=== PATIENT | female | born 1945 | race Caucasian/White ===

== ENCOUNTER 2016-07-17 10:48 | Outpatient (RCR) | payer MEDICARE, OTHER ==
--- OUTSIDE RECORDS SUMMARY | 2016-04-25 08:10 | XMS REPORT | Continuity of Care Document ---
Author Author [facility] Organization [facility] Address Unknown Phone Unavailable Care Team Providers Care Medical Psychotherapist Name Role Phone Shonda Robbins PCP [phone] Source Comments Some departments are not documenting in the electronic medical record. If you do not see the information that you expected, contact Release of Information in the Health Information Management department at [phone] for further assistance in locating additional records.[facility] Active Allergies and Adverse Reactions No Known Allergies Current Medications Prescription Sig. Disp. Refills Start End Date Status Date LEVOTHYROXINE SODIUM Take 50 mg by mouth. Active (LEVOTHYROXINE PO) acyclovir (ZOVIRAX) 400 Take 400 mg by mouth Active mg tablet Twice Daily. estrogens, conjugated,+, Apply 0.5 g to affected Active (PREMARIN) 0.625 mg/g area Every Mo & Tu. vaginal cream mupirocin (BACTROBAN) 2 % Apply to affected area Active topical ointment Twice Daily. fluconazole (DIFLUCAN) 40 Take 200 mg by mouth Active mg/mL oral suspension Daily. FOLIC ACID PO Take 2 mg by mouth Twice Active Daily. potassium chloride,+, Take 20 mEq by mouth Active (MICRO-K) 10 mEq capsule Daily. MULTIVITAMINS Take 1 Tab by mouth Active (MULTI-VITAMIN PO) Daily. CALCIUM CARBONATE/VITAMIN Take 600 mg by mouth Active D2 (CALCIUM + VITAMIN D Daily. PO) magnesium oxide (MAG-OX) Take 400 mg by mouth Active 400 mg tablet Daily. lorazepam (ATIVAN) 0.5 mg Take 1 mg by mouth Twice Active tablet Daily as needed. albuterol 0.083% Inhale 2.5 mg solution as Active (PROVENTIL; VENTOLIN) 2.5 directed As Needed for mg /3 mL (0.083 %) Wheezing. nebulizer solution Active Problems Problem Noted Date SAH (subarachnoid hemorrhage) (HCC) 12/05/2009 Multiple myeloma, without mention of having achieved remission 12/02/2009 Personal history of DVT (deep vein thrombosis) 12/02/2009 Overview: Right leg S/P insertion of IVC (inferior vena caval) filter 12/02/2009 Thrombocytopenia (HCC) 12/02/2009 Social History Tobacco Use Types Packs/Day Years Used Date Former Smoker Quit: 07/21/1979 Alcohol Use Drinks/Week oz/Week Comments No Last Filed Vital Signs Vital Sign Reading Time Taken Blood Pressure 112/72 12/05/2009 4:14 PM CDT Pulse 112 12/05/2009 4:14 PM CDT Temperature 36.7 C (98.1 F) 12/05/2009 4:14 PM CDT Respiratory Rate - - Height 1.575 m (5' 2") 12/04/2009 12:04 PM CDT Weight 62.37 kg (137 lb 8 oz) 12/05/2009 8:42 AM CDT Body Mass Index 25.14 12/05/2009 8:42 AM CDT Oxygen Saturation 96% 12/05/2009 4:14 PM CDT Plan of Care Health Maintenance Due Date Last Done Comments Physical (Comprehensive) 1954 Exam Pertussis Vaccine 1958 Tetanus Vaccine 1964 Breast Cancer Screening 1987 Colorectal Cancer 1997 Screening Shingles Vaccine 2007 Osteoporosis Screening 2012 Prevnar/Pneumovax (#1) 2012 Influenza Vaccine 03/21/2016 Results from Last 3 Months Not on file
[2016-04-25 08:47] LABS: BASOPHILS % (AUTO) 1 % (0-10); EOSINOPHILS # (AUTO) 0.1 10^3/uL (0.0-0.3); EOSINOPHILS % (AUTO) 3 % (0-10); LYMPHOCYTES # (AUTO) 0.5 X 10^3 (1.0-4.0); LYMPHOCYTES % (AUTO) 28 % (12-44); MEAN CORPUSCULAR HEMOGLOBIN 34 PG (25-34); MEAN CORPUSCULAR HGB CONC 35 G/DL (32-36); MEAN CORPUSCULAR VOLUME 98 FL (80-99); MEAN PLATELET VOLUME 10.6 FL (7.4-10.4); MONOCYTES # (AUTO) 0.5 X 10^3 (0.0-1.0); MONOCYTES % (AUTO) 28 % (0-12); NEUTROPHILS # (AUTO) 0.8 X 10^3 (1.8-7.8); NEUTROPHILS % (AUTO) 41 % (42-75); PLATELET COUNT 140 10^3/uL (130-400); RED BLOOD COUNT 4.01 10^6/uL (4.35-5.85); RED CELL DISTRIBUTION WIDTH 13.9 % (10.0-14.5); WHITE BLOOD COUNT 1.9 10^3/uL (4.3-11.0)
[2016-04-25 09:14] LABS: ALBUMIN 3.9 G/DL (3.2-4.5); BILIRUBIN,TOTAL 1.1 MG/DL (0.1-1.0); CALCIUM 9.5 MG/DL (8.5-10.1); CREATININE SERUM 1.04 MG/DL (0.60-1.30); POTASSIUM 4.3 MMOL/L (3.6-5.0)
[2016-04-26 01:31] LABS: LIGHT CHAIN KAPPA SERUM QUANT 41.39 mg/L (3.30-19.40); LIGHT CHAIN LAMBDA SERUM QUANT 27.03 mg/L (5.71-26.30)
[2016-04-30 16:05] LABS: BASOPHILS % (AUTO) 1 % (0-10); EOSINOPHILS # (AUTO) 0.1 10^3/uL (0.0-0.3); EOSINOPHILS % (AUTO) 3 % (0-10); LYMPHOCYTES # (AUTO) 0.7 X 10^3 (1.0-4.0); LYMPHOCYTES % (AUTO) 36 % (12-44); MEAN CORPUSCULAR HEMOGLOBIN 33 PG (25-34); MEAN CORPUSCULAR HGB CONC 34 G/DL (32-36); MEAN CORPUSCULAR VOLUME 97 FL (80-99); MEAN PLATELET VOLUME 10.7 FL (7.4-10.4); MONOCYTES # (AUTO) 0.6 X 10^3 (0.0-1.0); MONOCYTES % (AUTO) 35 % (0-12); NEUTROPHILS # (AUTO) 0.5 X 10^3 (1.8-7.8); NEUTROPHILS % (AUTO) 26 % (42-75); PLATELET COUNT 138 10^3/uL (130-400); RED BLOOD COUNT 3.87 10^6/uL (4.35-5.85); RED CELL DISTRIBUTION WIDTH 13.8 % (10.0-14.5); WHITE BLOOD COUNT 1.8 10^3/uL (4.3-11.0)
[2016-04-30 16:44] LABS: ALANINE AMINOTRANSFERASE 28 U/L (0-55); ALBUMIN 3.6 G/DL (3.2-4.5); ANION GAP 13 MMOL/L (5-14); ASPARTATE AMINO TRANSFERASE 18 U/L (5-34); BILIRUBIN,TOTAL 0.8 MG/DL (0.1-1.0); BLOOD UREA NITROGEN 11 MG/DL (7-18); BUN/CREATININE RATIO 13; CALCIUM 9.5 MG/DL (8.5-10.1); CARBON DIOXIDE 16 MMOL/L (21-32); CHLORIDE 103 MMOL/L (98-107); CREATININE SERUM 0.86 MG/DL (0.60-1.30); GFR ESTIMATED > 60; GLUCOSE 114 MG/DL (70-105); POTASSIUM 4.1 MMOL/L (3.6-5.0); SODIUM 132 MMOL/L (135-145); TOTAL PROTEIN 7.1 G/DL (6.4-8.2)
[2016-05-09 16:07] LABS: CALCIUM 8.9 MG/DL (8.5-10.1); CREATININE SERUM 0.93 MG/DL (0.60-1.30); POTASSIUM 3.7 MMOL/L (3.6-5.0)
[~2016-07-17 10:48] MED LIST: ACYC-109 PO; ACYC400T PO; ACYC400T79; ASP81CT; CALC-9 PO; CLD600T; CYAN10006 PO; DAPS100T3 PO; DECADRON; DENOSUMAB 60 MG/1 ML (PROLIA) CANCER CTR SQ SCH; DXM4T PO; ESCI20TA; FERR-74 PO; FLC100T1; FLC1T; FLUC200T; FLUO20CA25 PO; HYDR-3583 PO; HYDR1TAB PO; KCL20TCR; KCL20TCR PO; LENA15CA PO; LETR2.5T5 PO; LEVO500T78 PO; LEVO500T80 PO; LEVO75TA6 PO; LORA1TAB PO; LOVA20TA2 PO; LVT.05T PO; MGX400T; MPR22T; MPR22TI; MULT-418; MULT-608 PO; MULT1TAB63; NF-SYM625 PO; NIAC1CAP PO; OLAN2.5T19 PO; OMEP20CA12 PO; OMEP20TA2 PO; OXYC-309 PO; OXYC-471 PO; OXYC1CAP PO; OXYCODONE; POTA20TA8 PO; PREMARIN VAG CR45 GM VG; STOOL SOFTENER; WRF1T; [UNRECOGNIZED DRUG - OTHER]
== END 2016-07-24 | disposition home or self-care (01) ==
LOC: ONC 10:48
PROVIDERS: ATTEND Internal Medicine Hematology & Oncology
DX: C90.00 Multiple myeloma not having achieved remission (principal); C50.412 Malignant neoplasm of upper-outer quadrant of left female breast; M85.80 Other specified disorders of bone density and structure, unspecified site; Z92.21 Personal history of antineoplastic chemotherapy; Z92.3 Personal history of irradiation; Z79.811 Long term (current) use of aromatase inhibitors; Z79.899 Other long term (current) drug therapy; Z45.2 Encounter for adjustment and management of vascular access device
CPT/HCPCS: 36415; 36591; 80048; 80053; 82232; 82306; 82728; 82784; 83883; 85025; 87040; 96372; 96523; 99213

== ENCOUNTER 2016-11-05 10:11 | Outpatient (RCR) | payer MEDICARE, OTHER ==
--- OUTSIDE RECORDS SUMMARY | 2016-08-08 09:54 | XMS REPORT | Continuity of Care Document ---
Author Author [facility] Organization [facility] Address Unknown Phone Unavailable Care Team Providers Care Veterinary Milk Specialist Name Role Phone Shonda Robbins PCP [phone] Source Comments Some departments are not documenting in the electronic medical record. If you do not see the information that you expected, contact Release of Information in the Health Information Management department at [phone] for further assistance in locating additional records.[facility] Active Allergies and Adverse Reactions No [...]
[2016-08-08 10:24] LABS: BASOPHILS % (AUTO) 1 % (0-10); EOSINOPHILS # (AUTO) 0.1 10^3/uL (0.0-0.3); EOSINOPHILS % (AUTO) 2 % (0-10); LYMPHOCYTES % (AUTO) 30 % (12-44); MEAN CORPUSCULAR HEMOGLOBIN 32 PG (25-34); MEAN CORPUSCULAR HGB CONC 32 G/DL (32-36); MEAN CORPUSCULAR VOLUME 98 FL (80-99); MONOCYTES # (AUTO) 0.4 X 10^3 (0.0-1.0); MONOCYTES % (AUTO) 11 % (0-12); NEUTROPHILS # (AUTO) 1.9 X 10^3 (1.8-7.8); NEUTROPHILS % (AUTO) 57 % (42-75); PLATELET COUNT 225 10^3/uL (130-400); RED BLOOD COUNT 3.77 10^6/uL (4.35-5.85); RED CELL DISTRIBUTION WIDTH 14.7 % (10.0-14.5); WHITE BLOOD COUNT 3.3 10^3/uL (4.3-11.0)
[2016-08-08 10:52] LABS: ALANINE AMINOTRANSFERASE 17 U/L (0-55); ALBUMIN 3.5 G/DL (3.2-4.5); ANION GAP 10 MMOL/L (5-14); ASPARTATE AMINO TRANSFERASE 14 U/L (5-34); BILIRUBIN,TOTAL 0.5 MG/DL (0.1-1.0); BLOOD UREA NITROGEN 20 MG/DL (7-18); BUN/CREATININE RATIO 23; CARBON DIOXIDE 21 MMOL/L (21-32); CHLORIDE 108 MMOL/L (98-107); CREATININE SERUM 0.86 MG/DL (0.60-1.30); GFR ESTIMATED > 60; GLUCOSE 112 MG/DL (70-105); POTASSIUM 4.3 MMOL/L (3.6-5.0); SODIUM 139 MMOL/L (135-145); TOTAL PROTEIN 6.9 G/DL (6.4-8.2)
[2016-08-09 06:15] LABS: LIGHT CHAIN KAPPA SERUM QUANT 48.17 mg/L (3.30-19.40); LIGHT CHAIN LAMBDA SERUM QUANT 61.17 mg/L (5.71-26.30)
[2016-10-31 10:30] LABS: BASOPHILS % (AUTO) 2 % (0-10); EOSINOPHILS % (AUTO) 2 % (0-10); LYMPHOCYTES # (AUTO) 0.7 X 10^3 (1.0-4.0); LYMPHOCYTES % (AUTO) 37 % (12-44); MEAN CORPUSCULAR HEMOGLOBIN 32 PG (25-34); MEAN CORPUSCULAR HGB CONC 33 G/DL (32-36); MEAN CORPUSCULAR VOLUME 97 FL (80-99); MEAN PLATELET VOLUME 9.1 FL (7.4-10.4); MONOCYTES # (AUTO) 0.5 X 10^3 (0.0-1.0); MONOCYTES % (AUTO) 27 % (0-12); NEUTROPHILS # (AUTO) 0.6 X 10^3 (1.8-7.8); NEUTROPHILS % (AUTO) 33 % (42-75); PLATELET COUNT 206 10^3/uL (130-400); RED BLOOD COUNT 3.78 10^6/uL (4.35-5.85); RED CELL DISTRIBUTION WIDTH 13.3 % (10.0-14.5); WHITE BLOOD COUNT 1.8 10^3/uL (4.3-11.0)
[2016-10-31 10:55] LABS: ALANINE AMINOTRANSFERASE 13 U/L (0-55); ALBUMIN 3.3 G/DL (3.2-4.5); ANION GAP 12 MMOL/L (5-14); ASPARTATE AMINO TRANSFERASE 11 U/L (5-34); BILIRUBIN,TOTAL 0.5 MG/DL (0.1-1.0); BLOOD UREA NITROGEN 11 MG/DL (7-18); BUN/CREATININE RATIO 13; CALCIUM 9.5 MG/DL (8.5-10.1); CARBON DIOXIDE 22 MMOL/L (21-32); CHLORIDE 101 MMOL/L (98-107); CREATININE SERUM 0.87 MG/DL (0.60-1.30); GFR ESTIMATED > 60; GLUCOSE 127 MG/DL (70-105); POTASSIUM 4.2 MMOL/L (3.6-5.0); SODIUM 135 MMOL/L (135-145); TOTAL PROTEIN 6.7 G/DL (6.4-8.2)
[2016-11-01 04:10] LABS: LIGHT CHAIN KAPPA SERUM QUANT 45.29 mg/L (3.30-19.40); LIGHT CHAIN LAMBDA SERUM QUANT 38.14 mg/L (5.71-26.30)
[~2016-11-05 10:11] MED LIST changes: -DENOSUMAB 60 MG/1 ML (PROLIA) CANCER CTR SQ SCH
== END 2016-11-06 | disposition home or self-care (01) ==
LOC: ONC 10:11
PROVIDERS: ATTEND Internal Medicine Hematology & Oncology
DX: C90.00 Multiple myeloma not having achieved remission (principal); C50.412 Malignant neoplasm of upper-outer quadrant of left female breast; M85.80 Other specified disorders of bone density and structure, unspecified site; Z92.21 Personal history of antineoplastic chemotherapy; Z92.3 Personal history of irradiation; Z79.811 Long term (current) use of aromatase inhibitors; Z79.899 Other long term (current) drug therapy
CPT/HCPCS: 36591; 80053; 82232; 82784; 83883; 85025; 96523; 99213

== ENCOUNTER 2017-03-03 07:50 | Outpatient (RCR) | payer MEDICARE, OTHER ==
[~2017-03-03 07:50] MED LIST changes: -OLAN2.5T19 PO; +OLAN2.5T27 PO
[2017-03-03 08:11] LABS: BASOPHILS % (AUTO) 1 % (0-10); EOSINOPHILS # (AUTO) 0.1 10^3/uL (0.0-0.3); EOSINOPHILS % (AUTO) 5 % (0-10); LYMPHOCYTES % (AUTO) 49 % (12-44); MEAN CORPUSCULAR HEMOGLOBIN 35 PG (25-34); MEAN CORPUSCULAR HGB CONC 35 G/DL (32-36); MEAN CORPUSCULAR VOLUME 100 FL (80-99); MEAN PLATELET VOLUME 9.6 FL (7.4-10.4); MONOCYTES # (AUTO) 0.5 X 10^3 (0.0-1.0); MONOCYTES % (AUTO) 24 % (0-12); NEUTROPHILS # (AUTO) 0.4 X 10^3 (1.8-7.8); NEUTROPHILS % (AUTO) 22 % (42-75); PLATELET COUNT 155 10^3/uL (130-400); RED BLOOD COUNT 3.83 10^6/uL (4.35-5.85); RED CELL DISTRIBUTION WIDTH 14.1 % (10.0-14.5)
[2017-03-03 08:37] LABS: ALANINE AMINOTRANSFERASE 20 U/L (0-55); ALBUMIN 3.8 GM/DL (3.2-4.5); ANION GAP 12 MMOL/L (5-14); ASPARTATE AMINO TRANSFERASE 15 U/L (5-34); BILIRUBIN,TOTAL 0.7 MG/DL (0.1-1.0); BLOOD UREA NITROGEN 15 MG/DL (7-18); BUN/CREATININE RATIO 16; CALCIUM 9.6 MG/DL (8.5-10.1); CARBON DIOXIDE 23 MMOL/L (21-32); CHLORIDE 105 MMOL/L (98-107); CREATININE SERUM 0.92 MG/DL (0.60-1.30); GFR ESTIMATED > 60; GLUCOSE 132 MG/DL (70-105); POTASSIUM 3.9 MMOL/L (3.6-5.0); SODIUM 140 MMOL/L (135-145); TOTAL PROTEIN 7.1 GM/DL (6.4-8.2)
[2017-03-04 06:37] LABS: LIGHT CHAIN KAPPA SERUM QUANT 38.05 mg/L (3.30-19.40); LIGHT CHAIN LAMBDA SERUM QUANT 23.25 mg/L (5.71-26.30)
== END 2017-03-09 | disposition home or self-care (01) ==
LOC: ONC 07:50
PROVIDERS: ATTEND Internal Medicine Hematology & Oncology
DX: C90.00 Multiple myeloma not having achieved remission (principal); C50.412 Malignant neoplasm of upper-outer quadrant of left female breast; M85.80 Other specified disorders of bone density and structure, unspecified site; Z92.21 Personal history of antineoplastic chemotherapy; Z92.3 Personal history of irradiation; Z79.811 Long term (current) use of aromatase inhibitors; Z79.899 Other long term (current) drug therapy; Z45.2 Encounter for adjustment and management of vascular access device
CPT/HCPCS: 36591; 80053; 82232; 82784; 83883; 85025; 96523

== ENCOUNTER 2017-04-14 08:56 | Outpatient (RCR) | payer MEDICARE, OTHER | END 2017-04-19 | disposition home or self-care (01) | LOC: ONC 08:56 | PROVIDERS: ATTEND Internal Medicine Hematology & Oncology | DX: C90.00 Multiple myeloma not having achieved remission (principal); C50.412 Malignant neoplasm of upper-outer quadrant of left female breast; M85.80 Other specified disorders of bone density and structure, unspecified site; Z92.21 Personal history of antineoplastic chemotherapy; Z92.3 Personal history of irradiation; Z79.811 Long term (current) use of aromatase inhibitors; Z79.899 Other long term (current) drug therapy; Z45.2 Encounter for adjustment and management of vascular access device | CPT/HCPCS: 96523; 99213 ==

== ENCOUNTER 2017-08-11 09:59 | Outpatient (RCR) | payer MEDICARE, OTHER ==
[2017-06-30 09:57] LABS: BASOPHILS % (AUTO) 1 % (0-10); EOSINOPHILS # (AUTO) 0.1 10^3/uL (0.0-0.3); EOSINOPHILS % (AUTO) 4 % (0-10); HEMATOCRIT 39 % (35-52); HEMOGLOBIN 13.1 G/DL (11.5-16.0); LYMPHOCYTES # (AUTO) 1.1 X 10^3 (1.0-4.0); LYMPHOCYTES % (AUTO) 48 % (12-44); MEAN CORPUSCULAR HEMOGLOBIN 35 PG (25-34); MEAN CORPUSCULAR HGB CONC 34 G/DL (32-36); MEAN CORPUSCULAR VOLUME 103 FL (80-99); MEAN PLATELET VOLUME 10.1 FL (7.4-10.4); MONOCYTES # (AUTO) 0.5 X 10^3 (0.0-1.0); MONOCYTES % (AUTO) 23 % (0-12); NEUTROPHILS # (AUTO) 0.6 X 10^3 (1.8-7.8); NEUTROPHILS % (AUTO) 25 % (42-75); PLATELET COUNT 175 10^3/uL (130-400); RED BLOOD COUNT 3.77 10^6/uL (4.35-5.85); RED CELL DISTRIBUTION WIDTH 13.6 % (10.0-14.5); WHITE BLOOD COUNT 2.4 10^3/uL (4.3-11.0)
[2017-06-30 10:19] LABS: ALBUMIN 3.7 GM/DL (3.2-4.5); BILIRUBIN,TOTAL 0.9 MG/DL (0.1-1.0); CALCIUM 9.4 MG/DL (8.5-10.1); CREATININE SERUM 1.01 MG/DL (0.60-1.30); POTASSIUM 4.2 MMOL/L (3.6-5.0); TOTAL PROTEIN 7.3 GM/DL (6.4-8.2)
[~2017-08-11 09:59] MED LIST changes: -FERR-74 PO; +FERR325T18 PO
== END 2017-08-25 | disposition home or self-care (01) ==
LOC: ONC 09:59
PROVIDERS: ATTEND Internal Medicine Hematology & Oncology
DX: C90.00 Multiple myeloma not having achieved remission (principal); C50.412 Malignant neoplasm of upper-outer quadrant of left female breast; M85.80 Other specified disorders of bone density and structure, unspecified site; Z92.21 Personal history of antineoplastic chemotherapy; Z92.3 Personal history of irradiation; Z79.811 Long term (current) use of aromatase inhibitors; Z79.899 Other long term (current) drug therapy; Z45.2 Encounter for adjustment and management of vascular access device
CPT/HCPCS: 36591; 80053; 82232; 82784; 83883; 85025; 96523; 99213

== ENCOUNTER 2017-09-11 08:57 | Inpatient (IN) | payer MEDICARE, OTHER ==
[~2017-09-11] VITALS: Ht 152.4 cm; Wt 75.1 kg
[2017-09-11] MEDS ORDERED: NS IV 1000 ML 1,000 ML ONE (09:22)
[2017-09-11] MEDS ORDERED: NS IV 1000 ML 1,000 ML IV SCH (09:30)
[2017-09-11 09:37] LABS: BASOPHILS % (AUTO) 0 % (0-10); EOSINOPHILS % (AUTO) 0 % (0-10); HEMATOCRIT 38 % (35-52); HEMOGLOBIN 13.2 G/DL (11.5-16.0); LYMPHOCYTES # (AUTO) 0.4 X 10^3 (1.0-4.0); LYMPHOCYTES % (AUTO) 14 % (12-44); MEAN CORPUSCULAR HEMOGLOBIN 34 PG (25-34); MEAN CORPUSCULAR HGB CONC 35 G/DL (32-36); MEAN CORPUSCULAR VOLUME 97 FL (80-99); MEAN PLATELET VOLUME 10.4 FL (7.4-10.4); MONOCYTES # (AUTO) 0.6 X 10^3 (0.0-1.0); MONOCYTES % (AUTO) 22 % (0-12); NEUTROPHILS # (AUTO) 1.7 X 10^3 (1.8-7.8); NEUTROPHILS % (AUTO) 64 % (42-75); PLATELET COUNT 177 10^3/uL (130-400); RED CELL DISTRIBUTION WIDTH 13.9 % (10.0-14.5); WHITE BLOOD COUNT 2.7 10^3/uL (4.3-11.0)
[2017-09-11 10:01] LABS: ALANINE AMINOTRANSFERASE 39 U/L (0-55); ALBUMIN 3.5 GM/DL (3.2-4.5); ALKALINE PHOSPHATASE 79 U/L (40-136); BILIRUBIN,TOTAL 1.3 MG/DL (0.1-1.0); BUN/CREATININE RATIO 25; CALCIUM 9.6 MG/DL (8.5-10.1); CARBON DIOXIDE 13 MMOL/L (21-32); CHLORIDE 103 MMOL/L (98-107); CREATINE KINASE 115 U/L (29-168); CREATININE SERUM 2.63 MG/DL (0.60-1.30); GFR ESTIMATED 18; GLUCOSE 136 MG/DL (70-105); SODIUM 132 MMOL/L (135-145); TOTAL PROTEIN 7.7 GM/DL (6.4-8.2)
--- NOTE | 2017-09-11 10:11 | ED Cough/URI ---
General Chief Complaint: Cough/Cold/Flu Symptoms Stated Complaint: WEAK,FEELS VERY SICK Nursing Triage Note: PATIENT STATES THAT SHE HAS HAD A COUGH AND SHORTNESS OF BREATH FOR 5 DAYS. SHE HAD BODY ACHES AND NO APPETITIE. Source: patient, family Exam Limitations: no limitations History of Present Illness Date Seen by Provider: Sep 11, 2017 Time Seen by Provider: 10:06 Initial Comments The patient is a 72-year-old white female who has been ill for 5 days with a cough fever and sputum production. Allergies and Home Medications Allergies Coded Allergies: No Known Drug Allergies (Verified Allergy, Unknown, 07/13/08) Home Medications Acyclovir 400 Mg Tablet, 400 MG PO 1200,1700, (Reported) Calcium Carbonate/Vitamin D3 1 Each Tablet, 1 TAB PO DAILY, (Reported) Cyanocobalamin (Vitamin B-12) 1,000 Mcg Tablet, 1,000 MCG PO DAILY, (Reported) Ferrous Sulfate 325 Mg Tablet, 325 MG PO 1700, (Reported) Fluoxetine HCl 20 Mg Capsule, 20 MG PO DAILY, (Reported) Letrozole 2.5 Mg Tablet, 2.5 MG PO DAILY, (Reported) Levofloxacin 500 Mg Tablet, 500 MG PO DAILY@11, #4 Prescribed by: MARGE SPRINGER on 05/04/16 1037 Levothyroxine Sodium 75 Mcg Tablet, 75 MCG PO DAILY, (Reported) Lovastatin 20 Mg Tablet, 20 MG PO DAILY, (Reported) Multivitamins 1 Tab Tablet, 1 TAB PO DAILY, (Reported) Niacin/Inositol Niacinate 1 Each Capsule, 500 MG PO HS, (Reported) Olanzapine 2.5 Mg Tablet, 2.5 MG PO DAILY, (Reported) Omeprazole 20 Mg Capsule.dr, 20 MG PO 1200,1700, (Reported) Oxycodone HCl/Acetaminophen 1 Each Tablet, 1 TAB PO HS, (Reported) Potassium Chloride 20 Meq Tab.er.prt, 20 MEQ PO BID, (Reported) Constitutional: see HPI EENTM: no symptoms reported Respiratory: see HPI, cough, dyspnea on exertion, orthopnea, phlegm, wheezing Cardiovascular: no symptoms reported Gastrointestinal: no symptoms reported Genitourinary: no symptoms reported Musculoskeletal: no symptoms reported Skin: no symptoms reported Psychiatric/Neurological: No Symptoms Reported Hematologic/Lymphatic: No Symptoms Reported Immunological/Allergic: no symptoms reported Past Ncwtxej-Lmaiuw-Ragljv Hx Patient Social History Alcohol Use: Denies Use Recreational Drug Use: No Smoking Status: Never a Smoker Former Smoker, Quit: Apr 30, 1987 2nd Hand Smoke Exposure: No Recent Foreign Travel: No Contact w/Someone Who Travel: No Recent Infectious Disease Expo: No Recent Hopitalizations: Yes Seasonal Allergies Seasonal Allergies: Yes Surgeries History of Surgeries: Yes Surgeries: Hysterectomy, Lumpectomy, Orthopedic Respiratory History of Respiratory Disorde: No Cardiovascular History of Cardiac Disorders: Yes Cardiac Disorders: High Cholesterol Neurological History of Neurological Disord: No Reproductive System Hx Reproductive Disorders: No Sexually Transmitted Disease: No Gastrointestinal History of Gastrointestinal Di: No Musculoskeletal History of Musculoskeletal Dis: Yes (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) Endocrine History of Endocrine Disorders: No Cancer History of Cancer: Yes (MULTIPLE MYELOMA) Cancer: Breast Psychosocial History of Psychiatric Problem: Yes Behavioral Health Disorders: Anxiety, Depression Integumentary History of Skin or Integumenta: No Blood Transfusions History of Blood Disorders: Yes (MULT.MYELOMA,TCP) Adverse Reaction to a Blood Tr: No Family Medical History Significant Family History: Heart Disease, Hypertension Physical Exam Vital Signs Vital Signs - First Documented 09/11/17 09:11 Pulse 110 Resp 26 B/P (MAP) 76/3 (27) Pulse Ox 90 O2 Delivery Room Air Capillary Refill : Less Than 3 Seconds General Appearance: mild distress, moderate distress Eyes: Bilateral Eye Normal Inspection HEENT: normal ENT inspection Neck: full range of motion Respiratory: rhonchi, wheezing Cardiovascular: normal peripheral pulses, regular rate, rhythm, no edema, no gallop, no JVD, no murmur Gastrointestinal: normal bowel sounds Extremities: normal range of motion, non-tender, normal inspection, no pedal edema, no calf tenderness, normal capillary refill, pelvis stable Neurologic/Psychiatric: cytology supervisor II-XII nml as tested, no motor/sensory deficits, alert, normal mood/affect, oriented x 3 Skin: normal color, warm/dry, cyanosis, cool, diaphoresis, damp Lymphatic: no adenopathy, axilla node tender (R), axilla node tender (L), inguinal node tender (R), inguinal node tender (L) Focused Exam Evaluation Lactate Level Laboratory Tests 09/11/17 09:25: Lactic Acid Level 1.80 Lactic Acid Level Laboratory Tests Test 09/11/17 09:25 Lactic Acid Level 1.80 MMOL/L (0.50-2.00) Progress/Results/Core Measures Suspected Sepsis Recent Fever Within 48 Hours: No Infection Criteria Present: Suspected New Infection New/Unexplained Altered Menta: No Sepsis Screen: Possible Severe Sepsis Risk Sepsis Diagnosis: SIRS Temperature: Pulse: 110 Respiratory Rate: 26 Laboratory Tests 09/11/17 09:25: White Blood Count 2.7L Blood Pressure 76 /3 Mean: 27 Laboratory Tests 09/11/17 09:25: Lactic Acid Level 1.80 Laboratory Tests 09/11/17 09:25: Creatinine 2.63H, Platelet Count 177, Total Bilirubin 1.3H Results/Orders Lab Results Laboratory Tests Test 09/11/17 09:25 09/11/17 10:00 Range/Units White Blood Count 2.7 L 4.3-11.0 10^3/uL Red Blood Count 3.90 L 4.35-5.85 10^6/uL Hemoglobin 13.2 11.5-16.0 G/DL Hematocrit 38 35-52 % Mean Corpuscular Volume 97 80-99 FL Mean Corpuscular Hemoglobin 34 25-34 PG Mean Corpuscular Hemoglobin Concent 35 32-36 G/DL Red Cell Distribution Width 13.9 10.0-14.5 % Platelet Count 177 130-400 10^3/uL Mean Platelet Volume 10.4 7.4-10.4 FL Neutrophils (%) (Auto) 64 42-75 % Lymphocytes (%) (Auto) 14 12-44 % Monocytes (%) (Auto) 22 H 0-12 % Eosinophils (%) (Auto) 0 0-10 % Basophils (%) (Auto) 0 0-10 % Neutrophils # (Auto) 1.7 L 1.8-7.8 X 10^3 Lymphocytes # (Auto) 0.4 L 1.0-4.0 X 10^3 Monocytes # (Auto) 0.6 0.0-1.0 X 10^3 Eosinophils # (Auto) 0.0 0.0-0.3 10^3/uL Basophils # (Auto) 0.0 0.0-0.1 10^3/uL Sodium Level 132 L 135-145 MMOL/L Potassium Level 5.0 3.6-5.0 MMOL/L Chloride Level 103 98-107 MMOL/L Carbon Dioxide Level 13 L 21-32 MMOL/L Anion Gap 16 H 5-14 MMOL/L Blood Urea Nitrogen 65 H 7-18 MG/DL Creatinine 2.63 H 0.60-1.30 MG/DL Estimat Glomerular Filtration Rate 18 BUN/Creatinine Ratio 25 Glucose Level 136 H 70-105 MG/DL Lactic Acid Level 1.80 0.50-2.00 MMOL/L Calcium Level 9.6 8.5-10.1 MG/DL Total Bilirubin 1.3 H 0.1-1.0 MG/DL Aspartate Amino Transf (AST/SGOT) 32 5-34 U/L Alanine Aminotransferase (ALT/SGPT) 39 0-55 U/L Alkaline Phosphatase 79 40-136 U/L Total Creatine Kinase 115 29-168 U/L Troponin I < 0.30 <0.30 NG/ML Total Protein 7.7 6.4-8.2 GM/DL Albumin 3.5 3.2-4.5 GM/DL Micro Results Microbiology 09/11/17 Influenza Types A,B Antigen (ARMANDO) - Final, Complete My Orders Orders - PASCUAL NAVA MD Cbc With Automated Diff (09/11/17 09:15) Comprehensive Metabolic Panel (09/11/17 09:15) Creatine Kinase (09/11/17 09:15) Troponin I (09/11/17 09:15) Ua Culture If Indicated (09/11/17 09:15) Chest 1 View, Ap/Pa Only (09/11/17 09:15) Ekg Tracing (09/11/17 09:15) Ns Iv 1000 Ml (Sodium Chloride 0.9%) (09/11/17 09:30) Ns Iv 1000 Ml (Sodium Chloride 0.9%) (09/11/17 09:22) Saline Lock/Iv-Start (09/11/17 09:35) Blood Culture (09/11/17 10:04) Influenza A And B Antigens (09/11/17 10:04) Sputum Culture (09/11/17 10:04) Lactic Acid Analyzer (09/11/17 10:04) Vital Signs/I&O Vital Sign - Last 12Hours 09/11/17 09:11 Pulse 110 Resp 26 B/P (MAP) 76/3 (27) Pulse Ox 90 O2 Delivery Room Air Capillary Refill : Less Than 3 Seconds Blood Pressure Mean: 27 Departure Communication (Admissions) Progress Notes [address] Robbins. The patient will be admitted as a febrile leukopenia Impression Impression: Primary Impression: febrile leukopenia/pneumonia Disposition: ADMITTED INPATIENT Condition: Stable/Unchanged Admissions Decision to Admit Reason: Admit from ER (General) Decision to Admit/Date: Sep 11, 2017 Time/Decision to Admit Time: 11:54 Departure-Patient Inst. Referrals: ORTEGA ROBBINS MD (PCP/Family) Primary Care Physician PASCUAL NAVA MD Sep 11, 2017 10:11
--- NOTE | 2017-09-11 10:25 | Diagnostic Imaging Report ---
INDICATION: Chest congestion and cough. TIME OF EXAM: 10:05 a.m. Correlation is made with prior study from 05/02/2016. The heart size is stable. Left chest wall port has tip overlying SVC. There is some mild elevation of right hemidiaphragm which appears chronic. There is a suggestion of mild patchy infiltrate in the left mid to upper lung field. The right lung is fairly clear. No effusion is seen. There is no pneumothorax. IMPRESSION: Patchy infiltrate/atelectasis left mid upper lung field. Dictated by: Dictated on workstation # [id number]
[2017-09-11] MEDS ORDERED: NS 1000 ML IV BAG IV ONE (11:00)
[2017-09-11 11:59] LABS: BILIRUBIN,URINE NEGATIVE (NEGATIVE); CLARITY,URINE CLEAR; COLOR,URINE YELLOW; GLUCOSE, URINE (UA) NEGATIVE (NEGATIVE); KETONES,URINE NEGATIVE (NEGATIVE); LEUKOCYTE ESTERASE ,URINE 1+ (NEGATIVE); NITRITE,URINE NEGATIVE (NEGATIVE); PH,URINE 5 (5-9); PROTEIN,URINE 2+ (NEGATIVE); UROBILINOGEN,URINE NORMAL (NORMAL)
[2017-09-11 12:14] LABS: BACTERIA,URINE LARGE /HPF; RBC,URINE 0-2 /HPF; SQUAMOUS EPITHELIAL CELL,UR 0-2 /HPF
[2017-09-11] MEDS ORDERED: CEFEPIME HCL 2 GM (MAXIPIME) VIAL ONE (12:14)
[2017-09-11] MEDS ORDERED: NS (IVPB) 0 ML ONE (12:15)
[2017-09-11] MEDS ORDERED: CEFEPIME INJECTION 2,000 MG in NS (IVPB) 50 ML IV ONE (12:15)
[2017-09-11 13:20] VITALS: BP 115/57
[2017-09-11] MEDS ORDERED: MULT1TAB69 PO (13:59)
[2017-09-11] MEDS ORDERED: CALC-6 PO (13:59)
[2017-09-11] MEDS ORDERED: NIAC500T24 PO (13:59)
[2017-09-11] MEDS ORDERED: LOSA50TA36 PO (13:59)
[2017-09-11] MEDS ORDERED: ASPI-983 PO (14:17)
[2017-09-11] MEDS ORDERED: VANCOMYCIN 1250 MG/NS 250 ML IVPB IV NR ×2 (14:30)
[2017-09-11] MEDS: NS IV 1000 ML 1,000 ML IV SCH (14:31)
[2017-09-11 15:04] VITALS: BP 108/53
[2017-09-11] MEDS ORDERED: RT-ALBUTEROL/IPRATROPIUM 3 ML (DUONEB) VIAL INH PRN (15:15)
[2017-09-11 16:00] VITALS: BP 127/68
--- NOTE | 2017-09-11 16:15 | History & Physicial ---
History of Present Illness History of Present Illness Reason for visit/HPI PT IS A 72 Y/O FEMALE WHO PRESENTED TO THE HOSPITAL AFTER HAVING OVER 5 DAYS OF PROGRESSIVE ILLNESS. SHE APPARENTLY STARTED TO HAVE COUGH, CONGESTION, SHORTNESS OF BREATH AND HER FAMILY TRIED TO CONVINCE HER TO COME TO THE OFFICE OR HOSPITAL EARLIER THIS WEEK, BUT SHE REFUSED UNTIL TODAY. HER DAUGHTER CALLED THE OFFICE, GOT HER AN APPT, AND THEN CANCELLED THE APPT AND TOOK HER TO THE EMERGENCY DEPARTMENT INSTEAD. SHE WAS SEEN IN THE ER AND FOUND TO HAVE PNEUMONIA, INFLUENZA A, AND URINARY TRACT INFECTION. Date of Admission Sep 11, 2017 at 12:00 Date Seen by Provider: Sep 11, 2017 Time Seen by Provider: 18:50 I consulted on this patient on 09/11/17 16:15 Attending Physician Ortega Robbins MD Admitting Physician Ortega Robbins MD Consult Allergies and Home Medications Allergies Coded Allergies: No Known Drug Allergies (Verified , 09/11/17) Home Medications Acyclovir 400 Mg Tablet, 400 MG PO DAILY, (Reported) Aspirin 81 Mg Tablet.dr, 81 MG PO DAILY, (Reported) Calcium Carbonate/Vitamin D3 1 Each Tablet, 1 TAB PO DAILY, (Reported) Cyanocobalamin (Vitamin B-12) 1,000 Mcg Tablet, 1,000 MCG PO DAILY, (Reported) Ferrous Sulfate 325 Mg Tablet, 325 MG PO 1700, (Reported) Fluoxetine HCl 20 Mg Capsule, 20 MG PO DAILY, (Reported) Letrozole 2.5 Mg Tablet, 2.5 MG PO DAILY, (Reported) Levothyroxine Sodium 75 Mcg Tablet, 75 MCG PO DAILY, (Reported) Losartan Potassium 50 Mg Tablet, 50 MG PO DAILY, (Reported) Lovastatin 20 Mg Tablet, 20 MG PO HS, (Reported) Multivitamin 1 Each Tablet, 1 TAB PO DAILY, (Reported) Niacinamide 500 Mg Tablet, 500 MG PO HS, (Reported) Olanzapine 2.5 Mg Tablet, 2.5 MG PO DAILY, (Reported) Omeprazole 20 Mg Capsule.dr, 20 MG PO 1200,1700, (Reported) Oxycodone HCl/Acetaminophen 1 Each Tablet, 1 TAB PO Q4H PRN for PAIN-MODERATE, ( Reported) Potassium Chloride 20 Meq Tab.er.prt, 20 MEQ PO BID, (Reported) Past Kaqxzvb-Fidsss-Bkykhm Hx Patient Social History Marrital Status: Living Status: LIVES AT HOME WITHHSER Employed/Student: retired Alcohol Use: Denies Use Recreational Drug Use: No Smoking Status: Former Smoker Former Smoker, Quit: Apr 30, 1987 2nd Hand Smoke Exposure: No Physical Abuse Screen: No Sexual Abuse: No Recent Foreign Travel: No Contact w/other who traveled: No Recent Hopitalizations: Yes Recent Infectious Disease Expo: No Immunizations Up To Date Date of Influenza Vaccine: Apr 20, 2017 Seasonal Allergies Seasonal Allergies: Yes Surgeries Yes Hysterectomy, Lumpectomy, Orthopedic Respiratory No Cardiovascular Yes High Cholesterol Neurological No Reproductive System : No Hx Reproductive Disorders: No Sexually Transmitted Disease: No Genitourinary No Gastrointestinal No Musculoskeletal Yes Endocrine History of Endocrine Disorders: No HEENT History of HEENT Disorders: No Loss of Vision: Denies Cancer Yes (MULTIPLE MYELOMA) Breast Did You Recieve Any Treatments: Yes Type of Treatment: Chemotherapy, Other (BONE MARROW TRANSPLANT) Psychosocial History of Psychiatric Problem: Yes Behavioral Health Disorders: Anxiety, Depression Integumentary History of Skin or Integumenta: No Blood Transfusions History of Blood Disorders: Yes (MULT.MYELOMA) Adverse Reaction to a Blood Tr: No Reviewed Nursing Assessment Reviewed/Agree w Nursing PMH: Yes Family Medical History Significant Family History: Heart Disease, Hypertension Family Hx: Constitutional: chills, diaphoresis, fever, malaise, weakness EENTM: hoarseness, No blurred vision, No mouth pain, No throat pain Respiratory: cough, dyspnea on exertion, phlegm, short of breath, wheezing Cardiovascular: No chest pain, No edema, No palpitations Gastrointestinal: No abdominal pain, No constipation, No diarrhea, No nausea, No vomiting Genitourinary: frequency Musculoskeletal: No back pain, No joint pain, muscle weakness Skin: no symptoms reported Psychiatric/Neurological: Denies Anxiety, Depressed All Other Systems Reviewed Negative Unless Noted: Yes Physical Exam Vital Signs Vital Signs - First Documented 09/11/17 09/11/17 09/11/17 09:11 13:20 14:58 Temp 100.2 Pulse 110 Resp 26 B/P (MAP) 76/53 (61) Pulse Ox 90 O2 Delivery Room Air O2 Flow Rate 2.50 Capillary Refill : Less Than 3 SecondsLess Than 3 Seconds General Appearance: WD/WN, Mild Distress Eyes: Bilateral Eye Normal Inspection, Bilateral Eye PERRL, Bilateral Eye EOMI HEENT: PERRL/EOMI, Pharynx Normal Neck: Full Range of Motion, Supple Respiratory: Crackles (IN BASES), Decreased Breath Sounds, Rhonci, Wheezing Cardiovascular: Regular Rate, Rhythm, No Edema Gastrointestinal: Normal Bowel Sounds, Non Tender, Soft Rectal: Deferred Back: Normal Inspection, No CVA Tenderness, No Vertebral Tenderness Extremity: Normal Capillary Refill, No Pedal Edema Neurologic/Psychiatric: Alert, Oriented x3, Normal Mood/Affect Skin: Warm/Dry Lymphatic: No Adenopathy Assessment/Plan Assessment and Plan INFLUENZA PNEUMONIA DEHYDRATION ACUTE RENAL INSUFFICIENCY URINARY TRACT INFECTION CHRONIC DEPRESSION CHRONIC NEUTROPENIA WITH WHITE COUNT NORMAL, BUT ELEVATED FOR THIS PATIENT. INFLUENZA AND PNEUMONIA - START TAMIFLU AND CONTINUE WITH BROAD SPECTRUM COVERAGE UNTIL SPUTUM AND BLOOD CULTURES RETURN. MONITOR SYMPTOMS. MONITOR SERIAL CHEST XRAYS, MAT PROTOCOL. DEHYDRATION - IV FLUIDS FOR HYDRATION ACUTE RENAL INSUFFICIENCY - IV FLUIDS, MONITOR RENAL FUNCTION WITH SERIAL LABS. URINARY TRACT INFECTION - ON IV ANTIBIOTICS, WAIT ON URINE CULTURE. CHRONIC DEPRESSION - RESUME HOME MEDICATIONS. CHRONIC NEUTROPENIA WITH WHITE COUNT NORMAL, BUT ELEVATED FOR THIS PATIENT. PT IS ACUTELY ILL AND I EXPECT THAT SHE WILL NEED TO BE IN THE HOSPITAL AT LEAST 3-4 MIDNIGHTS SHE HAS SIGNIFICANT ILLNESS AND WILL NEED IV ANTIBIOTICS , HYDRATION, AND PHYSICAL THERAPY. I SUSPECT THAT SHE WILL NEED A FEW WEEKS A JAIL FOR SKILLED THERAPY FOR RECOVERY PRIOR TO GOING HOME. FAMILY H INDICATED THAT THEY WOULD PREFER [facility] ON DISCHARGE. Problems: Admission Diagnosis INFLUENZA PNEUMONIA DEHYDRATION ACUTE RENAL INSUFFICIENCY URINARY TRACT INFECTION CHRONIC DEPRESSION CHRONIC NEUTROPENIA WITH WHITE COUNT NORMAL, BUT ELEVATED FOR THIS PATIENT. Clinical Quality Measures DVT/VTE Risk/Contraindication: Risk Factor Score Per Nursin RFS Level Per Nursing on Admit: 4+=Very High ORTEGA ROBBINS MD Sep 11, 2017 16:15
[2017-09-11] MEDS ORDERED: ACETAMINOPHEN 500 MG TAB (TYLENOL) PO PRN (18:15)
[2017-09-11] MEDS ORDERED: NS IV 1000 ML 1,000 ML IV ONE (19:15)
[2017-09-11 19:45] VITALS: BP 106/66
[2017-09-11] MEDS ORDERED: OSELTAMIVIR 30 MG (TAMIFLU) BOX OF 10 PO SCH (20:00)
[2017-09-11] MEDS ORDERED: KETOROLAC 15 MG/ML VIAL IVP NR (20:30)
[2017-09-11] MEDS ORDERED: OSELTAMIVIR 75 MG (TAMIFLU) BOX OF 10 PO SCH (21:00)
[2017-09-11] MEDS: RT-ALBUTEROL/IPRATROPIUM 3 ML (DUONEB) VIAL INH SCH (21:04)
--- NOTE | 2017-09-11 22:05 | CONSULTATION REPORT ---
DATE OF SERVICE: 09/11/2017 The patient is admitted to room 432. REFERRING AND PRIMARY PHYSICIAN: Disha Robbins MD. IMPRESSION: 1. A 72-year-old female admitted with fever, diarrhea and increasing weakness. 2. Influenza A positive. 3. Acute on chronic renal failure due to dehydration. 4. 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 On surveillance since then without active treatment. 5. Stage I breast cancer, status post lumpectomy and sentinel lymph node biopsy followed by radiation therapy. Currently, on adjuvant hormonal therapy with letrozole 2.5 mg daily. RECOMMENDATIONS: 1. Agree with inpatient admission and aggressive IV hydration. Symptomatic care for influenza A. 2. Monitor her CBC and CMP serially. 3. With regards to multiple myeloma and breast cancer, the patient has been stable clinically and she does not need any treatment or investigation at this point. Once she is taking her oral medications, I will restart the letrozole 2.5 mg daily. 4. We will follow the patient with you. BRIEF HISTORY: The patient is a 72-year-old female who was admitted to the hospital with a 5-day history of fever, diarrhea and increasing weakness. She was evaluated in the emergency room and found to be positive for influenza A. Further workup showed acute on chronic renal failure due to dehydration. She was aggressively hydrated and admitted to the hospital for further management. She had borderline leukopenia and neutropenia and hematology consultation was obtained. PAST MEDICAL HISTORY: The patient has a history of multiple myeloma, IgA subtype, diagnosed in 2004. She underwent radiation to lower thoracic and lumbar spine initially followed by tandem transplants in 05/2005 and 08/2005. Recurrence of myeloma diagnosed in January 2007 and underwent chemotherapy with VDT/PACE regimen followed by VDT maintenance until August 2007 when it was changed to VRd regimen and continued until 08/2009. The maintenance was changed to Revlimid and dexamethasone until 11/2009 when the patient developed a subarachnoid hemorrhage and sepsis as well as significant thrombocytopenia. At this time, maintenance treatment for myeloma was discontinued and the patient has been on surveillance since then without evidence of progression. The patient was diagnosed with left breast cancer and underwent a lumpectomy and sentinel lymph node biopsy followed by adjuvant radiation therapy. She has been on adjuvant hormonal therapy with letrozole 2.5 mg daily since then. She has a history of osteoporosis and some treatment with calcium, vitamin D and Prolia. She also has hypothyroidism, gastroesophageal reflux disease and depression. Remote history of DVT and on anticoagulation. SOCIAL HISTORY: The patient is and lives in [facility]. 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 A [id number] history of tobacco use in the remote past. No history of alcohol or other recreational drug use. FAMILY HISTORY: Unremarkable with no major malignancies that the patient knows of. History of coronary artery disease in her mother. Her sister has history of multiple sclerosis. PHYSICAL EXAMINATION: GENERAL: Today showed elderly female, weak appearing, awake and oriented and in mild distress due to the myalgias. VITAL SIGNS: Her temperature was 98.4, pulse rate of 108, respirations 20, blood pressure 127/68 with 93% saturation on 2.5 liters of oxygen by nasal cannula. During evaluation at the emergency room, her blood pressure was 76/53 with pulse rate of 110. HEENT: Normocephalic, extraocular muscles intact, conjunctivae pink. Oral mucosa dry. NECK: Supple, with no JVD. No cervical, supraclavicular or axillary lymphadenopathy palpable. CHEST: Symmetrical. LUNGS: With rhonchi and scattered lung young bilaterally. No wheezes or rales heard. HEART: Tachycardic, regular with no murmurs heard. ABDOMEN: Obese, soft, nontender with no hepatosplenomegaly or other masses palpable. EXTREMITIES: Showed no edema. NEUROLOGIC: Showed no focal motor deficits. LABORATORY DATA: CBC done today showed WBC 2.7, hemoglobin 13.2, platelet count 177,000 with neutrophil count of 1.7. Chemistry panel showed sodium 132 and CO2 level of 13. BUN was 65 and creatinine 2.63 with GFR 18. Previous chemistry panel from 06/30/2017 had shown BUN of 14 and creatinine 1.01 with GFR of 54 mL per minute. Total bilirubin was slightly elevated at 1.3 with the rest of the liver function studies within normal limits. Lactic acid level was 1.8. Urinalysis done today showed leukocyte esterase 1+, 5-10 WBC and large bacteria. Coarse granular casts were more than 50. Culture is pending. Chest x-ray done today showed patchy infiltrate and atelectasis in the left mid upper lung field. Thank you for allowing me to participate in this patient's care. I will follow the patient with you and make appropriate recommendations. Job ID: [id number] DocumentID: [id number] Dictated Date: 09/11/2017 18:27:50 Director Plans Date: 09/11/2017 22:04:38 Dictated By: MARGE SPRINGER MD [facility]ara
[2017-09-12 00:25] VITALS: BP 101/54
[2017-09-12] MEDS: NS IV 1000 ML 1,000 ML IV SCH ×3 (01:35→19:50)
[2017-09-12] MEDS: RT-ALBUTEROL/IPRATROPIUM 3 ML (DUONEB) VIAL INH SCH ×6 (03:39→21:12)
[2017-09-12 04:10] VITALS: BP 99/55
[2017-09-12 06:08] LABS: BASOPHILS % (AUTO) 1 % (0-10); EOSINOPHILS % (AUTO) 0 % (0-10); HEMATOCRIT 29 % (35-52); HEMOGLOBIN 9.8 G/DL (11.5-16.0); LYMPHOCYTES # (AUTO) 0.2 X 10^3 (1.0-4.0); LYMPHOCYTES % (AUTO) 29 % (12-44); MEAN CORPUSCULAR HEMOGLOBIN 33 PG (25-34); MEAN CORPUSCULAR HGB CONC 34 G/DL (32-36); MEAN CORPUSCULAR VOLUME 100 FL (80-99); MONOCYTES # (AUTO) 0.3 X 10^3 (0.0-1.0); MONOCYTES % (AUTO) 46 % (0-12); NEUTROPHILS # (AUTO) 0.2 X 10^3 (1.8-7.8); NEUTROPHILS % (AUTO) 23 % (42-75); PLATELET COUNT 144 10^3/uL (130-400); RED BLOOD COUNT 2.93 10^6/uL (4.35-5.85); RED CELL DISTRIBUTION WIDTH 14.1 % (10.0-14.5)
[2017-09-12 06:10] LABS: WHITE BLOOD COUNT 0.7 10^3/uL (4.3-11.0)
[2017-09-12] MEDS: LEVOTHYROXINE 75 MCG (LEVOTHROID) TABLET PO SCH (06:33)
[2017-09-12 06:36] LABS: ALBUMIN 2.6 GM/DL (3.2-4.5); BILIRUBIN,TOTAL 0.7 MG/DL (0.1-1.0); CALCIUM 7.9 MG/DL (8.5-10.1); CREATININE SERUM 1.35 MG/DL (0.60-1.30); POTASSIUM 4.7 MMOL/L (3.6-5.0); TOTAL PROTEIN 5.4 GM/DL (6.4-8.2)
[2017-09-12 08:00] VITALS: BP 116/58
--- NOTE | 2017-09-12 08:51 | Progress Note (SOAP) ---
Subjective Date Seen by Provider: Sep 12, 2017 Time Seen by Provider: 09:20 Subjective/Events-last exam PT STILL FEELING QUITE POORLY - HER DAUGHTER REPORTS THAT HER MOM HAS BEEN PERSISTENTLY COUGHING, HAVING INTERMITTENT FEVERS AND HAS BEEN HAVING PAIN ON HER BUTTOCKS WELL. Review of Systems General: Chills, Night Sweats, Fatigue, Malaise HEENT: No Head Aches Pulmonary: Dyspnea, Cough Cardiovascular: No: Chest Pain Gastrointestinal: No: Nausea, Abdominal Pain Genitourinary: No Dysuria, Frequency, Incontinence Neurological: Weakness Objective Exam Vital Signs Date Time Temp Pulse Resp B/P (MAP) Pulse Ox O2 Delivery O2 Flow Rate FiO2 09/12/17 04:10 97.7 88 26 99/55 (70) 96 Nasal Cannula 2.50 09/12/17 03:39 97 Nasal Cannula 2.00 09/12/17 00:25 96.6 103 20 101/54 (70) 93 Nasal Cannula 2.50 09/11/17 21:05 95 Nasal Cannula 2.00 09/11/17 20:20 93 Nasal Cannula 2.50 09/11/17 19:45 98.7 104 22 106/66 (79) 93 Nasal Cannula 2.50 09/11/17 16:00 98.4 108 20 127/68 (87) 93 Nasal Cannula 2.50 09/11/17 15:04 110 90 09/11/17 14:58 Nasal Cannula 2.50 09/11/17 13:20 100.2 106 28 115/57 (76) 09/11/17 13:11 110 26 108/53 (61) 90 09/11/17 09:11 110 26 76/53 (61) 90 Room Air I & O 09/12/17 07:00 Intake Total 1712.5 ml Balance 1712.5 ml Capillary Refill : Less Than 3 SecondsLess Than 3 Seconds General Appearance: No Apparent Distress, WD/WN HEENT: PERRL/EOMI, Pharynx Normal Neck: Full Range of Motion, Supple Respiratory: Chest Non Tender, Decreased Breath Sounds Cardiovascular: Regular Rate, Rhythm Gastrointestinal: normal bowel sounds, non tender, soft, no organomegaly, no pulsatile mass Extremity: Non Tender, No Calf Tenderness, No Pedal Edema Neurologic/Psychiatric: Alert Skin: Ecchymosis (OF BUTTOCK/VAGINAL REGION) Results Lab Laboratory Tests 09/11/17 09:25: White Blood Count 2.7L, Red Blood Count 3.90L, Hemoglobin 13.2, Hematocrit 38, Mean Corpuscular Volume 97, Mean Corpuscular Hemoglobin 34, Mean Corpuscular Hemoglobin Concent 35, Red Cell Distribution Width 13.9, Platelet Count 177, Mean Platelet Volume 10.4, Neutrophils (%) (Auto) 64, Lymphocytes (%) (Auto) 14 , Monocytes (%) (Auto) 22H, Eosinophils (%) (Auto) 0, Basophils (%) (Auto) 0, Neutrophils # (Auto) 1.7L, Lymphocytes # (Auto) 0.4L, Monocytes # (Auto) 0.6, Eosinophils # (Auto) 0.0, Basophils # (Auto) 0.0, Sodium Level 132L, Potassium Level 5.0, Chloride Level 103, Carbon Dioxide Level 13L, Anion Gap 16H, Blood Urea Nitrogen 65H, Creatinine 2.63H, Estimat Glomerular Filtration Rate 18, BUN/ Creatinine Ratio 25, Glucose Level 136H, Lactic Acid Level 1.80, Calcium Level 9.6, Total Bilirubin 1.3H, Aspartate Amino Transf (AST/SGOT) 32, Alanine Aminotransferase (ALT/SGPT) 39, Alkaline Phosphatase 79, Total Creatine Kinase 115, Troponin I < 0.30, Total Protein 7.7, Albumin 3.5 09/11/17 11:51: Urine Color YELLOW, Urine Clarity CLEAR, Urine pH 5, Urine Specific [place] 1.015L, Urine Protein 2+H, Urine Glucose (UA) NEGATIVE, Urine Ketones NEGATIVE, Urine Nitrite NEGATIVE, Urine Bilirubin NEGATIVE, Urine Urobilinogen NORMAL, Urine Leukocyte Esterase 1+H, Urine RBC (Auto) 1+H, Urine RBC 0-2, Urine WBC 5- 10H, Urine Squamous Epithelial Cells 0-2, Urine Crystals NONE, Urine Bacteria LARGEH, Urine Casts PRESENT, Urine Coarse Granular Casts >50H, Urine Mucus NEGATIVE, Urine Culture Indicated YES 09/12/17 05:55: White Blood Count 0.7*L, Red Blood Count 2.93L, Hemoglobin 9.8#L, Hematocrit 29L , Mean Corpuscular Volume 100H, Mean Corpuscular Hemoglobin 33, Mean Corpuscular Hemoglobin Concent 34, Red Cell Distribution Width 14.1, Platelet Count 144, Mean Platelet Volume 10.0, Neutrophils (%) (Auto) 23L, Lymphocytes (% ) (Auto) 29, Monocytes (%) (Auto) 46H, Eosinophils (%) (Auto) 0, Basophils (%) ( Auto) 1, Neutrophils # (Auto) 0.2L, Lymphocytes # (Auto) 0.2L, Monocytes # (Auto ) 0.3, Eosinophils # (Auto) 0.0, Basophils # (Auto) 0.0, Sodium Level 140, Potassium Level 4.7, Chloride Level 118#H, Carbon Dioxide Level 13L, Anion Gap 9 , Blood Urea Nitrogen 47H, Creatinine 1.35H, Estimat Glomerular Filtration Rate 39, BUN/Creatinine Ratio 35, Glucose Level 86, Calcium Level 7.9L, Total Bilirubin 0.7, Aspartate Amino Transf (AST/SGOT) 23, Alanine Aminotransferase ( ALT/SGPT) 27, Alkaline Phosphatase 78, Total Protein 5.4L, Albumin 2.6L Microbiology 09/11/17 Influenza Types A,B Antigen (ARMANDO) - Final, Complete 09/11/17 Urine Culture - Preliminary, Resulted Escherichia coli Assessment/Plan Assessment/Plan Assess & Plan/Chief Complaint INFLUENZA PNEUMONIA DEHYDRATION ACUTE RENAL INSUFFICIENCY URINARY TRACT INFECTION CHRONIC DEPRESSION CHRONIC NEUTROPENIA WITH WHITE COUNT NORMAL, BUT ELEVATED FOR THIS PATIENT. INFLUENZA AND PNEUMONIA - STARTED TAMIFLU AND CONTINUE WITH ANTIBIOTICS - CHANGE TO ROCEPHIN - HAEMOPHILUS INFLUENZAE AND ECOLI AND INFLUENZA A - CLOSELY MONITOR SYMPTOMS. MONITOR SERIAL CHEST XRAYS, MAT PROTOCOL. DEHYDRATION - IV FLUIDS FOR HYDRATION ACUTE RENAL INSUFFICIENCY - IV FLUIDS, MONITOR RENAL FUNCTION WITH SERIAL LABS. URINARY TRACT INFECTION - ON IV ANTIBIOTICS, WAIT ON URINE CULTURE. CHRONIC DEPRESSION - RESUME HOME MEDICATIONS. NEUTROPENIA - DR. SPRINGER WILL GIVE GRANIX TODAY - ANTICIPATE INCREASE IN WHITE COUNT, MONITOR SYMPTOMS. PT IS ACUTELY ILL AND I EXPECT THAT SHE WILL NEED TO BE IN THE HOSPITAL AT LEAST 3-4 MIDNIGHTS SHE HAS SIGNIFICANT ILLNESS AND WILL NEED IV ANTIBIOTICS , HYDRATION, AND PHYSICAL THERAPY. I SUSPECT THAT SHE WILL NEED A FEW WEEKS A SENIOR LIVING FOR SKILLED THERAPY FOR RECOVERY PRIOR TO GOING HOME. FAMILY H INDICATED THAT THEY WOULD PREFER [facility] ON DISCHARGE. Clinical Quality Measures DVT/VTE Risk/Contraindication: Risk Factor Score Per Nursin RFS Level Per Nursing on Admit: 4+=Very High ORTEGA PIERRE MD Sep 12, 2017 08:51
--- NOTE | 2017-09-12 09:05 | Diagnostic Imaging Report ---
Indication: Cough and congestion. Time of exam: 8:49 AM Correlation is made with prior study from one day earlier. Findings: Left chest wall port has tip overlying the SVC. The heart size is stable. Minimal infiltrate left mid lung is seen. There is also some questionable minimal infiltrate or atelectasis in the right base. No effusion or pneumothorax is seen. Impression: Minimal bilateral infiltrate/atelectasis, similar to the examination one day earlier. Dictated by: Dictated on workstation # [id number]
[2017-09-12] MEDS: FLUoxetine HCL 20 MG (PROzac) CAP PO SCH (09:07)
[2017-09-12] MEDS: ACYCLOVIR 400 MG TABLET (ZOVIRAX) PO SCH (09:07)
[2017-09-12] MEDS: OLANZapine 2.5 MG (ZyPREXA) TAB PO SCH (09:08)
[2017-09-12] MEDS: OSELTAMIVIR 30 MG (TAMIFLU) BOX OF 10 PO SCH ×2 (09:08→19:50)
[2017-09-12] MEDS: cefTRIAXone INJECTION 1,000 MG in NS (IVPB) 50 ML IV SCH (10:43)
--- NOTE | 2017-09-12 11:29 | Progress Note-Standard ---
Standard Progress Note Progress Notes/Assess & Plan Date Seen by Provider: Sep 12, 2017 Time Seen by Provider: 11:23 Progress/Assessment & Plan 72-year-old female well-known to me with history of multiple myeloma diagnosed in 2004 as well as stage I breast cancer diagnosed in 2010. Patient was initially treated with the tandem transplants and maintenance therapy until 2009 for the myeloma. All treatments discontinued at that time because of severe cytopenias and subarachnoid bleeding. She is on adjuvant hormonal treatment for the breast cancer with letrozole 2.5 mg daily. Patient admitted with increasing weakness, fever, diarrhea and vomiting. Initial evaluation showed she was positive for influenza A. Chest x-ray showed infiltrates consistent with pneumonia and sputum studies showing Haemophilus influenza. UA showing more than 100,000 colonies of Escherichia coli. Patient is on ceftriaxone. Had evidence of acute on chronic renal failure due to dehydration at the time of admission. This has improved significantly with hydration. Patient is feeling better clinically and exam is stable. Lab work reviewed and total white count has dropped to 0.7. Because of bacterial pneumonia and urinary tract infection, I will start her on G-CSF 480 g subcutaneous daily until ANC more than 10,000. Daily CBC ordered. Dr. Rodriguez is covering this weekend for any problems. MARGE SPRINGER Sep 12, 2017 11:29
[2017-09-12] MEDS: TBO-FILGRASTIM 480 MCG/0.8 ML (GRANIX) SQ SCH (11:31)
[2017-09-12 12:00] VITALS: BP 119/65
[2017-09-12] MEDS ORDERED: CEFEPIME 1 GM/NS 50 ML IV SCH ×2 (12:00)
[2017-09-12] MEDS: oxyCODONE/APAP 5/325MG (PERCOCET 5) TABLET PO PRN ×2 (14:01→19:50)
[2017-09-12] MEDS ORDERED: VANCOMYCIN 1 GM/NS 250 ML IVPB IV SCH ×2 (14:30)
[2017-09-12 15:58] VITALS: BP 110/55
[2017-09-12] MEDS ORDERED: PATIENT MAY USE OWN MEDS, ALL MC SCH (17:45)
[2017-09-12] MEDS: LETROZOLE 2.5 MG (FEMARA) TAB PO SCH (17:53)
[2017-09-12 19:40] VITALS: BP 123/58
[2017-09-12] MEDS: MENTHOL/ZINC OXIDE (CALMOSEPTINE) 113 GM TUBE TOP SCH (19:59)
[2017-09-13] VITALS (20 sets, daily range): BP systolic 117–156; BP diastolic 57–86
[2017-09-13] MEDS: RT-ALBUTEROL/IPRATROPIUM 3 ML (DUONEB) VIAL INH SCH ×6 (02:00→21:06)
[2017-09-13] MEDS: oxyCODONE/APAP 5/325MG (PERCOCET 5) TABLET PO PRN ×2 (03:54→08:24)
[2017-09-13] MEDS: NS IV 1000 ML 1,000 ML IV SCH (05:45)
[2017-09-13] MEDS: LEVOTHYROXINE 75 MCG (LEVOTHROID) TABLET PO SCH (05:45)
[2017-09-13 06:01] LABS: BASOPHILS % (AUTO) 1 % (0-10); EOSINOPHILS % (AUTO) 1 % (0-10); HEMATOCRIT 29 % (35-52); HEMOGLOBIN 9.9 G/DL (11.5-16.0); LYMPHOCYTES # (AUTO) 0.3 X 10^3 (1.0-4.0); LYMPHOCYTES % (AUTO) 16 % (12-44); MEAN CORPUSCULAR HEMOGLOBIN 33 PG (25-34); MEAN CORPUSCULAR HGB CONC 34 G/DL (32-36); MEAN CORPUSCULAR VOLUME 99 FL (80-99); MEAN PLATELET VOLUME 9.6 FL (7.4-10.4); MONOCYTES # (AUTO) 0.5 X 10^3 (0.0-1.0); MONOCYTES % (AUTO) 23 % (0-12); NEUTROPHILS # (AUTO) 1.3 X 10^3 (1.8-7.8); NEUTROPHILS % (AUTO) 59 % (42-75); PLATELET COUNT 164 10^3/uL (130-400); RED BLOOD COUNT 2.96 10^6/uL (4.35-5.85); RED CELL DISTRIBUTION WIDTH 14.6 % (10.0-14.5); WHITE BLOOD COUNT 2.2 10^3/uL (4.3-11.0)
[2017-09-13 06:31] LABS: CALCIUM 8.1 MG/DL (8.5-10.1); CREATININE SERUM 0.94 MG/DL (0.60-1.30); POTASSIUM 4.4 MMOL/L (3.6-5.0)
[2017-09-13] MEDS: cefTRIAXone INJECTION 1,000 MG in NS (IVPB) 50 ML IV SCH (08:17)
[2017-09-13] MEDS: MENTHOL/ZINC OXIDE (CALMOSEPTINE) 113 GM TUBE TOP SCH ×2 (08:18→22:51)
[2017-09-13] MEDS: OSELTAMIVIR 30 MG (TAMIFLU) BOX OF 10 PO SCH ×2 (08:18→21:28)
[2017-09-13] MEDS: TBO-FILGRASTIM 480 MCG/0.8 ML (GRANIX) SQ SCH (08:19)
[2017-09-13] MEDS: OLANZapine 2.5 MG (ZyPREXA) TAB PO SCH (08:19)
[2017-09-13] MEDS: FLUoxetine HCL 20 MG (PROzac) CAP PO SCH (08:19)
[2017-09-13] MEDS: LETROZOLE 2.5 MG (FEMARA) TAB PO SCH (08:19)
[2017-09-13] MEDS: ACYCLOVIR 400 MG TABLET (ZOVIRAX) PO SCH (08:19)
--- NOTE | 2017-09-13 12:49 | Physician Progress Note ---
Progress Note Assessment/Plan Time Seen by Provider: 12:35 Events since last exam Cover for Dr Vail. 72-year-old female well-known to me with history of multiple myeloma diagnosed in 2004 as well as stage I breast cancer diagnosed in 2010. Patient was initially treated with the tandem transplants and maintenance therapy until 2009 for the myeloma. All treatments discontinued at that time because of severe cytopenias and subarachnoid bleeding. She is on adjuvant hormonal treatment for the breast cancer with letrozole 2.5 mg daily. Patient admitted with increasing weakness, fever, diarrhea and vomiting. Initial evaluation showed she was positive for influenza A. Chest x-ray showed infiltrates consistent with pneumonia and sputum studies showing Haemophilus influenza. UA showing more than 100,000 colonies of Escherichia coli. Patient is on ceftriaxone. Had evidence of acute on chronic renal failure due to dehydration at the time of admission. This has improved significantly with hydration. Lab work reviewed and total white count has dropped to 0.7. Because of bacterial pneumonia and urinary tract infection, Dr Vail started her on G-CSF 480 g subcutaneous daily yesterday until ANC more than 10,000. Her respiratory status is worsening today and she is on Bi-Pap Fi O2 35% . She is labor in breathing and respiratory rate 35/min. Dr Cordero decided to transfer her to ICU now. Her WBC is better today 2.2 and ANC 1.3. Hb 9.9, Plt 146k. CXR 09/12/17 showed minimal changes compared to 09/11/17. Assessment/Plan IMPRESSION: 1. A 72-year-old female admitted with fever, diarrhea and increasing weakness. 2. Influenza A positive. 3. Acute on chronic renal failure due to dehydration, resolved. 4. 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 On surveillance since then without active treatment. 5. Stage I breast cancer, status post lumpectomy and sentinel lymph node biopsy followed by radiation therapy. Currently, on adjuvant hormonal therapy with letrozole 2.5 mg daily. 6. Respiratory insufficiency/distress on Bi-PAP. Required transferring to ICU. Hemophilia influenza and influenza A. RECOMMENDATIONS: 1. Agree close ICU monitory and support and symptomatic care for influenza A. I think her ANC recovering triggered inflammatory reactions, possible overwhelming reactive to the infection which made the respiratory symptoms worse at this moment. I also anticipate her CXR will be worse in the next day or 2 due to the leukocytes recovery and infiltrating to her lung to fight the infection. She is on Rocephin for bacterial coverage. 2. I would hold off the Granix for today. Monitor her CBC and CMP serially. Maybe another dose tomorrow. We are walking on the very narrow balance line between infection and overwhelming inflammatory reaction of the leukocytes to the infection. If her ANC is drop tomorrow and lower <0.5, then I would give another dose of Granix at 480mcg tomorrow. 3. With regards to multiple myeloma and breast cancer, the patient has been stable clinically and she does not need any treatment or investigation at this point. Once she is taking her oral medications, I will restart the letrozole 2.5 mg daily. 4. Will f/u with you. Vitals Last set of Vitals Signs Vital Signs Date Time Temp Pulse Resp B/P (MAP) Pulse Ox O2 Delivery O2 Flow Rate FiO2 09/13/17 10:31 98 21 96 35.00 09/13/17 08:00 Vapotherm 35 09/13/17 08:00 97.7 140/63 (88) I&O I&O Intake and Output 09/13/17 00:00 Intake Total 4100 ml Output Total 900 ml Balance 3200 ml Intake Oral 1100 ml IV Total 3000 ml Output Urine Total 900 ml # Voids 3 # Bowel Movements 4 Labs Laboratory Tests 09/13/17 05:55: White Blood Count 2.2L, Red Blood Count 2.96L, Hemoglobin 9.9L, Hematocrit 29L, Mean Corpuscular Volume 99, Mean Corpuscular Hemoglobin 33, Mean Corpuscular Hemoglobin Concent 34, Red Cell Distribution Width 14.6H, Platelet Count 164, Mean Platelet Volume 9.6, Neutrophils (%) (Auto) 59, Lymphocytes (%) (Auto) 16, Monocytes (%) (Auto) 23H, Eosinophils (%) (Auto) 1, Basophils (%) (Auto) 1, Neutrophils # (Auto) 1.3L, Lymphocytes # (Auto) 0.3L, Monocytes # (Auto) 0.5, Eosinophils # (Auto) 0.0, Basophils # (Auto) 0.0, Sodium Level 139, Potassium Level 4.4, Chloride Level 118H, Carbon Dioxide Level 11L, Anion Gap 10, Blood Urea Nitrogen 28H, Creatinine 0.94, Estimat Glomerular Filtration Rate 59, BUN/ Creatinine Ratio 30, Glucose Level 90, Calcium Level 8.1L Microbiology 09/11/17 Blood Culture - Preliminary, Resulted No growth 09/11/17 Influenza Types A,B Antigen (ARMANDO) - Final, Complete 09/11/17 Urine Culture - Final, Complete Escherichia coli Clinical Quality Measures DVT/VTE Risk/Contraindication: Risk Factor Score Per Nursin RFS Level Per Nursing on Admit: 4+=Very High BENNY DOHERTY MD Sep 13, 2017 12:49
[2017-09-13 13:07] LABS: ABG BASE EXCESS -11.8 MMOL/L (-2.5-2.5); ABG OXYGEN SATURATION 98 % (94-100); ABG PCO2 34 MMHG (35-45); ABG PO2 93 MMHG (79-93); ABG TCO2 15.4 MMOL/L (21.0-31.0)
[2017-09-13 13:20] LABS: ABG PH 7.24 (7.37-7.43); ALLENS TEST YES-POS; INSPIRED O2 35%; PATIENT TEMP 97.7; VENTILATOR NO
--- NOTE | 2017-09-13 13:20 | Progress Note-Hospitalist ---
Progress Note Progress Notes/Assess & Plan Date Seen 09/13/17 Time Seen by Provider: 12:15 Diagonsis/Assessment & Plan Patient requiring BiPAP now after nasal cannula was no longer enough to support her oxygen demands Patient appears to be declining slowly so will transfer up to the ICU Very complicated case and becoming more more complicated Conferred with Dr. Mace who will be consulted for respiratory failure We'll check ABG and chest x-ray Putting transfer orders Patient on BiPAP and appears to be mildly frightened and chronically ill, at bedside Regular rate and rhythm, clear to auscultation bilaterally but diminished in all young and subtle wheeze at end expiratory phase No edema Laboratory Tests 09/13/17 05:55 Acute respiratory failure requiring BiPAP placement pulmonology consultation and ICU transfer Assessment per primary care provider Dr. Robbins: INFLUENZA Tamiflu PNEUMONIA on Rocephin for Haemophilus influenza DEHYDRATION on IV fluids ACUTE RENAL INSUFFICIENCY much improved URINARY TRACT INFECTION ESCHERICHIA coli on Rocephin CHRONIC DEPRESSION CHRONIC NEUTROPENIA WITH WHITE COUNT NORMAL, BUT ELEVATED FOR THIS PATIENT. Plan: Check ABG Check chest x-ray Check morning repeat labs Consult pulmonology Transfer to ICU Guarded prognosis appears to be very chronically ill and debilitated and becoming more complex of the hours past CECY ALBARRAN DO Sep 13, 2017 13:20
[2017-09-13 13:30] LABS: BASOPHILS % (AUTO) 0 % (0-10); EOSINOPHILS % (AUTO) 1 % (0-10); HEMATOCRIT 30 % (35-52); HEMOGLOBIN 10.2 G/DL (11.5-16.0); LYMPHOCYTES # (AUTO) 0.4 X 10^3 (1.0-4.0); LYMPHOCYTES % (AUTO) 15 % (12-44); MEAN CORPUSCULAR HEMOGLOBIN 34 PG (25-34); MEAN CORPUSCULAR HGB CONC 34 G/DL (32-36); MEAN CORPUSCULAR VOLUME 100 FL (80-99); MEAN PLATELET VOLUME 9.5 FL (7.4-10.4); MONOCYTES # (AUTO) 0.6 X 10^3 (0.0-1.0); MONOCYTES % (AUTO) 20 % (0-12); NEUTROPHILS # (AUTO) 1.8 X 10^3 (1.8-7.8); NEUTROPHILS % (AUTO) 63 % (42-75); PLATELET COUNT 163 10^3/uL (130-400); RED CELL DISTRIBUTION WIDTH 14.7 % (10.0-14.5); WHITE BLOOD COUNT 2.9 10^3/uL (4.3-11.0)
[2017-09-13] MEDS ORDERED: TROUGH ORDER-PHARMACY XX NR (13:30)
[2017-09-13 13:44] LABS: ALANINE AMINOTRANSFERASE 25 U/L (0-55); ALBUMIN 2.5 GM/DL (3.2-4.5); ALKALINE PHOSPHATASE 77 U/L (40-136); BILIRUBIN,TOTAL 0.6 MG/DL (0.1-1.0); BUN/CREATININE RATIO 27; CALCIUM 8.4 MG/DL (8.5-10.1); CARBON DIOXIDE 11 MMOL/L (21-32); CHLORIDE 119 MMOL/L (98-107); CREATININE SERUM 0.89 MG/DL (0.60-1.30); GFR ESTIMATED > 60; GLUCOSE 81 MG/DL (70-105); POTASSIUM 4.5 MMOL/L (3.6-5.0); SODIUM 141 MMOL/L (135-145); TOTAL PROTEIN 5.8 GM/DL (6.4-8.2)
[2017-09-13] MEDS ORDERED: morphine INJ 4 MG/ML 1 ML (VIAL/SYRINGE) ONE (13:52)
[2017-09-13] MEDS: morphine INJ 4 MG/ML 1 ML (VIAL/SYRINGE) IVP PRN ×2 (13:57→20:17)
[2017-09-13 14:13] LABS: BAND NEUTROPHILS 30 %; EOSINOPHILS % (MANUAL) 1 %; LYMPHOCYTES % (MANUAL) 23 %; METAMYELOCYTES % 4 %; MONOCYTES % (MANUAL) 14 %; NEUTROPHILS % (MANUAL) 28 %
[2017-09-13 14:14] LABS: RBC MORPH NORMAL
[2017-09-13] MEDS ORDERED: SODIUM BICARB 8.4% 50 MEQ/50 ML (ABBOTT) SYR IV NR (14:51)
[2017-09-13] MEDS: methylPREDNISolone 40 MG/ML (Solu-MEDROL) VIAL IV SCH ×2 (14:57→18:21)
[2017-09-13] MEDS: LACTATED RINGERS 1,000 ML IV SCH ×2 (14:58→21:28)
--- NOTE | 2017-09-13 15:06 | Diagnostic Imaging Report ---
Portable erect AP chest at 134 hours. INDICATION: Febrile, neutropenia. FINDINGS: The heart size is stable when compared to the prior exam of 09/12/2017. In the interval since the prior study, however the alveolar/interstitial pulmonary infiltrates involving the upper lobes have increased somewhat. The abnormal parenchymal densities in the lung bases are essentially no different. The mediastinum is not widened. The osseous structures are intact. The left-sided Port-A-Cath remains stable in position. IMPRESSION: The appearance of the chest has worsened somewhat since the prior study as there has been increase the amount of pneumonia/atelectasis involving both upper lobes. A followup exam would be recommended for continued evaluation. Dictated by: Dictated on workstation # [id number]
[2017-09-13] MEDS: LORazepam INJ 2 MG/ML (ATIVAN) VIAL IVP PRN ×2 (15:21→20:19)
[2017-09-13 16:03] LABS: BILIRUBIN,URINE NEGATIVE (NEGATIVE); CLARITY,URINE SLIGHTLY CLOUDY; COLOR,URINE YELLOW; GLUCOSE, URINE (UA) NEGATIVE (NEGATIVE); KETONES,URINE NEGATIVE (NEGATIVE); LEUKOCYTE ESTERASE ,URINE NEGATIVE (NEGATIVE); NITRITE,URINE NEGATIVE (NEGATIVE); PH,URINE 5 (5-9); PROTEIN,URINE 2+ (NEGATIVE); UROBILINOGEN,URINE NORMAL (NORMAL)
[2017-09-13 16:25] LABS: RBC,URINE 0-2 /HPF; WBC,URINE 0-2 /HPF
[2017-09-13 16:26] LABS: AMORPHOUS SEDIMENT,UR FEW AMOR URATES /LPF; BACTERIA,URINE NEGATIVE /HPF; SQUAMOUS EPITHELIAL CELL,UR 0-2 /HPF
[2017-09-13 16:28] LABS: ABG BASE EXCESS -8.2 MMOL/L (-2.5-2.5); ABG OXYGEN SATURATION 97 % (94-100); ABG PCO2 33 MMHG (35-45); ABG PO2 73 MMHG (79-93); ABG TCO2 17.8 MMOL/L (21.0-31.0)
[2017-09-13 16:29] LABS: ABG PH 7.32 (7.37-7.43)
[2017-09-13 16:30] LABS: ALLENS TEST YES-POS
[2017-09-13 16:31] LABS: INSPIRED O2 35%; PATIENT TEMP 97.5; VENTILATOR NO
[2017-09-13] MEDS ORDERED: SODIUM BICARBONATE 8.4% VIAL 150 MEQ in D5W 1000 ML IV SOLUTION 1,000 ML IV SCH (17:15)
[2017-09-13] MEDS: inSUlin (REGULAR) HUMAN 1 UNIT/0.01 ML (CHARGE PER UNIT) SC SCH (18:21)
[2017-09-13 20:17] LABS: ABG BASE EXCESS -6.3 MMOL/L (-2.5-2.5); ABG OXYGEN SATURATION 100 % (94-100); ABG PCO2 33 MMHG (35-45); ABG PH 7.36 (7.37-7.43); ABG PO2 115 MMHG (79-93); ABG TCO2 19.3 MMOL/L (21.0-31.0)
[2017-09-13 20:18] LABS: INSPIRED O2 35%; PATIENT TEMP 97.6; VENTILATOR NO
[2017-09-14] VITALS (26 sets, daily range): BP systolic 99–153; BP diastolic 46–83
[2017-09-14] MEDS: LACTATED RINGERS 1,000 ML IV SCH (00:30)
[2017-09-14] MEDS: inSUlin (REGULAR) HUMAN 1 UNIT/0.01 ML (CHARGE PER UNIT) SC SCH ×3 (00:30→11:43)
[2017-09-14] MEDS: methylPREDNISolone 40 MG/ML (Solu-MEDROL) VIAL IV SCH ×4 (00:31→16:56)
[2017-09-14] MEDS: morphine INJ 4 MG/ML 1 ML (VIAL/SYRINGE) IVP PRN ×6 (00:31→21:41)
[2017-09-14] MEDS: RT-ALBUTEROL/IPRATROPIUM 3 ML (DUONEB) VIAL INH SCH ×8 (02:18→23:35)
[2017-09-14 03:16] LABS: BASOPHILS % (AUTO) 0 % (0-10); EOSINOPHILS % (AUTO) 1 % (0-10); HEMATOCRIT 26 % (35-52); LYMPHOCYTES # (AUTO) 0.3 X 10^3 (1.0-4.0); LYMPHOCYTES % (AUTO) 5 % (12-44); MEAN CORPUSCULAR HEMOGLOBIN 34 PG (25-34); MEAN CORPUSCULAR HGB CONC 34 G/DL (32-36); MEAN CORPUSCULAR VOLUME 99 FL (80-99); MEAN PLATELET VOLUME 9.6 FL (7.4-10.4); MONOCYTES # (AUTO) 0.8 X 10^3 (0.0-1.0); MONOCYTES % (AUTO) 13 % (0-12); NEUTROPHILS # (AUTO) 5.1 X 10^3 (1.8-7.8); NEUTROPHILS % (AUTO) 82 % (42-75); PLATELET COUNT 175 10^3/uL (130-400); RED BLOOD COUNT 2.67 10^6/uL (4.35-5.85); RED CELL DISTRIBUTION WIDTH 14.3 % (10.0-14.5); WHITE BLOOD COUNT 6.2 10^3/uL (4.3-11.0)
[2017-09-14 03:26] LABS: BUN/CREATININE RATIO 24; CALCIUM 8.4 MG/DL (8.5-10.1); CARBON DIOXIDE 20 MMOL/L (21-32); CHLORIDE 113 MMOL/L (98-107); CREATININE SERUM 0.85 MG/DL (0.60-1.30); GFR ESTIMATED > 60; GLUCOSE 199 MG/DL (70-105); MAGNESIUM 1.4 MG/DL (1.8-2.4); PHOSPHORUS 2.6 MG/DL (2.3-4.7); POTASSIUM 3.7 MMOL/L (3.6-5.0); SODIUM 147 MMOL/L (135-145)
[2017-09-14] MEDS: LORazepam INJ 2 MG/ML (ATIVAN) VIAL IVP PRN (03:28)
[2017-09-14] MEDS: POTASSIUM CL 10MEQ/50ML IVPB 50 ML IV SCH ×6 (03:32→23:52)
[2017-09-14] MEDS: KCL 20 MEQ TAB (K-DUR) PO SCH (03:33)
[2017-09-14 03:40] LABS: ABG BASE EXCESS -0.7 MMOL/L (-2.5-2.5); ABG OXYGEN SATURATION 97 % (94-100); ABG PCO2 40 MMHG (35-45); ABG PH 7.39 (7.37-7.43); ABG PO2 74 MMHG (79-93); ABG TCO2 24.9 MMOL/L (21.0-31.0); ALLENS TEST YES-POS; INSPIRED O2 35%; PATIENT TEMP 98.2; VENTILATOR NO
[2017-09-14] MEDS: MAGNESIUM 1 GM/100 ML IVPB 100 ML IV SCH ×5 (05:47→23:43)
--- NOTE | 2017-09-14 07:44 | Pulmonary Consultation ---
History of Present Illness History of Present Illness Date of Consultation 09/14/17 07:36 Time Seen by Provider: 06:26 Date of Admission History of Present Illness 72yo presented to ED secondary to worsening SOB, cough, chest congestion. Onset has been over the last week. She was dx in the ED with pneumonia, influ A and acute UTI. no previous episodes like this. No sick contacts. I am consulted for pulmonary management. Allergies and Home Medications Allergies Coded Allergies: No Known Drug Allergies (Verified , 09/11/17) Home Medications Acyclovir 400 Mg Tablet, 400 MG PO DAILY, (Reported) Aspirin 81 Mg Tablet.dr, 81 MG PO DAILY, (Reported) Calcium Carbonate/Vitamin D3 1 Each Tablet, 1 TAB PO DAILY, (Reported) Cyanocobalamin (Vitamin B-12) 1,000 Mcg Tablet, 1,000 MCG PO DAILY, (Reported) Ferrous Sulfate 325 Mg Tablet, 325 MG PO 1700, (Reported) Fluoxetine HCl 20 Mg Capsule, 20 MG PO DAILY, (Reported) Letrozole 2.5 Mg Tablet, 2.5 MG PO DAILY, (Reported) Levothyroxine Sodium 75 Mcg Tablet, 75 MCG PO DAILY, (Reported) Losartan Potassium 50 Mg Tablet, 50 MG PO DAILY, (Reported) Lovastatin 20 Mg Tablet, 20 MG PO HS, (Reported) Multivitamin 1 Each Tablet, 1 TAB PO DAILY, (Reported) Niacinamide 500 Mg Tablet, 500 MG PO HS, (Reported) Olanzapine 2.5 Mg Tablet, 2.5 MG PO DAILY, (Reported) Omeprazole 20 Mg Capsule.dr, 20 MG PO 1200,1700, (Reported) Oxycodone HCl/Acetaminophen 1 Each Tablet, 1 TAB PO Q4H PRN for PAIN-MODERATE, ( Reported) Potassium Chloride 20 Meq Tab.er.prt, 20 MEQ PO BID, (Reported) Past [id number] Hx Patient Social History Alcohol Use: Denies Use Recreational Drug Use: No Smoking Status: Former Smoker Former Smoker, Quit: Apr 30, 1987 2nd Hand Smoke Exposure: No Recent Foreign Travel: No Contact w/Someone Who Travel: No Recent Infectious Disease Expo: No Recent Hopitalizations: Yes Immunizations Up To Date Date of Influenza Vaccine: Apr 20, 2017 Seasonal Allergies Seasonal Allergies: Yes Surgeries History of Surgeries: Yes Surgeries: Hysterectomy, Lumpectomy, Orthopedic Respiratory History of Respiratory Disorde: No Cardiovascular History of Cardiac Disorders: Yes Cardiac Disorders: High Cholesterol Neurological History of Neurological Disord: No Reproductive System : No Hx Reproductive Disorders: No Sexually Transmitted Disease: No Genitourinary History of Genitourinary Disor: No Gastrointestinal History of Gastrointestinal Di: No Musculoskeletal History of Musculoskeletal Dis: Yes Endocrine History of Endocrine Disorders: No HEENT History of HEENT Disorders: No Loss of Vision: Denies Cancer History of Cancer: Yes (MULTIPLE MYELOMA) Cancer: Breast Did You Recieve Any Treatments: Yes Type of Tx Receive: Chemotherapy, Other (BONE MARROW TRANSPLANT) Psychosocial History of Psychiatric Problem: Yes Behavioral Health Disorders: Anxiety, Depression Integumentary History of Skin or Integumenta: No Blood Transfusions History of Blood Disorders: Yes (MULT.MYELOMA) Adverse Reaction to a Blood Tr: No Reviewed Nursing Assessment Reviewed/Agree w Nursing PMH: Yes Family Medical History Significant Family History: Heart Disease, Hypertension Family Medial History: Review of Systems Time Seen by Provider: 06:29 Constitutional: Fever, Chills, Sweats, Weakness, Malaise Eyes: No: Pain, Vision change, Conjunctivae inflammation, Eyelid inflammation, Other, Redness ENT: No: Ear pain, Ear discharge, Nose pain, Nose discharge, Nose congestion, Mouth pain, Mouth swelling, Throat pain, Throat swelling, Other Respiratory: Cough, Dry, Shortness of breath, SOB with excertion, No: Wheezing Cardiovascular: Paroxysmal Noc. Dyspnea, Lt Headedness, No: Chest Pain, Palpitations, Orthopnea, Edema, Other Gastrointestinal: No: Nausea, Vomiting, Abdominal Pain, Diarrhea, Constipation , Melena, Hematochezia, Other Genitourinary: No Dysuria, No Frequency, No Incontinence, No Hematuria, No Retention, No Other Musculoskeletal: No: other, neck pain, shoulder pain, arm pain, back pain, hand pain, leg pain, foot pain Neurological: Weakness, Confusion Exam Exam Vital Signs Date Time Temp Pulse Resp B/P (MAP) Pulse Ox O2 Delivery O2 Flow Rate FiO2 09/14/17 07:00 86 27 142/70 (94) 92 NIV Bilevel 35.00 09/14/17 07:00 86 09/14/17 06:47 87 24 35.00 09/14/17 06:00 75 21 148/70 (96) 93 NIV Bilevel 35.00 09/14/17 05:00 72 24 144/69 (94) 95 NIV Bilevel 35.00 09/14/17 04:35 84 24 35.00 09/14/17 04:00 85 24 141/70 (93) 93 NIV Bilevel 35.00 09/14/17 04:00 97.3 09/14/17 04:00 95 NIV Bilevel 35 09/14/17 03:00 99 25 148/73 (98) 93 NIV Bilevel 35.00 09/14/17 02:18 94 26 35.00 09/14/17 02:00 68 26 147/70 (95) 94 NIV Bilevel 35.00 09/14/17 01:00 67 09/14/17 01:00 71 22 139/73 (95) 95 NIV Bilevel 35.00 09/14/17 00:00 76 21 137/74 (95) 96 NIV Bilevel 35.00 09/14/17 00:00 97.2 09/14/17 00:00 95 NIV Bilevel 35 09/13/17 23:49 96 14 35.00 09/13/17 23:00 77 22 137/69 (91) 96 NIV Bilevel 35.00 09/13/17 22:00 87 26 130/68 (88) 96 NIV Bilevel 35.00 09/13/17 21:06 87 22 35.00 09/13/17 21:00 84 23 118/62 (80) 97 NIV Bilevel 35.00 09/13/17 20:19 96 32 35.00 09/13/17 20:00 103 32 145/79 (101) 99 NIV Bilevel 35.00 09/13/17 20:00 96 NIV Bilevel 35 09/13/17 19:32 97.9 NIV Bilevel 35.00 09/13/17 19:00 95 09/13/17 19:00 109 26 124/63 (83) 99 NIV Bilevel 35.00 09/13/17 18:29 97 24 35.00 09/13/17 18:00 90 24 133/67 (89) 97 NIV Bilevel 35.00 09/13/17 17:00 94 26 127/70 (89) 97 NIV Bilevel 35.00 09/13/17 16:51 97 28 35.00 09/13/17 16:50 NIV Bilevel 35 09/13/17 16:00 108 31 137/57 (83) 96 NIV Bilevel 35.00 09/13/17 15:45 114 29 150/84 (106) 96 NIV Bilevel 35.00 09/13/17 15:30 116 34 156/86 (109) 96 NIV Bilevel 35.00 09/13/17 15:15 112 36 97 NIV Bilevel 35.00 09/13/17 15:00 110 35 136/78 (97) 98 NIV Bilevel 35.00 09/13/17 14:45 102 24 140/77 (98) 98 NIV Bilevel 35.00 09/13/17 14:30 104 28 136/75 (95) 99 NIV Bilevel 35.00 09/13/17 14:24 100 23 35.00 09/13/17 14:15 98 26 98 NIV Bilevel 35.00 09/13/17 14:00 101 31 98 NIV Bilevel 35.00 09/13/17 13:45 101 32 145/80 (101) NIV Bilevel 35.00 09/13/17 13:30 NIV Bilevel 35 09/13/17 13:30 104 20 141/64 (89) 92 NIV Bilevel 35.00 09/13/17 13:15 99 20 137/83 (101) 93 NIV Bilevel 35.00 09/13/17 13:15 30 35.00 09/13/17 12:00 97.7 94 22 119/59 (79) 97 Nasal Cannula 2.50 09/13/17 10:31 98 21 96 35.00 09/13/17 08:43 95 32 96 35.00 09/13/17 08:00 96 Vapotherm 25.00 35 09/13/17 08:00 97.7 101 24 140/63 (88) 99 Nasal Cannula 2.50 I & O 09/14/17 07:00 Intake Total 900 ml Output Total 2025 ml Balance -1125 ml General Appearance: WD/WN, Anxious, Mild Distress, Moderate Distress HEENT: PERRL/EOMI, Pharynx Normal Neck: Full Range of Motion, Supple Respiratory: Chest Non Tender, Decreased Breath Sounds Cardiovascular: Regular Rate, Rhythm Capillary Refill: Less Than 3 Seconds Gastrointestinal: normal bowel sounds, non tender, soft, no organomegaly, no pulsatile mass Extremity: Non Tender, No Calf Tenderness, No Pedal Edema Neurologic/Psychiatric: Alert Skin: Ecchymosis (OF BUTTOCK/VAGINAL REGION) Lymphatic: No Adenopathy Results Lab Laboratory Tests 09/13/17 05:55 09/13/17 13:13 09/14/17 02:55 Assessment/Plan Assessment/Plan Admission Dx Acute respiratory failure -requiring BiPAP -Check BNP-- pt may need lasix Metabolic acidosis -D/C bicarb gtt Hypernatremia, Hyperchloremia -CHange IVF to D5W -Monitor Influenza A -Tamiflu Pneumonia -Rocephin UTI with Ecoli Acute Renal Failure Chronic Neutropenia 255 a Clinical Quality Measures DVT/VTE Risk/Contraindication: Risk Factor Score Per Nursin RFS Level Per Nursing on Admit: 4+=Very High FORTUNATO BARR DO Sep 14, 2017 07:44
[2017-09-14] MEDS: OSELTAMIVIR 30 MG (TAMIFLU) BOX OF 10 PO SCH ×2 (08:00→20:00)
[2017-09-14] MEDS ORDERED: TBO-FILGRASTIM 300 MCG/0.5 ML (GRANIX) SQ SCH (09:00)
[2017-09-14] MEDS: LEVOTHYROXINE 75 MCG (LEVOTHROID) TABLET PO SCH ×2 (09:00→09:03)
[2017-09-14] MEDS: ACYCLOVIR 400 MG TABLET (ZOVIRAX) PO SCH ×2 (09:00→09:04)
[2017-09-14] MEDS: OLANZapine 2.5 MG (ZyPREXA) TAB PO SCH ×2 (09:00→09:43)
[2017-09-14] MEDS: FLUoxetine HCL 20 MG (PROzac) CAP PO SCH ×2 (09:00→09:03)
[2017-09-14] MEDS: LETROZOLE 2.5 MG (FEMARA) TAB PO SCH ×2 (09:00→09:43)
[2017-09-14] MEDS: D5W 1000 ML IV SOLUTION 1,000 ML IV SCH (09:03)
[2017-09-14] MEDS: cefTRIAXone INJECTION 1,000 MG in NS (IVPB) 50 ML IV SCH (09:04)
[2017-09-14] MEDS: PANTOPRAZOLE 40 MG/10 ML (PROTONIX) VIAL IV SCH (09:04)
[2017-09-14] MEDS: MENTHOL/ZINC OXIDE (CALMOSEPTINE) 113 GM TUBE TOP SCH ×2 (09:04→21:37)
--- NOTE | 2017-09-14 09:39 | Diagnostic Imaging Report ---
INDICATION: Dyspnea. COMPARISON: 09/13/2017. FINDINGS: The heart size is normal. There is bilateral airspace disease. Underlying central pulmonary venous congestion cannot be excluded. There is no pleural effusion or pneumothorax. Infusaport catheter overlies the left hemithorax. IMPRESSION: Persistent bilateral airspace disease with likely underlying central pulmonary venous congestion. Dictated by: Dictated on workstation # [id number]
[2017-09-14] MEDS ORDERED: FUROSEMIDE 40 MG/4 ML INJ (LASIX) IVP NR (11:03)
--- NOTE | 2017-09-14 11:35 | Progress Note-Hospitalist ---
Progress Note Progress Notes/Assess & Plan Date Seen 09/14/17 Time Seen by Provider: 11:45 Diagonsis/Assessment & Plan Patient is confused and not oriented to day Requiring Vapotherm alternating with BiPAP Lasix 40 MG IV [address] Mace due to elevated BNP considering chest x-ray shows pulmonary congestion and she does have crackles on exam today Bicarbonate drip was discontinued with good resolution of acidosis Patient becoming more more complex each and every day Patient on BiPAP alternating with Vapotherm and is slightly confused today, chronically ill, at bedside along with daughter Regular rate and rhythm, clear to auscultation bilaterally but diminished in all young and subtle wheeze at end expiratory phase No edema Laboratory Tests 09/13/17 13:13 09/14/17 02:55 Assessment: Acute respiratory failure requiring BiPAP placement pulmonology consultation and ICU transfer now on Vapotherm with volume overload noted on chest x-ray and elevated BNP with crackles on exam Assessment per primary care provider Dr. Robbins: INFLUENZA Tamiflu PNEUMONIA on Rocephin for Haemophilus influenza DEHYDRATION on IV fluids ACUTE RENAL INSUFFICIENCY much improved URINARY TRACT INFECTION ESCHERICHIA coli on Rocephin CHRONIC DEPRESSION CHRONIC NEUTROPENIA WITH WHITE COUNT NORMAL, BUT ELEVATED FOR THIS PATIENT. Encephalopathy with confusion Plan: Monitor chest x-ray Check morning repeat labs Consult pulmonology is appreciated Maintain in ICU Guarded prognosis appears to be very chronically ill and debilitated and becoming more complex of the hours past CECY ALBARRAN DO Sep 14, 2017 11:35
--- NOTE | 2017-09-14 12:38 | Physician Progress Note ---
Progress Note Assessment/Plan Time Seen by Provider: 12:00 Events since last exam She is more confused today. She is off Bi-PAP since 8am this morning, back on nasal canula high flow O2. Tolerated well so far O2 sat 90-91%. WBC and ANC much better at 6.7 and 5.3 respectively. Assessment/Plan IMPRESSION: 1. A 72-year-old female admitted with fever, diarrhea and increasing weakness. 2. Influenza A positive. 3. Acute on chronic renal failure due to dehydration, resolved. 4. 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 On surveillance since then without active treatment. 5. Stage I breast cancer, status post lumpectomy and sentinel lymph node biopsy followed by radiation therapy. Currently, on adjuvant hormonal therapy with letrozole 2.5 mg daily. 6. Respiratory insufficiency/distress on Bi-PAP. Required transferring to ICU yesterday. Hemophilia influenza and influenza A. She is slightly better today and back on nasal canula O2 high flow. 7. Leukopenia. RECOMMENDATIONS: 1. Continue ICU monitory and support and symptomatic care for influenza A. I think her ANC recovering triggered inflammatory reactions, possible overwhelming reactive to the infection which made the respiratory symptoms worse at this moment. Her CXR was worse as I anticipated due to the leukocytes recovery and infiltrating to her lung to fight the infection. She is on Rocephin for bacterial coverage. 2. Since he WBC 6.7 and absolute neutrophil # 5.1 today. I would stop the Granix. 3. With regards to multiple myeloma and breast cancer, the patient has been stable clinically and she does not need any treatment or investigation at this point. 4. Anticipate a slow recovery due to her multiple co-morbidities. 5. Dr. Vail will be back tomorrow. Vitals Last set of Vitals Signs Vital Signs Date Time Temp Pulse Resp B/P (MAP) Pulse Ox O2 Delivery O2 Flow Rate FiO2 09/14/17 12:27 NIV Bilevel 35.00 09/14/17 12:00 92 32 152/76 (101) 91 09/14/17 11:55 97.7 09/14/17 10:31 50 I&O I&O Intake and Output 09/14/17 00:00 Intake Total 2500 ml Output Total 1352 ml Balance 1148 ml Intake Oral 600 ml IV Total 1900 ml Output Urine Total 1350 ml Urine/Stool Mix 2 ml # Voids 1 Labs Laboratory Tests 09/13/17 13:00: Blood Gas Puncture Site RT RAD, Blood Gas Patient Temperature 97.7, Arterial Blood pH 7.24*L, Arterial Blood Partial Pressure CO2 34L, Arterial Blood Partial Pressure O2 93, Arterial Blood HCO3 14*L, Arterial Blood Total CO2 15.4L , Arterial Blood Oxygen Saturation 98, Arterial Blood Base Excess -11.8L, Jesse Test YES-POS, Blood Gas Ventilator Setting NO, Blood Gas Inspired Oxygen 35% 09/13/17 13:13: White Blood Count 2.9L, Red Blood Count 3.00L, Hemoglobin 10.2L, Hematocrit 30L , Mean Corpuscular Volume 100H, Mean Corpuscular Hemoglobin 34, Mean Corpuscular Hemoglobin Concent 34, Red Cell Distribution Width 14.7H, Platelet Count 163, Mean Platelet Volume 9.5, Neutrophils (%) (Auto) 63, Lymphocytes (%) (Auto) 15, Monocytes (%) (Auto) 20H, Eosinophils (%) (Auto) 1, Basophils (%) ( Auto) 0, Neutrophils # (Auto) 1.8, Lymphocytes # (Auto) 0.4L, Monocytes # (Auto ) 0.6, Eosinophils # (Auto) 0.0, Basophils # (Auto) 0.0, Neutrophils % (Manual) 28, Lymphocytes % (Manual) 23, Monocytes % (Manual) 14, Eosinophils % (Manual) 1 , Metamyelocytes % 4, Band Neutrophils 30, Blood Morphology Comment NORMAL, Sodium Level 141, Potassium Level 4.5, Chloride Level 119H, Carbon Dioxide Level 11L, Anion Gap 11, Blood Urea Nitrogen 24H, Creatinine 0.89, Estimat Glomerular Filtration Rate > 60, BUN/Creatinine Ratio 27, Glucose Level 81, Calcium Level 8.4L, Total Bilirubin 0.6, Aspartate Amino Transf (AST/SGOT) 18, Alanine Aminotransferase (ALT/SGPT) 25, Alkaline Phosphatase 77, B-Type Natriuretic Peptide 471.2H, Total Protein 5.8L, Albumin 2.5L 09/13/17 13:40: Lactic Acid Level 0.93 09/13/17 15:00: Lactic Acid Level 0.84, Urine Color YELLOW, Urine Clarity SLIGHTLY CLOUDY, Urine pH 5, Urine Specific [place] 1.015L, Urine Protein 2+H, Urine Glucose (UA ) NEGATIVE, Urine Ketones NEGATIVE, Urine Nitrite NEGATIVE, Urine Bilirubin NEGATIVE, Urine Urobilinogen NORMAL, Urine Leukocyte Esterase NEGATIVE, Urine RBC (Auto) 2+H, Urine RBC 0-2, Urine WBC 0-2, Urine Squamous Epithelial Cells 0- 2, Urine Crystals PRESENTH, Urine Amorphous Sediment FEW SHERRY URATESH, Urine Bacteria NEGATIVE, Urine Casts NONE, Urine Mucus NEGATIVE, Urine Culture Indicated NO 09/13/17 16:15: Blood Gas Puncture Site L RAD, Blood Gas Patient Temperature 97.5, Arterial Blood pH 7.32*L, Arterial Blood Partial Pressure CO2 33L, Arterial Blood Partial Pressure O2 73L, Arterial Blood HCO3 17*L, Arterial Blood Total CO2 17.8L, Arterial Blood Oxygen Saturation 97, Arterial Blood Base Excess -8.2L, Jesse Test YES-POS, Blood Gas Ventilator Setting NO, Blood Gas Inspired Oxygen 35% 09/13/17 18:13: Glucometer 118H 09/13/17 20:10: Blood Gas Puncture Site R RAD, Blood Gas Patient Temperature 97.6, Arterial Blood pH 7.36L, Arterial Blood Partial Pressure CO2 33L, Arterial Blood Partial Pressure O2 115H, Arterial Blood HCO3 18L, Arterial Blood Total CO2 19.3L, Arterial Blood Oxygen Saturation 100, Arterial Blood Base Excess -6.3L, Jesse Test NA, Blood Gas Ventilator Setting NO, Blood Gas Inspired Oxygen 35% 09/14/17 00:26: Glucometer 171H 09/14/17 02:55: White Blood Count 6.2, Red Blood Count 2.67L, Hemoglobin 9.0L, Hematocrit 26L, Mean Corpuscular Volume 99, Mean Corpuscular Hemoglobin 34, Mean Corpuscular Hemoglobin Concent 34, Red Cell Distribution Width 14.3, Platelet Count 175, Mean Platelet Volume 9.6, Neutrophils (%) (Auto) 82H, Lymphocytes (%) (Auto) 5L , Monocytes (%) (Auto) 13H, Eosinophils (%) (Auto) 1, Basophils (%) (Auto) 0, Neutrophils # (Auto) 5.1, Lymphocytes # (Auto) 0.3L, Monocytes # (Auto) 0.8, Eosinophils # (Auto) 0.0, Basophils # (Auto) 0.0, Sodium Level 147H, Potassium Level 3.7, Chloride Level 113H, Carbon Dioxide Level 20L, Anion Gap 14, Blood Urea Nitrogen 20H, Creatinine 0.85, Estimat Glomerular Filtration Rate > 60, BUN /Creatinine Ratio 24, Glucose Level 199H, Calcium Level 8.4L, Phosphorus Level 2.6, Magnesium Level 1.4L 09/14/17 03:25: Blood Gas Puncture Site RIGHT RADIAL, Blood Gas Patient Temperature 98.2, Arterial Blood pH 7.39, Arterial Blood Partial Pressure CO2 40, Arterial Blood Partial Pressure O2 74L, Arterial Blood HCO3 24, Arterial Blood Total CO2 24.9, Arterial Blood Oxygen Saturation 97, Arterial Blood Base Excess -0.7, Jesse Test YES-POS, Blood Gas Ventilator Setting NO, Blood Gas Inspired Oxygen 35% 09/14/17 05:13: Glucometer 192H 09/14/17 08:30: B-Type Natriuretic Peptide 453.5H 09/14/17 11:17: Glucometer 193H Microbiology 09/11/17 Blood Culture - Preliminary, Resulted No growth 09/11/17 Influenza Types A,B Antigen (ARMANDO) - Final, Complete 09/11/17 Urine Culture - Final, Complete Escherichia coli Clinical Quality Measures DVT/VTE Risk/Contraindication: Risk Factor Score Per Nursin RFS Level Per Nursing on Admit: 4+=Very High BENNY DOHERTY MD Sep 14, 2017 12:38
[2017-09-14] MEDS ORDERED: RT-ALBUTEROL/IPRATROPIUM 3 ML (DUONEB) VIAL INH SCH ×2 (14:45→16:00)
[2017-09-14 16:19] LABS: ABG BASE EXCESS 5.5 MMOL/L (-2.5-2.5); ABG OXYGEN SATURATION 95 % (94-100); ABG PCO2 43 MMHG (35-45); ABG PH 7.45 (7.37-7.43); ABG PO2 64 MMHG (79-93)
[2017-09-14 16:20] LABS: ALLENS TEST YES-POS; INSPIRED O2 45%; PATIENT TEMP 97.1; VENTILATOR NO
[2017-09-14] MEDS ORDERED: HALOPERIDOL 5 MG/ML (HALDOL) AMP IV PRN (17:15)
[2017-09-14 17:33] LABS: BASOPHILS # (AUTO) 0.1 10^3/uL (0.0-0.1); BASOPHILS % (AUTO) 1 % (0-10); EOSINOPHILS % (AUTO) 0 % (0-10); HEMATOCRIT 28 % (35-52); HEMOGLOBIN 9.5 G/DL (11.5-16.0); LYMPHOCYTES # (AUTO) 0.3 X 10^3 (1.0-4.0); LYMPHOCYTES % (AUTO) 3 % (12-44); MEAN CORPUSCULAR HEMOGLOBIN 34 PG (25-34); MEAN CORPUSCULAR HGB CONC 34 G/DL (32-36); MEAN CORPUSCULAR VOLUME 98 FL (80-99); MEAN PLATELET VOLUME 10.1 FL (7.4-10.4); MONOCYTES # (AUTO) 0.7 X 10^3 (0.0-1.0); MONOCYTES % (AUTO) 8 % (0-12); NEUTROPHILS % (AUTO) 88 % (42-75); PLATELET COUNT 164 10^3/uL (130-400); RED BLOOD COUNT 2.82 10^6/uL (4.35-5.85); RED CELL DISTRIBUTION WIDTH 14.1 % (10.0-14.5); WHITE BLOOD COUNT 9.1 10^3/uL (4.3-11.0)
[2017-09-14 17:49] LABS: ALANINE AMINOTRANSFERASE 21 U/L (0-55); ALBUMIN 2.5 GM/DL (3.2-4.5); ALKALINE PHOSPHATASE 74 U/L (40-136); AMMONIA 22 UMOL/L (11-32); BILIRUBIN,TOTAL 0.7 MG/DL (0.1-1.0); BUN/CREATININE RATIO 20; CALCIUM 8.3 MG/DL (8.5-10.1); CARBON DIOXIDE 26 MMOL/L (21-32); CHLORIDE 107 MMOL/L (98-107); CREATININE SERUM 0.87 MG/DL (0.60-1.30); GFR ESTIMATED > 60; GLUCOSE 187 MG/DL (70-105); POTASSIUM 2.9 MMOL/L (3.6-5.0); SODIUM 146 MMOL/L (135-145); TOTAL PROTEIN 5.5 GM/DL (6.4-8.2)
--- NOTE | 2017-09-14 18:55 | Diagnostic Imaging Report ---
PROCEDURE: CT chest and abdomen without contrast. TECHNIQUE: Axial images were obtained from the thoracic inlet through the iliac crest without the administration of intravenous contrast. DATE: 09/14/2017. COMPARISON: Chest radiograph 09/14/2017. INDICATION: 72-year-old female, cough and congestion. Dyspnea. PROCEDURE: Axial noncontrasted CT images of the chest and abdomen. Noncontrasted limits the evaluation of the mediastinum and vascular structures. There is limited evaluation of the abdominal parenchymal organs and vasculature without the use of intravenous contrast. FINDINGS: There is respiratory motion artifact. There is somewhat patchy multifocal alveolar consolidation in the right upper lobe, right middle lobe, right lower lobe, left lower lobe, and left upper lobe. There is a somewhat nodular area of consolidation in the superior aspect of the left lower lobe on axial image 20 which measures 12 mm in size. This may potentially relate to the alveolar consolidative process although a separate pulmonary nodule would be difficult to exclude. There is a trace left pleural effusion. There is no pneumothorax. The heart is not grossly enlarged. There are AP window lymph nodes measuring up to 11 mm in short axis. There is a anterior paratracheal lymph node measuring 9 mm in short axis on axial image 18. There is a subcarinal lymph node on axial image 26 which measures 1.6 cm in short axis. The liver is diffusely decreased in attenuation consistent with diffuse fatty infiltration of the liver. There is significant motion artifact at the level of the abdomen. The gallbladder is mildly distended. There is question of layering high-density material within the gallbladder versus artifact. There are no findings to suggest acute cholecystitis. There is no intrahepatic or extrapelvic bile duct dilation. The main pancreatic duct is not abnormally dilated. Grossly unremarkable appearance of the pancreatic parenchyma. The spleen is not enlarged. The adrenal glands are unremarkable. There is a low-attenuation right renal mass on axial image 69 measuring up to 4.6 cm in size with internal attenuation consistent with a benign cyst. The urinary collecting systems are not distended. There is no identified stone in the visualized portions of the ureters. There is an inferior vena cava filter. There is a very small hiatal hernia. The visualized segments of the intestinal tract are not distended. There is no identified free intraperitoneal air. There is a small amount of fluid near the lower esophagus. There is no identified additional free fluid in the abdomen. There is an expansile lytic lesion of the left iliac bone with absence of the overlying cortex on axial image 77 measuring at least 5.1 x 2.1 cm in size. There is an anchor in the right humeral head. There are kyphoplasty changes of the T8 vertebral body. There are compression deformities of T6 and T7, T10, T12, L1, L2, L3, and L4 of uncertain exact age. There is a mixed lucent and sclerotic appearance of the T12, L1, and L2 vertebral bodies. There are also patchy areas of sclerosis in T6 and a lucent lesion in the T1 vertebral body measuring up to 9 mm in size. IMPRESSION: 1. Multifocal somewhat patchy lung consolidation most likely relating to multifocal pneumonia including atypical infectious etiologies in the differential diagnosis. Pneumonitis would be a primary differential diagnostic consideration. 2. Trace left pleural effusion. 3. Prominent AP window and paratracheal lymph nodes which may potentially relate to the alveolar consolidative process although are nonspecific. 4. Diffuse fatty infiltration of the liver. 5. Destructive soft tissue attenuation of the left iliac bone which is present previously dating back to 07/28/2012. This is not FDG avid on prior PET/CT. Multiple lucent and sclerotic lesions of the thoracic and lumbar spine. There are multiple compression deformities of unclear exact age. Dictated by: Dictated on workstation # [id number]
[2017-09-15] VITALS (39 sets, daily range): BP systolic 95–154; BP diastolic 42–79
[2017-09-15] MEDS: POTASSIUM CL 10MEQ/50ML IVPB 50 ML IV SCH ×4 (00:08→06:00)
[2017-09-15] MEDS: methylPREDNISolone 40 MG/ML (Solu-MEDROL) VIAL IV SCH ×5 (00:16→23:58)
[2017-09-15] MEDS: inSUlin (REGULAR) HUMAN 1 UNIT/0.01 ML (CHARGE PER UNIT) SC SCH ×5 (00:17→23:57)
[2017-09-15] MEDS: RT-ALBUTEROL/IPRATROPIUM 3 ML (DUONEB) VIAL INH SCH ×11 (01:51→22:02)
[2017-09-15] MEDS: morphine INJ 4 MG/ML 1 ML (VIAL/SYRINGE) IVP PRN ×2 (02:30→04:51)
[2017-09-15 03:32] LABS: ABG BASE EXCESS 3.5 MMOL/L (-2.5-2.5); ABG OXYGEN SATURATION 94 % (94-100); ABG PCO2 41 MMHG (35-45); ABG PH 7.44 (7.37-7.43); ABG PO2 61 MMHG (79-93); ABG TCO2 28.8 MMOL/L (21.0-31.0)
[2017-09-15 03:41] LABS: ALLENS TEST YES-POS; INSPIRED O2 50%
[2017-09-15 03:42] LABS: PATIENT TEMP 98.1; VENTILATOR NO
[2017-09-15 03:46] LABS: BASOPHILS % (AUTO) 0 % (0-10); EOSINOPHILS % (AUTO) 0 % (0-10); HEMATOCRIT 28 % (35-52); HEMOGLOBIN 9.5 G/DL (11.5-16.0); LYMPHOCYTES # (AUTO) 0.3 X 10^3 (1.0-4.0); LYMPHOCYTES % (AUTO) 2 % (12-44); MEAN CORPUSCULAR HEMOGLOBIN 34 PG (25-34); MEAN CORPUSCULAR HGB CONC 34 G/DL (32-36); MEAN CORPUSCULAR VOLUME 99 FL (80-99); MEAN PLATELET VOLUME 10.2 FL (7.4-10.4); MONOCYTES # (AUTO) 0.6 X 10^3 (0.0-1.0); MONOCYTES % (AUTO) 6 % (0-12); NEUTROPHILS % (AUTO) 92 % (42-75); PLATELET COUNT 174 10^3/uL (130-400); RED BLOOD COUNT 2.83 10^6/uL (4.35-5.85); RED CELL DISTRIBUTION WIDTH 14.2 % (10.0-14.5); WHITE BLOOD COUNT 10.9 10^3/uL (4.3-11.0)
[2017-09-15 04:10] LABS: ALANINE AMINOTRANSFERASE 23 U/L (0-55); ALBUMIN 2.6 GM/DL (3.2-4.5); ALKALINE PHOSPHATASE 86 U/L (40-136); BILIRUBIN,TOTAL 0.6 MG/DL (0.1-1.0); BUN/CREATININE RATIO 19; CALCIUM 8.1 MG/DL (8.5-10.1); CARBON DIOXIDE 23 MMOL/L (21-32); CHLORIDE 109 MMOL/L (98-107); CREATININE SERUM 0.88 MG/DL (0.60-1.30); GFR ESTIMATED > 60; GLUCOSE 238 MG/DL (70-105); MAGNESIUM 2.3 MG/DL (1.8-2.4); PHOSPHORUS 1.7 MG/DL (2.3-4.7); POTASSIUM 3.7 MMOL/L (3.6-5.0); SODIUM 145 MMOL/L (135-145); TOTAL PROTEIN 5.5 GM/DL (6.4-8.2)
[2017-09-15] MEDS ORDERED: POTASSIUM PHOSPHATE INJ 30 MM in NS (IVPB) 250 ML IV ONE (05:45)
--- NOTE | 2017-09-15 05:50 | Pulmonary Progress Note ---
Subjective Time Seen by Provider: 05:53 Subjective/Events-last exam Pt has increased WOB and is confused. Exam Exam Vital Signs Date Time Temp Pulse Resp B/P (MAP) Pulse Ox O2 Delivery O2 Flow Rate FiO2 09/15/17 05:16 125 31 95 NIV Bilevel 60.00 09/15/17 05:00 112 24 100/66 (77) 99 NIV Bilevel 90.00 09/15/17 04:49 122 43 99 NIV Bilevel 90.00 09/15/17 04:00 98.1 NIV Bilevel 50.00 09/15/17 04:00 NIV Bilevel 50 09/15/17 04:00 114 20 118/56 (76) 94 NIV Bilevel 50.00 09/15/17 03:30 114 40 93 50.00 09/15/17 03:00 122 21 127/75 (92) 91 NIV Bilevel 50.00 09/15/17 02:00 96 23 104/59 (74) 94 NIV Bilevel 50.00 09/15/17 01:51 96 24 95 50.00 09/15/17 01:00 101 25 95/48 (64) 94 NIV Bilevel 50.00 09/15/17 01:00 101 09/15/17 00:00 97.1 NIV Bilevel 09/15/17 00:00 NIV Bilevel 50 09/15/17 00:00 106 21 108/42 (64) 94 NIV Bilevel 50.00 09/14/17 23:35 116 23 93 50.00 09/14/17 23:00 101 21 100/50 (67) 96 NIV Bilevel 50.00 09/14/17 22:00 112 33 99/46 (63) 95 NIV Bilevel 50.00 09/14/17 21:35 116 31 92 50.00 09/14/17 21:00 113 22 122/57 (78) 93 NIV Bilevel 50.00 09/14/17 20:13 92 21 95 50.00 09/14/17 20:00 NIV Bilevel 50 09/14/17 20:00 97.8 NIV Bilevel 50.00 09/14/17 20:00 90 23 115/54 (74) 94 NIV Bilevel 50.00 09/14/17 19:00 115 33 114/66 (82) 92 NIV Bilevel 50.00 09/14/17 19:00 115 09/14/17 18:26 87 22 96 50.00 09/14/17 18:00 NIV Bilevel 45.00 09/14/17 17:00 105 35 120/78 (92) 93 NIV Bilevel 45.00 09/14/17 16:34 87 25 45.00 09/14/17 16:00 92 27 128/61 (83) 92 NIV Bilevel 45.00 09/14/17 16:00 97.1 NIV Bilevel 45.00 09/14/17 16:00 NIV Bilevel 45 09/14/17 15:00 92 30 144/72 (96) 93 NIV Bilevel 45.00 09/14/17 14:33 88 93 45 09/14/17 14:15 82 20 45.00 09/14/17 14:00 75 21 151/68 (95) 93 NIV Bilevel 45.00 09/14/17 13:00 80 27 146/63 (90) 92 NIV Bilevel 45.00 09/14/17 13:00 80 09/14/17 12:34 105 39 45.00 09/14/17 12:27 NIV Bilevel 45.00 09/14/17 12:00 Vapotherm 25.00 50 09/14/17 12:00 92 32 152/76 (101) 91 Vapotherm 50.00 25.00 09/14/17 11:55 97.7 Vapotherm 50.00 25.00 09/14/17 11:00 81 25 153/76 (101) 94 Vapotherm 50.00 25.00 09/14/17 10:31 92 Vapotherm 25.00 50 09/14/17 10:00 103 28 152/80 (104) 92 Vapotherm 50.00 25.00 09/14/17 09:18 92 Vapotherm 25.00 50 09/14/17 09:18 Vapotherm 50.00 25.00 09/14/17 09:00 101 18 150/83 (105) 92 NIV Bilevel 35.00 09/14/17 08:00 98.7 NIV Bilevel 35.00 09/14/17 08:00 NIV Bilevel 35 09/14/17 07:00 86 27 142/70 (94) 92 NIV Bilevel 35.00 09/14/17 07:00 86 09/14/17 06:47 87 24 35.00 09/14/17 06:00 75 21 148/70 (96) 93 NIV Bilevel 35.00 I & O 09/15/17 07:00 Intake Total 2450 ml Output Total 1850 ml Balance 600 ml General Appearance: WD/WN, Anxious, Chronically ill, Moderate Distress HEENT: PERRL/EOMI, Pharynx Normal Neck: Full Range of Motion, Supple Respiratory: Chest Non Tender, Decreased Breath Sounds, Rhonci Cardiovascular: Regular Rate, Rhythm Capillary Refill: Less Than 3 Seconds Gastrointestinal: normal bowel sounds, non tender, soft, no organomegaly, no pulsatile mass Extremity: Non Tender, No Calf Tenderness, No Pedal Edema Neurologic/Psychiatric: Alert Skin: Normal Color, Cool, Ecchymosis, Pallor Lymphatic: No Adenopathy Results Lab Laboratory Tests 09/13/17 05:55 09/13/17 13:13 09/14/17 02:55 09/14/17 17:20 09/15/17 03:35 Assessment/Plan Assessment/Plan Admission Dx Acute respiratory failure -requiring BiPAP -Pt is having progressive increased WOB with RR in the 30-40's even while on BiPAP and is getting very confused agitated. Ct of chest reviewed and shows extensive bilateral infiltrates. -Will discuss with family regarding intubation and mechanical ventilation. -Repeat Lasix Metabolic acidosis -D/C bicarb gtt Hypernatremia, Hyperchloremia -CHange IVF to D5W -Monitor Influenza A -Tamiflu Pneumonia -Rocephin secondary to progressive SOB and extensive pulmonary infiltrates will change to Zosyn and add Vanco. -Repeat Knutson cultures including sputum after pt is intubated. UTI with Ecoli Acute Renal Failure Chronic Neutropenia Discussed with and medical staff regarding current medical condition and need for intubation. PT is a full code. agreed with intubation. ICU Time spent with patient, family and medical staff not including intubation is 60min. a Clinical Quality Measures DVT/VTE Risk/Contraindication: Risk Factor Score Per Nursin RFS Level Per Nursing on Admit: 4+=Very High FORTUNATO BARR DO Sep 15, 2017 05:50
[2017-09-15] MEDS: D5W 1000 ML IV SOLUTION 1,000 ML IV SCH (05:52)
[2017-09-15] MEDS: KCL 20 MEQ TAB (K-DUR) PO SCH (06:00)
[2017-09-15] MEDS: MAGNESIUM 1 GM/100 ML IVPB 100 ML IV SCH (06:00)
[2017-09-15] MEDS ORDERED: NS IV 1000 ML 1,000 ML ONE (06:03)
[2017-09-15] MEDS ORDERED: PROPOFOL DRIP (ICU) 100 ML IV ONE (06:03)
[2017-09-15] MEDS: LEVOTHYROXINE 75 MCG (LEVOTHROID) TABLET PO SCH (06:30)
[2017-09-15] MEDS ORDERED: NS IV 1000 ML 1,000 ML IV SCH ×2 (06:50→14:15)
--- NOTE | 2017-09-15 07:05 | Pulmonary Procedures ---
Pulmonary Procedures Date of Procedure Date of Service: Sep 15, 2017 Reason for Intubation: Repsiratory failure Time of Intubation: 07:04 Intubation Method: orotracheal Tube Size: 8 Medications: Propofol, Succinylcholine, Versed Positive End Tide CO2: Yes Breath Sounds after Intubation: bilateral-equal Intubation Complications: no complications Post Intubation Xray: Yes FORTUNATO BARR DO Sep 15, 2017 07:05
[2017-09-15] MEDS: PROPOFOL DRIP (ICU) 100 ML IV SCH ×4 (07:27→21:32)
[2017-09-15] MEDS ORDERED: fentaNYL INJECTION 1,250 MCG in NS (IVPB) 225 ML IV SCH (07:30)
--- NOTE | 2017-09-15 08:01 | Diagnostic Imaging Report ---
INDICATION: Post intubation FINDINGS: Portable view of the chest is compared to an exam from earlier the same day. An endotracheal tube has been placed in good position. [id number] remains in place. An orogastric tube has been placed in good position. Bilateral pulmonary infiltrates are unchanged. IMPRESSION: Interval enteric tube and endotracheal tube in place in good position. Bilateral pulmonary infiltrates appear stable. Dictated by: Dictated on workstation # [id number]
--- NOTE | 2017-09-15 08:26 | Progress Note (SOAP) ---
Subjective Date Seen by Provider: Sep 15, 2017 Time Seen by Provider: 08:40 Subjective/Events-last exam PT IS A 72 Y/O FEMALE WHO WAS ADMITTED WITH INFLUENZA AND H INFLUENZAE AND UTI. SHE WAS NOT IMPROVING OVER THE WEEKEND AND ENDED UP WITH INCREASED SHORTNESS OF BREATH AND WAS INTUBATED EARLY THIS MORNING. SHE IS UNABLE TO COMMUNICATE WITH ME TODAY DUE TO HER INTUBATED STATUS. Review of Systems PT INTUBATED. Objective Exam Vital Signs Date Time Temp Pulse Resp B/P (MAP) Pulse Ox O2 Delivery O2 Flow Rate FiO2 09/15/17 08:00 118 18 115/53 (73) 98 Mechanical Ventilator 100.00 09/15/17 07:27 130 28 109/61 97 Mechanical Ventilator 100.00 09/15/17 07:00 132 09/15/17 07:00 133 12 129/67 (87) 94 Mechanical Ventilator 100.00 09/15/17 06:36 112 31 95 60.00 09/15/17 06:00 112 33 131/69 (89) 97 NIV Bilevel 60.00 09/15/17 05:16 125 31 95 NIV Bilevel 60.00 09/15/17 05:00 112 24 100/66 (77) 99 NIV Bilevel 90.00 09/15/17 04:49 122 43 99 NIV Bilevel 90.00 09/15/17 04:00 98.1 NIV Bilevel 50.00 09/15/17 04:00 NIV Bilevel 50 09/15/17 04:00 114 20 118/56 (76) 94 NIV Bilevel 50.00 09/15/17 03:30 114 40 93 50.00 09/15/17 03:00 122 21 127/75 (92) 91 NIV Bilevel 50.00 09/15/17 02:00 96 23 104/59 (74) 94 NIV Bilevel 50.00 09/15/17 01:51 96 24 95 50.00 09/15/17 01:00 101 25 95/48 (64) 94 NIV Bilevel 50.00 09/15/17 01:00 101 09/15/17 00:00 97.1 NIV Bilevel 09/15/17 00:00 NIV Bilevel 50 09/15/17 00:00 106 21 108/42 (64) 94 NIV Bilevel 50.00 09/14/17 23:35 116 23 93 50.00 09/14/17 23:00 101 21 100/50 (67) 96 NIV Bilevel 50.00 09/14/17 22:00 112 33 99/46 (63) 95 NIV Bilevel 50.00 09/14/17 21:35 116 31 92 50.00 2/18 21:00 113 22 122/57 (78) 93 NIV Bilevel 50.00 09/14/17 20:13 92 21 95 50.00 09/14/17 20:00 NIV Bilevel 50 09/14/ 20:00 97.8 NIV Bilevel 50.00 09/14/ 20:00 90 23 115/54 (74) 94 NIV Bilevel 50.00 09/14/17 19:00 115 33 114/66 (82) 92 NIV Bilevel 50.00 09/14/17 19:00 115 09/14/17 18:26 87 22 96 50.00 09/14/17 18:00 NIV Bilevel 45.00 09/14/17 17:00 105 35 120/78 (92) 93 NIV Bilevel 45.00 09/14/17 16:34 87 25 45.00 09/14/17 16:00 92 27 128/61 (83) 92 NIV Bilevel 45.00 09/14/17 16:00 97.1 NIV Bilevel 45.00 09/14/17 16:00 NIV Bilevel 45 09/14/17 15:00 92 30 144/72 (96) 93 NIV Bilevel 45.00 09/14/17 14:33 88 93 45 09/14/17 14:15 82 20 45.00 09/14/17 14:00 75 21 151/68 (95) 93 NIV Bilevel 45.00 09/14/17 13:00 80 27 146/63 (90) 92 NIV Bilevel 45.00 09/14/17 13:00 80 09/14/17 12:34 105 39 45.00 09/14/17 12:27 NIV Bilevel 45.00 09/14/17 12:00 Vapotherm 25.00 50 18 12:00 92 32 152/76 (101) 91 Vapotherm 50.00 25.00 18 11:55 97.7 Vapotherm 50.00 25.00 18 11:00 81 25 153/76 (101) 94 Vapotherm 50.00 25.00 09/14/17 10:31 92 Vapotherm 25.00 50 09/14/17 10:00 103 28 152/80 (104) 92 Vapotherm 50.00 25.00 09/14/17 09:18 92 Vapotherm 25.00 50 09/14/17 09:18 Vapotherm 50.00 25.00 09/14/17 09:00 101 18 150/83 (105) 92 NIV Bilevel 35.00 I & O 09/15/17 07:00 Intake Total 2450 ml Output Total 2000 ml Balance 450 ml Capillary Refill : Less Than 3 SecondsLess Than 3 Seconds General Appearance: Other (INTUBATED) Respiratory: Crackles, Decreased Breath Sounds Cardiovascular: Regular Rate, Rhythm Gastrointestinal: normal bowel sounds, soft Extremity: Normal Capillary Refill, No Pedal Edema Neurologic/Psychiatric: Alert, Oriented x3, No Motor/Sensory Deficits, Normal Mood/Affect Skin: Warm/Dry Results Lab Laboratory Tests 09/14/17 08:30: B-Type Natriuretic Peptide 453.5H 09/14/17 11:17: Glucometer 193H 09/14/17 16:10: Blood Gas Puncture Site R RAD, Blood Gas Patient Temperature 97.1, Arterial Blood pH 7.45H, Arterial Blood Partial Pressure CO2 43, Arterial Blood Partial Pressure O2 64L, Arterial Blood HCO3 30H, Arterial Blood Total CO2 31.0, Arterial Blood Oxygen Saturation 95, Arterial Blood Base Excess 5.5H, Jesse Test YES-POS, Blood Gas Ventilator Setting NO, Blood Gas Inspired Oxygen 45% 09/14/17 17:20: White Blood Count 9.1, Red Blood Count 2.82L, Hemoglobin 9.5L, Hematocrit 28L, Mean Corpuscular Volume 98, Mean Corpuscular Hemoglobin 34, Mean Corpuscular Hemoglobin Concent 34, Red Cell Distribution Width 14.1, Platelet Count 164, Mean Platelet Volume 10.1, Neutrophils (%) (Auto) 88H, Lymphocytes (%) (Auto) 3L , Monocytes (%) (Auto) 8, Eosinophils (%) (Auto) 0, Basophils (%) (Auto) 1, Neutrophils # (Auto) 8.0H, Lymphocytes # (Auto) 0.3L, Monocytes # (Auto) 0.7, Eosinophils # (Auto) 0.0, Basophils # (Auto) 0.1, Sodium Level 146H, Potassium Level 2.9L, Chloride Level 107, Carbon Dioxide Level 26, Anion Gap 13, Blood Urea Nitrogen 17, Creatinine 0.87, Estimat Glomerular Filtration Rate > 60, BUN/ Creatinine Ratio 20, Glucose Level 187H, Calcium Level 8.3L, Total Bilirubin 0.7 , Aspartate Amino Transf (AST/SGOT) 17, Alanine Aminotransferase (ALT/SGPT) 21, Alkaline Phosphatase 74, Ammonia 22, Total Protein 5.5L, Albumin 2.5L 09/14/17 19:45: Magnesium Level 1.6L, Troponin I < 0.30 09/15/17 00:10: Glucometer 256H 09/15/17 03:25: Blood Gas Puncture Site RIGHT RADIAL, Blood Gas Patient Temperature 98.1, Arterial Blood pH 7.44H, Arterial Blood Partial Pressure CO2 41, Arterial Blood Partial Pressure O2 61L, Arterial Blood HCO3 28H, Arterial Blood Total CO2 28.8 , Arterial Blood Oxygen Saturation 94, Arterial Blood Base Excess 3.5H, Jesse Test YES-POS, Blood Gas Ventilator Setting NO, Blood Gas Inspired Oxygen 50% 09/15/17 03:35: Magnesium Level 2.3, White Blood Count 10.9, Red Blood Count 2.83L, Hemoglobin 9.5L, Hematocrit 28L, Mean Corpuscular Volume 99, Mean Corpuscular Hemoglobin 34 , Mean Corpuscular Hemoglobin Concent 34, Red Cell Distribution Width 14.2, Platelet Count 174, Mean Platelet Volume 10.2, Neutrophils (%) (Auto) 92H, Lymphocytes (%) (Auto) 2L, Monocytes (%) (Auto) 6, Eosinophils (%) (Auto) 0, Basophils (%) (Auto) 0, Neutrophils # (Auto) 10.0H, Lymphocytes # (Auto) 0.3L, Monocytes # (Auto) 0.6, Eosinophils # (Auto) 0.0, Basophils # (Auto) 0.0, Sodium Level 145, Potassium Level 3.7, Chloride Level 109H, Carbon Dioxide Level 23, Anion Gap 13, Blood Urea Nitrogen 17, Creatinine 0.88, Estimat Glomerular Filtration Rate > 60, BUN/Creatinine Ratio 19, Glucose Level 238H, Calcium Level 8.1L, Phosphorus Level 1.7L, Total Bilirubin 0.6, Aspartate Amino Transf (AST/SGOT) 20, Alanine Aminotransferase (ALT/SGPT) 23, Alkaline Phosphatase 86, Total Protein 5.5L, Albumin 2.6L Microbiology 09/13/17 Blood Culture - Preliminary, Resulted No growth 09/11/17 Influenza Types A,B Antigen (ARMANDO) - Final, Complete 09/11/17 Urine Culture - Final, Complete Escherichia coli Assessment/Plan Assessment/Plan Assess & Plan/Chief Complaint RESPIRATORY FAILURE INFLUENZA PNEUMONIA DEHYDRATION ACUTE RENAL INSUFFICIENCY URINARY TRACT INFECTION CHRONIC DEPRESSION CHRONIC NEUTROPENIA WITH WHITE COUNT NORMAL, BUT ELEVATED FOR THIS PATIENT. INFLUENZA AND PNEUMONIA - CONTINUE WITH INTUBATED STATUS - CONTINUE WITH ANTIBIOTICS - MEDICATION ADJUSTED BY DR. BARR HAEMOPHILUS INFLUENZAE AND ECOLI AND INFLUENZA A - CLOSELY MONITOR SYMPTOMS. MONITOR SERIAL CHEST XRAYS, MAT PROTOCOL. DEHYDRATION - IV FLUIDS FOR HYDRATION ACUTE RENAL INSUFFICIENCY - IV FLUIDS, MONITOR RENAL FUNCTION WITH SERIAL LABS. URINARY TRACT INFECTION - ON IV ANTIBIOTICS. CHRONIC DEPRESSION - HOLDING ORAL MEDICATIONS NEUTROPENIA - RESOLVED AFTER GRANIX THIS WEEKEND. PT IS ACUTELY ILL AND I EXPECT THAT SHE WILL NEED TO BE IN THE HOSPITAL AT LEAST 3-4 MIDNIGHTS SHE HAS SIGNIFICANT ILLNESS AND WILL NEED IV ANTIBIOTICS , HYDRATION, AND PHYSICAL THERAPY. I SUSPECT THAT SHE WILL NEED A FEW WEEKS A ASSISTED FOR SKILLED THERAPY FOR RECOVERY PRIOR TO GOING HOME. FAMILY H INDICATED THAT THEY WOULD PREFER [facility] ON DISCHARGE. Clinical Quality Measures DVT/VTE Risk/Contraindication: Risk Factor Score Per Nursin RFS Level Per Nursing on Admit: 4+=Very High ORTEGA PIERRE MD Sep 15, 2017 08:26
--- NOTE | 2017-09-15 08:32 | Diagnostic Imaging Report ---
INDICATION: Dyspnea. COMPARISON: 09/14/2017. FINDINGS: Single frontal radiographic view of the chest was obtained and continues to demonstrate scattered patchy alveolar infiltrates. Overall, aeration has not significantly changed. There is no large effusion or pneumothorax. Cardiac silhouette and pulmonary vasculature are within normal limits. Left-sided subclavian Port-A-Cath is present with tip in the SVC. Bony structures show no new acute adverse changes. IMPRESSION: Stable exam of the chest showing scattered bilateral patchy infiltrates. Dictated by: Dictated on workstation # [id number]
[2017-09-15] MEDS: FLUoxetine HCL 20 MG (PROzac) CAP PO SCH (08:43)
[2017-09-15] MEDS: PANTOPRAZOLE 40 MG/10 ML (PROTONIX) VIAL IV SCH (08:58)
[2017-09-15] MEDS: cefTRIAXone INJECTION 1,000 MG in NS (IVPB) 50 ML IV SCH (08:58)
[2017-09-15] MEDS ORDERED: SUCCINYLCHOLINE INJ 100 MG/5 ML SYR INJ ONE (09:52)
[2017-09-15] MEDS ORDERED: MIDAZOLAM 5 MG/5 ML (VERSED) VIAL IJ ONE (09:52)
[2017-09-15] MEDS: OSELTAMIVIR 30 MG (TAMIFLU) BOX OF 10 PO SCH (10:56)
[2017-09-15] MEDS: OLANZapine 2.5 MG (ZyPREXA) TAB PO SCH (10:56)
[2017-09-15] MEDS: LETROZOLE 2.5 MG (FEMARA) TAB PO SCH (10:56)
[2017-09-15] MEDS: ACYCLOVIR 400 MG TABLET (ZOVIRAX) PO SCH (10:56)
[2017-09-15] MEDS: MENTHOL/ZINC OXIDE (CALMOSEPTINE) 113 GM TUBE TOP SCH ×2 (10:57→21:33)
--- NOTE | 2017-09-15 12:24 | Diagnostic Imaging Report ---
PROCEDURE: CT head without contrast. TECHNIQUE: Multiple contiguous axial images were obtained through the brain without the use of intravenous contrast. INDICATION: Mental status changes. COMPARISON: No prior studies are available for comparison. FINDINGS: The ventricles and sulci are appropriate for the patient's age. There is moderate periventricular hypodensity noted consistent with chronic microvascular ischemia. No sulcal effacement is seen. There is no midline shift. No acute intra-axial or extra-axial hemorrhage is identified. Cisterns are patent. Visualized paranasal sinuses are clear. IMPRESSION: Changes of chronic white matter disease. No acute intracranial process is detected. Dictated by: Dictated on workstation # [id number]
--- NOTE | 2017-09-15 14:27 | Occ Therapy Progress Note ---
Therapy Progress Note Pt. intubated at this time. Will continue to monitor pt. closely. Will wait to evaluate pt. at this time. 1430 LAUREN BOWEN OT Sep 15, 2017 14:27
[2017-09-16] VITALS (33 sets, daily range): BP systolic 119–167; BP diastolic 61–99
[2017-09-16] MEDS: RT-ALBUTEROL/IPRATROPIUM 3 ML (DUONEB) VIAL INH SCH ×12 (00:02→22:52)
[2017-09-16] MEDS: PROPOFOL DRIP (ICU) 100 ML IV SCH ×4 (03:00→20:17)
[2017-09-16] MEDS: D5W 1000 ML IV SOLUTION 1,000 ML IV SCH (03:03)
[2017-09-16 03:30] LABS: BASOPHILS % (AUTO) 0 % (0-10); EOSINOPHILS % (AUTO) 0 % (0-10); HEMATOCRIT 27 % (35-52); HEMOGLOBIN 8.8 G/DL (11.5-16.0); LYMPHOCYTES # (AUTO) 0.3 X 10^3 (1.0-4.0); LYMPHOCYTES % (AUTO) 4 % (12-44); MEAN CORPUSCULAR HEMOGLOBIN 34 PG (25-34); MEAN CORPUSCULAR HGB CONC 33 G/DL (32-36); MEAN CORPUSCULAR VOLUME 102 FL (80-99); MEAN PLATELET VOLUME 10.6 FL (7.4-10.4); MONOCYTES # (AUTO) 0.4 X 10^3 (0.0-1.0); MONOCYTES % (AUTO) 6 % (0-12); NEUTROPHILS # (AUTO) 5.7 X 10^3 (1.8-7.8); NEUTROPHILS % (AUTO) 90 % (42-75); PLATELET COUNT 160 10^3/uL (130-400); RED BLOOD COUNT 2.62 10^6/uL (4.35-5.85); RED CELL DISTRIBUTION WIDTH 14.9 % (10.0-14.5); WHITE BLOOD COUNT 6.3 10^3/uL (4.3-11.0)
[2017-09-16 03:32] LABS: ABG BASE EXCESS 2.1 MMOL/L (-2.5-2.5); ABG OXYGEN SATURATION 88 % (94-100); ABG PCO2 43 MMHG (35-45); ABG PH 7.41 (7.37-7.43); ABG PO2 53 MMHG (79-93); ABG TCO2 27.6 MMOL/L (21.0-31.0)
[2017-09-16 03:36] LABS: ALLENS TEST YES-POS; INSPIRED O2 50%; PATIENT TEMP 98.9; VENTILATOR YES
[2017-09-16 03:50] LABS: BUN/CREATININE RATIO 18; CALCIUM 7.7 MG/DL (8.5-10.1); CARBON DIOXIDE 24 MMOL/L (21-32); CHLORIDE 110 MMOL/L (98-107); CREATININE SERUM 0.79 MG/DL (0.60-1.30); GFR ESTIMATED > 60; GLUCOSE 184 MG/DL (70-105); MAGNESIUM 1.9 MG/DL (1.8-2.4); PHOSPHORUS 3.7 MG/DL (2.3-4.7); POTASSIUM 3.7 MMOL/L (3.6-5.0); SODIUM 143 MMOL/L (135-145)
[2017-09-16] MEDS: POTASSIUM CL 10MEQ/50ML IVPB 50 ML IV SCH (05:51)
[2017-09-16] MEDS: KCL 20 MEQ TAB (K-DUR) PO SCH (05:52)
[2017-09-16] MEDS: MAGNESIUM 1 GM/100 ML IVPB 100 ML IV SCH (05:52)
[2017-09-16] MEDS: methylPREDNISolone 40 MG/ML (Solu-MEDROL) VIAL IV SCH ×3 (06:24→18:29)
[2017-09-16] MEDS: inSUlin (REGULAR) HUMAN 1 UNIT/0.01 ML (CHARGE PER UNIT) SC SCH ×3 (06:33→18:30)
[2017-09-16] MEDS: LEVOTHYROXINE 75 MCG (LEVOTHROID) TABLET PO SCH (06:35)
[2017-09-16] MEDS ORDERED: NS IV 1000 ML 1,000 ML IV SCH (07:00)
--- NOTE | 2017-09-16 07:13 | Pulmonary Progress Note ---
Subjective Date Seen by Provider: Sep 16, 2017 Time Seen by Provider: 07:36 Subjective/Events-last exam Pt is coughing and appears agitated. Exam Exam Vital Signs Date Time Temp Pulse Resp B/P (MAP) Pulse Ox O2 Delivery O2 Flow Rate FiO2 09/16/17 06:51 108 21 94 50 09/16/17 04:06 92 21 95 50 09/16/17 04:00 98.9 09/16/17 04:00 Mechanical Ventilator 50 09/16/17 03:00 87 18 149/69 (95) 96 Mechanical Ventilator 50.00 09/16/17 03:00 88 09/16/17 02:01 96 23 95 50 09/16/17 02:00 99 24 143/72 (95) 95 Mechanical Ventilator 50.00 09/16/17 01:00 92 09/16/17 01:00 92 19 142/65 (90) 96 Mechanical Ventilator 50.00 09/16/17 00:02 94 19 97 50 09/16/17 00:00 101 18 145/69 (94) 97 Mechanical Ventilator 50.00 09/16/17 00:00 Mechanical Ventilator 50 09/15/17 23:23 98.2 09/15/17 23:00 97 20 133/62 (85) 96 Mechanical Ventilator 50.00 09/15/17 22:03 114 27 96 50 09/15/17 22:00 113 22 138/67 (90) 96 Mechanical Ventilator 50.00 09/15/17 21:32 98 09/15/17 21:00 102 20 126/62 (83) 96 Mechanical Ventilator 50.00 09/15/17 20:06 99.3 Mechanical Ventilator 50.00 09/15/17 20:00 Mechanical Ventilator 50 09/15/17 20:00 98 20 127/68 (87) 96 Mechanical Ventilator 50.00 09/15/17 19:56 96 20 96 50 09/15/17 19:45 96 20 132/62 (85) 96 Mechanical Ventilator 50.00 09/15/17 19:30 102 19 141/66 (91) 96 Mechanical Ventilator 50.00 09/15/17 19:15 105 18 149/68 (95) 96 Mechanical Ventilator 50.00 09/15/17 19:00 104 09/15/17 19:00 104 21 148/68 (94) 96 Mechanical Ventilator 50.00 09/15/17 18:14 91 21 98 50 09/15/17 18:00 101 18 148/79 (102) 98 Mechanical Ventilator 50.00 09/15/17 17:00 98 20 135/65 (88) 98 Mechanical Ventilator 50.00 09/15/17 16:50 0 09/15/17 16:50 98.9 09/15/17 16:34 92 19 98 50 09/15/17 16:00 94 20 139/70 (93) 98 Mechanical Ventilator 50.00 09/15/17 15:38 112 27 144/70 96 Mechanical Ventilator 50.00 09/15/17 15:00 120 28 148/69 (95) 93 Mechanical Ventilator 50.00 09/15/17 14:45 50.00 09/15/17 14:44 93 20 99 60 09/15/17 14:00 103 21 137/68 (91) 96 Mechanical Ventilator 60.00 09/15/17 13:40 60.00 09/15/17 13:00 89 18 133/68 (89) 100 Mechanical Ventilator 70.00 09/15/17 13:00 89 09/15/17 12:40 84 18 99 70 09/15/17 12:00 111 22 132/65 (87) 99 Mechanical Ventilator 70.00 09/15/17 11:39 70 09/15/17 11:37 98.2 09/15/17 11:00 100 20 127/62 (83) 99 Mechanical Ventilator 70.00 09/15/17 10:45 70.00 09/15/17 10:37 103 18 137/62 97 Mechanical Ventilator 70.00 09/15/17 10:29 85 18 99 80 09/15/17 10:00 89 18 121/58 (79) 99 Mechanical Ventilator 80.00 09/15/17 09:23 98 19 100 100 09/15/17 09:19 80.00 09/15/17 09:09 97.5 09/15/17 09:00 100 09/15/17 09:00 100 17 113/59 (77) 100 Mechanical Ventilator 100.00 09/15/17 08:15 09/15/17 08:00 118 18 115/53 (73) 98 Mechanical Ventilator 100.00 09/15/17 07:27 130 28 109/61 97 Mechanical Ventilator 100.00 I & O 09/16/17 07:00 Intake Total 3900 ml Output Total 645 ml Balance 3255 ml General Appearance: WD/WN, Anxious, Chronically ill, Moderate Distress HEENT: PERRL/EOMI, Pharynx Normal Neck: Full Range of Motion, Supple Respiratory: Chest Non Tender, Decreased Breath Sounds, Rhonci Cardiovascular: Regular Rate, Rhythm Capillary Refill: Less Than 3 Seconds Gastrointestinal: normal bowel sounds, non tender, soft, no organomegaly, no pulsatile mass Extremity: Non Tender, No Calf Tenderness, No Pedal Edema Neurologic/Psychiatric: Alert Skin: Normal Color, Cool, Ecchymosis, Pallor Lymphatic: No Adenopathy Results Lab Laboratory Tests 09/14/17 17:20 09/15/17 03:35 09/16/17 03:10 Assessment/Plan Assessment/Plan Acute respiratory failure - mechanical ventilation. -Pt is currently on Diprivan and Fentanyl gtt. CUrrently pt is coughing and appears agitated. Will give a bolus of Fentanyl for sedation. Pneumonia with Helophilus -Pt has extensive Bilateral infiltrates. -Will plan on bedside bronchoscopy tomorrow morning. - Change Abx to Zosyn Decreased UO -Will give 1 liter IVF bolus and increase IVF to 100cc/hr after bolus UTI with Ecoli Acute Renal Failure - improved -Monitor Chronic Neutropenia I discussed with patients family, pharmacy and RN pt's current medications and IVF. Family consents to bronchoscopy. Time spent with patient 60min. Labs and radiology reviewed. Critical Care: Critically Ill Patient Time spent with patient (mins): 60 FORTUNATO BARR DO Sep 16, 2017 07:13
--- NOTE | 2017-09-16 07:30 | Diagnostic Imaging Report ---
INDICATION: Dyspnea. COMPARISON: Comparison is made with the prior examination dated 09/15/2017. FINDINGS: The lines and tubes are in satisfactory position. This is cardiomegaly. There is some venous congestion. There are bilateral pulmonary infiltrates. There is a left pleural effusion. There is no pneumothorax. IMPRESSION: Increasing bilateral pulmonary infiltrates with a left pleural effusion. Cardiomegaly and some central pulmonary venous congestion. Dictated by: Dictated on workstation # [id number]
--- NOTE | 2017-09-16 07:59 | Physical Therapy Progress Note ---
Therapy Progress Note Patient remains sedated and on ventilator. Per report, patient will have a bronch tomorrow. PT will evaluate when patient is medically stable. HARSHA JACKSON PT Sep 16, 2017 07:59
[2017-09-16] MEDS ORDERED: PIPERACILLIN SODIUM/TAZOBACTAM 4.5 GM in NS (IVPB) 100 ML IV NR (08:00)
--- NOTE | 2017-09-16 08:12 | Progress Note (SOAP) ---
Subjective Date Seen by Provider: Sep 16, 2017 Time Seen by Provider: 08:20 Subjective/Events-last exam PT INTUBATED - UNRESPONSIVE. Review of Systems PT INTUBATED AND UNABLE TO RESPOND Objective Exam Vital Signs Date Time Temp Pulse Resp B/P (MAP) Pulse Ox O2 Delivery O2 Flow Rate FiO2 09/16/17 06:51 108 21 94 50 09/16/17 06:00 100 23 150/70 (96) 96 Mechanical Ventilator 50.00 09/16/17 05:00 118 35 156/88 (110) 93 Mechanical Ventilator 50.00 09/16/17 04:06 92 21 95 50 09/16/17 04:00 98.9 09/16/17 04:00 Mechanical Ventilator 50 09/16/17 04:00 92 21 156/75 (102) 96 Mechanical Ventilator 50.00 09/16/17 03:00 87 18 149/69 (95) 96 Mechanical Ventilator 50.00 09/16/17 03:00 88 09/16/17 02:01 96 23 95 50 09/16/17 02:00 99 24 143/72 (95) 95 Mechanical Ventilator 50.00 09/16/17 01:00 92 09/16/17 01:00 92 19 142/65 (90) 96 Mechanical Ventilator 50.00 09/16/17 00:02 94 19 97 50 09/16/17 00:00 101 18 145/69 (94) 97 Mechanical Ventilator 50.00 09/16/17 00:00 Mechanical Ventilator 50 09/15/17 23:23 98.2 09/15/17 23:00 97 20 133/62 (85) 96 Mechanical Ventilator 50.00 09/15/17 22:03 114 27 96 50 09/15/17 22:00 113 22 138/67 (90) 96 Mechanical Ventilator 50.00 09/15/17 21:32 98 09/15/17 21:00 102 20 126/62 (83) 96 Mechanical Ventilator 50.00 09/15/17 20:06 99.3 Mechanical Ventilator 50.00 09/15/17 20:00 Mechanical Ventilator 50 09/15/17 20:00 98 20 127/68 (87) 96 Mechanical Ventilator 50.00 09/15/17 19:56 96 20 96 50 09/15/17 19:45 96 20 132/62 (85) 96 Mechanical Ventilator 50.00 09/15/17 19:30 102 19 141/66 (91) 96 Mechanical Ventilator 50.00 09/15/17 19:15 105 18 149/68 (95) 96 Mechanical Ventilator 50.00 09/15/17 19:00 104 09/15/17 19:00 104 21 148/68 (94) 96 Mechanical Ventilator 50.00 09/15/17 18:14 91 21 98 50 09/15/17 18:00 101 18 148/79 (102) 98 Mechanical Ventilator 50.00 09/15/17 17:00 98 20 135/65 (88) 98 Mechanical Ventilator 50.00 09/15/17 16:50 0 09/15/17 16:50 98.9 09/15/17 16:34 92 19 98 50 09/15/17 16:00 94 20 139/70 (93) 98 Mechanical Ventilator 50.00 09/15/17 15:38 112 27 144/70 96 Mechanical Ventilator 50.00 09/15/17 15:00 120 28 148/69 (95) 93 Mechanical Ventilator 50.00 09/15/17 14:45 50.00 09/15/17 14:44 93 20 99 60 09/15/17 14:00 103 21 137/68 (91) 96 Mechanical Ventilator 60.00 09/15/17 13:40 60.00 09/15/17 13:00 89 18 133/68 (89) 100 Mechanical Ventilator 70.00 09/15/17 13:00 89 09/15/17 12:40 84 18 99 70 09/15/17 12:00 111 22 132/65 (87) 99 Mechanical Ventilator 70.00 09/15/17 11:39 70 09/15/17 11:37 98.2 09/15/17 11:00 100 20 127/62 (83) 99 Mechanical Ventilator 70.00 09/15/17 10:45 70.00 09/15/17 10:37 103 18 137/62 97 Mechanical Ventilator 70.00 09/15/17 10:29 85 18 99 80 09/15/17 10:00 89 18 121/58 (79) 99 Mechanical Ventilator 80.00 09/15/17 09:23 98 19 100 100 09/15/17 09:19 80.00 09/15/17 09:09 97.5 09/15/17 09:00 100 09/15/17 09:00 100 17 113/59 (77) 100 Mechanical Ventilator 100.00 09/15/17 08:15 I & O 09/16/17 07:00 Intake Total 3900 ml Output Total 645 ml Balance 3255 ml Capillary Refill : Less Than 3 SecondsLess Than 3 Seconds General Appearance: Other (PT INTUBATED, SEDATED) Respiratory: Decreased Breath Sounds Cardiovascular: Regular Rate, Rhythm, No Edema Gastrointestinal: normal bowel sounds, soft Neurologic/Psychiatric: Other (INTUBATED) Skin: Warm/Dry Results Lab Laboratory Tests 09/15/17 11:36: Glucometer 175H 09/15/17 18:17: Glucometer 203H 09/15/17 23:52: Glucometer 185H 09/16/17 03:10: White Blood Count 6.3, Red Blood Count 2.62L, Hemoglobin 8.8L, Hematocrit 27L, Mean Corpuscular Volume 102H, Mean Corpuscular Hemoglobin 34, Mean Corpuscular Hemoglobin Concent 33, Red Cell Distribution Width 14.9H, Platelet Count 160, Mean Platelet Volume 10.6H, Neutrophils (%) (Auto) 90H, Lymphocytes (%) (Auto) 4L, Monocytes (%) (Auto) 6, Eosinophils (%) (Auto) 0, Basophils (%) (Auto) 0, Neutrophils # (Auto) 5.7, Lymphocytes # (Auto) 0.3L, Monocytes # (Auto) 0.4, Eosinophils # (Auto) 0.0, Basophils # (Auto) 0.0, Sodium Level 143, Potassium Level 3.7, Chloride Level 110H, Carbon Dioxide Level 24, Anion Gap 9, Blood Urea Nitrogen 14, Creatinine 0.79, Estimat Glomerular Filtration Rate > 60, BUN/ Creatinine Ratio 18, Glucose Level 184H, Calcium Level 7.7L, Phosphorus Level 3.7, Magnesium Level 1.9 09/16/17 03:25: Blood Gas Puncture Site RIGHT RADIAL, Blood Gas Patient Temperature 98.9, Arterial Blood pH 7.41, Arterial Blood Partial Pressure CO2 43, Arterial Blood Partial Pressure O2 53L, Arterial Blood HCO3 26, Arterial Blood Total CO2 27.6, Arterial Blood Oxygen Saturation 88L, Arterial Blood Base Excess 2.1, Jesse Test YES-POS, Blood Gas Ventilator Setting YES, Blood Gas Inspired Oxygen 50% Microbiology 09/13/17 Blood Culture - Preliminary, Resulted No growth 09/13/17 MRSA Screen - Final, Complete MRSA not isolated 09/11/17 Urine Culture - Final, Complete Escherichia coli Assessment/Plan Assessment/Plan Assess & Plan/Chief Complaint RESPIRATORY FAILURE INFLUENZA PNEUMONIA DEHYDRATION ACUTE RENAL INSUFFICIENCY URINARY TRACT INFECTION CHRONIC DEPRESSION CHRONIC NEUTROPENIA WITH WHITE COUNT NORMAL, BUT ELEVATED FOR THIS PATIENT. INFLUENZA AND PNEUMONIA - CONTINUE WITH INTUBATED STATUS - CONTINUE WITH ANTIBIOTICS - MEDICATION ADJUSTED BY DR. BARR HAEMOPHILUS INFLUENZAE AND ECOLI AND INFLUENZA A - CLOSELY MONITOR SYMPTOMS. MONITOR SERIAL CHEST XRAYS, MAT PROTOCOL. DEHYDRATION - IV FLUIDS FOR HYDRATION ACUTE RENAL INSUFFICIENCY - IV FLUIDS, MONITOR RENAL FUNCTION WITH SERIAL LABS. URINARY TRACT INFECTION - ON IV ANTIBIOTICS. CHRONIC DEPRESSION - HOLDING ORAL MEDICATIONS NEUTROPENIA - RESOLVED AFTER GRANIX. PT IS ACUTELY ILL AND I EXPECT THAT SHE WILL NEED TO BE IN THE HOSPITAL AT LEAST 3-4 MIDNIGHTS SHE HAS SIGNIFICANT ILLNESS AND WILL NEED IV ANTIBIOTICS , HYDRATION, AND PHYSICAL THERAPY. I SUSPECT THAT SHE WILL NEED A FEW WEEKS A [facility] FOR SKILLED THERAPY FOR RECOVERY PRIOR TO GOING HOME. FAMILY H INDICATED THAT THEY WOULD PREFER [facility] ON DISCHARGE. Clinical Quality Measures DVT/VTE Risk/Contraindication: Risk Factor Score Per Nursin RFS Level Per Nursing on Admit: 4+=Very High ORTEGA PIERRE MD Sep 16, 2017 08:12
--- NOTE | 2017-09-16 09:43 | Occ Therapy Progress Note ---
Therapy Progress Note Pt. continues to be on sedation and mechanical support. Will continue to monitor and evaluate when off ventilation. [id number] LAUREN BOWEN OT Sep 16, 2017 09:43
[2017-09-16] MEDS: OLANZapine 2.5 MG (ZyPREXA) TAB PO SCH (09:56)
[2017-09-16] MEDS: ACYCLOVIR 400 MG TABLET (ZOVIRAX) PO SCH (09:57)
[2017-09-16] MEDS: MENTHOL/ZINC OXIDE (CALMOSEPTINE) 113 GM TUBE TOP SCH ×2 (09:57→21:27)
[2017-09-16] MEDS: FLUoxetine HCL 20 MG (PROzac) CAP PO SCH (09:57)
[2017-09-16] MEDS: PANTOPRAZOLE 40 MG/10 ML (PROTONIX) VIAL IV SCH (09:57)
[2017-09-16] MEDS: LETROZOLE 2.5 MG (FEMARA) TAB PO SCH (09:58)
[2017-09-16] MEDS: PIPERACILLIN SODIUM/TAZOBACTAM 4.5 GM in NS (IVPB) 100 ML IV SCH ×2 (12:55→21:26)
[2017-09-16] MEDS: fentaNYL INJECTION 1,250 MCG in NS (IVPB) 250 ML IV SCH (15:57)
[2017-09-17] VITALS (24 sets, daily range): BP systolic 117–181; BP diastolic 58–102
[2017-09-17] MEDS: RT-ALBUTEROL/IPRATROPIUM 3 ML (DUONEB) VIAL INH SCH ×13 (00:17→22:17)
[2017-09-17] MEDS: D5W 1000 ML IV SOLUTION 1,000 ML IV SCH ×5 (00:27→21:10)
[2017-09-17] MEDS: PROPOFOL DRIP (ICU) 100 ML IV SCH ×2 (00:27→04:34)
[2017-09-17 03:30] LABS: BASOPHILS % (AUTO) 0 % (0-10); EOSINOPHILS % (AUTO) 0 % (0-10); HEMATOCRIT 27 % (35-52); HEMOGLOBIN 8.9 G/DL (11.5-16.0); LYMPHOCYTES # (AUTO) 0.3 X 10^3 (1.0-4.0); LYMPHOCYTES % (AUTO) 5 % (12-44); MEAN CORPUSCULAR HEMOGLOBIN 34 PG (25-34); MEAN CORPUSCULAR HGB CONC 33 G/DL (32-36); MEAN CORPUSCULAR VOLUME 102 FL (80-99); MEAN PLATELET VOLUME 10.5 FL (7.4-10.4); MONOCYTES # (AUTO) 0.4 X 10^3 (0.0-1.0); MONOCYTES % (AUTO) 7 % (0-12); NEUTROPHILS # (AUTO) 4.5 X 10^3 (1.8-7.8); NEUTROPHILS % (AUTO) 87 % (42-75); PLATELET COUNT 165 10^3/uL (130-400); RED BLOOD COUNT 2.62 10^6/uL (4.35-5.85); RED CELL DISTRIBUTION WIDTH 14.9 % (10.0-14.5); WHITE BLOOD COUNT 5.2 10^3/uL (4.3-11.0)
[2017-09-17 03:32] LABS: ABG BASE EXCESS 0.3 MMOL/L (-2.5-2.5); ABG OXYGEN SATURATION 97 % (94-100); ABG PCO2 42 MMHG (35-45); ABG PH 7.39 (7.37-7.43); ABG PO2 80 MMHG (79-93); ABG TCO2 26.1 MMOL/L (21.0-31.0)
[2017-09-17 03:34] LABS: ALLENS TEST YES-POS; INSPIRED O2 50%; PATIENT TEMP 97.8; VENTILATOR YES
[2017-09-17 03:46] LABS: BUN/CREATININE RATIO 15; CALCIUM 7.6 MG/DL (8.5-10.1); CARBON DIOXIDE 21 MMOL/L (21-32); CHLORIDE 108 MMOL/L (98-107); CREATININE SERUM 0.85 MG/DL (0.60-1.30); GFR ESTIMATED > 60; GLUCOSE 195 MG/DL (70-105); MAGNESIUM 1.7 MG/DL (1.8-2.4); PHOSPHORUS 3.5 MG/DL (2.3-4.7); POTASSIUM 3.7 MMOL/L (3.6-5.0); SODIUM 140 MMOL/L (135-145)
[2017-09-17] MEDS: MAGNESIUM 1 GM/100 ML IVPB 100 ML IV SCH ×3 (04:11→05:12)
[2017-09-17] MEDS: PIPERACILLIN SODIUM/TAZOBACTAM 4.5 GM in NS (IVPB) 100 ML IV SCH ×3 (05:12→21:14)
[2017-09-17] MEDS: KCL 20 MEQ TAB (K-DUR) PO SCH (05:12)
[2017-09-17] MEDS: methylPREDNISolone 40 MG/ML (Solu-MEDROL) VIAL IV SCH ×4 (05:12→18:09)
[2017-09-17] MEDS: POTASSIUM CL 10MEQ/50ML IVPB 50 ML IV SCH (05:12)
[2017-09-17] MEDS: inSUlin (REGULAR) HUMAN 1 UNIT/0.01 ML (CHARGE PER UNIT) SC SCH ×4 (05:12→18:09)
--- NOTE | 2017-09-17 05:58 | Pulmonary Progress Note ---
Subjective Time Seen by Provider: 05:56 Subjective/Events-last exam Pt is sedated on vent. Exam Exam Vital Signs Date Time Temp Pulse Resp B/P (MAP) Pulse Ox O2 Delivery O2 Flow Rate FiO2 09/17/17 05:00 104 23 149/76 (100) 96 Mechanical Ventilator 50.00 09/17/17 04:55 116 32 96 50 09/17/17 04:34 99 09/17/17 04:32 96 22 96 50 09/17/17 04:00 98 22 145/64 (91) 95 Mechanical Ventilator 50.00 09/17/17 04:00 Mechanical Ventilator 50 09/17/17 03:00 96 21 147/62 (90) 95 Mechanical Ventilator 50.00 09/17/17 02:55 95 22 95 50 09/17/17 02:00 101 20 139/63 (88) 95 Mechanical Ventilator 50.00 09/17/17 01:00 108 09/17/17 01:00 109 28 117/76 (90) 92 Mechanical Ventilator 50.00 09/17/17 00:27 99 09/17/17 00:17 106 25 94 50 09/17/17 00:00 97.4 09/17/17 00:00 Mechanical Ventilator 50 09/17/17 00:00 85 18 150/68 (95) 95 Mechanical Ventilator 50.00 09/16/17 23:00 90 21 145/64 (91) 95 Mechanical Ventilator 50.00 09/16/17 22:52 87 20 96 50 09/16/17 22:00 92 20 140/62 (88) 96 Mechanical Ventilator 50.00 09/16/17 21:00 98 22 138/61 (86) 95 Mechanical Ventilator 50.00 09/16/17 20:17 108 09/16/17 20:08 98 23 95 50 09/16/17 20:00 Mechanical Ventilator 50 09/16/17 20:00 102 25 153/65 (94) 96 Mechanical Ventilator 50.00 09/16/17 19:45 97.6 09/16/17 19:00 103 25 141/65 (90) 95 Mechanical Ventilator 50.00 09/16/17 19:00 104 09/16/17 18:36 96 21 96 50 09/16/17 18:00 99 22 136/75 (95) 93 Mechanical Ventilator 50.00 09/16/17 17:00 114 28 119/74 (89) 91 Mechanical Ventilator 50.00 09/16/17 16:29 116 32 91 50 09/16/17 16:01 Mechanical Ventilator 09/16/17 16:00 114 30 126/78 (94) 92 Mechanical Ventilator 50.00 09/16/17 16:00 Mechanical Ventilator 50 09/16/17 16:00 98.6 09/16/17 15:57 96.8 09/16/17 15:00 100 21 133/77 (95) 94 Mechanical Ventilator 50.00 09/16/17 14:51 97 23 94 50 09/16/17 14:00 103 25 126/76 (93) 94 Mechanical Ventilator 50.00 09/16/17 13:00 110 26 136/65 (88) 95 Mechanical Ventilator 50.00 09/16/17 13:00 106 09/16/17 12:53 107 26 95 50 09/16/17 12:10 135/68 09/16/17 12:00 Mechanical Ventilator 50 09/16/17 12:00 98.6 09/16/17 11:00 114 31 137/75 (95) 96 Mechanical Ventilator 50.00 09/16/17 10:03 31 94 50 09/16/17 10:00 100 29 167/95 (119) 94 Mechanical Ventilator 50.00 09/16/17 09:00 89 19 152/93 (112) 95 Mechanical Ventilator 50.00 09/16/17 08:00 Mechanical Ventilator 50 09/16/17 08:00 100 24 155/96 (115) 95 Mechanical Ventilator 50.00 09/16/17 07:00 116 09/16/17 07:00 97.8 09/16/17 07:00 121 32 166/99 (121) 92 Mechanical Ventilator 50.00 09/16/17 06:51 108 21 94 50 09/16/17 06:00 100 23 150/70 (96) 96 Mechanical Ventilator 50.00 I & O 09/17/17 07:00 Intake Total 3130 ml Output Total 1985 ml Balance 1145 ml General Appearance: Other (PT INTUBATED, SEDATED) HEENT: PERRL/EOMI, Pharynx Normal Neck: Full Range of Motion, Supple Respiratory: Decreased Breath Sounds Cardiovascular: Regular Rate, Rhythm, No Edema Capillary Refill: Less Than 3 Seconds Gastrointestinal: normal bowel sounds, soft Extremity: Normal Capillary Refill, No Pedal Edema Neurologic/Psychiatric: Other (INTUBATED) Skin: Warm/Dry Lymphatic: No Adenopathy Results Lab Laboratory Tests 09/16/17 03:10 09/17/17 03:20 Assessment/Plan Assessment/Plan Acute respiratory failure - mechanical ventilation. -Pt is currently on Diprivan and Fentanyl gtt. Currently pt is coughing and appears agitated. Will give a bolus of Fentanyl for sedation. Pneumonia with Helophilus -Pt has extensive Bilateral infiltrates. -bedside bronchoscopy this morning - Zosyn Decreased UO -Will give 1 liter IVF bolus and increase IVF to 100cc/hr after bolus UTI with Ecoli Acute Renal Failure - improved -Monitor Chronic Neutropenia I discussed with RN, RT, and family at bedside pt's current condition and plan of care. Family understands pt is getting better however still critical on vent. All questions answered. time spent with patient not including bronchoscopy is 45 min. Critical Care: Critically Ill Patient Time spent with patient (mins): 45 Advance Care discuss with: family member (s) FORTUNATO BARR DO Sep 17, 2017 05:57
[2017-09-17] MEDS ORDERED: fentaNYL INJECTION 100 MCG/2 ML AMP ONE (06:02)
[2017-09-17] MEDS ORDERED: MIDAZOLAM 5 MG/5 ML (VERSED) VIAL ONE (06:02)
--- NOTE | 2017-09-17 06:25 | Pulmonary Procedures ---
Pulmonary Procedures Date of Procedure Date of Service: Sep 17, 2017 Bronch Bronchoscopy with bronchoalveolar lavage (BAL), transbronchial washes and, brushes. Preop DX Mucous plugging, PNA Postop DX: same Complications: none After informed consent obtained and formal time out pt was sedated using Fentanyl and Versed. Bronchoscope was advanced through ET tube . An anatomical tour was undertaken down to the segmental bronchi bilaterally. No endobronchial lesions noted. From the RML a bronchoalveolar lavage (BAL), transbronchial washes. Bilateral wash was obtained. Brushes were obtained from LLL. Pt tolerated procedure well. No complications noted. Stat CXR is pending. FORTUNATO BARR DO Sep 17, 2017 06:25
[2017-09-17] MEDS ORDERED: NS (IVPB) 50 ML ONE (06:34)
[2017-09-17] MEDS ORDERED: DEXMEDETOMIDINE INJECTION 200 MCG in NS (IVPB) 50 ML IV SCH (06:45)
--- NOTE | 2017-09-17 07:45 | Diagnostic Imaging Report ---
INDICATION: Respiratory failure. EXAMINATION: Portable chest at 03:23 a.m. FINDINGS: There is an ET tube projecting over the trachea. NG tube is projecting over the stomach. Left subclavian Port-A-Cath tip projects over the SVC. There is some bilateral perihilar atelectasis. The right upper lobe infiltrate has improved from the previous day. IMPRESSION: Improved aeration of lungs with some residual perihilar atelectasis. The right upper lobe infiltrate is near completely resolved. Dictated by: Dictated on workstation # [id number]
--- NOTE | 2017-09-17 08:24 | Diagnostic Imaging Report ---
INDICATION: Post bronchoscopy. Time of exam 7:48 AM Correlation is made to prior examination from earlier the same morning. The endotracheal tube has the tip in stable position above the tirso. The nasogastric tube passes below the diaphragm has the tip at the region of the gastric body. A left subclavian central venous catheter has tip overlying the SVC. The heart is mildly enlarged. There are worsening bilateral predominately perihilar pulmonary infiltrates. There is also some patchy infiltrate in the right lung base medially. There is blurring of the left hemidiaphragm, new since earlier today, suggestive of developing left basilar infiltrate or atelectasis. No pneumothorax is seen. IMPRESSION: 1. Worsening bilateral pulmonary infiltrates when compared to examination earlier the same day. Dictated by: Dictated on workstation # [id number]
--- NOTE | 2017-09-17 08:32 | Progress Note (SOAP) ---
Subjective Date Seen by Provider: Sep 17, 2017 Time Seen by Provider: 08:20 Subjective/Events-last exam PT INTUBATED, UNABLE TO RESPOND Review of Systems PT INTUBATED AND UNABLE TO RESPOND Objective Exam Vital Signs Date Time Temp Pulse Resp B/P (MAP) Pulse Ox O2 Delivery O2 Flow Rate FiO2 09/17/17 07:54 97 30 92 50 09/17/17 06:34 Mechanical Ventilator 70.00 09/17/17 06:28 96 25 90 60 09/17/17 06:00 107 26 129/61 (83) 100 Mechanical Ventilator 50.00 09/17/17 05:00 104 23 149/76 (100) 96 Mechanical Ventilator 50.00 09/17/17 04:55 116 32 96 50 09/17/17 04:34 99 09/17/17 04:32 96 22 96 50 09/17/17 04:00 98 22 145/64 (91) 95 Mechanical Ventilator 50.00 09/17/17 04:00 Mechanical Ventilator 50 09/17/17 03:00 96 21 147/62 (90) 95 Mechanical Ventilator 50.00 09/17/17 02:55 95 22 95 50 09/17/17 02:00 101 20 139/63 (88) 95 Mechanical Ventilator 50.00 09/17/17 01:00 108 09/17/17 01:00 109 28 117/76 (90) 92 Mechanical Ventilator 50.00 09/17/17 00:27 99 09/17/17 00:17 106 25 94 50 09/17/17 00:00 97.4 09/17/17 00:00 Mechanical Ventilator 50 09/17/17 00:00 85 18 150/68 (95) 95 Mechanical Ventilator 50.00 09/16/17 23:00 90 21 145/64 (91) 95 Mechanical Ventilator 50.00 09/16/17 22:52 87 20 96 50 09/16/17 22:00 92 20 140/62 (88) 96 Mechanical Ventilator 50.00 09/16/17 21:00 98 22 138/61 (86) 95 Mechanical Ventilator 50.00 09/16/17 20:17 108 09/16/17 20:08 98 23 95 50 09/16/17 20:00 Mechanical Ventilator 50 09/16/17 20:00 102 25 153/65 (94) 96 Mechanical Ventilator 50.00 09/16/17 19:45 97.6 09/16/17 19:00 103 25 141/65 (90) 95 Mechanical Ventilator 50.00 09/16/17 19:00 104 09/16/17 18:36 96 21 96 50 09/16/17 18:00 99 22 136/75 (95) 93 Mechanical Ventilator 50.00 09/16/17 17:00 114 28 119/74 (89) 91 Mechanical Ventilator 50.00 09/16/17 16:29 116 32 91 50 09/16/17 16:01 Mechanical Ventilator 09/16/17 16:00 114 30 126/78 (94) 92 Mechanical Ventilator 50.00 09/16/17 16:00 Mechanical Ventilator 50 09/16/17 16:00 98.6 09/16/17 15:57 96.8 09/16/17 15:00 100 21 133/77 (95) 94 Mechanical Ventilator 50.00 09/16/17 14:51 97 23 94 50 09/16/17 14:00 103 25 126/76 (93) 94 Mechanical Ventilator 50.00 09/16/17 13:00 110 26 136/65 (88) 95 Mechanical Ventilator 50.00 09/16/17 13:00 106 09/16/17 12:53 107 26 95 50 09/16/17 12:10 135/68 09/16/17 12:00 Mechanical Ventilator 50 09/16/17 12:00 98.6 09/16/17 11:00 114 31 137/75 (95) 96 Mechanical Ventilator 50.00 09/16/17 10:03 31 94 50 09/16/17 10:00 100 29 167/95 (119) 94 Mechanical Ventilator 50.00 09/16/17 09:00 89 19 152/93 (112) 95 Mechanical Ventilator 50.00 I & O 09/17/17 07:00 Intake Total 3330 ml Output Total 1985 ml Balance 1345 ml Capillary Refill : Less Than 3 SecondsLess Than 3 Seconds General Appearance: Other (INTUBATED, SEDATED) Respiratory: Chest Non Tender, Other (CRACKLES AND RHONCHI, INTUBATED) Cardiovascular: Tachycardia Gastrointestinal: normal bowel sounds, soft Neurologic/Psychiatric: Other (SEDATED, INTUBATED) Results Lab Laboratory Tests 09/16/17 12:48: Glucometer 170H 09/16/17 18:24: Glucometer 196H 09/16/17 23:45: Glucometer 188H 09/17/17 03:20: White Blood Count 5.2, Red Blood Count 2.62L, Hemoglobin 8.9L, Hematocrit 27L, Mean Corpuscular Volume 102H, Mean Corpuscular Hemoglobin 34, Mean Corpuscular Hemoglobin Concent 33, Red Cell Distribution Width 14.9H, Platelet Count 165, Mean Platelet Volume 10.5H, Neutrophils (%) (Auto) 87H, Lymphocytes (%) (Auto) 5L, Monocytes (%) (Auto) 7, Eosinophils (%) (Auto) 0, Basophils (%) (Auto) 0, Neutrophils # (Auto) 4.5, Lymphocytes # (Auto) 0.3L, Monocytes # (Auto) 0.4, Eosinophils # (Auto) 0.0, Basophils # (Auto) 0.0, Blood Gas Puncture Site LEFT RADIAL, Blood Gas Patient Temperature 97.8, Arterial Blood pH 7.39, Arterial Blood Partial Pressure CO2 42, Arterial Blood Partial Pressure O2 80, Arterial Blood HCO3 25, Arterial Blood Total CO2 26.1, Arterial Blood Oxygen Saturation 97, Arterial Blood Base Excess 0.3, Jesse Test YES-POS, Blood Gas Ventilator Setting YES, Blood Gas Inspired Oxygen 50%, Sodium Level 140, Potassium Level 3.7, Chloride Level 108H, Carbon Dioxide Level 21, Anion Gap 11, Blood Urea Nitrogen 13, Creatinine 0.85, Estimat Glomerular Filtration Rate > 60, BUN/ Creatinine Ratio 15, Glucose Level 195H, Calcium Level 7.6L, Phosphorus Level 3.5, Magnesium Level 1.7L Microbiology 09/13/17 Blood Culture - Preliminary, Resulted No growth 09/15/17 Gram Stain - Final, Resulted 09/15/17 Sputum Culture - Preliminary, Resulted Usual/normal roddy isolated. 09/11/17 Urine Culture - Final, Complete Escherichia coli Assessment/Plan Assessment/Plan Assess & Plan/Chief Complaint RESPIRATORY FAILURE INFLUENZA PNEUMONIA DEHYDRATION ACUTE RENAL INSUFFICIENCY URINARY TRACT INFECTION CHRONIC DEPRESSION CHRONIC NEUTROPENIA WITH WHITE COUNT NORMAL, BUT ELEVATED FOR THIS PATIENT. INFLUENZA AND PNEUMONIA - CONTINUE WITH INTUBATED STATUS - CONTINUE WITH ANTIBIOTICS - MEDICATION ADJUSTED BY DR. BARR HAEMOPHILUS INFLUENZAE AND ECOLI AND INFLUENZA A - CLOSELY MONITOR SYMPTOMS. MONITOR SERIAL CHEST XRAYS, MAT PROTOCOL. DEHYDRATION - IV FLUIDS FOR HYDRATION ACUTE RENAL INSUFFICIENCY - IV FLUIDS, MONITOR RENAL FUNCTION WITH SERIAL LABS. URINARY TRACT INFECTION - ON IV ANTIBIOTICS. CHRONIC DEPRESSION - HOLDING ORAL MEDICATIONS NEUTROPENIA - RESOLVED AFTER GRANIX. SHE WILL NEED A FEW WEEKS A CARE HOME FOR SKILLED THERAPY FOR RECOVERY PRIOR TO GOING HOME. FAMILY H INDICATED THAT THEY WOULD PREFER [facility] ON DISCHARGE. Clinical Quality Measures DVT/VTE Risk/Contraindication: Risk Factor Score Per Nursin RFS Level Per Nursing on Admit: 4+=Very High ORTEGA PIERRE MD Sep 17, 2017 08:32
[2017-09-17] MEDS: PANTOPRAZOLE 40 MG/10 ML (PROTONIX) VIAL IV SCH (09:11)
[2017-09-17] MEDS: OLANZapine 2.5 MG (ZyPREXA) TAB PO SCH (09:12)
[2017-09-17] MEDS: LEVOTHYROXINE 75 MCG (LEVOTHROID) TABLET PO SCH (09:12)
[2017-09-17] MEDS: LETROZOLE 2.5 MG (FEMARA) TAB PO SCH (09:12)
[2017-09-17] MEDS: FLUoxetine HCL 20 MG (PROzac) CAP PO SCH (09:12)
[2017-09-17] MEDS: MENTHOL/ZINC OXIDE (CALMOSEPTINE) 113 GM TUBE TOP SCH ×2 (09:17→21:07)
[2017-09-17] MEDS: ACYCLOVIR 400 MG TABLET (ZOVIRAX) PO SCH (09:18)
[2017-09-17] MEDS: DEXMEDETOMIDINE INJECTION 1,000 MCG in NS (IVPB) 240 ML IV SCH (10:42)
--- NOTE | 2017-09-17 14:20 | Physical Therapy Progress Note ---
Therapy Progress Note Patient still intubated and sedated. Will check back tomorrow to see if patient status has improved. FALLON ANDERSEN PT Sep 17, 2017 14:20
[2017-09-17] MEDS: fentaNYL INJECTION 1,250 MCG in NS (IVPB) 250 ML IV SCH (15:08)
[2017-09-18] VITALS (25 sets, daily range): BP systolic 99–149; BP diastolic 49–110
[2017-09-18] MEDS: methylPREDNISolone 40 MG/ML (Solu-MEDROL) VIAL IV SCH ×5 (00:01→23:04)
[2017-09-18] MEDS: inSUlin (REGULAR) HUMAN 1 UNIT/0.01 ML (CHARGE PER UNIT) SC SCH ×5 (00:05→23:10)
[2017-09-18] MEDS: RT-ALBUTEROL/IPRATROPIUM 3 ML (DUONEB) VIAL INH SCH ×9 (00:06→22:07)
[2017-09-18] MEDS: DEXMEDETOMIDINE INJECTION 1,000 MCG in NS (IVPB) 240 ML IV SCH (01:19)
[2017-09-18] MEDS: morphine INJ 4 MG/ML 1 ML (VIAL/SYRINGE) IVP PRN ×4 (02:06→20:40)
[2017-09-18 03:26] LABS: ABG BASE EXCESS 1.3 MMOL/L (-2.5-2.5); ABG OXYGEN SATURATION 97 % (94-100); ABG PCO2 37 MMHG (35-45); ABG PH 7.45 (7.37-7.43); ABG PO2 76 MMHG (79-93); ABG TCO2 26.2 MMOL/L (21.0-31.0)
[2017-09-18 03:29] LABS: ALLENS TEST YES-POS; INSPIRED O2 35% FIO2; PATIENT TEMP 97.6; VENTILATOR YES
[2017-09-18 03:34] LABS: BASOPHILS % (AUTO) 0 % (0-10); EOSINOPHILS % (AUTO) 0 % (0-10); HEMATOCRIT 31 % (35-52); HEMOGLOBIN 10.4 G/DL (11.5-16.0); LYMPHOCYTES # (AUTO) 0.2 X 10^3 (1.0-4.0); LYMPHOCYTES % (AUTO) 5 % (12-44); MEAN CORPUSCULAR HEMOGLOBIN 33 PG (25-34); MEAN CORPUSCULAR HGB CONC 33 G/DL (32-36); MEAN CORPUSCULAR VOLUME 101 FL (80-99); MEAN PLATELET VOLUME 10.8 FL (7.4-10.4); MONOCYTES # (AUTO) 0.3 X 10^3 (0.0-1.0); MONOCYTES % (AUTO) 6 % (0-12); NEUTROPHILS # (AUTO) 4.1 X 10^3 (1.8-7.8); NEUTROPHILS % (AUTO) 89 % (42-75); PLATELET COUNT 162 10^3/uL (130-400); RED BLOOD COUNT 3.11 10^6/uL (4.35-5.85); RED CELL DISTRIBUTION WIDTH 14.4 % (10.0-14.5); WHITE BLOOD COUNT 4.6 10^3/uL (4.3-11.0)
[2017-09-18 04:03] LABS: CALCIUM 7.8 MG/DL (8.5-10.1); CREATININE SERUM 1.03 MG/DL (0.60-1.30); MAGNESIUM 1.6 MG/DL (1.8-2.4); PHOSPHORUS 3.5 MG/DL (2.3-4.7); POTASSIUM 3.4 MMOL/L (3.6-5.0)
[2017-09-18] MEDS: MAGNESIUM 1 GM/100 ML IVPB 100 ML IV SCH ×3 (04:35→06:00)
[2017-09-18] MEDS: POTASSIUM CL 10MEQ/50ML IVPB 50 ML IV SCH ×6 (04:36→17:25)
--- NOTE | 2017-09-18 05:59 | Pulmonary Progress Note ---
Subjective Time Seen by Provider: 05:59 Subjective/Events-last exam Pt appears much improved. Exam Exam Vital Signs Date Time Temp Pulse Resp B/P (MAP) Pulse Ox O2 Delivery O2 Flow Rate FiO2 09/18/17 04:05 105 27 94 35 09/18/17 04:00 97.6 Mechanical Ventilator 35.00 09/18/17 04:00 107 33 95 09/18/17 04:00 Mechanical Ventilator 35 09/18/17 03:00 109 24 141/91 (108) 95 Mechanical Ventilator 35.00 09/18/17 02:58 106 28 95 35 09/18/17 02:00 130 37 119/77 (91) 93 Mechanical Ventilator 35.00 09/18/17 01:40 120 28 94 35 09/18/17 01:00 113 25 119/81 (94) 95 Mechanical Ventilator 35.00 09/18/17 01:00 114 09/18/17 00:06 99 24 95 35 09/18/17 00:00 Mechanical Ventilator 35 09/18/17 00:00 97.3 Mechanical Ventilator 35.00 09/18/17 00:00 98 24 121/82 (95) 95 Mechanical Ventilator 35.00 09/17/17 23:00 92 25 138/80 (99) 94 Mechanical Ventilator 35.00 09/17/17 22:17 77 25 96 35 09/17/17 22:00 82 25 168/93 (118) 96 Mechanical Ventilator 35.00 09/17/17 21:00 84 24 164/92 (116) 95 Mechanical Ventilator 35.00 09/17/17 20:15 90 Vapotherm 20.00 45 09/17/17 20:11 79 20 96 35 09/17/17 20:00 78 19 176/102 (126) 97 Mechanical Ventilator 35.00 09/17/17 20:00 Mechanical Ventilator 35 09/17/17 20:00 65.6 09/17/17 19:00 80 09/17/17 19:00 84 23 171/96 (121) 95 Mechanical Ventilator 35.00 09/17/17 18:16 95 35 94 35 09/17/17 18:00 98 32 163/89 (113) 90 Mechanical Ventilator 35.00 09/17/17 17:13 105 31 174/97 (122) 94 Mechanical Ventilator 60.00 09/17/17 16:13 77 20 97 35 09/17/17 16:00 Mechanical Ventilator 35 09/17/17 14:21 81 23 96 35 09/17/17 13:00 90 09/17/17 12:00 98 28 137/88 (104) 100 Mechanical Ventilator 60.00 09/17/17 12:00 Mechanical Ventilator 35 09/17/17 11:58 113 55 100 40 09/17/17 11:00 92 25 181/88 (119) 100 Mechanical Ventilator 60.00 09/17/17 10:05 93 26 100 40 09/17/17 10:00 90 25 173/87 (115) 100 Mechanical Ventilator 60.00 09/17/17 09:37 98.5 09/17/17 09:19 98 93 50 09/17/17 09:00 92 26 176/84 (114) 98 Mechanical Ventilator 60.00 09/17/17 08:00 Mechanical Ventilator 50 09/17/17 08:00 98 28 160/67 (98) 95 Mechanical Ventilator 60.00 09/17/17 07:54 97 30 92 50 09/17/17 07:00 111 24 128/58 (81) 98 Mechanical Ventilator 60.00 09/17/17 07:00 111 09/17/17 06:34 Mechanical Ventilator 70.00 09/17/17 06:28 96 25 90 60 09/17/17 06:00 107 26 129/61 (83) 100 Mechanical Ventilator 50.00 I & O 09/18/17 07:00 Intake Total 452 ml Output Total 3050 ml Balance -2598 ml General Appearance: Mild Distress HEENT: PERRL/EOMI, Pharynx Normal Neck: Full Range of Motion, Supple Respiratory: Decreased Breath Sounds Cardiovascular: Regular Rate, Rhythm, No Edema Capillary Refill: Less Than 3 Seconds Gastrointestinal: normal bowel sounds, soft Extremity: Normal Capillary Refill, No Pedal Edema Neurologic/Psychiatric: Other (INTUBATED) Skin: Warm/Dry Lymphatic: No Adenopathy Results Lab Laboratory Tests 09/17/17 03:20 09/18/17 03:00 Assessment/Plan Assessment/Plan Acute respiratory failure - mechanical ventilation. -Will try to wean ventilator today. -Pt is currently only on Precedex. She is following all commands. Pneumonia with Helophilus -Pt has extensive Bilateral infiltrates. -bedside bronchoscopy this morning - Zosyn UTI with Ecoli Acute Renal Failure - improved -Monitor Chronic Neutropenia Critical Care: Critically Ill Patient FORTUNATO BARR DO Sep 18, 2017 05:59
[2017-09-18] MEDS: KCL 20 MEQ TAB (K-DUR) PO SCH (06:00)
[2017-09-18] MEDS: PIPERACILLIN SODIUM/TAZOBACTAM 4.5 GM in NS (IVPB) 100 ML IV SCH ×3 (06:24→23:04)
[2017-09-18] MEDS: LEVOTHYROXINE 75 MCG (LEVOTHROID) TABLET PO SCH (06:32)
[2017-09-18] MEDS: D5W 1000 ML IV SOLUTION 1,000 ML IV SCH (07:23)
--- NOTE | 2017-09-18 07:54 | Diagnostic Imaging Report ---
INDICATION: Shortness of breath. COMPARISON: 09/17/2017. FINDINGS: ET tube remains in good position as does left Port-A-Cath and NG tube. Lungs show moderate aeration. There has been moderate clearing of the bilateral alveolar infiltrates. Mild perihilar infiltrates remain present. There does continue to be some mild basilar atelectasis bilaterally which is causing some obscuration of left hemidiaphragm. IMPRESSION: 1. Some improvement in aeration though there continues to be basilar atelectasis more severe on the left. 2. There has been significant decrease in upper lobe alveolar infiltrate since previous exam. Dictated by: Dictated on workstation # [id number]
--- NOTE | 2017-09-18 08:24 | Occ Therapy Progress Note ---
Therapy Progress Note Pt. continues on mechanical ventilation. Possible weaning today. Will continue to monitor and evaluate pt. properly after she has been weaned off ventilator. [id number] LAUREN BOWEN OT Sep 18, 2017 08:24
--- NOTE | 2017-09-18 08:34 | Progress Note (SOAP) ---
Subjective Date Seen by Provider: Sep 18, 2017 Time Seen by Provider: 08:20 Subjective/Events-last exam PT INTUBATED, MOVED FACE BUT DID NOT OPEN EYES WHEN I TALKED TO PT THIS MORNING Review of Systems PT INTUBATED AND UNABLE TO RESPOND Objective Exam Vital Signs Date Time Temp Pulse Resp B/P (MAP) Pulse Ox O2 Delivery O2 Flow Rate FiO2 09/18/17 08:17 98 35 09/18/17 07:58 98 27 95 35 09/18/17 07:00 103 09/18/17 06:16 104 28 95 35 09/18/17 06:00 99 22 130/89 (103) 95 Mechanical Ventilator 35.00 09/18/17 05:00 104 22 139/88 (105) 95 Mechanical Ventilator 35.00 09/18/17 04:05 105 27 94 35 09/18/17 04:00 97.6 Mechanical Ventilator 35.00 09/18/17 04:00 107 33 95 09/18/17 04:00 Mechanical Ventilator 35 09/18/17 04:00 108 24 137/96 (110) 95 Mechanical Ventilator 35.00 09/18/17 03:00 109 24 141/91 (108) 95 Mechanical Ventilator 35.00 09/18/17 02:58 106 28 95 35 09/18/17 02:00 130 37 119/77 (91) 93 Mechanical Ventilator 35.00 09/18/17 01:40 120 28 94 35 09/18/17 01:00 113 25 119/81 (94) 95 Mechanical Ventilator 35.00 09/18/17 01:00 114 09/18/17 00:06 99 24 95 35 09/18/17 00:00 Mechanical Ventilator 35 09/18/17 00:00 97.3 Mechanical Ventilator 35.00 09/18/17 00:00 98 24 121/82 (95) 95 Mechanical Ventilator 35.00 09/17/17 23:00 92 25 138/80 (99) 94 Mechanical Ventilator 35.00 09/17/17 22:17 77 25 96 35 09/17/17 22:00 82 25 168/93 (118) 96 Mechanical Ventilator 35.00 09/17/17 21:00 84 24 164/92 (116) 95 Mechanical Ventilator 35.00 09/17/17 20:15 90 Vapotherm 20.00 45 09/17/17 20:11 79 20 96 35 09/17/17 20:00 78 19 176/102 (126) 97 Mechanical Ventilator 35.00 09/17/17 20:00 Mechanical Ventilator 35 09/17/17 20:00 65.6 09/17/17 19:00 80 09/17/17 19:00 84 23 171/96 (121) 95 Mechanical Ventilator 35.00 09/17/17 18:16 95 35 94 35 09/17/17 18:00 98 32 163/89 (113) 90 Mechanical Ventilator 35.00 09/17/17 17:13 105 31 174/97 (122) 94 Mechanical Ventilator 60.00 09/17/17 16:13 77 20 97 35 09/17/17 16:00 Mechanical Ventilator 35 09/17/17 14:21 81 23 96 35 09/17/17 13:00 90 09/17/17 12:00 98 28 137/88 (104) 100 Mechanical Ventilator 60.00 09/17/17 12:00 Mechanical Ventilator 35 09/17/17 11:58 113 55 100 40 09/17/17 11:00 92 25 181/88 (119) 100 Mechanical Ventilator 60.00 09/17/17 10:05 93 26 100 40 09/17/17 10:00 90 25 173/87 (115) 100 Mechanical Ventilator 60.00 09/17/17 09:37 98.5 09/17/17 09:19 98 93 50 09/17/17 09:00 92 26 176/84 (114) 98 Mechanical Ventilator 60.00 I & O 09/18/17 07:00 Intake Total 452 ml Output Total 3740 ml Balance -3288 ml Capillary Refill : Less Than 3 SecondsLess Than 3 Seconds General Appearance: Other (INTUBATED, SEDATED) Respiratory: Chest Non Tender, Other (SLIGHTLY IMPROVED AIR MOVEMENT) Cardiovascular: Tachycardia Gastrointestinal: normal bowel sounds, soft Neurologic/Psychiatric: Other (INTUBATED, SEDATED) Results Lab Laboratory Tests 09/17/17 11:30: Glucometer 164H 09/17/17 17:53: Glucometer 165H 09/18/17 00:00: Glucometer 184H 09/18/17 03:00: White Blood Count 4.6, Red Blood Count 3.11L, Hemoglobin 10.4L, Hematocrit 31L, Mean Corpuscular Volume 101H, Mean Corpuscular Hemoglobin 33, Mean Corpuscular Hemoglobin Concent 33, Red Cell Distribution Width 14.4, Platelet Count 162, Mean Platelet Volume 10.8H, Neutrophils (%) (Auto) 89H, Lymphocytes (%) (Auto) 5L, Monocytes (%) (Auto) 6, Eosinophils (%) (Auto) 0, Basophils (%) (Auto) 0, Neutrophils # (Auto) 4.1, Lymphocytes # (Auto) 0.2L, Monocytes # (Auto) 0.3, Eosinophils # (Auto) 0.0, Basophils # (Auto) 0.0, Sodium Level 140, Potassium Level 3.4L, Chloride Level 105, Carbon Dioxide Level 19L, Anion Gap 16H, Blood Urea Nitrogen 16, Creatinine 1.03, Estimat Glomerular Filtration Rate 53, BUN/ Creatinine Ratio 16, Glucose Level 231H, Calcium Level 7.8L, Phosphorus Level 3.5, Magnesium Level 1.6L 09/18/17 03:14: Blood Gas Puncture Site R RAD, Blood Gas Patient Temperature 97.6, Arterial Blood pH 7.45H, Arterial Blood Partial Pressure CO2 37, Arterial Blood Partial Pressure O2 76L, Arterial Blood HCO3 25, Arterial Blood Total CO2 26.2, Arterial Blood Oxygen Saturation 97, Arterial Blood Base Excess 1.3, Jesse Test YES-POS, Blood Gas Ventilator Setting YES, Blood Gas Inspired Oxygen 35% FIO2 Microbiology 09/13/17 Blood Culture - Preliminary, Resulted No growth 09/17/17 Gram Stain - Final, Resulted 09/17/17 Bronchial Culture - Preliminary, Resulted Usual/normal roddy isolated. 09/17/17 Fungal Culture, Resulted Pending 09/11/17 Urine Culture - Final, Complete Escherichia coli Assessment/Plan Assessment/Plan Assess & Plan/Chief Complaint RESPIRATORY FAILURE INFLUENZA PNEUMONIA DEHYDRATION ACUTE RENAL INSUFFICIENCY URINARY TRACT INFECTION CHRONIC DEPRESSION CHRONIC NEUTROPENIA WITH WHITE COUNT NORMAL, BUT ELEVATED FOR THIS PATIENT. INFLUENZA AND PNEUMONIA - CONTINUE WITH INTUBATED STATUS - BRONCHOSCOPY YESTERDAY, WEANING ABLE PER DR. BARR - CHEST XRAY IMPROVED - CONTINUE WITH ANTIBIOTICS - MEDICATION ADJUSTED BY DR. BARR HAEMOPHILUS INFLUENZAE AND ECOLI AND INFLUENZA A - CLOSELY MONITOR SYMPTOMS. MONITOR SERIAL CHEST XRAYS, MAT PROTOCOL. DEHYDRATION - IV FLUIDS FOR HYDRATION ACUTE RENAL INSUFFICIENCY - IV FLUIDS, MONITOR RENAL FUNCTION WITH SERIAL LABS. URINARY TRACT INFECTION - ON IV ANTIBIOTICS. CHRONIC DEPRESSION - HOLDING ORAL MEDICATIONS NEUTROPENIA - RESOLVED AFTER GRANIX. PT IS ACUTELY ILL AND I EXPECT THAT SHE WILL NEED TO BE IN THE HOSPITAL AT LEAST 3-4 MIDNIGHTS SHE HAS SIGNIFICANT ILLNESS AND WILL NEED IV ANTIBIOTICS , HYDRATION, AND PHYSICAL THERAPY. I SUSPECT THAT SHE WILL NEED A FEW WEEKS A HALFWAY FOR SKILLED THERAPY FOR RECOVERY PRIOR TO GOING HOME. FAMILY H INDICATED THAT THEY WOULD PREFER [facility] ON DISCHARGE. Clinical Quality Measures DVT/VTE Risk/Contraindication: Risk Factor Score Per Nursin RFS Level Per Nursing on Admit: 4+=Very High ORTEGA PIERRE MD Sep 18, 2017 08:34
--- NOTE | 2017-09-18 10:21 | Physical Therapy Progress Note ---
Therapy Progress Note Patient continues to requires mechanical ventilator with possible weaning today. PT will continue to monitor patient medical status. HARSHA JACKSON PT Sep 18, 2017 10:21
[2017-09-18 10:29] LABS: ABG BASE EXCESS 2.4 MMOL/L (-2.5-2.5); ABG OXYGEN SATURATION 96 % (94-100); ABG PCO2 39 MMHG (35-45); ABG PH 7.44 (7.37-7.43); ABG PO2 69 MMHG (79-93); ABG TCO2 27.6 MMOL/L (21.0-31.0)
[2017-09-18 10:30] LABS: ALLENS TEST YES-POS; INSPIRED O2 35%; VENTILATOR YES
[2017-09-18 10:31] LABS: PATIENT TEMP 96.7
[2017-09-18] MEDS: PANTOPRAZOLE 40 MG/10 ML (PROTONIX) VIAL IV SCH (10:59)
[2017-09-18] MEDS: FLUoxetine HCL 20 MG (PROzac) CAP PO SCH (10:59)
[2017-09-18] MEDS: ACYCLOVIR 400 MG TABLET (ZOVIRAX) PO SCH (11:00)
[2017-09-18] MEDS: MENTHOL/ZINC OXIDE (CALMOSEPTINE) 113 GM TUBE TOP SCH ×2 (11:00→21:18)
[2017-09-18] MEDS: OLANZapine 2.5 MG (ZyPREXA) TAB PO SCH (11:00)
[2017-09-18] MEDS: LETROZOLE 2.5 MG (FEMARA) TAB PO SCH (11:01)
--- NOTE | 2017-09-18 14:31 | Physical Therapy Evaluation ---
PT Evaluation-General Medical Diagnosis Admission Date Sep 11, 2017 at 12:00 Medical Diagnosis: pneumonia/leukopenia Onset Date: Sep 11, 2017 Therapy Diagnosis Therapy Diagnosis: generalized weakness/debility Height/Weight Height (Feet): 5 Height (Inches): 0.00 Weight (Pounds): 175 Weight (Ounces): 6.4 Precautions Precautions/Isolations: Fall Prevention, Standard Precautions Weight Bear Status Right Lower Extremity: Right Full Weight Bearing Left Lower Extremity: Left Full Weight Bearing Referral Physician: Nakita Reason for Referral: Evaluation/Treatment Medical History Additional Medical History multiple melanoma Current History ED with weakness, cough and SOB x 5 days Reviewed History: Yes Social History Home: Single Level Current Living Status: Spouse Prior/Core FIM Prior Level of Function Functional [place] Measure 0=Not Assessed/NA 4=Minimal Assistance 1=Total Assistance 5=Supervision or Setup 2=Maximal Assistance 6=Modified [place] 3=Moderate Assistance 7=Complete [place] Bed Mobility: 7 Transfers (B,C,W/C) (FIM): 7 Gait: 7 PT Evaluation-Current Subjective Patient agrees to PT. She was extubated on this date. Pain Numeric Pain Scale: 0-No Pain Location: No Pain Reported Objective Patient Orientation: Normal For Age Problem Solving: Fair Attachments: SCD's, Oxygen (vapotherm), Sauer Catheter, IV ROM/Strength ROM Lower Extremities bilateral LE WNL Strength Lower Extremities 2/5 grossly bilaterally Integumentary/Posture Integumentary refer to nursing notes Bladder Incontinence: Sauer Cath Posture slightly kyphotic due to weakness Neuromuscular (Tone, Coordination, Reflexes) diminished coordination due to weakness Sensory Vision: Functional Hearing: Functional Sensation Right Lower Extremit: Intact Sensation Left Lower Extremity: Intact Transfers Functional [place] Measure 0=Not Assessed/NA 4=Minimal Assistance 1=Total Assistance 5=Supervision or Setup 2=Maximal Assistance 6=Modified [place] 3=Moderate Assistance 7=Complete [place] Transfers (B, C, W/C) (FIM): 1 Scootin Rollin Supine to/from Sit: 1 Patient dependent assist with mobility. Patient sat EOB x 8 minutes CGA. Gait Anticipated Mode of Locomotion: Walk Balance Sitting Static: Fair Sitting Dynamic: Poor Assessment/Needs 72 y.o. female, will benefit from skilled PT to address functional strength and mobility to improve current LOF. Patient presents with extreme weakness due to patient has been intubated for several days. Rehab Potential: Guarded PT Short Term Goals Short Term Goals Time Frame: Oct 03, 2017 Transfers (B,C,W/C) (FIM): 4 Gait (FIM): 2 Distance (FIM): 3=909-90 ft Gait Distance Comment: 100' Gait Level of Assist: 4 Gait Assistive Device: FWW PT [facility] Goals Fire Prevention Officer Goals PT [facility] Goals Time Frame: Oct 18, 2017 Transfers (B,C,W/C) (FIM): 6 Gait (FIM): 6 Gait distance (FIM): 3=150 ft Distance: 300' Gait Level of Assist: 6 Gait Assistive Device: None, FWW PT Plan Problem List Problem List: Activity Tolerance, Functional Strength, Safety, Balance, Gait, Transfer, Bed Mobility Treatment/Plan Treatment Plan: Continue Plan of Care Treatment Plan: Bed Mobility, Education, Functional Activity Sanchez, Functional Strength, Gait, Safety, Therapeutic Exercise, Transfers Treatment Duration: Oct 18, 2017 Frequency: 6 times per week Estimated Hrs Per Day: .5 hour per day Patient and/or Family Agrees t: Yes Time/GCodes Time In: 1355 Time Out: 1420 Total Billed Treatment Time: 25 [facility] PT Sep 18, 2017 14:31
--- NOTE | 2017-09-18 14:49 | ST Dysphagia Evaluation ---
Speech Evaluation-General Medical Diagnosis pneumonia/leukopenia Onset Date: Sep 11, 2017 Therapy Diagnosis Therapy Diagnosis: Oropharyngeal Swallow Grossly WNL Precautions Precautions/Isolations: Fall Prevention, Standard Precautions Referral Referring Physician: Dr. Edmar Mace Reason for Referral: Evaluation/Treatment Clinical Bedside Swallowing Evaluation Medical History Current History The patient was recently admitted with influenza type A and pneumonia. Reviewed History: Yes Social History Current Living Status: Spouse Speech PLF/Current-Dysphagia Prior Level of Function The patient stated she consumed a regular diet with thin liquids prior to hospitalization without any difficulties or signs/symptoms of aspiration or laryngeal penetration. Subjective The patient was seated upright in bed, receiving supplemental oxygen via nasal cannula (humidified air). The patient greeted the clinician appropriately and was agreeable to participation in the dysphagia evaluation. To note, the patient appears significantly weak and fatigued. Cognitive Status Patient Orientation: Person, Place Oral Motor Skills Dentition: Natural Ability to Follow Directions: Good The patient was NPO pending the results of the swallowing evaluation. Oral Expression Ability: No Impairment Voice Voice Phonatory-Based Quality: Breathy, Weak Voice Pitch: Normal Voice Loudness: Moderately Soft/Quiet Face Facial Symmetry: Symmetrical Oral-Facial Assessment Oral-Facial Dentition: Normal Labial Seal Description: Weak Smile: Normal Puff Cheeks: Reduced Strength (Bilaterally.) Lingual Protrusion: Normal Lingual ROM: Normal Lingual Strength: Abnormal (Reduced strength, bilaterally.) Pharynx Velopharyngeal Move.: Normal Volitional Dry Swallow: Yes Dysphagia Evaluation Consistencies Presented: Regular, Thin Liquid, Pureed - Minimally increased mastication time was noted with the cracker. The cracker was cleared by the oral cavity with a subsequent drink of thin liquid. - No pharyngeal impairments were noted throughout the evaluation. The patient did not report odynophagia upon swallowing. - No signs/symptoms of aspiration or laryngeal penetration were visualized with thin liquid, puree, or solid consistencies tested. Dietary Recommendations: Regular Liquid Recommendations: Thin Swallowing Precautions: Alternate Liquids/Solids, Small Bites and Sips, Sitting Upright 90 Degrees Dysphagia Evaluation Summary The patient demonstrated an oropharyngeal swallow grossly within normal limits. Speech Production Support Manager Goals Production Support Manager Goals 1. The patient will tolerate a diet of the least restrictive consistency without signs/symptoms of aspiration or laryngeal penetration. Time Frame: Three Days Speech-Plan Treatment Plan Speech Therapy Treatment Plan: Continue Plan of Care Continue skilled speech pathology to target swallowing safety. Treatment Duration: Sep 22, 2017 Frequency: 3 times per week Estimated Hrs Per Day: .25 hour per day Rehab Potential: Guarded Safety Risks/Education Teaching Recipient: Patient Teaching Methods: Discussion Response to Teaching: Verbalize Understanding Education Topics Provided: Results, Recommendations, Plan of Care (Also shared with RN) Time Speech Therapy Time In: 14:30 Speech Therapy Time Out: 14:45 Total Billed Time: 15 Billed Treatment Time 1, YESENIA CALDERON Sep 18, 2017 14:49
[2017-09-18] MEDS: fentaNYL INJECTION 1,250 MCG in NS (IVPB) 250 ML IV SCH (15:08)
[2017-09-18] MEDS ORDERED: FUROSEMIDE 40 MG/4 ML INJ (LASIX) IVP SCH (16:00)
[2017-09-18] MEDS: HALOPERIDOL 5 MG/ML (HALDOL) AMP IV PRN (19:52)
[2017-09-18] MEDS: oxyCODONE/APAP 5/325MG (PERCOCET 5) TABLET PO PRN (20:12)
[2017-09-18] MEDS ORDERED: LORazepam INJ 2 MG/ML (ATIVAN) VIAL ONE (20:41)
[2017-09-18] MEDS ORDERED: LORazepam INJ 2 MG/ML (ATIVAN) VIAL IVP ONE (20:45)
[2017-09-19] VITALS (31 sets, daily range): BP systolic 97–147; BP diastolic 53–111
[2017-09-19] MEDS: RT-ALBUTEROL/IPRATROPIUM 3 ML (DUONEB) VIAL INH SCH ×6 (01:53→22:02)
[2017-09-19] MEDS: morphine INJ 4 MG/ML 1 ML (VIAL/SYRINGE) IVP PRN ×3 (02:47→17:43)
[2017-09-19 03:11] LABS: BASOPHILS % (AUTO) 1 % (0-10); EOSINOPHILS % (AUTO) 0 % (0-10); HEMATOCRIT 32 % (35-52); HEMOGLOBIN 10.5 G/DL (11.5-16.0); LYMPHOCYTES # (AUTO) 0.3 X 10^3 (1.0-4.0); LYMPHOCYTES % (AUTO) 5 % (12-44); MEAN CORPUSCULAR HEMOGLOBIN 34 PG (25-34); MEAN CORPUSCULAR HGB CONC 33 G/DL (32-36); MEAN CORPUSCULAR VOLUME 102 FL (80-99); MEAN PLATELET VOLUME 10.3 FL (7.4-10.4); MONOCYTES # (AUTO) 0.3 X 10^3 (0.0-1.0); MONOCYTES % (AUTO) 5 % (0-12); NEUTROPHILS # (AUTO) 5.2 X 10^3 (1.8-7.8); NEUTROPHILS % (AUTO) 89 % (42-75); PLATELET COUNT 171 10^3/uL (130-400); RED BLOOD COUNT 3.13 10^6/uL (4.35-5.85); RED CELL DISTRIBUTION WIDTH 14.6 % (10.0-14.5); WHITE BLOOD COUNT 5.8 10^3/uL (4.3-11.0)
[2017-09-19 03:15] LABS: ABG BASE EXCESS 8.6 MMOL/L (-2.5-2.5); ABG OXYGEN SATURATION 98 % (94-100); ABG PCO2 50 MMHG (35-45); ABG PH 7.44 (7.37-7.43); ABG PO2 93 MMHG (79-93); ABG TCO2 34.7 MMOL/L (21.0-31.0)
[2017-09-19 03:16] LABS: ALLENS TEST YES-POS; INSPIRED O2 40% BIPAP; VENTILATOR YES
[2017-09-19 03:30] LABS: CALCIUM 7.8 MG/DL (8.5-10.1); CREATININE SERUM 1.11 MG/DL (0.60-1.30); MAGNESIUM 1.9 MG/DL (1.8-2.4); PHOSPHORUS 4.1 MG/DL (2.3-4.7); POTASSIUM 4.7 MMOL/L (3.6-5.0)
[2017-09-19] MEDS: POTASSIUM CL 10MEQ/50ML IVPB 50 ML IV SCH (04:17)
[2017-09-19] MEDS: KCL 20 MEQ TAB (K-DUR) PO SCH (04:17)
[2017-09-19] MEDS: MAGNESIUM 1 GM/100 ML IVPB 100 ML IV SCH (04:17)
--- NOTE | 2017-09-19 04:40 | Pulmonary Progress Note ---
Subjective Time Seen by Provider: 04:40 Subjective/Events-last exam Pt is requiring BiPAP and has been confused through the night. Exam Exam Vital Signs Date Time Temp Pulse Resp B/P (MAP) Pulse Ox O2 Delivery O2 Flow Rate FiO2 09/19/17 04:00 112 38 128/71 (90) 95 NIV Bilevel 50.00 09/19/17 04:00 NIV Bilevel 50 09/19/17 03:59 113 24 94 40.00 09/19/17 03:00 112 23 112/70 (84) 95 NIV Bilevel 50.00 09/19/17 02:00 110 22 111/56 (74) 96 NIV Bilevel 50.00 09/19/17 01:53 112 26 98 50.00 09/19/17 01:00 112 09/19/17 01:00 114 23 107/58 (74) 97 NIV Bilevel 50.00 09/19/17 00:16 115 27 96 50.00 09/19/17 00:08 NIV Bilevel 50 09/19/17 00:00 97.7 09/19/17 00:00 116 34 105/53 (70) 93 NIV Bilevel 50.00 09/18/17 23:00 116 25 102/49 (66) 97 NIV Bilevel 50.00 09/18/17 22:07 111 24 97 50.00 09/18/17 22:00 106 23 99/66 (77) 98 Vapotherm 50.00 30.00 09/18/17 21:00 113 26 110/58 (75) 97 Vapotherm 50.00 30.00 09/18/17 20:00 113 21 106/87 (93) 92 Vapotherm 50.00 30.00 09/18/17 20:00 Vapotherm 30.00 50 09/18/17 19:40 99.1 118 24 124/71 (88) 95 Vapotherm 50.00 30.00 09/18/17 19:00 117 09/18/17 18:34 95 Vapotherm 30.00 50 09/18/17 18:00 112 23 115/68 (84) 99 Vapotherm 50.00 30.00 09/18/17 17:00 113 20 113/89 (97) 92 Vapotherm 50.00 30.00 09/18/17 16:00 Vapotherm 30.00 50 09/18/17 16:00 98.4 Vapotherm 50.00 30.00 09/18/17 16:00 108 24 136/86 (103) 95 High Flow N/C 5.00 09/18/17 15:00 Vapotherm 50.00 30.00 09/18/17 15:00 111 26 129/70 (89) 92 High Flow N/C 5.00 09/18/17 14:58 111 28 30.00 09/18/17 14:00 112 25 104/96 (99) 93 High Flow N/C 5.00 09/18/17 13:54 High Flow N/C 5.00 09/18/17 13:00 106 24 118/95 (103) 94 High Flow N/C 5.00 09/18/17 13:00 101 09/18/17 12:00 97.1 09/18/17 12:00 Vapotherm 20.00 50 09/18/17 12:00 107 19 125/93 (104) 91 High Flow N/C 5.00 09/18/17 11:25 High Flow N/C 5.00 09/18/17 11:00 104 24 126/103 (111) 93 Mechanical Ventilator 35.00 09/18/17 10:25 91 23 95 35 09/18/17 10:00 89 24 140/107 (118) 96 Mechanical Ventilator 35.00 09/18/17 09:00 94 24 149/110 (123) 95 Mechanical Ventilator 35.00 09/18/17 08:17 98 35 09/18/17 08:00 Mechanical Ventilator 35 09/18/17 08:00 98 27 140/87 (104) 94 Mechanical Ventilator 35.00 09/18/17 07:58 98 27 95 35 09/18/17 07:00 103 09/18/17 07:00 103 27 138/83 (101) 95 Mechanical Ventilator 35.00 09/18/17 06:16 104 28 95 35 09/18/17 06:00 99 22 130/89 (103) 95 Mechanical Ventilator 35.00 09/18/17 05:00 104 22 139/88 (105) 95 Mechanical Ventilator 35.00 I & O 09/19/17 07:00 Intake Total 700 ml Output Total 5425 ml Balance -4725 ml General Appearance: Mild Distress HEENT: PERRL/EOMI, Pharynx Normal Neck: Full Range of Motion, Supple Respiratory: Decreased Breath Sounds Cardiovascular: Regular Rate, Rhythm, No Edema Capillary Refill: Less Than 3 Seconds Gastrointestinal: normal bowel sounds, soft Extremity: Normal Capillary Refill, No Pedal Edema Neurologic/Psychiatric: Other (INTUBATED) Skin: Warm/Dry Lymphatic: No Adenopathy Results Lab Laboratory Tests 09/18/17 03:00 09/19/17 03:00 Assessment/Plan Assessment/Plan Acute respiratory failure -Pt is off vent however requiring BiPAP Pneumonia with Helophilus - Zosyn Delirium -Start Risperidal 1mg BID -Haldol PRN -Morphine PRN UTI with Ecoli Acute Renal Failure - improved -Monitor Chronic Neutropenia 233 Critical Care: Critically Ill Patient FORTUNATO BARR DO Sep 19, 2017 04:40
[2017-09-19] MEDS: PIPERACILLIN SODIUM/TAZOBACTAM 4.5 GM in NS (IVPB) 100 ML IV SCH ×3 (05:13→22:26)
[2017-09-19] MEDS: methylPREDNISolone 40 MG/ML (Solu-MEDROL) VIAL IV SCH ×2 (05:13→11:54)
[2017-09-19] MEDS: inSUlin (REGULAR) HUMAN 1 UNIT/0.01 ML (CHARGE PER UNIT) SC SCH ×4 (05:13→20:59)
[2017-09-19] MEDS: LEVOTHYROXINE 75 MCG (LEVOTHROID) TABLET PO SCH (06:44)
--- NOTE | 2017-09-19 08:15 | Diagnostic Imaging Report ---
Indication: Followup. Shortness of air. Comparison: 09/18/2017 Findings: Single frontal radiographic view of the chest was obtained and demonstrates interval extubation. Left-sided Port-A-Cath is in stable position. Lungs continue to show low inspiratory volumes, but overall aeration is improved. Some patchy infiltrate type opacities remain bilaterally. There is no large effusion or pneumothorax. Cardiac silhouette and pulmonary vasculature are stable. Impression: 1. Interval extubation. 2. Persistent low lung volumes, but overall improved aeration. Continued followup is recommended. Dictated by: Dictated on workstation # [id number]
--- NOTE | 2017-09-19 08:17 | Progress Note (SOAP) ---
Subjective Date Seen by Provider: Sep 19, 2017 Time Seen by Provider: 08:10 Subjective/Events-last exam PT CONFUSED, DOES NOT KNOW WHO I AM TODAY. SHE DENIES PAIN, BUT IS NOT FOLLOWING QUESTIONS VERY WELL Review of Systems General: Fatigue Pulmonary: Dyspnea Cardiovascular: No: Chest Pain Gastrointestinal: No: Nausea, Vomiting Genitourinary: Other (TA IN PLACE) Musculoskeletal: No: neck pain Neurological: Weakness, Confusion PT CONFUSED, WEAK, HAS BEEN GRABBING AT ITEMS Objective Exam Vital Signs Date Time Temp Pulse Resp B/P (MAP) Pulse Ox O2 Delivery O2 Flow Rate FiO2 09/19/17 07:00 108 09/19/17 06:26 93 Vapotherm 30.00 40 09/19/17 06:00 112 28 128/73 (91) 92 Vapotherm 40.00 30.00 09/19/17 05:22 Vapotherm 40.00 30.00 09/19/17 05:00 109 25 120/70 (87) 95 Vapotherm 50.00 30.00 09/19/17 04:57 Vapotherm 50.00 30.00 09/19/17 04:00 112 38 128/71 (90) 95 NIV Bilevel 50.00 09/19/17 04:00 NIV Bilevel 50 09/19/17 04:00 98.0 09/19/17 03:59 113 24 94 40.00 09/19/17 03:00 112 23 112/70 (84) 95 NIV Bilevel 50.00 09/19/17 02:00 110 22 111/56 (74) 96 NIV Bilevel 50.00 09/19/17 01:53 112 26 98 50.00 09/19/17 01:00 112 09/19/17 01:00 114 23 107/58 (74) 97 NIV Bilevel 50.00 09/19/17 00:16 115 27 96 50.00 09/19/17 00:08 NIV Bilevel 50 09/19/17 00:00 97.7 09/19/17 00:00 116 34 105/53 (70) 93 NIV Bilevel 50.00 09/18/17 23:00 116 25 102/49 (66) 97 NIV Bilevel 50.00 09/18/17 22:07 111 24 97 50.00 09/18/17 22:00 106 23 99/66 (77) 98 Vapotherm 50.00 30.00 09/18/17 21:00 113 26 110/58 (75) 97 Vapotherm 50.00 30.00 09/18/17 20:00 113 21 106/87 (93) 92 Vapotherm 50.00 30.00 09/18/17 20:00 Vapotherm 30.00 50 09/18/17 19:40 99.1 118 24 124/71 (88) 95 Vapotherm 50.00 30.00 09/18/17 19:00 117 09/18/17 18:34 95 Vapotherm 30.00 50 09/18/17 18:00 112 23 115/68 (84) 99 Vapotherm 50.00 30.00 09/18/17 17:00 113 20 113/89 (97) 92 Vapotherm 50.00 30.00 09/18/17 16:00 Vapotherm 30.00 50 09/18/17 16:00 98.4 Vapotherm 50.00 30.00 09/18/17 16:00 108 24 136/86 (103) 95 High Flow N/C 5.00 09/18/17 15:00 Vapotherm 50.00 30.00 09/18/17 15:00 111 26 129/70 (89) 92 High Flow N/C 5.00 09/18/17 14:58 111 28 30.00 09/18/17 14:00 112 25 104/96 (99) 93 High Flow N/C 5.00 09/18/17 13:54 High Flow N/C 5.00 09/18/17 13:00 106 24 118/95 (103) 94 High Flow N/C 5.00 09/18/17 13:00 101 09/18/17 12:00 97.1 09/18/17 12:00 Vapotherm 20.00 50 09/18/17 12:00 107 19 125/93 (104) 91 High Flow N/C 5.00 09/18/17 11:25 High Flow N/C 5.00 09/18/17 11:00 104 24 126/103 (111) 93 Mechanical Ventilator 35.00 09/18/17 10:25 91 23 95 35 09/18/17 10:00 89 24 140/107 (118) 96 Mechanical Ventilator 35.00 09/18/17 09:00 94 24 149/110 (123) 95 Mechanical Ventilator 35.00 I & O 09/19/17 07:00 Intake Total 700 ml Output Total 5775 ml Balance -5075 ml Capillary Refill : Less Than 3 SecondsLess Than 3 Seconds General Appearance: WD/WN, Mild Distress (CONFUSION) HEENT: PERRL/EOMI Neck: Full Range of Motion, Supple Respiratory: Chest Non Tender, Crackles, Decreased Breath Sounds Cardiovascular: Tachycardia Gastrointestinal: normal bowel sounds, non tender, soft, no organomegaly Extremity: Pedal Edema Neurologic/Psychiatric: Alert, Disoriented x3 Skin: Warm/Dry Results Lab Laboratory Tests 09/18/17 10:23: Blood Gas Puncture Site RT RAD, Blood Gas Patient Temperature 96.7, Arterial Blood pH 7.44H, Arterial Blood Partial Pressure CO2 39, Arterial Blood Partial Pressure O2 69L, Arterial Blood HCO3 26, Arterial Blood Total CO2 27.6, Arterial Blood Oxygen Saturation 96, Arterial Blood Base Excess 2.4, Jesse Test YES-POS, Blood Gas Ventilator Setting YES, Blood Gas Inspired Oxygen 35% 09/18/17 11:52: Glucometer 187H 09/18/17 17:23: Glucometer 118H 09/18/17 23:10: Glucometer 114H 09/19/17 03:00: White Blood Count 5.8, Red Blood Count 3.13L, Hemoglobin 10.5L, Hematocrit 32L, Mean Corpuscular Volume 102H, Mean Corpuscular Hemoglobin 34, Mean Corpuscular Hemoglobin Concent 33, Red Cell Distribution Width 14.6H, Platelet Count 171, Mean Platelet Volume 10.3, Neutrophils (%) (Auto) 89H, Lymphocytes (%) (Auto) 5L , Monocytes (%) (Auto) 5, Eosinophils (%) (Auto) 0, Basophils (%) (Auto) 1, Neutrophils # (Auto) 5.2, Lymphocytes # (Auto) 0.3L, Monocytes # (Auto) 0.3, Eosinophils # (Auto) 0.0, Basophils # (Auto) 0.0, Sodium Level 147H, Potassium Level 4.7, Chloride Level 105, Carbon Dioxide Level 28, Anion Gap 14, Blood Urea Nitrogen 21H, Creatinine 1.11, Estimat Glomerular Filtration Rate 49, BUN/ Creatinine Ratio 19, Glucose Level 140H, Calcium Level 7.8L, Phosphorus Level 4.1, Magnesium Level 1.9, B-Type Natriuretic Peptide 86.4 09/19/17 03:10: Blood Gas Puncture Site R RAD, Blood Gas Patient Temperature 98.0, Arterial Blood pH 7.44H, Arterial Blood Partial Pressure CO2 50H, Arterial Blood Partial Pressure O2 93, Arterial Blood HCO3 33H, Arterial Blood Total CO2 34.7H, Arterial Blood Oxygen Saturation 98, Arterial Blood Base Excess 8.6H, Jesse Test YES-POS, Blood Gas Ventilator Setting YES, Blood Gas Inspired Oxygen 40% BIPAP Microbiology 09/13/17 Blood Culture - Final, Complete No growth 09/17/17 Gram Stain - Final, Resulted 09/17/17 Bronchial Culture - Preliminary, Resulted Usual/normal orddy isolated. 09/17/17 Fungal Culture, Resulted Pending 09/11/17 Urine Culture - Final, Complete Escherichia coli Assessment/Plan Assessment/Plan Assess & Plan/Chief Complaint RESPIRATORY FAILURE INFLUENZA PNEUMONIA DEHYDRATION ACUTE RENAL INSUFFICIENCY URINARY TRACT INFECTION CHRONIC DEPRESSION CHRONIC NEUTROPENIA WITH WHITE COUNT NORMAL, BUT ELEVATED FOR THIS PATIENT. INFLUENZA AND PNEUMONIA - PT EXTUBATED YESTERDAY - NOW ON VAPOTHERM - - CHEST XRAY IMPROVED - CONTINUE WITH ANTIBIOTICS - MEDICATION ADJUSTED BY DR. BARR HAEMOPHILUS INFLUENZAE AND ECOLI AND INFLUENZA A - CLOSELY MONITOR SYMPTOMS. MONITOR SERIAL CHEST XRAYS, MAT PROTOCOL. DEHYDRATION - IV FLUIDS FOR HYDRATION ACUTE RENAL INSUFFICIENCY -IMPROVED WITH HYDRATION - PT TO CONTINUE WITH IV FLUIDS, MONITOR RENAL FUNCTION WITH SERIAL LABS. URINARY TRACT INFECTION - ON IV ANTIBIOTICS. CHRONIC DEPRESSION - AND HISTORY OF SCHIZOPHRENIFORM DISORDER - PT ON ZYPREXA SERIALLY - THIS HAS BEEN HELD FOR A WEEK - WILL RESTART AT TID TODAY DUE TO HER SYMPTOMS, MAY NEED TO BE DECREASED TO ONE TIME A DAY ON FRIDAY. NEUTROPENIA - RESOLVED AFTER GRANIX. SHE WILL NEED A FEW WEEKS A JAIL FOR SKILLED THERAPY FOR RECOVERY PRIOR TO GOING HOME. FAMILY H INDICATED THAT THEY WOULD PREFER [facility] ON DISCHARGE. Clinical Quality Measures Admission Status Admission Dx INFLUENZA PNEUMONIA DEHYDRATION ACUTE RENAL INSUFFICIENCY URINARY TRACT INFECTION CHRONIC DEPRESSION CHRONIC NEUTROPENIA WITH WHITE COUNT NORMAL, BUT ELEVATED FOR THIS PATIENT. DVT/VTE Risk/Contraindication: Risk Factor Score Per Nursin RFS Level Per Nursing on Admit: 4+=Very High ORTEGA PIERRE MD Sep 19, 2017 08:17
[2017-09-19] MEDS: MENTHOL/ZINC OXIDE (CALMOSEPTINE) 113 GM TUBE TOP SCH ×2 (08:19→20:59)
[2017-09-19] MEDS: FLUoxetine HCL 20 MG (PROzac) CAP PO SCH (08:19)
[2017-09-19] MEDS: ACYCLOVIR 400 MG TABLET (ZOVIRAX) PO SCH (08:19)
[2017-09-19] MEDS: OLANZapine 2.5 MG (ZyPREXA) TAB PO SCH ×3 (08:19→20:57)
[2017-09-19] MEDS: PANTOPRAZOLE 40 MG/10 ML (PROTONIX) VIAL IV SCH (08:19)
[2017-09-19] MEDS: LETROZOLE 2.5 MG (FEMARA) TAB PO SCH (08:20)
[2017-09-19] MEDS ORDERED: FUROSEMIDE 40 MG/4 ML INJ (LASIX) IVP SCH (09:00)
[2017-09-19] MEDS ORDERED: risperiDONE 1 MG (RisperDAL) TAB PO SCH (09:00)
[2017-09-19] MEDS: meTOprolol TARTRATE 25 MG (LOPRESSOR) TABLET PO SCH ×2 (09:53→20:58)
--- NOTE | 2017-09-19 10:08 | Physical Therapy Daily Note ---
PT Daily Note-Current Subjective Pt asleep Supine in bed upon arrival. Pt & daughter that is present, agree for pt to have PT. Mental Status Patient Orientation: Person, Unresponsive Attachments: Oxygen, IV Transfers Functional [place] Measure 0=Not Assessed/NA 4=Minimal Assistance 1=Total Assistance 5=Supervision or Setup 2=Maximal Assistance 6=Modified [place] 3=Moderate Assistance 7=Complete IndependenceIRFPAI Quality Coding Scale 6 Independent with activity with or without an assistive device 5 Patient requires set up or clean up by helper. Patient completes activity by themselves 4 Supervision or touching assist (CGA). [place] provide cues , steadying assist 3 The helper provides less than half the effort to complete the activity 2 The helper provides more than half the effort to complete the activity 1 Dependent. The helper does all the effort to complete an activity 7 Patient refused to complete or attempt activity 9 The patient did not perform the activity before the current illness or injury 88 Not attempted due to Medical conditions or safety concerns Weight Bearing Right Lower Extremity: Right Full Weight Bearing Left Lower Extremity: Left Full Weight Bearing Exercises Supine Ex: Ankle pumps, Quad Set, Heel Slides, Straight leg raise, Hip abd/add Supine Reps: 10 (All Exercise were PROM-AAROM.) Treatments Pt has difficulty staying awake during tx. Pt completes Supine Ex in bed at PROM-AAROM. Pt takes a couple short rest breaks during Ex. Pt resting in bed at end of tx with all needs met and family present. Assessment Current Status: Good Progress Pt doesn't verbalize anything. Pt is difficult to keep awake during tx. PT Short Term Goals Short Term Goals Time Frame: Oct 03, 2017 Transfers (B,C,W/C) (FIM): 4 Gait (FIM): 2 Distance (FIM): 8=533-19 ft Gait Distance Comment: 100' Gait Level of Assist: 4 Gait Assistive Device: FWW PT Alf Goals Marketing Services Vice President Goals PT Alf Goals Time Frame: Oct 18, 2017 Transfers (B,C,W/C) (FIM): 6 Gait (FIM): 6 Gait distance (FIM): 3=150 ft Distance: 300' Gait Level of Assist: 6 Gait Assistive Device: None, FWW PT Plan Problem List Problem List: Activity Tolerance, Functional Strength, Safety, Balance, Gait, Transfer, Bed Mobility, ROM Treatment/Plan Treatment Plan: Continue Plan of Care Treatment Plan: Bed Mobility, Education, Functional Activity Sanchez, Functional Strength, Gait, Safety, Therapeutic Exercise, Transfers Treatment Duration: Oct 18, 2017 Frequency: 6 times per week Estimated Hrs Per Day: .5 hour per day Patient and/or Family Agrees t: Yes Safety Risks/Education Patient Education: Correct Positioning, Disease Process, Safety Issues Teaching Recipient: Family Teaching Methods: Discussion Response to Teaching: Verbalize Understanding Time/GCodes Time In: 835 Time Out: 900 Total Billed Treatment Time: 25 Total Billed Treatment 1, EX x2 (25m) ROSA HICKEY TESTER ELECTRONIC SCALE Sep 19, 2017 10:08
[2017-09-19] MEDS ORDERED: FUROSEMIDE 40 MG/4 ML INJ (LASIX) IVP ONE (13:00)
--- NOTE | 2017-09-19 13:29 | Speech Therapy Daily Note ---
Speech Daily Progress Note Subjective Date Seen by Provider: Sep 19, 2017 Time Seen by Provider: 09:45 The patient was sitting upright in bed, sleeping upon entrance. The patient recently completed a respiratory treatment. Per patient's RN, the patient is fatigued often, however, does rouse easily. The patient did wake with gentle verbal prompting. Per RN, the patient consumed her breakfast (oatmeal) without difficulty. Objective Thin Liquid: Due to the patient's level of fatigue, only thin liquid was reassessed to allow the patient to continue resting. No signs/symptoms of aspiration were demonstrated with three ounces of thin liquid via straw sip. The patient's vocal quality remained clear and her SpO2% remained stable. The clinician provided education to the patient's family member in the room re: signs/symptoms of aspiration and laryngeal penetration. The clinician requested the family member share any observations of this symptoms with staff if observed. Assessment Assessment Current Status: Good Progress Treatment Plan Continue Plan of Care Speech Jail Goals Jail Goals 1. The patient will tolerate a diet of the least restrictive consistency without signs/symptoms of aspiration or laryngeal penetration. Time Frame: Three Days Speech-Plan Treatment Plan Speech Therapy Treatment Plan: Continue Plan of Care Continue skilled speech pathology to target swallowing safety. Treatment Duration: Sep 22, 2017 Frequency: 3 times per week Estimated Hrs Per Day: .25 hour per day Rehab Potential: Guarded Safety Risks/Education Teaching Recipient: Patient Teaching Methods: Discussion Response to Teaching: Verbalize Understanding Education Topics Provided: Results, Recommendations, Signs/Symptoms of Aspiration Time Speech Therapy Time In: 09:45 Speech Therapy Time Out: 09:55 Total Billed Time: 10 Billed Treatment Time 1, YESENIA PILLAI Sep 19, 2017 13:29
[2017-09-19] MEDS: HALOPERIDOL 5 MG/ML (HALDOL) AMP IV PRN (14:03)
--- NOTE | 2017-09-19 14:21 | Occupational Therapy Eval ---
OT Evaluation-General/PLF Medical Diagnosis Admission Date Sep 11, 2017 at 12:00 Medical Diagnosis: pneumonia/leukopenia Onset Date: Sep 11, 2017 Therapy Diagnosis Therapy Diagnosis: Decreased self care skills Height/Weight Height (Feet): 5 Height (Inches): 0.00 Weight (Pounds): 175 Weight (Ounces): 9.0 Precautions Precautions/Isolations: Fall Prevention, Standard Precautions Safety Interventions: Reorient-PRN Referral Physician: Nakita Medical History Additional Medical History high cholesterol, multiple myeloma, anxiety, depression Reviewed History: Yes Social History Home: Single Level Current Living Status: Spouse ADL-Prior Level of Function ADL PLOF Comments Pt unable to provide information regarding PLOF. Pt states she lives alone, but nursing states she lives with spouse. OT Current Status Subjective RN reports pt is back on Bi-pap, but is okay for bed level activity. Pt has eyes closed, but easily awakens. Mental Status/Objective Patient Orientation: Person Attachments: Sauer Catheter, IV, Oxygen Current Glasses/Contacts: Yes Upper Extremity ROM Pt has decreased AROM, but PROM is grossly functional Upper Extremity Coordination Decreased Upper Extremity Strength Pt participates in AAROM bilateral UE. Impaired strength bilaterally. Edema: Pt has edema in hands L>R ADL-Treatment ADL-Current Pt is on Bi-pap, RN states okay to participate in bed level activity. Pt participated in UE assessment/ ROM. Pt awakens easily, but has decreased level of alertness and requires multiple cues to participate. Pt resting in bed with needs met after session. Functional [place] Measure 0=Not Assessed/NA 4=Minimal Assistance 1=Total Assistance 5=Supervision or Setup 2=Maximal Assistance 6=Modified [place] 3=Moderate Assistance 7=Complete IndependenceIRFPAI Quality Coding Scale 6 Independent with activity with or without an assistive device 5 Patient requires set up or clean up by helper. Patient completes activity by themselves 4 Supervision or touching assist (CGA). [place] provide cues , steadying assist 3 The helper provides less than half the effort to complete the activity 2 The helper provides more than half the effort to complete the activity 1 Dependent. The helper does all the effort to complete an activity 7 Patient refused to complete or attempt activity 9 The patient did not perform the activity before the current illness or injury 88 Not attempted due to Medical conditions or safety concerns Education OT Patient Education: Rehab process Teaching Recipient: Patient Teaching Methods: Discussion Response to Teaching: Reinforcement Needed OT Short Term Goals Short Term Goals Time Frame: Oct 03, 2017 Eating(FIM): 5 Grooming(FIM): 4 Upper Body Dressing(FIM): 4 Additional Short Term Goals: 2-Verbalize Understanding, 3-ImproveStrength/Sanchez 1=Demonstrate adherence to instructed precautions during ADL tasks. 2=Patient will verbalize/demonstrate understanding of assistive devices/ modifications for ADL. 3=Patient will improve strength/tolerance for activity to enable patient to perform ADL's. OT Custodial Goals Custodial Goals Time Frame: Oct 10, 2017 Eating (FIM): 6 Grooming(FIM): 5 Bathing(FIM): 4 Upper Body Dressing(FIM): 5 Lower Body Dressing(FIM): 5 Toilet/Commode Transfer(FIM): 5 Additional Goals: 2-Verbalize Understanding, 3-ImproveStrength/Sanchez 1=Demonstrate adherence to instructed precautions during ADL tasks. 2=Patient will verbalize/demonstrate understanding of assistive devices/ modifications for ADL. 3=Patient will improve strength/tolerance for activity to enable patient to perform ADL's. OT Education/Plan Problem List/Assessment Assessment: Decreased Activ Tolerance, Decreased UE Strength, Dependent Transfers, Impaired Coordination, Impaired Self-Care Skills Pt demonstrates decreased activity tolerance, mobility, strength, and ADL functioning. Pt to benefit from skilled OT intervention for ADL training, transfers, strengthening, and safety education to improve level of independence and allow safe discharge plan. Discharge Recommendations Plan/Recommendations: Continue POC Treatment Plan/Plan of Care Treatment,Training & Education: Yes Patient would benefit from OT for education, treatment and training to promote independence in ADL's, mobility, safety and/or upper extremity function for ADL' s. Plan of Care: ADL Retraining, Functional Mobility, UE Funct Exercise/Act Treatment Duration: Oct 10, 2017 Frequency: 5 times per week Estimated Hrs Per Day: .25 hour per day Rehab Potential: Guarded Time/GCodes Start Time: 13:23 Stop Time: 13:35 Total Time Billed (hr/min): 12 Billed Treatment Time 1 visit, [facility](12minutes) KAITLYNN PERALTA OT Sep 19, 2017 14:21
[2017-09-20] VITALS (28 sets, daily range): BP systolic 95–123; BP diastolic 50–88
[2017-09-20] MEDS: RT-ALBUTEROL/IPRATROPIUM 3 ML (DUONEB) VIAL INH SCH ×6 (03:15→22:32)
[2017-09-20 03:37] LABS: ABG BASE EXCESS 11.3 MMOL/L (-2.5-2.5); ABG OXYGEN SATURATION 96 % (94-100); ABG PCO2 45 MMHG (35-45); ABG PO2 70 MMHG (79-93); ABG TCO2 36.7 MMOL/L (21.0-31.0)
[2017-09-20 03:38] LABS: ALLENS TEST YES-POS; INSPIRED O2 40% BIPAP; PATIENT TEMP 97.6; VENTILATOR NO
[2017-09-20 03:39] LABS: BASOPHILS % (AUTO) 1 % (0-10); EOSINOPHILS % (AUTO) 1 % (0-10); HEMATOCRIT 36 % (35-52); HEMOGLOBIN 11.4 G/DL (11.5-16.0); LYMPHOCYTES % (AUTO) 19 % (12-44); MEAN CORPUSCULAR HEMOGLOBIN 33 PG (25-34); MEAN CORPUSCULAR HGB CONC 32 G/DL (32-36); MEAN CORPUSCULAR VOLUME 105 FL (80-99); MEAN PLATELET VOLUME 10.8 FL (7.4-10.4); MONOCYTES # (AUTO) 0.3 X 10^3 (0.0-1.0); MONOCYTES % (AUTO) 5 % (0-12); NEUTROPHILS % (AUTO) 75 % (42-75); PLATELET COUNT 165 10^3/uL (130-400); RED BLOOD COUNT 3.41 10^6/uL (4.35-5.85); RED CELL DISTRIBUTION WIDTH 14.7 % (10.0-14.5); WHITE BLOOD COUNT 5.3 10^3/uL (4.3-11.0)
[2017-09-20 04:03] LABS: CALCIUM 8.1 MG/DL (8.5-10.1); CREATININE SERUM 1.25 MG/DL (0.60-1.30); MAGNESIUM 1.9 MG/DL (1.8-2.4); POTASSIUM 3.5 MMOL/L (3.6-5.0)
[2017-09-20] MEDS: POTASSIUM CL 10MEQ/50ML IVPB 50 ML IV SCH ×3 (05:02→06:00)
[2017-09-20] MEDS: MAGNESIUM 1 GM/100 ML IVPB 100 ML IV SCH (06:00)
[2017-09-20] MEDS: inSUlin (REGULAR) HUMAN 1 UNIT/0.01 ML (CHARGE PER UNIT) SC SCH ×4 (06:00→21:14)
[2017-09-20] MEDS: KCL 20 MEQ TAB (K-DUR) PO SCH (06:00)
--- NOTE | 2017-09-20 06:03 | Pulmonary Progress Note ---
Subjective Time Seen by Provider: 06:06 Subjective/Events-last exam PT is doing better. No complications noted. Exam Exam Vital Signs Date Time Temp Pulse Resp B/P (MAP) Pulse Ox O2 Delivery O2 Flow Rate FiO2 09/20/17 05:00 106 29 102/69 (80) 96 NIV Bilevel 40.00 09/20/17 04:00 105 25 95/69 (78) 96 NIV Bilevel 40.00 09/20/17 04:00 97.6 NIV Bilevel 40.00 09/20/17 04:00 96 NIV Bilevel 40 09/20/17 03:00 102 22 119/78 (92) NIV Bilevel 40.00 09/20/17 02:00 100 25 107/76 (86) NIV Bilevel 40.00 09/20/17 01:00 115 09/20/17 01:00 115 26 111/58 (75) 87 NIV Bilevel 40.00 09/20/17 00:38 100 23 97 40.00 09/20/17 00:00 96.8 NIV Bilevel 40.00 09/20/17 00:00 108 27 103/84 (90) 96 NIV Bilevel 40.00 09/20/17 00:00 96 NIV Bilevel 40 09/19/17 23:00 111 22 97/77 (84) 96 NIV Bilevel 40.00 09/19/17 22:00 112 34 128/91 (103) NIV Bilevel 40.00 09/19/17 21:00 104 31 122/95 (104) 98 NIV Bilevel 40.00 09/19/17 20:00 103 31 134/71 (92) 96 NIV Bilevel 40.00 09/19/17 20:00 98.0 NIV Bilevel 40.00 09/19/17 20:00 96 NIV Bilevel 40 09/19/17 19:00 108 09/19/17 19:00 104 28 133/96 (108) Vapotherm 40.00 30.00 09/19/17 18:00 98 133/104 (114) Vapotherm 40.00 30.00 09/19/17 17:00 102 28 139/77 (97) 95 Vapotherm 40.00 30.00 09/19/17 16:10 94 Vapotherm 30.00 40 09/19/17 16:00 105 28 126/80 (95) 92 Vapotherm 40.00 30.00 09/19/17 16:00 99.2 Vapotherm 09/19/17 15:34 136/86 (103) 09/19/17 15:00 106 36 147/107 (120) 96 NIV Bilevel 40.00 09/19/17 14:00 110 24 144/95 (111) 96 NIV Bilevel 40.00 09/19/17 13:46 109 32 97 40.00 09/19/17 13:00 98 30 129/85 (100) 96 NIV Bilevel 40.00 09/19/17 12:59 100 09/19/17 12:20 94 Vapotherm 30.00 40 09/19/17 12:00 96 22 112/65 (81) 97 Vapotherm 40.00 30.00 09/19/17 11:59 98.6 Vapotherm 40.00 30.00 09/19/17 11:00 98 24 126/82 (97) 95 Vapotherm 40.00 30.00 09/19/17 10:00 110 20 125/78 (94) 95 Vapotherm 40.00 30.00 09/19/17 09:50 95 Vapotherm 30.00 40 09/19/17 09:00 113 25 99/54 (69) 95 Vapotherm 40.00 30.00 09/19/17 08:20 94 Vapotherm 30.00 40 09/19/17 08:00 99.3 Vapotherm 40.00 30.00 09/19/17 08:00 112 22 112/70 (84) 93 Vapotherm 40.00 30.00 09/19/17 07:00 108 22 117/75 (89) 93 Vapotherm 40.00 30.00 09/19/17 07:00 108 09/19/17 06:26 93 Vapotherm 30.00 40 09/19/17 06:00 112 28 128/73 (91) 92 Vapotherm 40.00 30.00 I & O 09/20/17 07:00 Intake Total 635 ml Output Total 3075 ml Balance -2440 ml General Appearance: WD/WN, Mild Distress (CONFUSION) HEENT: PERRL/EOMI Neck: Full Range of Motion, Supple Respiratory: Chest Non Tender, Crackles, Decreased Breath Sounds Cardiovascular: Tachycardia Capillary Refill: Less Than 3 Seconds Gastrointestinal: normal bowel sounds, non tender, soft, no organomegaly Extremity: Pedal Edema Neurologic/Psychiatric: Alert, Disoriented x3 Skin: Warm/Dry Lymphatic: No Adenopathy Results Lab Laboratory Tests 09/19/17 03:00 09/20/17 03:30 Assessment/Plan Assessment/Plan Acute respiratory failure -Pt is off vent however requiring BiPAP -Off BiPAP during the day back to BiPAP at night decrease to 12/6 Pneumonia with Helophilus - Zosyn Hypernatremia -Add D5W at 50cc/hr -monitor -Hold lasix Delirium -Zyprexa -Haldol PRN -Morphine PRN UTI with Ecoli Acute Renal Failure - improved -Monitor Chronic Neutropenia 233 Critical Care: Critically Ill Patient FORTUNATO BARR DO Sep 20, 2017 06:03
[2017-09-20] MEDS: PIPERACILLIN SODIUM/TAZOBACTAM 4.5 GM in NS (IVPB) 100 ML IV SCH ×3 (06:11→21:12)
[2017-09-20] MEDS: D5W 1000 ML IV SOLUTION 1,000 ML IV SCH (06:55)
[2017-09-20] MEDS: LEVOTHYROXINE 75 MCG (LEVOTHROID) TABLET PO SCH (06:57)
[2017-09-20] MEDS: MENTHOL/ZINC OXIDE (CALMOSEPTINE) 113 GM TUBE TOP SCH ×2 (08:55→21:11)
[2017-09-20] MEDS: FLUoxetine HCL 20 MG (PROzac) CAP PO SCH (08:55)
[2017-09-20] MEDS: meTOprolol TARTRATE 25 MG (LOPRESSOR) TABLET PO SCH ×2 (08:55→21:11)
[2017-09-20] MEDS: OLANZapine 2.5 MG (ZyPREXA) TAB PO SCH ×3 (08:55→21:11)
[2017-09-20] MEDS: PANTOPRAZOLE 40 MG/10 ML (PROTONIX) VIAL IV SCH (08:55)
[2017-09-20] MEDS: methylPREDNISolone 40 MG/ML (Solu-MEDROL) VIAL IV SCH ×2 (08:55→21:11)
[2017-09-20] MEDS: ACYCLOVIR 400 MG TABLET (ZOVIRAX) PO SCH (08:55)
[2017-09-20] MEDS: LETROZOLE 2.5 MG (FEMARA) TAB PO SCH (08:56)
--- NOTE | 2017-09-20 09:07 | Diagnostic Imaging Report ---
CHEST 1 VIEW, AP/PA ONLY INDICATION: Shortness of air. COMPARISON: 09/19/2017. FINDINGS: Support Devices: Stable left subclavian catheter. Chest: Patchy bibasilar heterogeneous pulmonary opacities are unchanged, and remain greater on the left. No pneumothorax. Possible trace left pleural effusion is unchanged. IMPRESSION: 1. Stable support devices. 2. No adverse development. Dictated by: Dictated on workstation # [id number]
--- NOTE | 2017-09-20 14:19 | Physical Therapy Daily Note ---
PT Daily Note-Current Subjective Pt is alert, able to give intermittent responses to questions (verbally and with non-verbal signs). Transfers Functional [place] Measure 0=Not Assessed/NA 4=Minimal Assistance 1=Total Assistance 5=Supervision or Setup 2=Maximal Assistance 6=Modified [place] 3=Moderate Assistance 7=Complete IndependenceIRFPAI Quality Coding Scale 6 Independent with activity with or without an assistive device 5 Patient requires set up or clean up by helper. Patient completes activity by themselves 4 Supervision or touching assist (CGA). [place] provide cues , steadying assist 3 The helper provides less than half the effort to complete the activity 2 The helper provides more than half the effort to complete the activity 1 Dependent. The helper does all the effort to complete an activity 7 Patient refused to complete or attempt activity 9 The patient did not perform the activity before the current illness or injury 88 Not attempted due to Medical conditions or safety concerns Weight Bearing Right Lower Extremity: Right Full Weight Bearing Left Lower Extremity: Left Full Weight Bearing Exercises Supine Ex: LE Protocol Supine Reps: 20 Verbal cues needed to keep pt participating with PT. She provided ~25% effort for exercises. Assessment Pt was able to participate with exercises, and was able to perform supine short arc quad exercises completely (I). PT Short Term Goals Short Term Goals Time Frame: Oct 03, 2017 Gait (FIM): 2 Distance (FIM): 8=698-04 ft Gait Distance Comment: 100' Gait Level of Assist: 4 Gait Assistive Device: FWW PT Nursing Home Goals Nursing Home Goals PT Nursing Home Goals Time Frame: Oct 18, 2017 Transfers (B,C,W/C) (FIM): 6 Gait (FIM): 6 Gait distance (FIM): 3=150 ft Distance: 300' Gait Level of Assist: 6 Gait Assistive Device: None, FWW PT Plan Treatment/Plan Treatment Plan: Continue Plan of Care Treatment Plan: Bed Mobility, Education, Functional Activity Sanchez, Functional Strength, Gait, Safety, Therapeutic Exercise, Transfers Treatment Duration: Oct 18, 2017 Frequency: 6 times per week Estimated Hrs Per Day: .5 hour per day Patient and/or Family Agrees t: Yes Time/GCodes Time In: 1248 Time Out: 1305 Total Billed Treatment Time: 17 Total Billed Treatment 1, ex 17 DELICIA SIMS PT Sep 20, 2017 14:19
[2017-09-21] VITALS (24 sets, daily range): BP systolic 109–134; BP diastolic 49–106
[2017-09-21] MEDS: D5W 1000 ML IV SOLUTION 1,000 ML IV SCH ×2 (02:00→22:20)
[2017-09-21] MEDS: RT-ALBUTEROL/IPRATROPIUM 3 ML (DUONEB) VIAL INH SCH ×5 (02:26→20:05)
[2017-09-21 03:31] LABS: BASOPHILS % (AUTO) 0 % (0-10); EOSINOPHILS % (AUTO) 0 % (0-10); HEMATOCRIT 30 % (35-52); HEMOGLOBIN 9.3 G/DL (11.5-16.0); LYMPHOCYTES # (AUTO) 0.3 X 10^3 (1.0-4.0); LYMPHOCYTES % (AUTO) 14 % (12-44); MEAN CORPUSCULAR HEMOGLOBIN 33 PG (25-34); MEAN CORPUSCULAR HGB CONC 31 G/DL (32-36); MEAN CORPUSCULAR VOLUME 106 FL (80-99); MEAN PLATELET VOLUME 10.9 FL (7.4-10.4); MONOCYTES # (AUTO) 0.1 X 10^3 (0.0-1.0); MONOCYTES % (AUTO) 6 % (0-12); NEUTROPHILS # (AUTO) 1.9 X 10^3 (1.8-7.8); NEUTROPHILS % (AUTO) 80 % (42-75); PLATELET COUNT 131 10^3/uL (130-400); RED CELL DISTRIBUTION WIDTH 14.5 % (10.0-14.5); WHITE BLOOD COUNT 2.4 10^3/uL (4.3-11.0)
[2017-09-21 04:09] LABS: CALCIUM 7.6 MG/DL (8.5-10.1); CREATININE SERUM 0.96 MG/DL (0.60-1.30); MAGNESIUM 1.6 MG/DL (1.8-2.4); PHOSPHORUS 3.6 MG/DL (2.3-4.7); POTASSIUM 3.5 MMOL/L (3.6-5.0)
[2017-09-21] MEDS: MAGNESIUM 1 GM/100 ML IVPB 100 ML IV SCH ×3 (04:31→05:30)
[2017-09-21] MEDS: KCL 20 MEQ TAB (K-DUR) PO SCH (04:31)
[2017-09-21] MEDS: POTASSIUM CL 10MEQ/50ML IVPB 50 ML IV SCH ×3 (04:31→05:30)
[2017-09-21] MEDS: inSUlin (REGULAR) HUMAN 1 UNIT/0.01 ML (CHARGE PER UNIT) SC SCH ×4 (04:38→21:20)
[2017-09-21] MEDS: PIPERACILLIN SODIUM/TAZOBACTAM 4.5 GM in NS (IVPB) 100 ML IV SCH ×3 (05:05→21:20)
[2017-09-21] MEDS: LEVOTHYROXINE 75 MCG (LEVOTHROID) TABLET PO SCH (06:23)
[2017-09-21] MEDS: meTOprolol TARTRATE 25 MG (LOPRESSOR) TABLET PO SCH ×2 (08:12→21:19)
[2017-09-21] MEDS: OLANZapine 2.5 MG (ZyPREXA) TAB PO SCH ×3 (08:12→21:34)
[2017-09-21] MEDS: PANTOPRAZOLE 40 MG/10 ML (PROTONIX) VIAL IV SCH (08:12)
[2017-09-21] MEDS: methylPREDNISolone 40 MG/ML (Solu-MEDROL) VIAL IV SCH ×2 (08:12→21:21)
[2017-09-21] MEDS: FLUoxetine HCL 20 MG (PROzac) CAP PO SCH (08:12)
[2017-09-21] MEDS: ACYCLOVIR 400 MG TABLET (ZOVIRAX) PO SCH (08:12)
[2017-09-21] MEDS: MENTHOL/ZINC OXIDE (CALMOSEPTINE) 113 GM TUBE TOP SCH ×2 (08:13→21:20)
[2017-09-21] MEDS: LETROZOLE 2.5 MG (FEMARA) TAB PO SCH (08:14)
--- NOTE | 2017-09-21 09:44 | Diagnostic Imaging Report ---
INDICATION: Shortness of breath EXAM: Portable chest at 3:51 AM FINDINGS: The left subclavian Port-A-Cath tip projects over the SVC. Heart size and pulmonary vascularity are normal. The lungs are clear. There are no effusions or pneumothoraces. IMPRESSION: Suboptimal inspiration. No appreciable change from the previous day. Dictated by: Dictated on workstation # [id number]
--- NOTE | 2017-09-21 14:52 | Progress Note-Hospitalist ---
Standard Progress Note Progress Notes/Assess & Plan Date Seen 09/21/17 Time Seen by Provider: 14:47 Assess & Plan/Chief Complaint The patient is a 72-year-old white female known to me from her presentation to the emergency room immediately prior to her admission. She has had a difficult hospital course with ultimate intubation. She was weaned with difficulty and was extubated on 09/19. The nurses report she is more alert today. Of interest today her vital signs are normal. Her white blood count is noted to have declined from 5.3-2.4. And her hemoglobin from 11.4-9.3 both since yesterday. The cause is not clear at this time. Physical exam: We have an elderly female who appears much older than her stated age. Lungs show shallow respirations but are clear. CV is regular without murmur. Extremities show no edema. She is currently on O2 by nasal cannula with SaO2 is 88. Impression: Influenza a. 2.pneumonia and respiratory failure. 3.prolonged and difficult course On the ventilator. 4.relative hypoxia Labs Laboratory Tests 09/20/17 03:30 09/21/17 03:15 PASCUAL NAVA MD Sep 21, 2017 14:52
--- NOTE | 2017-09-21 17:08 | Pulmonary Progress Note ---
Subjective Time Seen by Provider: 17:07 Subjective/Events-last exam Pt is doing better. Will transfer to 4th floor. Exam Exam Vital Signs Date Time Temp Pulse Resp B/P (MAP) Pulse Ox O2 Delivery O2 Flow Rate FiO2 09/21/17 16:26 93 Vapotherm 20.00 30 09/21/17 16:25 98.5 Vapotherm 30.00 20.00 09/21/17 15:11 94 Vapotherm 20.00 35 09/21/17 14:00 85 29 119/63 (81) 96 Vapotherm 30.00 20.00 09/21/17 13:00 81 09/21/17 13:00 81 29 129/65 (86) 95 Vapotherm 30.00 20.00 09/21/17 12:13 71 96 30 09/21/17 12:05 95 Vapotherm 30.00 40 09/21/17 12:00 Vapotherm 30.00 20.00 09/21/17 11:00 80 27 122/60 (80) 92 Vapotherm 30.00 20.00 09/21/17 10:38 Vapotherm 30.00 20.00 09/21/17 10:37 96 Vapotherm 25.00 35 09/21/17 10:00 78 25 124/68 (86) 97 Vapotherm 40.00 30.00 09/21/17 09:00 80 24 123/106 (112) 97 Vapotherm 40.00 30.00 09/21/17 08:12 95 Vapotherm 30.00 40 09/21/17 08:00 80 20 113/62 (79) 95 Vapotherm 40.00 30.00 09/21/17 08:00 97.7 Vapotherm 40.00 30.00 09/21/17 07:00 89 09/21/17 07:00 89 28 115/66 (82) 95 Vapotherm 40.00 30.00 09/21/17 06:32 98 Vapotherm 30.00 40 09/21/17 06:26 Vapotherm 40.00 30.00 09/21/17 06:24 74 28 95 30.00 09/21/17 06:00 73 26 132/75 (94) 96 NIV Bilevel 30.00 09/21/17 05:00 78 29 130/73 (92) 95 NIV Bilevel 30.00 09/21/17 04:20 82 22 97 30.00 09/21/17 04:00 84 25 134/75 (94) 96 NIV Bilevel 30.00 09/21/17 03:20 95 NIV Bilevel 30 09/21/17 03:15 98.9 09/21/17 03:00 80 29 130/65 (86) 95 NIV Bilevel 30.00 09/21/17 02:26 78 21 96 30.00 09/21/17 02:00 82 19 124/59 (80) 97 NIV Bilevel 30.00 09/21/17 01:00 82 09/21/17 01:00 80 25 127/79 (95) 96 NIV Bilevel 30.00 09/21/17 00:28 83 15 95 30.00 09/21/17 00:00 88 24 127/62 (83) 94 NIV Bilevel 30.00 09/20/17 23:35 98.0 94 NIV Bilevel 30.00 09/20/17 23:20 94 NIV Bilevel 30 09/20/17 23:00 89 33 110/59 (76) 96 NIV Bilevel 30.00 09/20/17 22:36 NIV Bilevel 30.00 09/20/17 22:32 85 28 92 30.00 09/20/17 22:00 89 27 105/56 (72) 93 Vapotherm 40.00 30.00 09/20/17 21:00 101 22 122/66 (84) 95 Vapotherm 40.00 30.00 09/20/17 20:00 101 21 112/80 (91) 96 Vapotherm 40.00 30.00 09/20/17 19:30 95 Vapotherm 30.00 40 09/20/17 19:02 100 09/20/17 19:00 99.2 97 26 100/50 (67) 92 Vapotherm 40.00 30.00 09/20/17 18:46 94 Vapotherm 30.00 40 09/20/17 18:00 86 26 120/67 (84) 93 Vapotherm 40.00 30.00 I & O 09/21/17 07:00 Intake Total 1700 ml Output Total 1240 ml Balance 460 ml General Appearance: WD/WN, Mild Distress (CONFUSION) HEENT: PERRL/EOMI Neck: Full Range of Motion, Supple Respiratory: Chest Non Tender, Crackles, Decreased Breath Sounds Cardiovascular: Tachycardia Capillary Refill: Less Than 3 Seconds Gastrointestinal: normal bowel sounds, non tender, soft, no organomegaly Extremity: Pedal Edema Neurologic/Psychiatric: Alert, Disoriented x3 Skin: Warm/Dry Lymphatic: No Adenopathy Results Lab Laboratory Tests 09/20/17 03:30 09/21/17 03:15 Assessment/Plan Assessment/Plan Acute respiratory failure -Pt is doing better Pneumonia with Helophilus - Zosyn Hypernatremia -D5W at 50cc/hr -monitor -Hold lasix UTI with Ecoli Acute Renal Failure - improved -Monitor Chronic Neutropenia 232 Critical Care: Critically Ill Patient FORTUNATO BARR DO Sep 21, 2017 17:08
[2017-09-22] VITALS (7 sets, daily range): BP systolic 107–132; BP diastolic 58–70
[2017-09-22] MEDS: oxyCODONE/APAP 5/325MG (PERCOCET 5) TABLET PO PRN (02:56)
[2017-09-22] MEDS: PIPERACILLIN SODIUM/TAZOBACTAM 4.5 GM in NS (IVPB) 100 ML IV SCH ×3 (05:05→21:06)
[2017-09-22] MEDS: inSUlin (REGULAR) HUMAN 1 UNIT/0.01 ML (CHARGE PER UNIT) SC SCH ×4 (05:51→20:49)
[2017-09-22] MEDS: LEVOTHYROXINE 75 MCG (LEVOTHROID) TABLET PO SCH (05:51)
[2017-09-22 06:21] LABS: BASOPHILS % (AUTO) 0 % (0-10); EOSINOPHILS % (AUTO) 1 % (0-10); HEMATOCRIT 29 % (35-52); LYMPHOCYTES # (AUTO) 0.6 X 10^3 (1.0-4.0); LYMPHOCYTES % (AUTO) 21 % (12-44); MEAN CORPUSCULAR HEMOGLOBIN 33 PG (25-34); MEAN CORPUSCULAR HGB CONC 31 G/DL (32-36); MEAN CORPUSCULAR VOLUME 106 FL (80-99); MEAN PLATELET VOLUME 10.5 FL (7.4-10.4); MONOCYTES # (AUTO) 0.3 X 10^3 (0.0-1.0); MONOCYTES % (AUTO) 9 % (0-12); NEUTROPHILS # (AUTO) 1.8 X 10^3 (1.8-7.8); NEUTROPHILS % (AUTO) 69 % (42-75); PLATELET COUNT 130 10^3/uL (130-400); RED BLOOD COUNT 2.71 10^6/uL (4.35-5.85); RED CELL DISTRIBUTION WIDTH 14.5 % (10.0-14.5); WHITE BLOOD COUNT 2.7 10^3/uL (4.3-11.0)
[2017-09-22] MEDS: RT-ALBUTEROL/IPRATROPIUM 3 ML (DUONEB) VIAL INH SCH ×4 (06:58→18:49)
[2017-09-22 07:00] LABS: BUN/CREATININE RATIO 19; CALCIUM 7.6 MG/DL (8.5-10.1); CARBON DIOXIDE 32 MMOL/L (21-32); CHLORIDE 102 MMOL/L (98-107); CREATININE SERUM 0.91 MG/DL (0.60-1.30); GFR ESTIMATED > 60; GLUCOSE 124 MG/DL (70-105); MAGNESIUM 1.9 MG/DL (1.8-2.4); PHOSPHORUS 2.7 MG/DL (2.3-4.7); POTASSIUM 3.5 MMOL/L (3.6-5.0); SODIUM 140 MMOL/L (135-145)
--- NOTE | 2017-09-22 08:57 | Progress Note (SOAP) ---
Subjective Review of Systems PT CONFUSED, WEAK, HAS BEEN GRABBING AT ITEMS Objective Exam Vital Signs Date Time Temp Pulse Resp B/P (MAP) Pulse Ox O2 Delivery O2 Flow Rate FiO2 09/22/17 06:58 34 30.00 09/22/17 04:40 97.7 77 23 131/62 (85) 96 Vapotherm 35.00 20.00 09/22/17 03:02 25 30.00 09/22/17 00:13 30 30.00 09/22/17 00:05 98.9 90 22 117/58 (77) 95 Vapotherm 35.00 20.00 09/21/17 22:52 81 28 94 30.00 09/21/17 21:20 93 Vapotherm 20.00 35 09/21/17 20:30 97.8 83 18 117/56 (76) 94 Vapotherm 35.00 20.00 09/21/17 20:05 95 Vapotherm 20.00 35 09/21/17 17:00 89 31 109/49 (69) 93 Vapotherm 30.00 20.00 09/21/17 16:26 93 Vapotherm 20.00 30 09/21/17 16:25 98.5 Vapotherm 30.00 20.00 09/21/17 16:00 90 27 109/60 (76) 96 Vapotherm 30.00 20.00 09/21/17 15:11 94 Vapotherm 20.00 35 09/21/17 15:00 83 31 110/50 (70) 94 Vapotherm 30.00 20.00 09/21/17 14:00 85 29 119/63 (81) 96 Vapotherm 30.00 20.00 09/21/17 13:00 81 09/21/17 13:00 81 29 129/65 (86) 95 Vapotherm 30.00 20.00 09/21/17 12:13 71 96 30 09/21/17 12:05 95 Vapotherm 30.00 40 09/21/17 12:00 Vapotherm 30.00 20.00 09/21/17 11:00 80 27 122/60 (80) 92 Vapotherm 30.00 20.00 09/21/17 10:38 Vapotherm 30.00 20.00 09/21/17 10:37 96 Vapotherm 25.00 35 09/21/17 10:00 78 25 124/68 (86) 97 Vapotherm 40.00 30.00 09/21/17 09:00 80 24 123/106 (112) 97 Vapotherm 40.00 30.00 I & O 09/22/17 07:00 Intake Total 1690 ml Output Total 1725 ml Balance -35 ml Capillary Refill : Less Than 3 SecondsLess Than 3 Seconds Results Lab Laboratory Tests 09/21/17 11:39: Glucometer 190H 09/21/17 16:13: Glucometer 141H 09/21/17 21:03: Glucometer 156H 09/22/17 05:40: Glucometer 165H 09/22/17 06:11: White Blood Count 2.7L, Red Blood Count 2.71L, Hemoglobin 9.0L, Hematocrit 29L, Mean Corpuscular Volume 106H, Mean Corpuscular Hemoglobin 33, Mean Corpuscular Hemoglobin Concent 31L, Red Cell Distribution Width 14.5, Platelet Count 130, Mean Platelet Volume 10.5H, Neutrophils (%) (Auto) 69, Lymphocytes (%) (Auto) 21 , Monocytes (%) (Auto) 9, Eosinophils (%) (Auto) 1, Basophils (%) (Auto) 0, Neutrophils # (Auto) 1.8, Lymphocytes # (Auto) 0.6L, Monocytes # (Auto) 0.3, Eosinophils # (Auto) 0.0, Basophils # (Auto) 0.0, Sodium Level 140, Potassium Level 3.5L, Chloride Level 102, Carbon Dioxide Level 32, Anion Gap 6, Blood Urea Nitrogen 17, Creatinine 0.91, Estimat Glomerular Filtration Rate > 60, BUN/ Creatinine Ratio 19, Glucose Level 124H, Calcium Level 7.6L, Phosphorus Level 2.7, Magnesium Level 1.9 Microbiology 09/13/17 Blood Culture - Final, Complete No growth 09/17/17 Gram Stain - Final, Resulted 09/17/17 Bronchial Culture - Final, Resulted Normal roddy Yeast species 09/17/17 Fungal Culture - Preliminary, Resulted Mary albicans Mary tropicalis 09/11/17 Urine Culture - Final, Complete Escherichia coli Assessment/Plan Assessment/Plan Assess & Plan/Chief Complaint RESPIRATORY FAILURE INFLUENZA PNEUMONIA DEHYDRATION ACUTE RENAL INSUFFICIENCY URINARY TRACT INFECTION CHRONIC DEPRESSION CHRONIC NEUTROPENIA WITH WHITE COUNT NORMAL, BUT ELEVATED FOR THIS PATIENT. INFLUENZA AND PNEUMONIA - PT EXTUBATED YESTERDAY - NOW ON VAPOTHERM - - CHEST XRAY IMPROVED - CONTINUE WITH ANTIBIOTICS - MEDICATION ADJUSTED BY DR. BARR HAEMOPHILUS INFLUENZAE AND ECOLI AND INFLUENZA A - CLOSELY MONITOR SYMPTOMS. MONITOR SERIAL CHEST XRAYS, MAT PROTOCOL. DEHYDRATION - IV FLUIDS FOR HYDRATION ACUTE RENAL INSUFFICIENCY -IMPROVED WITH HYDRATION - PT TO CONTINUE WITH IV FLUIDS, MONITOR RENAL FUNCTION WITH SERIAL LABS. URINARY TRACT INFECTION - ON IV ANTIBIOTICS. CHRONIC DEPRESSION - AND HISTORY OF SCHIZOPHRENIFORM DISORDER - PT ON ZYPREXA SERIALLY - THIS HAS BEEN HELD FOR A WEEK - WILL RESTART AT TID TODAY DUE TO HER SYMPTOMS, MAY NEED TO BE DECREASED TO ONE TIME A DAY ON FRIDAY. NEUTROPENIA - RESOLVED AFTER GRANIX. SHE WILL NEED A FEW WEEKS A SKILLED NURSING FOR SKILLED THERAPY FOR RECOVERY PRIOR TO GOING HOME. FAMILY H INDICATED THAT THEY WOULD PREFER [facility] ON DISCHARGE. Clinical Quality Measures Admission Status Admission Dx INFLUENZA PNEUMONIA DEHYDRATION ACUTE RENAL INSUFFICIENCY URINARY TRACT INFECTION CHRONIC DEPRESSION CHRONIC NEUTROPENIA WITH WHITE COUNT NORMAL, BUT ELEVATED FOR THIS PATIENT. DVT/VTE Risk/Contraindication: Risk Factor Score Per Nursin RFS Level Per Nursing on Admit: 4+=Very High ORTEGA PIERRE MD Sep 22, 2017 08:57
[2017-09-22] MEDS ORDERED: fluCOnazole (DIFLUCAN) 100 MG TAB PO NR (09:00)
[2017-09-22] MEDS: PANTOPRAZOLE 40 MG/10 ML (PROTONIX) VIAL IV SCH (09:05)
[2017-09-22] MEDS: methylPREDNISolone 40 MG/ML (Solu-MEDROL) VIAL IV SCH ×2 (09:05→20:49)
[2017-09-22] MEDS: meTOprolol TARTRATE 25 MG (LOPRESSOR) TABLET PO SCH ×2 (09:09→20:48)
[2017-09-22] MEDS: FLUoxetine HCL 20 MG (PROzac) CAP PO SCH (09:10)
[2017-09-22] MEDS: ACYCLOVIR 400 MG TABLET (ZOVIRAX) PO SCH (09:10)
[2017-09-22] MEDS: MENTHOL/ZINC OXIDE (CALMOSEPTINE) 113 GM TUBE TOP SCH ×2 (09:12→20:49)
[2017-09-22] MEDS: OLANZapine 2.5 MG (ZyPREXA) TAB PO SCH ×3 (09:12→20:48)
[2017-09-22] MEDS: LETROZOLE 2.5 MG (FEMARA) TAB PO SCH (09:13)
--- NOTE | 2017-09-22 09:44 | Speech Therapy Daily Note ---
Speech Daily Progress Note Subjective Date Seen by Provider: Sep 22, 2017 Time Seen by Provider: 09:15 The patient was seated upright in bed upon entrance. The patient recently completed her breakfast and stated swallowing with "fine, it was just too much food." The patient denied signs/symptoms of aspiration with any consistency she has consumed. Objective Thin Liquids: The patient was agreeable to consume thin liquids for the clinician since she recently completed her morning meal. The patient did not demonstrate any signs/symptoms of aspiration with multiple, large consecutive straw drinks of thin liquid. The patient's vocal quality remained clear throughout bolus trials. At this time, the speech pathology continues to recommend a regular diet with thin liquids. Assessment Assessment Current Status: Good Progress Treatment Plan Continue Plan of Care Speech Narcotics And/Or Vice Detective Goals Narcotics And/Or Vice Detective Goals 1. The patient will tolerate a diet of the least restrictive consistency without signs/symptoms of aspiration or laryngeal penetration. Time Frame: Three Days Speech-Plan Treatment Plan Speech Therapy Treatment Plan: Discontinue ST, Goals Met The patient has met all goals placed by speech pathology. Due to this, speech pathology will sign off. Treatment Duration: Sep 22, 2017 Frequency: 3 times per week Estimated Hrs Per Day: .25 hour per day Rehab Potential: Guarded Safety Risks/Education Teaching Recipient: Patient Teaching Methods: Discussion Response to Teaching: Verbalize Understanding Education Topics Provided: Results, Recommendations, Plan of Care Time Speech Therapy Time In: 09:15 Speech Therapy Time Out: 09:23 Total Billed Time: 8 Billed Treatment Time 1, YESENIA PILLAI Sep 22, 2017 09:44
--- NOTE | 2017-09-22 13:33 | Physical Therapy Daily Note ---
PT Daily Note-Current Subjective Patient agrees to PT. Patient reports she just woke up. Family present. Pain Numeric Pain Scale: 0-No Pain Location: No Pain Reported Mental Status Patient Orientation: Person, Time, Situation Attachments: Oxygen (vapotherm), Sauer Catheter, IV Transfers Functional [place] Measure 0=Not Assessed/NA 4=Minimal Assistance 1=Total Assistance 5=Supervision or Setup 2=Maximal Assistance 6=Modified [place] 3=Moderate Assistance 7=Complete IndependenceIRFPAI Quality Coding Scale 6 Independent with activity with or without an assistive device 5 Patient requires set up or clean up by helper. Patient completes activity by themselves 4 Supervision or touching assist (CGA). [place] provide cues , steadying assist 3 The helper provides less than half the effort to complete the activity 2 The helper provides more than half the effort to complete the activity 1 Dependent. The helper does all the effort to complete an activity 7 Patient refused to complete or attempt activity 9 The patient did not perform the activity before the current illness or injury 88 Not attempted due to Medical conditions or safety concerns Transfers (B, C, W/C) (FIM): 3 Scootin Rollin Supine to/from Sit: 5 Sit to/from Stand: 3 Bed to/from Chair: 3 mod assist with sit to stand and transfer to chair taking 5 steps. Patient is retropulsive in stand and with gait/transfer. Weight Bearing Right Lower Extremity: Right Full Weight Bearing Left Lower Extremity: Left Full Weight Bearing Gait Training Gait (FIM): 1 Distance (FIM): 1=up to 49 ft Distance: 5 steps Gait Level of Assist: 3 Gait Persons Needed: 1 retropulsive with sit to stand and patient taking 5 steps to chair Exercises Seated Therapy Exercises: Ankle pumps, Long arc quads, Hip flexion Seated Reps: 15 (bilaterally) Assessment Patient ceased treatment to order lunch. Patient is up in recliner with needs met. PT will increase activity as tolerated by patient. PT Short Term Goals Short Term Goals Time Frame: Oct 03, 2017 Gait (FIM): 2 Distance (FIM): 4=180-55 ft Gait Distance Comment: 100' Gait Level of Assist: 4 Gait Assistive Device: FWW PT Fci Goals Fci Goals PT Fci Goals Time Frame: Oct 18, 2017 Transfers (B,C,W/C) (FIM): 6 Gait (FIM): 6 Gait distance (FIM): 3=150 ft Distance: 300' Gait Level of Assist: 6 Gait Assistive Device: None, FWW PT Plan Treatment/Plan Treatment Plan: Continue Plan of Care Treatment Plan: Bed Mobility, Education, Functional Activity Sanchez, Functional Strength, Gait, Safety, Therapeutic Exercise, Transfers Treatment Duration: Oct 18, 2017 Frequency: 6 times per week Estimated Hrs Per Day: .5 hour per day Patient and/or Family Agrees t: Yes Time/GCodes Time In: 1316 Time Out: 1328 Total Billed Treatment Time: 13 Total Billed Treatment 1 visit FA 12 min HARSHA JACKSON PT Sep 22, 2017 13:33
[2017-09-22] MEDS: D5W 1000 ML IV SOLUTION 1,000 ML IV SCH (16:10)
--- NOTE | 2017-09-22 16:41 | Occupational Ther Daily Note ---
OT Current Status-Daily Note Subjective No pain reported. Appearance Pt. in bed. OT and nursing assist pt. to bathe. Mental Status/Objective Patient Orientation: Unable to Assess Functional [place] Measure 0=Not Assessed/NA 4=Minimal Assistance 1=Total Assistance 5=Supervision or Setup 2=Maximal Assistance 6=Modified [place] 3=Moderate Assistance 7=Complete [place] ADL-Treatment Bathing (FIM): 2 (Pt. in bed. Pt. incontinent of bowel. OT and nursing assisted to wash pt. in nadja area and bilateral LE/back. Pt. able to wash face and upper body, arms.) Lower Body Dressing (FIM): 1 Toileting (FIM): 1 Transfers (B, C, W/C) (FIM): 3 (Mod assist supine-sit. Mod assist sit-stand and transfer to chair.) Education OT Patient Education: Correct positioning, Modified ADL techniques, Progress toward Goal/Update tx plan, Purpose of tx/functional activities, Reviewed precautions, Rehab process, Transfer techniques Teaching Recipient: Patient Teaching Methods: Demonstration, Discussion Response to Teaching: Verbalize Understanding, Return Demonstration OT Short Term Goals Short Term Goals Time Frame: Oct 03, 2017 Eating(FIM): 5 Grooming(FIM): 4 Upper Body Dressing(FIM): 4 Additional Short Term Goals: 2-Verbalize Understanding, 3-ImproveStrength/Sanchez 1=Demonstrate adherence to instructed precautions during ADL tasks. 2=Patient will verbalize/demonstrate understanding of assistive devices/ modifications for ADL. 3=Patient will improve strength/tolerance for activity to enable patient to perform ADL's. OT Long-Term Goals Shot Bagger Goals Time Frame: Oct 10, 2017 Eating (FIM): 6 Grooming(FIM): 5 Bathing(FIM): 4 Upper Body Dressing(FIM): 5 Lower Body Dressing(FIM): 5 Toilet/Commode Transfer(FIM): 5 Additional Goals: 2-Verbalize Understanding, 3-ImproveStrength/Sanchez 1=Demonstrate adherence to instructed precautions during ADL tasks. 2=Patient will verbalize/demonstrate understanding of assistive devices/ modifications for ADL. 3=Patient will improve strength/tolerance for activity to enable patient to perform ADL's. OT Education/Plan Problem List/Assessment Assessment: Decreased Activ Tolerance, Dependent Transfers, Impaired Bed Mobility, Impaired Cognition, Impaired Funct Balance, Impaired I ADL's, Impaired Self-Care Skills Pt demonstrates decreased activity tolerance, mobility, strength, and ADL functioning. Pt to benefit from skilled OT intervention for ADL training, transfers, strengthening, and safety education to improve level of independence and allow safe discharge plan. Discharge Recommendations Plan/Recommendations: Continue POC Target Placement To be determined. Treatment Plan/Plan of Care Treatment,Training & Education: Yes Patient would benefit from OT for education, treatment and training to promote independence in ADL's, mobility, safety and/or upper extremity function for ADL' s. Plan of Care: ADL Retraining, Functional Mobility, UE Funct Exercise/Act Treatment Duration: Oct 10, 2017 Frequency: 5 times per week Estimated Hrs Per Day: .25 hour per day Agreement: Yes Rehab Potential: Fair Time/GCodes Start Time: 10:20 Stop Time: 10:30 Total Time Billed (hr/min): 10 Billed Treatment Time 1, ADL x 10minutes LAUREN BOWEN OT Sep 22, 2017 16:41
[2017-09-23 00:18] VITALS: BP 138/65
[2017-09-23 04:00] VITALS: BP 145/70
[2017-09-23] MEDS: PIPERACILLIN SODIUM/TAZOBACTAM 4.5 GM in NS (IVPB) 100 ML IV SCH (05:22)
[2017-09-23] MEDS: LEVOTHYROXINE 75 MCG (LEVOTHROID) TABLET PO SCH (05:22)
[2017-09-23 05:31] LABS: BASOPHILS % (AUTO) 0 % (0-10); EOSINOPHILS % (AUTO) 0 % (0-10); HEMATOCRIT 30 % (35-52); HEMOGLOBIN 9.3 G/DL (11.5-16.0); LYMPHOCYTES # (AUTO) 0.5 X 10^3 (1.0-4.0); LYMPHOCYTES % (AUTO) 15 % (12-44); MEAN CORPUSCULAR HEMOGLOBIN 33 PG (25-34); MEAN CORPUSCULAR HGB CONC 31 G/DL (32-36); MEAN CORPUSCULAR VOLUME 106 FL (80-99); MEAN PLATELET VOLUME 10.5 FL (7.4-10.4); MONOCYTES # (AUTO) 0.3 X 10^3 (0.0-1.0); MONOCYTES % (AUTO) 9 % (0-12); NEUTROPHILS # (AUTO) 2.5 X 10^3 (1.8-7.8); NEUTROPHILS % (AUTO) 76 % (42-75); PLATELET COUNT 142 10^3/uL (130-400); RED BLOOD COUNT 2.83 10^6/uL (4.35-5.85); WHITE BLOOD COUNT 3.3 10^3/uL (4.3-11.0)
[2017-09-23 05:59] LABS: CALCIUM 7.6 MG/DL (8.5-10.1); CREATININE SERUM 0.96 MG/DL (0.60-1.30); MAGNESIUM 1.6 MG/DL (1.8-2.4); PHOSPHORUS 2.7 MG/DL (2.3-4.7); POTASSIUM 3.4 MMOL/L (3.6-5.0)
[2017-09-23] MEDS: inSUlin (REGULAR) HUMAN 1 UNIT/0.01 ML (CHARGE PER UNIT) SC SCH (06:13)
[2017-09-23] MEDS: RT-ALBUTEROL/IPRATROPIUM 3 ML (DUONEB) VIAL INH SCH (06:50)
--- NOTE | 2017-09-23 07:20 | Pulmonary Progress Note ---
Subjective Time Seen by Provider: 07:20 Subjective/Events-last exam Pt is feeling better and requiring less oxygen. Exam Exam Vital Signs Date Time Temp Pulse Resp B/P (MAP) Pulse Ox O2 Delivery O2 Flow Rate FiO2 09/23/17 06:53 92 Vapotherm 15.00 35 09/23/17 02:13 26 30.00 09/23/17 00:25 90 22 95 30.00 09/23/17 00:18 98.4 68 27 138/65 (89) 94 Vapotherm 35.00 15.00 09/22/17 20:48 Vapotherm 15.00 35 09/22/17 20:06 98.4 78 28 123/58 (79) 94 Vapotherm 35.00 15.00 09/22/17 18:49 94 Vapotherm 15.00 35 09/22/17 15:15 98.4 82 28 107/58 (74) 98 Vapotherm 35.00 20.00 09/22/17 15:01 96 Vapotherm 15.00 35 09/22/17 12:30 97.0 74 24 132/70 (90) 96 Vapotherm 35.00 15.00 09/22/17 12:00 97.0 74 20 132/70 (90) 96 Vapotherm 20.00 09/22/17 10:36 96 Vapotherm 15.00 35 09/22/17 08:30 97.4 71 28 129/63 (85) 91 Vapotherm 35.00 20.00 09/22/17 08:00 Vapotherm 20.00 I & O 09/23/17 07:00 Intake Total 1600 ml Output Total 1625 ml Balance -25 ml General Appearance: No Apparent Distress, WD/WN HEENT: PERRL/EOMI Neck: Full Range of Motion, Supple Respiratory: Chest Non Tender, Crackles, Decreased Breath Sounds Cardiovascular: Tachycardia Capillary Refill: Less Than 3 Seconds Gastrointestinal: normal bowel sounds, non tender, soft, no organomegaly Extremity: Pedal Edema Neurologic/Psychiatric: Alert, Disoriented x3 Skin: Warm/Dry Lymphatic: No Adenopathy Results Lab Laboratory Tests 09/22/17 06:11 09/23/17 05:21 Assessment/Plan Assessment/Plan Acute respiratory failure -Pt is doing better -Continue to titrate oxygen Pneumonia with Helophilus, candidiasis - Zosyn, fluconazole UTI with Ecoli Acute Renal Failure - improved -Monitor Chronic Neutropenia 232 Critical Care: Critically Ill Patient FORTUNATO BARR DO Sep 23, 2017 07:20
[2017-09-23 08:00] VITALS: BP 131/63
[2017-09-23] MEDS ORDERED: methylPREDNISolone 40 MG/ML (Solu-MEDROL) VIAL IV SCH (09:00)
[2017-09-23] MEDS ORDERED: fluCOnazole (DIFLUCAN) 100 MG TAB PO SCH (09:00)
--- NOTE | 2017-09-23 09:36 | Discharge Summary ---
Diagnosis/Chief Complaint Date of Admission Sep 11, 2017 at 12:00 Date of Discharge Reason Hospital Visit PT IS A 72 Y/O FEMALE WHO PRESENTED TO THE HOSPITAL AFTER HAVING OVER 5 DAYS OF PROGRESSIVE ILLNESS. SHE APPARENTLY STARTED TO HAVE COUGH, CONGESTION, SHORTNESS OF BREATH AND HER FAMILY TRIED TO CONVINCE HER TO COME TO THE OFFICE OR HOSPITAL EARLIER THIS WEEK, BUT SHE REFUSED UNTIL TODAY. HER DAUGHTER CALLED THE OFFICE, GOT HER AN APPT, AND THEN CANCELLED THE APPT AND TOOK HER TO THE EMERGENCY DEPARTMENT INSTEAD. SHE WAS SEEN IN THE ER AND FOUND TO HAVE PNEUMONIA, INFLUENZA A, AND URINARY TRACT INFECTION. Discharge Summary Discharge Physical Examination Allergies: Coded Allergies: No Known Drug Allergies (Verified , 09/11/17) Vitals & I&Os Vital Signs Date Time Temp Pulse Resp B/P (MAP) Pulse Ox O2 Delivery O2 Flow Rate FiO2 09/23/17 08:00 97.8 76 20 131/63 (85) 98 Vapotherm 35.00 15.00 09/23/17 06:53 35 Hospital Course Pending Labs Laboratory Tests 09/23/17 05:21: White Blood Count 3.3, Red Blood Count 2.83, Hemoglobin 9.3, Hematocrit 30, Mean Corpuscular Volume 106, Mean Corpuscular Hemoglobin 33, Mean Corpuscular Hemoglobin Concent 31, Red Cell Distribution Width 14.0, Platelet Count 142, Mean Platelet Volume 10.5, Neutrophils (%) (Auto) 76, Lymphocytes (%) (Auto) 15 , Monocytes (%) (Auto) 9, Eosinophils (%) (Auto) 0, Basophils (%) (Auto) 0, Neutrophils # (Auto) 2.5, Lymphocytes # (Auto) 0.5, Monocytes # (Auto) 0.3, Eosinophils # (Auto) 0.0, Basophils # (Auto) 0.0, Sodium Level 142, Potassium Level 3.4, Chloride Level 104, Carbon Dioxide Level 25, Anion Gap 13, Blood Urea Nitrogen 16, Creatinine 0.96, Estimat Glomerular Filtration Rate 57, BUN/ Creatinine Ratio 17, Glucose Level 171, Calcium Level 7.6, Phosphorus Level 2.7 , Magnesium Level 1.6 Discharge Instructions to patient/family Please see electronic discharge instructions given to patient. Discharge Medications Reviewed and agree with Discharge Medication list on patient's Discharge Instruction sheet Clinical Quality Measures DVT/VTE Risk/Contraindication: Risk Factor Score Per Nursin RFS Level Per Nursing on Admit: 4+=Very High ORTEGA PIERRE MD Sep 23, 2017 09:36
== END 2017-09-23 09:39 | disposition swing bed (61) | DRG 166 ==
LOC: EDUNIT# 08:57 → ER 08:59 → 4TH 12:00 → ICU 09-13 13:19 → 4TH 09-21 18:45
PROVIDERS: ADMIT Family Medicine; ATTEND Family Medicine
PROC: 5A1955Z Respiratory Ventilation, Greater than 96 Consecutive Hours (ICD-10-PCS; principal; 2017-09-15)
PROC: 0B9D8ZZ Drainage of Right Middle Lung Lobe, Via Natural or Artificial Opening Endoscopic (ICD-10-PCS; 2017-09-17)
PROC: 0BDJ8ZX Extraction of Left Lower Lung Lobe, Via Natural or Artificial Opening Endoscopic, Diagnostic (ICD-10-PCS; 2017-09-17)
PROC: 0BDD8ZX Extraction of Right Middle Lung Lobe, Via Natural or Artificial Opening Endoscopic, Diagnostic (ICD-10-PCS; 2017-09-17)
DX: J10.08 Influenza due to other identified influenza virus with other specified pneumonia (principal); J14 Pneumonia due to Hemophilus influenzae; J96.00 Acute respiratory failure, unspecified whether with hypoxia or hypercapnia; N17.9 Acute kidney failure, unspecified; E86.0 Dehydration; C90.00 Multiple myeloma not having achieved remission; N39.0 Urinary tract infection, site not specified; E87.2 Acidosis; E87.0 Hyperosmolality and hypernatremia; T17.900A Unspecified foreign body in respiratory tract, part unspecified causing asphyxiation, initial encounter; E87.8 Other disorders of electrolyte and fluid balance, not elsewhere classified; E87.70 Fluid overload, unspecified; R41.0 Disorientation, unspecified; F20.81 Schizophreniform disorder; B96.20 Unspecified Escherichia coli [E. coli] as the cause of diseases classified elsewhere; C50.912 Malignant neoplasm of unspecified site of left female breast; D70.9 Neutropenia, unspecified; N18.9 Chronic kidney disease, unspecified; E78.00 Pure hypercholesterolemia, unspecified; F41.9 Anxiety disorder, unspecified; F32.9 Major depressive disorder, single episode, unspecified; E03.9 Hypothyroidism, unspecified; K21.9 Gastro-esophageal reflux disease without esophagitis; M81.0 Age-related osteoporosis without current pathological fracture; Z94.81 Bone marrow transplant status; Z87.891 Personal history of nicotine dependence; Z92.3 Personal history of irradiation; Z92.21 Personal history of antineoplastic chemotherapy; Z79.01 Long term (current) use of anticoagulants; Z86.718 Personal history of other venous thrombosis and embolism
CPT/HCPCS: 36415; 70450; 71045; 71046; 71250; 74150; 80048; 80053; 81000; 82140; 82550; 82805; 82962; 83605; 83735; 83880; 84100; 84484; 85007; 85025; 85027; 87040; 87070; 87081; 87088; 87101; 87106; 87116; 87186; 87205; 87804; 88112; 88305; 88312; 93005; 94002; 94003; 94640; 94660; 94760; 94799; 96361; 96374

== ENCOUNTER 2017-09-23 09:48 | Inpatient (IN) | payer MEDICARE, OTHER ==
[~2017-09-23] VITALS: Ht 152.4 cm; Wt 69.2 kg
[~2017-09-23 09:48] MED LIST changes: +ACETAMINOPHEN 500 MG TAB (TYLENOL) PO PRN; +ASPI-983 PO; +CALC-6 PO; +LOSA50TA36 PO; +MULT1TAB69 PO; +NIAC500T24 PO; +PANTOPRAZOLE 40 MG/10 ML (PROTONIX) VIAL IV SCH; +PATIENT MAY USE OWN MEDS, ALL MC SCH; +morphine INJ 4 MG/ML 1 ML (VIAL/SYRINGE) IVP PRN; +oxyCODONE/APAP 5/325MG (PERCOCET 5) TABLET PO PRN
[2017-09-23] MEDS ORDERED: FLUCONAZOLE 100 MG/50 ML 50 ML IV NR (10:03)
[2017-09-23] MEDS ORDERED: RT-ALBUTEROL/IPRATROPIUM 3 ML (DUONEB) VIAL INH SCH ×2 (11:00→14:00)
[2017-09-23] MEDS: FLUoxetine HCL 20 MG (PROzac) CAP PO SCH (11:13)
[2017-09-23] MEDS: ACYCLOVIR 400 MG TABLET (ZOVIRAX) PO SCH (11:13)
[2017-09-23] MEDS: inSUlin (REGULAR) HUMAN 1 UNIT/0.01 ML (CHARGE PER UNIT) SC SCH ×3 (11:23→20:47)
--- NOTE | 2017-09-23 11:40 | Occupational Therapy Eval ---
OT Evaluation-General/PLF Medical Diagnosis Admission Date Sep 23, 2017 at 09:48 Medical Diagnosis: Pneumonia Onset Date: Sep 11, 2017 Therapy Diagnosis Therapy Diagnosis: Weakness Height/Weight Height (Feet): 5 Height (Inches): 0.00 Weight (Pounds): 170 Weight (Ounces): 4.0 Weight Bear Status Weight Bearing Restriction: Weight Bearing/Tolerated Referral Physician: Dr. Robbins Referral Reason: Activity Tolerance, Self Care, Evaluation/Treatment, Strengthening/ROM Medical History Additional Medical History Multiple myeloma, depression Reviewed History: Yes Social History Home: Single Level Current Living Status: Spouse Entry Into Home: Stairs With Railing Steps Into Home: 1 ADL-Prior Level of Function ADL PLOF Comments Pt. was independent with basic self care skills, cooking, cleaning, and driving previous to hospitalization. DME/Equipment Comments Pt. has a walker, wheelchair, and cane. Drive Self: Yes OT Current Status Subjective Pt. states that she is feeling better today. Appearance Pt. up in chair. Agrees to work with OT. Mental Status/Objective Patient Orientation: Person, Place Attachments: Sauer Catheter, IV Current Glasses/Contacts: Yes Hand Dominance: Right Upper Extremity ROM WFL bilateral UE. ADL-Treatment Functional [place] Measure 0=Not Assessed/NA 4=Minimal Assistance 1=Total Assistance 5=Supervision or Setup 2=Maximal Assistance 6=Modified [place] 3=Moderate Assistance 7=Complete IndependenceIRFPAI Quality Coding Scale 6 Independent with activity with or without an assistive device 5 Patient requires set up or clean up by helper. Patient completes activity by themselves 4 Supervision or touching assist (CGA). [place] provide cues , steadying assist 3 The helper provides less than half the effort to complete the activity 2 The helper provides more than half the effort to complete the activity 1 Dependent. The helper does all the effort to complete an activity 7 Patient refused to complete or attempt activity 9 The patient did not perform the activity before the current illness or injury 88 Not attempted due to Medical conditions or safety concerns Grooming (FIM): 4 (Min assist to thoroughly brush hair.) Lower Body Dressing (FIM): 5 (SBA at chair level to doff/don socks.) Transfers (B, C, W/C) (FIM): 4 (Min assist to stand out of chair.) Pt. states that she was already cleaned up this morning by nursing. OT did notice dried BM on catheter and bottom area. OT washed this and cleansed nadja area while pt. in stance. Pt. states, "I haven't been able to clean myself well." Pt. was able to doff/don socks while seated in chair. Requires min assist to stand out of chair and to balance while OT washes rear nadja area. Pt. is able to brush her hair. Pt. is more able to give information today and more aware of surroundings. All needs met in room. Education OT Patient Education: Correct positioning, Exercise program, Modified ADL techniques, Progress toward Goal/Update tx plan, Purpose of tx/functional activities, Reviewed precautions, Rehab process, Transfer techniques Teaching Recipient: Patient Teaching Methods: Demonstration Response to Teaching: Verbalize Understanding, Return Demonstration OT Short Term Goals Short Term Goals Time Frame: Sep 30, 2017 Eating(FIM): 5 Grooming(FIM): 5 Bathing(FIM): 5 Upper Body Dressing(FIM): 5 Lower Body Dressing(FIM): 5 Toileting(FIM): 5 Transfers (B,C,W/C) (FIM): 5 Toilet/Commode Transfer(FIM): 5 Shower Transfer(FIM): 5 Additional Short Term Goals: 1-Demonstrate ADL Tasks, 2-Verbalize Understanding , 3-ImproveStrength/Sanchez 1=Demonstrate adherence to instructed precautions during ADL tasks. 2=Patient will verbalize/demonstrate understanding of assistive devices/ modifications for ADL. 3=Patient will improve strength/tolerance for activity to enable patient to perform ADL's. OT Keno Dealer Goals Fdc Goals Time Frame: Oct 07, 2017 Eating (FIM): 6 Eating (QC): 6 Groomin Oral Hygiene (QC): 6 Bathing(FIM): 5 Upper Body Dressing(FIM): 6 Lower Body Dressing(FIM): 6 Toileting(FIM): 6 Toileting Hygiene (QC): 6 Transfers (B,C,W/C) (FIM): 6 Toilet/Commode Transfer(FIM): 6 Toilet/Commode Transfer (QC): 6 Shower Transfer(FIM): 5 Additional Goals: 1-Demonstrate ADL Tasks, 2-Verbalize Understanding, 3- ImproveStrength/Sanchez 1=Demonstrate adherence to instructed precautions during ADL tasks. 2=Patient will verbalize/demonstrate understanding of assistive devices/ modifications for ADL. 3=Patient will improve strength/tolerance for activity to enable patient to perform ADL's. OT Education/Plan Problem List/Assessment Assessment: Decreased Activ Tolerance, Decreased UE Strength, Dependent Transfers, Impaired Bed Mobility, Impaired Funct Balance, Impaired I ADL's, Impaired Self-Care Skills Discharge Recommendations Plan/Recommendations: Continue POC Therapy D/C Recommendations: Home w/ Family Support, Occupational Therapy Home Care Treatment Plan/Plan of Care Treatment,Training & Education: Yes Patient would benefit from OT for education, treatment and training to promote independence in ADL's, mobility, safety and/or upper extremity function for ADL' s. Plan of Care: ADL Retraining, Functional Mobility, UE Funct Exercise/Act Treatment Duration: Oct 07, 2017 Frequency: 5 times per week Estimated Hrs Per Day: .5 hour per day Agreement: Yes Rehab Potential: Good Time/GCodes Start Time: 11:00 Stop Time: 11:25 Total Time Billed (hr/min): 25 Billed Treatment Time 1, EVM x 10minutes, ADL x 15minutes LAUREN BOWEN OT Sep 23, 2017 11:40
--- NOTE | 2017-09-23 11:42 | Physical Therapy Evaluation ---
PT Evaluation-General Medical Diagnosis Admission Date Sep 23, 2017 at 09:48 Medical Diagnosis: pneumonia/leukopenia Onset Date: Sep 11, 2017 Therapy Diagnosis Therapy Diagnosis: generalized weakness/debility Height/Weight Height (Feet): 5 Height (Inches): 0.00 Weight (Pounds): 170 Weight (Ounces): 4.0 Precautions Precautions/Isolations: Fall Prevention, Standard Precautions Weight Bear Status Right Lower Extremity: Right Full Weight Bearing Left Lower Extremity: Left Full Weight Bearing Referral Physician: It[place] Reason for Referral: Evaluation/Treatment Medical History Additional Medical History multiple melanoma Current History SWB status Reviewed History: Yes Social History Home: Single Level Current Living Status: Spouse Prior/Core FIM Prior Level of Function Functional [place] Measure 0=Not Assessed/NA 4=Minimal Assistance 1=Total Assistance 5=Supervision or Setup 2=Maximal Assistance 6=Modified [place] 3=Moderate Assistance 7=Complete [place] Bed Mobility: 7 Transfers (B,C,W/C) (FIM): 7 Gait: 7 PT Evaluation-Current Subjective Patient agrees to PT. Pain Numeric Pain Scale: 0-No Pain Location: No Pain Reported Objective Patient Orientation: Person, Time, Situation Attachments: Oxygen, Sauer Catheter, IV ROM/Strength ROM Lower Extremities bilateral LE WNL Strenght Lower Extremities right knee flexion/extension 3/5; hip flexion 3/5; DF/PF 3/5 left knee flexion/extension 3/5; hip flexion 3/5; DF/PF 3/5 Integumentary/Posture Integumentary refer to nursing notes Bowel Incontinence: Yes Bladder Incontinence: Sauer Cath Posture WFL Neuromuscular (Tone, Coordination, Reflexes) slightly diminished coordination due to weakness Sensory Vision: Functional Hearing: Functional Sensation Right Lower Extremit: Intact Sensation Left Lower Extremity: Intact Transfers Functional [place] Measure 0=Not Assessed/NA 4=Minimal Assistance 1=Total Assistance 5=Supervision or Setup 2=Maximal Assistance 6=Modified [place] 3=Moderate Assistance 7=Complete [place] Transfers (B, C, W/C) (FIM): 4 Scootin Rollin Supine to/from Sit: 5 Sit to/from Stand: 4 Sit to Lying (QC): 5 Lying to Sitting/Side of Bed(Q: 5 Sit to Stand (QC): 4 Chair/Mmg-ux-Mqerr Xfer(QC): 4 Gait Does the Patient Walk?: Yes Mode of Locomotion: Walk Anticipated Mode of Locomotion: Walk Gait (FIM): 1 Distance (FIM): 1=up to 49 ft Distance: 45' x 2 Gait Level of Assist: 4 Gait Persons Needed: 1 Gait Assistive Device: FWW Comments/Gait Description slow, steady, functional gait sequence Balance Sitting Static: Normal Sitting Dynamic: Normal Standing Static: Fair Standing Dynamic: Fair Treatment Bilateral LE exercises in supine and sit 15 reps each AP, QS, HS, abd/add, SLR ( AAROM); seated LAQ 25 reps x 2 sets bilaterally Assessment/Needs 72 y.o. female, will benefit from skilled PT to address functional strength and mobility to improve current LOF and to safely return to home with family at maximum LOF. Rehab Potential: Fair PT Usp Goals Boring And Filling Machine Operator Goals PT Boring And Filling Machine Operator Goals Time Frame: Oct 17, 2017 Transfers (B,C,W/C) (FIM): 6 Sit to Lying (QC): 6 Lying-Sitting on Side/Bed(QC): 6 Sit to Stand (QC): 6 Rollin Chair/Hbg-yo-Xufdz Xfer(QC): 6 Does the Patient Walk: Yes Gait (FIM): 6 Gait distance (FIM): 3=150 ft Distance: 300' Walk 50ft with 2 Turns (QC): 6 Walk 150 ft (QC): 6 Gait Level of Assist: 6 Gait Assistive Device: None, FWW PT Plan Problem List Problem List: Activity Tolerance, Functional Strength, Balance, Gait Treatment/Plan Treatment Plan: Continue Plan of Care Treatment Plan: Bed Mobility, Education, Functional Activity Sanchez, Functional Strength, Gait, Safety, Therapeutic Exercise, Transfers Treatment Duration: Oct 17, 2017 Frequency: 11 times per week Estimated Hrs Per Day: .5 hour per day Patient and/or Family Agrees t: Yes Discharge Recommendations Therapy D/C Recommendations: Home w/ Family Support Time/GCodes Time In: 951 Time Out: 1014 Total Billed Treatment Time: 23 Total Billed Treatment 1 visit EVModC 8 min EX 15 min HARSHA JACKSON PT Sep 23, 2017 11:42
[2017-09-23] MEDS: OLANZapine 2.5 MG (ZyPREXA) TAB PO SCH ×2 (14:27→21:18)
[2017-09-23] MEDS: RT-ALBUTEROL/IPRATROPIUM 3 ML (DUONEB) VIAL INH SCH ×2 (15:17→19:54)
--- NOTE | 2017-09-23 15:59 | Physical Therapy Daily Note ---
PT Daily Note-Current Subjective Patient agrees to PT. Pain Numeric Pain Scale: 0-No Pain Location: No Pain Reported Mental Status Patient Orientation: Normal For Age Attachments: Oxygen, Sauer Catheter Transfers Functional [place] Measure 0=Not Assessed/NA 4=Minimal Assistance 1=Total Assistance 5=Supervision or Setup 2=Maximal Assistance 6=Modified [place] 3=Moderate Assistance 7=Complete IndependenceIRFPAI Quality Coding Scale 6 Independent with activity with or without an assistive device 5 Patient requires set up or clean up by helper. Patient completes activity by themselves 4 Supervision or touching assist (CGA). [place] provide cues , steadying assist 3 The helper provides less than half the effort to complete the activity 2 The helper provides more than half the effort to complete the activity 1 Dependent. The helper does all the effort to complete an activity 7 Patient refused to complete or attempt activity 9 The patient did not perform the activity before the current illness or injury 88 Not attempted due to Medical conditions or safety concerns Transfers (B, C, W/C) (FIM): 4 Scootin Roll Left to Right (QC): 5 Supine to/from Sit: 5 Sit to/from Stand: 4 Sit to Lying (QC): 5 Sit to Stand (QC): 4 Chair/Xsq-re-Brcby Xfer(QC): 4 Bed to/from Chair: 4 Weight Bearing Right Lower Extremity: Right Full Weight Bearing Left Lower Extremity: Left Full Weight Bearing Gait Training Does the Patient Walk?: Yes Gait (FIM): 4 Distance (FIM): 3=150 ft Distance: 150' Walk 50 ft with 2 Turns(QC): 4 Walk 150 ft (QC): 4 Gait Level of Assist: 4 Gait Persons Needed: 1 Gait Assistive Device: FWW slow, shuffle gait sequence Assessment Patient much improved with gross motor skills. PT will continue to increase activity as tolerated by patient. PT Short Term Goals Short Term Goals Transfers (B,C,W/C) (FIM): 5 PT Product Inspection Coordinator Goals Longterm Goals PT Longterm Goals Time Frame: Oct 17, 2017 Transfers (B,C,W/C) (FIM): 6 Sit to Lying (QC): 6 Lying-Sitting on Side/Bed(QC): 6 Sit to Stand (QC): 6 Rollin Chair/Ssl-cy-Fgjpl Xfer(QC): 6 Does the Patient Walk: Yes Gait (FIM): 6 Gait distance (FIM): 3=150 ft Distance: 300' Walk 50ft with 2 Turns (QC): 6 Walk 150 ft (QC): 6 Gait Level of Assist: 6 Gait Assistive Device: None, FWW PT Plan Treatment/Plan Treatment Plan: Continue Plan of Care Treatment Plan: Bed Mobility, Education, Functional Activity Sanchez, Functional Strength, Gait, Safety, Therapeutic Exercise, Transfers Treatment Duration: Oct 17, 2017 Frequency: 11 times per week Estimated Hrs Per Day: .5 hour per day Patient and/or Family Agrees t: Yes Time/GCodes Time In: 1506 Time Out: 1516 Total Billed Treatment Time: 10 Total Billed Treatment 1 visit GT 10 min HARSHA JACKSON PT Sep 23, 2017 15:59
[2017-09-23 17:55] VITALS: BP 128/58
[2017-09-23] MEDS: meTOprolol TARTRATE 25 MG (LOPRESSOR) TABLET PO SCH (21:18)
[2017-09-23] MEDS: MENTHOL/ZINC OXIDE (CALMOSEPTINE) 113 GM TUBE TOP SCH (21:18)
[2017-09-24] MEDS: LEVOTHYROXINE 75 MCG (LEVOTHROID) TABLET PO SCH (06:12)
[2017-09-24] MEDS: inSUlin (REGULAR) HUMAN 1 UNIT/0.01 ML (CHARGE PER UNIT) SC SCH ×4 (06:12→20:37)
[2017-09-24 06:15] VITALS: BP 133/60
[2017-09-24] MEDS: RT-ALBUTEROL/IPRATROPIUM 3 ML (DUONEB) VIAL INH SCH ×3 (08:30→19:50)
--- NOTE | 2017-09-24 08:37 | Progress Note (SOAP) ---
Objective Exam Vital Signs Date Time Temp Pulse Resp B/P (MAP) Pulse Ox O2 Delivery O2 Flow Rate FiO2 09/24/17 08:31 92 Nasal Cannula 1.00 09/24/17 06:15 97.9 88 17 133/60 (84) 96 Nasal Cannula 3.00 09/23/17 21:00 Nasal Cannula 3.00 09/23/17 19:54 92 Nasal Cannula 1.50 09/23/17 17:55 98.5 87 20 128/58 (81) 95 Nasal Cannula 3.00 09/23/17 15:19 94 Nasal Cannula 2.00 09/23/17 11:41 100 Nasal Cannula 3.00 I & O 09/24/17 07:00 Intake Total 1450 ml Output Total 950 ml Balance 500 ml Capillary Refill : Results Lab Laboratory Tests 09/23/17 11:23: Glucometer 120H 09/23/17 16:00: Glucometer 116H 09/23/17 20:25: Glucometer 99 09/24/17 05:58: Glucometer 96 ORTEGA PIERRE MD Sep 24, 2017 08:37
[2017-09-24] MEDS: meTOprolol TARTRATE 25 MG (LOPRESSOR) TABLET PO SCH ×2 (08:59→20:42)
[2017-09-24] MEDS: OLANZapine 2.5 MG (ZyPREXA) TAB PO SCH ×3 (08:59→20:42)
[2017-09-24] MEDS: FLUoxetine HCL 20 MG (PROzac) CAP PO SCH (08:59)
[2017-09-24] MEDS: ACYCLOVIR 400 MG TABLET (ZOVIRAX) PO SCH (08:59)
[2017-09-24] MEDS ORDERED: PANTOPRAZOLE 40 MG/10 ML (PROTONIX) VIAL IV SCH (09:00)
[2017-09-24] MEDS: MENTHOL/ZINC OXIDE (CALMOSEPTINE) 113 GM TUBE TOP SCH ×2 (09:00→20:42)
[2017-09-24] MEDS: FLUCONAZOLE 200 MG/100 ML 100 ML IV SCH (09:05)
[2017-09-24] MEDS: methylPREDNISolone 40 MG/ML (Solu-MEDROL) VIAL IV SCH (09:06)
[2017-09-24] MEDS: LETROZOLE 2.5 MG (FEMARA) TAB PO SCH (09:15)
--- NOTE | 2017-09-24 11:16 | Physical Therapy Daily Note ---
PT Daily Note-Current Subjective Patient is in bed and agrees to PT. No c/o. Pain Numeric Pain Scale: 0-No Pain Location: No Pain Reported Mental Status Patient Orientation: Normal For Age Attachments: Oxygen (1L) Transfers Functional [place] Measure 0=Not Assessed/NA 4=Minimal Assistance 1=Total Assistance 5=Supervision or Setup 2=Maximal Assistance 6=Modified [place] 3=Moderate Assistance 7=Complete IndependenceIRFPAI Quality Coding Scale 6 Independent with activity with or without an assistive device 5 Patient requires set up or clean up by helper. Patient completes activity by themselves 4 Supervision or touching assist (CGA). [place] provide cues , steadying assist 3 The helper provides less than half the effort to complete the activity 2 The helper provides more than half the effort to complete the activity 1 Dependent. The helper does all the effort to complete an activity 7 Patient refused to complete or attempt activity 9 The patient did not perform the activity before the current illness or injury 88 Not attempted due to Medical conditions or safety concerns Transfers (B, C, W/C) (FIM): 5 Scootin Roll Left to Right (QC): 5 Supine to/from Sit: 5 Sit to/from Stand: 5 Sit to Lying (QC): 5 Sit to Stand (QC): 5 Chair/Knv-bi-Tzvjl Xfer(QC): 5 Bed to/from Chair: 5 Weight Bearing Right Lower Extremity: Right Full Weight Bearing Left Lower Extremity: Left Full Weight Bearing Gait Training Does the Patient Walk?: Yes Gait (FIM): 5 Distance (FIM): 3=150 ft Distance: 200' Walk 50 ft with 2 Turns(QC): 5 Walk 150 ft (QC): 5 Gait Level of Assist: 5 Gait Assistive Device: FWW slow gait sequence with 4 standing recovery periods due to fatigue. Patient instructed to increase bilateral foot clearance for safety to prevent fall. Patient demonstrated proper technique. Exercises Seated Therapy Exercises: Ankle pumps, Long arc quads, Hip flexion Seated Reps: 25 (2 sets) Standing: Heel/toe raises, Marching Standing Reps: 15 (2 sets) Assessment Patient progressing, however, self limits. PT will increase activity as patient tolerates. PT Short Term Goals Short Term Goals Transfers (B,C,W/C) (FIM): 5 PT Mcc Goals Pharmacy Tech Goals PT Pharmacy Tech Goals Time Frame: Oct 17, 2017 Transfers (B,C,W/C) (FIM): 6 Sit to Lying (QC): 6 Lying-Sitting on Side/Bed(QC): 6 Sit to Stand (QC): 6 Rollin Chair/Yyl-yh-Kpjqu Xfer(QC): 6 Does the Patient Walk: Yes Gait (FIM): 6 Gait distance (FIM): 3=150 ft Distance: 300' Walk 50ft with 2 Turns (QC): 6 Walk 150 ft (QC): 6 Gait Level of Assist: 6 Gait Assistive Device: None, FWW PT Plan Treatment/Plan Treatment Plan: Continue Plan of Care Treatment Plan: Bed Mobility, Education, Functional Activity Sanchez, Functional Strength, Gait, Safety, Therapeutic Exercise, Transfers Treatment Duration: Oct 17, 2017 Frequency: 11 times per week Estimated Hrs Per Day: .5 hour per day Patient and/or Family Agrees t: Yes Time/GCodes Time In: 1025 Time Out: 1048 Total Billed Treatment Time: 23 Total Billed Treatment 1 visit GT 13 min EX 10 min HARSHA JACKSON PT Sep 24, 2017 11:16
[2017-09-24 11:50] VITALS: BP 133/60
[2017-09-24] MEDS ORDERED: RT-ALBUTEROL/IPRATROPIUM 3 ML (DUONEB) VIAL INH PRN (12:15)
--- NOTE | 2017-09-24 13:50 | Occupational Ther Daily Note ---
OT Current Status-Daily Note Subjective No pain reported. Appearance Pt. declines shower at this time, stating she is too tired. Agrees to spongebathe. Mental Status/Objective Patient Orientation: Person, Place Functional [place] Measure 0=Not Assessed/NA 4=Minimal Assistance 1=Total Assistance 5=Supervision or Setup 2=Maximal Assistance 6=Modified [place] 3=Moderate Assistance 7=Complete [place] ADL-Treatment Grooming (FIM): 5 (Set up to brush hair. Pt. declined brushing teeth at this time. States, "I will do it later.") Bathing (FIM): 4 (CGA in stance to wash all parts. Pt. is able to wash feet by bringing them up to her while sitting.) Lower Body Dressing (FIM): 5 (SBA to doff/don socks while seated in chair.) Transfers (B, C, W/C) (FIM): 4 (Pt. requires min assist to stand out of chair. Pt. is able to balance self in stance at walker to wash nadja area.) Education OT Patient Education: Correct positioning, Modified ADL techniques, Progress toward Goal/Update tx plan, Purpose of tx/functional activities, Reviewed precautions, Rehab process, Transfer techniques Teaching Recipient: Patient Teaching Methods: Demonstration, Discussion Response to Teaching: Verbalize Understanding, Return Demonstration OT Short Term Goals Short Term Goals Time Frame: Sep 30, 2017 Eating(FIM): 5 Grooming(FIM): 5 Bathing(FIM): 5 Upper Body Dressing(FIM): 5 Lower Body Dressing(FIM): 5 Toileting(FIM): 5 Transfers (B,C,W/C) (FIM): 5 Toilet/Commode Transfer(FIM): 5 Shower Transfer(FIM): 5 Additional Short Term Goals: 1-Demonstrate ADL Tasks, 2-Verbalize Understanding , 3-ImproveStrength/Sanchez 1=Demonstrate adherence to instructed precautions during ADL tasks. 2=Patient will verbalize/demonstrate understanding of assistive devices/ modifications for ADL. 3=Patient will improve strength/tolerance for activity to enable patient to perform ADL's. OT Halfway Goals Halfway Goals Time Frame: Oct 07, 2017 Eating (FIM): 6 Grooming(FIM): 6 Bathing(FIM): 5 Upper Body Dressing(FIM): 6 Lower Body Dressing(FIM): 6 Toileting(FIM): 6 Transfers (B,C,W/C) (FIM): 6 Toilet/Commode Transfer(FIM): 6 Shower Transfer(FIM): 5 Additional Goals: 1-Demonstrate ADL Tasks, 2-Verbalize Understanding, 3- ImproveStrength/Sanchez 1=Demonstrate adherence to instructed precautions during ADL tasks. 2=Patient will verbalize/demonstrate understanding of assistive devices/ modifications for ADL. 3=Patient will improve strength/tolerance for activity to enable patient to perform ADL's. OT Education/Plan Problem List/Assessment Assessment: Decreased Activ Tolerance, Decreased UE Strength, Impaired I ADL's , Impaired Self-Care Skills Discharge Recommendations Plan/Recommendations: Continue POC Therapy D/C Recommendations: Home w/ Family Support, Occupational Therapy Home Care Treatment Plan/Plan of Care Treatment,Training & Education: Yes Patient would benefit from OT for education, treatment and training to promote independence in ADL's, mobility, safety and/or upper extremity function for ADL' s. Plan of Care: ADL Retraining, Functional Mobility, UE Funct Exercise/Act Treatment Duration: Oct 07, 2017 Frequency: 5 times per week Estimated Hrs Per Day: .5 hour per day Agreement: Yes Rehab Potential: Fair Time/GCodes Start Time: 11:20 Stop Time: 11:35 Total Time Billed (hr/min): 15 Billed Treatment Time 1, ADL x 1 LAUREN BOWEN OT Sep 24, 2017 13:50
--- NOTE | 2017-09-24 14:01 | Physical Therapy Daily Note ---
PT Daily Note-Current Subjective Patient in recliner pre tx, agrees to PT, no complaints of pain. Patient states she has to use the restroom. Appearance Patient in recliner post tx with nurse call, phone, tray, all needs met. in the room. Mental Status Patient Orientation: Normal For Age Attachments: Oxygen Transfers Functional [place] Measure 0=Not Assessed/NA 4=Minimal Assistance 1=Total Assistance 5=Supervision or Setup 2=Maximal Assistance 6=Modified [place] 3=Moderate Assistance 7=Complete IndependenceIRFPAI Quality Coding Scale 6 Independent with activity with or without an assistive device 5 Patient requires set up or clean up by helper. Patient completes activity by themselves 4 Supervision or touching assist (CGA). [place] provide cues , steadying assist 3 The helper provides less than half the effort to complete the activity 2 The helper provides more than half the effort to complete the activity 1 Dependent. The helper does all the effort to complete an activity 7 Patient refused to complete or attempt activity 9 The patient did not perform the activity before the current illness or injury 88 Not attempted due to Medical conditions or safety concerns Transfers (B, C, W/C) (FIM): 4 Sit to/from Stand: 4 Bed to/from Chair: 4 Weight Bearing Right Lower Extremity: Right Full Weight Bearing Left Lower Extremity: Left Full Weight Bearing Gait Training Gait (FIM): 4 Distance: 200' Gait Level of Assist: 4 Gait Persons Needed: 1 Gait Assistive Device: FWW Exercises Seated Therapy Exercises: Ankle pumps, Long arc quads Seated Reps: 20 Treatments ambulation, functional strengthening, transfers. Patient did ambulate to the restroom and did have a loss of balance that required therapist assist. She then stood from the toilet herself without calling for help first and tried to turn to the sink while being unsteady. Assessment Current Status: Fair Progress Patient shows poor safety awareness and is likely to fall. PT Short Term Goals Short Term Goals Transfers (B,C,W/C) (FIM): 5 PT Shelter Goals Conditioning Machine Operator Goals PT Conditioning Machine Operator Goals Time Frame: Oct 17, 2017 Transfers (B,C,W/C) (FIM): 6 Sit to Lying (QC): 6 Lying-Sitting on Side/Bed(QC): 6 Sit to Stand (QC): 6 Rollin Chair/Wop-ee-Vdpzf Xfer(QC): 6 Does the Patient Walk: Yes Gait (FIM): 6 Gait distance (FIM): 3=150 ft Distance: 300' Walk 50ft with 2 Turns (QC): 6 Walk 150 ft (QC): 6 Gait Level of Assist: 6 Gait Assistive Device: None, FWW PT Plan Problem List Problem List: Activity Tolerance, Functional Strength, Safety, Balance, Gait, Transfer Treatment/Plan Treatment Plan: Continue Plan of Care Treatment Plan: Bed Mobility, Education, Functional Activity Sanchez, Functional Strength, Gait, Safety, Therapeutic Exercise, Transfers Treatment Duration: Oct 17, 2017 Frequency: 11 times per week Estimated Hrs Per Day: .5 hour per day Patient and/or Family Agrees t: Yes Safety Risks/Education Patient Education: Gait Training, Transfer Techniques, Safety Issues Teaching Recipient: Patient Teaching Methods: Demonstration, Discussion Response to Teaching: Reinforcement Needed Time/GCodes Time In: 1340 Time Out: 1400 Total Billed Treatment Time: 20 Total Billed Treatment 1 visit GT 20' FALLON ANDERSEN PT Sep 24, 2017 14:01
[2017-09-24 17:45] VITALS: BP 134/65
[2017-09-25] MEDS: PANTOPRAZOLE 40 MG (PROTONIX) TAB PO SCH (05:57)
[2017-09-25] MEDS: LEVOTHYROXINE 75 MCG (LEVOTHROID) TABLET PO SCH (05:57)
[2017-09-25 06:02] VITALS: BP 120/57
[2017-09-25 06:26] LABS: HEMOGLOBIN 9.9 G/DL (11.5-16.0); MEAN PLATELET VOLUME 10.6 FL (7.4-10.4); RED BLOOD COUNT 2.95 10^6/uL (4.35-5.85); RED CELL DISTRIBUTION WIDTH 14.4 % (10.0-14.5); WHITE BLOOD COUNT 3.7 10^3/uL (4.3-11.0)
[2017-09-25 06:49] LABS: ALANINE AMINOTRANSFERASE 166 U/L (0-55); ALBUMIN 2.9 GM/DL (3.2-4.5); ALKALINE PHOSPHATASE 62 U/L (40-136); BILIRUBIN,TOTAL 0.8 MG/DL (0.1-1.0); BUN/CREATININE RATIO 10; CALCIUM 8.2 MG/DL (8.5-10.1); CARBON DIOXIDE 27 MMOL/L (21-32); CHLORIDE 107 MMOL/L (98-107); CREATININE SERUM 0.88 MG/DL (0.60-1.30); GFR ESTIMATED > 60; GLUCOSE 89 MG/DL (70-105); SODIUM 144 MMOL/L (135-145); TOTAL PROTEIN 5.6 GM/DL (6.4-8.2)
[2017-09-25] MEDS: RT-ALBUTEROL/IPRATROPIUM 3 ML (DUONEB) VIAL INH SCH ×2 (06:59→21:27)
[2017-09-25] MEDS: inSUlin (REGULAR) HUMAN 1 UNIT/0.01 ML (CHARGE PER UNIT) SC SCH ×4 (07:00→20:30)
--- NOTE | 2017-09-25 07:53 | Diagnostic Imaging Report ---
EXAM: CHEST PA/LAT (2 VIEW) INDICATION: Pneumonia. COMPARISON: Chest radiograph 09/21/2017. FINDINGS: Low lung volumes. Normal heart size and central pulmonary vascularity. Increasing atelectasis or infiltrate in the right midlung. Prominence of the interstitium diffusely similar to the prior exam. No pleural effusion or pneumothorax. 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 IVC filter. Multiple compression deformities in the visualized thoracic and lumbar spine are age indeterminate. Vertebroplasty of a midthoracic vertebral body. IMPRESSION: Increasing atelectasis or infiltrate in the right midlung. Diffuse prominence of the interstitium similar to the prior exam. Dictated by: Dictated on workstation # [id number]
--- NOTE | 2017-09-25 08:22 | Progress Note (SOAP) ---
Subjective Time Seen by Provider: 08:20 Subjective/Events-last exam Patient has no complaints today. Patient on half liters of nasal oxygen. Chest x-ray looks worse. Liver enzymes slightly elevated Objective Exam Vital Signs Date Time Temp Pulse Resp B/P (MAP) Pulse Ox O2 Delivery O2 Flow Rate FiO2 09/25/17 07:00 95 Nasal Cannula 0.50 09/25/17 06:02 98.3 67 18 120/57 (78) 95 Nasal Cannula 1.00 09/24/17 21:00 Nasal Cannula 3.00 09/24/17 19:51 92 Nasal Cannula 1.00 09/24/17 17:45 99.0 76 18 134/65 (88) 95 Nasal Cannula 3.00 09/24/17 11:50 77 95 24 09/24/17 11:48 95 Nasal Cannula 1.00 09/24/17 09:00 Nasal Cannula 3.00 09/24/17 08:31 92 Nasal Cannula 1.00 I & O 09/25/17 07:00 Intake Total 2050 ml Balance 2050 ml Capillary Refill : General Appearance: No Apparent Distress, WD/WN HEENT: Normal ENT Inspection Neck: Full Range of Motion Respiratory: Chest Non Tender, No Accessory Muscle Use, No Respiratory Distress Cardiovascular: Regular Rate, Rhythm Results Lab Laboratory Tests 09/24/17 11:20: Glucometer 140H 09/24/17 15:49: Glucometer 199H 09/24/17 20:35: Glucometer 110 09/25/17 06:00: White Blood Count 3.7L, Red Blood Count 2.95L, Hemoglobin 9.9L, Hematocrit 31L, Mean Corpuscular Volume 105H, Mean Corpuscular Hemoglobin 34, Mean Corpuscular Hemoglobin Concent 32, Red Cell Distribution Width 14.4, Platelet Count 192, Mean Platelet Volume 10.6H, Sodium Level 144, Potassium Level 3.0L, Chloride Level 107, Carbon Dioxide Level 27, Anion Gap 10, Blood Urea Nitrogen 9, Creatinine 0.88, Estimat Glomerular Filtration Rate > 60, BUN/Creatinine Ratio 10, Glucose Level 89, Calcium Level 8.2L, Total Bilirubin 0.8, Aspartate Amino Transf (AST/SGOT) 40H, Alanine Aminotransferase (ALT/SGPT) 166H, Alkaline Phosphatase 62, Total Protein 5.6L, Albumin 2.9L Assessment/Plan Assessment/Plan Assess & Plan/Chief Complaint Pneumonia by chest x-ray looking worse. Liver tests slightly elevated CHARLINE LUEVANO DO Sep 25, 2017 08:22
[2017-09-25] MEDS ORDERED: KCL 10 MEQ TAB (MICRO K) PO NR (09:15)
[2017-09-25] MEDS: methylPREDNISolone 40 MG/ML (Solu-MEDROL) VIAL IV SCH (09:32)
[2017-09-25] MEDS: FLUCONAZOLE 200 MG/100 ML 100 ML IV SCH (09:32)
[2017-09-25] MEDS: OLANZapine 2.5 MG (ZyPREXA) TAB PO SCH ×3 (09:33→20:42)
[2017-09-25] MEDS: LETROZOLE 2.5 MG (FEMARA) TAB PO SCH (09:33)
[2017-09-25] MEDS: meTOprolol TARTRATE 25 MG (LOPRESSOR) TABLET PO SCH ×2 (09:33→20:42)
[2017-09-25] MEDS: FLUoxetine HCL 20 MG (PROzac) CAP PO SCH (09:33)
[2017-09-25] MEDS: ACYCLOVIR 400 MG TABLET (ZOVIRAX) PO SCH (09:33)
[2017-09-25] MEDS: MENTHOL/ZINC OXIDE (CALMOSEPTINE) 113 GM TUBE TOP SCH ×2 (09:34→20:42)
--- NOTE | 2017-09-25 11:30 | Physical Therapy Daily Note ---
PT Daily Note-Current Subjective Patient agrees to PT. No c/o Pain Numeric Pain Scale: 0-No Pain Location: No Pain Reported Mental Status Patient Orientation: Normal For Age Attachments: Oxygen (.5L) Transfers Functional [place] Measure 0=Not Assessed/NA 4=Minimal Assistance 1=Total Assistance 5=Supervision or Setup 2=Maximal Assistance 6=Modified [place] 3=Moderate Assistance 7=Complete IndependenceIRFPAI Quality Coding Scale 6 Independent with activity with or without an assistive device 5 Patient requires set up or clean up by helper. Patient completes activity by themselves 4 Supervision or touching assist (CGA). [place] provide cues , steadying assist 3 The helper provides less than half the effort to complete the activity 2 The helper provides more than half the effort to complete the activity 1 Dependent. The helper does all the effort to complete an activity 7 Patient refused to complete or attempt activity 9 The patient did not perform the activity before the current illness or injury 88 Not attempted due to Medical conditions or safety concerns Transfers (B, C, W/C) (FIM): 6 Scootin Roll Left to Right (QC): 6 Supine to/from Sit: 6 Sit to/from Stand: 6 Sit to Lying (QC): 6 Sit to Stand (QC): 6 Weight Bearing Right Lower Extremity: Right Full Weight Bearing Left Lower Extremity: Left Full Weight Bearing Gait Training Does the Patient Walk?: Yes Gait (FIM): 5 Distance (FIM): 3=150 ft Distance: 300' Walk 50 ft with 2 Turns(QC): 5 Walk 150 ft (QC): 5 Gait Level of Assist: 5 Gait Assistive Device: FWW improved foot clearance with gait Exercises Supine Ex: Ankle pumps, Quad Set, Glut sets, Heel Slides, Straight leg raise Supine Reps: 20 (bilaterally) Assessment Patient much improved with functional mobility and strength. Patient ambulate without O2 with SAO2 >90% RA. PT Short Term Goals Short Term Goals Transfers (B,C,W/C) (FIM): 5 PT Assisted Goals Teacher Lip Reading Goals PT Assisted Goals Time Frame: Oct 17, 2017 Transfers (B,C,W/C) (FIM): 6 Sit to Lying (QC): 6 Lying-Sitting on Side/Bed(QC): 6 Sit to Stand (QC): 6 Rollin Chair/Zbi-lc-Fzeck Xfer(QC): 6 Does the Patient Walk: Yes Gait (FIM): 6 Gait distance (FIM): 3=150 ft Distance: 300' Walk 50ft with 2 Turns (QC): 6 Walk 150 ft (QC): 6 Gait Level of Assist: 6 Gait Assistive Device: None, FWW PT Plan Treatment/Plan Treatment Plan: Continue Plan of Care Treatment Plan: Bed Mobility, Education, Functional Activity Sanchez, Functional Strength, Gait, Safety, Therapeutic Exercise, Transfers Treatment Duration: Oct 17, 2017 Frequency: 11 times per week Estimated Hrs Per Day: .5 hour per day Patient and/or Family Agrees t: Yes Time/GCodes Time In: 1053 Time Out: 1116 Total Billed Treatment Time: 23 Total Billed Treatment 1 visit GT 10 min EX 13 min HARSHA JACKSON PT Sep 25, 2017 11:30
--- NOTE | 2017-09-25 15:20 | Occupational Ther Daily Note ---
OT Current Status-Daily Note Subjective No pain reported. Appearance Pt. in bed. Pt. is encouraged to shower. Pt. states, "I just don't feel like taking a shower yet." Pt. does agree to spongebath. Mental Status/Objective Patient Orientation: Person, Place Functional [place] Measure 0=Not Assessed/NA 4=Minimal Assistance 1=Total Assistance 5=Supervision or Setup 2=Maximal Assistance 6=Modified [place] 3=Moderate Assistance 7=Complete [place] ADL-Treatment Grooming (FIM): 5 (Set up to brush hair.) Bathing (FIM): 5 (Pt. is able to wash all parts while seated on side of bed, and in stance with SBA.) Lower Body Dressing (FIM): 5 (Pt.is able to doff/don slipper socks with SBA. No other street clothing available.) Transfers (B, C, W/C) (FIM): 5 (Pt. is able to transfer supine to sit, sit- stand without walker, and back to supine with SBA to wash self.) Education OT Patient Education: Correct positioning, Modified ADL techniques, Progress toward Goal/Update tx plan, Purpose of tx/functional activities, Reviewed precautions, Rehab process, Transfer techniques Teaching Recipient: Patient Teaching Methods: Demonstration, Discussion Response to Teaching: Verbalize Understanding, Return Demonstration OT Short Term Goals Short Term Goals Time Frame: Sep 30, 2017 Eating(FIM): 5 Grooming(FIM): 5 Bathing(FIM): 5 Upper Body Dressing(FIM): 5 Lower Body Dressing(FIM): 5 Toileting(FIM): 5 Transfers (B,C,W/C) (FIM): 5 Toilet/Commode Transfer(FIM): 5 Shower Transfer(FIM): 5 Additional Short Term Goals: 1-Demonstrate ADL Tasks, 2-Verbalize Understanding , 3-ImproveStrength/Sanchez 1=Demonstrate adherence to instructed precautions during ADL tasks. 2=Patient will verbalize/demonstrate understanding of assistive devices/ modifications for ADL. 3=Patient will improve strength/tolerance for activity to enable patient to perform ADL's. OT Snf Goals Field Test Engineer Goals Time Frame: Oct 07, 2017 Eating (FIM): 6 Grooming(FIM): 6 Bathing(FIM): 5 Upper Body Dressing(FIM): 6 Lower Body Dressing(FIM): 6 Toileting(FIM): 6 Transfers (B,C,W/C) (FIM): 6 Toilet/Commode Transfer(FIM): 6 Shower Transfer(FIM): 5 Additional Goals: 1-Demonstrate ADL Tasks, 2-Verbalize Understanding, 3- ImproveStrength/Sanchez 1=Demonstrate adherence to instructed precautions during ADL tasks. 2=Patient will verbalize/demonstrate understanding of assistive devices/ modifications for ADL. 3=Patient will improve strength/tolerance for activity to enable patient to perform ADL's. OT Education/Plan Problem List/Assessment Assessment: Decreased Activ Tolerance, Impaired I ADL's Discharge Recommendations Plan/Recommendations: Continue POC Therapy D/C Recommendations: Home w/ Family Support, Occupational Therapy Home Care Target Placement Home with family support. Pt. states that she feels ready to go home. States that she has a lot of support at home. Treatment Plan/Plan of Care Treatment,Training & Education: Yes Patient would benefit from OT for education, treatment and training to promote independence in ADL's, mobility, safety and/or upper extremity function for ADL' s. Plan of Care: ADL Retraining, Functional Mobility, UE Funct Exercise/Act Treatment Duration: Oct 07, 2017 Frequency: 5 times per week Estimated Hrs Per Day: .5 hour per day Agreement: Yes Rehab Potential: Good Time/GCodes Start Time: 14:15 Stop Time: 14:30 Total Time Billed (hr/min): 15 Billed Treatment Time 1, ADL LAUREN BOWEN OT Sep 25, 2017 15:19
--- NOTE | 2017-09-25 15:30 | Physical Therapy Daily Note ---
PT Daily Note-Current Subjective Patient agrees to PT. Pain Numeric Pain Scale: 0-No Pain Location: No Pain Reported Mental Status Patient Orientation: Normal For Age Attachments: Oxygen (.5L) Transfers Functional [place] Measure 0=Not Assessed/NA 4=Minimal Assistance 1=Total Assistance 5=Supervision or Setup 2=Maximal Assistance 6=Modified [place] 3=Moderate Assistance 7=Complete IndependenceIRFPAI Quality Coding Scale 6 Independent with activity with or without an assistive device 5 Patient requires set up or clean up by helper. Patient completes activity by themselves 4 Supervision or touching assist (CGA). [place] provide cues , steadying assist 3 The helper provides less than half the effort to complete the activity 2 The helper provides more than half the effort to complete the activity 1 Dependent. The helper does all the effort to complete an activity 7 Patient refused to complete or attempt activity 9 The patient did not perform the activity before the current illness or injury 88 Not attempted due to Medical conditions or safety concerns Transfers (B, C, W/C) (FIM): 6 Scootin Roll Left to Right (QC): 6 Supine to/from Sit: 6 Sit to/from Stand: 6 Sit to Lying (QC): 6 Sit to Stand (QC): 6 Chair/Wjq-aw-Fmjhd Xfer(QC): 6 Bed to/from Chair: 6 Weight Bearing Right Lower Extremity: Right Full Weight Bearing Left Lower Extremity: Left Full Weight Bearing Gait Training Does the Patient Walk?: Yes Gait (FIM): 6 Distance (FIM): 3=150 ft Distance: 300' Walk 50 ft with 2 Turns(QC): 6 Walk 150 ft (QC): 6 Gait Level of Assist: 6 Gait Assistive Device: FWW safe and functional Assessment Patient SAO2 did decrease to 85% on RA after ambulation, however, recovered quickly on RA and O2 was placed on at .5L. PT to increase activity as tolerated. PT Short Term Goals Short Term Goals Transfers (B,C,W/C) (FIM): 5 PT Long-Term Goals Long-Term Goals PT Long-Term Goals Time Frame: Oct 17, 2017 Transfers (B,C,W/C) (FIM): 6 Sit to Lying (QC): 6 Lying-Sitting on Side/Bed(QC): 6 Sit to Stand (QC): 6 Rollin Chair/Dek-fc-Ratka Xfer(QC): 6 Does the Patient Walk: Yes Gait (FIM): 6 Gait distance (FIM): 3=150 ft Distance: 300' Walk 50ft with 2 Turns (QC): 6 Walk 150 ft (QC): 6 Gait Level of Assist: 6 Gait Assistive Device: None, FWW PT Plan Treatment/Plan Treatment Plan: Continue Plan of Care Treatment Plan: Bed Mobility, Education, Functional Activity Sanchez, Functional Strength, Gait, Safety, Therapeutic Exercise, Transfers Treatment Duration: Oct 17, 2017 Frequency: 11 times per week Estimated Hrs Per Day: .5 hour per day Patient and/or Family Agrees t: Yes Time/GCodes Time In: 1501 Time Out: 1511 Total Billed Treatment Time: 10 Total Billed Treatment 1 visit GT 10 min HARSHA JACKSON PT Sep 25, 2017 15:30
[2017-09-25 17:05] VITALS: BP 120/57
[2017-09-26] MEDS: PANTOPRAZOLE 40 MG (PROTONIX) TAB PO SCH (05:08)
[2017-09-26] MEDS: LEVOTHYROXINE 75 MCG (LEVOTHROID) TABLET PO SCH (05:08)
[2017-09-26 05:37] LABS: ALANINE AMINOTRANSFERASE 137 U/L (0-55); ALBUMIN 2.8 GM/DL (3.2-4.5); ALKALINE PHOSPHATASE 65 U/L (40-136); BILIRUBIN,TOTAL 0.6 MG/DL (0.1-1.0); BUN/CREATININE RATIO 13; CALCIUM 8.1 MG/DL (8.5-10.1); CARBON DIOXIDE 24 MMOL/L (21-32); CHLORIDE 112 MMOL/L (98-107); CREATININE SERUM 0.86 MG/DL (0.60-1.30); GFR ESTIMATED > 60; GLUCOSE 97 MG/DL (70-105); POTASSIUM 3.4 MMOL/L (3.6-5.0); SODIUM 143 MMOL/L (135-145); TOTAL PROTEIN 5.2 GM/DL (6.4-8.2)
[2017-09-26] MEDS: inSUlin (REGULAR) HUMAN 1 UNIT/0.01 ML (CHARGE PER UNIT) SC SCH ×4 (05:45→20:54)
[2017-09-26 05:55] VITALS: BP 136/65
--- NOTE | 2017-09-26 06:24 | Pulmonary Progress Note ---
Subjective Date Seen by Provider: Sep 25, 2017 (Late entry for 09/25/17 today is 09/26/17 ) Time Seen by Provider: 06:24 Subjective/Events-last exam pt feels and looks much improved. Exam Exam Vital Signs Date Time Temp Pulse Resp B/P (MAP) Pulse Ox O2 Delivery O2 Flow Rate FiO2 09/26/17 05:55 97.8 68 20 136/65 (88) 90 Room Air 09/25/17 21:27 90 Nasal Cannula 1.00 09/25/17 21:00 Room Air 09/25/17 17:05 98.8 80 18 120/57 (78) 94 Room Air 09/25/17 09:37 Nasal Cannula 0.50 09/25/17 07:00 95 Nasal Cannula 0.50 I & O 09/26/17 07:00 Intake Total 2072 ml Balance 2072 ml General Appearance: No Apparent Distress, WD/WN HEENT: Normal ENT Inspection Neck: Full Range of Motion Respiratory: Chest Non Tender, No Accessory Muscle Use, No Respiratory Distress Cardiovascular: Regular Rate, Rhythm Results Lab Laboratory Tests 09/25/17 06:00 09/26/17 05:00 Assessment/Plan Assessment/Plan Acute respiratory failure -Pt is doing better -Continue to titrate oxygen -PT looks and feels good CXR shows worsening -Will repeat CXR as out pt in 6-8wks Atelectasis -Increase activity -IS -SVNs Pneumonia with Helophilus, candidiasis - resolving Acute Renal Failure - improved -Monitor Chronic Neutropenia 232 FORTUNATO BARR DO Sep 26, 2017 06:24
--- NOTE | 2017-09-26 08:51 | Progress Note (SOAP) ---
Subjective Time Seen by Provider: 08:50 Subjective/Events-last exam Patient feeling better today. Patient states she's breathing better Objective Exam Vital Signs Date Time Temp Pulse Resp B/P (MAP) Pulse Ox O2 Delivery O2 Flow Rate FiO2 09/26/17 05:55 97.8 68 20 136/65 (88) 90 Room Air 09/25/17 21:27 90 Nasal Cannula 1.00 09/25/17 21:00 Room Air 09/25/17 17:05 98.8 80 18 120/57 (78) 94 Room Air 09/25/17 09:37 Nasal Cannula 0.50 I & O 09/26/17 07:00 Intake Total 2072 ml Balance 2072 ml Capillary Refill : General Appearance: No Apparent Distress, WD/WN Results Lab Laboratory Tests 09/26/17 05:00 Laboratory Tests 09/25/17 12:27: Glucometer 134H 09/25/17 15:35: Glucometer 162H 09/25/17 20:20: Glucometer 138H 09/26/17 05:00: Sodium Level 143, Potassium Level 3.4L, Chloride Level 112H, Carbon Dioxide Level 24, Anion Gap 7, Blood Urea Nitrogen 11, Creatinine 0.86, Estimat Glomerular Filtration Rate > 60, BUN/Creatinine Ratio 13, Glucose Level 97, Calcium Level 8.1L, Total Bilirubin 0.6, Aspartate Amino Transf (AST/SGOT) 30, Alanine Aminotransferase (ALT/SGPT) 137H, Alkaline Phosphatase 65, Total Protein 5.2L, Albumin 2.8L Assessment/Plan Assessment/Plan Assess & Plan/Chief Complaint Pneumonia by chest x-ray looking worse. Liver tests slightly elevated. . 09/26/17. Pneumonia. Patient feeling better CHARLINE LUEVANO DO Sep 26, 2017 08:51
[2017-09-26] MEDS ORDERED: KCL 10 MEQ TAB (MICRO K) PO NR (09:00)
[2017-09-26] MEDS: RT-ALBUTEROL/IPRATROPIUM 3 ML (DUONEB) VIAL INH SCH ×2 (09:05→20:42)
--- NOTE | 2017-09-26 09:43 | Occupational Ther Daily Note ---
OT Current Status-Daily Note Subjective Pt alert, lying in bed. Pt agreed to therapy. No c/o pain at this time. Mental Status/Objective Patient Orientation: Person, Place, Time, Situation Functional [place] Measure 0=Not Assessed/NA 4=Minimal Assistance 1=Total Assistance 5=Supervision or Setup 2=Maximal Assistance 6=Modified [place] 3=Moderate Assistance 7=Complete [place] ADL-Treatment Pt agreed to shower. Pt ambulated with FWW to bathroom. Pt transferred with supervision to toilet and completed own hygiene. Pt only has hospital gown to manipulate. Pt then transferred to shower using grabbars and shower bench. Pt doffed own socks, after shower pt stated that she had had enough and could not don socks. Pt completed shower using shower bench, grabbar and hand held shower with supervision. Pt then was able to don own hospital gown. Pt stood at sink to complete own grooming with supervision. Pt then ambulated with FWW to bed and was able to lay down without assist. After therapy, pt lying in bed with call light/phone in reach. All needs met in room. Functional [place] Measure 0=Not Assessed/NA 4=Minimal Assistance 1=Total Assistance 5=Supervision or Setup 2=Maximal Assistance 6=Modified [place] 3=Moderate Assistance 7=Complete IndependenceIRFPAI Quality Coding Scale 6 Independent with activity with or without an assistive device 5 Patient requires set up or clean up by helper. Patient completes activity by themselves 4 Supervision or touching assist (CGA). [place] provide cues , steadying assist 3 The helper provides less than half the effort to complete the activity 2 The helper provides more than half the effort to complete the activity 1 Dependent. The helper does all the effort to complete an activity 7 Patient refused to complete or attempt activity 9 The patient did not perform the activity before the current illness or injury 88 Not attempted due to Medical conditions or safety concerns Grooming (FIM): 5 Oral Hygiene (QC): 4 Bathing (FIM): 5 Bathing Location: L Arm, R Arm, L Upper Leg, R Upper Leg, L Lower Leg ( including foot), R Lower Leg (including foot), Chest, Abdomen, Buttocks, Perineal Area Upper Body (FIM): 5 (Set up, donned hospital gown.) Lower Body Dressing (FIM): 4 (Pt declined underwear. Pt doffed socks, declined to don.) Toileting (FIM): 5 Toileting Hygiene (QC): 4 Toilet/Commode Transfer (FIM): 5 Toilet Transfer (QC): 4 Shower Transfer(FIM): 5 OT Short Term Goals Short Term Goals Time Frame: Sep 30, 2017 Eating(FIM): 5 Grooming(FIM): 5 Bathing(FIM): 5 Upper Body Dressing(FIM): 5 Lower Body Dressing(FIM): 5 Toileting(FIM): 5 Transfers (B,C,W/C) (FIM): 5 Toilet/Commode Transfer(FIM): 5 Shower Transfer(FIM): 5 Additional Short Term Goals: 1-Demonstrate ADL Tasks, 2-Verbalize Understanding , 3-ImproveStrength/Sanchez 1=Demonstrate adherence to instructed precautions during ADL tasks. 2=Patient will verbalize/demonstrate understanding of assistive devices/ modifications for ADL. 3=Patient will improve strength/tolerance for activity to enable patient to perform ADL's. OT Cleat Maker Goals Residential Goals Time Frame: Oct 07, 2017 Eating (FIM): 6 Eating (QC): 6 Groomin Oral Hygiene (QC): 6 Bathing(FIM): 5 Upper Body Dressing(FIM): 6 Lower Body Dressing(FIM): 6 Toileting(FIM): 6 Toileting Hygiene (QC): 6 Transfers (B,C,W/C) (FIM): 6 Toilet/Commode Transfer(FIM): 6 Toilet/Commode Transfer (QC): 6 Shower Transfer(FIM): 5 Additional Goals: 1-Demonstrate ADL Tasks, 2-Verbalize Understanding, 3- ImproveStrength/Sanchez 1=Demonstrate adherence to instructed precautions during ADL tasks. 2=Patient will verbalize/demonstrate understanding of assistive devices/ modifications for ADL. 3=Patient will improve strength/tolerance for activity to enable patient to perform ADL's. OT Education/Plan Discharge Recommendations Plan/Recommendations: Continue POC Treatment Plan/Plan of Care Patient would benefit from OT for education, treatment and training to promote independence in ADL's, mobility, safety and/or upper extremity function for ADL' s. Plan of Care: ADL Retraining, Functional Mobility, UE Funct Exercise/Act Treatment Duration: Oct 07, 2017 Frequency: 5 times per week Estimated Hrs Per Day: .5 hour per day Agreement: Yes Rehab Potential: Good Time/GCodes Start Time: 09:10 Stop Time: 09:34 Total Time Billed (hr/min): 24 Billed Treatment Time 1 visit-ADL 2 (24 min) MOLLY SHRESTHA Sep 26, 2017 09:43
[2017-09-26] MEDS: FLUCONAZOLE 200 MG/100 ML 100 ML IV SCH (09:45)
[2017-09-26] MEDS: FLUoxetine HCL 20 MG (PROzac) CAP PO SCH (09:46)
[2017-09-26] MEDS: OLANZapine 2.5 MG (ZyPREXA) TAB PO SCH ×3 (09:46→20:54)
[2017-09-26] MEDS: MENTHOL/ZINC OXIDE (CALMOSEPTINE) 113 GM TUBE TOP SCH ×2 (09:46→20:54)
[2017-09-26] MEDS: LETROZOLE 2.5 MG (FEMARA) TAB PO SCH (09:46)
[2017-09-26] MEDS: ACYCLOVIR 400 MG TABLET (ZOVIRAX) PO SCH (09:46)
[2017-09-26] MEDS: methylPREDNISolone 40 MG/ML (Solu-MEDROL) VIAL IV SCH (09:46)
[2017-09-26] MEDS: meTOprolol TARTRATE 25 MG (LOPRESSOR) TABLET PO SCH ×2 (09:46→20:54)
--- NOTE | 2017-09-26 11:28 | Physical Therapy Daily Note ---
PT Daily Note-Current Subjective Patient is not on O2 upon PT arrival and SAO2 93% RA Pain Numeric Pain Scale: 0-No Pain Location: No Pain Reported Mental Status Patient Orientation: Normal For Age Transfers Functional [place] Measure 0=Not Assessed/NA 4=Minimal Assistance 1=Total Assistance 5=Supervision or Setup 2=Maximal Assistance 6=Modified [place] 3=Moderate Assistance 7=Complete IndependenceIRFPAI Quality Coding Scale 6 Independent with activity with or without an assistive device 5 Patient requires set up or clean up by helper. Patient completes activity by themselves 4 Supervision or touching assist (CGA). [place] provide cues , steadying assist 3 The helper provides less than half the effort to complete the activity 2 The helper provides more than half the effort to complete the activity 1 Dependent. The helper does all the effort to complete an activity 7 Patient refused to complete or attempt activity 9 The patient did not perform the activity before the current illness or injury 88 Not attempted due to Medical conditions or safety concerns Transfers (B, C, W/C) (FIM): 6 Scootin Roll Left to Right (QC): 6 Supine to/from Sit: 6 Sit to/from Stand: 6 Sit to Lying (QC): 6 Sit to Stand (QC): 6 Chair/Non-ye-Yxudy Xfer(QC): 6 Bed to/from Chair: 6 patient toilets self without difficulty Weight Bearing Right Lower Extremity: Right Full Weight Bearing Left Lower Extremity: Left Full Weight Bearing Gait Training Does the Patient Walk?: Yes Gait (FIM): 6 Distance (FIM): 3=150 ft Distance: 300' Walk 50 ft with 2 Turns(QC): 6 Walk 150 ft (QC): 6 Gait Level of Assist: 6 Gait Assistive Device: FWW safe and functional gait sequence Exercises Supine Ex: Ankle pumps, Quad Set, Heel Slides, Straight leg raise Supine Reps: 15 Seated Therapy Exercises: Long arc quads, Hip flexion Seated Reps: 25 Assessment Patient SAO2 decreased to 89% on RA with ambulation, however returned to 93% in 30 seconds. Patient has progressed with treatment plan and is highly motivated with progress. PT Short Term Goals Short Term Goals Transfers (B,C,W/C) (FIM): 5 PT Solar Sales Consultant Goals Solar Sales Consultant Goals PT Solar Sales Consultant Goals Time Frame: Oct 17, 2017 Transfers (B,C,W/C) (FIM): 6 (met 09/26/17) Sit to Lying (QC): 6 (met 09/26/17) Lying-Sitting on Side/Bed(QC): 6 (met 09/26/17) Sit to Stand (QC): 6 (met 09/26/17) Rollin (met 09/26/17) Chair/Udm-co-Ydyqn Xfer(QC): 6 (met 09/26/17) Does the Patient Walk: Yes Gait (FIM): 6 (met 09/26/17) Gait distance (FIM): 3=150 ft Distance: 300' Walk 50ft with 2 Turns (QC): 6 (met 09/26/17) Walk 150 ft (QC): 6 (met 09/26/17) Gait Level of Assist: 6 (met 09/26/17) Gait Assistive Device: None, FWW PT Plan Treatment/Plan Treatment Plan: Continue Plan of Care Treatment Plan: Bed Mobility, Education, Functional Activity Sanchez, Functional Strength, Gait, Safety, Therapeutic Exercise, Transfers Treatment Duration: Oct 17, 2017 Frequency: 11 times per week Estimated Hrs Per Day: .5 hour per day Patient and/or Family Agrees t: Yes Time/GCodes Time In: 1020 Time Out: 1043 Total Billed Treatment Time: 23 Total Billed Treatment 1 visit FA x 2 23 min HARSHA JACKSON PT Sep 26, 2017 11:28
--- NOTE | 2017-09-26 13:43 | Physical Therapy Daily Note ---
PT Daily Note-Current Subjective Patient is very agreeable to participate with PT. Pain Numeric Pain Scale: 0-No Pain Location: No Pain Reported Mental Status Patient Orientation: Normal For Age Transfers Functional [place] Measure 0=Not Assessed/NA 4=Minimal Assistance 1=Total Assistance 5=Supervision or Setup 2=Maximal Assistance 6=Modified [place] 3=Moderate Assistance 7=Complete IndependenceIRFPAI Quality Coding Scale 6 Independent with activity with or without an assistive device 5 Patient requires set up or clean up by helper. Patient completes activity by themselves 4 Supervision or touching assist (CGA). [place] provide cues , steadying assist 3 The helper provides less than half the effort to complete the activity 2 The helper provides more than half the effort to complete the activity 1 Dependent. The helper does all the effort to complete an activity 7 Patient refused to complete or attempt activity 9 The patient did not perform the activity before the current illness or injury 88 Not attempted due to Medical conditions or safety concerns Transfers (B, C, W/C) (FIM): 6 Scootin Roll Left to Right (QC): 6 Supine to/from Sit: 6 Sit to/from Stand: 6 Sit to Lying (QC): 6 Sit to Stand (QC): 6 Chair/Hcl-qn-Nvrlk Xfer(QC): 6 Bed to/from Chair: 6 Weight Bearing Right Lower Extremity: Right Full Weight Bearing Left Lower Extremity: Left Full Weight Bearing Gait Training Does the Patient Walk?: Yes Gait (FIM): 6 Distance (FIM): 3=150 ft Distance: 350' Walk 50 ft with 2 Turns(QC): 6 Walk 150 ft (QC): 6 Gait Level of Assist: 6 Gait Assistive Device: FWW steady reciprocal pattern Assessment Patient SAO2 remained >90% during treatment. Patient progressing. PT Short Term Goals Short Term Goals Transfers (B,C,W/C) (FIM): 5 PT Retirement Goals [place] Blower Goals PT Cottrell Blower Goals Time Frame: Oct 17, 2017 Transfers (B,C,W/C) (FIM): 6 (met 09/26/17) Sit to Lying (QC): 6 (met 09/26/17) Lying-Sitting on Side/Bed(QC): 6 (met 09/26/17) Sit to Stand (QC): 6 (met 09/26/17) Rollin (met 09/26/17) Chair/Cpt-av-Bqnjo Xfer(QC): 6 (met 09/26/17) Does the Patient Walk: Yes Gait (FIM): 6 (met 09/26/17) Gait distance (FIM): 3=150 ft Distance: 300' Walk 50ft with 2 Turns (QC): 6 (met 09/26/17) Walk 150 ft (QC): 6 (met 09/26/17) Gait Level of Assist: 6 (met 09/26/17) Gait Assistive Device: None, FWW PT Plan Treatment/Plan Treatment Plan: Continue Plan of Care Treatment Plan: Bed Mobility, Education, Functional Activity Sanchez, Functional Strength, Gait, Safety, Therapeutic Exercise, Transfers Treatment Duration: Oct 17, 2017 Frequency: 11 times per week Estimated Hrs Per Day: .5 hour per day Patient and/or Family Agrees t: Yes Time/GCodes Time In: 1230 Time Out: 1240 Total Billed Treatment Time: 10 Total Billed Treatment 1 visit FA 10 min HARSHA JACKSON PT Sep 26, 2017 13:43
[2017-09-26 15:45] VITALS: BP 133/65
[2017-09-26 18:00] VITALS: BP 133/65
[2017-09-27 06:00] LABS: HEMOGLOBIN 9.1 G/DL (11.5-16.0); MEAN PLATELET VOLUME 10.5 FL (7.4-10.4); RED BLOOD COUNT 2.68 10^6/uL (4.35-5.85); RED CELL DISTRIBUTION WIDTH 14.9 % (10.0-14.5); WHITE BLOOD COUNT 2.6 10^3/uL (4.3-11.0)
[2017-09-27 06:22] LABS: CALCIUM 7.9 MG/DL (8.5-10.1); CREATININE SERUM 0.95 MG/DL (0.60-1.30); POTASSIUM 3.2 MMOL/L (3.6-5.0)
[2017-09-27] MEDS: PANTOPRAZOLE 40 MG (PROTONIX) TAB PO SCH (06:33)
[2017-09-27] MEDS: LEVOTHYROXINE 75 MCG (LEVOTHROID) TABLET PO SCH (06:33)
[2017-09-27] MEDS: inSUlin (REGULAR) HUMAN 1 UNIT/0.01 ML (CHARGE PER UNIT) SC SCH ×4 (06:34→22:07)
--- NOTE | 2017-09-27 08:05 | Diagnostic Imaging Report ---
INDICATION: Pneumonia COMPARISON: 09/25/2017 FINDINGS: Upright portable view of the chest is obtained. Left Port-A-Cath is unchanged. Heart size and pulmonary vasculature appear stable. There is no pneumothorax or pleural fluid demonstrated. There is increase of the interstitial markings seen on the prior study. There are increasing alveolar opacities in the right lung. IMPRESSION: Increasing alveolar opacities in the right lung superimposed on chronic interstitial findings. Dictated by: Dictated on workstation # [id number]
[2017-09-27] MEDS: FLUCONAZOLE 200 MG/100 ML 100 ML IV SCH (09:08)
[2017-09-27] MEDS: methylPREDNISolone 40 MG/ML (Solu-MEDROL) VIAL IV SCH (09:11)
[2017-09-27] MEDS: ACYCLOVIR 400 MG TABLET (ZOVIRAX) PO SCH (09:13)
[2017-09-27] MEDS: FLUoxetine HCL 20 MG (PROzac) CAP PO SCH (09:13)
[2017-09-27] MEDS: OLANZapine 2.5 MG (ZyPREXA) TAB PO SCH ×3 (09:13→22:06)
[2017-09-27] MEDS: meTOprolol TARTRATE 25 MG (LOPRESSOR) TABLET PO SCH ×2 (09:13→22:07)
[2017-09-27] MEDS: LETROZOLE 2.5 MG (FEMARA) TAB PO SCH (09:14)
[2017-09-27] MEDS: MENTHOL/ZINC OXIDE (CALMOSEPTINE) 113 GM TUBE TOP SCH ×2 (09:15→22:07)
--- NOTE | 2017-09-27 11:25 | Physical Therapy Daily Note ---
PT Daily Note-Current Subjective Pt agreeable and ready for PT. Pt requests BR privileges. Pt denies pain. Mental Status Patient Orientation: Person, Place, Situation Transfers Functional [place] Measure 0=Not Assessed/NA 4=Minimal Assistance 1=Total Assistance 5=Supervision or Setup 2=Maximal Assistance 6=Modified [place] 3=Moderate Assistance 7=Complete IndependenceIRFPAI Quality Coding Scale 6 Independent with activity with or without an assistive device 5 Patient requires set up or clean up by helper. Patient completes activity by themselves 4 Supervision or touching assist (CGA). [place] provide cues , steadying assist 3 The helper provides less than half the effort to complete the activity 2 The helper provides more than half the effort to complete the activity 1 Dependent. The helper does all the effort to complete an activity 7 Patient refused to complete or attempt activity 9 The patient did not perform the activity before the current illness or injury 88 Not attempted due to Medical conditions or safety concerns Weight Bearing Right Lower Extremity: Right Full Weight Bearing Left Lower Extremity: Left Full Weight Bearing Gait Training Gait Assistive Device: FWW Pt (I) with BR use. Pt amb with FWW and CGA-SBA x 300ft. Assessment Current Status: Good Progress PT demonstrated safe mod (I) mobility. Pt declined ther ex. Pt resting in bed with call light and all needs met post therapy. PT Short Term Goals Short Term Goals Transfers (B,C,W/C) (FIM): 5 PT [place] Helper Goals Skilled Nursing Goals PT Skilled Nursing Goals Time Frame: Oct 17, 2017 Transfers (B,C,W/C) (FIM): 6 (met 09/26/17) Sit to Lying (QC): 6 (met 09/26/17) Lying-Sitting on Side/Bed(QC): 6 (met 09/26/17) Sit to Stand (QC): 6 (met 09/26/17) Rollin (met 09/26/17) Chair/Dqk-bu-Klytq Xfer(QC): 6 (met 09/26/17) Does the Patient Walk: Yes Gait (FIM): 6 (met 09/26/17) Gait distance (FIM): 3=150 ft Distance: 300' Walk 50ft with 2 Turns (QC): 6 (met 09/26/17) Walk 150 ft (QC): 6 (met 09/26/17) Gait Level of Assist: 6 (met 09/26/17) Gait Assistive Device: None, FWW PT Plan Treatment/Plan Treatment Plan: Continue Plan of Care Treatment Plan: Bed Mobility, Education, Functional Activity Sanchez, Functional Strength, Gait, Safety, Therapeutic Exercise, Transfers Treatment Duration: Oct 17, 2017 Frequency: 11 times per week Estimated Hrs Per Day: .5 hour per day Patient and/or Family Agrees t: Yes Time/GCodes Time In: 1010 Time Out: 1025 Total Billed Treatment Time: 15 Total Billed Treatment 1,gait 15 min JACK MITTAL CPTA Sep 27, 2017 11:25
--- NOTE | 2017-09-27 13:28 | Progress Note-Hospitalist ---
Subjective HPI/CC On Admission Date Seen by Provider: Sep 27, 2017 Time Seen by Provider: 13:00 Subjective/Events-last exam Patient is without specific complaints. Chest x-ray shows increased interstitial infiltrates on the right Review of Systems Neurological: Weakness Objective Exam Vital Signs Vital Signs Date Time Temp Pulse Resp B/P (MAP) Pulse Ox O2 Delivery O2 Flow Rate FiO2 09/23/17 11:41 100 Nasal Cannula 3.00 09/23/17 17:55 98.5 87 20 128/58 (81) 09/24/17 11:50 24 Capillary Refill : Less Than 3 Seconds General Appearance: No Apparent Distress HEENT: Pale Conjunctivae (R) Respiratory: Crackles, Rales (Anterior and posterior) Cardiovascular: Regular Rate, Rhythm, No Gallop Gastrointestinal: Non Tender, Soft Results/Procedures Lab Laboratory Tests 09/27/17 05:45 Assessment/Plan Assessment and Plan Assess & Plan/Chief Complaint 1. Pneumonia secondary to candidiasis on Diflucan worsening infiltrates, Mycobacterium pending 2. Cancer of the breast on Femara 3. Chronic neutropenia 4. Complaints of diarrhea Will check for C. difficile and start probiotics BLANCA ORTEGA MD Sep 27, 2017 13:28
[2017-09-27] MEDS: RT-ALBUTEROL/IPRATROPIUM 3 ML (DUONEB) VIAL INH SCH ×2 (16:05→23:24)
[2017-09-27] MEDS: LACTOBACILLUS Acidoph/Bulgar (LACTINEX/FLORANEX) TAB PO SCH (16:40)
[2017-09-27 17:44] VITALS: BP 135/68
[2017-09-28 06:10] VITALS: BP 153/71
[2017-09-28] MEDS: LACTOBACILLUS Acidoph/Bulgar (LACTINEX/FLORANEX) TAB PO SCH ×3 (06:35→16:42)
[2017-09-28] MEDS: PANTOPRAZOLE 40 MG (PROTONIX) TAB PO SCH (06:35)
[2017-09-28] MEDS: LEVOTHYROXINE 75 MCG (LEVOTHROID) TABLET PO SCH (06:35)
[2017-09-28] MEDS: inSUlin (REGULAR) HUMAN 1 UNIT/0.01 ML (CHARGE PER UNIT) SC SCH ×4 (06:36→22:24)
[2017-09-28] MEDS: RT-ALBUTEROL/IPRATROPIUM 3 ML (DUONEB) VIAL INH SCH ×2 (08:06→21:07)
[2017-09-28] MEDS: methylPREDNISolone 40 MG/ML (Solu-MEDROL) VIAL IV SCH (08:52)
[2017-09-28] MEDS: FLUCONAZOLE 200 MG/100 ML 100 ML IV SCH (08:52)
[2017-09-28] MEDS: ACYCLOVIR 400 MG TABLET (ZOVIRAX) PO SCH (08:56)
[2017-09-28] MEDS: FLUoxetine HCL 20 MG (PROzac) CAP PO SCH (08:56)
[2017-09-28] MEDS: OLANZapine 2.5 MG (ZyPREXA) TAB PO SCH ×3 (08:56→22:24)
[2017-09-28] MEDS: LETROZOLE 2.5 MG (FEMARA) TAB PO SCH (08:57)
[2017-09-28] MEDS: meTOprolol TARTRATE 25 MG (LOPRESSOR) TABLET PO SCH ×2 (08:57→22:24)
[2017-09-28] MEDS: MENTHOL/ZINC OXIDE (CALMOSEPTINE) 113 GM TUBE TOP SCH ×2 (08:58→22:25)
--- NOTE | 2017-09-28 13:23 | Progress Note-Hospitalist ---
Subjective HPI/CC On Admission Date Seen by Provider: Sep 28, 2017 Time Seen by Provider: 12:30 Subjective/Events-last exam Patient complains primarily of diarrhea. She was started on a probiotic yesterday. Chest x-ray shows increased opacities in the right lung. Review of Systems Gastrointestinal: Diarrhea Objective Exam Vital Signs Vital Signs Date Time Temp Pulse Resp B/P (MAP) Pulse Ox O2 Delivery O2 Flow Rate FiO2 09/23/17 11:41 100 Nasal Cannula 3.00 09/23/17 17:55 98.5 87 20 128/58 (81) 09/24/17 11:50 24 Capillary Refill : Less Than 3 Seconds General Appearance: Chronically ill Neck: Supple Respiratory: Crackles, Rales, Rhonci Cardiovascular: Regular Rate, Rhythm, No Gallop Gastrointestinal: Soft, Other (Upper active bowel sounds) Extremity: Normal Inspection, Non Tender, No Calf Tenderness Neurologic/Psychiatric: Alert, Oriented x3, No Motor/Sensory Deficits, Normal Mood/Affect Skin: Warm/Dry Assessment/Plan Assessment and Plan Assess & Plan/Chief Complaint 1. Pneumonia secondary to candidiasis on Diflucan worsening infiltrates, Mycobacterium pending, AFBs are negative 2. Cancer of the breast on Femara 3. Chronic neutropenia 4. Complaints of diarrhea Will check for C. difficile and start probiotics, will add Questran Time spent with patient (mins): 20 minutes BLANCA ORTEGA MD Sep 28, 2017 13:23
[2017-09-28 18:30] VITALS: BP 140/67
[2017-09-29 06:24] VITALS: BP 140/68
[2017-09-29] MEDS: PANTOPRAZOLE 40 MG (PROTONIX) TAB PO SCH (06:33)
[2017-09-29] MEDS: LACTOBACILLUS Acidoph/Bulgar (LACTINEX/FLORANEX) TAB PO SCH (06:33)
[2017-09-29] MEDS: LEVOTHYROXINE 75 MCG (LEVOTHROID) TABLET PO SCH (06:33)
[2017-09-29] MEDS: inSUlin (REGULAR) HUMAN 1 UNIT/0.01 ML (CHARGE PER UNIT) SC SCH ×2 (06:33→12:00)
[2017-09-29] MEDS: RT-ALBUTEROL/IPRATROPIUM 3 ML (DUONEB) VIAL INH SCH (07:44)
--- NOTE | 2017-09-29 08:13 | Progress Note (SOAP) ---
Subjective Date Seen by Provider: Sep 29, 2017 Time Seen by Provider: 08:13 Subjective/Events-last exam SEE DC SUMMARY Objective Exam Vital Signs Date Time Temp Pulse Resp B/P (MAP) Pulse Ox O2 Delivery O2 Flow Rate FiO2 09/29/17 07:44 95 Room Air 09/29/17 06:24 98.2 72 18 140/68 (92) 92 Room Air 09/28/17 21:07 93 Room Air 09/28/17 21:00 Room Air 09/28/17 18:30 98.6 75 17 140/67 (91) 95 Room Air I & O 09/29/17 07:00 Intake Total 1800 ml Balance 1800 ml Capillary Refill : Less Than 3 Seconds General Appearance: No Apparent Distress Results Lab Laboratory Tests 09/28/17 11:50: Glucometer 171H 09/28/17 16:00: Glucometer 166H 09/28/17 21:03: Glucometer 149H 09/29/17 05:22: Glucometer 89 Microbiology 09/28/17 C. difficile GDH Antigen & Toxins - Final, Complete Assessment/Plan Assessment/Plan Assess & Plan/Chief Complaint SEE DISCHARGE SUMMARY ORTEGA PIERRE MD Sep 29, 2017 08:13
--- NOTE | 2017-09-29 09:03 | Pulmonary Progress Note ---
Exam Exam Vital Signs Date Time Temp Pulse Resp B/P (MAP) Pulse Ox O2 Delivery O2 Flow Rate FiO2 09/29/17 07:44 95 Room Air 09/29/17 06:24 98.2 72 18 140/68 (92) 92 Room Air 09/28/17 21:07 93 Room Air 09/28/17 21:00 Room Air 09/28/17 18:30 98.6 75 17 140/67 (91) 95 Room Air I & O 09/29/17 07:00 Intake Total 1800 ml Balance 1800 ml General Appearance: Chronically ill HEENT: Pale Conjunctivae (R) Neck: Supple Respiratory: Crackles, Rales, Rhonci Cardiovascular: Regular Rate, Rhythm, No Gallop Extremity: Normal Inspection, Non Tender, No Calf Tenderness Neurologic/Psychiatric: Alert, Oriented x3, No Motor/Sensory Deficits, Normal Mood/Affect Skin: Warm/Dry Assessment/Plan Assessment/Plan Acute respiratory failure -Pt is doing better -Continue to titrate oxygen -PT looks and feels good CXR shows worsening -Will repeat CXR as out pt in 6-8wks Atelectasis -Increase activity -IS -SVNs Pneumonia with Helophilus, candidiasis - resolving Acute Renal Failure - improved -Monitor Chronic Neutropenia 232 FORTUNATO BARR DO Sep 29, 2017 09:02
[2017-09-29] MEDS: methylPREDNISolone 40 MG/ML (Solu-MEDROL) VIAL IV SCH (09:22)
[2017-09-29] MEDS: FLUoxetine HCL 20 MG (PROzac) CAP PO SCH (09:23)
[2017-09-29] MEDS: OLANZapine 2.5 MG (ZyPREXA) TAB PO SCH (09:23)
[2017-09-29] MEDS: ACYCLOVIR 400 MG TABLET (ZOVIRAX) PO SCH (09:23)
[2017-09-29] MEDS: meTOprolol TARTRATE 25 MG (LOPRESSOR) TABLET PO SCH (09:23)
[2017-09-29] MEDS: MENTHOL/ZINC OXIDE (CALMOSEPTINE) 113 GM TUBE TOP SCH (09:24)
[2017-09-29] MEDS: LETROZOLE 2.5 MG (FEMARA) TAB PO SCH (09:24)
--- NOTE | 2017-09-29 09:35 | Discharge Summary ---
Diagnosis/Chief Complaint Date of Admission Sep 23, 2017 at 09:48 Date of Discharge Discharge Summary Discharge Physical Examination Allergies: Coded Allergies: No Known Drug Allergies (Verified , 09/11/17) Vitals & I&Os Vital Signs Date Time Temp Pulse Resp B/P (MAP) Pulse Ox O2 Delivery O2 Flow Rate FiO2 09/29/17 07:44 95 Room Air 09/29/17 06:24 98.2 72 18 140/68 (92) 09/25/17 21:27 1.00 09/24/17 11:50 24 Hospital Course Pending Labs Laboratory Tests 09/29/17 05:22: Glucometer 89 Discharge Instructions to patient/family Please see electronic discharge instructions given to patient. Discharge Medications Reviewed and agree with Discharge Medication list on patient's Discharge Instruction sheet ORTEGA PIERRE MD Sep 29, 2017 09:35
[2017-09-29] MEDS ORDERED: CHOL4PAC3 PO (09:37)
[2017-09-29] MEDS ORDERED: METO-333 PO (09:37)
--- NOTE | 2017-09-29 09:39 | D/C HH Face to Face Order ---
D/C Face to Face Orders Instructions for Patient Patient Instructions/FollowUp: pneumonia multiple myeloma uti Physician to follow Patient: prosper Discharge Diet for Home: Regular Diet Patient Data-Allergies,Ht & Wt Patient Allergies: Coded Allergies: No Known Drug Allergies (Verified , 09/11/17) Height (Feet): 5 Height (Inches): 0.00 Weight (Pounds): 152 Weight (Ounces): 9.0 Home Health Need/Face to Face Date of Face to Face: Sep 29, 2017 Clinical Findings: Instability, Muscle weakness, Unsteady gait I have seen Pt dtpw-[id number]: Yes Discharged To: Home Diagnosis/Conditions: pneumonia weakness multiple myeloma Problems/Diagnosis/Condition: Patient is Homebound due to: [place] fall risk due to instabilty, Muscle weakness , Shortness of breath/distress Homebound Status Due to the above stated illness, injury or surgical procedure (medical condition or diagnosis) and associated clinical findings, the patient is homebound because of his/her inability to leave home except with aid of a supportive device and/or person AND leaving the home requires a considerable and taxing effort or is medically contraindicated. Pt req the following assistanc: [facility] Therapy Line Type: [facility] Site Location: Chest Certify Stmt I certify that this patient is under my care and that I, a nurse practitioner or a physician; a administrative assistant office manager working with me, had a face to face encounter that - meets the physician face to face encounter requirements with this patient as dated. ORTEGA PIERRE MD Sep 29, 2017 09:39
--- NOTE | 2017-09-29 09:52 | Therapy Team Discharge Summary ---
Therapy Discharge Summary Discharge Recommendations Date of Discharge Therapy D/C Recommendations: Home w/ Family Support, Occupational Therapy Home Care Physical Therapy Patient has attained all functional goals and will dismiss to home on this date. Patient, upon initial evaluation, requires moderate to minimal assist with mobility and had decreased pulmonary function requiring, ventilator, BiPap , vapotherm, and O2. She is currently on RA and modified independent with all gross motor skills safely. Occupational Therapy Decreased Activ Tolerance, Impaired I ADL's PT Shelter Goals Marketing Services Manager Goals PT Shelter Goals Time Frame: Oct 17, 2017 Transfers (B,C,W/C) (FIM): 6 (met 09/26/17) Sit to Lying (QC): 6 (met 09/26/17) Lying-Sitting on Side/Bed(QC): 6 (met 09/26/17) Sit to Stand (QC): 6 (met 09/26/17) Rollin (met 09/26/17) Chair/Ind-pz-Pbkqq Xfer(QC): 6 (met 09/26/17) Does the Patient Walk: Yes Gait (FIM): 6 (met 09/26/17) Gait distance (FIM): 3=150 ft Distance: 300' Walk 50ft with 2 Turns (QC): 6 (met 09/26/17) Walk 150 ft (QC): 6 (met 09/26/17) Gait Level of Assist: 6 (met 09/26/17) Gait Assistive Device: None, FWW OT Marketing Services Manager Goals Marketing Services Manager Goals Time Frame: Oct 07, 2017 Eating (FIM): 6 Eating (QC): 6 Groomin Oral Hygiene (QC): 6 Bathing(FIM): 5 Upper Body Dressing(FIM): 6 Lower Body Dressing(FIM): 6 Toileting(FIM): 6 Toileting Hygiene (QC): 6 Transfers (B,C,W/C) (FIM): 6 Toilet/Commode Transfer(FIM): 6 Toilet/Commode Transfer (QC): 6 Shower Transfer(FIM): 5 Additional Goals: 1-Demonstrate ADL Tasks, 2-Verbalize Understanding, 3- ImproveStrength/Sanchez 1=Demonstrate adherence to instructed precautions during ADL tasks. 2=Patient will verbalize/demonstrate understanding of assistive devices/ modifications for ADL. 3=Patient will improve strength/tolerance for activity to enable patient to perform ADL's. HARSHA JACKSON PT Sep 29, 2017 09:52
--- NOTE | 2017-09-29 09:52 | Physical Therapy Daily Note ---
PT Daily Note-Current Subjective Patient is very agreeable to participate with PT. Hopeful to go home today. Pain Numeric Pain Scale: 0-No Pain Location: No Pain Reported Mental Status Patient Orientation: Normal For Age Transfers Functional [place] Measure 0=Not Assessed/NA 4=Minimal Assistance 1=Total Assistance 5=Supervision or Setup 2=Maximal Assistance 6=Modified Free[place] 3=Moderate Assistance 7=Complete IndependenceIRFPAI Quality Coding Scale 6 Independent with activity with or without an assistive device 5 Patient requires set up or clean up by helper. Patient completes activity by themselves 4 Supervision or touching assist (CGA). [place] provide cues , steadying assist 3 The helper provides less than half the effort to complete the activity 2 The helper provides more than half the effort to complete the activity 1 Dependent. The helper does all the effort to complete an activity 7 Patient refused to complete or attempt activity 9 The patient did not perform the activity before the current illness or injury 88 Not attempted due to Medical conditions or safety concerns Transfers (B, C, W/C) (FIM): 6 Scootin Roll Left to Right (QC): 6 Supine to/from Sit: 6 Sit to/from Stand: 6 Sit to Lying (QC): 6 Sit to Stand (QC): 6 Weight Bearing Right Lower Extremity: Right Full Weight Bearing Left Lower Extremity: Left Full Weight Bearing Gait Training Does the Patient Walk?: Yes Gait (FIM): 6 Distance (FIM): 3=150 ft Distance: 300' x 2 Walk 50 ft with 2 Turns(QC): 6 Walk 150 ft (QC): 6 Gait Level of Assist: 6 Gait Assistive Device: FWW safe and functional Exercises Seated Therapy Exercises: Ankle pumps, Long arc quads, Hip flexion Seated Reps: 25 (2 sets) Assessment Patient has attained all functional goals and will dismiss to home on this date. Patient, upon initial evaluation, requires moderate to minimal assist with mobility and had decreased pulmonary function requiring, ventilator, BiPap , vapotherm, and O2. She is currently on RA and modified independent with all gross motor skills safely. PT Short Term Goals Short Term Goals Transfers (B,C,W/C) (FIM): 5 PT Senior Care Goals Senior Care Goals PT Senior Care Goals Time Frame: Oct 17, 2017 Transfers (B,C,W/C) (FIM): 6 (met 09/26/17) Sit to Lying (QC): 6 (met 09/26/17) Lying-Sitting on Side/Bed(QC): 6 (met 09/26/17) Sit to Stand (QC): 6 (met 09/26/17) Rollin (met 09/26/17) Chair/Xir-cb-Phzve Xfer(QC): 6 (met 09/26/17) Does the Patient Walk: Yes Gait (FIM): 6 (met 09/26/17) Gait distance (FIM): 3=150 ft Distance: 300' Walk 50ft with 2 Turns (QC): 6 (met 09/26/17) Walk 150 ft (QC): 6 (met 09/26/17) Gait Level of Assist: 6 (met 09/26/17) Gait Assistive Device: None, FWW PT Plan Treatment/Plan Treatment Plan: Discontinue PT, goals met Treatment Plan: Bed Mobility, Education, Functional Activity Sanchez, Functional Strength, Gait, Safety, Therapeutic Exercise, Transfers Treatment Duration: Oct 17, 2017 Frequency: 11 times per week Estimated Hrs Per Day: .5 hour per day Patient and/or Family Agrees t: Yes Time/GCodes Time In: 852 Time Out: 915 Total Billed Treatment Time: 23 Total Billed Treatment 1 visit EX 8 min GT 15 min HARSHA JAKCSON PT Sep 29, 2017 09:52
[2017-09-29] MEDS ORDERED: CHOLESTYRAMINE 4 GM (QUESTRAN LITE, PREVALITE) PKT PO SCH (10:00)
[2017-09-29 12:20] VITALS: BP 140/68
--- NOTE | 2017-09-29 13:08 | Therapy Team Discharge Summary ---
Therapy Discharge Summary Discharge Recommendations Date of Discharge Sep 29, 2017 at 12:20 Therapy D/C Recommendations: Home w/ Family Support, Occupational Therapy Home Care Occupational Therapy Pt. has been seen by occupational therapy to increase overall strength and independence with daily tasks. Pt. requires min/SBA with most tasks. Pt. has met some goals, but continues to work toward progression of others. Pt. tolerated treatment well and is discharging home with family support. Pt. would benefit from in home occupational therapy to make sure that she is independent in all areas. All needs met. Decreased Activ Tolerance, Impaired I ADL's PT Group Home Goals Director Of Rotc Goals PT Group Home Goals Time Frame: Oct 17, 2017 Transfers (B,C,W/C) (FIM): 6 (met 09/26/17) Sit to Lying (QC): 6 (met 09/26/17) Lying-Sitting on Side/Bed(QC): 6 (met 09/26/17) Sit to Stand (QC): 6 (met 09/26/17) Rollin (met 09/26/17) Chair/Jwz-li-Offrs Xfer(QC): 6 (met 09/26/17) Does the Patient Walk: Yes Gait (FIM): 6 (met 09/26/17) Gait distance (FIM): 3=150 ft Distance: 300' Walk 50ft with 2 Turns (QC): 6 (met 09/26/17) Walk 150 ft (QC): 6 (met 09/26/17) Gait Level of Assist: 6 (met 09/26/17) Gait Assistive Device: None, FWW OT Group Home Goals Director Of Rotc Goals Time Frame: Oct 07, 2017 Eating (FIM): 6 (met) Eating (QC): 6 (met) Groomin (met) Oral Hygiene (QC): 6 (met) Bathing(FIM): 5 (met) Upper Body Dressing(FIM): 6 (not met) Lower Body Dressing(FIM): 6 (not met) Toileting(FIM): 6 (not met) Toileting Hygiene (QC): 6 (not met) Transfers (B,C,W/C) (FIM): 6 (not met) Toilet/Commode Transfer(FIM): 6 (not met) Toilet/Commode Transfer (QC): 6 (not met) Shower Transfer(FIM): 5 (not met) Additional Goals: 1-Demonstrate ADL Tasks, 2-Verbalize Understanding, 3- ImproveStrength/Sanchez 1=Demonstrate adherence to instructed precautions during ADL tasks. 2=Patient will verbalize/demonstrate understanding of assistive devices/ modifications for ADL. 3=Patient will improve strength/tolerance for activity to enable patient to perform ADL's. LAUREN BOWEN OT Sep 29, 2017 13:08
== END 2017-09-29 12:20 | disposition home health service (06) | DRG 193 ==
LOC: 4TH 09:48
PROVIDERS: ADMIT Family Medicine; ATTEND Family Medicine
DX: J14 Pneumonia due to Hemophilus influenzae (principal); B37.1 Pulmonary candidiasis; J98.11 Atelectasis; C90.00 Multiple myeloma not having achieved remission; F20.81 Schizophreniform disorder; R19.7 Diarrhea, unspecified; C50.912 Malignant neoplasm of unspecified site of left female breast; D70.9 Neutropenia, unspecified; N18.9 Chronic kidney disease, unspecified; E78.00 Pure hypercholesterolemia, unspecified; F41.9 Anxiety disorder, unspecified; F32.9 Major depressive disorder, single episode, unspecified; E03.9 Hypothyroidism, unspecified; K21.9 Gastro-esophageal reflux disease without esophagitis; M81.0 Age-related osteoporosis without current pathological fracture; R74.8 Abnormal levels of other serum enzymes; Z94.81 Bone marrow transplant status; Z87.891 Personal history of nicotine dependence; Z92.3 Personal history of irradiation; Z92.21 Personal history of antineoplastic chemotherapy; Z79.01 Long term (current) use of anticoagulants; Z86.718 Personal history of other venous thrombosis and embolism
CPT/HCPCS: 36415; 71045; 71046; 80048; 80053; 82962; 85027; 87324; 87449; 94640; 94664; 94760; 94761

== ENCOUNTER → 2018-01-30 | Outpatient (CLI) | payer MEDICARE, OTHER ==
[~2018-01-30] MED LIST changes: -ACETAMINOPHEN 500 MG TAB (TYLENOL) PO PRN; +CHOL4PAC3 PO; +METO-333 PO; -PANTOPRAZOLE 40 MG/10 ML (PROTONIX) VIAL IV SCH; -PATIENT MAY USE OWN MEDS, ALL MC SCH; -morphine INJ 4 MG/ML 1 ML (VIAL/SYRINGE) IVP PRN; -oxyCODONE/APAP 5/325MG (PERCOCET 5) TABLET PO PRN
--- NOTE | 2018-01-30 11:20 | Diagnostic Imaging Report ---
PROCEDURE: MR angiography of the brain without the use of contrast. TECHNIQUE: 3D savi-tn-qjvisa non contrast enhanced MR angiography of the head was performed. A source data was reformatted into rotating MIP projections. INDICATION: Syncope and history of left frontal lobe AVM. COMPARISON: No prior studies are available for comparison. FINDINGS: There is flow in the distal internal carotid arteries and distal vertebral arteries. Flow is identified in the basilar. Carotid siphons are unremarkable. Middle cerebral and anterior cerebral arteries are unremarkable. Bilateral posterior cerebral arteries are unremarkable. No aneurysm is seen. No definite AVM is identified however a large portion of the left frontal lobe was not included on this study. No stenosis is seen. IMPRESSION: Unremarkable MRA of the brain. Dictated by: Dictated on workstation # [id number]
== END ==
LOC: RAD 08:40
PROVIDERS: ATTEND Family Medicine
DX: R55 Syncope and collapse (principal); Q28.2 Arteriovenous malformation of cerebral vessels
CPT/HCPCS: 70544

== ENCOUNTER 2018-02-03 08:45 | Outpatient (RCR) | payer MEDICARE, OTHER ==
[2017-11-10 09:06] LABS: BASOPHILS % (AUTO) 0 % (0-10); EOSINOPHILS # (AUTO) 0.1 10^3/uL (0.0-0.3); EOSINOPHILS % (AUTO) 4 % (0-10); HEMATOCRIT 35 % (35-52); HEMOGLOBIN 11.8 G/DL (11.5-16.0); LYMPHOCYTES % (AUTO) 40 % (12-44); MEAN CORPUSCULAR HEMOGLOBIN 33 PG (25-34); MEAN CORPUSCULAR HGB CONC 34 G/DL (32-36); MEAN CORPUSCULAR VOLUME 96 FL (80-99); MEAN PLATELET VOLUME 9.4 FL (7.4-10.4); MONOCYTES # (AUTO) 0.5 X 10^3 (0.0-1.0); MONOCYTES % (AUTO) 19 % (0-12); NEUTROPHILS # (AUTO) 0.9 X 10^3 (1.8-7.8); NEUTROPHILS % (AUTO) 36 % (42-75); PLATELET COUNT 174 10^3/uL (130-400); RED BLOOD COUNT 3.62 10^6/uL (4.35-5.85); RED CELL DISTRIBUTION WIDTH 14.3 % (10.0-14.5); WHITE BLOOD COUNT 2.5 10^3/uL (4.3-11.0)
[2017-11-10 09:28] LABS: ALANINE AMINOTRANSFERASE 16 U/L (0-55); ALBUMIN 3.7 GM/DL (3.2-4.5); ALKALINE PHOSPHATASE 77 U/L (40-136); BILIRUBIN,TOTAL 0.8 MG/DL (0.1-1.0); BUN/CREATININE RATIO 10; CALCIUM 9.2 MG/DL (8.5-10.1); CARBON DIOXIDE 22 MMOL/L (21-32); CHLORIDE 101 MMOL/L (98-107); GFR ESTIMATED > 60; GLUCOSE 131 MG/DL (70-105); POTASSIUM 4.4 MMOL/L (3.6-5.0); SODIUM 132 MMOL/L (135-145); TOTAL PROTEIN 6.5 GM/DL (6.4-8.2)
[2018-02-03 09:01] LABS: BASOPHILS % (AUTO) 1 % (0-10); EOSINOPHILS # (AUTO) 0.1 10^3/uL (0.0-0.3); EOSINOPHILS % (AUTO) 6 % (0-10); HEMATOCRIT 39 % (35-52); HEMOGLOBIN 12.8 G/DL (11.5-16.0); LYMPHOCYTES % (AUTO) 52 % (12-44); MEAN CORPUSCULAR HEMOGLOBIN 33 PG (25-34); MEAN CORPUSCULAR HGB CONC 33 G/DL (32-36); MEAN CORPUSCULAR VOLUME 98 FL (80-99); MEAN PLATELET VOLUME 9.7 FL (7.4-10.4); MONOCYTES # (AUTO) 0.4 X 10^3 (0.0-1.0); MONOCYTES % (AUTO) 22 % (0-12); NEUTROPHILS # (AUTO) 0.4 X 10^3 (1.8-7.8); NEUTROPHILS % (AUTO) 20 % (42-75); PLATELET COUNT 163 10^3/uL (130-400); RED BLOOD COUNT 3.93 10^6/uL (4.35-5.85); RED CELL DISTRIBUTION WIDTH 13.3 % (10.0-14.5)
[2018-02-03 09:22] LABS: ALBUMIN 3.8 GM/DL (3.2-4.5); BILIRUBIN,TOTAL 0.5 MG/DL (0.1-1.0); CALCIUM 9.8 MG/DL (8.5-10.1); CREATININE SERUM 1.27 MG/DL (0.60-1.30); POTASSIUM 4.5 MMOL/L (3.6-5.0)
== END 2018-02-08 | disposition home or self-care (01) ==
LOC: ONC 08:45
PROVIDERS: ATTEND Internal Medicine Hematology & Oncology
DX: C90.00 Multiple myeloma not having achieved remission (principal); C50.412 Malignant neoplasm of upper-outer quadrant of left female breast; M85.80 Other specified disorders of bone density and structure, unspecified site; Z92.21 Personal history of antineoplastic chemotherapy; Z92.3 Personal history of irradiation; Z79.811 Long term (current) use of aromatase inhibitors; Z79.899 Other long term (current) drug therapy; Z45.2 Encounter for adjustment and management of vascular access device
CPT/HCPCS: 36591; 80053; 82232; 82306; 82728; 82784; 83883; 85025; 96523; 99213

== ENCOUNTER 2018-03-17 08:01 | Outpatient (RCR) | payer MEDICARE, OTHER ==
[~2018-03-17 08:01] MED LIST changes: -LOSA50TA36 PO; +LOSA50TA7 PO
== END 2018-03-20 | disposition home or self-care (01) ==
LOC: ONC 08:01
PROVIDERS: ATTEND Internal Medicine Hematology & Oncology
DX: C90.00 Multiple myeloma not having achieved remission (principal); C50.412 Malignant neoplasm of upper-outer quadrant of left female breast; M85.80 Other specified disorders of bone density and structure, unspecified site; Z92.21 Personal history of antineoplastic chemotherapy; Z92.3 Personal history of irradiation; Z79.811 Long term (current) use of aromatase inhibitors; Z79.899 Other long term (current) drug therapy
CPT/HCPCS: 36591

== ENCOUNTER 2018-07-16 10:26 | Outpatient (RCR) | payer MEDICARE, OTHER ==
[2018-04-28 10:08] LABS: BASOPHILS % (AUTO) 1 % (0-10); EOSINOPHILS # (AUTO) 0.1 10^3/uL (0.0-0.3); EOSINOPHILS % (AUTO) 4 % (0-10); HEMATOCRIT 38 % (35-52); HEMOGLOBIN 12.8 G/DL (11.5-16.0); LYMPHOCYTES # (AUTO) 1.3 X 10^3 (1.0-4.0); LYMPHOCYTES % (AUTO) 40 % (12-44); MEAN CORPUSCULAR HEMOGLOBIN 33 PG (25-34); MEAN CORPUSCULAR HGB CONC 33 G/DL (32-36); MEAN CORPUSCULAR VOLUME 100 FL (80-99); MEAN PLATELET VOLUME 9.5 FL (7.4-10.4); MONOCYTES # (AUTO) 0.5 X 10^3 (0.0-1.0); MONOCYTES % (AUTO) 17 % (0-12); NEUTROPHILS # (AUTO) 1.3 X 10^3 (1.8-7.8); NEUTROPHILS % (AUTO) 39 % (42-75); PLATELET COUNT 192 10^3/uL (130-400); RED BLOOD COUNT 3.83 10^6/uL (4.35-5.85); RED CELL DISTRIBUTION WIDTH 14.3 % (10.0-14.5); WHITE BLOOD COUNT 3.2 10^3/uL (4.3-11.0)
[2018-04-28 10:26] LABS: BILIRUBIN,TOTAL 0.8 MG/DL (0.1-1.0); CALCIUM 9.3 MG/DL (8.5-10.1); CREATININE SERUM 1.07 MG/DL (0.60-1.30); POTASSIUM 4.3 MMOL/L (3.6-5.0); TOTAL PROTEIN 6.9 GM/DL (6.4-8.2)
[2018-07-16 10:59] LABS: BASOPHILS % (AUTO) 0 % (0-10); EOSINOPHILS # (AUTO) 0.1 10^3/uL (0.0-0.3); EOSINOPHILS % (AUTO) 2 % (0-10); HEMATOCRIT 39 % (35-52); HEMOGLOBIN 12.9 G/DL (11.5-16.0); LYMPHOCYTES # (AUTO) 1.5 X 10^3 (1.0-4.0); LYMPHOCYTES % (AUTO) 28 % (12-44); MEAN CORPUSCULAR HEMOGLOBIN 33 PG (25-34); MEAN CORPUSCULAR HGB CONC 33 G/DL (32-36); MEAN CORPUSCULAR VOLUME 99 FL (80-99); MONOCYTES % (AUTO) 19 % (0-12); NEUTROPHILS # (AUTO) 2.5 X 10^3 (1.8-7.8); NEUTROPHILS % (AUTO) 50 % (42-75); PLATELET COUNT 171 10^3/uL (130-400); RED BLOOD COUNT 3.95 10^6/uL (4.35-5.85); RED CELL DISTRIBUTION WIDTH 13.7 % (10.0-14.5); WHITE BLOOD COUNT 5.1 10^3/uL (4.3-11.0)
[2018-07-16 11:20] LABS: ALBUMIN 3.9 GM/DL (3.2-4.5); BILIRUBIN,TOTAL 0.6 MG/DL (0.1-1.0); CALCIUM 9.8 MG/DL (8.5-10.1); CREATININE SERUM 1.14 MG/DL (0.60-1.30); POTASSIUM 4.7 MMOL/L (3.6-5.0)
== END 2018-07-27 | disposition home or self-care (01) ==
LOC: ONC 10:26
PROVIDERS: ATTEND Internal Medicine Hematology & Oncology
DX: C90.00 Multiple myeloma not having achieved remission (principal); C50.412 Malignant neoplasm of upper-outer quadrant of left female breast; M85.80 Other specified disorders of bone density and structure, unspecified site; Z92.21 Personal history of antineoplastic chemotherapy; Z92.3 Personal history of irradiation; Z79.811 Long term (current) use of aromatase inhibitors; Z79.899 Other long term (current) drug therapy; Z45.2 Encounter for adjustment and management of vascular access device
CPT/HCPCS: 36591; 80053; 82232; 82728; 82784; 83883; 85025; 90471; 90686; 96523

== ENCOUNTER 2018-10-22 09:25 | Outpatient (RCR) | payer MEDICARE, OTHER ==
[~2018-10-22 09:25] MED LIST changes: +DENOSUMAB 60 MG/1 ML (PROLIA) CANCER CTR SQ SCH; +LOSA50TA63 PO; -LOSA50TA7 PO
[2018-10-22 09:41] LABS: BASOPHILS % (AUTO) 0 % (0-10); EOSINOPHILS # (AUTO) 0.1 10^3/uL (0.0-0.3); EOSINOPHILS % (AUTO) 4 % (0-10); HEMATOCRIT 39 % (35-52); HEMOGLOBIN 13.1 G/DL (11.5-16.0); LYMPHOCYTES # (AUTO) 1.1 X 10^3 (1.0-4.0); LYMPHOCYTES % (AUTO) 37 % (12-44); MEAN CORPUSCULAR HEMOGLOBIN 33 PG (25-34); MEAN CORPUSCULAR HGB CONC 34 G/DL (32-36); MEAN CORPUSCULAR VOLUME 99 FL (80-99); MEAN PLATELET VOLUME 9.7 FL (7.4-10.4); MONOCYTES # (AUTO) 0.7 X 10^3 (0.0-1.0); MONOCYTES % (AUTO) 24 % (0-12); NEUTROPHILS # (AUTO) 1.1 X 10^3 (1.8-7.8); NEUTROPHILS % (AUTO) 35 % (42-75); PLATELET COUNT 155 10^3/uL (130-400); RED CELL DISTRIBUTION WIDTH 13.6 % (10.0-14.5)
[2018-10-22 10:02] LABS: ALBUMIN 3.9 GM/DL (3.2-4.5); BILIRUBIN,TOTAL 0.7 MG/DL (0.1-1.0); CALCIUM 9.6 MG/DL (8.5-10.1); CREATININE SERUM 1.01 MG/DL (0.60-1.30); POTASSIUM 4.1 MMOL/L (3.6-5.0); TOTAL PROTEIN 6.9 GM/DL (6.4-8.2)
== END 2018-10-28 | disposition home or self-care (01) ==
LOC: ONC 09:25
PROVIDERS: ATTEND Internal Medicine Hematology & Oncology
DX: C90.00 Multiple myeloma not having achieved remission (principal); C50.412 Malignant neoplasm of upper-outer quadrant of left female breast; M85.80 Other specified disorders of bone density and structure, unspecified site; Z92.21 Personal history of antineoplastic chemotherapy; Z92.3 Personal history of irradiation; Z79.811 Long term (current) use of aromatase inhibitors; Z79.899 Other long term (current) drug therapy; Z45.2 Encounter for adjustment and management of vascular access device
CPT/HCPCS: 36591; 80053; 82232; 82728; 82784; 83883; 84155; 84165; 85025; 96372; 96523

== ENCOUNTER 2019-01-28 08:14 | Outpatient (RCR) | payer MEDICARE, OTHER ==
[~2019-01-28 08:14] MED LIST changes: -DENOSUMAB 60 MG/1 ML (PROLIA) CANCER CTR SQ SCH
[2019-01-28 08:44] LABS: BASOPHILS % (AUTO) 0 % (0-10); EOSINOPHILS # (AUTO) 0.1 10^3/uL (0.0-0.3); EOSINOPHILS % (AUTO) 4 % (0-10); HEMATOCRIT 40 % (35-52); HEMOGLOBIN 12.9 G/DL (11.5-16.0); LYMPHOCYTES # (AUTO) 1.2 X 10^3 (1.0-4.0); LYMPHOCYTES % (AUTO) 39 % (12-44); MEAN CORPUSCULAR HEMOGLOBIN 33 PG (25-34); MEAN CORPUSCULAR HGB CONC 32 G/DL (32-36); MEAN CORPUSCULAR VOLUME 101 FL (80-99); MEAN PLATELET VOLUME 10.2 FL (7.4-10.4); MONOCYTES # (AUTO) 0.5 X 10^3 (0.0-1.0); MONOCYTES % (AUTO) 16 % (0-12); NEUTROPHILS # (AUTO) 1.3 X 10^3 (1.8-7.8); NEUTROPHILS % (AUTO) 41 % (42-75); PLATELET COUNT 173 10^3/uL (130-400); RED CELL DISTRIBUTION WIDTH 13.5 % (10.0-14.5); WHITE BLOOD COUNT 3.2 10^3/uL (4.3-11.0)
[2019-01-28 09:05] LABS: ALBUMIN 3.9 GM/DL (3.2-4.5); BILIRUBIN,TOTAL 0.6 MG/DL (0.1-1.0); CALCIUM 9.4 MG/DL (8.5-10.1); CREATININE SERUM 1.2 MG/DL (0.60-1.30); TOTAL PROTEIN 7.2 GM/DL (6.4-8.2)
== END 2019-02-03 | disposition home or self-care (01) ==
LOC: ONC 08:14
PROVIDERS: ATTEND Internal Medicine Hematology & Oncology
DX: C90.00 Multiple myeloma not having achieved remission (principal); C50.412 Malignant neoplasm of upper-outer quadrant of left female breast; M85.80 Other specified disorders of bone density and structure, unspecified site; Z92.21 Personal history of antineoplastic chemotherapy; Z92.3 Personal history of irradiation; Z79.811 Long term (current) use of aromatase inhibitors; Z79.899 Other long term (current) drug therapy
CPT/HCPCS: 36591; 80053; 82232; 82728; 82784; 83883; 85025; 96523; 99213

== ENCOUNTER 2019-03-11 08:29 | Outpatient (RCR) | payer MEDICARE, OTHER ==
[~2019-03-11 08:29] MED LIST changes: +CYAN-41 PO; -CYAN10006 PO; +DENOSUMAB 60 MG/1 ML (PROLIA) CANCER CTR SQ SCH; -OMEP20CA12 PO; +OMEP20CA13 PO
[2019-05-05] MEDS ORDERED: METO-333 PO (14:06)
[2019-05-05] MEDS ORDERED: LEVA1.2543 NEB (14:06)
== END 2019-05-05 | disposition home or self-care (01) ==
LOC: ONC 08:29
PROVIDERS: ATTEND Internal Medicine Hematology & Oncology
DX: C90.00 Multiple myeloma not having achieved remission (principal); C50.412 Malignant neoplasm of upper-outer quadrant of left female breast; M85.80 Other specified disorders of bone density and structure, unspecified site; Z92.21 Personal history of antineoplastic chemotherapy; Z92.3 Personal history of irradiation; Z79.811 Long term (current) use of aromatase inhibitors; Z79.899 Other long term (current) drug therapy
CPT/HCPCS: 36591; 96372; 99213

== ENCOUNTER 2019-05-05 10:39 | Inpatient (IN) | payer MEDICARE, OTHER ==
[~2019-05-05] VITALS: Ht 160 cm; Wt 66.4 kg
[~2019-05-05 10:39] MED LIST changes: -DENOSUMAB 60 MG/1 ML (PROLIA) CANCER CTR SQ SCH; +FLUO20CA45 PO; +OMEP-280 PO; -OMEP20CA13 PO
--- NOTE | 2019-05-05 11:00 | NUR ---
PT DIRECT ADMIT TO ROOM [address] PIERRE OFFICE. PT ARRIVED TO FLOOR VIA WHEELCHAIR WITH AT SIDE. A/OX4. SOA WITH MOVEMENT FROM CHAIR TO BED. PT DENIES ANY ALLERGIES. ORIENTED PT TO ROOM AND CALL LIGHT. NON SLIP SOCKS APPLIED. CALL LIGHT WITHIN REACH.
[2019-05-05 11:03] VITALS: BP 135/80
[2019-05-05] MEDS ORDERED: PHARMACY TO DOSE IV SCH (11:15)
[2019-05-05] MEDS ORDERED: CATHETER FLUSH 10 ML SYR IV PRN (11:15)
[2019-05-05] MEDS ORDERED: PIPERACILLIN/TAZO 4.5 GM/NS 100 ML IV NR ×2 (11:15)
[2019-05-05] MEDS ORDERED: FLUCONAZOLE 200 MG/100 ML 50 ML, EMPTY IV BAG (PVC) 1 EA IV NR ×2 (11:15)
[2019-05-05] MEDS ORDERED: VANCOMYCIN 1250 MG/NS 250 ML IVPB IV NR ×2 (11:30)
--- NOTE | 2019-05-05 11:34 | Diagnostic Imaging Report ---
INDICATION: Pulmonary congestion PA and lateral chest. Left subclavian Port-A-Cath tip projects over the SVC. There is slight prominence of the perihilar lung markings bilaterally. There is no consolidating alveolar infiltrate. There are no effusions or pneumothoraces. IMPRESSION: There may be some perihilar pneumonitis. Dictated by: Dictated on workstation # [id number]
[2019-05-05 11:53] LABS: HEMOGLOBIN 12.2 G/DL (11.5-16.0); MEAN PLATELET VOLUME 9.8 FL (7.4-10.4); RED CELL DISTRIBUTION WIDTH 14.7 % (10.0-14.5)
[2019-05-05 12:00] VITALS: BP 135/80
[2019-05-05 12:15] LABS: ALBUMIN 3.7 GM/DL (3.2-4.5); BILIRUBIN,TOTAL 1.2 MG/DL (0.1-1.0); CALCIUM 8.9 MG/DL (8.5-10.1); CREATININE SERUM 1.31 MG/DL (0.60-1.30); POTASSIUM 4.2 MMOL/L (3.6-5.0); TOTAL PROTEIN 8.1 GM/DL (6.4-8.2)
[2019-05-05] MEDS ORDERED: FLU QUADRIvalent (5+ YOA) 2019-2020 (AFLURIA) 0.5 ML IM ONE (12:30)
--- NOTE | 2019-05-05 12:41 | NUR ---
VANCOMYCIN DOSING SCR 1.31; CRCL ~ 32; BOLUS VANC 20 MG/KG X 66 KG ~ 1250 MG THEN VANC 15 MG/KG ~ 1 GM Q24H CHECK TROUGH LEVEL BEFORE 3RD DOSE 05/07 AT 1030 HOLD DOSE AND CONTACT PHARMACY IF LEVEL IS GREATER THAN 20
[2019-05-05 13:28] VITALS: BP 135/80
--- NOTE | 2019-05-05 13:29 | Occupational Therapy Eval ---
OT Evaluation-General/PLF Medical Diagnosis Admission Date May 05, 2019 at 10:49 Medical Diagnosis: SOB, weakness, back pain Onset Date: May 05, 2019 Therapy Diagnosis Therapy Diagnosis: weakness, back pain, decreased ADL function Height/Weight Height (Feet): 5 Height (Inches): 0.00 Weight (Pounds): 152 Weight (Ounces): 9.0 Precautions Precautions/Isolations: Standard Precautions Weight Bear Status Weight Bearing Restriction: Weight Bearing/Tolerated Referral Physician: Disha Robbins MD Referral Reason: Activity Tolerance, Self Care, Evaluation/Treatment, Strengthening/ROM Medical History Additional Medical History Pt states chronic back pain due to compression within thoracic spine, High Cholesterol, Hypertension, anxiety/ depression, Current History Active problem list: neutropenic fever, multiple myeloma without remission, pneumonia, fever, cough, hypoxia Reviewed History: Yes Social History Home: Single Level Current Living Status: Spouse Entry Into Home: Stairs With Railing Steps Into Home: 3 Steps Inside Home: 0 ADL-Prior Level of Function SCALE: Activities may be completed with or without assistive devices. 4-Mvvumckxuw-gshuazx completes the activity by him/herself with no assistance from a helper. 5-Set-up or Clean-up Assistance-helper sets up or cleans up; patient completes activity. [place] assists only prior to or following the activity. 4-Supervision or Touching Assistance-helper provides verbal cues and/or touching/steadying and/or contact guard assistance as patient completes activity. Assistance may be provided throughout the activity or intermittently. 3-Partial/Moderate Assistance-helper does LESS THAN HALF the effort. [place] lifts, holds or supports trunk or limbs, but provides less than half the effort. 2-Substantial/Maximal Assistance-helper does MORE THAN HALF the effort. [place] lifts or holds trunk or limbs and provides more than half the effort. 0-Zqbghldow-mtpxhd does ALL the effort. Patient does none of the effort to complete the activity. Or, the assistance of 2 or more helpers is required for the patient to complete the activity. If activity was not attempted, code reason: 7-Patient Refused. 9-Not Applicable-not attempted and the patient did not perform the activity before the current illness, exacerbation or injury. 10-Not Attempted due to Environmental Limitations-(lack of equipment, weather restraints, etc.). 88-Not Attempted due to Medical Conditions or Safety Concerns. Self Care: Independent Functional Cognition: Independent DME/Equipment Comments Pt was IND without AE Pt states no grab bars or shower chair present within tub/shower. Pt states she typically takes warm bath, expresses no difficulty getting in/out. 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 Grand daughter lives close by, does not work and able to come to pt's home if needed. Pt's roles within home are to complete cooking/ cleaning/ laundry. Pt's expresses he helps if needed. Pt and state one previous fall due to seizure within past year. 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 Pt expresses 4/10 pain, dull ache at the moment. Pt states 6/10 pain during walking tasks. Pt agreeable to OT eval/ treat. Mental Status/Objective Patient Orientation: Person, Place, Time, Situation, Normal For Age Current Glasses/Contacts: Yes Hearing Aids: No Dentures/Partials: No Hand Dominance: Right Upper Extremity ROM WFL BUE Upper Extremity Coordination WFL BUE Upper Extremity Sensation WFL BUE Pt states numbness/ tingling within bilateral feet at times during the night Upper Extremity Strength WFL BUE= 4/5 Edema: none noted ADL-Treatment Eating (QC): 6 (Pt asks for drink of water, states nursing requests no water for time being. Based on clinical judgement, pt able to eat/ drink IND.) Oral Hygiene (QC): 6 (Based on clinical judgement of coordination and sequencing, pt able to complete teeth brushing IND.) Shower/Bathe Self (QC): 6 (Based on clinical judgement and safety awareness/ ROM/ strength of pt, pt able to complete showering tasks IND. ) Upper Body Dressing (QC): 6 (Based on clinical judgement of pt's ROM, strength, sequencing abilities, pt able to complete UB dressing tasks IND.) Lower Body Dressing (QC): 6 (Pt completes with IND) On/Off Footwear (QC): 6 (Pt completes EOB with IND.) Toileting Hygiene (QC): 6 (Pt completes with IND.) Toilet Transfer (QC): 6 (Pt completes without use of grab bars with IND.) Other Treatments Pt agreeable to OT eval/ treat. Pt states she has no difficulties with I/ADL tasks, was previously IND with all without AE. Pt completes all addressed ADLs with IND. Pt completes bed mob with IND, functional mobility with safety and IND. Pt states pain in mid-back during mobilization to bathroom, states chronic issue. Pt completes UE theraband exercises with skilled cues for positioning and resistance levels. Pt completes 4/4 exercises, 5 reps per arm/ 1 set per exercise. Pt demonstrates competence in abilities to follow modeling and verbal direction. Pt states main concern is "hitting bumps," stating her health fluctuates and she has "had this cough" for a few weeks; pt states she came in to the hospital due to doctor's suggestion. Pt educated on correct positioning. Pt left in bed with call light in reach, all needs met, present. Pt denies need for 1 of 2 bed rails to be up. Education OT Patient Education: Correct positioning, Exercise program, Home exercise program, Purpose of tx/functional activities, Safety issues Teaching Recipient: Patient, Family Teaching Methods: Demonstration, Handout, Discussion Response to Teaching: Verbalize Understanding, Return Demonstration, Reinforcement Needed OT Short Term Goals Short Term Goals Eating(FIM): 6 Grooming(FIM): 6 Bathing(FIM): 6 1=Demonstrate adherence to instructed precautions during ADL tasks. 2=Patient will verbalize/demonstrate understanding of assistive devices/modifications for ADL. 3=Patient will improve strength/tolerance for activity to enable patient to perform ADL's. OT Residential Goals Documentation Coordinator Goals Eating (QC): 6 Oral Hygiene (QC): 6 Shower/Bathe Self (QC): 6 Upper Body Dressing (QC): 6 Lower Body Dressing (QC): 6 On/Off Footwear (QC): 6 Toileting Hygiene (QC): 6 Toilet/Commode Transfer (QC): 6 Additional Goals: 1-Demonstrate ADL Tasks, 2-Verbalize Understanding, 3- ImproveStrength/Sanchez 1=Demonstrate adherence to instructed precautions during ADL tasks. 2=Patient will verbalize/demonstrate understanding of assistive devices/modifications for ADL. 3=Patient will improve strength/tolerance for activity to enable patient to perform ADL's. OT Education/Plan Problem List/Assessment Assessment: Decreased Activ Tolerance, Decreased UE Strength (and endurance) Discharge Recommendations Plan/Recommendations: Continue POC Comment To be determined. Patient/Family Goals Return home with . Treatment Plan/Plan of Care Treatment,Training & Education: Yes Patient would benefit from OT for education, treatment and training to promote independence in ADL's, mobility, safety and/or upper extremity function for ADL's. Plan of Care: Caregiver Training, Functional Mobility, Group Exercise/Act as Ind, UE Funct Exercise/Act Comment Pt to be seen by skilled OT to focus on functional endurance, strength, and education for daily tasks. Treatment Duration: May 05, 2019 Frequency: 5 times per week Estimated Hrs Per Day: .25 hour per day Agreement: Yes Time/GCodes Start Time: 11:35 Stop Time: 12:00 Total Time Billed (hr/min): 25 Billed Treatment Time 1 EVL (10), EX (15)= 25 LAURY LEAL OTR May 05, 2019 13:29
[2019-05-05] MEDS: NS IV 1000 ML 1,000 ML IV SCH (13:32)
[2019-05-05] MEDS: ENOXAPARIN 40 MG/0.4 ML (LOVENOX) SYR SC SCH (13:32)
[2019-05-05] MEDS: LACTOBACILLUS ACIDOPHILUS (PROBIOTIC) CAPSULE PO SCH ×2 (13:32→18:37)
[2019-05-05] MEDS ORDERED: LEVA1.2543 NEB (14:06)
[2019-05-05] MEDS ORDERED: METO-333 PO (14:06)
--- NOTE | 2019-05-05 14:23 | Physical Therapy Evaluation ---
PT Evaluation-General Medical Diagnosis Admission Date May 05, 2019 at 10:49 Medical Diagnosis: SOB, weakness, back pain Onset Date: May 05, 2019 Therapy Diagnosis Therapy Diagnosis: impaired strength, endurance, bed mobility, HAMMONDS Height/Weight Height (Feet): 5 Height (Inches): 0.00 Weight (Pounds): 152 Weight (Ounces): 9.0 Precautions Precautions/Isolations: Standard Precautions Referral Physician: Disha Robbins MD Reason for Referral: Evaluation/Treatment Medical History Additional Medical History Medical History Additional Medical History Pt states chronic back pain due to compression within thoracic spine Current History Active problem list: neutropenic fever, multiple myeloma without remission, pneumonia, fever, cough, hypoxia Reviewed History: Yes Social History Home: Single Level Current Living Status: Spouse Entry Into Home: Stairs With Railing PT Steps Into Home: 2 (rails B/L) PT Steps Inside Home: 0 Prior Prior Level of Function SCALE: Activities may be completed with or without assistive devices. 9-Jbzuncxlhy-hyqajdj completes the activity by him/herself with no assistance from a helper. 5-Set-up or Clean-up Assistance-helper sets up or cleans up; patient completes activity. [place] assists only prior to or following the activity. 4-Supervision or Touching Assistance-helper provides verbal cues and/or touching/steadying and/or contact guard assistance as patient completes activity. Assistance may be provided throughout the activity or intermittently. 3-Partial/Moderate Assistance-helper does LESS THAN HALF the effort. [place] lifts, holds or supports trunk or limbs, but provides less than half the effort. 2-Substantial/Maximal Assistance-helper does MORE THAN HALF the effort. [place] lifts or holds trunk or limbs and provides more than half the effort. 4-Wyckeogbf-rumynk does ALL the effort. Patient does none of the effort to complete the activity. Or, the assistance of 2 or more helpers is required for the patient to complete the activity. If activity was not attempted, code reason: 7-Patient Refused. 9-Not Applicable-not attempted and the patient did not perform the activity before the current illness, exacerbation or injury. 10-Not Attempted due to Environmental Limitations-(lack of equipment, weather restraints, etc.). 88-Not Attempted due to Medical Conditions or Safety Concerns. Bed Mobility: 6 Transfers (B,C,W/C): 6 Gait: 6 Stairs: 6 Indoor Mobility (Ambulation): Independent Stairs: Independent Prior Devices Use: None Pt reports she did all of the cooking and cleaning at home. PT Evaluation-Current Subjective Pt in bed pre-tx. Pt agrees to PT. Pt/Family Goals Pt goals are to get back independence in her home. Objective Patient Orientation: Person, Place, Situation Attachments: Central Line ROM/Strength ROM Lower Extremities WNL Strength Lower Extremities WNL Sensory Vision: Wears Glasses Hearing: Functional Hand Dominance: Right Transfers Roll Left to Right (QC): 6 Lying to Sitting/Side of Bed(Q: 4 (CGA) Sit to Stand (QC): 4 (CGA) Gait Does the Patient Walk?: Yes Mode of Locomotion: Walk Anticipated Mode of Locomotion: Walk Walk 10 feet (QC): 4 (CGA) Walk 50 ft with 2 Turns(QC): 4 (CGA) Walk 150 ft (QC): 4 (CGA) Distance: 200ft Gait Assistive Device: FWW Comments/Gait Description Pt uses step through gait pattern with proper speed of ambulation. Pt demonstrates 2-3 minimal balance problems with no gross LOB. Balance Sitting Static: Normal Sitting Dynamic: Good Standing Static: Good Standing Dynamic: Fair Treatment Gait training, Transfer training. Assessment/Needs Pt with proper step through gait pattern. pt was limited during ambulation to 3 standing rest breaks for HAMMONDS rated 2-3/10 that pt recovered from in 30 seconds and returned to walking. Pt demonstrates slightly impaired dynamic standing balance. Pt in recliner post-tx with feet up. Pt with nurse call light, room phone, and tray table in reach. Rehab Potential: Fair PT Special Tax Auditor Goals Prison Goals PT Prison Goals Time Frame: May 12, 2019 Sit to Lying (QC): 4 (SBA) Lying-Sitting on Side/Bed(QC): 4 (SBA) Sit to Stand (QC): 4 (SBA) Roll Left to Right (QC): 4 (SBA) Chair/Ojn-vk-Orxys Xfer(QC): 4 (SBA) Distance: 500ft with 2 or less standing rest breaks Walk 10 feet (QC): 4 (SBA) Walk 10ft-Uneven Surface(QC): 4 (SBA) Walk 50ft with 2 Turns (QC): 4 (SBA) Walk 150 ft (QC): 4 (SBA) Gait Assistive Device: FWW PT Plan Problem List Problem List: Activity Tolerance, Functional Strength, Safety, Balance, Gait, Transfer, Bed Mobility Treatment/Plan Treatment Plan: Continue Plan of Care Treatment Plan: Bed Mobility, Education, Functional Activity Sanchez, Functional Strength, Gait, Safety, Therapeutic Exercise, Transfers Frequency: 6 times per week Estimated Hrs Per Day: .25 hour per day Patient and/or Family Agrees t: Yes Pt will perform LE exercise, bed mobility, strength training, endurance training, transfer training, and education to improve functional mobility. Safety Risks/Education Patient Education: Gait Training, Transfer Techniques, Correct Positioning, W/C Management, Safety Issues Teaching Recipient: Patient Teaching Methods: Demonstration, Discussion Response to Teaching: Verbalize Understanding, Return Demonstration, Reinforcement Needed Discharge Recommendations Therapy Discharge Recommendati: Other, See Comments (home with family) Equpiment Recommendations-D/C: Front Wheeled Walker Time/GCodes Time In: 1400 Time Out: 1430 Total Billed Treatment Time: 30 Total Billed Treatment 1 visit LYNDON 15' GT 15' FALLON ANDERSEN PT May 05, 2019 14:23
[2019-05-05] MEDS: CATHETER FLUSH 10 ML SYR IV SCH ×2 (14:33→22:00)
--- NOTE | 2019-05-05 14:46 | NUR ---
WENT OVER THE EXT MED HX WITH THE PATIENT AND SHE VERIFIED HOW SHE TAKES THEM. SHE ALSO TAKES THE FOLLOWING OTC: ASPIRIN 81MG DAILY CALCIUM +D DAILY B12 DAILY IRON 1700 MTV DAILY NIACIN HS
[2019-05-05] MEDS: RT-ALBUTEROL/IPRATROPIUM 3 ML (DUONEB) VIAL INH SCH ×2 (15:02→18:30)
--- NOTE | 2019-05-05 15:28 | NUR ---
Swing Bed Note: Qualifies for swing bed for need of multiple IV needs (UTI and Pneumonia) with continued need for Physical et Occupational therapies. Ultimate goal is to return home at prior level of function of independent level of function in all ADL's.
--- NOTE | 2019-05-05 15:33 | NUR ---
Admission Drug Regimen Review: Date: 05/05/19 Time: 153 Review Completed, No Issues found
[2019-05-05 16:30] VITALS: BP 110/73
[2019-05-05] MEDS ORDERED: RT-ALBUTEROL/IPRATROPIUM 3 ML (DUONEB) VIAL INH PRN (17:00)
[2019-05-05] MEDS: PIPERACILLIN/TAZOBACTAM (BULK) 4.5 GM in NS (IVPB) 100 ML IV SCH (18:37)
--- NOTE | 2019-05-05 19:26 | History & Physical ---
History of Present Illness History of Present Illness Reason for visit/HPI THE PATIENT REPORTS THAT SHE HAS RECENTLY BEEN HOSPITALIZED FOR PNEUMONIA AND A URINARY TRACT INFECTION - FROM APRIL 22 TO APRIL 24 SHE WAS HOSPITALIZED AND FROM APRIL 27 TO MAY 02 SHE WAS ON THE SWING BED STATUS. SHE REPORTS THAT SINCE HER DISCHARGE SHE HAS NOT BEEN FEELING WELL, SHE HAS HAD PROGRESSIVE WORSENING OF HER COUGH, PROGRESSIVE FATIGUE AND FEVERS. SHE REPORTS SHORTNESS OF BREATH WITH AMBULATION AND UPON EVALUATION IN THE OFFICE THIS MORNING SHE REPORTS THAT SHE JUST DOES NOT FEEL WELL ENOUGH TO GO HOME. HER OXYGEN WAS AT 90% ON ROOM AIR IN THE OFFICE. HER HAS ALSO BEEN SICK FOR THE PAST FEW DAYS. Date of Admission May 05, 2019 at 10:49 Date Seen by a Provider: May 05, 2019 Time Seen by a Provider: 10:00 I consulted on this patient on 05/05/19 19:26 Attending Physician Ortega Robbins MD Admitting Physician Ortega Robbins MD Consult Allergies and Home Medications Allergies Coded Allergies: No Known Drug Allergies (Verified , 05/05/19) Home Medications Acyclovir 400 Mg Tablet, 400 MG PO DAILY, (Reported) Aspirin 81 Mg Tablet.dr, 81 MG PO DAILY, (Reported) Calcium Carbonate/Vitamin D3 1 Each Tablet, 1 TAB PO DAILY, (Reported) Cyanocobalamin (Vitamin B-12) 1,000 Mcg Tablet, 1,000 MCG PO DAILY, (Reported) Ferrous Sulfate 325 Mg Tablet, 325 MG PO 1700, (Reported) Fluoxetine HCl 20 Mg Capsule, 20 MG PO DAILY, (Reported) Letrozole 2.5 Mg Tablet, 2.5 MG PO DAILY, (Reported) Levalbuterol HCl 1.25 Mg/3 Ml Vial.neb, 1.25 MG NEB Q4H PRN for SHORTNESS OF BREATH, (Reported) Levothyroxine Sodium 75 Mcg Tablet, 75 MCG PO DAILY, (Reported) Lovastatin 20 Mg Tablet, 20 MG PO HS, (Reported) Metoprolol Tartrate 25 Mg Tablet, 12.5 MG PO BID, (Reported) TAKES 1/2 (25MG) TABLET Multivitamin 1 Each Tablet, 1 TAB PO DAILY, (Reported) Niacinamide 500 Mg Tablet, 500 MG PO HS, (Reported) Olanzapine 2.5 Mg Tablet, 2.5 MG PO DAILY, (Reported) Omeprazole 20 Mg Capsule.dr, 20 MG PO 1200,1700, (Reported) Oxycodone HCl/Acetaminophen 1 Each Tablet, 1 TAB PO Q4H PRN for PAIN-MODERATE, (Reported) Patient Home Medication List Home Medication List Reviewed: Yes Past Ipcovdq-Eksncv-Iabsnv Hx Past Med/Social Hx: Reviewed Nursing Past Med/Soc Hx Patient Social History Marrital Status: Living Status: LIVES AT HOME WITH HER SPOUSE Employed/Student: retired Smoking Status: Former Smoker Former Smoker, Quit: Apr 30, 1987 2nd Hand Smoke Exposure: No Physical Abuse Screen: No Sexual Abuse: No Recent Foreign Travel: No Contact w/other who traveled: No Recent Hopitalizations: Yes Recent Infectious Disease Expo: No Immunizations Up To Date Date of Pneumonia Vaccine: May 05, 2017 Date of Influenza Vaccine: Apr 20, 2017 Seasonal Allergies Seasonal Allergies: Yes Past Medical History Surgeries: Hysterectomy, Lumpectomy, Orthopedic Respiratory: Pneumonia Currently Using CPAP: No Currently Using BIPAP: No Cardiac: High Cholesterol, Hypertension : No Reproductive: No Sexually Transmitted Disease: No HIV/AIDS: No Female Reproductive Disorders: Denies Gastrointestinal: Chronic Diarrhea Musculoskeletal: Chronic Back Pain HEENT: Cataract Loss of Vision: Denies Cancer: Leukemia (MULTIPLE MYELOMA), Breast Did You Recieve Any Treatments: Yes What Type of Treatment Did You: Chemotherapy, Other Psychosocial: Anxiety, Depression History of Blood Disorders: Yes (MULT.MYELOMA) Adverse Reaction to Blood Gambino: No Family History Reviewed Nursing Family Hx Diabetes mellitus 19 FATHER Heart Disease, Hypertension Review of Systems Constitutional: No chills; fever, malaise, weakness EENTM: No hoarseness, No throat pain Respiratory: cough, dyspnea on exertion, short of breath Cardiovascular: No chest pain, No palpitations Gastrointestinal: No abdominal pain; loss of appetite Genitourinary: no symptoms reported; No decreased output; frequency Musculoskeletal: no symptoms reported Skin: no symptoms reported Psychiatric/Neurological: Denies Anxiety; Depressed, Weakness All Other Systems Reviewed Negative Unless Noted: Yes Physical Exam Vital Signs Vital Signs - First Documented 05/05/19 05/05/19 05/05/19 11:03 12:00 13:28 Temp 37.0 Pulse 128 Resp 20 B/P (MAP) 135/80 Pulse Ox 94 O2 Delivery Room Air FiO2 21 Capillary Refill : Height, Weight, BMI Height: 5'0.00" Weight: 152lbs. 9.0oz. 69.882713sz; 25.93 BMI Method:Stated General Appearance: WD/WN, Mild Distress (WITH BREATHING) Eyes: Bilateral Eye Normal Inspection, Bilateral Eye PERRL, Bilateral Eye EOMI HEENT: PERRL/EOMI, Pharynx Normal Neck: Full Range of Motion, Non Tender, Supple Respiratory: Chest Non Tender, Crackles (MID LUNG TO BASE BILATERALLY - LEFT GREATER THAN RIGHT), Decreased Breath Sounds, Rhonci, Wheezing Cardiovascular: Tachycardia Gastrointestinal: Normal Bowel Sounds, No Organomegaly, Non Tender, Soft Rectal: Deferred Back: Normal Inspection, No Vertebral Tenderness Extremity: Normal Capillary Refill, Normal Range of Motion, Non Tender, No Calf Tenderness, No Pedal Edema Neurologic/Psychiatric: Alert, Oriented x3, No Motor/Sensory Deficits, Normal Mood/Affect, screwhead polisher II-XII Norm as Tested Skin: Normal Color, Warm/Dry Lymphatic: No Adenopathy Assessment/Plan Assessment and Plan PNEUMONIA HYPOXIA HYPERTENSION CHRONIC LEUKOPENIA SCHIZOPHRENIA HYPOTHYROID CHRONIC IRON DEFICIENCY ANEMIA PNEUMONIA WITH HYPOXIA - PT PLACED ON PNEUMONIA PROTOCOL, RX FOR ZOSYN AND VANCOMYCIN WITH MAT PROTOCOL, WILL MONITOR SERIAL CHEST XRAYS - PT TO BE STARTED ON PREDNISONE. - LACTIC ACID NEGATIVE. HYPERTENSION - RESTART METOPROLOL CHRONIC LEUKOPENIA - MONITOR LABS SCHIZOPHRENIA - RESTART ANTIPSYCHOTICS HYPOTHYROID - RESTART SYNTHROID CHRONIC IRON DEFICIENCY ANEMIA - SUPPORTIVE CARE AT THIS TIME. PT ADMITTED TO THE HOSPITAL ON SWING-BED STATUS DUE TO HER RECURRENT PNEUMONIA AND RECENT HOSPITALIZATION WITH PNEUMONIA. Admission Diagnosis PNEUMONIA HYPOXIA HYPERTENSION CHRONIC LEUKOPENIA SCHIZOPHRENIA HYPOTHYROID CHRONIC IRON DEFICIENCY ANEMIA Admission Status: Other (Swing Bed) Clinical Quality Measures DVT/VTE Risk/Contraindication: Risk Factor Score Per Nursin RFS Level Per Nursing on Admit: 3=High ORTEGA ROBBINS MD May 05, 2019 19:26
[2019-05-05 19:44] VITALS: BP 111/74
[2019-05-05] MEDS: meTOprolol TARTRATE 25 MG (LOPRESSOR) TABLET PO SCH (21:39)
[2019-05-05] MEDS: oxyCODONE/APAP 5/325MG (PERCOCET 5) TABLET PO PRN (21:39)
[2019-05-05 23:35] VITALS: BP 105/63
[2019-05-06] MEDS: PIPERACILLIN/TAZOBACTAM (BULK) 4.5 GM in NS (IVPB) 100 ML IV SCH ×3 (01:46→17:26)
[2019-05-06 04:10] VITALS: BP 111/52
[2019-05-06 05:43] LABS: HEMOGLOBIN 9.9 G/DL (11.5-16.0); MEAN PLATELET VOLUME 9.5 FL (7.4-10.4); RED CELL DISTRIBUTION WIDTH 14.6 % (10.0-14.5); WHITE BLOOD COUNT 1.7 10^3/uL (4.3-11.0)
[2019-05-06] MEDS: CATHETER FLUSH 10 ML SYR IV SCH ×3 (06:00→22:00)
[2019-05-06] MEDS: LACTOBACILLUS ACIDOPHILUS (PROBIOTIC) CAPSULE PO SCH ×3 (06:10→16:27)
[2019-05-06] MEDS: MULTIVIT W/MINERALS TAB (THERAGRAN M) PO SCH (06:10)
[2019-05-06] MEDS: CYANOCOBALAMIN 1,000 MCG (VITAMIN B-12) TABLET PO SCH (06:11)
[2019-05-06] MEDS: RT-ALBUTEROL/IPRATROPIUM 3 ML (DUONEB) VIAL INH SCH ×4 (07:23→18:48)
[2019-05-06 08:02] VITALS: BP 122/55
--- NOTE | 2019-05-06 08:28 | Diagnostic Imaging Report ---
INDICATION: Pneumonia. PA and lateral views of the chest are obtained. FINDINGS: Since examination of one day earlier, there is slight worsening of predominantly interstitial perihilar markings. No new consolidation, pneumothorax or significant pleural fluid is identified. Compression fracture deformities in the lower thoracic and upper lumbar spine are similar. IMPRESSION: Mild worsening perihilar edema and/or pneumonitis compared to study of one day earlier. Dictated by: Dictated on workstation # [id number]
[2019-05-06] MEDS: fluCOnazole (DIFLUCAN) 100 MG TAB PO SCH (08:36)
[2019-05-06] MEDS: OLANZapine 2.5 MG (ZyPREXA) TAB PO SCH (08:36)
[2019-05-06] MEDS: ACYCLOVIR 400 MG TABLET (ZOVIRAX) PO SCH (08:36)
[2019-05-06] MEDS: LEVOTHYROXINE 75 MCG (LEVOTHROID) TABLET PO SCH (08:37)
[2019-05-06] MEDS: ASPIRIN E.C. 81 MG (ECOTRIN) TAB PO SCH (08:37)
[2019-05-06] MEDS: meTOprolol TARTRATE 25 MG (LOPRESSOR) TABLET PO SCH ×2 (08:37→21:28)
[2019-05-06] MEDS: FLUoxetine HCL 20 MG (PROzac) CAP PO SCH (08:38)
[2019-05-06] MEDS: NS IV 1000 ML 1,000 ML IV SCH (08:44)
[2019-05-06] MEDS: LETROZOLE 2.5 MG (FEMARA) TAB PO SCH (08:45)
--- NOTE | 2019-05-06 08:53 | Progress Note ---
Subjective Date Seen by a Provider: May 06, 2019 Time Seen by a Provider: 08:53 Subjective/Events-last exam PT REPORTS THAT SHE IS FEELING BETTER TODAY. SHE STATES THAT HER SHORTNESS OF BREATH HAS IMPROVED A LOT AFTER ADMISSION AND RECEIVING BREATHING TREATMENTS. SHE REPORTS THAT SHE HAS NOT HAD FEVER. Review of Systems General: Fatigue HEENT: No Head Aches Pulmonary: Dyspnea, Cough Cardiovascular: No: Chest Pain Gastrointestinal: No: Nausea, Abdominal Pain Genitourinary: No Dysuria, No Frequency Musculoskeletal: No: back pain Neurological: No: Weakness, Confusion Focused Exam Lactate Level 05/05/19 11:31: Lactic Acid Level 1.80 Objective Exam Last Set of Vital Signs Vital Signs Date Time Temp Pulse Resp B/P (MAP) Pulse Ox O2 Delivery O2 Flow Rate FiO2 05/06/19 08:02 36.5 92 20 122/55 (77) 94 Room Air 05/05/19 13:28 21 Capillary Refill : I&O Intake and Output 05/06/19 00:00 Intake Total 1160 ml Balance 1160 ml Intake Oral 1040 ml IV Total 120 ml # Voids 6 # Bowel Movements 2 Daily Weight Change No No General: Alert, Oriented X3, Cooperative, No Acute Distress HEENT: Atraumatic, PERRLA, Mucous Memb Moist/[place] Neck: Supple Lungs: Other (DECREASED THROUGHOUT - WITH CRACKLES THROUGHOUT) Heart: Regular Rate Abdomen: Normal Bowel Sounds, Soft, No Tenderness Extremities: No Clubbing Skin: No Rashes Neuro: Cranial Nerves 3-12 NL Psych/Mental Status: Mental Status NL, Mood NL Results Lab Laboratory Tests 05/05/19 11:31: Lactic Acid Level 1.80 05/05/19 11:40: White Blood Count 3.0L, Red Blood Count 3.94L, Hemoglobin 12.2, Hematocrit 39, Mean Corpuscular Volume 100H, Mean Corpuscular Hemoglobin 31, Mean Corpuscular Hemoglobin Concent 31L, Red Cell Distribution Width 14.7H, Platelet Count 245, Mean Platelet Volume 9.8, Sodium Level 137, Potassium Level 4.2, Chloride Level 101, Carbon Dioxide Level 24, Anion Gap 12, Blood Urea Nitrogen 16, Creatinine 1.31H, Estimat Glomerular Filtration Rate 40, BUN/Creatinine Ratio 12, Glucose Level 138H, Calcium Level 8.9, Corrected Calcium 9.1, Total Bilirubin 1.2H, Aspartate Amino Transf (AST/SGOT) 25, Alanine Aminotransferase (ALT/SGPT) 22, Alkaline Phosphatase 69, Total Protein 8.1, Albumin 3.7 05/06/19 05:30: White Blood Count 1.7L, Red Blood Count 3.19L, Hemoglobin 9.9L, Hematocrit 32L, Mean Corpuscular Volume 100H, Mean Corpuscular Hemoglobin 31, Mean Corpuscular Hemoglobin Concent 31L, Red Cell Distribution Width 14.6H, Platelet Count 179, Mean Platelet Volume 9.5 Assessment/Plan Assessment/Plan Assess & Plan/Chief Complaint PNEUMONIA HYPOXIA HYPERTENSION CHRONIC LEUKOPENIA SCHIZOPHRENIA HYPOTHYROID CHRONIC IRON DEFICIENCY ANEMIA PNEUMONIA WITH HYPOXIA - PT PLACED ON PNEUMONIA PROTOCOL, RX FOR ZOSYN AND VANCOMYCIN WITH MAT PROTOCOL, WILL MONITOR SERIAL CHEST XRAYS - PT STARTED ON SOLUMEDROL - LACTIC ACID NEGATIVE. HYPERTENSION - RESTARTED METOPROLOL - MONITOR BLOOD PRESSURES CLOSELY CHRONIC LEUKOPENIA - MONITOR LABS SCHIZOPHRENIA - RESTARTED ANTIPSYCHOTICS HYPOTHYROID - RESTARTED SYNTHROID CHRONIC IRON DEFICIENCY ANEMIA - SUPPORTIVE CARE AT THIS TIME. - MONITOR LABS PT ADMITTED TO THE HOSPITAL ON SWING-BED STATUS DUE TO HER RECURRENT PNEUMONIA AND RECENT HOSPITALIZATION WITH PNEUMONIA. THERAPIES STARTED WELL FOR PATIENT DUE TO HER PROLONGED HOSPITALIZATION Clinical Quality Measures Admission Status Admission Dx PNEUMONIA HYPOXIA HYPERTENSION CHRONIC LEUKOPENIA SCHIZOPHRENIA HYPOTHYROID CHRONIC IRON DEFICIENCY ANEMIA DVT/VTE Risk/Contraindication: Risk Factor Score Per Nursin RFS Level Per Nursing on Admit: 3=High ORTEGA PIERRE MD May 06, 2019 08:53
--- NOTE | 2019-05-06 10:03 | Physical Therapy Daily Note ---
PT Daily Note-Current Subjective Pt in bed pre tx. Pt agrees to PT today. Pt reports she is feeling better today and was able to sleep good last night. Pt has decreased pain from yesterday. Appearance Pt in recliner post-tx with LE elevated. Pt with call light, room phone, tray in reach and all needs met. Mental Status Patient Orientation: Person, Place, Situation Attachments: Central Line Transfers SCALE: Activities may be completed with or without assistive devices. 9-Tlfpijqxux-bnvbqtl completes the activity by him/herself with no assistance from a helper. 5-Set-up or Clean-up Assistance-helper sets up or cleans up; patient completes activity. [place] assists only prior to or following the activity. 4-Supervision or Touching Assistance-helper provides verbal cues and/or touching/steadying and/or contact guard assistance as patient completes activity. Assistance may be provided throughout the activity or intermittently. 3-Partial/Moderate Assistance-helper does LESS THAN HALF the effort. [place] lifts, holds or supports trunk or limbs, but provides less than half the effort. 2-Substantial/Maximal Assistance-helper does MORE THAN HALF the effort. [place] lifts or holds trunk or limbs and provides more than half the effort. 8-Tjzklfrnr-uktaqh does ALL the effort. Patient does none of the effort to complete the activity. Or, the assistance of 2 or more helpers is required for the patient to complete the activity. If activity was not attempted, code reason: 7-Patient Refused. 9-Not Applicable-not attempted and the patient did not perform the activity before the current illness, exacerbation or injury. 10-Not Attempted due to Environmental Limitations-(lack of equipment, weather restraints, etc.). 88-Not Attempted due to Medical Conditions or Safety Concerns. Roll Left to Right (QC): 4 (SBA) Sit to Stand (QC): 4 (CGA) Gait Training Does the Patient Walk?: Yes Distance: 350' rest break then 80' Walk 10 feet (QC): 4 (CGA) Walk 50 ft with 2 Turns(QC): 4 (CGA VC to keep FWW close during turns) Walk 150 ft (QC): 4 (CGA) Gait Persons Needed: 1 Gait Assistive Device: FWW Pt ambulates with slightly increased speed today using proper step through pattern. Pt with noted out toeing on R LE with mod pronated R foot. Exercises Supine Ex: Ankle pumps, Heel Slides, Straight leg raise Supine Reps: 20 Treatments Pt performed LE strengthening exercise, bed mobility, transfer training, gait training. Assessment Current Status: Good Progress Pt dick increased ambulation distance with decreased HAMMONDS from last session requiring only 1 rest break this date. PT After School Teacher Goals Halfway Goals PT After School Teacher Goals Time Frame: May 12, 2019 Sit to Lying (QC): 4 (SBA) Lying-Sitting on Side/Bed(QC): 4 (SBA) Sit to Stand (QC): 4 (SBA) Roll Left to Right (QC): 4 (SBA) Chair/Clv-ld-Xwkjq Xfer(QC): 4 (SBA) Distance: 500ft with 2 or less standing rest breaks Walk 10 feet (QC): 4 (SBA) Walk 10ft-Uneven Surface(QC): 4 (SBA) Walk 50ft with 2 Turns (QC): 4 (SBA) Walk 150 ft (QC): 4 (SBA) Gait Assistive Device: FWW PT Plan Problem List Problem List: Activity Tolerance, Functional Strength, Safety, Balance, Gait, Transfer, Bed Mobility Treatment/Plan Treatment Plan: Continue Plan of Care Treatment Plan: Bed Mobility, Education, Functional Activity Sanchez, Functional Strength, Gait, Safety, Therapeutic Exercise, Transfers Frequency: 6 times per week Estimated Hrs Per Day: .25 hour per day Patient and/or Family Agrees t: Yes Safety Risks/Education Patient Education: Gait Training, Transfer Techniques, Correct Positioning, Safety Issues Teaching Recipient: Patient Teaching Methods: Demonstration, Discussion Response to Teaching: Verbalize Understanding, Return Demonstration, Rein forcement Needed Time/GCodes Time In: 938 Time Out: 954 Total Billed Treatment Time: 16 Total Billed Treatment 1 visit 16' FALLON SEYMOUR PT May 06, 2019 10:03
[2019-05-06] MEDS: PANTOPRAZOLE 20 MG TABLET (PROTONIX) PO SCH ×2 (11:01→17:25)
[2019-05-06] MEDS: methylPREDNISolone 125 MG (Solu-MEDROL) VIAL IVP SCH ×3 (11:01→21:28)
[2019-05-06] MEDS ORDERED: VANCOMYCIN 1 GM/NS 250 ML IVPB IV SCH ×2 (11:30)
[2019-05-06] MEDS: ENOXAPARIN 40 MG/0.4 ML (LOVENOX) SYR SC SCH (11:37)
--- NOTE | 2019-05-06 11:39 | Occupational Ther Daily Note ---
OT Current Status-Daily Note Subjective Pt seen in recliner chair, pt states 3/10 pain in back. Pt states she slept well, not too fatigued. Pt agreeable to OT tx session. Mental Status/Objective Patient Orientation: Normal For Age ADL-Treatment Therapy Code Descriptions/Definitions Functional [place] Measure: 0=Not Assessed/NA 4=Minimal Assistance 1=Total Assistance 5=Supervision or Setup 2=Maximal Assistance 6=Modified [place] 3=Moderate Assistance 7=Complete IndependenceSCALE: Activities may be completed with or without assistive devices. 1-Pdcoedxeso-wfczygm completes the activity by him/herself with no assistance from a helper. 5-Set-up or Clean-up Assistance-helper sets up or cleans up; patient completes activity. [place] assists only prior to or following the activity. 4-Supervision or Touching Assistance-helper provides verbal cues and/or touching/steadying and/or contact guard assistance as patient completes activity. Assistance may be provided throughout the activity or intermittently. 3-Partial/Moderate Assistance-helper does LESS THAN HALF the effort. [place] lifts, holds or supports trunk or limbs, but provides less than half the effort. 2-Substantial/Maximal Assistance-helper does MORE THAN HALF the effort. [place] lifts or holds trunk or limbs and provides more than half the effort. 0-Xazndsdyq-rdqlug does ALL the effort. Patient does none of the effort to complete the activity. Or, the assistance of 2 or more helpers is required for the patient to complete the activity. If activity was not attempted, code reason: 7-Patient Refused. 9-Not Applicable-not attempted and the patient did not perform the activity before the current illness, exacerbation or injury. 10-Not Attempted due to Environmental Limitations-(lack of equipment, weather restraints, etc.). 88-Not Attempted due to Medical Conditions or Safety Concerns. Eating (QC): 6 Shower/Bathe Self (QC): 5 (Pt completes sponge bath with wipes to UE with SUP due to IV line. Pt able to manipualte packaging and completed UE bathing.) Other Treatment Pt educated on pursed lip breathing, diaphragmic breathing, and home safety with hand out given to pt. Pt educated of upright-seated benefits throughout the day. Pt states understanding, able to return-demonstrate pursed lip breathing and diaphragmic breathing techniques. Pt states discomfort of back, pt given 2 pillow with instruction to complete donning pillow case. Pt completes activity with IND while seated. Pt requests to bath UE with wipes, completes with SUP due to IV site. Pt left with call light in reach, all needs met. Education OT Patient Education: Correct positioning, Disease process, Purpose of tx/functional activities, Safety issues, Other (see treatment above) Teaching Recipient: Patient Teaching Methods: Demonstration, Handout, Discussion Response to Teaching: Verbalize Understanding, Return Demonstration, Reinforcement Needed OT Short Term Goals Short Term Goals Eating(FIM): 6 Grooming(FIM): 6 Bathing(FIM): 6 1=Demonstrate adherence to instructed precautions during ADL tasks. 2=Patient will verbalize/demonstrate understanding of assistive devic es/modifications for ADL. 3=Patient will improve strength/tolerance for activity to enable patient to perform ADL's. OT Dining Car Steward Goals Dining Car Steward Goals Eating (QC): 6 (met) Oral Hygiene (QC): 6 Shower/Bathe Self (QC): 6 Upper Body Dressing (QC): 6 Lower Body Dressing (QC): 6 On/Off Footwear (QC): 6 Toileting Hygiene (QC): 6 Toilet/Commode Transfer (QC): 6 Additional Goals: 1-Demonstrate ADL Tasks, 2-Verbalize Understanding, 3- ImproveStrength/Sanchez 1=Demonstrate adherence to instructed precautions during ADL tasks. 2=Patient will verbalize/demonstrate understanding of assistive devices/modifications for ADL. 3=Patient will improve strength/tolerance for activity to enable patient to perform ADL's. OT Education/Plan Problem List/Assessment Assessment: Decreased Activ Tolerance, Decreased UE Strength, Impaired I ADL's, Impaired Self-Care Skills Discharge Recommendations Plan/Recommendations: Continue POC Therapy Discharge Recommendati: Intermittent Supervision Treatment Plan/Plan of Care Treatment,Training & Education: Yes Patient would benefit from OT for education, treatment and training to promote independence in ADL's, mobility, safety and/or upper extremity function for ADL's. Plan of Care: Caregiver Training, Functional Mobility, Group Exercise/Act as Ind, UE Funct Exercise/Act Treatment Duration: May 05, 2019 Frequency: 5 times per week Estimated Hrs Per Day: .25 hour per day Agreement: Yes Rehab Potential: Fair Time/GCodes Start Time: 11:15 Stop Time: 11:30 Total Time Billed (hr/min): 15 Billed Treatment Time 1, FA (15) LAURY LEAL OTR May 06, 2019 11:39
[2019-05-06 12:09] LABS: ALBUMIN 3.1 GM/DL (3.2-4.5); BILIRUBIN,TOTAL 0.7 MG/DL (0.1-1.0); CALCIUM 7.7 MG/DL (8.5-10.1); CREATININE SERUM 1.1 MG/DL (0.60-1.30); POTASSIUM 3.9 MMOL/L (3.6-5.0); TOTAL PROTEIN 6.6 GM/DL (6.4-8.2)
--- NOTE | 2019-05-06 14:10 | NUR ---
Pastoral care visit.
[2019-05-06] MEDS: FERROUS SULF 325 MG (IRON) TAB PO SCH (16:27)
[2019-05-06 17:49] VITALS: BP 119/60
[2019-05-06] MEDS: oxyCODONE/APAP 5/325MG (PERCOCET 5) TABLET PO PRN (23:13)
[2019-05-07] MEDS: PIPERACILLIN/TAZOBACTAM (BULK) 4.5 GM in NS (IVPB) 100 ML IV SCH ×3 (01:30→16:57)
[2019-05-07] MEDS: methylPREDNISolone 125 MG (Solu-MEDROL) VIAL IVP SCH ×2 (03:11→09:44)
[2019-05-07] MEDS: NS IV 1000 ML 1,000 ML IV SCH (05:18)
[2019-05-07 06:18] VITALS: BP 118/74
[2019-05-07] MEDS: LEVOTHYROXINE 75 MCG (LEVOTHROID) TABLET PO SCH (06:37)
[2019-05-07] MEDS: LACTOBACILLUS ACIDOPHILUS (PROBIOTIC) CAPSULE PO SCH ×3 (06:37→16:09)
[2019-05-07] MEDS: CYANOCOBALAMIN 1,000 MCG (VITAMIN B-12) TABLET PO SCH (06:37)
[2019-05-07] MEDS: MULTIVIT W/MINERALS TAB (THERAGRAN M) PO SCH (06:40)
[2019-05-07] MEDS: CATHETER FLUSH 10 ML SYR IV SCH ×3 (06:41→21:47)
[2019-05-07] MEDS: RT-ALBUTEROL/IPRATROPIUM 3 ML (DUONEB) VIAL INH SCH ×4 (06:54→19:23)
[2019-05-07] MEDS: fluCOnazole (DIFLUCAN) 100 MG TAB PO SCH (08:06)
--- NOTE | 2019-05-07 08:54 | Physical Therapy Daily Note ---
PT Daily Note-Current Subjective Pt agreeable to PT session. Pt states feeling better today. Pain Numeric Pain Scale: 0-No Pain Appearance Pt supine in bed awake and alert upon arrival. At end of session, pt sitting up in recliner with call light, phone and bedside table within reach. Pt denies need for BRP, Mental Status Patient Orientation: Person, Place, Time, Eyes Open, Situation Attachments: IV Transfers SCALE: Activities may be completed with or without assistive devices. 0-Sjpsgzezup-zwftfws completes the activity by him/herself with no assistance from a helper. 5-Set-up or Clean-up Assistance-helper sets up or cleans up; patient completes activity. [place] assists only prior to or following the activity. 4-Supervision or Touching Assistance-helper provides verbal cues and/or touching/steadying and/or contact guard assistance as patient completes activity. Assistance may be provided throughout the activity or intermittently. 3-Partial/Moderate Assistance-helper does LESS THAN HALF the effort. [place] lifts, holds or supports trunk or limbs, but provides less than half the effort. 2-Substantial/Maximal Assistance-helper does MORE THAN HALF the effort. [place] lifts or holds trunk or limbs and provides more than half the effort. 7-Cerfyzrwn-olnkjz does ALL the effort. Patient does none of the effort to comp lete the activity. Or, the assistance of 2 or more helpers is required for the patient to complete the activity. If activity was not attempted, code reason: 7-Patient Refused. 9-Not Applicable-not attempted and the patient did not perform the activity before the current illness, exacerbation or injury. 10-Not Attempted due to Environmental Limitations-(lack of equipment, weather restraints, etc.). 88-Not Attempted due to Medical Conditions or Safety Concerns. Sit to Lying (QC): 4 (supervision) Sit to Stand (QC): 4 (supervision) Pt demonstrating ability to perform sit to stand upon 1st attempt, good safe techniques with all transitions Gait Training Does the Patient Walk?: Yes Distance: 500 Walk 10 feet (QC): 4 (supervision) Walk 50 ft with 2 Turns(QC): 4 (supervision) Walk 150 ft (QC): 4 (supervision) Gait Persons Needed: 1 Gait Assistive Device: FWW good pace, slight fatigue, slight path deviation, good posture Exercises Standin way Ex=Flex, Abd, Ext (mini lunges each LE), Sit to Stand (x5) Standing Reps: 10 (requiring CGA with gait belt due to instability at times standing on RLE and moving LLE) Treatments bed mobility, transfers, gait, functional mobility, activity tolerance, balance, strength, education, safety Assessment Current Status: Good Progress increase in gait distance with FWW, good technique with all transitions PT Sewage Disposal Worker Goals Sewage Disposal Worker Goals PT Mcfp Goals Time Frame: May 12, 2019 Sit to Lying (QC): 4 (SBA) Lying-Sitting on Side/Bed(QC): 4 (SBA) Sit to Stand (QC): 4 (SBA) Roll Left to Right (QC): 4 (SBA) Chair/Jdp-xx-Odeqc Xfer(QC): 4 (SBA) Distance: 500ft with 2 or less standing rest breaks Walk 10 feet (QC): 4 (SBA) Walk 10ft-Uneven Surface(QC): 4 (SBA) Walk 50ft with 2 Turns (QC): 4 (SBA) Walk 150 ft (QC): 4 (SBA) Gait Assistive Device: FWW PT Plan Treatment/Plan Treatment Plan: Continue Plan of Care Treatment Plan: Bed Mobility, Education, Functional Activity [place], Functional Strength, Gait, Safety, Therapeutic Exercise, Transfers Frequency: 6 times per week Estimated Hrs Per Day: .25 hour per day Patient and/or Family Agrees t: Yes Safety Risks/Education Patient Education: Gait Training, Transfer Techniques, Safety Issues Teaching Recipient: Patient Teaching Methods: Discussion Response to Teaching: Verbalize Understanding, Return Demonstration Time/GCodes Time In: 841 Time Out: 905 Total Billed Treatment Time: 24 Total Billed Treatment 1 visit, GT x13 min, EX 11 [place] STUDENT EDUCATION SPECIALIST May 07, 2019 08:54
[2019-05-07] MEDS: OLANZapine 2.5 MG (ZyPREXA) TAB PO SCH (09:47)
[2019-05-07] MEDS: ASPIRIN E.C. 81 MG (ECOTRIN) TAB PO SCH (09:47)
[2019-05-07] MEDS: meTOprolol TARTRATE 25 MG (LOPRESSOR) TABLET PO SCH ×2 (09:47→21:06)
[2019-05-07] MEDS: FLUoxetine HCL 20 MG (PROzac) CAP PO SCH (09:48)
[2019-05-07] MEDS: ACYCLOVIR 400 MG TABLET (ZOVIRAX) PO SCH (09:48)
[2019-05-07] MEDS: LETROZOLE 2.5 MG (FEMARA) TAB PO SCH (09:51)
[2019-05-07] MEDS ORDERED: TROUGH ORDER-PHARMACY XX NR (10:30)
[2019-05-07 10:46] LABS: HEMOGLOBIN 9.3 G/DL (11.5-16.0); MEAN PLATELET VOLUME 9.6 FL (7.4-10.4); RED CELL DISTRIBUTION WIDTH 14.4 % (10.0-14.5); WHITE BLOOD COUNT 2.8 10^3/uL (4.3-11.0)
--- NOTE | 2019-05-07 10:49 | Progress Note ---
Subjective Date Seen by a Provider: May 07, 2019 Time Seen by a Provider: 09:50 Subjective/Events-last exam PT IS A 73 Y/O FEMALE WHO WAS ADMITTED TO THE HOSPITAL FOR PNEUMONIA - SHE WAS RECENTLY HOSPITALIZED IN [place] FOR PNEUMONIA AND UTI, WAS DISCHARGED AND HAD RECURRENCE OF SYMPTOMS WITHIN 2 DAYS OF DISCHARGE FROM THE HOSPITAL. PT REPORTS THAT SHE IS FEELING BETTER EVERY DAY. SHE REPORTS THAT HER SHORTNESS OF BREATH HAS IMPROVED, SHE STILL HAS A COUGH, BUT IT SEEMS TO BE LESS PRODUCTIVE THAN ON ADMISSION. SHE DENIES ABDOMINAL PAIN, NAUSEA. SHE IS HAVING URINARY FREQUENCY. Review of Systems General: Fatigue HEENT: No Head Aches Pulmonary: Dyspnea, Cough Cardiovascular: No: Chest Pain, Palpitations Gastrointestinal: No: Nausea, Abdominal Pain Genitourinary: No Dysuria; Frequency Neurological: Weakness; No: Confusion Focused Exam Lactate Level 05/05/19 11:31: Lactic Acid Level 1.80 Objective Exam Last Set of Vital Signs Vital Signs Date Time Temp Pulse Resp B/P (MAP) Pulse Ox O2 Delivery O2 Flow Rate FiO2 05/07/19 08:00 95 Room Air 05/07/19 06:18 35.7 75 18 118/74 (89) 05/05/19 13:28 21 Capillary Refill : I&O Intake and Output 05/07/19 00:00 Intake Total 3468 ml Balance 3468 ml Intake Oral 3228 ml IV Total 240 ml # Voids 12 # Bowel Movements 3 General: Alert, Oriented X3, Cooperative, No Acute Distress HEENT: Atraumatic, PERRLA, Mucous Memb Moist/New Site Neck: Supple Lungs: Other (CRACKLES THROUGHOUT - BUT IMPROVED AIR MOVEMENT THROUGHOUT WELL, NO RHONCHI, NO WHEEZING) Heart: Regular Rate, Normal S1 Abdomen: Normal Bowel Sounds, Soft, No Tenderness Neuro: Cranial Nerves 3-12 NL Psych/Mental Status: Mental Status NL, Mood NL Results Lab Laboratory Tests 05/06/19 11:40: Sodium Level 139, Potassium Level 3.9, Chloride Level 107, Carbon Dioxide Level 22, Anion Gap 10, Blood Urea Nitrogen 10, Creatinine 1.10, Estimat Glomerular Filtration Rate 49, BUN/Creatinine Ratio 9, Glucose Level 91, Calcium Level 7.7L , Corrected Calcium 8.4L, Total Bilirubin 0.7, Aspartate Amino Transf (AST/SGOT) 24, Alanine Aminotransferase (ALT/SGPT) 21, Alkaline Phosphatase 67, Total Protein 6.6, Albumin 3.1L 05/07/19 10:35: Microbiology 05/05/19 Blood Culture - Preliminary, Resulted No growth Assessment/Plan Assessment/Plan Assess & Plan/Chief Complaint PNEUMONIA HYPOXIA HYPERTENSION SCHIZOPHRENIA HYPOTHYROID CHRONIC IRON DEFICIENCY ANEMIA HX MULTIPLE MYELOMA WITH CHRONIC LEUKOPENIA PNEUMONIA WITH HYPOXIA - PT PLACED ON PNEUMONIA PROTOCOL, RX FOR ZOSYN AND VANCOMYCIN WITH MAT PROTOCOL, WILL MONITOR SERIAL CHEST XRAYS - PT STARTED ON SOLUMEDROL ON ADMISSION - DOSE DECREASED TO 40MG Q 6 HOURS, WILL DC ON 05/09/19 - LACTIC ACID NEGATIVE. - PROBIOTIC INITIATED TO PREVENT DIARRHEA DUE TO PROLONGED ANTIBIOTIC USE HYPERTENSION - RESTARTED METOPROLOL - MONITOR BLOOD PRESSURES CLOSELY CHRONIC LEUKOPENIA DUE TO HX OF MULTIPLE MYELOMA STATUS POST TREATMENT AND HX OF BREAST CANCER - MONITOR LABS - IMPROVED FROM YESTERDAY. SCHIZOPHRENIA - RESTARTED ANTIPSYCHOTICS HYPOTHYROID - RESTARTED SYNTHROID CHRONIC IRON DEFICIENCY ANEMIA - SUPPORTIVE CARE AT THIS TIME. - MONITOR LABS PT ADMITTED TO THE HOSPITAL ON SWING-BED STATUS DUE TO HER RECURRENT PNEUMONIA AND RECENT HOSPITALIZATION WITH PNEUMONIA. THERAPIES STARTED WELL FOR PATIENT DUE TO HER PROLONGED HOSPITALIZATION Clinical Quality Measures Admission Status Admission Dx PNEUMONIA HYPOXIA HYPERTENSION CHRONIC LEUKOPENIA SCHIZOPHRENIA HYPOTHYROID CHRONIC IRON DEFICIENCY ANEMIA DVT/VTE Risk/Contraindication: Risk Factor Score Per Nursin RFS Level Per Nursing on Admit: 3=High ORTEGA PIERRE MD May 07, 2019 10:49
--- NOTE | 2019-05-07 11:09 | Diagnostic Imaging Report ---
INDICATION: Pneumonia. PA and lateral chest obtained at 10:21 a.m. is compared to yesterday. FINDINGS: Port-A-Cath is unchanged. Heart is borderline in size. Scattered interstitial infiltrate is seen throughout both lungs which appear similar to the prior study. There is no pneumothorax or pleural fluid collection. Patient has had previous kyphoplasty in the thoracic spine. Multiple chronic compression deformities in thoracolumbar spine are similar to yesterday's study. IMPRESSION: Stable bilateral infiltrates which are predominantly interstitial in nature. No pneumothorax or pleural fluid or other new finding. Dictated by: Dictated on workstation # [id number]
--- NOTE | 2019-05-07 11:30 | NUR ---
VANCOMYCIN DOSING TROUGH LEVEL 10.7 - INCREASE DOSE TO VANC 1500 MG Q24H CHECK TROUGH LEVEL BEFORE 3RD DOSE 10/ AT 1030 HOLD DOSE AND CONTACT PHARMACY IF LEVEL IS GREATER THAN 20
--- NOTE | 2019-05-07 11:33 | Occupational Ther Daily Note ---
OT Current Status-Daily Note Subjective Pt alert, lying in bed. First attempt to see pt at 0900, pt stated that she had just finished with a shower and wanted [facility] to come back later in the morning. On second visit, pt agrees to therapy. No c/o pain. Mental Status/Objective Patient Orientation: Person, Place, Time, Situation Attachments: IV ADL-Treatment Per pt and nrsg reports, pt able to complete shower and toileting independently. Pt agrees to dress and complete oral care. Pt able to retrieve clothes from bed and don by self. Pt used safe techniques to hike pants over hips in standing. Pt then ambulated with IV pole to bathroom to complete oral care and grooming standing at sink, independently. After therapy, pt lying in bed with call light/phone in reach. All needs met in room. Therapy Code Descriptions/Definitions Functional [place] Measure: 0=Not Assessed/NA 4=Minimal Assistance 1=Total Assistance 5=Supervision or Setup 2=Maximal Assistance 6=Modified [place] 3=Moderate Assistance 7=Complete IndependenceSCALE: Activities may be completed with or without assistive devices. 9-Wcqkxirvlh-aujvkvp completes the activity by him/herself with no assistance from a helper. 5-Set-up or Clean-up Assistance-helper sets up or cleans up; patient completes activity. Barto assists only prior to or following the activity. 4-Supervision or Touching Assistance-helper provides verbal cues and/or touching/steadying and/or contact guard assistance as patient completes activity. Assistance may be provided throughout the activity or intermittently. 3-Partial/Moderate Assistance-helper does LESS THAN HALF the effort. Barto lifts, holds or supports trunk or limbs, but provides less than half the effort. 2-Substantial/Maximal Assistance-helper does MORE THAN HALF the effort. Barto lifts or holds trunk or limbs and provides more than half the effort. 5-Nqyuijfdv-qbhtle does ALL the effort. Patient does none of the effort to complete the activity. Or, the assistance of 2 or more helpers is required for the patient to complete the activity. If activity was not attempted, code reason: 7-Patient Refused. 9-Not Applicable-not attempted and the patient did not perform the activity before the current illness, exacerbation or injury. 10-Not Attempted due to Environmental Limitations-(lack of equipment, weather restraints, etc.). 88-Not Attempted due to Medical Conditions or Safety Concerns. Eating (QC): 6 (Pt demonstrates ability to set own meals up and uses regular utensils to eat.) Oral Hygiene (QC): 6 Shower/Bathe Self (QC): 6 (Per pt and nrsg report, pt completes independently using shower bench, grabbars and hand held shower.) Upper Body Dressing (QC): 6 Lower Body Dressing (QC): 6 Toileting Hygiene (QC): 6 (Per pt report and nrsg, pt able to complete independently.) Toilet Transfer (QC): 6 (Pt pt and nrsg report, pt able to complete by self.) OT Short Term Goals Short Term Goals Eating(FIM): 6 Grooming(FIM): 6 Bathing(FIM): 6 1=Demonstrate adherence to instructed precautions during ADL tasks. 2=Patient will verbalize/demonstrate understanding of assistive d evices/modifications for ADL. 3=Patient will improve strength/tolerance for activity to enable patient to perform ADL's. OT Jail Goals Jail Goals Eating (QC): 6 (met) Oral Hygiene (QC): 6 (met) Shower/Bathe Self (QC): 6 (met) Upper Body Dressing (QC): 6 (met) Lower Body Dressing (QC): 6 (met) On/Off Footwear (QC): 6 (met) Toileting Hygiene (QC): 6 (met) Toilet/Commode Transfer (QC): 6 (met) Additional Goals: 1-Demonstrate ADL Tasks, 2-Verbalize Understanding, 3- ImproveStrength/Sanchez 1=Demonstrate adherence to instructed precautions during ADL tasks. 2=Patient will verbalize/demonstrate understanding of assistive devices/modifications for ADL. 3=Patient will improve strength/tolerance for activity to enable patient to perform ADL's. OT Education/Plan Discharge Recommendations Plan/Recommendations: Continue POC Treatment Plan/Plan of Care Patient would benefit from OT for education, treatment and training to promote independence in ADL's, mobility, safety and/or upper extremity function for ADL's. Plan of Care: Caregiver Training, Functional Mobility, Group Exercise/Act as Ind, UE Funct Exercise/Act Treatment Duration: May 05, 2019 Frequency: 5 times per week Estimated Hrs Per Day: .25 hour per day Agreement: Yes Rehab Potential: Fair Time/GCodes Start Time: 11:15 Stop Time: 11:30 Total Time Billed (hr/min): 15 Billed Treatment Time 1 visit-ADL 1 (15 min) MOLLY SHRESTHA May 07, 2019 11:33
[2019-05-07] MEDS: PANTOPRAZOLE 20 MG TABLET (PROTONIX) PO SCH ×2 (11:59→16:08)
[2019-05-07] MEDS: VANCOMYCIN INJECTION 1,500 MG in NS IV 500 ML 500 ML IV SCH (11:59)
[2019-05-07] MEDS: ENOXAPARIN 40 MG/0.4 ML (LOVENOX) SYR SC SCH (12:02)
[2019-05-07] MEDS: methylPREDNISolone 40 MG/ML (Solu-MEDROL) VIAL IV SCH ×2 (14:48→21:05)
[2019-05-07] MEDS ORDERED: methylPREDNISolone 125 MG (Solu-MEDROL) VIAL IVP SCH (15:00)
[2019-05-07] MEDS: FERROUS SULF 325 MG (IRON) TAB PO SCH (16:09)
[2019-05-07 18:10] VITALS: BP 111/66
[2019-05-07] MEDS: oxyCODONE/APAP 5/325MG (PERCOCET 5) TABLET PO PRN (21:05)
[2019-05-08] MEDS: NS IV 1000 ML 1,000 ML IV SCH ×2 (01:43→20:55)
[2019-05-08] MEDS: PIPERACILLIN/TAZOBACTAM (BULK) 4.5 GM in NS (IVPB) 100 ML IV SCH ×3 (01:44→16:55)
[2019-05-08] MEDS: methylPREDNISolone 40 MG/ML (Solu-MEDROL) VIAL IV SCH ×4 (04:22→20:45)
[2019-05-08 05:30] VITALS: BP 125/62
[2019-05-08] MEDS: LEVOTHYROXINE 75 MCG (LEVOTHROID) TABLET PO SCH (05:56)
[2019-05-08] MEDS: MULTIVIT W/MINERALS TAB (THERAGRAN M) PO SCH (05:56)
[2019-05-08] MEDS: CYANOCOBALAMIN 1,000 MCG (VITAMIN B-12) TABLET PO SCH (05:56)
[2019-05-08] MEDS: LACTOBACILLUS ACIDOPHILUS (PROBIOTIC) CAPSULE PO SCH ×3 (05:57→16:55)
[2019-05-08] MEDS: RT-ALBUTEROL/IPRATROPIUM 3 ML (DUONEB) VIAL INH SCH ×4 (06:34→21:25)
[2019-05-08 06:57] LABS: HEMOGLOBIN 9.2 G/DL (11.5-16.0); MEAN PLATELET VOLUME 9.9 FL (7.4-10.4); RED CELL DISTRIBUTION WIDTH 14.4 % (10.0-14.5); WHITE BLOOD COUNT 4.6 10^3/uL (4.3-11.0)
[2019-05-08 07:20] LABS: BUN/CREATININE RATIO 11; CALCIUM 6.7 MG/DL (8.5-10.1); CARBON DIOXIDE 18 MMOL/L (21-32); CHLORIDE 110 MMOL/L (98-107); CREATININE SERUM 0.88 MG/DL (0.60-1.30); GFR ESTIMATED > 60; GLUCOSE 116 MG/DL (70-105); POTASSIUM 3.4 MMOL/L (3.6-5.0); SODIUM 140 MMOL/L (135-145)
[2019-05-08] MEDS: OLANZapine 2.5 MG (ZyPREXA) TAB PO SCH (08:58)
[2019-05-08] MEDS: meTOprolol TARTRATE 25 MG (LOPRESSOR) TABLET PO SCH ×2 (08:59→20:45)
[2019-05-08] MEDS: ASPIRIN E.C. 81 MG (ECOTRIN) TAB PO SCH (08:59)
[2019-05-08] MEDS: FLUoxetine HCL 20 MG (PROzac) CAP PO SCH (08:59)
[2019-05-08] MEDS: fluCOnazole (DIFLUCAN) 100 MG TAB PO SCH (08:59)
[2019-05-08] MEDS: LETROZOLE 2.5 MG (FEMARA) TAB PO SCH (09:02)
--- NOTE | 2019-05-08 09:04 | Physical Therapy Daily Note ---
PT Daily Note-Current Subjective Pt agreeable to PT session. States she is looking forward to getting up and walking although feeling a little puny today. Pain Numeric Pain Scale: 0-No Pain Appearance Upon arrival, pt supine in bed with HOB elevated, awake and alert. At end of ses adolfo, pt sitting up in recliner with nurse present, call light, phone and bedside table within reach. Mental Status Patient Orientation: Person, Place, Time, Eyes Open, Situation Attachments: IV Transfers SCALE: Activities may be completed with or without assistive devices. 0-Mrnhytuklf-xutfycs completes the activity by him/herself with no assistance from a helper. 5-Set-up or Clean-up Assistance-helper sets up or cleans up; patient completes activity. [place] assists only prior to or following the activity. 4-Supervision or Touching Assistance-helper provides verbal cues and/or touching/steadying and/or contact guard assistance as patient completes activity. Assistance may be provided throughout the activity or intermittently. 3-Partial/Moderate Assistance-helper does LESS THAN HALF the effort. [place] lifts, holds or supports trunk or limbs, but provides less than half the effort. 2-Substantial/Maximal Assistance-helper does MORE THAN HALF the effort. [place] lifts or holds trunk or limbs and provides more than half the effort. 9-Opoceccci-rgiehj does ALL the effort. Patient does none of the effort to complete the activity. Or, the assistance of 2 or more helpers is required for the patient to complete the activity. If activity was not attempted, code reason: 7-Patient Refused. 9-Not Applicable-not attempted and the patient did not perform the activity before the current illness, exacerbation or injury. 10-Not Attempted due to Environmental Limitations-(lack of equipment, weather restraints, etc.). 88-Not Attempted due to Medical Conditions or Safety Concerns. Roll Left to Right (QC): 6 Sit to Lying (QC): 6 Sit to Stand (QC): 4 Pt demonstrating good technique and I with bed mobility. Supervision with sit to from stand transfers provided, able to rise upon 1st attempt with good safety measures. Gait Training Does the Patient Walk?: Yes Distance: 500(+) Walk 10 feet (QC): 4 Walk 50 ft with 2 Turns(QC): 4 Walk 150 ft (QC): 4 Gait Persons Needed: 1 Gait Assistive Device: FWW pt report of fatigue, slight SOA and dry mouth. Fair pace, decreased step height although clears floor, fair step length. Report of a little bit of a LB ache by end of session Treatments education, safety, bed mobility, transfers, gait, strength, balance, activity tolerance, functional mobility Assessment Current Status: Good Progress Pt continues to progress well toward goals with increasing gait distance and strength PT Nursing Home Goals Veterinary Technician Instructor Goals PT Nursing Home Goals Time Frame: May 12, 2019 Sit to Lying (QC): 4 (SBA) Lying-Sitting on Side/Bed(QC): 4 (SBA) Sit to Stand (QC): 4 (SBA) Roll Left to Right (QC): 4 (SBA) Chair/Wzj-fz-Jsaml Xfer(QC): 4 (SBA) Distance: 500ft with 2 or less standing rest breaks Walk 10 feet (QC): 4 (SBA) Walk 10ft-Uneven Surface(QC): 4 (SBA) Walk 50ft with 2 Turns (QC): 4 (SBA) Walk 150 ft (QC): 4 (SBA) Gait Assistive Device: FWW PT Plan Treatment/Plan Treatment Plan: Continue Plan of Care Treatment Plan: Bed Mobility, Education, Functional Activity Sanchez, Functional Strength, Gait, Safety, Therapeutic Exercise, Transfers Frequency: 6 times per week Estimated Hrs Per Day: .25 hour per day Patient and/or Family Agrees t: Yes Safety Risks/Education Patient Education: Gait Training, Transfer Techniques, Correct Positioning, Safety Issues Teaching Recipient: Patient Teaching Methods: Discussion Response to Teaching: Verbalize Understanding, Return Demonstration Time/GCodes Time In: 846 Time Out: 906 Total Billed Treatment Time: 20 Total Billed Treatment 1 visit, GT x20 min HAROON WILLIS COLLAR BAND CREASER May 08, 2019 09:04
[2019-05-08] MEDS: ACYCLOVIR 400 MG TABLET (ZOVIRAX) PO SCH (09:05)
[2019-05-08] MEDS: CATHETER FLUSH 10 ML SYR IV SCH ×3 (09:22→22:00)
--- NOTE | 2019-05-08 10:00 | Diagnostic Imaging Report ---
INDICATION: Pneumonia. Comparison made with prior examination of 05/07/2019. FINDINGS: Heart size is normal. There is some venous congestion. There are patchy bibasilar infiltrates. There is no pleural perfusion pneumothorax. Mfqfns-E-Qgsg catheter overlies the left hemithorax. Some venous congestion. IMPRESSION: Patchy bibasilar infiltrates. Mild central pulmonary venous congestion. Dictated by: Dictated on workstation # [id number]
[2019-05-08 11:07] VITALS: BP 125/62
[2019-05-08] MEDS: ENOXAPARIN 40 MG/0.4 ML (LOVENOX) SYR SC SCH (11:27)
[2019-05-08] MEDS: PANTOPRAZOLE 20 MG TABLET (PROTONIX) PO SCH ×2 (11:27→16:55)
[2019-05-08] MEDS: VANCOMYCIN INJECTION 1,500 MG in NS IV 500 ML 500 ML IV SCH (12:11)
[2019-05-08] MEDS: oxyCODONE/APAP 5/325MG (PERCOCET 5) TABLET PO PRN ×2 (14:13→20:54)
[2019-05-08] MEDS ORDERED: FLU QUADRIvalent (5+ YOA) 2019-2020 (AFLURIA) 0.5 ML IM ONE ×2 (15:14→20:57)
--- NOTE | 2019-05-08 15:57 | Progress Note - Hospitalist ---
Subjective HPI/CC On Admission Date Seen by Provider: May 08, 2019 Time Seen by Provider: 09:10 she is sitting in her bedside chair this morning. She denies any fevers or chills. She denies any shortness of breath or cough. She is feeling much better today. She denies any abdominal pain, nausea, vomiting. Objective Exam Vital Signs Vital Signs Date Time Temp Pulse Resp B/P (MAP) Pulse Ox O2 Delivery O2 Flow Rate FiO2 05/08/19 15:04 93 Room Air 05/08/19 11:07 36.6 71 05/08/19 09:00 0.00 05/08/19 05:30 18 125/62 (83) 05/05/19 13:28 21 Capillary Refill : General Appearance: No Apparent Distress, WD/WN Respiratory: Lungs Clear, Normal Breath Sounds, No Respiratory Distress Cardiovascular: Regular Rate, Rhythm, No Edema, No Murmur Gastrointestinal: Normal Bowel Sounds, Non Tender, Soft Extremity: Normal Inspection, Non Tender, No Pedal Edema Neurologic/Psychiatric: Alert, Oriented x3, Normal Mood/Affect Skin: Normal Color, Warm/Dry Results/Procedures Lab Laboratory Tests 05/08/19 06:45 Patient resulted labs reviewed. Assessment/Plan Assessment and Plan Assess & Plan/Chief Complaint HCAP -Continue Vanc and Zosyn -Continue Solumedrol WILBER -Cr improving -Continue fluids Leukopenia -Improved HTN Hypothyroidism Schizophrenia Anemia Multiple myeloma -Stable, continue home meds DVT Prophylaxis: Lovenox Diagnosis/Problems Diagnosis/Problems (1) HCAP (healthcare-associated pneumonia) Status: Acute (2) WILBER (acute kidney injury) Status: Resolved Resolution Date/Time: 05/08/19 @ 16:05 Clinical Quality Measures DVT/VTE Risk/Contraindication: Risk Factor Score Per Nursin RFS Level Per Nursing on Admit: 3=High OC GREENWOOD MD May 08, 2019 15:57
[2019-05-08] MEDS ORDERED: KCL 20 MEQ TAB (K-DUR) PO ONE (16:00)
[2019-05-08] MEDS ORDERED: CALCIUM GLUCONATE 10% INJ 4.65 MEQ in NS (IVPB) 50 ML IV ONE (16:00)
[2019-05-08] MEDS: FERROUS SULF 325 MG (IRON) TAB PO SCH (16:55)
[2019-05-08 17:37] VITALS: BP 157/84
[2019-05-09] MEDS: PIPERACILLIN/TAZOBACTAM (BULK) 4.5 GM in NS (IVPB) 100 ML IV SCH ×3 (01:45→16:44)
[2019-05-09] MEDS: methylPREDNISolone 40 MG/ML (Solu-MEDROL) VIAL IV SCH ×2 (02:59→09:17)
[2019-05-09] MEDS: CYANOCOBALAMIN 1,000 MCG (VITAMIN B-12) TABLET PO SCH (05:25)
[2019-05-09] MEDS: LEVOTHYROXINE 75 MCG (LEVOTHROID) TABLET PO SCH (05:25)
[2019-05-09] MEDS: MULTIVIT W/MINERALS TAB (THERAGRAN M) PO SCH (05:25)
[2019-05-09] MEDS: LACTOBACILLUS ACIDOPHILUS (PROBIOTIC) CAPSULE PO SCH ×3 (05:25→16:44)
[2019-05-09] MEDS: CATHETER FLUSH 10 ML SYR IV SCH ×3 (05:27→20:53)
[2019-05-09 05:41] LABS: HEMOGLOBIN 9.1 G/DL (11.5-16.0); MEAN PLATELET VOLUME 10.1 FL (7.4-10.4); WHITE BLOOD COUNT 6.3 10^3/uL (4.3-11.0)
[2019-05-09 06:00] VITALS: BP 166/74
[2019-05-09 06:09] LABS: BUN/CREATININE RATIO 14; CALCIUM 7.1 MG/DL (8.5-10.1); CARBON DIOXIDE 21 MMOL/L (21-32); CHLORIDE 112 MMOL/L (98-107); CREATININE SERUM 0.91 MG/DL (0.60-1.30); GFR ESTIMATED > 60; GLUCOSE 125 MG/DL (70-105); MAGNESIUM 1.7 MG/DL (1.6-2.4); POTASSIUM 3.6 MMOL/L (3.6-5.0); SODIUM 143 MMOL/L (135-145)
[2019-05-09] MEDS: RT-ALBUTEROL/IPRATROPIUM 3 ML (DUONEB) VIAL INH SCH ×4 (06:55→19:01)
[2019-05-09] MEDS ORDERED: CALCIUM GLUCONATE 10% INJ 4.65 MEQ in NS (IVPB) 50 ML IV ONE (07:45)
[2019-05-09] MEDS ORDERED: MAGNESIUM 1 GM/100 ML IVPB 100 ML IV ONE (07:45)
[2019-05-09] MEDS: ACYCLOVIR 400 MG TABLET (ZOVIRAX) PO SCH (09:16)
[2019-05-09] MEDS: fluCOnazole (DIFLUCAN) 100 MG TAB PO SCH (09:16)
[2019-05-09] MEDS: OLANZapine 2.5 MG (ZyPREXA) TAB PO SCH (09:16)
[2019-05-09] MEDS: ASPIRIN E.C. 81 MG (ECOTRIN) TAB PO SCH (09:16)
[2019-05-09] MEDS: meTOprolol TARTRATE 25 MG (LOPRESSOR) TABLET PO SCH ×2 (09:16→20:15)
[2019-05-09] MEDS: LETROZOLE 2.5 MG (FEMARA) TAB PO SCH (09:17)
[2019-05-09] MEDS: FLUoxetine HCL 20 MG (PROzac) CAP PO SCH (09:17)
[2019-05-09] MEDS: ENOXAPARIN 40 MG/0.4 ML (LOVENOX) SYR SC SCH (10:27)
[2019-05-09] MEDS: PANTOPRAZOLE 20 MG TABLET (PROTONIX) PO SCH ×2 (11:52→16:44)
[2019-05-09] MEDS: VANCOMYCIN INJECTION 1,500 MG in NS IV 500 ML 500 ML IV SCH (12:37)
--- NOTE | 2019-05-09 12:46 | Progress Note - Hospitalist ---
Subjective HPI/CC On Admission Date Seen by Provider: May 09, 2019 Time Seen by Provider: 11:10 Subjective/Events-last exam She is resting comfortably in bed today. She denies any fevers, chills, chest pain, dyspnea, abdominal pain, nausea, vomiting. Objective Exam Vital Signs Vital Signs Date Time Temp Pulse Resp B/P (MAP) Pulse Ox O2 Delivery O2 Flow Rate FiO2 05/09/19 10:44 95 Nasal Cannula 2.00 05/09/19 06:00 36.6 64 22 166/74 (104) 05/05/19 13:28 21 Capillary Refill : General Appearance: No Apparent Distress, WD/WN Respiratory: No Respiratory Distress, Wheezing, Other (Wearing nasal cannula) Cardiovascular: Regular Rate, Rhythm, No Edema, No Murmur Gastrointestinal: Normal Bowel Sounds, Non Tender, Soft, Hernia Extremity: Normal Inspection, Non Tender, No Pedal Edema Neurologic/Psychiatric: Alert, Oriented x3 Skin: Normal Color, Warm/Dry Results/Procedures Lab Laboratory Tests 05/09/19 05:20 Patient resulted labs reviewed. Assessment/Plan Assessment and Plan Assess & Plan/Chief Complaint HCAP -Continue Vanc and Zosyn -Continue Solumedrol WILBER -Cr improved -Continue fluids Leukopenia -Improved HTN Hypothyroidism Schizophrenia Anemia Multiple myeloma -Stable, continue home meds DVT Prophylaxis: Lovenox Diagnosis/Problems Diagnosis/Problems (1) HCAP (healthcare-associated pneumonia) Status: Acute (2) WILBER (acute kidney injury) Status: Resolved Resolution Date/Time: 05/08/19 @ 16:05 Clinical Quality Measures DVT/VTE Risk/Contraindication: Risk Factor Score Per Nursin RFS Level Per Nursing on Admit: 3=High OC GREENWOOD MD May 09, 2019 12:46
[2019-05-09] MEDS: FERROUS SULF 325 MG (IRON) TAB PO SCH (16:44)
[2019-05-09] MEDS: NS IV 1000 ML 1,000 ML IV SCH (16:44)
[2019-05-09 17:40] VITALS: BP 150/80
[2019-05-09] MEDS: oxyCODONE/APAP 5/325MG (PERCOCET 5) TABLET PO PRN (20:15)
[2019-05-10] MEDS: PIPERACILLIN/TAZOBACTAM (BULK) 4.5 GM in NS (IVPB) 100 ML IV SCH ×2 (01:18→09:30)
[2019-05-10] MEDS: oxyCODONE/APAP 5/325MG (PERCOCET 5) TABLET PO PRN (04:40)
[2019-05-10] MEDS: CATHETER FLUSH 10 ML SYR IV SCH (05:20)
[2019-05-10] MEDS: LEVOTHYROXINE 75 MCG (LEVOTHROID) TABLET PO SCH (05:33)
[2019-05-10] MEDS: MULTIVIT W/MINERALS TAB (THERAGRAN M) PO SCH (05:33)
[2019-05-10] MEDS: CYANOCOBALAMIN 1,000 MCG (VITAMIN B-12) TABLET PO SCH (05:34)
[2019-05-10] MEDS: LACTOBACILLUS ACIDOPHILUS (PROBIOTIC) CAPSULE PO SCH (05:34)
[2019-05-10 05:42] LABS: HEMOGLOBIN 9.1 G/DL (11.5-16.0); MEAN PLATELET VOLUME 9.8 FL (7.4-10.4); RED CELL DISTRIBUTION WIDTH 14.9 % (10.0-14.5); WHITE BLOOD COUNT 7.4 10^3/uL (4.3-11.0)
[2019-05-10 06:00] VITALS: BP 154/80
[2019-05-10 06:00] LABS: CALCIUM 6.7 MG/DL (8.5-10.1); CREATININE SERUM 0.99 MG/DL (0.60-1.30); POTASSIUM 2.8 MMOL/L (3.6-5.0)
[2019-05-10] MEDS: RT-ALBUTEROL/IPRATROPIUM 3 ML (DUONEB) VIAL INH SCH (07:43)
[2019-05-10] MEDS: fluCOnazole (DIFLUCAN) 100 MG TAB PO SCH (08:14)
[2019-05-10] MEDS: FLUoxetine HCL 20 MG (PROzac) CAP PO SCH (08:14)
[2019-05-10] MEDS: ACYCLOVIR 400 MG TABLET (ZOVIRAX) PO SCH (08:14)
[2019-05-10] MEDS: OLANZapine 2.5 MG (ZyPREXA) TAB PO SCH (08:15)
[2019-05-10] MEDS: meTOprolol TARTRATE 25 MG (LOPRESSOR) TABLET PO SCH (08:15)
[2019-05-10] MEDS: LETROZOLE 2.5 MG (FEMARA) TAB PO SCH (08:16)
[2019-05-10] MEDS: ASPIRIN E.C. 81 MG (ECOTRIN) TAB PO SCH (08:16)
[2019-05-10] MEDS ORDERED: KCL 20 MEQ TAB (K-DUR) PO NR (08:30)
[2019-05-10] MEDS ORDERED: LACT1CAP7 PO (09:10)
[2019-05-10] MEDS ORDERED: IPRA3AMP31 INH (09:10)
[2019-05-10] MEDS ORDERED: AMOX-358 PO (09:10)
--- NOTE | 2019-05-10 09:12 | Discharge Inst-Complex ---
PDI Reconcile Patient Problems Problems Reviewed?: Yes Med Rec & Follow Up Appt. New Medications: Amoxicillin/Potassium Clav (Augmentin 875-125 Tablet) 1 Each Tablet 1 EACH PO BID, #10 TAB Ipratropium/Albuterol Sulfate (Iprat-Albut 0.5-3(2.5) mg/3 ml) 3 Ml Ampul.neb 3 ML INH RTQID, #90 INHALER 1 Refill inhale qid x 3 days then tid x 3 days then bid x 1 wk then as needed for shortness of breath Lactobacillus Acidophilus/Pect (Acidophilus-Pectin Capsule) 1 Each Capsule 2 EACH PO TIDWM, #30 CAP Continued Medications: Acyclovir (Acyclovir) 400 Mg Tablet 400 MG PO DAILY, TAB Aspirin (Aspirin EC) 81 Mg Tablet.dr 81 MG PO DAILY, TAB Calcium Carbonate/Vitamin D3 (Calcium 600 + Vit D 200 Tablet) 1 Each Tablet 1 TAB PO DAILY, TAB Cyanocobalamin (Vitamin B-12) (Vitamin B-12) 1,000 Mcg Tablet 1000 MCG PO DAILY, TAB Ferrous Sulfate (Ferrous Sulfate) 325 Mg Tablet 325 MG PO 1700, TAB Fluoxetine HCl (Fluoxetine HCl) 20 Mg Capsule 20 MG PO DAILY, CAP Letrozole (Letrozole) 2.5 Mg Tablet 2.5 MG PO DAILY, TAB Levothyroxine Sodium (Levothyroxine Sodium) 75 Mcg Tablet 75 MCG PO DAILY, TAB Lovastatin (Lovastatin) 20 Mg Tablet 20 MG PO HS, TAB Metoprolol Tartrate (Metoprolol Tartrate) 25 Mg Tablet 12.5 MG PO BID, TAB TAKES 1/2 (25MG) TABLET Multivitamin (Multivitamins) 1 Each Tablet 1 TAB PO DAILY, TAB Niacinamide (Niacin) 500 Mg Tablet 500 MG PO HS, TAB Olanzapine (Olanzapine) 2.5 Mg Tablet 2.5 MG PO DAILY, TAB Omeprazole (Omeprazole) 20 Mg Capsule.dr 20 MG PO 1200,1700, CAP Oxycodone HCl/Acetaminophen (Oxycodone-Acetaminophen 5-325) 1 Each Tablet 1 TAB PO Q4H PRN for PAIN-MODERATE, TAB Discontinued Medications: Levalbuterol HCl (Levalbuterol HCl) 1.25 Mg/3 Ml Vial.neb 1.25 MG NEB Q4H PRN for SHORTNESS OF BREATH, EA Prescription: Transmitted to Pharmacy ([facility]) Patient Instructions: 1wk follow up with [facility] Activity, Diet and PDI Resume Normal Activity: Yes Discharge Diet: Regular Diet Diet for 24 Hours: No Alcohol Diet After 24 Hours: Clear Liquid if Nauseous Drink 6-8 Glasses of Fluid/Day: Yes Driving Instructions: No Driving for 1 Week Return to The Hospital For: any concern for lifethreatening illness or injury or any acute worsening in condition Symptoms to Reoprt to : Appetite Changes, Fever Over 101 Degrees F, Pain/Pressure in Chest, Diarrhea(Persistant), Questions/Concerns, Shortness of Breath For Problems or Questions: Contact Your Physician, Go to Emergency Room Infection Signs and Symptoms: Temperature Above 101 F ORTEGA PIERRE MD May 10, 2019 09:11
--- NOTE | 2019-05-10 09:22 | Discharge Summary ---
Diagnosis/Chief Complaint Date of Admission May 05, 2019 at 10:49 Date of Discharge Discharge Date: May 10, 2019 Discharge Time: 1000 Admission Diagnosis Admission Diagnosis PNEUMONIA HYPOXIA HYPERTENSION SCHIZOPHRENIA HYPOTHYROID CHRONIC IRON DEFICIENCY ANEMIA HX MULTIPLE MYELOMA WITH CHRONIC LEUKOPENIA Discharge Diagnosis PNEUMONIA HYPOXIA HYPERTENSION SCHIZOPHRENIA HYPOTHYROID CHRONIC IRON DEFICIENCY ANEMIA HX MULTIPLE MYELOMA WITH CHRONIC LEUKOPENIA Reason Hospital Visit THE PATIENT REPORTS THAT SHE HAS RECENTLY BEEN HOSPITALIZED FOR PNEUMONIA AND A URINARY TRACT INFECTION - FROM APRIL 22 TO APRIL 24 SHE WAS HOSPITALIZED AND FROM APRIL 27 TO MAY 02 SHE WAS ON THE SWING BED STATUS. SHE REPORTS THAT SINCE HER DISCHARGE SHE HAS NOT BEEN FEELING WELL, SHE HAS HAD PROGRESSIVE WORSENING OF HER COUGH, PROGRESSIVE FATIGUE AND FEVERS. SHE REPORTS SHORTNESS OF BREATH WITH AMBULATION AND UPON EVALUATION IN THE OFFICE THIS MORNING SHE REPORTS THAT SHE JUST DOES NOT FEEL WELL ENOUGH TO GO HOME. HER OXYGEN WAS AT 90% ON ROOM AIR IN THE OFFICE. HER HAS ALSO BEEN SICK FOR THE PAST FEW DAYS. Discharge Summary Discharge Physical Examination Allergies: Coded Allergies: No Known Drug Allergies (Verified , 05/05/19) Vitals & I&Os Vital Signs Date Time Temp Pulse Resp B/P (MAP) Pulse Ox O2 Delivery O2 Flow Rate FiO2 05/10/19 08:00 Nasal Cannula 3.00 05/10/19 07:44 92 05/10/19 06:00 36.9 70 20 154/80 (104) 05/05/19 13:28 21 General Appearance: Alert, Oriented X3, Cooperative, No Acute Distress HEENT: Atraumatic, PERRLA Respiratory: Other (faint wheezing and crackles in bases, but air movement vastly improved from admission) Cardiovascular: Regular Rate Abdominal: Normal Bowel Sounds, Soft, No Tenderness Extremities: No Clubbing, No Edema Skin: No Rashes, No Breakdown Neuro: Normal Speech, Strength at 5/5 X4 Ext, Cranial Nerves 3-12 NL Psych/Mental Status: Mental Status NL, Mood NL Hospital Course Was the Problem List Reviewed?: Yes PNEUMONIA HYPOXIA HYPERTENSION SCHIZOPHRENIA HYPOTHYROID CHRONIC IRON DEFICIENCY ANEMIA HX MULTIPLE MYELOMA WITH CHRONIC LEUKOPENIA PNEUMONIA WITH HYPOXIA - PT PLACED ON PNEUMONIA PROTOCOL, RX FOR ZOSYN AND VANCOMYCIN WITH MAT PROTOCOL, WILL MONITOR SERIAL CHEST XRAYS - PT STARTED ON SOLUMEDROL ON ADMISSION - DOSE DECREASED TO 40MG Q 6 HOURS, DOSE WAS DC'D ON 05/09/19 - LACTIC ACID NEGATIVE. - PROBIOTIC INITIATED TO PREVENT DIARRHEA DUE TO PROLONGED ANTIBIOTIC USE - DISCHARGE ON AUGMENTIN 875MG BID X 5 MORE DAYS ON DISCHARGE HYPERTENSION - RESTARTED METOPROLOL - MONITOR BLOOD PRESSURES OUTPATIENT CHRONIC LEUKOPENIA DUE TO HX OF MULTIPLE MYELOMA STATUS POST TREATMENT AND HX OF BREAST CANCER - MONITOR LABS - IMPROVED FROM ADMISSION SCHIZOPHRENIA - RESTARTED ANTIPSYCHOTICS HYPOTHYROID - RESTARTED SYNTHROID CHRONIC IRON DEFICIENCY ANEMIA - SUPPORTIVE CARE AT THIS TIME. - MONITOR LABS HYPOKALEMIA - 60MEQ POTASSIUM GIVEN TO PT THIS MORNING. PT ADMITTED TO THE HOSPITAL ON SWING-BED STATUS DUE TO HER RECURRENT PNEUMONIA AND RECENT HOSPITALIZATION WITH PNEUMONIA. THERAPIES STARTED WELL FOR PATIENT DUE TO HER PROLONGED HOSPITALIZATION PT HAS IMPROVED SIGNIFICANTLY - SHE WILL BE DISCHARGED TODAY ON 5 MORE DAYS OF ORAL ANTIBIOTICS, BREATHING TREATMENTS, AND FOLLOW UP IN THE OFFICE IN ONE WEEK FROM DISCHARGE. Pending Labs Laboratory Tests 05/10/19 05:30: White Blood Count 7.4, Red Blood Count 2.90, Hemoglobin 9.1, Hematocrit 29, Mean Corpuscular Volume 99, Mean Corpuscular Hemoglobin 31, Mean Corpuscular Hemogl obin Concent 32, Red Cell Distribution Width 14.9, Platelet Count 186, Mean Platelet Volume 9.8, Sodium Level 143, Potassium Level 2.8, Chloride Level 109, Carbon Dioxide Level 25, Anion Gap 9, Blood Urea Nitrogen 13, Creatinine 0.99, Estimat Glomerular Filtration Rate 55, BUN/Creatinine Ratio 13, Glucose Level 83, Calcium Level 6.7 Discharge Condition at discharge IMPROVED Instructions to patient/family Please see electronic discharge instructions given to patient. Discharge Medications Reviewed and agree with Discharge Medication list on patient's Discharge Instruction sheet Medication List: Active Scripts Active Augmentin 875-125 Tablet (Amoxicillin/Potassium Clav) 1 Each Tablet 1 Each PO BID Acidophilus-Pectin Capsule (Lactobacillus Acidophilus/Pect) 1 Each Capsule 2 Each PO TIDWM Iprat-Albut 0.5-3(2.5) mg/3 ml (Ipratropium/Albuterol Sulfate) 3 Ml Ampul.neb 3 Ml INH RTQID inhale qid x 3 days then tid x 3 days then bid x 1 wk then as needed for shortness of breath Reported Metoprolol Tartrate 25 Mg Tablet 12.5 Mg PO BID TAKES 1/2 (25MG) TABLET Aspirin EC (Aspirin) 81 Mg Tablet.dr 81 Mg PO DAILY Niacin (Niacinamide) 500 Mg Tablet 500 Mg PO HS Calcium 600 + Vit D 200 Tablet (Calcium Carbonate/Vitamin D3) 1 Each Tablet 1 Tab PO DAILY Multivitamins (Multivitamin) 1 Each Tablet 1 Tab PO DAILY Vitamin B-12 (Cyanocobalamin (Vitamin B-12)) 1,000 Mcg Tablet 1,000 Mcg PO DAILY Ferrous Sulfate 325 Mg Tablet 325 Mg PO 1700 Acyclovir 400 Mg Tablet 400 Mg PO DAILY Letrozole 2.5 Mg Tablet 2.5 Mg PO DAILY Oxycodone-Acetaminophen 5-325 (Oxycodone HCl/Acetaminophen) 1 Each Tablet 1 Tab PO Q4H PRN Fluoxetine HCl 20 Mg Capsule 20 Mg PO DAILY Omeprazole 20 Mg Capsule.dr 20 Mg PO 1200,1700 Olanzapine 2.5 Mg Tablet 2.5 Mg PO DAILY Levothyroxine Sodium 75 Mcg Tablet 75 Mcg PO DAILY Lovastatin 20 Mg Tablet 20 Mg PO HS Clinical Quality Measures DVT/VTE Risk/Contraindication: Risk Factor Score Per Nursin RFS Level Per Nursing on Admit: 3=High ORTEGA PIERRE MD May 10, 2019 09:22
--- NOTE | 2019-05-10 09:33 | Diagnostic Imaging Report ---
INDICATION: Pneumonia. Comparison made with prior examination of 05/08/2019. FINDINGS: The heart size is normal. There are patchy bilateral pulmonary infiltrates left greater than right. These appear to be increased size since prior examination. No pleural effusion or pneumothorax. Skcybs-b-Wuoj catheter lies left hemithorax. Some underlying central venous congestion cannot be excluded. IMPRESSION: Increasing bilateral pulmonary infiltrates left greater than right, suspect for pneumonia. Some underlying central pulmonary venous congestion cannot be excluded. Dictated by: Dictated on workstation # [id number]
--- NOTE | 2019-05-11 09:49 | Therapy Team Discharge Summary ---
Therapy Discharge Summary Discharge Recommendations Date of Discharge May 10, 2019 at 11:03 Physical Therapy This patient was admitted to swing bed post acute hospital stay for continued therapy servcies; admission was due to SOA, weakness and back pain. Prior to her hospital admission,, she was mod indep with all mobiltiy. Upon admission to [facility], she did require assist with transfers and gait (120 ft ) needed CGA for safety; sit to stand, she required min assist. Treatment focused on functional strength and balance paired with safety training to enhance her transfers and gait. At discharge, she was able to complete bed mobiltiy without assist but needed CGA for sit to stand; she required SBA with gait at dc but was able to walk 500 ft. She did make progress and met goals to a satisfactory level. Will DC PT at this time. Occupational Therapy Decreased Activ Tolerance, Decreased UE Strength, Impaired I ADL's, Impaired Self-Care Skills PT Care Home Goals Care Home Goals PT Care Home Goals Time Frame: May 12, 2019 Sit to Lying (QC): 4 (SBA) Lying-Sitting on Side/Bed(QC): 4 (SBA) Sit to Stand (QC): 4 (SBA) Chair/Ict-ny-Suilw Xfer(QC): 4 (SBA) Distance: 500ft with 2 or less standing rest breaks Walk 50ft with 2 Turns (QC): 4 (SBA) Walk 150 ft (QC): 4 (SBA) Gait Assistive Device: FWW OT Care Home Goals Medical Lab Specialist Goals Eating (QC): 6 (met) Oral Hygiene (QC): 6 (met) Toileting Hygiene (QC): 6 (met) Toilet/Commode Transfer (QC): 6 (met) Additional Goals: 1-Demonstrate ADL Tasks, 2-Verbalize Understanding, 3- ImproveStrength/Sanchez 1=Demonstrate adherence to instructed precautions during ADL tasks. 2=Patient will verbalize/demonstrate understanding of assistive devices/modifications for ADL. 3=Patient will improve strength/tolerance for activity to enable patient to perform ADL's. MOLLY WEISS PT May 11, 2019 09:49
--- NOTE | 2019-05-13 15:25 | Therapy Team Discharge Summary ---
Therapy Discharge Summary Discharge Recommendations Date of Discharge May 10, 2019 at 11:03 Occupational Therapy Pt admitted to [facility] due to SOA, weakness, back pain. Prior level of function was IND without AE. Upon admission, pt demonstrated IND with all ADL activities, required OT services to address functional mobility, strength, endurance training, and education and safety within the home. Treatment focused on ADL activities with focus on paired education of strengthening, diaphragmatic breathing, energy conservation, and skilled adaptive techniques. Pt d/c'd with a ll goals met. OT d/c at this time. Decreased Activ Tolerance, Decreased UE Strength, Impaired I ADL's, Impaired Self-Care Skills PT Penitentiary Goals Outreach Representative Goals PT Outreach Representative Goals Time Frame: May 12, 2019 Roll Left to Right (QC): 4 (SBA) Sit to Lying (QC): 4 (SBA) Lying-Sitting on Side/Bed(QC): 4 (SBA) Sit to Stand (QC): 4 (SBA) Chair/Kca-qs-Bmcsi Xfer(QC): 4 (SBA) Distance: 500ft with 2 or less standing rest breaks Walk 10 feet (QC): 4 (SBA) Walk 10ft-Uneven Surface(QC): 4 (SBA) Walk 50ft with 2 Turns (QC): 4 (SBA) Walk 150 ft (QC): 4 (SBA) Gait Assistive Device: FWW OT Penitentiary Goals Penitentiary Goals Eating (QC): 6 (met) Oral Hygiene (QC): 6 (met) Shower/Bathe Self (QC): 6 (met) Upper Body Dressing (QC): 6 (met) Lower Body Dressing (QC): 6 (met) On/Off Footwear (QC): 6 (met) Toileting Hygiene (QC): 6 (met) Toilet/Commode Transfer (QC): 6 (met) Additional Goals: 1-Demonstrate ADL Tasks, 2-Verbalize Understanding, 3- ImproveStrength/Sanchez 1=Demonstrate adherence to instructed precautions during ADL tasks. 2=Patient will verbalize/demonstrate understanding of assistive devices/modifications for ADL. 3=Patient will improve strength/tolerance for activity to enable patient to perform ADL's. LAURY LEAL OTR May 13, 2019 15:24
== END 2019-05-10 11:03 | disposition home or self-care (01) | DRG 194 ==
LOC: UNDOADMIN 10:49 → 4TH 10:49
PROVIDERS: ADMIT Family Medicine; ATTEND Family Medicine
DX: J18.9 Pneumonia, unspecified organism (principal); R09.02 Hypoxemia; C90.00 Multiple myeloma not having achieved remission; C95.90 Leukemia, unspecified not having achieved remission; N17.9 Acute kidney failure, unspecified; R35.0 Frequency of micturition; E87.6 Hypokalemia; F20.9 Schizophrenia, unspecified; E03.9 Hypothyroidism, unspecified; D50.9 Iron deficiency anemia, unspecified; E78.00 Pure hypercholesterolemia, unspecified; I10 Essential (primary) hypertension; M54.9 Dorsalgia, unspecified; F41.9 Anxiety disorder, unspecified; F32.9 Major depressive disorder, single episode, unspecified; J30.2 Other seasonal allergic rhinitis; Z87.891 Personal history of nicotine dependence; Z85.3 Personal history of malignant neoplasm of breast; Z92.21 Personal history of antineoplastic chemotherapy; Z87.440 Personal history of urinary (tract) infections; Z23 Encounter for immunization
CPT/HCPCS: 36415; 71046; 80048; 80053; 80202; 83605; 83735; 85027; 87040; 94640; 94664; 94760

== ENCOUNTER → 2019-06-25 | Outpatient (CLI) | payer MEDICARE, OTHER ==
[~2019-06-25] MED LIST changes: +AMOX-358 PO; +CATHETER FLUSH 10 ML SYR IV PRN; +HOLD METFORMIN - RECEIVED CONTRAST 20 ML VIAL IV SCH; +IOHEXOL 350 MG/ML 100 ML (OMNIPAQUE 350) VIAL IV ONE; +IPRA3AMP31 INH; +LACT1CAP7 PO; +LEVA1.2543 NEB; +NS 100 ML (IVPB) BAG IV ONE; +RT-ALBUTEROL SULF 2.5 MG/3 ML PRE-MIX VIAL INH ONE; +RT-ALBUTEROL SULF 2.5 MG/3 ML PRE-MIX VIAL ONE
[2019-06-25 08:55] LABS: CREATININE SERUM 1.13 MG/DL (0.60-1.30)
--- NOTE | 2019-06-25 10:30 | Diagnostic Imaging Report ---
PROCEDURE: CT chest with contrast only. TECHNIQUE: Multiple contiguous axial images were obtained through the chest after administration of intravenous contrast. Auto Exposure Controls were utilized during the CT exam to meet ALARA standards for radiation dose reduction. INDICATION: Cough, pneumonia, history of breast cancer. FINDINGS: The previous CT chest and abdomen exam of 09/14/2017 noted diffuse alveolar/interstitial pulmonary infiltrates involving both lungs. These were felt to be secondary to pneumonia. The possibility of an atypical infectious process was also raised. The recent plain film examination of the chest performed on 05/10/2019 also suggested bilateral pneumonia/atelectasis. On this study, both lungs do seem much better aerated. There are still a few coarse interstitial densities along the periphery of the left upper lobe. I suspect that these are secondary to chronic atelectasis and/or scar formation. There are also a few vague alveolar infiltrates bilaterally. These may also be chronic in nature. There is no consolidated pneumonia identified nor is there any evidence for a pleural effusion. The heart is enlarged but stable when compared to the prior exam. Coronary artery calcifications are evident. The aorta is not abnormally dilated and there is no sign of dissection. The pulmonary arteries were not fully opacified and consequently difficult to assess for pulmonary embolus. There are linear areas of low density in the pulmonary arteries to the right lower lobe. These may be secondary to a flow phenomena as opposed to pulmonary embolus. There is no mediastinal or hilar adenopathy. The thyroid gland where visualized is unremarkable. The prominent hiatal hernia seen on the previous study is again evident. The sections through the upper abdomen failed to show any sign of an acute abnormality. The bone windows again show post kyphoplasty changes involving T8. The compression deformities of T6, T7, T10, T12, L1 and L2 noted previously are again evident and no different. IMPRESSION: 1. The appearance to the chest has improved as both lungs do seem much better aerated. There are chronic pulmonary changes evident but there is no sign of any significant consolidation or pleural effusion. 2. The small defects in the pulmonary arteries to the right lower lobe may well be related to flow phenomena as opposed to pulmonary emboli. Clinical follow-up is recommended. 3. There is cardiomegaly and coronary artery disease. 4. The hiatal hernia seen previously is again evident and no different. 5. Post-kyphoplasty changes of T8 appear stable. The other compression deformities of the lower thoracic and upper lumbar spine appear unchanged as well. Dictated by: Dictated on workstation # [id number]
== END ==
LOC: RT 08:14
PROVIDERS: ATTEND Nurse Practitioner Family
DX: J18.9 Pneumonia, unspecified organism (principal); R91.8 Other nonspecific abnormal finding of lung field; Z87.891 Personal history of nicotine dependence
CPT/HCPCS: 36415; 71260; 82565; 84520; 94060; 94726; 94729

== ENCOUNTER 2019-08-26 12:25 | Outpatient (RCR) | payer MEDICARE, OTHER ==
[~2019-08-26 12:25] MED LIST changes: -CATHETER FLUSH 10 ML SYR IV PRN; -HOLD METFORMIN - RECEIVED CONTRAST 20 ML VIAL IV SCH; -IOHEXOL 350 MG/ML 100 ML (OMNIPAQUE 350) VIAL IV ONE; -NS 100 ML (IVPB) BAG IV ONE; -RT-ALBUTEROL SULF 2.5 MG/3 ML PRE-MIX VIAL INH ONE; -RT-ALBUTEROL SULF 2.5 MG/3 ML PRE-MIX VIAL ONE
[2019-08-26 13:02] LABS: BASOPHILS % (AUTO) 0 % (0-10); EOSINOPHILS # (AUTO) 0.1 10^3/uL (0.0-0.3); EOSINOPHILS % (AUTO) 3 % (0-10); HEMATOCRIT 38 % (35-52); HEMOGLOBIN 12.3 G/DL (11.5-16.0); LYMPHOCYTES # (AUTO) 1.5 X 10^3 (1.0-4.0); LYMPHOCYTES % (AUTO) 32 % (12-44); MEAN CORPUSCULAR HEMOGLOBIN 31 PG (25-34); MEAN CORPUSCULAR HGB CONC 32 G/DL (32-36); MEAN CORPUSCULAR VOLUME 97 FL (80-99); MEAN PLATELET VOLUME 9.7 FL (7.4-10.4); MONOCYTES # (AUTO) 0.9 X 10^3 (0.0-1.0); MONOCYTES % (AUTO) 20 % (0-12); NEUTROPHILS # (AUTO) 2.1 X 10^3 (1.8-7.8); NEUTROPHILS % (AUTO) 45 % (42-75); PLATELET COUNT 184 10^3/uL (130-400); RED CELL DISTRIBUTION WIDTH 14.9 % (10.0-14.5); WHITE BLOOD COUNT 4.6 10^3/uL (4.3-11.0)
[2019-08-26 13:20] LABS: ALBUMIN 3.8 GM/DL (3.2-4.5); BILIRUBIN,TOTAL 0.5 MG/DL (0.1-1.0); CREATININE SERUM 1.17 MG/DL (0.60-1.30); TOTAL PROTEIN 7.2 GM/DL (6.4-8.2)
== END 2019-09-01 | disposition home or self-care (01) ==
LOC: ONC 12:25
PROVIDERS: ATTEND Internal Medicine Hematology & Oncology
DX: C90.00 Multiple myeloma not having achieved remission (principal); C50.412 Malignant neoplasm of upper-outer quadrant of left female breast; M85.80 Other specified disorders of bone density and structure, unspecified site; Z92.21 Personal history of antineoplastic chemotherapy; Z92.3 Personal history of irradiation; Z79.811 Long term (current) use of aromatase inhibitors; Z79.899 Other long term (current) drug therapy
CPT/HCPCS: 36591; 80053; 82232; 82728; 82784; 83883; 85025; 96523

== ENCOUNTER → 2019-09-09 | Outpatient (CLI) | payer MEDICARE, OTHER ==
[~2019-09-09] MED LIST changes: +DENOSUMAB 60 MG/1 ML (PROLIA) CANCER CTR SQ SCH
== END ==
LOC: EDSTATUS 09-02 08:43 → ONC 08:45
PROVIDERS: ATTEND Internal Medicine Hematology & Oncology
DX: C90.00 Multiple myeloma not having achieved remission (principal); C50.412 Malignant neoplasm of upper-outer quadrant of left female breast; M85.88 Other specified disorders of bone density and structure, other site; Z79.811 Long term (current) use of aromatase inhibitors; Z98.890 Other specified postprocedural states
CPT/HCPCS: 96372

== ENCOUNTER → 2019-10-07 | Outpatient (CLI) | payer MEDICARE, OTHER ==
[~2019-10-07] MED LIST changes: -DENOSUMAB 60 MG/1 ML (PROLIA) CANCER CTR SQ SCH; -FLUO20CA45 PO; +FLUO20CA46 PO; +LETR2.5T6 PO; -OMEP-280 PO; +OMEP20CA18 PO
== END ==
LOC: ONC 10:44
PROVIDERS: ATTEND Internal Medicine Hematology & Oncology
DX: Z45.2 Encounter for adjustment and management of vascular access device (principal); C90.00 Multiple myeloma not having achieved remission; C50.412 Malignant neoplasm of upper-outer quadrant of left female breast; Z79.811 Long term (current) use of aromatase inhibitors
CPT/HCPCS: 96523

== ENCOUNTER 2019-11-16 08:28 | Emergency (ER) | payer MEDICARE, OTHER ==
[~2019-11-16] VITALS: Ht 152 cm; Wt 59.0 kg
--- OUTSIDE RECORDS SUMMARY | 2019-11-16 08:43 | XMS REPORT | Clinical Summary ---
Author Author [facility] Organization [facility] Address Unknown Phone Unavailable Care Team Providers Care Knowledge Management Consultant Name Role Phone Disha Robbins MD PCP Piero Jimenez MD Unavailable Unavailable Source Comments Some departments are not documenting in the electronic medical record. If you d o not see the information that you expected, contact [facility] Information in [facility] Information Management department at [phone] for further assistan ce in locating additional records.[facility] Allergies No Known Allergies Medications End Date Status Medication Sig Dispensed Refills Start Date Active LEVOTHYROXINE SODIUM Take 50 mg by 0 (LEVOTHYROXINE PO) mouth. Active acyclovir (ZOVIRAX) 400 Take 400 mg 0 mg tablet by mouth Twice Daily. Active estrogens, conjugated,+, Apply 0.5 g 0 (PREMARIN) 0.625 mg/g to affected vaginal cream area Every Mo & Tu. Active mupirocin (BACTROBAN) 2 % Apply to 0 topical ointment affected area Twice Daily. Active fluconazole (DIFLUCAN) 40 Take 200 mg 0 mg/mL oral suspension by mouth Daily. Active FOLIC ACID PO Take 2 mg by 0 mouth Twice Daily. Active potassium chloride,+, Take 20 mEq 0 (MICRO-K) 10 mEq capsule by mouth Daily. Active MULTIVITAMINS Take 1 Tab by 0 (MULTI-VITAMIN PO) mouth Daily. Active CALCIUM CARBONATE/VITAMIN Take 600 mg 0 D2 (CALCIUM + VITAMIN D by mouth PO) Daily. Active magnesium oxide (MAG-OX) Take 400 mg 0 400 mg tablet by mouth Daily. Active lorazepam (ATIVAN) 0.5 mg Take 1 mg by 0 tablet mouth Twice Daily as needed. Active albuterol 0.083% Inhale 2.5 mg 0 (PROVENTIL; VENTOLIN) 2.5 solution as mg /3 mL (0.083 %) directed As nebulizer solution Needed for Wheezing. Active Problems Problem Noted Date SAH (subarachnoid hemorrhage) 12/05/2009 Multiple myeloma, without mention of having achieved remission 12/02/2009 Personal history of DVT (deep vein thrombosis) 12/02 Overview: Right leg S/P insertion of IVC (inferior vena caval) filter Thrombocytopenia 12/02/2009 Family History Medical History Relation Name Comments Heart Failure Mother Relation Name Status Comments Father Mother Alive Social History Date Tobacco Use Types Packs/Day Years Used Quit: 07/21/1979 Former Smoker Drinks/Week oz/Week Comments Alcohol Use No Sex Assigned at Date Recorded Not on file Industry Job Start Date Occupation Not on file Not on file Not on file Travel End Travel History Travel Start No recent travel history available. Last Filed Vital Signs Reading Time Taken Comments Vital Sign 112/72 12/05/2009 4:14 PM CDT Blood Pressure 112 12/05/2009 4:14 PM CDT Pulse 36.7 C (98.1 F) 12/05/2009 4:14 PM CDT Temperature - - Respiratory Rate 96% 12/05/2009 4:14 PM CDT Oxygen Saturation - - Inhaled Oxygen Concentration 62.4 kg (137 lb 8 oz) 12/05/2009 8:42 AM CDT Weight 157.5 cm (5' 2") 12/04/2009 12:04 PM CDT Height 25.15 12/04/2009 12:04 PM CDT Body Mass Index Plan of Treatment Health Maintenance Due Date Last Done Comments DTAP/TDAP VACCINES (1 - 1965 Tdap) HEPATITIS C SCREENING 1965 PHYSICAL (COMPREHENSIVE) 1965 EXAM BREAST CANCER SCREENING 1987 COLORECTAL CANCER 1997 SCREENING SHINGLES RECOMBINANT 1997 VACCINE (1 of 2) OSTEOPOROSIS 2012 SCREENING/MONITORING PNEUMONIA (PPSV23) 2012 VACCINE (1 of 1 - PPSV23) INFLUENZA VACCINE 04/20/2020 Results Not on filefrom Last 3 Months
--- OUTSIDE RECORDS SUMMARY | 2019-11-16 08:43 | XMS REPORT | Clinical Summary ---
Author Author [facility] Organization [facility] Address Unknown Phone Unavailable Care Team Providers Care Mime Artist Name Role Phone PCP Unavailable Allergies Not on File Medications Not on file Active Problems Not on file Social History Date Tobacco Use Types Packs/Day Years Used Never Assessed Sex Assigned at Date Recorded Not on file Industry Job Start Date Occupation Not on file Not on file Not on file Travel End Travel History Travel Start No recent travel history available. Last Filed Vital Signs Not on file Plan of Treatment Not on file Results Not on filefrom Last 3 Months
--- OUTSIDE RECORDS SUMMARY | 2019-11-16 08:43 | XMS REPORT | Encounter Summary ---
Author Author [facility] Organization [facility] Address Unknown Phone Unavailable Care Team Providers Care Supervisor Fishing Name Role Phone PCP Unavailable Encounter Details Care Team Description Date Type Department 12/05/2009 [facility] al Encounter [address] [place] [address] Social History Date Tobacco Use Types Packs/Day Years Used Never Assessed Sex Assigned at Date Recorded Not on file Industry Job Start Date Occupation Not on file Not on file Not on file Travel End Travel History Travel Start No recent travel history available. documented as of this encounter Plan of Treatment Not on filedocumented as of this encounter Procedures Comments Procedure Name Priority Date/Time Associated Diag nosis HEPARIN INDUCED PLATELET Routine 12/04/2009 ANTIBODY 5:20 PM CDT documented in this encounter Results * Heparin Induced Platelet Antibody (12/04/2009 5:20 PM CDT) Heparin Negative Negative [facility] Antibody Heparin 0.068 0.000 - 0.499 [facility] Antibody Optical Density Specimen Blood Performing Organization Address City/State/Zipcode Ph one Number [facility] [address] [place], [place] [address] [place] documented in this encounter Visit Diagnoses Not on filedocumented in this encounter
--- NOTE | 2019-11-16 08:45 | NUR ---
PT NOT OUTSIDE COVID DOORS. REGISTRATION NOTIFIED WHO STATES SHE IS IN THE WAITING ROOM.
--- OUTSIDE RECORDS SUMMARY | 2019-11-16 08:49 | XMS REPORT | CCD ---
Author Author Nikole Robbins Organization Disha Robbins MD, [facility] Address [address] [place] [address] Phone Care Team Providers Care Director Business Development Name Role Phone PP Unavailable CCM Unavailable Summary Purpose Interface Exchange Insurance Providers Payer name Policy type / Coverage type Covered libertarian ID Effective Begin Date Effective End Date WPS Medicare Part B Medicare Part B [id number] 2018 Unknown [employer] Medicare Part B [id number] Unknown Family history Son Diagnosis Age At Onset No Family Disease Entered N/A Father Diagnosis Age At Onset Diabetes Unknown Heart disease Unknown Daughter Diagnosis Age At Onset No Family Disease Entered N/A Mother Diagnosis Age At Onset Heart disease Unknown Sister Diagnosis Age At Onset No Family Disease Entered N/A Sister Diagnosis Age At Onset No Family Disease Entered N/A Social History Social History Element Codes Description Effective Dates Marital status Unknown M arried 06/26/2011 Employment Unknown Curre ntly unemployed 06/26/[address]: 486363472 Never smoker 06/26/[address]: 628158784 Never drinks alcohol 06/26/2011 Has the patient ever used illegal drugs? 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 Active 01/27/2018 Unknown Other hypotension ICD-9: 458.8 ICD-10: I95.89 Active 10/13/2017 Unknown Ventricular tachycardia ICD-9: 427.1 ICD-10: I47.2 Active 10/13/2017 Unknown Atrophy of thyroid ( acquired) ICD-9: 244.8 ICD-10: E03.4 Active 05/19/2016 Unknown Open bite of left up per arm, initial encounter ICD-9: 880.03 ICD-10: S41.152A Active 05/27/2017 Unknown Mixed hyperlipidemia ICD-9: 272.2 ICD-10: E78.2 Active 03/18/2017 Unknown Rash and other nonsp ecific skin eruption ICD-9: 782.1 ICD-10: R21 Active 12/20/2016 Unknown Acute bronchitis, un specified ICD-9: 466.0 ICD-10: J20.9 Active 12/17/2016 Unknown Cough ICD-9: 786.2 ICD-10: R05 Active 12/17/2016 Unknown Generalized anxiety disorder ICD-9: 300.02 ICD-10: F41.1 Active 09/03/2012 Unknown Mixed hyperlipidemia ICD-9: 272.4 ICD-10: E78.2 Active 09/20/2015 Unknown Encounter for genera l adult medical examination without abnormal findings ICD-9: V70.0 ICD-10: Z00.00 Active 12/10/2015 Unknown Blister (nonthermal) , right great toe, initial encounter ICD-9: 917.2 ICD-10: S90.421A Active 10/05/2015 Unknown Elevated blood-press ure reading, without diagnosis of hypertension ICD-9: 796.2 ICD-10: R03.0 Active 09/20/2015 Unknown Hypothyroidism, unsp ecified ICD-9: 244.9 ICD-10: E03.9 Active 09/20/2015 Unknown Need for pneumococca l vaccine ICD-9: V03.82 Active 12/2014 Unknown Hypertension Unknown Active 01/25/2014 Unknow n DEPRESSIVE DISORDER NEC ICD-9: 311 Active 01/25/2014 Unknown HYPERLIPIDEMIA ICD-9: 272.4 Active 01/25/2014 Unknown HYPOTHYROIDISM ICD-9: 244.9 Active 01/25/2014 Unknown ACUTE PHARYNGITIS ICD-9: 462 Active 01/10/2014 Unknown Ear pain ICD-9: 388.70 Active 09/23/2013 Unknow n BACTERIAL PNEUMONIA ICD- 9: 482.9 Active 09/09/2013 Unknown Encounter for long-t erm (current) use of other medications ICD-9: V58.69 Active 09/09/2013 Unknown ESOPHAGEAL REFLUX ICD-9: 530.81 Active 06/03/2013 Unknown 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: 333.90 Active 12/31/2012 Unknown Renal insufficiency ICD- 9: 593.9 Active 10/01/2012 Unknown KIMANI (generalized anx iety disorder) ICD-9: 300.02 Active Unknown Depression Unknown Active 06/26/2011 Unknow n Gastroesophageal ref lux disease Unknown Active 1 Unknown Hyperlipidemia Unknown Active 06/26/2011 Unknow n Hypothryroidism Unknown Active 06/26/2011 Unknow n multiple myleoma Unknown Active 06/26/2011 Unknow n ACUTE MAXILLARY SINU SITIS ICD-9: 461.0 Active 01/2011 Unknown Problems Condition Codes Effectiv e Dates Condition Status Essential (primary) hypertension ICD-9: 401.1 ICD-10: I10 03/18/2017 Active 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 ICD-10: 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.2 01/27/2018 Active 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 01/27/2018 Active Other hypotension ICD-9: 458.8 ICD-10: I95.89 10/13/2017 Active Ventricular tachycardia ICD-9: 427.1 ICD-10: I47.2 10/13/2017 Active Atrophy of thyroid ( acquired) ICD-9: 244.8 ICD-10: E03.4 05/19/2016 Active Open bite of left up per arm, initial encounter ICD-9: 880.03 ICD-10: S41.152A 05/27/2017 Active Mixed hyperlipidemia ICD-9: 272.2 ICD-10: E78.2 03/18/2017 Active Rash and other nonsp ecific skin eruption ICD-9: 782.1 ICD-10: R21 12/20/2016 Active Acute bronchitis, un specified ICD-9: 466.0 ICD-10: J20.9 12/17/2016 Active Cough ICD-9: 786.2 ICD-10: R05 12/17/2016 Active Generalized anxiety disorder ICD-9: 300.02 ICD-10: F41.1 09/03/2012 Active Mixed hyperlipidemia ICD-9: 272.4 ICD-10: E78.2 09/20/2015 Active Encounter for genera l adult medical examination without abnormal findings ICD-9: V70.0 ICD-10: Z00.00 12/10/2015 Active Blister (nonthermal) , right great toe, initial encounter ICD-9: 917.2 ICD-10: S90.421A 10/05/2015 Active Elevated blood-press ure reading, without diagnosis of hypertension ICD-9: 796.2 ICD-10: R03.0 09/20/2015 Active Hypothyroidism, unsp ecified ICD-9: 244.9 ICD-10: E03.9 09/20/2015 Active Need for pneumococca l vaccine ICD-9: V03.82 07/26/2014 Active Hypertension Unknown 01/25/2014 Active DEPRESSIVE DISORDER NEC ICD-9: 311 01/25/2014 Active HYPERLIPIDEMIA ICD-9: 272.4 01/25/2014 Active HYPOTHYROIDISM ICD-9: 244.9 01/25/2014 Active ACUTE PHARYNGITIS ICD-9: 462 01/10/2014 Active Ear pain ICD-9: 388.70 09/23/2013 Active BACTERIAL PNEUMONIA ICD- 9: 482.9 09/09/2013 Active Encounter for long-t erm (current) use of other medications ICD-9: V58.69 09/09/2013 Active ESOPHAGEAL REFLUX ICD-9: 530.81 06/03/2013 Active 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: 333.90 12/31/2012 Active Renal insufficiency ICD- 9: 593.9 10/01/2012 Active KIMANI (generalized anx iety disorder) ICD-9: 300.02 09/03/2012 Active Depression Unknown 06/26/2011 Active Gastroesophageal ref lux disease Unknown 06/26/2011 Activ e Hyperlipidemia Unknown 06/26/2011 Active Hypothryroidism Unknown 06/26/2011 Active multiple myleoma Unknown 06/26/2011 Active ACUTE MAXILLARY SINU SITIS ICD-9: 461.0 06/26/2011 Active Medications Medication Codes Instruc tions Start Date Stop Date Sta tus Fill Instructions metoprolol tartrate 25 mg tablet RxNorm: 927591 TAKE 1/2 (ONE-HALF) T ABLET BY MOUTH TWICE DAILY 01/01/2019 No Stop Date Active olanzapine 2.5 mg ta blet RxNorm: 605754 TAKE 1 TABLET BY MOUT H ONCE DAILY 12/21/2018 No Stop Date Active fluoxetine 20 mg cap kameron RxNorm: 375543 TAKE 1 CAPSULE BY ANGELIQUE TH ONCE DAILY 11/17/2018 No Stop Date Active lovastatin 20 mg tablet RxNorm: 655686 TAKE 1 TABLET BY MOUTH AT BEDTIME 11/10/2018 No Stop Date Active metoprolol tartrate 25 mg tablet RxNorm: 152904 TAKE 1/2 (ONE-HALF) T ABLET BY MOUTH TWICE DAILY 09/03/2018 12/31/2018 Inactive Synthroid 75 mcg tablet RxNorm: 671540 TAKE ONE TABLET BY MOUTH ONCE DAILY 08/24/2018 No Stop Date Active olanzapine 2.5 mg ta blet RxNorm: 993578 TAKE 1 TABLET BY MOUT H ONCE DAILY 06/24/2018 12/20/2018 In active fluoxetine 20 mg cap kameron RxNorm: 100019 TAKE 1 CAPSULE BY ANGELIQUE TH ONCE DAILY 05/14/2018 11/16/2018 In active metoprolol tartrate 25 mg tablet RxNorm: 483577 1/2 Tablet(s) PO BID 05/07/2018 09/02/2018 Inactive olanzapine 2.5 mg ta blet RxNorm: 099083 TAKE ONE TABLET BY MO UTH ONCE DAILY 12/23/2017 06/23/2018 In active fluoxetine 20 mg cap kameron RxNorm: 732427 TAKE ONE CAPSULE BY M OUTH ONCE DAILY 11/14/2017 05/13/2018 In active lovastatin 20 mg tablet RxNorm: 028261 Tablet(s) TAKE ONE TABLET BY MOUTH AT BE DTIWA 10/24/2017 10/18/2018 Inactive KCL 20 meq RxNorm: 1 PO BID 10/13/2017 No S top Date Active niacin ER 500 mg tab let,extended release RxNorm: 473370 1 Tablet(s) PO QHS 10/13/2017 No Stop Date Active cefdinir 300 mg capsule RxNorm: 907440 1 Capsule(s) PO BID 09/30/2017 10/06/2017 Inactive cefdinir 300 mg capsule RxNorm: 236980 1 Capsule(s) PO BID 09/30/2017 09/29/2017 Inactive Zithromax Z-Yan 250 mg tablet RxNorm: 808954 1 Tablet(s) PO UD 09/30/2017 10/12/2017 Inactive z pack as directed lovastatin 20 mg tablet RxNorm: 790404 Tablet(s) TAKE ONE TABLET BY MOUTH AT BE DTIME 09/10/2017 10/23/2017 Inactive Synthroid 75 mcg tablet RxNorm: 127502 TAKE ONE TABLET BY MOUTH ONCE DAILY 08/01/2017 08/23/2018 In active olanzapine 2.5 mg ta blet RxNorm: 491415 TAKE ONE TABLET BY MO UTH ONCE DAILY 05/27/2017 11/22/2017 In active Zithromax Z-Yan 250 mg tablet RxNorm: 278870 1 Tablet(s) PO UD 04/29/2017 09/29/2017 Inactive z pack as directed fluoxetine 20 mg cap kameron RxNorm: 634898 TAKE ONE CAPSULE BY [facility] ONCE DAILY 04/28/2017 10/24/2017 In active lovastatin 20 mg tablet RxNorm: 574657 TAKE ONE TABLET BY MOUTH AT BEDTIME 04/28/2017 09/09/2017 In active Synthroid 75 mcg tablet RxNorm: 220816 TAKE ONE TABLET BY MOUTH ONCE DAILY 04/08/2017 07/31/2017 In active losartan 50 mg tablet RxNorm: 396661 1 Tablet(s) PO daily 03/20/2017 10/08/2017 Inactive losartan 50 mg tablet RxNorm: 557644 1 Tablet(s) PO daily 03/18/2017 03/19/2017 Inactive olanzapine 2.5 mg ta blet RxNorm: 043609 TAKE ONE TABLET BY MO UT ONCE DAILY 02/28/2017 05/26/2017 In active Kenalog 40 mg/mL kassie pension for injection RxNorm: 3245891 Milliliter(s) Inj 12/20/2016 12/20/2016 In active ceftriaxone 500 mg s olution for injection RxNorm: 8144957 1 Milliliter(s) Inj 12/17/2016 12/17/2016 In active Zithromax Z-Yan 250 mg tablet RxNorm: 527201 1 Tablet(s) PO UD 12/17/2016 12/21/2016 Inactive zpack Kenalog 40 mg/mL kassie pension for injection RxNorm: 0344255 1 Milliliter(s) Inj 12/17/2016 12/17/2016 In active Synthroid 75 mcg tablet RxNorm: 116959 TAKE ONE TABLET BY MOUTH ONCE DAILY 11/08/2016 04/06/2017 In active lovastatin 20 mg tablet RxNorm: 809211 TAKE ONE TABLET BY MOUTH AT BEDTIME 10/28/2016 04/25/2017 In active fluoxetine 20 mg cap kameron RxNorm: 770755 TAKE ONE CAPSULE BY M OUTH ONCE DAILY 10/28/2016 04/25/2017 In active Synthroid 75 mcg tablet RxNorm: 907766 TAKE ONE TABLET BY MOUTH ONCE DAILY 10/08/2016 11/06/2016 In active Zithromax Z-Yan 250 mg tablet RxNorm: 288965 1 Tablet(s) PO UD 07/29/2016 09/16/2016 Inactive zpack as directed olanzapine 2.5 mg ta blet RxNorm: 19990922 TAKE ONE TABLET BY MO UTH ONCE DAILY 07/29/2016 06/23/2018 In active lovastatin 20 mg tablet RxNorm: 102047 TAKE ONE TABLET BY MOUTH AT BEDTIME 07/02/2016 10/27/2016 In active olanzapine 2.5 mg ta blet RxNorm: 244763 TAKE ONE TABLET BY MO UTH ONCE DAILY 04/29/2016 09/16/2016 In active olanzapine 2.5 mg ta blet RxNorm: 909849 TAKE ONE TABLET BY MO UTH ONCE DAILY 04/29/2016 04/28/2016 In active fluoxetine 20 mg cap kameron RxNorm: 377342 TAKE ONE CAPSULE BY M OUTH ONCE DAILY 03/26/2016 09/21/2016 In active olanzapine 2.5 mg ta blet RxNorm: 19990922 Tablet(s) TAKE ONE TA BLET BY MOUTH ONCE DAILY 01/31/2016 03/30/2016 Inactive olanzapine 2.5 mg ta blet RxNorm: 891013 Tablet(s) TAKE ONE TA BLET BY MOUTH ONCE DAILY 01/25/2016 01/30/2016 Inactive lovastatin 20 mg tablet RxNorm: 884300 TAKE ONE TABLET BY MOUTH AT BEDTIME 12/28/2015 06/24/2016 In active fluoxetine 20 mg cap kameron RxNorm: 615771 Capsule(s) TAKE ONE C APSULE BY MOUTH ONCE DAILY 12/28/2015 09/16/2016 Inactive olanzapine 2.5 mg ta blet RxNorm: 19990922 TAKE ONE TABLET BY MO UTH ONCE DAILY 11/24/2015 01/22/2016 In active mupirocin 2 % topica l ointment RxNorm: 009097 1 Application TOP BID 10/06/2015 10/12/2015 Inactive Synthroid 75 mcg tablet RxNorm: 196644 Tablet(s) PO daily TAKE ONE TABLET BY MO MEH EVERY DAY 09/18/2015 09/11/2016 Inactive [SAVINGS FOR NON-COVERED DR UGS -- BIN:[id number], PCN: ASPROD1, Group: XXXXX, ID# [id number], Questions: . THIS IS NOT INSURANCE.] Synthroid 75 mcg tablet RxNorm: 740853 Tablet(s) PO daily TAKE ONE TABLET BY MO [facility] EVERY DAY 09/15/2015 09/17/2015 Inactive [SAVINGS FOR NON-COVERED DR UGS -- BIN:[id number], PCN: ASPROD1, Group: XXXXX, ID# [id number], Questions: . THIS IS NOT INSURANCE.] Synthroid 75 mcg tablet RxNorm: 840334 Tablet(s) TAKE ONE TABLET BY MOUTH EVERY DAY 09/14/2015 09/14/2015 Inactive [SAVINGS FOR NON-COVERED DRUGS -- BIN:00 3585, PCN: ASPROD1, Group: XXXXX, ID# [id number], Questions: . THIS IS NOT INSURANCE.] fluoxetine 20 mg cap kameron RxNorm: 245492 TAKE ONE CAPSULE BY [facility] ONCE DAILY 08/24/2015 12/21/2015 In active lovastatin 20 mg tablet RxNorm: 558389 1 Tablet(s) PO QHS TAKE ONE TABLET BY [facility] AT BEDTIME 05/29/2015 12/24/2015 Inactive [SAVINGS FOR NON-COVERED DR UGS -- BIN:[id number], PCN: ASPROD1, Group: XXXXX, ID# [id number], Questions: . THIS IS NOT INSURANCE.] olanzapine 2.5 mg ta blet RxNorm: 026623 TAKE ONE TABLET BY MO [facility] ONCE DAILY 05/25/2015 11/20/2015 In active olanzapine 2.5 mg ta blet RxNorm: 744391 1 Tablet(s) daily PATRIZIA E ONE TABLET BY MOUTH EVERY DAY 02/27/2015 05/24/2015 Inactive [SAVINGS FOR NON-COVERED DR UGS -- BIN:[id number], PCN: ASPROD1, Group: XXXXX, ID# [id number], Questions: . THIS IS NOT INSURANCE.] fluoxetine 20 mg cap kameron RxNorm: 108131 Capsule(s) TAKE ONE C APSULE BY MOUTH EVERY DAY 02/27/2015 08/23/2015 Inactive prednisone 20 mg tablet RxNorm: 227358 1 Tablet(s) PO BID 01/16/2015 01/18/2015 Inactive prednisone 20 mg tablet RxNorm: 330448 1 Tablet(s) PO BID 01/16/2015 01/15/2015 Inactive Zithromax Z-Yan 250 mg tablet RxNorm: 978510 1 Tablet(s) PO as doc tor directed 01/16/2015 07/28/2016 In active zpack as directed olanzapine 2.5 mg ta blet RxNorm: 053173 1 Tablet(s) daily PATRIZIA E ONE TABLET BY MOUTH EVERY DAY 11/24/2014 02/21/2015 Inactive [SAVINGS FOR NON-COVERED DR UGS -- BIN:[id number], PCN: ASPROD1, Group: XXXXX, ID# [id number], Questions: . THIS IS NOT INSURANCE.] lovastatin 20 mg tablet RxNorm: 769200 1 Tablet(s) PO QHS TAKE ONE TABLET BY [facility] AT BEDTIME 10/26/2014 05/23/2015 Inactive [SAVINGS FOR NON-COVERED DR UGS -- BIN:[id number], PCN: ASPROD1, Group: XXXXX, ID# [id number], Questions: . THIS IS NOT INSURANCE.] Synthroid 75 mcg tablet RxNorm: 153813 1 Tablet(s) PO daily TAKE ONE TABLET BY MOUTH EVERY DAY 09/19/2014 12/17/2014 Inactive Synthroid 75 mcg tablet RxNorm: 224075 Tablet(s) TAKE ONE TABLET BY MOUTH EVERY DAY 09/19/2014 09/13/2015 Inactive [SAVINGS FOR NON-COVERED DRUGS -- BIN:00 3585, PCN: ASPROD1, Group: XXXXX, ID# [id number], Questions: . THIS IS NOT INSURANCE.] fluoxetine 20 mg cap kameron RxNorm: 314957 TAKE ONE CAPSULE BY M OUTH EVERY DAY 08/04/2014 01/30/2015 In active fluoxetine 20 mg cap kameron RxNorm: 167953 1 Capsule(s) PO daily TAKE ONE CAPSULE BY MOUTH EVERY DAY 08/02/2014 08/03/2014 Inactive [SAVINGS FOR UNINSURED ERNIE ENTS -- BIN:[id number], PCN: ASPROD1, Group: [id number], ID# [id number], Process claim through [employer], for questions: . THIS IS NOT INSURANCE.] lovastatin 20 mg tablet RxNorm: 595490 TAKE ONE TABLET BY MOUTH AT BEDTIME 07/25/2014 10/22/2014 In active olanzapine 2.5 mg ta blet RxNorm: 247106 Tablet(s) TAKE ONE TA BLET BY MOUTH EVERY DAY 07/19/2014 07/18/2014 Inactive olanzapine 2.5 mg ta blet RxNorm: 097888 TAKE ONE TABLET BY MO UTH EVERY DAY 07/19/2014 10/16/2014 In active Synthroid 75 mcg tablet RxNorm: 750855 1 Tablet(s) PO daily TAKE ONE TABLET BY MOUTH EVERY DAY 06/20/2014 06/19/2014 Inactive Synthroid 75 mcg tablet RxNorm: 080675 TAKE ONE TABLET BY MOUTH EVERY DAY 06/20/2014 09/18/2014 In active lovastatin 20 mg tablet RxNorm: 710660 TAKE ONE TABLET BY MOUTH AT BEDTIME 04/22/2014 07/20/2014 In active olanzapine 2.5 mg ta blet RxNorm: 452357 TAKE ONE TABLET BY MO UTH EVERY DAY 04/21/2014 07/18/2014 In active Synthroid 75 mcg tablet RxNorm: 959043 TAKE ONE TABLET BY MOUTH EVERY DAY 03/22/2014 06/19/2014 In active fluoxetine 20 mg cap kameron RxNorm: 235034 TAKE ONE CAPSULE BY M OUTH EVERY DAY 02/02/2014 07/31/2014 In active lovastatin 20 mg tablet RxNorm: 886541 TAKE ONE TABLET BY MOUTH AT BEDTIME 01/20/2014 04/19/2014 In active olanzapine 2.5 mg ta blet RxNorm: 944418 TAKE ONE TABLET BY MO UTH EVERY DAY 01/14/2014 04/13/2014 In active amoxicillin 500 mg t ablet RxNorm: 145772 1 Tablet(s) PO TID 01/10/2014 01/16/2014 Inactive Rocephin 500 mg solu tion for injection RxNorm: 969695 Inj 01/1001/10/2014 Inactive Synthroid 75 mcg tablet RxNorm: 407982 Tablet(s) PO TAKE ONE TABLET BY MOUTH EV FERCHO DAY 12/27/2013 03/21/2014 Inactive lovastatin 20 mg tablet RxNorm: 648588 Tablet(s) PO TAKE ONE TABLET BY MOUTH AT BEDTIME 12/20/2013 01/19/2014 Inactive olanzapine 2.5 mg ta blet RxNorm: 089725 Tablet(s) PO TAKE ONE TABLET BY MOUTH EVERY DAY 12/17/2013 01/13/2014 Inactive Synthroid 75 mcg tablet RxNorm: 276344 Tablet(s) PO TAKE ONE TABLET BY MOUTH EV FERCHO DAY 11/22/2013 12/26/2013 Inactive lovastatin 20 mg tablet RxNorm: 469079 Tablet(s) PO TAKE ONE TABLET BY MOUTH AT BEDTIME 11/15/2013 12/19/2013 Inactive olanzapine 2.5 mg ta blet RxNorm: 149877 Tablet(s) PO TAKE ONE TABLET BY MOUTH EVERY DAY 11/15/2013 12/16/2013 Inactive Synthroid 75 mcg tablet RxNorm: 829844 Tablet(s) PO TAKE ONE TABLET BY MOUTH EV FERCHO DAY 10/25/2013 11/21/2013 Inactive lovastatin 20 mg tablet RxNorm: 103992 Tablet(s) PO TAKE ONE TABLET BY MOUTH AT BEDTIME 10/18/2013 11/14/2013 Inactive Zithromax 250 mg tablet RxNorm: 926446 Tablet(s) PO 08/30/2013 07/26/2014 Inactive zpac k as directed Synthroid 75 mcg tablet RxNorm: 511747 Tablet(s) PO TAKE ONE TABLET BY MOUTH EV FERCHO DAY 05/24/2013 10/24/2013 Inactive lovastatin 20 mg tablet RxNorm: 003179 Tablet(s) PO TAKE ONE TABLET BY MOUTH AT BEDTIME 04/19/2013 10/17/2013 Inactive olanzapine 2.5 mg ta blet RxNorm: 158869 1 Tablet(s) PO 02/04/2013 09/01/2013 Inactive fluoxetine 20 mg cap kameron RxNorm: 235541 Capsule(s) PO TAKE ON E CAPSULE BY MOUTH EVERY DAY 01/08/2013 02/01/2014 Inactive olanzapine 5 mg tablet RxNorm: 642164 1/2 Tablet(s) PO daily zyprexa 12/31/2012 02/03/2013 In active Synthroid 75 mcg tablet RxNorm: 992135 1 Tablet(s) PO daily 09/29/2012 03/27/2013 Inactive Vitamin D2 50,000 un it capsule RxNorm: 454260 1 Capsule(s) PO QW 09/29/2012 09/16/2016 Inactive one weekly x 8 weeks then 1000units dorcas y thereafter Synthroid 75 mcg tablet RxNorm: 474245 1 Tablet(s) PO daily 09/29/2012 09/28/2012 Inactive lovastatin 20 mg tablet RxNorm: 942615 Tablet(s) PO TAKE ONE TABLET BY MOUTH AT BEDTIME 09/21/2012 04/18/2013 Inactive fluoxetine 20 mg cap kameron RxNorm: 690365 1 Capsule(s) PO daily TAKE ONE CAPSULE BY MOUTH EVERY DAY 09/16/2012 01/07/2013 Inactive Synthroid 50 mcg tablet RxNorm: 761180 1 Tablet(s) PO daily 09/14/2012 12/31/2012 Inactive brand name only fluoxetine 20 mg cap kameron RxNorm: 978261 Capsule(s) PO TAKE ON E CAPSULE BY MOUTH EVERY DAY 09/07/2012 09/15/2012 Inactive Synthroid 50 mcg tablet RxNorm: 188958 1 Tablet(s) PO daily 09/07/2012 09/13/2012 Inactive brand name only niacin ER 500 mg tab let,extended release RxNorm: 183333 2 Tablet(s) PO daily 09/03/2012 10/12/2017 In active lovastatin 20 mg tablet RxNorm: 020658 1 Tablet(s) PO QHS TAKE ONE TABLET BY MO UTH AT BEDTIME 08/26/2012 09/20/2012 Inactive Zithromax Z-Yan 250 mg tablet RxNorm: 932124 Tablet(s) PO UD 08/13/2012 12/31/2012 Inactive fluoxetine 20 mg cap kameron RxNorm: 465124 Capsule(s) PO 05/11/2012 09/06/2012 Inactive TAKE ONE CAPSULE BY MOUTH EVERY DAY fluoxetine 20 mg cap kameron RxNorm: 470484 1 Capsule(s) PO daily 01/06/2012 05/04/2012 Inactive Zyprexa 5 mg Tab RxNorm: 238758 Tablet(s) PO 01/06/2012 12/31/2012 Inactive TAKE ONE TABLET BY MOUTH EVERY DAY lovastatin 20 mg tablet RxNorm: 251204 Tablet(s) PO 12/24/2011 08/26/2012 Inactive TAKE ONE TABLET BY MOUTH AT BEDTIME Rocephin 500 mg Solu tion for Injection RxNorm: 3609933 Inj 01/201112/31/2012 Inactive Keppra 500 mg tablet RxNorm: 517104 1 Tablet(s) PO BID No Start Date Active omeprazole 20 mg Cap , Delayed Release RxNorm: 539210 1 Capsule(s) PO BID No Start Date Active oxycodone-acetaminop hen 5 mg-325 mg Tab RxNorm: 8413021 1 Tablet(s) PO Q4 OK N No Start Date Active acyclovir 800 mg tablet RxNorm: 531637 1 Tablet(s) PO daily No Start Date Active letrozole 2.5 mg Tab RxNorm: 529475 1 Tablet(s) PO daily No Start Date Active multivitamin Cap RxNorm: 1 Capsule(s) PO daily No Start Date Active Aspirin Low Dose 81 mg tablet,delayed release RxNorm: 891052 1 Tablet(s) PO daily No Start Date Active Calcium 600 + D(3) 6 00 mg (1,500)-200 unit Tab RxNorm: 929019 1 Tablet(s) PO daily No Start Date Active Vitamin B-12 1,000 m cg tablet RxNorm: 199329 1 Tablet(s) PO daily No Start Date Active ferrous sulfate 325 mg (65 mg iron) tablet RxNorm: 172013 1 Tablet(s) PO daily No Start Date Active KCL 20 meq RxNorm: 1 PO daily No Start Date 10/12/2017 Inactive Zyprexa 5 mg Tab RxNorm: 959255 1 Tablet(s) PO daily No Start Date 01/05/2012 Inactive Zithromax Z-Yan 250 mg tablet RxNorm: 816103 Tablet(s) PO UD No Start Date 08/12/2012 Inactive Zithromax Z-Yan 250 mg tablet RxNorm: 871123 1 Tablet(s) PO UD No Start Date 04/28/2017 Inactive z pack as directed niacin ER 500 mg tab let,extended release RxNorm: 9485185 1 Tablet(s) PO daily No Start Date 09/02/2012 Inactive Vitamin D2 50,000 un it capsule RxNorm: 7088482 1 Capsule(s) PO QW No Start Date 09/28/2012 Inactive one weekly x 8 weeks then 1000units dorcas y thereafter Synthroid 50 mcg tablet RxNorm: 474400 1 Tablet(s) PO daily No Start Date 09/06/2012 Inactive brand name only acyclovir 400 mg Tab RxNorm: 836426 1 Tablet(s) PO BID No Start Date 09/15/2012 Inactive Zithromax Z-Yan 250 mg tablet RxNorm: 045854 1 Tablet(s) PO as doc tor directed No Start Date 01/15/2015 Inactive zpack as directed metoprolol tartrate 25 mg tablet RxNorm: 461479 1/2 Tablet(s) PO BID No Start Date 05/06/2018 Inactive fluoxetine 20 mg Tab RxNorm: 950881 1 Tablet(s) PO daily No Start Date 07/26/2014 Inactive REVLIMID 10 mg Cap RxNorm: 731744 1 Capsule(s) PO daily No Start Date 12/31/2012 Inactive lovastatin 20 mg Tab RxNorm: 032805 1 Tablet(s) PO QHS No Start Date 12/23/2011 Inactive aspirin 81 mg Cap, D elayed Release RxNorm: 618491 1 Capsule(s) PO daily No Start Date 12/30/2012 Inactive olanzapine 5 mg tablet RxNorm: 537482 1 Tablet(s) PO daily zyprexa No Start Date 12/30/2012 Inactive Zithromax 250 mg tablet RxNorm: 052963 Tablet(s) PO No Start Date 08/29/2013 Inactive zpac k as directed levofloxacin 500 mg Tab RxNorm: 935746 1 Tablet(s) PO daily No Start Date 06/26/2011 Inactive levothyroxine 50 mcg Tab RxNorm: 328476 1 Tablet(s) PO daily No Start Date 12/31/2012 Inactive dexamethasone 4 mg Tab RxNorm: 612376 2 Tablet(s) PO weekly No Start Date 12/31/2012 Inactive Medication Administered Medication Codes Instruc tions Start Date Status Kenalog 40 mg/mL suspension for injection RxNorm: 1449867 Milliliter 12/20/2016 No longer Active ceftriaxone 500 mg solution for injection RxNorm: 4524338 1Milliliter 12/17/2016 N o longer Active Kenalog 40 mg/mL suspension for injection RxNorm: 0903161 1Milliliter 12/17/2016 N o longer Active Rocephin 500 mg solution for injection RxNorm: 202186 01/10/2014 No longer A ctive Immunizations Vaccine Codes Date Status Influenza CVX: 141 05/26 completed Pneumococcal (Adult) CVX: 33 07/26/2014 completed Assessments Condition Codes Effectiv e Dates Essential (primary) hypertension ICD -10: I10 ICD-9: 401.1 06/30/2018 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 2 ICD-9: 427.1 10/13/2017 Other hypotension ICD-10: I95.89 ICD-9: 458.8 10/13/2017 Open bite of left upper arm, initial encounter ICD-10: S41.152A ICD-9: 880.03 05/27/2017 Mixed hyperlipidemia ICD-10: E78.2 ICD-9: 272.2 03/18/2017 Atrophy of thyroid (acquired) ICD-10 : E03.4 ICD-9: 244.8 03/18/2017 Rash and other nonspecific skin eruption ICD-10: R21 ICD-9: 782.1 12/20/2016 Acute bronchitis, unspecified ICD-10 : J20.9 ICD-9: 466.0 12/17/2016 Cough ICD-10: R05 ICD-9: 786.2 12/17/2016 Mixed hyperlipidemia ICD-10: E78.2 ICD-9: 272.4 09/17/2016 Generalized anxiety disorder ICD-10: F41.1 ICD-9: 300.02 09/17/2016 Encounter for general adult medical exam ination without abnormal findings ICD-10: Z00.00 ICD-9: V70.0 12/11/2015 Blister (nonthermal), right great toe, initial encount er ICD- 10: S90.421A ICD-9: 917.2 10/06/2015 Hypothyroidism, unspecified ICD-10: E03.9 ICD-9: 244.9 09/21/2015 Elevated blood-pressure reading, without diagnosis of hypertension ICD-10: R03.0 ICD-9: 796.2 09/21/2015 HYPOTHYROIDISM ICD-9: 244.9 07/26/2014 Need for pneumococcal vaccine ICD-9: V03.8 2 07/26/2014 HYPERLIPIDEMIA ICD-9: 272.4 07/26/2014 DEPRESSIVE DISORDER NEC ICD-9: 311 01/25/2014 ACUTE PHARYNGITIS ICD-9: 462 01/10/2014 Ear pain ICD-9: 388.70 0 09/23/2013 GENERALIZED ANXIETY DISEASE ICD-9: 300.02 09/23/2013 Encounter for long-term (current) use of other medicat ions ICD-9: V58.69 09/09/2013 BACTERIAL PNEUMONIA ICD-9: 482.9 09/09/2013 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 06/03/2013 ESOPHAGEAL REFLUX ICD-9: 530.81 06/03/2013 Renal insufficiency ICD-9: 593.9 10/01/2012 ACUTE MAXILLARY SINUSITIS ICD-9: 461.0 06/26/2011 Reason For Visit Reason For Visit Effective Dates Notes hypertension 06/30/2018 hypertension 03/03/2018 Hospital Follow Up 01/27/2018 Hospital Follow Up 10/13/2017 hypertension 08/07/2017 bite to the hand 05/27/2017 arm left hypertension 04/10/2017 hypothyroid 03/18/2017 rash 12/20/2016 cough 12/17/2016 hypothyroid 09/17/2016 Hospital Follow Up 05/20/2016 Annual Medicare Wellness Exam 12/11/2015 rash 10/06/2015 anxiety 09/21/2015 anxiety 07/26/2014 anxiety 01/25/2014 sore throat 01/10/2014 earache 09/23/2013 cough 09/09/2013 anxiety 06/03/2013 --Imp roved dyskinesia or tremor 02/04/2013 hyperlipidemia 12/31/2012 hyperlipidemia 10/01/2012 hyperlipidemia 09/03/2012 hypothyroid 06/26/2011 Results Observation Observation Code Item Item Code Result Date Free T4 [id number] FREE T4 1.06 ng/dL 11/18/2016 Tsh Ord6 hTSH II 2.23 uIU/mL 11/18/2016 Cbc With Differential Ord2 WBC 1.66 K/ul 10/22/2016 Cbc With Differential Ord2 RBC 3.98 M/ul 10/22/2016 Cbc With Differential Ord2 HGB 13.2 g/dl 10/22/2016 Cbc With Differential Ord2 HCT 38.7 % 10/22/2016 Cbc With Differential Ord2 Neut% 30.2 % 10/22/2016 Cbc With Differential Ord2 MCV 97.2 fl 10/22/2016 Cbc With Differential Ord2 Lymph% 30.7 % 10/22/2016 Cbc With Differential Ord2 MCH 33.2 pg 10/22/2016 Cbc With Differential Ord2 [place]% 36.7 % 10/22/2016 Cbc With Differential Ord2 MCHC 34.1 pg 10/22/2016 Cbc With Differential Ord2 Eos% 1.8 % 10/22/2016 Cbc With Differential Ord2 Baso% 0.6 % 10/22/2016 Cbc With Differential Ord2 PLT 222 K/ul 10/22/2016 Cbc With Differential Ord2 RDW 14.0 % 10/22/2016 Cbc With Differential Ord2 Neut ABS# 0.50 K/ul 10/22/2016 Cbc With Differential Ord2 Lymph ABS# 0.51 K/ul 10/22/2016 Cbc With Differential Ord2 [place] ABS# 0.6 K/ul 10/22/2016 Cbc With Differential Ord2 Eos ABS# 0.0 K/ul 10/22/2016 Cbc With Differential Ord2 Baso ABS# 0.0 K/ul 10/22/2016 Lipid Ord30 CHOL 99 mg/dL 10/22/2016 Lipid Ord30 HDL 38.0 mg/dl 10/22/2016 Lipid Ord30 TRIG 102 mg/dL 10/22/2016 Lipid Ord30 LDL 41 mg/dL 10/22/2016 Lipid Ord30 C/HDL 2.6 Ratio 10/22/2016 Comp Metabolic Qow183 NA 135 mEq/L 10/22/2016 Comp Metabolic Uju858 K 4.5 mEq/L 10/22/2016 Comp Metabolic Aju510 CL 102 mEq/L 10/22/2016 Comp Metabolic Ebs599 CO2 20.0 mEq/L 10/22/2016 Comp Metabolic Yur195 AN ION GAP 18 10/22/2016 Comp Metabolic Tmn494 GL UCOSE 108 mg/dL 10/22/2016 Comp Metabolic Bfn518 Cr eat 1.1 mg/dL 10/22/2016 Comp Metabolic Amg035 eG FR 53 ml/min/1.73m2 10/22 Comp Metabolic Oiy320 BUN 17 mg/dL 10/22/2016 Comp Metabolic Dim823 B/ C Ratio 15.7 Ratio 10/22/2016 Comp Metabolic Cnj733 CA LCIUM 8.9 mg/dL 10/22/2016 Comp Metabolic Zcf272 AL K PHOS 65 U/L 10/22/2016 Comp Metabolic Hnp339 T(SGOT) 14 U/L 10/22/2016 Comp Metabolic Oyt845 AL T(SGPT) 19 U/L 10/22/2016 Comp Metabolic Cul391 BI LI T 0.8 mg/dL 10/22/2016 Comp Metabolic Aje127 AL BUMIN 3.5 g/dL 10/22/2016 Comp Metabolic Xqh678 TP RO 7.0 g/dL 10/22/2016 Comp Metabolic Afv507 GL OB 3.5 g/dL 10/22/2016 Comp Metabolic Hjn513 A/ G Ratio 1.0 Ratio 10/22/2016 Comp Metabolic Kgv059 Os mo 272 mOsmo 10/22/2016 Manual Differential Ord52 D-Neutr 38 % 10/22/2016 Manual Differential Ord52 D-Bands 15 % 10/22/2016 Manual Differential Ord52 D-Lymph 37 % 10/22/2016 Manual Differential Ord52 D-Eos 4 % 10/22/2016 Manual Differential Ord52 D-[place] 3 % 10/22/2016 Manual Differential Ord52 D-Aty Lymp 3 % 10/22/2016 Free T4 Sej562 FREE T4 1.38 ng/dL 10/22/2016 Tsh Ord6 hTSH II 2.05 uIU/mL 10/22/2016 Free T4 Rcq232 FREE T4 0.85 ng/dL 05/20/2016 Tsh Ord6 hTSH II 0.63 uIU/mL 05/20/2016 CHEM 14 20280123 AST 16 U/L 09/09/2013 CHEM 14 20280123 ALT 20 IU/L 09/09/2013 CHEM 14 20280123 BUN 17 MG/DL 09/09/2013 CHEM 14 0909750 ALBUMIN 3.6 GM/DL 09/09/2013 CHEM 14 8315897 CHLORIDE 102 MMOL/L 09/09/2013 CHEM 14 7641994 BILI TOT 0.3 MG/DL 09/09/2013 CHEM 14 4889482 ALK PHOS 88 U/L 09/09/2013 CHEM 14 1091302 SODIUM 138 MMOL/L 09/09/2013 CHEM 14 9024418 CREATINI NE 1.10 MG/DL 09/09/2013 CHEM 14 7478429 CALCIUM 9.0 MG/DL 09/09/2013 CHEM 14 3908973 POTASSIUM 4.8 MMOL/L 09/09/2013 CHEM 14 4469195 PROT TOT 6.7 GM/DL 09/09/2013 CHEM 14 0581027 GLUCOSE 113 MG/DL 09/09/2013 CHEM 14 0225254 BICARB 27 MMOL/L 09/09/2013 CHEM 14 7819409 ANION GAP 9 MEQ/L 09/09/2013 GFR CALC 9723751 GFR AA 60.0L ML/MIN 09/09/2013 GFR CALC 9427528 GFR NON -AA 50.0L ML/MIN 4 Review of Systems System Result Effective Dates Constitutional No recent illness 06/30/2018 Constitutional No chills 06/30/2018 Constitutional No fatigue 06/30/2018 Constitutional No fever 06/30/2018 Constitutional No insomnia 06/30/2018 Constitutional No malaise 06/30/2018 Eyes No blindness 2017 Eyes No vision change Ears/Nose/Throat/Neck No dental pain 06/30/2018 Ears/Nose/Throat/Neck No dizziness 06/30/2018 Ears/Nose/Throat/Neck No dysphagia 06/30/2018 Ears/Nose/Throat/Neck No headache 06/30/2018 Ears/Nose/Throat/Neck No hearing loss 06/30/2018 Ears/Nose/Throat/Neck No nasal allergies 06/30/2018 Ears/Nose/Throat/Neck No sore throat 06/30/2018 Ears/Nose/Throat/Neck No postnasal drip 06/30/2018 Ears/Nose/Throat/Neck No sinus congestion 06/30/2018 Cardiovascular No chest pain/pressure 06/30/2018 Cardiovascular No dyspnea 06/30/2018 Respiratory No chest congestion 06/30/2018 Respiratory No chest tightness 06/30/2018 Respiratory No cigarette smoking 06/30/2018 Respiratory No cough 05/2018 Respiratory No pedal edema 06/30/2018 Respiratory No snoring 1 08/31/2017 Respiratory No wheezing 06/30/2018 Gastrointestinal No abdominal pain 06/30/2018 Gastrointestinal No constipation 06/30/2018 Gastrointestinal No diarrhea 06/30/2018 Gastrointestinal No nausea 06/30/2018 Genitourinary/Nephrology No dysuria 06/30/2018 Musculoskeletal No stiffness 06/30/2018 Musculoskeletal No swelling 06/30/2018 Musculoskeletal No muscle weakness 06/30/2018 Dermatologic No rash 05/2018 Dermatologic No sores Neurologic No dizziness 06/30/2018 Neurologic No headache 1 08/31/2017 Neurologic No neck pain 06/30/2018 Neurologic No syncope Psychiatric anxiety 06/20 Constitutional No recent illness 03/03/2018 Constitutional No chills 03/03/2018 Constitutional fatigue 0 03/03/2018 Constitutional No fever 03/03/2018 Constitutional No insomnia 03/03/2018 Constitutional No malaise 03/03/2018 Eyes No blindness 2017 Eyes No vision change Ears/Nose/Throat/Neck No dental pain 03/03/2018 Ears/Nose/Throat/Neck No dizziness 03/03/2018 Ears/Nose/Throat/Neck No dysphagia 03/03/2018 Ears/Nose/Throat/Neck No headache 03/03/2018 Ears/Nose/Throat/Neck No hearing loss 03/03/2018 Ears/Nose/Throat/Neck No nasal allergies 03/03/2018 Ears/Nose/Throat/Neck No sore throat 03/03/2018 Ears/Nose/Throat/Neck No postnasal drip 03/03/2018 Ears/Nose/Throat/Neck No sinus congestion 03/03/2018 Cardiovascular No chest pain/pressure 03/03/2018 Cardiovascular No dyspnea 03/03/2018 Respiratory No chest congestion 03/03/2018 Respiratory No chest tightness 03/03/2018 Respiratory No cigarette smoking 03/03/2018 Respiratory No cough Respiratory No pedal edema 03/03/2018 Respiratory No snoring 0 03/03/2018 Respiratory No wheezing 03/03/2018 Gastrointestinal No abdominal pain 03/03/2018 Gastrointestinal No constipation 03/03/2018 Gastrointestinal No diarrhea 03/03/2018 Gastrointestinal gastroesophageal reflux 03/03/2018 Gastrointestinal No nausea 03/03/2018 Genitourinary/Nephrology No dysuria 03/03/2018 Musculoskeletal No stiffness 03/03/2018 Musculoskeletal No swelling 03/03/2018 Musculoskeletal No muscle weakness 03/03/2018 Dermatologic No rash Dermatologic No sores Neurologic No dizziness 03/03/2018 Neurologic No headache 0 03/03/2018 Neurologic No neck pain 03/03/2018 Neurologic No syncope Psychiatric anxiety 02/18 Psychiatric depression 0 03/03/2018 Constitutional recent illness 01/27/2018 Constitutional No chills 01/27/2018 Constitutional fatigue 0 01/27/2018 Constitutional No fever 01/27/2018 Constitutional No insomnia 01/27/2018 Constitutional No malaise 01/27/2018 Eyes No blindness 2017 Eyes No vision change Ears/Nose/Throat/Neck No dental pain 01/27/2018 Ears/Nose/Throat/Neck No dizziness 01/27/2018 Ears/Nose/Throat/Neck No dysphagia 01/27/2018 Ears/Nose/Throat/Neck No headache 01/27/2018 Ears/Nose/Throat/Neck No hearing loss 01/27/2018 Ears/Nose/Throat/Neck No nasal allergies 01/27/2018 Ears/Nose/Throat/Neck No sore throat 01/27/2018 Ears/Nose/Throat/Neck No postnasal drip 01/27/2018 Ears/Nose/Throat/Neck No sinus congestion 01/27/2018 Cardiovascular No chest pain/pressure 01/27/2018 Cardiovascular No dyspnea 01/27/2018 Respiratory No chest congestion 01/27/2018 Respiratory No chest tightness 01/27/2018 Respiratory No cigarette smoking 01/27/2018 Respiratory No cough 04/2018 Respiratory No pedal edema 01/27/2018 Respiratory No snoring 0 01/27/2018 Respiratory No wheezing 01/27/2018 Gastrointestinal No abdominal pain 01/27/2018 Gastrointestinal No constipation 01/27/2018 Gastrointestinal No diarrhea 01/27/2018 Gastrointestinal gastroesophageal reflux 01/27/2018 Gastrointestinal No nausea 01/27/2018 Genitourinary/Nephrology No dysuria 01/27/2018 Musculoskeletal No stiffness 01/27/2018 Musculoskeletal No swelling 01/27/2018 Musculoskeletal No muscle weakness 01/27/2018 Dermatologic No rash 04/2018 Dermatologic No sores Neurologic No dizziness 01/27/2018 Neurologic No headache 0 01/27/2018 Neurologic No neck pain 01/27/2018 Neurologic No syncope Psychiatric anxiety 01/18 Psychiatric depression 0 01/27/2018 Neurologic seizure 01/27 Constitutional No recent illness 10/13/2017 Constitutional No chills 10/13/2017 Constitutional fatigue 0 10/13/2017 Constitutional No fever 10/13/2017 Constitutional No insomnia 10/13/2017 Constitutional No malaise 10/13/2017 Eyes No blindness 2017 Eyes No vision change Ears/Nose/Throat/Neck No dental pain 10/13/2017 Ears/Nose/Throat/Neck No dizziness 10/13/2017 Ears/Nose/Throat/Neck No dysphagia 10/13/2017 Ears/Nose/Throat/Neck No headache 10/13/2017 Ears/Nose/Throat/Neck No hearing loss 10/13/2017 Ears/Nose/Throat/Neck No nasal allergies 10/13/2017 Ears/Nose/Throat/Neck No sore throat 10/13/2017 Ears/Nose/Throat/Neck No postnasal drip 10/13/2017 Ears/Nose/Throat/Neck No sinus congestion 10/13/2017 Cardiovascular No chest pain/pressure 10/13/2017 Cardiovascular No dyspnea 10/13/2017 Respiratory No chest congestion 10/13/2017 Respiratory No chest tightness 10/13/2017 Respiratory No cigarette smoking 10/13/2017 Respiratory No cough Respiratory No pedal edema 10/13/2017 Respiratory No snoring 0 10/13/2017 Respiratory No wheezing 10/13/2017 Gastrointestinal No abdominal pain 10/13/2017 Gastrointestinal No constipation 10/13/2017 Gastrointestinal No diarrhea 10/13/2017 Gastrointestinal gastroesophageal reflux 10/13/2017 Gastrointestinal No nausea 10/13/2017 Genitourinary/Nephrology No dysuria 10/13/2017 Musculoskeletal No stiffness 10/13/2017 Musculoskeletal No swelling 10/13/2017 Musculoskeletal No muscle weakness 10/13/2017 Dermatologic No rash Dermatologic No sores Neurologic No dizziness 10/13/2017 Neurologic No headache 0 10/13/2017 Neurologic No neck pain 10/13/2017 Neurologic No syncope Psychiatric anxiety 09/19 Psychiatric depression 0 10/13/2017 Constitutional No recent illness 08/07/2017 Constitutional No chills 08/07/2017 Constitutional fatigue 0 08/07/2017 Constitutional No fever 08/07/2017 Constitutional No insomnia 08/07/2017 Constitutional No malaise 08/07/2017 Eyes No blindness 2017 Eyes No vision change Ears/Nose/Throat/Neck No dental pain 08/07/2017 Ears/Nose/Throat/Neck No dizziness 08/07/2017 Ears/Nose/Throat/Neck No dysphagia 08/07/2017 Ears/Nose/Throat/Neck No headache 08/07/2017 Ears/Nose/Throat/Neck No hearing loss 08/07/2017 Ears/Nose/Throat/Neck No nasal allergies 08/07/2017 Ears/Nose/Throat/Neck No sore throat 08/07/2017 Ears/Nose/Throat/Neck No postnasal drip 08/07/2017 Ears/Nose/Throat/Neck No sinus congestion 08/07/2017 Cardiovascular No chest pain/pressure 08/07/2017 Cardiovascular No dyspnea 08/07/2017 Respiratory No chest congestion 08/07/2017 Respiratory No chest tightness 08/07/2017 Respiratory No cigarette smoking 08/07/2017 Respiratory No cough Respiratory No pedal edema 08/07/2017 Respiratory No snoring 0 08/07/2017 Respiratory No wheezing 08/07/2017 Gastrointestinal No abdominal pain 08/07/2017 Gastrointestinal No constipation 08/07/2017 Gastrointestinal No diarrhea 08/07/2017 Gastrointestinal gastroesophageal reflux 08/07/2017 Genitourinary/Nephrology No dysuria 08/07/2017 Musculoskeletal No stiffness 08/07/2017 Musculoskeletal No swelling 08/07/2017 Musculoskeletal No muscle weakness 08/07/2017 Dermatologic No rash Dermatologic No sores Neurologic No dizziness 08/07/2017 Neurologic No headache 0 08/07/2017 Neurologic No neck pain 08/07/2017 Neurologic No syncope Psychiatric anxiety 07/21 Psychiatric depression 0 08/07/2017 Gastrointestinal No nausea 08/07/2017 Constitutional recent illness 05/27/2017 Constitutional No night sweats 05/27/2017 Constitutional No chills 05/27/2017 Constitutional No fatigue 05/27/2017 Constitutional No fever 05/27/2017 Constitutional No malaise 05/27/2017 Cardiovascular No chest pain/pressure 05/27/2017 Cardiovascular No dyspnea 05/27/2017 Cardiovascular No edema 05/27/2017 Respiratory No asthma Respiratory No cough 01/2017 Dermatologic sores 05/27 Constitutional No recent illness 04/10/2017 Constitutional No chills 04/10/2017 Constitutional fatigue 0 04/10/2017 Constitutional No fever 04/10/2017 Constitutional No insomnia 04/10/2017 Constitutional No malaise 04/10/2017 Eyes No blindness 2016 Eyes No vision change Ears/Nose/Throat/Neck No dental pain 04/10/2017 Ears/Nose/Throat/Neck No dizziness 04/10/2017 Ears/Nose/Throat/Neck No dysphagia 04/10/2017 Ears/Nose/Throat/Neck No headache 04/10/2017 Ears/Nose/Throat/Neck No hearing loss 04/10/2017 Ears/Nose/Throat/Neck No nasal allergies 04/10/2017 Ears/Nose/Throat/Neck No sore throat 04/10/2017 Ears/Nose/Throat/Neck No postnasal drip 04/10/2017 Ears/Nose/Throat/Neck No sinus congestion 04/10/2017 Cardiovascular No chest pain/pressure 04/10/2017 Cardiovascular No dyspnea 04/10/2017 Respiratory No chest congestion 04/10/2017 Respiratory No chest tightness 04/10/2017 Respiratory No cigarette smoking 04/10/2017 Respiratory No cough Respiratory No pedal edema 04/10/2017 Respiratory No snoring 0 04/10/2017 Respiratory No wheezing 04/10/2017 Gastrointestinal No hemorrhoids 04/10/2017 Gastrointestinal No abdominal pain 04/10/2017 Gastrointestinal No constipation 04/10/2017 Gastrointestinal No diarrhea 04/10/2017 Gastrointestinal gastroesophageal reflux 04/10/2017 Gastrointestinal No melena 04/10/2017 Gastrointestinal No nausea 04/10/2017 Gastrointestinal No vomiting 04/10/2017 Genitourinary/Nephrology No dysuria 04/10/2017 Musculoskeletal No stiffness 04/10/2017 Musculoskeletal No swelling 04/10/2017 Musculoskeletal back pain 04/10/2017 Musculoskeletal No muscle weakness 04/10/2017 Musculoskeletal No myalgias 04/10/2017 Dermatologic No rash Dermatologic No sores Neurologic No dizziness 04/10/2017 Neurologic No headache 0 04/10/2017 Neurologic No neck pain 04/10/2017 Neurologic No syncope Psychiatric anxiety 03/22 Psychiatric depression 0 04/10/2017 Constitutional recent illness 03/18/2017 Constitutional No anorexia 03/18/2017 Constitutional No night sweats 03/18/2017 Constitutional No chills 03/18/2017 Constitutional No diaphoresis 03/18/2017 Constitutional fatigue 0 03/18/2017 Constitutional No fever 03/18/2017 Constitutional No insomnia 03/18/2017 Constitutional No malaise 03/18/2017 Constitutional weight loss 03/18/2017 Eyes No vision change Ears/Nose/Throat/Neck No headache 03/18/2017 Ears/Nose/Throat/Neck No nasal allergies 03/18/2017 Ears/Nose/Throat/Neck nasal discharge 03/18/2017 Ears/Nose/Throat/Neck No sore throat 03/18/2017 Ears/Nose/Throat/Neck No otalgia 03/18/2017 Ears/Nose/Throat/Neck No otitis media 03/18/2017 Ears/Nose/Throat/Neck sinus congestion 03/18/2017 Cardiovascular No chest pain/pressure 03/18/2017 Cardiovascular No dyspnea 03/18/2017 Respiratory No productive sputum 03/18/2017 Respiratory No chest congestion 03/18/2017 Respiratory No chest tightness 03/18/2017 Respiratory No cough Respiratory No dyspnea on exertion 03/18/2017 Respiratory No dyspnea 0 03/18/2017 Gastrointestinal No constipation 03/18/2017 Gastrointestinal No diarrhea 03/18/2017 Genitourinary/Nephrology No dysuria 03/18/2017 Musculoskeletal No joint complaint 03/18/2017 Musculoskeletal No muscle weakness 03/18/2017 Musculoskeletal No myalgias 03/18/2017 Psychiatric No anxiety 0 03/18/2017 Psychiatric depression 0 03/18/2017 Cardiovascular hypertension 03/18/2017 Constitutional recent illness 12/17/2016 Constitutional No anorexia 12/17/2016 Constitutional No chills 12/17/2016 Constitutional No diaphoresis 12/17/2016 Constitutional No night sweats 12/17/2016 Constitutional No fatigue 12/17/2016 Constitutional No fever 12/17/2016 Constitutional No insomnia 12/17/2016 Constitutional No malaise 12/17/2016 Constitutional No weight loss 12/17/2016 Constitutional No weight gain 12/17/2016 Eyes No eye discharge Eyes No eye erythema Ears/Nose/Throat/Neck No dizziness 12/17/2016 Ears/Nose/Throat/Neck No nasal allergies 12/17/2016 Ears/Nose/Throat/Neck nasal discharge 12/17/2016 Ears/Nose/Throat/Neck No otalgia 12/17/2016 Ears/Nose/Throat/Neck sinus congestion 12/17/2016 Ears/Nose/Throat/Neck sore throat 12/17/2016 Cardiovascular No chest pain/pressure 12/17/2016 Cardiovascular No dyspnea 12/17/2016 Cardiovascular No edema 12/17/2016 Respiratory productive sputum 12/17/2016 Respiratory cough 2016 Respiratory chest congestion 12/17/2016 Gastrointestinal No abdominal pain 12/17/2016 Genitourinary/Nephrology No dysuria 12/17/2016 Musculoskeletal No joint complaint 12/17/2016 Dermatologic No rash Neurologic No alteration of consciousness 12/17/2016 Constitutional No recent illness 09/17/2016 Constitutional No chills 09/17/2016 Constitutional fatigue 0 09/17/2016 Constitutional No fever 09/17/2016 Constitutional No insomnia 09/17/2016 Constitutional No malaise 09/17/2016 Eyes No blindness 2016 Eyes No vision change Ears/Nose/Throat/Neck No dental pain 09/17/2016 Ears/Nose/Throat/Neck No dizziness 09/17/2016 Ears/Nose/Throat/Neck No dysphagia 09/17/2016 Ears/Nose/Throat/Neck No headache 09/17/2016 Ears/Nose/Throat/Neck No hearing loss 09/17/2016 Ears/Nose/Throat/Neck No nasal allergies 09/17/2016 Ears/Nose/Throat/Neck No sore throat 09/17/2016 Ears/Nose/Throat/Neck No postnasal drip 09/17/2016 Ears/Nose/Throat/Neck No sinus congestion 09/17/2016 Cardiovascular No chest pain/pressure 09/17/2016 Cardiovascular No dyspnea 09/17/2016 Respiratory No chest congestion 09/17/2016 Respiratory No chest tightness 09/17/2016 Respiratory No cigarette smoking 09/17/2016 Respiratory No cough Respiratory No pedal edema 09/17/2016 Respiratory No snoring 0 09/17/2016 Respiratory No wheezing 09/17/2016 Gastrointestinal No hemorrhoids 09/17/2016 Gastrointestinal No abdominal pain 09/17/2016 Gastrointestinal No constipation 09/17/2016 Gastrointestinal No diarrhea 09/17/2016 Gastrointestinal gastroesophageal reflux 09/17/2016 Gastrointestinal No melena 09/17/2016 Gastrointestinal No nausea 09/17/2016 Gastrointestinal No vomiting 09/17/2016 Genitourinary/Nephrology No dysuria 09/17/2016 Musculoskeletal No stiffness 09/17/2016 Musculoskeletal No swelling 09/17/2016 Musculoskeletal back pain 09/17/2016 Musculoskeletal No muscle weakness 09/17/2016 Musculoskeletal No myalgias 09/17/2016 Dermatologic No rash Dermatologic No sores Neurologic No dizziness 09/17/2016 Neurologic No headache 0 09/17/2016 Neurologic No neck pain 09/17/2016 Neurologic No syncope Psychiatric anxiety 08/22 Psychiatric depression 0 09/17/2016 Constitutional recent illness 05/20/2016 Constitutional No anorexia 05/20/2016 Constitutional No night sweats 05/20/2016 Constitutional No chills 05/20/2016 Constitutional No diaphoresis 05/20/2016 Constitutional fatigue 1 Constitutional No fever 05/20/2016 Constitutional No insomnia 05/20/2016 Constitutional No malaise 05/20/2016 Constitutional weight loss 05/20/2016 Eyes No vision change Ears/Nose/Throat/Neck No headache 05/20/2016 Ears/Nose/Throat/Neck No nasal allergies 05/20/2016 Ears/Nose/Throat/Neck nasal discharge 05/20/2016 Ears/Nose/Throat/Neck No otalgia 05/20/2016 Ears/Nose/Throat/Neck No otitis media 05/20/2016 Ears/Nose/Throat/Neck sinus congestion 05/20/2016 Ears/Nose/Throat/Neck No sore throat 05/20/2016 Cardiovascular No chest pain/pressure 05/20/2016 Cardiovascular No dyspnea 05/20/2016 Respiratory No productive sputum 05/20/2016 Respiratory No chest congestion 05/20/2016 Respiratory No chest tightness 05/20/2016 Respiratory No cough Respiratory No dyspnea on exertion 05/20/2016 Respiratory No dyspnea 1 Gastrointestinal No constipation 05/20/2016 Gastrointestinal No diarrhea 05/20/2016 Genitourinary/Nephrology No dysuria 05/20/2016 Musculoskeletal No joint complaint 05/20/2016 Musculoskeletal No muscle weakness 05/20/2016 Musculoskeletal No myalgias 05/20/2016 Psychiatric No anxiety 1 Psychiatric depression 1 Constitutional No recent illness 12/11/2015 Constitutional No night sweats 12/11/2015 Constitutional No chills 12/11/2015 Constitutional No diaphoresis 12/11/2015 Constitutional No fatigue 12/11/2015 Constitutional No fever 12/11/2015 Constitutional No insomnia 12/11/2015 Constitutional No malaise 12/11/2015 Eyes No vision change Ears/Nose/Throat/Neck No headache 12/11/2015 Ears/Nose/Throat/Neck No nasal allergies 12/11/2015 Ears/Nose/Throat/Neck No nasal discharge 12/11/2015 Ears/Nose/Throat/Neck No otalgia 12/11/2015 Ears/Nose/Throat/Neck No sinus congestion 12/11/2015 Ears/Nose/Throat/Neck No sore throat 12/11/2015 Cardiovascular No chest pain/pressure 12/11/2015 Cardiovascular No dyspnea 12/11/2015 Respiratory No chest congestion 12/11/2015 Respiratory No dyspnea on exertion 12/11/2015 Respiratory No dyspnea 0 12/11/2015 Gastrointestinal No constipation 12/11/2015 Gastrointestinal No diarrhea 12/11/2015 Genitourinary/Nephrology No dysuria 12/11/2015 Musculoskeletal No joint complaint 12/11/2015 Musculoskeletal No muscle weakness 12/11/2015 Musculoskeletal No myalgias 12/11/2015 Dermatologic No rash Dermatologic No sores Psychiatric No anxiety 0 12/11/2015 Psychiatric depression 0 12/11/2015 Ears/Nose/Throat/Neck No postnasal drip 12/11/2015 Cardiovascular No edema 12/11/2015 Respiratory No productive sputum 12/11/2015 Respiratory No cough Neurologic No alteration of consciousness 12/11/2015 Constitutional No recent illness 10/06/2015 Constitutional No anorexia 10/06/2015 Constitutional No night sweats 10/06/2015 Constitutional No chills 10/06/2015 Constitutional No diaphoresis 10/06/2015 Constitutional No fatigue 10/06/2015 Constitutional No fever 10/06/2015 Constitutional No insomnia 10/06/2015 Constitutional No malaise 10/06/2015 Constitutional No weight loss 10/06/2015 Constitutional No weight gain 10/06/2015 Dermatologic sores 10/05 Constitutional No recent illness 09/21/2015 Constitutional No anorexia 09/21/2015 Constitutional No night sweats 09/21/2015 Constitutional No chills 09/21/2015 Constitutional No diaphoresis 09/21/2015 Constitutional No fatigue 09/21/2015 Constitutional No fever 09/21/2015 Constitutional No insomnia 09/21/2015 Constitutional No malaise 09/21/2015 Constitutional No weight loss 09/21/2015 Constitutional No weight gain 09/21/2015 Constitutional No obesity 09/21/2015 Eyes No vision change Ears/Nose/Throat/Neck nasal discharge 09/21/2015 Ears/Nose/Throat/Neck No nasal allergies 09/21/2015 Ears/Nose/Throat/Neck No headache 09/21/2015 Ears/Nose/Throat/Neck No otitis media 09/21/2015 Ears/Nose/Throat/Neck No otalgia 09/21/2015 Ears/Nose/Throat/Neck No sore throat 09/21/2015 Ears/Nose/Throat/Neck No sinus congestion 09/21/2015 Cardiovascular No chest pain/pressure 09/21/2015 Cardiovascular No dyspnea 09/21/2015 Respiratory cough 2015 Respiratory No chest tightness 09/21/2015 Respiratory No chest congestion 09/21/2015 Respiratory productive sputum 09/21/2015 Respiratory No dyspnea 0 09/21/2015 Respiratory No dyspnea on exertion 09/21/2015 Gastrointestinal No diarrhea 09/21/2015 Gastrointestinal No constipation 09/21/2015 Genitourinary/Nephrology No dysuria 09/21/2015 Musculoskeletal No muscle weakness 09/21/2015 Musculoskeletal No myalgias 09/21/2015 Musculoskeletal No joint complaint 09/21/2015 Dermatologic No sores Dermatologic No rash 09/2015 Psychiatric No anxiety 0 09/21/2015 Psychiatric depression 0 09/21/2015 Constitutional No recent illness 07/26/2014 Constitutional No insomnia 07/26/2014 Cardiovascular No chest pain/pressure 07/26/2014 Respiratory No cough 12/2014 Respiratory No cigarette smoking 07/26/2014 Respiratory No chest congestion 07/26/2014 Cardiovascular No dyspnea 07/26/2014 Gastrointestinal No constipation 07/26/2014 Gastrointestinal No diarrhea 07/26/2014 Gastrointestinal No vomiting 07/26/2014 Gastrointestinal No nausea 07/26/2014 Gastrointestinal No abdominal pain 07/26/2014 Genitourinary/Nephrology No dysuria 07/26/2014 Musculoskeletal back pain 07/26/2014 Constitutional No chills 07/26/2014 Constitutional fatigue 0 07/26/2014 Constitutional No fever 07/26/2014 Constitutional No malaise 07/26/2014 Eyes No blindness 2014 Eyes No vision change Ears/Nose/Throat/Neck No dental pain 07/26/2014 Ears/Nose/Throat/Neck No dizziness 07/26/2014 Ears/Nose/Throat/Neck No dysphagia 07/26/2014 Ears/Nose/Throat/Neck No headache 07/26/2014 Ears/Nose/Throat/Neck No hearing loss 07/26/2014 Ears/Nose/Throat/Neck No nasal allergies 07/26/2014 Ears/Nose/Throat/Neck No sore throat 07/26/2014 Ears/Nose/Throat/Neck No postnasal drip 07/26/2014 Ears/Nose/Throat/Neck No sinus congestion 07/26/2014 Respiratory No chest tightness 07/26/2014 Respiratory No pedal edema 07/26/2014 Respiratory No snoring 0 07/26/2014 Respiratory No wheezing 07/26/2014 Gastrointestinal No hemorrhoids 07/26/2014 Gastrointestinal gastroesophageal reflux 07/26/2014 Gastrointestinal No melena 07/26/2014 Musculoskeletal No stiffness 07/26/2014 Musculoskeletal No swelling 07/26/2014 Musculoskeletal No muscle weakness 07/26/2014 Musculoskeletal No myalgias 07/26/2014 Dermatologic No rash 12/2014 Dermatologic No sores Neurologic No dizziness 07/26/2014 Neurologic No headache 0 07/26/2014 Neurologic No neck pain 07/26/2014 Neurologic No syncope Psychiatric anxiety 01/0 12/2014 Psychiatric depression 0 07/26/2014 Hematologic/Lymphatic No petechiae 07/26/2014 Hematologic/Lymphatic No abnormal bl eeding and bruising 07/26/2014 Hematologic/Lymphatic No anemia 07/26/2014 Hematologic/Lymphatic No lymph node enlargement/mass 07/26/2014 Constitutional No recent illness 01/25/2014 Constitutional No chills 01/25/2014 Constitutional fatigue 0 01/25/2014 Constitutional No fever 01/25/2014 Constitutional No insomnia 01/25/2014 Constitutional No malaise 01/25/2014 Eyes No blindness 2013 Eyes No vision change Ears/Nose/Throat/Neck No dental pain 01/25/2014 Ears/Nose/Throat/Neck No dizziness 01/25/2014 Ears/Nose/Throat/Neck No dysphagia 01/25/2014 Ears/Nose/Throat/Neck No headache 01/25/2014 Ears/Nose/Throat/Neck No hearing loss 01/25/2014 Ears/Nose/Throat/Neck No nasal allergies 01/25/2014 Ears/Nose/Throat/Neck No sore throat 01/25/2014 Ears/Nose/Throat/Neck No postnasal drip 01/25/2014 Ears/Nose/Throat/Neck No sinus congestion 01/25/2014 Cardiovascular No chest pain/pressure 01/25/2014 Cardiovascular No dyspnea 01/25/2014 Respiratory No chest tightness 01/25/2014 Respiratory No cigarette smoking 01/25/2014 Respiratory No cough 02/2014 Respiratory No dyspnea 0 01/25/2014 Respiratory No pedal edema 01/25/2014 Respiratory No snoring 0 01/25/2014 Respiratory No wheezing 01/25/2014 Gastrointestinal No hemorrhoids 01/25/2014 Gastrointestinal No abdominal pain 01/25/2014 Gastrointestinal No constipation 01/25/2014 Gastrointestinal No diarrhea 01/25/2014 Gastrointestinal gastroesophageal reflux 01/25/2014 Gastrointestinal No melena 01/25/2014 Gastrointestinal No nausea 01/25/2014 Gastrointestinal No vomiting 01/25/2014 Musculoskeletal No stiffness 01/25/2014 Musculoskeletal No swelling 01/25/2014 Musculoskeletal back pain 01/25/2014 Musculoskeletal No muscle weakness 01/25/2014 Musculoskeletal No myalgias 01/25/2014 Dermatologic No rash 02/2014 Dermatologic No sores Neurologic No dizziness 01/25/2014 Neurologic No headache 0 01/25/2014 Neurologic No neck pain 01/25/2014 Neurologic No syncope Hematologic/Lymphatic No petechiae 01/25/2014 Hematologic/Lymphatic No abnormal bl eeding and bruising 01/25/2014 Hematologic/Lymphatic No anemia 01/25/2014 Hematologic/Lymphatic No lymph node enlargement/mass 01/25/2014 Psychiatric anxiety 07/0 02/2014 Psychiatric depression 0 01/25/2014 Constitutional recent illness 01/10/2014 Constitutional No anorexia 01/10/2014 Constitutional No night sweats 01/10/2014 Constitutional No chills 01/10/2014 Constitutional No diaphoresis 01/10/2014 Constitutional No fatigue 01/10/2014 Constitutional No fever 01/10/2014 Constitutional No insomnia 01/10/2014 Eyes No eye discharge Eyes No eye erythema Ears/Nose/Throat/Neck No nasal allergies 01/10/2014 Ears/Nose/Throat/Neck No nasal discharge 01/10/2014 Ears/Nose/Throat/Neck No sinus congestion 01/10/2014 Ears/Nose/Throat/Neck sore throat 01/10/2014 Ears/Nose/Throat/Neck No dizziness 01/10/2014 Ears/Nose/Throat/Neck No headache 01/10/2014 Cardiovascular No chest pain/pressure 01/10/2014 Cardiovascular No dyspnea 01/10/2014 Respiratory No productive sputum 01/10/2014 Respiratory No chest congestion 01/10/2014 Respiratory No cough Gastrointestinal No abdominal pain 01/10/2014 Gastrointestinal diarrhea 01/10/2014 Gastrointestinal No constipation 01/10/2014 Gastrointestinal No vomiting 01/10/2014 Gastrointestinal No nausea 01/10/2014 Genitourinary/Nephrology No dysuria 01/10/2014 Musculoskeletal No joint complaint 01/10/2014 Dermatologic No rash Dermatologic No sores Constitutional recent illness 09/23/2013 Constitutional No chills 09/23/2013 Constitutional No fatigue 09/23/2013 Constitutional No fever 09/23/2013 Constitutional No insomnia 09/23/2013 Constitutional No malaise 09/23/2013 Cardiovascular No fatigue 09/23/2013 Cardiovascular No edema 09/23/2013 Respiratory No cough 12/2013 Respiratory No cigarette smoking 09/23/2013 Respiratory No chest congestion 09/23/2013 Psychiatric No anxiety 0 09/23/2013 Psychiatric No depression 09/23/2013 Dermatologic No rash 12/2013 Dermatologic No scar 12/2013 Gastrointestinal No abdominal pain 09/23/2013 Gastrointestinal No constipation 09/23/2013 Gastrointestinal No diarrhea 09/23/2013 Constitutional No recent illness 09/09/2013 Constitutional No chills 09/09/2013 Constitutional fatigue 0 09/09/2013 Constitutional No fever 09/09/2013 Constitutional No insomnia 09/09/2013 Constitutional No malaise 09/09/2013 Eyes No blindness 2013 Eyes No vision change Ears/Nose/Throat/Neck No dental pain 09/09/2013 Ears/Nose/Throat/Neck No dizziness 09/09/2013 Ears/Nose/Throat/Neck No dysphagia 09/09/2013 Ears/Nose/Throat/Neck No headache 09/09/2013 Ears/Nose/Throat/Neck No hearing loss 09/09/2013 Ears/Nose/Throat/Neck No nasal allergies 09/09/2013 Ears/Nose/Throat/Neck No sore throat 09/09/2013 Ears/Nose/Throat/Neck No postnasal drip 09/09/2013 Ears/Nose/Throat/Neck No sinus congestion 09/09/2013 Gastrointestinal No hemorrhoids 09/09/2013 Gastrointestinal No abdominal pain 09/09/2013 Gastrointestinal No constipation 09/09/2013 Gastrointestinal No diarrhea 09/09/2013 Gastrointestinal No gastroesophageal reflu x 09/09/2013 Gastrointestinal No melena 09/09/2013 Gastrointestinal No nausea 09/09/2013 Gastrointestinal No vomiting 09/09/2013 Musculoskeletal No stiffness 09/09/2013 Musculoskeletal No swelling 09/09/2013 Musculoskeletal back pain 09/09/2013 Musculoskeletal No muscle weakness 09/09/2013 Musculoskeletal No myalgias 09/09/2013 Dermatologic No rash Dermatologic No sores Neurologic No dizziness 09/09/2013 Neurologic No headache 0 09/09/2013 Neurologic No neck pain 09/09/2013 Neurologic No syncope Psychiatric anxiety 08/22 Psychiatric depression 0 09/09/2013 Hematologic/Lymphatic abnormal ecchymoses 09/09/2013 Hematologic/Lymphatic No petechiae 09/09/2013 Hematologic/Lymphatic No abnormal bl eeding and bruising 09/09/2013 Hematologic/Lymphatic No anemia 09/09/2013 Hematologic/Lymphatic No lymph node enlargement/mass 09/09/2013 Constitutional No chills 06/03/2013 Constitutional No fever 06/03/2013 Cardiovascular No chest pain/pressure 06/03/2013 Cardiovascular No dyspnea 06/03/2013 Respiratory No cough Respiratory No dyspnea 1 08/03/2012 Constitutional No recent illness 06/03/2013 Constitutional fatigue 1 08/03/2012 Constitutional No insomnia 06/03/2013 Constitutional No malaise 06/03/2013 Eyes No blindness 2012 Eyes No vision change Ears/Nose/Throat/Neck No dental pain 06/03/2013 Ears/Nose/Throat/Neck No dizziness 06/03/2013 Ears/Nose/Throat/Neck No dysphagia 06/03/2013 Ears/Nose/Throat/Neck No headache 06/03/2013 Ears/Nose/Throat/Neck No hearing loss 06/03/2013 Ears/Nose/Throat/Neck No nasal allergies 06/03/2013 Ears/Nose/Throat/Neck No sore throat 06/03/2013 Ears/Nose/Throat/Neck No postnasal drip 06/03/2013 Ears/Nose/Throat/Neck No sinus congestion 06/03/2013 Respiratory No chest tightness 06/03/2013 Respiratory No cigarette smoking 06/03/2013 Respiratory No pedal edema 06/03/2013 Respiratory No snoring 1 08/03/2012 Respiratory No wheezing 06/03/2013 Gastrointestinal No hemorrhoids 06/03/2013 Gastrointestinal No abdominal pain 06/03/2013 Gastrointestinal No constipation 06/03/2013 Gastrointestinal No diarrhea 06/03/2013 Gastrointestinal gastroesophageal reflux 06/03/2013 Gastrointestinal No melena 06/03/2013 Gastrointestinal No nausea 06/03/2013 Gastrointestinal No vomiting 06/03/2013 Musculoskeletal No stiffness 06/03/2013 Musculoskeletal No swelling 06/03/2013 Musculoskeletal back pain 06/03/2013 Musculoskeletal No muscle weakness 06/03/2013 Musculoskeletal No myalgias 06/03/2013 Dermatologic No rash Dermatologic No sores Neurologic No dizziness 06/03/2013 Neurologic No headache 1 08/03/2012 Neurologic No neck pain 06/03/2013 Neurologic No syncope Hematologic/Lymphatic No petechiae 06/03/2013 Hematologic/Lymphatic No abnormal bl eeding and bruising 06/03/2013 Hematologic/Lymphatic No anemia 06/03/2013 Hematologic/Lymphatic No lymph node enlargement/mass 06/03/2013 Constitutional No recent illness 02/04/2013 Constitutional No chills 02/04/2013 Constitutional fatigue 0 02/04/2013 Respiratory No chest tightness 02/04/2013 Respiratory No dyspnea 0 02/04/2013 Dermatologic No rash Dermatologic No sores Psychiatric anxiety 01/18 Psychiatric depression 0 02/04/2013 Constitutional No recent illness 12/31/2012 Constitutional No chills 12/31/2012 Constitutional fatigue 0 12/31/2012 Constitutional No fever 12/31/2012 Constitutional No insomnia 12/31/2012 Constitutional No malaise 12/31/2012 Eyes No blindness 2012 Eyes No vision change Ears/Nose/Throat/Neck No dental pain 12/31/2012 Ears/Nose/Throat/Neck No dizziness 12/31/2012 Ears/Nose/Throat/Neck No dysphagia 12/31/2012 Ears/Nose/Throat/Neck No headache 12/31/2012 Ears/Nose/Throat/Neck No hearing loss 12/31/2012 Ears/Nose/Throat/Neck No nasal allergies 12/31/2012 Ears/Nose/Throat/Neck No sore throat 12/31/2012 Ears/Nose/Throat/Neck No postnasal drip 12/31/2012 Ears/Nose/Throat/Neck No sinus congestion 12/31/2012 Respiratory No chest tightness 12/31/2012 Respiratory No cigarette smoking 12/31/2012 Respiratory No dyspnea 0 12/31/2012 Respiratory No pedal edema 12/31/2012 Respiratory No snoring 0 12/31/2012 Respiratory No wheezing 12/31/2012 Gastrointestinal No hemorrhoids 12/31/2012 Gastrointestinal No abdominal pain 12/31/2012 Gastrointestinal No constipation 12/31/2012 Gastrointestinal No diarrhea 12/31/2012 Gastrointestinal No gastroesophageal reflu x 12/31/2012 Gastrointestinal No melena 12/31/2012 Gastrointestinal No nausea 12/31/2012 Gastrointestinal No vomiting 12/31/2012 Musculoskeletal No stiffness 12/31/2012 Musculoskeletal No swelling 12/31/2012 Musculoskeletal back pain 12/31/2012 Musculoskeletal No muscle weakness 12/31/2012 Musculoskeletal No myalgias 12/31/2012 Dermatologic No rash Dermatologic No sores Neurologic No dizziness 12/31/2012 Neurologic No headache 0 12/31/2012 Neurologic No neck pain 12/31/2012 Neurologic No syncope Psychiatric anxiety 12/19 Psychiatric depression 0 12/31/2012 Hematologic/Lymphatic abnormal ecchymoses 12/31/2012 Hematologic/Lymphatic No petechiae 12/31/2012 Hematologic/Lymphatic No abnormal bl eeding and bruising 12/31/2012 Hematologic/Lymphatic No anemia 12/31/2012 Hematologic/Lymphatic No lymph node enlargement/mass 12/31/2012 Gastrointestinal No hemorrhoids 10/01/2012 Gastrointestinal No abdominal pain 10/01/2012 Gastrointestinal No constipation 10/01/2012 Gastrointestinal No diarrhea 10/01/2012 Constitutional No recent illness 10/01/2012 Constitutional No chills 10/01/2012 Constitutional fatigue 0 10/01/2012 Constitutional No fever 10/01/2012 Gastrointestinal No gastroesophageal reflu x 10/01/2012 Gastrointestinal No melena 10/01/2012 Gastrointestinal No nausea 10/01/2012 Gastrointestinal No vomiting 10/01/2012 Musculoskeletal No stiffness 10/01/2012 Musculoskeletal No swelling 10/01/2012 Musculoskeletal back pain 10/01/2012 Musculoskeletal No muscle weakness 10/01/2012 Musculoskeletal No myalgias 10/01/2012 Dermatologic No rash Dermatologic No sores Neurologic No dizziness 10/01/2012 Neurologic No headache 0 10/01/2012 Neurologic No neck pain 10/01/2012 Neurologic No syncope Psychiatric anxiety 09/18 Psychiatric depression 0 10/01/2012 Hematologic/Lymphatic abnormal ecchymoses 10/01/2012 Hematologic/Lymphatic No petechiae 10/01/2012 Hematologic/Lymphatic No abnormal bl eeding and bruising 10/01/2012 Hematologic/Lymphatic No anemia 10/01/2012 Hematologic/Lymphatic No lymph node enlargement/mass 10/01/2012 Constitutional No insomnia 10/01/2012 Constitutional No malaise 10/01/2012 Eyes No blindness 2012 Eyes No vision change Ears/Nose/Throat/Neck No dental pain 10/01/2012 Ears/Nose/Throat/Neck No dizziness 10/01/2012 Ears/Nose/Throat/Neck No dysphagia 10/01/2012 Ears/Nose/Throat/Neck No headache 10/01/2012 Ears/Nose/Throat/Neck No hearing loss 10/01/2012 Ears/Nose/Throat/Neck No nasal allergies 10/01/2012 Ears/Nose/Throat/Neck No sore throat 10/01/2012 Ears/Nose/Throat/Neck No postnasal drip 10/01/2012 Ears/Nose/Throat/Neck No sinus congestion 10/01/2012 Respiratory No chest tightness 10/01/2012 Respiratory No cigarette smoking 10/01/2012 Respiratory cough 2012 Respiratory No dyspnea 0 10/01/2012 Respiratory No pedal edema 10/01/2012 Respiratory No snoring 0 10/01/2012 Respiratory No wheezing 10/01/2012 Constitutional No chills 09/03/2012 Constitutional fatigue 0 09/03/2012 Constitutional No fever 09/03/2012 Constitutional No insomnia 09/03/2012 Constitutional No malaise 09/03/2012 Respiratory No chest tightness 09/03/2012 Respiratory No cigarette smoking 09/03/2012 Respiratory cough 2012 Respiratory No dyspnea 0 09/03/2012 Respiratory No pedal edema 09/03/2012 Respiratory No snoring 0 09/03/2012 Respiratory No wheezing 09/03/2012 Gastrointestinal No hemorrhoids 09/03/2012 Gastrointestinal No abdominal pain 09/03/2012 Gastrointestinal No constipation 09/03/2012 Gastrointestinal No diarrhea 09/03/2012 Gastrointestinal No gastroesophageal reflu x 09/03/2012 Gastrointestinal No melena 09/03/2012 Gastrointestinal No nausea 09/03/2012 Gastrointestinal No vomiting 09/03/2012 Musculoskeletal No stiffness 09/03/2012 Musculoskeletal No swelling 09/03/2012 Musculoskeletal No muscle weakness 09/03/2012 Musculoskeletal No myalgias 09/03/2012 Musculoskeletal back pain 09/03/2012 Neurologic No dizziness 09/03/2012 Neurologic No headache 0 09/03/2012 Constitutional No recent illness 09/03/2012 Neurologic No neck pain 09/03/2012 Neurologic No syncope Hematologic/Lymphatic abnormal ecchymoses 09/03/2012 Hematologic/Lymphatic No petechiae 09/03/2012 Hematologic/Lymphatic No abnormal bl eeding and bruising 09/03/2012 Hematologic/Lymphatic No anemia 09/03/2012 Hematologic/Lymphatic No lymph node enlargement/mass 09/03/2012 Psychiatric depression 0 09/03/2012 Psychiatric anxiety 08/21 Dermatologic No rash Dermatologic No sores Ears/Nose/Throat/Neck No dental pain 09/03/2012 Ears/Nose/Throat/Neck No dizziness 09/03/2012 Ears/Nose/Throat/Neck No dysphagia 09/03/2012 Ears/Nose/Throat/Neck No headache 09/03/2012 Ears/Nose/Throat/Neck No hearing loss 09/03/2012 Ears/Nose/Throat/Neck No nasal allergies 09/03/2012 Ears/Nose/Throat/Neck No sore throat 09/03/2012 Ears/Nose/Throat/Neck No postnasal drip 09/03/2012 Ears/Nose/Throat/Neck No sinus congestion 09/03/2012 Eyes No blindness 2012 Eyes No vision change Constitutional recent illness 06/26/2011 Constitutional No chills 06/26/2011 Constitutional No fever 06/26/2011 Cardiovascular No chest pain/pressure 06/26/2011 Cardiovascular No dyspnea 06/26/2011 Cardiovascular No edema 06/26/2011 Cardiovascular No fatigue 06/26/2011 Respiratory cough 2010 Gastrointestinal No abdominal pain 06/26/2011 Gastrointestinal No constipation 06/26/2011 Gastrointestinal No diarrhea 06/26/2011 Ears/Nose/Throat/Neck No dizziness 06/26/2011 Ears/Nose/Throat/Neck No headache 06/26/2011 Ears/Nose/Throat/Neck sinus congestion 06/26/2011 Musculoskeletal No stiffness 06/26/2011 Musculoskeletal No arthralgia(s) 06/26/2011 Musculoskeletal No back pain 06/26/2011 Dermatologic No rash 01/2011 Dermatologic No sores Neurologic No ataxia 01/2011 Neurologic No dizziness 06/26/2011 Psychiatric depression 1 08/27/2010 Psychiatric No anxiety 1 08/27/2010 Constitutional No night sweats 06/26/2011 Physical Exam Exam Name System Name It em Name Status Result Effective Dates Notes Full Exam - General 1994 Constitutional general appearance Overall: well developed 06/30/2018 None Full Exam - General 1994 Constitutional general appearance Overall: in no acute distress 06/30/2018 None Full Exam - General 1994 Constitutional general appearance Overall: well nourished 06/30/2018 None Full Exam - General 1994 Eyes conjunctiva/eyelids Overall: conjunctiva clear 06/30/2018 None Full Exam - General 1994 Eyes conjunctiva/eyelids Overall: cornea clear 06/30/2018 None Full Exam - General 1994 Eyes conjunctiva/eyelids Overall: eyelids normal 06/30/2018 None Full Exam - General 1994 Eyes pupils and irises Overall: pupils equal, round, reactive to light and accomodation 06/30/2018 None Full Exam - General 1994 Ears/Nose/Throat otoscopic exam Overall: external auditory canals clear 06/30/2018 None Full Exam - General 1994 Ears/Nose/Throat otoscopic exam Overall: tympanic membranes clear 06/30/2018 None Full Exam - General 1994 Ears/Nose/Throat oral cavity/pharynx/larynx Overall: oral mucosa clear 06/30/2018 None Full Exam - General 1994 Ears/Nose/Throat oral cavity/pharynx/larynx Overall: oropharyngeal mucosa clear 06/30/2018 None Full Exam - General 1994 Ears/Nose/Throat oral cavity/pharynx/larynx Overall: no masses 06/30/2018 None Full Exam - General 1994 Respiratory auscultation Overall: breath sounds clear bilaterally 06/30/2018 None Full Exam - General 1994 Respiratory respiratory effort/rhythm Overall: no retractions 06/30/2018 None Full Exam - General 1994 Respiratory respiratory effort/rhythm Overall: normal rate 06/30/2018 None Full Exam - General 1994 Cardiovascular extremities Overall: no clubbing 06/30/2018 None Full Exam - General 1994 Cardiovascular auscultation of heart Overall: regular rate 06/30/2018 None Full Exam - General 1994 Cardiovascular auscultation of heart Overall: normal heart sounds 06/30/2018 None Full Exam - General 1994 Cardiovascular auscultation of heart Overall: no murmurs 06/30/2018 None Full Exam - General 1994 Lymphatic neck nodes Overall: anterior cervical chain benign 06/30/2018 None Full Exam - General 1994 Lymphatic neck nodes Overall: posterior cervical chain benign 06/30/2018 None Full Exam - General 1994 Neurologic gait Overall: no ataxia, no unsteadiness 06/30/2018 None Full Exam - General 1994 Psychiatric orientation/consciousness Overall: oriented to person, place and time 06/30/2018 None Full Exam - General 1994 Psychiatric mood and affect Overall: normal mood and affect 06/30/2018 None Full Exam - General 1994 Psychiatric mood and affect Mood: happy 06/30/2018 None Full Exam - General 1994 Integument inspection of skin Overall: few scattered moles, no gross abnormalities 06/30/2018 None Full Exam - General 1994 Constitutional general appearance Overall: well developed 03/03/2018 None Full Exam - General 1994 Constitutional general appearance Overall: in no acute distress 03/03/2018 None Full Exam - General 1994 Constitutional general appearance Overall: well nourished 03/03/2018 None Full Exam - General 1994 Eyes conjunctiva/eyelids Overall: conjunctiva clear 03/03/2018 None Full Exam - General 1994 Eyes conjunctiva/eyelids Overall: cornea clear 03/03/2018 None Full Exam - General 1994 Eyes conjunctiva/eyelids Overall: eyelids normal 03/03/2018 None Full Exam - General 1994 Eyes pupils and irises Overall: pupils equal, round, reactive to light and accomodation 03/03/2018 None Full Exam - General 1994 Ears/Nose/Throat otoscopic exam Overall: external auditory canals clear 03/03/2018 None Full Exam - General 1994 Ears/Nose/Throat otoscopic exam Overall: tympanic membranes clear 03/03/2018 None Full Exam - General 1994 Ears/Nose/Throat oral cavity/pharynx/larynx Overall: oral mucosa clear 03/03/2018 None Full Exam - General 1994 Ears/Nose/Throat oral cavity/pharynx/larynx Overall: oropharyngeal mucosa clear 03/03/2018 None Full Exam - General 1994 Ears/Nose/Throat oral cavity/pharynx/larynx Overall: no masses 03/03/2018 None Full Exam - General 1994 Respiratory auscultation Overall: breath sounds clear bilaterally 03/03/2018 None Full Exam - General 1994 Respiratory respiratory effort/rhythm Overall: no retractions 03/03/2018 None Full Exam - General 1994 Respiratory respiratory effort/rhythm Overall: normal rate 03/03/2018 None Full Exam - General 1994 Cardiovascular extremities Overall: no clubbing 03/03/2018 None Full Exam - General 1994 Cardiovascular auscultation of heart Overall: regular rate 03/03/2018 None Full Exam - General 1994 Cardiovascular auscultation of heart Overall: normal heart sounds 03/03/2018 None Full Exam - General 1994 Cardiovascular auscultation of heart Overall: no murmurs 03/03/2018 None Full Exam - General 1994 Lymphatic neck nodes Overall: anterior cervical chain benign 03/03/2018 None Full Exam - General 1994 Lymphatic neck nodes Overall: posterior cervical chain benign 03/03/2018 None Full Exam - General 1994 Neurologic gait Overall: no ataxia, no unsteadiness 03/03/2018 None Full Exam - General 1994 Psychiatric orientation/consciousness Overall: oriented to person, place and time 03/03/2018 None Full Exam - General 1994 Psychiatric mood and affect Overall: normal mood and affect 03/03/2018 None Full Exam - General 1994 Psychiatric mood and affect Mood: happy 03/03/2018 None Full Exam - General 1994 Constitutional general appearance Overall: well developed 01/27/2018 None Full Exam - General 1994 Constitutional general appearance Overall: in no acute distress 01/27/2018 None Full Exam - General 1994 Constitutional general appearance Overall: well nourished 01/27/2018 None Full Exam - General 1994 Eyes conjunctiva/eyelids Overall: conjunctiva clear 01/27/2018 None Full Exam - General 1994 Eyes conjunctiva/eyelids Overall: cornea clear 01/27/2018 None Full Exam - General 1994 Eyes conjunctiva/eyelids Overall: eyelids normal 01/27/2018 None Full Exam - General 1994 Eyes pupils and irises Overall: pupils equal, round, reactive to light and accomodation 01/27/2018 None Full Exam - General 1994 Ears/Nose/Throat otoscopic exam Overall: external auditory canals clear 01/27/2018 None Full Exam - General 1994 Ears/Nose/Throat otoscopic exam Overall: tympanic membranes clear 01/27/2018 None Full Exam - General 1994 Ears/Nose/Throat oral cavity/pharynx/larynx Overall: oral mucosa clear 01/27/2018 None Full Exam - General 1994 Ears/Nose/Throat oral cavity/pharynx/larynx Overall: oropharyngeal mucosa clear 01/27/2018 None Full Exam - General 1994 Ears/Nose/Throat oral cavity/pharynx/larynx Overall: no masses 01/27/2018 None Full Exam - General 1994 Respiratory auscultation Overall: breath sounds clear bilaterally 01/27/2018 None Full Exam - General 1994 Respiratory respiratory effort/rhythm Overall: no retractions 01/27/2018 None Full Exam - General 1994 Respiratory respiratory effort/rhythm Overall: normal rate 01/27/2018 None Full Exam - General 1994 Cardiovascular extremities Overall: no clubbing 01/27/2018 None Full Exam - General 1994 Cardiovascular auscultation of heart Overall: regular rate 01/27/2018 None Full Exam - General 1994 Cardiovascular auscultation of heart Overall: normal heart sounds 01/27/2018 None Full Exam - General 1994 Cardiovascular auscultation of heart Overall: no murmurs 01/27/2018 None Full Exam - General 1994 Abdomen abdominal exam Overall: no tenderness 01/27/2018 None Full Exam - General 1994 Abdomen abdominal exam Overall: normal bowel sounds 01/27/2018 None Full Exam - General 1994 Lymphatic neck nodes Overall: anterior cervical chain benign 01/27/2018 None Full Exam - General 1994 Lymphatic neck nodes Overall: posterior cervical chain benign 01/27/2018 None Full Exam - General 1994 Neurologic gait Overall: no ataxia, no unsteadiness 01/27/2018 None Full Exam - General 1994 Psychiatric orientation/consciousness Overall: oriented to person, place and time 01/27/2018 None Full Exam - General 1994 Psychiatric mood and affect Overall: normal mood and affect 01/27/2018 None Full Exam - General 1994 Psychiatric mood and affect Mood: happy 01/27/2018 None Full Exam - General 1994 Constitutional general appearance Overall: well developed 10/13/2017 None Full Exam - General 1994 Constitutional general appearance Overall: in no acute distress 10/13/2017 None Full Exam - General 1994 Constitutional general appearance Overall: well nourished 10/13/2017 None Full Exam - General 1994 Eyes conjunctiva/eyelids Overall: conjunctiva clear 10/13/2017 None Full Exam - General 1994 Eyes conjunctiva/eyelids Overall: cornea clear 10/13/2017 None Full Exam - General 1994 Eyes conjunctiva/eyelids Overall: eyelids normal 10/13/2017 None Full Exam - General 1994 Eyes pupils and irises Overall: pupils equal, round, reactive to light and accomodation 10/13/2017 None Full Exam - General 1994 Ears/Nose/Throat otoscopic exam Overall: external auditory canals clear 10/13/2017 None Full Exam - General 1994 Ears/Nose/Throat otoscopic exam Overall: tympanic membranes clear 10/13/2017 None Full Exam - General 1994 Ears/Nose/Throat oral cavity/pharynx/larynx Overall: oral mucosa clear 10/13/2017 None Full Exam - General 1994 Ears/Nose/Throat oral cavity/pharynx/larynx Overall: oropharyngeal mucosa clear 10/13/2017 None Full Exam - General 1994 Ears/Nose/Throat oral cavity/pharynx/larynx Overall: no masses 10/13/2017 None Full Exam - General 1994 Respiratory auscultation Overall: breath sounds clear bilaterally 10/13/2017 None Full Exam - General 1994 Respiratory respiratory effort/rhythm Overall: no retractions 10/13/2017 None Full Exam - General 1994 Respiratory respiratory effort/rhythm Overall: normal rate 10/13/2017 None Full Exam - General 1994 Cardiovascular extremities Overall: no clubbing 10/13/2017 None Full Exam - General 1994 Cardiovascular auscultation of heart Overall: regular rate 10/13/2017 None Full Exam - General 1994 Cardiovascular auscultation of heart Overall: normal heart sounds 10/13/2017 None Full Exam - General 1994 Cardiovascular auscultation of heart Overall: no murmurs 10/13/2017 None Full Exam - General 1994 Abdomen abdominal exam Overall: no tenderness 10/13/2017 None Full Exam - General 1994 Abdomen abdominal exam Overall: normal bowel sounds 10/13/2017 None Full Exam - General 1994 Lymphatic neck nodes Overall: anterior cervical chain benign 10/13/2017 None Full Exam - General 1994 Lymphatic neck nodes Overall: posterior cervical chain benign 10/13/2017 None Full Exam - General 1994 Neurologic gait Overall: no ataxia, no unsteadiness 10/13/2017 None Full Exam - General 1994 Psychiatric orientation/consciousness Overall: oriented to person, place and time 10/13/2017 None Full Exam - General 1994 Psychiatric mood and affect Overall: normal mood and affect 10/13/2017 None Full Exam - General 1994 Psychiatric mood and affect Mood: happy 10/13/2017 None Full Exam - General 1994 Constitutional general appearance Overall: well developed 08/07/2017 None Full Exam - General 1994 Constitutional general appearance Overall: in no acute distress 08/07/2017 None Full Exam - General 1994 Constitutional general appearance Overall: well nourished 08/07/2017 None Full Exam - General 1994 Eyes conjunctiva/eyelids Overall: conjunctiva clear 08/07/2017 None Full Exam - General 1994 Eyes conjunctiva/eyelids Overall: cornea clear 08/07/2017 None Full Exam - General 1994 Eyes conjunctiva/eyelids Overall: eyelids normal 08/07/2017 None Full Exam - General 1994 Eyes pupils and irises Overall: pupils equal, round, reactive to light and accomodation 08/07/2017 None Full Exam - General 1994 Ears/Nose/Throat otoscopic exam Overall: external auditory canals clear 08/07/2017 None Full Exam - General 1994 Ears/Nose/Throat otoscopic exam Overall: tympanic membranes clear 08/07/2017 None Full Exam - General 1994 Ears/Nose/Throat oral cavity/pharynx/larynx Overall: oral mucosa clear 08/07/2017 None Full Exam - General 1994 Ears/Nose/Throat oral cavity/pharynx/larynx Overall: oropharyngeal mucosa clear 08/07/2017 None Full Exam - General 1994 Ears/Nose/Throat oral cavity/pharynx/larynx Overall: no masses 08/07/2017 None Full Exam - General 1994 Respiratory auscultation Overall: breath sounds clear bilaterally 08/07/2017 None Full Exam - General 1994 Respiratory respiratory effort/rhythm Overall: no retractions 08/07/2017 None Full Exam - General 1994 Respiratory respiratory effort/rhythm Overall: normal rate 08/07/2017 None Full Exam - General 1994 Cardiovascular extremities Overall: no clubbing 08/07/2017 None Full Exam - General 1994 Cardiovascular auscultation of heart Overall: regular rate 08/07/2017 None Full Exam - General 1994 Cardiovascular auscultation of heart Overall: normal heart sounds 08/07/2017 None Full Exam - General 1994 Cardiovascular auscultation of heart Overall: no murmurs 08/07/2017 None Full Exam - General 1994 Neurologic gait Overall: no ataxia, no unsteadiness 08/07/2017 None Full Exam - General 1994 Psychiatric orientation/consciousness Overall: oriented to person, place and time 08/07/2017 None Full Exam - General 1994 Psychiatric mood and affect Overall: normal mood and affect 08/07/2017 None Full Exam - General 1994 Psychiatric mood and affect Mood: happy 08/07/2017 None Full Exam - General 1994 Abdomen abdominal exam Overall: no tenderness 08/07/2017 None Full Exam - General 1994 Abdomen abdominal exam Overall: normal bowel sounds 08/07/2017 None Full Exam - General 1994 Lymphatic neck nodes Overall: anterior cervical chain benign 08/07/2017 None Full Exam - General 1994 Lymphatic neck nodes Overall: posterior cervical chain benign 08/07/2017 None Full Exam - General 1994 Integument inspection of skin Dermatitis: erythema 05/27/2017 4 x 3.5 cm of erythema on left inner forearm, and 5.5 x 5 cm of induration Full Exam - General 1994 Constitutional general appearance Overall: well nourished 05/27/2017 None Full Exam - General 1994 Constitutional general appearance Overall: well developed 05/27/2017 None Full Exam - General 1994 Constitutional general appearance Overall: in no acute distress 05/27/2017 None Full Exam - General 1994 Eyes pupils and irises Overall: pupils equal, round, reactive to light and accomodation 05/27/2017 None Full Exam - General 1994 Ears/Nose/Throat oral cavity/pharynx/larynx Overall: oropharyngeal mucosa clear 05/27/2017 None Full Exam - General 1994 Ears/Nose/Throat oral cavity/pharynx/larynx Overall: no masses 05/27/2017 None Full Exam - General 1994 Ears/Nose/Throat oral cavity/pharynx/larynx Overall: oral mucosa clear 05/27/2017 None Full Exam - General 1994 Respiratory auscultation Overall: breath sounds clear bilaterally 05/27/2017 None Full Exam - General 1994 Respiratory respiratory effort/rhythm Overall: normal rate 05/27/2017 None Full Exam - General 1994 Respiratory respiratory effort/rhythm Overall: no retractions 05/27/2017 None Full Exam - General 1994 Cardiovascular auscultation of heart Overall: regular rate 05/27/2017 None Full Exam - General 1994 Cardiovascular auscultation of heart Overall: normal heart sounds 05/27/2017 None Full Exam - General 1994 Cardiovascular auscultation of heart Overall: no murmurs 05/27/2017 None Full Exam - General 1994 Cardiovascular extremities Overall: no clubbing 05/27/2017 None Full Exam - General 1994 Abdomen abdominal exam Overall: no tenderness 05/27/2017 None Full Exam - General 1994 Abdomen abdominal exam Overall: normal bowel sounds 05/27/2017 None Full Exam - General 1994 Psychiatric orientation/consciousness Overall: oriented to person, place and time 05/27/2017 None Full Exam - General 1994 Psychiatric mood and affect Mood: happy 05/27/2017 None Full Exam - General 1994 Psychiatric mood and affect Overall: normal mood and affect 05/27/2017 None Full Exam - General 1994 Constitutional general appearance Overall: well developed 04/10/2017 None Full Exam - General 1994 Constitutional general appearance Overall: in no acute distress 04/10/2017 None Full Exam - General 1994 Constitutional general appearance Overall: well nourished 04/10/2017 None Full Exam - General 1994 Eyes conjunctiva/eyelids Overall: conjunctiva clear 04/10/2017 None Full Exam - General 1994 Eyes conjunctiva/eyelids Overall: cornea clear 04/10/2017 None Full Exam - General 1994 Eyes conjunctiva/eyelids Overall: eyelids normal 04/10/2017 None Full Exam - General 1994 Eyes pupils and irises Overall: pupils equal, round, reactive to light and accomodation 04/10/2017 None Full Exam - General 1994 Ears/Nose/Throat otoscopic exam Overall: external auditory canals clear 04/10/2017 None Full Exam - General 1994 Ears/Nose/Throat otoscopic exam Overall: tympanic membranes clear 04/10/2017 None Full Exam - General 1994 Ears/Nose/Throat oral cavity/pharynx/larynx Overall: oral mucosa clear 04/10/2017 None Full Exam - General 1994 Ears/Nose/Throat oral cavity/pharynx/larynx Overall: oropharyngeal mucosa clear 04/10/2017 None Full Exam - General 1994 Ears/Nose/Throat oral cavity/pharynx/larynx Overall: no masses 04/10/2017 None Full Exam - General 1994 Respiratory auscultation Overall: breath sounds clear bilaterally 04/10/2017 None Full Exam - General 1994 Respiratory respiratory effort/rhythm Overall: no retractions 04/10/2017 None Full Exam - General 1994 Respiratory respiratory effort/rhythm Overall: normal rate 04/10/2017 None Full Exam - General 1994 Cardiovascular extremities Overall: no clubbing 04/10/2017 None Full Exam - General 1994 Cardiovascular auscultation of heart Overall: regular rate 04/10/2017 None Full Exam - General 1994 Cardiovascular auscultation of heart Overall: normal heart sounds 04/10/2017 None Full Exam - General 1994 Cardiovascular auscultation of heart Overall: no murmurs 04/10/2017 None Full Exam - General 1994 Neurologic gait Overall: no ataxia, no unsteadiness 04/10/2017 None Full Exam - General 1994 Psychiatric orientation/consciousness Overall: oriented to person, place and time 04/10/2017 None Full Exam - General 1994 Psychiatric mood and affect Overall: normal mood and affect 04/10/2017 None Full Exam - General 1994 Psychiatric mood and affect Mood: happy 04/10/2017 None Full Exam - General 1994 Constitutional general appearance Overall: well developed 03/18/2017 None Full Exam - General 1994 Constitutional general appearance Overall: in no acute distress 03/18/2017 None Full Exam - General 1994 Constitutional general appearance Overall: well nourished 03/18/2017 None Full Exam - General 1994 Eyes conjunctiva/eyelids Overall: conjunctiva clear 03/18/2017 None Full Exam - General 1994 Eyes conjunctiva/eyelids Overall: cornea clear 03/18/2017 None Full Exam - General 1994 Eyes conjunctiva/eyelids Overall: eyelids normal 03/18/2017 None Full Exam - General 1994 Eyes pupils and irises Overall: pupils equal, round, reactive to light and accomodation 03/18/2017 None Full Exam - General 1994 Ears/Nose/Throat otoscopic exam Overall: external auditory canals clear 03/18/2017 None Full Exam - General 1994 Ears/Nose/Throat otoscopic exam Overall: tympanic membranes clear 03/18/2017 None Full Exam - General 1994 Ears/Nose/Throat lips/teeth/gingiva Overall: benign lips 03/18/2017 None Full Exam - General 1994 Ears/Nose/Throat lips/teeth/gingiva Overall: normal dentition 03/18/2017 None Full Exam - General 1994 Ears/Nose/Throat lips/teeth/gingiva Overall: benign gingiva 03/18/2017 None Full Exam - General 1994 Ears/Nose/Throat lips/teeth/gingiva Overall: no masses 03/18/2017 None Full Exam - General 1994 Ears/Nose/Throat oral cavity/pharynx/larynx Overall: oral mucosa clear 03/18/2017 None Full Exam - General 1994 Ears/Nose/Throat oral cavity/pharynx/larynx Overall: oropharyngeal mucosa clear 03/18/2017 None Full Exam - General 1994 Ears/Nose/Throat oral cavity/pharynx/larynx Overall: no masses 03/18/2017 None Full Exam - General 1994 Respiratory auscultation Overall: breath sounds clear bilaterally 03/18/2017 None Full Exam - General 1994 Respiratory respiratory effort/rhythm Overall: no retractions 03/18/2017 None Full Exam - General 1994 Respiratory respiratory effort/rhythm Overall: normal rate 03/18/2017 None Full Exam - General 1994 Cardiovascular extremities Overall: no clubbing 03/18/2017 None Full Exam - General 1994 Cardiovascular auscultation of heart Overall: regular rate 03/18/2017 None Full Exam - General 1994 Cardiovascular auscultation of heart Overall: normal heart sounds 03/18/2017 None Full Exam - General 1994 Cardiovascular auscultation of heart Overall: no murmurs 03/18/2017 None Full Exam - General 1994 Abdomen abdominal exam Overall: no tenderness 03/18/2017 None Full Exam - General 1994 Abdomen abdominal exam Overall: normal bowel sounds 03/18/2017 None Full Exam - General 1994 Musculoskeletal gait and station Overall: normal gait 03/18/2017 None Full Exam - General 1994 Musculoskeletal gait and station Overall: normal station 03/18/2017 None Full Exam - General 1994 Integument inspection of skin Overall: no rash, lesions 03/18/2017 None Full Exam - General 1994 Psychiatric orientation/consciousness Overall: oriented to person, place and time 03/18/2017 None Full Exam - General 1994 Psychiatric behavior/psychomotor activity Overall: no tics, normal psychomotor activity 03/18/2017 None Full Exam - General 1994 Psychiatric appearance Overall: well-groomed, good eye contact 03/18/2017 None Full Exam - Dermatology Constitutional general appearance Overall: well nourished 12/20/2016 None Full Exam - Dermatology Constitutional general appearance Overall: well developed 12/20/2016 None Full Exam - Dermatology Constitutional general appearance Overall: in no acute distress 12/20/2016 None Full Exam - Dermatology Constitutional general appearance Overall: of normal body habitus 12/20/2016 None Full Exam - Dermatology Integument insp & palp - left lower extremity Distribution: localized 12/20/2016 small area erythema noted to anteror alonso-no warmth, no raised area Full Exam - Dermatology Integument insp & palp - right lower extremity Distribution: localized 12/20/2016 right posterior thigh- small area of erythema-no rasied lesion, no drainage, no tenderness, itching or warmth Full Exam - ENT Constitutional general appearance Overall: well nourished 12/17/2016 None Full Exam - ENT Constitutional general appearance Overall: well developed 12/17/2016 None Full Exam - ENT Constitutional general appearance Overall: in no acute distress 12/17/2016 None Full Exam - ENT Neurologic orientation Overall: oriented to person, place a nd time 12/17/2016 None Full Exam - ENT Lymphatic palpation of lymph nodes Overall: anterior cervical chain benign 12/17/2016 None Full Exam - ENT Lymphatic palpation of lymph nodes Overall: posterior cervical chain benign 12/17/2016 None Full Exam - ENT Ears/Nose/Throat otoscopic exam Left external auditory canal: partia l cerumen occlusion 12/17/2016 None Full Exam - ENT Ears/Nose/Throat otoscopic exam Right external auditory canal: parti al cerumen occlusion 12/17/2016 None Full Exam - ENT Ears/Nose/Throat otoscopic exam Left tympanic membrane: not visualiz ed 12/17/2016 None Full Exam - ENT Ears/Nose/Throat otoscopic exam Right tympanic membrane: intact 12/17/2016 None Full Exam - ENT Ears/Nose/Throat otoscopic exam Right tympanic membrane: mobile 12/17/2016 None Full Exam - ENT Ears/Nose/Throat oropharynx Overall: oral mucosa clear 12/17/2016 None Full Exam - ENT Face and Head palpation Overall: no sinus tenderness 12/17/2016 None Full Exam - ENT Respiratory auscultation Diffuse: expiratory wheezes 12/17/2016 on the right, left lung CTA Full Exam - ENT Abdomen abdominal exam Overall: no tenderness 12/17/2016 None Full Exam - ENT Abdomen abdominal exam Overall: normal bowel sounds 12/17/2016 None Full Exam - ENT Cardiovascular examination of vasculature Overall: no varicose veins 12/17/2016 None Full Exam - General 1994 Constitutional general appearance Overall: well developed 09/17/2016 None Full Exam - General 1994 Constitutional general appearance Overall: in no acute distress 09/17/2016 None Full Exam - General 1994 Constitutional general appearance Overall: well nourished 09/17/2016 None Full Exam - General 1994 Eyes conjunctiva/eyelids Overall: conjunctiva clear 09/17/2016 None Full Exam - General 1994 Eyes conjunctiva/eyelids Overall: cornea clear 09/17/2016 None Full Exam - General 1994 Eyes conjunctiva/eyelids Overall: eyelids normal 09/17/2016 None Full Exam - General 1994 Eyes pupils and irises Overall: pupils equal, round, reactive to light and accomodation 09/17/2016 None Full Exam - General 1994 Ears/Nose/Throat otoscopic exam Overall: external auditory canals clear 09/17/2016 None Full Exam - General 1994 Ears/Nose/Throat otoscopic exam Overall: tympanic membranes clear 09/17/2016 None Full Exam - General 1994 Ears/Nose/Throat oral cavity/pharynx/larynx Overall: oral mucosa clear 09/17/2016 None Full Exam - General 1994 Ears/Nose/Throat oral cavity/pharynx/larynx Overall: oropharyngeal mucosa clear 09/17/2016 None Full Exam - General 1994 Ears/Nose/Throat oral cavity/pharynx/larynx Overall: no masses 09/17/2016 None Full Exam - General 1994 Respiratory auscultation Overall: breath sounds clear bilaterally 09/17/2016 None Full Exam - General 1994 Respiratory respiratory effort/rhythm Overall: no retractions 09/17/2016 None Full Exam - General 1994 Respiratory respiratory effort/rhythm Overall: normal rate 09/17/2016 None Full Exam - General 1994 Cardiovascular extremities Overall: no clubbing 09/17/2016 None Full Exam - General 1994 Cardiovascular auscultation of heart Overall: regular rate 09/17/2016 None Full Exam - General 1994 Cardiovascular auscultation of heart Overall: normal heart sounds 09/17/2016 None Full Exam - General 1994 Cardiovascular auscultation of heart Overall: no murmurs 09/17/2016 None Full Exam - General 1994 Abdomen abdominal exam Overall: no tenderness 09/17/2016 None Full Exam - General 1994 Abdomen abdominal exam Overall: normal bowel sounds 09/17/2016 None Full Exam - General 1994 Lymphatic neck nodes Overall: anterior cervical chain benign 09/17/2016 None Full Exam - General 1994 Lymphatic neck nodes Overall: posterior cervical chain benign 09/17/2016 None Full Exam - General 1994 Integument inspection of skin Overall: no rash, lesions 09/17/2016 None Full Exam - General 1994 Neurologic gait Overall: no ataxia, no unsteadiness 09/17/2016 None Full Exam - General 1994 Neurologic cranial nerves Overall: crainial nerves 2 - 12 grossly intact 09/17/2016 None Full Exam - General 1994 Psychiatric orientation/consciousness Overall: oriented to person, place and time 09/17/2016 None Full Exam - General 1994 Psychiatric mood and affect Overall: normal mood and affect 09/17/2016 None Full Exam - General 1994 Psychiatric mood and affect Mood: happy 09/17/2016 None Full Exam - General 1994 Constitutional general appearance Overall: well developed 05/20/2016 None Full Exam - General 1994 Constitutional general appearance Overall: in no acute distress 05/20/2016 None Full Exam - General 1994 Constitutional general appearance Overall: well nourished 05/20/2016 None Full Exam - General 1994 Eyes conjunctiva/eyelids Overall: conjunctiva clear 05/20/2016 None Full Exam - General 1994 Eyes conjunctiva/eyelids Overall: cornea clear 05/20/2016 None Full Exam - General 1994 Eyes conjunctiva/eyelids Overall: eyelids normal 05/20/2016 None Full Exam - General 1994 Eyes pupils and irises Overall: pupils equal, round, reactive to light and accomodation 05/20/2016 None Full Exam - General 1994 Ears/Nose/Throat otoscopic exam Overall: external auditory canals clear 05/20/2016 None Full Exam - General 1994 Ears/Nose/Throat otoscopic exam Overall: tympanic membranes clear 05/20/2016 None Full Exam - General 1994 Ears/Nose/Throat lips/teeth/gingiva Overall: benign lips 05/20/2016 None Full Exam - General 1994 Ears/Nose/Throat lips/teeth/gingiva Overall: normal dentition 05/20/2016 None Full Exam - General 1994 Ears/Nose/Throat lips/teeth/gingiva Overall: benign gingiva 05/20/2016 None Full Exam - General 1994 Ears/Nose/Throat lips/teeth/gingiva Overall: no masses 05/20/2016 None Full Exam - General 1994 Ears/Nose/Throat oral cavity/pharynx/larynx Overall: oral mucosa clear 05/20/2016 None Full Exam - General 1994 Ears/Nose/Throat oral cavity/pharynx/larynx Overall: oropharyngeal mucosa clear 05/20/2016 None Full Exam - General 1994 Ears/Nose/Throat oral cavity/pharynx/larynx Overall: no masses 05/20/2016 None Full Exam - General 1994 Respiratory auscultation Overall: breath sounds clear bilaterally 05/20/2016 None Full Exam - General 1994 Respiratory respiratory effort/rhythm Overall: no retractions 05/20/2016 None Full Exam - General 1994 Respiratory respiratory effort/rhythm Overall: normal rate 05/20/2016 None Full Exam - General 1994 Cardiovascular extremities Overall: no clubbing 05/20/2016 None Full Exam - General 1994 Cardiovascular auscultation of heart Overall: regular rate 05/20/2016 None Full Exam - General 1994 Cardiovascular auscultation of heart Overall: normal heart sounds 05/20/2016 None Full Exam - General 1994 Cardiovascular auscultation of heart Overall: no murmurs 05/20/2016 None Full Exam - General 1994 Musculoskeletal gait and station Overall: normal gait 05/20/2016 None Full Exam - General 1994 Musculoskeletal gait and station Overall: normal station 05/20/2016 None Full Exam - General 1994 Integument inspection of skin Overall: no rash, lesions 05/20/2016 None Full Exam - General 1994 Psychiatric orientation/consciousness Overall: oriented to person, place and time 05/20/2016 None Full Exam - General 1994 Psychiatric behavior/psychomotor activity Overall: no tics, normal psychomotor activity 05/20/2016 None Full Exam - General 1994 Psychiatric appearance Overall: well-groomed, good eye contact 05/20/2016 None Full Exam - General 1994 Abdomen abdominal exam Overall: no tenderness 05/20/2016 None Full Exam - General 1994 Abdomen abdominal exam Overall: normal bowel sounds 05/20/2016 None Full Exam - General 1994 Constitutional general appearance Overall: well developed 12/11/2015 None Full Exam - General 1994 Constitutional general appearance Overall: in no acute distress 12/11/2015 None Full Exam - General 1994 Constitutional general appearance Overall: well nourished 12/11/2015 None Full Exam - General 1994 Eyes conjunctiva/eyelids Overall: conjunctiva clear 12/11/2015 None Full Exam - General 1994 Eyes conjunctiva/eyelids Overall: cornea clear 12/11/2015 None Full Exam - General 1994 Eyes conjunctiva/eyelids Overall: eyelids normal 12/11/2015 None Full Exam - General 1994 Eyes pupils and irises Overall: pupils equal, round, reactive to light and accomodation 12/11/2015 None Full Exam - General 1994 Ears/Nose/Throat otoscopic exam Overall: external auditory canals clear 12/11/2015 None Full Exam - General 1994 Ears/Nose/Throat otoscopic exam Overall: tympanic membranes clear 12/11/2015 None Full Exam - General 1994 Ears/Nose/Throat lips/teeth/gingiva Overall: benign lips 12/11/2015 None Full Exam - General 1994 Ears/Nose/Throat lips/teeth/gingiva Overall: normal dentition 12/11/2015 None Full Exam - General 1994 Ears/Nose/Throat lips/teeth/gingiva Overall: benign gingiva 12/11/2015 None Full Exam - General 1994 Ears/Nose/Throat lips/teeth/gingiva Overall: no masses 12/11/2015 None Full Exam - General 1994 Ears/Nose/Throat oral cavity/pharynx/larynx Overall: oral mucosa clear 12/11/2015 None Full Exam - General 1994 Ears/Nose/Throat oral cavity/pharynx/larynx Overall: oropharyngeal mucosa clear 12/11/2015 None Full Exam - General 1994 Ears/Nose/Throat oral cavity/pharynx/larynx Overall: no masses 12/11/2015 None Full Exam - General 1994 Respiratory auscultation Overall: breath sounds clear bilaterally 12/11/2015 None Full Exam - General 1994 Respiratory respiratory effort/rhythm Overall: no retractions 12/11/2015 None Full Exam - General 1994 Respiratory respiratory effort/rhythm Overall: normal rate 12/11/2015 None Full Exam - General 1994 Cardiovascular extremities Overall: no clubbing 12/11/2015 None Full Exam - General 1994 Cardiovascular auscultation of heart Overall: regular rate 12/11/2015 None Full Exam - General 1994 Cardiovascular auscultation of heart Overall: normal heart sounds 12/11/2015 None Full Exam - General 1994 Cardiovascular auscultation of heart Overall: no murmurs 12/11/2015 None Full Exam - General 1994 Musculoskeletal gait and station Overall: normal gait 12/11/2015 None Full Exam - General 1994 Musculoskeletal gait and station Overall: normal station 12/11/2015 None Full Exam - General 1994 Integument inspection of skin Overall: no rash, lesions 12/11/2015 None Full Exam - General 1994 Psychiatric orientation/consciousness Overall: oriented to person, place and time 12/11/2015 None Full Exam - General 1994 Psychiatric appearance Overall: well-groomed, good eye contact 12/11/2015 None Full Exam - General 1994 Abdomen abdominal exam Overall: no tenderness 12/11/2015 None Full Exam - General 1994 Abdomen abdominal exam Overall: normal bowel sounds 12/11/2015 None Full Exam - General 1994 Lymphatic neck nodes Overall: anterior cervical chain benign 12/11/2015 None Full Exam - General 1994 Lymphatic neck nodes Overall: posterior cervical chain benign 12/11/2015 None Full Exam - General 1994 Neurologic gait Overall: no ataxia, no unsteadiness 12/11/2015 None Full Exam - General 1994 Neurologic cranial nerves Overall: crainial nerves 2 - 12 grossly intact 12/11/2015 None Full Exam - General 1994 Psychiatric mood and affect Overall: normal mood and affect 12/11/2015 None Full Exam - General 1994 Psychiatric speech Overall: normal quality, no aphasia 12/11/2015 None Full Exam - General 1994 Psychiatric speech Overall: normal quality, quantity, r ate 12/11/2015 None Full Exam - Dermatology Constitutional general appearance Overall: well nourished 10/06/2015 None Full Exam - Dermatology Constitutional general appearance Overall: well developed 10/06/2015 None Full Exam - Dermatology Constitutional general appearance Overall: in no acute distress 10/06/2015 None Full Exam - Dermatology Constitutional general appearance Overall: of normal body habitus 10/06/2015 None Full Exam - Dermatology Constitutional general appearance Overall: well groomed 10/06/2015 None Full Exam - Dermatology Psychiatric orientation Overall: oriented to person, place and time 10/06/2015 None Full Exam - Dermatology Integument insp & palp - left lower extremity Location: on the foot 10/06/2015 blister right great toe- drained today with 27g needle with small amount of serous fluid-cleansed and covered with neosporin and bandaid. Full Exam - General 1994 Constitutional general appearance Overall: well nourished 09/21/2015 None Full Exam - General 1994 Constitutional general appearance Overall: well developed 09/21/2015 None Full Exam - General 1994 Constitutional general appearance Overall: in no acute distress 09/21/2015 None Full Exam - General 1994 Eyes pupils and irises Overall: pupils equal, round, reactive to light and accomodation 09/21/2015 None Full Exam - General 1994 Eyes conjunctiva/eyelids Overall: conjunctiva clear 09/21/2015 None Full Exam - General 1994 Eyes conjunctiva/eyelids Overall: eyelids normal 09/21/2015 None Full Exam - General 1994 Eyes conjunctiva/eyelids Overall: cornea clear 09/21/2015 None Full Exam - General 1994 Ears/Nose/Throat lips/teeth/gingiva Overall: benign gingiva 09/21/2015 None Full Exam - General 1994 Ears/Nose/Throat lips/teeth/gingiva Overall: no masses 09/21/2015 None Full Exam - General 1994 Ears/Nose/Throat lips/teeth/gingiva Overall: normal dentition 09/21/2015 None Full Exam - General 1994 Ears/Nose/Throat lips/teeth/gingiva Overall: benign lips 09/21/2015 None Full Exam - General 1994 Ears/Nose/Throat oral cavity/pharynx/larynx Overall: oropharyngeal mucosa clear 09/21/2015 None Full Exam - General 1994 Ears/Nose/Throat oral cavity/pharynx/larynx Overall: no masses 09/21/2015 None Full Exam - General 1994 Ears/Nose/Throat oral cavity/pharynx/larynx Overall: oral mucosa clear 09/21/2015 None Full Exam - General 1994 Ears/Nose/Throat otoscopic exam Overall: tympanic membranes clear 09/21/2015 None Full Exam - General 1994 Ears/Nose/Throat otoscopic exam Overall: external auditory canals clear 09/21/2015 None Full Exam - General 1994 Respiratory auscultation Overall: breath sounds clear bilaterally 09/21/2015 None Full Exam - General 1994 Respiratory respiratory effort/rhythm Overall: normal rate 09/21/2015 None Full Exam - General 1994 Respiratory respiratory effort/rhythm Overall: no retractions 09/21/2015 None Full Exam - General 1994 Cardiovascular extremities Overall: no clubbing 09/21/2015 None Full Exam - General 1994 Cardiovascular auscultation of heart Overall: regular rate 09/21/2015 None Full Exam - General 1994 Cardiovascular auscultation of heart Overall: normal heart sounds 09/21/2015 None Full Exam - General 1994 Cardiovascular auscultation of heart Overall: no murmurs 09/21/2015 None Full Exam - General 1994 Musculoskeletal gait and station Overall: normal station 09/21/2015 None Full Exam - General 1994 Musculoskeletal gait and station Overall: normal gait 09/21/2015 None Full Exam - General 1994 Integument inspection of skin Overall: no rash, lesions 09/21/2015 None Full Exam - General 1994 Psychiatric orientation/consciousness Overall: oriented to person, place and time 09/21/2015 None Full Exam - General 1994 Psychiatric behavior/psychomotor activity Overall: no tics, normal psychomotor activity 09/21/2015 None Full Exam - General 1994 Psychiatric appearance Overall: well-groomed, good eye contact 09/21/2015 None Full Exam - General 1994 Constitutional general appearance Overall: well developed 07/26/2014 None Full Exam - General 1994 Constitutional general appearance Overall: in no acute distress 07/26/2014 None Full Exam - General 1994 Constitutional general appearance Overall: well nourished 07/26/2014 None Full Exam - General 1994 Eyes conjunctiva/eyelids Overall: conjunctiva clear 07/26/2014 None Full Exam - General 1994 Eyes conjunctiva/eyelids Overall: cornea clear 07/26/2014 None Full Exam - General 1994 Eyes conjunctiva/eyelids Overall: eyelids normal 07/26/2014 None Full Exam - General 1994 Eyes pupils and irises Overall: pupils equal, round, reactive to light and accomodation 07/26/2014 None Full Exam - General 1994 Ears/Nose/Throat otoscopic exam Overall: external auditory canals clear 07/26/2014 None Full Exam - General 1994 Ears/Nose/Throat otoscopic exam Overall: tympanic membranes clear 07/26/2014 None Full Exam - General 1994 Ears/Nose/Throat oral cavity/pharynx/larynx Overall: oral mucosa clear 07/26/2014 None Full Exam - General 1994 Ears/Nose/Throat oral cavity/pharynx/larynx Overall: oropharyngeal mucosa clear 07/26/2014 None Full Exam - General 1994 Ears/Nose/Throat oral cavity/pharynx/larynx Overall: no masses 07/26/2014 None Full Exam - General 1994 Respiratory auscultation Overall: breath sounds clear bilaterally 07/26/2014 None Full Exam - General 1994 Respiratory respiratory effort/rhythm Overall: no retractions 07/26/2014 None Full Exam - General 1994 Respiratory respiratory effort/rhythm Overall: normal rate 07/26/2014 None Full Exam - General 1994 Cardiovascular extremities Overall: no clubbing 07/26/2014 None Full Exam - General 1994 Cardiovascular auscultation of heart Overall: regular rate 07/26/2014 None Full Exam - General 1994 Cardiovascular auscultation of heart Overall: normal heart sounds 07/26/2014 None Full Exam - General 1994 Cardiovascular auscultation of heart Overall: no murmurs 07/26/2014 None Full Exam - General 1994 Abdomen abdominal exam Overall: no tenderness 07/26/2014 None Full Exam - General 1994 Abdomen abdominal exam Overall: normal bowel sounds 07/26/2014 None Full Exam - General 1994 Lymphatic neck nodes Overall: anterior cervical chain benign 07/26/2014 None Full Exam - General 1994 Lymphatic neck nodes Overall: posterior cervical chain benign 07/26/2014 None Full Exam - General 1994 Integument inspection of skin Overall: no rash, lesions 07/26/2014 None Full Exam - General 1994 Neurologic gait Overall: no ataxia, no unsteadiness 07/26/2014 None Full Exam - General 1994 Neurologic cranial nerves Overall: crainial nerves 2 - 12 grossly intact 07/26/2014 None Full Exam - General 1994 Psychiatric orientation/consciousness Overall: oriented to person, place and time 07/26/2014 None Full Exam - General 1994 Psychiatric mood and affect Overall: normal mood and affect 07/26/2014 None Full Exam - General 1994 Psychiatric mood and affect Mood: happy 07/26/2014 None Full Exam - General 1994 Constitutional general appearance Overall: well developed 01/25/2014 None Full Exam - General 1994 Constitutional general appearance Overall: in no acute distress 01/25/2014 None Full Exam - General 1994 Constitutional general appearance Overall: well nourished 01/25/2014 None Full Exam - General 1994 Eyes conjunctiva/eyelids Overall: conjunctiva clear 01/25/2014 None Full Exam - General 1994 Eyes conjunctiva/eyelids Overall: cornea clear 01/25/2014 None Full Exam - General 1994 Eyes conjunctiva/eyelids Overall: eyelids normal 01/25/2014 None Full Exam - General 1994 Eyes pupils and irises Overall: pupils equal, round, reactive to light and accomodation 01/25/2014 None Full Exam - General 1994 Ears/Nose/Throat otoscopic exam Overall: external auditory canals clear 01/25/2014 None Full Exam - General 1994 Ears/Nose/Throat otoscopic exam Overall: tympanic membranes clear 01/25/2014 None Full Exam - General 1994 Ears/Nose/Throat oral cavity/pharynx/larynx Overall: oral mucosa clear 01/25/2014 None Full Exam - General 1994 Ears/Nose/Throat oral cavity/pharynx/larynx Overall: oropharyngeal mucosa clear 01/25/2014 None Full Exam - General 1994 Ears/Nose/Throat oral cavity/pharynx/larynx Overall: no masses 01/25/2014 None Full Exam - General 1994 Respiratory auscultation Overall: breath sounds clear bilaterally 01/25/2014 None Full Exam - General 1994 Respiratory respiratory effort/rhythm Overall: no retractions 01/25/2014 None Full Exam - General 1994 Respiratory respiratory effort/rhythm Overall: normal rate 01/25/2014 None Full Exam - General 1994 Cardiovascular extremities Overall: no clubbing 01/25/2014 None Full Exam - General 1994 Cardiovascular auscultation of heart Overall: regular rate 01/25/2014 None Full Exam - General 1994 Cardiovascular auscultation of heart Overall: normal heart sounds 01/25/2014 None Full Exam - General 1994 Cardiovascular auscultation of heart Overall: no murmurs 01/25/2014 None Full Exam - General 1994 Abdomen abdominal exam Overall: no tenderness 01/25/2014 None Full Exam - General 1994 Abdomen abdominal exam Overall: normal bowel sounds 01/25/2014 None Full Exam - General 1994 Lymphatic neck nodes Overall: anterior cervical chain benign 01/25/2014 None Full Exam - General 1994 Lymphatic neck nodes Overall: posterior cervical chain benign 01/25/2014 None Full Exam - General 1994 Neurologic gait Overall: no ataxia, no unsteadiness 01/25/2014 None Full Exam - General 1994 Neurologic cranial nerves Overall: crainial nerves 2 - 12 grossly intact 01/25/2014 None Full Exam - General 1994 Psychiatric orientation/consciousness Overall: oriented to person, place and time 01/25/2014 None Full Exam - General 1994 Psychiatric mood and affect Overall: normal mood and affect 01/25/2014 None Full Exam - General 1994 Psychiatric mood and affect Mood: happy 01/25/2014 None Full Exam - General 1994 Integument inspection of skin Overall: no rash, lesions 01/25/2014 None Full Exam - General 1994 Constitutional general appearance Overall: well developed 01/10/2014 None Full Exam - General 1994 Constitutional general appearance Overall: in no acute distress 01/10/2014 None Full Exam - General 1994 Constitutional general appearance Overall: well nourished 01/10/2014 None Full Exam - General 1994 Eyes pupils and irises Overall: pupils equal, round, reactive to light and accomodation 01/10/2014 None Full Exam - General 1994 Ears/Nose/Throat otoscopic exam Overall: external auditory canals clear 01/10/2014 None Full Exam - General 1994 Ears/Nose/Throat oral cavity/pharynx/larynx Overall: oral mucosa clear 01/10/2014 None Full Exam - General 1994 Ears/Nose/Throat oral cavity/pharynx/larynx Overall: oropharyngeal mucosa clear 01/10/2014 None Full Exam - General 1994 Ears/Nose/Throat oral cavity/pharynx/larynx Overall: no masses 01/10/2014 None Full Exam - General 1994 Respiratory auscultation Upper lung field: a normal exam 01/10/2014 None Full Exam - General 1994 Respiratory auscultation Lower lung field: a normal exam 01/10/2014 None Full Exam - General 1994 Respiratory respiratory effort/rhythm Overall: no retractions 01/10/2014 None Full Exam - General 1994 Respiratory respiratory effort/rhythm Overall: normal rate 01/10/2014 None Full Exam - General 1994 Cardiovascular extremities Overall: no clubbing 01/10/2014 None Full Exam - General 1994 Cardiovascular auscultation of heart Overall: regular rate 01/10/2014 None Full Exam - General 1994 Cardiovascular auscultation of heart Overall: normal heart sounds 01/10/2014 None Full Exam - General 1994 Cardiovascular auscultation of heart Overall: no murmurs 01/10/2014 None Full Exam - General 1994 Abdomen abdominal exam Overall: normal bowel sounds 01/10/2014 None Full Exam - General 1994 Lymphatic neck nodes Overall: anterior cervical chain benign 01/10/2014 None Full Exam - General 1994 Lymphatic neck nodes Overall: posterior cervical chain benign 01/10/2014 None Full Exam - General 1994 Neurologic cranial nerves Overall: crainial nerves 2 - 12 grossly intact 01/10/2014 None Full Exam - General 1994 Psychiatric orientation/consciousness Overall: oriented to person, place and time 01/10/2014 None Full Exam - General 1994 Psychiatric mood and affect Overall: normal mood and affect 01/10/2014 None Full Exam - General 1994 Psychiatric mood and affect Mood: happy 01/10/2014 None Full Exam - General 1994 Ears/Nose/Throat otoscopic exam Tympanic membrane: tympanosclerosis 01/10/2014 None Full Exam - General 1994 Constitutional general appearance Overall: well developed 09/23/2013 None Full Exam - General 1994 Constitutional general appearance Overall: in no acute distress 09/23/2013 None Full Exam - General 1994 Constitutional general appearance Overall: well nourished 09/23/2013 None Full Exam - General 1994 Eyes pupils and irises Overall: pupils equal, round, reactive to light and accomodation 09/23/2013 None Full Exam - General 1994 Ears/Nose/Throat otoscopic exam Overall: external auditory canals clear 09/23/2013 None Full Exam - General 1994 Ears/Nose/Throat oral cavity/pharynx/larynx Overall: oral mucosa clear 09/23/2013 None Full Exam - General 1994 Ears/Nose/Throat oral cavity/pharynx/larynx Overall: oropharyngeal mucosa clear 09/23/2013 None Full Exam - General 1994 Ears/Nose/Throat oral cavity/pharynx/larynx Overall: no masses 09/23/2013 None Full Exam - General 1994 Respiratory auscultation Upper lung field: a normal exam 09/23/2013 None Full Exam - General 1994 Respiratory respiratory effort/rhythm Overall: no retractions 09/23/2013 None Full Exam - General 1994 Respiratory respiratory effort/rhythm Overall: normal rate 09/23/2013 None Full Exam - General 1994 Cardiovascular extremities Overall: no clubbing 09/23/2013 None Full Exam - General 1994 Cardiovascular auscultation of heart Overall: regular rate 09/23/2013 None Full Exam - General 1994 Cardiovascular auscultation of heart Overall: normal heart sounds 09/23/2013 None Full Exam - General 1994 Cardiovascular auscultation of heart Overall: no murmurs 09/23/2013 None Full Exam - General 1994 Abdomen abdominal exam Overall: normal bowel sounds 09/23/2013 None Full Exam - General 1994 Lymphatic neck nodes Overall: anterior cervical chain benign 09/23/2013 None Full Exam - General 1994 Lymphatic neck nodes Overall: posterior cervical chain benign 09/23/2013 None Full Exam - General 1994 Neurologic cranial nerves Overall: crainial nerves 2 - 12 grossly intact 09/23/2013 None Full Exam - General 1994 Psychiatric orientation/consciousness Overall: oriented to person, place and time 09/23/2013 None Full Exam - General 1994 Psychiatric mood and affect Overall: normal mood and affect 09/23/2013 None Full Exam - General 1994 Psychiatric mood and affect Mood: happy 09/23/2013 None Full Exam - General 1994 Ears/Nose/Throat otoscopic exam Tympanic membrane: tympanosclerosis 09/23/2013 with cerumen on right on TM. Full Exam - General 1994 Respiratory auscultation Lower lung field: a normal exam 09/23/2013 None Full Exam - General 1994 Constitutional general appearance Overall: well developed 09/09/2013 None Full Exam - General 1994 Constitutional general appearance Overall: in no acute distress 09/09/2013 None Full Exam - General 1994 Constitutional general appearance Overall: well nourished 09/09/2013 None Full Exam - General 1994 Eyes pupils and irises Overall: pupils equal, round, reactive to light and accomodation 09/09/2013 None Full Exam - General 1994 Ears/Nose/Throat otoscopic exam Overall: external auditory canals clear 09/09/2013 None Full Exam - General 1994 Ears/Nose/Throat otoscopic exam Overall: tympanic membranes clear 09/09/2013 None Full Exam - General 1994 Ears/Nose/Throat oral cavity/pharynx/larynx Overall: oral mucosa clear 09/09/2013 None Full Exam - General 1995 Ears/Nose/Throat oral cavity/pharynx/larynx Overall: oropharyngeal mucosa clear 09/09/2013 None Full Exam - General 1994 Ears/Nose/Throat oral cavity/pharynx/larynx Overall: no masses 09/09/2013 None Full Exam - General 1994 Respiratory respiratory effort/rhythm Overall: no retractions 09/09/2013 None Full Exam - General 1994 Respiratory respiratory effort/rhythm Overall: normal rate 09/09/2013 None Full Exam - General 1994 Cardiovascular extremities Overall: no clubbing 09/09/2013 None Full Exam - General 1994 Cardiovascular auscultation of heart Overall: regular rate 09/09/2013 None Full Exam - General 1994 Cardiovascular auscultation of heart Overall: normal heart sounds 09/09/2013 None Full Exam - General 1994 Cardiovascular auscultation of heart Overall: no murmurs 09/09/2013 None Full Exam - General 1994 Abdomen abdominal exam Overall: no tenderness 09/09/2013 None Full Exam - General 1994 Abdomen abdominal exam Overall: normal bowel sounds 09/09/2013 None Full Exam - General 1994 Lymphatic neck nodes Overall: anterior cervical chain benign 09/09/2013 None Full Exam - General 1994 Lymphatic neck nodes Overall: posterior cervical chain benign 09/09/2013 None Full Exam - General 1994 Neurologic cranial nerves Overall: crainial nerves 2 - 12 grossly intact 09/09/2013 None Full Exam - General 1994 Psychiatric orientation/consciousness Overall: oriented to person, place and time 09/09/2013 None Full Exam - General 1994 Psychiatric mood and affect Overall: normal mood and affect 09/09/2013 None Full Exam - General 1994 Psychiatric mood and affect Mood: happy 09/09/2013 None Full Exam - General 1994 Respiratory auscultation Lower lung field: crackles 09/09/2013 None Full Exam - General 1994 Respiratory auscultation Upper lung field: a normal exam 09/09/2013 None Full Exam - General 1994 Constitutional general appearance Overall: well nourished 06/03/2013 None Full Exam - General 1994 Constitutional general appearance Overall: well developed 06/03/2013 None Full Exam - General 1994 Constitutional general appearance Overall: in no acute distress 06/03/2013 None Full Exam - General 1994 Eyes pupils and irises Overall: pupils equal, round, reactive to light and accomodation 06/03/2013 None Full Exam - General 1994 Eyes conjunctiva/eyelids Overall: conjunctiva clear 06/03/2013 None Full Exam - General 1994 Eyes conjunctiva/eyelids Overall: eyelids normal 06/03/2013 None Full Exam - General 1994 Eyes conjunctiva/eyelids Overall: cornea clear 06/03/2013 None Full Exam - General 1994 Ears/Nose/Throat oral cavity/pharynx/larynx Overall: oropharyngeal mucosa clear 06/03/2013 None Full Exam - General 1994 Ears/Nose/Throat oral cavity/pharynx/larynx Overall: no masses 06/03/2013 None Full Exam - General 1994 Ears/Nose/Throat oral cavity/pharynx/larynx Overall: oral mucosa clear 06/03/2013 None Full Exam - General 1994 Ears/Nose/Throat otoscopic exam Overall: tympanic membranes clear 06/03/2013 None Full Exam - General 1994 Ears/Nose/Throat otoscopic exam Overall: external auditory canals clear 06/03/2013 None Full Exam - General 1994 Respiratory respiratory effort/rhythm Overall: normal rate 06/03/2013 None Full Exam - General 1994 Respiratory respiratory effort/rhythm Overall: no retractions 06/03/2013 None Full Exam - General 1995 Respiratory auscultation Overall: breath sounds clear bilaterally 06/03/2013 None Full Exam - General 1995 Cardiovascular auscultation of heart Overall: regular rate 06/03/2013 None Full Exam - General 1995 Cardiovascular auscultation of heart Overall: normal heart sounds 06/03/2013 None Full Exam - General 1995 Cardiovascular auscultation of heart Overall: no murmurs 06/03/2013 None Full Exam - General 1995 Psychiatric orientation/consciousness Overall: oriented to person, place and time 06/03/2013 None Full Exam - General 1995 Neurologic gait Overall: no ataxia, no unsteadiness 06/03/2013 None Full Exam - General 1995 Abdomen abdominal exam Overall: no tenderness 06/03/2013 None Full Exam - General 1995 Abdomen abdominal exam Overall: normal bowel sounds 06/03/2013 None Full Exam - General 1994 Cardiovascular extremities Overall: no clubbing 06/03/2013 None Full Exam - General 1994 Lymphatic neck nodes Overall: anterior cervical chain benign 06/03/2013 None Full Exam - General 1994 Lymphatic neck nodes Overall: posterior cervical chain benign 06/03/2013 None Full Exam - General 1994 Neurologic cranial nerves Overall: crainial nerves 2 - 12 grossly intact 06/03/2013 None Full Exam - General 1994 Psychiatric mood and affect Overall: normal mood and affect 06/03/2013 None Full Exam - General 1994 Psychiatric mood and affect Mood: happy 06/03/2013 None Full Exam - General 1994 Constitutional general appearance Overall: well developed 02/04/2013 None Full Exam - General 1994 Constitutional general appearance Overall: in no acute distress 02/04/2013 None Full Exam - General 1994 Constitutional general appearance Overall: well nourished 02/04/2013 None Full Exam - General 1994 Respiratory auscultation Overall: breath sounds clear bilaterally 02/04/2013 None Full Exam - General 1994 Cardiovascular auscultation of heart Overall: regular rate 02/04/2013 None Full Exam - General 1994 Cardiovascular auscultation of heart Overall: normal heart sounds 02/04/2013 None Full Exam - General 1994 Psychiatric orientation/consciousness Overall: oriented to person, place and time 02/04/2013 None Full Exam - General 1994 Psychiatric mood and affect Overall: normal mood and affect 02/04/2013 None Full Exam - General 1994 Neurologic coordination Overall: no dysdiadochokinesis, no dysmetria 02/04/2013 None Full Exam - General 1994 Neurologic coordination Overall: no tremors 02/04/2013 None Full Exam - General 1994 Neurologic motor Overall: normal bulk, tone 02/04/2013 None Full Exam - General 1994 Constitutional general appearance Overall: well developed 12/31/2012 None Full Exam - General 1995 Constitutional general appearance Overall: in no acute distress 12/31/2012 None Full Exam - General 1994 Constitutional general appearance Overall: well nourished 12/31/2012 None Full Exam - General 1994 Eyes pupils and irises Overall: pupils equal, round, reactive to light and accomodation 12/31/2012 None Full Exam - General 1995 Ears/Nose/Throat otoscopic exam Overall: external auditory canals clear 12/31/2012 None Full Exam - General 1995 Ears/Nose/Throat otoscopic exam Overall: tympanic membranes clear 12/31/2012 None Full Exam - General 1995 Ears/Nose/Throat oral cavity/pharynx/larynx Overall: oral mucosa clear 12/31/2012 None Full Exam - General 1994 Ears/Nose/Throat oral cavity/pharynx/larynx Overall: oropharyngeal mucosa clear 12/31/2012 None Full Exam - General 1995 Ears/Nose/Throat oral cavity/pharynx/larynx Overall: no masses 12/31/2012 None Full Exam - General 1994 Respiratory auscultation Overall: breath sounds clear bilaterally 12/31/2012 None Full Exam - General 1994 Respiratory respiratory effort/rhythm Overall: no retractions 12/31/2012 None Full Exam - General 1994 Respiratory respiratory effort/rhythm Overall: normal rate 12/31/2012 None Full Exam - General 1994 Cardiovascular extremities Overall: no clubbing 12/31/2012 None Full Exam - General 1994 Cardiovascular auscultation of heart Overall: regular rate 12/31/2012 None Full Exam - General 1994 Cardiovascular auscultation of heart Overall: normal heart sounds 12/31/2012 None Full Exam - General 1994 Cardiovascular auscultation of heart Overall: no murmurs 12/31/2012 None Full Exam - General 1994 Abdomen abdominal exam Overall: no tenderness 12/31/2012 None Full Exam - General 1994 Abdomen abdominal exam Overall: normal bowel sounds 12/31/2012 None Full Exam - General 1994 Lymphatic neck nodes Overall: anterior cervical chain benign 12/31/2012 None Full Exam - General 1994 Lymphatic neck nodes Overall: posterior cervical chain benign 12/31/2012 None Full Exam - General 1994 Neurologic cranial nerves Overall: crainial nerves 2 - 12 grossly intact 12/31/2012 None Full Exam - General 1994 Psychiatric orientation/consciousness Overall: oriented to person, place and time 12/31/2012 None Full Exam - General 1994 Psychiatric mood and affect Overall: normal mood and affect 12/31/2012 None Full Exam - General 1995 Psychiatric mood and affect Mood: happy 12/31/2012 None Full Exam - General 1995 Ears/Nose/Throat otoscopic exam Overall: tympanic membranes clear 10/01/2012 None Full Exam - General 1995 Ears/Nose/Throat oral cavity/pharynx/larynx Overall: oral mucosa clear 10/01/2012 None Full Exam - General 1995 Ears/Nose/Throat oral cavity/pharynx/larynx Overall: oropharyngeal mucosa clear 10/01/2012 None Full Exam - General 1995 Ears/Nose/Throat oral cavity/pharynx/larynx Overall: no masses 10/01/2012 None Full Exam - General 1994 Respiratory auscultation Overall: breath sounds clear bilaterally 10/01/2012 None Full Exam - General 1994 Respiratory respiratory effort/rhythm Overall: no retractions 10/01/2012 None Full Exam - General 1994 Respiratory respiratory effort/rhythm Overall: normal rate 10/01/2012 None Full Exam - General 1994 Cardiovascular extremities Overall: no clubbing 10/01/2012 None Full Exam - General 1994 Cardiovascular auscultation of heart Overall: regular rate 10/01/2012 None Full Exam - General 1994 Cardiovascular auscultation of heart Overall: normal heart sounds 10/01/2012 None Full Exam - General 1994 Cardiovascular auscultation of heart Overall: no murmurs 10/01/2012 None Full Exam - General 1994 Abdomen abdominal exam Overall: no tenderness 10/01/2012 None Full Exam - General 1994 Abdomen abdominal exam Overall: normal bowel sounds 10/01/2012 None Full Exam - General 1994 Constitutional general appearance Overall: well developed 10/01/2012 None Full Exam - General 1994 Constitutional general appearance Overall: in no acute distress 10/01/2012 None Full Exam - General 1994 Constitutional general appearance Overall: well nourished 10/01/2012 None Full Exam - General 1994 Eyes pupils and irises Overall: pupils equal, round, reactive to light and accomodation 10/01/2012 None Full Exam - General 1994 Ears/Nose/Throat otoscopic exam Overall: external auditory canals clear 10/01/2012 None Full Exam - General 1995 Lymphatic neck nodes Overall: anterior cervical chain benign 10/01/2012 None Full Exam - General 1995 Lymphatic neck nodes Overall: posterior cervical chain benign 10/01/2012 None Full Exam - General 1995 Neurologic cranial nerves Overall: crainial nerves 2 - 12 grossly intact 10/01/2012 None Full Exam - General 1995 Psychiatric orientation/consciousness Overall: oriented to person, place and time 10/01/2012 None Full Exam - General 1995 Psychiatric mood and affect Overall: normal mood and affect 10/01/2012 None Full Exam - General 1995 Psychiatric mood and affect Mood: happy 10/01/2012 None Full Exam - General 1995 Constitutional general appearance Overall: well nourished 09/03/2012 None Full Exam - General 1995 Constitutional general appearance Overall: well developed 09/03/2012 None Full Exam - General 1994 Constitutional general appearance Overall: in no acute distress 09/03/2012 None Full Exam - General 1994 Respiratory respiratory effort/rhythm Overall: no retractions 09/03/2012 None Full Exam - General 1994 Lymphatic neck nodes Overall: anterior cervical chain benign 09/03/2012 None Full Exam - General 1994 Lymphatic neck nodes Overall: posterior cervical chain benign 09/03/2012 None Full Exam - General 1994 Neurologic cranial nerves Overall: crainial nerves 2 - 12 grossly intact 09/03/2012 None Full Exam - General 1994 Psychiatric mood and affect Mood: happy 09/03/2012 None Full Exam - General 1994 Psychiatric mood and affect Overall: normal mood and affect 09/03/2012 None Full Exam - General 1994 Psychiatric orientation/consciousness Overall: oriented to person, place and time 09/03/2012 None Full Exam - General 1994 Eyes pupils and irises Overall: pupils equal, round, reactive to light and accomodation 09/03/2012 None Full Exam - General 1995 Ears/Nose/Throat otoscopic exam Overall: tympanic membranes clear 09/03/2012 None Full Exam - General 1994 Ears/Nose/Throat otoscopic exam Overall: external auditory canals clear 09/03/2012 None Full Exam - General 1995 Ears/Nose/Throat oral cavity/pharynx/larynx Overall: oropharyngeal mucosa clear 09/03/2012 None Full Exam - General 1995 Ears/Nose/Throat oral cavity/pharynx/larynx Overall: no masses 09/03/2012 None Full Exam - General 1994 Ears/Nose/Throat oral cavity/pharynx/larynx Overall: oral mucosa clear 09/03/2012 None Full Exam - General 1994 Cardiovascular auscultation of heart Overall: regular rate 09/03/2012 None Full Exam - General 1994 Cardiovascular auscultation of heart Overall: normal heart sounds 09/03/2012 None Full Exam - General 1994 Cardiovascular auscultation of heart Overall: no murmurs 09/03/2012 None Full Exam - General 1994 Cardiovascular extremities Overall: no clubbing 09/03/2012 None Full Exam - General 1994 Abdomen abdominal exam Overall: no tenderness 09/03/2012 None Full Exam - General 1994 Abdomen abdominal exam Overall: normal bowel sounds 09/03/2012 None Full Exam - General 1994 Respiratory auscultation Overall: breath sounds clear bilaterally 09/03/2012 None Full Exam - General 1994 Respiratory respiratory effort/rhythm Overall: normal rate 09/03/2012 None Full Exam - General 1994 Musculoskeletal head and neck Overall: cervical spine benign 06/26/2011 None Full Exam - General 1994 Constitutional general appearance Overall: well nourished 06/26/2011 None Full Exam - General 1994 Constitutional general appearance Overall: well developed 06/26/2011 None Full Exam - General 1994 Constitutional general appearance Overall: in no acute distress 06/26/2011 None Full Exam - General 1994 Eyes pupils and irises Overall: pupils equal, round, reactive to light and accomodation 06/26/2011 None Full Exam - General 1994 Ears/Nose/Throat oral cavity/pharynx/larynx Overall: oropharyngeal mucosa clear 06/26/2011 None Full Exam - General 1994 Ears/Nose/Throat oral cavity/pharynx/larynx Overall: no masses 06/26/2011 None Full Exam - General 1994 Ears/Nose/Throat oral cavity/pharynx/larynx Overall: oral mucosa clear 06/26/2011 None Full Exam - General 1994 Ears/Nose/Throat otoscopic exam Overall: tympanic membranes clear 06/26/2011 None Full Exam - General 1994 Musculoskeletal head and neck Overall: head atraumatic 06/26/2011 None Full Exam - General 1994 Ears/Nose/Throat otoscopic exam Overall: external auditory canals clear 06/26/2011 None Full Exam - General 1994 Respiratory respiratory effort/rhythm Overall: normal rate 06/26/2011 None Full Exam - General 1994 Respiratory respiratory effort/rhythm Overall: no retractions 06/26/2011 None Full Exam - General 1994 Respiratory auscultation Overall: breath sounds clear bilaterally 06/26/2011 None Full Exam - General 1994 Cardiovascular auscultation of heart Overall: regular rate 06/26/2011 None Full Exam - General 1994 Cardiovascular auscultation of heart Overall: normal heart sounds 06/26/2011 None Full Exam - General 1994 Cardiovascular auscultation of heart Overall: no murmurs 06/26/2011 None Full Exam - General 1994 Cardiovascular extremities Overall: no clubbing 06/26/2011 None Full Exam - General 1994 Abdomen abdominal exam Overall: no tenderness 06/26/2011 None Full Exam - General 1994 Abdomen abdominal exam Overall: normal bowel sounds 06/26/2011 None Full Exam - General 1994 Psychiatric orientation/consciousness Overall: oriented to person, place and time 06/26/2011 None Full Exam - General 1994 Psychiatric mood and affect Overall: normal mood and affect 06/26/2011 None Full Exam - General 1994 Neurologic gait Overall: no ataxia, no unsteadiness 06/26/2011 None Procedures Procedure Codes Date THER/PROPH/DIAG INJ SC/IM CPT-4: 77688 12/20/2016 TRIAMCINOLONE ACET I [place] NOS CPT-4: J3301 12/20/2016 TRIAMCINOLONE ACET I [place] NOS CPT-4: J3301 12/17/2016 ROCEPHIN, PER 250 MG CPT-4: J0696 12/17/2016 PPPS, SUBSEQ VISIT CPT- 4: G0439 12/11/2015 ADMIN PNEUMOCOCCAL V ACCINE Assigned to/Merissa Dupont CT: [id number] CPT-4: [id number] 07/26/2014 Pneumococcal Polysac charide Vaccine, 23-Valent, Ad CPT-4: 50685 07/26/2014 ROCEPHIN, PER 250 MG CPT-4: J0696 01/10/2014 ROUTINE VENIPUNCTURE CPT-4: 13679 09/09/2013 PRESCRIP TRANSMIT A ERX SY CPT-4: G8553 02/04/2013 PRESCRIP TRANSMIT A ERX SY CPT-4: G8553 12/31/2012 THER/PROPH/DIAG INJ SC/IM CPT-4: 37129 06/26/2011 ROCEPHIN, PER 250 MG CPT-4: J0696 06/26/2011 Vital Signs Date Vital 06/30/2018 Blood Pressure 1: 120/80 Code: 8480-6 BMI: 28.2 Code: 86322-2 Heart Rate 1: 100 bpm Height: 5'1" SpO2: 94% Weight: 149 lbs 03/03/2018 Blood Pressure 1: 122/72 Code: 8480-6 BMI: 28.2 Code: 85941-7 Heart Rate 1: 100 bpm Height: 5'1" SpO2: 94% Weight: 149 lbs 01/27/2018 Blood Pressure 1: 112/70 Code: 8480-6 BMI: 27.8 Code: 53420-3 Heart Rate 1: 94 bpm Height: 5'1" SpO2: 94% Weight: 147 lbs 10/13/2017 Blood Pressure 1: 96/72 Code: 8480-6 BMI: 27.8 Code: 11394-6 Heart Rate 1: 106 bpm Height: 5'1" SpO2: 91% Weight: 147 lbs 08/07/2017 Blood Pressure 1: 120/80 Code: 8480-6 BMI: 29.7 Code: 04341-6 Heart Rate 1: 95 bpm Height: 5'1" SpO2: 94% Weight: 157 lbs 05/27/2017 Blood Pressure 1: 144/88 Code: 8480-6 BMI: 29.3 Code: 72486-6 Heart Rate 1: 94 bpm Height: 5'1" SpO2: 96% Weight: 155 lbs 04/10/2017 Blood Pressure 1: 140/88 Code: 8480-6 Blood Pressure 1: 126/78 Code: 8480-6 BMI: 28.5 Code: 83576-6 Heart Rate 1: 94 bpm Height: 5'1" SpO2: 96% Weight: 151 lbs 03/25/2017 Blood Pressure 1: 120/74 Code: 8480-6 03/18/2017 Blood Pressure 1: 150/98 Code: 8480-6 BMI: 28.6 Code: 07325-4 Heart Rate 1: 114 bpm Height: 5'1" SpO2: 96% Weight: 151 lbs 8 oz 12/17/2016 Blood Pressure 1: 146/86 Code: 8480-6 BMI: 26.1 Code: 03299-9 Heart Rate 1: 94 bpm Height: 5'1" SpO2: 95% Temperature: 36.1 (C ) / 97.0 (F) Weight: 138 lbs 09/17/2016 Blood Pressure 1: 148/88 Code: 8480-6 BMI: 26.5 Code: 47772-9 Heart Rate 1: 86 bpm Height: 5'1" SpO2: 93% Weight: 140 lbs 8 oz 05/20/2016 Blood Pressure 1: 128/82 Code: 8480-6 BMI: 26.3 Code: 77585-1 Heart Rate 1: 99 bpm Height: 5'1" SpO2: 92% Weight: 139 lbs 12/11/2015 Blood Pressure 1: 138/84 Code: 8480-6 BMI: 28.3 Code: 16387-1 Heart Rate 1: 95 bpm Height: 5'1" SpO2: 97% Waist Measure (cm): 89 cm Weight: 150 lbs 10/06/2015 Blood Pressure 1: 128/78 Code: 8480-6 BMI: 28.0 Code: 49270-7 Heart Rate 1: 94 bpm Height: 5'1" SpO2: 96% Weight: 148 lbs 09/21/2015 Blood Pressure 1: 152/78 Code: 8480-6 Blood Pressure 1: 126/94 Code: 8480-6 BMI: 28.0 Code: 71168-2 Heart Rate 1: 104 bpm Height: 5'1" SpO2: 98% Weight: 148 lbs 07/26/2014 Blood Pressure 1: 110/68 Code: 8480-6 BMI: 28.7 Code: 14147-3 Heart Rate 1: 98 bpm Height: 5'1" Weight: 152 lbs 01/25/2014 Blood Pressure 1: 120/78 Code: 8480-6 BMI: 29.3 Code: 63990-2 Heart Rate 1: 104 bpm Height: 5'1" Weight: 155 lbs 01/10/2014 Blood Pressure 1: 138/88 Code: 8480-6 Temperature: 37.1 (C) / 98.7 (F) Weight: 156 lbs 09/23/2013 Blood Pressure 1: 128/78 Code: 8480-6 BMI: 28.9 Code: 55461-8 Heart Rate 1: 88 bpm Height: 5'1" Weight: 153 lbs 09/09/2013 Blood Pressure 1: 110/68 Code: 8480-6 BMI: 28.5 Code: 28877-1 Heart Rate 1: 90 bpm Height: 5'1" SpO2: 90% Weight: 151 lbs 06/03/2013 Blood Pressure 1: 132/82 Code: 8480-6 BMI: 28.9 Code: 82365-0 Heart Rate 1: 88 bpm Height: 5'1" Weight: 153 lbs 02/04/2013 Blood Pressure 1: 140/90 Code: 8480-6 BMI: 29.3 Code: 65091-2 Heart Rate 1: 88 bpm Height: 5'1" Weight: 155 lbs 12/31/2012 Blood Pressure 1: 102/76 Code: 8480-6 BMI: 29.6 Code: 07671-6 Heart Rate 1: 112 bpm Height: 5'1" Weight: 156 lbs 8 oz 10/01/2012 Blood Pressure 1: 116/78 Code: 8480-6 BMI: 29.0 Code: 25414-6 Height: 5'2" Weight: 156 lbs 09/03/2012 Blood Pressure 1: 132/88 Code: 8480-6 Heart Rate 1: 88 bpm Weight: 154 lbs 8 oz 06/26/2011 Blood Pressure 1: 82/58 Code: 8480-6 BMI: 27.5 Code: 21557-7 Heart Rate 1: 80 bpm Height: 5'1" Respiratory Rate: 20 bpm Weight: 145 lbs 8 oz Functional Status No Functional Status data History of Present Illness Symptom Name Status Resu lt Effective Date Notes Quality primary hypert ension 06/30/2018 None Onset and Resolution o ngoing 06/30/2018 None Onset of Symptom durin g adulthood 06/30/2018 None Blood Pressure Values patient checking blood pressure at home - did not bring in readings 06/30/2018 None Alleviating Factors me dication 06/30/2018 None Pertinent Findings Den ies anxiety 06/30/2018 None Pertinent Findings Den ies decreased energy 06/30/2018 None Pertinent Findings Den ies dizziness 06/30/2018 None Pertinent Findings Den ies dyspnea 06/30/2018 None Pertinent Findings Den ies edema 06/30/2018 None Severity not consisten tly severe symptoms, the symptoms fluctuate from no symptoms to anxiety and headaches 06/30/2018 None Frequency of Episodes unchanged 06/30/2018 None Triggers no known asso ciated factors 06/30/2018 None hypertension Quality mily aida hypertension 03/03/2018 None hypertension Onset and Resolution ongoing 03/03/2018 None hypertension Onset of Symptom during adulthood 03/03/2018 None hypertension Blood Pressure Values patient checking blood pressure at home - did not bring in readings 03/03/2018 None hypertension Alleviating Factors medication 03/03/2018 None hypertension Pertinent Findings Denies anxiety 03/03/2018 None hypertension Pertinent Findings Denies decreased energy 03/03/2018 None hypertension Pertinent Findings Denies dizziness 03/03/2018 None hypertension Pertinent Findings Denies dyspnea 03/03/2018 None hypertension Pertinent Findings Denies edema 03/03/2018 None Hospital Follow Up _ Oth er: _ 01/27/2018 None Hospital Follow Up Quality intermittent 01/27/2018 None Hospital Follow Up Onset of Symptom 10 days ago 01/27/2018 None Hospital Follow Up Pertinent Findings Denies pain 01/27/2018 None Hospital Follow Up _ pne umonia 10/13/2017 None Hospital Follow Up _ Oth er: influenza, UTI 10/13/2017 None Hospital Follow Up Quality acute 10/13/2017 None Hospital Follow Up Quality improving 10/13/2017 None Hospital Follow Up Significant Medic al Conditions acute illness 10/13/2017 improved hypertension Quality mily parra hypertension 08/07/2017 None hypertension Onset and Resolution ongoing 08/07/2017 None hypertension Onset of Symptom during adulthood 08/07/2017 None hypertension Alleviating Factors medication 08/07/2017 None hypertension Pertinent Findings Denies dizziness 08/07/2017 None hypertension Pertinent Findings Denies dyspnea 08/07/2017 None hypertension Pertinent Findings Denies edema 08/07/2017 None hypertension Blood Pressure Values patient checking blood pressure at home - did not bring in readings 08/07/2017 None hypertension Pertinent Findings Denies decreased energy 08/07/2017 None hypertension Pertinent Findings Denies anxiety 08/07/2017 None bite to the hand Location on the left 05/27/2017 forearm on left bite to the hand Quality animal bite 05/27/2017 None bite to the hand Quality improving 05/27/2017 None bite to the hand Onset of Symptom 5 days ago 05/27/2017 None bite to the hand Severity moderate 05/27/2017 None bite to the hand Pertinent Findings Denies bruising 05/27/2017 None bite to the hand Pertinent Findings Denies fever 05/27/2017 None bite to the hand Pertinent Findings Denies numbness 05/27/2017 None bite to the hand Pertinent Findings pain with movement 05/27/2017 None hypertension Quality mily parra hypertension 04/10/2017 None hypertension Onset and Resolution ongoing 04/10/2017 None hypertension Onset of Symptom during adulthood 04/10/2017 None hypertension Alleviating Factors medication 04/10/2017 None hypertension Blood Pressure Values pt checking blood pressure - see scanned document 04/10/2017 None hypertension Pertinent Findings Denies dizziness 04/10/2017 None hypertension Pertinent Findings Denies dyspnea 04/10/2017 None hypertension Pertinent Findings Denies edema 04/10/2017 None hypothyroid Location at the level of the thyroid 03/18/2017 None hypothyroid Quality 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 automatic 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 dejah 03/18/2017 None hypothyroid Onset and Resolution ongoing 03/18/2017 None hypothyroid Alleviating Factors medication 03/18/2017 None hyperlipidemia Onset and Resolution gradual in onset 03/18/2017 None hyperlipidemia Onset and Resolution ongoing 03/18/2017 None hyperlipidemia Onset of Symptom during adulthood 03/18/2017 None hyperlipidemia Alleviating Factors medication 03/18/2017 None hyperlipidemia Exacerbating Factors diet 03/18/2017 None rash Location-Major on t he legs 12/20/2016 left anterior lower leg, right thigh cough Location in the yessi ng 12/17/2016 None cough Quality acute 12/17/2016 None cough Onset and Resolution sudden in onset 12/17/2016 None cough Quality hacking 12/17/2016 None cough Quality productive 12/17/2016 None cough Onset of Symptom 4 days ago 12/17/2016 None cough Pertinent Findings chest discomfort 12/17/2016 None cough Pertinent Findings dyspnea 12/17/2016 with exertion cough Pertinent Findings Denies fever 12/17/2016 None cough Pertinent Findings hoarseness 12/17/2016 None cough Pertinent Findings Denies ill contacts 12/17/2016 None cough Pertinent Findings lethargy 12/17/2016 None cough Pertinent Findings Denies muscle aches 12/17/2016 None cough Pertinent Findings nasal congestion 12/17/2016 None cough Pertinent Findings purulent sputum 12/17/2016 None cough Pertinent Findings post nasal drip 12/17/2016 None cough Pertinent Findings sputum production 12/17/2016 None cough Pertinent Findings weakness 12/17/2016 None chest congestion Quality acute 12/17/2016 None chest congestion Onset and Resolution sudden in onset 12/17/2016 None chest congestion Onset of Symptom 4 days ago 12/17/2016 None chest congestion Pertinent Findings chills 12/17/2016 None chest congestion Pertinent Findings cough 12/17/2016 None chest congestion Pertinent Findings decreased energy 12/17/2016 None chest congestion Pertinent Findings dyspnea 12/17/2016 None chest congestion Pertinent Findings Denies fever 12/17/2016 None chest congestion Pertinent Findings nasal congestion 12/17/2016 None chest congestion Pertinent Findings sputum production 12/17/2016 None hypothyroid Onset and Resolution ongoing 09/17/2016 None hypothyroid Alleviating Factors medication 09/17/2016 None hyperlipidemia Onset and Resolution gradual in onset 09/17/2016 None hyperlipidemia Onset and Resolution ongoing 09/17/2016 None hyperlipidemia Onset of Symptom during adulthood 09/17/2016 None hyperlipidemia Alleviating Factors medication 09/17/2016 None hyperlipidemia Exacerbating Factors diet 09/17/2016 None hypothyroid Quality 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 automatic line dejah 09/17/2016 None hypothyroid Location at the level of the thyroid 09/17/2016 None Hospital Follow Up _ pne umonia 05/20/2016 None anxiety Quality chronic 05/20/2016 None anxiety Limitation on Activities does not limit activities 05/20/2016 None anxiety Significant Family History anxiety disorder 05/20/2016 None anxiety Significant Family History depression 05/20/2016 None anxiety Triggers stress 05/20/2016 None anxiety Alleviating Factors medication 05/20/2016 None anxiety Pertinent Findings Denies avoidance behavior 05/20/2016 None anxiety Pertinent Findings Denies dyspnea 05/20/2016 None anxiety Pertinent Findings Denies restlessness 05/20/2016 None sinus congestion Quality acute 05/20/2016 None sinus congestion Severity moderate 05/20/2016 None Annual Medicare Wellness Exam Alcohol Use does not drink any alcohol 12/11/2015 None Annual Medicare Wellness Exam Aspirin Use yes 12/11/2015 None Annual Medicare Wellness Exam Blood Glucose (self reported) don't know 12/11/2015 No ne Annual Medicare Wellness Exam Blood Pressure (self reported) don't know 12/11/2015 No ne Annual Medicare Wellness Exam Choles terol (self reported) don't know 12/11/2015 No ne Annual Medicare Wellness Exam Depres adolfo (last 6 months) some of the time 12/11/2015 None Annual Medicare Wellness Exam Depres adolfo or Hopelessness some of the time 12/11/2015 None Annual Medicare Wellness Exam Descri be Your Health fair 12/11/2015 None Annual Medicare Wellness Exam Exerci se Habits does not exercise 12/11/2015 None Annual Medicare Wellness Exam Handli ng Stress usually leslie effectively 12/11/2015 None Annual Medicare Wellness Exam Hemagl obin A-1C (self reported) don't know 12/11/2015 No ne Annual Medicare Wellness Exam Hours of Sleep 8 12/11/2015 None Annual Medicare Wellness Exam Intera ction with Friends yes 12/11/2015 None Annual Medicare Wellness Exam Intere sts & Pleasure some of the time 12/11/2015 None Annual Medicare Wellness Exam Life S atisfaction satisfied 12/11/2015 Non e Annual Medicare Wellness Exam Motor Vehicle Safety always fastens seat belt: y 12/11/19 16 None Annual Medicare Wellness Exam Motor Vehicle Safety drives after drinking: n 12/11/2015 None Annual Medicare Wellness Exam Motor Vehicle Safety rides with someone who has been drinking: n 12/11/2015 None Annual Medicare Wellness Exam Nutrition servings of fried food / high fat foods per day: 0 12/11/2015 None Annual Medicare Wellness Exam Nutrition servings of high fiber / whole grain per day: 1 12/11/2015 None Annual Medicare Wellness Exam Nutrition servings of vegetables / fruit per day: 2 12/11/2015 None Annual Medicare Wellness Exam Smokin g and Tobacco Use non smoker 12/11/2015 No ne Annual Medicare Wellness Exam Social & Emotional Support always 12/11/2015 None Annual Medicare Wellness Exam Stress some of the time 12/11/2015 None Annual Medicare Wellness Exam Sun Exposure protects skin when outdoors: y 12/11/2015 None rash Location-Major on t he hands 10/06/2015 None rash Location-Major on t he feet 10/06/2015 None rash Color red 10/06/2015 None rash Onset of Symptom 3 weeks ago 10/06/2015 None rash Pertinent Findings Denies itching 10/06/2015 None rash Pertinent Findings tenderness 10/06/2015 None anxiety Quality chronic 09/21/2015 None anxiety Onset and Resolution ongoing 09/21/2015 problems with granddaught er - anxiety Limitation on Activities does not limit activities 09/21/2015 None anxiety Significant Family History anxiety disorder 09/21/2015 None anxiety Significant Family History depression 09/21/2015 None anxiety Triggers stress 09/21/2015 None anxiety Alleviating Factors medication 09/21/2015 None anxiety Pertinent Findings Denies avoidance behavior 09/21/2015 None anxiety Pertinent Findings Denies dyspnea 09/21/2015 None anxiety Pertinent Findings Denies restlessness 09/21/2015 None sinus congestion Onset and Resolution sudden in onset 09/21/2015 None sinus congestion Onset of Symptom 1 weeks ago 09/21/2015 None sinus congestion Pertinent Findings cough 09/21/2015 None sinus congestion Pertinent Findings hoarseness 09/21/2015 None anxiety Quality chronic 07/26/2014 None anxiety Onset and Resolution ongoing 07/26/2014 problems with granddaught er - anxiety Limitation on Activities does not limit activities 07/26/2014 None anxiety Significant Family History anxiety disorder 07/26/2014 None anxiety Significant Family History depression 07/26/2014 None anxiety Triggers stress 07/26/2014 None anxiety Alleviating Factors medication 07/26/2014 None anxiety Pertinent Findings Denies avoidance behavior 07/26/2014 None anxiety Pertinent Findings Denies dyspnea 07/26/2014 None anxiety Pertinent Findings Denies restlessness 07/26/2014 None anxiety Quality chronic 01/25/2014 None anxiety Onset and Resolution ongoing 01/25/2014 problems with granddaught er anxiety Pertinent Findings Denies avoidance behavior 01/25/2014 None anxiety Pertinent Findings Denies dyspnea 01/25/2014 None anxiety Pertinent Findings Denies restlessness 01/25/2014 None anxiety Alleviating Factors medication 01/25/2014 None anxiety Limitation on Activities does not limit activities 01/25/2014 None anxiety Significant Family History anxiety disorder 01/25/2014 None anxiety Significant Family History depression 01/25/2014 None anxiety Triggers stress 01/25/2014 None sore throat Location dif fusely 01/10/2014 None sore throat Quality acute 01/10/2014 None sore throat Onset and Resolution ongoing 01/10/2014 None sore throat Onset of Symptom 3 days ago 01/10/2014 None sore throat Limitation on Activities does not limit oral intake 01/10/2014 None sore throat Frequency of Episodes unchanged 01/10/2014 None sore throat Triggers no known associated factors 01/10/2014 None sore throat Pertinent Findings Denies cough 01/10/2014 None sore throat Pertinent Findings Denies fever 01/10/2014 None sore throat Pertinent Findings Denies ill contacts 01/10/2014 None earache Location right e ar 09/23/2013 "feels stopped up" earache Quality throbbing 09/23/2013 None earache Severity mild 09/23/2013 None earache Triggers allergi es 09/23/2013 None cough Location in the yessi ng 09/09/2013 None earache Location right e ar 09/09/2013 None anxiety Quality chronic 06/03/2013 None anxiety Quality intermit tent 06/03/2013 granddaughter is giving p atient fits. anxiety Onset and Resolution ongoing 06/03/2013 None dyskinesia or tremor Quality dystonia 06/03/2013 --Improved dyskinesia or tremor Quality improving 06/03/2013 None dyskinesia or tremor Onset and Resolution gradual in onset 06/03/2013 while on higher dose of zyprexa dyskinesia or tremor Onset and Resolution resolved 06/03/2013 due to decrease of the zyprexa dyskinesia or tremor Pertinent Findings Denies aphasia 06/03/2013 None dyskinesia or tremor Pertinent Findings Denies bradykinesia 06/03/2013 None dyskinesia or tremor Pertinent Findings Denies dizziness 06/03/2013 None dyskinesia or tremor Pertinent Findings Denies dysphagia 06/03/2013 None dyskinesia or tremor Pertinent Findings Denies dyspnea 06/03/2013 None anxiety Triggers family discord 06/03/2013 None anxiety Triggers stress 06/03/2013 None anxiety Alleviating Factors medication 06/03/2013 None anxiety Pertinent Findings Denies avoidance behavior 06/03/2013 None anxiety Pertinent Findings Denies nausea 06/03/2013 None anxiety Pertinent Findings Denies nightmares 06/03/2013 None anxiety Pertinent Findings Denies pallor 06/03/2013 None anxiety Pertinent Findings Denies palpitations 06/03/2013 None anxiety Pertinent Findings Denies restlessness 06/03/2013 None dyskinesia or tremor Quality dystonia 02/04/2013 None dyskinesia or tremor Quality improving 02/04/2013 None dyskinesia or tremor Onset and Resolution gradual in onset 02/04/2013 while on higher dose of zyprexa dyskinesia or tremor Onset and Resolution resolved 02/04/2013 due to decrease of the zyprexa dose at last clinic visit dyskinesia or tremor Pertinent Findings Denies aphasia 02/04/2013 None dyskinesia or tremor Pertinent Findings Denies bradykinesia 02/04/2013 None dyskinesia or tremor Pertinent Findings Denies dizziness 02/04/2013 None dyskinesia or tremor Pertinent Findings Denies dysarthria 02/04/2013 None dyskinesia or tremor Pertinent Findings Denies dysphagia 02/04/2013 None dyskinesia or tremor Pertinent Findings Denies dyspnea 02/04/2013 None hyperlipidemia Quality c hronic 12/31/2012 None hyperlipidemia Alleviating Factors medication 12/31/2012 None hypothyroid Quality 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 automatic 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 12/31/2012 None hyperlipidemia Onset and Resolution ongoing 12/31/2012 None hyperlipidemia Onset of Symptom during adulthood 12/31/2012 None hyperlipidemia Severity moderate 12/31/2012 None hyperlipidemia Triggers no known associated factors 12/31/2012 None hyperlipidemia Exacerbating Factors diet 12/31/2012 None hyperlipidemia Pertinent Findings Denies edema 12/31/2012 None hyperlipidemia Pertinent Findings Denies nausea 12/31/2012 None hyperlipidemia Pertinent Findings Denies obesity 12/31/2012 None hyperlipidemia Pertinent Findings Denies polyuria 12/31/2012 None hyperlipidemia Pertinent Findings Denies vomiting 12/31/2012 None hyperlipidemia Pertinent Findings Denies xanthelasma 12/31/2012 None hyperlipidemia Significant Family History hyperlipidemia 12/31/2012 None hyperlipidemia Onset and Resolution ongoing 10/01/2012 None hyperlipidemia Onset of Symptom during adulthood 10/01/2012 None hyperlipidemia Severity moderate 10/01/2012 None hyperlipidemia Triggers no known associated factors 10/01/2012 None hyperlipidemia Alleviating Factors medication 10/01/2012 None hyperlipidemia Exacerbating Factors diet 10/01/2012 None hyperlipidemia Pertinent Findings Denies edema 10/01/2012 None hyperlipidemia Pertinent Findings Denies nausea 10/01/2012 None hyperlipidemia Pertinent Findings Denies obesity 10/01/2012 None hyperlipidemia Pertinent Findings Denies polyuria 10/01/2012 None hyperlipidemia Pertinent Findings Denies vomiting 10/01/2012 None hyperlipidemia Pertinent Findings Denies xanthelasma 10/01/2012 None hyperlipidemia Quality c hronic 10/01/2012 None hyperlipidemia Significant Family History hyperlipidemia 10/01/2012 None hyperlipidemia Onset and Resolution ongoing 09/03/2012 None hyperlipidemia Severity moderate 09/03/2012 None hyperlipidemia Onset of Symptom during adulthood 09/03/2012 None hyperlipidemia Triggers no known associated factors 09/03/2012 None hyperlipidemia Alleviating Factors medication 09/03/2012 None hyperlipidemia Exacerbating Factors diet 09/03/2012 None hyperlipidemia Pertinent Findings Denies edema 09/03/2012 None hyperlipidemia Pertinent Findings Denies nausea 09/03/2012 None hyperlipidemia Pertinent Findings Denies obesity 09/03/2012 None hyperlipidemia Pertinent Findings Denies polyuria 09/03/2012 None hyperlipidemia Pertinent Findings Denies vomiting 09/03/2012 None hyperlipidemia Pertinent Findings Denies xanthelasma 09/03/2012 None hyperlipidemia Quality c hronic 09/03/2012 None hyperlipidemia Significant Family History hyperlipidemia 09/03/2012 None hypothyroid Quality 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 automatic 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 dejah 06/26/2011 None cough Location in the yessi ng 06/26/2011 None cough Onset and Resolution sudden in onset 06/26/2011 states [place] gave her a cold cough Onset and Resolution ongoing 06/26/2011 None cough Quality acute 06/26/2011 None cough Quality hacking 06/26/2011 None cough Quality productive 06/26/2011 None cough Limitation on Activities does not limit activities 06/26/2011 None cough Onset of Symptom 9 days ago 06/26/2011 None cough Onset of Symptom d uring adulthood 06/26/2011 None cough Triggers ill conta cts 06/26/2011 None hypothyroid Onset and Resolution ongoing 06/26/2011 None hypothyroid Severity mil d with subclinical signs 06/26/2011 None hypothyroid Triggers no known associated factors 06/26/2011 None Advance Directives No Advance Directive data Encounters Encounter Performer Loca tion Codes Date ([id number]) 95927 EST. P ATIENT, LEVEL III Diagnosis: Essential (primary) hypertension[ICD10: I10] Giovanna Robbins MD, [facility] CPT-4: 30157 06/30/2018 ([id number]) 94291 EST. P ATIENT, LEVEL III Diagnosis: Essential (primary) hypertension[ICD10: I10] Disha Robbins MD, C CPT-4: 11283 03/03/2018 ([id number]) 14294 EST. 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 CPT-4: 85739 01/27/2018 ([id number]) 92216 EST. P ATIENT, LEVEL III Diagnosis: Other hypotension[ICD10: I95.89] Diagnosis: Ventricular tachycardia[ICD10: I47.2] Disha Robbins MD, [facility] CPT-4: 37315 10/13/2017 ([id number]) 98706 EST. P ATIENT, LEVEL III Diagnosis: Essential (primary) hypertension[ICD10: I10] Disha Robbins MD, C CPT-4: 22647 08/07/2017 ([id number]) 69969 EST. P ATIENT, LEVEL III Diagnosis: Open bite of left upper arm, initial encounter[ICD10: S41.152A] Disha Robbins MD, [facility] CPT-4: 39429 05/27/2017 ([id number]) 93699 EST. P ATIENT, LEVEL III Diagnosis: Essential (primary) hypertension[ICD10: I10] Disha Robbins MD, C CPT-4: 23693 04/10/2017 ([id number]) Miscellaneou s no charge Diagnosis: Essential (primary) hypertension[ICD10: I10] Tanna Robbins MD, [facility] CPT-4: 91288 03/25/2017 ([id number]) 63860 EST. P ATIENT, LEVEL IV Diagnosis: Essential (primary) hypertension[ICD10: I10] Diagnosis: Atrophy of thyroid (acquired)[ICD10: E03.4] Diagnosis: Mixed hyperlipidemia[ICD10: E78.2] Disha Robbins MD, [facility] CPT- 4: 01250 03/18/2017 ([id number]) 14346 EST. P ATIENT, LEVEL III Diagnosis: Cough[ICD10: R05] Diagnosis: Acute bronchitis, unspecified[ICD10: J20.9] Giovanna Robbins MD, [facility] CPT-4: 94132 12/17/2016 ([id number]) 57686 EST. P ATIENT, LEVEL IV Diagnosis: Atrophy of thyroid (acquired)[ICD10: E03.4] Diagnosis: Mixed hyperlipidemia[ICD10: E78.2] Diagnosis: Generalized anxiety disorder[ICD10: F41.1] Disha Robbins MD, [facility] CPT-4: 57346 09/17/2016 ([id number]) 01650 EST. P ATIENT, LEVEL III Diagnosis: Atrophy of thyroid (acquired)[ICD10: E03.4] Diagnosis: Generalized anxiety disorder[ICD10: F41.1] Disha Robbins MD, [facility] CPT-4: 85222 05/20/2016 42489 EST. PATIENT, LEVEL II Diagnosis: Blister (nonthermal), right great toe, initial encounter[ICD10: S90.421A] Giovanna Robbins MD, [facility] CPT-4: 29494 10/06/2015 ([id number]) 52919 EST. P ATIENT, LEVEL IV Diagnosis: Elevated blood-pressure reading, without diagnosis of hypertension[ICD10: R03.0] Diagnosis: Mixed hyperlipidemia[ICD10: E78.2] Diagnosis: Hypothyroidism, unspecified[ICD10: E03.9] Giovanna Robbins MD, [facility] CPT-4: 00847 09/21/2015 ([id number]) 64003 EST. P ATIENT, LEVEL IV Diagnosis: HYPERLIPIDEMIA[ICD9: 272.4] Diagnosis: HYPOTHYROIDISM[ICD9: 244.9] Diagnosis: Need for pneumococcal vaccine[ICD9: V03.82] Disha Robbins MD, [facility] CPT-4: 59218 07/26/2014 ([id number]) 23673 EST. P ATIENT, LEVEL IV Diagnosis: HYPERLIPIDEMIA[ICD9: 272.4] Diagnosis: HYPOTHYROIDISM[ICD9: 244.9] Diagnosis: DEPRESSIVE DISORDER NEC[ICD9: 311] Disha Robbins MD, [facility] CPT- 4: 28746 01/25/2014 ([id number]) 42382 EST. P ATIENT, LEVEL III Diagnosis: ACUTE PHARYNGITIS[ICD9: 462] Giovanna Robbins MD, [facility] CPT- 4: 87476 01/10/2014 ([id number]) 68455 EST. P ATIENT, LEVEL III Diagnosis: GENERALIZED ANXIETY DISEASE[ICD9: 300.02] Diagnosis: Ear pain[ICD9: 388.70] Disha Robbins MD, [facility] CPT-4: 78078 09/23/2013 ([id number]) 15816 EST. P ATIENT, LEVEL IV Diagnosis: BACTERIAL PNEUMONIA[ICD9: 482.9] Diagnosis: Encounter for long-term (current) use of other medications[ICD9: V58.69] Diagnosis: HYPOTHYROIDISM[ICD9: 244.9] Diagnosis: DEPRESSIVE DISORDER NEC[ICD9: 311] Disha Robbins MD, [facility] CPT- 4: 31328 09/09/2013 ([id number]) 80344 EST. 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 CPT-4: 94042 06/03/2013 ([id number]) 90623 EST. 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 CPT-4: 37843 12/31/2012 ([id number]) 25685 EST. P ATIENT, LEVEL IV Diagnosis: Renal insufficiency[ICD9: 593.9] Diagnosis: HYPERLIPIDEMIA[ICD9: 272.4] Diagnosis: DEPRESSIVE DISORDER NEC[ICD9: 311] Diagnosis: KIMANI (generalized anxiety disorder)[ICD9: 300.02] Disha Robbins MD, C CPT-4: 01703 10/01/2012 ([id number]) 79669 EST. [facility]: HYPERLIPIDEMIA[ICD9: 272.4] Diagnosis: DEPRESSIVE DISORDER NEC[ICD9: 311] Diagnosis: KIMANI (generalized anxiety disorder)[ICD9: 300.02] Disha Robbins MD, C CPT-4: 48945 09/03/2012 09369 EST. PATIENT, LEVEL IV Diagnosis: HYPOTHYROIDISM[ICD9: 244.9] Diagnosis: HYPERLIPIDEMIA[ICD9: 272.4] Diagnosis: ACUTE MAXILLARY SINUSITIS[ICD9: 461.0] Disha Robbins MD, [facility] CPT-4: 97897 06/26/2011 Plan of Care Planned Activity Notes C odes Status Date Appointment: [phone] [id number] (15 min) Moderate 11/03/2018 Visit Plan: Hypertension - well con trolled - continue with current medications, continue with no added salt diet. Pt has been encouraged to exercise daily. The pt has been advised to call the office if there are any acute concerns about change in blood pressure readings at home. 06/30/2018 Appointment: (15 min) Moderate 06/30/2018 Patient Education: Patient Medication Summary Completed 06/30/2018 Visit Plan: Hypertension - well con trolled - continue with current medications, continue with no added salt diet. Pt has been encouraged to exercise daily. The pt has been advised to call the office if there are any acute concerns about change in blood pressure readings at home. 03/03/2018 Appointment: Disha Robbins WPtel: [phone] [id number] (15 min) Moderate 03/03/2018 Patient Education: Patient Medication Summary Completed 03/03/2018 Appointment: Disha Robbins WPtel: [id number] [place] (15 min) Moderate 02/03/2018 Visit Plan: AVM - discussed with th e patient and her - we will order an MRI of the brain. Pt has been advised that since the seizure she should not be driving and she should continue with Keppra as previously prescribed. 01/27/2018 Appointment: Disha Robbins WPtel: [facility]9 [id number] (15 min) Moderate 01/27/2018 Patient Education: Patient Medication Summary Completed 01/27/2018 Care Plan: MRI BRAIN STEM W/O DYE Pending 01/27/2018 Visit Plan: Blood pressure low - re commended pt to increase the sodium in her diet. Tachycardia - no change in dose of toprol at this time. 10/13/2017 Appointment: Disha Robbins WPtel: [facility]6 [id number] [place] (15 min) Moderate 10/13/2017 Patient Education: Patient Medication Summary Completed 10/13/2017 Visit Plan: Hypertension - well con trolled - continue with current medications, continue with no added salt diet. Pt has been encouraged to exercise daily. The pt has been advised to call the office if there are any acute concerns about change in blood pressure readings at home. 08/07/2017 Appointment: [facility] [phone] [facility] [place] (15 min) Moderate 08/07/2017 Patient Education: Patient Medication Summary Completed 08/07/2017 Visit Plan: Cat bite to arm - cellu litis - continue with augmentin - call if not improving. Advised pt to have animal control pickle pumper the stray cat that bit her. 05/27/2017 Appointment: [facility] [phone] [facility] (15 min) Moderate 05/27/2017 Patient Education: Patient Medication Summary Completed 05/27/2017 Visit Plan: Hypertension - well con trolled - continue with current medications, continue with no added salt diet. Pt has been encouraged to exercise daily. The pt has been advised to call the office if there are any acute concerns about change in blood pressure readings at home. 04/10/2017 Appointment: [facility] [phone] [facility] [place] (15 min) Moderate 04/10/2017 Patient Education: Patient Medication Summary Completed 04/10/2017 Appointment: Nurse Visit 03/25/2017 Patient Education: Patient Medication Summary Completed 03/25/2017 Visit Plan: Hypertension - uncontro lled - the patient's medications have been modified as documented in the visit note. The patient has been counseled to cut back on salt in diet for a no added salt diet, low fat d iet, start an exercise program with low weight bearing exercises and higher aerobic activity for heart health. The patient is to check blood pressure readings as an outpatient and either fax, call, or email the readings to the office next week for practitioner to review. The pt is to call for acute concerns. Pt is to start on Losartan - this is for your elevated blood pressure - take it one time daily return to clinic to check blood pressures. Hypothyroidism - pt with chronic hypothyroidism, continue with current medication, will monitor pt to signs or symptoms of lack of adequate supplementation. Pt is to continue with current dose of medication unless directed otherwise. Check labs at regular intervals wither q 3 months or q 6 months based on previous levels of control. Hyperlipidemia - pt has been counseled about appropriate diet, exercise, and need for low fat food choices. I have discussed the need for the patient to take medications as prescribed. If the patient has negative side effects from the medication, they are to CALL the office and not abruptly discontinue the medication without discussion with a practitioner in the office. We will check labs in 3-6 months for follow up on the patient's chronic medical problem and to assure normal liver response to medications. 03/18/2017 Appointment: [facility]isha [facility]bins [facility]el[facility] [phone] [facility] [place] (15 min) Moderate 03/18/2017 Patient Education: Patient Medication Summary Completed 03/18/2017 Visit Plan: Rash-does not appear to be a drug rash-kenalog injection today in the office-continue abx but if rash worsens, stop abx and call the office-start anti histamine daily -may use benadryl as needed-patient verbalized understanding of plan. 12/20/2016 Appointment: Nurse Visit 12/20/2016 Patient Education: Patient Medication Summary Completed 12/20/2016 Visit Plan: Bronchitis - acute case of bronchitis identified. Pt has been given antibiotics, breathing treatments as appropriate, and pt has been instructed to call if symptoms are not improved, or if symptoms acutely worsen. 12/17/2016 Appointment: [facility]el[facility] [phone] [phone] (30 min) Complex 12/17/2016 Patient Education: Patient Medication Summary Completed 12/17/2016 Visit Plan: Hypothyroidism - pt wit h chronic hypothyroidism, continue with current medication, will monitor pt to signs or symptoms of lack of adequate supplementation. Pt is to continue with current dose of medication unless directed otherwise. Check labs at regular intervals wither q 3 months or q 6 months based on previous levels of control. Hyperlipidemia - pt has been counseled about appropriate diet, exercise, and need for low fat food choices. I have discussed the need for the patient to take medications as prescribed. If the patient has negative side effects from the medication, they are to CALL the office and not abruptly discontinue the medication without discussion with a practitioner in the office. We will check labs in 3-6 months for follow up on the patient's chronic medical problem and to assure normal liver response to medications. plan for labs to be done when she goes to see Dr. Vail for her multiple myeloma Chronic Depression and anxiety - the pt has symptoms of chronic anxiety and depression that have been fairly well controlled since the last office visit. The pt has expected periods of exacerbation with abatement of the symptoms with change in situational exposure. No change in current medications. 09/17/2016 Appointment: Disha Robbins WPtel: [phone] [id number] (15 min) Moderate 09/17/2016 Patient Education: Patient Medication Summary Completed 09/17/2016 Visit Plan: Hypothyroidism - pt wit h chronic hypothyroidism, continue with current medication, will monitor pt to signs or symptoms of lack of adequate supplementation. Pt is to continue with current dose of medication unless directed otherwise. Check labs at regular intervals wither q 3 months or q 6 months based on previous levels of control. Chronic Depression and anxiety - the pt has symptoms of chronic anxiety and depression that have been fairly well controlled since the last office visit. The pt has expected periods of exacerbation with abatement of the symptoms with change in situational exposure. No change in current medications. 05/20/2016 Appointment: Disha Robbins WPtel: [phone] [id number] (15 min) Moderate 05/20/2016 Patient Education: Patient Medication Summary Completed 05/20/2016 Care Plan: Tsh Pending 05/20/2016 Care Plan: Free T4 Pending 05/20/2016 Care Plan: SCREENINGMAMMOGRAPHYDIGITAL LOINC : 19389-4 Pending 12/12/2015 Visit Plan: Medicare Exam - today w e discussed the patients past history, immunizations, preventative exams/evaluations - colonoscopy, fecal occult blood testing, routine labs for renal function, glucose, cholesterol, osteoporosis evaluations, cardiovascular testing and cancer screenings. We have also discussed mental health and the signs/symptoms of depression. The patient was advised of home safety evaluations and the need to make sure that as the aging process continues, we need to be aware of different ways to make the home a safer place to reside. The patient has also been counseled that exercise is necessary - and of utmost importance as we age to help decrease fall risk and to maintain independece in the home. Today we discussed the need for the patient to create paperwork for Advanced directives as well as for the patient to provide this office with a copy of her DOPA paperwork for health care surrogate. 12/11/2015 Appointment: Tanna Marquez WPtel: [phone] [id number] [facility] - Annual Wellness Visit 12/11/2015 Patient Education: Patient Medication Summary Completed 12/11/2015 Visit Plan: Blister of toe-drained today in the office and occlusive dressing applied-RX for bactroban ointment and wound care instructions provided-instructed patient to stop draining blister at home-call for any s/s of infection-redness, drainage, warmth, etc or any other concerns. Patient verbalized understanding of plan. 10/06/2015 Appointment: (30 min) Complex 10/06/2015 Patient Education: Patient Medication Summary Completed 10/06/2015 Visit Plan: Elevated Blood Pressure - without diagnosis of hypertension - pt has been instructed to check blood pressure as an outpatient, record blood pressure and heart rate and report to the clinic in two weeks on the findings. Pt advised to cut back on added salt in the diet. Hyperlipidemia - pt has been counseled about appropriate diet, exercise, and need for low fat food choices. I have discussed the need for the patient to take medications as prescribed. If the patient has negative side effects from the medication, they are to CALL the office and not abruptly discontinue the medication without discussion with a practitioner in the office. We will check labs in 3-6 months for follow up on the patient's chronic medical problem and to assure normal liver response to medications. Hypothyroidism - pt with chronic hypothyroidism, continue with current medication, will monitor pt to signs or symptoms of lack of adequate supplementation. Pt is to continue with current dose of medication unless directed otherwise. Check labs at regular intervals wither q 3 months or q 6 months based on previous levels of control. 09/21/2015 Appointment: (30 min) Complex 09/21/2015 Patient Education: Patient Medication Summary Completed 09/21/2015 Visit Plan: Hyperlipidemia - pt has been counseled about appropriate diet, exercise, and need for low fat food choices. I have discussed the need for the patient to take medications as prescribed. If the patient has negative side effects from the medication, they are to CALL the office and not abruptly discontinue the medication without discussion with a practitioner in the office. We will check labs in 3-6 months for follow up on the patient's chronic medical problem and to assure normal liver response to medications. Hypothyroidism - pt with chronic hypothyroidism, continue with current medication, will monitor pt to signs or symptoms of lack of adequate supplementation. Pt is to continue with current dose of medication unless directed otherwise. Check labs at regular intervals wither q 3 months or q 6 mo nths based on previous levels of control. Chronic Depression and anxiety - the pt has symptoms of chronic anxiety and depression that have been fairly well controlled since the last office visit. The pt has expected periods of exacerbation with abatement of the symptoms with change in situational exposure. No change in current medications. 07/26/2014 Appointment: Disha Robbins WPtel: [phone] [id number] Follow up 07/26/2014 Patient Education: Patient Medication Summary Completed 07/26/2014 Visit Plan: Hyperlipidemia - pt has been counseled about appropriate diet, exercise, and need for low fat food choices. I have discussed the need for the patient to take medications as prescribed. If the patient has negative side effects from the medication, they are to CALL the office and not abruptly discontinue the medication without discussion with a practitioner in the office. We will check labs in 3-6 months for follow up on the patient's chronic medical problem and to assure normal liver response to medications. Hypothyroidism - pt with chronic hypothyroidism, continue with current medication, will monitor pt to signs or symptoms of lack of adequate supplementation. Pt is to continue with current dose of medication unless directed otherwise. Check labs at regular intervals wither q 3 months or q 6 mo nths based on previous levels of control. Chronic Depression and anxiety - the pt has symptoms of chronic anxiety and depression that have been fairly well controlled since the last office visit. The pt has expected periods of exacerbation with abatement of the symptoms with change in situational exposure. No change in current medications. 01/25/2014 Appointment: Disha Robbins WPtel: [id number] Follow up 01/25/2014 Patient Education: Patient Medication Summary Completed 01/25/2014 Visit Plan: Pharyngitis-Discussed n atural and expected course of this diagnosis and need to alert me if symtpoms do not follow expected course, or if any worse. Recommended salt water gargles as needed for pain. Ty lenol/motrin as needed for fever/discomfort. 01/10/2014 Patient Education: Patient Medication Summary Completed 01/10/2014 Appointment: Disha Robbins WPtel: [address] [place], [place] [id number] Follow up 12/02/2013 Visit Plan: Cerumen on Ear drum - c ausing hearing loss, discomfort in ear drum on right - recommended pt to use sweet oil regularly to prevent cerumen build-up. Chronic Depression and anxiety - the pt has symptoms of chronic anxiety and depression that have been fairly well controlled since the last office visit. The pt has expected periods of exacerbation with abatement of the symptoms with change in situational exposure. No change in current medications. 09/23/2013 Appointment: Disha Robbins WPtel: [address] [place], [place] [id number] Follow up 09/23/2013 Patient Education: Patient Medication Summary Completed 09/23/2013 Visit Plan: Pneumonia - Pt has been diagnosed with pneumonia by physical exam. A chest xray has been ordered as have antibiotics. The pt is aware of the diagnosis and the need for acute treatment of this illness. H ypothyroidism - pt with chronic hypothyroidism, continue with current medication, will monitor pt to signs or symptoms of lack of adequate supplementation. Pt is to continue with current dose of medication unless directed otherwise. Check labs at regular intervals wither q 3 months or q 6 months based on previous levels of control. Chronic Depression and anxiety - the pt has symptoms of chronic anxiety and depression that have been fairly well controlled since the last office visit. The pt has expected periods of exacerbation with abatement of the symptoms with change in situational exposure. No change in current medications. 09/09/2013 Appointment: Disha Robbins WPtel: [address] [place], [place] [id number] [place] [address] follow up 09/09/2013 Patient Education: Patient Medication Summary Completed 09/09/2013 Visit Plan: Chronic Depression and anxiety - the pt has symptoms of chronic anxiety and depression that have been fairly well controlled since the last office visit. The pt has expected periods of exacerbation with abatement of the symptoms with change in situational exposure. No change in current medications. 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 Esophageal Reflux - the patient has been counseled against excessive intake of caffiene, spicy foods, peppermint, and cinnamon - all of which can exacerbate esophageal reflux. The patient is to take medications as prescribed and call the office if the symptoms are not improving. 06/03/2013 Appointment: Disha Robibns WPtel: [phone] [id number] Follow up 06/03/2013 Patient Education: Patient Medication Summary Completed 06/03/2013 Visit Plan: Extrapyramidal movement s improved - less tremor noted in clinic - I have recommended the patient to stay on the 2.5mg zyprexa dosing. If her anxiety or depressive symptoms start to become uncontrolled, she is to call clinic [facility], if her movements worsen again, call clinic [facility]. 02/04/2013 Appointment: Disha Robbins WPtel: [facility]8 [facility] Other 02/04/2013 Patient Education: Patient Medication Summary Completed 02/04/2013 Appointment: Disha Robbins WPtel: [phone] [id number] Follow up 01/28/2013 Visit Plan: Extrapyramidal movement disorder - likely due to zyprexa (generic name = olanzepine), therefore, the medication's dose has been decreased to 2.5mg daily. Nikole is to let us know if her movements do not show improvement in the next 1-2 weeks, she will follow up in clinic in 3 weeks. Hyperlipidemia - pt has been counseled about appropriate diet, exercise, and need for low fat food choices. I have discussed the need for the patient to take medications as prescribed. If the patient has negative side effects from the medication, they are to CALL the office and not abruptly discontinue the medication without discussion with a practicioner in the office. We will check labs in 3-6 months for follow up on the patient's chronic medical problem and to assure normal liver response to medications. Hypothyroidism - pt with chronic hypothyroidism, continue with current medication, will monitor pt to signs or symptoms of lack of adequate supplementation. Pt is to continue with current dose of medication unless directed otherwise. Check labs at regular intervals wither q 3 months or q 6 months based on previous levels of control. KIMANI - decrease zyprexa, monitor anxiety and depression on lower dose of medications. 12/31/2012 Appointment: [id number] Follow [facility] 12/31/2012 Patient Education: Patient Medication Summary Completed 12/31/2012 Visit Plan: Renal insufficiency - w ill repeat labs in a few weeks, recommended the following: Increase fluids - NO MOTRIN, IBUPROFEN, MELOXICAM, ALEVE, NAPROSYN. CAN ONLY TAKE TYLENOL BASED PRODUCTS IF NEEDED HEADA CHES OR SINUS INFECTIONS. Chronic Depression and anxiety - the pt has symptoms of chronic anxiety and depression that have been fairly well controlled since the last office visit. The pt has expected periods of exacerbation with abatement of the symptoms with change in situational exposure. No change in current medications. Hyperlipidemia - medication started, discussed dietary changes. 10/01/2012 Appointment: Disha Robbins [facility]Ptel: [id number] Follow up 10/01/2012 Patient Education: Patient Medication Summary Completed 10/01/2012 Visit Plan: Hyperlipidemia - pt has been counseled about appropriate diet, exercise, and need for low fat food choices. I have discussed the need for the patient to take medications as prescribed. If the patient has negative side effects from the medication, they are to CALL the office and not abruptly discontinue the medication without discussion with a practicioner in the office. We will check labs in 3-6 months for follow up on the patient's chronic medical problem and to assure normal liver response to medications.Return visit in 1 month (after September 29 labs) We will increase the Nicacin to 1000 mg PO Daily. Hypothyroidism - pt with chronic hypothyroidism, continue with current medication, will monitor pt to signs or symptoms of lack of adequate supplementation. Pt is to continue with current dose of medication unless directed otherwise. Check labs at regular intervals wither q 3 months or q 6 months based on previous levels of control. We will replace her levothyroxine with samples and recheck labs in 1 month as TSH had risen since last visit. Chronic Depression and anxiety - the pt has symptoms of chronic anxiety and depression that have been fairly well controlled since the last office visit. The pt has expected periods of exacerbation with abatement of the symptoms with change in situational exposure. No change in current medications. 09/03/2012 Appointment: Disha Robbins [facility]Ptel: [phone] [id number] Follow up 09/03/2012 Patient Education: Patient Medication Summary Completed 09/03/2012 Visit Plan: Hypothyroidism - pt wit h chronic hypothyroidism, continue with current medication, will monitor pt to signs or symptoms of lack of adequate supplementation. Pt is to continue with current dose of medication unless directed otherwise. Check labs at regular intervals wither q 3 months or q 6 months based on previous levels of control. Sinusitis - Pt has acute infection - pain in face, maxillary region, Pt informed to use decongestant, RX given to patient, sinus rinses also recommended. Call if symptoms do not show improvement. pt given rocephin shot im today. Hyperlipideia- pt has not gotten here cholesterol labs in over a year, she has beengiven orders to get the labs done. as soon as possible, fasting.. No change in meds at this time. 06/26/2011 Appointment: Disha Robbins [facility]Ptel: [phone] [id number] Other 06/26/2011 Patient Education: Patient Medication Summary Completed 06/26/2011 Instructions Comment . Blister of toe-aster ined today in the office and occlusive dressing applied-RX for bactroban ointment and wound care instructions provided- instructed patient to stop draining blister at home-call for any s/s of infection-redness, drainage, warmth, etc or any other concerns. Patient verbalized understanding of plan. . Hypertension - wel l controlled - continue with current medications, continue with no added salt diet. Pt has been encouraged to exercise daily. The pt has been advised to call the office if there are any acute concerns about change in blood pressure readings at home. . Chronic Depression and anxiety - the pt has symptoms of chronic anxiety and depression that have been fairly well controlled since the last office visit. The pt has expected periods of exacerbation with abatement of the symptoms with change in situational exposure. No change in current medications. 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 Esophageal Reflux - the patient has been counseled against excessive intake of caffiene, spicy foods, peppermint, and cinnamon - all of which can exacerbate esophageal reflux. The patient is to take medications as prescribed and call the office if the symptoms are not improving. . Medicare Exam - to day we discussed the patients past history, immunizations, preventative exams/evaluations - colonoscopy, fecal occult blood testing, routine labs for renal function, glucose, cholesterol, osteoporosis evaluations, cardiovascular testing and cancer screenings. We have also discussed mental health and the signs/symptoms of depression. The patient was advised of home safety evaluations and the need to make sure that as the aging process continues, we need to be aware of different ways to make the home a safer place to reside. The patient has also been counseled that exercise is necessary - and of utmost importance as we age to help decrease fall risk and to maintain independece in the home. Today we discussed the need for the patient to create paperwork for Advanced directives as well as for the patient to provide this office with a copy of her DOPA paperwork for health care surrogate. rocephin/kenalog zpack -start today call later this week if not better and we will add on 2nd antibiotic such as cefdinir . Bronchitis - acute case of bronchitis identified. Pt has been given antibiotics, breathing treatments as appropriate, and pt has been instructed to call if symptoms are not improved, or if symptoms acutely worsen. increase sodium in d iet. Blood pressure low - recommended pt to increase the sodium in her diet. Tachycardia - no change in dose of toprol at this time. . Elevated Blood Pr essure - without diagnosis of hypertension - pt has been instructed to check blood pressure as an outpatient, record blood pressure and heart rate and report to the clinic in two weeks on the findings. Pt advised to cut back on added salt in the diet. Hyperlipidemia - pt has been counseled about appropriate diet, exercise, and need for low fat food choices. I have discussed the need for the patient to take medications as prescribed. If the patient has negative side effects from the medication, they are to CALL the office and not abruptly discontinue the medication without discussion with a practitioner in the office. We will check labs in 3-6 months for follow up on the patient's chronic medical problem and to assure normal liver response to medications. Hypothyroidism - pt with chronic hypothyroidism, continue with current medication, will monitor pt to signs or symptoms of lack of adequate supplementation. Pt is to continue with current dose of medication unless directed otherwise. Check labs at regular intervals wither q 3 months or q 6 months based on previous levels of control. start on Losartan - this is for your elevated blood pressure - take it one time daily return to clinic to check blood pressures. . Hypertension - uncontrolled - the ernie ent's medications have been modified as documented in the visit note. The patient has been counseled to cut back on salt in diet for a no added salt diet, low fat diet, start an exercise program with low weight bearing exercises and higher aerobic activity for heart health. The patient is to check blood pressure readings as an outpatient and either fax, call, or email the readings to the office next week for practitioner to review. The pt is to call for acute concerns. Pt is to start on Losartan - this is for your elevated blood pressure - take it one time daily return to clinic to check blood pressures. Hypothyroidism - pt with chronic hypothyroidism, continue with current medication, will monitor pt to signs or symptoms of lack of adequate supplementation. Pt is to continue with current dose of medication unless directed otherwise. Check labs at regular intervals wither q 3 months or q 6 months based on previous levels of control. Hyperlipidemia - pt has been counseled about appropriate diet, exercise, and need for low fat food choices. I have discussed the need for the patient to take medications as prescribed. If the patient has negative side effects from the medication, they are to CALL the office and not abruptly discontinue the medication without discussion with a practitioner in the office. We will check labs in 3-6 months for follow up on the patient's chronic medical problem and to assure normal liver response to medications. We will increase her Nicacin to 1000 mg PO Daily. We will replace her levothyroxine with samples and recheck labs in 1 month as TSH had risen since last visit. . Hyperlipidemia - pt has been counseled about appropriate diet, exercise, and need for low fat food choices. I have discussed the need for the patient to take medications as prescribed. If the patient has negative side effects from the medication, they are to CALL the office and not abruptly discontinue the medication without discussion with a practicioner in the office. We will check labs in 3-6 months for follow up on the patient's chronic medical problem and to assure normal liver response to medications.Return visit in 1 month (after September 29 labs) We will increase the Nicacin to 1000 mg PO Daily. Hypothyroidism - pt with chronic hypothyroidism, continue with current medication, will monitor pt to signs or symptoms of lack of adequate supplementation. Pt is to continue with current dose of medication unless directed otherwise. Check labs at regular intervals wither q 3 months or q 6 months based on previous levels of control. We will replace her levothyroxine with samples and recheck labs in 1 month as TSH had risen since last visit. Chronic Depression and anxiety - the pt has symptoms of chronic anxiety and depression that have been fairly well controlled since the last office visit. The pt has expected periods of exacerbation with abatement of the symptoms with change in situational exposure. No change in current medications. . Pharyngitis-Discus sed natural and expected course of this diagnosis and need to alert me if symtpoms do not follow expected course, or if any worse. Recommended salt water gargles as needed for pain. Tylenol/motrin as needed for fever/discomfort. . Hypothyroidism - p t with chronic hypothyroidism, continue with current medication, will monitor pt to signs or symptoms of lack of adequate supplementation. Pt is to continue with current dose of medication unless directed otherwise. Check labs at regular intervals wither q 3 months or q 6 months based on previous levels of control. Hyperlipidemia - pt has been counseled about appropriate diet, exercise, and need for low fat food choices. I have discussed the need for the patient to take medications as prescribed. If the patient has negative side effects from the medication, they are to CALL the office and not abruptly discontinue the medication without discussion with a practitioner in the office. We will check labs in 3-6 months for follow up on the patient's chronic medical problem and to assure normal liver response to medications. plan for labs to be done when she goes to see Dr. Vail for her multiple myeloma Chronic Depression and anxiety - the pt has symptoms of chronic anxiety and depression that have been fairly well controlled since the last office visit. The pt has expected periods of exacerbation with abatement of the symptoms with change in situational exposure. No change in current medications. . Rash-does not appe ar to be a drug rash-kenalog injection today in the office-continue abx but if rash worsens, stop abx and call the office-start anti histamine daily -may use benadryl as needed-patient verbalized understanding of plan. . Hyperlipidemia - pt has been counseled about appropriate diet, exercise, and need for low fat food choices. I have discussed the need for the patient to take medications as prescribed. If the patient has negative side effects from the medication, they are to CALL the office and not abruptly discontinue the medication without discussion with a practitioner in the office. We will check labs in 3-6 months for follow up on the patient's chronic medical problem and to assure normal liver response to medications. Hypothyroidism - pt with chronic hypothyroidism, continue with current medication, will monitor pt to signs or symptoms of lack of adequate supplementation. Pt is to continue with current dose of medication unless directed otherwise. Check labs at regular intervals wither q 3 months or q 6 months based on previous levels of control. Chronic Depression and anxiety - the pt has symptoms of chronic anxiety and depression that have been fairly well controlled since the last office visit. The pt has expected periods of exacerbation with abatement of the symptoms with change in situational exposure. No change in current medications. Friday take 1/2 of t he levaquin (levofloxacin), on Friday take a full levaquin, on Friday take 1/2 levaquin, on Friday take full levaquin, friday 1/2 levaquin and Friday full levaquin, then stop. Pneumonia - Pt has been diagnosed with pneumonia by physical exam. A chest xray has been ordered as have antibiotics. The pt is aware of the diagnosis and the need for acute treatment of this illness. Hypothyroidism - pt with chronic hypothyroidism, continue with current medication, will monitor pt to signs or symptoms of lack of adequate supplementation. Pt is to continue with current dose of medication unless directed otherwise. Check labs at regular intervals wither q 3 months or q 6 months based on previous levels of control. Chronic Depression and anxiety - the pt has symptoms of chronic anxiety and depression that have been fairly well controlled since the last office visit. The pt has expected periods of exacerbation with abatement of the symptoms with change in situational exposure. No change in current medications. . Hypothyroidism - p t with chronic hypothyroidism, continue with current medication, will monitor pt to signs or symptoms of lack of adequate supplementation. Pt is to continue with current dose of medication unless directed otherwise. Check labs at regular intervals wither q 3 months or q 6 months based on previous levels of control. Chronic Depression and anxiety - the pt has symptoms of chronic anxiety and depression that have been fairly well controlled since the last office visit. The pt has expected periods of exacerbation with abatement of the symptoms with change in situational exposure. No change in current medications. . Hyperlipidemia - pt has been counseled about appropriate diet, exercise, and need for low fat food choices. I have discussed the need for the patient to take medications as prescribed. If the patient has negative side effects from the medication, they are to CALL the office and not abruptly discontinue the medication without discussion with a practitioner in the office. We will check labs in 3-6 months for follow up on the patient's chronic medical problem and to assure normal liver response to medications. Hypothyroidism - pt with chronic hypothyroidism, continue with current medication, will monitor pt to signs or symptoms of lack of adequate supplementation. Pt is to continue with current dose of medication unless directed otherwise. Check labs at regular intervals wither q 3 months or q 6 months based on previous levels of control. Chronic Depression and anxiety - the pt has symptoms of chronic anxiety and depression that have been fairly well controlled since the last office visit. The pt has expected periods of exacerbation with abatement of the symptoms with change in situational exposure. No change in current medications. go to [facility] week and get a flu shot and the PREVNAR 13 shot - have them send us the documentation of the immunizations. have jt send a copy of the dexa and mammogram to the office thanks. Hypertension - well controlled - continue with current medications, continue with no added salt diet. Pt has been encouraged to exercise daily. The pt has been advised to call the office if there are any acute concerns about change in blood pressure readings at home. . Extrapyramidal mov ements improved - less tremor noted in clinic - I have recommended the patient to stay on the 2.5mg zyprexa dosing. If her anxiety or depressive symptoms start to become uncontrolled, she is to call clinic [facility], if her movements worsen again, call clinic [facility]. . Hypothyroidism - p t with chronic hypothyroidism, continue with current medication, will monitor pt to signs or symptoms of lack of adequate supplementation. Pt is to continue with current dose of medication unless directed otherwise. Check labs at regular intervals wither q 3 months or q 6 months based on previous levels of control. Sinusitis - Pt has acute infection - pain in face, maxillary region, Pt informed to use decongestant, RX given to patient, sinus rinses also recommended. Call if symptoms do not show improvement. pt given rocephin shot im today. Hyperlipideia- pt has not gotten here cholesterol labs in over a year, she has beengiven orders to get the labs done. as soon as possible, fasting.. No change in meds at this time. . 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 Nikole is to let us know if her movements do not show improvement in the next 1-2 weeks, she will follow up in clinic in 3 weeks. Hyperlipidemia - pt has been counseled about appropriate diet, exercise, and need for low fat food choices. I have discussed the need for the patient to take medications as prescribed. If the patient has negative side effects from the medication, they are to CALL the office and not abruptly discontinue the medication without discussion with a practicioner in the office. We will check labs in 3-6 months for follow up on the patient's chronic medical problem and to assure normal liver response to medications. Hypothyroidism - pt with chronic hypothyroidism, continue with current medication, will monitor pt to signs or symptoms of lack of adequate supplementation. Pt is to continue with current dose of medication unless directed otherwise. Check labs at regular intervals wither q 3 months or q 6 months based on previous levels of control. KIMANI - decrease zyprexa, monitor anxiety and depression on lower dose of medications. . AVM - discussed w ith the patient and her - we will order an MRI of the brain. Pt has been advised that since the seizure she should not be driving and she should continue with Keppra as previously prescribed. Increase fluids - NO MOTRIN, IBUPROFEN, MELOXICAM, ALEVE, NAPROSYN. CAN ONLY TAKE TYLENOL BASED PRODUCTS IF NEEDED HEADACHES OR SINUS INFECTIONS.. Renal insufficiency - will repeat labs in a few weeks, recommended the following: Increase fluids - NO MOTRIN, IBUPROFEN, MELOXICAM, ALEVE, NAPROSYN. CAN ONLY TAKE TYLENOL BASED PRODUCTS IF NEEDED HEADACHES OR SINUS INFECTIONS. Chronic Depression and anxiety - the pt has symptoms of chronic anxiety and depression that have been fairly well controlled since the last office visit. The pt has expected periods of exacerbation with abatement of the symptoms with change in situational exposure. No change in current medications. Hyperlipidemia - medication started, discussed dietary changes. . Hypertension - wel l controlled - continue with current medications, continue with no added salt diet. Pt has been encouraged to exercise daily. The pt has been advised to call the office if there are any acute concerns about change in blood pressure readings at home. . Cat bite to arm - cellulitis - continue with augmentin - call if not improving. Advised pt to have animal control pickle pumper the stray cat that bit her. . Cerumen on Ear jet m - causing hearing loss, discomfort in ear drum on right - recommended pt to use sweet oil regularly to prevent cerumen build-up. Chronic Depression and anxiety - the pt has symptoms of chronic anxiety and depression that have been fairly well controlled since the last office visit. The pt has expected periods of exacerbation with abatement of the symptoms with change in situational exposure. No change in current medications. . Hypertension - wel l controlled - continue with current medications, continue with no added salt diet. Pt has been encouraged to exercise daily. The pt has been advised to call the office if there are any acute concerns about change in blood pressure readings at home.
--- OUTSIDE RECORDS SUMMARY | 2019-11-16 08:50 | XMS REPORT | CCD ---
Author Author Nikole Robbins Organization Disha Robbins MD, [facility] Address [address] [place] [address] Phone Care Team Providers Care Continuous Improvement Facilitator Name Role Phone PP Unavailable CCM Unavailable Summary Purpose Interface Exchange Insurance Providers Payer name Policy type / Coverage type Covered constitution party ID Effective Begin Date Effective End Date WPS Medicare Part B Medicare Part B [id number] 2018 Unknown [employer] Medicare Part B [id number] Unknown Family history Son Diagnosis Age At [...] ntly unemployed 06/26/[address]: 758006470 Never smoker 06/26/[address]: 978087719 Never drinks alcohol 06/26/2011 Has the patient [...] Date Stop Date Sta tus Fill Instructions olanzapine 2.5 mg ta blet RxNorm: 120123 TAKE 1 TABLET BY MOUT H ONCE DAILY 12/21/2018 No Stop Date Active fluoxetine 20 mg cap [place] RxNorm: 756399 TAKE 1 CAPSULE BY ANGELIQUE TH ONCE DAILY 11/17/2018 No Stop Date Active lovastatin 20 mg tablet RxNorm: 491362 TAKE 1 TABLET BY MOUTH AT BEDTIME 11/10/2018 No Stop Date Active metoprolol tartrate 25 mg tablet RxNorm: 126742 TAKE 1/2 (ONE-HALF) T ABLET BY MOUTH TWICE DAILY 09/03/2018 No Stop Date Active Synthroid 75 mcg tablet RxNorm: 681543 TAKE ONE TABLET BY MOUTH ONCE DAILY 08/24/2018 No Stop Date Active olanzapine 2.5 mg ta blet RxNorm: 586930 TAKE 1 TABLET BY MOUT H ONCE DAILY 06/24/2018 12/20/2018 In active fluoxetine 20 mg cap [place] RxNorm: 814481 TAKE 1 CAPSULE BY ANGELIQUE TH ONCE DAILY 05/14/2018 11/16/2018 In active metoprolol tartrate 25 mg tablet RxNorm: 878578 1/2 Tablet(s) PO BID 05/07/2018 09/02/2018 Inactive olanzapine 2.5 mg ta blet RxNorm: 998634 TAKE ONE TABLET BY MO UTH ONCE DAILY 12/23/2017 06/23/2018 In active fluoxetine 20 mg cap [place] RxNorm: 211235 TAKE ONE CAPSULE BY M OUTH ONCE DAILY 11/14/2017 05/13/2018 In active lovastatin 20 mg tablet RxNorm: 641355 Tablet(s) TAKE ONE TABLET BY MOUTH AT BE DTIME 10/24/2017 10/18/2018 Inactive KCL 20 meq RxNorm: 1 PO BID 10/13/2017 No S top Date Active niacin ER 500 mg tab let,extended release RxNorm: 781510 1 Tablet(s) PO QHS 10/13/2017 No Stop Date Active cefdinir 300 mg capsule RxNorm: 840431 1 Capsule(s) PO BID 09/30/2017 10/06/2017 Inactive cefdinir 300 mg capsule RxNorm: 539946 1 Capsule(s) PO BID 09/30/2017 09/29/2017 Inactive Zithromax Z-Yan 250 mg tablet RxNorm: 734485 1 Tablet(s) PO UD 09/30/2017 10/12/2017 Inactive z pack as directed lovastatin 20 mg tablet RxNorm: 687189 Tablet(s) TAKE ONE TABLET BY MOUTH AT BE DTIME 09/10/2017 10/23/2017 Inactive Synthroid 75 mcg tablet RxNorm: 996883 TAKE ONE TABLET BY MOUTH ONCE DAILY 08/01/2017 08/23/2018 In active olanzapine 2.5 mg ta blet RxNorm: 517762 TAKE ONE TABLET BY MO UTH ONCE DAILY 05/27/2017 11/22/2017 In active Zithromax Z-Yan 250 mg tablet RxNorm: 920383 1 Tablet(s) PO UD 04/29/2017 09/29/2017 Inactive z pack as directed fluoxetine 20 mg cap kamer[place] RxNorm: 725801 TAKE ONE CAPSULE BY M [facility] ONCE DAILY 04/28/2017 10/24/2017 In active lovastatin 20 mg tablet RxNorm: 320882 TAKE ONE TABLET BY MOUTH AT BEDTIME 04/28/2017 09/09/2017 In active Synthroid 75 mcg tablet RxNorm: 725888 TAKE ONE TABLET BY MOUTH ONCE DAILY 04/08/2017 07/31/2017 In active losartan 50 mg tablet RxNorm: 563252 1 Tablet(s) PO daily 03/20/2017 10/08/2017 Inactive losartan 50 mg tablet RxNorm: 516473 1 Tablet(s) PO daily 03/18/2017 03/19/2017 Inactive olanzapine 2.5 mg ta blet RxNorm: 242457 TAKE ONE TABLET BY MO UTH ONCE DAILY 02/28/2017 05/26/2017 In active Kenalog 40 mg/mL k[place]ie pension for injection RxNorm: 2755958 Milliliter(s) Inj 12/20/2016 12/20/2016 In active ceftriaxone 500 mg s olution for injection RxNorm: 7414292 1 Milliliter(s) Inj 12/17/2016 12/17/2016 In active Zithromax Z-Yan 250 mg tablet RxNorm: 601156 1 Tablet(s) PO UD 12/17/2016 12/21/2016 Inactive zpack Kenalog 40 mg/mL k[place]ie pension for injection RxNorm: 4532491 1 Milliliter(s) Inj 12/17/2016 12/17/2016 In active Synthroid 75 mcg tablet RxNorm: 187060 TAKE ONE TABLET BY MOUTH ONCE DAILY 11/08/2016 04/06/2017 In active lovastatin 20 mg tablet RxNorm: 647618 TAKE ONE TABLET BY MOUTH AT BEDTIME 10/28/2016 04/25/2017 In active fluoxetine 20 mg cap k[place] RxNorm: 772717 TAKE ONE CAPSULE BY M OUTH ONCE DAILY 10/28/2016 04/25/2017 In active Synthroid 75 mcg tablet RxNorm: 198478 TAKE ONE TABLET BY MOUTH ONCE DAILY 10/08/2016 11/06/2016 In active Zithromax Z-Yan 250 mg tablet RxNorm: 572261 1 Tablet(s) PO UD 07/29/2016 09/16/2016 Inactive zpack as directed olanzapine 2.5 mg ta blet RxNorm: 725621 TAKE ONE TABLET BY MO UTH ONCE DAILY 07/29/2016 06/23/2018 In active lovastatin 20 mg tablet RxNorm: 131378 TAKE ONE TABLET BY MOUTH AT BEDTIME 07/02/2016 10/27/2016 In active olanzapine 2.5 mg ta blet RxNorm: 289724 TAKE ONE TABLET BY MO UTH ONCE DAILY 04/29/2016 09/16/2016 In active olanzapine 2.5 mg ta blet RxNorm: 197981 TAKE ONE TABLET BY MO UTH ONCE DAILY 04/29/2016 04/28/2016 In active fluoxetine 20 mg cap k[place] RxNorm: 662433 TAKE ONE CAPSULE BY M OUTH ONCE DAILY 03/26/2016 09/21/2016 In active olanzapine 2.5 mg ta blet RxNorm: 065143 Tablet(s) TAKE ONE TA BLET BY MOUTH ONCE DAILY 01/31/2016 03/30/2016 Inactive olanzapine 2.5 mg ta blet RxNorm: 507338 Tablet(s) TAKE ONE TA BLET BY MOUTH ONCE DAILY 01/25/2016 01/30/2016 Inactive lovastatin 20 mg tablet RxNorm: 897919 TAKE ONE TABLET BY MOUTH AT BEDTIME 12/28/2015 06/24/2016 In active fluoxetine 20 mg cap kamer[place] RxNorm: 239291 Capsule(s) TAKE ONE C APSULE BY MOUTH ONCE DAILY 12/28/2015 09/16/2016 Inactive olanzapine 2.5 mg ta blet RxNorm: 986083 TAKE ONE TABLET BY MO UTH ONCE DAILY 11/24/2015 01/22/2016 In active mupirocin 2 % topica l ointment RxNorm: 125425 1 Application TOP BID 10/06/2015 10/12/2015 Inactive Synthroid 75 mcg tablet RxNorm: 684673 Tablet(s) PO daily TAKE ONE TABLET BY MO UTH EVERY DAY 09/18/2015 09/11/2016 Inactive [SAVINGS FOR NON-COVERED DR UGS -- BIN:[id number], PCN: ASPROD1, Group: XXXXX, ID# [email or web address], Questions: . THIS IS NOT INSURANCE.] Synthroid 75 mcg tablet RxNorm: 880287 Tablet(s) PO daily TAKE ONE TABLET BY MO UTH EVERY DAY 09/15/2015 09/17/2015 Inactive [SAVINGS FOR NON-COVERED DR UGS -- BIN:[id number], PCN: ASPROD1, Group: XXXXX, ID# [id number], Questions: . THIS IS NOT INSURANCE.] Synthroid 75 mcg tablet RxNorm: 164193 Tablet(s) TAKE ONE TABLET BY MOUTH EVERY DAY 09/14/2015 09/14/2015 Inactive [SAVINGS FOR NON-COVERED DRUGS -- BIN:00 3585, PCN: ASPROD1, Group: XXXXX, ID# [id number], Questions: . THIS IS NOT INSURANCE.] fluoxetine 20 mg cap kamer[place] RxNorm: 375150 TAKE ONE CAPSULE BY M OUTH ONCE DAILY 08/24/2015 12/21/2015 In active lovastatin 20 mg tablet RxNorm: 879349 1 Tablet(s) PO QHS TAKE ONE TABLET BY MO UTH AT BEDTIME 05/29/2015 12/24/2015 Inactive [SAVINGS FOR NON-COVERED DR UGS -- BIN:[id number], PCN: ASPROD1, Group: XXXXX, ID# [id number], Questions: . THIS IS NOT INSURANCE.] olanzapine 2.5 mg ta blet RxNorm: 514801 TAKE ONE TABLET BY MO UTH ONCE DAILY 05/25/2015 11/20/2015 In active olanzapine 2.5 mg ta blet RxNorm: 747346 1 Tablet(s) daily PATRIZIA E ONE TABLET BY MOUTH EVERY DAY 02/27/2015 05/24/2015 Inactive [SAVINGS FOR NON-COVERED DR UGS -- BIN:[id number], PCN: ASPROD1, Group: XXXXX, ID# [id number], Questions: . THIS IS NOT INSURANCE.] fluoxetine 20 mg cap kameron RxNorm: 900596 Capsule(s) TAKE ONE C APSULE BY MOUTH EVERY DAY 02/27/2015 08/23/2015 Inactive prednisone 20 mg tablet RxNorm: 154378 1 Tablet(s) PO BID 01/16/2015 01/18/2015 Inactive prednisone 20 mg tablet RxNorm: 633918 1 Tablet(s) PO BID 01/16/2015 01/15/2015 Inactive Zithromax Z-Yan 250 mg tablet RxNorm: 084958 1 Tablet(s) PO as doc tor directed 01/16/2015 07/28/2016 In active zpack as directed olanzapine 2.5 mg ta blet RxNorm: 457104 1 Tablet(s) daily PATRIZIA E ONE TABLET BY MOUTH EVERY DAY 11/24/2014 02/21/2015 Inactive [SAVINGS FOR NON-COVERED DR UGS -- BIN:[id number], PCN: ASPROD1, Group: XXXXX, ID# [id number], Questions: . THIS IS NOT INSURANCE.] lovastatin 20 mg tablet RxNorm: 059692 1 Tablet(s) PO QHS TAKE ONE TABLET BY MO [facility] AT BEDTIME 10/26/2014 05/23/2015 Inactive [SAVINGS FOR NON-COVERED DR UGS -- BIN:560429, PCN: ASPROD1, Group: XXXXX, ID# [id number], Questions: . THIS IS NOT INSURANCE.] Synthroid 75 mcg tablet RxNorm: 304057 1 Tablet(s) PO daily TAKE ONE TABLET BY MOUTH EVERY DAY 09/19/2014 12/17/2014 Inactive Synthroid 75 mcg tablet RxNorm: 055215 Tablet(s) TAKE ONE TABLET BY MOUTH EVERY DAY 09/19/2014 09/13/2015 Inactive [SAVINGS FOR NON-COVERED DRUGS -- BIN:00 3585, PCN: ASPROD1, Group: XXXXX, ID# [id number], Questions: . THIS IS NOT INSURANCE.] fluoxetine 20 mg cap kamer[place] RxNorm: 852624 TAKE ONE CAPSULE BY M OUTH EVERY DAY 08/04/2014 01/30/2015 In active fluoxetine 20 mg cap k[place] RxNorm: 638755 1 Capsule(s) PO daily TAKE ONE CAPSULE BY MOUTH EVERY DAY 08/02/2014 08/03/2014 Inactive [SAVINGS FOR UNINSURED ERNIE ENTS -- BIN:[id number], PCN: ASPROD1, Group: [id number], ID# [id number], Process claim through [email or web address], for questions: . THIS IS NOT INSURANCE.] lovastatin 20 mg tablet RxNorm: 777197 TAKE ONE TABLET BY MOUTH AT BEDTIME 07/25/2014 10/22/2014 In active olanzapine 2.5 mg ta blet RxNorm: 517970 Tablet(s) TAKE ONE TA BLET BY MOUTH EVERY DAY 07/19/2014 07/18/2014 Inactive olanzapine 2.5 mg ta blet RxNorm: 945331 TAKE ONE TABLET BY MO UTH EVERY DAY 07/19/2014 10/16/2014 In active Synthroid 75 mcg tablet RxNorm: 305330 1 Tablet(s) PO daily TAKE ONE TABLET BY MOUTH EVERY DAY 06/20/2014 06/19/2014 Inactive Synthroid 75 mcg tablet RxNorm: 468574 TAKE ONE TABLET BY MOUTH EVERY DAY 06/20/2014 09/18/2014 In active lovastatin 20 mg tablet RxNorm: 041937 TAKE ONE TABLET BY MOUTH AT BEDTIME 04/22/2014 07/20/2014 In active olanzapine 2.5 mg ta blet RxNorm: 017016 TAKE ONE TABLET BY MO UTH EVERY DAY 04/21/2014 07/18/2014 In active Synthroid 75 mcg tablet RxNorm: 871436 TAKE ONE TABLET BY MOUTH EVERY DAY 03/22/2014 06/19/2014 In active fluoxetine 20 mg cap k[place] RxNorm: 745415 TAKE ONE CAPSULE BY M OUTH EVERY DAY 02/02/2014 07/31/2014 In active lovastatin 20 mg tablet RxNorm: 993606 TAKE ONE TABLET BY MOUTH AT BEDTIME 01/20/2014 04/19/2014 In active olanzapine 2.5 mg ta blet RxNorm: 806234 TAKE ONE TABLET BY MO UTH EVERY DAY 01/14/2014 04/13/2014 In active amoxicillin 500 mg t ablet RxNorm: 955471 1 Tablet(s) PO TID 01/10/2014 01/16/2014 Inactive Rocephin 500 mg solu tion for injection RxNorm: 626553 Inj 01/1001/10/2014 Inactive Synthroid 75 mcg tablet RxNorm: 053803 Tablet(s) PO TAKE ONE TABLET BY MOUTH EV FERCHO DAY 12/27/2013 03/21/2014 Inactive lovastatin 20 mg tablet RxNorm: 703582 Tablet(s) PO TAKE ONE TABLET BY MOUTH AT BEDTIME 12/20/2013 01/19/2014 Inactive olanzapine 2.5 mg ta blet RxNorm: 549205 Tablet(s) PO TAKE ONE TABLET BY MOUTH EVERY DAY 12/17/2013 01/13/2014 Inactive Synthroid 75 mcg tablet RxNorm: 869601 Tablet(s) PO TAKE ONE TABLET BY MOUTH EV FERCHO DAY 11/22/2013 12/26/2013 Inactive lovastatin 20 mg tablet RxNorm: 114683 Tablet(s) PO TAKE ONE TABLET BY MOUTH AT BEDTIME 11/15/2013 12/19/2013 Inactive olanzapine 2.5 mg ta blet RxNorm: 696888 Tablet(s) PO TAKE ONE TABLET BY MOUTH EVERY DAY 11/15/2013 12/16/2013 Inactive Synthroid 75 mcg tablet RxNorm: 912804 Tablet(s) PO TAKE ONE TABLET BY MOUTH EV FERCHO DAY 10/25/2013 11/21/2013 Inactive lovastatin 20 mg tablet RxNorm: 532107 Tablet(s) PO TAKE ONE TABLET BY MOUTH AT BEDTIME 10/18/2013 11/14/2013 Inactive Zithromax 250 mg tablet RxNorm: 598161 Tablet(s) PO 08/30/2013 07/26/2014 Inactive zpac k as directed Synthroid 75 mcg tablet RxNorm: 111252 Tablet(s) PO TAKE ONE TABLET BY MOUTH EV FERCHO DAY 05/24/2013 10/24/2013 Inactive lovastatin 20 mg tablet RxNorm: 861332 Tablet(s) PO TAKE ONE TABLET BY MOUTH AT BEDTIME 04/19/2013 10/17/2013 Inactive olanzapine 2.5 mg ta blet RxNorm: 925053 1 Tablet(s) PO 02/04/2013 09/01/2013 Inactive fluoxetine 20 mg cap kameron RxNorm: 171004 Capsule(s) PO TAKE ON E CAPSULE BY MOUTH EVERY DAY 01/08/2013 02/01/2014 Inactive olanzapine 5 mg tablet RxNorm: 109556 1/2 Tablet(s) PO daily zyprexa 12/31/2012 02/03/2013 In active Synthroid 75 mcg tablet RxNorm: 225602 1 Tablet(s) PO daily 09/29/2012 03/27/2013 Inactive Vitamin D2 50,000 un it capsule RxNorm: 919305 1 Capsule(s) PO QW 09/29/2012 09/16/2016 Inactive one weekly x 8 weeks then 1000units dorcas y thereafter Synthroid 75 mcg tablet RxNorm: 948802 1 Tablet(s) PO daily 09/29/2012 09/28/2012 Inactive lovastatin 20 mg tablet RxNorm: 246399 Tablet(s) PO TAKE ONE TABLET BY MOUTH AT BEDTIME 09/21/2012 04/18/2013 Inactive fluoxetine 20 mg cap k[place] RxNorm: 784915 1 Capsule(s) PO daily TAKE ONE CAPSULE BY MOUTH EVERY DAY 09/16/2012 01/07/2013 Inactive Synthroid 50 mcg tablet RxNorm: 407056 1 Tablet(s) PO daily 09/14/2012 12/31/2012 Inactive brand name only fluoxetine 20 mg cap k[place] RxNorm: 530100 Capsule(s) PO TAKE ON E CAPSULE BY MOUTH EVERY DAY 09/07/2012 09/15/2012 Inactive Synthroid 50 mcg tablet RxNorm: 358395 1 Tablet(s) PO daily 09/07/2012 09/13/2012 Inactive brand name only niacin ER 500 mg tab let,extended release RxNorm: 975654 2 Tablet(s) PO daily 09/03/2012 10/12/2017 In active lovastatin 20 mg tablet RxNorm: 876834 1 Tablet(s) PO QHS TAKE ONE TABLET BY MO [facility] AT BEDTIME 08/26/2012 09/20/2012 Inactive Zithromax Z-Yan 250 mg tablet RxNorm: 954388 Tablet(s) PO UD 08/13/2012 12/31/2012 Inactive fluoxetine 20 mg cap k[place] RxNorm: 781799 Capsule(s) PO 05/11/2012 09/06/2012 Inactive TAKE ONE CAPSULE BY MOUTH EVERY DAY fluoxetine 20 mg cap k[place] RxNorm: 224861 1 Capsule(s) PO daily 01/06/2012 05/04/2012 Inactive Zyprexa 5 mg Tab RxNorm: 732408 Tablet(s) PO 01/06/2012 12/31/2012 Inactive TAKE ONE TABLET BY MOUTH EVERY DAY lovastatin 20 mg tablet RxNorm: 400913 Tablet(s) PO 12/24/2011 08/26/2012 Inactive TAKE ONE TABLET BY MOUTH AT BEDTIME Rocephin 500 mg Solu tion for Injection RxNorm: 7857940 Inj 1201/201112/31/2012 Inactive Keppra 500 mg tablet RxNorm: 654539 1 Tablet(s) PO BID No Start Date Active omeprazole 20 mg Cap , Delayed Release RxNorm: 588510 1 Capsule(s) PO BID No Start Date Active oxycodone-acetaminop hen 5 mg-325 mg Tab RxNorm: 2523918 1 Tablet(s) PO Q4 NV N No Start Date Active acyclovir 800 mg tablet RxNorm: 044676 1 Tablet(s) PO daily No Start Date Active letrozole 2.5 mg Tab RxNorm: 350659 1 Tablet(s) PO daily No Start Date Active multivitamin Cap RxNorm: 1 Capsule(s) PO daily No Start Date Active Aspirin Low Dose 81 mg tablet,delayed release RxNorm: 458780 1 Tablet(s) PO daily No Start Date Active Calcium 600 + D(3) 6 00 mg (1,500)-200 unit Tab RxNorm: 871200 1 Tablet(s) PO daily No Start Date Active Vitamin B-12 1,000 m cg tablet RxNorm: 462241 1 Tablet(s) PO daily No Start Date Active ferrous sulfate 325 mg (65 mg iron) tablet RxNorm: 052346 1 Tablet(s) PO daily No Start Date Active KCL 20 meq RxNorm: 1 PO daily No Start Date 10/12/2017 Inactive Zyprexa 5 mg Tab RxNorm: 638223 1 Tablet(s) PO daily No Start Date 01/05/2012 Inactive Zithromax Z-Yan 250 mg tablet RxNorm: 188166 Tablet(s) PO UD No Start Date 08/12/2012 Inactive Zithromax Z-Yan 250 mg tablet RxNorm: 337075 1 Tablet(s) PO UD No Start Date 04/28/2017 Inactive z pack as directed niacin ER 500 mg tab let,extended release RxNorm: 7012794 1 Tablet(s) PO daily No Start Date 09/02/2012 Inactive Vitamin D2 50,000 un it capsule RxNorm: 9989422 1 Capsule(s) PO QW No Start Date 09/28/2012 Inactive one weekly x 8 weeks then 1000units dorcas y thereafter Synthroid 50 mcg tablet RxNorm: 869441 1 Tablet(s) PO daily No Start Date 09/06/2012 Inactive brand name only acyclovir 400 mg Tab RxNorm: 812554 1 Tablet(s) PO BID No Start Date 09/15/2012 Inactive Zithromax Z-Yan 250 mg tablet RxNorm: 966799 1 Tablet(s) PO as doc tor directed No Start Date 01/15/2015 Inactive zpack as directed metoprolol tartrate 25 mg tablet RxNorm: 945779 1/2 Tablet(s) PO BID No Start Date 05/06/2018 Inactive fluoxetine 20 mg Tab RxNorm: 119466 1 Tablet(s) PO daily No Start Date 07/26/2014 Inactive REVLIMID 10 mg Cap RxNorm: 178735 1 Capsule(s) PO daily No Start Date 12/31/2012 Inactive lovastatin 20 mg Tab RxNorm: 092795 1 Tablet(s) PO QHS No Start Date 12/23/2011 Inactive aspirin 81 mg Cap, D elayed Release RxNorm: 185073 1 Capsule(s) PO daily No Start Date 12/30/2012 Inactive olanzapine 5 mg tablet RxNorm: 255613 1 Tablet(s) PO daily zyprexa No Start Date 12/30/2012 Inactive Zithromax 250 mg tablet RxNorm: 552444 Tablet(s) PO No Start Date 08/29/2013 Inactive zpac k as directed levofloxacin 500 mg Tab RxNorm: 952168 1 Tablet(s) PO daily No Start Date 06/26/2011 Inactive levothyroxine 50 mcg Tab RxNorm: 923216 1 Tablet(s) PO daily No Start Date 12/31/2012 Inactive dexamethasone 4 mg Tab RxNorm: 711473 2 Tablet(s) PO weekly No Start Date 12/31/2012 Inactive Medication Administered Medication Codes Instruc tions Start Date Status Kenalog 40 mg/mL suspension for injection RxNorm: 2288580 Milliliter 12/20/2016 No longer Active ceftriaxone 500 mg solution for injection RxNorm: 5021083 1Milliliter 12/17/2016 N o longer Active Kenalog 40 mg/mL suspension for injection RxNorm: 0175866 1Milliliter 12/17/2016 N o longer Active Rocephin 500 mg solution for injection RxNorm: 048945 01/10/2014 No longer A ctive Immunizations Vaccine [...] Item Item Code Result Date Free T4 Qyr430 FREE T4 1.06 ng/dL 11/18/2016 Tsh Ord6 [...] 33.2 pg 10/22/2016 Cbc With Differential Ord2 [place]% 36.7 % 10/22/2016 Cbc With Differential Ord2 MCHC 34.1 pg 10/22/2016 Cbc With Differential Ord2 Eos% 1.8 % 10/22/2016 Cbc With Differential Ord2 PLT 222 K/ul 10/22/2016 Cbc With Differential Ord2 Baso% 0.6 % 10/22/2016 Cbc With Differential Ord2 RDW 14.0 % 10/22/2016 Cbc With Differential Ord2 Neut ABS# 0.50 K/ul 10/22/2016 Cbc With Differential Ord2 Lymph ABS# 0.51 K/ul 10/22/2016 Cbc With Differential Ord2 [place] ABS# 0.6 K/ul 10/22/2016 Cbc With Differential Ord2 Eos ABS# 0.0 K/ul 10/22/2016 Cbc With Differential Ord2 Baso ABS# 0.0 K/ul 10/22/2016 Lipid Ord30 CHOL 99 mg/dL 10/22/2016 Lipid Ord30 HDL 38.0 mg/dl 10/22/2016 Lipid Ord30 TRIG 102 mg/dL 10/22/2016 Lipid Ord30 LDL 41 mg/dL 10/22/2016 Lipid Ord30 C/HDL 2.6 Ratio 10/22/2016 Comp Metabolic Fhy504 NA 135 mEq/L 10/22/2016 Comp Metabolic Hur108 K 4.5 mEq/L 10/22/2016 Comp Metabolic Xak427 CL 102 mEq/L 10/22/2016 Comp Metabolic Zkm203 CO2 20.0 mEq/L 10/22/2016 Comp Metabolic Hso093 AN ION GAP 18 10/22/2016 Comp Metabolic Gxq469 GL UCOSE 108 mg/dL 10/22/2016 Comp Metabolic Izm735 Cr eat 1.1 mg/dL 10/22/2016 Comp Metabolic Svq162 eG FR 53 ml/min/1.73m2 10/22 Comp Metabolic Ofp128 BUN 17 mg/dL 10/22/2016 Comp Metabolic Iir673 B/ C Ratio 15.7 Ratio 10/22/2016 Comp Metabolic Tcm690 CA LCIUM 8.9 mg/dL 10/22/2016 Comp Metabolic Vhc977 AL K PHOS 65 U/L 10/22/2016 Comp Metabolic Lih085 T(SGOT) 14 U/L 10/22/2016 Comp Metabolic Gli669 AL T(SGPT) 19 U/L 10/22/2016 Comp Metabolic Ihn954 BI LI T 0.8 mg/dL 10/22/2016 Comp Metabolic Sep460 AL BUMIN 3.5 g/dL 10/22/2016 Comp Metabolic Fvy195 TP RO 7.0 g/dL 10/22/2016 Comp Metabolic Pvq193 GL OB 3.5 g/dL 10/22/2016 Comp Metabolic Cdm982 A/ G Ratio 1.0 Ratio 10/22/2016 Comp Metabolic Zox642 Os mo 272 mOsmo 10/22/2016 Manual Differential Ord52 D-Neutr 38 % 10/22/2016 Manual Differential Ord52 D-Bands 15 % 10/22/2016 Manual Differential Ord52 D-Lymph 37 % 10/22/2016 Manual Differential Ord52 D-Eos 4 % 10/22/2016 Manual Differential Ord52 D-[place] 3 % 10/22/2016 Manual Differential Ord52 D-Aty Lymp 3 % 10/22/2016 Free T4 Jvw145 FREE T4 1.38 ng/dL 10/22/2016 Tsh Ord6 hTSH II 2.05 uIU/mL 10/22/2016 Free T4 Twi397 FREE T4 0.85 ng/dL 05/20/2016 Tsh Ord6 hTSH II 0.63 uIU/mL 05/20/2016 CHEM 14 20280123 AST 16 U/L 09/09/2013 CHEM 14 20280123 ALT 20 IU/L 09/09/2013 CHEM 14 20280123 BUN 17 MG/DL 09/09/2013 CHEM 14 20280123 ALBUMIN 3.6 GM/DL 09/09/2013 CHEM 14 20280123 CHLORIDE 102 MMOL/L 09/09/2013 CHEM 14 20280123 BILI TOT 0.3 MG/DL 09/09/2013 CHEM 14 2276315 ALK PHOS 88 U/L 09/09/2013 CHEM 14 3980294 SODIUM 138 MMOL/L 09/09/2013 CHEM 14 7350571 CREATINI NE 1.10 MG/DL 09/09/2013 CHEM 14 3672065 CALCIUM 9.0 MG/DL 09/09/2013 CHEM 14 4229740 POTASSIUM 4.8 MMOL/L 09/09/2013 CHEM 14 3956255 PROT TOT 6.7 GM/DL 09/09/2013 CHEM 14 6346974 GLUCOSE 113 MG/DL 09/09/2013 CHEM 14 1901929 BICARB 27 MMOL/L 09/09/2013 CHEM 14 1376478 ANION GAP 9 MEQ/L 09/09/2013 GFR CALC 4361293 GFR AA 60.0L ML/MIN 09/09/2013 GFR CALC 7175150 GFR NON -AA 50.0L ML/MIN 4 Review [...] pain 01/27/2018 Neurologic No syncope Psychiatric anxiety 07/1 Psychiatric depression 0 01/27/2018 Neurologic seizure 01/27 [...] pain 07/26/2014 Neurologic No syncope Psychiatric anxiety 12/2014 Psychiatric depression 0 07/26/2014 Hematologic/Lymphatic No [...] No lymph node enlargement/mass 01/25/2014 Psychiatric anxiety 02/2014 Psychiatric depression 0 01/25/2014 Constitutional recent [...] activity 03/18/2017 None Full Exam - General 1995 Psychiatric appearance Overall: well-groomed, good eye contact [...] clear 09/23/2013 None Full Exam - General 1995 Ears/Nose/Throat oral cavity/pharynx/larynx Overall: oral mucosa clear 09/23/2013 None Full Exam - General 1995 Ears/Nose/Throat oral cavity/pharynx/larynx Overall: oropharyngeal mucosa clear 09/23/2013 None Full Exam - General 1995 Ears/Nose/Throat oral cavity/pharynx/larynx Overall: no masses 09/23/2013 [...] retractions 06/03/2013 None Full Exam - General 1994 Respiratory auscultation Overall: breath sounds clear bilaterally 06/03/2013 None Full Exam - General 1994 [...] unsteadiness 06/03/2013 None Full Exam - General 1994 Abdomen abdominal exam Overall: no tenderness 06/03/2013 None Full Exam - General 1995 Abdomen abdominal exam Overall: normal bowel sounds 06/03/2013 None Full Exam - General 1995 Cardiovascular extremities Overall: no clubbing 06/03/2013 None Full Exam - General 1995 Lymphatic [...] developed 12/31/2012 None Full Exam - General 1994 Constitutional general appearance Overall: in no acute distress 12/31/2012 None Full Exam - General 1994 Constitutional general appearance Overall: well nourished 12/31/2012 None Full Exam - General 1994 Eyes pupils and irises Overall: pupils equal, round, reactive to light and accomodation 12/31/2012 None Full Exam - General 1994 [...] 1994 Ears/Nose/Throat oral cavity/pharynx/larynx Overall: no masses 12/31/2012 [...] time 12/31/2012 None Full Exam - General 1995 Psychiatric mood and affect Overall: normal mood and affect 12/31/2012 None Full Exam - General 1994 Psychiatric mood and affect Mood: happy 12/31/2012 [...] accomodation 10/01/2012 None Full Exam - General 1995 Ears/Nose/Throat otoscopic exam Overall: external auditory canals clear 10/01/2012 None Full Exam - General 1994 Lymphatic neck nodes Overall: anterior cervical chain benign 10/01/2012 None Full Exam - General 1994 Lymphatic neck nodes Overall: posterior cervical chain benign 10/01/2012 None Full Exam - General 1994 Neurologic cranial nerves Overall: crainial nerves 2 - 12 grossly intact 10/01/2012 None Full Exam - General 1994 Psychiatric orientation/consciousness Overall: oriented to person, place and time 10/01/2012 None Full Exam - General 1994 Psychiatric mood and affect Overall: normal mood and affect 10/01/2012 None Full Exam - General 1995 Psychiatric mood and affect Mood: happy 10/01/2012 None Full Exam - General 1994 Constitutional general appearance Overall: well nourished 09/03/2012 None Full Exam - General 1994 Constitutional general appearance Overall: well developed 09/03/2012 None Full Exam - General 1995 [...] accomodation 09/03/2012 None Full Exam - General 1994 Ears/Nose/Throat otoscopic exam Overall: tympanic membranes clear 09/03/2012 None Full Exam - General 1994 Ears/Nose/Throat otoscopic exam Overall: external auditory canals clear 09/03/2012 None Full Exam - General 1994 Ears/Nose/Throat oral cavity/pharynx/larynx Overall: oropharyngeal mucosa clear 09/03/2012 None Full Exam - General 1994 Ears/Nose/Throat oral cavity/pharynx/larynx Overall: no masses 09/03/2012 None Full Exam - General 1995 [...] Procedure Codes Date THER/PROPH/DIAG INJ SC/IM CPT-4: 48737 12/20/2016 TRIAMCINOLONE ACET I [place] NOS CPT-4: J3301 12/20/2016 TRIAMCINOLONE [place] NOS CPT-4: J3301 12/17/2016 ROCEPHIN, PER 250 MG CPT-4: J0696 12/17/2016 PPPS, SUBSEQ VISIT CPT- 4: G0439 12/11/2015 ADMIN PNEUMOCOCCAL V ACCINE Assigned to/Merissa Dupont SNCHRISTIE CT: [id number] CPT-4: [id number] 07/26/2014 Pneumococcal Polysac charide Vaccine, 23-Valent, Ad CPT-4: 66208 07/26/2014 ROCEPHIN, PER 250 MG CPT-4: J0696 01/10/2014 ROUTINE VENIPUNCTURE CPT-4: 84722 09/09/2013 PRESCRIP TRANSMIT A ERX SY CPT-4: G8553 02/04/2013 PRESCRIP TRANSMIT A ERX SY CPT-4: G8553 12/31/2012 THER/PROPH/DIAG INJ SC/IM CPT-4: 21729 06/26/2011 ROCEPHIN, PER 250 MG CPT-4: J0696 06/26/2011 Vital Signs Date Vital 06/30/2018 Blood Pressure 1: 120/80 Code: 8480-6 BMI: 28.2 Code: 11589-3 Heart Rate 1: 100 bpm Height: 5'1" SpO2: 94% Weight: 149 lbs 03/03/2018 Blood Pressure 1: 122/72 Code: 8480-6 BMI: 28.2 Code: 70023-2 Heart Rate 1: 100 bpm Height: 5'1" SpO2: 94% Weight: 149 lbs 01/27/2018 Blood Pressure 1: 112/70 Code: 8480-6 BMI: 27.8 Code: 12532-8 Heart Rate 1: 94 bpm Height: 5'1" SpO2: 94% Weight: 147 lbs 10/13/2017 Blood Pressure 1: 96/72 Code: 8480-6 BMI: 27.8 Code: 22887-1 Heart Rate 1: 106 bpm Height: 5'1" SpO2: 91% Weight: 147 lbs 08/07/2017 Blood Pressure 1: 120/80 Code: 8480-6 BMI: 29.7 Code: 16283-6 Heart Rate 1: 95 bpm Height: 5'1" SpO2: 94% Weight: 157 lbs 05/27/2017 Blood Pressure 1: 144/88 Code: 8480-6 BMI: 29.3 Code: 48032-5 Heart Rate 1: 94 bpm Height: 5'1" SpO2: 96% Weight: 155 lbs 04/10/2017 Blood Pressure 1: 140/88 Code: 8480-6 Blood Pressure 1: 126/78 Code: 8480-6 BMI: 28.5 Code: 87601-9 Heart Rate 1: 94 bpm Height: 5'1" SpO2: 96% Weight: 151 lbs 03/25/2017 Blood Pressure 1: 120/74 Code: 8480-6 03/18/2017 Blood Pressure 1: 150/98 Code: 8480-6 BMI: 28.6 Code: 54329-3 Heart Rate 1: 114 bpm Height: 5'1" SpO2: 96% Weight: 151 lbs 8 oz 12/17/2016 Blood Pressure 1: 146/86 Code: 8480-6 BMI: 26.1 Code: 84841-4 Heart Rate 1: 94 bpm Height: 5'1" SpO2: 95% Temperature: 36.1 (C ) / 97.0 (F) Weight: 138 lbs 09/17/2016 Blood Pressure 1: 148/88 Code: 8480-6 BMI: 26.5 Code: 99411-4 Heart Rate 1: 86 bpm Height: 5'1" SpO2: 93% Weight: 140 lbs 8 oz 05/20/2016 Blood Pressure 1: 128/82 Code: 8480-6 BMI: 26.3 Code: 48084-6 Heart Rate 1: 99 bpm Height: 5'1" SpO2: 92% Weight: 139 lbs 12/11/2015 Blood Pressure 1: 138/84 Code: 8480-6 BMI: 28.3 Code: 94993-8 Heart Rate 1: 95 bpm Height: 5'1" SpO2: 97% Waist Measure (cm): 89 cm Weight: 150 lbs 10/06/2015 Blood Pressure 1: 128/78 Code: 8480-6 BMI: 28.0 Code: 52206-6 Heart Rate 1: 94 bpm Height: 5'1" SpO2: 96% Weight: 148 lbs 09/21/2015 Blood Pressure 1: 152/78 Code: 8480-6 Blood Pressure 1: 126/94 Code: 8480-6 BMI: 28.0 Code: 35647-5 Heart Rate 1: 104 bpm Height: 5'1" SpO2: 98% Weight: 148 lbs 07/26/2014 Blood Pressure 1: 110/68 Code: 8480-6 BMI: 28.7 Code: 98406-7 Heart Rate 1: 98 bpm Height: 5'1" Weight: 152 lbs 01/25/2014 Blood Pressure 1: 120/78 Code: 8480-6 BMI: 29.3 Code: 26571-5 Heart Rate 1: 104 bpm Height: 5'1" Weight: 155 lbs 01/10/2014 Blood Pressure 1: 138/88 Code: 8480-6 Temperature: 37.1 (C) / 98.7 (F) Weight: 156 lbs 09/23/2013 Blood Pressure 1: 128/78 Code: 8480-6 BMI: 28.9 Code: 08854-5 Heart Rate 1: 88 bpm Height: 5'1" Weight: 153 lbs 09/09/2013 Blood Pressure 1: 110/68 Code: 8480-6 BMI: 28.5 Code: 62440-5 Heart Rate 1: 90 bpm Height: 5'1" SpO2: 90% Weight: 151 lbs 06/03/2013 Blood Pressure 1: 132/82 Code: 8480-6 BMI: 28.9 Code: 70928-7 Heart Rate 1: 88 bpm Height: 5'1" Weight: 153 lbs 02/04/2013 Blood Pressure 1: 140/90 Code: 8480-6 BMI: 29.3 Code: 35494-4 Heart Rate 1: 88 bpm Height: 5'1" Weight: 155 lbs 12/31/2012 Blood Pressure 1: 102/76 Code: 8480-6 BMI: 29.6 Code: 42903-8 Heart Rate 1: 112 bpm Height: 5'1" Weight: 156 lbs 8 oz 10/01/2012 Blood Pressure 1: 116/78 Code: 8480-6 BMI: 29.0 Code: 61037-6 Height: 5'2" Weight: 156 lbs 09/03/2012 Blood Pressure 1: 132/88 Code: 8480-6 Heart Rate 1: 88 bpm Weight: 154 lbs 8 oz 06/26/2011 Blood Pressure 1: 82/58 Code: 8480-6 BMI: 27.5 Code: 78552-2 Heart Rate 1: 80 bpm Height: 5'1" [...] of the thyroid 03/18/2017 None hypothyroid Quality administrative dietitian dejah 03/18/2017 None hypothyroid Onset and Resolution [...] Exacerbating Factors diet 09/17/2016 None hypothyroid Quality administrative dietitian dejah 09/17/2016 None hypothyroid Location at the [...] Alleviating Factors medication 12/31/2012 None hypothyroid Quality administrative dietitian dejah 12/31/2012 None hyperlipidemia Onset and Resolution [...] Family History hyperlipidemia 09/03/2012 None hypothyroid Quality administrative dietitian dejah 06/26/2011 None cough Location in the [...] Encounters Encounter Performer Loca tion Codes Date ([id number]) 30558 EST. P ATIENT, LEVEL III Diagnosis: Essential (primary) hypertension[ICD10: I10] Giovanna Robbins MD, [facility] CPT-4: 43872 06/30/2018 ([id number]) 84738 EST. P ATIENT, LEVEL III Diagnosis: Essential (primary) hypertension[ICD10: I10] Disha Robbins MD, C CPT-4: 32059 03/03/2018 ([id number]) 74600 EST. 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 P ATIENT, LEVEL III Diagnosis: Other hypotension[ICD10: I95.89] Diagnosis: Ventricular tachycardia[ICD10: I47.2] Disha Robbins MD, [facility] CPT-4: 14758 10/13/2017 ([id number]) 77201 EST. P ATIENT, LEVEL III Diagnosis: Essential (primary) hypertension[ICD10: I10] Disha Robbins MD, C CPT-4: 27261 08/07/2017 ([id number]) 41442 EST. P ATIENT, LEVEL III Diagnosis: Open bite of left upper arm, initial encounter[ICD10: S41.152A] Disha Robbins MD, [facility] CPT-4: 63967 05/27/2017 ([id number]) 46543 EST. P ATIENT, LEVEL III Diagnosis: Essential (primary) hypertension[ICD10: I10] Disha Robbins MD, C CPT-4: 96357 04/10/2017 ([id number]) Miscellaneou s no charge Diagnosis: Essential (primary) hypertension[ICD10: I10] Tanna Robbins MD, [facility] CPT-4: 15328 03/25/2017 ([id number]) 57292 EST. P ATIENT, LEVEL IV Diagnosis: Essential (primary) hypertension[ICD10: I10] Diagnosis: Atrophy of thyroid (acquired)[ICD10: E03.4] Diagnosis: Mixed hyperlipidemia[ICD10: E78.2] Disha Robbins MD, [facility] CPT- 4: 41483 03/18/2017 ([id number]) 93102 EST. P ATIENT, LEVEL III Diagnosis: Cough[ICD10: R05] Diagnosis: Acute bronchitis, unspecified[ICD10: J20.9] Giovanna Robbins MD, [facility] CPT-4: 49218 12/17/2016 ([id number]) 75016 EST. P ATIENT, LEVEL IV Diagnosis: Atrophy of thyroid (acquired)[ICD10: E03.4] Diagnosis: Mixed hyperlipidemia[ICD10: E78.2] Diagnosis: Generalized anxiety disorder[ICD10: F41.1] Disha Robbins MD, [facility] CPT-4: 32057 09/17/2016 ([id number]) 88124 EST. P ATIENT, LEVEL III Diagnosis: Atrophy of thyroid (acquired)[ICD10: E03.4] Diagnosis: Generalized anxiety disorder[ICD10: F41.1] Disha Robbins MD, [facility] CPT-4: 44088 05/20/2016 96248 EST. PATIENT, LEVEL II Diagnosis: Blister (nonthermal), right great toe, initial encounter[ICD10: S90.421A] Giovanna Robbins MD, [facility] CPT-4: 55031 10/06/2015 ([id number]) 27485 EST. P ATIENT, LEVEL IV Diagnosis: Elevated blood-pressure reading, without diagnosis of hypertension[ICD10: R03.0] Diagnosis: Mixed hyperlipidemia[ICD10: E78.2] Diagnosis: Hypothyroidism, unspecified[ICD10: E03.9] Giovanna Robbins MD, [facility] CPT-4: 76742 09/21/2015 ([id number]) 79117 EST. P ATIENT, LEVEL IV Diagnosis: HYPERLIPIDEMIA[ICD9: 272.4] Diagnosis: HYPOTHYROIDISM[ICD9: 244.9] Diagnosis: Need for pneumococcal vaccine[ICD9: V03.82] Disha Robbins MD, C CPT-4: 36806 07/26/2014 ([id number]) 35924 EST. P ATIENT, LEVEL IV Diagnosis: HYPERLIPIDEMIA[ICD9: 272.4] Diagnosis: HYPOTHYROIDISM[ICD9: 244.9] Diagnosis: DEPRESSIVE DISORDER NEC[ICD9: 311] Dihsa Robbins MD, [facility] CPT- 4: 08092 01/25/2014 ([id number]) 13244 EST. P ATIENT, LEVEL III Diagnosis: ACUTE PHARYNGITIS[ICD9: 462] Giovanna Robbins MD, [facility] CPT- 4: 03404 01/10/2014 ([id number]) 39500 EST. P ATIENT, LEVEL III Diagnosis: GENERALIZED ANXIETY DISEASE[ICD9: 300.02] Diagnosis: Ear pain[ICD9: 388.70] Disha Robbins MD, [facility] CPT-4: 51904 09/23/2013 ([id number]) 20687 EST. P ATIENT, LEVEL IV Diagnosis: BACTERIAL PNEUMONIA[ICD9: 482.9] Diagnosis: Encounter for long-term (current) use of other medications[ICD9: V58.69] Diagnosis: HYPOTHYROIDISM[ICD9: 244.9] Diagnosis: DEPRESSIVE DISORDER NEC[ICD9: 311] Disha Robbins MD, [facility] CPT- 4: 75353 09/09/2013 ([id number]) 34033 EST. 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 P ATIENT, LEVEL IV Diagnosis: Renal insufficiency[ICD9: 593.9] Diagnosis: HYPERLIPIDEMIA[ICD9: 272.4] Diagnosis: DEPRESSIVE DISORDER NEC[ICD9: 311] Diagnosis: KIMANI (generalized anxiety disorder)[ICD9: 300.02] Disha Robbins MD, C CPT-4: 76738 10/01/2012 ([id number]) 85039 EST. P ATIENT, LEVEL IV Diagnosis: HYPERLIPIDEMIA[ICD9: 272.4] Diagnosis: DEPRESSIVE DISORDER NEC[ICD9: 311] Diagnosis: KMIANI (generalized anxiety disorder)[ICD9: 300.02] Disha Robbins MD, C CPT-4: 11164 09/03/2012 49978 EST. PATIENT, LEVEL IV Diagnosis: HYPOTHYROIDISM[ICD9: 244.9] Diagnosis: HYPERLIPIDEMIA[ICD9: 272.4] Diagnosis: ACUTE MAXILLARY SINUSITIS[ICD9: 461.0] Disha Robbins MD, [facility] CPT-4: 75529 06/26/2011 Plan of Care Planned Activity Notes C odes Status Date Appointment: Disha Robbins WPtel: [address] [place], [place] [id number] (15 min) Moderate 11/03/2018 Visit Plan: Hypertension [...] at home. 03/03/2018 Appointment: Disha Robbins WPtel: [phone] [id number] (15 min) Moderate 03/03/2018 Patient Education: Patient Medication Summary Completed 03/03/2018 Appointment: Disha Robbins WPtel: [phone] [id number] (15 min) Moderate 02/03/2018 Visit Plan: AVM - discussed with th e patient and her - we will order an MRI of the brain. Pt has been advised that since the seizure she should not be driving and she should continue with Keppra as previously prescribed. 01/27/2018 Appointment: Disha Robbins WPtel: [phone] [id number] (15 min) Moderate 01/27/2018 Patient Education: Patient Medication Summary Completed 01/27/2018 Care Plan: MRI BRAIN STEM W/O DYE Pending 01/27/2018 Visit Plan: Blood pressure low - re commended pt to increase the sodium in her diet. Tachycardia - no change in dose of toprol at this time. 10/13/2017 Appointment: Disha Robbins WPtel: [phone] [id number] (15 min) Moderate 10/13/2017 Patient Education: Patient [...] at home. 08/07/2017 Appointment: Disha Robbins WPtel: [phone] [id number] [place] (15 min) Moderate 08/07/2017 Patient Education: Patient Medication Summary Completed 08/07/2017 Visit Plan: Cat bite to arm - cellu litis - continue with augmentin - call if not improving. Advised pt to have animal control pickling grader the stray cat that bit her. 05/27/2017 Appointment: Disha [facility]bins [facility]el[id number] (15 min) Moderate 05/27/2017 Patient Education: Patient [...] at home. 04/10/2017 Appointment: Disha Robbins WPtel: [phone] (15 min) Moderate 04/10/2017 Patient Education: Patient [...] to medications. 03/18/2017 Appointment: Disha Robbins WPtel: [phone] [id number] (15 min) Moderate 03/18/2017 Patient Education: Patient [...] acutely worsen. 12/17/2016 Appointment: Giovanna Gilmore [phone] (30 min) Complex 12/17/2016 Patient Education: Patient [...] medications. 09/17/2016 Appointment: Disha Robbins WPtel: [phone] [id number] (15 min) Moderate 09/17/2016 Patient Education: Patient [...] medications. 05/20/2016 Appointment: Disha Robbins WPtel: [phone] [id number] (15 min) Moderate 05/20/2016 Patient Education: Patient Medication Summary Completed 05/20/2016 Care Plan: Tsh Pending 05/20/2016 Care Plan: Free T4 Pending 05/20/2016 Care Plan: SCREENINGMAMMOGRAPHYDIGITAL [facility] 74410-3 Pending 12/12/2015 Visit Plan: Medicare Exam - [...] surrogate. 12/11/2015 Appointment: Tanna Marquez WPtel: [phone] [facility] [facility] - Annual Wellness Visit 12/11/2015 Patient Education: [...] q 3 months or q 6 mo nt based on previous levels of control. Chronic Depression and anxiety - the pt has symptoms of chronic anxiety and depression that have been fairly well controlled since the last office visit. The pt has expected periods of exacerbation with abatement of the symptoms with change in situational exposure. No change in current medications. 07/26/2014 Appointment: Disha Robbins WPtel: [address] [place], [place] [phone] Follow up 07/26/2014 Patient Education: Patient Medication [...] current medications. 01/25/2014 Appointment: Disha Robbins WPtel: [address] [place], [place] [phone] Follow up 01/25/2014 Patient Education: Patient Medication Summary Completed 01/25/2014 Visit Plan: Pharyngitis-Discussed n atural and expected course of this diagnosis and need to alert me if symtpoms do not follow expected course, or if any worse. Recommended salt water gargles as needed for pain. Ty lenol/motrin as needed for fever/discomfort. 01/10/2014 Patient Education: Patient Medication Summary Completed 01/10/2014 Appointment: Disha Robbins WPtel: [address] [place], [place] [phone] Follow up 12/02/2013 Visit Plan: Cerumen on [...] current medications. 09/23/2013 Appointment: Disha Robbins WPtel: [address] [place], [place] [phone] Follow up 09/23/2013 Patient Education: Patient Medication [...] current medications. 09/09/2013 Appointment: Disha Robbins WPtel: [address] [place], [place] [id number] [facility] follow up 09/09/2013 Patient Education: Patient Medication [...] symptoms are not improving. 06/03/2013 Appointment: Disha Robbins WPtel: [address] [place], [place] [id number] Follow up 06/03/2013 Patient Education: Patient Medication [...] clinic ETHEL. 02/04/2013 Appointment: Disha Robbins WPtel: [phone] [id number] [place] Other 02/04/2013 Patient Education: Patient Medication Summary Completed 02/04/2013 Appointment: Disha Robbins WPtel: [phone] [id number] Follow up 01/28/2013 Visit Plan: Extrapyramidal movement [...] of medications. 12/31/2012 Appointment: Disha Robbins WPtel: [phone] [id number] Follow up 12/31/2012 Patient Education: Patient Medication [...] dietary changes. 10/01/2012 Appointment: Disha Robbins WPtel: [phone] [id number] Follow up 10/01/2012 Patient Education: Patient Medication [...] medications. 09/03/2012 Appointment: Disha Robbins WPtel: [phone] [facility] [place] Follow up 09/03/2012 Patient Education: Patient Medication [...] this time. 06/26/2011 Appointment: Disha Robbins WPtel: [id number] Other 06/26/2011 Patient Education: Patient Medication Summary Completed 06/26/2011 Instructions Comment start on Losartan - this is for [...] situational exposure. No change in current medications. increase sodium in d iet. Blood pressure low - recommended pt to increase the sodium in her diet. Tachycardia - no change in dose of toprol at this time. rocephin/kenalog zpack -start today call later this week if not better and we will add on 2nd antibiotic such as cefdinir . Bronchitis - acute case of bronchitis identified. Pt has been given antibiotics, breathing treatments as appropriate, and pt has been instructed to call if symptoms are not improved, or if symptoms acutely worsen. . Pharyngitis-Discus sed natural and expected course of this diagnosis and need to alert me if symtpoms do not follow expected course, or if any worse. Recommended salt water gargles as needed for pain. Tylenol/motrin as needed for fever/discomfort. . Medicare Exam - to day we [...] her DOPA paperwork for health care surrogate. . Hypothyroidism - p t with chronic [...] exposure. No change in current medications. . Chronic Depression and anxiety - the [...] if the symptoms are not improving. . Rash-does not appe ar to be [...] in blood pressure readings at home. . Hypothyroidism - p t with chronic [...] exposure. No change in current medications. . Blister of toe-aster ined today in the office and occlusive dressing applied-RX for bactroban ointment and wound care instructions provided- instructed patient to stop draining blister at home-call for any s/s of infection-redness, drainage, warmth, etc or any other concerns. Patient verbalized understanding of plan. go to [facility] and get a flu [...] should continue with Keppra as previously prescribed. . Hypertension - wel l controlled - continue with current medications, continue with no added salt diet. Pt has been encouraged to exercise daily. The pt has been advised to call the office if there are any acute concerns about change in blood pressure readings at home. . Elevated Blood Pr essure - without [...] months based on previous levels of control. . Cerumen on Ear jet m - [...] exposure. No change in current medications. . Cat bite to arm - cellulitis - continue with augmentin - call if not improving. Advised pt to have animal control pickling grader the stray cat that bit her. . Hypertension - wel l controlled - continue with current medications, continue with no added salt diet. Pt has been encouraged to exercise daily. The pt has been advised to call the office if there are any acute concerns about change in blood pressure readings at home. Increase fluids - NO MOTRIN, IBUPROFEN, MELOXICAM, [...]
--- OUTSIDE RECORDS SUMMARY | 2019-11-16 08:52 | XMS REPORT | CCD ---
Author Author Nikole Robbins Organization [facility] Address [address] [place] [address] Phone Care Team Providers Care Promotions Firm Accounts Manager Name Role Phone PP Unavailable CCM Unavailable Summary Purpose Interface Exchange Insurance Providers Payer name Policy type / Coverage type Covered constitution party ID Effective Begin Date Effective End Date WPS Medicare Part B Medicare Part B [id number] 2013 Unknown [employer] Medicare Part B [id number] 2013 Unknown Family history Son Diagnosis Age At [...] ntly unemployed 06/26/[address]: 789293650 Never smoker 06/26/[address]: 980652540 Never drinks alcohol 06/26/2011 Has the patient ever used illegal drugs? Unknown Has never used illegal drugs 011 Allergies, Adverse Reactions, Alerts Allergies, Adverse Reactions, Alerts data not found Past Medical History Illness Codes Condition Status Onset Date Resolved Date Rash and other nonsp ecific skin eruption ICD-9: 782.1 ICD-10: R21 Active 12/20/2016 Unknown Acute bronchitis, un specified ICD-9: 466.0 ICD-10: J20.9 Active 12/17/2016 Unknown Cough ICD-9: 786.2 ICD-10: R05 Active 12/17/2016 Unknown Atrophy of thyroid ( acquired) ICD-9: 244.8 ICD-10: E03.4 Active 05/19/2016 Unknown Generalized anxiety disorder ICD-9: 300.02 ICD-10: [...] Condition Codes Effectiv e Dates Condition Status Rash and other nonsp ecific skin eruption ICD-9: 782.1 ICD-10: R21 12/20/2016 Active Acute bronchitis, un specified ICD-9: 466.0 ICD-10: J20.9 12/17/2016 Active Cough ICD-9: 786.2 ICD-10: R05 12/17/2016 Active Atrophy of thyroid ( acquired) ICD-9: 244.8 ICD-10: E03.4 05/19/2016 Active Generalized anxiety disorder ICD-9: 300.02 ICD-10: [...] Date Stop Date Sta tus Fill Instructions Kenalog 40 mg/mL kassie pension for injection RxNorm: 5628873 Milliliter(s) Inj 12/20/2016 12/20/2016 In active ceftriaxone 500 mg s olution for injection RxNorm: 4212941 1 Milliliter(s) Inj 12/17/2016 12/17/2016 In active Zithromax Z-Yan 250 mg tablet RxNorm: 313578 1 Tablet(s) PO UD 12/17/2016 12/21/2016 Inactive zpack Kenalog 40 mg/mL kassie pension for injection RxNorm: 0737490 1 Milliliter(s) Inj 12/17/2016 12/17/2016 In active Synthroid 75 mcg tablet RxNorm: 297727 TAKE ONE TABLET BY MOUTH ONCE DAILY 11/08/2016 04/06/2017 Ac tive lovastatin 20 mg tablet RxNorm: 826106 TAKE ONE TABLET BY MOUTH AT BEDTIME 10/28/2016 04/25/2017 Ac tive fluoxetine 20 mg cap k[place] RxNorm: 615486 TAKE ONE CAPSULE BY OUT ONCE DAILY 10/28/2016 04/25/2017 Ac tive Synthroid 75 mcg tablet RxNorm: 401034 TAKE ONE TABLET BY MOUTH ONCE DAILY 10/08/2016 11/06/2016 In active olanzapine 2.5 mg ta blet RxNorm: 909438 TAKE ONE TABLET BY MO UTH ONCE DAILY 07/29/2016 12/25/2016 In active Zithromax Z-Yan 250 mg tablet RxNorm: 492209 1 Tablet(s) PO UD 07/29/2016 09/16/2016 Inactive zpack as directed lovastatin 20 mg tablet RxNorm: 205877 TAKE ONE TABLET BY MOUTH AT BEDTIME 07/02/2016 10/27/2016 In active olanzapine 2.5 mg ta blet RxNorm: 189984 TAKE ONE TABLET BY MO UTH ONCE DAILY 04/29/2016 09/16/2016 In active olanzapine 2.5 mg ta blet RxNorm: 036733 TAKE ONE TABLET BY MO UTH ONCE DAILY 04/29/2016 04/28/2016 In active fluoxetine 20 mg cap k[place] RxNorm: 957625 TAKE ONE CAPSULE BY M OUTH ONCE DAILY 03/26/2016 09/21/2016 In active olanzapine 2.5 mg ta blet RxNorm: 462980 Tablet(s) TAKE ONE TA BLET BY MOUTH ONCE DAILY 01/31/2016 03/30/2016 Inactive olanzapine 2.5 mg ta blet RxNorm: 545677 Tablet(s) TAKE ONE TA BLET BY MOUTH ONCE DAILY 01/25/2016 01/30/2016 Inactive lovastatin 20 mg tablet RxNorm: 100598 TAKE ONE TABLET BY MOUTH AT BEDTIME 12/28/2015 06/24/2016 In active fluoxetine 20 mg cap [place] RxNorm: 794420 Capsule(s) TAKE ONE C APSULE BY MOUTH ONCE DAILY 12/28/2015 09/16/2016 Inactive olanzapine 2.5 mg ta blet RxNorm: 225042 TAKE ONE TABLET BY MO UTH ONCE DAILY 11/24/2015 01/22/2016 In active mupirocin 2 % topica l ointment RxNorm: 932526 1 Application TOP BID 10/06/2015 10/12/2015 Inactive Synthroid 75 mcg tablet RxNorm: 588119 Tablet(s) PO daily TAKE ONE TABLET BY MO UTH EVERY DAY 09/18/2015 09/11/2016 Inactive [SAVINGS FOR NON-COVERED DR HAMMOND -- BIN:[id number], PCN: [id number], Group: XXXXX, ID# [id number], Questions: . THIS IS NOT INSURANCE.] Synthroid 75 mcg tablet RxNorm: 127283 Tablet(s) PO daily TAKE ONE TABLET BY MO UTH EVERY DAY 09/15/2015 09/17/2015 Inactive [SAVINGS FOR NON-COVERED DR MOCKS -- BIN:440029, PCN: ASPROD1, Group: XXXXX, ID# [id number], Questions: . THIS IS NOT INSURANCE.] Synthroid 75 mcg tablet RxNorm: 665981 Tablet(s) TAKE ONE TABLET BY MOUTH EVERY DAY 09/14/2015 09/14/2015 Inactive [SAVINGS FOR NON-COVERED DRUGS -- BIN:00 3585, PCN: ASPROD1, Group: XXXXX, ID# [id number], Questions: . THIS IS NOT INSURANCE.] fluoxetine 20 mg cap kameron RxNorm: 313688 TAKE ONE CAPSULE BY M OUTH ONCE DAILY 08/24/2015 12/21/2015 In active lovastatin 20 mg tablet RxNorm: 244121 1 Tablet(s) PO QHS TAKE ONE TABLET BY MO UTH AT BEDTIME 05/29/2015 12/24/2015 Inactive [SAVINGS FOR NON-COVERED DR UGS -- BIN:[id number], PCN: ASPROD1, Group: XXXXX, ID# [id number], Questions: . THIS IS NOT INSURANCE.] olanzapine 2.5 mg ta blet RxNorm: 19990922 TAKE ONE TABLET BY MO UT ONCE DAILY 05/25/2015 11/20/2015 In active olanzapine 2.5 mg ta blet RxNorm: 19990922 1 Tablet(s) daily PATRIZIA E ONE TABLET BY MOUTH EVERY DAY 02/27/2015 05/24/2015 Inactive [SAVINGS FOR NON-COVERED DR UGS -- BIN:805380, PCN: ASPROD1, Group: XXXXX, ID# [id number], Questions: . THIS IS NOT INSURANCE.] fluoxetine 20 mg cap kamer[place] RxNorm: 634604 Capsule(s) TAKE ONE C APSULE BY MOUTH EVERY DAY 02/27/2015 08/23/2015 Inactive prednisone 20 mg tablet RxNorm: 879571 1 Tablet(s) PO BID 01/16/2015 01/18/2015 Inactive prednisone 20 mg tablet RxNorm: 488308 1 Tablet(s) PO BID 01/16/2015 01/15/2015 Inactive Zithromax Z-Yan 250 mg tablet RxNorm: 141162 1 Tablet(s) PO as doc tor directed 01/16/2015 07/28/2016 In active zpack as directed olanzapine 2.5 mg ta blet RxNorm: 19990922 1 Tablet(s) daily PATRIZIA E ONE TABLET BY MOUTH EVERY DAY 11/24/2014 02/21/2015 Inactive [SAVINGS FOR NON-COVERED DR UGS -- BIN:787511, PCN: ASPROD1, Group: XXXXX, ID# [id number], Questions: . THIS IS NOT INSURANCE.] lovastatin 20 mg tablet RxNorm: 443700 1 Tablet(s) PO QHS TAKE ONE TABLET BY MO UTH AT BEDTIME 10/26/2014 05/23/2015 Inactive [SAVINGS FOR NON-COVERED DR UGS -- BIN:376670, PCN: ASPROD1, Group: XXXXX, ID# [id number], Questions: . THIS IS NOT INSURANCE.] Synthroid 75 mcg tablet RxNorm: 252887 1 Tablet(s) PO daily TAKE ONE TABLET BY MOUTH EVERY DAY 09/19/2014 12/17/2014 Inactive Synthroid 75 mcg tablet RxNorm: 931837 Tablet(s) TAKE ONE TABLET BY MOUTH EVERY DAY 09/19/2014 09/13/2015 Inactive [SAVINGS FOR NON-COVERED DRUGS -- BIN:00 3585, PCN: ASPROD1, Group: XXXXX, ID# [id number], Questions: . THIS IS NOT INSURANCE.] fluoxetine 20 mg cap kameron RxNorm: 182485 TAKE ONE CAPSULE BY M OUTH EVERY DAY 08/04/2014 01/30/2015 In active fluoxetine 20 mg cap kameron RxNorm: 048674 1 Capsule(s) PO daily TAKE ONE CAPSULE BY MOUTH EVERY DAY 08/02/2014 08/03/2014 Inactive [SAVINGS FOR UNINSURED ERNIE ENTS -- BIN:559960, PCN: ASPROD1, Group: [id number], ID# [id number], Process claim through [employer], for questions: . THIS IS NOT INSURANCE.] lovastatin 20 mg tablet RxNorm: 211100 TAKE ONE TABLET BY MOUTH AT BEDTIME 07/25/2014 10/22/2014 In active olanzapine 2.5 mg ta blet RxNorm: 574666 Tablet(s) TAKE ONE TA BLET BY MOUTH EVERY DAY 07/19/2014 07/18/2014 Inactive olanzapine 2.5 mg ta blet RxNorm: 804495 TAKE ONE TABLET BY MO UTH EVERY DAY 07/19/2014 10/16/2014 In active Synthroid 75 mcg tablet RxNorm: 363992 1 Tablet(s) PO daily TAKE ONE TABLET BY MOUTH EVERY DAY 06/20/2014 06/19/2014 Inactive Synthroid 75 mcg tablet RxNorm: 821081 TAKE ONE TABLET BY MOUTH EVERY DAY 06/20/2014 09/18/2014 In active lovastatin 20 mg tablet RxNorm: 163549 TAKE ONE TABLET BY MOUTH AT BEDTIME 04/22/2014 07/20/2014 In active olanzapine 2.5 mg ta blet RxNorm: 100425 TAKE ONE TABLET BY MO UTH EVERY DAY 04/21/2014 07/18/2014 In active Synthroid 75 mcg tablet RxNorm: 803030 TAKE ONE TABLET BY MOUTH EVERY DAY 03/22/2014 06/19/2014 In active fluoxetine 20 mg cap [place] RxNorm: 900404 TAKE ONE CAPSULE BY M OUTH EVERY DAY 02/02/2014 07/31/2014 In active lovastatin 20 mg tablet RxNorm: 595877 TAKE ONE TABLET BY MOUTH AT BEDTIME 01/20/2014 04/19/2014 In active olanzapine 2.5 mg ta blet RxNorm: 083439 TAKE ONE TABLET BY MO UTH EVERY DAY 01/14/2014 04/13/2014 In active amoxicillin 500 mg t ablet RxNorm: 294649 1 Tablet(s) PO TID 01/10/2014 01/16/2014 Inactive Rocephin 500 mg solu tion for injection RxNorm: 581306 Inj 01/1001/10/2014 Inactive Synthroid 75 mcg tablet RxNorm: 681445 Tablet(s) PO TAKE ONE TABLET BY MOUTH EV FERCHO DAY 12/27/2013 03/21/2014 Inactive lovastatin 20 mg tablet RxNorm: 734677 Tablet(s) PO TAKE ONE TABLET BY MOUTH AT BEDTIME 12/20/2013 01/19/2014 Inactive olanzapine 2.5 mg ta blet RxNorm: 956205 Tablet(s) PO TAKE ONE TABLET BY MOUTH EVERY DAY 12/17/2013 01/13/2014 Inactive Synthroid 75 mcg tablet RxNorm: 064880 Tablet(s) PO TAKE ONE TABLET BY MOUTH EV FERCHO DAY 11/22/2013 12/26/2013 Inactive lovastatin 20 mg tablet RxNorm: 331453 Tablet(s) PO TAKE ONE TABLET BY MOUTH AT BEDTIME 11/15/2013 12/19/2013 Inactive olanzapine 2.5 mg ta blet RxNorm: 739263 Tablet(s) PO TAKE ONE TABLET BY MOUTH EVERY DAY 11/15/2013 12/16/2013 Inactive Synthroid 75 mcg tablet RxNorm: 468975 Tablet(s) PO TAKE ONE TABLET BY MOUTH EV FERCHO DAY 10/25/2013 11/21/2013 Inactive lovastatin 20 mg tablet RxNorm: 191323 Tablet(s) PO TAKE ONE TABLET BY MOUTH AT BEDTIME 10/18/2013 11/14/2013 Inactive Zithromax 250 mg tablet RxNorm: 889074 Tablet(s) PO 08/30/2013 07/26/2014 Inactive zpac k as directed Synthroid 75 mcg tablet RxNorm: 746036 Tablet(s) PO TAKE ONE TABLET BY MOUTH 05/24/2013 10/24/2013 Inactive lovastatin 20 mg tablet RxNorm: 564467 Tablet(s) PO TAKE ONE TABLET BY MOUTH AT BEDTIME 04/19/2013 10/17/2013 Inactive olanzapine 2.5 mg ta blet RxNorm: 271742 1 Tablet(s) PO 02/04/2013 09/01/2013 Inactive fluoxetine 20 mg cap kameron RxNorm: 580930 Capsule(s) PO TAKE ON E CAPSULE BY MOUTH EVERY DAY 01/08/2013 02/01/2014 Inactive olanzapine 5 mg tablet RxNorm: 311779 1/2 Tablet(s) PO daily zyprexa 12/31/2012 02/03/2013 In active Synthroid 75 mcg tablet RxNorm: 348799 1 Tablet(s) PO daily 09/29/2012 03/27/2013 Inactive Vitamin D2 50,000 un it capsule RxNorm: 939749 1 Capsule(s) PO QW 09/29/2012 09/16/2016 Inactive one weekly x 8 weeks then 1000units dorcas y thereafter Synthroid 75 mcg tablet RxNorm: 554200 1 Tablet(s) PO daily 09/29/2012 09/28/2012 Inactive lovastatin 20 mg tablet RxNorm: 263403 Tablet(s) PO TAKE ONE TABLET BY MOUTH AT BEDTIME 09/21/2012 04/18/2013 Inactive fluoxetine 20 mg cap k[place] RxNorm: 957510 1 Capsule(s) PO daily TAKE ONE CAPSULE BY MOUTH EVERY DAY 09/16/2012 01/07/2013 Inactive Synthroid 50 mcg tablet RxNorm: 654169 1 Tablet(s) PO daily 09/14/2012 12/31/2012 Inactive brand name only fluoxetine 20 mg cap k[place]on RxNorm: 900324 Capsule(s) PO TAKE ON E CAPSULE BY MOUTH EVERY DAY 09/07/2012 09/15/2012 Inactive Synthroid 50 mcg tablet RxNorm: 816323 1 Tablet(s) PO daily 09/07/2012 09/13/2012 Inactive brand name only niacin ER 500 mg tab let,extended release RxNorm: 289948 2 Tablet(s) PO daily 09/03/2012 No Stop Date Active lovastatin 20 mg tablet RxNorm: 027456 1 Tablet(s) PO QHS TAKE ONE TABLET BY MO [facility] AT BEDTIME 08/26/2012 09/20/2012 Inactive Zithromax Z-Yan 250 mg tablet RxNorm: 141848 Tablet(s) PO UD 08/13/2012 12/31/2012 Inactive fluoxetine 20 mg cap k[place] RxNorm: 831139 Capsule(s) PO 05/11/2012 09/06/2012 Inactive TAKE ONE CAPSULE BY MOUTH EVERY DAY fluoxetine 20 mg cap k[place]on RxNorm: 191683 1 Capsule(s) PO daily 01/06/2012 05/04/2012 Inactive Zyprexa 5 mg Tab RxNorm: 525851 Tablet(s) PO 01/06/2012 12/31/2012 Inactive TAKE ONE TABLET BY MOUTH EVERY DAY lovastatin 20 mg tablet RxNorm: 217697 Tablet(s) PO 12/24/2011 08/26/2012 Inactive TAKE ONE TABLET BY MOUTH AT BEDTIME Rocephin 500 mg Solu tion for Injection RxNorm: 173104 Inj 06/2612/31/2012 Inactive KCL 20 meq RxNorm: 1 PO daily No Start Date Active omeprazole 20 mg Cap , Delayed Release RxNorm: 513942 1 Capsule(s) PO BID No Start Date Active oxycodone-acetaminop hen 5 mg-325 mg Tab RxNorm: 8271397 1 Tablet(s) PO Q4 RI N No Start Date Active acyclovir 800 mg tablet RxNorm: 463496 1 Tablet(s) PO daily No Start Date Active letrozole 2.5 mg Tab RxNorm: 431200 1 Tablet(s) PO daily No Start Date Active multivitamin Cap RxNorm: 1 Capsule(s) PO daily No Start Date Active Calcium 600 + D(3) 6 00 mg (1,500)-200 unit Tab RxNorm: 594379 1 Tablet(s) PO daily No Start Date Active Zyprexa 5 mg Tab RxNorm: 000828 1 Tablet(s) PO daily No Start Date 01/05/2012 Inactive Zithromax Z-Yan 250 mg tablet RxNorm: 383409 Tablet(s) PO UD No Start Date 08/12/2012 Inactive niacin ER 500 mg tab let,extended release RxNorm: 934175 1 Tablet(s) PO daily No Start Date 09/02/2012 Inactive Vitamin D2 50,000 un it capsule RxNorm: 781419 1 Capsule(s) PO QW No Start Date 09/28/2012 Inactive one weekly x 8 weeks then 1000units dorcas y thereafter Synthroid 50 mcg tablet RxNorm: 553904 1 Tablet(s) PO daily No Start Date 09/06/2012 Inactive brand name only acyclovir 400 mg Tab RxNorm: 998477 1 Tablet(s) PO BID No Start Date 09/15/2012 Inactive Zithromax Z-Yan 250 mg tablet RxNorm: 268222 1 Tablet(s) PO as doc tor directed No Start Date 01/15/2015 Inactive zpack as directed fluoxetine 20 mg Tab RxNorm: 435855 1 Tablet(s) PO daily No Start Date 07/26/2014 Inactive REVLIMID 10 mg Cap RxNorm: 052083 1 Capsule(s) PO daily No Start Date 12/31/2012 Inactive lovastatin 20 mg Tab RxNorm: 526354 1 Tablet(s) PO QHS No Start Date 12/23/2011 Inactive aspirin 81 mg Cap, D elayed Release RxNorm: 504365 1 Capsule(s) PO daily No Start Date 12/30/2012 Inactive olanzapine 5 mg tablet RxNorm: 337629 1 Tablet(s) PO daily zyprexa No Start Date 12/30/2012 Inactive Zithromax 250 mg tablet RxNorm: 678303 Tablet(s) PO No Start Date 08/29/2013 Inactive zpac k as directed levofloxacin 500 mg Tab RxNorm: 605470 1 Tablet(s) PO daily No Start Date 06/26/2011 Inactive levothyroxine 50 mcg Tab RxNorm: 970649 1 Tablet(s) PO daily No Start Date 12/31/2012 Inactive dexamethasone 4 mg Tab RxNorm: 660225 2 Tablet(s) PO weekly No Start Date 12/31/2012 Inactive Medication Administered Medication Codes Instruc tions Start Date Status Kenalog 40 mg/mL suspension for injection RxNorm: 9063569 Milliliter 12/20/2016 No longer Active ceftriaxone 500 mg solution for injection RxNorm: 4430148 1Milliliter 12/17/2016 N o longer Active Kenalog 40 mg/mL suspension for injection RxNorm: 4113627 1Milliliter 12/17/2016 N o longer Active Rocephin 500 mg solution for injection RxNorm: 066331 01/10/2014 No longer A ctive Immunizations Vaccine Codes Date Status Pneumococcal (Adult) CVX: 33 07/26/2014 completed Assessments Condition Codes Effectiv e Dates Rash and other nonspecific skin eruption ICD-10: R21 ICD-9: 782.1 12/20/2016 Acute bronchitis, unspecified ICD-10 : J20.9 ICD-9: 466.0 12/17/2016 Cough ICD-10: R05 ICD-9: 786.2 12/17/2016 Mixed hyperlipidemia ICD-10: E78.2 ICD-9: 272.4 09/17/2016 Atrophy of thyroid (acquired) ICD-10 : E03.4 ICD-9: 244.8 09/17/2016 Generalized anxiety disorder ICD-10: F41.1 ICD-9: [...] Visit Reason For Visit Effective Dates Notes rash 12/20/2016 cough 12/17/2016 hypothyroid 09/17/2016 Hospital Follow Up 05/20/2016 Annual Medicare Wellness Exam 12/11/2015 rash 10/06/2015 anxiety 09/21/2015 anxiety 07/26/2014 anxiety 01/25/2014 sore throat 01/10/2014 earache 09/23/2013 cough 09/09/2013 anxiety 06/03/2013 --Imp roved dyskinesia or tremor 02/04/2013 hyperlipidemia 12/31/2012 hyperlipidemia 10/01/2012 hyperlipidemia 09/03/2012 hypothyroid 06/26/2011 Results Observation Observation Code Item Item Code Result Date Free T4 Uay152 FREE T4 1.06 ng/dL 11/18/2016 Tsh Ord6 hTSH II 2.23 uIU/mL 11/18/2016 Cbc With Differential Ord2 WBC 1.66 K/ul 10/22/2016 Cbc With Differential Ord2 RBC 3.98 M/ul 10/22/2016 Cbc With Differential Ord2 HGB 13.2 g/dl 10/22/2016 Cbc With Differential Ord2 Neut% 30.2 % 10/22/2016 Cbc With Differential Ord2 HCT 38.7 % 10/22/2016 Cbc With Differential Ord2 MCV 97.2 fl 10/22/2016 Cbc With Differential Ord2 Lymph% 30.7 % 10/22/2016 Cbc With Differential Ord2 MCH 33.2 pg 10/22/2016 Cbc With Differential Ord2 [place]% 36.7 % 10/22/2016 Cbc With Differential Ord2 [...] 0.51 K/ul 10/22/2016 Cbc With Differential Ord2 [place] ABS# 0.6 K/ul 10/22/2016 Cbc With Differential Ord2 Eos ABS# 0.0 K/ul 10/22/2016 Cbc With Differential Ord2 Baso ABS# 0.0 K/ul 10/22/2016 Lipid Ord30 CHOL 99 mg/dL 10/22/2016 Lipid Ord30 HDL 38.0 mg/dl 10/22/2016 Lipid Ord30 TRIG 102 mg/dL 10/22/2016 Lipid Ord30 LDL 41 mg/dL 10/22/2016 Lipid Ord30 C/HDL 2.6 Ratio 10/22/2016 Comp Metabolic Odv264 NA 135 mEq/L 10/22/2016 Comp Metabolic Glf595 K 4.5 mEq/L 10/22/2016 Comp Metabolic Ssm441 CL 102 mEq/L 10/22/2016 Comp Metabolic Cgk664 CO2 20.0 mEq/L 10/22/2016 Comp Metabolic Vwl983 AN ION GAP 18 10/22/2016 Comp Metabolic Ove154 GL UCOSE 108 mg/dL 10/22/2016 Comp Metabolic Dem648 Cr eat 1.1 mg/dL 10/22/2016 Comp Metabolic Zht305 eG FR 53 ml/min/1.73m2 10/22 Comp Metabolic Tum904 BUN 17 mg/dL 10/22/2016 Comp Metabolic Ozr805 B/ C Ratio 15.7 Ratio 10/22/2016 Comp Metabolic Ddo484 CA LCIUM 8.9 mg/dL 10/22/2016 Comp Metabolic Bdk534 AL K PHOS 65 U/L 10/22/2016 Comp Metabolic Cnz715 T(SGOT) 14 U/L 10/22/2016 Comp Metabolic Qhf435 AL T(SGPT) 19 U/L 10/22/2016 Comp Metabolic Dhg948 BI LI T 0.8 mg/dL 10/22/2016 Comp Metabolic Ysi526 AL BUMIN 3.5 g/dL 10/22/2016 Comp Metabolic Fsi885 TP RO 7.0 g/dL 10/22/2016 Comp Metabolic Lpz427 GL OB 3.5 g/dL 10/22/2016 Comp Metabolic Pta475 A/ G Ratio 1.0 Ratio 10/22/2016 Comp Metabolic Ttw554 Os mo 272 mOsmo 10/22/2016 Manual Differential Ord52 D-Neutr 38 % 10/22/2016 Manual Differential Ord52 D-Bands 15 % 10/22/2016 Manual Differential Ord52 D-Lymph 37 % 10/22/2016 Manual Differential Ord52 D-Eos 4 % 10/22/2016 Manual Differential Ord52 D-[place] 3 % 10/22/2016 Manual Differential Ord52 D-Aty Lymp 3 % 10/22/2016 Free T4 Lxo607 FREE T4 1.38 ng/dL 10/22/2016 Tsh Ord6 hTSH II 2.05 uIU/mL 10/22/2016 Free T4 Jab027 FREE T4 0.85 ng/dL 05/20/2016 Tsh Ord6 hTSH II 0.63 uIU/mL 05/20/2016 CHEM 14 1758215 AST 16 U/L 09/09/2013 CHEM 14 20280123 ALT 20 IU/L 09/09/2013 CHEM 14 20280123 BUN 17 MG/DL 09/09/2013 CHEM 14 9158677 ALBUMIN 3.6 GM/DL 09/09/2013 CHEM 14 0162192 CHLORIDE 102 MMOL/L 09/09/2013 CHEM 14 20280123 BILI TOT 0.3 MG/DL 09/09/2013 CHEM 14 5474760 ALK PHOS 88 U/L 09/09/2013 CHEM 14 1295435 SODIUM 138 MMOL/L 09/09/2013 CHEM 14 5897423 CREATINI NE 1.10 MG/DL 09/09/2013 CHEM 14 2003397 CALCIUM 9.0 MG/DL 09/09/2013 CHEM 14 7252577 POTASSIUM 4.8 MMOL/L 09/09/2013 CHEM 14 20280123 PROT TOT 6.7 GM/DL 09/09/2013 CHEM 14 8257333 GLUCOSE 113 MG/DL 09/09/2013 CHEM 14 5740726 BICARB 27 MMOL/L 09/09/2013 CHEM 14 7335107 ANION GAP 9 MEQ/L 09/09/2013 GFR CALC 3904373 GFR AA 60.0L ML/MIN 09/09/2013 GFR CALC 2056571 GFR NON -AA 50.0L ML/MIN 4 Review of Systems System Result Effective Dates Constitutional recent illness 12/17/2016 Constitutional No anorexia [...] Result Effective Dates Notes Full Exam - Dermatology Constitutional general appearance [...] accomodation 09/23/2013 None Full Exam - General 1995 [...] nourished 06/03/2013 None Full Exam - General 1995 Constitutional general appearance Overall: well developed 06/03/2013 [...] clear 06/03/2013 None Full Exam - General 1995 Ears/Nose/Throat oral cavity/pharynx/larynx Overall: oropharyngeal mucosa clear 06/03/2013 None Full Exam - General 1995 Ears/Nose/Throat oral cavity/pharynx/larynx Overall: no masses 06/03/2013 None Full Exam - General 1995 Ears/Nose/Throat oral cavity/pharynx/larynx Overall: oral mucosa clear 06/03/2013 None Full Exam - General 1994 Ears/Nose/Throat otoscopic exam Overall: tympanic membranes clear 06/03/2013 None Full Exam - General 1995 Ears/Nose/Throat [...] murmurs 06/03/2013 None Full Exam - General 1994 Psychiatric orientation/consciousness Overall: oriented to person, place and time 06/03/2013 None Full Exam - General 1994 Neurologic gait Overall: no ataxia, no unsteadiness 06/03/2013 None Full Exam - General 1995 Abdomen abdominal exam Overall: no tenderness 06/03/2013 None Full Exam - General 1994 Abdomen abdominal exam Overall: normal bowel sounds 06/03/2013 None Full Exam - General 1994 Cardiovascular extremities Overall: no clubbing 06/03/2013 None Full Exam - General 1994 Lymphatic neck nodes Overall: anterior cervical chain benign 06/03/2013 None Full Exam - General 1995 [...] distress 12/31/2012 None Full Exam - General 1995 Constitutional general appearance Overall: well nourished 12/31/2012 [...] distress 09/03/2012 None Full Exam - General 1995 Respiratory respiratory effort/rhythm Overall: no retractions 09/03/2012 None Full Exam - General 1995 Lymphatic neck nodes Overall: anterior cervical chain benign 09/03/2012 None Full Exam - General 1995 Lymphatic neck nodes Overall: posterior cervical chain benign 09/03/2012 None Full Exam - General 1995 Neurologic cranial nerves Overall: crainial nerves 2 - 12 grossly intact 09/03/2012 None Full Exam - General 1995 Psychiatric mood and affect Mood: happy 09/03/2012 [...] Procedure Codes Date THER/PROPH/DIAG INJ SC/IM CPT-4: 93511Jprkunn 12/20/2016 TRIAMCINOLONE ACET I [place] NOS CPT-4: N8112Szsrsjl 12/20/2016 TRIAMCINOLONE ACET I [place] NOS CPT-4: K7766Saudyqm 12/17/2016 ROCEPHIN, PER 250 MG CPT-4: Z4299Uktdqcz 12/17/2016 PPPS, SUBSEQ VISIT CPT-4: T6837Almevcn 12/11/2015 ADMIN PNEUMOCOCCAL V ACCINE Assigned to/Merissa Dupont CT: [id number] CPT-4: K0792Mjargnt 07/26/2014 Pneumococcal Polysac charide Vaccine, 23-Valent, Ad CPT-4: 61895Xmghfrw 07/26/2014 ROCEPHIN, PER 250 MG CPT-4: B6874Urcnxmx 01/10/2014 ROUTINE VENIPUNCTURE CPT-4: 65286Xiemeev 09/09/2013 PRESCRIP TRANSMIT A ERX SY CPT-4: L8999Wilewct 02/04/2013 PRESCRIP TRANSMIT A ERX SY CPT-4: F5831Xhwnczm 12/31/2012 THER/PROPH/DIAG INJ SC/IM CPT-4: 84336Muzjdei 06/26/2011 ROCEPHIN, PER 250 MG CPT-4: P6983Izaztne 06/26/2011 Vital Signs Date Vital 12/17/2016 Blood Pressure 1: 146/86 Code: 8480-6 BMI: 26.1 Code: 23705-5 Heart Rate 1: 94 bpm Height: 5'1" SpO2: 95% Temperature: 36.1 (C ) / 97.0 (F) Weight: 138 lbs 09/17/2016 Blood Pressure 1: 148/88 Code: 8480-6 BMI: 26.5 Code: 88692-5 Heart Rate 1: 86 bpm Height: 5'1" SpO2: 93% Weight: 140 lbs 8 oz 05/20/2016 Blood Pressure 1: 128/82 Code: 8480-6 BMI: 26.3 Code: 17186-5 Heart Rate 1: 99 bpm Height: 5'1" SpO2: 92% Weight: 139 lbs 12/11/2015 Blood Pressure 1: 138/84 Code: 8480-6 BMI: 28.3 Code: 57869-3 Heart Rate 1: 95 bpm Height: 5'1" SpO2: 97% Waist Measure (cm): 89 cm Weight: 150 lbs 10/06/2015 Blood Pressure 1: 128/78 Code: 8480-6 BMI: 28.0 Code: 64009-7 Heart Rate 1: 94 bpm Height: 5'1" SpO2: 96% Weight: 148 lbs 09/21/2015 Blood Pressure 1: 126/94 Code: 8480-6 Blood Pressure 1: 152/78 Code: 8480-6 BMI: 28.0 Code: 62660-7 Heart Rate 1: 104 bpm Height: 5'1" SpO2: 98% Weight: 148 lbs 07/26/2014 Blood Pressure 1: 110/68 Code: 8480-6 BMI: 28.7 Code: 37973-8 Heart Rate 1: 98 bpm Height: 5'1" Weight: 152 lbs 01/25/2014 Blood Pressure 1: 120/78 Code: 8480-6 BMI: 29.3 Code: 88068-3 Heart Rate 1: 104 bpm Height: 5'1" Weight: 155 lbs 01/10/2014 Blood Pressure 1: 138/88 Code: 8480-6 Temperature: 37.1 (C) / 98.7 (F) Weight: 156 lbs 09/23/2013 Blood Pressure 1: 128/78 Code: 8480-6 BMI: 28.9 Code: 19697-7 Heart Rate 1: 88 bpm Height: 5'1" Weight: 153 lbs 09/09/2013 Blood Pressure 1: 110/68 Code: 8480-6 BMI: 28.5 Code: 26837-8 Heart Rate 1: 90 bpm Height: 5'1" SpO2: 90% Weight: 151 lbs 06/03/2013 Blood Pressure 1: 132/82 Code: 8480-6 BMI: 28.9 Code: 90742-5 Heart Rate 1: 88 bpm Height: 5'1" Weight: 153 lbs 02/04/2013 Blood Pressure 1: 140/90 Code: 8480-6 BMI: 29.3 Code: 71217-5 Heart Rate 1: 88 bpm Height: 5'1" Weight: 155 lbs 12/31/2012 Blood Pressure 1: 102/76 Code: 8480-6 BMI: 29.6 Code: 25353-2 Heart Rate 1: 112 bpm Height: 5'1" Weight: 156 lbs 8 oz 10/01/2012 Blood Pressure 1: 116/78 Code: 8480-6 BMI: 29.0 Code: 44231-5 Height: 5'2" Weight: 156 lbs 09/03/2012 Blood Pressure 1: 132/88 Code: 8480-6 Heart Rate 1: 88 bpm Weight: 154 lbs 8 oz 06/26/2011 Blood Pressure 1: 82/58 Code: 8480-6 BMI: 27.5 Code: 13879-0 Heart Rate 1: 80 bpm Height: 5'1" Respiratory Rate: 20 bpm Weight: 145 lbs 8 oz Functional Status No Functional Status data History of Present Illness Symptom Name Status Resu lt Effective Date Notes rash Location-Major on t he legs 12/20/2016 [...] Exacerbating Factors diet 09/17/2016 None 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 P ATIENT, LEVEL III Diagnosis: Cough[ICD10: R05] Diagnosis: Acute bronchitis, unspecified[ICD10: J20.9] Giovanna Robbins MD, [facility] CPT-4: 50372 12/17/2016 ([id number]) 54790 EST. P ATIENT, LEVEL IV Diagnosis: Atrophy of thyroid (acquired)[ICD10: E03.4] Diagnosis: Mixed hyperlipidemia[ICD10: E78.2] Diagnosis: Generalized anxiety disorder[ICD10: F41.1] Disha Robbins MD, C CPT-4: 76744 09/17/2016 [id number] 72426 EST. P ATIENT, LEVEL III Diagnosis: Atrophy of thyroid (acquired)[ICD10: E03.4] Diagnosis: Generalized anxiety disorder[ICD10: F41.1] Disha Robbins MD, C CPT-4: 40603 05/20/2016 86563 EST. PATIENT, LEVEL II Diagnosis: Blister (nonthermal), right great toe, initial encounter[ICD10: S90.421A] Giovanna Robbins MD, [facility] CPT-4: 37815 10/06/2015 ([id number]) 37602 EST. P ATIENT, LEVEL IV Diagnosis: Elevated blood-pressure reading, without diagnosis of hypertension[ICD10: R03.0] Diagnosis: Mixed hyperlipidemia[ICD10: E78.2] Diagnosis: Hypothyroidism, unspecified[ICD10: E03.9] Giovanna Robbins MD, [facility] CPT-4: 11458 09/21/2015 ([id number]) 74410 EST. P ATIENT, LEVEL IV Diagnosis: HYPERLIPIDEMIA[ICD9: 272.4] Diagnosis: HYPOTHYROIDISM[ICD9: 244.9] Diagnosis: Need for pneumococcal vaccine[ICD9: V03.82] Disha Robbins MD, [facility] CPT-4: 50133 07/26/2014 ([id number]) 72290 EST. P ATIENT, LEVEL IV Diagnosis: HYPERLIPIDEMIA[ICD9: 272.4] Diagnosis: HYPOTHYROIDISM[ICD9: 244.9] Diagnosis: DEPRESSIVE DISORDER NEC[ICD9: 311] Disha Robbins MD, [facility] CPT- 4: 80558 01/25/2014 ([id number]) 33722 EST. P ATIENT, LEVEL III Diagnosis: ACUTE PHARYNGITIS[ICD9: 462] Giovanna Robbins MD, [facility] CPT- 4: 16440 01/10/2014 ([id number]) 84426 EST. P ATIENT, LEVEL III Diagnosis: GENERALIZED ANXIETY DISEASE[ICD9: 300.02] Diagnosis: Ear pain[ICD9: 388.70] Disha Robbins MD, [facility] CPT-4: 32155 09/23/2013 ([id number]) 35476 EST. P ATIENT, LEVEL IV Diagnosis: BACTERIAL PNEUMONIA[ICD9: 482.9] Diagnosis: Encounter for long-term (current) use of other medications[ICD9: V58.69] Diagnosis: HYPOTHYROIDISM[ICD9: 244.9] Diagnosis: DEPRESSIVE DISORDER NEC[ICD9: 311] Disha Robbins MD, [facility] CPT- 4: 57455 09/09/2013 ([id number]) 46454 EST. 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 P ATIENT, LEVEL IV Diagnosis: Renal insufficiency[ICD9: 593.9] Diagnosis: HYPERLIPIDEMIA[ICD9: 272.4] Diagnosis: DEPRESSIVE DISORDER NEC[ICD9: 311] Diagnosis: KIMANI (generalized anxiety disorder)[ICD9: 300.02] Disha Robbins MD, C CPT-4: 26132 10/01/2012 ([id number]) 77869 EST. [facility]: HYPERLIPIDEMIA[ICD9: 272.4] Diagnosis: DEPRESSIVE DISORDER NEC[ICD9: 311] Diagnosis: KIMANI (generalized anxiety disorder)[ICD9: 300.02] Disha Robbins MD, C CPT-4: 61753 09/03/2012 29241 EST. PATIENT, LEVEL IV Diagnosis: HYPOTHYROIDISM[ICD9: 244.9] Diagnosis: HYPERLIPIDEMIA[ICD9: 272.4] Diagnosis: ACUTE MAXILLARY SINUSITIS[ICD9: 461.0] Disha Robbins MD, [facility] CPT-4: 30329 06/26/2011 Plan of Care Planned Activity Notes C odes Status Date Visit Plan: Rash-does not appear to be a drug rash-kenalog injection today in the office-continue abx but if rash worsens, stop abx and call the office-start anti histamine daily -may use benadryl as needed-patient verbalized understanding of plan. 12/20/2016 Appointment: Nurse Visit 12/20/2016 Patient Education: Patient Medication Summary Completed 12/20/2016 Visit Plan: Bronchitis - acute case of b ronchitis identified. Pt has been given antibiotics, breathing treatments as appropriate, and pt has been instructed to call if symptoms are not improved, or if symptoms acutely worsen. 2016 Appointment: Giovanna Gilmore WPtel: [phone] [phone] (30 min) Complex 12/17/2016 Patient Education: Patient Medication Summary Completed 12/17/2016 Visit Plan: Hypothyroidism - pt with chr onic hypothyroidism, continue with current medication, will monitor pt to signs or symptoms of lack of adequate supplementation. Pt is to continue with current dose of medication unless directed otherwise. Check labs at regular intervals wither q 3 months or q 6 months based on previous levels of control.Hyperlipidemia - pt has been counseled about appropriate [...] and to assure normal liver response to medications.plan for labs to be done when she goes to see Dr. Vail for her multiple myelomaChronic Depression and anxiety - the pt has symptoms of chronic anxiety and depression that have been fairly well controlled since the last office visit. The pt has expected periods of exacerbation with abatement of the symptoms with change in situational exposure. No change in current medications. 09/17/2016 Appointment: Disha Robbins WPtel: [phone] [facility] (15 min) Moderate 09/17/2016 Patient Education: Patient Medication Summary Completed 09/17/2016 Visit Plan: Hypothyroidism - pt with chr onic hypothyroidism, continue with current medication, will monitor pt to signs or symptoms of lack of adequate supplementation. Pt is to continue with current dose of medication unless directed otherwise. Check labs at regular intervals wither q 3 months or q 6 months based on previous levels of control.Chronic Depression and anxiety - the pt has symptoms of chronic anxiety and depression that have been fairly well controlled since the last office visit. The pt has expected periods of exacerbation with abatement of the symptoms with change in situational exposure. No change in current medications. 05/20/2016 Appointment: [phone] [facility] ([facility] Moderate 05/20/2016 Patient Education: Patient Medication Summary Completed 05/20/2016 Care Plan: Tsh Pending 05/20/2016 Care Plan: Free T4 Pending 05/20/2016 Care Plan: [facility]MO[facility]2 Pending 12/12/2015 Visit Plan: Medicare Exam - today we dis cussed the patients past history, immunizations, preventative exams/evaluations [...] risk and to maintain independece in the home.Today we discussed the need for the patient to create paperwork for Advanced directives as well as for the patient to provide this office with a copy of her DOPA paperwork for health care surrogate. 2015 Appointment: T[facility] Marquez [facility]el[phone] [facility] [facility] - Annual Wellness Visit 12/11/2015 Patient [...] 10/06/2015 Visit Plan: Elevated Blood Pressure - w [facility] diagnosis of hypertension - pt has been instructed to check blood pressure as an outpatient, record blood pressure and heart rate and report to the clinic in two weeks on the findings. Pt advised to cut back on added salt in the diet.Hyperlipidemia - pt has been counseled about appropriate [...] and to assure normal liver response to medications.Hypothyroidism - pt with chronic hypothyroidism, continue with [...] 09/21/2015 Visit Plan: Hyperlipidemia - pt has bee n counseled about appropriate diet, exercise, and need [...] and to assure normal liver response to medications.Hypothyroidism - pt with chronic hypothyroidism, continue with current medication, will monitor pt to signs or symptoms of lack of adequate supplementation. Pt is to continue with current dose of medication unless directed otherwise. Check labs at regular intervals wither q 3 months or q 6 months based on previous levels of control.Chronic Depression and anxiety - the pt has symptoms of chronic anxiety and depression that have been fairly well controlled since the last office visit. The pt has expected periods of exacerbation with abatement of the symptoms with change in situational exposure. No change in current medications. 07/26/2014 Appointment: [facility]isha [facility]bins [facility]Ptel[phone] [facility] [facility] 07/26/2014 Patient Education: Patient Medication Summary Completed 07/26/2014 Visit Plan: Hyperlipidemia - pt has bee n counseled about appropriate diet, exercise, and need [...] and to assure normal liver response to medications.Hypothyroidism - pt with chronic hypothyroidism, continue with current medication, will monitor pt to signs or symptoms of lack of adequate supplementation. Pt is to continue with current dose of medication unless directed otherwise. Check labs at regular intervals wither q 3 months or q 6 months based on previous levels of control.Chronic Depression and anxiety - the pt has symptoms of chronic anxiety and depression that have been fairly well controlled since the last office visit. The pt has expected periods of exacerbation with abatement of the symptoms with change in situational exposure. No change in current medications. 01/25/2014 Appointment: Disha Robbins [facility]Ptel: [phone] [facility] Follow [facility] 01/25/2014 Patient Education: Patient Medication Summary Completed 01/25/2014 Visit Plan: Pharyngitis-Discussed natura l and expected course of this diagnosis and need to alert me if symtpoms do not follow expected course, or if any worse. Recommended salt water gargles as needed for pain. Tylenol/motrin as needed for fever/discomfort. 01/10/2014 Patient Education: Patient Medication Summary Completed 01/10/2014 Appointment: [facility]bins [facility]Ptel[facility] [phone] [facility] Follow up 12/02/2013 Visit Plan: Cerumen on Ear drum - causin g hearing loss, discomfort in ear drum on right - recommended pt to use sweet oil regularly to prevent cerumen build- up. Chronic Depression and anxiety - the pt has symptoms of chronic anxiety and depression that have been fairly well controlled since the last office visit. The pt has expected periods of exacerbation with abatement of the symptoms with change in situational exposure. No change in current medications. 2013 Appointment: Disha Robbins WPtel: [address] [place] [address] Follow up 09/23/2013 Patient Education: Patient Medication Summary Completed 09/23/2013 Visit Plan: Pneumonia - Pt has been diag nosed with pneumonia by physical exam. A chest [...] current medications. 09/09/2013 Appointment: Disha Robbins WPtel: [address] [place] [address] follow up 09/09/2013 Patient Education: Patient Medication Summary Completed 09/09/2013 Visit Plan: Chronic Depression and anxie ty - the pt has symptoms of chronic anxiety and depression that have been fairly well controlled since the last office visit. The pt has expected periods of exacerbation with abatement of the symptoms with change in situational exposure. 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 Esophageal Reflux - the patient has been counseled against excessive intake of caffiene, spicy foods, peppermint, and cinnamon - all of which can exacerbate esophageal reflux.The patient is to take medications as prescribed and call the office if the symptoms are not improving. 06/03/2013 Appointment: Disha Robbins WPtel: [address] [place], [place] [id number] Follow up 06/03/2013 Patient Education: Patient Medication Summary Completed 06/03/2013 Visit Plan: Extrapyramidal movements imp roved - less tremor noted in clinic - I have recommended the patient to stay on the 2.5mg zyprexa dosing. If her anxiety or depressive symptoms start to become uncontrolled, she is to call clinic [facility], if her movements worsen again, call clinic [facility]. 02/04/2013 Appointment: Disha Robbins WPtel: [facility] [place] Other 02/04/2013 Patient Education: Patient Medication Summary Completed 02/04/2013 Appointment: Disha Robbins WPtel: [facility] Follow up 01/28/2013 Visit Plan: Extrapyramidal movement diso rder - likely due to zyprexa (generic name = olanzepine), therefore, the medication's dose has been decreased to 2.5mg daily.Nikole is to let us know if her [...] 6 months based on previous levels of control.KIMANI - decrease zyprexa, monitor anxiety and depression on lower dose of medications. 12/31/2012 Appointment: Disha Robbins WPtel: [facility] Follow up 12/31/2012 Patient Education: Patient Medication Summary Completed 12/31/2012 Visit Plan: Renal insufficiency - will r epeat labs in a few weeks, recommended the following:Increase fluids - NO MOTRIN, IBUPROFEN, MELOXICAM, ALEVE, NAPROSYN.CAN ONLY TAKE TYLENOL BASED PRODUCTS IF NEEDED HEADACHES OR SINUS INFECTIONS. Chronic Depression and anxiety - the pt has symptoms of chronic anxiety and depression that have been fairly well controlled since the last office visit. The pt has expected periods of exacerbation with abatement of the symptoms with change in situational exposure. No change in current medications.Hyperlipidemia - medication started, discussed dietary changes. 10/01/2012 Appointment: Disha Robbins WPtel: [phone] [phone] Follow up 10/01/2012 Patient Education: Patient Medication Summary Completed 10/01/2012 Visit Plan: Hyperlipidemia - pt has be en counseled about appropriate diet, exercise, and need [...] visit in 1 month (after September 29 labs)We will increase the Nicacin to 1000 mg PO Daily. Hypothyroidism - pt with chronic hypothyroidism, continue with current medication, will monitor pt to signs or symptoms of lack of adequate supplementation. Pt is to continue with current dose of medication unless directed otherwise. Check labs at regular intervals wither q 3 months or q 6 months based on previous levels of control.We will replace her levothyroxine with samples and [...] situational exposure. No change in current medications. 2012 Appointment: [facility]bins [facility]Ptel[phone] [facility] Follow up 09/03/2012 Patient Education: Patient Medication Summary Completed 09/03/2012 Visit Plan: Hypothyroidism - pt with chr onic hypothyroidism, continue with current medication, will monitor [...] recommended. Call if symptoms do not show improvement.pt given rocephin shot im today.Hyperlipideia- pt has not gotten here cholesterol labs in over a year, she has beengiven orders to get the labs done. as soon as possible, fasting.. No change in meds at this time. 2010 Appointment: Disha Robbins WPtel: [facility] Other 06/26/2011 Patient Education: Patient Medication Summary Completed 06/26/2011 Instructions Comment . Extrapyramidal mov ement disorder - likely [...] depression on lower dose of medications. . Hypothyroidism - p t with [...] meds at this time. . Extrapyramidal mov ements improved - less tremor noted in clinic - I have recommended the patient to stay on the 2.5mg zyprexa dosing. If her anxiety or depressive symptoms start to become uncontrolled, she is to call clinic [facility], if her movements worsen again, call clinic [facility]. . Blister of toe-aster ined today in the office and occlusive dressing applied-RX for bactroban ointment and wound care instructions provided- instructed patient to stop draining blister at home-call for any s/s of infection-redness, drainage, warmth, etc or any other concerns. Patient verbalized understanding of plan. . Hyperlipidemia - [...] as needed-patient verbalized understanding of plan. . Chronic Depression and anxiety - the [...] if the symptoms are not improving. . Hypothyroidism - p t with chronic [...] exposure. No change in current medications. . Medicare Exam - to day we [...] DOPA paperwork for health care surrogate. . Pharyngitis-Discus sed natural and expected course of this diagnosis and need to alert me if symtpoms do not follow expected course, or if any worse. Recommended salt water gargles as needed for pain. Tylenol/motrin as needed for fever/discomfort. rocephin/kenalog zpack -start today call later this week if not better and we will add on 2nd antibiotic such as cefdinir . Bronchitis - acute case of bronchitis identified. Pt has been given antibiotics, breathing treatments as appropriate, and pt has been instructed to call if symptoms are not improved, or if symptoms acutely worsen. We will increase her Nicacin to 1000 [...] exposure. No change in current medications. . Elevated Blood Pr essure - without [...] situational exposure. No change in current medications. Increase fluids - NO MOTRIN, IBUPROFEN, MELOXICAM, [...]
--- OUTSIDE RECORDS SUMMARY | 2019-11-16 08:53 | XMS REPORT | CCD ---
Author Author Nikole Robbins Organization [facility] Address [address] [place] [address] Phone Care Team Providers Care Certified Real Estate Appraiser Name Role Phone PP Unavailable CCM Unavailable Summary Purpose Interface Exchange Insurance Providers Payer name Policy type / Coverage type Covered constitution party ID Effective Begin Date Effective End Date WPS Medicare Part B Medicare Part B [id number] 2013 Unknown [employer] Medicare Part B [id number] 2013 Unknown Family history Son Diagnosis Age [...] ntly unemployed 06/26/[address]: [id number] Never smoker 06/26/[address]: 235119731 Never drinks alcohol 06/26/2011 Has the patient [...] 40 mg/mL kassie pension for injection RxNorm: 8075231 Milliliter(s) Inj 12/20/2016 12/20/2016 In active Zithromax Z-Yan 250 mg tablet RxNorm: 453849 1 Tablet(s) PO UD 12/17/2016 12/21/2016 Active zpack ceftriaxone 500 mg s olution for injection RxNorm: 2691419 1 Milliliter(s) Inj 12/17/2016 12/17/2016 In active Kenalog 40 mg/mL kassie pension for injection RxNorm: 8201088 1 Milliliter(s) Inj 12/17/2016 12/17/2016 In active Synthroid 75 mcg tablet RxNorm: 971316 TAKE ONE TABLET BY MOUTH ONCE DAILY 11/08/2016 04/06/2017 Ac tive lovastatin 20 mg tablet RxNorm: 936666 TAKE ONE TABLET BY MOUTH AT BEDTIME 10/28/2016 04/25/2017 Ac tive fluoxetine 20 mg cap k[place] RxNorm: 618918 TAKE ONE CAPSULE BY OUT ONCE DAILY 10/28/2016 04/25/2017 Ac tive Synthroid 75 mcg tablet RxNorm: 382303 TAKE ONE TABLET BY MOUTH ONCE DAILY 10/08/2016 11/06/2016 In active olanzapine 2.5 mg ta blet RxNorm: 147768 TAKE ONE TABLET BY MO UTH ONCE DAILY 07/29/2016 12/25/2016 Ac tive Zithromax Z-Yan 250 mg tablet RxNorm: 293860 1 Tablet(s) PO UD 07/29/2016 09/16/2016 Inactive zpack as directed lovastatin 20 mg tablet RxNorm: 689633 TAKE ONE TABLET BY MOUTH AT BEDTIME 07/02/2016 10/27/2016 In active olanzapine 2.5 mg ta blet RxNorm: 385271 TAKE ONE TABLET BY MO UTH ONCE DAILY 04/29/2016 09/16/2016 In active olanzapine 2.5 mg ta blet RxNorm: 371086 TAKE ONE TABLET BY MO UTH ONCE DAILY 04/29/2016 04/28/2016 In active fluoxetine 20 mg cap kamer[place] RxNorm: 664109 TAKE ONE CAPSULE BY M OUTH ONCE DAILY 03/26/2016 09/21/2016 In active olanzapine 2.5 mg ta blet RxNorm: 486368 Tablet(s) TAKE ONE TA BLET BY MOUTH ONCE DAILY 01/31/2016 03/30/2016 Inactive olanzapine 2.5 mg ta blet RxNorm: 854364 Tablet(s) TAKE ONE TA BLET BY MOUTH ONCE DAILY 01/25/2016 01/30/2016 Inactive lovastatin 20 mg tablet RxNorm: 706913 TAKE ONE TABLET BY MOUTH AT BEDTIME 12/28/2015 06/24/2016 In active fluoxetine 20 mg cap k[place] RxNorm: 426582 Capsule(s) TAKE ONE C APSULE BY MOUTH ONCE DAILY 12/28/2015 09/16/2016 Inactive olanzapine 2.5 mg ta blet RxNorm: 552176 TAKE ONE TABLET BY MO UTH ONCE DAILY 11/24/2015 01/22/2016 In active mupirocin 2 % topica l ointment RxNorm: 662135 1 Application TOP BID 10/06/2015 10/12/2015 Inactive Synthroid 75 mcg tablet RxNorm: 878513 Tablet(s) PO daily TAKE ONE TABLET BY MO UTH EVERY DAY 09/18/2015 09/11/2016 Inactive [SAVINGS FOR NON-COVERED DR HAMMOND -- BIN:[id number], PCN: ASPSG1, Group: XXXXX, ID# XXXXXXX, Questions: . THIS IS NOT INSURANCE.] Synthroid 75 mcg tablet RxNorm: 519709 Tablet(s) PO daily TAKE ONE TABLET BY MO UTH EVERY DAY 09/15/2015 09/17/2015 Inactive [SAVINGS FOR NON-COVERED UGS -- BIN:214424, PCN: ASPROD1, Group: XXXXX, ID# XXXXXXX, Questions: . THIS IS NOT INSURANCE.] Synthroid 75 mcg tablet RxNorm: 502147 Tablet(s) TAKE ONE TABLET BY MOUTH EVERY DAY 09/14/2015 09/14/2015 Inactive [SAVINGS FOR NON-COVERED DRUGS -- BIN:00 3585, PCN: ASPROD1, Group: XXXXX, ID# XXXXXXX, Questions: . THIS IS NOT INSURANCE.] fluoxetine 20 mg cap kameron RxNorm: 272672 TAKE ONE CAPSULE BY M OUTH ONCE DAILY 08/24/2015 12/21/2015 In active lovastatin 20 mg tablet RxNorm: 859618 1 Tablet(s) PO QHS TAKE ONE TABLET BY MO UTH AT BEDTIME 05/29/2015 12/24/2015 Inactive [SAVINGS FOR NON-COVERED DR UGS -- BIN:706684, PCN: ASPROD1, Group: XXXXX, ID# XXXXXXX, Questions: . THIS IS NOT INSURANCE.] olanzapine 2.5 mg ta blet RxNorm: 19990922 TAKE ONE TABLET BY MO UT ONCE DAILY 05/25/2015 11/20/2015 In active olanzapine 2.5 mg ta blet RxNorm: 19990922 1 Tablet(s) daily PATRIZIA E ONE TABLET BY MOUTH EVERY DAY 02/27/2015 05/24/2015 Inactive [SAVINGS FOR NON-COVERED DR UGS -- BIN:105952, PCN: ASPROD1, Group: XXXXX, ID# XXXXXXX, Questions: . THIS IS NOT INSURANCE.] fluoxetine 20 mg cap kameron RxNorm: 454571 Capsule(s) TAKE ONE C APSULE BY MOUTH EVERY DAY 02/27/2015 08/23/2015 Inactive prednisone 20 mg tablet RxNorm: 901331 1 Tablet(s) PO BID 01/16/2015 01/18/2015 Inactive prednisone 20 mg tablet RxNorm: 089575 1 Tablet(s) PO BID 01/16/2015 01/15/2015 Inactive Zithromax Z-Yan 250 mg tablet RxNorm: 768702 1 Tablet(s) PO as doc tor directed 01/16/2015 07/28/2016 In active zpack as directed olanzapine 2.5 mg ta blet RxNorm: 19990922 1 Tablet(s) daily PATRIZIA E ONE TABLET BY MOUTH EVERY DAY 11/24/2014 02/21/2015 Inactive [SAVINGS FOR NON-COVERED DR UGS -- BIN:003170, PCN: ASPROD1, Group: XXXXX, ID# XXXXXXX, Questions: . THIS IS NOT INSURANCE.] lovastatin 20 mg tablet RxNorm: 313766 1 Tablet(s) PO QHS TAKE ONE TABLET BY MO UTH AT BEDTIME 10/26/2014 05/23/2015 Inactive [SAVINGS FOR NON-COVERED DR UGS -- BIN:978908, PCN: ASPROD1, Group: XXXXX, ID# XXXXXXX, Questions: . THIS IS NOT INSURANCE.] Synthroid 75 mcg tablet RxNorm: 030749 1 Tablet(s) PO daily TAKE ONE TABLET BY MOUTH EVERY DAY 09/19/2014 12/17/2014 Inactive Synthroid 75 mcg tablet RxNorm: 871002 Tablet(s) TAKE ONE TABLET BY MOUTH EVERY DAY 09/19/2014 09/13/2015 Inactive [SAVINGS FOR NON-COVERED DRUGS -- BIN:00 3585, PCN: ASPROD1, Group: XXXXX, ID# XXXXXXX, Questions: . THIS IS NOT INSURANCE.] fluoxetine 20 mg cap kameron RxNorm: 028892 TAKE ONE CAPSULE BY M OUTH EVERY DAY 08/04/2014 01/30/2015 In active fluoxetine 20 mg cap kameron RxNorm: 148425 1 Capsule(s) PO daily TAKE ONE CAPSULE BY MOUTH EVERY DAY 08/02/2014 08/03/2014 Inactive [SAVINGS FOR UNINSURED ERNIE ENTS -- BIN:708876, PCN: ASPROD1, Group: [id number], ID# [id number], Process claim through [employer], for questions: . THIS IS NOT INSURANCE.] lovastatin 20 mg tablet RxNorm: 806467 TAKE ONE TABLET BY MOUTH AT BEDTIME 07/25/2014 10/22/2014 In active olanzapine 2.5 mg ta blet RxNorm: 719825 Tablet(s) TAKE ONE TA BLET BY MOUTH EVERY DAY 07/19/2014 07/18/2014 Inactive olanzapine 2.5 mg ta blet RxNorm: 707232 TAKE ONE TABLET BY MO UTH EVERY DAY 07/19/2014 10/16/2014 In active Synthroid 75 mcg tablet RxNorm: 119347 1 Tablet(s) PO daily TAKE ONE TABLET BY MOUTH EVERY DAY 06/20/2014 06/19/2014 Inactive Synthroid 75 mcg tablet RxNorm: 470425 TAKE ONE TABLET BY MOUTH EVERY DAY 06/20/2014 09/18/2014 In active lovastatin 20 mg tablet RxNorm: 183303 TAKE ONE TABLET BY MOUTH AT BEDTIME 04/22/2014 07/20/2014 In active olanzapine 2.5 mg ta blet RxNorm: 089583 TAKE ONE TABLET BY MO UTH EVERY DAY 04/21/2014 07/18/2014 In active Synthroid 75 mcg tablet RxNorm: 795570 TAKE ONE TABLET BY MOUTH EVERY DAY 03/22/2014 06/19/2014 In active fluoxetine 20 mg cap k[place] RxNorm: 379767 TAKE ONE CAPSULE BY M OUTH EVERY DAY 02/02/2014 07/31/2014 In active lovastatin 20 mg tablet RxNorm: 611292 TAKE ONE TABLET BY MOUTH AT BEDTIME 01/20/2014 04/19/2014 In active olanzapine 2.5 mg ta blet RxNorm: 542126 TAKE ONE TABLET BY MO UTH EVERY DAY 01/14/2014 04/13/2014 In active amoxicillin 500 mg t ablet RxNorm: 287569 1 Tablet(s) PO TID 01/10/2014 01/16/2014 Inactive Rocephin 500 mg solu tion for injection RxNorm: 834898 Inj 01/1001/10/2014 Inactive Synthroid 75 mcg tablet RxNorm: 407020 Tablet(s) PO TAKE ONE TABLET BY MOUTH EV FERCHO DAY 12/27/2013 03/21/2014 Inactive lovastatin 20 mg tablet RxNorm: 367096 Tablet(s) PO TAKE ONE TABLET BY MOUTH AT BEDTIME 12/20/2013 01/19/2014 Inactive olanzapine 2.5 mg ta blet RxNorm: 927726 Tablet(s) PO TAKE ONE TABLET BY MOUTH EVERY DAY 12/17/2013 01/13/2014 Inactive Synthroid 75 mcg tablet RxNorm: 197866 Tablet(s) PO TAKE ONE TABLET BY MOUTH EV FERCHO DAY 11/22/2013 12/26/2013 Inactive lovastatin 20 mg tablet RxNorm: 139316 Tablet(s) PO TAKE ONE TABLET BY MOUTH AT BEDTIME 11/15/2013 12/19/2013 Inactive olanzapine 2.5 mg ta blet RxNorm: 966002 Tablet(s) PO TAKE ONE TABLET BY MOUTH EVERY DAY 11/15/2013 12/16/2013 Inactive Synthroid 75 mcg tablet RxNorm: 506994 Tablet(s) PO TAKE ONE TABLET BY MOUTH EV FERCHO DAY 10/25/2013 11/21/2013 Inactive lovastatin 20 mg tablet RxNorm: 652202 Tablet(s) PO TAKE ONE TABLET BY MOUTH AT BEDTIME 10/18/2013 11/14/2013 Inactive Zithromax 250 mg tablet RxNorm: 035675 Tablet(s) PO 08/30/2013 07/26/2014 Inactive zpac k as directed Synthroid 75 mcg tablet RxNorm: 367288 Tablet(s) PO TAKE ONE TABLET BY MOUTH 05/24/2013 10/24/2013 Inactive lovastatin 20 mg tablet RxNorm: 265778 Tablet(s) PO TAKE ONE TABLET BY MOUTH AT BEDTIME 04/19/2013 10/17/2013 Inactive olanzapine 2.5 mg ta blet RxNorm: 794395 1 Tablet(s) PO 02/04/2013 09/01/2013 Inactive fluoxetine 20 mg cap kameron RxNorm: 836934 Capsule(s) PO TAKE ON E CAPSULE BY MOUTH EVERY DAY 01/08/2013 02/01/2014 Inactive olanzapine 5 mg tablet RxNorm: 865422 1/2 Tablet(s) PO daily zyprexa 12/31/2012 02/03/2013 In active Synthroid 75 mcg tablet RxNorm: 030125 1 Tablet(s) PO daily 09/29/2012 03/27/2013 Inactive Vitamin D2 50,000 un it capsule RxNorm: 574278 1 Capsule(s) PO QW 09/29/2012 09/16/2016 Inactive one weekly x 8 weeks then 1000units dorcas y thereafter Synthroid 75 mcg tablet RxNorm: 917478 1 Tablet(s) PO daily 09/29/2012 09/28/2012 Inactive lovastatin 20 mg tablet RxNorm: 372637 Tablet(s) PO TAKE ONE TABLET BY MOUTH AT BEDTIME 09/21/2012 04/18/2013 Inactive fluoxetine 20 mg cap k[place] RxNorm: 705963 1 Capsule(s) PO daily TAKE ONE CAPSULE BY MOUTH EVERY DAY 09/16/2012 01/07/2013 Inactive Synthroid 50 mcg tablet RxNorm: 300224 1 Tablet(s) PO daily 09/14/2012 12/31/2012 Inactive brand name only fluoxetine 20 mg cap k[place]on RxNorm: 071649 Capsule(s) PO TAKE ON E CAPSULE BY MOUTH EVERY DAY 09/07/2012 09/15/2012 Inactive Synthroid 50 mcg tablet RxNorm: 041472 1 Tablet(s) PO daily 09/07/2012 09/13/2012 Inactive brand name only niacin ER 500 mg tab let,extended release RxNorm: 855169 2 Tablet(s) PO daily 09/03/2012 No Stop Date Active lovastatin 20 mg tablet RxNorm: 490711 1 Tablet(s) PO QHS TAKE ONE TABLET BY MO [facility] AT BEDTIME 08/26/2012 09/20/2012 Inactive Zithromax Z-Yan 250 mg tablet RxNorm: 922907 Tablet(s) PO UD 08/13/2012 12/31/2012 Inactive fluoxetine 20 mg cap kameron RxNorm: 531327 Capsule(s) PO 05/11/2012 09/06/2012 Inactive TAKE ONE CAPSULE BY MOUTH EVERY DAY fluoxetine 20 mg cap k[place]on RxNorm: 467904 1 Capsule(s) PO daily 01/06/2012 05/04/2012 Inactive Zyprexa 5 mg Tab RxNorm: 005344 Tablet(s) PO 01/06/2012 12/31/2012 Inactive TAKE ONE TABLET BY MOUTH EVERY DAY lovastatin 20 mg tablet RxNorm: 594867 Tablet(s) PO 12/24/2011 08/26/2012 Inactive TAKE ONE TABLET BY MOUTH AT BEDTIME Rocephin 500 mg Solu tion for Injection RxNorm: 670517 Inj 06/2612/31/2012 Inactive KCL 20 meq RxNorm: 1 PO daily No Start Date Active omeprazole 20 mg Cap , Delayed Release RxNorm: 381646 1 Capsule(s) PO BID No Start Date Active oxycodone-acetaminop hen 5 mg-325 mg Tab RxNorm: 2987010 1 Tablet(s) PO Q4 MS N No Start Date Active acyclovir 800 mg tablet RxNorm: 129345 1 Tablet(s) PO daily No Start Date Active letrozole 2.5 mg Tab RxNorm: 702265 1 Tablet(s) PO daily No Start Date Active multivitamin Cap RxNorm: 1 Capsule(s) PO daily No Start Date Active Calcium 600 + D(3) 6 00 mg (1,500)-200 unit Tab RxNorm: 108228 1 Tablet(s) PO daily No Start Date Active Zyprexa 5 mg Tab RxNorm: 113386 1 Tablet(s) PO daily No Start Date 01/05/2012 Inactive Zithromax Z-Yan 250 mg tablet RxNorm: 211572 Tablet(s) PO UD No Start Date 08/12/2012 Inactive niacin ER 500 mg tab let,extended release RxNorm: 124231 1 Tablet(s) PO daily No Start Date 09/02/2012 Inactive Vitamin D2 50,000 un it capsule RxNorm: 562358 1 Capsule(s) PO QW No Start Date 09/28/2012 Inactive one weekly x 8 weeks then 1000units dorcas y thereafter Synthroid 50 mcg tablet RxNorm: 493387 1 Tablet(s) PO daily No Start Date 09/06/2012 Inactive brand name only acyclovir 400 mg Tab RxNorm: 325260 1 Tablet(s) PO BID No Start Date 09/15/2012 Inactive Zithromax Z-Yan 250 mg tablet RxNorm: 134658 1 Tablet(s) PO as doc tor directed No Start Date 01/15/2015 Inactive zpack as directed fluoxetine 20 mg Tab RxNorm: 937304 1 Tablet(s) PO daily No Start Date 07/26/2014 Inactive REVLIMID 10 mg Cap RxNorm: 845477 1 Capsule(s) PO daily No Start Date 12/31/2012 Inactive lovastatin 20 mg Tab RxNorm: 765921 1 Tablet(s) PO QHS No Start Date 12/23/2011 Inactive aspirin 81 mg Cap, D elayed Release RxNorm: 569460 1 Capsule(s) PO daily No Start Date 12/30/2012 Inactive olanzapine 5 mg tablet RxNorm: 023766 1 Tablet(s) PO daily zyprexa No Start Date 12/30/2012 Inactive Zithromax 250 mg tablet RxNorm: 303483 Tablet(s) PO No Start Date 08/29/2013 Inactive zpac k as directed levofloxacin 500 mg Tab RxNorm: 533407 1 Tablet(s) PO daily No Start Date 06/26/2011 Inactive levothyroxine 50 mcg Tab RxNorm: 129156 1 Tablet(s) PO daily No Start Date 12/31/2012 Inactive dexamethasone 4 mg Tab RxNorm: 223106 2 Tablet(s) PO weekly No Start Date 12/31/2012 Inactive Medication Administered Medication Codes Instruc tions Start Date Status Kenalog 40 mg/mL suspension for injection RxNorm: 0868488 Milliliter 12/20/2016 Ac tive ceftriaxone 500 mg solution for injection RxNorm: 5499438 1Milliliter 12/17/2016 N o longer Active Kenalog 40 mg/mL suspension for injection RxNorm: 4769440 1Milliliter 12/17/2016 N o longer Active Rocephin 500 mg solution for injection RxNorm: 957868 01/10/2014 No longer A ctive Immunizations Vaccine [...] Item Item Code Result Date Free T4 [id number] FREE T4 1.06 ng/dL 11/18/2016 Tsh Ord6 hTSH II 2.23 uIU/mL 11/18/2016 Cbc With Differential Ord2 WBC 1.66 K/ul 10/22/2016 Cbc With Differential Ord2 RBC 3.98 M/ul 10/22/2016 Cbc With Differential Ord2 HGB 13.2 g/dl 10/22/2016 Cbc With Differential Ord2 Neut% 30.2 % 10/22/2016 Cbc With Differential Ord2 HCT 38.7 % 10/22/2016 Cbc With Differential Ord2 Lymph% 30.7 % 10/22/2016 Cbc With Differential Ord2 MCV 97.2 fl 10/22/2016 Cbc With Differential Ord2 [place]% 36.7 % 10/22/2016 Cbc With Differential Ord2 MCH 33.2 pg 10/22/2016 Cbc With Differential Ord2 MCHC 34.1 pg 10/22/2016 Cbc With Differential Ord2 Eos% 1.8 % 10/22/2016 Cbc With Differential Ord2 Baso% 0.6 % 10/22/2016 Cbc With Differential Ord2 PLT 222 K/ul 10/22/2016 Cbc With Differential Ord2 Neut ABS# 0.50 K/ul 10/22/2016 Cbc With Differential Ord2 RDW 14.0 % 10/22/2016 Cbc With Differential Ord2 Lymph ABS# 0.51 K/ul 10/22/2016 Cbc With Differential Ord2 [place] ABS# 0.6 K/ul 10/22/2016 Cbc With Differential Ord2 Eos ABS# 0.0 K/ul 10/22/2016 Cbc With Differential Ord2 Baso ABS# 0.0 K/ul 10/22/2016 Lipid Ord30 CHOL 99 mg/dL 10/22/2016 Lipid Ord30 HDL 38.0 mg/dl 10/22/2016 Lipid Ord30 TRIG 102 mg/dL 10/22/2016 Lipid Ord30 LDL 41 mg/dL 10/22/2016 Lipid Ord30 C/HDL 2.6 Ratio 10/22/2016 Comp Metabolic Kfi008 NA 135 mEq/L 10/22/2016 Comp Metabolic Kfv804 K 4.5 mEq/L 10/22/2016 Comp Metabolic Bpt323 CL 102 mEq/L 10/22/2016 Comp Metabolic Pop488 CO2 20.0 mEq/L 10/22/2016 Comp Metabolic Xho644 AN ION GAP 18 10/22/2016 Comp Metabolic Vuz939 GL UCOSE 108 mg/dL 10/22/2016 Comp Metabolic Wsr794 Cr eat 1.1 mg/dL 10/22/2016 Comp Metabolic Mqs753 eG FR 53 ml/min/1.73m2 10/22 Comp Metabolic Uis934 BUN 17 mg/dL 10/22/2016 Comp Metabolic Wqm894 B/ C Ratio 15.7 Ratio 10/22/2016 Comp Metabolic Cuf889 CA LCIUM 8.9 mg/dL 10/22/2016 Comp Metabolic Mpl090 AL K PHOS 65 U/L 10/22/2016 Comp Metabolic Hvh014 T(SGOT) 14 U/L 10/22/2016 Comp Metabolic Mro259 AL T(SGPT) 19 U/L 10/22/2016 Comp Metabolic Txz859 BI LI T 0.8 mg/dL 10/22/2016 Comp Metabolic Klk926 AL BUMIN 3.5 g/dL 10/22/2016 Comp Metabolic Tic635 TP RO 7.0 g/dL 10/22/2016 Comp Metabolic Edh236 GL OB 3.5 g/dL 10/22/2016 Comp Metabolic Dmc569 A/ G Ratio 1.0 Ratio 10/22/2016 Comp Metabolic Wtz601 Os mo 272 mOsmo 10/22/2016 Manual Differential Ord52 D-Neutr 38 % 10/22/2016 Manual Differential Ord52 D-Bands 15 % 10/22/2016 Manual Differential Ord52 D-Lymph 37 % 10/22/2016 Manual Differential Ord52 D-Eos 4 % 10/22/2016 Manual Differential Ord52 D-[place] 3 % 10/22/2016 Manual Differential Ord52 D-Aty L[place] 3 % 10/22/2016 Free T4 Ffa868 FREE T4 1.38 ng/dL 10/22/2016 Tsh Ord6 hTSH II 2.05 uIU/mL 10/22/2016 Free T4 Ans059 FREE T4 0.85 ng/dL 05/20/2016 Tsh Ord6 hTSH II 0.63 uIU/mL 05/20/2016 CHEM 14 5630377 AST 16 U/L 09/09/2013 CHEM 14 20280123 ALT 20 IU/L 09/09/2013 CHEM 14 20280123 BUN 17 MG/DL 09/09/2013 CHEM 14 2986884 ALBUMIN 3.6 GM/DL 09/09/2013 CHEM 14 8525647 CHLORIDE 102 MMOL/L 09/09/2013 CHEM 14 20280123 BILI TOT 0.3 MG/DL 09/09/2013 CHEM 14 4191620 ALK PHOS 88 U/L 09/09/2013 CHEM 14 3023625 SODIUM 138 MMOL/L 09/09/2013 CHEM 14 4738398 CREATINI NE 1.10 MG/DL 09/09/2013 CHEM 14 3993693 CALCIUM 9.0 MG/DL 09/09/2013 CHEM 14 5720102 POTASSIUM 4.8 MMOL/L 09/09/2013 CHEM 14 20280123 PROT TOT 6.7 GM/DL 09/09/2013 CHEM 14 0206107 GLUCOSE 113 MG/DL 09/09/2013 CHEM 14 6968473 BICARB 27 MMOL/L 09/09/2013 CHEM 14 8123044 ANION GAP 9 MEQ/L 09/09/2013 GFR CALC 5665831 GFR AA 60.0L ML/MIN 09/09/2013 GFR CALC 9474433 GFR NON -AA 50.0L ML/MIN 4 Review [...] Procedure Codes Date THER/PROPH/DIAG INJ SC/IM CPT-4: 52391Fawkkkh 12/20/2016 TRIAMCINOLONE ACET I [place] NOS CPT-4: E1443Szblqwn 12/20/2016 TRIAMCINOLONE ACET I [place] NOS CPT-4: Z8690Mgrmgey 12/17/2016 ROCEPHIN, PER 250 MG CPT-4: F4972Ivemjqh 12/17/2016 PPPS, SUBSEQ VISIT CPT-4: J0200Sslayyu 12/11/2015 ADMIN PNEUMOCOCCAL V ACCINE Assigned to/Merissa Dupont CT: [id number] CPT-4: N8159Xfetyxq 07/26/2014 Pneumococcal Polysac charide Vaccine, 23-Valent, Ad CPT-4: 95174Fobewfl 07/26/2014 ROCEPHIN, PER 250 MG CPT-4: M1166Codizqs 01/10/2014 ROUTINE VENIPUNCTURE CPT-4: 84962Oezoumm 09/09/2013 PRESCRIP TRANSMIT A ERX SY CPT-4: Z7647Gkmefxq 02/04/2013 PRESCRIP TRANSMIT A ERX SY CPT-4: O9717Gvgbgrb 12/31/2012 THER/PROPH/DIAG INJ SC/IM CPT-4: 44651Roshaqv 06/26/2011 ROCEPHIN, PER 250 MG CPT-4: A1240Ebqnsgy 06/26/2011 Vital Signs Date Vital 12/17/2016 Blood Pressure 1: 146/86 Code: 8480-6 BMI: 26.1 Code: 48157-7 Heart Rate 1: 94 bpm Height: 5'1" SpO2: 95% Temperature: 36.1 (C ) / 97.0 (F) Weight: 138 lbs 09/17/2016 Blood Pressure 1: 148/88 Code: 8480-6 BMI: 26.5 Code: 88419-7 Heart Rate 1: 86 bpm Height: 5'1" SpO2: 93% Weight: 140 lbs 8 oz 05/20/2016 Blood Pressure 1: 128/82 Code: 8480-6 BMI: 26.3 Code: 13848-8 Heart Rate 1: 99 bpm Height: 5'1" SpO2: 92% Weight: 139 lbs 12/11/2015 Blood Pressure 1: 138/84 Code: 8480-6 BMI: 28.3 Code: 58598-2 Heart Rate 1: 95 bpm Height: 5'1" SpO2: 97% Waist Measure (cm): 89 cm Weight: 150 lbs 10/06/2015 Blood Pressure 1: 128/78 Code: 8480-6 BMI: 28.0 Code: 44936-2 Heart Rate 1: 94 bpm Height: 5'1" SpO2: 96% Weight: 148 lbs 09/21/2015 Blood Pressure 1: 152/78 Code: 8480-6 Blood Pressure 1: 126/94 Code: 8480-6 BMI: 28.0 Code: 52016-0 Heart Rate 1: 104 bpm Height: 5'1" SpO2: 98% Weight: 148 lbs 07/26/2014 Blood Pressure 1: 110/68 Code: 8480-6 BMI: 28.7 Code: 07671-9 Heart Rate 1: 98 bpm Height: 5'1" Weight: 152 lbs 01/25/2014 Blood Pressure 1: 120/78 Code: 8480-6 BMI: 29.3 Code: 71995-0 Heart Rate 1: 104 bpm Height: 5'1" Weight: 155 lbs 01/10/2014 Blood Pressure 1: 138/88 Code: 8480-6 Temperature: 37.1 (C) / 98.7 (F) Weight: 156 lbs 09/23/2013 Blood Pressure 1: 128/78 Code: 8480-6 BMI: 28.9 Code: 39771-8 Heart Rate 1: 88 bpm Height: 5'1" Weight: 153 lbs 09/09/2013 Blood Pressure 1: 110/68 Code: 8480-6 BMI: 28.5 Code: 39751-6 Heart Rate 1: 90 bpm Height: 5'1" SpO2: 90% Weight: 151 lbs 06/03/2013 Blood Pressure 1: 132/82 Code: 8480-6 BMI: 28.9 Code: 44404-5 Heart Rate 1: 88 bpm Height: 5'1" Weight: 153 lbs 02/04/2013 Blood Pressure 1: 140/90 Code: 8480-6 BMI: 29.3 Code: 63471-9 Heart Rate 1: 88 bpm Height: 5'1" Weight: 155 lbs 12/31/2012 Blood Pressure 1: 102/76 Code: 8480-6 BMI: 29.6 Code: 21595-7 Heart Rate 1: 112 bpm Height: 5'1" Weight: 156 lbs 8 oz 10/01/2012 Blood Pressure 1: 116/78 Code: 8480-6 BMI: 29.0 Code: 65818-4 Height: 5'2" Weight: 156 lbs 09/03/2012 Blood Pressure 1: 132/88 Code: 8480-6 Heart Rate 1: 88 bpm Weight: 154 lbs 8 oz 06/26/2011 Blood Pressure 1: 82/58 Code: 8480-6 BMI: 27.5 Code: 04016-8 Heart Rate 1: 80 bpm Height: 5'1" [...] Exacerbating Factors diet 09/17/2016 None hypothyroid 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 P ATIENT, LEVEL III Diagnosis: Cough[ICD10: R05] Diagnosis: Acute bronchitis, unspecified[ICD10: J20.9] Giovanna Robbins MD, [facility] CPT-4: 93165 12/17/2016 ([id number] 20656 EST. P ATIENT, LEVEL IV Diagnosis: Atrophy of thyroid (acquired)[ICD10: E03.4] Diagnosis: Mixed hyperlipidemia[ICD10: E78.2] Diagnosis: Generalized anxiety disorder[ICD10: F41.1] Disha Robbins MD, C CPT-4: 03874 09/17/[id number]) [id number] EST. P ATIENT, LEVEL III Diagnosis: Atrophy of thyroid (acquired)[ICD10: E03.4] Diagnosis: Generalized anxiety disorder[ICD10: F41.1] Disha Robbins MD, C CPT-4: 45296 05/20/2016 [id number] EST. PATIENT, LEVEL II Diagnosis: Blister (nonthermal), right great toe, initial encounter[ICD10: S90.421A] Giovanna Robbins MD, [facility] CPT-4: 08797 10/06/2015 ([id number]) 46398 EST. P ATIENT, LEVEL IV Diagnosis: Elevated blood-pressure reading, without diagnosis of hypertension[ICD10: R03.0] Diagnosis: Mixed hyperlipidemia[ICD10: E78.2] Diagnosis: Hypothyroidism, unspecified[ICD10: E03.9] Giovanna Robbins MD, [facility] CPT-4: 57774 09/21/2015 ([id number]) 86906 EST. P ATIENT, LEVEL IV Diagnosis: HYPERLIPIDEMIA[ICD9: 272.4] Diagnosis: HYPOTHYROIDISM[ICD9: 244.9] Diagnosis: Need for pneumococcal vaccine[ICD9: V03.82] Disha Robbins MD [facility] CPT-4: 39775 07/26/2014 ([id number]) 10350 EST. P ATIENT, LEVEL IV Diagnosis: HYPERLIPIDEMIA[ICD9: 272.4] Diagnosis: HYPOTHYROIDISM[ICD9: 244.9] Diagnosis: DEPRESSIVE DISORDER NEC[ICD9: 311] Disha Robbins MD, [facility] CPT- 4: 83036 01/25/2014 ([id number]) 41264 EST. P ATIENT, LEVEL III Diagnosis: ACUTE PHARYNGITIS[ICD9: 462] Givoanna Robbins MD, [facility] CPT- 4: 97966 01/10/2014 ([id number]) 37164 EST. P ATIENT, LEVEL III Diagnosis: GENERALIZED ANXIETY DISEASE[ICD9: 300.02] Diagnosis: Ear pain[ICD9: 388.70] Disha Robbins MD, [facility] CPT-4: 48587 09/23/2013 ([id number]) 38921 EST. P ATIENT, LEVEL IV Diagnosis: BACTERIAL PNEUMONIA[ICD9: 482.9] Diagnosis: Encounter for long-term (current) use of other medications[ICD9: V58.69] Diagnosis: HYPOTHYROIDISM[ICD9: 244.9] Diagnosis: DEPRESSIVE DISORDER NEC[ICD9: 311] Disha Robbins MD, [facility] CPT- 4: 90733 09/09/2013 ([id number]) 88021 EST. 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 P ATIENT, LEVEL IV Diagnosis: Renal insufficiency[ICD9: 593.9] Diagnosis: HYPERLIPIDEMIA[ICD9: 272.4] Diagnosis: DEPRESSIVE DISORDER NEC[ICD9: 311] Diagnosis: KIMANI (generalized anxiety disorder)[ICD9: 300.02] Disha Robbins MD, C CPT-4: 71776 10/01/2012 ([id number]) 09505 EST. P [facility], LEVEL IV Diagnosis: HYPERLIPIDEMIA[ICD9: 272.4] Diagnosis: DEPRESSIVE DISORDER NEC[ICD9: 311] Diagnosis: KIMANI (generalized anxiety disorder)[ICD9: 300.02] Disha Robbins MD, C CPT-4: 28585 09/03/2012 [id number] EST. PATIENT, LEVEL IV Diagnosis: HYPOTHYROIDISM[ICD9: 244.9] Diagnosis: HYPERLIPIDEMIA[ICD9: 272.4] Diagnosis: ACUTE MAXILLARY SINUSITIS[ICD9: 461.0] Disha Robbins MD, [facility] CPT-4: 50620 06/26/2011 Plan of Care Planned Activity Notes C odes Status Date Visit Plan: Rash-does not appear to be a drug rash-kenalog injection today in the office-continue abx but if rash worsens, stop abx and call the office-start anti histamine daily -may use benadryl as needed-patient verbalized understanding of plan. 12/20/2016 Patient Education: Patient Medication Summary Completed 12/20/2016 Visit Plan: Bronchitis - acute case of b ronchitis identified. Pt has been given antibiotics, breathing treatments as appropriate, and pt has been instructed to call if symptoms are not improved, or if symptoms acutely worsen. 2016 Appointment: Giovanna Gilmore WPtel: [phone] [phone] (30 min) Complex 12/17/2016 Patient Education: Patient [...] medications. 09/17/2016 Appointment: Disha Robbins WPtel: [phone] [facility] (15 min) Moderate 09/17/2016 Patient Education: Patient [...] current medications. 05/20/2016 Appointment: Disha Robbins [facility]el: [phone] (15 min) Moderate 05/20/2016 Patient Education: Patient Medication Summary Completed 05/20/2016 Care Plan: Tsh Pending 05/20/2016 Care Plan: Free T4 Pending 05/20/2016 Care Plan[id number] Pending 12/12/2015 Visit Plan: Medicare Exam - [...] surrogate. 2015 Appointment: [phone] [facility] - Annual Wellness Visit 12/11/2015 Patient Education: [...] Visit Plan: Elevated Blood Pressure - w [facility] diagnosis of hypertension - pt has been [...] levels of control. 09/21/2015 Appointment: (30 min) Trevor 09/21/2015 Patient Education: Patient Medication Summary Completed [...] current medications. 07/26/2014 Appointment: Disha Robbins WPtel: [address] [place], [place] [id number] Follow up 07/26/2014 Patient Education: Patient Medication [...] medications. 01/25/2014 Appointment: Disha Robbins WPtel: [phone] Follow up 01/25/2014 Patient Education: Patient Medication Summary Completed 01/25/2014 Visit Plan: Pharyngitis-Discussed natura l and expected course of this diagnosis and need to alert me if symtpoms do not follow expected course, or if any worse. Recommended salt water gargles as needed for pain. Tylenol/motrin as needed for fever/discomfort. 01/10/2014 Patient Education: Patient Medication Summary Completed 01/10/2014 Appointment: iDsha Robbins WPtel: [phone] Follow up 12/02/2013 Visit Plan: Cerumen on [...] current medications. 2013 Appointment: Disha Robbins WPtel: [address] [place] [address] Follow up 09/23/2013 Patient Education: Patient Medication [...] current medications. 09/09/2013 Appointment: Disha Robbins WPtel: [address] [place] [address] follow up 09/09/2013 Patient Education: Patient Medication [...] not improving. 06/03/2013 Appointment: Disha Robbins WPtel: [address] [place], [place] [phone] Follow up 06/03/2013 Patient Education: Patient Medication [...] clinic [facility]. 02/04/2013 Appointment: Disha Robbins WPtel: [phone] [facility] [place] Other 02/04/2013 Patient Education: Patient Medication Summary Completed 02/04/2013 Appointment: Disha Robbins WPtel: [facility] Follow up 01/28/2013 Visit Plan: Extrapyramidal movement [...] medications. 12/31/2012 Appointment: Disha Robbins WPtel: [phone] [facility] Follow up 12/31/2012 Patient Education: Patient Medication [...] dietary changes. 10/01/2012 Appointment: Disha Robbins WPtel: [phone] Follow up 10/01/2012 Patient Education: Patient Medication [...] medications. 2012 Appointment: Disha Robbins WPtel: [phone] Follow up 09/03/2012 Patient Education: Patient Medication [...] this time. 2010 Appointment: Disha Robbins WPtel: [facility] Other 06/26/2011 Patient Education: Patient Medication Summary [...] again, call clinic [facility]. . Blister of toe-dra angulod today in the office and occlusive dressing [...]
--- OUTSIDE RECORDS SUMMARY | 2019-11-16 08:54 | XMS REPORT | CCD ---
Author Author Nikole Robbins Organization Disha Robbins MD, [facility] Address [address] [place] [address] Phone Care Team Providers Care Clinical Resource Nurse Name Role Phone PP Unavailable CCM Unavailable Summary Purpose Interface Exchange Insurance Providers Payer name Policy type / Coverage type Covered republican ID Effective Begin Date Effective End Date WPS Medicare Part B Medicare Part B [id number] 2018 Unknown [employer] Medicare Part B [id number] Unknown Family history Son Diagnosis Age At [...] ntly unemployed 06/26/[address]: 477853871 Never smoker 06/26/[address]: 840044665 Never drinks alcohol 06/26/2011 Has the patient [...] Date Stop Date Sta tus Fill Instructions fluoxetine 20 mg cap [place] RxNorm: 242628 TAKE 1 CAPSULE BY ANGELIQUE ONCE DAILY 11/17/2018 No Stop Date Active lovastatin 20 mg tablet RxNorm: 152803 TAKE 1 TABLET BY MOUTH AT BEDTIME 11/10/2018 No Stop Date Active metoprolol tartrate 25 mg tablet RxNorm: 715550 TAKE 1/2 (ONE-HALF) T ABLET BY MOUTH TWICE DAILY 09/03/2018 No Stop Date Active Synthroid 75 mcg tablet RxNorm: 339647 TAKE ONE TABLET BY MOUTH ONCE DAILY 08/24/2018 No Stop Date Active olanzapine 2.5 mg ta blet RxNorm: 509241 TAKE 1 TABLET BY MOUT H ONCE DAILY 06/24/2018 No Stop Date Active fluoxetine 20 mg cap kamer[place] RxNorm: 837233 TAKE 1 CAPSULE BY ANGELIQUE TH ONCE DAILY 05/14/2018 11/16/2018 In active metoprolol tartrate 25 mg tablet RxNorm: 123366 1/2 Tablet(s) PO BID 05/07/2018 09/02/2018 Inactive olanzapine 2.5 mg ta blet RxNorm: 480723 TAKE ONE TABLET BY MO UTH ONCE DAILY 12/23/2017 06/23/2018 In active fluoxetine 20 mg cap kameron RxNorm: 167763 TAKE ONE CAPSULE BY M OUTH ONCE DAILY 11/14/2017 05/13/2018 In active lovastatin 20 mg tablet RxNorm: 261970 Tablet(s) TAKE ONE TABLET BY MOUTH AT BE DTIME 10/24/2017 10/18/2018 Inactive KCL 20 meq RxNorm: 1 PO BID 10/13/2017 No S top Date Active niacin ER 500 mg tab let,extended release RxNorm: 217092 1 Tablet(s) PO QHS 10/13/2017 No Stop Date Active cefdinir 300 mg capsule RxNorm: 262754 1 Capsule(s) PO BID 09/30/2017 10/06/2017 Inactive cefdinir 300 mg capsule RxNorm: 613781 1 Capsule(s) PO BID 09/30/2017 09/29/2017 Inactive Zithromax Z-Yan 250 mg tablet RxNorm: 408435 1 Tablet(s) PO UD 09/30/2017 10/12/2017 Inactive z pack as directed lovastatin 20 mg tablet RxNorm: 298176 Tablet(s) TAKE ONE TABLET BY MOUTH AT BE DTIME 09/10/2017 10/23/2017 Inactive Synthroid 75 mcg tablet RxNorm: 436239 TAKE ONE TABLET BY MOUTH ONCE DAILY 08/01/2017 08/23/2018 In active olanzapine 2.5 mg ta blet RxNorm: 035368 TAKE ONE TABLET BY MO UTH ONCE DAILY 05/27/2017 11/22/2017 In active Zithromax Z-Yan 250 mg tablet RxNorm: 634589 1 Tablet(s) PO UD 04/29/2017 09/29/2017 Inactive z pack as directed fluoxetine 20 mg cap kameron RxNorm: 339687 TAKE ONE CAPSULE BY M OUTH ONCE DAILY 04/28/2017 10/24/2017 In active lovastatin 20 mg tablet RxNorm: 223947 TAKE ONE TABLET BY MOUTH AT BEDTIME 04/28/2017 09/09/2017 In active Synthroid 75 mcg tablet RxNorm: 838195 TAKE ONE TABLET BY MOUTH ONCE DAILY 04/08/2017 07/31/2017 In active losartan 50 mg tablet RxNorm: 338283 1 Tablet(s) PO daily 03/20/2017 10/08/2017 Inactive losartan 50 mg tablet RxNorm: 755618 1 Tablet(s) PO daily 03/18/2017 03/19/2017 Inactive olanzapine 2.5 mg ta blet RxNorm: 345454 TAKE ONE TABLET BY MO UTH ONCE DAILY 02/28/2017 05/26/2017 In active Kenalog 40 mg/mL kassie pension for injection RxNorm: 5986573 Milliliter(s) Inj 12/20/2016 12/20/2016 In active ceftriaxone 500 mg s olution for injection RxNorm: 1311527 1 Milliliter(s) Inj 12/17/2016 12/17/2016 In active Zithromax Z-Yan 250 mg tablet RxNorm: 720613 1 Tablet(s) PO UD 12/17/2016 12/21/2016 Inactive zpack Kenalog 40 mg/mL kassie pension for injection RxNorm: 5579522 1 Milliliter(s) Inj 12/17/2016 12/17/2016 In active Synthroid 75 mcg tablet RxNorm: 625329 TAKE ONE TABLET BY MOUTH ONCE DAILY 11/08/2016 04/06/2017 In active lovastatin 20 mg tablet RxNorm: 526671 TAKE ONE TABLET BY MOUTH AT BEDTIME 10/28/2016 04/25/2017 In active fluoxetine 20 mg cap kameron RxNorm: 156831 TAKE ONE CAPSULE BY M OUTH ONCE DAILY 10/28/2016 04/25/2017 In active Synthroid 75 mcg tablet RxNorm: 830070 TAKE ONE TABLET BY MOUTH ONCE DAILY 10/08/2016 11/06/2016 In active Zithromax Z-Yan 250 mg tablet RxNorm: 474425 1 Tablet(s) PO UD 07/29/2016 09/16/2016 Inactive zpack as directed olanzapine 2.5 mg ta blet RxNorm: 392315 TAKE ONE TABLET BY MO UTH ONCE DAILY 07/29/2016 06/23/2018 In active lovastatin 20 mg tablet RxNorm: 344437 TAKE ONE TABLET BY MOUTH AT BEDTIME 07/02/2016 10/27/2016 In active olanzapine 2.5 mg ta blet RxNorm: 865113 TAKE ONE TABLET BY MO UTH ONCE DAILY 04/29/2016 09/16/2016 In active olanzapine 2.5 mg ta blet RxNorm: 650000 TAKE ONE TABLET BY MO UTH ONCE DAILY 04/29/2016 04/28/2016 In active fluoxetine 20 mg cap kameron RxNorm: 415313 TAKE ONE CAPSULE BY M OUTH ONCE DAILY 03/26/2016 09/21/2016 In active olanzapine 2.5 mg ta blet RxNorm: 234593 Tablet(s) TAKE ONE TA BLET BY MOUTH ONCE DAILY 01/31/2016 03/30/2016 Inactive olanzapine 2.5 mg ta blet RxNorm: 829651 Tablet(s) TAKE ONE TA BLET BY MOUTH ONCE DAILY 01/25/2016 01/30/2016 Inactive lovastatin 20 mg tablet RxNorm: 014848 TAKE ONE TABLET BY MOUTH AT BEDTIME 12/28/2015 06/24/2016 In active fluoxetine 20 mg cap kameron RxNorm: 755212 Capsule(s) TAKE ONE C APSULE BY MOUTH ONCE DAILY 12/28/2015 09/16/2016 Inactive olanzapine 2.5 mg ta blet RxNorm: 715697 TAKE ONE TABLET BY MO UTH ONCE DAILY 11/24/2015 01/22/2016 In active mupirocin 2 % topica l ointment RxNorm: 285301 1 Application TOP BID 10/06/2015 10/12/2015 Inactive Synthroid 75 mcg tablet RxNorm: 957583 Tablet(s) PO daily TAKE ONE TABLET BY MO UTH EVERY DAY 09/18/2015 09/11/2016 Inactive [SAVINGS FOR NON-COVERED DR UGS -- BIN:[id number], PCN: ASPROD1, Group: XXXXX, ID# [id number], Questions: . THIS IS NOT INSURANCE.] Synthroid 75 mcg tablet RxNorm: 442706 Tablet(s) PO daily TAKE ONE TABLET BY MO UTH EVERY DAY 09/15/2015 09/17/2015 Inactive [SAVINGS FOR NON-COVERED DR UGS -- BIN:034794, PCN: ASPROD1, Group: XXXXX, ID# [id number], Questions: . THIS IS NOT INSURANCE.] Synthroid 75 mcg tablet RxNorm: 232138 Tablet(s) TAKE ONE TABLET BY MOUTH EVERY DAY 09/14/2015 09/14/2015 Inactive [SAVINGS FOR NON-COVERED DRUGS -- BIN:00 3585, PCN: ASPROD1, Group: XXXXX, ID# XXXXXXX, Questions: . THIS IS NOT INSURANCE.] fluoxetine 20 mg cap kameron RxNorm: 854996 TAKE ONE CAPSULE BY M OUT ONCE DAILY 08/24/2015 12/21/2015 In active lovastatin 20 mg tablet RxNorm: 337808 1 Tablet(s) PO QHS TAKE ONE TABLET BY MO [facility] AT BEDTIME 05/29/2015 12/24/2015 Inactive [SAVINGS FOR NON-COVERED DR UGS -- BIN:[id number], PCN: ASPROD1, Group: XXXXX, ID# [id number], Questions: . THIS IS NOT INSURANCE.] olanzapine 2.5 mg ta blet RxNorm: 19990922 TAKE ONE TABLET BY MO UTH ONCE DAILY 05/25/2015 11/20/2015 In active olanzapine 2.5 mg ta blet RxNorm: 19990922 1 Tablet(s) daily PATRIZIA E ONE TABLET BY MOUTH EVERY DAY 02/27/2015 05/24/2015 Inactive [SAVINGS FOR NON-COVERED DR UGS -- BIN:030009, PCN: ASPROD1, Group: XXXXX, ID# [id number], Questions: . THIS IS NOT INSURANCE.] fluoxetine 20 mg cap kameron RxNorm: 442205 Capsule(s) TAKE ONE C APSULE BY MOUTH EVERY DAY 02/27/2015 08/23/2015 Inactive prednisone 20 mg tablet RxNorm: 037468 1 Tablet(s) PO BID 01/16/2015 01/18/2015 Inactive prednisone 20 mg tablet RxNorm: 265293 1 Tablet(s) PO BID 01/16/2015 01/15/2015 Inactive Zithromax Z-Yan 250 mg tablet RxNorm: 424293 1 Tablet(s) PO as doc tor directed 01/16/2015 07/28/2016 In active zpack as directed olanzapine 2.5 mg ta blet RxNorm: 083091 1 Tablet(s) daily PATRIZIA E ONE TABLET BY MOUTH EVERY DAY 11/24/2014 02/21/2015 Inactive [SAVINGS FOR NON-COVERED DR HAMMOND -- BIN:[id number], PCN: ASPROD1, Group: XXXXX, ID# [id number], Questions: . THIS IS NOT INSURANCE.] lovastatin 20 mg tablet RxNorm: 635846 1 Tablet(s) PO QHS TAKE ONE TABLET BY MO UTH AT BEDTIME 10/26/2014 05/23/2015 Inactive [SAVINGS FOR NON-COVERED DR MOCKS -- BIN:862911, PCN: ASPROD1, Group: XXXXX, ID# [id number], Questions: . THIS IS NOT INSURANCE.] Synthroid 75 mcg tablet RxNorm: 078965 1 Tablet(s) PO daily TAKE ONE TABLET BY MOUTH EVERY DAY 09/19/2014 12/17/2014 Inactive Synthroid 75 mcg tablet RxNorm: 633751 Tablet(s) TAKE ONE TABLET BY MOUTH EVERY DAY 09/19/2014 09/13/2015 Inactive [SAVINGS FOR NON-COVERED DRUGS -- BIN:00 3585, PCN: ASPROD1, Group: XXXXX, ID# [id number], Questions: . THIS IS NOT INSURANCE.] fluoxetine 20 mg cap kameron RxNorm: 645053 TAKE ONE CAPSULE BY M OUTH EVERY DAY 08/04/2014 01/30/2015 In active fluoxetine 20 mg cap kameron RxNorm: 824285 1 Capsule(s) PO daily TAKE ONE CAPSULE BY MOUTH EVERY DAY 08/02/2014 08/03/2014 Inactive [SAVINGS FOR UNINSURED ERNIE ENTS -- BIN:[id number], PCN: ASPROD1, Group: [id number], ID# [id number], Process claim through [employer], for questions: . THIS IS NOT INSURANCE.] lovastatin 20 mg tablet RxNorm: 781861 TAKE ONE TABLET BY MOUTH AT BEDTIME 07/25/2014 10/22/2014 In active olanzapine 2.5 mg ta blet RxNorm: 120091 Tablet(s) TAKE ONE TA BLET BY MOUTH EVERY DAY 07/19/2014 07/18/2014 Inactive olanzapine 2.5 mg ta blet RxNorm: 876549 TAKE ONE TABLET BY MO UTH EVERY DAY 07/19/2014 10/16/2014 In active Synthroid 75 mcg tablet RxNorm: 099968 1 Tablet(s) PO daily TAKE ONE TABLET BY MOUTH EVERY DAY 06/20/2014 06/19/2014 Inactive Synthroid 75 mcg tablet RxNorm: 909833 TAKE ONE TABLET BY MOUTH EVERY DAY 06/20/2014 09/18/2014 In active lovastatin 20 mg tablet RxNorm: 895019 TAKE ONE TABLET BY MOUTH AT BEDTIME 04/22/2014 07/20/2014 In active olanzapine 2.5 mg ta blet RxNorm: 228886 TAKE ONE TABLET BY MO UTH EVERY DAY 04/21/2014 07/18/2014 In active Synthroid 75 mcg tablet RxNorm: 281926 TAKE ONE TABLET BY MOUTH EVERY DAY 03/22/2014 06/19/2014 In active fluoxetine 20 mg cap kameron RxNorm: 848287 TAKE ONE CAPSULE BY M OUTH EVERY DAY 02/02/2014 07/31/2014 In active lovastatin 20 mg tablet RxNorm: 744396 TAKE ONE TABLET BY MOUTH AT BEDTIME 01/20/2014 04/19/2014 In active olanzapine 2.5 mg ta blet RxNorm: 215777 TAKE ONE TABLET BY MO UTH EVERY DAY 01/14/2014 04/13/2014 In active amoxicillin 500 mg t ablet RxNorm: 035172 1 Tablet(s) PO TID 01/10/2014 01/16/2014 Inactive Rocephin 500 mg solu tion for injection RxNorm: 617121 Inj 01/1001/10/2014 Inactive Synthroid 75 mcg tablet RxNorm: 434082 Tablet(s) PO TAKE ONE TABLET BY MOUTH EV FERCHO DAY 12/27/2013 03/21/2014 Inactive lovastatin 20 mg tablet RxNorm: 934841 Tablet(s) PO TAKE ONE TABLET BY MOUTH AT BEDTIME 12/20/2013 01/19/2014 Inactive olanzapine 2.5 mg ta blet RxNorm: 855146 Tablet(s) PO TAKE ONE TABLET BY MOUTH EVERY DAY 12/17/2013 01/13/2014 Inactive Synthroid 75 mcg tablet RxNorm: 138573 Tablet(s) PO TAKE ONE TABLET BY MOUTH FERCHO DAY 11/22/2013 12/26/2013 Inactive lovastatin 20 mg tablet RxNorm: 315808 Tablet(s) PO TAKE ONE TABLET BY MOUTH AT BEDTIME 11/15/2013 12/19/2013 Inactive olanzapine 2.5 mg ta blet RxNorm: 152292 Tablet(s) PO TAKE ONE TABLET BY MOUTH EVERY DAY 11/15/2013 12/16/2013 Inactive Synthroid 75 mcg tablet RxNorm: 721441 Tablet(s) PO TAKE ONE TABLET BY MOUTH FERCHO DAY 10/25/2013 11/21/2013 Inactive lovastatin 20 mg tablet RxNorm: 824759 Tablet(s) PO TAKE ONE TABLET BY MOUTH AT BEDTIME 10/18/2013 11/14/2013 Inactive Zithromax 250 mg tablet RxNorm: 858640 Tablet(s) PO 08/30/2013 07/26/2014 Inactive zpac k as directed Synthroid 75 mcg tablet RxNorm: 761405 Tablet(s) PO TAKE ONE TABLET BY MOUTH EV FERCHO DAY 05/24/2013 10/24/2013 Inactive lovastatin 20 mg tablet RxNorm: 953590 Tablet(s) PO TAKE ONE TABLET BY MOUTH AT BEDTIME 04/19/2013 10/17/2013 Inactive olanzapine 2.5 mg ta blet RxNorm: 662053 1 Tablet(s) PO 02/04/2013 09/01/2013 Inactive fluoxetine 20 mg cap kameron RxNorm: 446898 Capsule(s) PO TAKE ON E CAPSULE BY MOUTH EVERY DAY 01/08/2013 02/01/2014 Inactive olanzapine 5 mg tablet RxNorm: 287105 1/2 Tablet(s) PO daily zyprexa 12/31/2012 02/03/2013 In active Synthroid 75 mcg tablet RxNorm: 396267 1 Tablet(s) PO daily 09/29/2012 03/27/2013 Inactive Vitamin D2 50,000 un it capsule RxNorm: 727963 1 Capsule(s) PO QW 09/29/2012 09/16/2016 Inactive one weekly x 8 weeks then 1000units dorcas y thereafter Synthroid 75 mcg tablet RxNorm: 163682 1 Tablet(s) PO daily 09/29/2012 09/28/2012 Inactive lovastatin 20 mg tablet RxNorm: 077395 Tablet(s) PO TAKE ONE TABLET BY MOUTH AT BEDTIME 09/21/2012 04/18/2013 Inactive fluoxetine 20 mg cap kameron RxNorm: 457115 1 Capsule(s) PO daily TAKE ONE CAPSULE BY MOUTH EVERY DAY 09/16/2012 01/07/2013 Inactive Synthroid 50 mcg tablet RxNorm: 153072 1 Tablet(s) PO daily 09/14/2012 12/31/2012 Inactive brand name only fluoxetine 20 mg cap kameron RxNorm: 640878 Capsule(s) PO TAKE ON E CAPSULE BY MOUTH EVERY DAY 09/07/2012 09/15/2012 Inactive Synthroid 50 mcg tablet RxNorm: 620130 1 Tablet(s) PO daily 09/07/2012 09/13/2012 Inactive brand name only niacin ER 500 mg tab let,extended release RxNorm: 786003 2 Tablet(s) PO daily 09/03/2012 10/12/2017 In active lovastatin 20 mg tablet RxNorm: 706860 1 Tablet(s) PO QHS TAKE ONE TABLET BY MO [facility] AT BEDTIME 08/26/2012 09/20/2012 Inactive Zithromax Z-Yan 250 mg tablet RxNorm: 012639 Tablet(s) PO UD 08/13/2012 12/31/2012 Inactive fluoxetine 20 mg cap kameron RxNorm: 095471 Capsule(s) PO 05/11/2012 09/06/2012 Inactive TAKE ONE CAPSULE BY MOUTH EVERY DAY fluoxetine 20 mg cap kameron RxNorm: 692414 1 Capsule(s) PO daily 01/06/2012 05/04/2012 Inactive Zyprexa 5 mg Tab RxNorm: 868275 Tablet(s) PO 01/06/2012 12/31/2012 Inactive TAKE ONE TABLET BY MOUTH EVERY DAY lovastatin 20 mg tablet RxNorm: 862285 Tablet(s) PO 12/24/2011 08/26/2012 Inactive TAKE ONE TABLET BY MOUTH AT BEDTIME Rocephin 500 mg Solu tion for Injection RxNorm: 1491327 Inj 12/0 01/201112/31/2012 Inactive Keppra 500 mg tablet RxNorm: 256690 1 Tablet(s) PO BID No Start Date Active omeprazole 20 mg Cap , Delayed Release RxNorm: 638960 1 Capsule(s) PO BID No Start Date Active oxycodone-acetaminop hen 5 mg-325 mg Tab RxNorm: 3891848 1 Tablet(s) PO Q4 SD N No Start Date Active acyclovir 800 mg tablet RxNorm: 934526 1 Tablet(s) PO daily No Start Date Active letrozole 2.5 mg Tab RxNorm: 694282 1 Tablet(s) PO daily No Start Date Active multivitamin Cap RxNorm: 1 Capsule(s) PO daily No Start Date Active Aspirin Low Dose 81 mg tablet,delayed release RxNorm: 584849 1 Tablet(s) PO daily No Start Date Active Calcium 600 + D(3) 6 00 mg (1,500)-200 unit Tab RxNorm: 036934 1 Tablet(s) PO daily No Start Date Active Vitamin B-12 1,000 m cg tablet RxNorm: 796736 1 Tablet(s) PO daily No Start Date Active ferrous sulfate 325 mg (65 mg iron) tablet RxNorm: 283130 1 Tablet(s) PO daily No Start Date Active KCL 20 meq RxNorm: 1 PO daily No Start Date 10/12/2017 Inactive Zyprexa 5 mg Tab RxNorm: 268150 1 Tablet(s) PO daily No Start Date 01/05/2012 Inactive Zithromax Z-Yan 250 mg tablet RxNorm: 312803 Tablet(s) PO UD No Start Date 08/12/2012 Inactive Zithromax Z-Yan 250 mg tablet RxNorm: 222617 1 Tablet(s) PO UD No Start Date 04/28/2017 Inactive z pack as directed niacin ER 500 mg tab let,extended release RxNorm: 7719060 1 Tablet(s) PO daily No Start Date 09/02/2012 Inactive Vitamin D2 50,000 un it capsule RxNorm: 5078956 1 Capsule(s) PO QW No Start Date 09/28/2012 Inactive one weekly x 8 weeks then 1000units dorcas y thereafter Synthroid 50 mcg tablet RxNorm: 509174 1 Tablet(s) PO daily No Start Date 09/06/2012 Inactive brand name only acyclovir 400 mg Tab RxNorm: 864680 1 Tablet(s) PO BID No Start Date 09/15/2012 Inactive Zithromax Z-Yan 250 mg tablet RxNorm: 436387 1 Tablet(s) PO as doc tor directed No Start Date 01/15/2015 Inactive zpack as directed metoprolol tartrate 25 mg tablet RxNorm: 618116 1/2 Tablet(s) PO BID No Start Date 05/06/2018 Inactive fluoxetine 20 mg Tab RxNorm: 670980 1 Tablet(s) PO daily No Start Date 07/26/2014 Inactive REVLIMID 10 mg Cap RxNorm: 441552 1 Capsule(s) PO daily No Start Date 12/31/2012 Inactive lovastatin 20 mg Tab RxNorm: 639505 1 Tablet(s) PO QHS No Start Date 12/23/2011 Inactive aspirin 81 mg Cap, D elayed Release RxNorm: 384066 1 Capsule(s) PO daily No Start Date 12/30/2012 Inactive olanzapine 5 mg tablet RxNorm: 200654 1 Tablet(s) PO daily zyprexa No Start Date 12/30/2012 Inactive Zithromax 250 mg tablet RxNorm: 115559 Tablet(s) PO No Start Date 08/29/2013 Inactive zpac k as directed levofloxacin 500 mg Tab RxNorm: 013918 1 Tablet(s) PO daily No Start Date 06/26/2011 Inactive levothyroxine 50 mcg Tab RxNorm: 458251 1 Tablet(s) PO daily No Start Date 12/31/2012 Inactive dexamethasone 4 mg Tab RxNorm: 558406 2 Tablet(s) PO weekly No Start Date 12/31/2012 Inactive Medication Administered Medication Codes Instruc tions Start Date Status Kenalog 40 mg/mL suspension for injection RxNorm: 9121277 Milliliter 12/20/2016 No longer Active ceftriaxone 500 mg solution for injection RxNorm: 2366044 1Milliliter 12/17/2016 N o longer Active Kenalog 40 mg/mL suspension for injection RxNorm: 5616152 1Milliliter 12/17/2016 N o longer Active Rocephin 500 mg solution for injection RxNorm: 457527 01/10/2014 No longer A ctive Immunizations Vaccine [...] Item Item Code Result Date Free T4 [id number] FREE T4 1.06 ng/dL 11/18/2016 Tsh Ord6 [...] 33.2 pg 10/22/2016 Cbc With Differential Ord2 [place]hing% 36.7 % 10/22/2016 Cbc With Differential Ord2 [...] 0.51 K/ul 10/22/2016 Cbc With Differential Ord2 [place]hing ABS# 0.6 K/ul 10/22/2016 Cbc With Differential Ord2 Eos ABS# 0.0 K/ul 10/22/2016 Cbc With Differential Ord2 Baso ABS# 0.0 K/ul 10/22/2016 Lipid Ord30 CHOL 99 mg/dL 10/22/2016 Lipid Ord30 HDL 38.0 mg/dl 10/22/2016 Lipid Ord30 TRIG 102 mg/dL 10/22/2016 Lipid Ord30 LDL 41 mg/dL 10/22/2016 Lipid Ord30 C/HDL 2.6 Ratio 10/22/2016 Comp Metabolic Qhc034 NA 135 mEq/L 10/22/2016 Comp Metabolic Mkz245 K 4.5 mEq/L 10/22/2016 Comp Metabolic Foz407 CL 102 mEq/L 10/22/2016 Comp Metabolic Ztf966 CO2 20.0 mEq/L 10/22/2016 Comp Metabolic Shf150 AN ION GAP 18 10/22/2016 Comp Metabolic Bad095 GL UCOSE 108 mg/dL 10/22/2016 Comp Metabolic Npt783 Cr eat 1.1 mg/dL 10/22/2016 Comp Metabolic Lpq092 eG FR 53 ml/min/1.73m2 10/22 Comp Metabolic Vdc279 BUN 17 mg/dL 10/22/2016 Comp Metabolic Yug684 B/ C Ratio 15.7 Ratio 10/22/2016 Comp Metabolic Uvu532 CA LCIUM 8.9 mg/dL 10/22/2016 Comp Metabolic Ilt993 AL K PHOS 65 U/L 10/22/2016 Comp Metabolic Hnr393 T(SGOT) 14 U/L 10/22/2016 Comp Metabolic Djg561 AL T(SGPT) 19 U/L 10/22/2016 Comp Metabolic Mum273 BI LI T 0.8 mg/dL 10/22/2016 Comp Metabolic Gyl673 AL BUMIN 3.5 g/dL 10/22/2016 Comp Metabolic Ypd120 TP RO 7.0 g/dL 10/22/2016 Comp Metabolic Udv624 GL OB 3.5 g/dL 10/22/2016 Comp Metabolic Tsr062 A/ G Ratio 1.0 Ratio 10/22/2016 Comp Metabolic Nga495 Os mo 272 mOsmo 10/22/2016 Manual Differential Ord52 D-Neutr 38 % 10/22/2016 Manual Differential Ord52 D-Bands 15 % 10/22/2016 Manual Differential Ord52 D-Lymph 37 % 10/22/2016 Manual Differential Ord52 D-Eos 4 % 10/22/2016 Manual Differential Ord52 D-Clifton 3 % 10/22/2016 Manual Differential Ord52 D-Aty Lymp 3 % 10/22/2016 Free T4 Efh186 FREE T4 1.38 ng/dL 10/22/2016 Tsh Ord6 hTSH II 2.05 uIU/mL 10/22/2016 Free T4 Mck884 FREE T4 0.85 ng/dL 05/20/2016 Tsh Ord6 hTSH II 0.63 uIU/mL 05/20/2016 CHEM 14 20280123 AST 16 U/L 09/09/2013 CHEM 14 20280123 ALT 20 IU/L 09/09/2013 CHEM 14 20280123 BUN 17 MG/DL 09/09/2013 CHEM 14 20280123 ALBUMIN 3.6 GM/DL 09/09/2013 CHEM 14 20280123 CHLORIDE 102 MMOL/L 09/09/2013 CHEM 14 20280123 BILI TOT 0.3 MG/DL 09/09/2013 CHEM 14 20280123 ALK PHOS 88 U/L 09/09/2013 CHEM 14 20280123 SODIUM 138 MMOL/L 09/09/2013 CHEM 14 9958218 CREATINI NE 1.10 MG/DL 09/09/2013 CHEM 14 7486035 CALCIUM 9.0 MG/DL 09/09/2013 CHEM 14 7744856 POTASSIUM 4.8 MMOL/L 09/09/2013 CHEM 14 4224676 PROT TOT 6.7 GM/DL 09/09/2013 CHEM 14 5747538 GLUCOSE 113 MG/DL 09/09/2013 CHEM 14 3303948 BICARB 27 MMOL/L 09/09/2013 CHEM 14 0839978 ANION GAP 9 MEQ/L 09/09/2013 GFR CALC 6617779 GFR AA 60.0L ML/MIN 09/09/2013 GFR CALC 5079862 GFR NON -AA 50.0L ML/MIN 4 Review [...] No rash Dermatologic No sores Psychiatric anxiety 07/02/2013 Psychiatric depression 0 02/04/2013 Constitutional No recent [...] gingiva 09/21/2015 None Full Exam - General 1995 Ears/Nose/Throat lips/teeth/gingiva Overall: no masses 09/21/2015 None [...] time 09/09/2013 None Full Exam - General 1995 Psychiatric mood and affect Overall: normal mood and affect 09/09/2013 None Full Exam - General 1994 Psychiatric mood and affect Mood: happy 09/09/2013 None Full Exam - General 1994 Respiratory auscultation Lower lung field: crackles 09/09/2013 None Full Exam - General 1995 Respiratory auscultation Upper lung field: a normal exam 09/09/2013 None Full Exam - General 1994 Constitutional general appearance Overall: well nourished 06/03/2013 None Full Exam - General 1995 Constitutional general appearance Overall: well developed 06/03/2013 None Full Exam - General 1995 [...] Procedure Codes Date THER/PROPH/DIAG INJ SC/IM CPT-4: 04537 12/20/2016 TRIAMCINOLONE ACET I [place] NOS CPT-4: J3301 12/20/2016 TRIAMCINOLONE ACET I NJ NOS CPT-4: J3301 12/17/2016 ROCEPHIN, PER 250 MG CPT-4: J0696 12/17/2016 PPPS, SUBSEQ VISIT CPT- 4: G0439 12/11/2015 ADMIN PNEUMOCOCCAL V ACCINE Assigned to/Merissa Dupont CT: [id number] CPT-4: [id number] 07/26/2014 Pneumococcal Polysac charide Vaccine, 23-Valent, Ad CPT-4: 68723 07/26/2014 ROCEPHIN, PER 250 MG CPT-4: J0696 01/10/2014 ROUTINE VENIPUNCTURE CPT-4: 00831 09/09/2013 PRESCRIP TRANSMIT A ERX SY CPT-4: G8553 02/04/2013 PRESCRIP TRANSMIT A ERX SY CPT-4: G8553 12/31/2012 THER/PROPH/DIAG INJ SC/IM CPT-4: 62331 06/26/2011 ROCEPHIN, PER 250 MG CPT-4: J0696 06/26/2011 Vital Signs Date Vital 06/30/2018 Blood Pressure 1: 120/80 Code: 8480-6 BMI: 28.2 Code: 91270-5 Heart Rate 1: 100 bpm Height: 5'1" SpO2: 94% Weight: 149 lbs 03/03/2018 Blood Pressure 1: 122/72 Code: 8480-6 BMI: 28.2 Code: 28552-7 Heart Rate 1: 100 bpm Height: 5'1" SpO2: 94% Weight: 149 lbs 01/27/2018 Blood Pressure 1: 112/70 Code: 8480-6 BMI: 27.8 Code: 52311-5 Heart Rate 1: 94 bpm Height: 5'1" SpO2: 94% Weight: 147 lbs 10/13/2017 Blood Pressure 1: 96/72 Code: 8480-6 BMI: 27.8 Code: 63568-9 Heart Rate 1: 106 bpm Height: 5'1" SpO2: 91% Weight: 147 lbs 08/07/2017 Blood Pressure 1: 120/80 Code: 8480-6 BMI: 29.7 Code: 03533-3 Heart Rate 1: 95 bpm Height: 5'1" SpO2: 94% Weight: 157 lbs 05/27/2017 Blood Pressure 1: 144/88 Code: 8480-6 BMI: 29.3 Code: 61227-9 Heart Rate 1: 94 bpm Height: 5'1" SpO2: 96% Weight: 155 lbs 04/10/2017 Blood Pressure 1: 140/88 Code: 8480-6 Blood Pressure 1: 126/78 Code: 8480-6 BMI: 28.5 Code: 01446-2 Heart Rate 1: 94 bpm Height: 5'1" SpO2: 96% Weight: 151 lbs 03/25/2017 Blood Pressure 1: 120/74 Code: 8480-6 03/18/2017 Blood Pressure 1: 150/98 Code: 8480-6 BMI: 28.6 Code: 35262-8 Heart Rate 1: 114 bpm Height: 5'1" SpO2: 96% Weight: 151 lbs 8 oz 12/17/2016 Blood Pressure 1: 146/86 Code: 8480-6 BMI: 26.1 Code: 09394-5 Heart Rate 1: 94 bpm Height: 5'1" SpO2: 95% Temperature: 36.1 (C ) / 97.0 (F) Weight: 138 lbs 09/17/2016 Blood Pressure 1: 148/88 Code: 8480-6 BMI: 26.5 Code: 27144-4 Heart Rate 1: 86 bpm Height: 5'1" SpO2: 93% Weight: 140 lbs 8 oz 05/20/2016 Blood Pressure 1: 128/82 Code: 8480-6 BMI: 26.3 Code: 33280-9 Heart Rate 1: 99 bpm Height: 5'1" SpO2: 92% Weight: 139 lbs 12/11/2015 Blood Pressure 1: 138/84 Code: 8480-6 BMI: 28.3 Code: 68584-0 Heart Rate 1: 95 bpm Height: 5'1" SpO2: 97% Waist Measure (cm): 89 cm Weight: 150 lbs 10/06/2015 Blood Pressure 1: 128/78 Code: 8480-6 BMI: 28.0 Code: 65411-5 Heart Rate 1: 94 bpm Height: 5'1" SpO2: 96% Weight: 148 lbs 09/21/2015 Blood Pressure 1: 152/78 Code: 8480-6 Blood Pressure 1: 126/94 Code: 8480-6 BMI: 28.0 Code: 53509-1 Heart Rate 1: 104 bpm Height: 5'1" SpO2: 98% Weight: 148 lbs 07/26/2014 Blood Pressure 1: 110/68 Code: 8480-6 BMI: 28.7 Code: 44865-7 Heart Rate 1: 98 bpm Height: 5'1" Weight: 152 lbs 01/25/2014 Blood Pressure 1: 120/78 Code: 8480-6 BMI: 29.3 Code: 58041-9 Heart Rate 1: 104 bpm Height: 5'1" Weight: 155 lbs 01/10/2014 Blood Pressure 1: 138/88 Code: 8480-6 Temperature: 37.1 (C) / 98.7 (F) Weight: 156 lbs 09/23/2013 Blood Pressure 1: 128/78 Code: 8480-6 BMI: 28.9 Code: 29088-8 Heart Rate 1: 88 bpm Height: 5'1" Weight: 153 lbs 09/09/2013 Blood Pressure 1: 110/68 Code: 8480-6 BMI: 28.5 Code: 97688-5 Heart Rate 1: 90 bpm Height: 5'1" SpO2: 90% Weight: 151 lbs 06/03/2013 Blood Pressure 1: 132/82 Code: 8480-6 BMI: 28.9 Code: 61342-9 Heart Rate 1: 88 bpm Height: 5'1" Weight: 153 lbs 02/04/2013 Blood Pressure 1: 140/90 Code: 8480-6 BMI: 29.3 Code: 56265-7 Heart Rate 1: 88 bpm Height: 5'1" Weight: 155 lbs 12/31/2012 Blood Pressure 1: 102/76 Code: 8480-6 BMI: 29.6 Code: 78526-4 Heart Rate 1: 112 bpm Height: 5'1" Weight: 156 lbs 8 oz 10/01/2012 Blood Pressure 1: 116/78 Code: 8480-6 BMI: 29.0 Code: 20122-2 Height: 5'2" Weight: 156 lbs 09/03/2012 Blood Pressure 1: 132/88 Code: 8480-6 Heart Rate 1: 88 bpm Weight: 154 lbs 8 oz 06/26/2011 Blood Pressure 1: 82/58 Code: 8480-6 BMI: 27.5 Code: 77232-8 Heart Rate 1: 80 bpm Height: 5'1" [...] of the thyroid 03/18/2017 None 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 P ATIENT, LEVEL III Diagnosis: Essential (primary) hypertension[ICD10: I10] Giovanna Robbins MD, [facility] CPT-4: 32135 06/30/2018 ([id number]) 59839 EST. P ATIENT, LEVEL III Diagnosis: Essential (primary) hypertension[ICD10: I10] Disha Robbins MD, C CPT-4: 38719 03/03/2018 ([id number]) 56317 EST. 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 P ATIENT, LEVEL III Diagnosis: Other hypotension[ICD10: I95.89] Diagnosis: Ventricular tachycardia[ICD10: I47.2] Disha Robbins MD, [facility] CPT-4: 68553 10/13/2017 ([id number]) 76277 EST. P ATIENT, LEVEL III Diagnosis: Essential (primary) hypertension[ICD10: I10] Disha Robbins MD, C CPT-4: 50904 08/07/2017 ([id number]) 03206 EST. P ATIENT, LEVEL III Diagnosis: Open bite of left upper arm, initial encounter[ICD10: S41.152A] Disha Robbins MD, [facility] CPT-4: 64713 05/27/2017 ([id number]) 33134 EST. P ATIENT, LEVEL III Diagnosis: Essential (primary) hypertension[ICD10: I10] Disha Robbins MD, C CPT-4: 56727 04/10/2017 ([id number]) Miscellaneou s no charge Diagnosis: Essential (primary) hypertension[ICD10: I10] Tanna Robbins MD, [facility] CPT-4: 00366 03/25/2017 ([id number]) 04379 EST. P ATIENT, LEVEL IV Diagnosis: Essential (primary) hypertension[ICD10: I10] Diagnosis: Atrophy of thyroid (acquired)[ICD10: E03.4] Diagnosis: Mixed hyperlipidemia[ICD10: E78.2] Disha Robbins MD, [facility] CPT- 4: 80080 03/18/2017 ([id number]) 85385 EST. P ATIENT, LEVEL III Diagnosis: Cough[ICD10: R05] Diagnosis: Acute bronchitis, unspecified[ICD10: J20.9] Giovanna Robbins MD, [facility] CPT-4: 79663 12/17/2016 ([id number]) 54028 EST. P ATIENT, LEVEL IV Diagnosis: Atrophy of thyroid (acquired)[ICD10: E03.4] Diagnosis: Mixed hyperlipidemia[ICD10: E78.2] Diagnosis: Generalized anxiety disorder[ICD10: F41.1] Disha Robbins MD, [facility] CPT-4: 92315 09/17/2016 ([id number]) 68675 EST. P ATIENT, LEVEL III Diagnosis: Atrophy of thyroid (acquired)[ICD10: E03.4] Diagnosis: Generalized anxiety disorder[ICD10: F41.1] Disha Robbins MD, [facility] CPT-4: 25180 05/20/2016 93975 EST. PATIENT, LEVEL II Diagnosis: Blister (nonthermal), right great toe, initial encounter[ICD10: S90.421A] Giovanna Robbins MD, [facility] CPT-4: 10361 10/06/2015 ([id number]) 53282 EST. P ATIENT, LEVEL IV Diagnosis: Elevated blood-pressure reading, without diagnosis of hypertension[ICD10: R03.0] Diagnosis: Mixed hyperlipidemia[ICD10: E78.2] Diagnosis: Hypothyroidism, unspecified[ICD10: E03.9] Giovanna Robbins MD, [facility] CPT-4: 90925 09/21/2015 ([id number]) 51914 EST. P ATIENT, LEVEL IV Diagnosis: HYPERLIPIDEMIA[ICD9: 272.4] Diagnosis: HYPOTHYROIDISM[ICD9: 244.9] Diagnosis: Need for pneumococcal vaccine[ICD9: V03.82] Disha Robbins MD, C CPT-4: 84173 07/26/2014 ([id number]) 78582 EST. P ATIENT, LEVEL IV Diagnosis: HYPERLIPIDEMIA[ICD9: 272.4] Diagnosis: HYPOTHYROIDISM[ICD9: 244.9] Diagnosis: DEPRESSIVE DISORDER NEC[ICD9: 311] Disha Robbins MD, [facility] CPT- 4: 37082 01/25/2014 ([id number]) 55017 EST. P ATIENT, LEVEL III Diagnosis: ACUTE PHARYNGITIS[ICD9: 462] Giovanna Robbins MD, [facility] CPT- 4: 53673 01/10/2014 ([id number]) 24787 EST. P ATIENT, LEVEL III Diagnosis: GENERALIZED ANXIETY DISEASE[ICD9: 300.02] Diagnosis: Ear pain[ICD9: 388.70] Disha Robbins MD, [facility] CPT-4: 88601 09/23/2013 ([id number]) 10521 EST. P ATIENT, LEVEL IV Diagnosis: BACTERIAL PNEUMONIA[ICD9: 482.9] Diagnosis: Encounter for long-term (current) use of other medications[ICD9: V58.69] Diagnosis: HYPOTHYROIDISM[ICD9: 244.9] Diagnosis: DEPRESSIVE DISORDER NEC[ICD9: 311] Disha Robbins MD, [facility] CPT- 4: 10440 09/09/2013 ([id number]) 50462 EST. 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 P ATIENT, LEVEL IV Diagnosis: Renal insufficiency[ICD9: 593.9] Diagnosis: HYPERLIPIDEMIA[ICD9: 272.4] Diagnosis: DEPRESSIVE DISORDER NEC[ICD9: 311] Diagnosis: KIMANI (generalized anxiety disorder)[ICD9: 300.02] Disha Robbins MD, C CPT-4: 05841 10/01/2012 ([id number]) 80409 EST. P ATIENT, LEVEL IV Diagnosis: HYPERLIPIDEMIA[ICD9: 272.4] Diagnosis: DEPRESSIVE DISORDER NEC[ICD9: 311] Diagnosis: KIMANI (generalized anxiety disorder)[ICD9: 300.02] Disha Robbins MD, C CPT-4: 61004 09/03/2012 52244 EST. PATIENT, LEVEL IV Diagnosis: HYPOTHYROIDISM[ICD9: 244.9] Diagnosis: HYPERLIPIDEMIA[ICD9: 272.4] Diagnosis: ACUTE MAXILLARY SINUSITIS[ICD9: 461.0] Disha Robbins MD, [facility] CPT-4: 33992 06/26/2011 Plan of Care Planned Activity Notes C odes Status Date Appointment: Disha Robbins WPtel: [address] [place], [place] [id number] (15 min) Moderate 11/03/2018 Visit Plan: Hypertension [...] at home. 03/03/2018 Appointment: Disha Robbins [facility]Ptel: [facility] [place] (15 min) Moderate 03/03/2018 Patient Education: Patient Medication Summary Completed 03/03/2018 Appointment: D[facility] [phone] [facility] (15 min) Moderate 02/03/2018 Visit Plan: AVM - discussed with th e patient and her - we will order an MRI of the brain. Pt has been advised that since the seizure she should not be driving and she should continue with Keppra as previously prescribed. 01/27/2018 Appointment: [facility] [phone] [facility] (15 min) Moderate 01/27/2018 Patient Education: Patient Medication Summary Completed 01/27/2018 Care Plan: MRI BRAIN STEM W/O DYE Pending 01/27/2018 Visit Plan: Blood pressure low - re commended pt to increase the sodium in her diet. Tachycardia - no change in dose of toprol at this time. 10/13/2017 Appointment: [facility] [phone] [facility] (15 min) Moderate 10/13/2017 Patient Education: Patient [...] at home. 08/07/2017 Appointment: D[facility]el[facility] [phone] [facility] [place] (15 min) Moderate 08/07/2017 Patient Education: Patient Medication Summary Completed 08/07/2017 Visit Plan: Cat bite to arm - cellu litis - continue with augmentin - call if not improving. Advised pt to have animal control orange picking supervisor the stray cat that bit her. 05/27/2017 Appointment: Disha [facility]bins [facility]el[facility] [phone] [facility] [place] (15 min) Moderate 05/27/2017 Patient Education: Patient [...] at home. 04/10/2017 Appointment: [facility]el[facility] [phone] [facility] (15 min) Moderate 04/10/2017 Patient Education: Patient [...] to medications. 03/18/2017 Appointment: [facility]el[facility] [phone] [facility] (15 min) Moderate 03/18/2017 Patient Education: Patient [...] acutely worsen. 12/17/2016 Appointment: Giovanna Gilmore WPtel: [phone] [phone] (30 min) Complex 12/17/2016 Patient Education: [...] current medications. 09/17/2016 Appointment: Disha Robbins WPtel: [phone] [facility] (15 min) Moderate 09/17/2016 Patient Education: Patient [...] WPtel: [phone] [facility] (15 min) Moderate 05/20/2016 Patient Education: Patient Medication Summary Completed 05/20/2016 Care Plan: Tsh Pending 05/20/2016 Care Plan: Free T4 Pending 05/20/2016 Care Plan: SCREENINGMAMMOGRAPHYDIGITAL LOINC : 89855-6 Pending 12/12/2015 Visit Plan: Medicare Exam - [...] care surrogate. 12/11/2015 Appointment: [phone] [facility] - Annual Wellness [...] medications. 07/26/2014 Appointment: [phone] [facility] Follow up 07/26/2014 Patient Education: Patient [...] current medications. 01/25/2014 Appointment: Disha Robbins WPtel: [facility] Follow up 01/25/2014 Patient Education: Patient [...] Summary Completed 01/10/2014 Appointment: Disha Robbins WPtel: [facility]5 [facility] [place] Follow up 12/02/2013 Visit Plan: Cerumen on [...] current medications. 09/23/2013 Appointment: Disha Robbins WPtel: [facility]5 [facility] Follow up 09/23/2013 Patient Education: Patient Medication [...] current medications. 09/09/2013 Appointment: Disha Robbins WPtel: [address] [place] [address] follow up 09/09/2013 Patient Education: Patient Medication [...] not improving. 06/03/2013 Appointment: Disha Robbins WPtel: [facility] Follow up 06/03/2013 Patient Education: Patient Medication [...] clinic [facility]. 02/04/2013 Appointment: Disha Robbins WPtel: [facility] [place] Other 02/04/2013 Patient Education: Patient Medication Summary Completed 02/04/2013 Appointment: Disha Robbins WPtel: [phone] [facility] Follow up 01/28/2013 Visit Plan: Extrapyramidal movement [...] on lower dose of medications. 12/31/2012 Appointment: Itzel Disha WPtel: [phone] [facility] Follow up 12/31/2012 Patient Education: Patient Medication [...] changes. 10/01/2012 Appointment: [phone] [facility] Follow up 10/01/2012 Patient Education: Patient Medication [...] medications. 09/03/2012 Appointment: [facility]el: [phone] [facility] Follow up 09/03/2012 Patient Education: Patient [...] this time. 06/26/2011 Appointment: Disha Robbins WPtel: [address] [place] [id number] Other 06/26/2011 Patient Education: Patient Medication Summary Completed 06/26/2011 Instructions Comment . Hypothyroidism - p t with chronic [...] change in meds at this time. . Cerumen on Ear jet m - [...] improving. Advised pt to have animal control orange picking supervisor the stray cat that bit her. . [...] Patient verbalized understanding of plan. go [facility] and get a flu shot [...] movements worsen again, call clinic [facility]. . Extrapyramidal mov ement disorder - likely [...]
--- OUTSIDE RECORDS SUMMARY | 2019-11-16 08:56 | XMS REPORT | CCD ---
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 Name Role Phone PP Unavailable CCM Unavailable Summary Purpose Interface Exchange Insurance Providers Payer name Policy type / Coverage type Covered green party ID Effective Begin Date Effective End Date WPS Medicare Part B Medicare Part B [id number] 2018 Unknown [employer] Medicare Part B [id number] Unknown Family history Son Diagnosis Age At [...] ntly unemployed 06/26/[address]: 686307813 Never smoker 06/26/[address]: 303712544 Never drinks alcohol 06/26/2011 Has the patient [...] Date Stop Date Sta tus Fill Instructions lovastatin 20 mg tablet RxNorm: 290058 TAKE 1 TABLET BY MOUTH AT BEDTIME 11/10/2018 No Stop Date Active metoprolol tartrate 25 mg tablet RxNorm: 658466 TAKE 1/2 (ONE-HALF) T ABLET BY MOUTH TWICE DAILY 09/03/2018 No Stop Date Active Synthroid 75 mcg tablet RxNorm: 856354 TAKE ONE TABLET BY MOUTH ONCE DAILY 08/24/2018 No Stop Date Active olanzapine 2.5 mg ta blet RxNorm: 358446 TAKE 1 TABLET BY MOUT H ONCE DAILY 06/24/2018 No Stop Date Active fluoxetine 20 mg cap [place] RxNorm: 627652 TAKE 1 CAPSULE BY ANGELIQUE TH ONCE DAILY 05/14/2018 No Stop Date Active metoprolol tartrate 25 mg tablet RxNorm: 343072 1/2 Tablet(s) PO BID 05/07/2018 09/02/2018 Inactive olanzapine 2.5 mg ta blet RxNorm: 187172 TAKE ONE TABLET BY MO UTH ONCE DAILY 12/23/2017 06/23/2018 In active fluoxetine 20 mg cap k[place] RxNorm: 038103 TAKE ONE CAPSULE BY M OUTH ONCE DAILY 11/14/2017 05/13/2018 In active lovastatin 20 mg tablet RxNorm: 727379 Tablet(s) TAKE ONE TABLET BY MOUTH AT BE DTIME 10/24/2017 10/18/2018 Inactive KCL 20 meq RxNorm: 1 PO BID 10/13/2017 No S top Date Active niacin ER 500 mg tab let,extended release RxNorm: 314171 1 Tablet(s) PO QHS 10/13/2017 No Stop Date Active cefdinir 300 mg capsule RxNorm: 440477 1 Capsule(s) PO BID 09/30/2017 10/06/2017 Inactive cefdinir 300 mg capsule RxNorm: 827566 1 Capsule(s) PO BID 09/30/2017 09/29/2017 Inactive Zithromax Z-Yan 250 mg tablet RxNorm: 042531 1 Tablet(s) PO UD 09/30/2017 10/12/2017 Inactive z pack as directed lovastatin 20 mg tablet RxNorm: 612221 Tablet(s) TAKE ONE TABLET BY MOUTH AT BE DTIME 09/10/2017 10/23/2017 Inactive Synthroid 75 mcg tablet RxNorm: 231664 TAKE ONE TABLET BY MOUTH ONCE DAILY 08/01/2017 08/23/2018 In active olanzapine 2.5 mg ta blet RxNorm: 704228 TAKE ONE TABLET BY MO UTH ONCE DAILY 05/27/2017 11/22/2017 In active Zithromax Z-Yan 250 mg tablet RxNorm: 269332 1 Tablet(s) PO UD 04/29/2017 09/29/2017 Inactive z pack as directed fluoxetine 20 mg cap kameron RxNorm: 460120 TAKE ONE CAPSULE BY M OUTH ONCE DAILY 04/28/2017 10/24/2017 In active lovastatin 20 mg tablet RxNorm: 910799 TAKE ONE TABLET BY MOUTH AT BEDTIME 04/28/2017 09/09/2017 In active Synthroid 75 mcg tablet RxNorm: 521772 TAKE ONE TABLET BY MOUTH ONCE DAILY 04/08/2017 07/31/2017 In active losartan 50 mg tablet RxNorm: 999993 1 Tablet(s) PO daily 03/20/2017 10/08/2017 Inactive losartan 50 mg tablet RxNorm: 815131 1 Tablet(s) PO daily 03/18/2017 03/19/2017 Inactive olanzapine 2.5 mg ta blet RxNorm: 525312 TAKE ONE TABLET BY MO UTH ONCE DAILY 02/28/2017 05/26/2017 In active Kenalog 40 mg/mL k[place]ie pension for injection RxNorm: 7902179 Milliliter(s) Inj 12/20/2016 12/20/2016 In active ceftriaxone 500 mg s olution for injection RxNorm: 4889139 1 Milliliter(s) Inj 12/17/2016 12/17/2016 In active Zithromax Z-Yan 250 mg tablet RxNorm: 638607 1 Tablet(s) PO UD 12/17/2016 12/21/2016 Inactive zpack Kenalog 40 mg/mL k[place]ie pension for injection RxNorm: 3021863 1 Milliliter(s) Inj 12/17/2016 12/17/2016 In active Synthroid 75 mcg tablet RxNorm: 736867 TAKE ONE TABLET BY MOUTH ONCE DAILY 11/08/2016 04/06/2017 In active lovastatin 20 mg tablet RxNorm: 976851 TAKE ONE TABLET BY MOUTH AT BEDTIME 10/28/2016 04/25/2017 In active fluoxetine 20 mg cap k[place] RxNorm: 971874 TAKE ONE CAPSULE BY M OUTH ONCE DAILY 10/28/2016 04/25/2017 In active Synthroid 75 mcg tablet RxNorm: 290751 TAKE ONE TABLET BY MOUTH ONCE DAILY 10/08/2016 11/06/2016 In active Zithromax Z-Yan 250 mg tablet RxNorm: 188064 1 Tablet(s) PO UD 07/29/2016 09/16/2016 Inactive zpack as directed olanzapine 2.5 mg ta blet RxNorm: 19990922 TAKE ONE TABLET BY MO UTH ONCE DAILY 07/29/2016 06/23/2018 In active lovastatin 20 mg tablet RxNorm: 711646 TAKE ONE TABLET BY MOUTH AT BEDTIME 07/02/2016 10/27/2016 In active olanzapine 2.5 mg ta blet RxNorm: 19990922 TAKE ONE TABLET BY MO UTH ONCE DAILY 04/29/2016 09/16/2016 In active olanzapine 2.5 mg ta blet RxNorm: 19990922 TAKE ONE TABLET BY MO UTH ONCE DAILY 04/29/2016 04/28/2016 In active fluoxetine 20 mg cap kamer[place] RxNorm: 567696 TAKE ONE CAPSULE BY M OUTH ONCE DAILY 03/26/2016 09/21/2016 In active olanzapine 2.5 mg ta blet RxNorm: 19990922 Tablet(s) TAKE ONE TA BLET BY MOUTH ONCE DAILY 01/31/2016 03/30/2016 Inactive olanzapine 2.5 mg ta blet RxNorm: 19990922 Tablet(s) TAKE ONE TA BLET BY MOUTH ONCE DAILY 01/25/2016 01/30/2016 Inactive lovastatin 20 mg tablet RxNorm: 933613 TAKE ONE TABLET BY MOUTH AT BEDTIME 12/28/2015 06/24/2016 In active fluoxetine 20 mg cap kameron RxNorm: 213614 Capsule(s) TAKE ONE C APSULE BY MOUTH ONCE DAILY 12/28/2015 09/16/2016 Inactive olanzapine 2.5 mg ta blet RxNorm: 362144 TAKE ONE TABLET BY MO UTH ONCE DAILY 11/24/2015 01/22/2016 In active mupirocin 2 % topica l ointment RxNorm: 334584 1 Application TOP BID 10/06/2015 10/12/2015 Inactive Synthroid 75 mcg tablet RxNorm: 713344 Tablet(s) PO daily TAKE ONE TABLET BY MO UTH EVERY DAY 09/18/2015 09/11/2016 Inactive [SAVINGS FOR NON-COVERED DR HAMMOND -- BIN:[id number], PCN: ASPROD1, Group: XXXXX, ID# XXXXXXX, Questions: . THIS IS NOT INSURANCE.] Synthroid 75 mcg tablet RxNorm: 472581 Tablet(s) PO daily TAKE ONE TABLET BY MO UTH EVERY DAY 09/15/2015 09/17/2015 Inactive [SAVINGS FOR NON-COVERED DR UGS -- BIN:018733, PCN: ASPROD1, Group: XXXXX, ID# XXXXXXX, Questions: . THIS IS NOT INSURANCE.] Synthroid 75 mcg tablet RxNorm: 822660 Tablet(s) TAKE ONE TABLET BY MOUTH EVERY DAY 09/14/2015 09/14/2015 Inactive [SAVINGS FOR NON-COVERED DRUGS -- BIN:00 3585, PCN: ASPROD1, Group: XXXXX, ID# XXXXXXX, Questions: . THIS IS NOT INSURANCE.] fluoxetine 20 mg cap kameron RxNorm: 671382 TAKE ONE CAPSULE BY OUT ONCE DAILY 08/24/2015 12/21/2015 In active lovastatin 20 mg tablet RxNorm: 529938 1 Tablet(s) PO QHS TAKE ONE TABLET BY MO [facility] AT BEDTIME 05/29/2015 12/24/2015 Inactive [SAVINGS FOR NON-COVERED DR UGS -- BIN:[id number], PCN: ASPROD1, Group: XXXXX, ID# XXXXXXX, Questions: . THIS IS NOT INSURANCE.] olanzapine 2.5 mg ta blet RxNorm: 417465 TAKE ONE TABLET BY MO UTH ONCE DAILY 05/25/2015 11/20/2015 In active olanzapine 2.5 mg ta blet RxNorm: 892183 1 Tablet(s) daily PATRIZIA E ONE TABLET BY MOUTH EVERY DAY 02/27/2015 05/24/2015 Inactive [SAVINGS FOR NON-COVERED DR UGS -- BIN:750496, PCN: ASPROD1, Group: XXXXX, ID# XXXXXXX, Questions: . THIS IS NOT INSURANCE.] fluoxetine 20 mg cap kameron RxNorm: 405490 Capsule(s) TAKE ONE C APSULE BY MOUTH EVERY DAY 02/27/2015 08/23/2015 Inactive prednisone 20 mg tablet RxNorm: 946343 1 Tablet(s) PO BID 01/16/2015 01/18/2015 Inactive prednisone 20 mg tablet RxNorm: 364136 1 Tablet(s) PO BID 01/16/2015 01/15/2015 Inactive Zithromax Z-Yan 250 mg tablet RxNorm: 095796 1 Tablet(s) PO as doc tor directed 01/16/2015 07/28/2016 In active zpack as directed olanzapine 2.5 mg ta blet RxNorm: 023865 1 Tablet(s) daily PATRIZIA E ONE TABLET BY MOUTH EVERY DAY 11/24/2014 02/21/2015 Inactive [SAVINGS FOR NON-COVERED DR UGS -- BIN:527203, PCN: ASPROD1, Group: XXXXX, ID# XXXXXXX, Questions: . THIS IS NOT INSURANCE.] lovastatin 20 mg tablet RxNorm: 173091 1 Tablet(s) PO QHS TAKE ONE TABLET BY MO UT AT BEDTIME 10/26/2014 05/23/2015 Inactive [SAVINGS FOR NON-COVERED DR UGS -- BIN:631107, PCN: ASPROD1, Group: XXXXX, ID# XXXXXXX, Questions: . THIS IS NOT INSURANCE.] Synthroid 75 mcg tablet RxNorm: 108176 1 Tablet(s) PO daily TAKE ONE TABLET BY MOUTH EVERY DAY 09/19/2014 12/17/2014 Inactive Synthroid 75 mcg tablet RxNorm: 010025 Tablet(s) TAKE ONE TABLET BY MOUTH EVERY DAY 09/19/2014 09/13/2015 Inactive [SAVINGS FOR NON-COVERED DRUGS -- BIN:00 3585, PCN: ASPROD1, Group: XXXXX, ID# XXXXXXX, Questions: . THIS IS NOT INSURANCE.] fluoxetine 20 mg cap kameron RxNorm: 685628 TAKE ONE CAPSULE BY M OUTH EVERY DAY 08/04/2014 01/30/2015 In active fluoxetine 20 mg cap kamer[place] RxNorm: 115995 1 Capsule(s) PO daily TAKE ONE CAPSULE BY MOUTH EVERY DAY 08/02/2014 08/03/2014 Inactive [SAVINGS FOR UNINSURED ERNIE ENTS -- BIN:864640, PCN: ASPROD1, Group: [id number], ID# [id number], Process claim through [employer], for questions: . THIS IS NOT INSURANCE.] lovastatin 20 mg tablet RxNorm: 124525 TAKE ONE TABLET BY MOUTH AT BEDTIME 07/25/2014 10/22/2014 In active olanzapine 2.5 mg ta blet RxNorm: 640300 Tablet(s) TAKE ONE TA BLET BY MOUTH EVERY DAY 07/19/2014 07/18/2014 Inactive olanzapine 2.5 mg ta blet RxNorm: 817499 TAKE ONE TABLET BY MO UTH EVERY DAY 07/19/2014 10/16/2014 In active Synthroid 75 mcg tablet RxNorm: 826010 1 Tablet(s) PO daily TAKE ONE TABLET BY MOUTH EVERY DAY 06/20/2014 06/19/2014 Inactive Synthroid 75 mcg tablet RxNorm: 308463 TAKE ONE TABLET BY MOUTH EVERY DAY 06/20/2014 09/18/2014 In active lovastatin 20 mg tablet RxNorm: 008401 TAKE ONE TABLET BY MOUTH AT BEDTIME 04/22/2014 07/20/2014 In active olanzapine 2.5 mg ta blet RxNorm: 004471 TAKE ONE TABLET BY MO UTH EVERY DAY 04/21/2014 07/18/2014 In active Synthroid 75 mcg tablet RxNorm: 515639 TAKE ONE TABLET BY MOUTH EVERY DAY 03/22/2014 06/19/2014 In active fluoxetine 20 mg cap k[place] RxNorm: 196969 TAKE ONE CAPSULE BY M OUTH EVERY DAY 02/02/2014 07/31/2014 In active lovastatin 20 mg tablet RxNorm: 346600 TAKE ONE TABLET BY MOUTH AT BEDTIME 01/20/2014 04/19/2014 In active olanzapine 2.5 mg ta blet RxNorm: 825083 TAKE ONE TABLET BY MO UTH EVERY DAY 01/14/2014 04/13/2014 In active amoxicillin 500 mg t ablet RxNorm: 393122 1 Tablet(s) PO TID 01/10/2014 01/16/2014 Inactive Rocephin 500 mg solu tion for injection RxNorm: 419539 Inj 01/1001/10/2014 Inactive Synthroid 75 mcg tablet RxNorm: 810418 Tablet(s) PO TAKE ONE TABLET BY MOUTH FERCHO DAY 12/27/2013 03/21/2014 Inactive lovastatin 20 mg tablet RxNorm: 935033 Tablet(s) PO TAKE ONE TABLET BY MOUTH AT BEDTIME 12/20/2013 01/19/2014 Inactive olanzapine 2.5 mg ta blet RxNorm: 454720 Tablet(s) PO TAKE ONE TABLET BY MOUTH EVERY DAY 12/17/2013 01/13/2014 Inactive Synthroid 75 mcg tablet RxNorm: 085129 Tablet(s) PO TAKE ONE TABLET BY MOUTH FERCHO11/22/2013 12/26/2013 Inactive lovastatin 20 mg tablet RxNorm: 290521 Tablet(s) PO TAKE ONE TABLET BY MOUTH AT BEDTIME 11/15/2013 12/19/2013 Inactive olanzapine 2.5 mg ta blet RxNorm: 931681 Tablet(s) PO TAKE ONE TABLET BY MOUTH EVERY DAY 11/15/2013 12/16/2013 Inactive Synthroid 75 mcg tablet RxNorm: 801539 Tablet(s) PO TAKE ONE TABLET BY MOUTH FERCHO10/25/2013 11/21/2013 Inactive lovastatin 20 mg tablet RxNorm: 634032 Tablet(s) PO TAKE ONE TABLET BY MOUTH AT BEDTIME 10/18/2013 11/14/2013 Inactive Zithromax 250 mg tablet RxNorm: 745523 Tablet(s) PO 08/30/2013 07/26/2014 Inactive zpac k as directed Synthroid 75 mcg tablet RxNorm: 376987 Tablet(s) PO TAKE ONE TABLET BY MOUTH 05/24/2013 10/24/2013 Inactive lovastatin 20 mg tablet RxNorm: 966292 Tablet(s) PO TAKE ONE TABLET BY MOUTH AT BEDTIME 04/19/2013 10/17/2013 Inactive olanzapine 2.5 mg ta blet RxNorm: 428241 1 Tablet(s) PO 02/04/2013 09/01/2013 Inactive fluoxetine 20 mg cap k[place] RxNorm: 650880 Capsule(s) PO TAKE ON E CAPSULE BY MOUTH EVERY DAY 01/08/2013 02/01/2014 Inactive olanzapine 5 mg tablet RxNorm: 483054 1/2 Tablet(s) PO daily zyprexa 12/31/2012 02/03/2013 In active Synthroid 75 mcg tablet RxNorm: 602124 1 Tablet(s) PO daily 09/29/2012 03/27/2013 Inactive Vitamin D2 50,000 un it capsule RxNorm: 582901 1 Capsule(s) PO QW 09/29/2012 09/16/2016 Inactive one weekly x 8 weeks then 1000units dorcas y thereafter Synthroid 75 mcg tablet RxNorm: 381270 1 Tablet(s) PO daily 09/29/2012 09/28/2012 Inactive lovastatin 20 mg tablet RxNorm: 286719 Tablet(s) PO TAKE ONE TABLET BY MOUTH AT BEDTIME 09/21/2012 04/18/2013 Inactive fluoxetine 20 mg cap k[place] RxNorm: 299936 1 Capsule(s) PO daily TAKE ONE CAPSULE BY MOUTH EVERY DAY 09/16/2012 01/07/2013 Inactive Synthroid 50 mcg tablet RxNorm: 629716 1 Tablet(s) PO daily 09/14/2012 12/31/2012 Inactive brand name only fluoxetine 20 mg cap k[place] RxNorm: 021277 Capsule(s) PO TAKE ON E CAPSULE BY MOUTH EVERY DAY 09/07/2012 09/15/2012 Inactive Synthroid 50 mcg tablet RxNorm: 604670 1 Tablet(s) PO daily 09/07/2012 09/13/2012 Inactive brand name only niacin ER 500 mg tab let,extended release RxNorm: 981729 2 Tablet(s) PO daily 09/03/2012 10/12/2017 In active lovastatin 20 mg tablet RxNorm: 735620 1 Tablet(s) PO QHS TAKE ONE TABLET BY MO [facility] AT BEDTIME 08/26/2012 09/20/2012 Inactive Zithromax Z-Yan 250 mg tablet RxNorm: 645806 Tablet(s) PO UD 08/13/2012 12/31/2012 Inactive fluoxetine 20 mg cap k[place] RxNorm: 955987 Capsule(s) PO 05/11/2012 09/06/2012 Inactive TAKE ONE CAPSULE BY MOUTH EVERY DAY fluoxetine 20 mg cap k[place] RxNorm: 326493 1 Capsule(s) PO daily 01/06/2012 05/04/2012 Inactive Zyprexa 5 mg Tab RxNorm: 508879 Tablet(s) PO 01/06/2012 12/31/2012 Inactive TAKE ONE TABLET BY MOUTH EVERY DAY lovastatin 20 mg tablet RxNorm: 136720 Tablet(s) PO 12/24/2011 08/26/2012 Inactive TAKE ONE TABLET BY MOUTH AT BEDTIME Rocephin 500 mg Solu tion for Injection RxNorm: 8300254 Inj 01/201112/31/2012 Inactive Keppra 500 mg tablet RxNorm: 164440 1 Tablet(s) PO BID No Start Date Active omeprazole 20 mg Cap , Delayed Release RxNorm: 055388 1 Capsule(s) PO BID No Start Date Active oxycodone-acetaminop hen 5 mg-325 mg Tab RxNorm: 4950322 1 Tablet(s) PO Q4 AL N No Start Date Active acyclovir 800 mg tablet RxNorm: 416472 1 Tablet(s) PO daily No Start Date Active letrozole 2.5 mg Tab RxNorm: 500261 1 Tablet(s) PO daily No Start Date Active multivitamin Cap RxNorm: 1 Capsule(s) PO daily No Start Date Active Aspirin Low Dose 81 mg tablet,delayed release RxNorm: 175738 1 Tablet(s) PO daily No Start Date Active Calcium 600 + D(3) 6 00 mg (1,500)-200 unit Tab RxNorm: 169115 1 Tablet(s) PO daily No Start Date Active Vitamin B-12 1,000 m cg tablet RxNorm: 330361 1 Tablet(s) PO daily No Start Date Active ferrous sulfate 325 mg (65 mg iron) tablet RxNorm: 321417 1 Tablet(s) PO daily No Start Date Active KCL 20 meq RxNorm: 1 PO daily No Start Date 10/12/2017 Inactive Zyprexa 5 mg Tab RxNorm: 378579 1 Tablet(s) PO daily No Start Date 01/05/2012 Inactive Zithromax Z-Yan 250 mg tablet RxNorm: 118241 Tablet(s) PO UD No Start Date 08/12/2012 Inactive Zithromax Z-Yan 250 mg tablet RxNorm: 130943 1 Tablet(s) PO UD No Start Date 04/28/2017 Inactive z pack as directed niacin ER 500 mg tab let,extended release RxNorm: 1982610 1 Tablet(s) PO daily No Start Date 09/02/2012 Inactive Vitamin D2 50,000 un it capsule RxNorm: 1197720 1 Capsule(s) PO QW No Start Date 09/28/2012 Inactive one weekly x 8 weeks then 1000units dorcas y thereafter Synthroid 50 mcg tablet RxNorm: 716751 1 Tablet(s) PO daily No Start Date 09/06/2012 Inactive brand name only acyclovir 400 mg Tab RxNorm: 617767 1 Tablet(s) PO BID No Start Date 09/15/2012 Inactive Zithromax Z-Yan 250 mg tablet RxNorm: 191053 1 Tablet(s) PO as doc tor directed No Start Date 01/15/2015 Inactive zpack as directed metoprolol tartrate 25 mg tablet RxNorm: 393446 1/2 Tablet(s) PO BID No Start Date 05/06/2018 Inactive fluoxetine 20 mg Tab RxNorm: 628511 1 Tablet(s) PO daily No Start Date 07/26/2014 Inactive REVLIMID 10 mg Cap RxNorm: 698522 1 Capsule(s) PO daily No Start Date 12/31/2012 Inactive lovastatin 20 mg Tab RxNorm: 934229 1 Tablet(s) PO QHS No Start Date 12/23/2011 Inactive aspirin 81 mg Cap, D elayed Release RxNorm: 209442 1 Capsule(s) PO daily No Start Date 12/30/2012 Inactive olanzapine 5 mg tablet RxNorm: 907188 1 Tablet(s) PO daily zyprexa No Start Date 12/30/2012 Inactive Zithromax 250 mg tablet RxNorm: 292313 Tablet(s) PO No Start Date 08/29/2013 Inactive zpac k as directed levofloxacin 500 mg Tab RxNorm: 940957 1 Tablet(s) PO daily No Start Date 06/26/2011 Inactive levothyroxine 50 mcg Tab RxNorm: 746849 1 Tablet(s) PO daily No Start Date 12/31/2012 Inactive dexamethasone 4 mg Tab RxNorm: 682939 2 Tablet(s) PO weekly No Start Date 12/31/2012 Inactive Medication Administered Medication Codes Instruc tions Start Date Status Kenalog 40 mg/mL suspension for injection RxNorm: 5106863 Milliliter 12/20/2016 No longer Active ceftriaxone 500 mg solution for injection RxNorm: 6411012 1Milliliter 12/17/2016 N o longer Active Kenalog 40 mg/mL suspension for injection RxNorm: 3389466 1Milliliter 12/17/2016 N o longer Active Rocephin 500 mg solution for injection RxNorm: 725314 01/10/2014 No longer A ctive Immunizations Vaccine [...] Item Item Code Result Date Free T4 Gxl910 FREE T4 1.06 ng/dL 11/18/2016 Tsh Ord6 [...] 33.2 pg 10/22/2016 Cbc With Differential Ord2 [place]% 36.7 % 10/22/2016 Cbc With Differential Ord2 [...] 0.51 K/ul 10/22/2016 Cbc With Differential Ord2 [place] ABS# 0.6 K/ul 10/22/2016 Cbc With Differential Ord2 Eos ABS# 0.0 K/ul 10/22/2016 Cbc With Differential Ord2 Baso ABS# 0.0 K/ul 10/22/2016 Lipid Ord30 CHOL 99 mg/dL 10/22/2016 Lipid Ord30 HDL 38.0 mg/dl 10/22/2016 Lipid Ord30 TRIG 102 mg/dL 10/22/2016 Lipid Ord30 LDL 41 mg/dL 10/22/2016 Lipid Ord30 C/HDL 2.6 Ratio 10/22/2016 Comp Metabolic Ksf088 NA 135 mEq/L 10/22/2016 Comp Metabolic Csn920 K 4.5 mEq/L 10/22/2016 Comp Metabolic Wjr108 CL 102 mEq/L 10/22/2016 Comp Metabolic Fwr022 CO2 20.0 mEq/L 10/22/2016 Comp Metabolic Vnr487 AN ION GAP 18 10/22/2016 Comp Metabolic Ndh065 GL UCOSE 108 mg/dL 10/22/2016 Comp Metabolic Scz233 Cr eat 1.1 mg/dL 10/22/2016 Comp Metabolic Lcj687 eG FR 53 ml/min/1.73m2 10/22 Comp Metabolic Qvo311 BUN 17 mg/dL 10/22/2016 Comp Metabolic Nph308 B/ C Ratio 15.7 Ratio 10/22/2016 Comp Metabolic Byw251 CA LCIUM 8.9 mg/dL 10/22/2016 Comp Metabolic Eri110 AL K PHOS 65 U/L 10/22/2016 Comp Metabolic Lik843 T(SGOT) 14 U/L 10/22/2016 Comp Metabolic Kyx738 AL T(SGPT) 19 U/L 10/22/2016 Comp Metabolic Pnr093 BI LI T 0.8 mg/dL 10/22/2016 Comp Metabolic Ymi985 AL BUMIN 3.5 g/dL 10/22/2016 Comp Metabolic Ojh233 TP RO 7.0 g/dL 10/22/2016 Comp Metabolic Ysv349 GL OB 3.5 g/dL 10/22/2016 Comp Metabolic Vxo134 A/ G Ratio 1.0 Ratio 10/22/2016 Comp Metabolic Kwm888 Os mo 272 mOsmo 10/22/2016 Manual Differential Ord52 D-Neutr 38 % 10/22/2016 Manual Differential Ord52 D-Bands 15 % 10/22/2016 Manual Differential Ord52 D-Lymph 37 % 10/22/2016 Manual Differential Ord52 D-Eos 4 % 10/22/2016 Manual Differential Ord52 D-[place] 3 % 10/22/2016 Manual Differential Ord52 D-Aty [place] 3 % 10/22/2016 Free T4 Uot271 FREE T4 1.38 ng/dL 10/22/2016 Tsh Ord6 hTSH II 2.05 uIU/mL 10/22/2016 Free T4 Qjq699 FREE T4 0.85 ng/dL 05/20/2016 Tsh Ord6 [...] 20280123 SODIUM 138 MMOL/L 09/09/2013 CHEM 14 20280123 CREATINI NE 1.10 MG/DL 09/09/2013 CHEM 14 20280123 CALCIUM 9.0 MG/DL 09/09/2013 CHEM 14 5845433 POTASSIUM 4.8 MMOL/L 09/09/2013 CHEM 14 6460088 PROT TOT 6.7 GM/DL 09/09/2013 CHEM 14 3781999 GLUCOSE 113 MG/DL 09/09/2013 CHEM 14 8331647 BICARB 27 MMOL/L 09/09/2013 CHEM 14 3020185 ANION GAP 9 MEQ/L 09/09/2013 GFR CALC 1110625 GFR AA 60.0L ML/MIN 09/09/2013 GFR CALC 3600441 GFR NON -AA 50.0L ML/MIN 4 Review [...] veins 12/17/2016 None Full Exam - General 1995 Constitutional general appearance Overall: well developed 09/17/2016 [...] gingiva 05/20/2016 None Full Exam - General 1995 Ears/Nose/Throat lips/teeth/gingiva Overall: no masses 05/20/2016 None [...] clear 09/21/2015 None Full Exam - General 1995 Ears/Nose/Throat lips/teeth/gingiva Overall: benign gingiva 09/21/2015 None [...] affect 09/09/2013 None Full Exam - General 1995 Psychiatric mood and affect Mood: happy 09/09/2013 [...] intact 06/03/2013 None Full Exam - General 1995 Psychiatric mood and affect Overall: normal mood and affect 06/03/2013 None Full Exam - General 1995 Psychiatric mood and affect Mood: happy 06/03/2013 None Full Exam - General 1995 Constitutional general appearance Overall: well developed 02/04/2013 [...] happy 12/31/2012 None Full Exam - General 1994 [...] retractions 10/01/2012 None Full Exam - General 1995 Respiratory respiratory effort/rhythm Overall: normal rate 10/01/2012 [...] happy 09/03/2012 None Full Exam - General 1995 [...] Procedure Codes Date THER/PROPH/DIAG INJ SC/IM CPT-4: 89611 12/20/2016 TRIAMCINOLONE ACET I [place] NOS CPT-4: J3301 12/20/2016 TRIAMCINOLONE ACET I NJ NOS CPT-4: J3301 12/17/2016 ROCEPHIN, PER 250 MG CPT-4: J0696 12/17/2016 PPPS, SUBSEQ VISIT CPT- 4: G0439 12/11/2015 ADMIN PNEUMOCOCCAL V ACCINE Assigned to/Merissa Dupont CT: [id number] CPT-4: R3523Atzgwez 07/26/2014 Pneumococcal Polysac charide Vaccine, 23-Valent, Ad CPT-4: 19558 07/26/2014 ROCEPHIN, PER 250 MG CPT-4: J0696 01/10/2014 ROUTINE VENIPUNCTURE CPT-4: 54522 09/09/2013 PRESCRIP TRANSMIT A ERX SY CPT-4: G8553 02/04/2013 PRESCRIP TRANSMIT A ERX SY CPT-4: G8553 12/31/2012 THER/PROPH/DIAG INJ SC/IM CPT-4: 91773 06/26/2011 ROCEPHIN, PER 250 MG CPT-4: J0696 06/26/2011 Vital Signs Date Vital 06/30/2018 Blood Pressure 1: 120/80 Code: 8480-6 BMI: 28.2 Code: 41562-8 Heart Rate 1: 100 bpm Height: 5'1" SpO2: 94% Weight: 149 lbs 03/03/2018 Blood Pressure 1: 122/72 Code: 8480-6 BMI: 28.2 Code: 38124-3 Heart Rate 1: 100 bpm Height: 5'1" SpO2: 94% Weight: 149 lbs 01/27/2018 Blood Pressure 1: 112/70 Code: 8480-6 BMI: 27.8 Code: 23234-9 Heart Rate 1: 94 bpm Height: 5'1" SpO2: 94% Weight: 147 lbs 10/13/2017 Blood Pressure 1: 96/72 Code: 8480-6 BMI: 27.8 Code: 70823-2 Heart Rate 1: 106 bpm Height: 5'1" SpO2: 91% Weight: 147 lbs 08/07/2017 Blood Pressure 1: 120/80 Code: 8480-6 BMI: 29.7 Code: 75160-8 Heart Rate 1: 95 bpm Height: 5'1" SpO2: 94% Weight: 157 lbs 05/27/2017 Blood Pressure 1: 144/88 Code: 8480-6 BMI: 29.3 Code: 43901-3 Heart Rate 1: 94 bpm Height: 5'1" SpO2: 96% Weight: 155 lbs 04/10/2017 Blood Pressure 1: 140/88 Code: 8480-6 Blood Pressure 1: 126/78 Code: 8480-6 BMI: 28.5 Code: 45496-6 Heart Rate 1: 94 bpm Height: 5'1" SpO2: 96% Weight: 151 lbs 03/25/2017 Blood Pressure 1: 120/74 Code: 8480-6 03/18/2017 Blood Pressure 1: 150/98 Code: 8480-6 BMI: 28.6 Code: 14076-0 Heart Rate 1: 114 bpm Height: 5'1" SpO2: 96% Weight: 151 lbs 8 oz 12/17/2016 Blood Pressure 1: 146/86 Code: 8480-6 BMI: 26.1 Code: 32407-2 Heart Rate 1: 94 bpm Height: 5'1" SpO2: 95% Temperature: 36.1 (C ) / 97.0 (F) Weight: 138 lbs 09/17/2016 Blood Pressure 1: 148/88 Code: 8480-6 BMI: 26.5 Code: 90239-1 Heart Rate 1: 86 bpm Height: 5'1" SpO2: 93% Weight: 140 lbs 8 oz 05/20/2016 Blood Pressure 1: 128/82 Code: 8480-6 BMI: 26.3 Code: 15690-6 Heart Rate 1: 99 bpm Height: 5'1" SpO2: 92% Weight: 139 lbs 12/11/2015 Blood Pressure 1: 138/84 Code: 8480-6 BMI: 28.3 Code: 66508-2 Heart Rate 1: 95 bpm Height: 5'1" SpO2: 97% Waist Measure (cm): 89 cm Weight: 150 lbs 10/06/2015 Blood Pressure 1: 128/78 Code: 8480-6 BMI: 28.0 Code: 01279-7 Heart Rate 1: 94 bpm Height: 5'1" SpO2: 96% Weight: 148 lbs 09/21/2015 Blood Pressure 1: 152/78 Code: 8480-6 Blood Pressure 1: 126/94 Code: 8480-6 BMI: 28.0 Code: 60649-3 Heart Rate 1: 104 bpm Height: 5'1" SpO2: 98% Weight: 148 lbs 07/26/2014 Blood Pressure 1: 110/68 Code: 8480-6 BMI: 28.7 Code: 50848-2 Heart Rate 1: 98 bpm Height: 5'1" Weight: 152 lbs 01/25/2014 Blood Pressure 1: 120/78 Code: 8480-6 BMI: 29.3 Code: 54354-7 Heart Rate 1: 104 bpm Height: 5'1" Weight: 155 lbs 01/10/2014 Blood Pressure 1: 138/88 Code: 8480-6 Temperature: 37.1 (C) / 98.7 (F) Weight: 156 lbs 09/23/2013 Blood Pressure 1: 128/78 Code: 8480-6 BMI: 28.9 Code: 29402-7 Heart Rate 1: 88 bpm Height: 5'1" Weight: 153 lbs 09/09/2013 Blood Pressure 1: 110/68 Code: 8480-6 BMI: 28.5 Code: 68891-1 Heart Rate 1: 90 bpm Height: 5'1" SpO2: 90% Weight: 151 lbs 06/03/2013 Blood Pressure 1: 132/82 Code: 8480-6 BMI: 28.9 Code: 32390-1 Heart Rate 1: 88 bpm Height: 5'1" Weight: 153 lbs 02/04/2013 Blood Pressure 1: 140/90 Code: 8480-6 BMI: 29.3 Code: 30002-7 Heart Rate 1: 88 bpm Height: 5'1" Weight: 155 lbs 12/31/2012 Blood Pressure 1: 102/76 Code: 8480-6 BMI: 29.6 Code: 82938-3 Heart Rate 1: 112 bpm Height: 5'1" Weight: 156 lbs 8 oz 10/01/2012 Blood Pressure 1: 116/78 Code: 8480-6 BMI: 29.0 Code: 03682-0 Height: 5'2" Weight: 156 lbs 09/03/2012 Blood Pressure 1: 132/88 Code: 8480-6 Heart Rate 1: 88 bpm Weight: 154 lbs 8 oz 06/26/2011 Blood Pressure 1: 82/58 Code: 8480-6 BMI: 27.5 Code: 24557-7 Heart Rate 1: 80 bpm Height: 5'1" [...] edema 03/03/2018 None Hospital Follow Up _ [facility] er: _ 01/27/2018 None Hospital Follow Up [...] of the thyroid 03/18/2017 None hypothyroid Quality social work case manager dejah 03/18/2017 None hypothyroid Onset and Resolution [...] Exacerbating Factors diet 09/17/2016 None hypothyroid Quality social work case manager dejah 09/17/2016 None hypothyroid Location at the [...] Alleviating Factors medication 12/31/2012 None hypothyroid Quality social work case manager dejah 12/31/2012 None hyperlipidemia Onset and Resolution [...] Family History hyperlipidemia 09/03/2012 None hypothyroid Quality social work case manager dejah 06/26/2011 None cough Location in the [...] Encounters Encounter Performer Loca tion Codes Date ([id number]) 03147 EST. P ATIENT, LEVEL III Diagnosis: Essential (primary) hypertension[ICD10: I10] Giovanna Robbins MD, [facility] CPT-4: 37153 06/30/2018 ([id number]) 98457 EST. P ATIENT, LEVEL III Diagnosis: Essential (primary) hypertension[ICD10: I10] Disha Robbins MD, C CPT-4: 29566 03/03/2018 ([id number]) 71787 EST. 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 P ATIENT, LEVEL III Diagnosis: Other hypotension[ICD10: I95.89] Diagnosis: Ventricular tachycardia[ICD10: I47.2] Disha Robbins MD, [facility] CPT-4: 40811 10/13/2017 ([id number]) 20719 EST. P ATIENT, LEVEL III Diagnosis: Essential (primary) hypertension[ICD10: I10] Disha Robbins MD, [facility] CPT-4: 73038 08/07/2017 ([id number]) 85119 EST. P ATIENT, LEVEL III Diagnosis: Open bite of left upper arm, initial encounter[ICD10: S41.152A] Disha Robbins MD, [facility] CPT-4: 38857 05/27/2017 ([id number]) 62836 EST. P ATIENT, LEVEL III Diagnosis: Essential (primary) hypertension[ICD10: I10] Disha Robbins MD, C CPT-4: 18579 04/10/2017 ([id number]) Miscellaneou s no charge Diagnosis: Essential (primary) hypertension[ICD10: I10] Tanna Robbins MD, [facility] CPT-4: 44737 03/25/2017 ([id number]) 25423 EST. P ATIENT, LEVEL IV Diagnosis: Essential (primary) hypertension[ICD10: I10] Diagnosis: Atrophy of thyroid (acquired)[ICD10: E03.4] Diagnosis: Mixed hyperlipidemia[ICD10: E78.2] Disha Robbins MD, [facility] CPT- 4: 53780 03/18/2017 ([id number]) 82495 EST. P ATIENT, LEVEL III Diagnosis: Cough[ICD10: R05] Diagnosis: Acute bronchitis, unspecified[ICD10: J20.9] Giovanna Robbins MD, [facility] CPT-4: 36578 12/17/2016 ([id number]) 28133 EST. P ATIENT, LEVEL IV Diagnosis: Atrophy of thyroid (acquired)[ICD10: E03.4] Diagnosis: Mixed hyperlipidemia[ICD10: E78.2] Diagnosis: Generalized anxiety disorder[ICD10: F41.1] Disha Robbins MD, [facility] CPT-4: 75496 09/17/2016 ([id number]) 55704 EST. P ATIENT, LEVEL III Diagnosis: Atrophy of thyroid (acquired)[ICD10: E03.4] Diagnosis: Generalized anxiety disorder[ICD10: F41.1] Disha Robbins MD, [facility] CPT-4: 68708 05/20/2016 91990 EST. PATIENT, LEVEL II Diagnosis: Blister (nonthermal), right great toe, initial encounter[ICD10: S90.421A] Giovanna Robbins MD, [facility] CPT-4: 56391 10/06/2015 ([id number]) 55383 EST. P ATIENT, LEVEL IV Diagnosis: Elevated blood-pressure reading, without diagnosis of hypertension[ICD10: R03.0] Diagnosis: Mixed hyperlipidemia[ICD10: E78.2] Diagnosis: Hypothyroidism, unspecified[ICD10: E03.9] Giovanna Robbins MD, [facility] CPT-4: 56224 09/21/2015 ([id number]) 05545 EST. P ATIENT, LEVEL IV Diagnosis: HYPERLIPIDEMIA[ICD9: 272.4] Diagnosis: HYPOTHYROIDISM[ICD9: 244.9] Diagnosis: Need for pneumococcal vaccine[ICD9: V03.82] Disha Robbins MD, C CPT-4: 19130 07/26/2014 ([id number]) 91714 EST. P ATIENT, LEVEL IV Diagnosis: HYPERLIPIDEMIA[ICD9: 272.4] Diagnosis: HYPOTHYROIDISM[ICD9: 244.9] Diagnosis: DEPRESSIVE DISORDER NEC[ICD9: 311] Disha Robbins MD, [facility] CPT- 4: 34803 01/25/2014 ([id number]) 52400 EST. P ATIENT, LEVEL III Diagnosis: ACUTE PHARYNGITIS[ICD9: 462] Giovanna Robbins MD, [facility] CPT- 4: 78437 01/10/2014 ([id number]) 13495 EST. P ATIENT, LEVEL III Diagnosis: GENERALIZED ANXIETY DISEASE[ICD9: 300.02] Diagnosis: Ear pain[ICD9: 388.70] Disha Robbins MD, [facility] CPT-4: 56421 09/23/2013 ([id number]) 81997 EST. P ATIENT, LEVEL IV Diagnosis: BACTERIAL PNEUMONIA[ICD9: 482.9] Diagnosis: Encounter for long-term (current) use of other medications[ICD9: V58.69] Diagnosis: HYPOTHYROIDISM[ICD9: 244.9] Diagnosis: DEPRESSIVE DISORDER NEC[ICD9: 311] Disha Robbins MD, [facility] CPT- 4: 84133 09/09/2013 ([id number]) 39720 EST. 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 P ATIENT, LEVEL IV Diagnosis: Renal insufficiency[ICD9: 593.9] Diagnosis: HYPERLIPIDEMIA[ICD9: 272.4] Diagnosis: DEPRESSIVE DISORDER NEC[ICD9: 311] Diagnosis: KIMANI (generalized anxiety disorder)[ICD9: 300.02] Disha Robbins MD, [facility] CPT-4: 98151 10/01/2012 ([id number]) 22810 EST. P ATIENT, LEVEL IV Diagnosis: HYPERLIPIDEMIA[ICD9: 272.4] Diagnosis: DEPRESSIVE DISORDER NEC[ICD9: 311] Diagnosis: KIMANI (generalized anxiety disorder)[ICD9: 300.02] Disha Robbins MD, [facility] CPT-4: 53438 09/03/2012 88645 EST. PATIENT, LEVEL IV Diagnosis: HYPOTHYROIDISM[ICD9: 244.9] Diagnosis: HYPERLIPIDEMIA[ICD9: 272.4] Diagnosis: ACUTE MAXILLARY SINUSITIS[ICD9: 461.0] Disha Robbins MD, [facility] CPT-4: 01621 06/26/2011 Plan of Care Planned Activity Notes C odes Status Date Appointment: Disha Robbins WPtel: [facility]5 [facility]66[facility] (15 min) Moderate 11/03/2018 Visit Plan: Hypertension [...] at home. 03/03/2018 Appointment: Disha Robbins WPtel: [facility]9 [facility] (15 min) Moderate 03/03/2018 Patient Education: Patient Medication Summary Completed 03/03/2018 Appointment: Disha Robbins WPtel: [facility]2 [facility] (15 min) Moderate 02/03/2018 Visit Plan: AVM - discussed with th e patient and her - we will order an MRI of the brain. Pt has been advised that since the seizure she should not be driving and she should continue with Keppra as previously prescribed. 01/27/2018 Appointment: Disha Robbins WPtel: [facility]0 [facility] (15 min) Moderate 01/27/2018 Patient Education: Patient Medication Summary Completed 01/27/2018 Care Plan: MRI BRAIN STEM W/O DYE Pending 01/27/2018 Visit Plan: Blood pressure low - re commended pt to increase the sodium in her diet. Tachycardia - no change in dose of toprol at this time. 10/13/2017 Appointment: Disha Robbins WPtel: [facility]1 [facility] (15 min) Moderate 10/13/2017 Patient Education: Patient [...] at home. 08/07/2017 Appointment: Disha Robbins WPtel: [facility] ([facility] min) Moderate 08/07/2017 Patient Education: Patient Medication Summary Completed 08/07/2017 Visit Plan: Cat bite to arm - cellu litis - continue with augmentin - call if not improving. Advised pt to have animal control picker box operator the stray cat that bit her. 05/27/2017 Appointment: Disha Robbins WPtel: [phone] [facility] (15 min) Moderate 05/27/2017 Patient Education: Patient [...] home. 04/10/2017 Appointment: [phone] ([facility] min) Moderate 04/10/2017 Patient Education: [...] to medications. 03/18/2017 Appointment: [phone] [facility] (15 min) Moderate 03/18/2017 Patient Education: [...] acutely worsen. 12/17/2016 Appointment[phone] (30 min) Complex 12/17/2016 Patient Education: Patient [...] current medications. 09/17/2016 Appointment: [facility]el[phone] [facility] (15 min) Moderate 09/17/2016 Patient Education: Patient [...] current medications. 05/20/2016 Appointment: Disha Robbins WPtel: [facility] (15 min) Moderate 05/20/2016 Patient Education: Patient Medication Summary Completed 05/20/2016 Care Plan: Tsh Pending 05/20/2016 Care Plan: Free T4 Pending 05/20/2016 Care Plan: SCREENINGMAMMOGRAPHYDIGITAL LOINC : 86852-4 Pending 12/12/2015 Visit Plan: Medicare Exam - [...] care surrogate. 12/11/2015 Appointment: Tanna Marquez WPtel: [facility]3 [facility] [facility] - Annual Wellness Visit 12/11/2015 Patient [...] current medications. 07/26/2014 Appointment: Disha Robbins WPtel: [address] [place], [place] [address] [place] Follow up 07/26/2014 Patient Education: Patient Medication [...] medications. 01/25/2014 Appointment: [facility]el[phone] [facility] [place] Follow up 01/25/2014 Patient Education: Patient Medication [...] Completed 01/10/2014 Appointment: [facility]Ptel[facility] [phone] [facility] [place] Follow up 12/02/2013 Visit Plan: Cerumen [...] current medications. 09/23/2013 Appointment: Disha Robbins WPtel: [address] [place] [address] Follow up 09/23/2013 Patient Education: Patient Medication [...] current medications. 09/09/2013 Appointment: Disha Robbins WPtel: [address] [place] [address] follow up 09/09/2013 Patient Education: Patient Medication [...] not improving. 06/03/2013 Appointment: Disha Robbins WPtel: [address] [place], [place] [phone] Follow up 06/03/2013 Patient Education: Patient Medication [...] clinic [facility]THEL. 02/04/2013 Appointment: Disha Robbins WPtel: [phone] [facility] Other 02/04/2013 Patient Education: Patient Medication Summary Completed 02/04/2013 Appointment: Disha Robbins WPtel: [phone] [facility] Follow up 01/28/2013 Visit Plan: Extrapyramidal movement [...] of medications. 12/31/2012 Appointment: [facility]bins [facility]Ptel[phone] [facility] Follow up 12/31/2012 Patient Education: Patient Medication [...] changes. 10/01/2012 Appointment: [facility]Ptel[phone] [facility] Follow up 10/01/2012 Patient Education: Patient [...] medications. 09/03/2012 Appointment: [facility]Ptel[facility] [phone] [facility] Follow up 09/03/2012 Patient Education: Patient [...] this time. 06/26/2011 Appointment: Disha Robbins WPtel: [facility] Other 06/26/2011 Patient Education: Patient Medication Summary Completed 06/26/2011 Instructions Comment . Hyperlipidemia - pt has been counseled [...] DOPA paperwork for health care surrogate. . Cat bite to arm - cellulitis - continue with augmentin - call if not improving. Advised pt to have animal control picker box operator the stray cat that bit her. . [...] Patient verbalized understanding of plan. go to [facility] and get a flu [...]
--- OUTSIDE RECORDS SUMMARY | 2019-11-16 08:57 | XMS REPORT | CCD ---
Author Author Nikole Robbins Organization Disha Robbins MD, [facility] Address [address] [place] [address] Phone Care Team Providers Care Air Grinder Name Role Phone PP Unavailable CCM Unavailable Summary Purpose Interface Exchange Insurance Providers Payer name Policy type / Coverage type Covered democrat ID Effective Begin Date Effective End Date WPS Medicare Part B Medicare Part B [id number] 2018 Unknown [employer] Medicare Part B [id number] Unknown Family history Son Diagnosis Age At [...] ntly unemployed 06/26/[address]: 922037530 Never smoker 06/26/[address]: 137915334 Never drinks alcohol 06/26/2011 Has the patient [...] Instructions metoprolol tartrate 25 mg tablet RxNorm: 692322 TAKE 1/2 (ONE-HALF) T ABLET BY MOUTH TWICE DAILY 09/03/2018 No Stop Date Active Synthroid 75 mcg tablet RxNorm: 609846 TAKE ONE TABLET BY MOUTH ONCE DAILY 08/24/2018 No Stop Date Active olanzapine 2.5 mg ta blet RxNorm: 475341 TAKE 1 TABLET BY MOUT H ONCE DAILY 06/24/2018 No Stop Date Active fluoxetine 20 mg cap k[place]on RxNorm: 441219 TAKE 1 CAPSULE BY ANGELIQUE TH ONCE DAILY 05/14/2018 No Stop Date Active metoprolol tartrate 25 mg tablet RxNorm: 692763 1/2 Tablet(s) PO BID 05/07/2018 09/02/2018 Inactive olanzapine 2.5 mg ta blet RxNorm: 945665 TAKE ONE TABLET BY MO UTH ONCE DAILY 12/23/2017 06/23/2018 In active fluoxetine 20 mg cap kameron RxNorm: 720049 TAKE ONE CAPSULE BY M OUTH ONCE DAILY 11/14/2017 05/13/2018 In active lovastatin 20 mg tablet RxNorm: 597059 Tablet(s) TAKE ONE TABLET BY MOUTH AT BE DTIME 10/24/2017 10/18/2018 Ac tive KCL 20 meq RxNorm: 1 PO BID 10/13/2017 No S top Date Active niacin ER 500 mg tab let,extended release RxNorm: 454501 1 Tablet(s) PO QHS 10/13/2017 No Stop Date Active cefdinir 300 mg capsule RxNorm: 959161 1 Capsule(s) PO BID 09/30/2017 10/06/2017 Inactive cefdinir 300 mg capsule RxNorm: 142385 1 Capsule(s) PO BID 09/30/2017 09/29/2017 Inactive Zithromax Z-Yan 250 mg tablet RxNorm: 265277 1 Tablet(s) PO UD 09/30/2017 10/12/2017 Inactive z pack as directed lovastatin 20 mg tablet RxNorm: 625626 Tablet(s) TAKE ONE TABLET BY MOUTH AT BE DTIME 09/10/2017 10/23/2017 Inactive Synthroid 75 mcg tablet RxNorm: 289767 TAKE ONE TABLET BY MOUTH ONCE DAILY 08/01/2017 08/23/2018 In active olanzapine 2.5 mg ta blet RxNorm: 401501 TAKE ONE TABLET BY MO UTH ONCE DAILY 05/27/2017 11/22/2017 In active Zithromax Z-Yan 250 mg tablet RxNorm: 472481 1 Tablet(s) PO UD 04/29/2017 09/29/2017 Inactive z pack as directed fluoxetine 20 mg cap kameron RxNorm: 448587 TAKE ONE CAPSULE BY M OUTH ONCE DAILY 04/28/2017 10/24/2017 In active lovastatin 20 mg tablet RxNorm: 011645 TAKE ONE TABLET BY MOUTH AT BEDTIME 04/28/2017 09/09/2017 In active Synthroid 75 mcg tablet RxNorm: 421144 TAKE ONE TABLET BY MOUTH ONCE DAILY 04/08/2017 07/31/2017 In active losartan 50 mg tablet RxNorm: 387094 1 Tablet(s) PO daily 03/20/2017 10/08/2017 Inactive losartan 50 mg tablet RxNorm: 360616 1 Tablet(s) PO daily 03/18/2017 03/19/2017 Inactive olanzapine 2.5 mg ta blet RxNorm: 545172 TAKE ONE TABLET BY MO UTH ONCE DAILY 02/28/2017 05/26/2017 In active Kenalog 40 mg/mL kassie pension for injection RxNorm: 7834911 Milliliter(s) Inj 12/20/2016 12/20/2016 In active ceftriaxone 500 mg s olution for injection RxNorm: 4261057 1 Milliliter(s) Inj 12/17/2016 12/17/2016 In active Zithromax Z-Yan 250 mg tablet RxNorm: 619044 1 Tablet(s) PO UD 12/17/2016 12/21/2016 Inactive zpack Kenalog 40 mg/mL kassie pension for injection RxNorm: 9737719 1 Milliliter(s) Inj 12/17/2016 12/17/2016 In active Synthroid 75 mcg tablet RxNorm: 337036 TAKE ONE TABLET BY MOUTH ONCE DAILY 11/08/2016 04/06/2017 In active lovastatin 20 mg tablet RxNorm: 351977 TAKE ONE TABLET BY MOUTH AT BEDTIME 10/28/2016 04/25/2017 In active fluoxetine 20 mg cap kameron RxNorm: 899882 TAKE ONE CAPSULE BY M OUTH ONCE DAILY 10/28/2016 04/25/2017 In active Synthroid 75 mcg tablet RxNorm: 990776 TAKE ONE TABLET BY MOUTH ONCE DAILY 10/08/2016 11/06/2016 In active Zithromax Z-Yan 250 mg tablet RxNorm: 190497 1 Tablet(s) PO UD 07/29/2016 09/16/2016 Inactive zpack as directed olanzapine 2.5 mg ta blet RxNorm: 197194 TAKE ONE TABLET BY MO UTH ONCE DAILY 07/29/2016 06/23/2018 In active lovastatin 20 mg tablet RxNorm: 467813 TAKE ONE TABLET BY MOUTH AT BEDTIME 07/02/2016 10/27/2016 In active olanzapine 2.5 mg ta blet RxNorm: 19990922 TAKE ONE TABLET BY MO UTH ONCE DAILY 04/29/2016 09/16/2016 In active olanzapine 2.5 mg ta blet RxNorm: 410096 TAKE ONE TABLET BY MO UTH ONCE DAILY 04/29/2016 04/28/2016 In active fluoxetine 20 mg cap kameron RxNorm: 537658 TAKE ONE CAPSULE BY M OUT ONCE DAILY 03/26/2016 09/21/2016 In active olanzapine 2.5 mg ta blet RxNorm: 930232 Tablet(s) TAKE ONE TA BLET BY MOUTH ONCE DAILY 01/31/2016 03/30/2016 Inactive olanzapine 2.5 mg ta blet RxNorm: 540097 Tablet(s) TAKE ONE TA BLET BY MOUTH ONCE DAILY 01/25/2016 01/30/2016 Inactive lovastatin 20 mg tablet RxNorm: 653224 TAKE ONE TABLET BY MOUTH AT BEDTIME 12/28/2015 06/24/2016 In active fluoxetine 20 mg cap kameron RxNorm: 650935 Capsule(s) TAKE ONE C APSULE BY MOUTH ONCE DAILY 12/28/2015 09/16/2016 Inactive olanzapine 2.5 mg ta blet RxNorm: 117418 TAKE ONE TABLET BY MO UTH ONCE DAILY 11/24/2015 01/22/2016 In active mupirocin 2 % topica l ointment RxNorm: 042937 1 Application TOP BID 10/06/2015 10/12/2015 Inactive Synthroid 75 mcg tablet RxNorm: 246188 Tablet(s) PO daily TAKE ONE TABLET BY MO UTH EVERY DAY 09/18/2015 09/11/2016 Inactive [SAVINGS FOR NON-COVERED DR HAMMOND -- BIN:[id number], PCN: ASPROD1, Group: XXXXX, ID# [email or web address], Questions: . THIS IS NOT INSURANCE.] Synthroid 75 mcg tablet RxNorm: 618190 Tablet(s) PO daily TAKE ONE TABLET BY MO UTH EVERY DAY 09/15/2015 09/17/2015 Inactive [SAVINGS FOR NON-COVERED DR UGS -- BIN:600329, PCN: ASPROD1, Group: XXXXX, ID# [id number], Questions: . THIS IS NOT INSURANCE.] Synthroid 75 mcg tablet RxNorm: 766814 Tablet(s) TAKE ONE TABLET BY MOUTH EVERY DAY 09/14/2015 09/14/2015 Inactive [SAVINGS FOR NON-COVERED DRUGS -- BIN:00 3585, PCN: ASPROD1, Group: XXXXX, ID# [id number], Questions: . THIS IS NOT INSURANCE.] fluoxetine 20 mg cap kameron RxNorm: 764747 TAKE ONE CAPSULE BY M OUT ONCE DAILY 08/24/2015 12/21/2015 In active lovastatin 20 mg tablet RxNorm: 466526 1 Tablet(s) PO QHS TAKE ONE TABLET BY MO [facility] AT BEDTIME 05/29/2015 12/24/2015 Inactive [SAVINGS FOR NON-COVERED DR UGS -- BIN:[id number], PCN: ASPROD1, Group: XXXXX, ID# [id number], Questions: . THIS IS NOT INSURANCE.] olanzapine 2.5 mg ta blet RxNorm: 390978 TAKE ONE TABLET BY MO UT ONCE DAILY 05/25/2015 11/20/2015 In active olanzapine 2.5 mg ta blet RxNorm: 079372 1 Tablet(s) daily PATRIZIA E ONE TABLET BY MOUTH EVERY DAY 02/27/2015 05/24/2015 Inactive [SAVINGS FOR NON-COVERED DR UGS -- BIN:[id number], PCN: ASPROD1, Group: XXXXX, ID# [id number], Questions: . THIS IS NOT INSURANCE.] fluoxetine 20 mg cap kameron RxNorm: 001536 Capsule(s) TAKE ONE C APSULE BY MOUTH EVERY DAY 02/27/2015 08/23/2015 Inactive prednisone 20 mg tablet RxNorm: 057643 1 Tablet(s) PO BID 01/16/2015 01/18/2015 Inactive prednisone 20 mg tablet RxNorm: 102634 1 Tablet(s) PO BID 01/16/2015 01/15/2015 Inactive Zithromax Z-Yan 250 mg tablet RxNorm: 470758 1 Tablet(s) PO as doc tor directed 01/16/2015 07/28/2016 In active zpack as directed olanzapine 2.5 mg ta blet RxNorm: 582092 1 Tablet(s) daily PATRIZIA E ONE TABLET BY MOUTH EVERY DAY 11/24/2014 02/21/2015 Inactive [SAVINGS FOR NON-COVERED DR UGS -- BIN:353114, PCN: ASPROD1, Group: XXXXX, ID# [email or web address], Questions: . THIS IS NOT INSURANCE.] lovastatin 20 mg tablet RxNorm: 627099 1 Tablet(s) PO QHS TAKE ONE TABLET BY MO UT AT BEDTIME 10/26/2014 05/23/2015 Inactive [SAVINGS FOR NON-COVERED DR UGS -- BIN:[id number], PCN: ASPROD1, Group: XXXXX, ID# XXXXXXX, Questions: . THIS IS NOT INSURANCE.] Synthroid 75 mcg tablet RxNorm: 827497 1 Tablet(s) PO daily TAKE ONE TABLET BY MOUTH EVERY DAY 09/19/2014 12/17/2014 Inactive Synthroid 75 mcg tablet RxNorm: 899091 Tablet(s) TAKE ONE TABLET BY MOUTH EVERY DAY 09/19/2014 09/13/2015 Inactive [SAVINGS FOR NON-COVERED DRUGS -- BIN:00 3585, PCN: ASPROD1, Group: XXXXX, ID# [id number], Questions: . THIS IS NOT INSURANCE.] fluoxetine 20 mg cap kameron RxNorm: 746382 TAKE ONE CAPSULE BY M OUTH EVERY DAY 08/04/2014 01/30/2015 In active fluoxetine 20 mg cap kameron RxNorm: 148141 1 Capsule(s) PO daily TAKE ONE CAPSULE BY MOUTH EVERY DAY 08/02/2014 08/03/2014 Inactive [SAVINGS FOR UNINSURED ERNIE ENTS -- BIN:[id number], PCN: ASPROD1, Group: [place], ID# [id number], Process claim through [employer], for questions: . THIS IS NOT INSURANCE.] lovastatin 20 mg tablet RxNorm: 714587 TAKE ONE TABLET BY MOUTH AT BEDTIME 07/25/2014 10/22/2014 In active olanzapine 2.5 mg ta blet RxNorm: 205105 Tablet(s) TAKE ONE TA BLET BY MOUTH EVERY DAY 07/19/2014 07/18/2014 Inactive olanzapine 2.5 mg ta blet RxNorm: 941745 TAKE ONE TABLET BY MO UTH EVERY DAY 07/19/2014 10/16/2014 In active Synthroid 75 mcg tablet RxNorm: 960016 1 Tablet(s) PO daily TAKE ONE TABLET BY MOUTH EVERY DAY 06/20/2014 06/19/2014 Inactive Synthroid 75 mcg tablet RxNorm: 093787 TAKE ONE TABLET BY MOUTH EVERY DAY 06/20/2014 09/18/2014 In active lovastatin 20 mg tablet RxNorm: 444033 TAKE ONE TABLET BY MOUTH AT BEDTIME 04/22/2014 07/20/2014 In active olanzapine 2.5 mg ta blet RxNorm: 672623 TAKE ONE TABLET BY MO UTH EVERY DAY 04/21/2014 07/18/2014 In active Synthroid 75 mcg tablet RxNorm: 216143 TAKE ONE TABLET BY MOUTH EVERY DAY 03/22/2014 06/19/2014 In active fluoxetine 20 mg cap kameron RxNorm: 526839 TAKE ONE CAPSULE BY M OUTH EVERY DAY 02/02/2014 07/31/2014 In active lovastatin 20 mg tablet RxNorm: 802800 TAKE ONE TABLET BY MOUTH AT BEDTIME 01/20/2014 04/19/2014 In active olanzapine 2.5 mg ta blet RxNorm: 129767 TAKE ONE TABLET BY MO UTH EVERY DAY 01/14/2014 04/13/2014 In active amoxicillin 500 mg t ablet RxNorm: 611178 1 Tablet(s) PO TID 01/10/2014 01/16/2014 Inactive Rocephin 500 mg solu tion for injection RxNorm: 789129 Inj 01/1001/10/2014 Inactive Synthroid 75 mcg tablet RxNorm: 508049 Tablet(s) PO TAKE ONE TABLET BY MOUTH EV FERCHO DAY 12/27/2013 03/21/2014 Inactive lovastatin 20 mg tablet RxNorm: 869669 Tablet(s) PO TAKE ONE TABLET BY MOUTH AT BEDTIME 12/20/2013 01/19/2014 Inactive olanzapine 2.5 mg ta blet RxNorm: 261635 Tablet(s) PO TAKE ONE TABLET BY MOUTH EVERY DAY 12/17/2013 01/13/2014 Inactive Synthroid 75 mcg tablet RxNorm: 453072 Tablet(s) PO TAKE ONE TABLET BY MOUTH EV FERCHO DAY 11/22/2013 12/26/2013 Inactive lovastatin 20 mg tablet RxNorm: 791459 Tablet(s) PO TAKE ONE TABLET BY MOUTH AT BEDTIME 11/15/2013 12/19/2013 Inactive olanzapine 2.5 mg ta blet RxNorm: 662492 Tablet(s) PO TAKE ONE TABLET BY MOUTH EVERY DAY 11/15/2013 12/16/2013 Inactive Synthroid 75 mcg tablet RxNorm: 119288 Tablet(s) PO TAKE ONE TABLET BY MOUTH FERCHO10/25/2013 11/21/2013 Inactive lovastatin 20 mg tablet RxNorm: 126488 Tablet(s) PO TAKE ONE TABLET BY MOUTH AT BEDTIME 10/18/2013 11/14/2013 Inactive Zithromax 250 mg tablet RxNorm: 978956 Tablet(s) PO 08/30/2013 07/26/2014 Inactive zpac k as directed Synthroid 75 mcg tablet RxNorm: 332195 Tablet(s) PO TAKE ONE TABLET BY MOUTH FERCHO05/24/2013 10/24/2013 Inactive lovastatin 20 mg tablet RxNorm: 615416 Tablet(s) PO TAKE ONE TABLET BY MOUTH AT BEDTIME 04/19/2013 10/17/2013 Inactive olanzapine 2.5 mg ta blet RxNorm: 783057 1 Tablet(s) PO 02/04/2013 09/01/2013 Inactive fluoxetine 20 mg cap kameron RxNorm: 612151 Capsule(s) PO TAKE ON E CAPSULE BY MOUTH EVERY DAY 01/08/2013 02/01/2014 Inactive olanzapine 5 mg tablet RxNorm: 467925 1/2 Tablet(s) PO daily zyprexa 12/31/2012 02/03/2013 In active Synthroid 75 mcg tablet RxNorm: 717345 1 Tablet(s) PO daily 09/29/2012 03/27/2013 Inactive Vitamin D2 50,000 un it capsule RxNorm: 841578 1 Capsule(s) PO QW 09/29/2012 09/16/2016 Inactive one weekly x 8 weeks then 1000units dorcas y thereafter Synthroid 75 mcg tablet RxNorm: 976735 1 Tablet(s) PO daily 09/29/2012 09/28/2012 Inactive lovastatin 20 mg tablet RxNorm: 800112 Tablet(s) PO TAKE ONE TABLET BY MOUTH AT BEDTIME 09/21/2012 04/18/2013 Inactive fluoxetine 20 mg cap kameron RxNorm: 398310 1 Capsule(s) PO daily TAKE ONE CAPSULE BY MOUTH EVERY DAY 09/16/2012 01/07/2013 Inactive Synthroid 50 mcg tablet RxNorm: 277982 1 Tablet(s) PO daily 09/14/2012 12/31/2012 Inactive brand name only fluoxetine 20 mg cap kameron RxNorm: 142875 Capsule(s) PO TAKE ON E CAPSULE BY MOUTH EVERY DAY 09/07/2012 09/15/2012 Inactive Synthroid 50 mcg tablet RxNorm: 668971 1 Tablet(s) PO daily 09/07/2012 09/13/2012 Inactive brand name only niacin ER 500 mg tab let,extended release RxNorm: 785983 2 Tablet(s) PO daily 09/03/2012 10/12/2017 In active lovastatin 20 mg tablet RxNorm: 187142 1 Tablet(s) PO QHS TAKE ONE TABLET BY MO UTH AT BEDTIME 08/26/2012 09/20/2012 Inactive Zithromax Z-Yan 250 mg tablet RxNorm: 079025 Tablet(s) PO UD 08/13/2012 12/31/2012 Inactive fluoxetine 20 mg cap kameron RxNorm: 896699 Capsule(s) PO 05/11/2012 09/06/2012 Inactive TAKE ONE CAPSULE BY MOUTH EVERY DAY fluoxetine 20 mg cap kameron RxNorm: 104371 1 Capsule(s) PO daily 01/06/2012 05/04/2012 Inactive Zyprexa 5 mg Tab RxNorm: 728743 Tablet(s) PO 01/06/2012 12/31/2012 Inactive TAKE ONE TABLET BY MOUTH EVERY DAY lovastatin 20 mg tablet RxNorm: 507883 Tablet(s) PO 12/24/2011 08/26/2012 Inactive TAKE ONE TABLET BY MOUTH AT BEDTIME Rocephin 500 mg Solu tion for Injection RxNorm: 394660 Inj 06/2612/31/2012 Inactive Keppra 500 mg tablet RxNorm: 214524 1 Tablet(s) PO BID No Start Date Active omeprazole 20 mg Cap , Delayed Release RxNorm: 320820 1 Capsule(s) PO BID No Start Date Active oxycodone-acetaminop hen 5 mg-325 mg Tab RxNorm: 7475118 1 Tablet(s) PO Q4 SD N No Start Date Active acyclovir 800 mg tablet RxNorm: 433168 1 Tablet(s) PO daily No Start Date Active letrozole 2.5 mg Tab RxNorm: 344834 1 Tablet(s) PO daily No Start Date Active multivitamin Cap RxNorm: 1 Capsule(s) PO daily No Start Date Active Aspirin Low Dose 81 mg tablet,delayed release RxNorm: 724457 1 Tablet(s) PO daily No Start Date Active Calcium 600 + D(3) 6 00 mg (1,500)-200 unit Tab RxNorm: 883307 1 Tablet(s) PO daily No Start Date Active Vitamin B-12 1,000 m cg tablet RxNorm: 556597 1 Tablet(s) PO daily No Start Date Active ferrous sulfate 325 mg (65 mg iron) tablet RxNorm: 674755 1 Tablet(s) PO daily No Start Date Active KCL 20 meq RxNorm: 1 PO daily No Start Date 10/12/2017 Inactive Zyprexa 5 mg Tab RxNorm: 311383 1 Tablet(s) PO daily No Start Date 01/05/2012 Inactive Zithromax Z-Yan 250 mg tablet RxNorm: 389630 Tablet(s) PO UD No Start Date 08/12/2012 Inactive Zithromax Z-Yan 250 mg tablet RxNorm: 807795 1 Tablet(s) PO UD No Start Date 04/28/2017 Inactive z pack as directed niacin ER 500 mg tab let,extended release RxNorm: 383790 1 Tablet(s) PO daily No Start Date 09/02/2012 Inactive Vitamin D2 50,000 un it capsule RxNorm: 563405 1 Capsule(s) PO QW No Start Date 09/28/2012 Inactive one weekly x 8 weeks then 1000units dorcas y thereafter Synthroid 50 mcg tablet RxNorm: 785043 1 Tablet(s) PO daily No Start Date 09/06/2012 Inactive brand name only acyclovir 400 mg Tab RxNorm: 231580 1 Tablet(s) PO BID No Start Date 09/15/2012 Inactive Zithromax Z-Yan 250 mg tablet RxNorm: 688062 1 Tablet(s) PO as doc tor directed No Start Date 01/15/2015 Inactive zpack as directed metoprolol tartrate 25 mg tablet RxNorm: 000917 1/2 Tablet(s) PO BID No Start Date 05/06/2018 Inactive fluoxetine 20 mg Tab RxNorm: 230522 1 Tablet(s) PO daily No Start Date 07/26/2014 Inactive REVLIMID 10 mg Cap RxNorm: 643122 1 Capsule(s) PO daily No Start Date 12/31/2012 Inactive lovastatin 20 mg Tab RxNorm: 783209 1 Tablet(s) PO QHS No Start Date 12/23/2011 Inactive aspirin 81 mg Cap, D elayed Release RxNorm: 169894 1 Capsule(s) PO daily No Start Date 12/30/2012 Inactive olanzapine 5 mg tablet RxNorm: 112021 1 Tablet(s) PO daily zyprexa No Start Date 12/30/2012 Inactive Zithromax 250 mg tablet RxNorm: 559554 Tablet(s) PO No Start Date 08/29/2013 Inactive zpac k as directed levofloxacin 500 mg Tab RxNorm: 182131 1 Tablet(s) PO daily No Start Date 06/26/2011 Inactive levothyroxine 50 mcg Tab RxNorm: 917059 1 Tablet(s) PO daily No Start Date 12/31/2012 Inactive dexamethasone 4 mg Tab RxNorm: 305017 2 Tablet(s) PO weekly No Start Date 12/31/2012 Inactive Medication Administered Medication Codes Instruc tions Start Date Status Kenalog 40 mg/mL suspension for injection RxNorm: 5841857 Milliliter 12/20/2016 No longer Active ceftriaxone 500 mg solution for injection RxNorm: 4904542 1Milliliter 12/17/2016 N o longer Active Kenalog 40 mg/mL suspension for injection RxNorm: 7606496 1Milliliter 12/17/2016 N o longer Active Rocephin 500 mg solution for injection RxNorm: 295498 01/10/2014 No longer A ctive Immunizations Vaccine Codes Date Status Influenza CVX: 141 05/26 completed Pneumococcal (Adult) CVX: 33 07/26/2014 completed Assessments Condition Codes Effectiv e Dates Essential (primary) hypertension ICD -10: I10 ICD-9: 401.1 06/30/2018 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 2 ICD-9: 427.1 10/13/2017 Other hypotension ICD-10: I95.89 ICD-9: 458.8 10/13/2017 Open bite of left upper arm, initial encounter ICD-10: S41.152A ICD-9: 880.03 05/27/2017 Atrophy of thyroid (acquired) ICD-10 : E03.4 ICD-9: 244.8 03/18/2017 Mixed hyperlipidemia ICD-10: E78.2 ICD-9: 272.2 03/18/2017 Rash and other nonspecific skin eruption [...] of hypertension ICD-10: R03.0 ICD-9: 796.2 09/21/2015 Need for pneumococcal vaccine ICD-9: V03.8 2 07/26/2014 HYPERLIPIDEMIA ICD-9: 272.4 07/26/2014 HYPOTHYROIDISM ICD-9: 244.9 07/26/2014 DEPRESSIVE DISORDER NEC ICD-9: 311 01/25/2014 ACUTE PHARYNGITIS ICD-9: 462 01/10/2014 Ear pain ICD-9: 388.70 0 09/23/2013 GENERALIZED ANXIETY DISEASE ICD-9: 300.02 09/23/2013 BACTERIAL PNEUMONIA ICD-9: 482.9 09/09/2013 Encounter for long-term (current) use of other medicat ions ICD-9: V58.69 09/09/2013 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 06/03/2013 ESOPHAGEAL [...] Item Item Code Result Date Free T4 Xkq327 FREE T4 1.06 ng/dL 11/18/2016 Tsh Ord6 hTSH II 2.23 uIU/mL 11/18/2016 Tsh Ord6 hTSH II 2.05 uIU/mL 10/22/2016 Free T4 Ozo752 FREE T4 1.38 ng/dL 10/22/2016 Manual Differential Ord52 D-Neutr 38 % 10/22/2016 Manual Differential Ord52 D-Bands 15 % 10/22/2016 Manual Differential Ord52 D-Lymph 37 % 10/22/2016 Manual Differential Ord52 D-Eos 4 % 10/22/2016 Manual Differential Ord52 D-[place] 3 % 10/22/2016 Manual Differential Ord52 D-Aty Lymp 3 % 10/22/2016 Comp Metabolic Meo381 NA 135 mEq/L 10/22/2016 Comp Metabolic Soc667 K 4.5 mEq/L 10/22/2016 Comp Metabolic Ess216 CL 102 mEq/L 10/22/2016 Comp Metabolic Npb515 CO2 20.0 mEq/L 10/22/2016 Comp Metabolic Wfk496 AN ION GAP 18 10/22/2016 Comp Metabolic Tqd809 GL UCOSE 108 mg/dL 10/22/2016 Comp Metabolic Dxe830 Cr eat 1.1 mg/dL 10/22/2016 Comp Metabolic Nel411 eG FR 53 ml/min/1.73m2 10/22 Comp Metabolic Lvj015 BUN 17 mg/dL 10/22/2016 Comp Metabolic Rqp823 B/ C Ratio 15.7 Ratio 10/22/2016 Comp Metabolic Rep878 CA LCIUM 8.9 mg/dL 10/22/2016 Comp Metabolic Zuo903 AL K PHOS 65 U/L 10/22/2016 Comp Metabolic Cql759 T(SGOT) 14 U/L 10/22/2016 Comp Metabolic Jaz565 AL T(SGPT) 19 U/L 10/22/2016 Comp Metabolic Xpw478 BI LI T 0.8 mg/dL 10/22/2016 Comp Metabolic Vzw836 AL BUMIN 3.5 g/dL 10/22/2016 Comp Metabolic Xtm118 TP RO 7.0 g/dL 10/22/2016 Comp Metabolic Fjo873 GL OB 3.5 g/dL 10/22/2016 Comp Metabolic Zkx369 A/ G Ratio 1.0 Ratio 10/22/2016 Comp Metabolic Itn185 Os mo 272 mOsmo 10/22/2016 Lipid Ord30 CHOL 99 mg/dL 10/22/2016 Lipid Ord30 HDL 38.0 mg/dl 10/22/2016 Lipid Ord30 TRIG 102 mg/dL 10/22/2016 Lipid Ord30 LDL 41 mg/dL 10/22/2016 Lipid Ord30 C/HDL 2.6 Ratio 10/22/2016 Cbc With Differential Ord2 WBC 1.66 K/ul 10/22/2016 Cbc With Differential Ord2 RBC 3.98 M/ul 10/22/2016 Cbc With Differential Ord2 HGB 13.2 g/dl 10/22/2016 Cbc With Differential Ord2 Neut% 30.2 % 10/22/2016 Cbc With Differential Ord2 HCT 38.7 % 10/22/2016 Cbc With Differential Ord2 Lymph% 30.7 % 10/22/2016 Cbc With Differential Ord2 MCV 97.2 fl 10/22/2016 Cbc With Differential Ord2 MCH 33.2 pg 10/22/2016 Cbc With Differential Ord2 [place]% 36.7 % 10/22/2016 Cbc With Differential Ord2 [...] 0.51 K/ul 10/22/2016 Cbc With Differential Ord2 [place] ABS# 0.6 K/ul 10/22/2016 Cbc With Differential Ord2 Eos ABS# 0.0 K/ul 10/22/2016 Cbc With Differential Ord2 Baso ABS# 0.0 K/ul 10/22/2016 Free T4 Zxm992 FREE T4 0.85 ng/dL 05/20/2016 Tsh Ord6 hTSH II 0.63 uIU/mL 05/20/2016 GFR CALC 6495788 GFR AA 60.0L ML/MIN 09/09/2013 GFR CALC 4440409 GFR NON -AA 50.0L ML/MIN 4 CHEM 14 [id number] AST 16 U/L 09/09/2013 [...] CREATINI NE 1.10 MG/DL 09/09/2013 CHEM 14 5412499 CALCIUM 9.0 MG/DL 09/09/2013 CHEM 14 6865472 POTASSIUM 4.8 MMOL/L 09/09/2013 CHEM 14 0893209 PROT TOT 6.7 GM/DL 09/09/2013 CHEM 14 2817663 GLUCOSE 113 MG/DL 09/09/2013 CHEM 14 6071822 BICARB 27 MMOL/L 09/09/2013 CHEM 14 9787361 ANION GAP 9 MEQ/L 09/09/2013 Review of Systems System Result Effective Dates [...] exam 09/09/2013 None Full Exam - General 1995 Constitutional general appearance Overall: well nourished 06/03/2013 None Full Exam - General 1995 Constitutional general appearance Overall: well developed 06/03/2013 None Full Exam - General 1994 Constitutional general appearance Overall: in no acute distress 06/03/2013 None Full Exam - General 1994 Eyes pupils and irises Overall: pupils equal, round, reactive to light and accomodation 06/03/2013 None Full Exam - General 1995 Eyes conjunctiva/eyelids Overall: conjunctiva clear 06/03/2013 None [...] masses 10/01/2012 None Full Exam - General 1995 Respiratory auscultation Overall: breath sounds clear bilaterally 10/01/2012 None Full Exam - General 1995 Respiratory respiratory effort/rhythm Overall: no retractions 10/01/2012 None Full Exam - General 1994 Respiratory respiratory effort/rhythm Overall: normal rate 10/01/2012 None Full Exam - General 1995 Cardiovascular extremities Overall: no clubbing 10/01/2012 None Full Exam - General 1995 Cardiovascular auscultation of heart Overall: regular rate 10/01/2012 None Full Exam - General 1995 Cardiovascular auscultation of heart Overall: normal heart sounds 10/01/2012 None Full Exam - General 1994 Cardiovascular auscultation of heart Overall: no murmurs 10/01/2012 None Full Exam - General 1994 Abdomen abdominal exam Overall: no tenderness 10/01/2012 None Full Exam - General 1994 Abdomen abdominal exam Overall: normal bowel sounds 10/01/2012 None Full Exam - General 1995 Constitutional general appearance Overall: well developed 10/01/2012 None Full Exam - General 1994 Constitutional general appearance Overall: in no acute distress 10/01/2012 None Full Exam - General 1995 Constitutional general appearance Overall: well nourished 10/01/2012 [...] affect 10/01/2012 None Full Exam - General 1994 Psychiatric mood and affect Mood: happy 10/01/2012 [...] Procedure Codes Date THER/PROPH/DIAG INJ SC/IM CPT-4: 61563 12/20/2016 TRIAMCINOLONE ACET I [place] NOS CPT-4: J3301 12/20/2016 TRIAMCINOLONE ACET I [place] NOS CPT-4: J3301 12/17/2016 ROCEPHIN, PER 250 MG CPT-4: J0696 12/17/2016 PPPS, SUBSEQ VISIT CPT- 4: G0439 12/11/2015 ADMIN PNEUMOCOCCAL V ACCINE Assigned to/Merissa Dupont CT: [id number] CPT-4: Z8920Prfaptm 07/26/2014 Pneumococcal Polysac charide Vaccine, 23-Valent, Ad CPT-4: 25405 07/26/2014 ROCEPHIN, PER 250 MG CPT-4: J0696 01/10/2014 ROUTINE VENIPUNCTURE CPT-4: 32530 09/09/2013 PRESCRIP TRANSMIT A ERX SY CPT-4: G8553 02/04/2013 PRESCRIP TRANSMIT A ERX SY CPT-4: G8553 12/31/2012 THER/PROPH/DIAG INJ SC/IM CPT-4: 73382 06/26/2011 ROCEPHIN, PER 250 MG CPT-4: J0696 06/26/2011 Vital Signs Date Vital 06/30/2018 Blood Pressure 1: 120/80 Code: 8480-6 BMI: 28.2 Code: 31767-8 Heart Rate 1: 100 bpm Height: 5'1" SpO2: 94% Weight: 149 lbs 03/03/2018 Blood Pressure 1: 122/72 Code: 8480-6 BMI: 28.2 Code: 70628-1 Heart Rate 1: 100 bpm Height: 5'1" SpO2: 94% Weight: 149 lbs 01/27/2018 Blood Pressure 1: 112/70 Code: 8480-6 BMI: 27.8 Code: 12839-0 Heart Rate 1: 94 bpm Height: 5'1" SpO2: 94% Weight: 147 lbs 10/13/2017 Blood Pressure 1: 96/72 Code: 8480-6 BMI: 27.8 Code: 50942-1 Heart Rate 1: 106 bpm Height: 5'1" SpO2: 91% Weight: 147 lbs 08/07/2017 Blood Pressure 1: 120/80 Code: 8480-6 BMI: 29.7 Code: 07636-9 Heart Rate 1: 95 bpm Height: 5'1" SpO2: 94% Weight: 157 lbs 05/27/2017 Blood Pressure 1: 144/88 Code: 8480-6 BMI: 29.3 Code: 61736-3 Heart Rate 1: 94 bpm Height: 5'1" SpO2: 96% Weight: 155 lbs 04/10/2017 Blood Pressure 1: 126/78 Code: 8480-6 Blood Pressure 1: 140/88 Code: 8480-6 BMI: 28.5 Code: 29682-5 Heart Rate 1: 94 bpm Height: 5'1" SpO2: 96% Weight: 151 lbs 03/25/2017 Blood Pressure 1: 120/74 Code: 8480-6 03/18/2017 Blood Pressure 1: 150/98 Code: 8480-6 BMI: 28.6 Code: 86540-0 Heart Rate 1: 114 bpm Height: 5'1" SpO2: 96% Weight: 151 lbs 8 oz 12/17/2016 Blood Pressure 1: 146/86 Code: 8480-6 BMI: 26.1 Code: 40417-7 Heart Rate 1: 94 bpm Height: 5'1" SpO2: 95% Temperature: 36.1 (C ) / 97.0 (F) Weight: 138 lbs 09/17/2016 Blood Pressure 1: 148/88 Code: 8480-6 BMI: 26.5 Code: 98575-3 Heart Rate 1: 86 bpm Height: 5'1" SpO2: 93% Weight: 140 lbs 8 oz 05/20/2016 Blood Pressure 1: 128/82 Code: 8480-6 BMI: 26.3 Code: 87005-6 Heart Rate 1: 99 bpm Height: 5'1" SpO2: 92% Weight: 139 lbs 12/11/2015 Blood Pressure 1: 138/84 Code: 8480-6 BMI: 28.3 Code: 94762-8 Heart Rate 1: 95 bpm Height: 5'1" SpO2: 97% Waist Measure (cm): 89 cm Weight: 150 lbs 10/06/2015 Blood Pressure 1: 128/78 Code: 8480-6 BMI: 28.0 Code: 53350-3 Heart Rate 1: 94 bpm Height: 5'1" SpO2: 96% Weight: 148 lbs 09/21/2015 Blood Pressure 1: 152/78 Code: 8480-6 Blood Pressure 1: 126/94 Code: 8480-6 BMI: 28.0 Code: 60087-6 Heart Rate 1: 104 bpm Height: 5'1" SpO2: 98% Weight: 148 lbs 07/26/2014 Blood Pressure 1: 110/68 Code: 8480-6 BMI: 28.7 Code: 01308-1 Heart Rate 1: 98 bpm Height: 5'1" Weight: 152 lbs 01/25/2014 Blood Pressure 1: 120/78 Code: 8480-6 BMI: 29.3 Code: 14796-6 Heart Rate 1: 104 bpm Height: 5'1" Weight: 155 lbs 01/10/2014 Blood Pressure 1: 138/88 Code: 8480-6 Temperature: 37.1 (C) / 98.7 (F) Weight: 156 lbs 09/23/2013 Blood Pressure 1: 128/78 Code: 8480-6 BMI: 28.9 Code: 68065-0 Heart Rate 1: 88 bpm Height: 5'1" Weight: 153 lbs 09/09/2013 Blood Pressure 1: 110/68 Code: 8480-6 BMI: 28.5 Code: 10148-0 Heart Rate 1: 90 bpm Height: 5'1" SpO2: 90% Weight: 151 lbs 06/03/2013 Blood Pressure 1: 132/82 Code: 8480-6 BMI: 28.9 Code: 94224-9 Heart Rate 1: 88 bpm Height: 5'1" Weight: 153 lbs 02/04/2013 Blood Pressure 1: 140/90 Code: 8480-6 BMI: 29.3 Code: 94303-7 Heart Rate 1: 88 bpm Height: 5'1" Weight: 155 lbs 12/31/2012 Blood Pressure 1: 102/76 Code: 8480-6 BMI: 29.6 Code: 80650-1 Heart Rate 1: 112 bpm Height: 5'1" Weight: 156 lbs 8 oz 10/01/2012 Blood Pressure 1: 116/78 Code: 8480-6 BMI: 29.0 Code: 06335-6 Height: 5'2" Weight: 156 lbs 09/03/2012 Blood Pressure 1: 132/88 Code: 8480-6 Heart Rate 1: 88 bpm Weight: 154 lbs 8 oz 06/26/2011 Blood Pressure 1: 82/58 Code: 8480-6 BMI: 27.5 Code: 83017-3 Heart Rate 1: 80 bpm Height: 5'1" [...] of the thyroid 03/18/2017 None hypothyroid 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 P ATIENT, LEVEL III Diagnosis: Essential (primary) hypertension[ICD10: I10] [facility] CPT-4: 51046 06/30/2018 ([id number]) 96323 EST. P ATIENT, LEVEL III Diagnosis: Essential (primary) hypertension[ICD10: I10] Disha Robbins MD, C CPT-4: 96199 03/03/2018 ([id number]) 84925 EST. 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 CPT-4: 57555 01/27/2018 ([id number]) 44796 EST. P ATIENT, LEVEL III Diagnosis: Other hypotension[ICD10: I95.89] Diagnosis: Ventricular tachycardia[ICD10: I47.2] Disha Robbins MD, [facility] CPT-4: 81320 10/13/2017 ([id number]) 14825 EST. P ATIENT, LEVEL III Diagnosis: Essential (primary) hypertension[ICD10: I10] Dsiha Robbins MD, [facility] CPT-4: 14125 08/07/2017 ([id number]) 99239 EST. P ATIENT, LEVEL III Diagnosis: Open bite of left upper arm, initial encounter[ICD10: S41.152A] Disha Robbins MD, [facility] CPT-4: 42575 05/27/2017 ([id number]) 22979 EST. P ATIENT, LEVEL III Diagnosis: Essential (primary) hypertension[ICD10: I10] Disha Robbins MD, [facility] CPT-4: 70658 04/10/2017 ([id number]) Miscellaneou s no charge Diagnosis: Essential (primary) hypertension[ICD10: I10] Tanna Robbins MD, [facility] CPT-4: 26063 03/25/2017 ([id number]) 92744 EST. P ATIENT, LEVEL IV Diagnosis: Essential (primary) hypertension[ICD10: I10] Diagnosis: Atrophy of thyroid (acquired)[ICD10: E03.4] Diagnosis: Mixed hyperlipidemia[ICD10: E78.2] Disha Robbins MD, [facility] CPT- 4: 15570 03/18/2017 ([id number]) 42985 EST. P ATIENT, LEVEL III Diagnosis: Cough[ICD10: R05] Diagnosis: Acute bronchitis, unspecified[ICD10: J20.9] Giovanna Robbins MD, [facility] CPT-4: 52509 12/17/2016 ([id number]) 03035 EST. P ATIENT, LEVEL IV Diagnosis: Atrophy of thyroid (acquired)[ICD10: E03.4] Diagnosis: Mixed hyperlipidemia[ICD10: E78.2] Diagnosis: Generalized anxiety disorder[ICD10: F41.1] Disha Robbins MD, [facility] CPT-4: 04309 09/17/2016 ([id number]) 13150 EST. P ATIENT, LEVEL III Diagnosis: Atrophy of thyroid (acquired)[ICD10: E03.4] Diagnosis: Generalized anxiety disorder[ICD10: F41.1] Disha Robbins MD, [facility] CPT-4: 97711 05/20/2016 04427 EST. PATIENT, LEVEL II Diagnosis: Blister (nonthermal), right great toe, initial encounter[ICD10: S90.421A] Giovanna Robbins MD, [facility] CPT-4: 36012 10/06/2015 ([id number]) 85518 EST. P ATIENT, LEVEL IV Diagnosis: Elevated blood-pressure reading, without diagnosis of hypertension[ICD10: R03.0] Diagnosis: Mixed hyperlipidemia[ICD10: E78.2] Diagnosis: Hypothyroidism, unspecified[ICD10: E03.9] Giovanna Robbins MD, [facility] CPT-4: 44393 09/21/2015 ([id number]) 53272 EST. P ATIENT, LEVEL IV Diagnosis: HYPERLIPIDEMIA[ICD9: 272.4] Diagnosis: HYPOTHYROIDISM[ICD9: 244.9] Diagnosis: Need for pneumococcal vaccine[ICD9: V03.82] Disha Robbins MD, C CPT-4: 71791 07/26/2014 ([id number]) 44347 EST. P ATIENT, LEVEL IV Diagnosis: HYPERLIPIDEMIA[ICD9: 272.4] Diagnosis: HYPOTHYROIDISM[ICD9: 244.9] Diagnosis: DEPRESSIVE DISORDER NEC[ICD9: 311] Disha Robbins MD, [facility] CPT- 4: 17161 01/25/2014 ([id number]) 90577 EST. P ATIENT, LEVEL III Diagnosis: ACUTE PHARYNGITIS[ICD9: 462] Giovanna Robbins MD, [facility] CPT- 4: 84963 01/10/2014 ([id number]) 61569 EST. P ATIENT, LEVEL III Diagnosis: GENERALIZED ANXIETY DISEASE[ICD9: 300.02] Diagnosis: Ear pain[ICD9: 388.70] Disha Robbins MD, [facility] CPT-4: 68329 09/23/2013 ([id number]) 12341 EST. P ATIENT, LEVEL IV Diagnosis: BACTERIAL PNEUMONIA[ICD9: 482.9] Diagnosis: Encounter for long-term (current) use of other medications[ICD9: V58.69] Diagnosis: HYPOTHYROIDISM[ICD9: 244.9] Diagnosis: DEPRESSIVE DISORDER NEC[ICD9: 311] Disha Robbins MD, [facility] CPT- 4: 84234 09/09/2013 ([id number]) 87590 EST. 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 CPT-4: 36939 06/03/2013 ([id number]) 17583 EST. 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 CPT-4: 53066 12/31/2012 ([id number]) 30382 EST. P ATIENT, LEVEL IV Diagnosis: Renal insufficiency[ICD9: 593.9] Diagnosis: HYPERLIPIDEMIA[ICD9: 272.4] Diagnosis: DEPRESSIVE DISORDER NEC[ICD9: 311] Diagnosis: KIMANI (generalized anxiety disorder)[ICD9: 300.02] Disha Robbins MD, C CPT-4: 91862 10/01/2012 ([id number]) 23782 EST. P ATIENT, LEVEL IV Diagnosis: HYPERLIPIDEMIA[ICD9: 272.4] Diagnosis: DEPRESSIVE DISORDER NEC[ICD9: 311] Diagnosis: KIMANI (generalized anxiety disorder)[ICD9: 300.02] Disha Robbins MD, C CPT-4: 32941 09/03/2012 89381 EST. PATIENT, LEVEL IV Diagnosis: HYPOTHYROIDISM[ICD9: 244.9] Diagnosis: HYPERLIPIDEMIA[ICD9: 272.4] Diagnosis: ACUTE MAXILLARY SINUSITIS[ICD9: 461.0] Disha Robbins MD, [facility] CPT-4: 06148 06/26/2011 Plan of Care Planned Activity Notes C odes Status Date Visit Plan: Hypertension - well con trolled [...] at home. 03/03/2018 Appointment: Disha Robbins [facility]Ptel: [facility] (15 min) Moderate 03/03/2018 Patient Education: Patient Medication Summary Completed 03/03/2018 Appointment: Disha Robbins WPtel: [facility] [place] (15 min) Moderate 02/03/2018 Visit Plan: AVM - discussed with th e patient and her - we will order an MRI of the brain. Pt has been advised that since the seizure she should not be driving and she should continue with Keppra as previously prescribed. 01/27/2018 Appointment: Disha Robbins WPtel: [facility] [place] (15 min) Moderate 01/27/2018 Patient Education: Patient Medication Summary Completed 01/27/2018 Care Plan: MRI BRAIN STEM W/O DYE Pending 01/27/2018 Visit Plan: Blood pressure low - re commended pt to increase the sodium in her diet. Tachycardia - no change in dose of toprol at this time. 10/13/2017 Appointment: Disha Robbins WPtel: [facility] [place] (15 min) Moderate 10/13/2017 Patient Education: Patient [...] at home. 08/07/2017 Appointment: Disha Robbins WPtel: [id number] [place] (15 min) Moderate 08/07/2017 Patient Education: Patient Medication Summary Completed 08/07/2017 Visit Plan: Cat bite to arm - cellu litis - continue with augmentin - call if not improving. Advised pt to have animal control pecan picker the stray cat that bit her. 05/27/2017 Appointment: Disha Robbins WPtel: [facility] [place] (15 min) Moderate 05/27/2017 Patient Education: [...] home. 04/10/2017 Appointment: Disha Robbins WPtel: [id number] [place] (15 min) Moderate 04/10/2017 Patient Education: Patient [...] medications. 03/18/2017 Appointment: Disha Robbins WPtel: [phone] [place] (15 min) Moderate 03/18/2017 Patient Education: Patient [...] acutely worsen. 12/17/2016 Appointment: Giovanna Gilmore WPtel: [phone] [phone] (30 min) Complex 12/17/2016 Patient Education: Patient [...] current medications. 09/17/2016 Appointment: Disha Robbins WPtel: [phone] (15 min) Moderate 09/17/2016 Patient Education: Patient [...] No change in current medications. 05/20/2016 Appointment: Disah Robbins WPtel: [phone] (15 min) Moderate 05/20/2016 Patient Education: Patient Medication Summary Completed 05/20/2016 Care Plan: Tsh Pending 05/20/2016 Care Plan: Free T4 Pending 05/20/2016 Care Plan: [employer] : 86171-8 Pending 12/12/2015 Visit Plan: Medicare Exam - [...] care surrogate. 12/11/2015 Appointment: Tanna Marquez WPtel: [phone] [facility] [facility] - Annual Wellness Visit 12/11/2015 [...] current medications. 07/26/2014 Appointment: Disha Robbins WPtel: [facility] Follow up 07/26/2014 Patient Education: Patient Medication [...] current medications. 01/25/2014 Appointment: Disha Robbins WPtel: [address] [place], [place] [phone] Follow up 01/25/2014 Patient Education: Patient Medication Summary Completed 01/25/2014 Visit Plan: Pharyngitis-Discussed n atural and expected course of this diagnosis and need to alert me if symtpoms do not follow expected course, or if any worse. Recommended salt water gargles as needed for pain. Ty lenol/motrin as needed for fever/discomfort. 01/10/2014 Patient Education: Patient Medication Summary Completed 01/10/2014 Appointment: Disha Robbins WPtel: [address] [place], [place] [phone] [place] Follow up 12/02/2013 Visit Plan: Cerumen [...] current medications. 09/23/2013 Appointment: Disha Robbins WPtel: [id number] [place] Follow up 09/23/2013 Patient Education: Patient Medication [...] current medications. 09/09/2013 Appointment: Disha Robbins WPtel: [facility] [address] follow up 09/09/2013 Patient Education: Patient Medication [...] not improving. 06/03/2013 Appointment: Disha Robbins WPtel: [address] [place], [place] [phone] Follow up 06/03/2013 Patient Education: Patient Medication [...] clinic ETHEL. 02/04/2013 Appointment: Disha Robbins WPtel: [id number] [facility] 02/04/2013 Patient Education: Patient Medication Summary Completed 02/04/2013 Appointment: Disha Robbins WPtel: [phone] [id number] Follow up 01/28/2013 Visit Plan: Extrapyramidal movement [...] of medications. 12/31/2012 Appointment: Disha Robbins WPtel: [id number] Follow up 12/31/2012 Patient Education: Patient Medication [...] dietary changes. 10/01/2012 Appointment: Disha Robbins WPtel: [phone] Follow up 10/01/2012 Patient Education: Patient Medication [...] current medications. 09/03/2012 Appointment: Disha Robbins WPtel: [phone] Follow up 09/03/2012 Patient Education: Patient Medication [...] this time. 06/26/2011 Appointment: Disha Robbins WPtel: [facility] Other 06/26/2011 Patient Education: Patient Medication Summary Completed 06/26/2011 Instructions Comment . AVM - discussed w ith the patient and her - we will order an MRI of the brain. Pt has been advised that since the seizure she should not be driving and she should continue with Keppra as previously prescribed. . 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 Nikloe is to let us know if her [...] depression on lower dose of medications. . 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 Friday take 1/2 of t he levaquin [...] improving. Advised pt to have animal control pecan picker the stray cat that bit her. . [...] for pain. Tylenol/motrin as needed for fever/discomfort. Increase fluids - NO MOTRIN, IBUPROFEN, MELOXICAM, [...] - medication started, discussed dietary changes. . Chronic Depression and anxiety - the [...] in blood pressure readings at home. . Hyperlipidemia - pt has been counseled [...] No change in current medications. go to [employer] [facility] week and get a flu [...] change in meds at this time. . Hypothyroidism - p t with chronic [...] change in current medications. . Blister of toe- ined today in the office and occlusive dressing applied-RX for bactroban ointment and wound care instructions provided- instructed patient to stop draining blister at home-call for any s/s of infection-redness, drainage, warmth, etc or any other concerns. Patient verbalized understanding of plan.
--- OUTSIDE RECORDS SUMMARY | 2019-11-16 08:59 | XMS REPORT | CCD ---
Author Author Nikole Robbins Organization Disha Robbins MD, [facility] Address [address] [place] [address] Phone Care Team Providers Care Reinforcement Maker Name Role Phone PP Unavailable CCM Unavailable Summary Purpose Interface Exchange Insurance Providers Payer name Policy type / Coverage type Covered green party ID Effective Begin Date Effective End Date WPS Medicare Part B Medicare Part B [id number] 2018 Unknown [employer] Medicare Part B [id number] Unknown Family history Son Diagnosis Age At [...] ntly unemployed 06/26/[address]: 141267988 Never smoker 06/26/[address]: 608141810 Never drinks alcohol 06/26/2011 Has the patient [...] Date Stop Date Sta tus Fill Instructions Synthroid 75 mcg tablet RxNorm: 277157 TAKE ONE TABLET BY MOUTH ONCE DAILY 08/24/2018 No Stop Date Active olanzapine 2.5 mg ta blet RxNorm: 162048 TAKE 1 TABLET BY MOUT H ONCE DAILY 06/24/2018 No Stop Date Active fluoxetine 20 mg cap k[place] RxNorm: 166364 TAKE 1 CAPSULE BY ANGELIQUE TH ONCE DAILY 05/14/2018 No Stop Date Active metoprolol tartrate 25 mg tablet RxNorm: 364655 1/2 Tablet(s) PO BID 05/07/2018 09/03/2018 Active olanzapine 2.5 mg ta blet RxNorm: 491579 TAKE ONE TABLET BY MO UTH ONCE DAILY 12/23/2017 06/23/2018 In active fluoxetine 20 mg cap k[place] RxNorm: 591425 TAKE ONE CAPSULE BY M OUTH ONCE DAILY 11/14/2017 05/13/2018 In active lovastatin 20 mg tablet RxNorm: 914191 Tablet(s) TAKE ONE TABLET BY MOUTH AT BE DTIAZ 10/24/2017 10/18/2018 Ac tive KCL 20 meq RxNorm: 1 PO BID 10/13/2017 No S top Date Active niacin ER 500 mg tab let,extended release RxNorm: 025700 1 Tablet(s) PO QHS 10/13/2017 No Stop Date Active cefdinir 300 mg capsule RxNorm: 867804 1 Capsule(s) PO BID 09/30/2017 10/06/2017 Inactive cefdinir 300 mg capsule RxNorm: 559854 1 Capsule(s) PO BID 09/30/2017 09/29/2017 Inactive Zithromax Z-Yan 250 mg tablet RxNorm: 330537 1 Tablet(s) PO UD 09/30/2017 10/12/2017 Inactive z pack as directed lovastatin 20 mg tablet RxNorm: 065795 Tablet(s) TAKE ONE TABLET BY MOUTH AT BE DTIAZ 09/10/2017 10/23/2017 Inactive Synthroid 75 mcg tablet RxNorm: 209695 TAKE ONE TABLET BY MOUTH ONCE DAILY 08/01/2017 08/23/2018 In active olanzapine 2.5 mg ta blet RxNorm: 492498 TAKE ONE TABLET BY MO UTH ONCE DAILY 05/27/2017 11/22/2017 In active Zithromax Z-Yan 250 mg tablet RxNorm: 636633 1 Tablet(s) PO UD 04/29/2017 09/29/2017 Inactive z pack as directed fluoxetine 20 mg cap kameron RxNorm: 662969 TAKE ONE CAPSULE BY M OUTH ONCE DAILY 04/28/2017 10/24/2017 In active lovastatin 20 mg tablet RxNorm: 482128 TAKE ONE TABLET BY MOUTH AT BEDTIME 04/28/2017 09/09/2017 In active Synthroid 75 mcg tablet RxNorm: 336397 TAKE ONE TABLET BY MOUTH ONCE DAILY 04/08/2017 07/31/2017 In active losartan 50 mg tablet RxNorm: 975985 1 Tablet(s) PO daily 03/20/2017 10/08/2017 Inactive losartan 50 mg tablet RxNorm: 027963 1 Tablet(s) PO daily 03/18/2017 03/19/2017 Inactive olanzapine 2.5 mg ta blet RxNorm: 180790 TAKE ONE TABLET BY MO UTH ONCE DAILY 02/28/2017 05/26/2017 In active Kenalog 40 mg/mL kassie pension for injection RxNorm: 4787825 Milliliter(s) Inj 12/20/2016 12/20/2016 In active ceftriaxone 500 mg s olution for injection RxNorm: 9073151 1 Milliliter(s) Inj 12/17/2016 12/17/2016 In active Zithromax Z-Yan 250 mg tablet RxNorm: 963992 1 Tablet(s) PO UD 12/17/2016 12/21/2016 Inactive zpack Kenalog 40 mg/mL kassie pension for injection RxNorm: 4097173 1 Milliliter(s) Inj 12/17/2016 12/17/2016 In active Synthroid 75 mcg tablet RxNorm: 373912 TAKE ONE TABLET BY MOUTH ONCE DAILY 11/08/2016 04/06/2017 In active lovastatin 20 mg tablet RxNorm: 126661 TAKE ONE TABLET BY MOUTH AT BEDTIME 10/28/2016 04/25/2017 In active fluoxetine 20 mg cap kameron RxNorm: 279834 TAKE ONE CAPSULE BY M OUTH ONCE DAILY 10/28/2016 04/25/2017 In active Synthroid 75 mcg tablet RxNorm: 201722 TAKE ONE TABLET BY MOUTH ONCE DAILY 10/08/2016 11/06/2016 In active Zithromax Z-Yan 250 mg tablet RxNorm: 494554 1 Tablet(s) PO UD 07/29/2016 09/16/2016 Inactive zpack as directed olanzapine 2.5 mg ta blet RxNorm: 759284 TAKE ONE TABLET BY MO UTH ONCE DAILY 07/29/2016 06/23/2018 In active lovastatin 20 mg tablet RxNorm: 770219 TAKE ONE TABLET BY MOUTH AT BEDTIME 07/02/2016 10/27/2016 In active olanzapine 2.5 mg ta blet RxNorm: 258083 TAKE ONE TABLET BY MO UTH ONCE DAILY 04/29/2016 09/16/2016 In active olanzapine 2.5 mg ta blet RxNorm: 837578 TAKE ONE TABLET BY MO UTH ONCE DAILY 04/29/2016 04/28/2016 In active fluoxetine 20 mg cap kameron RxNorm: 451397 TAKE ONE CAPSULE BY M OUT ONCE DAILY 03/26/2016 09/21/2016 In active olanzapine 2.5 mg ta blet RxNorm: 738999 Tablet(s) TAKE ONE TA BLET BY MOUTH ONCE DAILY 01/31/2016 03/30/2016 Inactive olanzapine 2.5 mg ta blet RxNorm: 528438 Tablet(s) TAKE ONE TA BLET BY MOUTH ONCE DAILY 01/25/2016 01/30/2016 Inactive lovastatin 20 mg tablet RxNorm: 607794 TAKE ONE TABLET BY MOUTH AT BEDTIME 12/28/2015 06/24/2016 In active fluoxetine 20 mg cap kameron RxNorm: 309936 Capsule(s) TAKE ONE C APSULE BY MOUTH ONCE DAILY 12/28/2015 09/16/2016 Inactive olanzapine 2.5 mg ta blet RxNorm: 494596 TAKE ONE TABLET BY MO UTH ONCE DAILY 11/24/2015 01/22/2016 In active mupirocin 2 % topica l ointment RxNorm: 905422 1 Application TOP BID 10/06/2015 10/12/2015 Inactive Synthroid 75 mcg tablet RxNorm: 944057 Tablet(s) PO daily TAKE ONE TABLET BY MO UTH EVERY DAY 09/18/2015 09/11/2016 Inactive [SAVINGS FOR NON-COVERED DR HAMMOND -- [facility]:[id number], PCN: ASPROD1, Group: XXXXX, ID# XXXXXXX, Questions: . THIS IS NOT INSURANCE.] Synthroid 75 mcg tablet RxNorm: 443172 Tablet(s) PO daily TAKE ONE TABLET BY MO UTH EVERY DAY 09/15/2015 09/17/2015 Inactive [SAVINGS FOR NON-COVERED DR UGS -- [facility]:610158, PCN: ASPROD1, Group: XXXXX, ID# XXXXXXX, Questions: . THIS IS NOT INSURANCE.] Synthroid 75 mcg tablet RxNorm: 960041 Tablet(s) TAKE ONE TABLET BY MOUTH EVERY DAY 09/14/2015 09/14/2015 Inactive [SAVINGS FOR NON-COVERED DRUGS -- BIN:00 3585, PCN: ASPROD1, Group: XXXXX, ID# XXXXXXX, Questions: . THIS IS NOT INSURANCE.] fluoxetine 20 mg cap kameron RxNorm: 679919 TAKE ONE CAPSULE BY M OUTH ONCE DAILY 08/24/2015 12/21/2015 In active lovastatin 20 mg tablet RxNorm: 491655 1 Tablet(s) PO QHS TAKE ONE TABLET BY MO UTH AT BEDTIME 05/29/2015 12/24/2015 Inactive [SAVINGS FOR NON-COVERED DR UGS -- [facility]:[id number], PCN: ASPROD1, Group: XXXXX, ID# [id number], Questions: . THIS IS NOT INSURANCE.] olanzapine 2.5 mg ta blet RxNorm: 239809 TAKE ONE TABLET BY MO UTH ONCE DAILY 05/25/2015 11/20/2015 In active olanzapine 2.5 mg ta blet RxNorm: 738770 1 Tablet(s) daily PATRIZIA E ONE TABLET BY MOUTH EVERY DAY 02/27/2015 05/24/2015 Inactive [SAVINGS FOR NON-COVERED DR UGS -- BIN:599870, PCN: ASPROD1, Group: XXXXX, ID# [id number], Questions: . THIS IS NOT INSURANCE.] fluoxetine 20 mg cap kameron RxNorm: 158667 Capsule(s) TAKE ONE C APSULE BY MOUTH EVERY DAY 02/27/2015 08/23/2015 Inactive prednisone 20 mg tablet RxNorm: 166854 1 Tablet(s) PO BID 01/16/2015 01/18/2015 Inactive prednisone 20 mg tablet RxNorm: 244057 1 Tablet(s) PO BID 01/16/2015 01/15/2015 Inactive Zithromax Z-Yan 250 mg tablet RxNorm: 881110 1 Tablet(s) PO as doc tor directed 01/16/2015 07/28/2016 In active zpack as directed olanzapine 2.5 mg ta blet RxNorm: 460022 1 Tablet(s) daily PATRIZIA E ONE TABLET BY MOUTH EVERY DAY 11/24/2014 02/21/2015 Inactive [SAVINGS FOR NON-COVERED DR UGS -- BIN:204578, PCN: ASPROD1, Group: XXXXX, ID# XXXXXXX, Questions: . THIS IS NOT INSURANCE.] lovastatin 20 mg tablet RxNorm: 509410 1 Tablet(s) PO QHS TAKE ONE TABLET BY MO UTH AT BEDTIME 10/26/2014 05/23/2015 Inactive [SAVINGS FOR NON-COVERED DR UGS -- BIN:470729, PCN: ASPROD1, Group: XXXXX, ID# [id number], Questions: . THIS IS NOT INSURANCE.] Synthroid 75 mcg tablet RxNorm: 104796 1 Tablet(s) PO daily TAKE ONE TABLET BY MOUTH EVERY DAY 09/19/2014 12/17/2014 Inactive Synthroid 75 mcg tablet RxNorm: 486876 Tablet(s) TAKE ONE TABLET BY MOUTH EVERY DAY 09/19/2014 09/13/2015 Inactive [SAVINGS FOR NON-COVERED DRUGS -- BIN:00 3585, PCN: ASPROD1, Group: XXXXX, ID# XXXXXXX, Questions: . THIS IS NOT INSURANCE.] fluoxetine 20 mg cap kameron RxNorm: 602909 TAKE ONE CAPSULE BY M OUTH EVERY DAY 08/04/2014 01/30/2015 In active fluoxetine 20 mg cap kameron RxNorm: 210111 1 Capsule(s) PO daily TAKE ONE CAPSULE BY MOUTH EVERY DAY 08/02/2014 08/03/2014 Inactive [SAVINGS FOR UNINSURED ERNIE ENTS -- BIN:640537, PCN: ASPROD1, Group: [id number], ID# [id number], Process claim through [employer], for questions: . THIS IS NOT INSURANCE.] lovastatin 20 mg tablet RxNorm: 772539 TAKE ONE TABLET BY MOUTH AT BEDTIME 07/25/2014 10/22/2014 In active olanzapine 2.5 mg ta blet RxNorm: 123301 Tablet(s) TAKE ONE TA BLET BY MOUTH EVERY DAY 07/19/2014 07/18/2014 Inactive olanzapine 2.5 mg ta blet RxNorm: 387621 TAKE ONE TABLET BY MO UTH EVERY DAY 07/19/2014 10/16/2014 In active Synthroid 75 mcg tablet RxNorm: 157702 1 Tablet(s) PO daily TAKE ONE TABLET BY MOUTH EVERY DAY 06/20/2014 06/19/2014 Inactive Synthroid 75 mcg tablet RxNorm: 623532 TAKE ONE TABLET BY MOUTH EVERY DAY 06/20/2014 09/18/2014 In active lovastatin 20 mg tablet RxNorm: 160627 TAKE ONE TABLET BY MOUTH AT BEDTIME 04/22/2014 07/20/2014 In active olanzapine 2.5 mg ta blet RxNorm: 150225 TAKE ONE TABLET BY MO UTH EVERY DAY 04/21/2014 07/18/2014 In active Synthroid 75 mcg tablet RxNorm: 034382 TAKE ONE TABLET BY MOUTH EVERY DAY 03/22/2014 06/19/2014 In active fluoxetine 20 mg cap kameron RxNorm: 149540 TAKE ONE CAPSULE BY M OUTH EVERY DAY 02/02/2014 07/31/2014 In active lovastatin 20 mg tablet RxNorm: 690724 TAKE ONE TABLET BY MOUTH AT BEDTIME 01/20/2014 04/19/2014 In active olanzapine 2.5 mg ta blet RxNorm: 163078 TAKE ONE TABLET BY MO UTH EVERY DAY 01/14/2014 04/13/2014 In active amoxicillin 500 mg t ablet RxNorm: 175253 1 Tablet(s) PO TID 01/10/2014 01/16/2014 Inactive Rocephin 500 mg solu tion for injection RxNorm: 402376 Inj 01/1001/10/2014 Inactive Synthroid 75 mcg tablet RxNorm: 774443 Tablet(s) PO TAKE ONE TABLET BY MOUTH EV FERCHO DAY 12/27/2013 03/21/2014 Inactive lovastatin 20 mg tablet RxNorm: 378515 Tablet(s) PO TAKE ONE TABLET BY MOUTH AT BEDTIME 12/20/2013 01/19/2014 Inactive olanzapine 2.5 mg ta blet RxNorm: 106829 Tablet(s) PO TAKE ONE TABLET BY MOUTH EVERY DAY 12/17/2013 01/13/2014 Inactive Synthroid 75 mcg tablet RxNorm: 505405 Tablet(s) PO TAKE ONE TABLET BY MOUTH EV FERCHO DAY 11/22/2013 12/26/2013 Inactive lovastatin 20 mg tablet RxNorm: 820325 Tablet(s) PO TAKE ONE TABLET BY MOUTH AT BEDTIME 11/15/2013 12/19/2013 Inactive olanzapine 2.5 mg ta blet RxNorm: 207070 Tablet(s) PO TAKE ONE TABLET BY MOUTH EVERY DAY 11/15/2013 12/16/2013 Inactive Synthroid 75 mcg tablet RxNorm: 385348 Tablet(s) PO TAKE ONE TABLET BY MOUTH 10/25/2013 11/21/2013 Inactive lovastatin 20 mg tablet RxNorm: 507143 Tablet(s) PO TAKE ONE TABLET BY MOUTH AT BEDTIME 10/18/2013 11/14/2013 Inactive Zithromax 250 mg tablet RxNorm: 120883 Tablet(s) PO 08/30/2013 07/26/2014 Inactive zpac k as directed Synthroid 75 mcg tablet RxNorm: 869401 Tablet(s) PO TAKE ONE TABLET BY MOUTH 05/24/2013 10/24/2013 Inactive lovastatin 20 mg tablet RxNorm: 689158 Tablet(s) PO TAKE ONE TABLET BY MOUTH AT BEDTIME 04/19/2013 10/17/2013 Inactive olanzapine 2.5 mg ta blet RxNorm: 416817 1 Tablet(s) PO 02/04/2013 09/01/2013 Inactive fluoxetine 20 mg cap kameron RxNorm: 831173 Capsule(s) PO TAKE ON E CAPSULE BY MOUTH EVERY DAY 01/08/2013 02/01/2014 Inactive olanzapine 5 mg tablet RxNorm: 408841 1/2 Tablet(s) PO daily zyprexa 12/31/2012 02/03/2013 In active Synthroid 75 mcg tablet RxNorm: 260870 1 Tablet(s) PO daily 09/29/2012 03/27/2013 Inactive Vitamin D2 50,000 un it capsule RxNorm: 494620 1 Capsule(s) PO QW 09/29/2012 09/16/2016 Inactive one weekly x 8 weeks then 1000units dorcas y thereafter Synthroid 75 mcg tablet RxNorm: 959186 1 Tablet(s) PO daily 09/29/2012 09/28/2012 Inactive lovastatin 20 mg tablet RxNorm: 383918 Tablet(s) PO TAKE ONE TABLET BY MOUTH AT BEDTIME 09/21/2012 04/18/2013 Inactive fluoxetine 20 mg cap kameron RxNorm: 887512 1 Capsule(s) PO daily TAKE ONE CAPSULE BY MOUTH EVERY DAY 09/16/2012 01/07/2013 Inactive Synthroid 50 mcg tablet RxNorm: 773447 1 Tablet(s) PO daily 09/14/2012 12/31/2012 Inactive brand name only fluoxetine 20 mg cap kameron RxNorm: 690729 Capsule(s) PO TAKE ON E CAPSULE BY MOUTH EVERY DAY 09/07/2012 09/15/2012 Inactive Synthroid 50 mcg tablet RxNorm: 634165 1 Tablet(s) PO daily 09/07/2012 09/13/2012 Inactive brand name only niacin ER 500 mg tab let,extended release RxNorm: 449628 2 Tablet(s) PO daily 09/03/2012 10/12/2017 In active lovastatin 20 mg tablet RxNorm: 260418 1 Tablet(s) PO QHS TAKE ONE TABLET BY MO [facility] AT BEDTIME 08/26/2012 09/20/2012 Inactive Zithromax Z-Yan 250 mg tablet RxNorm: 303022 Tablet(s) PO UD 08/13/2012 12/31/2012 Inactive fluoxetine 20 mg cap kameron RxNorm: 104726 Capsule(s) PO 05/11/2012 09/06/2012 Inactive TAKE ONE CAPSULE BY MOUTH EVERY DAY fluoxetine 20 mg cap kameron RxNorm: 877382 1 Capsule(s) PO daily 01/06/2012 05/04/2012 Inactive Zyprexa 5 mg Tab RxNorm: 463354 Tablet(s) PO 01/06/2012 12/31/2012 Inactive TAKE ONE TABLET BY MOUTH EVERY DAY lovastatin 20 mg tablet RxNorm: 840033 Tablet(s) PO 12/24/2011 08/26/2012 Inactive TAKE ONE TABLET BY MOUTH AT BEDTIME Rocephin 500 mg Solu tion for Injection RxNorm: 965999 Inj 06/2612/31/2012 Inactive Keppra 500 mg tablet RxNorm: 610957 1 Tablet(s) PO BID No Start Date Active omeprazole 20 mg Cap , Delayed Release RxNorm: 201159 1 Capsule(s) PO BID No Start Date Active oxycodone-acetaminop hen 5 mg-325 mg Tab RxNorm: 0544174 1 Tablet(s) PO Q4 W[place] N No Start Date Active acyclovir 800 mg tablet RxNorm: 865968 1 Tablet(s) PO daily No Start Date Active letrozole 2.5 mg Tab RxNorm: 269468 1 Tablet(s) PO daily No Start Date Active multivitamin Cap RxNorm: 1 Capsule(s) PO daily No Start Date Active Aspirin Low Dose 81 mg tablet,delayed release RxNorm: 676613 1 Tablet(s) PO daily No Start Date Active Calcium 600 + D(3) 6 00 mg (1,500)-200 unit Tab RxNorm: 884235 1 Tablet(s) PO daily No Start Date Active Vitamin B-12 1,000 m cg tablet RxNorm: 068512 1 Tablet(s) PO daily No Start Date Active ferrous sulfate 325 mg (65 mg iron) tablet RxNorm: 391446 1 Tablet(s) PO daily No Start Date Active KCL 20 meq RxNorm: 1 PO daily No Start Date 10/12/2017 Inactive Zyprexa 5 mg Tab RxNorm: 753828 1 Tablet(s) PO daily No Start Date 01/05/2012 Inactive Zithromax Z-Yan 250 mg tablet RxNorm: 834734 Tablet(s) PO UD No Start Date 08/12/2012 Inactive Zithromax Z-Yan 250 mg tablet RxNorm: 798442 1 Tablet(s) PO UD No Start Date 04/28/2017 Inactive z pack as directed niacin ER 500 mg tab let,extended release RxNorm: 173361 1 Tablet(s) PO daily No Start Date 09/02/2012 Inactive Vitamin D2 50,000 un it capsule RxNorm: 660066 1 Capsule(s) PO QW No Start Date 09/28/2012 Inactive one weekly x 8 weeks then 1000units dorcas y thereafter Synthroid 50 mcg tablet RxNorm: 196052 1 Tablet(s) PO daily No Start Date 09/06/2012 Inactive brand name only acyclovir 400 mg Tab RxNorm: 935956 1 Tablet(s) PO BID No Start Date 09/15/2012 Inactive Zithromax Z-Yan 250 mg tablet RxNorm: 601019 1 Tablet(s) PO as doc tor directed No Start Date 01/15/2015 Inactive zpack as directed metoprolol tartrate 25 mg tablet RxNorm: 286810 1/2 Tablet(s) PO BID No Start Date 05/06/2018 Inactive fluoxetine 20 mg Tab RxNorm: 656238 1 Tablet(s) PO daily No Start Date 07/26/2014 Inactive REVLIMID 10 mg Cap RxNorm: 538731 1 Capsule(s) PO daily No Start Date 12/31/2012 Inactive lovastatin 20 mg Tab RxNorm: 761816 1 Tablet(s) PO QHS No Start Date 12/23/2011 Inactive aspirin 81 mg Cap, D elayed Release RxNorm: 910561 1 Capsule(s) PO daily No Start Date 12/30/2012 Inactive olanzapine 5 mg tablet RxNorm: 811122 1 Tablet(s) PO daily zyprexa No Start Date 12/30/2012 Inactive Zithromax 250 mg tablet RxNorm: 460572 Tablet(s) PO No Start Date 08/29/2013 Inactive zpac k as directed levofloxacin 500 mg Tab RxNorm: 792629 1 Tablet(s) PO daily No Start Date 06/26/2011 Inactive levothyroxine 50 mcg Tab RxNorm: 162464 1 Tablet(s) PO daily No Start Date 12/31/2012 Inactive dexamethasone 4 mg Tab RxNorm: 281335 2 Tablet(s) PO weekly No Start Date 12/31/2012 Inactive Medication Administered Medication Codes Instruc tions Start Date Status Kenalog 40 mg/mL suspension for injection RxNorm: 7124915 Milliliter 12/20/2016 No longer Active Kenalog 40 mg/mL suspension for injection RxNorm: 9384226 1Milliliter 12/17/2016 N o longer Active ceftriaxone 500 mg solution for injection RxNorm: 5482828 1Milliliter 12/17/2016 N o longer Active Rocephin 500 mg solution for injection RxNorm: 423943 01/10/2014 No longer A ctive Immunizations Vaccine [...] Item Item Code Result Date Free T4 Wxs640 FREE T4 1.06 ng/dL 11/18/2016 Tsh Ord6 [...] 33.2 pg 10/22/2016 Cbc With Differential Ord2 [place]% 36.7 % 10/22/2016 Cbc With Differential Ord2 [...] 0.51 K/ul 10/22/2016 Cbc With Differential Ord2 [place] ABS# 0.6 K/ul 10/22/2016 Cbc With Differential Ord2 Eos ABS# 0.0 K/ul 10/22/2016 Cbc With Differential Ord2 Baso ABS# 0.0 K/ul 10/22/2016 Lipid Ord30 CHOL 99 mg/dL 10/22/2016 Lipid Ord30 HDL 38.0 mg/dl 10/22/2016 Lipid Ord30 TRIG 102 mg/dL 10/22/2016 Lipid Ord30 LDL 41 mg/dL 10/22/2016 Lipid Ord30 C/HDL 2.6 Ratio 10/22/2016 Comp Metabolic Kge632 NA 135 mEq/L 10/22/2016 Comp Metabolic Cpg063 K 4.5 mEq/L 10/22/2016 Comp Metabolic Anl314 CL 102 mEq/L 10/22/2016 Comp Metabolic Lfu789 CO2 20.0 mEq/L 10/22/2016 Comp Metabolic Isb136 AN ION GAP 18 10/22/2016 Comp Metabolic Cxd034 GL UCOSE 108 mg/dL 10/22/2016 Comp Metabolic Ine129 Cr eat 1.1 mg/dL 10/22/2016 Comp Metabolic Wae488 eG FR 53 ml/min/1.73m2 10/22 Comp Metabolic Kkk754 BUN 17 mg/dL 10/22/2016 Comp Metabolic Snd483 B/ C Ratio 15.7 Ratio 10/22/2016 Comp Metabolic Oxu472 CA LCIUM 8.9 mg/dL 10/22/2016 Comp Metabolic Lcy351 AL K PHOS 65 U/L 10/22/2016 Comp Metabolic Fkb442 T(SGOT) 14 U/L 10/22/2016 Comp Metabolic Fsi157 AL T(SGPT) 19 U/L 10/22/2016 Comp Metabolic Wpl587 BI LI T 0.8 mg/dL 10/22/2016 Comp Metabolic Xlu567 AL BUMIN 3.5 g/dL 10/22/2016 Comp Metabolic Hgl866 TP RO 7.0 g/dL 10/22/2016 Comp Metabolic Utq453 GL OB 3.5 g/dL 10/22/2016 Comp Metabolic Iky108 A/ G Ratio 1.0 Ratio 10/22/2016 Comp Metabolic Xnn613 Os mo 272 mOsmo 10/22/2016 Manual Differential Ord52 D-Neutr 38 % 10/22/2016 Manual Differential Ord52 D-Bands 15 % 10/22/2016 Manual Differential Ord52 D-Lymph 37 % 10/22/2016 Manual Differential Ord52 D-Eos 4 % 10/22/2016 Manual Differential Ord52 D-Au Gres 3 % 10/22/2016 Manual Differential Ord52 D-Aty Lymp 3 % 10/22/2016 Free T4 Qlj330 FREE T4 1.38 ng/dL 10/22/2016 Tsh Ord6 hTSH II 2.05 uIU/mL 10/22/2016 Free T4 Uua617 FREE T4 0.85 ng/dL 05/20/2016 Tsh Ord6 hTSH II 0.63 uIU/mL 05/20/2016 CHEM 14 20280123 AST 16 U/L 09/09/2013 CHEM 14 20280123 ALT 20 IU/L 09/09/2013 CHEM 14 3067334 BUN 17 MG/DL 09/09/2013 CHEM 14 1895193 ALBUMIN 3.6 GM/DL 09/09/2013 CHEM 14 20280123 CHLORIDE 102 MMOL/L 09/09/2013 CHEM 14 20280123 BILI TOT 0.3 MG/DL 09/09/2013 CHEM 14 4466905 ALK PHOS 88 U/L 09/09/2013 CHEM 14 6846435 SODIUM 138 MMOL/L 09/09/2013 CHEM 14 5690833 CREATINI NE 1.10 MG/DL 09/09/2013 CHEM 14 8535436 CALCIUM 9.0 MG/DL 09/09/2013 CHEM 14 9916035 POTASSIUM 4.8 MMOL/L 09/09/2013 CHEM 14 20280123 PROT TOT 6.7 GM/DL 09/09/2013 CHEM 14 20280123 GLUCOSE 113 MG/DL 09/09/2013 CHEM 14 9799941 BICARB 27 MMOL/L 09/09/2013 CHEM 14 5258364 ANION GAP 9 MEQ/L 09/09/2013 GFR CALC 0198893 GFR AA 60.0L ML/MIN 09/09/2013 GFR CALC 8519920 GFR NON -AA 50.0L ML/MIN 4 Review [...] No rash Dermatologic No sores Psychiatric anxiety 0702/2013 Psychiatric depression 0 02/04/2013 Constitutional No recent [...] 1994 Ears/Nose/Throat oral cavity/pharynx/larynx Overall: no masses 10/01/2012 [...] murmurs 10/01/2012 None Full Exam - General 1995 Abdomen abdominal exam Overall: no tenderness 10/01/2012 None Full Exam - General 1995 Abdomen [...] Procedure Codes Date THER/PROPH/DIAG INJ SC/IM CPT-4: 93965 12/20/2016 TRIAMCINOLONE ACET I [place] NOS CPT-4: J3301 12/20/2016 TRIAMCINOLONE ACET I [place] NOS CPT-4: J3301 12/17/2016 ROCEPHIN, PER 250 MG CPT-4: J0696 12/17/2016 PPPS, SUBSEQ VISIT CPT- 4: G0439 12/11/2015 ADMIN PNEUMOCOCCAL V ACCINE Assigned to/Cresencio Merissa AZRA CT: [id number] CPT-4: W6070Uxxhjih 07/26/2014 Pneumococcal Polysac charide Vaccine, 23-Valent, Ad CPT-4: 75400 07/26/2014 ROCEPHIN, PER 250 MG CPT-4: J0696 01/10/2014 ROUTINE VENIPUNCTURE CPT-4: 10077 09/09/2013 PRESCRIP TRANSMIT A ERX SY CPT-4: G8553 02/04/2013 PRESCRIP TRANSMIT A ERX SY CPT-4: G8553 12/31/2012 THER/PROPH/DIAG INJ SC/IM CPT-4: 37250 06/26/2011 ROCEPHIN, PER 250 MG CPT-4: J0696 06/26/2011 Vital Signs Date Vital 06/30/2018 Blood Pressure 1: 120/80 Code: 8480-6 BMI: 28.2 Code: 56964-1 Heart Rate 1: 100 bpm Height: 5'1" SpO2: 94% Weight: 149 lbs 03/03/2018 Blood Pressure 1: 122/72 Code: 8480-6 BMI: 28.2 Code: 75597-0 Heart Rate 1: 100 bpm Height: 5'1" SpO2: 94% Weight: 149 lbs 01/27/2018 Blood Pressure 1: 112/70 Code: 8480-6 BMI: 27.8 Code: 94070-3 Heart Rate 1: 94 bpm Height: 5'1" SpO2: 94% Weight: 147 lbs 10/13/2017 Blood Pressure 1: 96/72 Code: 8480-6 BMI: 27.8 Code: 00274-3 Heart Rate 1: 106 bpm Height: 5'1" SpO2: 91% Weight: 147 lbs 08/07/2017 Blood Pressure 1: 120/80 Code: 8480-6 BMI: 29.7 Code: 14815-3 Heart Rate 1: 95 bpm Height: 5'1" SpO2: 94% Weight: 157 lbs 05/27/2017 Blood Pressure 1: 144/88 Code: 8480-6 BMI: 29.3 Code: 76067-0 Heart Rate 1: 94 bpm Height: 5'1" SpO2: 96% Weight: 155 lbs 04/10/2017 Blood Pressure 1: 140/88 Code: 8480-6 Blood Pressure 1: 126/78 Code: 8480-6 BMI: 28.5 Code: 58801-2 Heart Rate 1: 94 bpm Height: 5'1" SpO2: 96% Weight: 151 lbs 03/25/2017 Blood Pressure 1: 120/74 Code: 8480-6 03/18/2017 Blood Pressure 1: 150/98 Code: 8480-6 BMI: 28.6 Code: 32721-3 Heart Rate 1: 114 bpm Height: 5'1" SpO2: 96% Weight: 151 lbs 8 oz 12/17/2016 Blood Pressure 1: 146/86 Code: 8480-6 BMI: 26.1 Code: 42200-8 Heart Rate 1: 94 bpm Height: 5'1" SpO2: 95% Temperature: 36.1 (C ) / 97.0 (F) Weight: 138 lbs 09/17/2016 Blood Pressure 1: 148/88 Code: 8480-6 BMI: 26.5 Code: 30856-9 Heart Rate 1: 86 bpm Height: 5'1" SpO2: 93% Weight: 140 lbs 8 oz 05/20/2016 Blood Pressure 1: 128/82 Code: 8480-6 BMI: 26.3 Code: 55423-6 Heart Rate 1: 99 bpm Height: 5'1" SpO2: 92% Weight: 139 lbs 12/11/2015 Blood Pressure 1: 138/84 Code: 8480-6 BMI: 28.3 Code: 52769-3 Heart Rate 1: 95 bpm Height: 5'1" SpO2: 97% Waist Measure (cm): 89 cm Weight: 150 lbs 10/06/2015 Blood Pressure 1: 128/78 Code: 8480-6 BMI: 28.0 Code: 94534-1 Heart Rate 1: 94 bpm Height: 5'1" SpO2: 96% Weight: 148 lbs 09/21/2015 Blood Pressure 1: 126/94 Code: 8480-6 Blood Pressure 1: 152/78 Code: 8480-6 BMI: 28.0 Code: 45129-7 Heart Rate 1: 104 bpm Height: 5'1" SpO2: 98% Weight: 148 lbs 07/26/2014 Blood Pressure 1: 110/68 Code: 8480-6 BMI: 28.7 Code: 61600-2 Heart Rate 1: 98 bpm Height: 5'1" Weight: 152 lbs 01/25/2014 Blood Pressure 1: 120/78 Code: 8480-6 BMI: 29.3 Code: 55513-9 Heart Rate 1: 104 bpm Height: 5'1" Weight: 155 lbs 01/10/2014 Blood Pressure 1: 138/88 Code: 8480-6 Temperature: 37.1 (C) / 98.7 (F) Weight: 156 lbs 09/23/2013 Blood Pressure 1: 128/78 Code: 8480-6 BMI: 28.9 Code: 84643-4 Heart Rate 1: 88 bpm Height: 5'1" Weight: 153 lbs 09/09/2013 Blood Pressure 1: 110/68 Code: 8480-6 BMI: 28.5 Code: 32703-8 Heart Rate 1: 90 bpm Height: 5'1" SpO2: 90% Weight: 151 lbs 06/03/2013 Blood Pressure 1: 132/82 Code: 8480-6 BMI: 28.9 Code: 79370-6 Heart Rate 1: 88 bpm Height: 5'1" Weight: 153 lbs 02/04/2013 Blood Pressure 1: 140/90 Code: 8480-6 BMI: 29.3 Code: 26248-6 Heart Rate 1: 88 bpm Height: 5'1" Weight: 155 lbs 12/31/2012 Blood Pressure 1: 102/76 Code: 8480-6 BMI: 29.6 Code: 33561-9 Heart Rate 1: 112 bpm Height: 5'1" Weight: 156 lbs 8 oz 10/01/2012 Blood Pressure 1: 116/78 Code: 8480-6 BMI: 29.0 Code: 66423-5 Height: 5'2" Weight: 156 lbs 09/03/2012 Blood Pressure 1: 132/88 Code: 8480-6 Heart Rate 1: 88 bpm Weight: 154 lbs 8 oz 06/26/2011 Blood Pressure 1: 82/58 Code: 8480-6 BMI: 27.5 Code: 16851-9 Heart Rate 1: 80 bpm Height: 5'1" [...] of the thyroid 03/18/2017 None hypothyroid 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 03/18/2017 None hypothyroid Onset and Resolution [...] Exacerbating Factors diet 09/17/2016 None hypothyroid 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 09/17/2016 None hypothyroid Location at the level of the thyroid 09/17/2016 None Hospital Follow Up _ pne [place] 05/20/2016 None anxiety Quality chronic 05/20/2016 None [...] Alleviating Factors medication 12/31/2012 None hypothyroid 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 12/31/2012 None hyperlipidemia Onset and Resolution [...] Family History hyperlipidemia 09/03/2012 None hypothyroid 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 06/26/2011 None cough Location in the [...] Encounters Encounter Performer Loca tion Codes Date ([id number]) 74293 EST. P ATIENT, LEVEL III Diagnosis: Essential (primary) hypertension[ICD10: I10] [facility] CPT-4: 74222 06/30/2018 ([id number]) 43452 EST. P ATIENT, LEVEL III Diagnosis: Essential (primary) hypertension[ICD10: I10] Disha Robbins MD, C CPT-4: 32197 03/03/2018 ([id number]) 90743 EST. 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 CPT-4: 38225 01/27/2018 ([id number]) 13808 EST. P ATIENT, LEVEL III Diagnosis: Other hypotension[ICD10: I95.89] Diagnosis: Ventricular tachycardia[ICD10: I47.2] Disha Robbins MD, [facility] CPT-4: 37203 10/13/2017 ([id number]) 90108 EST. P ATIENT, LEVEL III Diagnosis: Essential (primary) hypertension[ICD10: I10] Disha Robbins MD[facility] CPT-4: 15603 08/07/2017 ([id number]) 90992 EST. P ATIENT, LEVEL III Diagnosis: Open bite of left upper arm, initial encounter[ICD10: S41.152A] Disha Robbins MD, [facility] CPT-4: 76192 05/27/2017 ([id number]) 97055 EST. P ATIENT, LEVEL III Diagnosis: Essential (primary) hypertension[ICD10: I10] Disha Robbins MD[facility] CPT-4: 43609 04/10/2017 ([id number]) Miscellaneou s no charge Diagnosis: Essential (primary) hypertension[ICD10: I10] Tanna Robbins MD, [facility] CPT-4: 35441 03/25/2017 ([id number]) 69295 EST. P ATIENT, LEVEL IV Diagnosis: Essential (primary) hypertension[ICD10: I10] Diagnosis: Atrophy of thyroid (acquired)[ICD10: E03.4] Diagnosis: Mixed hyperlipidemia[ICD10: E78.2] Disha Robbins MD, [facility] CPT- 4: 33568 03/18/2017 ([id number]) 87482 EST. P ATIENT, LEVEL III Diagnosis: Cough[ICD10: R05] Diagnosis: Acute bronchitis, unspecified[ICD10: J20.9] Giovanna Robbins MD, [facility] CPT-4: 18219 12/17/2016 ([id number]) 98594 EST. P ATIENT, LEVEL IV Diagnosis: Atrophy of thyroid (acquired)[ICD10: E03.4] Diagnosis: Mixed hyperlipidemia[ICD10: E78.2] Diagnosis: Generalized anxiety disorder[ICD10: F41.1] Disha Robbins MD, C CPT-4: 08184 09/17/2016 ([id number]) 33268 EST. P ATIENT, LEVEL III Diagnosis: Atrophy of thyroid (acquired)[ICD10: E03.4] Diagnosis: Generalized anxiety disorder[ICD10: F41.1] Disha Robbins MD, [facility] CPT-4: 45088 05/20/2016 56068 EST. PATIENT, LEVEL II Diagnosis: Blister (nonthermal), right great toe, initial encounter[ICD10: S90.421A] Giovanna Robbins MD, [facility] CPT-4: 54911 10/06/2015 ([id number]) 61514 EST. P ATIENT, LEVEL IV Diagnosis: Elevated blood-pressure reading, without diagnosis of hypertension[ICD10: R03.0] Diagnosis: Mixed hyperlipidemia[ICD10: E78.2] Diagnosis: Hypothyroidism, unspecified[ICD10: E03.9] Giovanna Robbins MD, [facility] CPT-4: 82898 09/21/2015 ([id number]) 39482 EST. P ATIENT, LEVEL IV Diagnosis: HYPERLIPIDEMIA[ICD9: 272.4] Diagnosis: HYPOTHYROIDISM[ICD9: 244.9] Diagnosis: Need for pneumococcal vaccine[ICD9: V03.82] Disha Robbins MD, C CPT-4: 89681 07/26/2014 ([id number]) 97853 EST. P ATIENT, LEVEL IV Diagnosis: HYPERLIPIDEMIA[ICD9: 272.4] Diagnosis: HYPOTHYROIDISM[ICD9: 244.9] Diagnosis: DEPRESSIVE DISORDER NEC[ICD9: 311] Disha Robbins MD, [facility] CPT- 4: 29084 01/25/2014 ([id number]) 15672 EST. P ATIENT, LEVEL III Diagnosis: ACUTE PHARYNGITIS[ICD9: 462] Giovanna Robbins MD, [facility] CPT- 4: 27351 01/10/2014 ([id number]) 13051 EST. P ATIENT, LEVEL III Diagnosis: GENERALIZED ANXIETY DISEASE[ICD9: 300.02] Diagnosis: Ear pain[ICD9: 388.70] Disha Robbins MD, [facility] CPT-4: 07401 09/23/2013 ([id number]) 71461 EST. P ATIENT, LEVEL IV Diagnosis: BACTERIAL PNEUMONIA[ICD9: 482.9] Diagnosis: Encounter for long-term (current) use of other medications[ICD9: V58.69] Diagnosis: HYPOTHYROIDISM[ICD9: 244.9] Diagnosis: DEPRESSIVE DISORDER NEC[ICD9: 311] Disha Robbins MD, [facility] CPT- 4: 49530 09/09/2013 ([id number]) 16191 EST. 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 CPT-4: 92947 06/03/2013 ([id number]) 75819 EST. 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 CPT-4: 14390 12/31/2012 ([id number]) 08338 EST. P ATIENT, LEVEL IV Diagnosis: Renal insufficiency[ICD9: 593.9] Diagnosis: HYPERLIPIDEMIA[ICD9: 272.4] Diagnosis: DEPRESSIVE DISORDER NEC[ICD9: 311] Diagnosis: KIMANI (generalized anxiety disorder)[ICD9: 300.02] Disha Robbins MD, C CPT-4: 40988 10/01/2012 ([id number]) 23905 EST. P ATIENT, LEVEL IV Diagnosis: HYPERLIPIDEMIA[ICD9: 272.4] Diagnosis: DEPRESSIVE DISORDER NEC[ICD9: 311] Diagnosis: KIMANI (generalized anxiety disorder)[ICD9: 300.02] Disha Robbins MD, C CPT-4: 40012 09/03/2012 01490 EST. PATIENT, LEVEL IV Diagnosis: HYPOTHYROIDISM[ICD9: 244.9] Diagnosis: HYPERLIPIDEMIA[ICD9: 272.4] Diagnosis: ACUTE MAXILLARY SINUSITIS[ICD9: 461.0] Disha Robbins MD, [facility] CPT-4: 50933 06/26/2011 Plan of Care Planned Activity Notes [...] at home. 03/03/2018 Appointment: Disha Robbins WPtel: [facility] (15 min) Moderate 03/03/2018 Patient Education: Patient Medication Summary Completed 03/03/2018 Appointment: Disha Robbins WPtel: [address] [place], [place] [phone] (15 min) Moderate 02/03/2018 Visit Plan: AVMicaela - discussed with juan johnson patient and her - we will order an MRI of the brain. Pt has been advised that since the seizure she should not be driving and she should continue with Keppra as previously prescribed. 01/27/2018 App[facility]ment: [phone] [facility] (15 min) Moderate 01/27/2018 Patient Education: Patient Medication Summary Completed 01/27/2018 Care Plan: MRI BRAIN STEM W/O DYE Pending 01/27/2018 Visit Plan: Blood pressure low - re commended pt to increase the sodium in her diet. Tachycardia - no change in dose of toprol at this time. 10/13/2017 Appointment: [phone] [facility] (15 min) Moderate 10/13/2017 Patient Education: [...] at home. 08/07/2017 Appointment: Disha Robbins WPtel: [facility] (15 min) Moderate 08/07/2017 Patient Education: Patient Medication Summary Completed 08/07/2017 Visit Plan: Cat bite to arm - cellu litis - continue with augmentin - call if not improving. Advised pt to have animal control parts picker the stray cat that bit her. 05/27/2017 Appointment: D[facility] Robbins [facility]Ptel[facility] (15 min) Moderate 05/27/2017 Patient Education: Patient [...] home. 04/10/2017 Appointment: [phone] [facility] [place] (15 min) Moderate 04/10/2017 Patient Education: [...] 03/18/2017 Appointment: Disha Robbins WPtel: [phone] [facility] (15 min) Moderate 03/18/2017 Patient Education: Patient [...] worsen. 12/17/2016 Appointment: [phone] (30 min) Complex 12/17/2016 Patient Education: Patient [...] current medications. 09/17/2016 Appointment: [facility]bins [facility]Ptel[facility] (15 min) Moderate 09/17/2016 Patient Education: [...] current medications. 05/20/2016 Appointment: [facility]bins [facility] [phone] [facility] (15 min) Moderate 05/20/2016 Patient Education: Patient Medication Summary Completed 05/20/2016 Care Plan: Tsh Pending 05/20/2016 Care Plan: Free T4 Pending 05/20/2016 Care Plan: SCREENINGMAMMOGRAPHYDIGITAL [facility] : [id number] Pending 12/12/2015 Visit Plan: Medicare Exam - [...] 12/11/2015 Appointment: Tanna Marquez [facility] [phone] [facility] [facility] - Annual Wellness Visit 12/11/2015 [...] medications. 07/26/2014 Appointment: [facility] [phone] [facility] Follow up 07/26/2014 Patient Education: Patient [...] current medications. 01/25/2014 Appointment: Disha Robbins WPtel: [phone] [facility] [place] Follow up 01/25/2014 Patient Education: Patient [...] Completed 01/10/2014 Appointment: [facility] [phone] [facility] [place] Follow up 12/02/2013 Visit Plan: [...] current medications. 09/23/2013 Appointment: Disha Robbins WPtel: [phone] [facility] [place] Follow up 09/23/2013 Patient Education: Patient [...] current medications. 09/09/2013 Appointment: Disha Robbins WPtel: [facility] [place] [address] follow up 09/09/2013 Patient Education: Patient Medication [...] not improving. 06/03/2013 Appointment: Disha Robbins WPtel: [address] [place], [place] [phone] Follow up 06/03/2013 Patient Education: Patient Medication [...] clinic [facility]. 02/04/2013 Appointment: Disha Robbins WPtel: [facility] [facility] 02/04/2013 Patient Education: Patient Medication Summary Completed 02/04/2013 Appointment: Disha Robbins WPtel: [facility] Follow up 01/28/2013 Visit Plan: Extrapyramidal movement [...] of medications. 12/31/2012 Appointment: Disha Robbins WPtel: [facility] Follow up 12/31/2012 Patient Education: Patient Medication [...] changes. 10/01/2012 Appointment: Disha Robbins WPtel: [phone] [facility] Follow up 10/01/2012 Patient Education: Patient Medication [...] current medications. 09/03/2012 Appointment: Disha Robbins WPtel: [address] [place] [address] Follow up 09/03/2012 Patient Education: Patient Medication [...] time. 06/26/2011 Appointment: [phone] [facility] [place] Other 06/26/2011 Patient Education: Patient Medication Summary [...] her movements worsen again, call clinic [facility]. go to [facility] and get a flu [...] in blood pressure readings at home. . Blister of toe-aster ined today in [...] change in blood pressure readings at home. Friday take 1/2 of t he levaquin [...] in dose of toprol at this time. We will increase her Nicacin to 1000 [...] situational exposure. No change in current medications. start on Losartan - this is for [...] to assure normal liver response to medications. . Elevated Blood Pr essure - [...] based on previous levels of control. . Hypertension - wel l controlled - continue with current medications, continue with no added salt diet. Pt has been encouraged to exercise daily. The pt has been advised to call the office if there are any acute concerns about change in blood pressure readings at home. . Cerumen on Ear jet m - [...] improving. Advised pt to have animal control parts picker the stray cat that bit her. [...]
--- OUTSIDE RECORDS SUMMARY | 2019-11-16 09:01 | XMS REPORT | CCD ---
Author Author Nikole Robbins Organization Disha Robbins MD, [facility] Address [address] [place] [address] Phone Care Team Providers Care Athletic Coach Name Role Phone PP Unavailable CCM Unavailable Summary Purpose Interface Exchange Insurance Providers Payer name Policy type / Coverage type Covered republican ID Effective Begin Date Effective End Date WPS Medicare Part B Medicare Part B [id number] 2018 Unknown [employer] Medicare Part B [id number] Unknown Family history Son Diagnosis Age At [...] ntly unemployed 06/26/[address]: 804415531 Never smoker 06/26/[address]: 704039403 Never drinks alcohol 06/26/2011 Has the patient [...] Instructions olanzapine 2.5 mg ta blet RxNorm: 347399 TAKE 1 TABLET BY MOUT H ONCE DAILY 06/24/2018 No Stop Date Active fluoxetine 20 mg cap [place] RxNorm: 786173 TAKE 1 CAPSULE BY ANGELIQUE TH ONCE DAILY 05/14/2018 No Stop Date Active metoprolol tartrate 25 mg tablet RxNorm: 714062 1/2 Tablet(s) PO BID 05/07/2018 09/03/2018 Active olanzapine 2.5 mg ta blet RxNorm: 416907 TAKE ONE TABLET BY MO UTH ONCE DAILY 12/23/2017 06/23/2018 In active fluoxetine 20 mg cap [place] RxNorm: 620332 TAKE ONE CAPSULE BY M OUTH ONCE DAILY 11/14/2017 05/13/2018 In active lovastatin 20 mg tablet RxNorm: 986026 Tablet(s) TAKE ONE TABLET BY MOUTH AT BE DTIME 10/24/2017 10/18/2018 Ac tive KCL 20 meq RxNorm: 1 PO BID 10/13/2017 No S top Date Active niacin ER 500 mg tab let,extended release RxNorm: 196902 1 Tablet(s) PO QHS 10/13/2017 No Stop Date Active cefdinir 300 mg capsule RxNorm: 245548 1 Capsule(s) PO BID 09/30/2017 10/06/2017 Inactive cefdinir 300 mg capsule RxNorm: 387199 1 Capsule(s) PO BID 09/30/2017 09/29/2017 Inactive Zithromax Z-Yan 250 mg tablet RxNorm: 253897 1 Tablet(s) PO UD 09/30/2017 10/12/2017 Inactive z pack as directed lovastatin 20 mg tablet RxNorm: 781874 Tablet(s) TAKE ONE TABLET BY MOUTH AT BE DTIAK 09/10/2017 10/23/2017 Inactive Synthroid 75 mcg tablet RxNorm: 117074 TAKE ONE TABLET BY MOUTH ONCE DAILY 08/01/2017 No Stop Date Active olanzapine 2.5 mg ta blet RxNorm: 786272 TAKE ONE TABLET BY MO UTH ONCE DAILY 05/27/2017 11/22/2017 In active Zithromax Z-Yan 250 mg tablet RxNorm: 921150 1 Tablet(s) PO UD 04/29/2017 09/29/2017 Inactive z pack as directed fluoxetine 20 mg cap kamer[place] RxNorm: 726589 TAKE ONE CAPSULE BY M OUTH ONCE DAILY 04/28/2017 10/24/2017 In active lovastatin 20 mg tablet RxNorm: 571557 TAKE ONE TABLET BY MOUTH AT BEDTIME 04/28/2017 09/09/2017 In active Synthroid 75 mcg tablet RxNorm: 543551 TAKE ONE TABLET BY MOUTH ONCE DAILY 04/08/2017 07/31/2017 In active losartan 50 mg tablet RxNorm: 942173 1 Tablet(s) PO daily 03/20/2017 10/08/2017 Inactive losartan 50 mg tablet RxNorm: 329399 1 Tablet(s) PO daily 03/18/2017 03/19/2017 Inactive olanzapine 2.5 mg ta blet RxNorm: 008017 TAKE ONE TABLET BY MO UTH ONCE DAILY 02/28/2017 05/26/2017 In active Kenalog 40 mg/mL k[place]ie pension for injection RxNorm: 2782673 Milliliter(s) Inj 12/20/2016 12/20/2016 In active ceftriaxone 500 mg s olution for injection RxNorm: 7250553 1 Milliliter(s) Inj 12/17/2016 12/17/2016 In active Zithromax Z-Yan 250 mg tablet RxNorm: 370368 1 Tablet(s) PO UD 12/17/2016 12/21/2016 Inactive zpack Kenalog 40 mg/mL k[place]ie pension for injection RxNorm: 5638265 1 Milliliter(s) Inj 12/17/2016 12/17/2016 In active Synthroid 75 mcg tablet RxNorm: 566718 TAKE ONE TABLET BY MOUTH ONCE DAILY 11/08/2016 04/06/2017 In active lovastatin 20 mg tablet RxNorm: 678425 TAKE ONE TABLET BY MOUTH AT BEDTIME 10/28/2016 04/25/2017 In active fluoxetine 20 mg cap kamer[place] RxNorm: 639154 TAKE ONE CAPSULE BY OUT ONCE DAILY 10/28/2016 04/25/2017 In active Synthroid 75 mcg tablet RxNorm: 892910 TAKE ONE TABLET BY MOUTH ONCE DAILY 10/08/2016 11/06/2016 In active Zithromax Z-Yan 250 mg tablet RxNorm: 821155 1 Tablet(s) PO UD 07/29/2016 09/16/2016 Inactive zpack as directed olanzapine 2.5 mg ta blet RxNorm: 513264 TAKE ONE TABLET BY MO UTH ONCE DAILY 07/29/2016 06/23/2018 In active lovastatin 20 mg tablet RxNorm: 656629 TAKE ONE TABLET BY MOUTH AT BEDTIME 07/02/2016 10/27/2016 In active olanzapine 2.5 mg ta blet RxNorm: 19990922 TAKE ONE TABLET BY MO UTH ONCE DAILY 04/29/2016 09/16/2016 In active olanzapine 2.5 mg ta blet RxNorm: 19990922 TAKE ONE TABLET BY MO UTH ONCE DAILY 04/29/2016 04/28/2016 In active fluoxetine 20 mg cap kameron RxNorm: 480610 TAKE ONE CAPSULE BY M OUTH ONCE DAILY 03/26/2016 09/21/2016 In active olanzapine 2.5 mg ta blet RxNorm: 910124 Tablet(s) TAKE ONE TA BLET BY MOUTH ONCE DAILY 01/31/2016 03/30/2016 Inactive olanzapine 2.5 mg ta blet RxNorm: 19990922 Tablet(s) TAKE ONE TA BLET BY MOUTH ONCE DAILY 01/25/2016 01/30/2016 Inactive lovastatin 20 mg tablet RxNorm: 705806 TAKE ONE TABLET BY MOUTH AT BEDTIME 12/28/2015 06/24/2016 In active fluoxetine 20 mg cap kameron RxNorm: 353719 Capsule(s) TAKE ONE C APSULE BY MOUTH ONCE DAILY 12/28/2015 09/16/2016 Inactive olanzapine 2.5 mg ta blet RxNorm: 238487 TAKE ONE TABLET BY MO UTH ONCE DAILY 11/24/2015 01/22/2016 In active mupirocin 2 % topica l ointment RxNorm: 134967 1 Application TOP BID 10/06/2015 10/12/2015 Inactive Synthroid 75 mcg tablet RxNorm: 799906 Tablet(s) PO daily TAKE ONE TABLET BY MO UTH EVERY DAY 09/18/2015 09/11/2016 Inactive [SAVINGS FOR NON-COVERED DR HAMMOND -- BIN:[id number], PCN: ASPROD1, Group: XXXXX, ID# [id number], Questions: . THIS IS NOT INSURANCE.] Synthroid 75 mcg tablet RxNorm: 605783 Tablet(s) PO daily TAKE ONE TABLET BY MO UTH EVERY DAY 09/15/2015 09/17/2015 Inactive [SAVINGS FOR NON-COVERED DR MOCKS -- BIN:646742, PCN: ASPROD1, Group: XXXXX, ID# [id number], Questions: . THIS IS NOT INSURANCE.] Synthroid 75 mcg tablet RxNorm: 584034 Tablet(s) TAKE ONE TABLET BY MOUTH EVERY DAY 09/14/2015 09/14/2015 Inactive [SAVINGS FOR NON-COVERED DRUGS -- BIN:00 3585, PCN: ASPROD1, Group: XXXXX, ID# [id number], Questions: . THIS IS NOT INSURANCE.] fluoxetine 20 mg cap kameron RxNorm: 562392 TAKE ONE CAPSULE BY M OUTH ONCE DAILY 08/24/2015 12/21/2015 In active lovastatin 20 mg tablet RxNorm: 632376 1 Tablet(s) PO QHS TAKE ONE TABLET BY MO UTH AT BEDTIME 05/29/2015 12/24/2015 Inactive [SAVINGS FOR NON-COVERED DR UGS -- BIN:[id number], PCN: ASPROD1, Group: XXXXX, ID# XXXXXXX, Questions: . THIS IS NOT INSURANCE.] olanzapine 2.5 mg ta blet RxNorm: 618742 TAKE ONE TABLET BY MO UTH ONCE DAILY 05/25/2015 11/20/2015 In active olanzapine 2.5 mg ta blet RxNorm: 879623 1 Tablet(s) daily PATRIZIA E ONE TABLET BY MOUTH EVERY DAY 02/27/2015 05/24/2015 Inactive [SAVINGS FOR NON-COVERED DR UGS -- BIN:816328, PCN: ASPROD1, Group: XXXXX, ID# [id number], Questions: . THIS IS NOT INSURANCE.] fluoxetine 20 mg cap kameron RxNorm: 376125 Capsule(s) TAKE ONE C APSULE BY MOUTH EVERY DAY 02/27/2015 08/23/2015 Inactive prednisone 20 mg tablet RxNorm: 371235 1 Tablet(s) PO BID 01/16/2015 01/18/2015 Inactive prednisone 20 mg tablet RxNorm: 255016 1 Tablet(s) PO BID 01/16/2015 01/15/2015 Inactive Zithromax Z-Yan 250 mg tablet RxNorm: 439072 1 Tablet(s) PO as doc tor directed 01/16/2015 07/28/2016 In active zpack as directed olanzapine 2.5 mg ta blet RxNorm: 473219 1 Tablet(s) daily PATRIZIA E ONE TABLET BY MOUTH EVERY DAY 11/24/2014 02/21/2015 Inactive [SAVINGS FOR NON-COVERED DR UGS -- BIN:478113, PCN: ASPROD1, Group: XXXXX, ID# [id number], Questions: . THIS IS NOT INSURANCE.] lovastatin 20 mg tablet RxNorm: 780794 1 Tablet(s) PO QHS TAKE ONE TABLET BY MO UTH AT BEDTIME 10/26/2014 05/23/2015 Inactive [SAVINGS FOR NON-COVERED DR UGS -- BIN:660894, PCN: ASPROD1, Group: XXXXX, ID# XXXXXXX, Questions: . THIS IS NOT INSURANCE.] Synthroid 75 mcg tablet RxNorm: 409680 1 Tablet(s) PO daily TAKE ONE TABLET BY MOUTH EVERY DAY 09/19/2014 12/17/2014 Inactive Synthroid 75 mcg tablet RxNorm: 909386 Tablet(s) TAKE ONE TABLET BY MOUTH EVERY DAY 09/19/2014 09/13/2015 Inactive [SAVINGS FOR NON-COVERED DRUGS -- BIN:00 3585, PCN: ASPROD1, Group: XXXXX, ID# XXXXXXX, Questions: . THIS IS NOT INSURANCE.] fluoxetine 20 mg cap kameron RxNorm: 103865 TAKE ONE CAPSULE BY M OUTH EVERY DAY 08/04/2014 01/30/2015 In active fluoxetine 20 mg cap kameron RxNorm: 948574 1 Capsule(s) PO daily TAKE ONE CAPSULE BY MOUTH EVERY DAY 08/02/2014 08/03/2014 Inactive [SAVINGS FOR UNINSURED ERNIE ENTS -- BIN:628270, PCN: ASPROD1, Group: [id number], ID# [id number], Process claim through [employer], for questions: . THIS IS NOT INSURANCE.] lovastatin 20 mg tablet RxNorm: 886823 TAKE ONE TABLET BY MOUTH AT BEDTIME 07/25/2014 10/22/2014 In active olanzapine 2.5 mg ta blet RxNorm: 19990922 Tablet(s) TAKE ONE TA BLET BY MOUTH EVERY DAY 07/19/2014 07/18/2014 Inactive olanzapine 2.5 mg ta blet RxNorm: 19990922 TAKE ONE TABLET BY MO UTH EVERY DAY 07/19/2014 10/16/2014 In active Synthroid 75 mcg tablet RxNorm: 541951 1 Tablet(s) PO daily TAKE ONE TABLET BY MOUTH EVERY DAY 06/20/2014 06/19/2014 Inactive Synthroid 75 mcg tablet RxNorm: 251588 TAKE ONE TABLET BY MOUTH EVERY DAY 06/20/2014 09/18/2014 In active lovastatin 20 mg tablet RxNorm: 320389 TAKE ONE TABLET BY MOUTH AT BEDTIME 04/22/2014 07/20/2014 In active olanzapine 2.5 mg ta blet RxNorm: 254689 TAKE ONE TABLET BY MO UTH EVERY DAY 04/21/2014 07/18/2014 In active Synthroid 75 mcg tablet RxNorm: 737889 TAKE ONE TABLET BY MOUTH EVERY DAY 03/22/2014 06/19/2014 In active fluoxetine 20 mg cap k[place] RxNorm: 128110 TAKE ONE CAPSULE BY M OUTH EVERY DAY 02/02/2014 07/31/2014 In active lovastatin 20 mg tablet RxNorm: 506692 TAKE ONE TABLET BY MOUTH AT BEDTIME 01/20/2014 04/19/2014 In active olanzapine 2.5 mg ta blet RxNorm: 416908 TAKE ONE TABLET BY MO UTH EVERY DAY 01/14/2014 04/13/2014 In active amoxicillin 500 mg t ablet RxNorm: 321173 1 Tablet(s) PO TID 01/10/2014 01/16/2014 Inactive Rocephin 500 mg solu tion for injection RxNorm: 120042 Inj 01/1001/10/2014 Inactive Synthroid 75 mcg tablet RxNorm: 689973 Tablet(s) PO TAKE ONE TABLET BY MOUTH EV 12/27/2013 03/21/2014 Inactive lovastatin 20 mg tablet RxNorm: 030604 Tablet(s) PO TAKE ONE TABLET BY MOUTH AT BEDTIME 12/20/2013 01/19/2014 Inactive olanzapine 2.5 mg ta blet RxNorm: 680257 Tablet(s) PO TAKE ONE TABLET BY MOUTH EVERY DAY 12/17/2013 01/13/2014 Inactive Synthroid 75 mcg tablet RxNorm: 113977 Tablet(s) PO TAKE ONE TABLET BY MOUTH EV FERCHO DAY 11/22/2013 12/26/2013 Inactive lovastatin 20 mg tablet RxNorm: 520229 Tablet(s) PO TAKE ONE TABLET BY MOUTH AT BEDTIME 11/15/2013 12/19/2013 Inactive olanzapine 2.5 mg ta blet RxNorm: 721756 Tablet(s) PO TAKE ONE TABLET BY MOUTH EVERY DAY 11/15/2013 12/16/2013 Inactive Synthroid 75 mcg tablet RxNorm: 890426 Tablet(s) PO TAKE ONE TABLET BY MOUTH EV FERCHO DAY 10/25/2013 11/21/2013 Inactive lovastatin 20 mg tablet RxNorm: 032427 Tablet(s) PO TAKE ONE TABLET BY MOUTH AT BEDTIME 10/18/2013 11/14/2013 Inactive Zithromax 250 mg tablet RxNorm: 641133 Tablet(s) PO 08/30/2013 07/26/2014 Inactive zpac k as directed Synthroid 75 mcg tablet RxNorm: 844071 Tablet(s) PO TAKE ONE TABLET BY MOUTH EV FERCHO DAY 05/24/2013 10/24/2013 Inactive lovastatin 20 mg tablet RxNorm: 108868 Tablet(s) PO TAKE ONE TABLET BY MOUTH AT BEDTIME 04/19/2013 10/17/2013 Inactive olanzapine 2.5 mg ta blet RxNorm: 331370 1 Tablet(s) PO 02/04/2013 09/01/2013 Inactive fluoxetine 20 mg cap kameron RxNorm: 822674 Capsule(s) PO TAKE ON E CAPSULE BY MOUTH EVERY DAY 01/08/2013 02/01/2014 Inactive olanzapine 5 mg tablet RxNorm: 752780 1/2 Tablet(s) PO daily zyprexa 12/31/2012 02/03/2013 In active Synthroid 75 mcg tablet RxNorm: 548381 1 Tablet(s) PO daily 09/29/2012 03/27/2013 Inactive Vitamin D2 50,000 un it capsule RxNorm: 022210 1 Capsule(s) PO QW 09/29/2012 09/16/2016 Inactive one weekly x 8 weeks then 1000units dorcas y thereafter Synthroid 75 mcg tablet RxNorm: 174486 1 Tablet(s) PO daily 09/29/2012 09/28/2012 Inactive lovastatin 20 mg tablet RxNorm: 331527 Tablet(s) PO TAKE ONE TABLET BY MOUTH AT BEDTIME 09/21/2012 04/18/2013 Inactive fluoxetine 20 mg cap kameron RxNorm: 723675 1 Capsule(s) PO daily TAKE ONE CAPSULE BY MOUTH EVERY DAY 09/16/2012 01/07/2013 Inactive Synthroid 50 mcg tablet RxNorm: 604837 1 Tablet(s) PO daily 09/14/2012 12/31/2012 Inactive brand name only fluoxetine 20 mg cap kameron RxNorm: 589466 Capsule(s) PO TAKE ON E CAPSULE BY MOUTH EVERY DAY 09/07/2012 09/15/2012 Inactive Synthroid 50 mcg tablet RxNorm: 649035 1 Tablet(s) PO daily 09/07/2012 09/13/2012 Inactive brand name only niacin ER 500 mg tab let,extended release RxNorm: 689266 2 Tablet(s) PO daily 09/03/2012 10/12/2017 In active lovastatin 20 mg tablet RxNorm: 052803 1 Tablet(s) PO QHS TAKE ONE TABLET BY MO UTH AT BEDTIME 08/26/2012 09/20/2012 Inactive Zithromax Z-Yan 250 mg tablet RxNorm: 150406 Tablet(s) PO UD 08/13/2012 12/31/2012 Inactive fluoxetine 20 mg cap kameron RxNorm: 491974 Capsule(s) PO 05/11/2012 09/06/2012 Inactive TAKE ONE CAPSULE BY MOUTH EVERY DAY fluoxetine 20 mg cap kameron RxNorm: 025062 1 Capsule(s) PO daily 01/06/2012 05/04/2012 Inactive Zyprexa 5 mg Tab RxNorm: 472298 Tablet(s) PO 01/06/2012 12/31/2012 Inactive TAKE ONE TABLET BY MOUTH EVERY DAY lovastatin 20 mg tablet RxNorm: 536714 Tablet(s) PO 12/24/2011 08/26/2012 Inactive TAKE ONE TABLET BY MOUTH AT BEDTIME Rocephin 500 mg Solu tion for Injection RxNorm: 137217 Inj 06/2612/31/2012 Inactive Keppra 500 mg tablet RxNorm: 083246 1 Tablet(s) PO BID No Start Date Active omeprazole 20 mg Cap , Delayed Release RxNorm: 266986 1 Capsule(s) PO BID No Start Date Active oxycodone-acetaminop hen 5 mg-325 mg Tab RxNorm: 2287719 1 Tablet(s) PO Q4 VA N No Start Date Active acyclovir 800 mg tablet RxNorm: 778389 1 Tablet(s) PO daily No Start Date Active letrozole 2.5 mg Tab RxNorm: 380265 1 Tablet(s) PO daily No Start Date Active multivitamin Cap RxNorm: 1 Capsule(s) PO daily No Start Date Active Aspirin Low Dose 81 mg tablet,delayed release RxNorm: 320828 1 Tablet(s) PO daily No Start Date Active Calcium 600 + D(3) 6 00 mg (1,500)-200 unit Tab RxNorm: 807763 1 Tablet(s) PO daily No Start Date Active Vitamin B-12 1,000 m cg tablet RxNorm: 537157 1 Tablet(s) PO daily No Start Date Active ferrous sulfate 325 mg (65 mg iron) tablet RxNorm: 160009 1 Tablet(s) PO daily No Start Date Active KCL 20 meq RxNorm: 1 PO daily No Start Date 10/12/2017 Inactive Zyprexa 5 mg Tab RxNorm: 395976 1 Tablet(s) PO daily No Start Date 01/05/2012 Inactive Zithromax Z-Yan 250 mg tablet RxNorm: 161425 Tablet(s) PO UD No Start Date 08/12/2012 Inactive Zithromax Z-Yan 250 mg tablet RxNorm: 753350 1 Tablet(s) PO UD No Start Date 04/28/2017 Inactive z pack as directed niacin ER 500 mg tab let,extended release RxNorm: 544356 1 Tablet(s) PO daily No Start Date 09/02/2012 Inactive Vitamin D2 50,000 un it capsule RxNorm: 878035 1 Capsule(s) PO QW No Start Date 09/28/2012 Inactive one weekly x 8 weeks then 1000units dorcas y thereafter Synthroid 50 mcg tablet RxNorm: 052824 1 Tablet(s) PO daily No Start Date 09/06/2012 Inactive brand name only acyclovir 400 mg Tab RxNorm: 154851 1 Tablet(s) PO BID No Start Date 09/15/2012 Inactive Zithromax Z-Yan 250 mg tablet RxNorm: 613411 1 Tablet(s) PO as doc tor directed No Start Date 01/15/2015 Inactive zpack as directed metoprolol tartrate 25 mg tablet RxNorm: 793691 1/2 Tablet(s) PO BID No Start Date 05/06/2018 Inactive fluoxetine 20 mg Tab RxNorm: 654484 1 Tablet(s) PO daily No Start Date 07/26/2014 Inactive REVLIMID 10 mg Cap RxNorm: 440834 1 Capsule(s) PO daily No Start Date 12/31/2012 Inactive lovastatin 20 mg Tab RxNorm: 879766 1 Tablet(s) PO QHS No Start Date 12/23/2011 Inactive aspirin 81 mg Cap, D elayed Release RxNorm: 086098 1 Capsule(s) PO daily No Start Date 12/30/2012 Inactive olanzapine 5 mg tablet RxNorm: 181996 1 Tablet(s) PO daily zyprexa No Start Date 12/30/2012 Inactive Zithromax 250 mg tablet RxNorm: 325400 Tablet(s) PO No Start Date 08/29/2013 Inactive zpac k as directed levofloxacin 500 mg Tab RxNorm: 257236 1 Tablet(s) PO daily No Start Date 06/26/2011 Inactive levothyroxine 50 mcg Tab RxNorm: 914074 1 Tablet(s) PO daily No Start Date 12/31/2012 Inactive dexamethasone 4 mg Tab RxNorm: 235485 2 Tablet(s) PO weekly No Start Date 12/31/2012 Inactive Medication Administered Medication Codes Instruc tions Start Date Status Kenalog 40 mg/mL suspension for injection RxNorm: 1675961 Milliliter 12/20/2016 No longer Active Kenalog 40 mg/mL suspension for injection RxNorm: 9336428 1Milliliter 12/17/2016 N o longer Active ceftriaxone 500 mg solution for injection RxNorm: 2424703 1Milliliter 12/17/2016 N o longer Active Rocephin 500 mg solution for injection RxNorm: 509369 01/10/2014 No longer A ctive Immunizations Vaccine [...] Item Item Code Result Date Free T4 [id number] FREE T4 1.06 ng/dL 11/18/2016 Tsh Ord6 [...] 33.2 pg 10/22/2016 Cbc With Differential Ord2 [place]% 36.7 % 10/22/2016 Cbc With Differential Ord2 [...] 0.51 K/ul 10/22/2016 Cbc With Differential Ord2 [place] ABS# 0.6 K/ul 10/22/2016 Cbc With Differential Ord2 Eos ABS# 0.0 K/ul 10/22/2016 Cbc With Differential Ord2 Baso ABS# 0.0 K/ul 10/22/2016 Lipid Ord30 CHOL 99 mg/dL 10/22/2016 Lipid Ord30 HDL 38.0 mg/dl 10/22/2016 Lipid Ord30 TRIG 102 mg/dL 10/22/2016 Lipid Ord30 LDL 41 mg/dL 10/22/2016 Lipid Ord30 C/HDL 2.6 Ratio 10/22/2016 Comp Metabolic Gsq462 NA 135 mEq/L 10/22/2016 Comp Metabolic Uhr271 K 4.5 mEq/L 10/22/2016 Comp Metabolic Ojm892 CL 102 mEq/L 10/22/2016 Comp Metabolic Jzv041 CO2 20.0 mEq/L 10/22/2016 Comp Metabolic Cuz998 AN ION GAP 18 10/22/2016 Comp Metabolic Tie377 GL UCOSE 108 mg/dL 10/22/2016 Comp Metabolic Jii330 Cr eat 1.1 mg/dL 10/22/2016 Comp Metabolic Hay891 eG FR 53 ml/min/1.73m2 10/22 Comp Metabolic Rap739 BUN 17 mg/dL 10/22/2016 Comp Metabolic Ccr619 B/ C Ratio 15.7 Ratio 10/22/2016 Comp Metabolic Vqj452 CA LCIUM 8.9 mg/dL 10/22/2016 Comp Metabolic Zem408 AL K PHOS 65 U/L 10/22/2016 Comp Metabolic Fur721 T(SGOT) 14 U/L 10/22/2016 Comp Metabolic Cfg256 AL T(SGPT) 19 U/L 10/22/2016 Comp Metabolic Sjz225 BI LI T 0.8 mg/dL 10/22/2016 Comp Metabolic Dkd995 AL BUMIN 3.5 g/dL 10/22/2016 Comp Metabolic Oqz279 TP RO 7.0 g/dL 10/22/2016 Comp Metabolic Czz810 GL OB 3.5 g/dL 10/22/2016 Comp Metabolic Fgb495 A/ G Ratio 1.0 Ratio 10/22/2016 Comp Metabolic Yus421 Os mo 272 mOsmo 10/22/2016 Manual Differential Ord52 D-Neutr 38 % 10/22/2016 Manual Differential Ord52 D-Bands 15 % 10/22/2016 Manual Differential Ord52 D-Lymph 37 % 10/22/2016 Manual Differential Ord52 D-Eos 4 % 10/22/2016 Manual Differential Ord52 D-[place] 3 % 10/22/2016 Manual Differential Ord52 D-Aty Lymp 3 % 10/22/2016 Free T4 Nio075 FREE T4 1.38 ng/dL 10/22/2016 Tsh Ord6 hTSH II 2.05 uIU/mL 10/22/2016 Free T4 Fxr909 FREE T4 0.85 ng/dL 05/20/2016 Tsh Ord6 hTSH II 0.63 uIU/mL 05/20/2016 CHEM 14 0921266 AST 16 U/L 09/09/2013 CHEM 14 8959635 ALT 20 IU/L 09/09/2013 CHEM 14 3158776 BUN 17 MG/DL 09/09/2013 CHEM 14 4320564 ALBUMIN 3.6 GM/DL 09/09/2013 CHEM 14 3159085 CHLORIDE 102 MMOL/L 09/09/2013 CHEM 14 1698576 BILI TOT 0.3 MG/DL 09/09/2013 CHEM 14 2344950 ALK PHOS 88 U/L 09/09/2013 CHEM 14 8711603 SODIUM 138 MMOL/L 09/09/2013 CHEM 14 6422528 CREATINI NE 1.10 MG/DL 09/09/2013 CHEM 14 5264552 CALCIUM 9.0 MG/DL 09/09/2013 CHEM 14 8788941 POTASSIUM 4.8 MMOL/L 09/09/2013 CHEM 14 20280123 PROT TOT 6.7 GM/DL 09/09/2013 CHEM 14 9023785 GLUCOSE 113 MG/DL 09/09/2013 CHEM 14 3825876 BICARB 27 MMOL/L 09/09/2013 CHEM 14 8213979 ANION GAP 9 MEQ/L 09/09/2013 GFR CALC 5853139 GFR AA 60.0L ML/MIN 09/09/2013 GFR CALC 9317747 GFR NON -AA 50.0L ML/MIN 4 Review [...] No lymph node enlargement/mass 01/25/2014 Psychiatric anxiety 0702/2014 Psychiatric depression 0 01/25/2014 Constitutional recent illness [...] developed 02/04/2013 None Full Exam - General 1995 Constitutional general appearance Overall: in no acute distress 02/04/2013 None Full Exam - General 1995 Constitutional general appearance Overall: well nourished 02/04/2013 [...] rate 12/31/2012 None Full Exam - General 1995 Cardiovascular extremities Overall: no clubbing 12/31/2012 None [...] developed 10/01/2012 None Full Exam - General 1995 [...] Procedure Codes Date THER/PROPH/DIAG INJ SC/IM CPT-4: 26412 12/20/2016 TRIAMCINOLONE ACET I [place] NOS CPT-4: J3301 12/20/2016 TRIAMCINOLONE ACET I [place] NOS CPT-4: J3301 12/17/2016 ROCEPHIN, PER 250 MG CPT-4: J0696 12/17/2016 PPPS, SUBSEQ VISIT CPT- 4: G0439 12/11/2015 ADMIN PNEUMOCOCCAL V ACCINE Assigned to/Merissa Dupont CT: [id number] CPT-4: [id number] 07/26/2014 Pneumococcal Polysac charide Vaccine, 23-Valent, Ad CPT-4: 22572 07/26/2014 ROCEPHIN, PER 250 MG CPT-4: J0696 01/10/2014 ROUTINE VENIPUNCTURE CPT-4: 79893 09/09/2013 PRESCRIP TRANSMIT A ERX SY CPT-4: G8553 02/04/2013 PRESCRIP TRANSMIT A ERX SY CPT-4: G8553 12/31/2012 THER/PROPH/DIAG INJ SC/IM CPT-4: 69304 06/26/2011 ROCEPHIN, PER 250 MG CPT-4: J0696 06/26/2011 Vital Signs Date Vital 06/30/2018 Blood Pressure 1: 120/80 Code: 8480-6 BMI: 28.2 Code: 06329-6 Heart Rate 1: 100 bpm Height: 5'1" SpO2: 94% Weight: 149 lbs 03/03/2018 Blood Pressure 1: 122/72 Code: 8480-6 BMI: 28.2 Code: 16370-5 Heart Rate 1: 100 bpm Height: 5'1" SpO2: 94% Weight: 149 lbs 01/27/2018 Blood Pressure 1: 112/70 Code: 8480-6 BMI: 27.8 Code: 41925-9 Heart Rate 1: 94 bpm Height: 5'1" SpO2: 94% Weight: 147 lbs 10/13/2017 Blood Pressure 1: 96/72 Code: 8480-6 BMI: 27.8 Code: 67693-5 Heart Rate 1: 106 bpm Height: 5'1" SpO2: 91% Weight: 147 lbs 08/07/2017 Blood Pressure 1: 120/80 Code: 8480-6 BMI: 29.7 Code: 54794-4 Heart Rate 1: 95 bpm Height: 5'1" SpO2: 94% Weight: 157 lbs 05/27/2017 Blood Pressure 1: 144/88 Code: 8480-6 BMI: 29.3 Code: 05107-6 Heart Rate 1: 94 bpm Height: 5'1" SpO2: 96% Weight: 155 lbs 04/10/2017 Blood Pressure 1: 140/88 Code: 8480-6 Blood Pressure 1: 126/78 Code: 8480-6 BMI: 28.5 Code: 93792-8 Heart Rate 1: 94 bpm Height: 5'1" SpO2: 96% Weight: 151 lbs 03/25/2017 Blood Pressure 1: 120/74 Code: 8480-6 03/18/2017 Blood Pressure 1: 150/98 Code: 8480-6 BMI: 28.6 Code: 78909-2 Heart Rate 1: 114 bpm Height: 5'1" SpO2: 96% Weight: 151 lbs 8 oz 12/17/2016 Blood Pressure 1: 146/86 Code: 8480-6 BMI: 26.1 Code: 68445-2 Heart Rate 1: 94 bpm Height: 5'1" SpO2: 95% Temperature: 36.1 (C ) / 97.0 (F) Weight: 138 lbs 09/17/2016 Blood Pressure 1: 148/88 Code: 8480-6 BMI: 26.5 Code: 80801-1 Heart Rate 1: 86 bpm Height: 5'1" SpO2: 93% Weight: 140 lbs 8 oz 05/20/2016 Blood Pressure 1: 128/82 Code: 8480-6 BMI: 26.3 Code: 56359-8 Heart Rate 1: 99 bpm Height: 5'1" SpO2: 92% Weight: 139 lbs 12/11/2015 Blood Pressure 1: 138/84 Code: 8480-6 BMI: 28.3 Code: 10536-9 Heart Rate 1: 95 bpm Height: 5'1" SpO2: 97% Waist Measure (cm): 89 cm Weight: 150 lbs 10/06/2015 Blood Pressure 1: 128/78 Code: 8480-6 BMI: 28.0 Code: 19202-8 Heart Rate 1: 94 bpm Height: 5'1" SpO2: 96% Weight: 148 lbs 09/21/2015 Blood Pressure 1: 126/94 Code: 8480-6 Blood Pressure 1: 152/78 Code: 8480-6 BMI: 28.0 Code: 84957-1 Heart Rate 1: 104 bpm Height: 5'1" SpO2: 98% Weight: 148 lbs 07/26/2014 Blood Pressure 1: 110/68 Code: 8480-6 BMI: 28.7 Code: 62060-0 Heart Rate 1: 98 bpm Height: 5'1" Weight: 152 lbs 01/25/2014 Blood Pressure 1: 120/78 Code: 8480-6 BMI: 29.3 Code: 47762-5 Heart Rate 1: 104 bpm Height: 5'1" Weight: 155 lbs 01/10/2014 Blood Pressure 1: 138/88 Code: 8480-6 Temperature: 37.1 (C) / 98.7 (F) Weight: 156 lbs 09/23/2013 Blood Pressure 1: 128/78 Code: 8480-6 BMI: 28.9 Code: 26624-4 Heart Rate 1: 88 bpm Height: 5'1" Weight: 153 lbs 09/09/2013 Blood Pressure 1: 110/68 Code: 8480-6 BMI: 28.5 Code: 48605-1 Heart Rate 1: 90 bpm Height: 5'1" SpO2: 90% Weight: 151 lbs 06/03/2013 Blood Pressure 1: 132/82 Code: 8480-6 BMI: 28.9 Code: 04962-5 Heart Rate 1: 88 bpm Height: 5'1" Weight: 153 lbs 02/04/2013 Blood Pressure 1: 140/90 Code: 8480-6 BMI: 29.3 Code: 18133-2 Heart Rate 1: 88 bpm Height: 5'1" Weight: 155 lbs 12/31/2012 Blood Pressure 1: 102/76 Code: 8480-6 BMI: 29.6 Code: 50084-5 Heart Rate 1: 112 bpm Height: 5'1" Weight: 156 lbs 8 oz 10/01/2012 Blood Pressure 1: 116/78 Code: 8480-6 BMI: 29.0 Code: 48382-9 Height: 5'2" Weight: 156 lbs 09/03/2012 Blood Pressure 1: 132/88 Code: 8480-6 Heart Rate 1: 88 bpm Weight: 154 lbs 8 oz 06/26/2011 Blood Pressure 1: 82/58 Code: 8480-6 BMI: 27.5 Code: 85578-7 Heart Rate 1: 80 bpm Height: 5'1" [...] ciated factors 06/30/2018 None hypertension Quality mily parra hypertension 03/03/2018 None hypertension Onset and Resolution [...] with movement 05/27/2017 None hypertension Quality mily aida hypertension 04/10/2017 None hypertension Onset and Resolution [...] of the thyroid 03/18/2017 None hypothyroid Quality outreach specialist dejah 03/18/2017 None hypothyroid Onset and Resolution [...] Exacerbating Factors diet 09/17/2016 None hypothyroid Quality outreach specialist dejah 09/17/2016 None hypothyroid Location at the [...] Alleviating Factors medication 12/31/2012 None hypothyroid Quality outreach specialist dejah 12/31/2012 None hyperlipidemia Onset and Resolution [...] Family History hyperlipidemia 09/03/2012 None hypothyroid Quality outreach specialist dejah 06/26/2011 None cough Location in the yessi ng 06/26/2011 None cough Onset and Resolution sudden in onset 06/26/2011 states dgt gave her a cold cough Onset and [...] Encounters Encounter Performer Loca tion Codes Date ([id number]) 03547 EST. P ATIENT, LEVEL III Diagnosis: Essential (primary) hypertension[ICD10: I10] Giovanna Robbins MD, [facility] CPT-4: 18366 06/30/2018 ([id number]) 67643 EST. P ATIENT, LEVEL III Diagnosis: Essential (primary) hypertension[ICD10: I10] Disha Robbins MD, [facility] CPT-4: 58130 03/03/2018 ([id number]) 16594 EST. 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 P ATIENT, LEVEL III Diagnosis: Other hypotension[ICD10: I95.89] Diagnosis: Ventricular tachycardia[ICD10: I47.2] Disha Robbins MD, [facility] CPT-4: 19964 10/13/2017 ([id number]) 54990 EST. P ATIENT, LEVEL III Diagnosis: Essential (primary) hypertension[ICD10: I10] Disha Robbins MD, [facility] CPT-4: 53103 08/07/2017 ([id number]) 75644 EST. P ATIENT, LEVEL III Diagnosis: Open bite of left upper arm, initial encounter[ICD10: S41.152A] Disha Robbins MD, [facility] CPT-4: 72524 05/27/2017 ([id number]) 23973 EST. P ATIENT, LEVEL III Diagnosis: Essential (primary) hypertension[ICD10: I10] Disha Robbins MD, [facility] CPT-4: 12815 04/10/2017 ([id number]) Miscellaneou s no charge Diagnosis: Essential (primary) hypertension[ICD10: I10] Tanna Robbins MD, [facility] CPT-4: 25219 03/25/2017 ([id number]) 68069 EST. P ATIENT, LEVEL IV Diagnosis: Essential (primary) hypertension[ICD10: I10] Diagnosis: Atrophy of thyroid (acquired)[ICD10: E03.4] Diagnosis: Mixed hyperlipidemia[ICD10: E78.2] Disha Robbins MD, [facility] CPT- 4: 59278 03/18/2017 ([id number]) 67685 EST. P ATIENT, LEVEL III Diagnosis: Cough[ICD10: R05] Diagnosis: Acute bronchitis, unspecified[ICD10: J20.9] Giovanna Robbins MD, [facility] CPT-4: 65336 12/17/2016 ([id number]) 48712 EST. P ATIENT, LEVEL IV Diagnosis: Atrophy of thyroid (acquired)[ICD10: E03.4] Diagnosis: Mixed hyperlipidemia[ICD10: E78.2] Diagnosis: Generalized anxiety disorder[ICD10: F41.1] Disha Robbins MD, [facility] CPT-4: 05291 09/17/2016 ([id number]) 60005 EST. P ATIENT, LEVEL III Diagnosis: Atrophy of thyroid (acquired)[ICD10: E03.4] Diagnosis: Generalized anxiety disorder[ICD10: F41.1] Disha Robbins MD, [facility] CPT-4: 71205 05/20/2016 35857 EST. PATIENT, LEVEL II Diagnosis: Blister (nonthermal), right great toe, initial encounter[ICD10: S90.421A] Giovanna Robbins MD, [facility] CPT-4: 35797 10/06/2015 ([id number]) 09742 EST. P ATIENT, LEVEL IV Diagnosis: Elevated blood-pressure reading, without diagnosis of hypertension[ICD10: R03.0] Diagnosis: Mixed hyperlipidemia[ICD10: E78.2] Diagnosis: Hypothyroidism, unspecified[ICD10: E03.9] Giovanna Robbins MD, [facility] CPT-4: 14245 09/21/2015 ([id number]) 58131 EST. P ATIENT, LEVEL IV Diagnosis: HYPERLIPIDEMIA[ICD9: 272.4] Diagnosis: HYPOTHYROIDISM[ICD9: 244.9] Diagnosis: Need for pneumococcal vaccine[ICD9: V03.82] Disha Robbins MD, [facility] CPT-4: 22232 07/26/2014 ([id number]) 11554 EST. P ATIENT, LEVEL IV Diagnosis: HYPERLIPIDEMIA[ICD9: 272.4] Diagnosis: HYPOTHYROIDISM[ICD9: 244.9] Diagnosis: DEPRESSIVE DISORDER NEC[ICD9: 311] Disha Robbins MD, [facility] CPT- 4: 42209 01/25/2014 ([id number]) 55594 EST. P ATIENT, LEVEL III Diagnosis: ACUTE PHARYNGITIS[ICD9: 462] Giovanna Robbins MD, [facility] CPT- 4: 95389 01/10/2014 ([id number]) 52205 EST. P ATIENT, LEVEL III Diagnosis: GENERALIZED ANXIETY DISEASE[ICD9: 300.02] Diagnosis: Ear pain[ICD9: 388.70] Disha Robbins MD, [facility] CPT-4: 84557 09/23/2013 ([id number]) 54673 EST. P ATIENT, LEVEL IV Diagnosis: BACTERIAL PNEUMONIA[ICD9: 482.9] Diagnosis: Encounter for long-term (current) use of other medications[ICD9: V58.69] Diagnosis: HYPOTHYROIDISM[ICD9: 244.9] Diagnosis: DEPRESSIVE DISORDER NEC[ICD9: 311] Disha Robbins MD, [facility] CPT- 4: 01722 09/09/2013 ([id number]) 04648 EST. 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 P ATIENT, LEVEL IV Diagnosis: Renal insufficiency[ICD9: 593.9] Diagnosis: HYPERLIPIDEMIA[ICD9: 272.4] Diagnosis: DEPRESSIVE DISORDER NEC[ICD9: 311] Diagnosis: KIMANI (generalized anxiety disorder)[ICD9: 300.02] Disha Robbins MD, [facility] CPT-4: 73954 10/01/2012 ([id number]) 67561 EST. P ATIENT, LEVEL IV Diagnosis: HYPERLIPIDEMIA[ICD9: 272.4] Diagnosis: DEPRESSIVE DISORDER NEC[ICD9: 311] Diagnosis: KIMANI (generalized anxiety disorder)[ICD9: 300.02] Disha Robbins MD, [facility] CPT-4: 47512 09/03/2012 22930 EST. PATIENT, LEVEL IV Diagnosis: HYPOTHYROIDISM[ICD9: 244.9] Diagnosis: HYPERLIPIDEMIA[ICD9: 272.4] Diagnosis: ACUTE MAXILLARY SINUSITIS[ICD9: 461.0] Disha Robbins MD, [facility] CPT-4: 40035 06/26/2011 Plan of Care Planned Activity Notes [...] at home. 03/03/2018 Appointment: Disha Robbins [facility]: [facility] (15 min) Moderate 03/03/2018 Patient Education: Patient Medication Summary Completed 03/03/2018 Appointment: Disha Robbins WPtel: [facility] (15 min) Moderate 02/03/2018 Visit Plan: AVM - discussed with th e patient and her - we will order an MRI of the brain. Pt has been advised that since the seizure she should not be driving and she should continue with Keppra as previously prescribed. 01/27/2018 Appointment: Disha Robbins WPtel: [facility] (15 min) Moderate 01/27/2018 Patient Education: Patient Medication Summary Completed 01/27/2018 Care Plan: MRI BRAIN STEM W/O DYE Pending 01/27/2018 Visit Plan: Blood pressure low - re commended pt to increase the sodium in her diet. Tachycardia - no change in dose of toprol at this time. 10/13/2017 Appointment: Disha Robbins WPtel: [phone] [facility] (15 min) Moderate 10/13/2017 Patient Education: Patient [...] at home. 08/07/2017 Appointment: Disha Robbins WPtel: [phone] [facility] (15 min) Moderate 08/07/2017 Patient Education: Patient Medication Summary Completed 08/07/2017 Visit Plan: Cat bite to arm - cellu litis - continue with augmentin - call if not improving. Advised pt to have animal control picker and sorter load and unload the stray cat that bit her. 05/27/2017 Appointment: [phone] (15 min) Moderate 05/27/2017 Patient Education: Patient [...] home. 04/10/2017 Appointment: Disha Robbins WPtel: [phone] [facility] (15 min) Moderate 04/10/2017 Patient Education: Patient [...] medications. 03/18/2017 Appointment: [phone] (15 min) Moderate 03/18/2017 Patient Education: Patient [...] worsen. 12/17/2016 [phone] (30 min) Complex 12/17/2016 Patient Education: Patient [...] current medications. 09/17/2016 Appointment: Disha Robbins WPtel: [facility] (15 min) Moderate 09/17/2016 Patient Education: Patient [...] current medications. 05/20/2016 Appointment: Disha Robbins WPtel: [facility] (15 min) Moderate 05/20/2016 Patient Education: Patient Medication Summary Completed 05/20/2016 Care Plan: Tsh Pending 05/20/2016 Care Plan: Free T4 Pending 05/20/2016 Care Plan: [employer] : [id number] Pending 12/12/2015 Visit Plan: Medicare Exam - [...] care surrogate. 12/11/2015 Appointment: Tanna Marquez WPtel: [facility] [facility] - Annual Wellness Visit 12/11/2015 [...] current medications. 07/26/2014 Appointment: Disha Robbins WPtel: [facility] Follow up 07/26/2014 Patient Education: Patient Medication [...] medications. 01/25/2014 Appointment: Disha Robbins WPtel: [phone] [facility] Follow up 01/25/2014 Patient Education: Patient Medication [...] Completed 01/10/2014 Appointment: Disha Robbins WPtel: [phone] [facility] Follow up 12/02/2013 Visit Plan: Cerumen on [...] current medications. 09/23/2013 Appointment: Disha Robbins WPtel: [phone] [facility] [place] Follow up 09/23/2013 Patient Education: Patient [...] current medications. 09/09/2013 Appointment: Disha Robbins WPtel: [address] [place], [place] [phone] [facility] follow up 09/09/2013 Patient Education: Patient Medication [...] not improving. 06/03/2013 Appointment: Disha Robbins WPtel: [address] [place], [place] [phone] Follow up 06/03/2013 Patient Education: Patient Medication [...] clinic ETHEL. 02/04/2013 Appointment: Disha Robbins WPtel: [address] [place], [place] [phone] [facility] 02/04/2013 Patient Education: Patient Medication Summary Completed 02/04/2013 Appointment: Disha Robbins WPtel: [facility] Follow up 01/28/2013 Visit Plan: Extrapyramidal [...] of medications. 12/31/2012 Appointment: Disha Robbins WPtel: [address] [place], [place] [phone] Follow up 12/31/2012 Patient Education: Patient Medication [...] dietary changes. 10/01/2012 Appointment: Disha Robbins WPtel: [facility] [place] Follow up 10/01/2012 Patient Education: Patient Medication [...] current medications. 09/03/2012 Appointment: Disha Robbins WPtel: [facility] Follow up 09/03/2012 Patient Education: Patient Medication [...] this time. 06/26/2011 Appointment: Disha Robbins WPtel: [facility] Other 06/26/2011 Patient Education: Patient Medication Summary Completed 06/26/2011 Instructions Comment . Hypertension - wel l controlled - continue with current medications, continue with no added salt diet. Pt has been encouraged to exercise daily. The pt has been advised to call the office if there are any acute concerns about change in blood pressure readings at home. . Pharyngitis-Discus sed natural and expected course [...] DOP[employer] paperwork for health care surrogate. . Chronic Depression and anxiety - the [...] Patient verbalized understanding of plan. go to [facility] week and get a flu [...] continue with Keppra as previously prescribed. . Cerumen on Ear jet m - [...] on previous levels of control. We will increase her Nicacin to 1000 [...] improved, or if symptoms acutely worsen. . Cat bite to arm - cellulitis - continue with augmentin - call if not improving. Advised pt to have animal control picker and sorter load and unload the stray cat that bit her. . [...] Hyperlipidemia - medication started, discussed dietary changes. start on Losartan - this is for [...]
--- OUTSIDE RECORDS SUMMARY | 2019-11-16 09:02 | XMS REPORT | CCD ---
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 Name Role Phone PP Unavailable CCM Unavailable Summary Purpose Interface Exchange Insurance Providers Payer name Policy type / Coverage type Covered democrat ID Effective Begin Date Effective End Date WPS Medicare Part B Medicare Part B [id number] 2018 Unknown [employer] Medicare Part B [id number] Unknown Family history Son Diagnosis Age At [...] ntly unemployed 06/26/[address]: 211933493 Never smoker 06/26/[address]: 520646513 Never drinks alcohol 06/26/2011 Has the patient [...] Instructions olanzapine 2.5 mg ta blet RxNorm: 796560 TAKE 1 TABLET BY MOUT H ONCE DAILY 06/24/2018 No Stop Date Active fluoxetine 20 mg cap k[place] RxNorm: 664608 TAKE 1 CAPSULE BY ANGELIQUE TH ONCE DAILY 05/14/2018 No Stop Date Active metoprolol tartrate 25 mg tablet RxNorm: 486929 1/2 Tablet(s) PO BID 05/07/2018 09/03/2018 Active olanzapine 2.5 mg ta blet RxNorm: 365651 TAKE ONE TABLET BY MO UTH ONCE DAILY 12/23/2017 06/23/2018 In active fluoxetine 20 mg cap kameron RxNorm: 312308 TAKE ONE CAPSULE BY M OUTH ONCE DAILY 11/14/2017 05/13/2018 In active lovastatin 20 mg tablet RxNorm: 423445 Tablet(s) TAKE ONE TABLET BY MOUTH AT BE DTIME 10/24/2017 10/18/2018 Ac tive KCL 20 meq RxNorm: 1 PO BID 10/13/2017 No S top Date Active niacin ER 500 mg tab let,extended release RxNorm: 482359 1 Tablet(s) PO QHS 10/13/2017 No Stop Date Active cefdinir 300 mg capsule RxNorm: 309964 1 Capsule(s) PO BID 09/30/2017 10/06/2017 Inactive cefdinir 300 mg capsule RxNorm: 200517 1 Capsule(s) PO BID 09/30/2017 09/29/2017 Inactive Zithromax Z-Yan 250 mg tablet RxNorm: 664145 1 Tablet(s) PO UD 09/30/2017 10/12/2017 Inactive z pack as directed lovastatin 20 mg tablet RxNorm: 186093 Tablet(s) TAKE ONE TABLET BY MOUTH AT BE DTIAK 09/10/2017 10/23/2017 Inactive Synthroid 75 mcg tablet RxNorm: 984887 TAKE ONE TABLET BY MOUTH ONCE DAILY 08/01/2017 No Stop Date Active olanzapine 2.5 mg ta blet RxNorm: 657976 TAKE ONE TABLET BY MO UTH ONCE DAILY 05/27/2017 11/22/2017 In active Zithromax Z-Yan 250 mg tablet RxNorm: 573055 1 Tablet(s) PO UD 04/29/2017 09/29/2017 Inactive z pack as directed fluoxetine 20 mg cap kameron RxNorm: 317960 TAKE ONE CAPSULE BY M OUTH ONCE DAILY 04/28/2017 10/24/2017 In active lovastatin 20 mg tablet RxNorm: 549003 TAKE ONE TABLET BY MOUTH AT BEDTIME 04/28/2017 09/09/2017 In active Synthroid 75 mcg tablet RxNorm: 574478 TAKE ONE TABLET BY MOUTH ONCE DAILY 04/08/2017 07/31/2017 In active losartan 50 mg tablet RxNorm: 191547 1 Tablet(s) PO daily 03/20/2017 10/08/2017 Inactive losartan 50 mg tablet RxNorm: 228689 1 Tablet(s) PO daily 03/18/2017 03/19/2017 Inactive olanzapine 2.5 mg ta blet RxNorm: 448247 TAKE ONE TABLET BY MO UTH ONCE DAILY 02/28/2017 05/26/2017 In active Kenalog 40 mg/mL kassie pension for injection RxNorm: 7588355 Milliliter(s) Inj 12/20/2016 12/20/2016 In active ceftriaxone 500 mg s olution for injection RxNorm: 4343206 1 Milliliter(s) Inj 12/17/2016 12/17/2016 In active Zithromax Z-Yan 250 mg tablet RxNorm: 280971 1 Tablet(s) PO UD 12/17/2016 12/21/2016 Inactive zpack Kenalog 40 mg/mL kassie pension for injection RxNorm: 0414875 1 Milliliter(s) Inj 12/17/2016 12/17/2016 In active Synthroid 75 mcg tablet RxNorm: 652160 TAKE ONE TABLET BY MOUTH ONCE DAILY 11/08/2016 04/06/2017 In active lovastatin 20 mg tablet RxNorm: 366807 TAKE ONE TABLET BY MOUTH AT BEDTIME 10/28/2016 04/25/2017 In active fluoxetine 20 mg cap kameron RxNorm: 383087 TAKE ONE CAPSULE BY OUT ONCE DAILY 10/28/2016 04/25/2017 In active Synthroid 75 mcg tablet RxNorm: 702177 TAKE ONE TABLET BY MOUTH ONCE DAILY 10/08/2016 11/06/2016 In active Zithromax Z-Yan 250 mg tablet RxNorm: 351274 1 Tablet(s) PO UD 07/29/2016 09/16/2016 Inactive zpack as directed olanzapine 2.5 mg ta blet RxNorm: 714565 TAKE ONE TABLET BY MO UTH ONCE DAILY 07/29/2016 06/23/2018 In active lovastatin 20 mg tablet RxNorm: 120837 TAKE ONE TABLET BY MOUTH AT BEDTIME 07/02/2016 10/27/2016 In active olanzapine 2.5 mg ta blet RxNorm: 19990922 TAKE ONE TABLET BY MO UTH ONCE DAILY 04/29/2016 09/16/2016 In active olanzapine 2.5 mg ta blet RxNorm: 19990922 TAKE ONE TABLET BY MO UTH ONCE DAILY 04/29/2016 04/28/2016 In active fluoxetine 20 mg cap kameron RxNorm: 012384 TAKE ONE CAPSULE BY M OUTH ONCE DAILY 03/26/2016 09/21/2016 In active olanzapine 2.5 mg ta blet RxNorm: 290464 Tablet(s) TAKE ONE TA BLET BY MOUTH ONCE DAILY 01/31/2016 03/30/2016 Inactive olanzapine 2.5 mg ta blet RxNorm: 19990922 Tablet(s) TAKE ONE TA BLET BY MOUTH ONCE DAILY 01/25/2016 01/30/2016 Inactive lovastatin 20 mg tablet RxNorm: 016702 TAKE ONE TABLET BY MOUTH AT BEDTIME 12/28/2015 06/24/2016 In active fluoxetine 20 mg cap kameron RxNorm: 522738 Capsule(s) TAKE ONE C APSULE BY MOUTH ONCE DAILY 12/28/2015 09/16/2016 Inactive olanzapine 2.5 mg ta blet RxNorm: 150431 TAKE ONE TABLET BY MO UTH ONCE DAILY 11/24/2015 01/22/2016 In active mupirocin 2 % topica l ointment RxNorm: 259819 1 Application TOP BID 10/06/2015 10/12/2015 Inactive Synthroid 75 mcg tablet RxNorm: 562697 Tablet(s) PO daily TAKE ONE TABLET BY MO UTH EVERY DAY 09/18/2015 09/11/2016 Inactive [SAVINGS FOR NON-COVERED DR HAMMOND -- BIN:[id number], PCN: ASPROD1, Group: XXXXX, ID# [id number], Questions: . THIS IS NOT INSURANCE.] Synthroid 75 mcg tablet RxNorm: 028318 Tablet(s) PO daily TAKE ONE TABLET BY MO UTH EVERY DAY 09/15/2015 09/17/2015 Inactive [SAVINGS FOR NON-COVERED DR MOCKS -- BIN:975194, PCN: ASPROD1, Group: XXXXX, ID# [id number], Questions: . THIS IS NOT INSURANCE.] Synthroid 75 mcg tablet RxNorm: 797045 Tablet(s) TAKE ONE TABLET BY MOUTH EVERY DAY 09/14/2015 09/14/2015 Inactive [SAVINGS FOR NON-COVERED DRUGS -- BIN:00 3585, PCN: ASPROD1, Group: XXXXX, ID# XXXXXXX, Questions: . THIS IS NOT INSURANCE.] fluoxetine 20 mg cap kameron RxNorm: 442785 TAKE ONE CAPSULE BY M OUTH ONCE DAILY 08/24/2015 12/21/2015 In active lovastatin 20 mg tablet RxNorm: 531119 1 Tablet(s) PO QHS TAKE ONE TABLET BY MO UTH AT BEDTIME 05/29/2015 12/24/2015 Inactive [SAVINGS FOR NON-COVERED DR UGS -- BIN:[id number], PCN: ASPROD1, Group: XXXXX, ID# XXXXXXX, Questions: . THIS IS NOT INSURANCE.] olanzapine 2.5 mg ta blet RxNorm: 554613 TAKE ONE TABLET BY MO UTH ONCE DAILY 05/25/2015 11/20/2015 In active olanzapine 2.5 mg ta blet RxNorm: 438384 1 Tablet(s) daily PATRIZIA E ONE TABLET BY MOUTH EVERY DAY 02/27/2015 05/24/2015 Inactive [SAVINGS FOR NON-COVERED DR UGS -- BIN:[id number], PCN: ASPROD1, Group: XXXXX, ID# XXXXXXX, Questions: . THIS IS NOT INSURANCE.] fluoxetine 20 mg cap kameron RxNorm: 181933 Capsule(s) TAKE ONE C APSULE BY MOUTH EVERY DAY 02/27/2015 08/23/2015 Inactive prednisone 20 mg tablet RxNorm: 827299 1 Tablet(s) PO BID 01/16/2015 01/18/2015 Inactive prednisone 20 mg tablet RxNorm: 459760 1 Tablet(s) PO BID 01/16/2015 01/15/2015 Inactive Zithromax Z-Yan 250 mg tablet RxNorm: 078010 1 Tablet(s) PO as doc tor directed 01/16/2015 07/28/2016 In active zpack as directed olanzapine 2.5 mg ta blet RxNorm: 438202 1 Tablet(s) daily PATRIZIA E ONE TABLET BY MOUTH EVERY DAY 11/24/2014 02/21/2015 Inactive [SAVINGS FOR NON-COVERED DR UGS -- BIN:560501, PCN: ASPROD1, Group: XXXXX, ID# [id number], Questions: . THIS IS NOT INSURANCE.] lovastatin 20 mg tablet RxNorm: 267977 1 Tablet(s) PO QHS TAKE ONE TABLET BY MO UTH AT BEDTIME 10/26/2014 05/23/2015 Inactive [SAVINGS FOR NON-COVERED DR UGS -- BIN:193033, PCN: ASPROD1, Group: XXXXX, ID# XXXXXXX, Questions: . THIS IS NOT INSURANCE.] Synthroid 75 mcg tablet RxNorm: 640602 1 Tablet(s) PO daily TAKE ONE TABLET BY MOUTH EVERY DAY 09/19/2014 12/17/2014 Inactive Synthroid 75 mcg tablet RxNorm: 741899 Tablet(s) TAKE ONE TABLET BY MOUTH EVERY DAY 09/19/2014 09/13/2015 Inactive [SAVINGS FOR NON-COVERED DRUGS -- BIN:00 3585, PCN: ASPROD1, Group: XXXXX, ID# XXXXXXX, Questions: . THIS IS NOT INSURANCE.] fluoxetine 20 mg cap kameron RxNorm: 847380 TAKE ONE CAPSULE BY M OUTH EVERY DAY 08/04/2014 01/30/2015 In active fluoxetine 20 mg cap kameron RxNorm: 674135 1 Capsule(s) PO daily TAKE ONE CAPSULE BY MOUTH EVERY DAY 08/02/2014 08/03/2014 Inactive [SAVINGS FOR UNINSURED ERNIE ENTS -- BIN:392325, PCN: ASPROD1, Group: [id number], ID# [id number], Process claim through [employer], for questions: . THIS IS NOT INSURANCE.] lovastatin 20 mg tablet RxNorm: 670854 TAKE ONE TABLET BY MOUTH AT BEDTIME 07/25/2014 10/22/2014 In active olanzapine 2.5 mg ta blet RxNorm: 19990922 Tablet(s) TAKE ONE TA BLET BY MOUTH EVERY DAY 07/19/2014 07/18/2014 Inactive olanzapine 2.5 mg ta blet RxNorm: 19990922 TAKE ONE TABLET BY MO UTH EVERY DAY 07/19/2014 10/16/2014 In active Synthroid 75 mcg tablet RxNorm: 460014 1 Tablet(s) PO daily TAKE ONE TABLET BY MOUTH EVERY DAY 06/20/2014 06/19/2014 Inactive Synthroid 75 mcg tablet RxNorm: 341795 TAKE ONE TABLET BY MOUTH EVERY DAY 06/20/2014 09/18/2014 In active lovastatin 20 mg tablet RxNorm: 128331 TAKE ONE TABLET BY MOUTH AT BEDTIME 04/22/2014 07/20/2014 In active olanzapine 2.5 mg ta blet RxNorm: 787783 TAKE ONE TABLET BY MO UTH EVERY DAY 04/21/2014 07/18/2014 In active Synthroid 75 mcg tablet RxNorm: 850824 TAKE ONE TABLET BY MOUTH EVERY DAY 03/22/2014 06/19/2014 In active fluoxetine 20 mg cap kameron RxNorm: 683143 TAKE ONE CAPSULE BY M OUTH EVERY DAY 02/02/2014 07/31/2014 In active lovastatin 20 mg tablet RxNorm: 941791 TAKE ONE TABLET BY MOUTH AT BEDTIME 01/20/2014 04/19/2014 In active olanzapine 2.5 mg ta blet RxNorm: 161600 TAKE ONE TABLET BY MO UTH EVERY DAY 01/14/2014 04/13/2014 In active amoxicillin 500 mg t ablet RxNorm: 769722 1 Tablet(s) PO TID 01/10/2014 01/16/2014 Inactive Rocephin 500 mg solu tion for injection RxNorm: 518648 Inj 01/1001/10/2014 Inactive Synthroid 75 mcg tablet RxNorm: 685015 Tablet(s) PO TAKE ONE TABLET BY MOUTH EV 12/27/2013 03/21/2014 Inactive lovastatin 20 mg tablet RxNorm: 721895 Tablet(s) PO TAKE ONE TABLET BY MOUTH AT BEDTIME 12/20/2013 01/19/2014 Inactive olanzapine 2.5 mg ta blet RxNorm: 544897 Tablet(s) PO TAKE ONE TABLET BY MOUTH EVERY DAY 12/17/2013 01/13/2014 Inactive Synthroid 75 mcg tablet RxNorm: 427519 Tablet(s) PO TAKE ONE TABLET BY MOUTH EV FERCHO DAY 11/22/2013 12/26/2013 Inactive lovastatin 20 mg tablet RxNorm: 494184 Tablet(s) PO TAKE ONE TABLET BY MOUTH AT BEDTIME 11/15/2013 12/19/2013 Inactive olanzapine 2.5 mg ta blet RxNorm: 162328 Tablet(s) PO TAKE ONE TABLET BY MOUTH EVERY DAY 11/15/2013 12/16/2013 Inactive Synthroid 75 mcg tablet RxNorm: 695498 Tablet(s) PO TAKE ONE TABLET BY MOUTH EV FERCHO DAY 10/25/2013 11/21/2013 Inactive lovastatin 20 mg tablet RxNorm: 053297 Tablet(s) PO TAKE ONE TABLET BY MOUTH AT BEDTIME 10/18/2013 11/14/2013 Inactive Zithromax 250 mg tablet RxNorm: 664266 Tablet(s) PO 08/30/2013 07/26/2014 Inactive zpac k as directed Synthroid 75 mcg tablet RxNorm: 851874 Tablet(s) PO TAKE ONE TABLET BY MOUTH EV FERCHO DAY 05/24/2013 10/24/2013 Inactive lovastatin 20 mg tablet RxNorm: 570895 Tablet(s) PO TAKE ONE TABLET BY MOUTH AT BEDTIME 04/19/2013 10/17/2013 Inactive olanzapine 2.5 mg ta blet RxNorm: 142414 1 Tablet(s) PO 02/04/2013 09/01/2013 Inactive fluoxetine 20 mg cap kameron RxNorm: 841962 Capsule(s) PO TAKE ON E CAPSULE BY MOUTH EVERY DAY 01/08/2013 02/01/2014 Inactive olanzapine 5 mg tablet RxNorm: 534350 1/2 Tablet(s) PO daily zyprexa 12/31/2012 02/03/2013 In active Synthroid 75 mcg tablet RxNorm: 903491 1 Tablet(s) PO daily 09/29/2012 03/27/2013 Inactive Vitamin D2 50,000 un it capsule RxNorm: 398492 1 Capsule(s) PO QW 09/29/2012 09/16/2016 Inactive one weekly x 8 weeks then 1000units dorcas y thereafter Synthroid 75 mcg tablet RxNorm: 908772 1 Tablet(s) PO daily 09/29/2012 09/28/2012 Inactive lovastatin 20 mg tablet RxNorm: 736627 Tablet(s) PO TAKE ONE TABLET BY MOUTH AT BEDTIME 09/21/2012 04/18/2013 Inactive fluoxetine 20 mg cap kameron RxNorm: 830839 1 Capsule(s) PO daily TAKE ONE CAPSULE BY MOUTH EVERY DAY 09/16/2012 01/07/2013 Inactive Synthroid 50 mcg tablet RxNorm: 241324 1 Tablet(s) PO daily 09/14/2012 12/31/2012 Inactive brand name only fluoxetine 20 mg cap kameron RxNorm: 712981 Capsule(s) PO TAKE ON E CAPSULE BY MOUTH EVERY DAY 09/07/2012 09/15/2012 Inactive Synthroid 50 mcg tablet RxNorm: 869916 1 Tablet(s) PO daily 09/07/2012 09/13/2012 Inactive brand name only niacin ER 500 mg tab let,extended release RxNorm: 512069 2 Tablet(s) PO daily 09/03/2012 10/12/2017 In active lovastatin 20 mg tablet RxNorm: 444291 1 Tablet(s) PO QHS TAKE ONE TABLET BY MO UTH AT BEDTIME 08/26/2012 09/20/2012 Inactive Zithromax Z-Yan 250 mg tablet RxNorm: 154739 Tablet(s) PO UD 08/13/2012 12/31/2012 Inactive fluoxetine 20 mg cap kameron RxNorm: 531944 Capsule(s) PO 05/11/2012 09/06/2012 Inactive TAKE ONE CAPSULE BY MOUTH EVERY DAY fluoxetine 20 mg cap kameron RxNorm: 699069 1 Capsule(s) PO daily 01/06/2012 05/04/2012 Inactive Zyprexa 5 mg Tab RxNorm: 751444 Tablet(s) PO 01/06/2012 12/31/2012 Inactive TAKE ONE TABLET BY MOUTH EVERY DAY lovastatin 20 mg tablet RxNorm: 075468 Tablet(s) PO 12/24/2011 08/26/2012 Inactive TAKE ONE TABLET BY MOUTH AT BEDTIME Rocephin 500 mg Solu tion for Injection RxNorm: 791249 Inj 06/2612/31/2012 Inactive Keppra 500 mg tablet RxNorm: 512677 1 Tablet(s) PO BID No Start Date Active omeprazole 20 mg Cap , Delayed Release RxNorm: 528945 1 Capsule(s) PO BID No Start Date Active oxycodone-acetaminop hen 5 mg-325 mg Tab RxNorm: 9696159 1 Tablet(s) PO Q4 SD N No Start Date Active acyclovir 800 mg tablet RxNorm: 386450 1 Tablet(s) PO daily No Start Date Active letrozole 2.5 mg Tab RxNorm: 517341 1 Tablet(s) PO daily No Start Date Active multivitamin Cap RxNorm: 1 Capsule(s) PO daily No Start Date Active Aspirin Low Dose 81 mg tablet,delayed release RxNorm: 162404 1 Tablet(s) PO daily No Start Date Active Calcium 600 + D(3) 6 00 mg (1,500)-200 unit Tab RxNorm: 881714 1 Tablet(s) PO daily No Start Date Active Vitamin B-12 1,000 m cg tablet RxNorm: 368320 1 Tablet(s) PO daily No Start Date Active ferrous sulfate 325 mg (65 mg iron) tablet RxNorm: 352113 1 Tablet(s) PO daily No Start Date Active KCL 20 meq RxNorm: 1 PO daily No Start Date 10/12/2017 Inactive Zyprexa 5 mg Tab RxNorm: 292105 1 Tablet(s) PO daily No Start Date 01/05/2012 Inactive Zithromax Z-Yan 250 mg tablet RxNorm: 503724 Tablet(s) PO UD No Start Date 08/12/2012 Inactive Zithromax Z-Yan 250 mg tablet RxNorm: 254434 1 Tablet(s) PO UD No Start Date 04/28/2017 Inactive z pack as directed niacin ER 500 mg tab let,extended release RxNorm: 869574 1 Tablet(s) PO daily No Start Date 09/02/2012 Inactive Vitamin D2 50,000 un it capsule RxNorm: 035046 1 Capsule(s) PO QW No Start Date 09/28/2012 Inactive one weekly x 8 weeks then 1000units dorcas y thereafter Synthroid 50 mcg tablet RxNorm: 550452 1 Tablet(s) PO daily No Start Date 09/06/2012 Inactive brand name only acyclovir 400 mg Tab RxNorm: 987277 1 Tablet(s) PO BID No Start Date 09/15/2012 Inactive Zithromax Z-Yan 250 mg tablet RxNorm: 312312 1 Tablet(s) PO as doc tor directed No Start Date 01/15/2015 Inactive zpack as directed metoprolol tartrate 25 mg tablet RxNorm: 927940 1/2 Tablet(s) PO BID No Start Date 05/06/2018 Inactive fluoxetine 20 mg Tab RxNorm: 194477 1 Tablet(s) PO daily No Start Date 07/26/2014 Inactive REVLIMID 10 mg Cap RxNorm: 371309 1 Capsule(s) PO daily No Start Date 12/31/2012 Inactive lovastatin 20 mg Tab RxNorm: 333882 1 Tablet(s) PO QHS No Start Date 12/23/2011 Inactive aspirin 81 mg Cap, D elayed Release RxNorm: 904556 1 Capsule(s) PO daily No Start Date 12/30/2012 Inactive olanzapine 5 mg tablet RxNorm: 891163 1 Tablet(s) PO daily zyprexa No Start Date 12/30/2012 Inactive Zithromax 250 mg tablet RxNorm: 834218 Tablet(s) PO No Start Date 08/29/2013 Inactive zpac k as directed levofloxacin 500 mg Tab RxNorm: 839890 1 Tablet(s) PO daily No Start Date 06/26/2011 Inactive levothyroxine 50 mcg Tab RxNorm: 748032 1 Tablet(s) PO daily No Start Date 12/31/2012 Inactive dexamethasone 4 mg Tab RxNorm: 492163 2 Tablet(s) PO weekly No Start Date 12/31/2012 Inactive Medication Administered Medication Codes Instruc tions Start Date Status Kenalog 40 mg/mL suspension for injection RxNorm: 8337468 Milliliter 12/20/2016 No longer Active Kenalog 40 mg/mL suspension for injection RxNorm: 7444627 1Milliliter 12/17/2016 N o longer Active ceftriaxone 500 mg solution for injection RxNorm: 5662915 1Milliliter 12/17/2016 N o longer Active Rocephin 500 mg solution for injection RxNorm: 326279 01/10/2014 No longer A ctive Immunizations Vaccine [...] Item Item Code Result Date Free T4 Hir202 FREE T4 1.06 ng/dL 11/18/2016 Tsh Ord6 [...] pg 10/22/2016 Cbc With Differential Ord2 [place]% 36.7 % 10/22/2016 Cbc With Differential Ord2 [...] K/ul 10/22/2016 Cbc With Differential Ord2 [place] ABS# 0.6 K/ul 10/22/2016 Cbc With Differential Ord2 Eos ABS# 0.0 K/ul 10/22/2016 Cbc With Differential Ord2 Baso ABS# 0.0 K/ul 10/22/2016 Lipid Ord30 CHOL 99 mg/dL 10/22/2016 Lipid Ord30 HDL 38.0 mg/dl 10/22/2016 Lipid Ord30 TRIG 102 mg/dL 10/22/2016 Lipid Ord30 LDL 41 mg/dL 10/22/2016 Lipid Ord30 C/HDL 2.6 Ratio 10/22/2016 Comp Metabolic Ogz358 NA 135 mEq/L 10/22/2016 Comp Metabolic Dcu739 K 4.5 mEq/L 10/22/2016 Comp Metabolic Awa475 CL 102 mEq/L 10/22/2016 Comp Metabolic Nbt641 CO2 20.0 mEq/L 10/22/2016 Comp Metabolic Dnd608 AN ION GAP 18 10/22/2016 Comp Metabolic Isl069 GL UCOSE 108 mg/dL 10/22/2016 Comp Metabolic Uva809 Cr eat 1.1 mg/dL 10/22/2016 Comp Metabolic Hpv804 eG FR 53 ml/min/1.73m2 10/22 Comp Metabolic Btq600 BUN 17 mg/dL 10/22/2016 Comp Metabolic Nal655 B/ C Ratio 15.7 Ratio 10/22/2016 Comp Metabolic Aek791 CA LCIUM 8.9 mg/dL 10/22/2016 Comp Metabolic Qdx742 AL K PHOS 65 U/L 10/22/2016 Comp Metabolic Jof954 T(SGOT) 14 U/L 10/22/2016 Comp Metabolic Roz247 AL T(SGPT) 19 U/L 10/22/2016 Comp Metabolic Zmy404 BI LI T 0.8 mg/dL 10/22/2016 Comp Metabolic Mho270 AL BUMIN 3.5 g/dL 10/22/2016 Comp Metabolic Bhg565 TP RO 7.0 g/dL 10/22/2016 Comp Metabolic Bht163 GL OB 3.5 g/dL 10/22/2016 Comp Metabolic Zhb276 A/ G Ratio 1.0 Ratio 10/22/2016 Comp Metabolic Uml401 Os mo 272 mOsmo 10/22/2016 Manual Differential Ord52 D-Neutr 38 % 10/22/2016 Manual Differential Ord52 D-Bands 15 % 10/22/2016 Manual Differential Ord52 D-Lymph 37 % 10/22/2016 Manual Differential Ord52 D-Eos 4 % 10/22/2016 Manual Differential Ord52 D-Carpio 3 % 10/22/2016 Manual Differential Ord52 D-Aty Lymp 3 % 10/22/2016 Free T4 Knq099 FREE T4 1.38 ng/dL 10/22/2016 Tsh Ord6 hTSH II 2.05 uIU/mL 10/22/2016 Free T4 Vkm159 FREE T4 0.85 ng/dL 05/20/2016 Tsh Ord6 hTSH II 0.63 uIU/mL 05/20/2016 CHEM 14 1753301 AST 16 U/L 09/09/2013 CHEM 14 5334713 ALT 20 IU/L 09/09/2013 CHEM 14 8075744 BUN 17 MG/DL 09/09/2013 CHEM 14 3970971 ALBUMIN 3.6 GM/DL 09/09/2013 CHEM 14 1251736 CHLORIDE 102 MMOL/L 09/09/2013 CHEM 14 5398341 BILI TOT 0.3 MG/DL 09/09/2013 CHEM 14 8969554 ALK PHOS 88 U/L 09/09/2013 CHEM 14 5930866 SODIUM 138 MMOL/L 09/09/2013 CHEM 14 0558928 CREATINI NE 1.10 MG/DL 09/09/2013 CHEM 14 3987106 CALCIUM 9.0 MG/DL 09/09/2013 CHEM 14 8042502 POTASSIUM 4.8 MMOL/L 09/09/2013 CHEM 14 20280123 PROT TOT 6.7 GM/DL 09/09/2013 CHEM 14 8362532 GLUCOSE 113 MG/DL 09/09/2013 CHEM 14 7824281 BICARB 27 MMOL/L 09/09/2013 CHEM 14 5551740 ANION GAP 9 MEQ/L 09/09/2013 GFR CALC 2471354 GFR AA 60.0L ML/MIN 09/09/2013 GFR CALC 9657454 GFR NON -AA 50.0L ML/MIN 4 Review [...] Procedure Codes Date THER/PROPH/DIAG INJ SC/IM CPT-4: 03605 12/20/2016 TRIAMCINOLONE ACET I [place] NOS CPT-4: J3301 12/20/2016 TRIAMCINOLONE ACET I [place] NOS CPT-4: J3301 12/17/2016 ROCEPHIN, PER 250 MG CPT-4: J0696 12/17/2016 PPPS, SUBSEQ VISIT CPT- 4: G0439 12/11/2015 ADMIN PNEUMOCOCCAL V ACCINE Assigned to/Merissa Dupont CT: [id number] CPT-4: M7066Cfrquef 07/26/2014 Pneumococcal Polysac charide Vaccine, 23-Valent, Ad CPT-4: 60708 07/26/2014 ROCEPHIN, PER 250 MG CPT-4: J0696 01/10/2014 ROUTINE VENIPUNCTURE CPT-4: 86061 09/09/2013 PRESCRIP TRANSMIT A ERX SY CPT-4: G8553 02/04/2013 PRESCRIP TRANSMIT A ERX SY CPT-4: G8553 12/31/2012 THER/PROPH/DIAG INJ SC/IM CPT-4: 90428 06/26/2011 ROCEPHIN, PER 250 MG CPT-4: J0696 06/26/2011 Vital Signs Date Vital 06/30/2018 Blood Pressure 1: 120/80 Code: 8480-6 BMI: 28.2 Code: 23718-1 Heart Rate 1: 100 bpm Height: 5'1" SpO2: 94% Weight: 149 lbs 03/03/2018 Blood Pressure 1: 122/72 Code: 8480-6 BMI: 28.2 Code: 13603-4 Heart Rate 1: 100 bpm Height: 5'1" SpO2: 94% Weight: 149 lbs 01/27/2018 Blood Pressure 1: 112/70 Code: 8480-6 BMI: 27.8 Code: 01955-0 Heart Rate 1: 94 bpm Height: 5'1" SpO2: 94% Weight: 147 lbs 10/13/2017 Blood Pressure 1: 96/72 Code: 8480-6 BMI: 27.8 Code: 31682-9 Heart Rate 1: 106 bpm Height: 5'1" SpO2: 91% Weight: 147 lbs 08/07/2017 Blood Pressure 1: 120/80 Code: 8480-6 BMI: 29.7 Code: 78068-7 Heart Rate 1: 95 bpm Height: 5'1" SpO2: 94% Weight: 157 lbs 05/27/2017 Blood Pressure 1: 144/88 Code: 8480-6 BMI: 29.3 Code: 40114-9 Heart Rate 1: 94 bpm Height: 5'1" SpO2: 96% Weight: 155 lbs 04/10/2017 Blood Pressure 1: 140/88 Code: 8480-6 Blood Pressure 1: 126/78 Code: 8480-6 BMI: 28.5 Code: 45701-5 Heart Rate 1: 94 bpm Height: 5'1" SpO2: 96% Weight: 151 lbs 03/25/2017 Blood Pressure 1: 120/74 Code: 8480-6 03/18/2017 Blood Pressure 1: 150/98 Code: 8480-6 BMI: 28.6 Code: 52669-4 Heart Rate 1: 114 bpm Height: 5'1" SpO2: 96% Weight: 151 lbs 8 oz 12/17/2016 Blood Pressure 1: 146/86 Code: 8480-6 BMI: 26.1 Code: 99296-7 Heart Rate 1: 94 bpm Height: 5'1" SpO2: 95% Temperature: 36.1 (C ) / 97.0 (F) Weight: 138 lbs 09/17/2016 Blood Pressure 1: 148/88 Code: 8480-6 BMI: 26.5 Code: 03165-6 Heart Rate 1: 86 bpm Height: 5'1" SpO2: 93% Weight: 140 lbs 8 oz 05/20/2016 Blood Pressure 1: 128/82 Code: 8480-6 BMI: 26.3 Code: 07095-7 Heart Rate 1: 99 bpm Height: 5'1" SpO2: 92% Weight: 139 lbs 12/11/2015 Blood Pressure 1: 138/84 Code: 8480-6 BMI: 28.3 Code: 27660-3 Heart Rate 1: 95 bpm Height: 5'1" SpO2: 97% Waist Measure (cm): 89 cm Weight: 150 lbs 10/06/2015 Blood Pressure 1: 128/78 Code: 8480-6 BMI: 28.0 Code: 82217-8 Heart Rate 1: 94 bpm Height: 5'1" SpO2: 96% Weight: 148 lbs 09/21/2015 Blood Pressure 1: 126/94 Code: 8480-6 Blood Pressure 1: 152/78 Code: 8480-6 BMI: 28.0 Code: 44194-6 Heart Rate 1: 104 bpm Height: 5'1" SpO2: 98% Weight: 148 lbs 07/26/2014 Blood Pressure 1: 110/68 Code: 8480-6 BMI: 28.7 Code: 78145-1 Heart Rate 1: 98 bpm Height: 5'1" Weight: 152 lbs 01/25/2014 Blood Pressure 1: 120/78 Code: 8480-6 BMI: 29.3 Code: 64940-6 Heart Rate 1: 104 bpm Height: 5'1" Weight: 155 lbs 01/10/2014 Blood Pressure 1: 138/88 Code: 8480-6 Temperature: 37.1 (C) / 98.7 (F) Weight: 156 lbs 09/23/2013 Blood Pressure 1: 128/78 Code: 8480-6 BMI: 28.9 Code: 65289-7 Heart Rate 1: 88 bpm Height: 5'1" Weight: 153 lbs 09/09/2013 Blood Pressure 1: 110/68 Code: 8480-6 BMI: 28.5 Code: 45433-0 Heart Rate 1: 90 bpm Height: 5'1" SpO2: 90% Weight: 151 lbs 06/03/2013 Blood Pressure 1: 132/82 Code: 8480-6 BMI: 28.9 Code: 72042-2 Heart Rate 1: 88 bpm Height: 5'1" Weight: 153 lbs 02/04/2013 Blood Pressure 1: 140/90 Code: 8480-6 BMI: 29.3 Code: 04909-4 Heart Rate 1: 88 bpm Height: 5'1" Weight: 155 lbs 12/31/2012 Blood Pressure 1: 102/76 Code: 8480-6 BMI: 29.6 Code: 38219-0 Heart Rate 1: 112 bpm Height: 5'1" Weight: 156 lbs 8 oz 10/01/2012 Blood Pressure 1: 116/78 Code: 8480-6 BMI: 29.0 Code: 16991-3 Height: 5'2" Weight: 156 lbs 09/03/2012 Blood Pressure 1: 132/88 Code: 8480-6 Heart Rate 1: 88 bpm Weight: 154 lbs 8 oz 06/26/2011 Blood Pressure 1: 82/58 Code: 8480-6 BMI: 27.5 Code: 23294-8 Heart Rate 1: 80 bpm Height: 5'1" [...] of the thyroid 03/18/2017 None hypothyroid Quality [employer] or [employer] 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 [place] 03/18/2017 None hypothyroid Onset and Resolution [...] Exacerbating Factors diet 09/17/2016 None hypothyroid Quality [employer] or [employer] 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 [place] 09/17/2016 None hypothyroid Location at the [...] Alleviating Factors medication 12/31/2012 None hypothyroid Quality [employer] or [employer] 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 [place] 12/31/2012 None hyperlipidemia Onset and Resolution [...] Family History hyperlipidemia 09/03/2012 None hypothyroid 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 P ATIENT, LEVEL III Diagnosis: Essential (primary) hypertension[ICD10: I10] Giovanna Robbins MD, [facility] CPT-4: 44029 06/30/2018 ([id number]) 49008 EST. P ATIENT, LEVEL III Diagnosis: Essential (primary) hypertension[ICD10: I10] Disha Robbins MD, [facility] CPT-4: 64622 03/03/2018 ([id number]) 82909 EST. 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 P ATIENT, LEVEL III Diagnosis: Other hypotension[ICD10: I95.89] Diagnosis: Ventricular tachycardia[ICD10: I47.2] Disha Robbins MD, [facility] CPT-4: 50818 10/13/2017 ([id number]) 76436 EST. P ATIENT, LEVEL III Diagnosis: Essential (primary) hypertension[ICD10: I10] Disha Robbins MD, [facility] CPT-4: 45478 08/07/2017 ([id number]) 37558 EST. P ATIENT, LEVEL III Diagnosis: Open bite of left upper arm, initial encounter[ICD10: S41.152A] Disha Robbins MD, [facility] CPT-4: 52216 05/27/2017 ([id number]) 46526 EST. P ATIENT, LEVEL III Diagnosis: Essential (primary) hypertension[ICD10: I10] Disha Robbins MD, [facility] CPT-4: 99951 04/10/2017 ([id number]) Miscellaneou s no charge Diagnosis: Essential (primary) hypertension[ICD10: I10] Tanna Robbins MD, [facility] CPT-4: 11802 03/25/2017 ([id number]) 32450 EST. P ATIENT, LEVEL IV Diagnosis: Essential (primary) hypertension[ICD10: I10] Diagnosis: Atrophy of thyroid (acquired)[ICD10: E03.4] Diagnosis: Mixed hyperlipidemia[ICD10: E78.2] Disha Robbins MD, [facility] CPT- 4: 25437 03/18/2017 ([id number]) 20697 EST. P ATIENT, LEVEL III Diagnosis: Cough[ICD10: R05] Diagnosis: Acute bronchitis, unspecified[ICD10: J20.9] Giovanna Robbins MD, [facility] CPT-4: 09131 12/17/2016 ([id number]) 06341 EST. P ATIENT, LEVEL IV Diagnosis: Atrophy of thyroid (acquired)[ICD10: E03.4] Diagnosis: Mixed hyperlipidemia[ICD10: E78.2] Diagnosis: Generalized anxiety disorder[ICD10: F41.1] Disha Robbins MD, [facility] CPT-4: 14594 09/17/2016 ([id number]) 57469 EST. P ATIENT, LEVEL III Diagnosis: Atrophy of thyroid (acquired)[ICD10: E03.4] Diagnosis: Generalized anxiety disorder[ICD10: F41.1] Disha Robbins MD, [facility] CPT-4: 83822 05/20/2016 06678 EST. PATIENT, LEVEL II Diagnosis: Blister (nonthermal), right great toe, initial encounter[ICD10: S90.421A] Giovanna Robbins MD, [facility] CPT-4: 86217 10/06/2015 ([id number]) 80697 EST. P ATIENT, LEVEL IV Diagnosis: Elevated blood-pressure reading, without diagnosis of hypertension[ICD10: R03.0] Diagnosis: Mixed hyperlipidemia[ICD10: E78.2] Diagnosis: Hypothyroidism, unspecified[ICD10: E03.9] Giovanna Robbins MD, [facility] CPT-4: 66245 09/21/2015 ([id number]) 13791 EST. P ATIENT, LEVEL IV Diagnosis: HYPERLIPIDEMIA[ICD9: 272.4] Diagnosis: HYPOTHYROIDISM[ICD9: 244.9] Diagnosis: Need for pneumococcal vaccine[ICD9: V03.82] Disha Robbins MD, [facility] CPT-4: 72656 07/26/2014 ([id number]) 13682 EST. P ATIENT, LEVEL IV Diagnosis: HYPERLIPIDEMIA[ICD9: 272.4] Diagnosis: HYPOTHYROIDISM[ICD9: 244.9] Diagnosis: DEPRESSIVE DISORDER NEC[ICD9: 311] Disha Robbins MD, [facility] CPT- 4: 01390 01/25/2014 ([id number]) 95030 EST. P ATIENT, LEVEL III Diagnosis: ACUTE PHARYNGITIS[ICD9: 462] Giovanna Robbins MD, [facility] CPT- 4: 23866 01/10/2014 ([id number]) 07995 EST. P ATIENT, LEVEL III Diagnosis: GENERALIZED ANXIETY DISEASE[ICD9: 300.02] Diagnosis: Ear pain[ICD9: 388.70] Disha Robbins MD, [facility] CPT-4: 27358 09/23/2013 ([id number]) 66822 EST. P ATIENT, LEVEL IV Diagnosis: BACTERIAL PNEUMONIA[ICD9: 482.9] Diagnosis: Encounter for long-term (current) use of other medications[ICD9: V58.69] Diagnosis: HYPOTHYROIDISM[ICD9: 244.9] Diagnosis: DEPRESSIVE DISORDER NEC[ICD9: 311] Disha Robbins MD, [facility] CPT- 4: 59076 09/09/2013 ([id number]) 11937 EST. 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 P ATIENT, LEVEL IV Diagnosis: Renal insufficiency[ICD9: 593.9] Diagnosis: HYPERLIPIDEMIA[ICD9: 272.4] Diagnosis: DEPRESSIVE DISORDER NEC[ICD9: 311] Diagnosis: KIMANI (generalized anxiety disorder)[ICD9: 300.02] Disha Robbins MD, [facility] CPT-4: 90313 10/01/2012 ([id number]) 19704 EST. P ATIENT, LEVEL IV Diagnosis: HYPERLIPIDEMIA[ICD9: 272.4] Diagnosis: DEPRESSIVE DISORDER NEC[ICD9: 311] Diagnosis: KIMANI (generalized anxiety disorder)[ICD9: 300.02] Disha Robbins MD, [facility] CPT-4: 61546 09/03/2012 52429 EST. PATIENT, LEVEL IV Diagnosis: HYPOTHYROIDISM[ICD9: 244.9] Diagnosis: HYPERLIPIDEMIA[ICD9: 272.4] Diagnosis: ACUTE MAXILLARY SINUSITIS[ICD9: 461.0] Disha Robbins MD, [facility] CPT-4: 10871 06/26/2011 Plan of Care Planned Activity Notes C odes Status Date Visit Plan: Hypertension - well con trolled - continue with current medications, continue with no added salt diet. Pt has been encouraged to exercise daily. The pt has been advised to call the office if there are any acute concerns about change in blood pressure readings at home. 06/30/2018 Patient Education: Patient Medication Summary Completed 06/30/2018 Visit Plan: Hypertension - well con trolled - continue with current medications, continue with no added salt diet. Pt has been encouraged to exercise daily. The pt has been advised to call the office if there are any acute concerns about change in blood pressure readings at home. 03/03/2018 Appointment: Disha Robbins WPtel: [facility] (15 min) Moderate 03/03/2018 Patient Education: Patient Medication Summary Completed 03/03/2018 Appointment: Disha Robbins WPtel: [address] [place], [place] [phone] (15 min) Moderate 02/03/2018 Visit Plan: AVM - discussed with th e patient and her - we will order an MRI of the brain. Pt has been advised that since the seizure she should not be driving and she should continue with Keppra as previously prescribed. 01/27/2018 Appointment: Disha Robbins WPtel: [facility] (15 min) Moderate 01/27/2018 Patient Education: Patient Medication Summary Completed 01/27/2018 Care Plan: MRI BRAIN STEM W/O DYE Pending 01/27/2018 Visit Plan: Blood pressure low - re commended pt to increase the sodium in her diet. Tachycardia - no change in dose of toprol at this time. 10/13/2017 Appointment: Disha Robbins WPtel: [phone] [facility] (15 min) Moderate 10/13/2017 Patient Education: [...] home. 08/07/2017 Appointment: Disha Robbins WPtel: [phone] [facility] (15 min) Moderate 08/07/2017 Patient Education: Patient Medication Summary Completed 08/07/2017 Visit Plan: Cat bite to arm - cellu litis - continue with augmentin - call if not improving. Advised pt to have animal control belt picker the stray cat that bit her. 05/27/2017 Appointment: Disha Robbins WPtel: [facility] (15 min) Moderate 05/27/2017 Patient Education: Patient Medication Summary Completed 05/27/2017 Visit Plan: Hypertension - well con mary - continue with current medications, continue with no added salt diet. Pt has been encouraged to exercise daily. The pt has been advised to call the office if there are any acute concerns about change in blood pressure readings at home. 04/10/2017 Appointment[phone] (15 min) Moderate [...] medications. 03/18/2017 Appointment: [facility]bins [facility]: [phone] [...] worsen. 12/17/2016 Appointment: [facility] Gilmore [facility]el[phone] (30 min) Complex 12/17/2016 Patient Education: Patient [...] current medications. 09/17/2016 Appointment: Disha Robbins WPtel: [facility] (15 min) Moderate 09/17/2016 Patient Education: [...] medications. 05/20/2016 Appointment: [phone] [facility] (15 min) Moderate 05/20/2016 Patient Education: Patient Medication Summary Completed 05/20/2016 Care Plan: Tsh Pending 05/20/2016 Care Plan: Free T4 Pending 05/20/2016 Care Plan: SCREENINGMAMMOGRAPHYDIGITAL LOINC : [id number] Pending 12/12/2015 Visit Plan: Medicare Exam - [...] surrogate. 12/11/2015 Appointment: Tanna Marquez WPtel: [phone] [facility] [facility] - Annual Wellness Visit 12/11/2015 Patient Education: [...] current medications. 07/26/2014 Appointment: Disha Robbins WPtel: [facility] Follow up 07/26/2014 [...] medications. 01/25/2014 Appointment: Disha Robbins WPtel: [phone] [facility] Follow up 01/25/2014 Patient Education: Patient [...] Completed 01/10/2014 Appointment: Disha Robbins WPtel: [phone] [facility] Follow up 12/02/2013 Visit Plan: Cerumen [...] current medications. 09/23/2013 Appointment: Disha Robbins WPtel: [phone] [facility] Follow up 09/23/2013 Patient Education: Patient Medication [...] current medications. 09/09/2013 Appointment: Disha Robbins WPtel: [facility] [facility] follow up 09/09/2013 Patient Education: Patient Medication [...] not improving. 06/03/2013 Appointment: Disha Robbins WPtel: [address] [place], [place] [phone] Follow up 06/03/2013 Patient Education: Patient Medication [...] clinic [facility]. 02/04/2013 Appointment: Disha Robbins WPtel: [address] [place], [place] [phone] [facility] 02/04/2013 Patient Education: Patient Medication Summary Completed 02/04/2013 Appointment: Disha Robbins WPtel: [facility] Follow up 01/28/2013 Visit Plan: Extrapyramidal movement [...] of medications. 12/31/2012 Appointment: Disha Robbins WPtel: [facility] Follow up 12/31/2012 Patient Education: Patient [...] dietary changes. 10/01/2012 Appointment: Disha Robbins WPtel: [facility] [place] Follow up 10/01/2012 Patient Education: Patient [...] current medications. 09/03/2012 Appointment: Disha Robbins WPtel: [facility] Follow up 09/03/2012 [...] this time. 06/26/2011 Appointment: D[facility] Robbins [facility]Ptel: [phone] [facility] Other 06/26/2011 Patient Education: Patient Medication [...] worsen again, call clinic [facility]. go to [facility] and get a flu shot [...] improving. Advised pt to have animal control belt picker the stray cat that bit her. [...]
--- OUTSIDE RECORDS SUMMARY | 2019-11-16 09:04 | XMS REPORT | CCD ---
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 Name Role Phone PP Unavailable CCM Unavailable Summary Purpose Interface Exchange Insurance Providers Payer name Policy type / Coverage type Covered green party ID Effective Begin Date Effective End Date WPS Medicare Part B Medicare Part B [id number] 2018 Unknown [employer] Medicare Part B [id number] Unknown Family history Son Diagnosis Age At [...] ntly unemployed 06/26/[address]: 657573894 Never smoker 06/26/[address]: 616513673 Never drinks alcohol 06/26/2011 Has the patient [...] Instructions olanzapine 2.5 mg ta blet RxNorm: 173271 TAKE 1 TABLET BY MOUT H ONCE DAILY 06/24/2018 No Stop Date Active fluoxetine 20 mg cap kameron RxNorm: 196360 TAKE 1 CAPSULE BY ANGELIQUE TH ONCE DAILY 05/14/2018 No Stop Date Active metoprolol tartrate 25 mg tablet RxNorm: 826146 1/2 Tablet(s) PO BID 05/07/2018 09/03/2018 Active olanzapine 2.5 mg ta blet RxNorm: 500591 TAKE ONE TABLET BY MO UTH ONCE DAILY 12/23/2017 06/23/2018 In active fluoxetine 20 mg cap k[place]on RxNorm: 244240 TAKE ONE CAPSULE BY M OUTH ONCE DAILY 11/14/2017 05/13/2018 In active lovastatin 20 mg tablet RxNorm: 714817 Tablet(s) TAKE ONE TABLET BY MOUTH AT BE DTIME 10/24/2017 10/18/2018 Ac tive KCL 20 meq RxNorm: 1 PO BID 10/13/2017 No S top Date Active niacin ER 500 mg tab let,extended release RxNorm: 053289 1 Tablet(s) PO QHS 10/13/2017 No Stop Date Active cefdinir 300 mg capsule RxNorm: 795236 1 Capsule(s) PO BID 09/30/2017 10/06/2017 Inactive cefdinir 300 mg capsule RxNorm: 885520 1 Capsule(s) PO BID 09/30/2017 09/29/2017 Inactive Zithromax Z-Yan 250 mg tablet RxNorm: 105999 1 Tablet(s) PO UD 09/30/2017 10/12/2017 Inactive z pack as directed lovastatin 20 mg tablet RxNorm: 306696 Tablet(s) TAKE ONE TABLET BY MOUTH AT BE DTIWA 09/10/2017 10/23/2017 Inactive Synthroid 75 mcg tablet RxNorm: 382397 TAKE ONE TABLET BY MOUTH ONCE DAILY 08/01/2017 No Stop Date Active olanzapine 2.5 mg ta blet RxNorm: 264793 TAKE ONE TABLET BY MO UTH ONCE DAILY 05/27/2017 11/22/2017 In active Zithromax Z-Yan 250 mg tablet RxNorm: 020949 1 Tablet(s) PO UD 04/29/2017 09/29/2017 Inactive z pack as directed fluoxetine 20 mg cap kameron RxNorm: 356439 TAKE ONE CAPSULE BY M OUTH ONCE DAILY 04/28/2017 10/24/2017 In active lovastatin 20 mg tablet RxNorm: 822887 TAKE ONE TABLET BY MOUTH AT BEDTIME 04/28/2017 09/09/2017 In active Synthroid 75 mcg tablet RxNorm: 110320 TAKE ONE TABLET BY MOUTH ONCE DAILY 04/08/2017 07/31/2017 In active losartan 50 mg tablet RxNorm: 561091 1 Tablet(s) PO daily 03/20/2017 10/08/2017 Inactive losartan 50 mg tablet RxNorm: 106185 1 Tablet(s) PO daily 03/18/2017 03/19/2017 Inactive olanzapine 2.5 mg ta blet RxNorm: 145941 TAKE ONE TABLET BY MO UTH ONCE DAILY 02/28/2017 05/26/2017 In active Kenalog 40 mg/mL kassie pension for injection RxNorm: 4849575 Milliliter(s) Inj 12/20/2016 12/20/2016 In active ceftriaxone 500 mg s olution for injection RxNorm: 9843425 1 Milliliter(s) Inj 12/17/2016 12/17/2016 In active Zithromax Z-Yan 250 mg tablet RxNorm: 730557 1 Tablet(s) PO UD 12/17/2016 12/21/2016 Inactive zpack Kenalog 40 mg/mL kassie pension for injection RxNorm: 2366450 1 Milliliter(s) Inj 12/17/2016 12/17/2016 In active Synthroid 75 mcg tablet RxNorm: 031523 TAKE ONE TABLET BY MOUTH ONCE DAILY 11/08/2016 04/06/2017 In active lovastatin 20 mg tablet RxNorm: 436795 TAKE ONE TABLET BY MOUTH AT BEDTIME 10/28/2016 04/25/2017 In active fluoxetine 20 mg cap kameron RxNorm: 163667 TAKE ONE CAPSULE BY OUT ONCE DAILY 10/28/2016 04/25/2017 In active Synthroid 75 mcg tablet RxNorm: 055662 TAKE ONE TABLET BY MOUTH ONCE DAILY 10/08/2016 11/06/2016 In active Zithromax Z-Yan 250 mg tablet RxNorm: 573613 1 Tablet(s) PO UD 07/29/2016 09/16/2016 Inactive zpack as directed olanzapine 2.5 mg ta blet RxNorm: 842268 TAKE ONE TABLET BY MO UTH ONCE DAILY 07/29/2016 06/23/2018 In active lovastatin 20 mg tablet RxNorm: 557618 TAKE ONE TABLET BY MOUTH AT BEDTIME 07/02/2016 10/27/2016 In active olanzapine 2.5 mg ta blet RxNorm: 19990922 TAKE ONE TABLET BY MO UTH ONCE DAILY 04/29/2016 09/16/2016 In active olanzapine 2.5 mg ta blet RxNorm: 19990922 TAKE ONE TABLET BY MO UTH ONCE DAILY 04/29/2016 04/28/2016 In active fluoxetine 20 mg cap kameron RxNorm: 720631 TAKE ONE CAPSULE BY M OUTH ONCE DAILY 03/26/2016 09/21/2016 In active olanzapine 2.5 mg ta blet RxNorm: 110236 Tablet(s) TAKE ONE TA BLET BY MOUTH ONCE DAILY 01/31/2016 03/30/2016 Inactive olanzapine 2.5 mg ta blet RxNorm: 19990922 Tablet(s) TAKE ONE TA BLET BY MOUTH ONCE DAILY 01/25/2016 01/30/2016 Inactive lovastatin 20 mg tablet RxNorm: 184138 TAKE ONE TABLET BY MOUTH AT BEDTIME 12/28/2015 06/24/2016 In active fluoxetine 20 mg cap kameron RxNorm: 966091 Capsule(s) TAKE ONE C APSULE BY MOUTH ONCE DAILY 12/28/2015 09/16/2016 Inactive olanzapine 2.5 mg ta blet RxNorm: 547242 TAKE ONE TABLET BY MO UTH ONCE DAILY 11/24/2015 01/22/2016 In active mupirocin 2 % topica l ointment RxNorm: 697390 1 Application TOP BID 10/06/2015 10/12/2015 Inactive Synthroid 75 mcg tablet RxNorm: 402669 Tablet(s) PO daily TAKE ONE TABLET BY MO UTH EVERY DAY 09/18/2015 09/11/2016 Inactive [SAVINGS FOR NON-COVERED DR HAMMOND -- BIN:169564, PCN: ASPROD1, Group: XXXXX, ID# [id number], Questions: . THIS IS NOT INSURANCE.] Synthroid 75 mcg tablet RxNorm: 215083 Tablet(s) PO daily TAKE ONE TABLET BY MO UTH EVERY DAY 09/15/2015 09/17/2015 Inactive [SAVINGS FOR NON-COVERED DR MOCKS -- BIN:129639, PCN: ASPROD1, Group: XXXXX, ID# [id number], Questions: . THIS IS NOT INSURANCE.] Synthroid 75 mcg tablet RxNorm: 729793 Tablet(s) TAKE ONE TABLET BY MOUTH EVERY DAY 09/14/2015 09/14/2015 Inactive [SAVINGS FOR NON-COVERED DRUGS -- BIN:00 3585, PCN: ASPROD1, Group: XXXXX, ID# [id number], Questions: . THIS IS NOT INSURANCE.] fluoxetine 20 mg cap kameron RxNorm: 927542 TAKE ONE CAPSULE BY M OUTH ONCE DAILY 08/24/2015 12/21/2015 In active lovastatin 20 mg tablet RxNorm: 670520 1 Tablet(s) PO QHS TAKE ONE TABLET BY MO UTH AT BEDTIME 05/29/2015 12/24/2015 Inactive [SAVINGS FOR NON-COVERED DR UGS -- BIN:540933, PCN: ASPROD1, Group: XXXXX, ID# XXXXXXX, Questions: . THIS IS NOT INSURANCE.] olanzapine 2.5 mg ta blet RxNorm: 940727 TAKE ONE TABLET BY MO UTH ONCE DAILY 05/25/2015 11/20/2015 In active olanzapine 2.5 mg ta blet RxNorm: 585091 1 Tablet(s) daily PATRIZIA E ONE TABLET BY MOUTH EVERY DAY 02/27/2015 05/24/2015 Inactive [SAVINGS FOR NON-COVERED DR UGS -- BIN:491374, PCN: ASPROD1, Group: XXXXX, ID# [id number], Questions: . THIS IS NOT INSURANCE.] fluoxetine 20 mg cap kameron RxNorm: 462390 Capsule(s) TAKE ONE C APSULE BY MOUTH EVERY DAY 02/27/2015 08/23/2015 Inactive prednisone 20 mg tablet RxNorm: 724552 1 Tablet(s) PO BID 01/16/2015 01/18/2015 Inactive prednisone 20 mg tablet RxNorm: 988518 1 Tablet(s) PO BID 01/16/2015 01/15/2015 Inactive Zithromax Z-Yan 250 mg tablet RxNorm: 799655 1 Tablet(s) PO as doc tor directed 01/16/2015 07/28/2016 In active zpack as directed olanzapine 2.5 mg ta blet RxNorm: 695176 1 Tablet(s) daily PATRIZIA E ONE TABLET BY MOUTH EVERY DAY 11/24/2014 02/21/2015 Inactive [SAVINGS FOR NON-COVERED DR UGS -- BIN:090029, PCN: ASPROD1, Group: XXXXX, ID# [id number], Questions: . THIS IS NOT INSURANCE.] lovastatin 20 mg tablet RxNorm: 533628 1 Tablet(s) PO QHS TAKE ONE TABLET BY MO UTH AT BEDTIME 10/26/2014 05/23/2015 Inactive [SAVINGS FOR NON-COVERED DR UGS -- BIN:312609, PCN: ASPROD1, Group: XXXXX, ID# XXXXXXX, Questions: . THIS IS NOT INSURANCE.] Synthroid 75 mcg tablet RxNorm: 063517 1 Tablet(s) PO daily TAKE ONE TABLET BY MOUTH EVERY DAY 09/19/2014 12/17/2014 Inactive Synthroid 75 mcg tablet RxNorm: 298452 Tablet(s) TAKE ONE TABLET BY MOUTH EVERY DAY 09/19/2014 09/13/2015 Inactive [SAVINGS FOR NON-COVERED DRUGS -- BIN:00 3585, PCN: ASPROD1, Group: XXXXX, ID# [id number], Questions: . THIS IS NOT INSURANCE.] fluoxetine 20 mg cap kameron RxNorm: 953406 TAKE ONE CAPSULE BY M OUTH EVERY DAY 08/04/2014 01/30/2015 In active fluoxetine 20 mg cap kameron RxNorm: 331638 1 Capsule(s) PO daily TAKE ONE CAPSULE BY MOUTH EVERY DAY 08/02/2014 08/03/2014 Inactive [SAVINGS FOR UNINSURED ERNIE ENTS -- BIN:664459, PCN: ASPROD1, Group: [id number], ID# [id number], Process claim through [employer], for questions: . THIS IS NOT INSURANCE.] lovastatin 20 mg tablet RxNorm: 326442 TAKE ONE TABLET BY MOUTH AT BEDTIME 07/25/2014 10/22/2014 In active olanzapine 2.5 mg ta blet RxNorm: 19990922 Tablet(s) TAKE ONE TA BLET BY MOUTH EVERY DAY 07/19/2014 07/18/2014 Inactive olanzapine 2.5 mg ta blet RxNorm: 19990922 TAKE ONE TABLET BY MO UTH EVERY DAY 07/19/2014 10/16/2014 In active Synthroid 75 mcg tablet RxNorm: 066474 1 Tablet(s) PO daily TAKE ONE TABLET BY MOUTH EVERY DAY 06/20/2014 06/19/2014 Inactive Synthroid 75 mcg tablet RxNorm: 287190 TAKE ONE TABLET BY MOUTH EVERY DAY 06/20/2014 09/18/2014 In active lovastatin 20 mg tablet RxNorm: 624072 TAKE ONE TABLET BY MOUTH AT BEDTIME 04/22/2014 07/20/2014 In active olanzapine 2.5 mg ta blet RxNorm: 753216 TAKE ONE TABLET BY MO UTH EVERY DAY 04/21/2014 07/18/2014 In active Synthroid 75 mcg tablet RxNorm: 332511 TAKE ONE TABLET BY MOUTH EVERY DAY 03/22/2014 06/19/2014 In active fluoxetine 20 mg cap kameron RxNorm: 356852 TAKE ONE CAPSULE BY M OUTH EVERY DAY 02/02/2014 07/31/2014 In active lovastatin 20 mg tablet RxNorm: 378483 TAKE ONE TABLET BY MOUTH AT BEDTIME 01/20/2014 04/19/2014 In active olanzapine 2.5 mg ta blet RxNorm: 729801 TAKE ONE TABLET BY MO UTH EVERY DAY 01/14/2014 04/13/2014 In active amoxicillin 500 mg t ablet RxNorm: 360556 1 Tablet(s) PO TID 01/10/2014 01/16/2014 Inactive Rocephin 500 mg solu tion for injection RxNorm: 407634 Inj 01/1001/10/2014 Inactive Synthroid 75 mcg tablet RxNorm: 531636 Tablet(s) PO TAKE ONE TABLET BY MOUTH EV 12/27/2013 03/21/2014 Inactive lovastatin 20 mg tablet RxNorm: 752233 Tablet(s) PO TAKE ONE TABLET BY MOUTH AT BEDTIME 12/20/2013 01/19/2014 Inactive olanzapine 2.5 mg ta blet RxNorm: 040474 Tablet(s) PO TAKE ONE TABLET BY MOUTH EVERY DAY 12/17/2013 01/13/2014 Inactive Synthroid 75 mcg tablet RxNorm: 453421 Tablet(s) PO TAKE ONE TABLET BY MOUTH EV FERCHO DAY 11/22/2013 12/26/2013 Inactive lovastatin 20 mg tablet RxNorm: 147828 Tablet(s) PO TAKE ONE TABLET BY MOUTH AT BEDTIME 11/15/2013 12/19/2013 Inactive olanzapine 2.5 mg ta blet RxNorm: 934651 Tablet(s) PO TAKE ONE TABLET BY MOUTH EVERY DAY 11/15/2013 12/16/2013 Inactive Synthroid 75 mcg tablet RxNorm: 616573 Tablet(s) PO TAKE ONE TABLET BY MOUTH EV FERCHO DAY 10/25/2013 11/21/2013 Inactive lovastatin 20 mg tablet RxNorm: 917047 Tablet(s) PO TAKE ONE TABLET BY MOUTH AT BEDTIME 10/18/2013 11/14/2013 Inactive Zithromax 250 mg tablet RxNorm: 630311 Tablet(s) PO 08/30/2013 07/26/2014 Inactive zpac k as directed Synthroid 75 mcg tablet RxNorm: 201732 Tablet(s) PO TAKE ONE TABLET BY MOUTH EV FERCHO DAY 05/24/2013 10/24/2013 Inactive lovastatin 20 mg tablet RxNorm: 554556 Tablet(s) PO TAKE ONE TABLET BY MOUTH AT BEDTIME 04/19/2013 10/17/2013 Inactive olanzapine 2.5 mg ta blet RxNorm: 547167 1 Tablet(s) PO 02/04/2013 09/01/2013 Inactive fluoxetine 20 mg cap kameron RxNorm: 411815 Capsule(s) PO TAKE ON E CAPSULE BY MOUTH EVERY DAY 01/08/2013 02/01/2014 Inactive olanzapine 5 mg tablet RxNorm: 013680 1/2 Tablet(s) PO daily zyprexa 12/31/2012 02/03/2013 In active Synthroid 75 mcg tablet RxNorm: 535969 1 Tablet(s) PO daily 09/29/2012 03/27/2013 Inactive Vitamin D2 50,000 un it capsule RxNorm: 793641 1 Capsule(s) PO QW 09/29/2012 09/16/2016 Inactive one weekly x 8 weeks then 1000units dorcas y thereafter Synthroid 75 mcg tablet RxNorm: 238573 1 Tablet(s) PO daily 09/29/2012 09/28/2012 Inactive lovastatin 20 mg tablet RxNorm: 063640 Tablet(s) PO TAKE ONE TABLET BY MOUTH AT BEDTIME 09/21/2012 04/18/2013 Inactive fluoxetine 20 mg cap kameron RxNorm: 932062 1 Capsule(s) PO daily TAKE ONE CAPSULE BY MOUTH EVERY DAY 09/16/2012 01/07/2013 Inactive Synthroid 50 mcg tablet RxNorm: 111944 1 Tablet(s) PO daily 09/14/2012 12/31/2012 Inactive brand name only fluoxetine 20 mg cap kameron RxNorm: 643362 Capsule(s) PO TAKE ON E CAPSULE BY MOUTH EVERY DAY 09/07/2012 09/15/2012 Inactive Synthroid 50 mcg tablet RxNorm: 069837 1 Tablet(s) PO daily 09/07/2012 09/13/2012 Inactive brand name only niacin ER 500 mg tab let,extended release RxNorm: 888057 2 Tablet(s) PO daily 09/03/2012 10/12/2017 In active lovastatin 20 mg tablet RxNorm: 422025 1 Tablet(s) PO QHS TAKE ONE TABLET BY MO UTH AT BEDTIME 08/26/2012 09/20/2012 Inactive Zithromax Z-Yan 250 mg tablet RxNorm: 309833 Tablet(s) PO UD 08/13/2012 12/31/2012 Inactive fluoxetine 20 mg cap kameron RxNorm: 626937 Capsule(s) PO 05/11/2012 09/06/2012 Inactive TAKE ONE CAPSULE BY MOUTH EVERY DAY fluoxetine 20 mg cap kameron RxNorm: 744801 1 Capsule(s) PO daily 01/06/2012 05/04/2012 Inactive Zyprexa 5 mg Tab RxNorm: 185059 Tablet(s) PO 01/06/2012 12/31/2012 Inactive TAKE ONE TABLET BY MOUTH EVERY DAY lovastatin 20 mg tablet RxNorm: 059320 Tablet(s) PO 12/24/2011 08/26/2012 Inactive TAKE ONE TABLET BY MOUTH AT BEDTIME Rocephin 500 mg Solu tion for Injection RxNorm: 297683 Inj 06/2612/31/2012 Inactive Keppra 500 mg tablet RxNorm: 941229 1 Tablet(s) PO BID No Start Date Active omeprazole 20 mg Cap , Delayed Release RxNorm: 758509 1 Capsule(s) PO BID No Start Date Active oxycodone-acetaminop hen 5 mg-325 mg Tab RxNorm: 4306831 1 Tablet(s) PO Q4 MT N No Start Date Active acyclovir 800 mg tablet RxNorm: 642963 1 Tablet(s) PO daily No Start Date Active letrozole 2.5 mg Tab RxNorm: 596618 1 Tablet(s) PO daily No Start Date Active multivitamin Cap RxNorm: 1 Capsule(s) PO daily No Start Date Active Aspirin Low Dose 81 mg tablet,delayed release RxNorm: 848946 1 Tablet(s) PO daily No Start Date Active Calcium 600 + D(3) 6 00 mg (1,500)-200 unit Tab RxNorm: 470845 1 Tablet(s) PO daily No Start Date Active Vitamin B-12 1,000 m cg tablet RxNorm: 955883 1 Tablet(s) PO daily No Start Date Active ferrous sulfate 325 mg (65 mg iron) tablet RxNorm: 450395 1 Tablet(s) PO daily No Start Date Active KCL 20 meq RxNorm: 1 PO daily No Start Date 10/12/2017 Inactive Zyprexa 5 mg Tab RxNorm: 242335 1 Tablet(s) PO daily No Start Date 01/05/2012 Inactive Zithromax Z-Yan 250 mg tablet RxNorm: 887255 Tablet(s) PO UD No Start Date 08/12/2012 Inactive Zithromax Z-Yan 250 mg tablet RxNorm: 584526 1 Tablet(s) PO UD No Start Date 04/28/2017 Inactive z pack as directed niacin ER 500 mg tab let,extended release RxNorm: 645877 1 Tablet(s) PO daily No Start Date 09/02/2012 Inactive Vitamin D2 50,000 un it capsule RxNorm: 710366 1 Capsule(s) PO QW No Start Date 09/28/2012 Inactive one weekly x 8 weeks then 1000units dorcas y thereafter Synthroid 50 mcg tablet RxNorm: 596959 1 Tablet(s) PO daily No Start Date 09/06/2012 Inactive brand name only acyclovir 400 mg Tab RxNorm: 552720 1 Tablet(s) PO BID No Start Date 09/15/2012 Inactive Zithromax Z-Yan 250 mg tablet RxNorm: 823686 1 Tablet(s) PO as doc tor directed No Start Date 01/15/2015 Inactive zpack as directed metoprolol tartrate 25 mg tablet RxNorm: 142013 1/2 Tablet(s) PO BID No Start Date 05/06/2018 Inactive fluoxetine 20 mg Tab RxNorm: 046820 1 Tablet(s) PO daily No Start Date 07/26/2014 Inactive REVLIMID 10 mg Cap RxNorm: 057256 1 Capsule(s) PO daily No Start Date 12/31/2012 Inactive lovastatin 20 mg Tab RxNorm: 464168 1 Tablet(s) PO QHS No Start Date 12/23/2011 Inactive aspirin 81 mg Cap, D elayed Release RxNorm: 162278 1 Capsule(s) PO daily No Start Date 12/30/2012 Inactive olanzapine 5 mg tablet RxNorm: 328142 1 Tablet(s) PO daily zyprexa No Start Date 12/30/2012 Inactive Zithromax 250 mg tablet RxNorm: 603967 Tablet(s) PO No Start Date 08/29/2013 Inactive zpac k as directed levofloxacin 500 mg Tab RxNorm: 387784 1 Tablet(s) PO daily No Start Date 06/26/2011 Inactive levothyroxine 50 mcg Tab RxNorm: 490666 1 Tablet(s) PO daily No Start Date 12/31/2012 Inactive dexamethasone 4 mg Tab RxNorm: 402085 2 Tablet(s) PO weekly No Start Date 12/31/2012 Inactive Medication Administered Medication Codes Instruc tions Start Date Status Kenalog 40 mg/mL suspension for injection RxNorm: 2443889 Milliliter 12/20/2016 No longer Active Kenalog 40 mg/mL suspension for injection RxNorm: 9288099 1Milliliter 12/17/2016 N o longer Active ceftriaxone 500 mg solution for injection RxNorm: 9869329 1Milliliter 12/17/2016 N o longer Active Rocephin 500 mg solution for injection RxNorm: 123748 01/10/2014 No longer A ctive Immunizations Vaccine Codes Date Status Influenza CVX: 141 05/26 completed Pneumococcal (Adult) CVX: 33 07/26/2014 completed Assessments Condition Codes Effectiv e Dates Essential (primary) hypertension ICD -10: I10 ICD-9: 401.1 03/03/2018 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 ICD-9: [...] Reason For Visit Effective Dates Notes hypertension 03/03/2018 Hospital Follow Up 01/27/2018 Hospital [...] Item Item Code Result Date Free T4 Ukq557 FREE T4 1.06 ng/dL 11/18/2016 Tsh Ord6 [...] 33.2 pg 10/22/2016 Cbc With Differential Ord2 [place]% 36.7 % 10/22/2016 Cbc With Differential Ord2 [...] 0.51 K/ul 10/22/2016 Cbc With Differential Ord2 [place] ABS# 0.6 K/ul 10/22/2016 Cbc With Differential Ord2 Eos ABS# 0.0 K/ul 10/22/2016 Cbc With Differential Ord2 Baso ABS# 0.0 K/ul 10/22/2016 Lipid Ord30 CHOL 99 mg/dL 10/22/2016 Lipid Ord30 HDL 38.0 mg/dl 10/22/2016 Lipid Ord30 TRIG 102 mg/dL 10/22/2016 Lipid Ord30 LDL 41 mg/dL 10/22/2016 Lipid Ord30 C/HDL 2.6 Ratio 10/22/2016 Comp Metabolic Yym605 NA 135 mEq/L 10/22/2016 Comp Metabolic Oxz441 K 4.5 mEq/L 10/22/2016 Comp Metabolic Apx567 CL 102 mEq/L 10/22/2016 Comp Metabolic Wmb944 CO2 20.0 mEq/L 10/22/2016 Comp Metabolic Rzh694 AN ION GAP 18 10/22/2016 Comp Metabolic Ujp523 GL UCOSE 108 mg/dL 10/22/2016 Comp Metabolic Mzi043 Cr eat 1.1 mg/dL 10/22/2016 Comp Metabolic Rtx270 eG FR 53 ml/min/1.73m2 10/22 Comp Metabolic Jqa751 BUN 17 mg/dL 10/22/2016 Comp Metabolic Jox070 B/ C Ratio 15.7 Ratio 10/22/2016 Comp Metabolic Ajs085 CA LCIUM 8.9 mg/dL 10/22/2016 Comp Metabolic Nic536 AL K PHOS 65 U/L 10/22/2016 Comp Metabolic Cob201 T(SGOT) 14 U/L 10/22/2016 Comp Metabolic Qbu362 AL T(SGPT) 19 U/L 10/22/2016 Comp Metabolic Umw990 BI LI T 0.8 mg/dL 10/22/2016 Comp Metabolic Ykb237 AL BUMIN 3.5 g/dL 10/22/2016 Comp Metabolic Rcq224 TP RO 7.0 g/dL 10/22/2016 Comp Metabolic Ucd072 GL OB 3.5 g/dL 10/22/2016 Comp Metabolic Jqk146 A/ G Ratio 1.0 Ratio 10/22/2016 Comp Metabolic Ckv219 Os mo 272 mOsmo 10/22/2016 Manual Differential Ord52 D-Neutr 38 % 10/22/2016 Manual Differential Ord52 D-Bands 15 % 10/22/2016 Manual Differential Ord52 D-Lymph 37 % 10/22/2016 Manual Differential Ord52 D-Eos 4 % 10/22/2016 Manual Differential Ord52 D-[place] 3 % 10/22/2016 Manual Differential Ord52 D-Aty Lymp 3 % 10/22/2016 Free T4 Isl820 FREE T4 1.38 ng/dL 10/22/2016 Tsh Ord6 hTSH II 2.05 uIU/mL 10/22/2016 Free T4 Zvr846 FREE T4 0.85 ng/dL 05/20/2016 Tsh Ord6 hTSH II 0.63 uIU/mL 05/20/2016 CHEM 14 20280123 AST 16 U/L 09/09/2013 CHEM 14 20280123 ALT 20 IU/L 09/09/2013 CHEM 14 1874185 BUN 17 MG/DL 09/09/2013 CHEM 14 0441040 ALBUMIN 3.6 GM/DL 09/09/2013 CHEM 14 20280123 CHLORIDE 102 MMOL/L 09/09/2013 CHEM 14 20280123 BILI TOT 0.3 MG/DL 09/09/2013 CHEM 14 7207317 ALK PHOS 88 U/L 09/09/2013 CHEM 14 7272675 SODIUM 138 MMOL/L 09/09/2013 CHEM 14 0891289 CREATINI NE 1.10 MG/DL 09/09/2013 CHEM 14 9423922 CALCIUM 9.0 MG/DL 09/09/2013 CHEM 14 0922582 POTASSIUM 4.8 MMOL/L 09/09/2013 CHEM 14 20280123 PROT TOT 6.7 GM/DL 09/09/2013 CHEM 14 20280123 GLUCOSE 113 MG/DL 09/09/2013 CHEM 14 2058997 BICARB 27 MMOL/L 09/09/2013 CHEM 14 6023022 ANION GAP 9 MEQ/L 09/09/2013 GFR CALC 6116011 GFR AA 60.0L ML/MIN 09/09/2013 GFR CALC 3405685 GFR NON -AA 50.0L ML/MIN 4 Review of Systems System Result Effective Dates Constitutional No recent illness 03/03/2018 Constitutional No [...] clear 03/18/2017 None Full Exam - General 1995 Ears/Nose/Throat otoscopic exam Overall: tympanic membranes clear 03/18/2017 None Full Exam - General 1994 Ears/Nose/Throat lips/teeth/gingiva Overall: benign lips 03/18/2017 None Full Exam - General 1995 Ears/Nose/Throat lips/teeth/gingiva Overall: normal dentition 03/18/2017 None Full Exam - General 1995 Ears/Nose/Throat lips/teeth/gingiva Overall: benign gingiva 03/18/2017 None Full Exam - General 1994 Ears/Nose/Throat lips/teeth/gingiva Overall: no masses 03/18/2017 None Full Exam - General 1994 Ears/Nose/Throat oral cavity/pharynx/larynx Overall: oral mucosa clear 03/18/2017 None Full Exam - General 1995 Ears/Nose/Throat [...] 1995 Ears/Nose/Throat oral cavity/pharynx/larynx Overall: no masses 09/09/2013 [...] nourished 02/04/2013 None Full Exam - General 1995 Respiratory [...] masses 12/31/2012 None Full Exam - General 1995 Respiratory auscultation Overall: breath sounds clear bilaterally 12/31/2012 None Full Exam - General 1994 Respiratory respiratory effort/rhythm Overall: no retractions 12/31/2012 None Full Exam - General 1995 Respiratory respiratory effort/rhythm Overall: normal rate 12/31/2012 [...] Procedure Codes Date THER/PROPH/DIAG INJ SC/IM CPT-4: 18679 12/20/2016 TRIAMCINOLONE ACET I [place] NOS CPT-4: J3301 12/20/2016 TRIAMCINOLONE ACET I NJ NOS CPT-4: J3301 12/17/2016 ROCEPHIN, PER 250 MG CPT-4: J0696 12/17/2016 PPPS, SUBSEQ VISIT CPT- 4: G0439 12/11/2015 ADMIN PNEUMOCOCCAL V ACCINE Assigned to/Merissa Dupont CT: [id number] CPT-4: J3012Xkrokei 07/26/2014 Pneumococcal Polysac charide Vaccine, 23-Valent, Ad CPT-4: 97981 07/26/2014 ROCEPHIN, PER 250 MG CPT-4: J0696 01/10/2014 ROUTINE VENIPUNCTURE CPT-4: 00083 09/09/2013 PRESCRIP TRANSMIT A ERX SY CPT-4: G8553 02/04/2013 PRESCRIP TRANSMIT A ERX SY CPT-4: G8553 12/31/2012 THER/PROPH/DIAG INJ SC/IM CPT-4: 75645 06/26/2011 ROCEPHIN, PER 250 MG CPT-4: J0696 06/26/2011 Vital Signs Date Vital 03/03/2018 Blood Pressure 1: 122/72 Code: 8480-6 BMI: 28.2 Code: 98524-6 Heart Rate 1: 100 bpm Height: 5'1" SpO2: 94% Weight: 149 lbs 01/27/2018 Blood Pressure 1: 112/70 Code: 8480-6 BMI: 27.8 Code: 56130-9 Heart Rate 1: 94 bpm Height: 5'1" SpO2: 94% Weight: 147 lbs 10/13/2017 Blood Pressure 1: 96/72 Code: 8480-6 BMI: 27.8 Code: 81474-8 Heart Rate 1: 106 bpm Height: 5'1" SpO2: 91% Weight: 147 lbs 08/07/2017 Blood Pressure 1: 120/80 Code: 8480-6 BMI: 29.7 Code: 50565-1 Heart Rate 1: 95 bpm Height: 5'1" SpO2: 94% Weight: 157 lbs 05/27/2017 Blood Pressure 1: 144/88 Code: 8480-6 BMI: 29.3 Code: 63382-5 Heart Rate 1: 94 bpm Height: 5'1" SpO2: 96% Weight: 155 lbs 04/10/2017 Blood Pressure 1: 140/88 Code: 8480-6 Blood Pressure 1: 126/78 Code: 8480-6 BMI: 28.5 Code: 56093-6 Heart Rate 1: 94 bpm Height: 5'1" SpO2: 96% Weight: 151 lbs 03/25/2017 Blood Pressure 1: 120/74 Code: 8480-6 03/18/2017 Blood Pressure 1: 150/98 Code: 8480-6 BMI: 28.6 Code: 60181-7 Heart Rate 1: 114 bpm Height: 5'1" SpO2: 96% Weight: 151 lbs 8 oz 12/17/2016 Blood Pressure 1: 146/86 Code: 8480-6 BMI: 26.1 Code: 22614-5 Heart Rate 1: 94 bpm Height: 5'1" SpO2: 95% Temperature: 36.1 (C ) / 97.0 (F) Weight: 138 lbs 09/17/2016 Blood Pressure 1: 148/88 Code: 8480-6 BMI: 26.5 Code: 94341-8 Heart Rate 1: 86 bpm Height: 5'1" SpO2: 93% Weight: 140 lbs 8 oz 05/20/2016 Blood Pressure 1: 128/82 Code: 8480-6 BMI: 26.3 Code: 50632-9 Heart Rate 1: 99 bpm Height: 5'1" SpO2: 92% Weight: 139 lbs 12/11/2015 Blood Pressure 1: 138/84 Code: 8480-6 BMI: 28.3 Code: 20702-3 Heart Rate 1: 95 bpm Height: 5'1" SpO2: 97% Waist Measure (cm): 89 cm Weight: 150 lbs 10/06/2015 Blood Pressure 1: 128/78 Code: 8480-6 BMI: 28.0 Code: 35775-4 Heart Rate 1: 94 bpm Height: 5'1" SpO2: 96% Weight: 148 lbs 09/21/2015 Blood Pressure 1: 126/94 Code: 8480-6 Blood Pressure 1: 152/78 Code: 8480-6 BMI: 28.0 Code: 04300-7 Heart Rate 1: 104 bpm Height: 5'1" SpO2: 98% Weight: 148 lbs 07/26/2014 Blood Pressure 1: 110/68 Code: 8480-6 BMI: 28.7 Code: 08431-3 Heart Rate 1: 98 bpm Height: 5'1" Weight: 152 lbs 01/25/2014 Blood Pressure 1: 120/78 Code: 8480-6 BMI: 29.3 Code: 21470-6 Heart Rate 1: 104 bpm Height: 5'1" Weight: 155 lbs 01/10/2014 Blood Pressure 1: 138/88 Code: 8480-6 Temperature: 37.1 (C) / 98.7 (F) Weight: 156 lbs 09/23/2013 Blood Pressure 1: 128/78 Code: 8480-6 BMI: 28.9 Code: 56387-8 Heart Rate 1: 88 bpm Height: 5'1" Weight: 153 lbs 09/09/2013 Blood Pressure 1: 110/68 Code: 8480-6 BMI: 28.5 Code: 52760-1 Heart Rate 1: 90 bpm Height: 5'1" SpO2: 90% Weight: 151 lbs 06/03/2013 Blood Pressure 1: 132/82 Code: 8480-6 BMI: 28.9 Code: 60880-9 Heart Rate 1: 88 bpm Height: 5'1" Weight: 153 lbs 02/04/2013 Blood Pressure 1: 140/90 Code: 8480-6 BMI: 29.3 Code: 95446-1 Heart Rate 1: 88 bpm Height: 5'1" Weight: 155 lbs 12/31/2012 Blood Pressure 1: 102/76 Code: 8480-6 BMI: 29.6 Code: 18496-8 Heart Rate 1: 112 bpm Height: 5'1" Weight: 156 lbs 8 oz 10/01/2012 Blood Pressure 1: 116/78 Code: 8480-6 BMI: 29.0 Code: 61357-8 Height: 5'2" Weight: 156 lbs 09/03/2012 Blood Pressure 1: 132/88 Code: 8480-6 Heart Rate 1: 88 bpm Weight: 154 lbs 8 oz 06/26/2011 Blood Pressure 1: 82/58 Code: 8480-6 BMI: 27.5 Code: 65811-7 Heart Rate 1: 80 bpm Height: 5'1" Respiratory Rate: 20 bpm Weight: 145 lbs 8 oz Functional Status No Functional Status data History of Present Illness Symptom Name Status Resu lt Effective Date Notes hypertension Quality mily aida hypertension 03/03/2018 None [...] acute illness 10/13/2017 improved hypertension Quality mily aida hypertension 08/07/2017 None hypertension Onset and Resolution [...] of the thyroid 03/18/2017 None 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 P ATIENT, LEVEL III Diagnosis: Essential (primary) hypertension[ICD10: I10] Disha Robbins MD, [facility] CPT-4: 64316 03/03/2018 ([id number]) 51256 EST. 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 P ATIENT, LEVEL III Diagnosis: Other hypotension[ICD10: I95.89] Diagnosis: Ventricular tachycardia[ICD10: I47.2] Disha Robbins MD, [facility] CPT-4: 89152 10/13/2017 ([id number]) 30720 EST. P ATIENT, LEVEL III Diagnosis: Essential (primary) hypertension[ICD10: I10] Disha Robbins MD, [facility] CPT-4: 18460 08/07/2017 ([id number]) 54885 EST. P ATIENT, LEVEL III Diagnosis: Open bite of left upper arm, initial encounter[ICD10: S41.152A] Disha Robbins MD, [facility] CPT-4: 91665 05/27/2017 ([id number]) 05903 EST. P ATIENT, LEVEL III Diagnosis: Essential (primary) hypertension[ICD10: I10] Disha Robbins MD, [facility] CPT-4: 72428 04/10/2017 ([id number]) Miscellaneou s no charge Diagnosis: Essential (primary) hypertension[ICD10: I10] Tanna Jimmy Disha Itzel MD, [facility] CPT-4: 53163 03/25/2017 ([id number]) 31829 EST. P ATIENT, LEVEL IV Diagnosis: Essential (primary) hypertension[ICD10: I10] Diagnosis: Atrophy of thyroid (acquired)[ICD10: E03.4] Diagnosis: Mixed hyperlipidemia[ICD10: E78.2] Disha Robbins MD, [facility] CPT- 4: 40909 03/18/2017 ([id number]) 16133 EST. P ATIENT, LEVEL III Diagnosis: Cough[ICD10: R05] Diagnosis: Acute bronchitis, unspecified[ICD10: J20.9] Giovanna Robbins MD, [facility] CPT-4: 54540 12/17/2016 ([id number]) 13875 EST. P ATIENT, LEVEL IV Diagnosis: Atrophy of thyroid (acquired)[ICD10: E03.4] Diagnosis: Mixed hyperlipidemia[ICD10: E78.2] Diagnosis: Generalized anxiety disorder[ICD10: F41.1] Disha Robbins MD, [facility] CPT-4: 91813 09/17/2016 ([id number]) 61015 EST. P ATIENT, LEVEL III Diagnosis: Atrophy of thyroid (acquired)[ICD10: E03.4] Diagnosis: Generalized anxiety disorder[ICD10: F41.1] Disha Robbins MD, [facility] CPT-4: 66272 05/20/2016 36265 EST. PATIENT, LEVEL II Diagnosis: Blister (nonthermal), right great toe, initial encounter[ICD10: S90.421A] Giovanna Robbins MD, [facility] CPT-4: 43399 10/06/2015 ([id number]) 66915 EST. P ATIENT, LEVEL IV Diagnosis: Elevated blood-pressure reading, without diagnosis of hypertension[ICD10: R03.0] Diagnosis: Mixed hyperlipidemia[ICD10: E78.2] Diagnosis: Hypothyroidism, unspecified[ICD10: E03.9] Giovanna Robbins MD, [facility] CPT-4: 90567 09/21/2015 ([id number]) 92509 EST. P ATIENT, LEVEL IV Diagnosis: HYPERLIPIDEMIA[ICD9: 272.4] Diagnosis: HYPOTHYROIDISM[ICD9: 244.9] Diagnosis: Need for pneumococcal vaccine[ICD9: V03.82] Disha Robbins MD, [facility] CPT-4: 74808 07/26/2014 ([id number]) 35781 EST. P ATIENT, LEVEL IV Diagnosis: HYPERLIPIDEMIA[ICD9: 272.4] Diagnosis: HYPOTHYROIDISM[ICD9: 244.9] Diagnosis: DEPRESSIVE DISORDER NEC[ICD9: 311] Disha Robbins MD, [facility] CPT- 4: 40204 01/25/2014 ([id number]) 08859 EST. P ATIENT, LEVEL III Diagnosis: ACUTE PHARYNGITIS[ICD9: 462] Giovanna Robbins MD, [facility] CPT- 4: 97144 01/10/2014 ([id number]) 32179 EST. P ATIENT, LEVEL III Diagnosis: GENERALIZED ANXIETY DISEASE[ICD9: 300.02] Diagnosis: Ear pain[ICD9: 388.70] Disha Robbins MD, [facility] CPT-4: 46756 09/23/2013 ([id number]) 04157 EST. P ATIENT, LEVEL IV Diagnosis: BACTERIAL PNEUMONIA[ICD9: 482.9] Diagnosis: Encounter for long-term (current) use of other medications[ICD9: V58.69] Diagnosis: HYPOTHYROIDISM[ICD9: 244.9] Diagnosis: DEPRESSIVE DISORDER NEC[ICD9: 311] Disha Robbins MD, [facility] CPT- 4: 80579 09/09/2013 ([id number]) 71330 EST. 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 P ATIENT, LEVEL IV Diagnosis: Renal insufficiency[ICD9: 593.9] Diagnosis: HYPERLIPIDEMIA[ICD9: 272.4] Diagnosis: DEPRESSIVE DISORDER NEC[ICD9: 311] Diagnosis: KIMANI (generalized anxiety disorder)[ICD9: 300.02] Disha Robbins MD, C CPT-4: 07264 10/01/2012 ([id number]) 15787 EST. P ATIENT, LEVEL IV Diagnosis: HYPERLIPIDEMIA[ICD9: 272.4] Diagnosis: DEPRESSIVE DISORDER NEC[ICD9: 311] Diagnosis: KIMANI (generalized anxiety disorder)[ICD9: 300.02] Disha Robbins MD, C CPT-4: 50852 09/03/2012 14525 EST. PATIENT, LEVEL IV Diagnosis: HYPOTHYROIDISM[ICD9: 244.9] Diagnosis: HYPERLIPIDEMIA[ICD9: 272.4] Diagnosis: ACUTE MAXILLARY SINUSITIS[ICD9: 461.0] Disha Robbins MD, [facility] CPT-4: 61505 06/26/2011 Plan of Care Planned Activity Notes [...] at home. 03/03/2018 Appointment: Disha Robbins WPtel: [address] [place], [place] [id number] (15 min) Moderate 03/03/2018 Patient Education: Patient Medication Summary Completed 03/03/2018 Appointment: Disha Robbins [facility]Ptel: [facility] (15 min) Moderate 02/03/2018 Visit Plan: AVM - discussed with th e patient and her - we will order an MRI of the brain. Pt has been advised that since the seizure she should not be driving and she should continue with Keppra as previously prescribed. 01/27/2018 Appointment: Disha Robbins WPtel: [phone] [facility] (15 min) Moderate 01/27/2018 Patient Education: Patient Medication Summary Completed 01/27/2018 Care Plan: MRI BRAIN STEM W/O DYE Pending 01/27/2018 Visit Plan: Blood pressure low - re commended pt to increase the sodium in her diet. Tachycardia - no change in dose of toprol at this time. 10/13/2017 Appointment: Disha Robbins WPtel: [facility] (15 min) Moderate 10/13/2017 Patient Education: [...] at home. 08/07/2017 Appointment: Disha Robbins WPtel: [facility] (15 min) Moderate 08/07/2017 Patient Education: Patient Medication Summary Completed 08/07/2017 Visit Plan: Cat bite to arm - cellu litis - continue with augmentin - call if not improving. Advised pt to have animal control picking belt operator the stray cat that bit her. 05/27/2017 Appointment: Disha Robbins WPtel: [facility] (15 min) Moderate 05/27/2017 Patient Education: [...] 04/10/2017 Appointment: D[facility] Robbins [facility]Ptel[facility] [phone] [facility] [place] (15 min) Moderate 04/10/2017 Patient Education: Patient [...] 03/18/2017 Appointment: D[facility] Robbins [facility]Ptel[facility] [phone] [facility] [place] (15 min) Moderate 03/18/2017 Patient Education: Patient [...] worsen. 12/17/2016 Appointment: Giovanna Gilmore WPtel: [phone] [phone] (30 min) Complex 12/17/2016 Patient Education: [...] medications. 09/17/2016 Appointment: Disha Robbins WPtel: [phone] [facility] [place] [place] (15 min) Moderate 09/17/2016 Patient Education: Patient [...] current medications. 05/20/2016 Appointment: Disha Robbins WPtel: [phone] [facility] [place] (15 min) Moderate 05/20/2016 Patient Education: Patient Medication Summary Completed 05/20/2016 Care Plan: Tsh Pending 05/20/2016 Care Plan: Free T4 Pending 05/20/2016 Care Plan: SCREENINGMAMMOGRAPHYDIGITAL LOINC : 41104-3 Pending 12/12/2015 Visit Plan: Medicare Exam - [...] care surrogate. 12/11/2015 Appointment: T[facility] Marquez [facility]el[facility] [phone] [facility] [facility] - Annual Wellness Visit 12/11/2015 [...] current medications. 07/26/2014 Appointment: Disha Robbins WPtel: [facility] [place] Follow up 07/26/2014 Patient Education: Patient Medication [...] medications. 01/25/2014 Appointment: Disha Robbins WPtel: [phone] [facility] [place] Follow up 01/25/2014 Patient Education: Patient [...] Completed 01/10/2014 Appointment: Disha Robbins WPtel: [phone] [facility] [place] Follow up 12/02/2013 Visit Plan: Cerumen [...] current medications. 09/23/2013 Appointment: Disha Robbins WPtel: [facility] [place] Follow up 09/23/2013 Patient Education: [...] current medications. 09/09/2013 Appointment: Disha Robbins WPtel: [facility] [place] [facility] follow up 09/09/2013 Patient Education: Patient Medication [...] not improving. 06/03/2013 Appointment: Disha Robbins WPtel: [phone] [facility] [place] Follow up 06/03/2013 Patient Education: Patient Medication [...] ETHEL. 02/04/2013 Appointment: Disha Robbins WPtel: [phone] [facility] [place] Other 02/04/2013 Patient Education: Patient Medication Summary Completed 02/04/2013 Appointment: Disha Robbins WPtel: [facility] Follow up 01/28/2013 Visit Plan: Extrapyramidal [...] of medications. 12/31/2012 Appointment: Disha Robbins WPtel: [facility] Follow up 12/31/2012 Patient Education: Patient [...] 10/01/2012 Appointment: Disha Robbins [facility]Ptel: [phone] [facility] [place] Follow up 10/01/2012 Patient Education: Patient Medication [...] 09/03/2012 Appointment: Disha Robbins [facility]Ptel: [phone] [facility] [place] Follow up 09/03/2012 Patient Education: Patient Medication [...] time. 06/26/2011 Appointment: Disha Robbins [facility]Ptel: [phone] [facility] [place] Other 06/26/2011 Patient Education: Patient Medication Summary [...] if the symptoms are not improving. . Elevated Blood Pr essure - without [...] based on previous levels of control. . Cat bite to arm - cellulitis - continue with augmentin - call if not improving. Advised pt to have animal control picking belt operator the stray cat that bit her. . Rash-does not appe ar to be [...] 1/2 levaquin, on Friday take full levaquin, friday/ levaquin and Friday full levaquin, then stop. [...] Patient verbalized understanding of plan. go to [employer] [facility] xt week and get a flu [...]
--- OUTSIDE RECORDS SUMMARY | 2019-11-16 09:06 | XMS REPORT | CCD ---
Author Author Nikole Robbins Organization Disha Robbins MD, [facility] Address [address] [place] [address] Phone Care Team Providers Care [facility]one Picker Name Role Phone PP Unavailable CCM Unavailable Summary Purpose Interface Exchange Insurance Providers Payer name Policy type / Coverage type Covered green party ID Effective Begin Date Effective End Date WPS Medicare Part B Medicare Part B [id number] 2018 Unknown [employer] Medicare Part B [id number] Unknown Family history Son Diagnosis Age At [...] ntly unemployed 06/26/[address]: 297578988 Never smoker 06/26/[address]: 734411928 Never drinks alcohol 06/26/2011 Has the patient [...] Instructions olanzapine 2.5 mg ta blet RxNorm: 501022 TAKE ONE TABLET BY MO UT ONCE DAILY 12/23/2017 No Stop Date Active fluoxetine 20 mg cap k[place] RxNorm: 376725 TAKE ONE CAPSULE BY M OUTH ONCE DAILY 11/14/2017 No Stop Date Active lovastatin 20 mg tablet RxNorm: 058941 Tablet(s) TAKE ONE TABLET BY MOUTH AT BE DTIPR 10/24/2017 10/18/2018 Ac tive KCL 20 meq RxNorm: 1 PO BID 10/13/2017 No S top Date Active niacin ER 500 mg tab let,extended release RxNorm: 918797 1 Tablet(s) PO QHS 10/13/2017 No Stop Date Active cefdinir 300 mg capsule RxNorm: 437193 1 Capsule(s) PO BID 09/30/2017 10/06/2017 Inactive cefdinir 300 mg capsule RxNorm: 591884 1 Capsule(s) PO BID 09/30/2017 09/29/2017 Inactive Zithromax Z-Yan 250 mg tablet RxNorm: 970127 1 Tablet(s) PO UD 09/30/2017 10/12/2017 Inactive z pack as directed lovastatin 20 mg tablet RxNorm: 210776 Tablet(s) TAKE ONE TABLET BY MOUTH AT BE DTIPR 09/10/2017 10/23/2017 Inactive Synthroid 75 mcg tablet RxNorm: 256380 TAKE ONE TABLET BY MOUTH ONCE DAILY 08/01/2017 No Stop Date Active olanzapine 2.5 mg ta blet RxNorm: 178544 TAKE ONE TABLET BY MO UTH ONCE DAILY 05/27/2017 11/22/2017 In active Zithromax Z-Yan 250 mg tablet RxNorm: 975272 1 Tablet(s) PO UD 04/29/2017 09/29/2017 Inactive z pack as directed fluoxetine 20 mg cap kameron RxNorm: 081649 TAKE ONE CAPSULE BY M OUTH ONCE DAILY 04/28/2017 10/24/2017 In active lovastatin 20 mg tablet RxNorm: 123147 TAKE ONE TABLET BY MOUTH AT BEDTIME 04/28/2017 09/09/2017 In active Synthroid 75 mcg tablet RxNorm: 896230 TAKE ONE TABLET BY MOUTH ONCE DAILY 04/08/2017 07/31/2017 In active losartan 50 mg tablet RxNorm: 209523 1 Tablet(s) PO daily 03/20/2017 10/08/2017 Inactive losartan 50 mg tablet RxNorm: 618922 1 Tablet(s) PO daily 03/18/2017 03/19/2017 Inactive olanzapine 2.5 mg ta blet RxNorm: 478590 TAKE ONE TABLET BY MO UTH ONCE DAILY 02/28/2017 05/26/2017 In active Kenalog 40 mg/mL kassie pension for injection RxNorm: 2858427 Milliliter(s) Inj 12/20/2016 12/20/2016 In active ceftriaxone 500 mg s olution for injection RxNorm: 9416710 1 Milliliter(s) Inj 12/17/2016 12/17/2016 In active Zithromax Z-Yan 250 mg tablet RxNorm: 559733 1 Tablet(s) PO UD 12/17/2016 12/21/2016 Inactive zpack Kenalog 40 mg/mL kassie pension for injection RxNorm: 0078176 1 Milliliter(s) Inj 12/17/2016 12/17/2016 In active Synthroid 75 mcg tablet RxNorm: 742676 TAKE ONE TABLET BY MOUTH ONCE DAILY 11/08/2016 04/06/2017 In active lovastatin 20 mg tablet RxNorm: 694466 TAKE ONE TABLET BY MOUTH AT BEDTIME 10/28/2016 04/25/2017 In active fluoxetine 20 mg cap kameron RxNorm: 593441 TAKE ONE CAPSULE BY [facility] ONCE DAILY 10/28/2016 04/25/2017 In active Synthroid 75 mcg tablet RxNorm: 771281 TAKE ONE TABLET BY MOUTH ONCE DAILY 10/08/2016 11/06/2016 In active olanzapine 2.5 mg ta blet RxNorm: 050292 TAKE ONE TABLET BY MO UTH ONCE DAILY 07/29/2016 12/25/2016 In active Zithromax Z-Yan 250 mg tablet RxNorm: 278310 1 Tablet(s) PO UD 07/29/2016 09/16/2016 Inactive zpack as directed lovastatin 20 mg tablet RxNorm: 067329 TAKE ONE TABLET BY MOUTH AT BEDTIME 07/02/2016 10/27/2016 In active olanzapine 2.5 mg ta blet RxNorm: 19990922 TAKE ONE TABLET BY MO UTH ONCE DAILY 04/29/2016 09/16/2016 In active olanzapine 2.5 mg ta blet RxNorm: 931366 TAKE ONE TABLET BY MO UTH ONCE DAILY 04/29/2016 04/28/2016 In active fluoxetine 20 mg cap kameron RxNorm: 971014 TAKE ONE CAPSULE BY M OUTH ONCE DAILY 03/26/2016 09/21/2016 In active olanzapine 2.5 mg ta blet RxNorm: 024224 Tablet(s) TAKE ONE TA BLET BY MOUTH ONCE DAILY 01/31/2016 03/30/2016 Inactive olanzapine 2.5 mg ta blet RxNorm: 343665 Tablet(s) TAKE ONE TA BLET BY MOUTH ONCE DAILY 01/25/2016 01/30/2016 Inactive lovastatin 20 mg tablet RxNorm: 089129 TAKE ONE TABLET BY MOUTH AT BEDTIME 12/28/2015 06/24/2016 In active fluoxetine 20 mg cap kameron RxNorm: 373301 Capsule(s) TAKE ONE C APSULE BY MOUTH ONCE DAILY 12/28/2015 09/16/2016 Inactive olanzapine 2.5 mg ta blet RxNorm: 503803 TAKE ONE TABLET BY MO UTH ONCE DAILY 11/24/2015 01/22/2016 In active mupirocin 2 % topica l ointment RxNorm: 390389 1 Application TOP BID 10/06/2015 10/12/2015 Inactive Synthroid 75 mcg tablet RxNorm: 804957 Tablet(s) PO daily TAKE ONE TABLET BY MO UTH EVERY DAY 09/18/2015 09/11/2016 Inactive [SAVINGS FOR NON-COVERED DR UGS -- BIN:[id number], PCN: ASPROD1, Group: XXXXX, ID# XXXXXXX, Questions: . THIS IS NOT INSURANCE.] Synthroid 75 mcg tablet RxNorm: 405852 Tablet(s) PO daily TAKE ONE TABLET BY MO UTH EVERY DAY 09/15/2015 09/17/2015 Inactive [SAVINGS FOR NON-COVERED DR UGS -- BIN:261383, PCN: ASPROD1, Group: XXXXX, ID# XXXXXXX, Questions: . THIS IS NOT INSURANCE.] Synthroid 75 mcg tablet RxNorm: 591275 Tablet(s) TAKE ONE TABLET BY MOUTH EVERY DAY 09/14/2015 09/14/2015 Inactive [SAVINGS FOR NON-COVERED DRUGS -- BIN:00 3585, PCN: ASPROD1, Group: XXXXX, ID# XXXXXXX, Questions: . THIS IS NOT INSURANCE.] fluoxetine 20 mg cap kameron RxNorm: 252049 TAKE ONE CAPSULE BY M OUTH ONCE DAILY 08/24/2015 12/21/2015 In active lovastatin 20 mg tablet RxNorm: 741641 1 Tablet(s) PO QHS TAKE ONE TABLET BY MO UTH AT BEDTIME 05/29/2015 12/24/2015 Inactive [SAVINGS FOR NON-COVERED DR UGS -- BIN:[id number], PCN: ASPROD1, Group: XXXXX, ID# XXXXXXX, Questions: . THIS IS NOT INSURANCE.] olanzapine 2.5 mg ta blet RxNorm: 19990922 TAKE ONE TABLET BY MO UTH ONCE DAILY 05/25/2015 11/20/2015 In active olanzapine 2.5 mg ta blet RxNorm: 19990922 1 Tablet(s) daily PATRIZIA E ONE TABLET BY MOUTH EVERY DAY 02/27/2015 05/24/2015 Inactive [SAVINGS FOR NON-COVERED DR UGS -- BIN:146543, PCN: ASPROD1, Group: XXXXX, ID# XXXXXXX, Questions: . THIS IS NOT INSURANCE.] fluoxetine 20 mg cap kameron RxNorm: 603857 Capsule(s) TAKE ONE C APSULE BY MOUTH EVERY DAY 02/27/2015 08/23/2015 Inactive prednisone 20 mg tablet RxNorm: 356506 1 Tablet(s) PO BID 01/16/2015 01/18/2015 Inactive prednisone 20 mg tablet RxNorm: 680277 1 Tablet(s) PO BID 01/16/2015 01/15/2015 Inactive Zithromax Z-Yan 250 mg tablet RxNorm: 737348 1 Tablet(s) PO as doc tor directed 01/16/2015 07/28/2016 In active zpack as directed olanzapine 2.5 mg ta blet RxNorm: 19990922 1 Tablet(s) daily PATRIZIA E ONE TABLET BY MOUTH EVERY DAY 11/24/2014 02/21/2015 Inactive [SAVINGS FOR NON-COVERED DR UGS -- BIN:274789, PCN: ASPROD1, Group: XXXXX, ID# XXXXXXX, Questions: . THIS IS NOT INSURANCE.] lovastatin 20 mg tablet RxNorm: 115230 1 Tablet(s) PO QHS TAKE ONE TABLET BY MO UTH AT BEDTIME 10/26/2014 05/23/2015 Inactive [SAVINGS FOR NON-COVERED DR UGS -- BIN:[id number], PCN: ASPROD1, Group: XXXXX, ID# XXXXXXX, Questions: . THIS IS NOT INSURANCE.] Synthroid 75 mcg tablet RxNorm: 373919 1 Tablet(s) PO daily TAKE ONE TABLET BY MOUTH EVERY DAY 09/19/2014 12/17/2014 Inactive Synthroid 75 mcg tablet RxNorm: 666396 Tablet(s) TAKE ONE TABLET BY MOUTH EVERY DAY 09/19/2014 09/13/2015 Inactive [SAVINGS FOR NON-COVERED DRUGS -- BIN:00 3585, PCN: ASPROD1, Group: XXXXX, ID# XXXXXXX, Questions: . THIS IS NOT INSURANCE.] fluoxetine 20 mg cap kameron RxNorm: 133096 TAKE ONE CAPSULE BY M OUTH EVERY DAY 08/04/2014 01/30/2015 In active fluoxetine 20 mg cap kameron RxNorm: 020708 1 Capsule(s) PO daily TAKE ONE CAPSULE BY MOUTH EVERY DAY 08/02/2014 08/03/2014 Inactive [SAVINGS FOR UNINSURED ERNIE ENTS -- BIN:[id number], PCN: ASPROD1, Group: [id number], ID# [id number], Process claim through [employer], for questions: . THIS IS NOT INSURANCE.] lovastatin 20 mg tablet RxNorm: 839957 TAKE ONE TABLET BY MOUTH AT BEDTIME 07/25/2014 10/22/2014 In active olanzapine 2.5 mg ta blet RxNorm: 105804 Tablet(s) TAKE ONE TA BLET BY MOUTH EVERY DAY 07/19/2014 07/18/2014 Inactive olanzapine 2.5 mg ta blet RxNorm: 973388 TAKE ONE TABLET BY MO UTH EVERY DAY 07/19/2014 10/16/2014 In active Synthroid 75 mcg tablet RxNorm: 136486 1 Tablet(s) PO daily TAKE ONE TABLET BY MOUTH EVERY DAY 06/20/2014 06/19/2014 Inactive Synthroid 75 mcg tablet RxNorm: 368707 TAKE ONE TABLET BY MOUTH EVERY DAY 06/20/2014 09/18/2014 In active lovastatin 20 mg tablet RxNorm: 158032 TAKE ONE TABLET BY MOUTH AT BEDTIME 04/22/2014 07/20/2014 In active olanzapine 2.5 mg ta blet RxNorm: 556376 TAKE ONE TABLET BY MO UTH EVERY DAY 04/21/2014 07/18/2014 In active Synthroid 75 mcg tablet RxNorm: 256597 TAKE ONE TABLET BY MOUTH EVERY DAY 03/22/2014 06/19/2014 In active fluoxetine 20 mg cap kameron RxNorm: 070767 TAKE ONE CAPSULE BY M OUTH EVERY DAY 02/02/2014 07/31/2014 In active lovastatin 20 mg tablet RxNorm: 064746 TAKE ONE TABLET BY MOUTH AT BEDTIME 01/20/2014 04/19/2014 In active olanzapine 2.5 mg ta blet RxNorm: 151308 TAKE ONE TABLET BY MO UTH EVERY DAY 01/14/2014 04/13/2014 In active amoxicillin 500 mg t ablet RxNorm: 637670 1 Tablet(s) PO TID 01/10/2014 01/16/2014 Inactive Rocephin 500 mg solu tion for injection RxNorm: 225919 Inj 01/1001/10/2014 Inactive Synthroid 75 mcg tablet RxNorm: 246929 Tablet(s) PO TAKE ONE TABLET BY MOUTH EV FERCHO DAY 12/27/2013 03/21/2014 Inactive lovastatin 20 mg tablet RxNorm: 559405 Tablet(s) PO TAKE ONE TABLET BY MOUTH AT BEDTIME 12/20/2013 01/19/2014 Inactive olanzapine 2.5 mg ta blet RxNorm: 749473 Tablet(s) PO TAKE ONE TABLET BY MOUTH EVERY DAY 12/17/2013 01/13/2014 Inactive Synthroid 75 mcg tablet RxNorm: 130499 Tablet(s) PO TAKE ONE TABLET BY MOUTH EV FERCHO DAY 11/22/2013 12/26/2013 Inactive lovastatin 20 mg tablet RxNorm: 833945 Tablet(s) PO TAKE ONE TABLET BY MOUTH AT BEDTIME 11/15/2013 12/19/2013 Inactive olanzapine 2.5 mg ta blet RxNorm: 127601 Tablet(s) PO TAKE ONE TABLET BY MOUTH EVERY DAY 11/15/2013 12/16/2013 Inactive Synthroid 75 mcg tablet RxNorm: 359191 Tablet(s) PO TAKE ONE TABLET BY MOUTH EV FERCHO DAY 10/25/2013 11/21/2013 Inactive lovastatin 20 mg tablet RxNorm: 460665 Tablet(s) PO TAKE ONE TABLET BY MOUTH AT BEDTIME 10/18/2013 11/14/2013 Inactive Zithromax 250 mg tablet RxNorm: 878442 Tablet(s) PO 08/30/2013 07/26/2014 Inactive zpac k as directed Synthroid 75 mcg tablet RxNorm: 693084 Tablet(s) PO TAKE ONE TABLET BY MOUTH EV FERCHO DAY 05/24/2013 10/24/2013 Inactive lovastatin 20 mg tablet RxNorm: 053929 Tablet(s) PO TAKE ONE TABLET BY MOUTH AT BEDTIME 04/19/2013 10/17/2013 Inactive olanzapine 2.5 mg ta blet RxNorm: 370766 1 Tablet(s) PO 02/04/2013 09/01/2013 Inactive fluoxetine 20 mg cap kameron RxNorm: 348587 Capsule(s) PO TAKE ON E CAPSULE BY MOUTH EVERY DAY 01/08/2013 02/01/2014 Inactive olanzapine 5 mg tablet RxNorm: 463277 1/2 Tablet(s) PO daily zyprexa 12/31/2012 02/03/2013 In active Synthroid 75 mcg tablet RxNorm: 758135 1 Tablet(s) PO daily 09/29/2012 03/27/2013 Inactive Vitamin D2 50,000 un it capsule RxNorm: 623774 1 Capsule(s) PO QW 09/29/2012 09/16/2016 Inactive one weekly x 8 weeks then 1000units dorcas y thereafter Synthroid 75 mcg tablet RxNorm: 611704 1 Tablet(s) PO daily 09/29/2012 09/28/2012 Inactive lovastatin 20 mg tablet RxNorm: 562753 Tablet(s) PO TAKE ONE TABLET BY MOUTH AT BEDTIME 09/21/2012 04/18/2013 Inactive fluoxetine 20 mg cap kameron RxNorm: 856140 1 Capsule(s) PO daily TAKE ONE CAPSULE BY MOUTH EVERY DAY 09/16/2012 01/07/2013 Inactive Synthroid 50 mcg tablet RxNorm: 649089 1 Tablet(s) PO daily 09/14/2012 12/31/2012 Inactive brand name only fluoxetine 20 mg cap kameron RxNorm: 304786 Capsule(s) PO TAKE ON E CAPSULE BY MOUTH EVERY DAY 09/07/2012 09/15/2012 Inactive Synthroid 50 mcg tablet RxNorm: 743236 1 Tablet(s) PO daily 09/07/2012 09/13/2012 Inactive brand name only niacin ER 500 mg tab let,extended release RxNorm: 948856 2 Tablet(s) PO daily 09/03/2012 10/12/2017 In active lovastatin 20 mg tablet RxNorm: 456777 1 Tablet(s) PO QHS TAKE ONE TABLET BY MO [facility] AT BEDTIME 08/26/2012 09/20/2012 Inactive Zithromax Z-Yan 250 mg tablet RxNorm: 597859 Tablet(s) PO UD 08/13/2012 12/31/2012 Inactive fluoxetine 20 mg cap kameron RxNorm: 913915 Capsule(s) PO 05/11/2012 09/06/2012 Inactive TAKE ONE CAPSULE BY MOUTH EVERY DAY fluoxetine 20 mg cap kameron RxNorm: 790060 1 Capsule(s) PO daily 01/06/2012 05/04/2012 Inactive Zyprexa 5 mg Tab RxNorm: 720650 Tablet(s) PO 01/06/2012 12/31/2012 Inactive TAKE ONE TABLET BY MOUTH EVERY DAY lovastatin 20 mg tablet RxNorm: 469525 Tablet(s) PO 12/24/2011 08/26/2012 Inactive TAKE ONE TABLET BY MOUTH AT BEDTIME Rocephin 500 mg Solu tion for Injection RxNorm: 090635 Inj 06/2612/31/2012 Inactive Keppra 500 mg tablet RxNorm: 780122 1 Tablet(s) PO BID No Start Date Active omeprazole 20 mg Cap , Delayed Release RxNorm: 913810 1 Capsule(s) PO BID No Start Date Active oxycodone-acetaminop hen 5 mg-325 mg Tab RxNorm: 4501651 1 Tablet(s) PO Q4 TN N No Start Date Active acyclovir 800 mg tablet RxNorm: 783739 1 Tablet(s) PO daily No Start Date Active letrozole 2.5 mg Tab RxNorm: 261880 1 Tablet(s) PO daily No Start Date Active multivitamin Cap RxNorm: 1 Capsule(s) PO daily No Start Date Active metoprolol tartrate 25 mg tablet RxNorm: 278211 1/2 Tablet(s) PO BID No Start Date Active Aspirin Low Dose 81 mg tablet,delayed release RxNorm: 901129 1 Tablet(s) PO daily No Start Date Active Calcium 600 + D(3) 6 00 mg (1,500)-200 unit Tab RxNorm: 569984 1 Tablet(s) PO daily No Start Date Active Vitamin B-12 1,000 m cg tablet RxNorm: 232867 1 Tablet(s) PO daily No Start Date Active ferrous sulfate 325 mg (65 mg iron) tablet RxNorm: 226269 1 Tablet(s) PO daily No Start Date Active KCL 20 meq RxNorm: 1 PO daily No Start Date 10/12/2017 Inactive Zyprexa 5 mg Tab RxNorm: 519550 1 Tablet(s) PO daily No Start Date 01/05/2012 Inactive Zithromax Z-Yan 250 mg tablet RxNorm: 802198 Tablet(s) PO UD No Start Date 08/12/2012 Inactive Zithromax Z-Yan 250 mg tablet RxNorm: 348709 1 Tablet(s) PO UD No Start Date 04/28/2017 Inactive z pack as directed niacin ER 500 mg tab let,extended release RxNorm: 552833 1 Tablet(s) PO daily No Start Date 09/02/2012 Inactive Vitamin D2 50,000 un it capsule RxNorm: 724014 1 Capsule(s) PO QW No Start Date 09/28/2012 Inactive one weekly x 8 weeks then 1000units dorcas y thereafter Synthroid 50 mcg tablet RxNorm: 568960 1 Tablet(s) PO daily No Start Date 09/06/2012 Inactive brand name only acyclovir 400 mg Tab RxNorm: 795238 1 Tablet(s) PO BID No Start Date 09/15/2012 Inactive Zithromax Z-Yan 250 mg tablet RxNorm: 481539 1 Tablet(s) PO as doc tor directed No Start Date 01/15/2015 Inactive zpack as directed fluoxetine 20 mg Tab RxNorm: 877329 1 Tablet(s) PO daily No Start Date 07/26/2014 Inactive REVLIMID 10 mg Cap RxNorm: 896161 1 Capsule(s) PO daily No Start Date 12/31/2012 Inactive lovastatin 20 mg Tab RxNorm: 526258 1 Tablet(s) PO QHS No Start Date 12/23/2011 Inactive aspirin 81 mg Cap, D elayed Release RxNorm: 144768 1 Capsule(s) PO daily No Start Date 12/30/2012 Inactive olanzapine 5 mg tablet RxNorm: 623337 1 Tablet(s) PO daily zyprexa No Start Date 12/30/2012 Inactive Zithromax 250 mg tablet RxNorm: 315776 Tablet(s) PO No Start Date 08/29/2013 Inactive zpac k as directed levofloxacin 500 mg Tab RxNorm: 968210 1 Tablet(s) PO daily No Start Date 06/26/2011 Inactive levothyroxine 50 mcg Tab RxNorm: 832764 1 Tablet(s) PO daily No Start Date 12/31/2012 Inactive dexamethasone 4 mg Tab RxNorm: 415755 2 Tablet(s) PO weekly No Start Date 12/31/2012 Inactive Medication Administered Medication Codes Instruc tions Start Date Status Kenalog 40 mg/mL suspension for injection RxNorm: 2101308 Milliliter 12/20/2016 No longer Active Kenalog 40 mg/mL suspension for injection RxNorm: 6420658 1Milliliter 12/17/2016 N o longer Active ceftriaxone 500 mg solution for injection RxNorm: 6950635 1Milliliter 12/17/2016 N o longer Active Rocephin 500 mg solution for injection RxNorm: 320247 01/10/2014 No longer A ctive Immunizations Vaccine [...] Item Item Code Result Date Free T4 Seo199 FREE T4 1.06 ng/dL 11/18/2016 Tsh Ord6 [...] 33.2 pg 10/22/2016 Cbc With Differential Ord2 Dale% 36.7 % 10/22/2016 Cbc With Differential Ord2 [...] 0.51 K/ul 10/22/2016 Cbc With Differential Ord2 Dale ABS# 0.6 K/ul 10/22/2016 Cbc With Differential Ord2 Eos ABS# 0.0 K/ul 10/22/2016 Cbc With Differential Ord2 Baso ABS# 0.0 K/ul 10/22/2016 Lipid Ord30 CHOL 99 mg/dL 10/22/2016 Lipid Ord30 HDL 38.0 mg/dl 10/22/2016 Lipid Ord30 TRIG 102 mg/dL 10/22/2016 Lipid Ord30 LDL 41 mg/dL 10/22/2016 Lipid Ord30 C/HDL 2.6 Ratio 10/22/2016 Comp Metabolic Qoj361 NA 135 mEq/L 10/22/2016 Comp Metabolic Klq352 K 4.5 mEq/L 10/22/2016 Comp Metabolic Ggy892 CL 102 mEq/L 10/22/2016 Comp Metabolic Gmy337 CO2 20.0 mEq/L 10/22/2016 Comp Metabolic Jcn563 AN ION GAP 18 10/22/2016 Comp Metabolic Nwt644 GL UCOSE 108 mg/dL 10/22/2016 Comp Metabolic Hzr942 Cr eat 1.1 mg/dL 10/22/2016 Comp Metabolic Gqc628 eG FR 53 ml/min/1.73m2 10/22 Comp Metabolic Vgl869 BUN 17 mg/dL 10/22/2016 Comp Metabolic Qxa085 B/ C Ratio 15.7 Ratio 10/22/2016 Comp Metabolic Rfk235 CA LCIUM 8.9 mg/dL 10/22/2016 Comp Metabolic Dli925 AL K PHOS 65 U/L 10/22/2016 Comp Metabolic Ahw232 T(SGOT) 14 U/L 10/22/2016 Comp Metabolic Snh055 AL T(SGPT) 19 U/L 10/22/2016 Comp Metabolic Uyr325 BI LI T 0.8 mg/dL 10/22/2016 Comp Metabolic Etm854 AL BUMIN 3.5 g/dL 10/22/2016 Comp Metabolic Vyd710 TP RO 7.0 g/dL 10/22/2016 Comp Metabolic Kvv039 GL OB 3.5 g/dL 10/22/2016 Comp Metabolic Cjd278 A/ G Ratio 1.0 Ratio 10/22/2016 Comp Metabolic Jzu408 Os mo 272 mOsmo 10/22/2016 Manual Differential Ord52 D-Neutr 38 % 10/22/2016 Manual Differential Ord52 D-Bands 15 % 10/22/2016 Manual Differential Ord52 D-Lymph 37 % 10/22/2016 Manual Differential Ord52 D-Eos 4 % 10/22/2016 Manual Differential Ord52 D-[place] 3 % 10/22/2016 Manual Differential Ord52 D-Aty Lymp 3 % 10/22/2016 Free T4 Yhh095 FREE T4 1.38 ng/dL 10/22/2016 Tsh Ord6 hTSH II 2.05 uIU/mL 10/22/2016 Free T4 Uet883 FREE T4 0.85 ng/dL 05/20/2016 Tsh Ord6 hTSH II 0.63 uIU/mL 05/20/2016 CHEM 14 5449788 AST 16 U/L 09/09/2013 CHEM 14 2595646 ALT 20 IU/L 09/09/2013 CHEM 14 3362326 BUN 17 MG/DL 09/09/2013 CHEM 14 7306525 ALBUMIN 3.6 GM/DL 09/09/2013 CHEM 14 7179778 CHLORIDE 102 MMOL/L 09/09/2013 CHEM 14 1664185 BILI TOT 0.3 MG/DL 09/09/2013 CHEM 14 7265073 ALK PHOS 88 U/L 09/09/2013 CHEM 14 9706916 SODIUM 138 MMOL/L 09/09/2013 CHEM 14 9588075 CREATINI NE 1.10 MG/DL 09/09/2013 CHEM 14 7980567 CALCIUM 9.0 MG/DL 09/09/2013 CHEM 14 2195456 POTASSIUM 4.8 MMOL/L 09/09/2013 CHEM 14 9364068 PROT TOT 6.7 GM/DL 09/09/2013 CHEM 14 7308097 GLUCOSE 113 MG/DL 09/09/2013 CHEM 14 3436276 BICARB 27 MMOL/L 09/09/2013 CHEM 14 8324631 ANION GAP 9 MEQ/L 09/09/2013 GFR CALC 8204523 GFR AA 60.0L ML/MIN 09/09/2013 GFR CALC 9309336 GFR NON -AA 50.0L ML/MIN 4 Review [...] rate 09/09/2013 None Full Exam - General 1995 Cardiovascular extremities Overall: no clubbing 09/09/2013 None Full Exam - General 1994 Cardiovascular auscultation of heart Overall: regular rate 09/09/2013 None Full Exam - General 1995 Cardiovascular auscultation of heart Overall: normal heart sounds 09/09/2013 None Full Exam - General 1994 Cardiovascular auscultation of heart Overall: no murmurs 09/09/2013 None Full Exam - General 1994 Abdomen abdominal exam Overall: no tenderness 09/09/2013 None Full Exam - General 1995 Abdomen [...] clubbing 12/31/2012 None Full Exam - General 1995 Cardiovascular auscultation of heart Overall: regular rate 12/31/2012 None Full Exam - General 1995 Cardiovascular auscultation of heart Overall: normal heart sounds 12/31/2012 None Full Exam - General 1995 Cardiovascular auscultation of heart Overall: no murmurs 12/31/2012 None Full Exam - General 1995 Abdomen abdominal exam Overall: no tenderness 12/31/2012 None Full Exam - General 1995 Abdomen abdominal exam Overall: normal bowel sounds 12/31/2012 None Full Exam - General 1995 Lymphatic neck nodes Overall: anterior cervical chain benign 12/31/2012 None Full Exam - General 1995 Lymphatic neck nodes Overall: posterior cervical chain benign 12/31/2012 None Full Exam - General 1995 Neurologic [...] Procedure Codes Date THER/PROPH/DIAG INJ SC/IM CPT-4: 33889 12/20/2016 TRIAMCINOLONE ACET I [place] NOS CPT-4: J3301 12/20/2016 TRIAMCINOLONE ACET I [place] NOS CPT-4: J3301 12/17/2016 ROCEPHIN, PER 250 MG CPT-4: J0696 12/17/2016 PPPS, SUBSEQ VISIT CPT- 4: G0439 12/11/2015 ADMIN PNEUMOCOCCAL V ACCINE Assigned to/Merissa Dupont CT: [id number] CPT-4: R3395[place] 07/26/2014 Pneumococcal Polysac charide Vaccine, 23-Valent, Ad CPT-4: 22095 07/26/2014 ROCEPHIN, PER 250 MG CPT-4: J0696 01/10/2014 ROUTINE VENIPUNCTURE CPT-4: 47987 09/09/2013 PRESCRIP TRANSMIT A ERX SY CPT-4: G8553 02/04/2013 PRESCRIP TRANSMIT A ERX SY CPT-4: G8553 12/31/2012 THER/PROPH/DIAG INJ SC/IM CPT-4: 66924 06/26/2011 ROCEPHIN, PER 250 MG CPT-4: J0696 06/26/2011 Vital Signs Date Vital 03/03/2018 Blood Pressure 1: 122/72 Code: 8480-6 BMI: 28.2 Code: 20884-8 Heart Rate 1: 100 bpm Height: 5'1" SpO2: 94% Weight: 149 lbs 01/27/2018 Blood Pressure 1: 112/70 Code: 8480-6 BMI: 27.8 Code: 77655-9 Heart Rate 1: 94 bpm Height: 5'1" SpO2: 94% Weight: 147 lbs 10/13/2017 Blood Pressure 1: 96/72 Code: 8480-6 BMI: 27.8 Code: 28615-6 Heart Rate 1: 106 bpm Height: 5'1" SpO2: 91% Weight: 147 lbs 08/07/2017 Blood Pressure 1: 120/80 Code: 8480-6 BMI: 29.7 Code: 29522-2 Heart Rate 1: 95 bpm Height: 5'1" SpO2: 94% Weight: 157 lbs 05/27/2017 Blood Pressure 1: 144/88 Code: 8480-6 BMI: 29.3 Code: 38175-6 Heart Rate 1: 94 bpm Height: 5'1" SpO2: 96% Weight: 155 lbs 04/10/2017 Blood Pressure 1: 140/88 Code: 8480-6 Blood Pressure 1: 126/78 Code: 8480-6 BMI: 28.5 Code: 97215-3 Heart Rate 1: 94 bpm Height: 5'1" SpO2: 96% Weight: 151 lbs 03/25/2017 Blood Pressure 1: 120/74 Code: 8480-6 03/18/2017 Blood Pressure 1: 150/98 Code: 8480-6 BMI: 28.6 Code: 55089-3 Heart Rate 1: 114 bpm Height: 5'1" SpO2: 96% Weight: 151 lbs 8 oz 12/17/2016 Blood Pressure 1: 146/86 Code: 8480-6 BMI: 26.1 Code: 97989-4 Heart Rate 1: 94 bpm Height: 5'1" SpO2: 95% Temperature: 36.1 (C ) / 97.0 (F) Weight: 138 lbs 09/17/2016 Blood Pressure 1: 148/88 Code: 8480-6 BMI: 26.5 Code: 55327-8 Heart Rate 1: 86 bpm Height: 5'1" SpO2: 93% Weight: 140 lbs 8 oz 05/20/2016 Blood Pressure 1: 128/82 Code: 8480-6 BMI: 26.3 Code: 43408-1 Heart Rate 1: 99 bpm Height: 5'1" SpO2: 92% Weight: 139 lbs 12/11/2015 Blood Pressure 1: 138/84 Code: 8480-6 BMI: 28.3 Code: 70988-7 Heart Rate 1: 95 bpm Height: 5'1" SpO2: 97% Waist Measure (cm): 89 cm Weight: 150 lbs 10/06/2015 Blood Pressure 1: 128/78 Code: 8480-6 BMI: 28.0 Code: 98635-3 Heart Rate 1: 94 bpm Height: 5'1" SpO2: 96% Weight: 148 lbs 09/21/2015 Blood Pressure 1: 126/94 Code: 8480-6 Blood Pressure 1: 152/78 Code: 8480-6 BMI: 28.0 Code: 72341-0 Heart Rate 1: 104 bpm Height: 5'1" SpO2: 98% Weight: 148 lbs 07/26/2014 Blood Pressure 1: 110/68 Code: 8480-6 BMI: 28.7 Code: 90881-4 Heart Rate 1: 98 bpm Height: 5'1" Weight: 152 lbs 01/25/2014 Blood Pressure 1: 120/78 Code: 8480-6 BMI: 29.3 Code: 01092-6 Heart Rate 1: 104 bpm Height: 5'1" Weight: 155 lbs 01/10/2014 Blood Pressure 1: 138/88 Code: 8480-6 Temperature: 37.1 (C) / 98.7 (F) Weight: 156 lbs 09/23/2013 Blood Pressure 1: 128/78 Code: 8480-6 BMI: 28.9 Code: 17696-4 Heart Rate 1: 88 bpm Height: 5'1" Weight: 153 lbs 09/09/2013 Blood Pressure 1: 110/68 Code: 8480-6 BMI: 28.5 Code: 26701-9 Heart Rate 1: 90 bpm Height: 5'1" SpO2: 90% Weight: 151 lbs 06/03/2013 Blood Pressure 1: 132/82 Code: 8480-6 BMI: 28.9 Code: 57467-4 Heart Rate 1: 88 bpm Height: 5'1" Weight: 153 lbs 02/04/2013 Blood Pressure 1: 140/90 Code: 8480-6 BMI: 29.3 Code: 03006-5 Heart Rate 1: 88 bpm Height: 5'1" Weight: 155 lbs 12/31/2012 Blood Pressure 1: 102/76 Code: 8480-6 BMI: 29.6 Code: 43025-2 Heart Rate 1: 112 bpm Height: 5'1" Weight: 156 lbs 8 oz 10/01/2012 Blood Pressure 1: 116/78 Code: 8480-6 BMI: 29.0 Code: 17686-7 Height: 5'2" Weight: 156 lbs 09/03/2012 Blood Pressure 1: 132/88 Code: 8480-6 Heart Rate 1: 88 bpm Weight: 154 lbs 8 oz 06/26/2011 Blood Pressure 1: 82/58 Code: 8480-6 BMI: 27.5 Code: 75229-7 Heart Rate 1: 80 bpm Height: 5'1" [...] of the thyroid 03/18/2017 None hypothyroid 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 P ATIENT, LEVEL III Diagnosis: Essential (primary) hypertension[ICD10: I10] Disha Robbins MD, C CPT-4: 02810 03/03/2018 ([id number]) 70030 EST. 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 P ATIENT, LEVEL III Diagnosis: Other hypotension[ICD10: I95.89] Diagnosis: Ventricular tachycardia[ICD10: I47.2] Dsiha Robbins MD, [facility] CPT-4: 03660 10/13/2017 ([id number]) 17565 EST. P ATIENT, LEVEL III Diagnosis: Essential (primary) hypertension[ICD10: I10] Disha Robbins MD, C CPT-4: 22895 08/07/2017 ([id number]) 17593 EST. P ATIENT, LEVEL III Diagnosis: Open bite of left upper arm, initial encounter[ICD10: S41.152A] Disha Robbins MD, [facility] CPT-4: 97543 05/27/2017 ([id number]) 40338 EST. P ATIENT, LEVEL III Diagnosis: Essential (primary) hypertension[ICD10: I10] Disha Robbins MD, C CPT-4: 90251 04/10/2017 ([id number]) Miscellaneou s no charge Diagnosis: Essential (primary) hypertension[ICD10: I10] Tanna Robbins MD, [facility] CPT-4: 31728 03/25/2017 ([id number]) 39418 EST. P ATIENT, LEVEL IV Diagnosis: Essential (primary) hypertension[ICD10: I10] Diagnosis: Atrophy of thyroid (acquired)[ICD10: E03.4] Diagnosis: Mixed hyperlipidemia[ICD10: E78.2] Disha Robbins MD, [facility] CPT- 4: 48405 03/18/2017 ([id number]) 27949 EST. P ATIENT, LEVEL III Diagnosis: Cough[ICD10: R05] Diagnosis: Acute bronchitis, unspecified[ICD10: J20.9] Giovanna Robbins MD, [facility] CPT-4: 27027 12/17/2016 ([id number]) 10611 EST. P ATIENT, LEVEL IV Diagnosis: Atrophy of thyroid (acquired)[ICD10: E03.4] Diagnosis: Mixed hyperlipidemia[ICD10: E78.2] Diagnosis: Generalized anxiety disorder[ICD10: F41.1] Disha Robbins MD, [facility] CPT-4: 15442 09/17/2016 ([id number]) 33916 EST. P ATIENT, LEVEL III Diagnosis: Atrophy of thyroid (acquired)[ICD10: E03.4] Diagnosis: Generalized anxiety disorder[ICD10: F41.1] Disha Robbins MD, [facility] CPT-4: 05277 05/20/2016 52564 EST. PATIENT, LEVEL II Diagnosis: Blister (nonthermal), right great toe, initial encounter[ICD10: S90.421A] Giovanna Robbins MD, [facility] CPT-4: 05746 10/06/2015 ([id number]) 67359 EST. P ATIENT, LEVEL IV Diagnosis: Elevated blood-pressure reading, without diagnosis of hypertension[ICD10: R03.0] Diagnosis: Mixed hyperlipidemia[ICD10: E78.2] Diagnosis: Hypothyroidism, unspecified[ICD10: E03.9] Giovanna Robbins MD, [facility] CPT-4: 94263 09/21/2015 ([id number]) 88933 EST. P ATIENT, LEVEL IV Diagnosis: HYPERLIPIDEMIA[ICD9: 272.4] Diagnosis: HYPOTHYROIDISM[ICD9: 244.9] Diagnosis: Need for pneumococcal vaccine[ICD9: V03.82] Disha Robbins MD, C CPT-4: 24226 07/26/2014 ([id number]) 70182 EST. P ATIENT, LEVEL IV Diagnosis: HYPERLIPIDEMIA[ICD9: 272.4] Diagnosis: HYPOTHYROIDISM[ICD9: 244.9] Diagnosis: DEPRESSIVE DISORDER NEC[ICD9: 311] Disha Robbins MD, [facility] CPT- 4: 95289 01/25/2014 ([id number]) 65768 EST. P ATIENT, LEVEL III Diagnosis: ACUTE PHARYNGITIS[ICD9: 462] Giovanna Robbins MD, [facility] CPT- 4: 78969 01/10/2014 ([id number]) 84496 EST. P ATIENT, LEVEL III Diagnosis: GENERALIZED ANXIETY DISEASE[ICD9: 300.02] Diagnosis: Ear pain[ICD9: 388.70] Disha Robbins MD, [facility] CPT-4: 49081 09/23/2013 ([id number]) 00543 EST. P ATIENT, LEVEL IV Diagnosis: BACTERIAL PNEUMONIA[ICD9: 482.9] Diagnosis: Encounter for long-term (current) use of other medications[ICD9: V58.69] Diagnosis: HYPOTHYROIDISM[ICD9: 244.9] Diagnosis: DEPRESSIVE DISORDER NEC[ICD9: 311] iDsha Robbins MD, [facility] CPT- 4: 14520 09/09/2013 ([id number]) 17484 EST. 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 P ATIENT, LEVEL IV Diagnosis: Renal insufficiency[ICD9: 593.9] Diagnosis: HYPERLIPIDEMIA[ICD9: 272.4] Diagnosis: DEPRESSIVE DISORDER NEC[ICD9: 311] Diagnosis: KIMANI (generalized anxiety disorder)[ICD9: 300.02] Disha Robbins MD, C CPT-4: 67691 10/01/2012 ([id number]) 10298 EST. P ATIENT, LEVEL IV Diagnosis: HYPERLIPIDEMIA[ICD9: 272.4] Diagnosis: DEPRESSIVE DISORDER NEC[ICD9: 311] Diagnosis: KIMANI (generalized anxiety disorder)[ICD9: 300.02] Disha Robbins MD, C CPT-4: 64902 09/03/2012 37807 EST. PATIENT, LEVEL IV Diagnosis: HYPOTHYROIDISM[ICD9: 244.9] Diagnosis: HYPERLIPIDEMIA[ICD9: 272.4] Diagnosis: ACUTE MAXILLARY SINUSITIS[ICD9: 461.0] Disha Robbins MD, [facility] CPT-4: 24633 06/26/2011 Plan of Care Planned Activity Notes C odes Status Date Visit Plan: Hypertension - well con trolled - continue with current medications, continue with no added salt diet. Pt has been encouraged to exercise daily. The pt has been advised to call the office if there are any acute concerns about change in blood pressure readings at home. 03/03/2018 Patient Education: Patient Medication Summary Completed 03/03/2018 Appointment: Disha Robbins WPtel: [facility] (15 min) Moderate 02/03/2018 Visit Plan: AVM - discussed with th e patient and her - we will order an MRI of the brain. Pt has been advised that since the seizure she should not be driving and she should continue with Keppra as previously prescribed. 01/27/2018 Appointment: Disha Robbins WPtel: [facility] (15 min) Moderate 01/27/2018 Patient Education: Patient Medication Summary Completed 01/27/2018 Care Plan: MRI BRAIN STEM W/O DYE Pending 01/27/2018 Visit Plan: Blood pressure low - re commended pt to increase the sodium in her diet. Tachycardia - no change in dose of toprol at this time. 10/13/2017 Appointment: Disha Robbins WPtel: [phone] [facility] (15 min) Moderate 10/13/2017 Patient Education: [...] at home. 08/07/2017 Appointment: Disha Robbins WPtel: [phone] [facility] (15 min) Moderate 08/07/2017 Patient Education: Patient Medication Summary Completed 08/07/2017 Visit Plan: Cat bite to arm - cellu litis - continue with augmentin - call if not improving. Advised pt to have animal control hop picker the stray cat that bit her. 05/27/2017 Appointment: Disha Robbins WPtel: [phone] [facility] (15 min) Moderate 05/27/2017 Patient Education: [...] at home. 04/10/2017 Appointment: Disha Robbins WPtel: [facility] (15 min) Moderate 04/10/2017 Patient Education: [...] to medications. 03/18/2017 Appointment: Disha Robbins WPtel[facility] ([facility] min) Moderate 03/18/2017 Patient Education: Patient [...] acutely worsen. 12/17/2016 Appointment: Giovanna Gilmore WPtel[phone] (30 min) Complex 12/17/2016 Patient Education: [...] current medications. 09/17/2016 Appointment: Disha Robbins WPtel: [facility] (15 min) Moderate 09/17/2016 Patient Education: Patient [...] current medications. 05/20/2016 Appointment: [facility] [phone] [facility] (15 min) Moderate 05/20/2016 Patient Education: Patient Medication Summary Completed 05/20/2016 Care Plan: Tsh Pending 05/20/2016 Care Plan: Free T4 Pending 05/20/2016 Care Plan: SCREENINGMAMMOGRAPHYDIGITAL LOINC : 41477-4 Pending 12/12/2015 Visit Plan: Medicare Exam - today emile johnson discussed the patients past history, immunizations, preventative [...] surrogate. 12/11/2015 Appointment: T[facility] Marquez [facility] [phone] [facility] [facility] - Annual Wellness Visit 12/11/2015 [...] current medications. 07/26/2014 Appointment: Disha Robbins WPtel: [address] [place], [place] [address] Follow up 07/26/2014 Patient Education: Patient Medication [...] medications. 01/25/2014 Appointment: Disha Robbins WPtel: [phone] [facility] Follow up 01/25/2014 Patient Education: Patient [...] Completed 01/10/2014 Appointment: Disha Robbins WPtel: [phone] [facility] Follow up 12/02/2013 Visit Plan: Cerumen [...] current medications. 09/23/2013 Appointment: Disha Robbins WPtel: [facility] Follow up 09/23/2013 Patient Education: Patient [...] current medications. 09/09/2013 Appointment: Disha Robbins WPtel: [facility] [facility] follow up 09/09/2013 Patient Education: Patient [...] not improving. 06/03/2013 Appointment: Disha Robbins WPtel: [address] [place], [place] [phone] Follow up 06/03/2013 Patient Education: Patient Medication [...] clinic [facility]. 02/04/2013 Appointment: Disha Robbins WPtel: [address] [place], [place] [phone] [facility] 02/04/2013 Patient Education: Patient Medication Summary Completed 02/04/2013 Appointment: Disha Robbins WPtel: [address] [place], [place] [phone] Follow up 01/28/2013 Visit Plan: Extrapyramidal movement [...] medications. 12/31/2012 Appointment: [facility] [phone] [facility] [facility] 12/31/2012 Patient Education: Patient Medication [...] dietary changes. 10/01/2012 Appointment: D[facility]bins [facility]Ptel[facility] [phone] [facility] Follow [facility] 10/01/2012 Patient Education: Patient Medication [...] current medications. 09/03/2012 Appointment: Disha Robbins WPtel: [facility] Follow [facility] 09/03/2012 Patient Education: Patient Medication [...] this time. 06/26/2011 Appointment: Disha Robbins WPtel: [facility] Other 06/26/2011 Patient Education: Patient Medication Summary [...] worsen again, call clinic [facility]. go to [facility] week and get a flu [...] improving. Advised pt to have animal control hop picker the stray cat that bit her. [...]
--- OUTSIDE RECORDS SUMMARY | 2019-11-16 09:07 | XMS REPORT | CCD ---
Author Author Nikole Robbins Organization [facility] Address [address] [place] [address] Phone Care Team Providers Care Facility Engineer Name Role Phone PP Unavailable CCM Unavailable Summary Purpose Interface Exchange Insurance Providers Payer name Policy type / Coverage type Covered democrat ID Effective Begin Date Effective End Date WPS Medicare Part B Medicare Part B [id number] 2013 Unknown [employer] Medicare Part B [id number] 2013 Unknown Family history Son Diagnosis Age [...] ntly unemployed 06/26/[address]: [id number] Never smoker 06/26/[address]: [id number] Never drinks alcohol 06/26/2011 Has the patient ever used illegal drugs? Unknown Has never used illegal drugs 011 Allergies, Adverse Reactions, Alerts Allergies, Adverse Reactions, Alerts data not found Past Medical History Illness Codes Condition Status Onset Date Resolved Date Atrophy of thyroid ( acquired) ICD-9: 244.8 ICD-10: E03.4 Active 05/19/2016 Unknown Open bite of left up per arm, initial encounter ICD-9: 880.03 ICD-10: S41.152A Active 05/27/2017 Unknown Essential (primary) hypertension ICD-9: 401.1 ICD-10: I10 Active 03/18/2017 Unknown Mixed hyperlipidemia ICD-9: 272.2 ICD-10: E78.2 [...] Condition Codes Effectiv e Dates Condition Status Atrophy of thyroid ( acquired) ICD-9: 244.8 ICD-10: E03.4 05/19/2016 Active Open bite of left up per arm, initial encounter ICD-9: 880.03 ICD-10: S41.152A 05/27/2017 Active Essential (primary) hypertension ICD-9: 401.1 ICD-10: I10 03/18/2017 Active Mixed hyperlipidemia ICD-9: 272.2 ICD-10: E78.2 [...] Fill Instructions Synthroid 75 mcg tablet RxNorm: 960269 TAKE ONE TABLET BY MOUTH ONCE DAILY 08/01/2017 No Stop Date Active olanzapine 2.5 mg ta blet RxNorm: 559978 TAKE ONE TABLET BY [facility] ONCE DAILY 05/27/2017 11/22/2017 Ac tive Zithromax Z-Yan 250 mg tablet RxNorm: 896037 1 Tablet(s) PO UD 04/29/2017 No Stop Date Active z pack as directed fluoxetine 20 mg cap kameron RxNorm: 137478 TAKE ONE CAPSULE BY [facility] ONCE DAILY 04/28/2017 10/24/2017 Ac tive lovastatin 20 mg tablet RxNorm: 917689 TAKE ONE TABLET BY MOUTH AT BEDTIME 04/28/2017 10/24/2017 Ac tive Synthroid 75 mcg tablet RxNorm: 260210 TAKE ONE TABLET BY MOUTH ONCE DAILY 04/08/2017 07/31/2017 In active losartan 50 mg tablet RxNorm: 210749 1 Tablet(s) PO daily 03/20/2017 10/15/2017 Active losartan 50 mg tablet RxNorm: 478991 1 Tablet(s) PO daily 03/18/2017 03/19/2017 Inactive olanzapine 2.5 mg ta blet RxNorm: 553564 TAKE ONE TABLET BY MO [facility] ONCE DAILY 02/28/2017 05/26/2017 In active Kenalog 40 mg/mL kassie pension for injection RxNorm: 7519708 Milliliter(s) Inj 12/20/2016 12/20/2016 In active ceftriaxone 500 mg s olution for injection RxNorm: 3812500 1 Milliliter(s) Inj 12/17/2016 12/17/2016 In active Zithromax Z-Yan 250 mg tablet RxNorm: 894314 1 Tablet(s) PO UD 12/17/2016 12/21/2016 Inactive zpack Kenalog 40 mg/mL kassie pension for injection RxNorm: 3286889 1 Milliliter(s) Inj 12/17/2016 12/17/2016 In active Synthroid 75 mcg tablet RxNorm: 898070 TAKE ONE TABLET BY MOUTH ONCE DAILY 11/08/2016 04/06/2017 In active lovastatin 20 mg tablet RxNorm: 630779 TAKE ONE TABLET BY MOUTH AT BEDTIME 10/28/2016 04/25/2017 In active fluoxetine 20 mg cap kameron RxNorm: 733532 TAKE ONE CAPSULE BY M [facility] ONCE DAILY 10/28/2016 04/25/2017 In active Synthroid 75 mcg tablet RxNorm: 409592 TAKE ONE TABLET BY MOUTH ONCE DAILY 10/08/2016 11/06/2016 In active olanzapine 2.5 mg ta blet RxNorm: 007959 TAKE ONE TABLET BY [facility] ONCE DAILY 07/29/2016 12/25/2016 In active Zithromax Z-Yan 250 mg tablet RxNorm: 588152 1 Tablet(s) PO UD 07/29/2016 09/16/2016 Inactive zpack as directed lovastatin 20 mg tablet RxNorm: 102183 TAKE ONE TABLET BY MOUTH AT BEDTIME 07/02/2016 10/27/2016 In active olanzapine 2.5 mg ta blet RxNorm: 19990922 TAKE ONE TABLET BY [facility] ONCE DAILY 04/29/2016 09/16/2016 In active olanzapine 2.5 mg ta blet RxNorm: 222993 TAKE ONE TABLET BY [facility] ONCE DAILY 04/29/2016 04/28/2016 In active fluoxetine 20 mg cap kameron RxNorm: 364177 TAKE ONE CAPSULE BY M [facility] ONCE DAILY 03/26/2016 09/21/2016 In active olanzapine 2.5 mg ta blet RxNorm: 565369 Tablet(s) TAKE ONE TA BLET BY MOUTH ONCE DAILY 01/31/2016 03/30/2016 Inactive olanzapine 2.5 mg ta blet RxNorm: 315638 Tablet(s) TAKE ONE TA BLET BY MOUTH ONCE DAILY 01/25/2016 01/30/2016 Inactive lovastatin 20 mg tablet RxNorm: 485719 TAKE ONE TABLET BY MOUTH AT BEDTIME 12/28/2015 06/24/2016 In active fluoxetine 20 mg cap kameron RxNorm: 649619 Capsule(s) TAKE ONE C APSULE BY MOUTH ONCE DAILY 12/28/2015 09/16/2016 Inactive olanzapine 2.5 mg ta blet RxNorm: 853475 TAKE ONE TABLET BY [facility] ONCE DAILY 11/24/2015 01/22/2016 In active mupirocin 2 % topica l ointment RxNorm: 992912 1 Application TOP BID 10/06/2015 10/12/2015 Inactive Synthroid 75 mcg tablet RxNorm: 634639 Tablet(s) PO daily TAKE ONE TABLET BY [facility] EVERY DAY 09/18/2015 09/11/2016 Inactive [SAVINGS FOR NON-COVERED DR UGS -- BIN:[id number], PCN: ASPROD1, Group: XXXXX, ID# [id number], Questions: . THIS IS NOT INSURANCE.] Synthroid 75 mcg tablet RxNorm: 514015 Tablet(s) PO daily TAKE ONE TABLET BY [facility] EVERY DAY 09/15/2015 09/17/2015 Inactive [SAVINGS FOR NON-COVERED DR UGS -- BIN:[id number], PCN: ASPROD1, Group: XXXXX, ID# [id number], Questions: . THIS IS NOT INSURANCE.] Synthroid 75 mcg tablet RxNorm: 938461 Tablet(s) TAKE ONE TABLET BY MOUTH EVERY DAY 09/14/2015 09/14/2015 Inactive [SAVINGS FOR NON-COVERED DRUGS -- BIN:00 3585, PCN: ASPROD1, Group: XXXXX, ID# [id number], Questions: . THIS IS NOT INSURANCE.] fluoxetine 20 mg cap kameron RxNorm: 285453 TAKE ONE CAPSULE BY M [facility] ONCE DAILY 08/24/2015 12/21/2015 In active lovastatin 20 mg tablet RxNorm: 767914 1 Tablet(s) PO QHS TAKE ONE TABLET BY MO [facility] AT BEDTIME 05/29/2015 12/24/2015 Inactive [SAVINGS FOR NON-COVERED DR UGS -- BIN:[id number], PCN: ASPROD1, Group: XXXXX, ID# [id number], Questions: . THIS IS NOT INSURANCE.] olanzapine 2.5 mg ta blet RxNorm: 19990922 TAKE ONE TABLET BY [facility] ONCE DAILY 05/25/2015 11/20/2015 In active olanzapine 2.5 mg ta blet RxNorm: 19990922 1 Tablet(s) daily PATRIZIA E ONE TABLET BY MOUTH EVERY DAY 02/27/2015 05/24/2015 Inactive [SAVINGS FOR NON-COVERED DR UGS -- BIN:[id number], PCN: ASPROD1, Group: XXXXX, ID# [id number], Questions: . THIS IS NOT INSURANCE.] fluoxetine 20 mg cap kameron RxNorm: 557696 Capsule(s) TAKE ONE C APSULE BY MOUTH EVERY DAY 02/27/2015 08/23/2015 Inactive prednisone 20 mg tablet RxNorm: 657086 1 Tablet(s) PO BID 01/16/2015 01/18/2015 Inactive prednisone 20 mg tablet RxNorm: 330698 1 Tablet(s) PO BID 01/16/2015 01/15/2015 Inactive Zithromax Z-Yan 250 mg tablet RxNorm: 732599 1 Tablet(s) PO as doc tor directed 01/16/2015 07/28/2016 In active zpack as directed olanzapine 2.5 mg ta blet RxNorm: 19990922 1 Tablet(s) daily PATRIZIA E ONE TABLET BY MOUTH EVERY DAY 11/24/2014 02/21/2015 Inactive [SAVINGS FOR NON-COVERED DR UGS -- BIN:[id number], PCN: ASPROD1, Group: XXXXX, ID# [id number], Questions: . THIS IS NOT INSURANCE.] lovastatin 20 mg tablet RxNorm: 379835 1 Tablet(s) PO QHS TAKE ONE TABLET BY [facility] AT BEDTIME 10/26/2014 05/23/2015 Inactive [SAVINGS FOR NON-COVERED DR UGS -- BIN:692039, PCN: ASPROD1, Group: XXXXX, ID# [id number], Questions: . THIS IS NOT INSURANCE.] Synthroid 75 mcg tablet RxNorm: 776708 1 Tablet(s) PO daily TAKE ONE TABLET BY MOUTH EVERY DAY 09/19/2014 12/17/2014 Inactive Synthroid 75 mcg tablet RxNorm: 220557 Tablet(s) TAKE ONE TABLET BY MOUTH EVERY DAY 09/19/2014 09/13/2015 Inactive [SAVINGS FOR NON-COVERED DRUGS -- BIN:00 3585, PCN: ASPROD1, Group: XXXXX, ID# [id number], Questions: . THIS IS NOT INSURANCE.] fluoxetine 20 mg cap kameron RxNorm: 429749 TAKE ONE CAPSULE BY M [facility] EVERY DAY 08/04/2014 01/30/2015 In active fluoxetine 20 mg cap kameron RxNorm: 327741 1 Capsule(s) PO daily TAKE ONE CAPSULE BY MOUTH EVERY DAY 08/02/2014 08/03/2014 Inactive [SAVINGS FOR UNINSURED ERNIE ENTS -- BIN:[id number], PCN: ASPROD1, Group: [id number], ID# [id number], Process claim through [employer], for questions: . THIS IS NOT INSURANCE.] lovastatin 20 mg tablet RxNorm: 009395 TAKE ONE TABLET BY MOUTH AT BEDTIME 07/25/2014 10/22/2014 In active olanzapine 2.5 mg ta blet RxNorm: 331833 Tablet(s) TAKE ONE TA BLET BY MOUTH EVERY DAY 07/19/2014 07/18/2014 Inactive olanzapine 2.5 mg ta blet RxNorm: 313226 TAKE ONE TABLET BY MO [facility] EVERY DAY 07/19/2014 10/16/2014 In active Synthroid 75 mcg tablet RxNorm: 053892 1 Tablet(s) PO daily TAKE ONE TABLET BY MOUTH EVERY DAY 06/20/2014 06/19/2014 Inactive Synthroid 75 mcg tablet RxNorm: 288378 TAKE ONE TABLET BY MOUTH EVERY DAY 06/20/2014 09/18/2014 In active lovastatin 20 mg tablet RxNorm: 385555 TAKE ONE TABLET BY MOUTH AT BEDTIME 04/22/2014 07/20/2014 In active olanzapine 2.5 mg ta blet RxNorm: 619791 TAKE ONE TABLET BY MO [facility] EVERY DAY 04/21/2014 07/18/2014 In active Synthroid 75 mcg tablet RxNorm: 167021 TAKE ONE TABLET BY MOUTH EVERY DAY 03/22/2014 06/19/2014 In active fluoxetine 20 mg cap kameron RxNorm: 626926 TAKE ONE CAPSULE BY M [facility] EVERY DAY 02/02/2014 07/31/2014 In active lovastatin 20 mg tablet RxNorm: 910119 TAKE ONE TABLET BY MOUTH AT BEDTIME 01/20/2014 04/19/2014 In active olanzapine 2.5 mg ta blet RxNorm: 086198 TAKE ONE TABLET BY MO [facility] EVERY DAY 01/14/2014 04/13/2014 In active amoxicillin 500 mg t ablet RxNorm: 579697 1 Tablet(s) PO TID 01/10/2014 01/16/2014 Inactive Rocephin 500 mg solu tion for injection RxNorm: 650725 Inj 01/1001/10/2014 Inactive Synthroid 75 mcg tablet RxNorm: 720522 Tablet(s) PO TAKE ONE TABLET BY MOUTH FERCHO12/27/2013 03/21/2014 Inactive lovastatin 20 mg tablet RxNorm: 005016 Tablet(s) PO TAKE ONE TABLET BY MOUTH AT BEDTIME 12/20/2013 01/19/2014 Inactive olanzapine 2.5 mg ta blet RxNorm: 130737 Tablet(s) PO TAKE ONE TABLET BY MOUTH EVERY DAY 12/17/2013 01/13/2014 Inactive Synthroid 75 mcg tablet RxNorm: 060596 Tablet(s) PO TAKE ONE TABLET BY MOUTH FERCHO11/22/2013 12/26/2013 Inactive lovastatin 20 mg tablet RxNorm: 707028 Tablet(s) PO TAKE ONE TABLET BY MOUTH AT BEDTIME 11/15/2013 12/19/2013 Inactive olanzapine 2.5 mg ta blet RxNorm: 232647 Tablet(s) PO TAKE ONE TABLET BY MOUTH EVERY DAY 11/15/2013 12/16/2013 Inactive Synthroid 75 mcg tablet RxNorm: 106060 Tablet(s) PO TAKE ONE TABLET BY MOUTH EV FERCHO DAY 10/25/2013 11/21/2013 Inactive lovastatin 20 mg tablet RxNorm: 756937 Tablet(s) PO TAKE ONE TABLET BY MOUTH AT BEDTIME 10/18/2013 11/14/2013 Inactive Zithromax 250 mg tablet RxNorm: 539284 Tablet(s) PO 08/30/2013 07/26/2014 Inactive zpac k as directed Synthroid 75 mcg tablet RxNorm: 761979 Tablet(s) PO TAKE ONE TABLET BY MOUTH EV FERCHO DAY 05/24/2013 10/24/2013 Inactive lovastatin 20 mg tablet RxNorm: 934573 Tablet(s) PO TAKE ONE TABLET BY MOUTH AT BEDTIME 04/19/2013 10/17/2013 Inactive olanzapine 2.5 mg ta blet RxNorm: 582711 1 Tablet(s) PO 02/04/2013 09/01/2013 Inactive fluoxetine 20 mg cap kameron RxNorm: 096577 Capsule(s) PO TAKE ON E CAPSULE BY MOUTH EVERY DAY 01/08/2013 02/01/2014 Inactive olanzapine 5 mg tablet RxNorm: 768778 1/2 Tablet(s) PO daily zyprexa 12/31/2012 02/03/2013 In active Synthroid 75 mcg tablet RxNorm: 029444 1 Tablet(s) PO daily 09/29/2012 03/27/2013 Inactive Vitamin D2 50,000 un it capsule RxNorm: 216548 1 Capsule(s) PO QW 09/29/2012 09/16/2016 Inactive one weekly x 8 weeks then 1000units dorcas y thereafter Synthroid 75 mcg tablet RxNorm: 586099 1 Tablet(s) PO daily 09/29/2012 09/28/2012 Inactive lovastatin 20 mg tablet RxNorm: 444325 Tablet(s) PO TAKE ONE TABLET BY MOUTH AT BEDTIME 09/21/2012 04/18/2013 Inactive fluoxetine 20 mg cap kameron RxNorm: 162366 1 Capsule(s) PO daily TAKE ONE CAPSULE BY MOUTH EVERY DAY 09/16/2012 01/07/2013 Inactive Synthroid 50 mcg tablet RxNorm: 181189 1 Tablet(s) PO daily 09/14/2012 12/31/2012 Inactive brand name only fluoxetine 20 mg cap kameron RxNorm: 656487 Capsule(s) PO TAKE ON E CAPSULE BY MOUTH EVERY DAY 09/07/2012 09/15/2012 Inactive Synthroid 50 mcg tablet RxNorm: 134949 1 Tablet(s) PO daily 09/07/2012 09/13/2012 Inactive brand name only niacin ER 500 mg tab let,extended release RxNorm: 314720 2 Tablet(s) PO daily 09/03/2012 No Stop Date Active lovastatin 20 mg tablet RxNorm: 316577 1 Tablet(s) PO QHS TAKE ONE TABLET BY [facility] AT BEDTIME 08/26/2012 09/20/2012 Inactive Zithromax Z-Yan 250 mg tablet RxNorm: 947975 Tablet(s) PO UD 08/13/2012 12/31/2012 Inactive fluoxetine 20 mg cap kameron RxNorm: 480973 Capsule(s) PO 05/11/2012 09/06/2012 Inactive TAKE ONE CAPSULE BY MOUTH EVERY DAY fluoxetine 20 mg cap kameron RxNorm: 619645 1 Capsule(s) PO daily 01/06/2012 05/04/2012 Inactive Zyprexa 5 mg Tab RxNorm: 842664 Tablet(s) PO 01/06/2012 12/31/2012 Inactive TAKE ONE TABLET BY MOUTH EVERY DAY lovastatin 20 mg tablet RxNorm: 444537 Tablet(s) PO 12/24/2011 08/26/2012 Inactive TAKE ONE TABLET BY MOUTH AT BEDTIME Rocephin 500 mg Solu tion for Injection RxNorm: 980248 Inj 06/2612/31/2012 Inactive KCL 20 meq RxNorm: 1 PO daily No Start Date Active omeprazole 20 mg Cap , Delayed Release RxNorm: 405521 1 Capsule(s) PO BID No Start Date Active oxycodone-acetaminop hen 5 mg-325 mg Tab RxNorm: 3047397 1 Tablet(s) PO Q4 VT N No Start Date Active acyclovir 800 mg tablet RxNorm: 461040 1 Tablet(s) PO daily No Start Date Active letrozole 2.5 mg Tab RxNorm: 102906 1 Tablet(s) PO daily No Start Date Active multivitamin Cap RxNorm: 1 Capsule(s) PO daily No Start Date Active Calcium 600 + D(3) 6 00 mg (1,500)-200 unit Tab RxNorm: 054450 1 Tablet(s) PO daily No Start Date Active Zyprexa 5 mg Tab RxNorm: 857280 1 Tablet(s) PO daily No Start Date 01/05/2012 Inactive Zithromax Z-Yan 250 mg tablet RxNorm: 066541 Tablet(s) PO UD No Start Date 08/12/2012 Inactive Zithromax Z-Yan 250 mg tablet RxNorm: 469547 1 Tablet(s) PO UD No Start Date 04/28/2017 Inactive z pack as directed niacin ER 500 mg tab let,extended release RxNorm: 333318 1 Tablet(s) PO daily No Start Date 09/02/2012 Inactive Vitamin D2 50,000 un it capsule RxNorm: 187114 1 Capsule(s) PO QW No Start Date 09/28/2012 Inactive one weekly x 8 weeks then 1000units dorcas y thereafter Synthroid 50 mcg tablet RxNorm: 868391 1 Tablet(s) PO daily No Start Date 09/06/2012 Inactive brand name only acyclovir 400 mg Tab RxNorm: 244365 1 Tablet(s) PO BID No Start Date 09/15/2012 Inactive Zithromax Z-Yan 250 mg tablet RxNorm: 095903 1 Tablet(s) PO as doc tor directed No Start Date 01/15/2015 Inactive zpack as directed fluoxetine 20 mg Tab RxNorm: 064798 1 Tablet(s) PO daily No Start Date 07/26/2014 Inactive REVLIMID 10 mg Cap RxNorm: 618703 1 Capsule(s) PO daily No Start Date 12/31/2012 Inactive lovastatin 20 mg Tab RxNorm: 846117 1 Tablet(s) PO QHS No Start Date 12/23/2011 Inactive aspirin 81 mg Cap, D elayed Release RxNorm: 506218 1 Capsule(s) PO daily No Start Date 12/30/2012 Inactive olanzapine 5 mg tablet RxNorm: 438596 1 Tablet(s) PO daily zyprexa No Start Date 12/30/2012 Inactive Zithromax 250 mg tablet RxNorm: 472267 Tablet(s) PO No Start Date 08/29/2013 Inactive zpac k as directed levofloxacin 500 mg Tab RxNorm: 645041 1 Tablet(s) PO daily No Start Date 06/26/2011 Inactive levothyroxine 50 mcg Tab RxNorm: 512410 1 Tablet(s) PO daily No Start Date 12/31/2012 Inactive dexamethasone 4 mg Tab RxNorm: 722023 2 Tablet(s) PO weekly No Start Date 12/31/2012 Inactive Medication Administered Medication Codes Instruc tions Start Date Status Kenalog 40 mg/mL suspension for injection RxNorm: 6773657 Milliliter 12/20/2016 No longer Active ceftriaxone 500 mg solution for injection RxNorm: 8200487 1Milliliter 12/17/2016 N o longer Active Kenalog 40 mg/mL suspension for injection RxNorm: 0795246 1Milliliter 12/17/2016 N o longer Active Rocephin 500 mg solution for injection RxNorm: 413231 01/10/2014 No longer A ctive Immunizations Vaccine Codes Date Status Pneumococcal (Adult) CVX: 33 07/26/2014 completed Assessments Condition Codes Effectiv e Dates Open bite of left upper arm, initial encounter ICD-10: S41.152A ICD-9: 880.03 05/27/2017 Essential (primary) hypertension ICD -10: I10 ICD-9: 401.1 04/10/2017 Mixed hyperlipidemia ICD-10: E78.2 ICD-9: 272.2 03/18/2017 [...] er ICD- 10: S90.421A ICD-9: 917.2 10/06/2015 Elevated blood-pressure reading, without diagnosis of hypertension ICD-10: R03.0 ICD-9: 796.2 09/21/2015 Hypothyroidism, unspecified ICD-10: E03.9 ICD-9: 244.9 09/21/2015 HYPOTHYROIDISM ICD-9: 244.9 07/26/2014 Need for pneumococcal vaccine ICD-9: V03.8 2 07/26/2014 HYPERLIPIDEMIA ICD-9: 272.4 07/26/2014 DEPRESSIVE DISORDER NEC ICD-9: 311 01/25/2014 ACUTE PHARYNGITIS ICD-9: 462 01/10/2014 Ear pain ICD-9: 388.70 0 09/23/2013 GENERALIZED ANXIETY DISEASE ICD-9: 300.02 09/23/2013 BACTERIAL PNEUMONIA ICD-9: 482.9 09/09/2013 Encounter for long-term (current) use of other medicat ions ICD-9: V58.69 09/09/2013 ESOPHAGEAL REFLUX ICD-9: 530.81 06/03/2013 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 06/03/2013 Renal insufficiency ICD-9: 593.9 10/01/2012 ACUTE MAXILLARY SINUSITIS ICD-9: 461.0 06/26/2011 Reason For Visit Reason For Visit Effective Dates Notes bite to the hand 05/27/2017 arm left [...] Item Item Code Result Date Free T4 Cxc162 FREE T4 1.06 ng/dL 11/18/2016 Tsh Ord6 [...] 33.2 pg 10/22/2016 Cbc With Differential Ord2 [place]% 36.7 % 10/22/2016 Cbc With Differential Ord2 [...] 0.51 K/ul 10/22/2016 Cbc With Differential Ord2 [place] ABS# 0.6 K/ul 10/22/2016 Cbc With Differential Ord2 Eos ABS# 0.0 K/ul 10/22/2016 Cbc With Differential Ord2 Baso ABS# 0.0 K/ul 10/22/2016 Lipid Ord30 CHOL 99 mg/dL 10/22/2016 Lipid Ord30 HDL 38.0 mg/dl 10/22/2016 Lipid Ord30 TRIG 102 mg/dL 10/22/2016 Lipid Ord30 LDL 41 mg/dL 10/22/2016 Lipid Ord30 C/HDL 2.6 Ratio 10/22/2016 Comp Metabolic Asq106 NA 135 mEq/L 10/22/2016 Comp Metabolic Uxo265 K 4.5 mEq/L 10/22/2016 Comp Metabolic Iie975 CL 102 mEq/L 10/22/2016 Comp Metabolic Vkh729 CO2 20.0 mEq/L 10/22/2016 Comp Metabolic Pzl521 AN ION GAP 18 10/22/2016 Comp Metabolic Cbr316 GL UCOSE 108 mg/dL 10/22/2016 Comp Metabolic Mbv551 Cr eat 1.1 mg/dL 10/22/2016 Comp Metabolic Umi252 eG FR 53 ml/min/1.73m2 10/22 Comp Metabolic Qir759 BUN 17 mg/dL 10/22/2016 Comp Metabolic Tfu705 B/ C Ratio 15.7 Ratio 10/22/2016 Comp Metabolic Iin429 CA LCIUM 8.9 mg/dL 10/22/2016 Comp Metabolic Jiz474 AL K PHOS 65 U/L 10/22/2016 Comp Metabolic Fxe745 T(SGOT) 14 U/L 10/22/2016 Comp Metabolic Kdi391 AL T(SGPT) 19 U/L 10/22/2016 Comp Metabolic Iui035 BI LI T 0.8 mg/dL 10/22/2016 Comp Metabolic Gpf542 AL BUMIN 3.5 g/dL 10/22/2016 Comp Metabolic Chz844 TP RO 7.0 g/dL 10/22/2016 Comp Metabolic Ggw028 GL OB 3.5 g/dL 10/22/2016 Comp Metabolic Iqj501 A/ G Ratio 1.0 Ratio 10/22/2016 Comp Metabolic Ipw374 Os mo 272 mOsmo 10/22/2016 Manual Differential Ord52 D-Neutr 38 % 10/22/2016 Manual Differential Ord52 D-Bands 15 % 10/22/2016 Manual Differential Ord52 D-Lymph 37 % 10/22/2016 Manual Differential Ord52 D-Eos 4 % 10/22/2016 Manual Differential Ord52 D-Inola 3 % 10/22/2016 Manual Differential Ord52 D-Aty Lymp 3 % 10/22/2016 Free T4 Zct330 FREE T4 1.38 ng/dL 10/22/2016 Tsh Ord6 hTSH II 2.05 uIU/mL 10/22/2016 Free T4 Cay058 FREE T4 0.85 ng/dL 05/20/2016 Tsh Ord6 [...] 14 20280123 SODIUM 138 MMOL/L 09/09/2013 CHEM 20280123 CREATINI NE 1.10 MG/DL 09/09/2013 CHEM 14 20280123 CALCIUM 9.0 MG/DL 09/09/2013 CHEM 14 6477077 POTASSIUM 4.8 MMOL/L 09/09/2013 CHEM 14 2429906 PROT TOT 6.7 GM/DL 09/09/2013 CHEM 14 9954068 GLUCOSE 113 MG/DL 09/09/2013 CHEM 14 3805458 BICARB 27 MMOL/L 09/09/2013 CHEM 14 2961733 ANION GAP 9 MEQ/L 09/09/2013 GFR CALC 2505093 GFR AA 60.0L ML/MIN 09/09/2013 GFR CALC 3448948 GFR NON -AA 50.0L ML/MIN 4 Review of Systems System Result Effective Dates Constitutional recent illness 05/27/2017 Constitutional No night [...] Dates Notes Full Exam - General 1994 Integument inspection [...] normal 06/03/2013 None Full Exam - General 1995 Eyes conjunctiva/eyelids Overall: cornea clear 06/03/2013 None [...] Procedure Codes Date THER/PROPH/DIAG INJ SC/IM CPT-4: 89708 12/20/2016 TRIAMCINOLONE ACET I [place] NOS CPT-4: J3301 12/20/2016 TRIAMCINOLONE ACET I [place] NOS CPT-4: J3301 12/17/2016 ROCEPHIN, PER 250 MG CPT-4: J0696 12/17/2016 PPPS, SUBSEQ VISIT CPT- 4: G0439 12/11/2015 ADMIN PNEUMOCOCCAL V ACCINE Assigned to/Merissa Dupont SNCHRISTIE CT: [id number] CPT-4: B8468Depmlsd 07/26/2014 Pneumococcal Polysac charide Vaccine, 23-Valent, Ad CPT-4: 16420 07/26/2014 ROCEPHIN, PER 250 MG CPT-4: J0696 01/10/2014 ROUTINE VENIPUNCTURE CPT-4: 11722 09/09/2013 PRESCRIP TRANSMIT A ERX SY CPT-4: G8553 02/04/2013 PRESCRIP TRANSMIT A ERX SY CPT-4: G8553 12/31/2012 THER/PROPH/DIAG INJ SC/IM CPT-4: 02271 06/26/2011 ROCEPHIN, PER 250 MG CPT-4: J0696 06/26/2011 Vital Signs Date Vital 05/27/2017 Blood Pressure 1: 144/88 Code: 8480-6 BMI: 29.3 Code: 03976-1 Heart Rate 1: 94 bpm Height: 5'1" SpO2: 96% Weight: 155 lbs 04/10/2017 Blood Pressure 1: 140/88 Code: 8480-6 Blood Pressure 1: 126/78 Code: 8480-6 BMI: 28.5 Code: 36676-0 Heart Rate 1: 94 bpm Height: 5'1" SpO2: 96% Weight: 151 lbs 03/25/2017 Blood Pressure 1: 120/74 Code: 8480-6 03/18/2017 Blood Pressure 1: 150/98 Code: 8480-6 BMI: 28.6 Code: 16942-0 Heart Rate 1: 114 bpm Height: 5'1" SpO2: 96% Weight: 151 lbs 8 oz 12/17/2016 Blood Pressure 1: 146/86 Code: 8480-6 BMI: 26.1 Code: 79984-4 Heart Rate 1: 94 bpm Height: 5'1" SpO2: 95% Temperature: 36.1 (C ) / 97.0 (F) Weight: 138 lbs 09/17/2016 Blood Pressure 1: 148/88 Code: 8480-6 BMI: 26.5 Code: 44320-3 Heart Rate 1: 86 bpm Height: 5'1" SpO2: 93% Weight: 140 lbs 8 oz 05/20/2016 Blood Pressure 1: 128/82 Code: 8480-6 BMI: 26.3 Code: 98566-3 Heart Rate 1: 99 bpm Height: 5'1" SpO2: 92% Weight: 139 lbs 12/11/2015 Blood Pressure 1: 138/84 Code: 8480-6 BMI: 28.3 Code: 61652-1 Heart Rate 1: 95 bpm Height: 5'1" SpO2: 97% Waist Measure (cm): 89 cm Weight: 150 lbs 10/06/2015 Blood Pressure 1: 128/78 Code: 8480-6 BMI: 28.0 Code: 91570-8 Heart Rate 1: 94 bpm Height: 5'1" SpO2: 96% Weight: 148 lbs 09/21/2015 Blood Pressure 1: 126/94 Code: 8480-6 Blood Pressure 1: 152/78 Code: 8480-6 BMI: 28.0 Code: 65611-4 Heart Rate 1: 104 bpm Height: 5'1" SpO2: 98% Weight: 148 lbs 07/26/2014 Blood Pressure 1: 110/68 Code: 8480-6 BMI: 28.7 Code: 57733-3 Heart Rate 1: 98 bpm Height: 5'1" Weight: 152 lbs 01/25/2014 Blood Pressure 1: 120/78 Code: 8480-6 BMI: 29.3 Code: 10205-7 Heart Rate 1: 104 bpm Height: 5'1" Weight: 155 lbs 01/10/2014 Blood Pressure 1: 138/88 Code: 8480-6 Temperature: 37.1 (C) / 98.7 (F) Weight: 156 lbs 09/23/2013 Blood Pressure 1: 128/78 Code: 8480-6 BMI: 28.9 Code: 18947-6 Heart Rate 1: 88 bpm Height: 5'1" Weight: 153 lbs 09/09/2013 Blood Pressure 1: 110/68 Code: 8480-6 BMI: 28.5 Code: 61738-4 Heart Rate 1: 90 bpm Height: 5'1" SpO2: 90% Weight: 151 lbs 06/03/2013 Blood Pressure 1: 132/82 Code: 8480-6 BMI: 28.9 Code: 09521-1 Heart Rate 1: 88 bpm Height: 5'1" Weight: 153 lbs 02/04/2013 Blood Pressure 1: 140/90 Code: 8480-6 BMI: 29.3 Code: 51745-3 Heart Rate 1: 88 bpm Height: 5'1" Weight: 155 lbs 12/31/2012 Blood Pressure 1: 102/76 Code: 8480-6 BMI: 29.6 Code: 22751-7 Heart Rate 1: 112 bpm Height: 5'1" Weight: 156 lbs 8 oz 10/01/2012 Blood Pressure 1: 116/78 Code: 8480-6 BMI: 29.0 Code: 00223-1 Height: 5'2" Weight: 156 lbs 09/03/2012 Blood Pressure 1: 132/88 Code: 8480-6 Heart Rate 1: 88 bpm Weight: 154 lbs 8 oz 06/26/2011 Blood Pressure 1: 82/58 Code: 8480-6 BMI: 27.5 Code: 05746-4 Heart Rate 1: 80 bpm Height: 5'1" Respiratory Rate: 20 bpm Weight: 145 lbs 8 oz Functional Status No Functional Status data History of Present Illness Symptom Name Status Resu lt Effective Date Notes bite to the hand Location on the [...] of the thyroid 03/18/2017 None hypothyroid [employer] 03/18/2017 None hypothyroid Onset and Resolution [...] Exacerbating Factors diet 09/17/2016 None hypothyroid [employer] 09/17/2016 None hypothyroid Location at the [...] Alleviating Factors medication 12/31/2012 None hypothyroid [employer] 12/31/2012 None hyperlipidemia Onset and Resolution [...] Family History hyperlipidemia 09/03/2012 None hypothyroid [employer] 06/26/2011 None cough Location in the yessi ng 06/26/2011 None cough Onset and Resolution sudden in onset 06/26/2011 states manpreett gave her a cold cough Onset and [...] Encounters Encounter Performer Loca tion Codes Date ([id number]) 73890 EST. P ATIENT, LEVEL III Diagnosis: Open bite of left upper arm, initial encounter[ICD10: S41.152A] Disha Robbins MD, [facility] CPT-4: 76163 05/27/2017 ([id number]) 01841 EST. P ATIENT, LEVEL III Diagnosis: Essential (primary) hypertension[ICD10: I10] Disha Robbins MD, C CPT-4: 49122 04/10/2017 ([id number]) Miscellaneou s no charge Diagnosis: Essential (primary) hypertension[ICD10: I10] Tanna Robbins MD, [facility] CPT-4: 18195 03/25/2017 ([id number]) 63737 EST. P ATIENT, LEVEL IV Diagnosis: Essential (primary) hypertension[ICD10: I10] Diagnosis: Atrophy of thyroid (acquired)[ICD10: E03.4] Diagnosis: Mixed hyperlipidemia[ICD10: E78.2] Disha Robbins MD, [facility] CPT- 4: 48335 03/18/2017 ([id number]) 85814 EST. P ATIENT, LEVEL III Diagnosis: Cough[ICD10: R05] Diagnosis: Acute bronchitis, unspecified[ICD10: J20.9] Giovanna Robbins MD, [facility] CPT-4: 50232 12/17/2016 ([id number]) 70242 EST. P ATIENT, LEVEL IV Diagnosis: Atrophy of thyroid (acquired)[ICD10: E03.4] Diagnosis: Mixed hyperlipidemia[ICD10: E78.2] Diagnosis: Generalized anxiety disorder[ICD10: F41.1] Disha Robbins MD, C CPT-4: 80325 09/17/2016 ([id number]) 32812 EST. P ATIENT, LEVEL III Diagnosis: Atrophy of thyroid (acquired)[ICD10: E03.4] Diagnosis: Generalized anxiety disorder[ICD10: F41.1] Disha Robbins MD, C CPT-4: 11352 05/20/2016 [id number] EST. PATIENT, LEVEL II Diagnosis: Blister (nonthermal), right great toe, initial encounter[ICD10: S90.421A] Giovanna Robbins MD, [facility] CPT-4: 50808 10/06/2015 ([id number]) 93283 EST. P ATIENT, LEVEL IV Diagnosis: Elevated blood-pressure reading, without diagnosis of hypertension[ICD10: R03.0] Diagnosis: Mixed hyperlipidemia[ICD10: E78.2] Diagnosis: Hypothyroidism, unspecified[ICD10: E03.9] Giovanna Robbins MD, [facility] CPT-4: 39882 09/21/2015 ([id number]) 57660 EST. P ATIENT, LEVEL IV Diagnosis: HYPERLIPIDEMIA[ICD9: 272.4] Diagnosis: HYPOTHYROIDISM[ICD9: 244.9] Diagnosis: Need for pneumococcal vaccine[ICD9: V03.82] Disha Robbins MD, [facility] CPT-4: 50578 07/26/2014 ([id number]) 36748 EST. P ATIENT, LEVEL IV Diagnosis: HYPERLIPIDEMIA[ICD9: 272.4] Diagnosis: HYPOTHYROIDISM[ICD9: 244.9] Diagnosis: DEPRESSIVE DISORDER NEC[ICD9: 311] Disha Robbins MD, [facility] CPT- 4: 53589 01/25/2014 ([id number]) 93589 EST. P ATIENT, LEVEL III Diagnosis: ACUTE PHARYNGITIS[ICD9: 462] Giovanna Robbins MD, [facility] CPT- 4: 59296 01/10/2014 ([id number]) 66318 EST. P ATIENT, LEVEL III Diagnosis: GENERALIZED ANXIETY DISEASE[ICD9: 300.02] Diagnosis: Ear pain[ICD9: 388.70] Disha Robbins MD, [facility] CPT-4: 55029 09/23/2013 ([id number]) 00778 EST. P ATIENT, LEVEL IV Diagnosis: BACTERIAL PNEUMONIA[ICD9: 482.9] Diagnosis: Encounter for long-term (current) use of other medications[ICD9: V58.69] Diagnosis: HYPOTHYROIDISM[ICD9: 244.9] Diagnosis: DEPRESSIVE DISORDER NEC[ICD9: 311] Disha Robbins MD, [facility] CPT- 4: 47484 09/09/2013 ([id number]) 47441 EST. 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 P [facility], LEVEL IV Diagnosis: Renal insufficiency[ICD9: 593.9] Diagnosis: HYPERLIPIDEMIA[ICD9: 272.4] Diagnosis: DEPRESSIVE DISORDER NEC[ICD9: 311] Diagnosis: KIMANI (generalized anxiety disorder)[ICD9: 300.02] Disha Robbins MD, C CPT-4: 10676 10/01/2012 ([id number]) 44162 EST. P [facility], LEVEL IV Diagnosis: HYPERLIPIDEMIA[ICD9: 272.4] Diagnosis: DEPRESSIVE DISORDER NEC[ICD9: 311] Diagnosis: KIMANI (generalized anxiety disorder)[ICD9: 300.02] Disha Robbins MD, C CPT-4: 99427 09/03/2012 67111 EST. PATIENT, LEVEL IV Diagnosis: HYPOTHYROIDISM[ICD9: 244.9] Diagnosis: HYPERLIPIDEMIA[ICD9: 272.4] Diagnosis: ACUTE MAXILLARY SINUSITIS[ICD9: 461.0] Disha Robbins MD, [facility] CPT-4: 70075 06/26/2011 Plan of Care Planned Activity Notes C odes Status Date Visit Plan: Cat bite to arm - cellu litis - continue with augmentin - call if not improving. Advised pt to have animal control warehouse order picker the stray cat that bit her. 05/27/2017 App[facility]ment[phone] [facility] ([facility] min) Moderate 05/27/2017 Patient Education: [...] at home. 04/10/2017 Appointment: [facility] [phone] [facility] (15 min) Moderate 04/10/2017 Patient Education: [...] to medications. 03/18/2017 Appointment: [facility] [phone] [facility] (15 min) Moderate 03/18/2017 Patient Education: [...] acutely worsen. 12/17/2016 Appointment: Giovanna Gilmore [phone] [facility] (30 min) Complex 12/17/2016 Patient Education: Patient [...] medications. 09/17/2016 Appointment: Disha Robbins WPtel: [phone] [facility] (15 min) Moderate 09/17/2016 Patient Education: Patient [...] current medications. 05/20/2016 Appointment: Disha Robbins WPtel: [facility] (15 min) Moderate 05/20/2016 Patient Education: Patient Medication Summary Completed 05/20/2016 Care Plan: Tsh Pending 05/20/2016 Care Plan: Free T4 Pending 05/20/2016 Care Plan: [facility]AM[facility]DIG[facility] [id number] Pending 12/12/2015 Visit Plan: Medicare Exam - [...] surrogate. 12/11/2015 Appointment: Tanna Marquez WPtel: [phone] [facility] MCR - Annual Wellness Visit 12/11/2015 Patient Education: [...] medications. 07/26/2014 Appointment: [facility] [phone] [facility] Follow up 07/26/2014 Patient Education: Patient [...] current medications. 01/25/2014 Appointment: Disha Robbins WPtel: [facility] [place] Follow up 01/25/2014 Patient Education: [...] Completed 01/10/2014 Appointment: Disha Robbins WPtel: [phone] [facility] [place] Follow up 12/02/2013 Visit Plan: Cerumen [...] medications. 09/23/2013 Appointment: Disha Robbins WPtel: [phone] [facility] Follow up 09/23/2013 Patient Education: Patient Medication [...] current medications. 09/09/2013 Appointment: [facility] [phone] [facility] [facility] follow up 09/09/2013 Patient Education: Patient [...] symptoms are not improving. 06/03/2013 Appointment: [facility] [phone] [facility] Follow up 06/03/2013 Patient Education: Patient Medication [...] clinic ETHEL. 02/04/2013 Appointment: [facility] [phone] [facility] [place] Other 02/04/2013 Patient Education: Patient Medication Summary Completed 02/04/2013 Appointment: [facility] [phone] [facility] Follow up 01/28/2013 Visit Plan: Extrapyramidal [...] medications. 12/31/2012 Appointment: Disha Robbins WPtel: [phone] [facility] [place] Follow up 12/31/2012 Patient Education: Patient Medication [...] changes. 10/01/2012 Appointment: [facility] [phone] [facility] Follow [facility] 10/01/2012 Patient Education: Patient [...] medications. 09/03/2012 Appointment: [facility] [phone] [facility] [place] Follow up 09/03/2012 Patient Education: Patient [...] this time. 06/26/2011 Appointment: Disha Robbins WPtel: [address] [place], [place] [address] Other 06/26/2011 Patient Education: Patient Medication Summary [...] to assure normal liver response to medications. rocephin/kenalog zpack -start today call later this week if not better and we will add on 2nd antibiotic such as cefdinir . Bronchitis - acute case of bronchitis identified. Pt has been given antibiotics, breathing treatments as appropriate, and pt has been instructed to call if symptoms are not improved, or if symptoms acutely worsen. . Medicare Exam - to day we [...] Patient verbalized understanding of plan. go to [place] ne xt week and get a flu [...] and depression on lower dose of medications. Increase fluids - NO MOTRIN, IBUPROFEN, [...] - medication started, discussed dietary changes. . Cat bite to arm - cellulitis - continue with augmentin - call if not improving. Advised pt to have animal control warehouse order picker the stray cat that bit her. [...] situational exposure. No change in current medications. We will increase her Nicacin to [...]
--- OUTSIDE RECORDS SUMMARY | 2019-11-16 09:10 | XMS REPORT | Continuity of Care Document ---
Demographics Preferred Language Unknown Marital Status Unknown Taoist Affiliation Unknown Race Unknown Ethnic Group Unknown Author Organization Unknown Address Unknown Phone Unavailable Allergies Active Description Code Type Severity Reaction Onset Reported/Identified Relationship to Patient Clinical Status Yes No Known Drug Allergies [id number] Drug Allergy Unknown N/A 05/05/2019 Medications There is no data. 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 MARGE SPRINGER Ot Z79.899 OTHER HAT AND CAP 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 (CURRENT) DRUG THERAPY MARGE SPRINGER N Ot Z92.21 PERSONAL HISTORY OF ANTINEOPLASTIC CHEMO MARGE SPRINGER N Ot Z92.3 PERSONAL HISTORY OF IRRADIATION 06/19/1058 MARGE SPRINGER Ot C50.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 06/19/1058 MARGE SPRINGER Ot 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 06/19/1058 MARGE SPRINGER Ot M85.80 OTH DISRD OF BONE DENSITY AND STRUCTURE, 06/19/1058 MARGE SPRINGER Ot Z45.2 ENCOUNTER FOR ADJUSTMENT AND MANAGEMENT 06/19/1058 MARGE SPRINGER N Ot 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 06/19/1058 MARGE SPRINGER N Ot Z79.899 OTHER HALF-WAY (CURRENT) DRUG THERAPY 06/19/1058 MARGE SPRINGER N Ot Z92.21 PERSONAL HISTORY OF ANTINEOPLASTIC CHEMO 06/19/1058 MARGE SPRINGER N Ot Z92.3 PERSONAL HISTORY OF IRRADIATION 09/13/2012 Ot 174.9 TEA GN NEOPL BREAST NOS 09/13/2012 Ot 203.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, 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 09/13/2012 Ot 285.21 ANE KEV IN CHRONIC KIDNEY DISEASE 09/13/2012 Ot 287.49 OTH ER SECONDARY THROMBOCYTOPENIA 09/13/2012 Ot 288.50 CALE KOCYTOPENIA, UNSPECIFIED 09/13/2012 Ot 585.3 LOGGING ASSISTANT LORELEI KIDNEY DISEASE, STAGE III (MODER 09/13/2012 Ot V58.69 OTH MED,LT,CURRENT USE 09/13/2012 Ot V58.81 FIT /ADJ VASCULAR CATHETER 09/13/2012 Ot V86.0 ESTR OGEN RECEPTOR POSITIVE STATUS [ER+] 09/13/2012 Ot V87.41 PER DURAN HISTORY OF ANTINEOPLASTIC CHEMO 12/25/2012 GIAN, BOBAN N Ot 174.9 MALIGN NEOPL BREAST NOS 12/25/2012 GIAN, BOBAN N Ot 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, 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 12/25/2012 GIAN, BOBAN N Ot 285.21 ANEMIA IN CHRONIC KIDNEY DISEASE 12/25/2012 GIAN BOBAN N Ot 287.49 OTHER SECONDARY THROMBOCYTOPENIA 12/25/2012 GIAN, BOBAN N Ot 288.50 LEUKOCYTOPENIA, UNSPECIFIED 12/25/2012 GIAN, BOBAN N Ot 585.3 CHRONIC KIDNEY DISEASE, STAGE III (MODER 12/25/2012 GIANNOEMÍAN N Ot V58.69 OTH MED,LT,CURRENT USE 12/25/2012 GIAN, BOBAN N Ot V58.81 FIT/ADJ VASCULAR CATHETER 12/25/2012 GIAN, BOBAN N Ot V86.0 ESTROGEN RECEPTOR POSITIVE STATUS [ER+] 12/25/2012 GIAN BOBAN N Ot V87.41 PERSONAL HISTORY OF ANTINEOPLASTIC CHEMO 04/04/2013 GIAN BOBAN N Ot 174.9 MALIGN NEOPL BREAST NOS 04/04/2013 GIAN, BOBAN N Ot 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, 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 04/04/2013 GIAN, BOBAN N Ot 285.21 ANEMIA IN CHRONIC KIDNEY DISEASE 04/04/2013 GIAN, BOBAN N Ot 287.49 OTHER SECONDARY THROMBOCYTOPENIA 04/04/2013 GIAN, BOBAN N Ot 288.50 LEUKOCYTOPENIA, UNSPECIFIED 04/04/2013 GIAN BOBAN N Ot 585.3 CHRONIC KIDNEY DISEASE, STAGE III (MODER 04/04/2013 GIANMARGE N Ot V58.69 OTH MED,LT,CURRENT USE 04/04/2013 GIAN, BOBAN N Ot V58.81 FIT/ADJ VASCULAR CATHETER 04/04/2013 GIAN BOBAN N Ot V86.0 ESTROGEN RECEPTOR POSITIVE STATUS [ER+] 04/04/2013 GIAN BOBAN N Ot V87.41 PERSONAL HISTORY OF ANTINEOPLASTIC CHEMO 08/02/2013 GIAN BOBAN N Ot 174.9 MALIGN NEOPL BREAST NOS 08/02/2013 GIAN, BOBAN N Ot 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, 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 08/02/2013 GIAN, BOBAN N Ot 285.21 ANEMIA IN CHRONIC KIDNEY DISEASE 08/02/2013 GIAN, BOBAN N Ot 287.49 OTHER SECONDARY THROMBOCYTOPENIA 08/02/2013 GIAN, BOBAN N Ot 288.50 LEUKOCYTOPENIA, UNSPECIFIED 08/02/2013 GIAN BOBAN N Ot 585.3 CHRONIC KIDNEY DISEASE, STAGE III (MODER 08/02/2013 GIAN BOBAN N Ot 733.90 BONE CARTILAGE DIS NOS 08/02/2013 GIAN BOBAN N Ot V58.69 OTH MED,LT,CURRENT USE 08/02/2013 GIAN, BOBAN N Ot V58.81 FIT/ADJ VASCULAR CATHETER 08/02/2013 GIAN BOBAN N Ot V86.0 ESTROGEN RECEPTOR POSITIVE STATUS [ER+] 08/02/2013 GIAN BOBAN N Ot V87.41 PERSONAL HISTORY OF ANTINEOPLASTIC CHEMO 11/02/2013 GIAN NOEMÍAN N Ot 174.9 MALIGN NEOPL BREAST NOS 11/02/2013 GIAN BOBAN N Ot 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, 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 11/02/2013 GIAN, BOBAN N Ot 285.21 ANEMIA IN CHRONIC KIDNEY DISEASE 11/02/2013 GIAN, BOBAN N Ot 287.49 OTHER SECONDARY THROMBOCYTOPENIA 11/02/2013 GIAN, BOBAN N Ot 288.50 LEUKOCYTOPENIA, UNSPECIFIED 11/02/2013 GIAN, BOBAN N Ot 585.3 CHRONIC KIDNEY DISEASE, STAGE III (MODER 11/02/2013 GIAN BOBAN N Ot V58.69 OTH MED,LT,CURRENT USE 11/02/2013 GIAN BOBAN N Ot V58.81 FIT/ADJ VASCULAR CATHETER 11/02/2013 GIANNOEMÍAN N Ot V86.0 ESTROGEN RECEPTOR POSITIVE STATUS [ER+] 11/02/2013 GIAN BOBAN N Ot V87.41 PERSONAL HISTORY OF ANTINEOPLASTIC CHEMO 02/23/2014 GIAN BOBAN N Ot 174.9 MALIGN NEOPL BREAST NOS 02/23/2014 GIAN BOBAN N Ot 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, 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 02/23/2014 GIAN, BOBAN N Ot 285.21 ANEMIA IN CHRONIC KIDNEY DISEASE 02/23/2014 GIAN BOBAN N Ot 287.49 OTHER SECONDARY THROMBOCYTOPENIA 02/23/2014 GIAN, BOBAN N Ot 288.50 LEUKOCYTOPENIA, UNSPECIFIED 02/23/2014 GIAN BOBAN N Ot 585.3 CHRONIC KIDNEY DISEASE, STAGE III (MODER 02/23/2014 GIANNOEMÍAN N Ot V58.69 OTH MED,LT,CURRENT USE 02/23/2014 GIAN, BOBAN N Ot V58.81 FIT/ADJ VASCULAR CATHETER 02/23/2014 GIAN BOBAN N Ot V86.0 ESTROGEN RECEPTOR POSITIVE STATUS [ER+] 02/23/2014 GIAN BOBAN N Ot V87.41 PERSONAL HISTORY OF ANTINEOPLASTIC CHEMO 06/29/2014 GIAN BOBAN N Ot 174.9 MALIGN NEOPL BREAST NOS 06/29/2014 GIAN BOBAN N Ot 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, 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 06/29/2014 GIAN, BOBAN N Ot 285.21 ANEMIA IN CHRONIC KIDNEY DISEASE 06/29/2014 GIAN BOBAN N Ot 287.49 OTHER SECONDARY THROMBOCYTOPENIA 06/29/2014 GIAN, BOBAN N Ot 288.50 LEUKOCYTOPENIA, UNSPECIFIED 06/29/2014 GIAN BOBAN N Ot 585.3 CHRONIC KIDNEY DISEASE, STAGE III (MODER 06/29/2014 GINA BOBAN N Ot V58.69 OTH MED,LT,CURRENT USE 06/29/2014 GIAN, BOBAN N Ot V58.81 FIT/ADJ VASCULAR CATHETER 06/29/2014 GIAN, BOBAN N Ot V86.0 ESTROGEN RECEPTOR POSITIVE STATUS [ER+] 06/29/2014 GIAN BOBAN N Ot V87.41 PERSONAL HISTORY OF ANTINEOPLASTIC CHEMO 07/05/2014 GIAN BOBAN N Ot 174.9 07/05/2014 GIAN, BOBAN N Ot 203.00 07/05/2014 GIAN, BOBAN N Ot 285.21 07/05/2014 GIAN, BOBAN N Ot 287.49 07/05/2014 GIAN, BOBAN N Ot 288.50 07/05/2014 GIAN, BOBAN N Ot 585.3 07/05/2014 GIAN, BOBAN N Ot V58.69 07/05/2014 GIAN, BOBAN N Ot V58.81 07/05/2014 GIAN, BOBAN N Ot V86.0 07/05/2014 GIAN, BOBAN N Ot V87.41 07/05/2014 GIAN, BOBAN N Ot 174.9 07/05/2014 GIAN, BOBAN N Ot 203.00 07/05/2014 GIAN, BOBAN N Ot 285.21 07/05/2014 GIAN, BOBAN N Ot 287.49 07/05/2014 GIAN, BOBAN N Ot 288.50 07/05/2014 GIAN, BOBAN N Ot 585.3 07/05/2014 GIAN, BOBAN N Ot V58.69 07/05/2014 GIAN, BOBAN N Ot V58.81 07/05/2014 GIAN, BOBAN N Ot V86.0 07/05/2014 GIAN, BOBAN N Ot V87.41 07/06/2014 GIAN, BOBAN N Ot 174.9 07/06/2014 GIAN, BOBAN N Ot 203.00 07/06/2014 GIAN, BOBAN N Ot 285.21 07/06/2014 GIAN, BOBAN N Ot 287.49 07/06/2014 GIAN, BOBAN N Ot 288.50 07/06/2014 GIAN, BOBAN N Ot 585.3 07/06/2014 GIAN, BOBAN N Ot V58.69 07/06/2014 GIAN, BOBAN N Ot V58.81 07/06/2014 GIAN, BOBAN N Ot V86.0 07/06/2014 GIAN, BOBAN N Ot V87.41 07/07/2014 GIAN, BOBAN N Ot 174.9 07/07/2014 GIAN, BOBAN N Ot 203.00 07/07/2014 GIAN, BOBAN N Ot 285.21 07/07/2014 GIAN, BOBAN N Ot 287.49 07/07/2014 GIAN, BOBAN N Ot 288.50 07/07/2014 GIAN, BOBAN N Ot 585.3 07/07/2014 GIAN, BOBAN N Ot V58.69 07/07/2014 GIAN, BOBAN N Ot V58.81 07/07/2014 GIAN, BOBAN N Ot V86.0 07/07/2014 GIAN, BOBAN N Ot V87.41 07/08/2014 GIAN, BOBAN N Ot 174.9 07/08/2014 GIAN, BOBAN N Ot 203.00 07/08/2014 GIAN, BOBAN N Ot 285.21 07/08/2014 GIAN, BOBAN N Ot 287.49 07/08/2014 GIAN, BOBAN N Ot 288.50 07/08/2014 GIAN, BOBAN N Ot 585.3 07/08/2014 GIAN, BOBAN N Ot V58.69 07/08/2014 GIAN, BOBAN N Ot V58.81 07/08/2014 GIAN, BOBAN N Ot V86.0 07/08/2014 GIAN, BOBAN N Ot V87.41 07/08/2014 GIAN, BOBAN N Ot 174.9 07/08/2014 GIAN, BOBAN N Ot 203.00 07/08/2014 GIAN, BOBAN N Ot 285.21 07/08/2014 GIAN, BOBAN N Ot 287.49 07/08/2014 GIAN, BOBAN N Ot 288.50 07/08/2014 GIAN, BOBAN N Ot 585.3 07/08/2014 GIAN, BOBAN N Ot V58.69 07/08/2014 GIAN, BOBAN N Ot V58.81 07/08/2014 GIAN, BOBAN N Ot V86.0 07/08/2014 GIAN, BOBAN N Ot V87.41 07/11/2014 GIAN, BOBAN N Ot 174.9 07/11/2014 GIAN, BOBAN N Ot 203.00 07/11/2014 GIAN, BOBAN N Ot 285.21 07/11/2014 GIAN, BOBAN N Ot 287.49 07/11/2014 GIAN, BOBAN N Ot 288.50 07/11/2014 GIAN, BOBAN N Ot 585.3 07/11/2014 GIAN, BOBAN N Ot V58.69 07/11/2014 GIAN, BOBAN N Ot V58.81 07/11/2014 GIAN, BOBAN N Ot V86.0 07/11/2014 GIAN, BOBAN N Ot V87.41 07/18/2014 DELATORRETITA White S SALES PERFORMANCE ANALYST Ot 174.9 07/18/2014 DELATORRE TITA S SALES PERFORMANCE ANALYST Ot 203.00 07/18/2014 DELATORRE LIZZIEAH S SALES PERFORMANCE ANALYST Ot 285.21 07/18/2014 DELATORRE, HILAH S SALES PERFORMANCE ANALYST Ot 287.49 07/18/2014 DELATORRE, HILAH S SALES PERFORMANCE ANALYST Ot 288.50 07/18/2014 DELATORRE LIZZIEAH S SALES PERFORMANCE ANALYST Ot 585.3 07/18/2014 DELATORRETITA S SALES PERFORMANCE ANALYST Ot V58.69 07/18/2014 DELATORRE TITA S SALES PERFORMANCE ANALYST Ot V58.81 07/18/2014 DELATORRE TITA S SALES PERFORMANCE ANALYST Ot V86.0 07/18/2014 DELATORRE TITA S SALES PERFORMANCE ANALYST Ot V87.41 07/19/2014 GIAN, BOBAN N Ot 174.9 07/19/2014 GIAN, BOBAN N Ot 203.00 07/19/2014 GIAN, BOBAN N Ot 285.21 07/19/2014 GIAN, BOBAN N Ot 287.49 07/19/2014 GIAN, BOBAN N Ot 288.50 07/19/2014 GIAN, BOBAN N Ot 585.3 07/19/2014 GIAN, BOBAN N Ot V58.69 07/19/2014 GIAN, BOBAN N Ot V58.81 07/19/2014 GIAN, BOBAN N Ot V86.0 07/19/2014 GIAN, BOBAN N Ot V87.41 08/08/2014 GIAN, BOBAN N Ot 174.9 08/08/2014 GIAN, BOBAN N Ot 203.00 08/08/2014 GIAN, BOBAN N Ot 285.21 08/08/2014 GIAN, BOBAN N Ot 287.49 08/08/2014 GIAN, BOBAN N Ot 288.50 08/08/2014 GIAN, BOBAN N Ot 585.3 08/08/2014 GIAN, BOBAN N Ot V58.69 08/08/2014 GIAN, BOBAN N Ot V58.81 08/08/2014 GIANMARGE SPANN N Ot V86.0 08/08/2014 GIANMARGE SPANN N Ot V87.41 08/29/2014 GABBY NEELY, ORTEGA A Ot 244.9 08/29/2014 GABBY NEELY, ORTEGA A Ot 272.4 08/29/2014 GABBY NEELY, ORTEGA A Ot 285.9 08/29/2014 GABBY NEELY, ORTEGA A Ot V58.69 10/04/2014 GIAN, BOBAN N Ot 174.9 MALIGN NEOPL BREAST NOS 10/04/2014 GIAN, BOBAN N Ot 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, 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 10/04/2014 MARGE SPRINGER N Ot 285.21 ANEMIA IN CHRONIC KIDNEY DISEASE 10/04/2014 GIAN BOBAN N Ot 287.49 OTHER SECONDARY THROMBOCYTOPENIA 10/04/2014 GIAN BOBAN N Ot 288.50 LEUKOCYTOPENIA, UNSPECIFIED 10/04/2014 MARGE SPRINGER N Ot 585.3 CHRONIC KIDNEY DISEASE, STAGE III (MODER 10/04/2014 GIANMARGE SPANN N Ot V58.69 OTH MED,LT,CURRENT USE 10/04/2014 GIAN BOBAN N Ot V58.81 FIT/ADJ VASCULAR CATHETER 10/04/2014 MARGE SPRINGER N Ot V86.0 ESTROGEN RECEPTOR POSITIVE STATUS [ER+] 10/04/2014 GIAN BOBMONICA N Ot V87.41 PERSONAL HISTORY OF ANTINEOPLASTIC CHEMO 10/19/2014 GIAN, BOBAN N Ot 174.9 10/19/2014 GIAN BOBAN N Ot 203.00 10/19/2014 GIAN BOBAN N Ot 285.21 10/19/2014 GIAN BOBAN N Ot 287.49 10/19/2014 GIAN BOBAN N Ot 288.50 10/19/2014 GIAN, BOBAN N Ot 585.3 10/19/2014 GAIN BOBAN N Ot V58.69 10/19/2014 GIAN BOBAN N Ot V58.81 10/19/2014 GIAN, BOBAN N Ot V86.0 10/19/2014 GIAN, BOBAN N Ot V87.41 10/19/2014 GIAN, BOBAN N Ot 174.9 10/19/2014 GIAN, BOBAN N Ot 203.00 10/19/2014 GIAN, BOBAN N Ot 285.21 10/19/2014 GIAN, BOBAN N Ot 287.49 10/19/2014 GIAN, BOBAN N Ot 288.50 10/19/2014 GIAN, BOBAN N Ot 585.3 10/19/2014 GIAN, BOBAN N Ot V58.69 10/19/2014 GIAN, BOBAN N Ot V58.81 10/19/2014 GIAN, BOBAN N Ot V86.0 10/19/2014 GIAN, BOBAN N Ot V87.41 10/20/2014 GIAN, BOBAN N Ot 174.9 10/20/2014 GIAN, BOBAN N Ot 203.00 10/20/2014 GIAN, BOBAN N Ot 285.21 10/20/2014 GIAN, BOBAN N Ot 287.49 10/20/2014 GIAN, BOBAN N Ot 288.50 10/20/2014 GIAN, BOBAN N Ot 585.3 10/20/2014 GIAN, BOBAN N Ot V58.69 10/20/2014 GIAN, BOBAN N Ot V58.81 10/20/2014 GIAN, BOBAN N Ot V86.0 10/20/2014 GIAN, BOBAN N Ot V87.41 10/20/2014 GIAN, BOBAN N Ot 174.9 10/20/2014 GIAN, BOBAN N Ot 203.00 10/20/2014 GIAN, BOBAN N Ot 285.21 10/20/2014 GIAN, BOBAN N Ot 287.49 10/20/2014 GIAN, BOBAN N Ot 288.50 10/20/2014 GIAN, BOBAN N Ot 585.3 10/20/2014 GIAN, BOBAN N Ot V58.69 10/20/2014 GIAN, BOBAN N Ot V58.81 10/20/2014 GIAN, BOBAN N Ot V86.0 10/20/2014 GIAN, BOBAN N Ot V87.41 11/18/2014 GIAN, BOBAN N Ot 174.9 11/18/2014 GIAN, BOBAN N Ot 203.00 11/18/2014 GIAN, BOBAN N Ot 285.21 11/18/2014 GIAN, BOBAN N Ot 287.49 11/18/2014 GIAN, BOBAN N Ot 288.50 11/18/2014 GIAN, BOBAN N Ot 585.3 11/18/2014 GIAN, BOBAN N Ot V58.69 11/18/2014 GIAN, BOBAN N Ot V58.81 11/18/2014 GIAN, BOBAN N Ot V86.0 11/18/2014 GIAN, BOBAN N Ot V87.41 12/19/2014 GIAN, BOBAN N Ot 174.9 12/19/2014 GIAN, BOBAN N Ot 203.00 12/19/2014 GIAN, BOBAN N Ot 285.21 12/19/2014 GIAN, BOBAN N Ot 287.49 12/19/2014 GIAN, BOBAN N Ot 288.50 12/19/2014 GIAN, BOBAN N Ot 585.3 12/19/2014 GIAN, BOBAN N Ot V58.69 12/19/2014 GIAN, BOBAN N Ot V58.81 12/19/2014 GIAN, BOBAN N Ot V86.0 12/19/2014 GIAN, BOBAN N Ot V87.41 12/26/2014 GIAN, BOBAN N Ot 174.9 12/26/2014 GIAN, BOBAN N Ot 203.00 12/26/2014 GIAN, BOBAN N Ot 285.21 12/26/2014 GIAN, BOBAN N Ot 287.49 12/26/2014 GIAN, BOBAN N Ot 288.50 12/26/2014 GIAN, BOBAN N Ot 585.3 12/26/2014 GIAN, BOBAN N Ot V58.69 12/26/2014 GIAN, BOBAN N Ot V58.81 12/26/2014 GIAN, BOBAN N Ot V86.0 12/26/2014 GIAN, BOBAN N Ot V87.41 12/30/2014 GIAN, BOBAN N Ot 174.9 12/30/2014 GIAN, BOBAN N Ot 203.00 12/30/2014 GIAN, BOBAN N Ot 285.21 12/30/2014 GIAN, BOBAN N Ot 287.49 12/30/2014 GIAN, BOBAN N Ot 288.50 12/30/2014 GIAN, BOBAN N Ot 585.3 12/30/2014 GIAN, BOBAN N Ot V58.69 12/30/2014 GIAN, BOBAN N Ot V58.81 12/30/2014 GIAN, MARGE N Ot V86.0 12/30/2014 GIAN, BOBMONICA N Ot V87.41 01/05/2015 GIAN, BOBAN N Ot 174.9 01/05/2015 GIAN, BOBAN N Ot 203.00 01/05/2015 GIAN, BOBMONICA N Ot 285.21 01/05/2015 GIAN, BOBAN N Ot 287.49 01/05/2015 GIAN, BOBAN N Ot 288.50 01/05/2015 GIAN, BOBAN N Ot 585.3 01/05/2015 GIAN, MARGE N Ot V58.69 01/05/2015 GIAN, BOBAN N Ot V58.81 01/05/2015 GIAN, MARGE N Ot V86.0 01/05/2015 GIANMARGE N Ot V87.41 01/17/2015 GIANNOEMÍAN N Ot 174.9 MALIGN NEOPL BREAST NOS 01/17/2015 GIAN, BOBAN N Ot 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, 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 01/17/2015 GIAN, BOBAN N Ot 285.21 ANEMIA IN CHRONIC KIDNEY DISEASE 01/17/2015 GIAN BOBAN N Ot 287.49 OTHER SECONDARY THROMBOCYTOPENIA 01/17/2015 GIAN BOBAN N Ot 288.50 LEUKOCYTOPENIA, UNSPECIFIED 01/17/2015 GIANNOEMÍAN N Ot 585.3 CHRONIC KIDNEY DISEASE, STAGE III (MODER 01/17/2015 GIANNOEMÍAN N Ot V58.69 OTH MED,LT,CURRENT USE 01/17/2015 GIAN, BOBAN N Ot V58.81 FIT/ADJ VASCULAR CATHETER 01/17/2015 GIANNOEMÍAN N Ot V86.0 ESTROGEN RECEPTOR POSITIVE STATUS [ER+] 01/17/2015 GIANNOEMÍ SPANNAN N Ot V87.41 PERSONAL HISTORY OF ANTINEOPLASTIC CHEMO 03/29/2015 GIANNOEMÍAN N Ot 174.9 03/29/2015 GIAN, BOBAN N Ot 203.00 03/29/2015 GIAN, BOBAN N Ot 285.21 03/29/2015 GIAN, BOBAN N Ot 287.49 03/29/2015 GIAN, BOBAN N Ot 288.50 03/29/2015 GIAN, BOBAN N Ot 585.3 03/29/2015 GIAN, BOBAN N Ot V58.69 03/29/2015 GIAN, BOBAN N Ot V58.81 03/29/2015 GIAN, BOBAN N Ot V86.0 03/29/2015 GIAN, BOBAN N Ot V87.41 03/30/2015 GIAN, BOBAN N Ot 174.9 03/30/2015 GIAN, BOBAN N Ot 203.00 03/30/2015 GIAN, BOBAN N Ot 285.21 03/30/2015 GIAN, BOBAN N Ot 287.49 03/30/2015 GIAN, BOBAN N Ot 288.50 03/30/2015 GIAN, BOBAN N Ot 585.3 03/30/2015 GIAN, BOBAN N Ot V58.69 03/30/2015 GIAN, BOBAN N Ot V58.81 03/30/2015 GIAN, BOBMONICA N Ot V86.0 03/30/2015 GIAN, BOBAN N Ot V87.41 04/19/2015 GIAN, BOBAN N Ot 174.9 MALIGN NEOPL BREAST NOS 04/19/2015 GIAN, BOBAN N Ot 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, 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 04/19/2015 GIAN, BOBAN N Ot 285.21 ANEMIA IN CHRONIC KIDNEY DISEASE 04/19/2015 GIAN, BOBAN N Ot 287.49 OTHER SECONDARY THROMBOCYTOPENIA 04/19/2015 GIAN, BOBAN N Ot 288.50 LEUKOCYTOPENIA, UNSPECIFIED 04/19/2015 GIAN, BOBAN N Ot 585.3 CHRONIC KIDNEY DISEASE, STAGE III (MODER 04/19/2015 GIAN, BOBAN N Ot V58.69 OTH MED,LT,CURRENT USE 04/19/2015 GIAN, BOBAN N Ot V58.81 FIT/ADJ VASCULAR CATHETER 04/19/2015 GIAN, BOBAN N Ot V86.0 ESTROGEN RECEPTOR POSITIVE STATUS [ER+] 04/19/2015 GIAN, BOBAN N Ot V87.41 PERSONAL HISTORY OF ANTINEOPLASTIC CHEMO 04/27/2015 TITA DELATORRE SALES PERFORMANCE ANALYST Ot 174.9 04/27/2015 TITA DELATORRE SALES PERFORMANCE ANALYST Ot 203.00 04/27/2015 DELATORRETITA White SALES PERFORMANCE ANALYST Ot 733.90 04/27/2015 DELATORRETITA White S SALES PERFORMANCE ANALYST Ot V15.3 04/27/2015 DELATORRETITA White S SALES PERFORMANCE ANALYST Ot V58.69 04/27/2015 DELATORRETITA White SALES PERFORMANCE ANALYST Ot V86.0 04/27/2015 DELATORRETITA White SALES PERFORMANCE ANALYST Ot V87.41 06/23/2015 GIAN, BOBAN N Ot 174.9 06/23/2015 GIAN, BOBAN N Ot 203.00 06/23/2015 GIAN, BOBAN N Ot 285.21 06/23/2015 GIAN, BOBAN N Ot 287.49 06/23/2015 GIAN, BOBAN N Ot 288.50 06/23/2015 GIAN, BOBAN N Ot 585.3 06/23/2015 GIAN, NOEMÍAN N Ot V58.69 06/23/2015 GIAN, NOEMÍAN N Ot V58.81 06/23/2015 GIAN, MARGE N Ot V86.0 06/23/2015 GIAN, NOEMÍAN N Ot V87.41 06/28/2015 Ot M85.80 06/28/2015 Ot N95.9 07/13/2015 GIAN, BOBAN N Ot C50.912 07/13/2015 GIAN, BOBAN N Ot C90.00 07/13/2015 GIAN, BOBAN N Ot M85.80 07/13/2015 GIAN, BOBAN N Ot Z79.811 07/13/2015 GIAN, BOBAN N Ot Z79.899 07/13/2015 GIAN, BOBAN N Ot Z92.21 07/13/2015 GIAN, BOBAN N Ot Z92.3 08/01/2015 GIAN, BOBAN N Ot C50.912 08/01/2015 GIAN, BOBAN N Ot C90.00 08/01/2015 GIAN, BOBAN N Ot M85.80 08/01/2015 GIAN, BOBAN N Ot Z79.811 08/01/2015 GIAN, BOBAN N Ot Z79.899 08/01/2015 GIAN, BOBAN N Ot Z92.21 08/01/2015 GIAN, BOBAN N Ot Z92.3 08/09/2015 MAREG SPRINGER Ot C50.912 MALIGNANT NEOPLASM OF UNSPECIFIED SITE O 08/09/2015 MARGE SPRINGER Ot 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 08/09/2015 MARGE SPRINGER Ot M85.80 OTH DISRD OF BONE DENSITY AND STRUCTURE, 08/09/2015 MARGE SPRINGER Ot Z45.2 ENCOUNTER FOR ADJUSTMENT AND MANAGEMENT 08/09/2015 MARGE SPRINGER Ji Ot 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 08/09/2015 MARGE SPRINGER Ji Ot Z79.899 OTHER HAT AND CAP 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 (CURRENT) DRUG THERAPY 08/09/2015 MARGE SPRINGER Ji Ot Z92.21 PERSONAL HISTORY OF ANTINEOPLASTIC CHEMO 08/09/2015 MARGE SPRINGER Ji Ot Z92.3 PERSONAL HISTORY OF IRRADIATION 09/04/2015 MARGE SPRINGER Ji Ot C50.912 09/04/2015 MARGE SPRINGER Ji Ot C90.00 09/04/2015 MARGE SPRINGER Ji Ot M85.80 09/04/2015 MARGE SPRINGER Ji Ot Z79.811 09/04/2015 MARGE SPRINGER N Ot Z79.899 09/04/2015 MARGE SPRINGER Ji Ot Z92.21 09/04/2015 MARGE SPRINGER N Ot Z92.3 09/28/2015 TITA DELATORRE SALES PERFORMANCE ANALYST Ot C50.912 09/28/2015 TITA DELATORRE SALES PERFORMANCE ANALYST Ot C90.00 09/28/2015 TITA DELATORRE SALES PERFORMANCE ANALYST Ot M85.80 09/28/2015 TITA DELATORRE SALES PERFORMANCE ANALYST Ot Z79.811 09/28/2015 TITA DELATORRE SALES PERFORMANCE ANALYST Ot Z79.899 09/28/2015 TITA DELATORRE SALES PERFORMANCE ANALYST Ot Z92.21 09/28/2015 TITA DELATORRE SALES PERFORMANCE ANALYST Ot Z92.3 10/26/2015 MARGE SPRINGER N Ot C50.912 10/26/2015 MARGE SPRINGER N Ot C90.00 10/26/2015 MARGE SPRINGER N Ot M85.80 10/26/2015 MARGE SPRINGER N Ot Z79.811 10/26/2015 MARGE SPRINGER Ot Z79.899 10/26/2015 MARGE SPRINGER Ot Z92.21 10/26/2015 MARGE SPRINGER Ot Z92.3 11/29/2015 MARGE SPRINGER Ot C50.912 MALIGNANT NEOPLASM OF UNSPECIFIED SITE O 11/29/2015 MARGE SPRINGER Ot 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 11/29/2015 MARGE SPRINGER Ot M85.80 OTH DISRD OF BONE DENSITY AND STRUCTURE, 11/29/2015 MARGE SPRINGER Ot Z45.2 ENCOUNTER FOR ADJUSTMENT AND MANAGEMENT 11/29/2015 MARGE SPRINGER Ot Z79.811 HALF-WAY (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 OF AROMATASE INH 11/29/2015 MARGE SPRINGER N Ot Z79.899 OTHER HALF-WAY (CURRENT) DRUG THERAPY 11/29/2015 MARGE SPRINGER N Ot Z92.21 PERSONAL HISTORY OF ANTINEOPLASTIC CHEMO 11/29/2015 MARGE SPRINGER N Ot Z92.3 PERSONAL HISTORY OF IRRADIATION 11/30/2015 MARGE SPRINGER Ot C50.912 MALIGNANT NEOPLASM OF UNSPECIFIED SITE O 11/30/2015 MARGE SPRINGER N Ot 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 11/30/2015 MARGE SPRINGER N Ot M85.80 OTH DISRD OF BONE DENSITY AND STRUCTURE, 11/30/2015 MARGE SPRINGER Ot Z45.2 ENCOUNTER FOR ADJUSTMENT AND MANAGEMENT 11/30/2015 MARGE SPRINGER Ot Z79.811 HALF-WAY (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 OF AROMATASE INH 11/30/2015 MARGE SPRINGER N Ot Z79.899 OTHER HALF-WAY (CURRENT) DRUG THERAPY 11/30/2015 MARGE SPRINGER N Ot Z92.21 PERSONAL HISTORY OF ANTINEOPLASTIC CHEMO 11/30/2015 MARGE SPRINGER N Ot Z92.3 PERSONAL HISTORY OF IRRADIATION 12/01/2015 TITA DELATORRE SALES PERFORMANCE ANALYST Ot C50.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 12/01/2015 TITA DELATORRE SALES PERFORMANCE ANALYST Ot 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 12/01/2015 TITA DELATORRE SALES PERFORMANCE ANALYST Ot M85.80 OTH DISRD OF BONE DENSITY AND STRUCTURE, 12/01/2015 TITA DELATORRE SALES PERFORMANCE ANALYST Ot Z79.811 HALF-WAY (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 OF AROMATASE INH 12/01/2015 TITA DELATORRE SALES PERFORMANCE ANALYST Ot Z79.899 OTHER HAT AND CAP 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 (CURRENT) DRUG THERAPY 12/01/2015 TITA DELATORRE SALES PERFORMANCE ANALYST Ot Z92.21 PERSONAL HISTORY OF ANTINEOPLASTIC CHEMO 12/01/2015 DELATORRETITA White SALES PERFORMANCE ANALYST Ot Z92.3 PERSONAL HISTORY OF IRRADIATION 12/01/2015 GIAN, NOEMÍMONICA Ji Ot C50.912 MALIGNANT NEOPLASM OF UNSPECIFIED SITE O 12/01/2015 MARGE SPRINGER N Ot 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 12/01/2015 GIANMARGE SPANN Ot M85.80 OTH DISRD OF BONE DENSITY AND STRUCTURE, 12/01/2015 GIANMARGE SPANN Ji Ot 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 12/01/2015 GIANMARGE N Ot Z79.899 OTHER HALF-WAY (CURRENT) DRUG THERAPY 12/01/2015 GIAN, NOEMÍMONICA N Ot Z92.21 PERSONAL HISTORY OF ANTINEOPLASTIC CHEMO 12/01/2015 GIANMARGE SPANN N Ot Z92.3 PERSONAL HISTORY OF IRRADIATION 12/05/2015 GIAN, NOEMÍMONICA Ji Ot C50.912 MALIGNANT NEOPLASM OF UNSPECIFIED SITE O 12/05/2015 MARGE SPRINGER N Ot 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 12/05/2015 GIAN MARGE Ji Ot M85.80 OTH DISRD OF BONE DENSITY AND STRUCTURE, 12/05/2015 GIANMARGE SPANN Ji Ot Z45.2 ENCOUNTER FOR ADJUSTMENT AND MANAGEMENT 12/05/2015 GIANMARGE SPANN Ji Ot Z79.811 HALF-WAY (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 OF AROMATASE INH 12/05/2015 GIANMARGE SPANN N Ot Z79.899 OTHER HALF-WAY (CURRENT) DRUG THERAPY 12/05/2015 GIANMARGE N Ot Z92.21 PERSONAL HISTORY OF ANTINEOPLASTIC CHEMO 12/05/2015 GIAN, MARGE N Ot Z92.3 PERSONAL HISTORY OF IRRADIATION 12/27/2015 TITA DELATORRE SALES PERFORMANCE ANALYST Ot C50.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 12/27/2015 TITA DELATORRE SALES PERFORMANCE ANALYST Ot 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 12/27/2015 DELATORRETITA WhiteP Ot M85.80 OTH DISRD OF BONE DENSITY AND STRUCTURE, 12/27/2015 TITA DELATORRE SALES PERFORMANCE ANALYST Ot Z79.811 HALF-WAY (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 OF AROMATASE INH 12/27/2015 TITA DELATORRE SALES PERFORMANCE ANALYST Ot Z79.899 OTHER HALF-WAY (CURRENT) DRUG THERAPY 12/27/2015 TITA DELATORRE SALES PERFORMANCE ANALYST Ot Z92.21 PERSONAL HISTORY OF ANTINEOPLASTIC CHEMO 12/27/2015 TITA DELATORRE SALES PERFORMANCE ANALYST Ot Z92.3 PERSONAL HISTORY OF IRRADIATION 01/19/2016 Ot 272.4 HYPE RLIPIDEMIA NEC/NOS 01/19/2016 Ot 311 DEPRES SIVE DISORDER NEC 01/19/2016 Ot 401.9 HYPE RTENSION NOS 01/30/2016 MARGE SPRINGER Ot C50.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 01/30/2016 MARGE SPRINGER Ot 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 01/30/2016 GIANMARGE SPANN Ot M85.80 OTH DISRD OF BONE DENSITY AND STRUCTURE, 01/30/2016 MARGE SPRINGER Ot 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 01/30/2016 MARGE SPRINGER N Ot Z79.899 OTHER HALF-WAY (CURRENT) DRUG THERAPY 01/30/2016 MARGE SPRINGER N Ot Z92.21 PERSONAL HISTORY OF ANTINEOPLASTIC CHEMO 01/30/2016 MARGE SPRINGER N Ot Z92.3 PERSONAL HISTORY OF IRRADIATION 02/28/2016 MARGE SPRINGER Ot C50.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 02/28/2016 MARGE SPRINGER N Ot 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 02/28/2016 GIANMARGE SPANN N Ot M85.80 OTH DISRD OF BONE DENSITY AND STRUCTURE, 02/28/2016 MARGE SPRINGER N Ot 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 02/28/2016 MARGE SPRINGER N Ot Z79.899 OTHER HALF-WAY (CURRENT) DRUG THERAPY 02/28/2016 MARGE SPRINGER N Ot Z92.21 PERSONAL HISTORY OF ANTINEOPLASTIC CHEMO 02/28/2016 MARGE SPRINGER N Ot Z92.3 PERSONAL HISTORY OF IRRADIATION 03/15/2016 MARGE SPRINGER Ji Ot C50.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 03/15/2016 MARGE SPRINGER Ji Ot 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 03/15/2016 MARGE SPRINGER N Ot M85.80 OTH DISRD OF BONE DENSITY AND STRUCTURE, 03/15/2016 GIANMARGE SPANN Ji Ot Z45.2 ENCOUNTER FOR ADJUSTMENT AND MANAGEMENT 03/15/2016 MARGE SPRINGER Ji Ot 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 03/15/2016 MARGE SPRINGER N Ot Z79.899 OTHER HAT AND CAP 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 (CURRENT) DRUG THERAPY 03/15/2016 MARGE SPRINGER N Ot Z92.21 PERSONAL HISTORY OF ANTINEOPLASTIC CHEMO 03/15/2016 GIANMARGE SPANN N Ot Z92.3 PERSONAL HISTORY OF IRRADIATION 04/11/2016 MARGE SPRINGER Ji Ot C50.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 04/11/2016 MARGE SPRINGER Ji Ot 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 04/11/2016 MARGE SPRINGER N Ot M85.80 OTH DISRD OF BONE DENSITY AND STRUCTURE, 04/11/2016 MARGE SPRINGER Ji Ot Z45.2 ENCOUNTER FOR ADJUSTMENT AND MANAGEMENT 04/11/2016 MARGE SPRINGER Ji Ot Z79.811 HALF-WAY (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 OF AROMATASE INH 04/11/2016 MARGE SPRINGER N Ot Z79.899 OTHER HALF-WAY (CURRENT) DRUG THERAPY 04/11/2016 MARGE SPRINGER N Ot Z92.21 PERSONAL HISTORY OF ANTINEOPLASTIC CHEMO 04/11/2016 MARGE SPRINGER N Ot Z92.3 PERSONAL HISTORY OF IRRADIATION 04/22/2016 MARGE SPRINGER N Ot C50.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 04/22/2016 MARGE SPRINGER N Ot 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 04/22/2016 MARGE SPRINGER N Ot M85.80 OTH DISRD OF BONE DENSITY AND STRUCTURE, 04/22/2016 MARGE SPRINGER N Ot Z45.2 ENCOUNTER FOR ADJUSTMENT AND MANAGEMENT 04/22/2016 MARGE SPRINGER N Ot 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 04/22/2016 MARGE SPRINGER N Ot Z79.899 OTHER HAT AND CAP 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 (CURRENT) DRUG THERAPY 04/22/2016 MARGE SPRINGER N Ot Z92.21 PERSONAL HISTORY OF ANTINEOPLASTIC CHEMO 04/22/2016 GIANMARGE SPANN N Ot Z92.3 PERSONAL HISTORY OF IRRADIATION 04/25/2016 MARGE SPRINGER N Ot C50.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 04/25/2016 GIANMARGE SPANN N Ot 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 04/25/2016 GIANMARGE N Ot M85.80 OTH DISRD OF BONE DENSITY AND STRUCTURE, 04/25/2016 GIANMARGE SPANN N Ot Z45.2 ENCOUNTER FOR ADJUSTMENT AND MANAGEMENT 04/25/2016 MARGE SPRINGER N Ot 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 04/25/2016 GIANMARGE SPANN N Ot Z79.899 OTHER HALF-WAY (CURRENT) DRUG THERAPY 04/25/2016 GIANMARGE SPANN N Ot Z92.21 PERSONAL HISTORY OF ANTINEOPLASTIC CHEMO 04/25/2016 GIANMAREG SPANN N Ot Z92.3 PERSONAL HISTORY OF IRRADIATION 04/26/2016 GIANMARGE SPANN N Ot C50.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 04/26/2016 IGANMARGE SPANN N Ot 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 04/26/2016 GIANMARGE N Ot M85.80 OTH DISRD OF BONE DENSITY AND STRUCTURE, 04/26/2016 MARGE SPRINGER N Ot Z45.2 ENCOUNTER FOR ADJUSTMENT AND MANAGEMENT 04/26/2016 MARGE SPRINGER N Ot 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 04/26/2016 GIANMARGE N Ot Z79.899 OTHER HAT AND CAP 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 (CURRENT) DRUG THERAPY 04/26/2016 GIAN NOEMÍMONICA N Ot Z92.21 PERSONAL HISTORY OF ANTINEOPLASTIC CHEMO 04/26/2016 GIAN, MARGE N Ot Z92.3 PERSONAL HISTORY OF IRRADIATION 05/01/2016 GIANMARGE SPANN N Ot D70.9 NEUTROPENIA, UNSPECIFIED 05/01/2016 GIANMARGE Ot D70.9 NEUTROPENIA, UNSPECIFIED 05/04/2016 GIANMARGE N Ot C50.912 MALIGNANT NEOPLASM OF UNSPECIFIED SITE O 05/04/2016 GIAN NOEMÍMONICA Ji Ot 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 05/04/2016 MARGE SPRINGER Ot D70.9 NEUTROPENIA, UNSPECIFIED 05/04/2016 GIANMARGE Ot E03.9 HYPOTHYROIDISM, UNSPECIFIED 05/04/2016 GIANMARGE Ot E78.5 HYPERLIPIDEMIA, UNSPECIFIED 05/04/2016 GIANMARGE Ot E83.42 HYPOMAGNESEMIA 05/04/2016 MARGE SPRINGER Ot F32.9 MAJOR DEPRESSIVE DISORDER, SINGLE EPISOD 05/04/2016 MARGE SPRINGER Ot F41.9 ANXIETY DISORDER, UNSPECIFIED 05/04/2016 MARGE SPRINGER Ot J06.9 ACUTE UPPER RESPIRATORY INFECTION, UNSPE 05/04/2016 MARGE SPRINGER Ot J18.9 PNEUMONIA, UNSPECIFIED ORGANISM 05/04/2016 MARGE SPRINGER Ot K21.9 GASTRO-ESOPHAGEAL REFLUX DISEASE WITHOUT 05/04/2016 MARGE SPRINGER Ot L27.0 GEN SKIN ERUPTION DUE TO DRUGS AND MEDS 05/04/2016 NOEMÍ SPRINGERMONICA Ji Ot M81.0 AGE- RELATED OSTEOPOROSIS W/O CURRENT PAT 05/04/2016 MARGE SPRINGER Ot R19.7 DIARRHEA, UNSPECIFIED 05/04/2016 MARGE SPRINGER Ot R50.81 FEVER PRESENTING WITH CONDITIONS CLASSIF 05/04/2016 NOEMÍ SPRINGERMONICA Ji Ot T46.7X5 A ADVERSE EFFECT OF PERIPHERAL VASODILATOR 05/04/2016 MARGE SPRINGER Ot Z23 ENCOUNTER FOR IMMUNIZATION 05/04/2016 MARGE SPRINGER Ot Z79.811 HALF-WAY (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 OF AROMATASE INH 05/04/2016 MARGE SPRINGER Ot Z87.891 PERSONAL HISTORY OF NICOTINE DEPENDENCE 05/04/2016 MARGE SPRINGER Ot Z92.21 PERSONAL HISTORY OF ANTINEOPLASTIC CHEMO 05/04/2016 MARGE SPRINGER Ot Z92.3 PERSONAL HISTORY OF IRRADIATION 05/16/2016 TITA DELATORRE SALES PERFORMANCE ANALYST Ot R 05 COUGH 05/16/2016 TITA DELATORRE SALES PERFORMANCE ANALYST Ot R06.02 SHORTNESS OF BREATH 05/16/2016 TITA DELATORRE SALES PERFORMANCE ANALYST Ot R50.9 FEVER, UNSPECIFIED 05/16/2016 TITA DELATORRE SALES PERFORMANCE ANALYST Ot R 05 COUGH 05/16/2016 TITA DELATORRE SALES PERFORMANCE ANALYST Ot R06.02 SHORTNESS OF BREATH 05/16/2016 TITA DELATORRE SALES PERFORMANCE ANALYST Ot R50.9 FEVER, UNSPECIFIED 05/16/2016 TITA DELATORRE SALES PERFORMANCE ANALYST Ot R 05 COUGH 05/16/2016 TITA DELATORRE SALES PERFORMANCE ANALYST Ot R06.02 SHORTNESS OF BREATH 05/16/2016 TITA DELATORRE SALES PERFORMANCE ANALYST Ot R50.9 FEVER, UNSPECIFIED 05/22/2016 TITA DELATORRE SALES PERFORMANCE ANALYST Ot R 05 COUGH 05/22/2016 TITA DELATORRE SALES PERFORMANCE ANALYST Ot R06.02 SHORTNESS OF BREATH 05/22/2016 TITA DELATORRE SALES PERFORMANCE ANALYST Ot R50.9 FEVER, UNSPECIFIED 06/19/2016 MARGE SPRINGER Ot C50.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 06/19/2016 MARGE SPRINGER Ot 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 06/19/2016 MARGE SPRINGER Ot M85.80 OTH DISRD OF BONE DENSITY AND STRUCTURE, 06/19/2016 MARGE SPRINGER Ot Z79.811 HALF-WAY (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 OF AROMATASE INH 06/19/2016 MARGE SPRINGER Ot Z79.899 OTHER HALF-WAY (CURRENT) DRUG THERAPY 06/19/2016 MARGE SPRINGER Ot Z92.21 PERSONAL HISTORY OF ANTINEOPLASTIC CHEMO 06/19/2016 MARGE SPRINGER Ot Z92.3 PERSONAL HISTORY OF IRRADIATION 07/24/2016 MARGE SPRINGER Ot C50.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 07/24/2016 MARGE SPRINGER Ot 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 07/24/2016 MAGRE SPRINGER Ot M85.80 OTH DISRD OF BONE DENSITY AND STRUCTURE, 07/24/2016 MARGE SPRINGER Ot Z45.2 ENCOUNTER FOR ADJUSTMENT AND MANAGEMENT 07/24/2016 MARGE SPRINGER Ot 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 07/24/2016 MARGE SPRINGER Ot Z79.899 OTHER HAT AND CAP 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 (CURRENT) DRUG THERAPY 07/24/2016 MARGE SPRINGER Ji Ot Z92.21 PERSONAL HISTORY OF ANTINEOPLASTIC CHEMO 07/24/2016 MARGE SPRINGER Ji Ot Z92.3 PERSONAL HISTORY OF IRRADIATION 07/25/2016 MARGE SPRINGER Ji Ot C50.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 07/25/2016 MARGE SPRINGER Ji Ot 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 07/25/2016 MARGE SPRINGER Ji Ot M85.80 OTH DISRD OF BONE DENSITY AND STRUCTURE, 07/25/2016 MARGE SPRINGER Ji Ot Z45.2 ENCOUNTER FOR ADJUSTMENT AND MANAGEMENT 07/25/2016 MARGE SPRINGER Ji Ot 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 07/25/2016 MARGE SPRINGER N Ot Z79.899 OTHER HAT AND CAP 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 (CURRENT) DRUG THERAPY 07/25/2016 MARGE SPRINGER Ji Ot Z92.21 PERSONAL HISTORY OF ANTINEOPLASTIC CHEMO 07/25/2016 MARGE SPRINGER Ji Ot Z92.3 PERSONAL HISTORY OF IRRADIATION 08/09/2016 MARGE SPRINGER Ji Ot C50.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 08/09/2016 MARGE SPRINGER N Ot 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 08/09/2016 GIANMARGE SPANN Ji Ot M85.80 OTH DISRD OF BONE DENSITY AND STRUCTURE, 08/09/2016 MARGE SPRINGER Ji Ot Z79.811 HALF-WAY (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 OF AROMATASE INH 08/09/2016 MARGE SPRINGER Ji Ot Z79.899 OTHER HAT AND CAP 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 (CURRENT) DRUG THERAPY 08/09/2016 MARGE SPRINGER N Ot Z92.21 PERSONAL HISTORY OF ANTINEOPLASTIC CHEMO 08/09/2016 MARGE SPRINGER N Ot Z92.3 PERSONAL HISTORY OF IRRADIATION 09/10/2016 MARGE SPRINGER Ji Ot C50.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 09/10/2016 MARGE SPRINGER N Ot 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 09/10/2016 MARGE SPRINGER Ji Ot M85.80 OTH DISRD OF BONE DENSITY AND STRUCTURE, 09/10/2016 GIAN NOEMÍMONICA Ji Ot Z79.811 HALF-WAY (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 OF AROMATASE INH 09/10/2016 GIANMARGE SPANN N Ot Z79.899 OTHER HAT AND CAP 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 (CURRENT) DRUG THERAPY 09/10/2016 MARGE SPRINGER N Ot Z92.21 PERSONAL HISTORY OF ANTINEOPLASTIC CHEMO 09/10/2016 GIAN, NOEMÍMONICA N Ot Z92.3 PERSONAL HISTORY OF IRRADIATION 11/06/2016 MARGE SPRINGER Ji Ot C50.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 11/06/2016 MARGE SPRINGER Ji Ot 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 11/06/2016 GIAN, NOEMÍMONICA N Ot M85.80 OTH DISRD OF BONE DENSITY AND STRUCTURE, 11/06/2016 MARGE SPRINGER N Ot Z79.811 HALF-WAY (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 OF AROMATASE INH 11/06/2016 GIAN, MARGE N Ot Z79.899 OTHER HALF-WAY (CURRENT) DRUG THERAPY 11/06/2016 GIAN NOEMÍMOINCA N Ot Z92.21 PERSONAL HISTORY OF ANTINEOPLASTIC CHEMO 11/06/2016 GIAN, NOEMÍMONICA N Ot Z92.3 PERSONAL HISTORY OF IRRADIATION 12/24/2016 GIAN NOEMÍMONICA Ji Ot C50.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 12/24/2016 MARGE SPRINGER N Ot 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 12/24/2016 GIANMARGE SPANN N Ot M85.80 OTH DISRD OF BONE DENSITY AND STRUCTURE, 12/24/2016 GIAN NOEMÍMONICA N Ot 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 12/24/2016 GIAN, MARGE N Ot Z79.899 OTHER HALF-WAY (CURRENT) DRUG THERAPY 12/24/2016 GIAN, MARGE N Ot Z92.21 PERSONAL HISTORY OF ANTINEOPLASTIC CHEMO 12/24/2016 GIAN NOEMÍMONICA N Ot Z92.3 PERSONAL HISTORY OF IRRADIATION 01/14/2017 GIAN NOEMÍMONICA Ji Ot C50.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 01/14/2017 GIAN NOEMÍMONICA N Ot 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 01/14/2017 GIAN MARGE N Ot M85.80 OTH DISRD OF BONE DENSITY AND STRUCTURE, 01/14/2017 MARGE SPRINGER Ot Z45.2 ENCOUNTER FOR ADJUSTMENT AND MANAGEMENT 01/14/2017 MARGE SPRINGER N Ot 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 01/14/2017 MARGE SPRINGER N Ot Z79.899 OTHER HALF-WAY (CURRENT) DRUG THERAPY 01/14/2017 MARGE SPRINGER N Ot Z92.21 PERSONAL HISTORY OF ANTINEOPLASTIC CHEMO 01/14/2017 MARGE SPRINGER N Ot Z92.3 PERSONAL HISTORY OF IRRADIATION 03/09/2017 MARGE SPRINGER Ji Ot C50.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 03/09/2017 MARGE SPRINGRE Ji Ot 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 03/09/2017 MARGE SPRINGER Ji Ot M85.80 OTH DISRD OF BONE DENSITY AND STRUCTURE, 03/09/2017 MARGE SPRINGER Ji Ot Z45.2 ENCOUNTER FOR ADJUSTMENT AND MANAGEMENT 03/09/2017 MARGE SPRINGER Ji Ot 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 03/09/2017 GIAN, NOEMÍMONICA N Ot Z79.899 OTHER HAT AND CAP 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 (CURRENT) DRUG THERAPY 03/09/2017 GIAN NOEMÍMONICA Ji Ot Z92.21 PERSONAL HISTORY OF ANTINEOPLASTIC CHEMO 03/09/2017 MARGE SPRINGER N Ot Z92.3 PERSONAL HISTORY OF IRRADIATION 03/11/2017 MARGE SPRINGER Ji Ot C50.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 03/11/2017 MARGE SPRINGER Ji Ot 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 03/11/2017 GIAN, NOEMÍMONICA Ji Ot M85.80 OTH DISRD OF BONE DENSITY AND STRUCTURE, 03/11/2017 MARGE SPRINGER Ji Ot 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 03/11/2017 MARGE SPRINGER N Ot Z79.899 OTHER HALF-WAY (CURRENT) DRUG THERAPY 03/11/2017 MARGE SPRINGER N Ot Z92.21 PERSONAL HISTORY OF ANTINEOPLASTIC CHEMO 03/11/2017 GIAN, MARGE N Ot Z92.3 PERSONAL HISTORY OF IRRADIATION 04/11/2017 MARGE SPRINGER Ji Ot C50.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 04/11/2017 MARGE SPRINGER N Ot 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 04/11/2017 MARGE SPRINGER N Ot M85.80 OTH DISRD OF BONE DENSITY AND STRUCTURE, 04/11/2017 MARGE SPRINGER N Ot Z79.811 HALF-WAY (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 OF AROMATASE INH 04/11/2017 MARGE SPRINGER N Ot Z79.899 OTHER HAT AND CAP 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 (CURRENT) DRUG THERAPY 04/11/2017 MARGE SPRINGER N Ot Z92.21 PERSONAL HISTORY OF ANTINEOPLASTIC CHEMO 04/11/2017 MARGE SPRINGER N Ot Z92.3 PERSONAL HISTORY OF IRRADIATION 04/19/2017 MARGE SPRINGER Ji Ot C50.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 04/19/2017 MARGE SPRINGER N Ot 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 04/19/2017 GIANMARGE SPANN N Ot M85.80 OTH DISRD OF BONE DENSITY AND STRUCTURE, 04/19/2017 MARGE SPRINGER N Ot Z45.2 ENCOUNTER FOR ADJUSTMENT AND MANAGEMENT 04/19/2017 MARGE SPRINGER N Ot Z79.811 HALF-WAY (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 OF AROMATASE INH 04/19/2017 MARGE SPRINGER N Ot Z79.899 OTHER HAT AND CAP 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 (CURRENT) DRUG THERAPY 04/19/2017 MARGE SPRINGER N Ot Z92.21 PERSONAL HISTORY OF ANTINEOPLASTIC CHEMO 04/19/2017 MARGE SPRINGER N Ot Z92.3 PERSONAL HISTORY OF IRRADIATION 05/28/2017 MARGE SPRINGER Ji Ot C50.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 05/28/2017 MARGE SPRINGER N Ot 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 05/28/2017 MARGE SPRINGER N Ot M85.80 OTH DISRD OF BONE DENSITY AND STRUCTURE, 05/28/2017 MARGE SPRINGER N Ot Z45.2 ENCOUNTER FOR ADJUSTMENT AND MANAGEMENT 05/28/2017 MARGE SPRINGER N Ot 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 05/28/2017 MARGE SPRINGER N Ot Z79.899 OTHER HAT AND CAP 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 (CURRENT) DRUG THERAPY 05/28/2017 MARGE SPRINGER N Ot Z92.21 PERSONAL HISTORY OF ANTINEOPLASTIC CHEMO 05/28/2017 GIANMARGE SPANN N Ot Z92.3 PERSONAL HISTORY OF IRRADIATION 07/15/2017 MARGE SPRINGER Ji Ot C50.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 07/15/2017 MARGE SPRINGER N Ot 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 07/15/2017 GIANMARGE SPANN N Ot M85.80 OTH DISRD OF BONE DENSITY AND STRUCTURE, 07/15/2017 MARGE SPRINGER N Ot Z45.2 ENCOUNTER FOR ADJUSTMENT AND MANAGEMENT 07/15/2017 MARGE SPRINGER N Ot Z79.811 HALF-WAY (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 OF AROMATASE INH 07/15/2017 MARGE SPRINGER N Ot Z79.899 OTHER HALF-WAY (CURRENT) DRUG THERAPY 07/15/2017 MARGE SPRINGER N Ot Z92.21 PERSONAL HISTORY OF ANTINEOPLASTIC CHEMO 07/15/2017 GIANMARGE SPANN N Ot Z92.3 PERSONAL HISTORY OF IRRADIATION 08/14/2017 MARGE SPRINGER Ji Ot C50.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 08/14/2017 MARGE SPRINGER N Ot 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 08/14/2017 GIANMARGE SPANN N Ot M85.80 OTH DISRD OF BONE DENSITY AND STRUCTURE, 08/14/2017 IGANMARGE SPANN N Ot Z45.2 ENCOUNTER FOR ADJUSTMENT AND MANAGEMENT 08/14/2017 MARGE SPRINGER N Ot 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 08/14/2017 MARGE SPRINGER N Ot Z79.899 OTHER HAT AND CAP 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 (CURRENT) DRUG THERAPY 08/14/2017 MARGE SPRINGER N Ot Z92.21 PERSONAL HISTORY OF ANTINEOPLASTIC CHEMO 08/14/2017 GIAN, NOEMÍMONICA N Ot Z92.3 PERSONAL HISTORY OF IRRADIATION 08/25/2017 MARGE SPRINGER Ji Ot C50.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 08/25/2017 MARGE SPRINGER N Ot 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 08/25/2017 GIANMARGE SPANN N Ot M85.80 OTH DISRD OF BONE DENSITY AND STRUCTURE, 08/25/2017 MARGE SPRINGER N Ot Z45.2 ENCOUNTER FOR ADJUSTMENT AND MANAGEMENT 08/25/2017 MARGE SPRINGER N Ot 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 08/25/2017 GIAN, MARGE N Ot Z79.899 OTHER HALF-WAY (CURRENT) DRUG THERAPY 08/25/2017 MARGE SPRINGER N Ot Z92.21 PERSONAL HISTORY OF ANTINEOPLASTIC CHEMO 08/25/2017 MARGE SPRINGER N Ot Z92.3 PERSONAL HISTORY OF IRRADIATION 08/26/2017 MARGE SPRINGER Ot C50.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 08/26/2017 MARGE SPRINGER N Ot 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 08/26/2017 MARGE SPRINGER N Ot M85.80 OTH DISRD OF BONE DENSITY AND STRUCTURE, 08/26/2017 MARGE SPRINGER N Ot Z45.2 ENCOUNTER FOR ADJUSTMENT AND MANAGEMENT 08/26/2017 MARGE SPRINGER N Ot 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 08/26/2017 MARGE SPRINGER N Ot Z79.899 OTHER HAT AND CAP 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 (CURRENT) DRUG THERAPY 08/26/2017 MARGE SPRINGER N Ot Z92.21 PERSONAL HISTORY OF ANTINEOPLASTIC CHEMO 08/26/2017 MARGE SPRINGER N Ot Z92.3 PERSONAL HISTORY OF IRRADIATION 08/31/2017 MARGE SPRINGER N Ot C50.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 08/31/2017 MARGE SPRINGER N Ot 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 08/31/2017 MARGE SPRINGER N Ot M85.80 OTH DISRD OF BONE DENSITY AND STRUCTURE, 08/31/2017 MARGE SPRINGER N Ot Z45.2 ENCOUNTER FOR ADJUSTMENT AND MANAGEMENT 08/31/2017 MARGE SPRINGER N Ot 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 08/31/2017 MARGE SPRINGER N Ot Z79.899 OTHER HALF-WAY (CURRENT) DRUG THERAPY 08/31/2017 MARGE SPRINGER N Ot Z92.21 PERSONAL HISTORY OF ANTINEOPLASTIC CHEMO 08/31/2017 MARGE SPRINGER N Ot Z92.3 PERSONAL HISTORY OF IRRADIATION 09/11/2017 GABBY NEELY, ORTEGA Merchant Ot 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 09/11/2017 GABBY NEELY, ORTEGA Merchant Ot D72.819 DECREASED WHITE BLOOD CELL COUNT, UNSPEC 09/11/2017 GABBY NEELY, ORTEGA Merchant Ot E78.00 PURE HYPERCHOLESTEROLEMIA, UNSPECIFIED 09/11/2017 ORTEGA PIERRE MD Ot F32.9 MAJOR DEPRESSIVE DISORDER, SINGLE EPISOD 09/11/2017 ORTEGA PIERRE MD Ot F41.9 ANXIETY DISORDER, UNSPECIFIED 09/11/2017 ORTEGA PIERRE MD, Ot J18.9 PNEUMONIA, UNSPECIFIED ORGANISM 09/11/2017 ORTEGA PIERRE MD Ot R50.81 FEVER PRESENTING WITH CONDITIONS CLASSIF 09/12/2017 MARGE SPRINGER Ot C50.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 09/12/2017 MARGE SPRINGER Ot 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 09/12/2017 GIAN MARGE Workman Ot M85.80 OTH DISRD OF BONE DENSITY AND STRUCTURE, 09/12/2017 GIAN MARGE Workman Ot Z45.2 ENCOUNTER FOR ADJUSTMENT AND MANAGEMENT 09/12/2017 MARGE SPRINGER Ot Z79.811 HALF-WAY (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 OF AROMATASE INH 09/12/2017 MARGE SPRINGER Ot Z79.899 OTHER HAT AND CAP 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 (CURRENT) DRUG THERAPY 09/12/2017 GIANMARGE Ot Z92.21 PERSONAL HISTORY OF ANTINEOPLASTIC CHEMO 09/12/2017 MARGE SPRINGER Ot Z92.3 PERSONAL HISTORY OF IRRADIATION 09/12/2017 ORTEGA PIERRE MD Ot 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 09/12/2017 ORTEGA PIERRE MD Ot D72.819 DECREASED WHITE BLOOD CELL COUNT, UNSPEC 09/12/2017 ORTEGA PIERRE MD Ot E78.00 PURE HYPERCHOLESTEROLEMIA, UNSPECIFIED 09/12/2017 ORTEGA PIERRE MD Ot F32.9 MAJOR DEPRESSIVE DISORDER, SINGLE EPISOD 09/12/2017 ORTEGA PIERRE MD Ot F41.9 ANXIETY DISORDER, UNSPECIFIED 09/12/2017 ORTEGA PIERRE MD, Ot J18.9 PNEUMONIA, UNSPECIFIED ORGANISM 09/12/2017 ORTEGA PIERRE MD Ot R50.81 FEVER PRESENTING WITH CONDITIONS CLASSIF 09/12/2017 ORTEGA PIERRE MD Ot 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 09/12/2017 ORTEGA PIERRE MD Ot D72.819 DECREASED WHITE BLOOD CELL COUNT, UNSPEC 09/12/2017 ORTEGA PIERRE MD Ot E78.00 PURE HYPERCHOLESTEROLEMIA, UNSPECIFIED 09/12/2017 ORTEGA PIERRE MD Ot F32.9 MAJOR DEPRESSIVE DISORDER, SINGLE EPISOD 09/12/2017 ORTEGA PIERRE MD Ot F41.9 ANXIETY DISORDER, UNSPECIFIED 09/12/2017 ORTEGA PIERRE MD, Ot J18.9 PNEUMONIA, UNSPECIFIED ORGANISM 09/12/2017 ORTEGA PIERRE MD Ot R50.81 FEVER PRESENTING WITH CONDITIONS CLASSIF 09/13/2017 ORTEGA PIERRE MD Ot C50.912 MALIGNANT NEOPLASM OF UNSPECIFIED SITE O 09/13/2017 ORTEGA PIERRE MD Ot 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0 AGE-RELATED OSTEOPOROSIS W/O CURRENT PAT 09/13/2017 ORTEGA PIERRE MD Ot N17.9 ACUTE KIDNEY FAILURE, UNSPECIFIED 09/13/2017 ORTEGA PIERRE MD, Ot N18.9 CHRONIC KIDNEY DISEASE, UNSPECIFIED 09/13/2017 ORTEGA PIERRE MD Ot 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 09/13/2017 ORTEGA PIERRE MD Ot Z79.899 OTHER HAT AND CAP 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 (CURRENT) DRUG THERAPY 09/13/2017 ORTEGA PIERRE MD Ot Z86.718 PERSONAL HISTORY OF OTHER VENOUS THROMBO 09/13/2017 ORTEGA PIERRE MD, Ot Z87.891 PERSONAL HISTORY OF NICOTINE DEPENDENCE 09/13/2017 ORTEGA PIERRE MD Ot Z92.21 PERSONAL HISTORY OF ANTINEOPLASTIC CHEMO 09/13/2017 ORTEGA PIERRE MD Ot Z92.3 PERSONAL HISTORY OF IRRADIATION 09/13/2017 ORTEGA PIERRE MD Ot C50.912 MALIGNANT NEOPLASM OF UNSPECIFIED SITE O 09/13/2017 ORTEGA PIERRE MD Ot 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0 AGE-RELATED OSTEOPOROSIS W/O CURRENT PAT 09/13/2017 ORTEGA PIERRE MD Ot N17.9 ACUTE KIDNEY FAILURE, UNSPECIFIED 09/13/2017 ORTEGA PIERRE MD, Ot N18.9 CHRONIC KIDNEY DISEASE, UNSPECIFIED 09/13/2017 ORTEGA PIERRE MD Ot 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 09/13/2017 ORTEGA PIERRE MD Ot Z79.899 OTHER HALF-WAY (CURRENT) DRUG THERAPY 09/13/2017 ORTEGA PIERRE MD Ot Z86.718 PERSONAL HISTORY OF OTHER VENOUS THROMBO 09/13/2017 ORTEGA PIERRE MD Ot Z87.891 PERSONAL HISTORY OF NICOTINE DEPENDENCE 09/13/2017 ORTEGA PIERRE MD Ot Z92.21 PERSONAL HISTORY OF ANTINEOPLASTIC CHEMO 09/13/2017 ORTEGA PIERRE MD Ot Z92.3 PERSONAL HISTORY OF IRRADIATION 09/14/2017 ORTEGA PIERRE MD Ot C50.912 MALIGNANT NEOPLASM OF UNSPECIFIED SITE O 09/14/2017 ORTEGA PIERRE MD Ot 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 09/14/2017 ORTEGA PIERRE MD, Ot E03.9 HYPOTHYROIDISM, UNSPECIFIED 09/14/2017 ORTEGA PIERRE MD, Ot E78.00 PURE HYPERCHOLESTEROLEMIA, UNSPECIFIED 09/14/2017 ORTEGA PIERRE MD Ot E86.0 DEHYDRATION 09/14/2017 ORTEGA PIERRE MD Ot F32.9 MAJOR DEPRESSIVE DISORDER, SINGLE EPISOD 09/14/2017 ORTEGA PIERRE MD, Ot F41.9 ANXIETY DISORDER, UNSPECIFIED 09/14/2017 ORTEGA PIERRE MD, Ot J10.00 FLU DUE TO OTH IDENT FLU VIRUS W UNSP TY 09/14/2017 ORTEGA PIERRE MD, Ot J18.9 PNEUMONIA, UNSPECIFIED ORGANISM 09/14/2017 ORTEGA PIERRE MD, Ot K21.9 GASTRO-ESOPHAGEAL REFLUX DISEASE WITHOUT 09/14/2017 ORTEGA PIERRE MD, Ot M81.0 AGE-RELATED OSTEOPOROSIS W/O CURRENT PAT 09/14/2017 ORTEGA PIERRE MD Ot N17.9 ACUTE KIDNEY FAILURE, UNSPECIFIED 09/14/2017 ORTEGA PIERRE MD, Ot N18.9 CHRONIC KIDNEY DISEASE, UNSPECIFIED 09/14/2017 ORTEGA PIERRE MD Ot Z79.01 HALF-WAY (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 OF ANTICOAGULANT 09/14/2017 ORTEGA PIERRE MD Ot Z79.899 OTHER HALF-WAY (CURRENT) DRUG THERAPY 09/14/2017 ORTEGA PIERRE MD, Ot Z86.718 PERSONAL HISTORY OF OTHER VENOUS THROMBO 09/14/2017 ORTEGA PIERRE MD, Ot Z87.891 PERSONAL HISTORY OF NICOTINE DEPENDENCE 09/14/2017 ORTEGA PIERRE MD Ot Z92.21 PERSONAL HISTORY OF ANTINEOPLASTIC CHEMO 09/14/2017 ORTEGA PIERRE MD, Ot Z92.3 PERSONAL HISTORY OF IRRADIATION 09/15/2017 ORTEGA PIERRE MD Ot C50.912 MALIGNANT NEOPLASM OF UNSPECIFIED SITE O 09/15/2017 ORTEGA PIERRE MD, Ot 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 09/15/2017 ORTEGA PIERRE MD, Ot E03.9 HYPOTHYROIDISM, UNSPECIFIED 09/15/2017 ORTEGA PIERRE MD, Ot E78.00 PURE HYPERCHOLESTEROLEMIA, UNSPECIFIED 09/15/2017 ORTEGA PIERRE MD Ot E86.0 DEHYDRATION 09/15/2017 ORTEGA PIERRE MD Ot F32.9 MAJOR DEPRESSIVE DISORDER, SINGLE EPISOD 09/15/2017 ORTEGA PIERRE MD, Ot F41.9 ANXIETY DISORDER, UNSPECIFIED 09/15/2017 ORTEGA PIERRE MD Ot J10.00 FLU DUE TO OTH IDENT FLU VIRUS W UNSP TY 09/15/2017 ORTEGA PIERRE MD, Ot J18.9 PNEUMONIA, UNSPECIFIED ORGANISM 09/15/2017 ORTEGA PIERRE MD, Ot K21.9 GASTRO-ESOPHAGEAL REFLUX DISEASE WITHOUT 09/15/2017 ORTEGA PIERRE MD, Ot M81.0 AGE-RELATED OSTEOPOROSIS W/O CURRENT PAT 09/15/2017 ORTEGA PIERRE MD, Ot N17.9 ACUTE KIDNEY FAILURE, UNSPECIFIED 09/15/2017 ORTEGA PIERRE MD, Ot N18.9 CHRONIC KIDNEY DISEASE, UNSPECIFIED 09/15/2017 ORTEGA PIERRE MD Ot Z79.01 HALF-WAY (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 OF ANTICOAGULANT 09/15/2017 ORTEGA PIERRE MD Ot Z79.899 OTHER HAT AND CAP 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 (CURRENT) DRUG THERAPY 09/15/2017 ORTEGA PIERRE MD Ot Z86.718 PERSONAL HISTORY OF OTHER VENOUS THROMBO 09/15/2017 ORTEGA PIERRE MD Ot Z87.891 PERSONAL HISTORY OF NICOTINE DEPENDENCE 09/15/2017 ORTEGA PIERRE MD Ot Z92.21 PERSONAL HISTORY OF ANTINEOPLASTIC CHEMO 09/15/2017 ORTEGA PIERRE MD Ot Z92.3 PERSONAL HISTORY OF IRRADIATION 09/16/2017 ORTEGA PIERRE MD Ot C50.912 MALIGNANT NEOPLASM OF UNSPECIFIED SITE O 09/16/2017 ORTEGA PIERRE MD Ot 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 09/16/2017 ORTEGA PIERRE MD Ot E03.9 HYPOTHYROIDISM, UNSPECIFIED 09/16/2017 ORTEGA PIERRE MD Ot E78.00 PURE HYPERCHOLESTEROLEMIA, UNSPECIFIED 09/16/2017 ORTEGA PIERRE MD Ot E86.0 DEHYDRATION 09/16/2017 ORTEGA PIERRE MD, Ot F32.9 MAJOR DEPRESSIVE DISORDER, SINGLE EPISOD 09/16/2017 GABBY MD, ORTEGA A Ot F41.9 ANXIETY DISORDER, UNSPECIFIED 09/16/2017 ORTEGA PIERRE MD, Ot J10.00 FLU DUE TO OTH IDENT FLU VIRUS W UNSP TY 09/16/2017 ORTEGA PIERRE MD, Ot J18.9 PNEUMONIA, UNSPECIFIED ORGANISM 09/16/2017 ORTEGA IPERRE MD, Ot K21.9 GASTRO-ESOPHAGEAL REFLUX DISEASE WITHOUT 09/16/2017 ORTEGA PIERRE MD Ot M81.0 AGE-RELATED OSTEOPOROSIS W/O CURRENT PAT 09/16/2017 ORTEGA PIERRE MD, Ot N17.9 ACUTE KIDNEY FAILURE, UNSPECIFIED 09/16/2017 ORTEGA PIERRE MD, Ot N18.9 CHRONIC KIDNEY DISEASE, UNSPECIFIED 09/16/2017 ORTEGA PIERRE MD, Ot 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 09/16/2017 ORTEGA PIERRE MD, Ot Z79.899 OTHER HALF-WAY (CURRENT) DRUG THERAPY 09/16/2017 ORTEGA PIERRE MD Ot Z86.718 PERSONAL HISTORY OF OTHER VENOUS THROMBO 09/16/2017 ORTEGA PIERRE MD Ot Z87.891 PERSONAL HISTORY OF NICOTINE DEPENDENCE 09/16/2017 ORTEGA PIERRE MD Ot Z92.21 PERSONAL HISTORY OF ANTINEOPLASTIC CHEMO 09/16/2017 ORTEGA PIERRE MD Ot Z92.3 PERSONAL HISTORY OF IRRADIATION 09/17/2017 ORTEGA PIERRE MD Ot C50.912 MALIGNANT NEOPLASM OF UNSPECIFIED SITE O 09/17/2017 ORTEGA PIERRE MD Ot 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 09/17/2017 ORTEGA PIERRE MD Ot E03.9 HYPOTHYROIDISM, UNSPECIFIED 09/17/2017 ORTEGA PIERRE MD Ot E78.00 PURE HYPERCHOLESTEROLEMIA, UNSPECIFIED 09/17/2017 ORTEGA PIERRE MD Ot E86.0 DEHYDRATION 09/17/2017 ORTEGA PIERRE MD Ot F32.9 MAJOR DEPRESSIVE DISORDER, SINGLE EPISOD 09/17/2017 ORTEGA PIERRE MD, Ot F41.9 ANXIETY DISORDER, UNSPECIFIED 09/17/2017 ORTEGA PIERRE MD, Ot J10.00 FLU DUE TO OTH IDENT FLU VIRUS W UNSP TY 09/17/2017 ORTEGA PIERRE MD, Ot J18.9 PNEUMONIA, UNSPECIFIED ORGANISM 09/17/2017 ORTEGA PIERRE MD, Ot K21.9 GASTRO-ESOPHAGEAL REFLUX DISEASE WITHOUT 09/17/2017 ORTEGA PIERRE MD, Ot M81.0 AGE-RELATED OSTEOPOROSIS W/O CURRENT PAT 09/17/2017 ORTEGA PIERRE MD, Ot N17.9 ACUTE KIDNEY FAILURE, UNSPECIFIED 09/17/2017 ORTEGA PIERRE MD, Ot N18.9 CHRONIC KIDNEY DISEASE, UNSPECIFIED 09/17/2017 ORTEGA PIERRE MD, Ot 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 09/17/2017 ORTEGA PIERRE MD, Ot Z79.899 OTHER HAT AND CAP 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 (CURRENT) DRUG THERAPY 09/17/2017 ORTEGA PIERRE MD, Ot Z86.718 PERSONAL HISTORY OF OTHER VENOUS THROMBO 09/17/2017 ORTEGA PIERRE MD, Ot Z87.891 PERSONAL HISTORY OF NICOTINE DEPENDENCE 09/17/2017 ORTEGA PIERRE MD Ot Z92.21 PERSONAL HISTORY OF ANTINEOPLASTIC CHEMO 09/17/2017 ORTEGA PIERRE MD, Ot Z92.3 PERSONAL HISTORY OF IRRADIATION 09/18/2017 ORTEGA PIERRE MD Ot C50.912 MALIGNANT NEOPLASM OF UNSPECIFIED SITE O 09/18/2017 ORTEGA PIERRE MD Ot 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 09/18/2017 ORTEGA PIERRE MD Ot E03.9 HYPOTHYROIDISM, UNSPECIFIED 09/18/2017 ORTEGA PIERRE MD Ot E78.00 PURE HYPERCHOLESTEROLEMIA, UNSPECIFIED 09/18/2017 ORTEGA PIERRE MD Ot E86.0 DEHYDRATION 09/18/2017 ORTEGA PIERRE MD Ot F32.9 MAJOR DEPRESSIVE DISORDER, SINGLE EPISOD 09/18/2017 ORTEGA PIERRE MD, Ot F41.9 ANXIETY DISORDER, UNSPECIFIED 09/18/2017 ORTEGA PIERRE MD, Ot J10.00 FLU DUE TO OTH IDENT FLU VIRUS W UNSP TY 09/18/2017 ORTEGA PIERRE MD, Ot J18.9 PNEUMONIA, UNSPECIFIED ORGANISM 09/18/2017 ORTEGA PIERER MD, Ot K21.9 GASTRO-ESOPHAGEAL REFLUX DISEASE WITHOUT 09/18/2017 ORTEGA PIERRE MD, Ot M81.0 AGE-RELATED OSTEOPOROSIS W/O CURRENT PAT 09/18/2017 ORTEGA PIERRE MD Ot N17.9 ACUTE KIDNEY FAILURE, UNSPECIFIED 09/18/2017 ORTEGA PIERRE MD Ot N18.9 CHRONIC KIDNEY DISEASE, UNSPECIFIED 09/18/2017 ORTEGA PIERRE MD Ot Z79.01 HALF-WAY (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 OF ANTICOAGULANT 09/18/2017 ORTEGA PIERRE MD Ot Z79.899 OTHER HAT AND CAP 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 (CURRENT) DRUG THERAPY 09/18/2017 ORTEGA PIERRE MD Ot Z86.718 PERSONAL HISTORY OF OTHER VENOUS THROMBO 09/18/2017 ORTEGA PIERRE MD, Ot Z87.891 PERSONAL HISTORY OF NICOTINE DEPENDENCE 09/18/2017 ORTEGA PIERRE MD Ot Z92.21 PERSONAL HISTORY OF ANTINEOPLASTIC CHEMO 09/18/2017 ORTEGA PIERRE MD Ot Z92.3 PERSONAL HISTORY OF IRRADIATION 09/19/2017 ORTEGA PIERRE MD Ot C50.912 MALIGNANT NEOPLASM OF UNSPECIFIED SITE O 09/19/2017 ORTEGA PIERRE MD Ot 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0 AGE-RELATED OSTEOPOROSIS W/O CURRENT PAT 09/19/2017 ORTEGA PIERRE MD Ot N17.9 ACUTE KIDNEY FAILURE, UNSPECIFIED 09/19/2017 ORTEGA PIERRE MD Ot N18.9 CHRONIC KIDNEY DISEASE, UNSPECIFIED 09/19/2017 ORTEGA PIERRE MD Ot 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 09/19/2017 ORTEGA PIERRE MD Ot Z79.899 OTHER HALF-WAY (CURRENT) DRUG THERAPY 09/19/2017 ORTEGA PIERRE MD Ot Z86.718 PERSONAL HISTORY OF OTHER VENOUS THROMBO 09/19/2017 ORTEGA PIERRE MD Ot Z87.891 PERSONAL HISTORY OF NICOTINE DEPENDENCE 09/19/2017 ORTEGA PIERRE MD Ot Z92.21 PERSONAL HISTORY OF ANTINEOPLASTIC CHEMO 09/19/2017 ORTEGA PIERRE MD Ot Z92.3 PERSONAL HISTORY OF IRRADIATION 09/20/2017 ORTEGA PIERRE MD Ot C50.912 MALIGNANT NEOPLASM OF UNSPECIFIED SITE O 09/20/2017 ORTEGA PIERRE MD Ot 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0 AGE-RELATED OSTEOPOROSIS W/O CURRENT PAT 09/20/2017 ORTEGA PIERRE MD Ot N17.9 ACUTE KIDNEY FAILURE, UNSPECIFIED 09/20/2017 ORTEGA PIERRE MD, Ot N18.9 CHRONIC KIDNEY DISEASE, UNSPECIFIED 09/20/2017 ORTEGA PIERRE MD Ot 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 09/20/2017 ORTEGA PIERRE MD Ot Z79.899 OTHER HALF-WAY (CURRENT) DRUG THERAPY 09/20/2017 ORTEGA PIERRE MD Ot Z86.718 PERSONAL HISTORY OF OTHER VENOUS THROMBO 09/20/2017 ORTEGA PIERRE MD Ot Z87.891 PERSONAL HISTORY OF NICOTINE DEPENDENCE 09/20/2017 ORTEGA PIERRE MD Ot Z92.21 PERSONAL HISTORY OF ANTINEOPLASTIC CHEMO 09/20/2017 ORTEGA PIERRE MD Ot Z92.3 PERSONAL HISTORY OF IRRADIATION 09/21/2017 ORTEGA PIERRE MD Ot C50.912 MALIGNANT NEOPLASM OF UNSPECIFIED SITE O 09/21/2017 ORTEGA PIERRE MD Ot 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0 AGE-RELATED OSTEOPOROSIS W/O CURRENT PAT 09/21/2017 ORTEGA PIERRE MD Ot N17.9 ACUTE KIDNEY FAILURE, UNSPECIFIED 09/21/2017 ORTEGA PIERRE MD, Ot N18.9 CHRONIC KIDNEY DISEASE, UNSPECIFIED 09/21/2017 ORTEGA PIERRE MD Ot 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 09/21/2017 ORTEGA PIERRE MD Ot Z79.899 OTHER HALF-WAY (CURRENT) DRUG THERAPY 09/21/2017 ORTEGA PIERRE MD Ot Z86.718 PERSONAL HISTORY OF OTHER VENOUS THROMBO 09/21/2017 ORTEGA PIERRE MD, Ot Z87.891 PERSONAL HISTORY OF NICOTINE DEPENDENCE 09/21/2017 ORTEGA PIERRE MD Ot Z92.21 PERSONAL HISTORY OF ANTINEOPLASTIC CHEMO 09/21/2017 ORTEGA PIERRE MD Ot Z92.3 PERSONAL HISTORY OF IRRADIATION 09/21/2017 ORTEGA PIERRE MD, Ot C50.912 MALIGNANT NEOPLASM OF UNSPECIFIED SITE O 09/21/2017 ORTEGA PIERRE MD, Ot 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 09/21/2017 ORTEGA PIERRE MD Ot E03.9 HYPOTHYROIDISM, UNSPECIFIED 09/21/2017 ORTEGA PIERRE MD Ot E78.00 PURE HYPERCHOLESTEROLEMIA, UNSPECIFIED 09/21/2017 ORTEGA PIERRE MD Ot E86.0 DEHYDRATION 09/21/2017 ORTEGA PIERRE MD, Ot F32.9 MAJOR DEPRESSIVE DISORDER, SINGLE EPISOD 09/21/2017 ORTEGA PIERRE MD, Ot F41.9 ANXIETY DISORDER, UNSPECIFIED 09/21/2017 ORTEGA PIERRE MD, Ot J10.00 FLU DUE TO OTH IDENT FLU VIRUS W UNSP TY 09/21/2017 ORTEGA PIERRE MD, Ot J18.9 PNEUMONIA, UNSPECIFIED ORGANISM 09/21/2017 ORTEGA PIERRE MD, Ot K21.9 GASTRO-ESOPHAGEAL REFLUX DISEASE WITHOUT 09/21/2017 ORTEGA PIERRE MD Ot M81.0 AGE-RELATED OSTEOPOROSIS W/O CURRENT PAT 09/21/2017 ORTEGA PIERRE MD Ot N17.9 ACUTE KIDNEY FAILURE, UNSPECIFIED 09/21/2017 ORTEGA PIERRE MD, Ot N18.9 CHRONIC KIDNEY DISEASE, UNSPECIFIED 09/21/2017 ORTEGA PIERRE MD Ot Z79.01 HALF-WAY (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 OF ANTICOAGULANT 09/21/2017 ORTEGA PIERRE MD Ot Z79.899 OTHER HALF-WAY (CURRENT) DRUG THERAPY 09/21/2017 ORTEGA PIERRE MD Ot Z86.718 PERSONAL HISTORY OF OTHER VENOUS THROMBO 09/21/2017 ORTEGA PIERRE MD Ot Z87.891 PERSONAL HISTORY OF NICOTINE DEPENDENCE 09/21/2017 ORTEGA PIERRE MD Ot Z92.21 PERSONAL HISTORY OF ANTINEOPLASTIC CHEMO 09/21/2017 ORTEGA PIERRE MD Ot Z92.3 PERSONAL HISTORY OF IRRADIATION 09/22/2017 ORTEGA PIERRE MD, Ot C50.912 MALIGNANT NEOPLASM OF UNSPECIFIED SITE O 09/22/2017 GABBY MD, ORTEGA A Ot 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 09/22/2017 ORTEGA PIERRE MD Ot E03.9 HYPOTHYROIDISM, UNSPECIFIED 09/22/2017 ORTEGA PIERRE MD, Ot E78.00 PURE HYPERCHOLESTEROLEMIA, UNSPECIFIED 09/22/2017 ORTEGA PIERRE MD Ot E86.0 DEHYDRATION 09/22/2017 ORTEGA PIERRE MD Ot F32.9 MAJOR DEPRESSIVE DISORDER, SINGLE EPISOD 09/22/2017 ORTEGA PIERRE MD, Ot F41.9 ANXIETY DISORDER, UNSPECIFIED 09/22/2017 ORTEGA PIERRE MD, Ot J10.00 FLU DUE TO OTH IDENT FLU VIRUS W UNSP TY 09/22/2017 ORTEGA PIERRE MD, Ot J18.9 PNEUMONIA, UNSPECIFIED ORGANISM 09/22/2017 ORTEGA PIERRE MD, Ot K21.9 GASTRO-ESOPHAGEAL REFLUX DISEASE WITHOUT 09/22/2017 ORTEGA PIERRE MD Ot M81.0 AGE-RELATED OSTEOPOROSIS W/O CURRENT PAT 09/22/2017 ORTEGA PIERRE MD Ot N17.9 ACUTE KIDNEY FAILURE, UNSPECIFIED 09/22/2017 ORTEGA PIERRE MD, Ot N18.9 CHRONIC KIDNEY DISEASE, UNSPECIFIED 09/22/2017 ORTEGA PIERRE MD Ot Z79.01 HALF-WAY (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 OF ANTICOAGULANT 09/22/2017 ORTEGA PIERRE MD Ot Z79.899 OTHER HALF-WAY (CURRENT) DRUG THERAPY 09/22/2017 ORTEGA PIERRE MD Ot Z86.718 PERSONAL HISTORY OF OTHER VENOUS THROMBO 09/22/2017 ORTEGA PIERRE MD, Ot Z87.891 PERSONAL HISTORY OF NICOTINE DEPENDENCE 09/22/2017 ORTEGA PIERRE MD Ot Z92.21 PERSONAL HISTORY OF ANTINEOPLASTIC CHEMO 09/22/2017 ORTEGA PIERRE MD Ot Z92.3 PERSONAL HISTORY OF IRRADIATION 09/23/2017 ORTEGA PIERRE MD Ot C50.912 MALIGNANT NEOPLASM OF UNSPECIFIED SITE O 09/23/2017 ORTEGA PIERRE MD, Ot 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 09/23/2017 ORTEGA PIERRE MD, Ot E03.9 HYPOTHYROIDISM, UNSPECIFIED 09/23/2017 ORTEGA PIERRE MD, Ot E78.00 PURE HYPERCHOLESTEROLEMIA, UNSPECIFIED 09/23/2017 ORTEGA PIERRE MD Ot E86.0 DEHYDRATION 09/23/2017 ORTEGA PIERRE MD Ot F32.9 MAJOR DEPRESSIVE DISORDER, SINGLE EPISOD 09/23/2017 ORTEGA PIERRE MD Ot F41.9 ANXIETY DISORDER, UNSPECIFIED 09/23/2017 ORTEGA PIERRE MD Ot J10.00 FLU DUE TO OTH IDENT FLU VIRUS W UNSP TY 09/23/2017 ORTEGA PIERRE MD, Ot J18.9 PNEUMONIA, UNSPECIFIED ORGANISM 09/23/2017 ORTEGA PIERRE MD, Ot K21.9 GASTRO-ESOPHAGEAL REFLUX DISEASE WITHOUT 09/23/2017 ORTEGA PIERRE MD, Ot M81.0 AGE-RELATED OSTEOPOROSIS W/O CURRENT PAT 09/23/2017 ORTEGA PIERRE MD Ot N17.9 ACUTE KIDNEY FAILURE, UNSPECIFIED 09/23/2017 ORTEGA PIERRE MD, Ot N18.9 CHRONIC KIDNEY DISEASE, UNSPECIFIED 09/23/2017 ORTEGA PIERRE MD Ot 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 09/23/2017 ORTEGA PIERRE MD Ot Z79.899 OTHER HALF-WAY (CURRENT) DRUG THERAPY 09/23/2017 ORTEGA PIERRE MD Ot Z86.718 PERSONAL HISTORY OF OTHER VENOUS THROMBO 09/23/2017 ORTEGA PIERRE MD Ot Z87.891 PERSONAL HISTORY OF NICOTINE DEPENDENCE 09/23/2017 ORTEGA PIERRE MD Ot Z92.21 PERSONAL HISTORY OF ANTINEOPLASTIC CHEMO 09/23/2017 ORTEGA PIERRE MD Ot Z92.3 PERSONAL HISTORY OF IRRADIATION 09/23/2017 ORTEGA PIERRE MD Ot B96.20 UNSP ESCHERICHIA COLI THE CAUSE OF DI 09/23/2017 ORTEGA PIERRE MD Ot C50.912 MALIGNANT NEOPLASM OF UNSPECIFIED SITE O 09/23/2017 ORTEGA PIERRE MD Ot 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 09/23/2017 ORTEGA PIERRE MD Ot D70.9 NEUTROPENIA, UNSPECIFIED 09/23/2017 ORTEGA PIERRE MD Ot E03.9 HYPOTHYROIDISM, UNSPECIFIED 09/23/2017 ORTEGA PIERRE MD Ot E78.00 PURE HYPERCHOLESTEROLEMIA, UNSPECIFIED 09/23/2017 ORTEGA PIERRE MD Ot E86.0 DEHYDRATION 09/23/2017 ORTEGA PIERRE MD Ot E87.0 HYPEROSMOLALITY AND HYPERNATREMIA 09/23/2017 ORTEGA PIERRE MD Ot E87.2 ACIDOSIS 09/23/2017 ORTEGA PIERRE MD Ot E87.70 FLUID OVERLOAD, UNSPECIFIED 09/23/2017 ORTEGA PIERRE MD Ot E87.8 OTH DISORDERS OF ELECTROLYTE AND FLUID B 09/23/2017 ORTEGA PIERRE MD Ot 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 09/23/2017 ORTEGA PIERRE MD Ot F32.9 MAJOR DEPRESSIVE DISORDER, SINGLE EPISOD 09/23/2017 ORTEGA PIERRE MD Ot F41.9 ANXIETY DISORDER, UNSPECIFIED 09/23/2017 ORTEGA PIERRE MD Ot J10.08 INFLUENZA DUE TO OTH IDENT INFLUENZA VIR 09/23/2017 ORTEGA PIERRE MD Ot J1 4 PNEUMONIA DUE TO HEMOPHILUS INFLUENZAE 09/23/2017 ORTEGA PIERRE MD Ot J96.00 ACUTE RESPIRATORY FAILURE, UNSP W HYPOXI 09/23/2017 ORTEGA PIERRE MD Ot K21.9 GASTRO-ESOPHAGEAL REFLUX DISEASE WITHOUT 09/23/2017 ORTEGA PIERRE MD Ot M81.0 AGE-RELATED OSTEOPOROSIS W/O CURRENT PAT 09/23/2017 ORTEGA PIERRE MD Ot N17.9 ACUTE KIDNEY FAILURE, UNSPECIFIED 09/23/2017 ORTEGA PIERRE MD, Ot N18.9 CHRONIC KIDNEY DISEASE, UNSPECIFIED 09/23/2017 ORTEGA PIERRE MD Ot N39.0 URINARY TRACT INFECTION, SITE NOT SPECIF 09/23/2017 ORTEGA PIERRE MD Ot R41.0 DISORIENTATION, UNSPECIFIED 09/23/2017 ORTEGA PIERRE MD, Ot T17.900A UNSP FB IN RESP TRACT, PART UNSP CAUSING 09/23/2017 ORTEGA PIERRE MD Ot Z79.01 HALF-WAY (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 OF ANTICOAGULANT 09/23/2017 ORTEGA PIERRE MD Ot Z86.718 PERSONAL HISTORY OF OTHER VENOUS THROMBO 09/23/2017 ORTEGA PIERRE MD Ot Z87.891 PERSONAL HISTORY OF NICOTINE DEPENDENCE 09/23/2017 ORTEGA PIERRE MD Ot Z92.21 PERSONAL HISTORY OF ANTINEOPLASTIC CHEMO 09/23/2017 ORTEGA PIERRE MD Ot Z92.3 PERSONAL HISTORY OF IRRADIATION 09/23/2017 ORTEGA PIERRE MD Ot Z94.81 BONE MARROW TRANSPLANT STATUS 09/24/2017 ORTEGA PIERRE MD Ot C50.912 MALIGNANT NEOPLASM OF UNSPECIFIED SITE O 09/24/2017 ORTEGA PIERRE MD Ot 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 09/24/2017 ORTEGA PIERRE MD Ot D70.9 NEUTROPENIA, UNSPECIFIED 09/24/2017 ORTEGA PIERRE MD Ot E03.9 HYPOTHYROIDISM, UNSPECIFIED 09/24/2017 ORTEGA PIERRE MD Ot E78.00 PURE HYPERCHOLESTEROLEMIA, UNSPECIFIED 09/24/2017 ORTEGA PIERRE MD Ot 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 09/24/2017 ORTEGA PIERRE MD Ot F32.9 MAJOR DEPRESSIVE DISORDER, SINGLE EPISOD 09/24/2017 ORTEGA PIERRE MD Ot F41.9 ANXIETY DISORDER, UNSPECIFIED 09/24/2017 ORTEGA PIERRE MD Ot J10.08 INFLUENZA DUE TO OTH IDENT INFLUENZA VIR 09/24/2017 ORTEGA PIERRE MD Ot J1 4 PNEUMONIA DUE TO HEMOPHILUS INFLUENZAE 09/24/2017 ORTEGA PIERRE MD Ot K21.9 GASTRO-ESOPHAGEAL REFLUX DISEASE WITHOUT 09/24/2017 ORTEGA PIERRE MD Ot M81.0 AGE-RELATED OSTEOPOROSIS W/O CURRENT PAT 09/24/2017 ORTEGA PIERRE MD Ot N18.9 CHRONIC KIDNEY DISEASE, UNSPECIFIED 09/24/2017 ORTEGA PIERRE MD Ot N39.0 URINARY TRACT INFECTION, SITE NOT SPECIF 09/24/2017 ORTEGA PIERRE MD Ot 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 09/24/2017 ORTEGA PIERRE MD Ot Z86.718 PERSONAL HISTORY OF OTHER VENOUS THROMBO 09/24/2017 ORTEGA PIERRE MD Ot Z87.891 PERSONAL HISTORY OF NICOTINE DEPENDENCE 09/24/2017 ORTEGA PIERRE MD Ot Z92.21 PERSONAL HISTORY OF ANTINEOPLASTIC CHEMO 09/24/2017 ORTEGA PIERRE MD Ot Z92.3 PERSONAL HISTORY OF IRRADIATION 09/24/2017 ORTEGA PIERRE MD Ot Z94.81 BONE MARROW TRANSPLANT STATUS 09/24/2017 ORTEGA PIERRE MD Ot C50.912 MALIGNANT NEOPLASM OF UNSPECIFIED SITE O 09/24/2017 ORTEGA PIERRE MD Ot 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 09/24/2017 ORTEGA PIERRE MD Ot D70.9 NEUTROPENIA, UNSPECIFIED 09/24/2017 ORTEGA PIERRE MD Ot E03.9 HYPOTHYROIDISM, UNSPECIFIED 09/24/2017 ORTEGA PIERRE MD Ot E78.00 PURE HYPERCHOLESTEROLEMIA, UNSPECIFIED 09/24/2017 ORTEGA PIERRE MD Ot 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 09/24/2017 ORTEGA PIERRE MD Ot F32.9 MAJOR DEPRESSIVE DISORDER, SINGLE EPISOD 09/24/2017 ORTEGA PIERRE MD Ot F41.9 ANXIETY DISORDER, UNSPECIFIED 09/24/2017 ORTEGA PIERRE MD Ot J10.08 INFLUENZA DUE TO OTH IDENT INFLUENZA VIR 09/24/2017 ORTEGA PIERRE MD Ot J1 4 PNEUMONIA DUE TO HEMOPHILUS INFLUENZAE 09/24/2017 ORTEGA PIERRE MD Ot K21.9 GASTRO-ESOPHAGEAL REFLUX DISEASE WITHOUT 09/24/2017 ORTEGA PIERRE MD Ot M81.0 AGE-RELATED OSTEOPOROSIS W/O CURRENT PAT 09/24/2017 ORTEGA PIERRE MD Ot N18.9 CHRONIC KIDNEY DISEASE, UNSPECIFIED 09/24/2017 ORTEGA PIERRE MD Ot N39.0 URINARY TRACT INFECTION, SITE NOT SPECIF 09/24/2017 ORTEGA PIERRE MD Ot Z79.01 HALF-WAY (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 OF ANTICOAGULANT 09/24/2017 ORTEGA PIERRE MD Ot Z86.718 PERSONAL HISTORY OF OTHER VENOUS THROMBO 09/24/2017 ORTEGA PIERRE MD Ot Z87.891 PERSONAL HISTORY OF NICOTINE DEPENDENCE 09/24/2017 ORTEGA PIERRE MD Ot Z92.21 PERSONAL HISTORY OF ANTINEOPLASTIC CHEMO 09/24/2017 ORTEGA PIERRE MD Ot Z92.3 PERSONAL HISTORY OF IRRADIATION 09/24/2017 ORTEGA PIERRE MD Ot Z94.81 BONE MARROW TRANSPLANT STATUS 09/25/2017 ORTEGA PIERRE MD, Ot C50.912 MALIGNANT NEOPLASM OF UNSPECIFIED SITE O 09/25/2017 ORTEGA PIERRE MD Ot 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 09/25/2017 ORTEGA PIERRE MD Ot D70.9 NEUTROPENIA, UNSPECIFIED 09/25/2017 ORTEGA PIERRE MD Ot E03.9 HYPOTHYROIDISM, UNSPECIFIED 09/25/2017 ORTEGA PIERRE MD Ot E78.00 PURE HYPERCHOLESTEROLEMIA, UNSPECIFIED 09/25/2017 ORTEGA PIERRE MD Ot 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 09/25/2017 ORTEGA PIERRE MD Ot F32.9 MAJOR DEPRESSIVE DISORDER, SINGLE EPISOD 09/25/2017 ORTEGA PIERRE MD Ot F41.9 ANXIETY DISORDER, UNSPECIFIED 09/25/2017 ORTEGA PIERRE MD Ot J10.08 INFLUENZA DUE TO OTH IDENT INFLUENZA VIR 09/25/2017 ORTEGA PIERRE MD Ot J1 4 PNEUMONIA DUE TO HEMOPHILUS INFLUENZAE 09/25/2017 ORTEGA PIERRE MD Ot K21.9 GASTRO-ESOPHAGEAL REFLUX DISEASE WITHOUT 09/25/2017 ORTEGA PIERRE MD Ot M81.0 AGE-RELATED OSTEOPOROSIS W/O CURRENT PAT 09/25/2017 ORTEGA PIERRE MD Ot N18.9 CHRONIC KIDNEY DISEASE, UNSPECIFIED 09/25/2017 ORTEGA PIERRE MD Ot N39.0 URINARY TRACT INFECTION, SITE NOT SPECIF 09/25/2017 OTREGA PIERRE MD Ot Z79.01 HALF-WAY (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 OF ANTICOAGULANT 09/25/2017 ORTEGA PIERRE MD Ot Z86.718 PERSONAL HISTORY OF OTHER VENOUS THROMBO 09/25/2017 ORTEGA PIERRE MD Ot Z87.891 PERSONAL HISTORY OF NICOTINE DEPENDENCE 09/25/2017 ORTEGA PIERRE MD Ot Z92.21 PERSONAL HISTORY OF ANTINEOPLASTIC CHEMO 09/25/2017 ORTEGA PIERRE MD Ot Z92.3 PERSONAL HISTORY OF IRRADIATION 09/25/2017 ORTEGA PIERRE MD Ot Z94.81 BONE MARROW TRANSPLANT STATUS 09/25/2017 ORTEGA PIERRE MD Ot C50.912 MALIGNANT NEOPLASM OF UNSPECIFIED SITE O 09/25/2017 ORTEGA PIERRE MD Ot 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 09/25/2017 ORTEGA PIERRE MD Ot D70.9 NEUTROPENIA, UNSPECIFIED 09/25/2017 ORTEGA PIERRE MD Ot E03.9 HYPOTHYROIDISM, UNSPECIFIED 09/25/2017 ORTEGA PIERRE MD Ot E78.00 PURE HYPERCHOLESTEROLEMIA, UNSPECIFIED 09/25/2017 ORTEGA PIERRE MD Ot 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 09/25/2017 ORTEGA PIERRE MD Ot F32.9 MAJOR DEPRESSIVE DISORDER, SINGLE EPISOD 09/25/2017 ORTEGA PIERRE MD Ot F41.9 ANXIETY DISORDER, UNSPECIFIED 09/25/2017 ORTEGA PIERER MD Ot J10.08 INFLUENZA DUE TO OTH IDENT INFLUENZA VIR 09/25/2017 ORTEGA PIERRE MD Ot J1 4 PNEUMONIA DUE TO HEMOPHILUS INFLUENZAE 09/25/2017 ORTEGA PIERRE MD Ot K21.9 GASTRO-ESOPHAGEAL REFLUX DISEASE WITHOUT 09/25/2017 ORTEGA PIERRE MD Ot M81.0 AGE-RELATED OSTEOPOROSIS W/O CURRENT PAT 09/25/2017 ORTEGA PIERRE MD, Ot N18.9 CHRONIC KIDNEY DISEASE, UNSPECIFIED 09/25/2017 ORTEGA PIERRE MD Ot N39.0 URINARY TRACT INFECTION, SITE NOT SPECIF 09/25/2017 ORTEGA PIERRE MD Ot Z79.01 HALF-WAY (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 OF ANTICOAGULANT 09/25/2017 ORTEGA PIERRE MD Ot Z86.718 PERSONAL HISTORY OF OTHER VENOUS THROMBO 09/25/2017 ORTEGA PIERRE MD Ot Z87.891 PERSONAL HISTORY OF NICOTINE DEPENDENCE 09/25/2017 ORTEGA PIERRE MD Ot Z92.21 PERSONAL HISTORY OF ANTINEOPLASTIC CHEMO 09/25/2017 ORTEGA PIERRE MD Ot Z92.3 PERSONAL HISTORY OF IRRADIATION 09/25/2017 ORTEGA PIERRE MD Ot Z94.81 BONE MARROW TRANSPLANT STATUS 09/25/2017 ORTEGA PIERRE MD Ot C50.912 MALIGNANT NEOPLASM OF UNSPECIFIED SITE O 09/25/2017 ORTEGA PIERRE MD Ot 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 09/25/2017 ORTEGA PIERRE MD Ot D70.9 NEUTROPENIA, UNSPECIFIED 09/25/2017 ORTEGA PIERRE MD Ot E03.9 HYPOTHYROIDISM, UNSPECIFIED 09/25/2017 ORTEGA PIERRE MD Ot E78.00 PURE HYPERCHOLESTEROLEMIA, UNSPECIFIED 09/25/2017 ORTEGA PIERRE MD, Ot 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 09/25/2017 ORTEGA PIERRE MD Ot F32.9 MAJOR DEPRESSIVE DISORDER, SINGLE EPISOD 09/25/2017 ORTEGA PIERRE MD Ot F41.9 ANXIETY DISORDER, UNSPECIFIED 09/25/2017 ORTEGA PIERRE MD Ot J10.08 INFLUENZA DUE TO OTH IDENT INFLUENZA VIR 09/25/2017 ORTEGA PIERRE MD Ot J1 4 PNEUMONIA DUE TO HEMOPHILUS INFLUENZAE 09/25/2017 ORTEGA PIERRE MD Ot K21.9 GASTRO-ESOPHAGEAL REFLUX DISEASE WITHOUT 09/25/2017 ORTEGA PIERRE MD Ot M81.0 AGE-RELATED OSTEOPOROSIS W/O CURRENT PAT 09/25/2017 ORTEGA PIERRE MD, Ot N18.9 CHRONIC KIDNEY DISEASE, UNSPECIFIED 09/25/2017 ORTEGA PIERRE MD Ot N39.0 URINARY TRACT INFECTION, SITE NOT SPECIF 09/25/2017 ORTEGA PIERRE MD Ot 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 09/25/2017 ORTEGA PIERRE MD Ot Z86.718 PERSONAL HISTORY OF OTHER VENOUS THROMBO 09/25/2017 ORTEGA PIERRE MD Ot Z87.891 PERSONAL HISTORY OF NICOTINE DEPENDENCE 09/25/2017 ORTEGA PIERRE MD Ot Z92.21 PERSONAL HISTORY OF ANTINEOPLASTIC CHEMO 09/25/2017 ORTEGA PIERRE MD Ot Z92.3 PERSONAL HISTORY OF IRRADIATION 09/25/2017 ORTEGA PIERRE MD Ot Z94.81 BONE MARROW TRANSPLANT STATUS 09/26/2017 ORTEGA PIERRE MD Ot C50.912 MALIGNANT NEOPLASM OF UNSPECIFIED SITE O 09/26/2017 ORTEGA PIERRE MD Ot 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 09/26/2017 ORTEGA PIERRE MD Ot D70.9 NEUTROPENIA, UNSPECIFIED 09/26/2017 ORTEGA PIERRE MD Ot E03.9 HYPOTHYROIDISM, UNSPECIFIED 09/26/2017 ORTEGA PIERRE MD Ot E78.00 PURE HYPERCHOLESTEROLEMIA, UNSPECIFIED 09/26/2017 ORTEGA PIERRE MD Ot 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 09/26/2017 ORTEGA PIERRE MD Ot F32.9 MAJOR DEPRESSIVE DISORDER, SINGLE EPISOD 09/26/2017 ORTEGA PIERRE MD Ot F41.9 ANXIETY DISORDER, UNSPECIFIED 09/26/2017 ORTEGA PIERRE MD Ot J10.08 INFLUENZA DUE TO OTH IDENT INFLUENZA VIR 09/26/2017 ORTEGA PIERRE MD Ot J1 4 PNEUMONIA DUE TO HEMOPHILUS INFLUENZAE 09/26/2017 ORTEGA PIERRE MD Ot K21.9 GASTRO-ESOPHAGEAL REFLUX DISEASE WITHOUT 09/26/2017 ORTEGA PIERRE MD Ot M81.0 AGE-RELATED OSTEOPOROSIS W/O CURRENT PAT 09/26/2017 ORTEGA PIERRE MD, Ot N18.9 CHRONIC KIDNEY DISEASE, UNSPECIFIED 09/26/2017 ORTEGA PIERRE MD, Ot N39.0 URINARY TRACT INFECTION, SITE NOT SPECIF 09/26/2017 ORTEGA PIERRE MD Ot Z79.01 HALF-WAY (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 OF ANTICOAGULANT 09/26/2017 ORTEGA PIERRE MD Ot Z86.718 PERSONAL HISTORY OF OTHER VENOUS THROMBO 09/26/2017 ORTEGA PIERRE MD Ot Z87.891 PERSONAL HISTORY OF NICOTINE DEPENDENCE 09/26/2017 ORTEGA PIERRE MD Ot Z92.21 PERSONAL HISTORY OF ANTINEOPLASTIC CHEMO 09/26/2017 ORTEGA PIERRE MD Ot Z92.3 PERSONAL HISTORY OF IRRADIATION 09/26/2017 ORTEGA PIERRE MD Ot Z94.81 BONE MARROW TRANSPLANT STATUS 09/27/2017 ORTEGA PIERRE MD Ot C50.912 MALIGNANT NEOPLASM OF UNSPECIFIED SITE O 09/27/2017 ORTEGA PIERRE MD Ot 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 09/27/2017 ORTEGA PIERRE MD Ot D70.9 NEUTROPENIA, UNSPECIFIED 09/27/2017 ORTEGA PIERRE MD Ot E03.9 HYPOTHYROIDISM, UNSPECIFIED 09/27/2017 ORTEGA PIERRE MD Ot E78.00 PURE HYPERCHOLESTEROLEMIA, UNSPECIFIED 09/27/2017 ORTEGA PIERRE MD Ot 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 09/27/2017 ORTEGA PIERRE MD Ot F32.9 MAJOR DEPRESSIVE DISORDER, SINGLE EPISOD 09/27/2017 ORTEGA PIERRE MD, Ot F41.9 ANXIETY DISORDER, UNSPECIFIED 09/27/2017 ORTEGA PIERRE MD, Ot J10.08 INFLUENZA DUE TO OTH IDENT INFLUENZA VIR 09/27/2017 ORTEGA PIERRE MD Ot J1 4 PNEUMONIA DUE TO HEMOPHILUS INFLUENZAE 09/27/2017 ORTEGA PIERRE MD, Ot K21.9 GASTRO-ESOPHAGEAL REFLUX DISEASE WITHOUT 09/27/2017 ORTEGA PIERRE MD Ot M81.0 AGE-RELATED OSTEOPOROSIS W/O CURRENT PAT 09/27/2017 ORTEGA PIERRE MD, Ot N18.9 CHRONIC KIDNEY DISEASE, UNSPECIFIED 09/27/2017 ORTEGA PIERRE MD Ot N39.0 URINARY TRACT INFECTION, SITE NOT SPECIF 09/27/2017 ORTEGA PIERRE MD, Ot Z79.01 HALF-WAY (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 OF ANTICOAGULANT 09/27/2017 ORTEGA PIERRE MD Ot Z86.718 PERSONAL HISTORY OF OTHER VENOUS THROMBO 09/27/2017 ORTEGA PIERRE MD Ot Z87.891 PERSONAL HISTORY OF NICOTINE DEPENDENCE 09/27/2017 ORTEGA PIERRE MD Ot Z92.21 PERSONAL HISTORY OF ANTINEOPLASTIC CHEMO 09/27/2017 ORTEGA PIERRE MD Ot Z92.3 PERSONAL HISTORY OF IRRADIATION 09/27/2017 ORTEGA PIERRE MD Ot Z94.81 BONE MARROW TRANSPLANT STATUS 09/28/2017 ORTEGA PIERRE MD Ot C50.912 MALIGNANT NEOPLASM OF UNSPECIFIED SITE O 09/28/2017 ORTEGA PIERRE MD Ot 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 09/28/2017 ORTEGA PIERRE MD Ot D70.9 NEUTROPENIA, UNSPECIFIED 09/28/2017 ORTEGA PIERRE MD Ot E03.9 HYPOTHYROIDISM, UNSPECIFIED 09/28/2017 ORTEGA PIERRE MD Ot E78.00 PURE HYPERCHOLESTEROLEMIA, UNSPECIFIED 09/28/2017 ORTEGA PIERRE MD Ot 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 09/28/2017 ORTEGA PIERRE MD Ot F32.9 MAJOR DEPRESSIVE DISORDER, SINGLE EPISOD 09/28/2017 ORTEGA PIERRE MD Ot F41.9 ANXIETY DISORDER, UNSPECIFIED 09/28/2017 ORTEGA PIERRE MD Ot J10.08 INFLUENZA DUE TO OTH IDENT INFLUENZA VIR 09/28/2017 ORTEGA PIERRE MD, Ot J1 4 PNEUMONIA DUE TO HEMOPHILUS INFLUENZAE 09/28/2017 ORTEGA PIERRE MD Ot K21.9 GASTRO-ESOPHAGEAL REFLUX DISEASE WITHOUT 09/28/2017 ORTEGA PIERRE MD Ot M81.0 AGE-RELATED OSTEOPOROSIS W/O CURRENT PAT 09/28/2017 ORTEGA PIERRE MD Ot N18.9 CHRONIC KIDNEY DISEASE, UNSPECIFIED 09/28/2017 ORTEGA PIERRE MD Ot N39.0 URINARY TRACT INFECTION, SITE NOT SPECIF 09/28/2017 ORTEGA PIERRE MD Ot 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 09/28/2017 ORTEGA PIERRE MD Ot Z86.718 PERSONAL HISTORY OF OTHER VENOUS THROMBO 09/28/2017 ORTEGA PIERRE MD Ot Z87.891 PERSONAL HISTORY OF NICOTINE DEPENDENCE 09/28/2017 ORTEGA PIERRE MD Ot Z92.21 PERSONAL HISTORY OF ANTINEOPLASTIC CHEMO 09/28/2017 ORTEGA PIERRE MD Ot Z92.3 PERSONAL HISTORY OF IRRADIATION 09/28/2017 ORTEGA PIERRE MD Ot Z94.81 BONE MARROW TRANSPLANT STATUS 09/29/2017 ORTEGA PIERRE MD Ot C50.912 MALIGNANT NEOPLASM OF UNSPECIFIED SITE O 09/29/2017 ORTEGA PIERRE MD Ot 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 09/29/2017 ORTEGA PIERRE MD Ot D70.9 NEUTROPENIA, UNSPECIFIED 09/29/2017 ORTEGA PIERRE MD Ot E03.9 HYPOTHYROIDISM, UNSPECIFIED 09/29/2017 ORTEGA PIERRE MD Ot E78.00 PURE HYPERCHOLESTEROLEMIA, UNSPECIFIED 09/29/2017 ORTEGA PIERRE MD Ot 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 09/29/2017 ORTEGA PIERRE MD Ot F32.9 MAJOR DEPRESSIVE DISORDER, SINGLE EPISOD 09/29/2017 ORTEGA PIERRE MD Ot F41.9 ANXIETY DISORDER, UNSPECIFIED 09/29/2017 ORTEGA PIERRE MD Ot J10.08 INFLUENZA DUE TO OTH IDENT INFLUENZA VIR 09/29/2017 ORTEGA PIERRE MD Ot J1 4 PNEUMONIA DUE TO HEMOPHILUS INFLUENZAE 09/29/2017 ORTEGA PIERRE MD Ot K21.9 GASTRO-ESOPHAGEAL REFLUX DISEASE WITHOUT 09/29/2017 ORTEGA PIERRE MD Ot M81.0 AGE-RELATED OSTEOPOROSIS W/O CURRENT PAT 09/29/2017 ORTEGA PIERRE MD, Ot N18.9 CHRONIC KIDNEY DISEASE, UNSPECIFIED 09/29/2017 ORTEGA PIERRE MD Ot N39.0 URINARY TRACT INFECTION, SITE NOT SPECIF 09/29/2017 ORTEGA PIERRE MD Ot Z79.01 HALF-WAY (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 OF ANTICOAGULANT 09/29/2017 ORTEGA PIERRE MD Ot Z86.718 PERSONAL HISTORY OF OTHER VENOUS THROMBO 09/29/2017 ORTEGA PIERRE MD Ot Z87.891 PERSONAL HISTORY OF NICOTINE DEPENDENCE 09/29/2017 ORTEGA PIERRE MD Ot Z92.21 PERSONAL HISTORY OF ANTINEOPLASTIC CHEMO 09/29/2017 ORTEGA PIERRE MD Ot Z92.3 PERSONAL HISTORY OF IRRADIATION 09/29/2017 ORTEGA PIERRE MD Ot Z94.81 BONE MARROW TRANSPLANT STATUS 09/29/2017 ORTEGA PIERRE MD Ot B37.1 PULMONARY CANDIDIASIS 09/29/2017 ORTEGA PIERRE MD Ot C50.912 MALIGNANT NEOPLASM OF UNSPECIFIED SITE O 09/29/2017 ORTEGA PIERRE MD Ot 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 09/29/2017 ORTEGA PIERRE MD Ot D70.9 NEUTROPENIA, UNSPECIFIED 09/29/2017 ORTEGA PIERRE MD Ot E03.9 HYPOTHYROIDISM, UNSPECIFIED 09/29/2017 ORTEGA PIERRE MD Ot E78.00 PURE HYPERCHOLESTEROLEMIA, UNSPECIFIED 09/29/2017 ORTEGA PIERRE MD Ot 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 09/29/2017 ORTEGA PIERRE MD Ot F32.9 MAJOR DEPRESSIVE DISORDER, SINGLE EPISOD 09/29/2017 ORTEGA PIERRE MD Ot F41.9 ANXIETY DISORDER, UNSPECIFIED 09/29/2017 ORTEGA PIERRE MD Ot J1 4 PNEUMONIA DUE TO HEMOPHILUS INFLUENZAE 09/29/2017 ORTEGA PIERRE MD Ot J98.11 ATELECTASIS 09/29/2017 ORTEGA PIERRE MD Ot K21.9 GASTRO-ESOPHAGEAL REFLUX DISEASE WITHOUT 09/29/2017 ORTEGA PIERRE MD Ot M81.0 AGE-RELATED OSTEOPOROSIS W/O CURRENT PAT 09/29/2017 ORTEGA PIERRE MD Ot N18.9 CHRONIC KIDNEY DISEASE, UNSPECIFIED 09/29/2017 ORTEGA PIERRE MD Ot R19.7 DIARRHEA, UNSPECIFIED 09/29/2017 ORTEGA PIERRE MD Ot R74.8 ABNORMAL LEVELS OF OTHER SERUM ENZYMES 09/29/2017 ORTEGA PIERRE MD Ot Z79.01 HALF-WAY (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 OF ANTICOAGULANT 09/29/2017 ORTEGA PIERRE MD Ot Z86.718 PERSONAL HISTORY OF OTHER VENOUS THROMBO 09/29/2017 ORTEGA PIERRE MD Ot Z87.891 PERSONAL HISTORY OF NICOTINE DEPENDENCE 09/29/2017 ORTEGA PIERRE MD Ot Z92.21 PERSONAL HISTORY OF ANTINEOPLASTIC CHEMO 09/29/2017 ORTEGA PIERRE MD Ot Z92.3 PERSONAL HISTORY OF IRRADIATION 09/29/2017 ORTEGA PIERRE MD Ot Z94.81 BONE MARROW TRANSPLANT STATUS 12/09/2017 MARGE SPRINGER Ot C50.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 12/09/2017 MARGE SPRINGER Ot 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 12/09/2017 MARGE SPRINGER Ot M85.80 OT DISRD OF BONE DENSITY AND STRUCTURE, 12/09/2017 MARGE SPRINGER Ot Z45.2 ENCOUNTER FOR ADJUSTMENT AND MANAGEMENT 12/09/2017 MARGE SPRINGER Ot Z79.811 HALF-WAY (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 OF AROMATASE INH 12/09/2017 MARGE SPRINGER Ot Z79.899 OTHER HALF-WAY (CURRENT) DRUG THERAPY 12/09/2017 MARGE SPRINGER Ot Z92.21 PERSONAL HISTORY OF ANTINEOPLASTIC CHEMO 12/09/2017 MARGE SPRINGER Ot Z92.3 PERSONAL HISTORY OF IRRADIATION 01/28/2018 Ot 174.9 TEA GN NEOPL BREAST NOS 01/28/2018 Ot 244.9 HYPO THYROIDISM NOS 01/28/2018 Ot 401.9 HYPE RTENSION NOS 01/28/2018 Ot 733.90 BON E CARTILAGE DIS NOS 01/28/2018 Ot V58.69 OT MED,LT,CURRENT USE 01/28/2018 Ot 733.90 BON E CARTILAGE DIS NOS 01/28/2018 ORTEGA PIERRE MD Ot 244.9 HYPOTHYROIDISM NOS 01/28/2018 ORTEGA PIERRE MD Ot 272.4 HYPERLIPIDEMIA NEC/NOS 01/28/2018 ORTEGA PIERRE MD Ot V58.69 OTH MED,LT,CURRENT USE 01/28/2018 JUAN RAMON TITA S SALES PERFORMANCE ANALYST Ot 174.9 MALIGN NEOPL BREAST NOS 01/28/2018 JUAN RAMON HILAH S SALES PERFORMANCE ANALYST Ot 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, 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 01/28/2018 TITA DELATORRE S SALES PERFORMANCE ANALYST Ot 465.9 ACUTE URI NOS 01/28/2018 LIZZIE DELATORREAH S SALES PERFORMANCE ANALYST Ot 585.3 CHRONIC KIDNEY DISEASE, STAGE III (MODER 01/28/2018 TITA DELATORRE S SALES PERFORMANCE ANALYST Ot 733.90 BONE CARTILAGE DIS NOS 01/28/2018 TITA DELATORRE S SALES PERFORMANCE ANALYST Ot V15.3 HX OF IRRADIATION 01/28/2018 TITA DELATORRE S SALES PERFORMANCE ANALYST Ot V58.69 OTH MED,LT,CURRENT USE 01/28/2018 LIZZIE DELATORREAH S SALES PERFORMANCE ANALYST Ot V86.0 ESTROGEN RECEPTOR POSITIVE STATUS [ER+] 01/28/2018 LIZZIE DELATORREAH S SALES PERFORMANCE ANALYST Ot 174.9 MALIGN NEOPL BREAST NOS 01/28/2018 LIZZIE DELATORREAH S SALES PERFORMANCE ANALYST Ot 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, 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 01/28/2018 TITA DELATORRE S SALES PERFORMANCE ANALYST Ot 285.21 ANEMIA IN CHRONIC KIDNEY DISEASE 01/28/2018 LIZZIE DELATORREAH S SALES PERFORMANCE ANALYST Ot 287.49 OTHER SECONDARY THROMBOCYTOPENIA 01/28/2018 LIZZIE DELATORREAH S SALES PERFORMANCE ANALYST Ot 288.50 LEUKOCYTOPENIA, UNSPECIFIED 01/28/2018 TITA DELATORRE S SALES PERFORMANCE ANALYST Ot 585.3 CHRONIC KIDNEY DISEASE, STAGE III (MODER 01/28/2018 TITA DELATORRE S SALES PERFORMANCE ANALYST Ot V58.69 OTH MED,LT,CURRENT USE 01/28/2018 LIZZIE DELATORREAH S SALES PERFORMANCE ANALYST Ot V58.81 FIT/ADJ VASCULAR CATHETER 01/28/2018 JUAN RAMON HILAH S SALES PERFORMANCE ANALYST Ot V86.0 ESTROGEN RECEPTOR POSITIVE STATUS [ER+] 01/28/2018 LIZZIE DELATORREAH S SALES PERFORMANCE ANALYST Ot V87.41 PERSONAL HISTORY OF ANTINEOPLASTIC CHEMO 01/28/2018 GABBY NEELY, ORTEGA Merchant Ot 244.9 HYPOTHYROIDISM NOS 01/28/2018 ORTEGA PIERRE MD Ot 272.4 HYPERLIPIDEMIA NEC/NOS 01/28/2018 ORTEGA PIERRE MD Ot 285.9 ANEMIA NOS 01/28/2018 GABBY MD, ORTEGA A Ot V58.69 OTH MED,LT,CURRENT USE 01/28/2018 TITA DELATORRE SALES PERFORMANCE ANALYST Ot 174.9 MALIGN NEOPL BREAST NOS 01/28/2018 TITA DELATORRE SALES PERFORMANCE ANALYST Ot 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, 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 01/28/2018 TITA DELATORRE SALES PERFORMANCE ANALYST Ot 733.90 BONE CARTILAGE DIS NOS 01/28/2018 TITA DELATORRE SALES PERFORMANCE ANALYST Ot V15.3 HX OF IRRADIATION 01/28/2018 TITA DELATORREP Ot V58.69 OTH MED,LT,CURRENT USE 01/28/2018 TITA DELATORRE SALES PERFORMANCE ANALYST Ot V86.0 ESTROGEN RECEPTOR POSITIVE STATUS [ER+] 01/28/2018 TITA DELATORRE SALES PERFORMANCE ANALYST Ot V87.41 PERSONAL HISTORY OF ANTINEOPLASTIC CHEMO 01/28/2018 Ot M85.80 OTH DISRD OF BONE DENSITY AND STRUCTURE, 01/28/2018 Ot N95.9 UNSP ECIFIED MENOPAUSAL AND PERIMENOPAUSA 01/28/2018 TITA DELATORRE SALES PERFORMANCE ANALYST Ot C50.912 MALIGNANT NEOPLASM OF UNSPECIFIED SITE O 01/28/2018 TITA DELATORRE SALES PERFORMANCE ANALYST Ot 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 01/28/2018 TITA DELATORRE SALES PERFORMANCE ANALYST Ot M85.80 OTH DISRD OF BONE DENSITY AND STRUCTURE, 01/28/2018 TITA DELATORRE SALES PERFORMANCE ANALYST Ot Z79.811 HALF-WAY (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 OF AROMATASE INH 01/28/2018 TITA DELATORRE SALES PERFORMANCE ANALYST Ot Z79.899 OTHER HALF-WAY (CURRENT) DRUG THERAPY 01/28/2018 TITA DELATORRE SALES PERFORMANCE ANALYST Ot Z92.21 PERSONAL HISTORY OF ANTINEOPLASTIC CHEMO 01/28/2018 TITA DELATORRE SALES PERFORMANCE ANALYST Ot Z92.3 PERSONAL HISTORY OF IRRADIATION 01/28/2018 TITA DELATORRE SALES PERFORMANCE ANALYST Ot C50.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 01/28/2018 TITA DELATORRE SALES PERFORMANCE ANALYST Ot 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 01/28/2018 TITA DELATORRE SALES PERFORMANCE ANALYST Ot M85.80 OTH DISRD OF BONE DENSITY AND STRUCTURE, 01/28/2018 TITA DELATORRE SALES PERFORMANCE ANALYST Ot 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 01/28/2018 DELATORRETITA White SALES PERFORMANCE ANALYST Ot Z79.899 OTHER HAT AND CAP 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 (CURRENT) DRUG THERAPY 01/28/2018 TITA DELATORRE SALES PERFORMANCE ANALYST Ot Z92.21 PERSONAL HISTORY OF ANTINEOPLASTIC CHEMO 01/28/2018 TITA DELATORRE SALES PERFORMANCE ANALYST Ot Z92.3 PERSONAL HISTORY OF IRRADIATION 01/28/2018 TITA DELATORRE SALES PERFORMANCE ANALYST Ot R 05 COUGH 01/28/2018 TITA DELATORRE SALES PERFORMANCE ANALYST Ot R06.02 SHORTNESS OF BREATH 01/28/2018 TITA DELATORRE SALES PERFORMANCE ANALYST Ot R50.9 FEVER, UNSPECIFIED 01/28/2018 GIANMARGE Ot C50.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 01/28/2018 GIANMARGE N Ot 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 01/28/2018 GIANMARGE SPANN N Ot M85.80 OTH DISRD OF BONE DENSITY AND STRUCTURE, 01/28/2018 MARGE SPRINGER Ot Z45.2 ENCOUNTER FOR ADJUSTMENT AND MANAGEMENT 01/28/2018 MARGE SPRINGER N Ot Z79.811 HALF-WAY (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 OF AROMATASE INH 01/28/2018 GIANMARGE SPANN N Ot Z79.899 OTHER HALF-WAY (CURRENT) DRUG THERAPY 01/28/2018 MARGE SPRINGER N Ot Z92.21 PERSONAL HISTORY OF ANTINEOPLASTIC CHEMO 01/28/2018 MARGE SPRINGER N Ot Z92.3 PERSONAL HISTORY OF IRRADIATION 02/08/2018 MARGE SPRINGER Ot C50.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 02/08/2018 GIANMARGE N Ot 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 02/08/2018 GIANMARGE N Ot M85.80 OTH DISRD OF BONE DENSITY AND STRUCTURE, 02/08/2018 MARGE SPRINGER N Ot Z45.2 ENCOUNTER FOR ADJUSTMENT AND MANAGEMENT 02/08/2018 MARGE SPRINGER Ot 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 02/08/2018 MARGE SPRINGER N Ot Z79.899 OTHER HAT AND CAP 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 (CURRENT) DRUG THERAPY 02/08/2018 MARGE SPRINGER N Ot Z92.21 PERSONAL HISTORY OF ANTINEOPLASTIC CHEMO 02/08/2018 MARGE SPRINGER N Ot Z92.3 PERSONAL HISTORY OF IRRADIATION 02/12/2018 MARGE SPRINGER N Ot C50.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 02/12/2018 MARGE SPRINGER N Ot 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 02/12/2018 MARGE SPRINGER N Ot M85.80 OTH DISRD OF BONE DENSITY AND STRUCTURE, 02/12/2018 MARGE SPRINGER N Ot Z45.2 ENCOUNTER FOR ADJUSTMENT AND MANAGEMENT 02/12/2018 MARGE SPRINGER N Ot 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 02/12/2018 GIANMARGE SPANN N Ot Z79.899 OTHER HAT AND CAP 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 (CURRENT) DRUG THERAPY 02/12/2018 MARGE SPRINGER N Ot Z92.21 PERSONAL HISTORY OF ANTINEOPLASTIC CHEMO 02/12/2018 GIANMARGE SPANN N Ot Z92.3 PERSONAL HISTORY OF IRRADIATION 02/13/2018 MARGE SPRINGER N Ot C50.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 02/13/2018 GIANMARGE N Ot 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 02/13/2018 GIANMARGE N Ot M85.80 OTH DISRD OF BONE DENSITY AND STRUCTURE, 02/13/2018 MARGE SPRINGER N Ot Z45.2 ENCOUNTER FOR ADJUSTMENT AND MANAGEMENT 02/13/2018 MARGE SPRINGER N Ot 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 02/13/2018 MARGE SPRINGER N Ot Z79.899 OTHER HALF-WAY (CURRENT) DRUG THERAPY 02/13/2018 MARGE SPRINGER N Ot Z92.21 PERSONAL HISTORY OF ANTINEOPLASTIC CHEMO 02/13/2018 GIANMARGE N Ot Z92.3 PERSONAL HISTORY OF IRRADIATION 02/17/2018 MARGE SPRINGER N Ot C50.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 02/17/2018 GIANMARGE N Ot 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 02/17/2018 MARGE SPRINGER N Ot M85.80 OTH DISRD OF BONE DENSITY AND STRUCTURE, 02/17/2018 MARGE SPRINGER N Ot 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 02/17/2018 GIANMARGE N Ot Z79.899 OTHER HAT AND CAP 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 (CURRENT) DRUG THERAPY 02/17/2018 GIANMARGE SPANN N Ot Z92.21 PERSONAL HISTORY OF ANTINEOPLASTIC CHEMO 02/17/2018 GIANMARGE N Ot Z92.3 PERSONAL HISTORY OF IRRADIATION 03/10/2018 MARGE SPRINGER N Ot C50.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 03/10/2018 GIANMARGE N Ot 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 03/10/2018 GIANMARGE N Ot M85.80 OTH DISRD OF BONE DENSITY AND STRUCTURE, 03/10/2018 GIANMARGE SPANN N Ot 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 03/10/2018 GIANMARGE PSANN N Ot Z79.899 OTHER HAT AND CAP 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 (CURRENT) DRUG THERAPY 03/10/2018 GIANMARGE SPANN N Ot Z92.21 PERSONAL HISTORY OF ANTINEOPLASTIC CHEMO 03/10/2018 GIANMARGE SPANN N Ot Z92.3 PERSONAL HISTORY OF IRRADIATION 03/17/2018 MARGE SPRINGER N Ot C50.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 03/17/2018 GIANMARGE N Ot 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 03/17/2018 GIAN, MARGE N Ot M85.80 OTH DISRD OF BONE DENSITY AND STRUCTURE, 03/17/2018 MARGE SPRINGER N Ot Z79.811 HALF-WAY (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 OF AROMATASE INH 03/17/2018 GIANMARGE SPANN N Ot Z79.899 OTHER HAT AND CAP 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 (CURRENT) DRUG THERAPY 03/17/2018 GIANMARGE N Ot Z92.21 PERSONAL HISTORY OF ANTINEOPLASTIC CHEMO 03/17/2018 GIANMARGE N Ot Z92.3 PERSONAL HISTORY OF IRRADIATION 03/18/2018 MARGE SPRINGER N Ot C50.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 03/18/2018 GIAN BOBMONICA N Ot 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 03/18/2018 GIAN BOBAN N Ot M85.80 OTH DISRD OF BONE DENSITY AND STRUCTURE, 03/18/2018 GIANMARGE N Ot 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 03/18/2018 GIAN, BOBAN N Ot Z79.899 OTHER HAT AND CAP 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 (CURRENT) DRUG THERAPY 03/18/2018 MARGE SPRINGER N Ot Z92.21 PERSONAL HISTORY OF ANTINEOPLASTIC CHEMO 03/18/2018 GIANMARGE SPANN N Ot Z92.3 PERSONAL HISTORY OF IRRADIATION 03/20/2018 MARGE SPRINGER N Ot C50.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 03/20/2018 MARGE SPRINGER N Ot 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80 OTH DISRD OF BONE DENSITY AND STRUCTURE, 04/21/2018 MARGE SPRINGER N Ot Z79.811 HALF-WAY (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 OF AROMATASE INH 04/21/2018 MARGE SPRINGER N Ot Z79.899 OTHER HALF-WAY (CURRENT) DRUG THERAPY 04/21/2018 MARGE SPRINGER N Ot Z92.21 PERSONAL HISTORY OF ANTINEOPLASTIC CHEMO 04/21/2018 MARGE SPRINGER N Ot Z92.3 PERSONAL HISTORY OF IRRADIATION 06/15/2018 MARGE SPRINGER N Ot C50.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 06/15/2018 MARGE SPRINGER N Ot 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 06/15/2018 MARGE SPRINGER N Ot M85.80 OTH DISRD OF BONE DENSITY AND STRUCTURE, 06/15/2018 GIANMARGE SPANN N Ot Z23 ENCOUNTER FOR IMMUNIZATION 06/15/2018 MARGE SPRINGER N Ot Z79.811 HALF-WAY (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 OF AROMATASE INH 06/15/2018 MARGE SPRINGER N Ot Z79.899 OTHER HALF-WAY (CURRENT) DRUG THERAPY 06/15/2018 MARGE SPRINGER N Ot Z92.21 PERSONAL HISTORY OF ANTINEOPLASTIC CHEMO 06/15/2018 GIANMARGE SPANN N Ot Z92.3 PERSONAL HISTORY OF IRRADIATION 07/17/2018 MARGE SPRINGER Ji Ot C50.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 07/17/2018 MARGE SPRINGER N Ot 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 07/17/2018 MARGE SPRINGER N Ot M85.80 OTH DISRD OF BONE DENSITY AND STRUCTURE, 07/17/2018 GIANMARGE SPANN N Ot Z23 ENCOUNTER FOR IMMUNIZATION 07/17/2018 MARGE SPRINGER N Ot 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 07/17/2018 MARGE SPRINGER N Ot Z79.899 OTHER HALF-WAY (CURRENT) DRUG THERAPY 07/17/2018 MARGE SPRINGER N Ot Z92.21 PERSONAL HISTORY OF ANTINEOPLASTIC CHEMO 07/17/2018 MARGE SPRINGER N Ot Z92.3 PERSONAL HISTORY OF IRRADIATION 07/27/2018 MARGE SPRINGER N Ot C50.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 07/27/2018 MARGE SPRINGER N Ot 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 07/27/2018 GIANMARGE SPANN N Ot M85.80 OTH DISRD OF BONE DENSITY AND STRUCTURE, 07/27/2018 MARGE SPRINGER N Ot Z23 ENCOUNTER FOR IMMUNIZATION 07/27/2018 MARGE SPRINGER N Ot Z79.811 HALF-WAY (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 OF AROMATASE INH 07/27/2018 MARGE SPRINGER N Ot Z79.899 OTHER HAT AND CAP 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 (CURRENT) DRUG THERAPY 07/27/2018 MARGE SPRINGER N Ot Z92.21 PERSONAL HISTORY OF ANTINEOPLASTIC CHEMO 07/27/2018 GIANMARGE SPANN N Ot Z92.3 PERSONAL HISTORY OF IRRADIATION 07/31/2018 MARGE SPRINGER N Ot C50.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 07/31/2018 GIANMARGE SPANN N Ot 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 07/31/2018 GIAN NOEMÍMONICA N Ot M85.80 OTH DISRD OF BONE DENSITY AND STRUCTURE, 07/31/2018 MARGE SPRINGER Ot Z23 ENCOUNTER FOR IMMUNIZATION 07/31/2018 MARGE SPRINGER Ot 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 07/31/2018 MARGE SPRINGER Ot Z79.899 OTHER HALF-WAY (CURRENT) DRUG THERAPY 07/31/2018 MARGE SPRINGER Ot Z92.21 PERSONAL HISTORY OF ANTINEOPLASTIC CHEMO 07/31/2018 MARGE SPRINGER Ji Ot Z92.3 PERSONAL HISTORY OF IRRADIATION 09/11/2018 MARGE SPRINGER Ot C50.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 09/11/2018 MARGE SPRINGER Ot 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 09/11/2018 GIANMARGE SPANN Ot M85.80 OTH DISRD OF BONE DENSITY AND STRUCTURE, 09/11/2018 MARGE SPRINGER Ot Z79.811 HALF-WAY (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 OF AROMATASE INH 09/11/2018 MARGE SPRINGER Ot Z79.899 OTHER HALF-WAY (CURRENT) DRUG THERAPY 09/11/2018 MARGE SPRINGER Ot Z92.21 PERSONAL HISTORY OF ANTINEOPLASTIC CHEMO 09/11/2018 MARGE SPRINGER Ot Z92.3 PERSONAL HISTORY OF IRRADIATION 12/09/2018 SARAH BARDALES MD, Ot C50.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 12/09/2018 SARAH BARDALES MD, Ot 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 12/09/2018 SARAH BARDALES MD, Ot M85.80 OTH DISRD OF BONE DENSITY AND STRUCTURE, 12/09/2018 SARAH BARDALES MD, Ot 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 12/09/2018 SARAH BARDALES MD, Ot Z79.899 OTHER HALF-WAY (CURRENT) DRUG THERAPY 12/09/2018 SARAH BARDALES MD, Ot Z92.21 PERSONAL HISTORY OF ANTINEOPLASTIC CHEMO 12/09/2018 SARAH BARDALES MD, Ot Z92.3 PERSONAL HISTORY OF IRRADIATION 02/03/2019 SARAH BARDALES MD, Ot C50.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 02/03/2019 SARAH BARDALES MD, Ot 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 02/03/2019 SARAH BARDALES MD, Ot M85.80 OTH DISRD OF BONE DENSITY AND STRUCTURE, 02/03/2019 SARAH BARDALES MD, Ot 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 02/03/2019 SARAH BARDALES MD, Ot Z79.899 OTHER HAT AND CAP 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 (CURRENT) DRUG THERAPY 02/03/2019 SARAH BARDALES MD, Ot Z92.21 PERSONAL HISTORY OF ANTINEOPLASTIC CHEMO 02/03/2019 SARAH BARDALES MD, Ot Z92.3 PERSONAL HISTORY OF IRRADIATION 02/04/2019 SARAH BARDALES MD, Ot C50.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 02/04/2019 SARAH BARDALES MD, Ot 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 02/04/2019 SARAH BARDALES MD, Ot M85.80 OTH DISRD OF BONE DENSITY AND STRUCTURE, 02/04/2019 SARAH BARDALES MD, Ot Z79.811 HALF-WAY (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 OF AROMATASE INH 02/04/2019 SARAH BARDALES MD, Ot Z79.899 OTHER HAT AND CAP 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 (CURRENT) DRUG THERAPY 02/04/2019 SARAH BARDALES MD, Ot Z92.21 PERSONAL HISTORY OF ANTINEOPLASTIC CHEMO 02/04/2019 SARAH BARDALES MD, Ot Z92.3 PERSONAL HISTORY OF IRRADIATION 02/05/2019 SARAH BARDALES MD, Ot C50.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 02/05/2019 SARAH BARDALES MD, Ot 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 02/05/2019 SARAH BARDALES MD, Ot M85.80 OTH DISRD OF BONE DENSITY AND STRUCTURE, 02/05/2019 SARAH BARDALES MD, Ot 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 02/05/2019 SARAH BARDALES MD, Ot Z79.899 OTHER HALF-WAY (CURRENT) DRUG THERAPY 02/05/2019 SARAH BARDALES MD Ot Z92.21 PERSONAL HISTORY OF ANTINEOPLASTIC CHEMO 02/05/2019 SARAH BARDALES MD Ot Z92.3 PERSONAL HISTORY OF IRRADIATION 02/10/2019 SARAH BARDALES MD, Ot C50.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 02/10/2019 SARAH BARDALES MD, Ot 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 02/10/2019 SARAH BARDALES MD, Ot M85.80 OTH DISRD OF BONE DENSITY AND STRUCTURE, 02/10/2019 SARAH BARDALES MD, Ot Z79.811 HALF-WAY (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 OF AROMATASE INH 02/10/2019 SARAH BARDALES MD, Ot Z79.899 OTHER HALF-WAY (CURRENT) DRUG THERAPY 02/10/2019 SARAH BARDALES MD, Ot Z92.21 PERSONAL HISTORY OF ANTINEOPLASTIC CHEMO 02/10/2019 SARAH BARDALES MD, Ot Z92.3 PERSONAL HISTORY OF IRRADIATION 03/30/2019 SARAH BARDALES MD, Ot C50.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 03/30/2019 SARAH BARDALES MD, Ot 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 03/30/2019 SARAH BARDALES MD, Ot M85.80 OTH DISRD OF BONE DENSITY AND STRUCTURE, 03/30/2019 SARAH BARDALES MD, Ot Z79.811 HALF-WAY (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 OF AROMATASE INH 03/30/2019 SARAH BARDALES MD, Ot Z79.899 OTHER HALF-WAY (CURRENT) DRUG THERAPY 03/30/2019 SARAH BARDALES MD Ot Z92.21 PERSONAL HISTORY OF ANTINEOPLASTIC CHEMO 03/30/2019 SARAH BARDALES MD, Ot Z92.3 PERSONAL HISTORY OF IRRADIATION 04/15/2019 SARAH BARDALES MD, Ot C50.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 04/15/2019 SARAH BARDALES MD, Ot 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 04/15/2019 SARAH BARDALES MD, Ot M85.80 OTH DISRD OF BONE DENSITY AND STRUCTURE, 04/15/2019 SARAH BARDALES MD, Ot 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 04/15/2019 SARAH BARDALES MD, Ot Z79.899 OTHER HALF-WAY (CURRENT) DRUG THERAPY 04/15/2019 SARAH BARDALES MD Ot Z92.21 PERSONAL HISTORY OF ANTINEOPLASTIC CHEMO 04/15/2019 SARAH BARDALES MD Ot Z92.3 PERSONAL HISTORY OF IRRADIATION 05/05/2019 SARAH BARDALES MD, Ot C50.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 05/05/2019 SARAH BARDALES MD, Ot 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 05/05/2019 SARAH BARDALES MD, Ot M85.80 OTH DISRD OF BONE DENSITY AND STRUCTURE, 05/05/2019 SARAH BARDALES MD, Ot 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 05/05/2019 SARAH BARDALES MD, Ot Z79.899 OTHER HAT AND CAP 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 (CURRENT) DRUG THERAPY 05/05/2019 SARAH BARDALES MD Ot Z92.21 PERSONAL HISTORY OF ANTINEOPLASTIC CHEMO 05/05/2019 SARAH BARDALES MD Ot Z92.3 PERSONAL HISTORY OF IRRADIATION 05/10/2019 ORTEGA PIERRE MD Ot 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 05/10/2019 ORTEGA PIERRE MD Ot C95.90 LEUKEMIA, UNSPECIFIED NOT HAVING ACHIEVE 05/10/2019 ORTEGA PIERRE MD Ot D50.9 IRON DEFICIENCY ANEMIA, UNSPECIFIED 05/10/2019 ORTEGA PIERRE MD Ot E03.9 HYPOTHYROIDISM, UNSPECIFIED 05/10/2019 ORTEGA PIERRE MD Ot E78.00 PURE HYPERCHOLESTEROLEMIA, UNSPECIFIED 05/10/2019 OTREGA PIERRE MD Ot E87.6 HYPOKALEMIA 05/10/2019 ORTEGA PIERRE MD Ot F20.9 SCHIZOPHRENIA, UNSPECIFIED 05/10/2019 ORTEGA PIERRE MD Ot F32.9 MAJOR DEPRESSIVE DISORDER, SINGLE EPISOD 05/10/2019 ORTEGA PIERRE MD Ot F41.9 ANXIETY DISORDER, UNSPECIFIED 05/10/2019 ORTEGA PIERRE MD Ot I1 0 ESSENTIAL (PRIMARY) HYPERTENSION 05/10/2019 ORTEGA PIERRE MD Ot J18.9 PNEUMONIA, UNSPECIFIED ORGANISM 05/10/2019 ORTEGA PIERRE MD Ot J30.2 OTHER SEASONAL ALLERGIC RHINITIS 05/10/2019 ORTEGA PIERRE MD Ot M54.9 DORSALGIA, UNSPECIFIED 05/10/2019 ORTEGA PIERRE MD Ot N17.9 ACUTE KIDNEY FAILURE, UNSPECIFIED 05/10/2019 ORTEGA PIERRE MD Ot R09.02 HYPOXEMIA 05/10/2019 ORTEGA PIERRE MD Ot R35.0 FREQUENCY OF MICTURITION 05/10/2019 ORTEGA PIERRE MD Ot Z2 3 ENCOUNTER FOR IMMUNIZATION 05/10/2019 ORTEGA PIERRE MD Ot Z85.3 PERSONAL HISTORY OF MALIGNANT NEOPLASM O 05/10/2019 ROTEGA PIERRE MD Ot Z87.440 PERSONAL HISTORY OF URINARY (TRACT) INFE 05/10/2019 ORTEGA PIERRE MD Ot Z87.891 PERSONAL HISTORY OF NICOTINE DEPENDENCE 05/10/2019 GABBY NEELY, ORTEGA Merchant Ot Z92.21 PERSONAL HISTORY OF ANTINEOPLASTIC CHEMO 06/03/2019 SARAH BARDALES MD, Ot C50.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 06/03/2019 SARAH BARDALES MD, Ot 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 06/03/2019 SARAH BARDALES MD Ot M85.80 OTH DISRD OF BONE DENSITY AND STRUCTURE, 06/03/2019 SARAH BARDALES MD, Ot Z79.811 HALF-WAY (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 OF AROMATASE INH 06/03/2019 SARAH BARDALES MD Ot Z79.899 OTHER HALF-WAY (CURRENT) DRUG THERAPY 06/03/2019 SARAH BARDALES MD Ot Z92.21 PERSONAL HISTORY OF ANTINEOPLASTIC CHEMO 06/03/2019 SARAH BARDALES MD Ot Z92.3 PERSONAL HISTORY OF IRRADIATION 06/10/2019 SARAH BARDALES MD, Ot C50.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 06/10/2019 SARAH BARDALES MD, Ot 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 06/10/2019 SARAH BARDALES MD, Ot M85.80 OTH DISRD OF BONE DENSITY AND STRUCTURE, 06/10/2019 SARAH BARDALES MD Ot 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 06/10/2019 SARAH BARDALES MD, Ot Z79.899 OTHER HAT AND CAP 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 (CURRENT) DRUG THERAPY 06/10/2019 SARAH BARDALES MD Ot Z92.21 PERSONAL HISTORY OF ANTINEOPLASTIC CHEMO 06/10/2019 SARAH BARDALES MD Ot Z92.3 PERSONAL HISTORY OF IRRADIATION 06/10/2019 SARAH BARDALES MD, Ot C50.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 06/10/2019 SARAH BARDALES MD Ot 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 06/10/2019 SARAH BARDLAES MD Ot M85.80 OTH DISRD OF BONE DENSITY AND STRUCTURE, 06/10/2019 SARAH BARDALES MD Ot Z79.811 HALF-WAY (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 OF AROMATASE INH 06/10/2019 SARAH BARDALES MD Ot Z79.899 OTHER HAT AND CAP 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 (CURRENT) DRUG THERAPY 06/10/2019 SARAH BARDALES MD Ot Z92.21 PERSONAL HISTORY OF ANTINEOPLASTIC CHEMO 06/10/2019 SARAH BARDALES MD Ot Z92.3 PERSONAL HISTORY OF IRRADIATION 06/13/2019 SARAH BARDALES MD Ot C50.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 06/13/2019 SARAH BARDALES MD Ot 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 06/13/2019 SARAH BARDALES MD Ot M85.80 OTH DISRD OF BONE DENSITY AND STRUCTURE, 06/13/2019 SARAH BARDALES MD Ot Z79.811 HALF-WAY (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 OF AROMATASE INH 06/13/2019 SARAH BARDALES MD Ot Z79.899 OTHER HAT AND CAP 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 (CURRENT) DRUG THERAPY 06/13/2019 SARAH BARDALES MD Ot Z92.21 PERSONAL HISTORY OF ANTINEOPLASTIC CHEMO 06/13/2019 SARAH BARDALES MD Ot Z92.3 PERSONAL HISTORY OF IRRADIATION 06/29/2019 CHASIDY ANDREWS APRN Ot J18.9 PNEUMONIA, UNSPECIFIED ORGANISM 06/29/2019 CHASIDY ANDREWS APRN Ot R91.8 OTHER NONSPECIFIC ABNORMAL FINDING OF ABIOLA 06/29/2019 CHASIDY ANDREWS APRN Ot Z87.891 PERSONAL HISTORY OF NICOTINE DEPENDENCE 07/16/2019 SARAH BARDALES MD, Ot C50.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 07/16/2019 SARAH BARDALES MD, Ot 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 07/16/2019 SARAH BARDALES MD Ot M85.80 OTH DISRD OF BONE DENSITY AND STRUCTURE, 07/16/2019 SARAH BARDALES MD Ot 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 07/16/2019 SARAH BARDALES MD Ot Z79.899 OTHER HAT AND CAP 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 (CURRENT) DRUG THERAPY 07/16/2019 SARAH BARDALES MD Ot Z92.21 PERSONAL HISTORY OF ANTINEOPLASTIC CHEMO 07/16/2019 SARAH BARDALES MD Ot Z92.3 PERSONAL HISTORY OF IRRADIATION 07/19/2019 CHASIDY ANDREWS APRN Ot J18.9 PNEUMONIA, UNSPECIFIED ORGANISM 07/19/2019 CHASIDY ANDREWS APRN Ot R91.8 OTHER NONSPECIFIC ABNORMAL FINDING OF ABIOLA 07/19/2019 CHASIDY ANDREWS APRN Ot Z87.891 PERSONAL HISTORY OF NICOTINE DEPENDENCE 09/01/2019 SARAH BARDALES MD Ot C50.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 09/01/2019 SARAH BARDALES MD Ot 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 09/01/2019 SARAH BARDALES MD Ot M85.80 OTH DISRD OF BONE DENSITY AND STRUCTURE, 09/01/2019 SARAH BARDALES MD Ot 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 09/01/2019 SRAAH BARDALES MD Ot Z79.899 OTHER HALF-WAY (CURRENT) DRUG THERAPY 09/01/2019 SARAH BARDALES MD Ot Z92.21 PERSONAL HISTORY OF ANTINEOPLASTIC CHEMO 09/01/2019 SARAH BARDALES MD Ot Z92.3 PERSONAL HISTORY OF IRRADIATION 09/02/2019 SARAH BARDALES MD Ot C50.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 09/02/2019 SARAH BARDALES MD Ot 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 09/02/2019 SARAH BARDALES MD Ot M85.80 OTH DISRD OF BONE DENSITY AND STRUCTURE, 09/02/2019 SARAH BARDALES MD Ot 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 09/02/2019 SARAH BARDALES MD Ot Z79.899 OTHER HALF-WAY (CURRENT) DRUG THERAPY 09/02/2019 SARAH BARDALES MD Ot Z92.21 PERSONAL HISTORY OF ANTINEOPLASTIC CHEMO 09/02/2019 SARAH BARDALES MD Ot Z92.3 PERSONAL HISTORY OF IRRADIATION 09/09/2019 MARGE SPRINGER Ot C50.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 09/09/2019 MARGE SPRINGER N Ot 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 09/09/2019 MARGE SPRINGER Ot M85.80 OTH DISRD OF BONE DENSITY AND STRUCTURE, 09/09/2019 MARGE SPRINGER Ot Z79.811 HALF-WAY (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 OF AROMATASE INH 09/09/2019 MARGE SPRINGER Ot Z79.899 OTHER HALF-WAY (CURRENT) DRUG THERAPY 09/09/2019 MARGE SPRINGER Ot Z92.21 PERSONAL HISTORY OF ANTINEOPLASTIC CHEMO 09/09/2019 MARGE SPRINGER Ot Z92.3 PERSONAL HISTORY OF IRRADIATION 09/12/2019 MARGE SPRINGER Ot C50.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 09/12/2019 MARGE SPRINGER Ot 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 09/12/2019 MARGE SPRINGER Ot M85.88 OTH DISRD OF BONE DENSITY AND STRUCTURE, 09/12/2019 MARGE SPRINGER Ot Z79.811 HALF-WAY (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 OF AROMATASE INH 09/12/2019 MARGE SPRINGER Ot Z98.890 OTHER SPECIFIED POSTPROCEDURAL STATES 10/13/2019 MARGE SPRINGER Ot C50.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 10/13/2019 MARGE SPRINGER Ot 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 10/13/2019 MARGE SPRINGER N Ot Z45.2 ENCOUNTER FOR ADJUSTMENT AND MANAGEMENT 10/13/2019 MARGE SPRINGER Ot 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 10/15/2019 MARGE SPRINGER Ot C50.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 10/15/2019 MARGE SPRINGER Ot 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 10/15/2019 GIANMARGE SPANN Ot Z45.2 ENCOUNTER FOR ADJUSTMENT AND MANAGEMENT 10/15/2019 MARGE SPRINGER Ot Z79.811 HALF-WAY (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 OF AROMATASE INH 10/30/2019 MARGE SPRINGER Ot C50.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 10/30/2019 MARGE SPRINGER N Ot 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 10/30/2019 MARGE SPRINGER N Ot Z45.2 ENCOUNTER FOR ADJUSTMENT AND MANAGEMENT 10/30/2019 MARGE SPRINGER Ot 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 Procedures Code Description Performed By Per formed On [id number] RE SPIRATORY VENTILATION, GREATER THAN 96 09/15/[id number] PENALOZA OF RIGHT MIDDLE LUNG LOBE, ENDO 09/17/2017 [id number] EX TRACTION OF RIGHT MIDDLE LUNG LOBE, EN 09/17/2017 [id number] EX TRACTION OF LEFT LOWER LUNG LOBE, ENDO 09/17/2017 Results Test Result Range Influenza virus A and B antigen detectio n - 04/30/16 18:15 FLU RESULT NEGATIVE FOR INFLUENZA A AND B ANTIGENS BY IA NRG Blood lactic acid measurement (moles/vol ume) - 04/30/16 18:25 Blood lactic acid measurement (moles/volume) 1.5 m mol/L 0.5- 2.0 Complete blood count (CBC) with automate d white blood cell (WBC) differential - 05/01/16 04:34 Blood leukocytes automated count (number/volume) 2.9 10*3/uL 4.3-11.0 Blood erythrocytes automated count (number/volume) 3.20 10*6/uL 4.35-5.85 Venous blood hemoglobin measurement (mass/volume) 10.8 g/dL 11.5-16.0 Blood hematocrit (volume fraction) 32 % 35-52 Automated erythrocyte mean corpuscular volume 99 [ foz_us] 80-99 Automated erythrocyte mean corpuscular h emoglobin (mass per erythrocyte) 34 pg 25-34 Automated erythrocyte mean corpuscular h emoglobin concentration measurement (mass/volume) 34 g/dL 32-36 Automated erythrocyte distribution width ratio 13. 1 % 10.0- 14.5 Automated blood platelet count (count/volume) 106 10*3/uL 130-400 Automated blood platelet mean volume measurement 10.8 [foz_us] 7.4-10.4 Automated blood neutrophils/100 leukocytes 44 % 42-75 Automated blood lymphocytes/100 leukocytes 27 % 12-44 Blood monocytes/100 leukocytes 24 % 0-12 Automated blood eosinophils/100 leukocytes 4 % 0-10 Automated blood basophils/100 leukocytes 1 % 0-10 Blood neutrophils automated count (number/volume) 1.3 10*3 1.8-7.8 Blood lymphocytes automated count (number/volume) 0.8 10*3 1.0-4.0 Blood monocytes automated count (number/volume) 0. 7 10*3 0.0-1.0 Automated eosinophil count 0.1 10*3/uL 0 .0-0.3 Automated blood basophil count (count/volume) 0.0 10*3/uL 0.0-0.1 Whole blood basic metabolic panel - 04/20 09/05 04:34 Serum or plasma sodium measurement (moles/volume) 135 mmol/L 135-145 Serum or plasma potassium measurement (moles/volume) 3.8 mmol/L 3.6-5.0 Serum or plasma chloride measurement (moles/volume) 106 mmol/L 98-107 Carbon dioxide 15 mmol/L 21-32 Serum or plasma anion gap determination (moles/volume) 14 mmol/L 5-14 Serum or plasma urea nitrogen measurement (mass/volume ) 10 mg/dL 7-18 Serum or plasma creatinine measurement (mass/volume) 0.92 mg/dL 0.60-1.30 Serum or plasma urea nitrogen/creatinine mass ratio 11 NRG Serum or plasma creatinine measurement w ith calculation of estimated glomerular filtration rate > NRG Serum or plasma glucose measurement (mass/volume) 105 mg/dL 70-105 Serum or plasma calcium measurement (mass/volume) 8.4 mg/dL 8.5-10.1 Magnesium - 05/01/16 04:34 Magnesium 1.6 mg/dL 1.8-2.4 Complete urinalysis with reflex to cultu re - 05/01/16 11:15 Urine color determination YELLOW NRG Urine clarity determination CLEAR NR G Urine pH measurement by test strip 5 5-9 Specific gravity of urine by test strip 1.005 1.016-1.022 Urine protein assay by test strip, semi-quantitative NEGATIVE NEGATIVE Urine glucose detection by automated test strip NE GATIVE NEGATIVE Erythrocytes detection in urine sediment by light micr oscopy 1+ NEGATIVE Urine ketones detection by automated test strip NE GATIVE NEGATIVE Urine nitrite detection by test strip NEGATIVE NEGATIVE Urine total bilirubin detection by test strip NEGA TIVE NEGATIVE Urine urobilinogen measurement by automated test strip (mass/volume) NORMAL NORMAL Urine leukocyte esterase detection by dipstick 1+ NEGATIVE Automated urine sediment erythrocyte cou nt by microscopy (number/high power field) NONE NRG Automated urine sediment leukocyte count by microscopy (number/high power field) [HPF] NRG Bacteria detection in urine sediment by light microsco py TRACE NRG Squamous epithelial cells detection in u rine sediment by light microscopy 0-2 NRG Crystals detection in urine sediment by light microsco py NONE NRG Casts detection in urine sediment by light microscopy NONE NRG Mucus detection in urine sediment by light microscopy NEGATIVE NRG Complete urinalysis with reflex to culture NO NRG Clostridium difficile detection - 16:02 C DIFF MOLECULAR RESULT Negative for toxigen ic C diff by DNA amplification NRG Complete blood count (CBC) with automate d white blood cell (WBC) differential - 05/02/16 06:55 Blood leukocytes automated count (number/volume) 4.1 10*3/uL 4.3-11.0 Blood erythrocytes automated count (number/volume) 3.25 10*6/uL 4.35-5.85 Venous blood hemoglobin measurement (mass/volume) 11.0 g/dL 11.5-16.0 Blood hematocrit (volume fraction) 32 % 35-52 Automated erythrocyte mean corpuscular volume 99 [ foz_us] 80-99 Automated erythrocyte mean corpuscular h emoglobin (mass per erythrocyte) 34 pg 25-34 Automated erythrocyte mean corpuscular h emoglobin concentration measurement (mass/volume) 34 g/dL 32-36 Automated erythrocyte distribution width ratio 13. 7 % 10.0- 14.5 Automated blood platelet count (count/volume) 107 10*3/uL 130-400 Automated blood platelet mean volume measurement 10.5 [foz_us] 7.4-10.4 Automated blood neutrophils/100 leukocytes 75 % 42-75 Automated blood lymphocytes/100 leukocytes 9 % 12-44 Blood monocytes/100 leukocytes 15 % 0-12 Automated blood eosinophils/100 leukocytes 1 % 0-10 Automated blood basophils/100 leukocytes 1 % 0-10 Blood neutrophils automated count (number/volume) 3.1 10*3 1.8-7.8 Blood lymphocytes automated count (number/volume) 0.4 10*3 1.0-4.0 Blood monocytes automated count (number/volume) 0. 6 10*3 0.0-1.0 Automated eosinophil count 0.0 10*3/uL 0 .0-0.3 Automated blood basophil count (count/volume) 0.0 10*3/uL 0.0-0.1 Comprehensive metabolic panel - 05/02/16 06:55 Serum or plasma sodium measurement (moles/volume) 137 mmol/L 135-145 Serum or plasma potassium measurement (moles/volume) 3.7 mmol/L 3.6-5.0 Serum or plasma chloride measurement (moles/volume) 110 mmol/L 98-107 Carbon dioxide 18 mmol/L 21-32 Serum or plasma anion gap determination (moles/volume) 9 mmol/L 5-14 Serum or plasma urea nitrogen measurement (mass/volume ) 9 mg/dL 7-18 Serum or plasma creatinine measurement (mass/volume) 0.79 mg/dL 0.60-1.30 Serum or plasma urea nitrogen/creatinine mass ratio 11 NRG Serum or plasma creatinine measurement w ith calculation of estimated glomerular filtration rate > NRG Serum or plasma glucose measurement (mass/volume) 167 mg/dL 70-105 Serum or plasma calcium measurement (mass/volume) 7.9 mg/dL 8.5-10.1 Serum or plasma total bilirubin measurement (mass/volu me) 0.5 mg/dL 0.1-1.0 Serum or plasma alkaline phosphatase mitzy surement (enzymatic activity/volume) 52 U/L 40-136 Serum or plasma aspartate aminotransfera se measurement (enzymatic activity/volume) 21 U/L 5-34 Serum or plasma alanine aminotransferase measurement (enzymatic activity/volume) 25 U/L 0-55 Serum or plasma protein measurement (mass/volume) 5.7 g/dL 6.4-8.2 Serum or plasma albumin measurement (mass/volume) 2.9 g/dL 3.2-4.5 Magnesium - 05/02/16 06:55 Magnesium 1.8 mg/dL 1.8-2.4 Complete blood count (CBC) with automate d white blood cell (WBC) differential - 05/03/16 06:12 Blood leukocytes automated count (number/volume) 8.3 10*3/uL 4.3-11.0 Blood erythrocytes automated count (number/volume) 3.07 10*6/uL 4.35-5.85 Venous blood hemoglobin measurement (mass/volume) 10.3 g/dL 11.5-16.0 Blood hematocrit (volume fraction) 31 % 35-52 Automated erythrocyte mean corpuscular volume 100 [foz_us] 80-99 Automated erythrocyte mean corpuscular h emoglobin (mass per erythrocyte) 34 pg 25-34 Automated erythrocyte mean corpuscular h emoglobin concentration measurement (mass/volume) 34 g/dL 32-36 Automated erythrocyte distribution width ratio 13. 8 % 10.0- 14.5 Automated blood platelet count (count/volume) 128 10*3/uL 130-400 Automated blood platelet mean volume measurement 10.5 [foz_us] 7.4-10.4 Automated blood neutrophils/100 leukocytes 70 % 42-75 Automated blood lymphocytes/100 leukocytes 16 % 12-44 Blood monocytes/100 leukocytes 13 % 0-12 Automated blood eosinophils/100 leukocytes 1 % 0-10 Automated blood basophils/100 leukocytes 0 % 0-10 Blood neutrophils automated count (number/volume) 5.8 10*3 1.8-7.8 Blood lymphocytes automated count (number/volume) 1.4 10*3 1.0-4.0 Blood monocytes automated count (number/volume) 1. 0 10*3 0.0-1.0 Automated eosinophil count 0.1 10*3/uL 0 .0-0.3 Automated blood basophil count (count/volume) 0.0 10*3/uL 0.0-0.1 Comprehensive metabolic panel - 05/03/16 06:12 Serum or plasma sodium measurement (moles/volume) 143 mmol/L 135-145 Serum or plasma potassium measurement (moles/volume) 3.1 mmol/L 3.6-5.0 Serum or plasma chloride measurement (moles/volume) 116 mmol/L 98-107 Carbon dioxide 20 mmol/L 21-32 Serum or plasma anion gap determination (moles/volume) 7 mmol/L 5-14 Serum or plasma urea nitrogen measurement (mass/volume ) 9 mg/dL 7-18 Serum or plasma creatinine measurement (mass/volume) 0.85 mg/dL 0.60-1.30 Serum or plasma urea nitrogen/creatinine mass ratio 11 NRG Serum or plasma creatinine measurement w ith calculation of estimated glomerular filtration rate > NRG Serum or plasma glucose measurement (mass/volume) 85 mg/dL 70-105 Serum or plasma calcium measurement (mass/volume) 8.2 mg/dL 8.5-10.1 Serum or plasma total bilirubin measurement (mass/volu me) 0.5 mg/dL 0.1-1.0 Serum or plasma alkaline phosphatase mitzy surement (enzymatic activity/volume) 52 U/L 40-136 Serum or plasma aspartate aminotransfera se measurement (enzymatic activity/volume) 21 U/L 5-34 Serum or plasma alanine aminotransferase measurement (enzymatic activity/volume) 23 U/L 0-55 Serum or plasma protein measurement (mass/volume) 5.4 g/dL 6.4-8.2 Serum or plasma albumin measurement (mass/volume) 2.7 g/dL 3.2-4.5 Complete blood count (CBC) with automate d white blood cell (WBC) differential - 05/04/16 06:05 Blood leukocytes automated count (number/volume) 7.2 10*3/uL 4.3-11.0 Blood erythrocytes automated count (number/volume) 3.08 10*6/uL 4.35-5.85 Venous blood hemoglobin measurement (mass/volume) 10.3 g/dL 11.5-16.0 Blood hematocrit (volume fraction) 31 % 35-52 Automated erythrocyte mean corpuscular volume 99 [ foz_us] 80-99 Automated erythrocyte mean corpuscular h emoglobin (mass per erythrocyte) 33 pg 25-34 Automated erythrocyte mean corpuscular h emoglobin concentration measurement (mass/volume) 34 g/dL 32-36 Automated erythrocyte distribution width ratio 14. 0 % 10.0- 14.5 Automated blood platelet count (count/volume) 135 10*3/uL 130-400 Automated blood platelet mean volume measurement 10.6 [foz_us] 7.4-10.4 Automated blood neutrophils/100 leukocytes 66 % 42-75 Automated blood lymphocytes/100 leukocytes 19 % 12-44 Blood monocytes/100 leukocytes 12 % 0-12 Automated blood eosinophils/100 leukocytes 3 % 0-10 Automated blood basophils/100 leukocytes 0 % 0-10 Blood neutrophils automated count (number/volume) 4.7 10*3 1.8-7.8 Blood lymphocytes automated count (number/volume) 1.4 10*3 1.0-4.0 Blood monocytes automated count (number/volume) 0. 9 10*3 0.0-1.0 Automated eosinophil count 0.2 10*3/uL 0 .0-0.3 Automated blood basophil count (count/volume) 0.0 10*3/uL 0.0-0.1 Comprehensive metabolic panel - 05/04/16 06:05 Serum or plasma sodium measurement (moles/volume) 145 mmol/L 135-145 Serum or plasma potassium measurement (moles/volume) 2.9 mmol/L 3.6-5.0 Serum or plasma chloride measurement (moles/volume) 112 mmol/L 98-107 Carbon dioxide 23 mmol/L 21-32 Serum or plasma anion gap determination (moles/volume) 10 mmol/L 5-14 Serum or plasma urea nitrogen measurement (mass/volume ) 6 mg/dL 7-18 Serum or plasma creatinine measurement (mass/volume) 0.82 mg/dL 0.60-1.30 Serum or plasma urea nitrogen/creatinine mass ratio 7 NRG Serum or plasma creatinine measurement w ith calculation of estimated glomerular filtration rate > NRG Serum or plasma glucose measurement (mass/volume) 88 mg/dL 70-105 Serum or plasma calcium measurement (mass/volume) 8.0 mg/dL 8.5-10.1 Serum or plasma total bilirubin measurement (mass/volu me) 0.6 mg/dL 0.1-1.0 Serum or plasma alkaline phosphatase mitzy surement (enzymatic activity/volume) 61 U/L 40-136 Serum or plasma aspartate aminotransfera se measurement (enzymatic activity/volume) 22 U/L 5-34 Serum or plasma alanine aminotransferase measurement (enzymatic activity/volume) 24 U/L 0-55 Serum or plasma protein measurement (mass/volume) 5.2 g/dL 6.4-8.2 Serum or plasma albumin measurement (mass/volume) 2.7 g/dL 3.2-4.5 Complete blood count (CBC) with automate d white blood cell (WBC) differential - 09/11/17 09:25 Blood leukocytes automated count (number/volume) 2.7 10*3/uL 4.3-11.0 Blood erythrocytes automated count (number/volume) 3.90 10*6/uL 4.35-5.85 Venous blood hemoglobin measurement (mass/volume) 13.2 g/dL 11.5-16.0 Blood hematocrit (volume fraction) 38 % 35-52 Automated erythrocyte mean corpuscular volume 97 [ foz_us] 80-99 Automated erythrocyte mean corpuscular h emoglobin (mass per erythrocyte) 34 pg 25-34 Automated erythrocyte mean corpuscular h emoglobin concentration measurement (mass/volume) 35 g/dL 32-36 Automated erythrocyte distribution width ratio 13. 9 % 10.0- 14.5 Automated blood platelet count (count/volume) 177 10*3/uL 130-400 Automated blood platelet mean volume measurement 10.4 [foz_us] 7.4-10.4 Automated blood neutrophils/100 leukocytes 64 % 42-75 Automated blood lymphocytes/100 leukocytes 14 % 12-44 Blood monocytes/100 leukocytes 22 % 0-12 Automated blood eosinophils/100 leukocytes 0 % 0-10 Automated blood basophils/100 leukocytes 0 % 0-10 Blood neutrophils automated count (number/volume) 1.7 10*3 1.8-7.8 Blood lymphocytes automated count (number/volume) 0.4 10*3 1.0-4.0 Blood monocytes automated count (number/volume) 0. 6 10*3 0.0-1.0 Automated eosinophil count 0.0 10*3/uL 0 .0-0.3 Automated blood basophil count (count/volume) 0.0 10*3/uL 0.0-0.1 Comprehensive metabolic panel - 09/11/17 09:25 Serum or plasma sodium measurement (moles/volume) 132 mmol/L 135-145 Serum or plasma potassium measurement (moles/volume) 5.0 mmol/L 3.6-5.0 Serum or plasma chloride measurement (moles/volume) 103 mmol/L 98-107 Carbon dioxide 13 mmol/L 21-32 Serum or plasma anion gap determination (moles/volume) 16 mmol/L 5-14 Serum or plasma urea nitrogen measurement (mass/volume ) 65 mg/dL 7-18 Serum or plasma creatinine measurement (mass/volume) 2.63 mg/dL 0.60-1.30 Serum or plasma urea nitrogen/creatinine mass ratio 25 NRG Serum or plasma creatinine measurement w ith calculation of estimated glomerular filtration rate 18 NRG Serum or plasma glucose measurement (mass/volume) 136 mg/dL 70-105 Serum or plasma calcium measurement (mass/volume) 9.6 mg/dL 8.5-10.1 Serum or plasma total bilirubin measurement (mass/volu me) 1.3 mg/dL 0.1-1.0 Serum or plasma alkaline phosphatase mitzy surement (enzymatic activity/volume) 79 U/L 40-136 Serum or plasma aspartate aminotransfera se measurement (enzymatic activity/volume) 32 U/L 5-34 Serum or plasma alanine aminotransferase measurement (enzymatic activity/volume) 39 U/L 0-55 Serum or plasma protein measurement (mass/volume) 7.7 g/dL 6.4-8.2 Serum or plasma albumin measurement (mass/volume) 3.5 g/dL 3.2-4.5 Serum or plasma creatine kinase measurem ent (enzymatic activity/volume) - 09/11/17 09:25 Serum or plasma creatine kinase measurem ent (enzymatic activity/volume) 115 U/L 29-168 Serum or plasma troponin i.cardiac measu rement (mass/volume) - 09/11/17 09:25 Serum or plasma troponin i.cardiac measurement (mass/v olume) < ng/mL <0.30 Blood lactic acid measurement (moles/vol ume) - 09/11/17 09:25 Blood lactic acid measurement (moles/volume) 1.80 mmol/L 0.50-2.00 Bacterial blood culture - 09/11/17 09:25 Bacterial blood culture NG NRG Sputum Gram stain - 09/11/17 09:38 Sputum Gram stain of gram negative coccobacilli NRG Bacterial sputum culture - 09/11/17 09:3 8 FREE TEXT EXTERNAL PLUS SCANT PRESUMPTIVE DEBORAH ALBICANS NRG QUANTITY OF GROWTH Abundant Growth NRG FREE TEXT ENTRY 2 PLUS NORMAL SHANNAN NRG Bacterial sputum culture [id number] NRG Influenza virus A and B antigen detectio n - 09/11/17 10:06 CALL POSITIVES (F1 HELP) CALLED TO TRISTAN AT 1020 NRG FLU RESULT POSITIVE FOR INFLUENZA A ANT IGEN, NEG FOR B ANTIGEN, BY IA NRG Bacterial blood culture - 09/11/17 10:19 Bacterial blood culture NG NRG Complete urinalysis with reflex to cultu re - 09/11/17 11:51 Urine color determination YELLOW NRG Urine clarity determination CLEAR NR G Urine pH measurement by test strip 5 5-9 Specific gravity of urine by test strip 1.015 1.016-1.022 Urine protein assay by test strip, semi-quantitative 2+ NEGATIVE Urine glucose detection by automated test strip NE GATIVE NEGATIVE Erythrocytes detection in urine sediment by light micr oscopy 1+ NEGATIVE Urine ketones detection by automated test strip NE GATIVE NEGATIVE Urine nitrite detection by test strip NEGATIVE NEGATIVE Urine total bilirubin detection by test strip NEGA TIVE NEGATIVE Urine urobilinogen measurement by automated test strip (mass/volume) NORMAL NORMAL Urine leukocyte esterase detection by dipstick 1+ NEGATIVE Automated urine sediment erythrocyte cou nt by microscopy (number/high power field) [HPF] NRG Automated urine sediment leukocyte count by microscopy (number/high power field) [HPF] NRG Bacteria detection in urine sediment by light microsco py LARGE NRG Squamous epithelial cells detection in u rine sediment by light microscopy 0-2 NRG Crystals detection in urine sediment by light microsco py NONE NRG Casts detection in urine sediment by light microscopy PRESENT NRG Mucus detection in urine sediment by light microscopy NEGATIVE NRG Complete urinalysis with reflex to culture YES NRG Coarse granular casts detection in urine sediment by l ight microscopy >50 NRG Bacterial urine culture - 09/11/17 11:51 Bacterial urine culture [id number] NRG COLONY COUNT >100,000/ML NR FTX;REPORTABLE SENSITIVITY REPORTED AT 1511, 2 [facility] URINE CULTURE RESULTS PLUS NR Bacterial susceptibility panel - 8 11:51 Gentamicin susceptibility test by minimum inhibitory c oncentration <= NRG Trimethoprim/sulfamethoxazole susceptibi lity test by minimum inhibitoryconcentration S NRG Ampicillin susceptibility test by minimum inhibitory c oncentration <= NRG Tobramycin susceptibility test by minimum inhibitory c oncentration <= NRG Cefazolin susceptibility test by minimum inhibitory co ncentration <= NRG Ceftriaxone susceptibility test by minimum inhibitory concentration <= NRG Ampicillin/sulbactam susceptibility test by minimum inhibitory concentration <= NRG Piperacillin/tazobactam susceptibility t est by minimum inhibitory concentration S NRG Ciprofloxacin susceptibility test by minimum inhibitor y concentration <= NRG Meropenem susceptibility test by minimum inhibitory co ncentration <= NRG Nitrofurantoin susceptibility test by mi nimum inhibitory concentration <= NRG Aztreonam susceptibility test by minimum inhibitory co ncentration <= NRG Extended spectrum beta lactamase (ESBL) producing bacteria susceptibility test by minimum inhibitory concentration - NRG Cefepime susceptibility test by minimum inhibitory con centration <= NRG Complete blood count (CBC) with automate d white blood cell (WBC) differential - 09/12/17 05:55 Blood leukocytes automated count (number/volume) 0.7 10*3/uL 4.3-11.0 Blood erythrocytes automated count (number/volume) 2.93 10*6/uL 4.35-5.85 Venous blood hemoglobin measurement (mass/volume) 9.8 g/dL 11.5-16.0 Blood hematocrit (volume fraction) 29 % 35-52 Automated erythrocyte mean corpuscular volume 100 [foz_us] 80-99 Automated erythrocyte mean corpuscular h emoglobin (mass per erythrocyte) 33 pg 25-34 Automated erythrocyte mean corpuscular h emoglobin concentration measurement (mass/volume) 34 g/dL 32-36 Automated erythrocyte distribution width ratio 14. 1 % 10.0- 14.5 Automated blood platelet count (count/volume) 144 10*3/uL 130-400 Automated blood platelet mean volume measurement 10.0 [foz_us] 7.4-10.4 Automated blood neutrophils/100 leukocytes 23 % 42-75 Automated blood lymphocytes/100 leukocytes 29 % 12-44 Blood monocytes/100 leukocytes 46 % 0-12 Automated blood eosinophils/100 leukocytes 0 % 0-10 Automated blood basophils/100 leukocytes 1 % 0-10 Blood neutrophils automated count (number/volume) 0.2 10*3 1.8-7.8 Blood lymphocytes automated count (number/volume) 0.2 10*3 1.0-4.0 Blood monocytes automated count (number/volume) 0. 3 10*3 0.0-1.0 Automated eosinophil count 0.0 10*3/uL 0 .0-0.3 Automated blood basophil count (count/volume) 0.0 10*3/uL 0.0-0.1 Comprehensive metabolic panel - 09/12/17 05:55 Serum or plasma sodium measurement (moles/volume) 140 mmol/L 135-145 Serum or plasma potassium measurement (moles/volume) 4.7 mmol/L 3.6-5.0 Serum or plasma chloride measurement (moles/volume) 118 mmol/L 98-107 Carbon dioxide 13 mmol/L 21-32 Serum or plasma anion gap determination (moles/volume) 9 mmol/L 5-14 Serum or plasma urea nitrogen measurement (mass/volume ) 47 mg/dL 7-18 Serum or plasma creatinine measurement (mass/volume) 1.35 mg/dL 0.60-1.30 Serum or plasma urea nitrogen/creatinine mass ratio 35 NRG Serum or plasma creatinine measurement w ith calculation of estimated glomerular filtration rate 39 NRG Serum or plasma glucose measurement (mass/volume) 86 mg/dL 70-105 Serum or plasma calcium measurement (mass/volume) 7.9 mg/dL 8.5-10.1 Serum or plasma total bilirubin measurement (mass/volu me) 0.7 mg/dL 0.1-1.0 Serum or plasma alkaline phosphatase mitzy surement (enzymatic activity/volume) 78 U/L 40-136 Serum or plasma aspartate aminotransfera se measurement (enzymatic activity/volume) 23 U/L 5-34 Serum or plasma alanine aminotransferase measurement (enzymatic activity/volume) 27 U/L 0-55 Serum or plasma protein measurement (mass/volume) 5.4 g/dL 6.4-8.2 Serum or plasma albumin measurement (mass/volume) 2.6 g/dL 3.2-4.5 Complete blood count (CBC) with automate d white blood cell (WBC) differential - 09/13/17 05:55 Blood leukocytes automated count (number/volume) 2.2 10*3/uL 4.3-11.0 Blood erythrocytes automated count (number/volume) 2.96 10*6/uL 4.35-5.85 Venous blood hemoglobin measurement (mass/volume) 9.9 g/dL 11.5-16.0 Blood hematocrit (volume fraction) 29 % 35-52 Automated erythrocyte mean corpuscular volume 99 [ foz_us] 80-99 Automated erythrocyte mean corpuscular h emoglobin (mass per erythrocyte) 33 pg 25-34 Automated erythrocyte mean corpuscular h emoglobin concentration measurement (mass/volume) 34 g/dL 32-36 Automated erythrocyte distribution width ratio 14. 6 % 10.0- 14.5 Automated blood platelet count (count/volume) 164 10*3/uL 130-400 Automated blood platelet mean volume measurement 9.6 [foz_us] 7.4-10.4 Automated blood neutrophils/100 leukocytes 59 % 42-75 Automated blood lymphocytes/100 leukocytes 16 % 12-44 Blood monocytes/100 leukocytes 23 % 0-12 Automated blood eosinophils/100 leukocytes 1 % 0-10 Automated blood basophils/100 leukocytes 1 % 0-10 Blood neutrophils automated count (number/volume) 1.3 10*3 1.8-7.8 Blood lymphocytes automated count (number/volume) 0.3 10*3 1.0-4.0 Blood monocytes automated count (number/volume) 0. 5 10*3 0.0-1.0 Automated eosinophil count 0.0 10*3/uL 0 .0-0.3 Automated blood basophil count (count/volume) 0.0 10*3/uL 0.0-0.1 Whole blood basic metabolic panel - 08/22 11/05 05:55 Serum or plasma sodium measurement (moles/volume) 139 mmol/L 135-145 Serum or plasma potassium measurement (moles/volume) 4.4 mmol/L 3.6-5.0 Serum or plasma chloride measurement (moles/volume) 118 mmol/L 98-107 Carbon dioxide 11 mmol/L 21-32 Serum or plasma anion gap determination (moles/volume) 10 mmol/L 5-14 Serum or plasma urea nitrogen measurement (mass/volume ) 28 mg/dL 7-18 Serum or plasma creatinine measurement (mass/volume) 0.94 mg/dL 0.60-1.30 Serum or plasma urea nitrogen/creatinine mass ratio 30 NRG Serum or plasma creatinine measurement w ith calculation of estimated glomerular filtration rate 59 NRG Serum or plasma glucose measurement (mass/volume) 90 mg/dL 70-105 Serum or plasma calcium measurement (mass/volume) 8.1 mg/dL 8.5-10.1 Arterial blood gas measurement - 8 13:00 Blood pCO2 34 mm[Hg] 35-45 Blood pO2 93 mm[Hg] 79-93 Arterial blood bicarbonate measurement (moles/volume) 14 mmol/L 23-27 Arterial blood base excess by calculation -11.8 mm ol/L -2.5-2.5 Arterial blood oxygen saturation measurement 98 % 94-100 * Inhaled oxygen flow rate 35% NRG Arterial blood pH measurement with patient temperature correction 7.24 7.37-7.43 Arterial blood carbon dioxide, total measurement (mole s/volume) 15.4 mmol/L 21.0-31.0 Body site RT RAD NRG Assessment of wrist artery patency prior to arterial p uncture YES-POS NRG Setting of ventilation mode NO NR G Measurement of body temperature 97.7 NRG Complete blood count (CBC) with automate d white blood cell (WBC) differential - 09/13/17 13:13 Blood leukocytes automated count (number/volume) 2.9 10*3/uL 4.3-11.0 Blood erythrocytes automated count (number/volume) 3.00 10*6/uL 4.35-5.85 Venous blood hemoglobin measurement (mass/volume) 10.2 g/dL 11.5-16.0 Blood hematocrit (volume fraction) 30 % 35-52 Automated erythrocyte mean corpuscular volume 100 [foz_us] 80-99 Automated erythrocyte mean corpuscular h emoglobin (mass per erythrocyte) 34 pg 25-34 Automated erythrocyte mean corpuscular h emoglobin concentration measurement (mass/volume) 34 g/dL 32-36 Automated erythrocyte distribution width ratio 14. 7 % 10.0- 14.5 Automated blood platelet count (count/volume) 163 10*3/uL 130-400 Automated blood platelet mean volume measurement 9.5 [foz_us] 7.4-10.4 Automated blood neutrophils/100 leukocytes 63 % 42-75 Automated blood lymphocytes/100 leukocytes 15 % 12-44 Blood monocytes/100 leukocytes 20 % 0-12 Automated blood eosinophils/100 leukocytes 1 % 0-10 Automated blood basophils/100 leukocytes 0 % 0-10 Blood neutrophils automated count (number/volume) 1.8 10*3 1.8-7.8 Blood lymphocytes automated count (number/volume) 0.4 10*3 1.0-4.0 Blood monocytes automated count (number/volume) 0. 6 10*3 0.0-1.0 Automated eosinophil count 0.0 10*3/uL 0 .0-0.3 Automated blood basophil count (count/volume) 0.0 10*3/uL 0.0-0.1 Comprehensive metabolic panel - 09/13/17 13:13 Serum or plasma sodium measurement (moles/volume) 141 mmol/L 135-145 Serum or plasma potassium measurement (moles/volume) 4.5 mmol/L 3.6-5.0 Serum or plasma chloride measurement (moles/volume) 119 mmol/L 98-107 Carbon dioxide 11 mmol/L 21-32 Serum or plasma anion gap determination (moles/volume) 11 mmol/L 5-14 Serum or plasma urea nitrogen measurement (mass/volume ) 24 mg/dL 7-18 Serum or plasma creatinine measurement (mass/volume) 0.89 mg/dL 0.60-1.30 Serum or plasma urea nitrogen/creatinine mass ratio 27 NRG Serum or plasma creatinine measurement w ith calculation of estimated glomerular filtration rate > NRG Serum or plasma glucose measurement (mass/volume) 81 mg/dL 70-105 Serum or plasma calcium measurement (mass/volume) 8.4 mg/dL 8.5-10.1 Serum or plasma total bilirubin measurement (mass/volu me) 0.6 mg/dL 0.1-1.0 Serum or plasma alkaline phosphatase mitzy surement (enzymatic activity/volume) 77 U/L 40-136 Serum or plasma aspartate aminotransfera se measurement (enzymatic activity/volume) 18 U/L 5-34 Serum or plasma alanine aminotransferase measurement (enzymatic activity/volume) 25 U/L 0-55 Serum or plasma protein measurement (mass/volume) 5.8 g/dL 6.4-8.2 Serum or plasma albumin measurement (mass/volume) 2.5 g/dL 3.2-4.5 Serum or plasma lithium measurement (mol es/volume) - 09/13/17 13:13 BNP level 471.2 pg/mL <100.0 Blood manual differential performed dete ction - 09/13/17 13:13 Blood monocytes/100 leukocytes 14 % NRG Manual blood segmented neutrophils/100 leukocytes 28 % NRG Blood band neutrophils/100 leukocytes 30 % NRG Manual blood lymphocytes/100 leukocytes 23 % NRG Manual eosinophils/100 leukocytes in nose 1 % NRG Blood erythrocyte morphology finding identification NORMAL NRG Manual blood metamyelocytes/100 leukocytes 4 % NRG Blood lactic acid measurement (moles/vol ume) - 09/13/17 13:40 Blood lactic acid measurement (moles/volume) 0.93 mmol/L 0.50-2.00 Blood lactic acid measurement (moles/vol ume) - 09/13/17 15:00 Blood lactic acid measurement (moles/volume) 0.84 mmol/L 0.50-2.00 Complete urinalysis with reflex to cultu re - 09/13/17 15:00 Urine color determination YELLOW NRG Urine clarity determination SLIGHTLY CLOUDY NRG Urine pH measurement by test strip 5 5-9 Specific gravity of urine by test strip 1.015 1.016-1.022 Urine protein assay by test strip, semi-quantitative 2+ NEGATIVE Urine glucose detection by automated test strip NE GATIVE NEGATIVE Erythrocytes detection in urine sediment by light micr oscopy 2+ NEGATIVE Urine ketones detection by automated test strip NE GATIVE NEGATIVE Urine nitrite detection by test strip NEGATIVE NEGATIVE Urine total bilirubin detection by test strip NEGA TIVE NEGATIVE Urine urobilinogen measurement by automated test strip (mass/volume) NORMAL NORMAL Urine leukocyte esterase detection by dipstick NEG ATIVE NEGATIVE Automated urine sediment erythrocyte cou nt by microscopy (number/high power field) [HPF] NRG Automated urine sediment leukocyte count by microscopy (number/high power field) [HPF] NRG Bacteria detection in urine sediment by light microsco py NEGATIVE NRG Squamous epithelial cells detection in u rine sediment by light microscopy 0-2 NRG Crystals detection in urine sediment by light microsco py PRESENT NRG Casts detection in urine sediment by light microscopy NONE NRG Mucus detection in urine sediment by light microscopy NEGATIVE NRG Complete urinalysis with reflex to culture NO NRG Amorphous sediment detection in urine sediment by ligh t microscopy FEW SHERRY URATES NRG Bacterial blood culture - 09/13/17 15:00 Bacterial blood culture NG NRG Bacterial blood culture - 09/13/17 15:10 Bacterial blood culture NG NRG Methicillin resistant Staphylococcus aur eus (MRSA) screening culture - 09/13/17 15:10 Methicillin resistant Staphylococcus aureus (MRSA) scr eening culture NEG NRG Bacterial blood culture - 09/13/17 15:15 Bacterial blood culture NG NRG Arterial blood gas measurement - 8 16:15 Blood pCO2 33 mm[Hg] 35-45 Blood pO2 73 mm[Hg] 79-93 Arterial blood bicarbonate measurement (moles/volume) 17 mmol/L 23-27 Arterial blood base excess by calculation -8.2 mmo l/L -2.5-2.5 Arterial blood oxygen saturation measurement 97 % 94-100 * Inhaled oxygen flow rate 35% NRG Arterial blood pH measurement with patient temperature correction 7.32 7.37-7.43 Arterial blood carbon dioxide, total measurement (mole s/volume) 17.8 mmol/L 21.0-31.0 Body site L RAD NRG Assessment of wrist artery patency prior to arterial p uncture YES-POS NRG Setting of ventilation mode NO NR G Measurement of body temperature 97.5 NRG Capillary blood glucose measurement by g lucometer (mass/volume) - 09/13/17 18:13 Capillary blood glucose measurement by glucometer (mas s/volume) 118 mg/dL 70-110 Arterial blood gas measurement - 8 20:10 Blood pCO2 33 mm[Hg] 35-45 Blood pO2 115 mm[Hg] 79-93 Arterial blood bicarbonate measurement (moles/volume) 18 mmol/L 23-27 Arterial blood base excess by calculation -6.3 mmo l/L -2.5-2.5 Arterial blood oxygen saturation measurement 100 % 94-100 * Inhaled oxygen flow rate 35% NRG Arterial blood pH measurement with patient temperature correction 7.36 7.37-7.43 Arterial blood carbon dioxide, total measurement (mole s/volume) 19.3 mmol/L 21.0-31.0 Body site R RAD NRG Assessment of wrist artery patency prior to arterial p uncture NA NRG Setting of ventilation mode NO NR G Measurement of body temperature 97.6 NRG Capillary blood glucose measurement by g lucometer (mass/volume) - 09/14/17 00:26 Capillary blood glucose measurement by glucometer (mas s/volume) 171 mg/dL 70-110 Complete blood count (CBC) with automate d white blood cell (WBC) differential - 09/14/17 02:55 Blood leukocytes automated count (number/volume) 6.2 10*3/uL 4.3-11.0 Blood erythrocytes automated count (number/volume) 2.67 10*6/uL 4.35-5.85 Venous blood hemoglobin measurement (mass/volume) 9.0 g/dL 11.5-16.0 Blood hematocrit (volume fraction) 26 % 35-52 Automated erythrocyte mean corpuscular volume 99 [ foz_us] 80-99 Automated erythrocyte mean corpuscular h emoglobin (mass per erythrocyte) 34 pg 25-34 Automated erythrocyte mean corpuscular h emoglobin concentration measurement (mass/volume) 34 g/dL 32-36 Automated erythrocyte distribution width ratio 14. 3 % 10.0- 14.5 Automated blood platelet count (count/volume) 175 10*3/uL 130-400 Automated blood platelet mean volume measurement 9.6 [foz_us] 7.4-10.4 Automated blood neutrophils/100 leukocytes 82 % 42-75 Automated blood lymphocytes/100 leukocytes 5 % 12-44 Blood monocytes/100 leukocytes 13 % 0-12 Automated blood eosinophils/100 leukocytes 1 % 0-10 Automated blood basophils/100 leukocytes 0 % 0-10 Blood neutrophils automated count (number/volume) 5.1 10*3 1.8-7.8 Blood lymphocytes automated count (number/volume) 0.3 10*3 1.0-4.0 Blood monocytes automated count (number/volume) 0. 8 10*3 0.0-1.0 Automated eosinophil count 0.0 10*3/uL 0 .0-0.3 Automated blood basophil count (count/volume) 0.0 10*3/uL 0.0-0.1 Whole blood basic metabolic panel - 08/22 12/05 02:55 Serum or plasma sodium measurement (moles/volume) 147 mmol/L 135-145 Serum or plasma potassium measurement (moles/volume) 3.7 mmol/L 3.6-5.0 Serum or plasma chloride measurement (moles/volume) 113 mmol/L 98-107 Carbon dioxide 20 mmol/L 21-32 Serum or plasma anion gap determination (moles/volume) 14 mmol/L 5-14 Serum or plasma urea nitrogen measurement (mass/volume ) 20 mg/dL 7-18 Serum or plasma creatinine measurement (mass/volume) 0.85 mg/dL 0.60-1.30 Serum or plasma urea nitrogen/creatinine mass ratio 24 NRG Serum or plasma creatinine measurement w ith calculation of estimated glomerular filtration rate > NRG Serum or plasma glucose measurement (mass/volume) 199 mg/dL 70-105 Serum or plasma calcium measurement (mass/volume) 8.4 mg/dL 8.5-10.1 Serum or plasma phosphate measurement (m ass/volume) - 09/14/17 02:55 Serum or plasma phosphate measurement (mass/volume) 2.6 mg/dL 2.3-4.7 Magnesium - 09/14/17 02:55 Magnesium 1.4 mg/dL 1.8-2.4 Arterial blood gas measurement - 8 03:25 Blood pCO2 40 mm[Hg] 35-45 Blood pO2 74 mm[Hg] 79-93 Arterial blood bicarbonate measurement (moles/volume) 24 mmol/L 23-27 Arterial blood base excess by calculation -0.7 mmo l/L -2.5-2.5 Arterial blood oxygen saturation measurement 97 % 94-100 * Inhaled oxygen flow rate 35% NRG Arterial blood pH measurement with patient temperature correction 7.39 7.37-7.43 Arterial blood carbon dioxide, total measurement (mole s/volume) 24.9 mmol/L 21.0-31.0 Body site RIGHT RADIAL NRG Assessment of wrist artery patency prior to arterial p uncture YES-POS NRG Setting of ventilation mode NO NR G Measurement of body temperature 98.2 NRG Capillary blood glucose measurement by g lucometer (mass/volume) - 09/14/17 05:13 Capillary blood glucose measurement by glucometer (mas s/volume) 192 mg/dL 70-110 Serum or plasma lithium measurement (mol es/volume) - 09/14/17 08:30 BNP level 453.5 pg/mL <100.0 Capillary blood glucose measurement by g lucometer (mass/volume) - 09/14/17 11:17 Capillary blood glucose measurement by glucometer (mas s/volume) 193 mg/dL 70-110 Arterial blood gas measurement - 8 16:10 Blood pCO2 43 mm[Hg] 35-45 Blood pO2 64 mm[Hg] 79-93 Arterial blood bicarbonate measurement (moles/volume) 30 mmol/L 23-27 Arterial blood base excess by calculation 5.5 mmol /L -2.5-2.5 Arterial blood oxygen saturation measurement 95 % 94-100 * Inhaled oxygen flow rate 45% NRG Arterial blood pH measurement with patient temperature correction 7.45 7.37-7.43 Arterial blood carbon dioxide, total measurement (mole s/volume) 31.0 mmol/L 21.0-31.0 Body site R RAD NRG Assessment of wrist artery patency prior to arterial p uncture YES-POS NRG Setting of ventilation mode NO NR G Measurement of body temperature 97.1 NRG Complete blood count (CBC) with automate d white blood cell (WBC) differential - 09/14/17 17:20 Blood leukocytes automated count (number/volume) 9.1 10*3/uL 4.3-11.0 Blood erythrocytes automated count (number/volume) 2.82 10*6/uL 4.35-5.85 Venous blood hemoglobin measurement (mass/volume) 9.5 g/dL 11.5-16.0 Blood hematocrit (volume fraction) 28 % 35-52 Automated erythrocyte mean corpuscular volume 98 [ foz_us] 80-99 Automated erythrocyte mean corpuscular h emoglobin (mass per erythrocyte) 34 pg 25-34 Automated erythrocyte mean corpuscular h emoglobin concentration measurement (mass/volume) 34 g/dL 32-36 Automated erythrocyte distribution width ratio 14. 1 % 10.0- 14.5 Automated blood platelet count (count/volume) 164 10*3/uL 130-400 Automated blood platelet mean volume measurement 10.1 [foz_us] 7.4-10.4 Automated blood neutrophils/100 leukocytes 88 % 42-75 Automated blood lymphocytes/100 leukocytes 3 % 12-44 Blood monocytes/100 leukocytes 8 % 0-12 Automated blood eosinophils/100 leukocytes 0 % 0-10 Automated blood basophils/100 leukocytes 1 % 0-10 Blood neutrophils automated count (number/volume) 8.0 10*3 1.8-7.8 Blood lymphocytes automated count (number/volume) 0.3 10*3 1.0-4.0 Blood monocytes automated count (number/volume) 0. 7 10*3 0.0-1.0 Automated eosinophil count 0.0 10*3/uL 0 .0-0.3 Automated blood basophil count (count/volume) 0.1 10*3/uL 0.0-0.1 Comprehensive metabolic panel - 09/14/17 17:20 Serum or plasma sodium measurement (moles/volume) 146 mmol/L 135-145 Serum or plasma potassium measurement (moles/volume) 2.9 mmol/L 3.6-5.0 Serum or plasma chloride measurement (moles/volume) 107 mmol/L 98-107 Carbon dioxide 26 mmol/L 21-32 Serum or plasma anion gap determination (moles/volume) 13 mmol/L 5-14 Serum or plasma urea nitrogen measurement (mass/volume ) 17 mg/dL 7-18 Serum or plasma creatinine measurement (mass/volume) 0.87 mg/dL 0.60-1.30 Serum or plasma urea nitrogen/creatinine mass ratio 20 NRG Serum or plasma creatinine measurement w ith calculation of estimated glomerular filtration rate > NRG Serum or plasma glucose measurement (mass/volume) 187 mg/dL 70-105 Serum or plasma calcium measurement (mass/volume) 8.3 mg/dL 8.5-10.1 Serum or plasma total bilirubin measurement (mass/volu me) 0.7 mg/dL 0.1-1.0 Serum or plasma alkaline phosphatase mitzy surement (enzymatic activity/volume) 74 U/L 40-136 Serum or plasma aspartate aminotransfera se measurement (enzymatic activity/volume) 17 U/L 5-34 Serum or plasma alanine aminotransferase measurement (enzymatic activity/volume) 21 U/L 0-55 Serum or plasma protein measurement (mass/volume) 5.5 g/dL 6.4-8.2 Serum or plasma albumin measurement (mass/volume) 2.5 g/dL 3.2-4.5 Ammonia - 09/14/17 17:20 Ammonia 22 umol/L 11-32 Serum or plasma troponin i.cardiac measu rement (mass/volume) - 09/14/17 19:45 Serum or plasma troponin i.cardiac measurement (mass/v olume) < ng/mL <0.30 Magnesium - 09/14/17 19:45 Magnesium 1.6 mg/dL 1.8-2.4 Capillary blood glucose measurement by g lucometer (mass/volume) - 09/15/17 00:10 Capillary blood glucose measurement by glucometer (mas s/volume) 256 mg/dL 70-110 Arterial blood gas measurement - 8 03:25 Blood pCO2 41 mm[Hg] 35-45 Blood pO2 61 mm[Hg] 79-93 Arterial blood bicarbonate measurement (moles/volume) 28 mmol/L 23-27 Arterial blood base excess by calculation 3.5 mmol /L -2.5-2.5 Arterial blood oxygen saturation measurement 94 % 94-100 * Inhaled oxygen flow rate 50% NRG Arterial blood pH measurement with patient temperature correction 7.44 7.37-7.43 Arterial blood carbon dioxide, total measurement (mole s/volume) 28.8 mmol/L 21.0-31.0 Body site RIGHT RADIAL NRG Assessment of wrist artery patency prior to arterial p uncture YES-POS NRG Setting of ventilation mode NO NR G Measurement of body temperature 98.1 NRG Complete blood count (CBC) with automate d white blood cell (WBC) differential - 09/15/17 03:35 Blood leukocytes automated count (number/volume) 10.9 10*3/uL 4.3-11.0 Blood erythrocytes automated count (number/volume) 2.83 10*6/uL 4.35-5.85 Venous blood hemoglobin measurement (mass/volume) 9.5 g/dL 11.5-16.0 Blood hematocrit (volume fraction) 28 % 35-52 Automated erythrocyte mean corpuscular volume 99 [ foz_us] 80-99 Automated erythrocyte mean corpuscular h emoglobin (mass per erythrocyte) 34 pg 25-34 Automated erythrocyte mean corpuscular h emoglobin concentration measurement (mass/volume) 34 g/dL 32-36 Automated erythrocyte distribution width ratio 14. 2 % 10.0- 14.5 Automated blood platelet count (count/volume) 174 10*3/uL 130-400 Automated blood platelet mean volume measurement 10.2 [foz_us] 7.4-10.4 Automated blood neutrophils/100 leukocytes 92 % 42-75 Automated blood lymphocytes/100 leukocytes 2 % 12-44 Blood monocytes/100 leukocytes 6 % 0-12 Automated blood eosinophils/100 leukocytes 0 % 0-10 Automated blood basophils/100 leukocytes 0 % 0-10 Blood neutrophils automated count (number/volume) 10.0 10*3 1.8-7.8 Blood lymphocytes automated count (number/volume) 0.3 10*3 1.0-4.0 Blood monocytes automated count (number/volume) 0. 6 10*3 0.0-1.0 Automated eosinophil count 0.0 10*3/uL 0 .0-0.3 Automated blood basophil count (count/volume) 0.0 10*3/uL 0.0-0.1 Comprehensive metabolic panel - 09/15/17 03:35 Serum or plasma sodium measurement (moles/volume) 145 mmol/L 135-145 Serum or plasma potassium measurement (moles/volume) 3.7 mmol/L 3.6-5.0 Serum or plasma chloride measurement (moles/volume) 109 mmol/L 98-107 Carbon dioxide 23 mmol/L 21-32 Serum or plasma anion gap determination (moles/volume) 13 mmol/L 5-14 Serum or plasma urea nitrogen measurement (mass/volume ) 17 mg/dL 7-18 Serum or plasma creatinine measurement (mass/volume) 0.88 mg/dL 0.60-1.30 Serum or plasma urea nitrogen/creatinine mass ratio 19 NRG Serum or plasma creatinine measurement w ith calculation of estimated glomerular filtration rate > NRG Serum or plasma glucose measurement (mass/volume) 238 mg/dL 70-105 Serum or plasma calcium measurement (mass/volume) 8.1 mg/dL 8.5-10.1 Serum or plasma total bilirubin measurement (mass/volu me) 0.6 mg/dL 0.1-1.0 Serum or plasma alkaline phosphatase mitzy surement (enzymatic activity/volume) 86 U/L 40-136 Serum or plasma aspartate aminotransfera se measurement (enzymatic activity/volume) 20 U/L 5-34 Serum or plasma alanine aminotransferase measurement (enzymatic activity/volume) 23 U/L 0-55 Serum or plasma protein measurement (mass/volume) 5.5 g/dL 6.4-8.2 Serum or plasma albumin measurement (mass/volume) 2.6 g/dL 3.2-4.5 Serum or plasma phosphate measurement (m ass/volume) - 09/15/17 03:35 Serum or plasma phosphate measurement (mass/volume) 1.7 mg/dL 2.3-4.7 Magnesium - 09/15/17 03:35 Magnesium 2.3 mg/dL 1.8-2.4 Sputum Gram stain - 09/15/17 07:00 Sputum Gram stain Moderate # WBC's, mixed bacteria l shannan NRG Bacterial sputum culture - 09/15/17 07:0 0 Bacterial sputum culture NORMAL NRG Capillary blood glucose measurement by g lucometer (mass/volume) - 09/15/17 11:36 Capillary blood glucose measurement by glucometer (mas s/volume) 175 mg/dL 70-110 Capillary blood glucose measurement by g lucometer (mass/volume) - 09/15/17 18:17 Capillary blood glucose measurement by glucometer (mas s/volume) 203 mg/dL 70-110 Capillary blood glucose measurement by g lucometer (mass/volume) - 09/15/17 23:52 Capillary blood glucose measurement by glucometer (mas s/volume) 185 mg/dL 70-110 Complete blood count (CBC) with automate d white blood cell (WBC) differential - 09/16/17 03:10 Blood leukocytes automated count (number/volume) 6.3 10*3/uL 4.3-11.0 Blood erythrocytes automated count (number/volume) 2.62 10*6/uL 4.35-5.85 Venous blood hemoglobin measurement (mass/volume) 8.8 g/dL 11.5-16.0 Blood hematocrit (volume fraction) 27 % 35-52 Automated erythrocyte mean corpuscular volume 102 [foz_us] 80-99 Automated erythrocyte mean corpuscular h emoglobin (mass per erythrocyte) 34 pg 25-34 Automated erythrocyte mean corpuscular h emoglobin concentration measurement (mass/volume) 33 g/dL 32-36 Automated erythrocyte distribution width ratio 14. 9 % 10.0- 14.5 Automated blood platelet count (count/volume) 160 10*3/uL 130-400 Automated blood platelet mean volume measurement 10.6 [foz_us] 7.4-10.4 Automated blood neutrophils/100 leukocytes 90 % 42-75 Automated blood lymphocytes/100 leukocytes 4 % 12-44 Blood monocytes/100 leukocytes 6 % 0-12 Automated blood eosinophils/100 leukocytes 0 % 0-10 Automated blood basophils/100 leukocytes 0 % 0-10 Blood neutrophils automated count (number/volume) 5.7 10*3 1.8-7.8 Blood lymphocytes automated count (number/volume) 0.3 10*3 1.0-4.0 Blood monocytes automated count (number/volume) 0. 4 10*3 0.0-1.0 Automated eosinophil count 0.0 10*3/uL 0 .0-0.3 Automated blood basophil count (count/volume) 0.0 10*3/uL 0.0-0.1 Whole blood basic metabolic panel - 08/22 02/04 03:10 Serum or plasma sodium measurement (moles/volume) 143 mmol/L 135-145 Serum or plasma potassium measurement (moles/volume) 3.7 mmol/L 3.6-5.0 Serum or plasma chloride measurement (moles/volume) 110 mmol/L 98-107 Carbon dioxide 24 mmol/L 21-32 Serum or plasma anion gap determination (moles/volume) 9 mmol/L 5-14 Serum or plasma urea nitrogen measurement (mass/volume ) 14 mg/dL 7-18 Serum or plasma creatinine measurement (mass/volume) 0.79 mg/dL 0.60-1.30 Serum or plasma urea nitrogen/creatinine mass ratio 18 NRG Serum or plasma creatinine measurement w ith calculation of estimated glomerular filtration rate > NRG Serum or plasma glucose measurement (mass/volume) 184 mg/dL 70-105 Serum or plasma calcium measurement (mass/volume) 7.7 mg/dL 8.5-10.1 Serum or plasma phosphate measurement (m ass/volume) - 09/16/17 03:10 Serum or plasma phosphate measurement (mass/volume) 3.7 mg/dL 2.3-4.7 Magnesium - 09/16/17 03:10 Magnesium 1.9 mg/dL 1.8-2.4 Arterial blood gas measurement - 8 03:25 Blood pCO2 43 mm[Hg] 35-45 Blood pO2 53 mm[Hg] 79-93 Arterial blood bicarbonate measurement (moles/volume) 26 mmol/L 23-27 Arterial blood base excess by calculation 2.1 mmol /L -2.5-2.5 Arterial blood oxygen saturation measurement 88 % 94-100 * Inhaled oxygen flow rate 50% NRG Arterial blood pH measurement with patient temperature correction 7.41 7.37-7.43 Arterial blood carbon dioxide, total measurement (mole s/volume) 27.6 mmol/L 21.0-31.0 Body site RIGHT RADIAL NRG Assessment of wrist artery patency prior to arterial p uncture YES-POS NRG Setting of ventilation mode YES NR G Measurement of body temperature 98.9 NRG Capillary blood glucose measurement by g lucometer (mass/volume) - 09/16/17 12:48 Capillary blood glucose measurement by glucometer (mas s/volume) 170 mg/dL 70-110 Capillary blood glucose measurement by g lucometer (mass/volume) - 09/16/17 18:24 Capillary blood glucose measurement by glucometer (mas s/volume) 196 mg/dL 70-110 Capillary blood glucose measurement by g lucometer (mass/volume) - 09/16/17 23:45 Capillary blood glucose measurement by glucometer (mas s/volume) 188 mg/dL 70-110 Complete blood count (CBC) with automate d white blood cell (WBC) differential - 09/17/17 03:20 Blood leukocytes automated count (number/volume) 5.2 10*3/uL 4.3-11.0 Blood erythrocytes automated count (number/volume) 2.62 10*6/uL 4.35-5.85 Venous blood hemoglobin measurement (mass/volume) 8.9 g/dL 11.5-16.0 Blood hematocrit (volume fraction) 27 % 35-52 Automated erythrocyte mean corpuscular volume 102 [foz_us] 80-99 Automated erythrocyte mean corpuscular h emoglobin (mass per erythrocyte) 34 pg 25-34 Automated erythrocyte mean corpuscular h emoglobin concentration measurement (mass/volume) 33 g/dL 32-36 Automated erythrocyte distribution width ratio 14. 9 % 10.0- 14.5 Automated blood platelet count (count/volume) 165 10*3/uL 130-400 Automated blood platelet mean volume measurement 10.5 [foz_us] 7.4-10.4 Automated blood neutrophils/100 leukocytes 87 % 42-75 Automated blood lymphocytes/100 leukocytes 5 % 12-44 Blood monocytes/100 leukocytes 7 % 0-12 Automated blood eosinophils/100 leukocytes 0 % 0-10 Automated blood basophils/100 leukocytes 0 % 0-10 Blood neutrophils automated count (number/volume) 4.5 10*3 1.8-7.8 Blood lymphocytes automated count (number/volume) 0.3 10*3 1.0-4.0 Blood monocytes automated count (number/volume) 0. 4 10*3 0.0-1.0 Automated eosinophil count 0.0 10*3/uL 0 .0-0.3 Automated blood basophil count (count/volume) 0.0 10*3/uL 0.0-0.1 Arterial blood gas measurement - 8 03:20 Blood pCO2 42 mm[Hg] 35-45 Blood pO2 80 mm[Hg] 79-93 Arterial blood bicarbonate measurement (moles/volume) 25 mmol/L 23-27 Arterial blood base excess by calculation 0.3 mmol /L -2.5-2.5 Arterial blood oxygen saturation measurement 97 % 94-100 * Inhaled oxygen flow rate 50% NRG Arterial blood pH measurement with patient temperature correction 7.39 7.37-7.43 Arterial blood carbon dioxide, total measurement (mole s/volume) 26.1 mmol/L 21.0-31.0 Body site LEFT RADIAL NRG Assessment of wrist artery patency prior to arterial p uncture YES-POS NRG Setting of ventilation mode YES NR G Measurement of body temperature 97.8 NRG Whole blood basic metabolic panel - 08/22 03/07 03:20 Serum or plasma sodium measurement (moles/volume) 140 mmol/L 135-145 Serum or plasma potassium measurement (moles/volume) 3.7 mmol/L 3.6-5.0 Serum or plasma chloride measurement (moles/volume) 108 mmol/L 98-107 Carbon dioxide 21 mmol/L 21-32 Serum or plasma anion gap determination (moles/volume) 11 mmol/L 5-14 Serum or plasma urea nitrogen measurement (mass/volume ) 13 mg/dL 7-18 Serum or plasma creatinine measurement (mass/volume) 0.85 mg/dL 0.60-1.30 Serum or plasma urea nitrogen/creatinine mass ratio 15 NRG Serum or plasma creatinine measurement w ith calculation of estimated glomerular filtration rate > NRG Serum or plasma glucose measurement (mass/volume) 195 mg/dL 70-105 Serum or plasma calcium measurement (mass/volume) 7.6 mg/dL 8.5-10.1 Serum or plasma phosphate measurement (m ass/volume) - 09/17/17 03:20 Serum or plasma phosphate measurement (mass/volume) 3.5 mg/dL 2.3-4.7 Magnesium - 09/17/17 03:20 Magnesium 1.7 mg/dL 1.8-2.4 Sputum Gram stain - 09/17/17 06:30 GRAM STAIN SPUTUM NO BACTERIA NRG Bacteria identification in bronchial spe cimen by aerobe culture - 09/17/17 06:30 QUANTITY OF GROWTH Scant Growth NRG Bacteria identification in bronchial specimen by aerob e culture [id number] NRG Sputum Gram stain - 09/17/17 06:30 GRAM STAIN SPUTUM NO BACTERIA NRG Bacteria identification in bronchial spe cimen by aerobe culture - 09/17/17 06:30 QUANTITY OF GROWTH Scant Growth NRG Bacteria identification in bronchial specimen by aerob e culture [id number] NRG Sputum Gram stain - 09/17/17 06:30 GRAM STAIN SPUTUM FEW WBC'S, NO BACTERIA NRG Bacteria identification in bronchial spe cimen by aerobe culture - 09/17/17 06:30 QUANTITY OF GROWTH Scant Growth NRG Bacteria identification in bronchial specimen by aerob e culture [id number] NRG Mycobacterium species detection by organ ism specific culture - 09/17/17 06:30 Mycobacterium species detection by organism specific c ulture 4 weeks required for a preliminary negative culture report. NRG Mycobacterium species detection by organ ism specific culture - 09/17/17 06:30 Mycobacterium species detection by organism specific c ulture 4 weeks required for a preliminary negative culture report. NRG Fungus culture - 09/17/17 06:30 QUANTITY OF GROWTH Isolated NRG Fungus culture [id number] NRG Fungus culture - 09/17/17 06:30 QUANTITY OF GROWTH Isolated NRG Fungus culture [id number] NRG Fungus culture - 09/17/17 06:30 QUANTITY OF GROWTH Isolated NRG Fungus culture [id number] NRG IDENTIFICATION TO FOLLOW REFER TO [id number] NRG Capillary blood glucose measurement by g lucometer (mass/volume) - 09/17/17 11:30 Capillary blood glucose measurement by glucometer (mas s/volume) 164 mg/dL 70-110 Capillary blood glucose measurement by g lucometer (mass/volume) - 09/17/17 17:53 Capillary blood glucose measurement by glucometer (mas s/volume) 165 mg/dL 70-110 Capillary blood glucose measurement by g lucometer (mass/volume) - 09/18/17 00:00 Capillary blood glucose measurement by glucometer (mas s/volume) 184 mg/dL 70-110 Complete blood count (CBC) with automate d white blood cell (WBC) differential - 09/18/17 03:00 Blood leukocytes automated count (number/volume) 4.6 10*3/uL 4.3-11.0 Blood erythrocytes automated count (number/volume) 3.11 10*6/uL 4.35-5.85 Venous blood hemoglobin measurement (mass/volume) 10.4 g/dL 11.5-16.0 Blood hematocrit (volume fraction) 31 % 35-52 Automated erythrocyte mean corpuscular volume 101 [foz_us] 80-99 Automated erythrocyte mean corpuscular h emoglobin (mass per erythrocyte) 33 pg 25-34 Automated erythrocyte mean corpuscular h emoglobin concentration measurement (mass/volume) 33 g/dL 32-36 Automated erythrocyte distribution width ratio 14. 4 % 10.0- 14.5 Automated blood platelet count (count/volume) 162 10*3/uL 130-400 Automated blood platelet mean volume measurement 10.8 [foz_us] 7.4-10.4 Automated blood neutrophils/100 leukocytes 89 % 42-75 Automated blood lymphocytes/100 leukocytes 5 % 12-44 Blood monocytes/100 leukocytes 6 % 0-12 Automated blood eosinophils/100 leukocytes 0 % 0-10 Automated blood basophils/100 leukocytes 0 % 0-10 Blood neutrophils automated count (number/volume) 4.1 10*3 1.8-7.8 Blood lymphocytes automated count (number/volume) 0.2 10*3 1.0-4.0 Blood monocytes automated count (number/volume) 0. 3 10*3 0.0-1.0 Automated eosinophil count 0.0 10*3/uL 0 .0-0.3 Automated blood basophil count (count/volume) 0.0 10*3/uL 0.0-0.1 Whole blood basic metabolic panel - 03/0 08/07 03:00 Serum or plasma sodium measurement (moles/volume) 140 mmol/L 135-145 Serum or plasma potassium measurement (moles/volume) 3.4 mmol/L 3.6-5.0 Serum or plasma chloride measurement (moles/volume) 105 mmol/L 98-107 Carbon dioxide 19 mmol/L 21-32 Serum or plasma anion gap determination (moles/volume) 16 mmol/L 5-14 Serum or plasma urea nitrogen measurement (mass/volume ) 16 mg/dL 7-18 Serum or plasma creatinine measurement (mass/volume) 1.03 mg/dL 0.60-1.30 Serum or plasma urea nitrogen/creatinine mass ratio 16 NRG Serum or plasma creatinine measurement w ith calculation of estimated glomerular filtration rate 53 NRG Serum or plasma glucose measurement (mass/volume) 231 mg/dL 70-105 Serum or plasma calcium measurement (mass/volume) 7.8 mg/dL 8.5-10.1 Serum or plasma phosphate measurement (m ass/volume) - 09/18/17 03:00 Serum or plasma phosphate measurement (mass/volume) 3.5 mg/dL 2.3-4.7 Magnesium - 09/18/17 03:00 Magnesium 1.6 mg/dL 1.8-2.4 Arterial blood gas measurement - 8 03:14 Blood pCO2 37 mm[Hg] 35-45 Blood pO2 76 mm[Hg] 79-93 Arterial blood bicarbonate measurement (moles/volume) 25 mmol/L 23-27 Arterial blood base excess by calculation 1.3 mmol /L -2.5-2.5 Arterial blood oxygen saturation measurement 97 % 94-100 * Inhaled oxygen flow rate 35% FIO2 NRG Arterial blood pH measurement with patient temperature correction 7.45 7.37-7.43 Arterial blood carbon dioxide, total measurement (mole s/volume) 26.2 mmol/L 21.0-31.0 Body site R RAD NRG Assessment of wrist artery patency prior to arterial p uncture YES-POS NRG Setting of ventilation mode YES NR G Measurement of body temperature 97.6 NRG Arterial blood gas measurement - 8 10:23 Blood pCO2 39 mm[Hg] 35-45 Blood pO2 69 mm[Hg] 79-93 Arterial blood bicarbonate measurement (moles/volume) 26 mmol/L 23-27 Arterial blood base excess by calculation 2.4 mmol /L -2.5-2.5 Arterial blood oxygen saturation measurement 96 % 94-100 * Inhaled oxygen flow rate 35% NRG Arterial blood pH measurement with patient temperature correction 7.44 7.37-7.43 Arterial blood carbon dioxide, total measurement (mole s/volume) 27.6 mmol/L 21.0-31.0 Body site RT RAD NRG Assessment of wrist artery patency prior to arterial p uncture YES-POS NRG Setting of ventilation mode YES NR G Measurement of body temperature 96.7 NRG Capillary blood glucose measurement by g lucometer (mass/volume) - 09/18/17 11:52 Capillary blood glucose measurement by glucometer (mas s/volume) 187 mg/dL 70-110 Capillary blood glucose measurement by g lucometer (mass/volume) - 09/18/17 17:23 Capillary blood glucose measurement by glucometer (mas s/volume) 118 mg/dL 70-110 Capillary blood glucose measurement by g lucometer (mass/volume) - 09/18/17 23:10 Capillary blood glucose measurement by glucometer (mas s/volume) 114 mg/dL 70-110 Complete blood count (CBC) with automate d white blood cell (WBC) differential - 09/19/17 03:00 Blood leukocytes automated count (number/volume) 5.8 10*3/uL 4.3-11.0 Blood erythrocytes automated count (number/volume) 3.13 10*6/uL 4.35-5.85 Venous blood hemoglobin measurement (mass/volume) 10.5 g/dL 11.5-16.0 Blood hematocrit (volume fraction) 32 % 35-52 Automated erythrocyte mean corpuscular volume 102 [foz_us] 80-99 Automated erythrocyte mean corpuscular h emoglobin (mass per erythrocyte) 34 pg 25-34 Automated erythrocyte mean corpuscular h emoglobin concentration measurement (mass/volume) 33 g/dL 32-36 Automated erythrocyte distribution width ratio 14. 6 % 10.0- 14.5 Automated blood platelet count (count/volume) 171 10*3/uL 130-400 Automated blood platelet mean volume measurement 10.3 [foz_us] 7.4-10.4 Automated blood neutrophils/100 leukocytes 89 % 42-75 Automated blood lymphocytes/100 leukocytes 5 % 12-44 Blood monocytes/100 leukocytes 5 % 0-12 Automated blood eosinophils/100 leukocytes 0 % 0-10 Automated blood basophils/100 leukocytes 1 % 0-10 Blood neutrophils automated count (number/volume) 5.2 10*3 1.8-7.8 Blood lymphocytes automated count (number/volume) 0.3 10*3 1.0-4.0 Blood monocytes automated count (number/volume) 0. 3 10*3 0.0-1.0 Automated eosinophil count 0.0 10*3/uL 0 .0-0.3 Automated blood basophil count (count/volume) 0.0 10*3/uL 0.0-0.1 Whole blood basic metabolic panel - 03/0 2/18 03:00 Serum or plasma sodium measurement (moles/volume) 147 mmol/L 135-145 Serum or plasma potassium measurement (moles/volume) 4.7 mmol/L 3.6-5.0 Serum or plasma chloride measurement (moles/volume) 105 mmol/L 98-107 Carbon dioxide 28 mmol/L 21-32 Serum or plasma anion gap determination (moles/volume) 14 mmol/L 5-14 Serum or plasma urea nitrogen measurement (mass/volume ) 21 mg/dL 7-18 Serum or plasma creatinine measurement (mass/volume) 1.11 mg/dL 0.60-1.30 Serum or plasma urea nitrogen/creatinine mass ratio 19 NRG Serum or plasma creatinine measurement w ith calculation of estimated glomerular filtration rate 49 NRG Serum or plasma glucose measurement (mass/volume) 140 mg/dL 70-105 Serum or plasma calcium measurement (mass/volume) 7.8 mg/dL 8.5-10.1 Serum or plasma phosphate measurement (m ass/volume) - 09/19/17 03:00 Serum or plasma phosphate measurement (mass/volume) 4.1 mg/dL 2.3-4.7 Magnesium - 09/19/17 03:00 Magnesium 1.9 mg/dL 1.8-2.4 Serum or plasma lithium measurement (mol es/volume) - 09/19/17 03:00 BNP level 86.4 pg/mL <100.0 Arterial blood gas measurement - 8 03:10 Blood pCO2 50 mm[Hg] 35-45 Blood pO2 93 mm[Hg] 79-93 Arterial blood bicarbonate measurement (moles/volume) 33 mmol/L 23-27 Arterial blood base excess by calculation 8.6 mmol /L -2.5-2.5 Arterial blood oxygen saturation measurement 98 % 94-100 * Inhaled oxygen flow rate 40% BIPAP NR G Arterial blood pH measurement with patient temperature correction 7.44 7.37-7.43 Arterial blood carbon dioxide, total measurement (mole s/volume) 34.7 mmol/L 21.0-31.0 Body site R RAD NRG Assessment of wrist artery patency prior to arterial p uncture YES-POS NRG Setting of ventilation mode YES NR G Measurement of body temperature 98.0 NRG Capillary blood glucose measurement by g lucometer (mass/volume) - 09/19/17 11:13 Capillary blood glucose measurement by glucometer (mas s/volume) 151 mg/dL 70-110 Capillary blood glucose measurement by g lucometer (mass/volume) - 09/19/17 16:25 Capillary blood glucose measurement by glucometer (mas s/volume) 125 mg/dL 70-110 Capillary blood glucose measurement by g lucometer (mass/volume) - 09/19/17 20:57 Capillary blood glucose measurement by glucometer (mas s/volume) 107 mg/dL 70-110 Arterial blood gas measurement - 8 03:30 Blood pCO2 45 mm[Hg] 35-45 Blood pO2 70 mm[Hg] 79-93 Arterial blood bicarbonate measurement (moles/volume) 35 mmol/L 23-27 Arterial blood base excess by calculation 11.3 mmo l/L -2.5-2.5 Arterial blood oxygen saturation measurement 96 % 94-100 * Inhaled oxygen flow rate 40% BIPAP NR G Arterial blood pH measurement with patient temperature correction 7.50 7.37-7.43 Arterial blood carbon dioxide, total measurement (mole s/volume) 36.7 mmol/L 21.0-31.0 Body site R RAD NRG Assessment of wrist artery patency prior to arterial p uncture YES-POS NRG Setting of ventilation mode NO NR G Measurement of body temperature 97.6 NRG Complete blood count (CBC) with automate d white blood cell (WBC) differential - 09/20/17 03:30 Blood leukocytes automated count (number/volume) 5.3 10*3/uL 4.3-11.0 Blood erythrocytes automated count (number/volume) 3.41 10*6/uL 4.35-5.85 Venous blood hemoglobin measurement (mass/volume) 11.4 g/dL 11.5-16.0 Blood hematocrit (volume fraction) 36 % 35-52 Automated erythrocyte mean corpuscular volume 105 [foz_us] 80-99 Automated erythrocyte mean corpuscular h emoglobin (mass per erythrocyte) 33 pg 25-34 Automated erythrocyte mean corpuscular h emoglobin concentration measurement (mass/volume) 32 g/dL 32-36 Automated erythrocyte distribution width ratio 14. 7 % 10.0- 14.5 Automated blood platelet count (count/volume) 165 10*3/uL 130-400 Automated blood platelet mean volume measurement 10.8 [foz_us] 7.4-10.4 Automated blood neutrophils/100 leukocytes 75 % 42-75 Automated blood lymphocytes/100 leukocytes 19 % 12-44 Blood monocytes/100 leukocytes 5 % 0-12 Automated blood eosinophils/100 leukocytes 1 % 0-10 Automated blood basophils/100 leukocytes 1 % 0-10 Blood neutrophils automated count (number/volume) 4.0 10*3 1.8-7.8 Blood lymphocytes automated count (number/volume) 1.0 10*3 1.0-4.0 Blood monocytes automated count (number/volume) 0. 3 10*3 0.0-1.0 Automated eosinophil count 0.0 10*3/uL 0 .0-0.3 Automated blood basophil count (count/volume) 0.0 10*3/uL 0.0-0.1 Whole blood basic metabolic panel - 10/05 03:30 Serum or plasma sodium measurement (moles/volume) 148 mmol/L 135-145 Serum or plasma potassium measurement (moles/volume) 3.5 mmol/L 3.6-5.0 Serum or plasma chloride measurement (moles/volume) 100 mmol/L 98-107 Carbon dioxide 35 mmol/L 21-32 Serum or plasma anion gap determination (moles/volume) 13 mmol/L 5-14 Serum or plasma urea nitrogen measurement (mass/volume ) 31 mg/dL 7-18 Serum or plasma creatinine measurement (mass/volume) 1.25 mg/dL 0.60-1.30 Serum or plasma urea nitrogen/creatinine mass ratio 25 NRG Serum or plasma creatinine measurement w ith calculation of estimated glomerular filtration rate 42 NRG Serum or plasma glucose measurement (mass/volume) 93 mg/dL 70-105 Serum or plasma calcium measurement (mass/volume) 8.1 mg/dL 8.5-10.1 Serum or plasma phosphate measurement (m ass/volume) - 09/20/17 03:30 Serum or plasma phosphate measurement (mass/volume) 4.0 mg/dL 2.3-4.7 Magnesium - 09/20/17 03:30 Magnesium 1.9 mg/dL 1.8-2.4 Capillary blood glucose measurement by g lucometer (mass/volume) - 09/20/17 12:40 Capillary blood glucose measurement by glucometer (mas s/volume) 179 mg/dL 70-110 Capillary blood glucose measurement by g lucometer (mass/volume) - 09/20/17 16:05 Capillary blood glucose measurement by glucometer (mas s/volume) 183 mg/dL 70-110 Capillary blood glucose measurement by g lucometer (mass/volume) - 09/20/17 17:58 Capillary blood glucose measurement by glucometer (mas s/volume) 123 mg/dL 70-110 Capillary blood glucose measurement by g lucometer (mass/volume) - 09/20/17 21:13 Capillary blood glucose measurement by glucometer (mas s/volume) 134 mg/dL 70-110 Complete blood count (CBC) with automate d white blood cell (WBC) differential - 09/21/17 03:15 Blood leukocytes automated count (number/volume) 2.4 10*3/uL 4.3-11.0 Blood erythrocytes automated count (number/volume) 2.80 10*6/uL 4.35-5.85 Venous blood hemoglobin measurement (mass/volume) 9.3 g/dL 11.5-16.0 Blood hematocrit (volume fraction) 30 % 35-52 Automated erythrocyte mean corpuscular volume 106 [foz_us] 80-99 Automated erythrocyte mean corpuscular h emoglobin (mass per erythrocyte) 33 pg 25-34 Automated erythrocyte mean corpuscular h emoglobin concentration measurement (mass/volume) 31 g/dL 32-36 Automated erythrocyte distribution width ratio 14. 5 % 10.0- 14.5 Automated blood platelet count (count/volume) 131 10*3/uL 130-400 Automated blood platelet mean volume measurement 10.9 [foz_us] 7.4-10.4 Automated blood neutrophils/100 leukocytes 80 % 42-75 Automated blood lymphocytes/100 leukocytes 14 % 12-44 Blood monocytes/100 leukocytes 6 % 0-12 Automated blood eosinophils/100 leukocytes 0 % 0-10 Automated blood basophils/100 leukocytes 0 % 0-10 Blood neutrophils automated count (number/volume) 1.9 10*3 1.8-7.8 Blood lymphocytes automated count (number/volume) 0.3 10*3 1.0-4.0 Blood monocytes automated count (number/volume) 0. 1 10*3 0.0-1.0 Automated eosinophil count 0.0 10*3/uL 0 .0-0.3 Automated blood basophil count (count/volume) 0.0 10*3/uL 0.0-0.1 Whole blood basic metabolic panel - 11/05 03:15 Serum or plasma sodium measurement (moles/volume) 142 mmol/L 135-145 Serum or plasma potassium measurement (moles/volume) 3.5 mmol/L 3.6-5.0 Serum or plasma chloride measurement (moles/volume) 100 mmol/L 98-107 Carbon dioxide 29 mmol/L 21-32 Serum or plasma anion gap determination (moles/volume) 13 mmol/L 5-14 Serum or plasma urea nitrogen measurement (mass/volume ) 23 mg/dL 7-18 Serum or plasma creatinine measurement (mass/volume) 0.96 mg/dL 0.60-1.30 Serum or plasma urea nitrogen/creatinine mass ratio 24 NRG Serum or plasma creatinine measurement w ith calculation of estimated glomerular filtration rate 57 NRG Serum or plasma glucose measurement (mass/volume) 165 mg/dL 70-105 Serum or plasma calcium measurement (mass/volume) 7.6 mg/dL 8.5-10.1 Serum or plasma phosphate measurement (m ass/volume) - 09/21/17 03:15 Serum or plasma phosphate measurement (mass/volume) 3.6 mg/dL 2.3-4.7 Magnesium - 09/21/17 03:15 Magnesium 1.6 mg/dL 1.8-2.4 Capillary blood glucose measurement by g lucometer (mass/volume) - 09/21/17 11:39 Capillary blood glucose measurement by glucometer (mas s/volume) 190 mg/dL 70-110 Capillary blood glucose measurement by g lucometer (mass/volume) - 09/21/17 16:13 Capillary blood glucose measurement by glucometer (mas s/volume) 141 mg/dL 70-110 Capillary blood glucose measurement by g lucometer (mass/volume) - 09/21/17 21:03 Capillary blood glucose measurement by glucometer (mas s/volume) 156 mg/dL 70-110 Capillary blood glucose measurement by g lucometer (mass/volume) - 09/22/17 05:40 Capillary blood glucose measurement by glucometer (mas s/volume) 165 mg/dL 70-110 Complete blood count (CBC) with automate d white blood cell (WBC) differential - 09/22/17 06:11 Blood leukocytes automated count (number/volume) 2.7 10*3/uL 4.3-11.0 Blood erythrocytes automated count (number/volume) 2.71 10*6/uL 4.35-5.85 Venous blood hemoglobin measurement (mass/volume) 9.0 g/dL 11.5-16.0 Blood hematocrit (volume fraction) 29 % 35-52 Automated erythrocyte mean corpuscular volume 106 [foz_us] 80-99 Automated erythrocyte mean corpuscular h emoglobin (mass per erythrocyte) 33 pg 25-34 Automated erythrocyte mean corpuscular h emoglobin concentration measurement (mass/volume) 31 g/dL 32-36 Automated erythrocyte distribution width ratio 14. 5 % 10.0- 14.5 Automated blood platelet count (count/volume) 130 10*3/uL 130-400 Automated blood platelet mean volume measurement 10.5 [foz_us] 7.4-10.4 Automated blood neutrophils/100 leukocytes 69 % 42-75 Automated blood lymphocytes/100 leukocytes 21 % 12-44 Blood monocytes/100 leukocytes 9 % 0-12 Automated blood eosinophils/100 leukocytes 1 % 0-10 Automated blood basophils/100 leukocytes 0 % 0-10 Blood neutrophils automated count (number/volume) 1.8 10*3 1.8-7.8 Blood lymphocytes automated count (number/volume) 0.6 10*3 1.0-4.0 Blood monocytes automated count (number/volume) 0. 3 10*3 0.0-1.0 Automated eosinophil count 0.0 10*3/uL 0 .0-0.3 Automated blood basophil count (count/volume) 0.0 10*3/uL 0.0-0.1 Whole blood basic metabolic panel - 12/05 06:11 Serum or plasma sodium measurement (moles/volume) 140 mmol/L 135-145 Serum or plasma potassium measurement (moles/volume) 3.5 mmol/L 3.6-5.0 Serum or plasma chloride measurement (moles/volume) 102 mmol/L 98-107 Carbon dioxide 32 mmol/L 21-32 Serum or plasma anion gap determination (moles/volume) 6 mmol/L 5-14 Serum or plasma urea nitrogen measurement (mass/volume ) 17 mg/dL 7-18 Serum or plasma creatinine measurement (mass/volume) 0.91 mg/dL 0.60-1.30 Serum or plasma urea nitrogen/creatinine mass ratio 19 NRG Serum or plasma creatinine measurement w ith calculation of estimated glomerular filtration rate > NRG Serum or plasma glucose measurement (mass/volume) 124 mg/dL 70-105 Serum or plasma calcium measurement (mass/volume) 7.6 mg/dL 8.5-10.1 Serum or plasma phosphate measurement (m ass/volume) - 09/22/17 06:11 Serum or plasma phosphate measurement (mass/volume) 2.7 mg/dL 2.3-4.7 Magnesium - 09/22/17 06:11 Magnesium 1.9 mg/dL 1.8-2.4 Capillary blood glucose measurement by g lucometer (mass/volume) - 09/22/17 10:48 Capillary blood glucose measurement by glucometer (mas s/volume) 127 mg/dL 70-110 Capillary blood glucose measurement by g lucometer (mass/volume) - 09/22/17 16:03 Capillary blood glucose measurement by glucometer (mas s/volume) 164 mg/dL 70-110 Capillary blood glucose measurement by g lucometer (mass/volume) - 09/22/17 20:13 Capillary blood glucose measurement by glucometer (mas s/volume) 120 mg/dL 70-110 Complete blood count (CBC) with automate d white blood cell (WBC) differential - 09/23/17 05:21 Blood leukocytes automated count (number/volume) 3.3 10*3/uL 4.3-11.0 Blood erythrocytes automated count (number/volume) 2.83 10*6/uL 4.35-5.85 Venous blood hemoglobin measurement (mass/volume) 9.3 g/dL 11.5-16.0 Blood hematocrit (volume fraction) 30 % 35-52 Automated erythrocyte mean corpuscular volume 106 [foz_us] 80-99 Automated erythrocyte mean corpuscular h emoglobin (mass per erythrocyte) 33 pg 25-34 Automated erythrocyte mean corpuscular h emoglobin concentration measurement (mass/volume) 31 g/dL 32-36 Automated erythrocyte distribution width ratio 14. 0 % 10.0- 14.5 Automated blood platelet count (count/volume) 142 10*3/uL 130-400 Automated blood platelet mean volume measurement 10.5 [foz_us] 7.4-10.4 Automated blood neutrophils/100 leukocytes 76 % 42-75 Automated blood lymphocytes/100 leukocytes 15 % 12-44 Blood monocytes/100 leukocytes 9 % 0-12 Automated blood eosinophils/100 leukocytes 0 % 0-10 Automated blood basophils/100 leukocytes 0 % 0-10 Blood neutrophils automated count (number/volume) 2.5 10*3 1.8-7.8 Blood lymphocytes automated count (number/volume) 0.5 10*3 1.0-4.0 Blood monocytes automated count (number/volume) 0. 3 10*3 0.0-1.0 Automated eosinophil count 0.0 10*3/uL 0 .0-0.3 Automated blood basophil count (count/volume) 0.0 10*3/uL 0.0-0.1 Whole blood basic metabolic panel - 01/05 05:21 Serum or plasma sodium measurement (moles/volume) 142 mmol/L 135-145 Serum or plasma potassium measurement (moles/volume) 3.4 mmol/L 3.6-5.0 Serum or plasma chloride measurement (moles/volume) 104 mmol/L 98-107 Carbon dioxide 25 mmol/L 21-32 Serum or plasma anion gap determination (moles/volume) 13 mmol/L 5-14 Serum or plasma urea nitrogen measurement (mass/volume ) 16 mg/dL 7-18 Serum or plasma creatinine measurement (mass/volume) 0.96 mg/dL 0.60-1.30 Serum or plasma urea nitrogen/creatinine mass ratio 17 NRG Serum or plasma creatinine measurement w ith calculation of estimated glomerular filtration rate 57 NRG Serum or plasma glucose measurement (mass/volume) 171 mg/dL 70-105 Serum or plasma calcium measurement (mass/volume) 7.6 mg/dL 8.5-10.1 Serum or plasma phosphate measurement (m ass/volume) - 09/23/17 05:21 Serum or plasma phosphate measurement (mass/volume) 2.7 mg/dL 2.3-4.7 Magnesium - 09/23/17 05:21 Magnesium 1.6 mg/dL 1.8-2.4 Capillary blood glucose measurement by g lucometer (mass/volume) - 09/23/17 11:23 Capillary blood glucose measurement by glucometer (mas s/volume) 120 mg/dL 70-110 Capillary blood glucose measurement by g lucometer (mass/volume) - 09/23/17 16:00 Capillary blood glucose measurement by glucometer (mas s/volume) 116 mg/dL 70-110 Capillary blood glucose measurement by g lucometer (mass/volume) - 09/23/17 20:25 Capillary blood glucose measurement by glucometer (mas s/volume) 99 mg/dL 70-110 Capillary blood glucose measurement by g lucometer (mass/volume) - 09/24/17 05:58 Capillary blood glucose measurement by glucometer (mas s/volume) 96 mg/dL 70-110 Capillary blood glucose measurement by g lucometer (mass/volume) - 09/24/17 11:20 Capillary blood glucose measurement by glucometer (mas s/volume) 140 mg/dL 70-110 Capillary blood glucose measurement by g lucometer (mass/volume) - 09/24/17 15:49 Capillary blood glucose measurement by glucometer (mas s/volume) 199 mg/dL 70-110 Capillary blood glucose measurement by g lucometer (mass/volume) - 09/24/17 20:35 Capillary blood glucose measurement by glucometer (mas s/volume) 110 mg/dL 70-110 Automated blood complete blood count (he mogram) panel - 09/25/17 06:00 Blood leukocytes automated count (number/volume) 3.7 10*3/uL 4.3-11.0 Blood erythrocytes automated count (number/volume) 2.95 10*6/uL 4.35-5.85 Venous blood hemoglobin measurement (mass/volume) 9.9 g/dL 11.5-16.0 Blood hematocrit (volume fraction) 31 % 35-52 Automated erythrocyte mean corpuscular volume 105 [foz_us] 80-99 Automated erythrocyte mean corpuscular h emoglobin (mass per erythrocyte) 34 pg 25-34 Automated erythrocyte mean corpuscular h emoglobin concentration measurement (mass/volume) 32 g/dL 32-36 Automated erythrocyte distribution width ratio 14. 4 % 10.0- 14.5 Automated blood platelet count (count/volume) 192 10*3/uL 130-400 Automated blood platelet mean volume measurement 10.6 [foz_us] 7.4-10.4 Comprehensive metabolic panel - 09/25/17 06:00 Serum or plasma sodium measurement (moles/volume) 144 mmol/L 135-145 Serum or plasma potassium measurement (moles/volume) 3.0 mmol/L 3.6-5.0 Serum or plasma chloride measurement (moles/volume) 107 mmol/L 98-107 Carbon dioxide 27 mmol/L 21-32 Serum or plasma anion gap determination (moles/volume) 10 mmol/L 5-14 Serum or plasma urea nitrogen measurement (mass/volume ) 9 mg/dL 7-18 Serum or plasma creatinine measurement (mass/volume) 0.88 mg/dL 0.60-1.30 Serum or plasma urea nitrogen/creatinine mass ratio 10 NRG Serum or plasma creatinine measurement w ith calculation of estimated glomerular filtration rate > NRG Serum or plasma glucose measurement (mass/volume) 89 mg/dL 70-105 Serum or plasma calcium measurement (mass/volume) 8.2 mg/dL 8.5-10.1 Serum or plasma total bilirubin measurement (mass/volu me) 0.8 mg/dL 0.1-1.0 Serum or plasma alkaline phosphatase mitzy surement (enzymatic activity/volume) 62 U/L 40-136 Serum or plasma aspartate aminotransfera se measurement (enzymatic activity/volume) 40 U/L 5-34 Serum or plasma alanine aminotransferase measurement (enzymatic activity/volume) 166 U/L 0-55 Serum or plasma protein measurement (mass/volume) 5.6 g/dL 6.4-8.2 Serum or plasma albumin measurement (mass/volume) 2.9 g/dL 3.2-4.5 Capillary blood glucose measurement by g lucometer (mass/volume) - 09/25/17 12:27 Capillary blood glucose measurement by glucometer (mas s/volume) 134 mg/dL 70-110 Capillary blood glucose measurement by g lucometer (mass/volume) - 09/25/17 15:35 Capillary blood glucose measurement by glucometer (mas s/volume) 162 mg/dL 70-110 Capillary blood glucose measurement by g lucometer (mass/volume) - 09/25/17 20:20 Capillary blood glucose measurement by glucometer (mas s/volume) 138 mg/dL 70-110 Comprehensive metabolic panel - 09/26/17 05:00 Serum or plasma sodium measurement (moles/volume) 143 mmol/L 135-145 Serum or plasma potassium measurement (moles/volume) 3.4 mmol/L 3.6-5.0 Serum or plasma chloride measurement (moles/volume) 112 mmol/L 98-107 Carbon dioxide 24 mmol/L 21-32 Serum or plasma anion gap determination (moles/volume) 7 mmol/L 5-14 Serum or plasma urea nitrogen measurement (mass/volume ) 11 mg/dL 7-18 Serum or plasma creatinine measurement (mass/volume) 0.86 mg/dL 0.60-1.30 Serum or plasma urea nitrogen/creatinine mass ratio 13 NRG Serum or plasma creatinine measurement w ith calculation of estimated glomerular filtration rate > NRG Serum or plasma glucose measurement (mass/volume) 97 mg/dL 70-105 Serum or plasma calcium measurement (mass/volume) 8.1 mg/dL 8.5-10.1 Serum or plasma total bilirubin measurement (mass/volu me) 0.6 mg/dL 0.1-1.0 Serum or plasma alkaline phosphatase mitzy surement (enzymatic activity/volume) 65 U/L 40-136 Serum or plasma aspartate aminotransfera se measurement (enzymatic activity/volume) 30 U/L 5-34 Serum or plasma alanine aminotransferase measurement (enzymatic activity/volume) 137 U/L 0-55 Serum or plasma protein measurement (mass/volume) 5.2 g/dL 6.4-8.2 Serum or plasma albumin measurement (mass/volume) 2.8 g/dL 3.2-4.5 Capillary blood glucose measurement by g lucometer (mass/volume) - 09/26/17 10:58 Capillary blood glucose measurement by glucometer (mas s/volume) 138 mg/dL 70-110 Capillary blood glucose measurement by g lucometer (mass/volume) - 09/26/17 15:53 Capillary blood glucose measurement by glucometer (mas s/volume) 174 mg/dL 70-110 Capillary blood glucose measurement by g lucometer (mass/volume) - 09/26/17 20:36 Capillary blood glucose measurement by glucometer (mas s/volume) 153 mg/dL 70-110 Automated blood complete blood count (he mogram) panel - 09/27/17 05:45 Blood leukocytes automated count (number/volume) 2.6 10*3/uL 4.3-11.0 Blood erythrocytes automated count (number/volume) 2.68 10*6/uL 4.35-5.85 Venous blood hemoglobin measurement (mass/volume) 9.1 g/dL 11.5-16.0 Blood hematocrit (volume fraction) 28 % 35-52 Automated erythrocyte mean corpuscular volume 104 [foz_us] 80-99 Automated erythrocyte mean corpuscular h emoglobin (mass per erythrocyte) 34 pg 25-34 Automated erythrocyte mean corpuscular h emoglobin concentration measurement (mass/volume) 33 g/dL 32-36 Automated erythrocyte distribution width ratio 14. 9 % 10.0- 14.5 Automated blood platelet count (count/volume) 194 10*3/uL 130-400 Automated blood platelet mean volume measurement 10.5 [foz_us] 7.4-10.4 Whole blood basic metabolic panel - 09/18 05:45 Serum or plasma sodium measurement (moles/volume) 144 mmol/L 135-145 Serum or plasma potassium measurement (moles/volume) 3.2 mmol/L 3.6-5.0 Serum or plasma chloride measurement (moles/volume) 114 mmol/L 98-107 Carbon dioxide 21 mmol/L 21-32 Serum or plasma anion gap determination (moles/volume) 9 mmol/L 5-14 Serum or plasma urea nitrogen measurement (mass/volume ) 17 mg/dL 7-18 Serum or plasma creatinine measurement (mass/volume) 0.95 mg/dL 0.60-1.30 Serum or plasma urea nitrogen/creatinine mass ratio 18 NRG Serum or plasma creatinine measurement w ith calculation of estimated glomerular filtration rate 58 NRG Serum or plasma glucose measurement (mass/volume) 99 mg/dL 70-105 Serum or plasma calcium measurement (mass/volume) 7.9 mg/dL 8.5-10.1 Capillary blood glucose measurement by g lucometer (mass/volume) - 09/27/17 10:53 Capillary blood glucose measurement by glucometer (mas s/volume) 166 mg/dL 70-110 Capillary blood glucose measurement by g lucometer (mass/volume) - 09/27/17 16:22 Capillary blood glucose measurement by glucometer (mas s/volume) 202 mg/dL 70-110 Capillary blood glucose measurement by g lucometer (mass/volume) - 09/27/17 21:35 Capillary blood glucose measurement by glucometer (mas s/volume) 137 mg/dL 70-110 Capillary blood glucose measurement by g lucometer (mass/volume) - 09/28/17 06:09 Capillary blood glucose measurement by glucometer (mas s/volume) 87 mg/dL 70-110 Capillary blood glucose measurement by g lucometer (mass/volume) - 09/28/17 11:50 Capillary blood glucose measurement by glucometer (mas s/volume) 171 mg/dL 70-110 Capillary blood glucose measurement by g lucometer (mass/volume) - 09/28/17 16:00 Capillary blood glucose measurement by glucometer (mas s/volume) 166 mg/dL 70-110 C DIFFICILE AG + TOXIN A/B. - 09/28/17 1 6:30 RESULTS NEGATIVE FOR ANTIGEN AND TOXIN A/B NRG Capillary blood glucose measurement by g lucometer (mass/volume) - 09/28/17 21:03 Capillary blood glucose measurement by glucometer (mas s/volume) 149 mg/dL 70-110 Capillary blood glucose measurement by g lucometer (mass/volume) - 09/29/17 05:22 Capillary blood glucose measurement by glucometer (mas s/volume) 89 mg/dL 70-110 Capillary blood glucose measurement by g lucometer (mass/volume) - 09/29/17 11:07 Capillary blood glucose measurement by glucometer (mas s/volume) 123 mg/dL 70-110 Complete blood count (CBC) with automate d white blood cell (WBC) differential - 10/22/18 09:30 Blood leukocytes automated count (number/volume) 3.0 10*3/uL 4.3-11.0 Blood erythrocytes automated count (number/volume) 3.95 10*6/uL 4.35-5.85 Venous blood hemoglobin measurement (mass/volume) 13.1 g/dL 11.5-16.0 Blood hematocrit (volume fraction) 39 % 35-52 Automated erythrocyte mean corpuscular volume 99 [ foz_us] 80-99 Automated erythrocyte mean corpuscular h emoglobin (mass per erythrocyte) 33 pg 25-34 Automated erythrocyte mean corpuscular h emoglobin concentration measurement (mass/volume) 34 g/dL 32-36 Automated erythrocyte distribution width ratio 13. 6 % 10.0- 14.5 Automated blood platelet count (count/volume) 155 10*3/uL 130-400 Automated blood platelet mean volume measurement 9.7 [foz_us] 7.4-10.4 Automated blood neutrophils/100 leukocytes 35 % 42-75 Automated blood lymphocytes/100 leukocytes 37 % 12-44 Blood monocytes/100 leukocytes 24 % 0-12 Automated blood eosinophils/100 leukocytes 4 % 0-10 Automated blood basophils/100 leukocytes 0 % 0-10 Blood neutrophils automated count (number/volume) 1.1 10*3 1.8-7.8 Blood lymphocytes automated count (number/volume) 1.1 10*3 1.0-4.0 Blood monocytes automated count (number/volume) 0. 7 10*3 0.0-1.0 Automated eosinophil count 0.1 10*3/uL 0 .0-0.3 Automated blood basophil count (count/volume) 0.0 10*3/uL 0.0-0.1 Comprehensive metabolic panel - 10/22/18 09:30 Serum or plasma sodium measurement (moles/volume) 138 mmol/L 135-145 Serum or plasma potassium measurement (moles/volume) 4.1 mmol/L 3.6-5.0 Serum or plasma chloride measurement (moles/volume) 105 mmol/L 98-107 Carbon dioxide 22 mmol/L 21-32 Serum or plasma anion gap determination (moles/volume) 11 mmol/L 5-14 Serum or plasma urea nitrogen measurement (mass/volume ) 15 mg/dL 7-18 Serum or plasma creatinine measurement (mass/volume) 1.01 mg/dL 0.60-1.30 Serum or plasma urea nitrogen/creatinine mass ratio 15 NRG Serum or plasma creatinine measurement w ith calculation of estimated glomerular filtration rate 54 NRG Serum or plasma glucose measurement (mass/volume) 99 mg/dL 70-105 Serum or plasma calcium measurement (mass/volume) 9.6 mg/dL 8.5-10.1 Serum or plasma total bilirubin measurement (mass/volu me) 0.7 mg/dL 0.1-1.0 Serum or plasma alkaline phosphatase mitzy surement (enzymatic activity/volume) 63 U/L 40-136 Serum or plasma aspartate aminotransfera se measurement (enzymatic activity/volume) 39 U/L 5-34 Serum or plasma alanine aminotransferase measurement (enzymatic activity/volume) 45 U/L 0-55 Serum or plasma protein measurement (mass/volume) 6.9 g/dL 6.4-8.2 Serum or plasma albumin measurement (mass/volume) 3.9 g/dL 3.2-4.5 CALCIUM CORRECTED 9.7 mg/dL 8.5-10.1 Serum [id number] measurement ( mass/volume) - 10/22/18 09:30 [id number] [Mass/volume] in Serum or Plasma 3.97 % 0.00-1.85 Serum or plasma ferritin measurement (ma ss/volume) - 10/22/18 09:30 Serum or plasma ferritin measurement (mass/volume) 103.1 % 20.0-177.0 [id number] - 10/22/18 09:30 [id number] 48 % 48-271 Immunoglobulin panel (IgG, IgM, IgA) serum 483 % 71-263 Serum protein electrophoresis - 10/22/18 09:30 Serum or plasma protein measurement (mass/volume) 6.6 % 6.4- 8.1 Pathology consultation and report SEE PATH REPORT NRG Quantitative urine kappa and lambda free light chains measurement - 10/22/18 09:30 Quantitative serum kappa light chain measurement 2 6.72 % 3.30-19.40 Quantitative serum lambda light chain measurement 9.91 % 5.71-26.30 Serum immunoglobulin free kappa light ch ains/immunoglobulin lambda light chains mass ratio 2.70 % 0.26-1.65 Complete blood count (CBC) with automate d white blood cell (WBC) differential - 01/28/19 08:25 Blood leukocytes automated count (number/volume) 3.2 10*3/uL 4.3-11.0 Blood erythrocytes automated count (number/volume) 3.94 10*6/uL 4.35-5.85 Venous blood hemoglobin measurement (mass/volume) 12.9 g/dL 11.5-16.0 Blood hematocrit (volume fraction) 40 % 35-52 Automated erythrocyte mean corpuscular volume 101 [foz_us] 80-99 Automated erythrocyte mean corpuscular h emoglobin (mass per erythrocyte) 33 pg 25-34 Automated erythrocyte mean corpuscular h emoglobin concentration measurement (mass/volume) 32 g/dL 32-36 Automated erythrocyte distribution width ratio 13. 5 % 10.0- 14.5 Automated blood platelet count (count/volume) 173 10*3/uL 130-400 Automated blood platelet mean volume measurement 10.2 [foz_us] 7.4-10.4 Automated blood neutrophils/100 leukocytes 41 % 42-75 Automated blood lymphocytes/100 leukocytes 39 % 12-44 Blood monocytes/100 leukocytes 16 % 0-12 Automated blood eosinophils/100 leukocytes 4 % 0-10 Automated blood basophils/100 leukocytes 0 % 0-10 Blood neutrophils automated count (number/volume) 1.3 10*3 1.8-7.8 Blood lymphocytes automated count (number/volume) 1.2 10*3 1.0-4.0 Blood monocytes automated count (number/volume) 0. 5 10*3 0.0-1.0 Automated eosinophil count 0.1 10*3/uL 0 .0-0.3 Automated blood basophil count (count/volume) 0.0 10*3/uL 0.0-0.1 Comprehensive metabolic panel - 01/28/19 08:25 Serum or plasma sodium measurement (moles/volume) 138 mmol/L 135-145 Serum or plasma potassium measurement (moles/volume) 4.0 mmol/L 3.6-5.0 Serum or plasma chloride measurement (moles/volume) 105 mmol/L 98-107 Carbon dioxide 21 mmol/L 21-32 Serum or plasma anion gap determination (moles/volume) 12 mmol/L 5-14 Serum or plasma urea nitrogen measurement (mass/volume ) 17 mg/dL 7-18 Serum or plasma creatinine measurement (mass/volume) 1.20 mg/dL 0.60-1.30 Serum or plasma urea nitrogen/creatinine mass ratio 14 NRG Serum or plasma creatinine measurement w ith calculation of estimated glomerular filtration rate 44 NRG Serum or plasma glucose measurement (mass/volume) 131 mg/dL 70-105 Serum or plasma calcium measurement (mass/volume) 9.4 mg/dL 8.5-10.1 Serum or plasma total bilirubin measurement (mass/volu me) 0.6 mg/dL 0.1-1.0 Serum or plasma alkaline phosphatase mitzy surement (enzymatic activity/volume) 73 U/L 40-136 Serum or plasma aspartate aminotransfera se measurement (enzymatic activity/volume) 41 U/L 5-34 Serum or plasma alanine aminotransferase measurement (enzymatic activity/volume) 42 U/L 0-55 Serum or plasma protein measurement (mass/volume) 7.2 g/dL 6.4-8.2 Serum or plasma albumin measurement (mass/volume) 3.9 g/dL 3.2-4.5 CALCIUM CORRECTED 9.5 mg/dL 8.5-10.1 Serum ijhb-7-euxxyrcfsotiv measurement ( mass/volume) - 01/28/19 08:25 [id number] [Mass/volume] in Serum or Plasma 3.99 % 0.00-1.85 Serum or plasma ferritin measurement (ma ss/volume) - 01/28/19 08:25 Serum or plasma ferritin measurement (mass/volume) 135.3 % 20.0-177.0 [id number] - 01/28/19 08:25 [id number] 49 % 47-209 Serum IgA measurement (units/volume) 519 % 71-263 Quantitative urine kappa and lambda free light chains measurement - 01/28/19 08:25 Quantitative serum kappa light chain measurement 3 1.70 % 3.30-19.40 Quantitative serum lambda light chain measurement 18.31 % 5.71-26.30 Serum immunoglobulin free kappa light ch ains/immunoglobulin lambda light chains mass ratio 1.73 % 0.26-1.65 Levetiracetam (Keppra), S - 04/21/19 08: 31 Levetiracetam, S None Detected ug/mL 10. 0-40.0 MRSA Screen - 04/25/19 17:17 FINAL CULTURE RESULTS MRSA Negative Nasal Culture MEDIA PLATED Setup at 17:27 on 04/25/2019 Blood lactic acid measurement (moles/vol ume) - 05/05/19 11:31 Blood lactic acid measurement (moles/volume) 1.80 mmol/L 0.50-2.00 Bacterial blood culture - 05/05/19 11:31 Bacterial blood culture NG [facility] Automated blood complete blood count (he mogram) panel - 05/05/19 11:40 Blood leukocytes automated count (number/volume) 3.0 10*3/uL 4.3-11.0 Blood erythrocytes automated count (number/volume) 3.94 10*6/uL 4.35-5.85 Venous blood hemoglobin measurement (mass/volume) 12.2 g/dL 11.5-16.0 Blood hematocrit (volume fraction) 39 % 35-52 Automated erythrocyte mean corpuscular volume 100 [foz_us] 80-99 Automated erythrocyte mean corpuscular h emoglobin (mass per erythrocyte) 31 pg 25-34 Automated erythrocyte mean corpuscular h emoglobin concentration measurement (mass/volume) 31 g/dL 32-36 Automated erythrocyte distribution width ratio 14. 7 % 10.0- 14.5 Automated blood platelet count (count/volume) 245 10*3/uL 130-400 Automated blood platelet mean volume measurement 9.8 [foz_us] 7.4-10.4 Comprehensive metabolic panel - 05/05/19 11:40 Serum or plasma sodium measurement (moles/volume) 137 mmol/L 135-145 Serum or plasma potassium measurement (moles/volume) 4.2 mmol/L 3.6-5.0 Serum or plasma chloride measurement (moles/volume) 101 mmol/L 98-107 Carbon dioxide 24 mmol/L 21-32 Serum or plasma anion gap determination (moles/volume) 12 mmol/L 5-14 Serum or plasma urea nitrogen measurement (mass/volume ) 16 mg/dL 7-18 Serum or plasma creatinine measurement (mass/volume) 1.31 mg/dL 0.60-1.30 Serum or plasma urea nitrogen/creatinine mass ratio 12 NRG Serum or plasma creatinine measurement w ith calculation of estimated glomerular filtration rate 40 NRG Serum or plasma glucose measurement (mass/volume) 138 mg/dL 70-105 Serum or plasma calcium measurement (mass/volume) 8.9 mg/dL 8.5-10.1 Serum or plasma total bilirubin measurement (mass/volu me) 1.2 mg/dL 0.1-1.0 Serum or plasma alkaline phosphatase mitzy surement (enzymatic activity/volume) 69 U/L 40-136 Serum or plasma aspartate aminotransfera se measurement (enzymatic activity/volume) 25 U/L 5-34 Serum or plasma alanine aminotransferase measurement (enzymatic activity/volume) 22 U/L 0-55 Serum or plasma protein measurement (mass/volume) 8.1 g/dL 6.4-8.2 Serum or plasma albumin measurement (mass/volume) 3.7 g/dL 3.2-4.5 CALCIUM CORRECTED 9.1 mg/dL 8.5-10.1 Bacterial blood culture - 05/05/19 11:40 Bacterial blood culture NG NRG Automated blood complete blood count (he mogram) panel - 05/06/19 05:30 Blood leukocytes automated count (number/volume) 1.7 10*3/uL 4.3-11.0 Blood erythrocytes automated count (number/volume) 3.19 10*6/uL 4.35-5.85 Venous blood hemoglobin measurement (mass/volume) 9.9 g/dL 11.5-16.0 Blood hematocrit (volume fraction) 32 % 35-52 Automated erythrocyte mean corpuscular volume 100 [foz_us] 80-99 Automated erythrocyte mean corpuscular h emoglobin (mass per erythrocyte) 31 pg 25-34 Automated erythrocyte mean corpuscular h emoglobin concentration measurement (mass/volume) 31 g/dL 32-36 Automated erythrocyte distribution width ratio 14. 6 % 10.0- 14.5 Automated blood platelet count (count/volume) 179 10*3/uL 130-400 Automated blood platelet mean volume measurement 9.5 [foz_us] 7.4-10.4 Comprehensive metabolic panel - 05/06/19 11:40 Serum or plasma sodium measurement (moles/volume) 139 mmol/L 135-145 Serum or plasma potassium measurement (moles/volume) 3.9 mmol/L 3.6-5.0 Serum or plasma chloride measurement (moles/volume) 107 mmol/L 98-107 Carbon dioxide 22 mmol/L 21-32 Serum or plasma anion gap determination (moles/volume) 10 mmol/L 5-14 Serum or plasma urea nitrogen measurement (mass/volume ) 10 mg/dL 7-18 Serum or plasma creatinine measurement (mass/volume) 1.10 mg/dL 0.60-1.30 Serum or plasma urea nitrogen/creatinine mass ratio 9 NRG Serum or plasma creatinine measurement w ith calculation of estimated glomerular filtration rate 49 NRG Serum or plasma glucose measurement (mass/volume) 91 mg/dL 70-105 Serum or plasma calcium measurement (mass/volume) 7.7 mg/dL 8.5-10.1 Serum or plasma total bilirubin measurement (mass/volu me) 0.7 mg/dL 0.1-1.0 Serum or plasma alkaline phosphatase mitzy surement (enzymatic activity/volume) 67 U/L 40-136 Serum or plasma aspartate aminotransfera se measurement (enzymatic activity/volume) 24 U/L 5-34 Serum or plasma alanine aminotransferase measurement (enzymatic activity/volume) 21 U/L 0-55 Serum or plasma protein measurement (mass/volume) 6.6 g/dL 6.4-8.2 Serum or plasma albumin measurement (mass/volume) 3.1 g/dL 3.2-4.5 CALCIUM CORRECTED 8.4 mg/dL 8.5-10.1 Automated blood complete blood count (he mogram) panel - 05/07/19 10:35 Blood leukocytes automated count (number/volume) 2.8 10*3/uL 4.3-11.0 Blood erythrocytes automated count (number/volume) 3.07 10*6/uL 4.35-5.85 Venous blood hemoglobin measurement (mass/volume) 9.3 g/dL 11.5-16.0 Blood hematocrit (volume fraction) 30 % 35-52 Automated erythrocyte mean corpuscular volume 99 [ foz_us] 80-99 Automated erythrocyte mean corpuscular h emoglobin (mass per erythrocyte) 30 pg 25-34 Automated erythrocyte mean corpuscular h emoglobin concentration measurement (mass/volume) 31 g/dL 32-36 Automated erythrocyte distribution width ratio 14. 4 % 10.0- 14.5 Automated blood platelet count (count/volume) 200 10*3/uL 130-400 Automated blood platelet mean volume measurement 9.6 [foz_us] 7.4-10.4 Vancomycin trough - 05/07/19 10:35 Vancomycin trough 10.7 ug/mL 10.0-20.0 Automated blood complete blood count (he mogram) panel - 05/08/19 06:45 Blood leukocytes automated count (number/volume) 4.6 10*3/uL 4.3-11.0 Blood erythrocytes automated count (number/volume) 2.93 10*6/uL 4.35-5.85 Venous blood hemoglobin measurement (mass/volume) 9.2 g/dL 11.5-16.0 Blood hematocrit (volume fraction) 29 % 35-52 Automated erythrocyte mean corpuscular volume 99 [ foz_us] 80-99 Automated erythrocyte mean corpuscular h emoglobin (mass per erythrocyte) 31 pg 25-34 Automated erythrocyte mean corpuscular h emoglobin concentration measurement (mass/volume) 32 g/dL 32-36 Automated erythrocyte distribution width ratio 14. 4 % 10.0- 14.5 Automated blood platelet count (count/volume) 208 10*3/uL 130-400 Automated blood platelet mean volume measurement 9.9 [foz_us] 7.4-10.4 Whole blood basic metabolic panel - 04/20 04/08 06:45 Serum or plasma sodium measurement (moles/volume) 140 mmol/L 135-145 Serum or plasma potassium measurement (moles/volume) 3.4 mmol/L 3.6-5.0 Serum or plasma chloride measurement (moles/volume) 110 mmol/L 98-107 Carbon dioxide 18 mmol/L 21-32 Serum or plasma anion gap determination (moles/volume) 12 mmol/L 5-14 Serum or plasma urea nitrogen measurement (mass/volume ) 10 mg/dL 7-18 Serum or plasma creatinine measurement (mass/volume) 0.88 mg/dL 0.60-1.30 Serum or plasma urea nitrogen/creatinine mass ratio 11 NRG Serum or plasma creatinine measurement w ith calculation of estimated glomerular filtration rate > NRG Serum or plasma glucose measurement (mass/volume) 116 mg/dL 70-105 Serum or plasma calcium measurement (mass/volume) 6.7 mg/dL 8.5-10.1 Automated blood complete blood count (he mogram) panel - 05/09/19 05:20 Blood leukocytes automated count (number/volume) 6.3 10*3/uL 4.3-11.0 Blood erythrocytes automated count (number/volume) 2.99 10*6/uL 4.35-5.85 Venous blood hemoglobin measurement (mass/volume) 9.1 g/dL 11.5-16.0 Blood hematocrit (volume fraction) 30 % 35-52 Automated erythrocyte mean corpuscular volume 99 [ foz_us] 80-99 Automated erythrocyte mean corpuscular h emoglobin (mass per erythrocyte) 30 pg 25-34 Automated erythrocyte mean corpuscular h emoglobin concentration measurement (mass/volume) 31 g/dL 32-36 Automated erythrocyte distribution width ratio 15. 0 % 10.0- 14.5 Automated blood platelet count (count/volume) 214 10*3/uL 130-400 Automated blood platelet mean volume measurement 10.1 [foz_us] 7.4-10.4 Whole blood basic metabolic panel - 04/21 05:20 Serum or plasma sodium measurement (moles/volume) 143 mmol/L 135-145 Serum or plasma potassium measurement (moles/volume) 3.6 mmol/L 3.6-5.0 Serum or plasma chloride measurement (moles/volume) 112 mmol/L 98-107 Carbon dioxide 21 mmol/L 21-32 Serum or plasma anion gap determination (moles/volume) 10 mmol/L 5-14 Serum or plasma urea nitrogen measurement (mass/volume ) 13 mg/dL 7-18 Serum or plasma creatinine measurement (mass/volume) 0.91 mg/dL 0.60-1.30 Serum or plasma urea nitrogen/creatinine mass ratio 14 NRG Serum or plasma creatinine measurement w ith calculation of estimated glomerular filtration rate > NRG Serum or plasma glucose measurement (mass/volume) 125 mg/dL 70-105 Serum or plasma calcium measurement (mass/volume) 7.1 mg/dL 8.5-10.1 Magnesium - 05/09/19 05:20 Magnesium 1.7 mg/dL 1.6-2.4 Vancomycin trough - 05/09/19 10:23 Vancomycin trough 15.9 ug/mL 10.0-20.0 Automated blood complete blood count (he mogram) panel - 05/10/19 05:30 Blood leukocytes automated count (number/volume) 7.4 10*3/uL 4.3-11.0 Blood erythrocytes automated count (number/volume) 2.90 10*6/uL 4.35-5.85 Venous blood hemoglobin measurement (mass/volume) 9.1 g/dL 11.5-16.0 Blood hematocrit (volume fraction) 29 % 35-52 Automated erythrocyte mean corpuscular volume 99 [ foz_us] 80-99 Automated erythrocyte mean corpuscular h emoglobin (mass per erythrocyte) 31 pg 25-34 Automated erythrocyte mean corpuscular h emoglobin concentration measurement (mass/volume) 32 g/dL 32-36 Automated erythrocyte distribution width ratio 14. 9 % 10.0- 14.5 Automated blood platelet count (count/volume) 186 10*3/uL 130-400 Automated blood platelet mean volume measurement 9.8 [foz_us] 7.4-10.4 Whole blood basic metabolic panel - 04/21 08/08 05:30 Serum or plasma sodium measurement (moles/volume) 143 mmol/L 135-145 Serum or plasma potassium measurement (moles/volume) 2.8 mmol/L 3.6-5.0 Serum or plasma chloride measurement (moles/volume) 109 mmol/L 98-107 Carbon dioxide 25 mmol/L 21-32 Serum or plasma anion gap determination (moles/volume) 9 mmol/L 5-14 Serum or plasma urea nitrogen measurement (mass/volume ) 13 mg/dL 7-18 Serum or plasma creatinine measurement (mass/volume) 0.99 mg/dL 0.60-1.30 Serum or plasma urea nitrogen/creatinine mass ratio 13 NRG Serum or plasma creatinine measurement w ith calculation of estimated glomerular filtration rate 55 NRG Serum or plasma glucose measurement (mass/volume) 83 mg/dL 70-105 Serum or plasma calcium measurement (mass/volume) 6.7 mg/dL 8.5-10.1 [id number] - 06/25/19 08:30 Serum or plasma urea nitrogen measurement (mass/volume ) 16 mg/dL 7-18 Serum or plasma creatinine measurement (mass/volume) 1.13 mg/dL 0.60-1.30 Serum or plasma urea nitrogen/creatinine mass ratio 14 NRG Serum or plasma creatinine measurement w ith calculation of estimated glomerular filtration rate 47 NRG Encounters ACCT No. Visit Date/Time Discharge Status Pt. Type Provider Facility Loc./Unit Complaint [id number] 04/23/2019 09:11:00 Document Registration [id number] 04/24/2019 11:00:00 Document Registration [id number] 10/07/2019 10:44:00 23:59:59 CLS Outpatient MARGE SPRINGER [facility] ONC [id number] 09/09/2019 08:45:00 23:59:59 CLS Outpatient MARGE SPRINGER [facility] ONC [id number] 08/26/2019 12:25:00 00:01:00 DIS Outpatient SARAH BARDALES MD, [facility] ONC LAB [id number] 2019 14:25:00 23:59:59 CLS Preadmit ISAAC LI [employer] [facility] RAD SCREENING [id number] 06/25/2019 08:14:00 23:59:59 CLS Outpatient CHASIDY ANDREWS [employer] [facility] RT COUGH,HX OF SMO OLIVIA,DYSPNEA [id number] 05/05/2019 10:49:00 11:03:00 DIS Inpatient ORTEGA PIERRE MD [facility] 4TH UTI [id number] 03/11/2019 08:29:00 019 00:01:00 DIS Outpatient SARAH BARDALES MD, [facility] ONC LAB [id number] 01/28/2019 08:14:00 019 00:01:00 DIS Outpatient SARAH BARDALES MD, [facility] ONC LAB [id number] 10/22/2018 09:25:00 00:01:00 DIS Outpatient GIANMARGE [facility] ONC LAB [id number] 07/16/2018 10:26:00 00:01:00 DIS Outpatient MARGE SPRINGER [facility] ONC LAB [id number] 03/17/2018 08:01:00 00:01:00 DIS Outpatient MARGE SPRINGER [facility] ONC LAB [id number] 02/12/2018 10:13:00 018 07:58:00 DIS Outpatient MARGE SPRINGER [facility] ONC LAB [id number] 02/03/2018 08:45:00 018 00:01:00 DIS Outpatient MARGE SPRINGER [facility] ONC LAB [id number] 01/30/2018 08:40:00 018 23:59:59 CLS Outpatient ORTEGA PIERRE MD [facility] RAD AVM OF LT FRONTAL LOBE [id number] 09/23/2017 09:48:00 018 12:20:00 DIS Inpatient ORTEGA PIERRE MD [facility] 4TH SWB,PNEUMONIA, WEAKNESS [id number] 09/11/2017 12:00:00 018 09:39:00 DIS Inpatient ORTEGA PIERRE MD [facility] 4TH FEBRILE NEUTROPENIA [id number] 08/11/2017 09:59:00 018 00:01:00 DIS Outpatient MARGE SPRINGER [facility] ONC LAB [id number] 04/14/2017 08:56:00 017 00:01:00 DIS Outpatient MARGE SPRINGER Ji Pamela [facility] ONC LAB [id number] 03/03/2017 07:50:00 017 00:01:00 DIS Outpatient MARGE SPRINGER Ji Pamela [facility] ONC LAB [id number] 11/05/2016 10:11:00 017 00:01:00 DIS Outpatient MARGE SPRINGER Ji Pamela [facility] ONC LAB [id number] 07/17/2016 10:48:00 00:01:00 DIS Outpatient MARGE SPRINGER Ji Santiago [facility] ONC LAB [id number] 04/30/2016 16:50:00 15:30:00 DIS Inpatient GIAN NOEMÍMONICA Ji Gallo [facility] 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,MULTI PLE MYELOMA [id number] 04/30/2016 15:41:00 016 23:59:59 CLS Outpatient TITA DELATORRE [employer] [facility] RAD [id number] 03/14/2016 08:09:00 016 10:59:00 DIS Outpatient MARGE SPRINGER Ji Santiago [facility] ONC LAB [id number] 02/08/2016 10:39:00 00:01:00 DIS Outpatient GIAN, MARGE Santiago [facility] ONC LAB [id number] 11/30/2015 10:58:00 016 23:59:59 CLS Outpatient TITA DELATORRE S [employer]LY[employer] [facility] ONC [id number] 11/17/2015 08:09:00 016 00:01:00 DIS Outpatient MARGE SPRINGER [facility] ONC LAB [id number] 09/11/2015 10:15:00 016 23:59:59 CLS Outpatient TITA DELATORRE S [employer]LY[employer] [facility] ONC [id number] 07/20/2015 08:48:00 015 23:59:59 CLS Outpatient MARGE SPRINGER Ji Pamela [facility] ONC LAB [id number] 04/06/2015 12:44:00 015 00:01:00 DIS Outpatient GIAN NOEMÍMONICA Ji Santiago [facility] ONC LAB [id number] 04/06/2015 12:46:00 23:59:59 CLS Outpatient TITA DELATORRE [employer]LY[employer] [facility] ONC [id number] 01/05/2015 13:52:00 015 00:01:00 DIS Outpatient GIAN MARGE Santiago [facility] ONC LAB [id number] 07/28/2014 08:27:00 23:59:59 CLS Outpatient ORTEGA PIERRE MD [facility] LAB [id number] 07/28/2014 08:25:00 015 23:59:59 CLS Outpatient MARGE SPRINGER Ji Santiago [facility] ONC LAB [id number] 05/25/2014 13:34:00 014 00:01:00 DIS Outpatient GIAN MARGE Santiago [facility] ONC LAB [id number] 05/25/2014 10:27:00 014 23:59:59 CLS Outpatient TITA DELATORRE [employer]LY[employer] [facility] ONC [id number] 02/17/2014 09:26:00 014 00:01:00 DIS Outpatient GIANMARGE [facility] ONC LAB [id number] 10/20/2013 08:54:00 014 00:01:00 DIS Outpatient GIANMARGE [facility] ONC LAB [id number] 06/22/2013 10:01:00 014 00:01:00 DIS Outpatient MARGE SPRINGER [facility] ONC LAB [id number] 05/11/2013 09:56:00 013 23:59:59 CLS Outpatient TITA DELATORRE [facility] ONC [id number] 03/29/2013 09:39:00 00:01:00 DIS Outpatient MARGE SPRINGER [facility] ONC LAB [id number] 01/04/2013 09:01:00 23:59:59 CLS Outpatient ORTEGA PIERRE MD [facility] LAB [id number] 11/23/2012 09:39:00 013 08:53:00 DIS Outpatient MARGE SPRINGER [facility] ONC LAB [id number] 12/27/2019 10:15:00 P CHASIDY Smith APRN [facility] RAD DYSPNEA,PNEUMONIA,COUGH [id number] 06/08/2015 09:36:00 Document Registration [id number] 10/02/2012 10:39:00 Document Registration [id number] 09/28/2012 09:03:00 Document Registration [id number] 09/01/2012 10:16:00 Document Registration [id number] 12/31/2010 09:42:00 Document Registration
[2019-11-16] MEDS ORDERED: RT-ALBUTEROL HFA (PROAIR HFA) 8.5 GM IH SCH (09:15)
--- NOTE | 2019-11-16 09:20 | ED Cough/URI ---
General Chief Complaint: Cough/Cold/Flu Symptoms Stated Complaint: COUGH,COPD Nursing Triage Note: ARRIVED VIA AMB TO [facility]. STATES SHE HAS A HX OF A COUGH BUT IT CHANGED "A LITTLE" LAST NIGHT. COUGHING UP CLEAR PHLEM. STATES HER GOT WORRIED ABOUT HER. DENIES FEVER. ARRIVED WITHOUT OXYGEN ET STATES SHE IS NORMALLY ON OXYGEN AT HOME. Sepsis Screen: No Definite Risk Source: patient (LIMITED HISTORIAN ABOUT PMH), old records (PMH IS FROM OLD RECORDS) History of Present Illness Date Seen by Provider: Nov 16, 2019 Time Seen by Provider: 08:50 Initial Comments PT ARRIVES VIA POV FROM HOME PT HAS COPD AND DID NOT BRING HOME O2 WITH HER--NORMALLY WEARS O2 AT 2L/NC CONTINUOUSLY C/O PRODUCTIVE COUGH WITH CLEAR SPUTUM --HAS CHRONIC COUGH, BUT IS A LITTLE WORSE SINCE LAST NIGHT NO INCREASE IN CHRONIC SHORTNESS OF BREATH NO CHEST PAIN OR PAIN WITH BREATHING NO SWELLING IN LEGS/FEET NO FEVER HAS NOT USED HER INHALER OR NEBULIZER TODAY NO KNOWN SICK CONTACTS OR EXPOSURE TO COVID-19 STATES SHE HAS ONLY LEFT HER HOUSE A FEW TIMES TO GET GROCERIES, ETC. HAD AN APPOINTMENT WITH DR. PIERRE, BUT STATES "IT GOT MOVED BACK" BUT HAS NO IDEA WHEN IT WAS RESCHEDULED PCP: DR. PIERRE Allergies and Home Medications Allergies Coded Allergies: No Known Drug Allergies (Verified , 05/05/19) Home Medications Acyclovir 400 Mg Tablet, 400 MG PO DAILY, (Reported) Amoxicillin/Potassium Clav 1 Each Tablet, 1 EACH PO BID Prescribed by: ORTEGA PIERRE on 05/10/19 0910 Aspirin 81 Mg Tablet.dr, 81 MG PO DAILY, (Reported) Budesonide 1 Mg/2 Ml Ampul.neb, 1 MG IH BID Prescribed by: LEX CASTILLO on 11/16/19 1123 Calcium Carbonate/Vitamin D3 1 Each Tablet, 1 TAB PO DAILY, (Reported) Cefdinir 300 Mg Capsule, 300 MG PO BID Prescribed by: LEX CASTILLO on 11/16/19 1123 Cyanocobalamin (Vitamin B-12) 1,000 Mcg Tablet, 1,000 MCG PO DAILY, (Reported) Ferrous Sulfate 325 Mg Tablet, 325 MG PO 1700, (Reported) Fluoxetine HCl 20 Mg Capsule, 20 MG PO DAILY, (Reported) Guaifenesin/Dextromethorphan 1 Each Tbmp.12hr, 1 EACH PO BID Prescribed by: LEX CASTILLO on 11/16/19 1125 Ipratropium/Albuterol Sulfate 3 Ml Ampul.neb, 3 ML INH RTQID inhale qid x 3 days then tid x 3 days then bid x 1 wk then as needed for shortness of breath Prescribed by: ORTEGA PIERRE on 05/10/19 0910 Ipratropium/Albuterol Sulfate 3 Ml Ampul.neb, 3 ML IH Q4H PRN for SHORTNESS OF BREATH Prescribed by: LEX CASTILLO on 11/16/19 1123 Lactobacillus Acidophilus/Pect 1 Each Capsule, 2 EACH PO TIDWM Prescribed by: ORTEGA PIERRE on 05/10/19 0910 Letrozole 2.5 Mg Tablet, 2.5 MG PO DAILY, (Reported) Levothyroxine Sodium 75 Mcg Tablet, 75 MCG PO DAILY, (Reported) Lovastatin 20 Mg Tablet, 20 MG PO HS, (Reported) Metoprolol Tartrate 25 Mg Tablet, 12.5 MG PO BID, (Reported) TAKES 1/2 (25MG) TABLET Multivitamin 1 Each Tablet, 1 TAB PO DAILY, (Reported) Niacinamide 500 Mg Tablet, 500 MG PO HS, (Reported) Olanzapine 2.5 Mg Tablet, 2.5 MG PO DAILY, (Reported) Omeprazole 20 Mg Capsule.dr, 20 MG PO 1200,1700, (Reported) Oxycodone HCl/Acetaminophen 1 Each Tablet, 1 TAB PO Q4H PRN for PAIN-MODERATE, (Reported) Patient Home Medication List Home Medication List Reviewed: No Review of Systems Review of Systems Constitutional: no symptoms reported; No chills, No dizziness, No fever EENTM: no symptoms reported; No nose congestion, No throat pain Respiratory: see HPI, cough, phlegm Cardiovascular: no symptoms reported; No chest pain, No edema, No palpitations, No syncope Gastrointestinal: no symptoms reported Genitourinary: no symptoms reported Musculoskeletal: no symptoms reported Skin: no symptoms reported Psychiatric/Neurological: No Symptoms Reported Hematologic/Lymphatic: No Symptoms Reported Immunological/Allergic: no symptoms reported Past Onrsqdu-Todnae-Sykolv Hx Past Med/Social Hx: Reviewed and Corrections made Patient Social History Alcohol Use: Rarely Uses Recreational Drug Use: No Smoking Status: Former Smoker (> 2 PPD) Former Smoker, Quit: Apr 30, 1987 2nd Hand Smoke Exposure: No Recent Foreign Travel: No Contact w/Someone Who Travel: No Recent Infectious Disease Expo: No Recent Hopitalizations: Yes Immunizations Up To Date Date of Pneumonia Vaccine: May 05, 2017 Date of Influenza Vaccine: Apr 20, 2017 Seasonal Allergies Seasonal Allergies: Yes Past Medical History Surgeries: Yes (ROTATOR CUFF REPAIR; LEFT BREAST BIOPSY/LUMPECTOMY) Breast, Hysterectomy, Lumpectomy, Orthopedic Respiratory: Yes (O2 AT 2L/NC CONTINUOUSLY) Pneumonia, COPD Currently Using CPAP: No Currently Using BIPAP: No Cardiac: Yes Deep Vein Thrombosis, High Cholesterol, Hypertension Neurological: Yes (SUBARACHNOID BLEED DURING CHEMO-THROMBOCYTOPNEIA) Reproductive Disorders: No Female Reproductive Disorders: Denies 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, 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 Sexually Transmitted Disease: No HIV/AIDS: No Genitourinary: Yes Bladder Infection Gastrointestinal: Yes Gastroesophageal Reflux, Chronic Diarrhea Musculoskeletal: Yes (ROTATOR CUFF SURGERY) Osteoporosis, Chronic Back Pain Endocrine: No HEENT: Yes Cataract Loss of Vision: Denies Cancer: Yes (MULTIPLE MYELOMA) Breast Did You Recieve Any Treatments: Yes (TANDEM BONE MARROW TRANSPLANTS ) What Type of Treatment Did You: Chemotherapy, Radiation, Surgical Intervention, Other Psychosocial: Yes Anxiety, Schizophrenia, Depression Integumentary: No 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 Physical Exam Vital Signs - First Documented 11/16/19 08:50 Temp 36.8 Pulse 91 Resp 16 B/P (MAP) 146/71 (96) Pulse Ox 93 Capillary Refill : Less Than 3 Seconds Height: 5'0.00" Weight: 152lbs. 9.0oz. 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, no motor/sensory deficits, alert, normal mood/affect, oriented x 3 Skin: normal color, warm/dry; No rash Focused Exam Lactate Level 11/16/19 09:12: Lactic Acid Level 0.88 Lactic Acid Level Laboratory Tests Test 11/16/19 09:12 Lactic Acid Level 0.88 MMOL/L (0.50-2.00) Procedures/Interventions Date of ETT Placement: Sep 15, 2017 Time of ETT Placement: 658 Progress/Results/Core Measures Suspected Sepsis Recent Fever Within 48 Hours: No Infection Criteria Present: None New/Unexplained Altered Menta: No Sepsis Screen: No Definite Risk SIRS Temperature: Pulse: 91 Respiratory Rate: 16 Laboratory Tests 11/16/19 09:12: White Blood Count 3.6L Blood Pressure 146 /71 Mean: 96 11/16/19 09:12: Lactic Acid Level 0.88 Laboratory Tests 11/16/19 09:12: Creatinine 1.15, INR Comment 0.9, Platelet Count 175, Total Bilirubin 0.7 Results/Orders Lab Results Laboratory Tests Test 11/16/19 09:12 11/16/19 09:30 11/16/19 10:14 Range/Units White Blood Count 3.6 L 4.3-11.0 10^3/uL Red Blood Count 3.78 L 4.35-5.85 10^6/uL Hemoglobin 11.8 11.5-16.0 G/DL Hematocrit 37 35-52 % Mean Corpuscular Volume 97 80-99 FL Mean Corpuscular Hemoglobin 31 25-34 PG Mean Corpuscular Hemoglobin Concent 32 32-36 G/DL Red Cell Distribution Width 15.2 H 10.0-14.5 % Platelet Count 175 130-400 10^3/uL Mean Platelet Volume 9.5 7.4-10.4 FL Neutrophils (%) (Auto) 43 42-75 % Lymphocytes (%) (Auto) 23 12-44 % Monocytes (%) (Auto) 32 H 0-12 % Eosinophils (%) (Auto) 2 0-10 % Basophils (%) (Auto) 1 0-10 % Neutrophils # (Auto) 1.6 L 1.8-7.8 X 10^3 Lymphocytes # (Auto) 0.8 L 1.0-4.0 X 10^3 Monocytes # (Auto) 1.2 H 0.0-1.0 X 10^3 Eosinophils # (Auto) 0.1 0.0-0.3 10^3/uL Basophils # (Auto) 0.0 0.0-0.1 10^3/uL Neutrophils % (Manual) 43 % Lymphocytes % (Manual) 27 % Monocytes % (Manual) 29 % Eosinophils % (Manual) 1 % Blood Morphology Comment NORMAL Erythrocyte Sedimentation Rate 36 H 0-30 MM/HR Prothrombin Time 12.3 12.2-14.7 SEC INR Comment 0.9 0.8-1.4 Activated Partial Thromboplast Time 28 24-35 SEC D-Dimer 0.86 H 0.00-0.49 UG/ML Sodium Level 134 L 135-145 MMOL/L Potassium Level 4.7 3.6-5.0 MMOL/L Chloride Level 101 98-107 MMOL/L Carbon Dioxide Level 23 21-32 MMOL/L Anion Gap 10 5-14 MMOL/L Blood Urea Nitrogen 12 7-18 MG/DL Creatinine 1.15 0.60-1.30 MG/DL Estimat Glomerular Filtration Rate 46 BUN/Creatinine Ratio 10 Glucose Level 115 H 70-105 MG/DL Lactic Acid Level 0.88 0.50-2.00 MMOL/L Calcium Level 8.4 L 8.5-10.1 MG/DL Corrected Calcium 8.5 8.5-10.1 MG/DL Magnesium Level 1.7 1.6-2.4 MG/DL Total Bilirubin 0.7 0.1-1.0 MG/DL Aspartate Amino Transf (AST/SGOT) 15 5-34 U/L Alanine Aminotransferase (ALT/SGPT) 11 0-55 U/L Alkaline Phosphatase 59 40-136 U/L Lactate Dehydrogenase 135 125-220 U/L Total Creatine Kinase 55 29-168 U/L Myoglobin 47.6 10.0-92.0 NG/ML Troponin I < 0.028 <0.028 NG/ML B-Type Natriuretic Peptide 63.0 <100.0 PG/ML Total Protein 7.4 6.4-8.2 GM/DL Albumin 3.9 3.2-4.5 GM/DL Procalcitonin 0.06 <0.10 NG/ML Urine Color YELLOW Urine Clarity SL CLOUDY Urine pH 6.0 5-9 Urine Specific [place] 1.010 L 1.016-1.022 Urine Protein TRACE H NEGATIVE Urine Glucose (UA) NEGATIVE NEGATIVE Urine Ketones NEGATIVE NEGATIVE Urine Nitrite NEGATIVE NEGATIVE Urine Bilirubin NEGATIVE NEGATIVE Urine Urobilinogen 0.2 < = 1.0 MG/DL Urine Leukocyte Esterase 3+ H NEGATIVE Urine RBC (Auto) 2+ H NEGATIVE Urine RBC NONE /HPF Urine WBC 50-100 H /HPF Urine Squamous Epithelial Cells 2-5 /HPF Urine Crystals NONE /LPF Urine Bacteria FEW H /HPF Urine Casts NONE /LPF Urine Mucus NEGATIVE /LPF Urine Culture Indicated YES Micro Results Microbiology 11/16/19 Influenza Types A,B Antigen (ARMANDO) - Final, Complete My Orders Orders - LEX CASTILLO DO Ed Iv/Invasive Line Start (11/16/19 08:43) Ekg Tracing (11/16/19 08:43) O2 (11/16/19 08:43) Monitor-Rhythm Ecg Trace Only (11/16/19 08:43) Chest 1 View, Ap/Pa Only (11/16/19 08:43) BNP (11/16/19 08:43) Cbc With Automated Diff (11/16/19 08:43) Comprehensive Metabolic Panel (11/16/19 08:43) Creatine Kinase (11/16/19 08:43) Lactic Acid Analyzer (11/16/19 08:43) Magnesium (11/16/19 08:43) Procalcitonin (Pct) (11/16/19 08:43) Protime With Inr (11/16/19 08:43) Partial Thromboplastin Time (11/16/19 08:43) Ua Culture If Indicated (11/16/19 08:43) Blood Culture (11/16/19 08:43) Influenza A And B Antigens (11/16/19 08:43) Erythrocyte Sedimentation Rate (11/16/19 08:43) Myoglobin Serum (11/16/19 08:43) Troponin I (11/16/19 08:43) Fibrin Degradation Products (11/16/19 08:43) LDH (11/16/19 08:43) Coronavirus Sars-Cov-2 So 2018 (11/16/19 08:43) Adenovirus Detection By Pcr (11/16/19 08:43) Parainfluenza Virus 1,2,3 Pcr (11/16/19 08:43) Ferritin (11/16/19 08:43) Albuterol Inhaler (Proair Hfa) (11/16/19 09:15) Sputum Culture (11/16/19 09:09) Manual Differential (11/16/19 09:12) Rx-Albuterol Inhaler (Rx-Proair) (11/16/19 09:38) Rx-Albuterol Inhaler (Rx-Proair) (11/16/19 09:31) Urine Culture (11/16/19 10:14) Ceftriaxone For Iv Use (Rocephin For I (11/16/19 11:15) Azithromycin Injection (Zithromax Inject (11/16/19 11:15) Methylprednisolone Sod Succ (Solu-Medrol (11/16/19 11:15) Medications Given in ED Current Medications Medications Dose Ordered Sig/Emilee Route Start Time Stop Time Status Last Admin Dose Admin Azithromycin 500 mg/Sodium Chloride 250 ml @ 250 mls/hr ONCE ONCE IV 11/16/19 11:15 11/16/19 12:14 DC 11/16/19 11:35 250 MLS/HR Ceftriaxone Sodium 1000 mg/ Sterile Water 10 ml @ 200 mls/hr ONCE ONCE IV 11/16/19 11:15 11/16/19 11:17 DC 11/16/19 11:29 200 MLS/HR Methylprednisolone Sodium Succinate 125 mg ONCE ONCE IVP 11/16/19 11:15 11/16/19 11:16 DC 11/16/19 11:29 125 MG Vital Signs/I&O 11/16/19 11/16/19 11/16/19 11/16/19 08:50 08:50 08:50 12:41 Temp 36.8 Pulse 91 82 Resp 16 16 B/P (MAP) 146/71 (96) 124/64 Pulse Ox 93 98 O2 Delivery Nasal Cannula Nasal Cannula Room Air Room Air O2 Flow Rate 2.00 2.00 Capillary Refill : Less Than 3 Seconds Blood Pressure Mean: 96 Progress Note : Progress Note PT SEEN IN COVID UNIT AND PPE WORN AT ALL TIMES UNEVENTFUL STAY GIVEN INHALER TREATMENT WITH SOME IMPROVEMENT IN LUNG SOUNDS ECG Initial ECG Impression Date: Nov 16, 2019 Initial ECG Impression Time: 09:20 Initial ECG Rate: 96 Initial ECG Rhythm: Normal Sinus Diagnostic Imaging Comments CXR--PER RADIOLOGIST REPORT AT 1100 FINDINGS: On the prior exam, there are extensive multifocal bilateral infiltrates which have largely resolved. Some mild opacity in the lung bases greater left is probably partial atelectasis given the suboptimal inspiratory expansion of the lungs. IMPRESSION: Central clearance of bilateral infiltrates, residual or recurrent basilar opacity favored to be partial atelectasis. No overt failure pattern or acute pleural pathology. Reviewed: Reviewed by Me Departure Communication (Admissions) 1106--SPOKE WITH DR. PIERRE, SHE ADVISES TO SEND PT HOME AT THIS TIME. Impression Primary Impression: COPD exacerbation Additional Impressions: Bronchitis UTI (urinary tract infection) Disposition: HOME, SELF-CARE Condition: Stable Departure-Patient Inst. Referrals: ORTEGA PIERRE MD (PCP/Family) Primary Care Physician Patient Instructions: Exacerbation of COPD (DC), Acute Bronchitis, Adult (DC), Urinary Tract Infection, Adult (DC) Add. Discharge Instructions: USE YOUR NEBULIZER EVERY 4 HOURS!!! LOTS OF CLEAR LIQUIDS TYLENOL NEEDED FOR PAIN OR FEVER FOLLOW UP WITH DR. PIERRE IN 3-4 DAYS IF NO BETTER, RETURN TO ER IF WORSE All discharge instructions reviewed with patient and/or family. Voiced understanding. Scripts Guaifenesin/Dextromethorphan (Mucinex Dm ER 1,200-60 mg Tab) 1 Each Tbmp.12hr 1 EACH PO BID, #20 EA Prov: LEX CASTILLO DO 11/16/19 Ipratropium/Albuterol Sulfate (Iprat-Albut 0.5-3(2.5) mg/3 ml) 3 Ml Ampul.neb 3 ML IH Q4H PRN for SHORTNESS OF BREATH, #1 EACH Prov: LEX CASTILLO DO 11/16/19 Budesonide (Pulmicort) 1 Mg/2 Ml Ampul.neb 1 MG IH BID, #1 EA Prov: LEX CASTILLO DO 11/16/19 Cefdinir (Cefdinir) 300 Mg Capsule 300 MG PO BID, #20 CAP Prov: LEX CASTILLO DO 11/16/19 LEX CASTILLO DO Nov 16, 2019 09:20
[2019-11-16] MEDS ORDERED: RX-ALBUTEROL INHALER (PROAIR) 8.5 GM IH ONE (09:31)
[2019-11-16 09:34] LABS: BASOPHILS % (AUTO) 1 % (0-10); EOSINOPHILS # (AUTO) 0.1 10^3/uL (0.0-0.3); EOSINOPHILS % (AUTO) 2 % (0-10); HEMATOCRIT 37 % (35-52); HEMOGLOBIN 11.8 G/DL (11.5-16.0); LYMPHOCYTES # (AUTO) 0.8 X 10^3 (1.0-4.0); LYMPHOCYTES % (AUTO) 23 % (12-44); MEAN CORPUSCULAR HEMOGLOBIN 31 PG (25-34); MEAN CORPUSCULAR HGB CONC 32 G/DL (32-36); MEAN CORPUSCULAR VOLUME 97 FL (80-99); MEAN PLATELET VOLUME 9.5 FL (7.4-10.4); MONOCYTES # (AUTO) 1.2 X 10^3 (0.0-1.0); MONOCYTES % (AUTO) 32 % (0-12); NEUTROPHILS # (AUTO) 1.6 X 10^3 (1.8-7.8); NEUTROPHILS % (AUTO) 43 % (42-75); PLATELET COUNT 175 10^3/uL (130-400); RED CELL DISTRIBUTION WIDTH 15.2 % (10.0-14.5); WHITE BLOOD COUNT 3.6 10^3/uL (4.3-11.0)
[2019-11-16] MEDS ORDERED: RX-ALBUTEROL INHALER (PROAIR) 8.5 GM IH STA (09:38)
[2019-11-16 09:50] LABS: ALANINE AMINOTRANSFERASE 11 U/L (0-55); ALBUMIN 3.9 GM/DL (3.2-4.5); ALKALINE PHOSPHATASE 59 U/L (40-136); BILIRUBIN,TOTAL 0.7 MG/DL (0.1-1.0); BUN/CREATININE RATIO 10; CALCIUM 8.4 MG/DL (8.5-10.1); CARBON DIOXIDE 23 MMOL/L (21-32); CHLORIDE 101 MMOL/L (98-107); CREATINE KINASE 55 U/L (29-168); CREATININE SERUM 1.15 MG/DL (0.60-1.30); FIBRIN DEGRADATION PRODUCTS 0.86 UG/ML (0.00-0.49); GFR ESTIMATED 46; GLUCOSE 115 MG/DL (70-105); INR 0.9 (0.8-1.4); MAGNESIUM 1.7 MG/DL (1.6-2.4); POTASSIUM 4.7 MMOL/L (3.6-5.0); PROTHROMBIN TIME PATIENT 12.3 SEC (12.2-14.7); SODIUM 134 MMOL/L (135-145); TOTAL PROTEIN 7.4 GM/DL (6.4-8.2)
--- NOTE | 2019-11-16 10:00 | NUR ---
DENIES NEEDS AT THIS TIME.
[2019-11-16 10:12] LABS: ERYTHROCYTE SEDIMENTATION RATE 36 MM/HR (0-30)
[2019-11-16 10:14] LABS: EOSINOPHILS % (MANUAL) 1 %; LYMPHOCYTES % (MANUAL) 27 %; MONOCYTES % (MANUAL) 29 %; NEUTROPHILS % (MANUAL) 43 %; RBC MORPH NORMAL
[2019-11-16 10:32] LABS: BILIRUBIN,URINE NEGATIVE (NEGATIVE); CLARITY,URINE SL CLOUDY; COLOR,URINE YELLOW; GLUCOSE, URINE (UA) NEGATIVE (NEGATIVE); KETONES,URINE NEGATIVE (NEGATIVE); LEUKOCYTE ESTERASE ,URINE 3+ (NEGATIVE); NITRITE,URINE NEGATIVE (NEGATIVE); PROTEIN,URINE TRACE (NEGATIVE)
[2019-11-16 10:48] LABS: BACTERIA,URINE FEW /HPF; WBC,URINE 50-100 /HPF
--- NOTE | 2019-11-16 10:54 | Diagnostic Imaging Report ---
INDICATION: Cough, cold, and flu-like symptoms. FINDINGS: On the prior exam, there are extensive multifocal bilateral infiltrates which have largely resolved. Some mild opacity in the lung bases greater left is probably partial atelectasis given the suboptimal inspiratory expansion of the lungs. IMPRESSION: Central clearance of bilateral infiltrates, residual or recurrent basilar opacity favored to be partial atelectasis. No overt failure pattern or acute pleural pathology. Dictated by: Dictated on workstation # [id number]
--- NOTE | 2019-11-16 11:00 | NUR ---
NOTIIFED OF DR'S PLANS FOR ABX AND DISCHARGE. DENIES NEEDS AT THIS TIME.
[2019-11-16] MEDS ORDERED: methylPREDNISolone 125 MG (Solu-MEDROL) VIAL IVP ONE (11:15)
[2019-11-16] MEDS ORDERED: cefTRIAXone FOR IV USE 1,000 MG in WATER (STERILE) FOR INJECTION 10 ML IV ONE (11:15)
[2019-11-16] MEDS ORDERED: AZITHROMYCIN INJECTION 500 MG in NS (IVPB) 250 ML IV ONE (11:15)
[2019-11-16] MEDS ORDERED: CEFD300C3 PO (11:23)
[2019-11-16] MEDS ORDERED: BUDE1AMP IH (11:23)
[2019-11-16] MEDS ORDERED: IPRA3AMP31 IH (11:23)
[2019-11-16] MEDS ORDERED: GUAI-365 PO (11:23)
[2019-11-16] MEDS ORDERED: GUAI1TBM19 PO (11:25)
[2019-11-16 12:41] VITALS: BP 124/64
[2019-11-17 12:35] LABS: PARAINFLU 1 PCR Not Detected (Not Detected); PARAINFLU 2 PCR Not Detected (Not Detected)
== END 2019-11-16 12:41 | disposition home or self-care (01) ==
LOC: EDUNIT# 08:28 → ER 08:38
DX: J44.1 Chronic obstructive pulmonary disease with (acute) exacerbation (principal); N39.0 Urinary tract infection, site not specified; I10 Essential (primary) hypertension; E78.00 Pure hypercholesterolemia, unspecified; K21.9 Gastro-esophageal reflux disease without esophagitis; F41.9 Anxiety disorder, unspecified; F32.9 Major depressive disorder, single episode, unspecified; F20.9 Schizophrenia, unspecified; D64.9 Anemia, unspecified; Z85.3 Personal history of malignant neoplasm of breast; Z79.82 Long term (current) use of aspirin; Z87.891 Personal history of nicotine dependence; Z99.81 Dependence on supplemental oxygen; Z82.49 Family history of ischemic heart disease and other diseases of the circulatory system
CPT/HCPCS: 36415; 71045; 80053; 81000; 82550; 82728; 83605; 83615; 83735; 83874; 83880; 84145; 84484; 85007; 85027; 85379; 85610; 85652; 85730; 87040; 87070; 87077; 87088; 87205; 87631; 87635; 87798; 87804; 93005; 93041

== ENCOUNTER → 2019-12-27 | Outpatient (CLI) | payer MEDICARE, OTHER ==
[~2019-12-27] MED LIST changes: +BUDE1AMP IH; +CEFD300C3 PO; +GUAI-365 PO; +GUAI1TBM19 PO; +HOLD METFORMIN - RECEIVED CONTRAST 20 ML VIAL IV SCH; +IOHEXOL 350 MG/ML 100 ML (OMNIPAQUE 350) VIAL IV ONE; +IPRA3AMP31 IH; +NS 100 ML (IVPB) BAG IV ONE
[2019-12-27 08:00] LABS: CREATININE SERUM 1.12 MG/DL (0.60-1.30)
--- NOTE | 2019-12-27 09:17 | Diagnostic Imaging Report ---
INDICATION: Dyspnea, cough, and pneumonia. TECHNIQUE: Multiple contiguous axial images were obtained through the chest after administration of intravenous contrast. Auto Exposure Controls were utilized during the CT exam to meet ALARA standards for radiation dose reduction. COMPARISON: Prior chest CT of 06/25/2019. FINDINGS: There are no enlarged mediastinal or hilar nodes. There is cardiomegaly. There are no enlarged axillary nodes. Injection was made from the left arm and the left innominate vein appears to be diffusely small with numerous collateral vessels visualized over the chest. There is no pleural or pericardial fluid. There is a moderate sized hiatal hernia. Lung parenchymal windows demonstrate scattered areas of parenchymal scarring in both lungs which appears similar to the prior study. There is a focal area of bronchiectatic change in the lingular region. There is no new discrete mass or consolidation. Bony windows demonstrate numerous hemangiomas in the thoracic spine as well as multiple previous compression deformities with previous T8 kyphoplasty. IMPRESSION: Stable areas of parenchymal scarring in both lungs with some focal scarring and bronchiectatic change in the lingular region, appearing similar to the prior study. There is no new consolidation or discrete mass. There is cardiomegaly. There is no change in the hiatal hernia. There is narrowing of the left innominate vein with numerous collaterals over the chest wall which appeared similar on the prior study. Dictated by: Dictated on workstation # [id number]
== END ==
LOC: RAD 07:30
PROVIDERS: ATTEND Nurse Practitioner Family
DX: J98.4 Other disorders of lung (principal); J18.9 Pneumonia, unspecified organism; I51.7 Cardiomegaly; I87.1 Compression of vein
CPT/HCPCS: 36415; 71260; 82565; 84520

== ENCOUNTER 2020-02-10 09:04 | Outpatient (RCR) | payer MEDICARE, OTHER ==
[2019-11-18 11:54] LABS: BASOPHILS % (AUTO) 0 % (0-10); EOSINOPHILS # (AUTO) 0.1 10^3/uL (0.0-0.3); EOSINOPHILS % (AUTO) 3 % (0-10); HEMATOCRIT 36 % (35-52); HEMOGLOBIN 11.4 G/DL (11.5-16.0); LYMPHOCYTES # (AUTO) 1.2 X 10^3 (1.0-4.0); LYMPHOCYTES % (AUTO) 24 % (12-44); MEAN CORPUSCULAR HEMOGLOBIN 31 PG (25-34); MEAN CORPUSCULAR HGB CONC 32 G/DL (32-36); MEAN CORPUSCULAR VOLUME 97 FL (80-99); MEAN PLATELET VOLUME 9.5 FL (7.4-10.4); MONOCYTES # (AUTO) 0.9 X 10^3 (0.0-1.0); MONOCYTES % (AUTO) 18 % (0-12); NEUTROPHILS # (AUTO) 2.9 X 10^3 (1.8-7.8); NEUTROPHILS % (AUTO) 56 % (42-75); PLATELET COUNT 207 10^3/uL (130-400); RED CELL DISTRIBUTION WIDTH 15.3 % (10.0-14.5); WHITE BLOOD COUNT 5.2 10^3/uL (4.3-11.0)
[2019-11-18 12:13] LABS: ALBUMIN 3.8 GM/DL (3.2-4.5); BILIRUBIN,TOTAL 0.4 MG/DL (0.1-1.0); CALCIUM 8.4 MG/DL (8.5-10.1); CREATININE SERUM 1.03 MG/DL (0.60-1.30); POTASSIUM 4.4 MMOL/L (3.6-5.0); TOTAL PROTEIN 7.1 GM/DL (6.4-8.2)
[~2020-02-10 09:04] MED LIST changes: -HOLD METFORMIN - RECEIVED CONTRAST 20 ML VIAL IV SCH; -IOHEXOL 350 MG/ML 100 ML (OMNIPAQUE 350) VIAL IV ONE; +MULT-567 PO; -MULT1TAB69 PO; -NS 100 ML (IVPB) BAG IV ONE
[2020-02-10 09:22] LABS: BASOPHILS % (AUTO) 0 % (0-10); EOSINOPHILS # (AUTO) 0.1 10^3/uL (0.0-0.3); EOSINOPHILS % (AUTO) 4 % (0-10); HEMATOCRIT 37 % (35-52); HEMOGLOBIN 12.3 G/DL (11.5-16.0); LYMPHOCYTES # (AUTO) 1.2 X 10^3 (1.0-4.0); LYMPHOCYTES % (AUTO) 40 % (12-44); MEAN CORPUSCULAR HEMOGLOBIN 32 PG (25-34); MEAN CORPUSCULAR HGB CONC 33 G/DL (32-36); MEAN CORPUSCULAR VOLUME 96 FL (80-99); MEAN PLATELET VOLUME 9.5 FL (7.4-10.4); MONOCYTES # (AUTO) 0.6 X 10^3 (0.0-1.0); MONOCYTES % (AUTO) 19 % (0-12); NEUTROPHILS # (AUTO) 1.2 X 10^3 (1.8-7.8); NEUTROPHILS % (AUTO) 37 % (42-75); PLATELET COUNT 182 10^3/uL (130-400); RED CELL DISTRIBUTION WIDTH 14.8 % (10.0-14.5); WHITE BLOOD COUNT 3.1 10^3/uL (4.3-11.0)
[2020-02-10 09:41] LABS: ALBUMIN 3.8 GM/DL (3.2-4.5); BILIRUBIN,TOTAL 0.8 MG/DL (0.1-1.0); CALCIUM 9.5 MG/DL (8.5-10.1); CREATININE SERUM 1.16 MG/DL (0.60-1.30); POTASSIUM 4.3 MMOL/L (3.6-5.0); TOTAL PROTEIN 7.1 GM/DL (6.4-8.2)
== END 2020-02-16 | disposition home or self-care (01) ==
LOC: ONC 09:04
PROVIDERS: ATTEND Internal Medicine Hematology & Oncology
DX: D63.1 Anemia in chronic kidney disease (principal); N18.3 Chronic kidney disease, stage 3 (moderate)
CPT/HCPCS: 36591; 80053; 82232; 82306; 82728; 82784; 83883; 85025; 96523

== ENCOUNTER 2020-05-04 10:00 | Outpatient (RCR) | payer MEDICARE, OTHER ==
[~2020-05-04 10:00] MED LIST changes: +ASPI-1238 PO; -ASPI-983 PO; -CALC-6 PO; +CALC1TAB84 PO; +DENOSUMAB 60 MG/1 ML (PROLIA) CANCER CTR SQ SCH
== END 2020-05-24 | disposition home or self-care (01) ==
LOC: ONC 10:00
PROVIDERS: ATTEND Internal Medicine Hematology & Oncology
DX: N18.30 Chronic kidney disease, stage 3 unspecified (principal); D63.1 Anemia in chronic kidney disease; J98.4 Other disorders of lung; R91.8 Other nonspecific abnormal finding of lung field; M85.80 Other specified disorders of bone density and structure, unspecified site; C90.00 Multiple myeloma not having achieved remission; C50.912 Malignant neoplasm of unspecified site of left female breast; Z92.21 Personal history of antineoplastic chemotherapy
CPT/HCPCS: 96372; G0463; 96523

== ENCOUNTER 2020-06-14 08:09 | Outpatient (RCR) | payer MEDICARE, OTHER ==
[~2020-06-14 08:09] MED LIST changes: -DENOSUMAB 60 MG/1 ML (PROLIA) CANCER CTR SQ SCH
[2020-06-14 08:28] LABS: BASOPHILS % (AUTO) 1 % (0-10); EOSINOPHILS # (AUTO) 0.1 10^3/uL (0.0-0.3); EOSINOPHILS % (AUTO) 3 % (0-10); HEMATOCRIT 37 % (35-52); HEMOGLOBIN 12.1 g/dL (11.5-16.0); LYMPHOCYTES # (AUTO) 1.5 10^3/uL (1.0-4.0); LYMPHOCYTES % (AUTO) 35 % (12-44); MEAN CORPUSCULAR HEMOGLOBIN 32 pg (25-34); MEAN CORPUSCULAR HGB CONC 32 g/dL (32-36); MEAN CORPUSCULAR VOLUME 100 fL (80-99); MEAN PLATELET VOLUME 9.7 fL (9.0-12.2); MONOCYTES % (AUTO) 23 % (0-12); NEUTROPHILS # (AUTO) 1.6 10^3/uL (1.8-7.8); NEUTROPHILS % (AUTO) 38 % (42-75); PLATELET COUNT 190 10^3/uL (130-400); WHITE BLOOD COUNT 4.2 10^3/uL (4.3-11.0)
[2020-06-14 08:51] LABS: BILIRUBIN,TOTAL 0.5 MG/DL (0.1-1.0); CALCIUM 9.1 MG/DL (8.5-10.1); CREATININE SERUM 1.13 MG/DL (0.60-1.30); POTASSIUM 4.5 MMOL/L (3.6-5.0); TOTAL PROTEIN 7.2 GM/DL (6.4-8.2)
== END 2020-07-24 15:58 | disposition home or self-care (01) ==
LOC: ONC 08:09
PROVIDERS: ATTEND Internal Medicine Hematology & Oncology
DX: C90.00 Multiple myeloma not having achieved remission (principal); D63.1 Anemia in chronic kidney disease; N18.30 Chronic kidney disease, stage 3 unspecified; J98.4 Other disorders of lung; M85.80 Other specified disorders of bone density and structure, unspecified site; C50.912 Malignant neoplasm of unspecified site of left female breast; E78.00 Pure hypercholesterolemia, unspecified; E03.9 Hypothyroidism, unspecified; K21.9 Gastro-esophageal reflux disease without esophagitis; Z79.811 Long term (current) use of aromatase inhibitors; Z92.3 Personal history of irradiation; Z90.12 Acquired absence of left breast and nipple; Z92.21 Personal history of antineoplastic chemotherapy
CPT/HCPCS: 36591; 80053; 82232; 82784; 83883; 85025

== ENCOUNTER 2020-09-19 10:01 | Outpatient (RCR) | payer MEDICARE, OTHER ==
[2020-09-19 10:40] LABS: BASOPHILS % (AUTO) 1 % (0-10); EOSINOPHILS # (AUTO) 0.1 10^3/uL (0.0-0.3); EOSINOPHILS % (AUTO) 4 % (0-10); HEMATOCRIT 37 % (35-52); LYMPHOCYTES # (AUTO) 1.4 10^3/uL (1.0-4.0); MEAN CORPUSCULAR HEMOGLOBIN 34 pg (25-34); MEAN CORPUSCULAR VOLUME 102 fL (80-99); MEAN PLATELET VOLUME 9.8 fL (9.0-12.2); MONOCYTES # (AUTO) 0.7 10^3/uL (0.0-1.0); MONOCYTES % (AUTO) 21 % (0-12); NEUTROPHILS # (AUTO) 1.3 10^3/uL (1.8-7.8)
[2020-09-19 10:46] LABS: HEMOGLOBIN 12.4 g/dL (11.5-16.0); LYMPHOCYTES % (AUTO) 38 % (12-44); MEAN CORPUSCULAR HGB CONC 34 g/dL (32-36); NEUTROPHILS % (AUTO) 37 % (42-75); PLATELET COUNT 171 10^3/uL (130-400); WHITE BLOOD COUNT 3.6 10^3/uL (4.3-11.0)
[2020-09-19 11:10] LABS: BILIRUBIN,TOTAL 0.6 MG/DL (0.1-1.0); CALCIUM 9.2 MG/DL (8.5-10.1); CREATININE SERUM 1.2 MG/DL (0.60-1.30); POTASSIUM 4.6 MMOL/L (3.6-5.0); TOTAL PROTEIN 7.3 GM/DL (6.4-8.2)
[2020-09-19] MEDS ORDERED: DENOSUMAB 60 MG/1 ML (PROLIA) CANCER CTR SQ SCH (12:37)
== END 2020-10-25 | disposition home or self-care (01) ==
LOC: ONC 10:01
PROVIDERS: ATTEND Internal Medicine Hematology & Oncology
DX: C90.00 Multiple myeloma not having achieved remission (principal); D63.1 Anemia in chronic kidney disease; N18.30 Chronic kidney disease, stage 3 unspecified; C50.412 Malignant neoplasm of upper-outer quadrant of left female breast; J98.4 Other disorders of lung; M85.80 Other specified disorders of bone density and structure, unspecified site; C50.912 Malignant neoplasm of unspecified site of left female breast; E78.00 Pure hypercholesterolemia, unspecified; E03.9 Hypothyroidism, unspecified; K21.9 Gastro-esophageal reflux disease without esophagitis; Z79.811 Long term (current) use of aromatase inhibitors; Z92.3 Personal history of irradiation; Z90.12 Acquired absence of left breast and nipple; Z92.21 Personal history of antineoplastic chemotherapy
CPT/HCPCS: 36591; 80053; 82232; 82784; 83883; 85025; 96372; 96523

== ENCOUNTER → 2020-09-19 | Outpatient (CLI) | payer MEDICARE, OTHER ==
[~2020-09-19] MED LIST changes: -OXYC-471 PO; +OXYC1TAB11 PO
[2020-09-19 10:41] LABS: BASOPHILS % (AUTO) 1 % (0-10); EOSINOPHILS # (AUTO) 0.1 10^3/uL (0.0-0.3); EOSINOPHILS % (AUTO) 4 % (0-10); HEMATOCRIT 37 % (35-52); HEMOGLOBIN 12.4 g/dL (11.5-16.0); LYMPHOCYTES # (AUTO) 1.4 10^3/uL (1.0-4.0); LYMPHOCYTES % (AUTO) 38 % (12-44); MEAN CORPUSCULAR HEMOGLOBIN 34 pg (25-34); MEAN CORPUSCULAR HGB CONC 34 g/dL (32-36); MEAN CORPUSCULAR VOLUME 102 fL (80-99); MEAN PLATELET VOLUME 9.8 fL (9.0-12.2); MONOCYTES # (AUTO) 0.7 10^3/uL (0.0-1.0); MONOCYTES % (AUTO) 21 % (0-12); NEUTROPHILS # (AUTO) 1.3 10^3/uL (1.8-7.8); NEUTROPHILS % (AUTO) 37 % (42-75); PLATELET COUNT 171 10^3/uL (130-400); WHITE BLOOD COUNT 3.6 10^3/uL (4.3-11.0)
[2020-09-19 11:08] LABS: BILIRUBIN,TOTAL 0.6 MG/DL (0.1-1.0); CALCIUM 9.4 MG/DL (8.5-10.1); CREATININE SERUM 1.2 MG/DL (0.60-1.30); POTASSIUM 4.6 MMOL/L (3.6-5.0); TOTAL PROTEIN 7.3 GM/DL (6.4-8.2)
[2020-09-19 11:31] LABS: FREE T4 (FREE THYROXINE) 1.2 NG/DL (0.70-1.48)
== END ==
LOC: LAB 10:05
PROVIDERS: ATTEND Family Medicine
DX: E03.9 Hypothyroidism, unspecified (principal); E55.9 Vitamin D deficiency, unspecified
CPT/HCPCS: 36415; 80053; 80061; 82306; 84439; 84443; 85025

== ENCOUNTER 2021-01-23 07:40 | Outpatient (RCR) | payer MEDICARE, OTHER ==
[~2021-01-23 07:40] MED LIST changes: -CATHETER FLUSH 10 ML SYR IV PRN; -HOLD METFORMIN - RECEIVED CONTRAST 20 ML VIAL IV SCH; -IOHEXOL 350 MG/ML 100 ML (OMNIPAQUE 350) VIAL IV ONE; -NS 100 ML (IVPB) BAG IV ONE
== END 2021-01-29 | disposition home or self-care (01) ==
LOC: ONC 07:40
PROVIDERS: ATTEND Internal Medicine Hematology & Oncology
DX: Z45.2 Encounter for adjustment and management of vascular access device (principal); C90.00 Multiple myeloma not having achieved remission; C50.412 Malignant neoplasm of upper-outer quadrant of left female breast; D63.1 Anemia in chronic kidney disease; I13.0 Hypertensive heart and chronic kidney disease with heart failure and stage 1 through stage 4 chronic kidney disease, or unspecified chronic kidney disease; J98.4 Other disorders of lung; M85.80 Other specified disorders of bone density and structure, unspecified site; E78.00 Pure hypercholesterolemia, unspecified; F32.9 Major depressive disorder, single episode, unspecified; N18.9 Chronic kidney disease, unspecified; I50.9 Heart failure, unspecified; E87.6 Hypokalemia; D63.0 Anemia in neoplastic disease; J18.9 Pneumonia, unspecified organism; E03.9 Hypothyroidism, unspecified; K21.9 Gastro-esophageal reflux disease without esophagitis; Z79.811 Long term (current) use of aromatase inhibitors; Z92.3 Personal history of irradiation; Z90.12 Acquired absence of left breast and nipple; Z92.21 Personal history of antineoplastic chemotherapy; Z98.890 Other specified postprocedural states; Z78.0 Asymptomatic menopausal state; Z79.891 Long term (current) use of opiate analgesic
CPT/HCPCS: 96523

== ENCOUNTER → 2021-01-23 | Outpatient (CLI) | payer MEDICARE, OTHER ==
[~2021-01-23] MED LIST changes: -ACYC400T PO; +ACYC400T21 PO; +CATHETER FLUSH 10 ML SYR IV PRN; +HOLD METFORMIN - RECEIVED CONTRAST 20 ML VIAL IV SCH; +IOHEXOL 350 MG/ML 100 ML (OMNIPAQUE 350) VIAL IV ONE; +NS 100 ML (IVPB) BAG IV ONE
[2021-01-23 09:07] LABS: CREATININE SERUM 1.15 MG/DL (0.60-1.30)
--- NOTE | 2021-01-23 11:16 | Diagnostic Imaging Report ---
PROCEDURE: CT chest with contrast only. TECHNIQUE: Multiple contiguous axial images were obtained through the chest after administration of intravenous contrast. Auto Exposure Controls were utilized during the CT exam to meet ALARA standards for radiation dose reduction. INDICATION: Disorder of the lungs. COMPARISON: 12/27/2019, 06/25/2019, and 09/14/2017. FINDINGS: The Port-A-Cath is again noted with the hub overlying the left chest. No pathologically enlarged lymph nodes within the chest. No aneurysmal dilatation of the thoracic aorta. The heart is within normal limits in size. No significant pericardial effusion. No pleural effusion. Moderate sized hiatal hernia. No pneumothorax. The left innominate vein again is noted to be diffusely small in size with collateral vessels noted throughout the chest. Parenchymal scarring and fibrosis within the lungs is again noted bilaterally. This is associated with more focal bronchiectatic changes and fibrosis within the lingula extending into the left upper lobe. Overall appearance is similar to the prior examination without new suspicious pulmonary nodule or opacity. Cysts are noted within the bilateral kidneys; however, the cystic lesion within the right kidney demonstrates internal densities although only partially visualized. Nonobstructing right renal calculi. Chronic healed left rib fractures. Post surgical changes within the right shoulder. Multiple compression deformities throughout the thoracic spine appear unchanged from the prior examination. Nondisplaced fracturing of the T7 spinous process is present, appearing new from the prior exam. IMPRESSION: Interval nondisplaced acute to subacute fracturing of the T7 spinous process. Stable areas of parenchymal scarring and fibrosis with scattered bronchiectatic changes as described above without new suspicious pulmonary nodule or opacity. Moderate sized hiatal hernia. Indeterminate right renal hypodensity. This demonstrates some internal densities within it. Recommend a renal ultrasound versus CT of the abdomen with and without contrast using renal mass protocol for further evaluation. Nonobstructing right renal calculi. Additional findings as above. Dictated by: Dictated on workstation # [id number]
== END ==
LOC: RAD 09:45
PROVIDERS: ATTEND Nurse Practitioner Family
DX: J84.10 Pulmonary fibrosis, unspecified (principal); M48.54XA Collapsed vertebra, not elsewhere classified, thoracic region, initial encounter for fracture; K44.9 Diaphragmatic hernia without obstruction or gangrene; N28.1 Cyst of kidney, acquired; N20.0 Calculus of kidney; Z95.828 Presence of other vascular implants and grafts
CPT/HCPCS: 36415; 71260; 82565; 84520

== ENCOUNTER → 2021-03-05 | Outpatient (CLI) | payer MEDICARE ==
[~2021-03-05] MED LIST changes: +RT-ALBUTEROL SULF 2.5 MG/3 ML PRE-MIX VIAL INH ONE
== END ==
LOC: RT 08:00
PROVIDERS: ATTEND Nurse Practitioner Family
DX: J98.4 Other disorders of lung (principal)
CPT/HCPCS: 94060; 94726; 94729

== ENCOUNTER 2021-05-29 09:52 | Outpatient (RCR) | payer MEDICARE, OTHER ==
[2021-03-06 11:13] LABS: BASOPHILS % (AUTO) 1 % (0-10); EOSINOPHILS # (AUTO) 0.1 10^3/uL (0.0-0.3); EOSINOPHILS % (AUTO) 3 % (0-10); HEMATOCRIT 36 % (35-52); HEMOGLOBIN 11.7 g/dL (11.5-16.0); LYMPHOCYTES # (AUTO) 1.2 10^3/uL (1.0-4.0); LYMPHOCYTES % (AUTO) 41 % (12-44); MEAN CORPUSCULAR HEMOGLOBIN 33 pg (25-34); MEAN CORPUSCULAR HGB CONC 33 g/dL (32-36); MEAN CORPUSCULAR VOLUME 101 fL (80-99); MEAN PLATELET VOLUME 9.8 fL (9.0-12.2); MONOCYTES # (AUTO) 0.7 10^3/uL (0.0-1.0); MONOCYTES % (AUTO) 25 % (0-12); NEUTROPHILS # (AUTO) 0.9 10^3/uL (1.8-7.8); NEUTROPHILS % (AUTO) 30 % (42-75); PLATELET COUNT 188 10^3/uL (130-400); WHITE BLOOD COUNT 2.9 10^3/uL (4.3-11.0)
[2021-03-06 11:31] LABS: ALBUMIN 3.6 GM/DL (3.2-4.5); BILIRUBIN,TOTAL 0.7 MG/DL (0.1-1.0); CALCIUM 9.5 MG/DL (8.5-10.1); CREATININE SERUM 0.97 MG/DL (0.60-1.30); POTASSIUM 3.7 MMOL/L (3.6-5.0)
[~2021-05-29 09:52] MED LIST changes: +DENOSUMAB 60 MG/1 ML (PROLIA) CANCER CTR SQ SCH
== END 2021-06-04 | disposition home or self-care (01) ==
LOC: ONC 09:52
PROVIDERS: ATTEND Internal Medicine Hematology & Oncology
DX: Z45.2 Encounter for adjustment and management of vascular access device (principal); C90.00 Multiple myeloma not having achieved remission; C50.412 Malignant neoplasm of upper-outer quadrant of left female breast; E78.00 Pure hypercholesterolemia, unspecified; E03.9 Hypothyroidism, unspecified; E87.6 Hypokalemia; I10 Essential (primary) hypertension; Z79.811 Long term (current) use of aromatase inhibitors; Z92.21 Personal history of antineoplastic chemotherapy; Z92.3 Personal history of irradiation; Z90.12 Acquired absence of left breast and nipple; Z78.0 Asymptomatic menopausal state; Z79.891 Long term (current) use of opiate analgesic
CPT/HCPCS: 80053; 82232; 82784 ×3; 83883; 85025; 96372; G0463; 36591; 96523

== ENCOUNTER → 2021-05-29 | Outpatient (CLI) | payer MEDICARE, OTHER ==
[~2021-05-29] MED LIST changes: -RT-ALBUTEROL SULF 2.5 MG/3 ML PRE-MIX VIAL INH ONE
--- NOTE | 2021-05-29 17:24 | Diagnostic Imaging Report ---
PROCEDURE: US Renal Bilateral. TECHNIQUE: Multiple real-time grayscale images were obtained over the kidneys in various projections bilaterally. INDICATION: Abnormal CT exam There are no prior renal ultrasound examinations available for comparison. The CT chest and abdomen exam performed on 08/25/2017 did note a low-attenuation right renal mass measuring 4.6 cm. This was felt to represent a benign cyst. There was no other abnormality of the kidneys identified. On this exam, the kidneys were difficult to evaluate due to overlying bowel gas. The cyst involving the inferior pole of the right kidney seen on the previous study does measure greater. This cyst is now estimated to be 6.3 x 5.8 x 5.0 cm. This cyst still has a generally benign appearance although it may contain a small amount of internal debris from microscopic hemorrhage/infection. Also, in the interval since the previous exam a similar appearing but much smaller 2.9 x 2.7 x 3.0 cm slightly complicated cyst has developed along the inferior pole of the left kidney. There is still no solid mass identified and there is no sign of hydronephrosis. The renal cortices are normal in thickness and echogenicity. The bladder was imaged during the course of the exam. The bladder is only partially filled and consequently not well evaluated. There is no obvious bladder abnormality evident. Both ureteral jets were noted. A postvoid image was not obtained. IMPRESSION: 1. The large cyst along the inferior pole of right kidney seen previously has increased in size. A new similar-appearing but much smaller cyst has also developed along the inferior pole of the left kidney. Each of these cysts do contain internal echoes suggesting a small amount of infection/hemorrhage. However both of these cysts have a generally benign appearance. 2. There is no solid mass to suggest malignancy and there is no acute abnormality of the kidneys identified. 3. There is no evidence for chronic medical renal disease. 4. The urinary bladder is grossly unremarkable. Dictated by: Dictated on workstation # [id number]
--- NOTE | 2021-05-30 11:19 | Diagnostic Imaging Report ---
Indication: Routine screening Comparison is made with prior mammogram from 07/28/2019 and 07/17/2018. 2-D and 3-D bilateral screening mammography was performed with CAD. A post-therapeutic changes in the left breast with dystrophic calcifications are again noted. This appears stable without evidence of residual or recurrent mass. Benign nodules in the upper outer right breast are stable. No malignant-appearing microcalcifications are seen. Axillae are unremarkable. IMPRESSION: BI-RADS Category 2 No mammographic features suspicious for malignancy are identified. ACR BI-RADS Category 2: Benign findings. Result letter will be mailed to the patient. Note: At least 10% of breast cancer is not imaged by mammography. Dictated by: Dictated on workstation # [id number]
== END ==
LOC: RAD 13:00
PROVIDERS: ATTEND Nurse Practitioner Family
DX: Z12.31 Encounter for screening mammogram for malignant neoplasm of breast (principal); N28.1 Cyst of kidney, acquired
CPT/HCPCS: 76770; 77063; 77067

== ENCOUNTER 2021-07-11 11:26 | Outpatient (RCR) | payer MEDICARE ==
[~2021-07-11 11:26] MED LIST changes: -DENOSUMAB 60 MG/1 ML (PROLIA) CANCER CTR SQ SCH; -FLUO20CA46 PO; +FLUO20CA48 PO; -LEVO500T80 PO; +LEVO500T81 PO; +POTA-169 PO; -POTA20TA8 PO
== END 2021-07-20 | disposition still patient (30) ==
LOC: ONC 11:26
PROVIDERS: ATTEND Internal Medicine Hematology & Oncology
DX: Z45.2 Encounter for adjustment and management of vascular access device (principal); C90.00 Multiple myeloma not having achieved remission; C50.412 Malignant neoplasm of upper-outer quadrant of left female breast; E78.00 Pure hypercholesterolemia, unspecified; E03.9 Hypothyroidism, unspecified; E87.6 Hypokalemia; I10 Essential (primary) hypertension; Z79.811 Long term (current) use of aromatase inhibitors; Z92.21 Personal history of antineoplastic chemotherapy; Z92.3 Personal history of irradiation; Z90.12 Acquired absence of left breast and nipple; Z78.0 Asymptomatic menopausal state; Z79.891 Long term (current) use of opiate analgesic
CPT/HCPCS: 96523

== ENCOUNTER → 2021-09-10 | Outpatient (CLI) | payer MEDICARE, OTHER ==
--- NOTE | 2021-09-10 12:13 | Diagnostic Imaging Report ---
CLINICAL INDICATION: Patient with renal cysts. EXAM: Ultrasound of both kidneys. COMPARISON: Ultrasound of both kidneys dated 05/29/2021. FINDINGS: There is a 6.7 cm x 4.8 cm x 5.0 cm cystic structure involving the inferior aspect of the right kidney. Suspected septation is also again noted which is better seen on today's exam. There is through transmission involving this cystic structure with the appearance of possible debris posteriorly. Previously, this structure measured 6.3 cm x 5.8 cm x 5.0 cm. There is a 3.5 cm x 2.8 cm x 2.8 cm cystic structure involving the inferior portion of the left kidney. Previously this lesion measured 2.9 cm x 2.7 cm x 3.0 cm Both kidneys are normal in size, shape, echogenicity, and cortical thickness without hydronephrosis, stones, or focal lesions with the right and left kidneys measuring 10.2 cm and 7.6 cm in their craniocaudal dimensions, respectively. There is thickening of the bladder wall posteriorly or debris within the bladder posteriorly. Bilateral ureteral jets are noted which is near the area of bladder wall thickening or debris. This is more evident on today's exam. IMPRESSION: 1: Nonspecific lobulated thickening of the posterior wall of the bladder with or without debris. CT scan of the pelvis with delayed contrast in the bladder to better evaluate is suggested. Bilateral ureteral jets are seen. 2: Bilateral renal cysts are again noted. The right renal cyst demonstrates persistent complexity, as described above. Dictated by: Dictated on workstation # [id number]
== END ==
LOC: RAD 09:45
PROVIDERS: ATTEND Urology
DX: N28.1 Cyst of kidney, acquired (principal)
CPT/HCPCS: 76770